=== PATIENT | male | born 1950 | race Caucasian/White ===

== ENCOUNTER → 2017-12-06 16:01 | Outpatient (CLI) | payer OTHER, SELFPAY ==
[2016-11-04 14:48] VITALS: BMI 30.9
== END ==
PROVIDERS: Family Provider Internal Medicine; PCP Internal Medicine; Visit Provider Nurse Practitioner Acute Care
DX: J06.9 Acute upper respiratory infection, unspecified (principal)
CPT/HCPCS: 87070; 87077; 87186; 87205

== ENCOUNTER → 2017-12-13 14:35 | Outpatient (CLI) | payer OTHER, SELFPAY ==
[2016-11-04 14:48] VITALS: BMI 30.9
--- NOTE | 2017-12-13 14:43 | CT_ITS ---
STUDY: CT MAXILLOFACIAL SINUSES REASON FOR EXAM: Male, 67 years old. Follow-up sinusitis RADIATION DOSAGE (If Supplied By Facility): CTDIvol = ( 33.45 ) mGy, DLP = ( 759.64 ) mGycm TECHNIQUE: The patient was scanned in a multi detector CT scanner. High resolution axial imaging was performed without the administration of intravenous contrast material. Sagittal and coronal images were reconstructed. Individualized dose optimization techniques were used for this CT. COMPARISON: April 08, 2017 FINDINGS: FRONTAL SINUSES: There is marked mucosal thickening in the right frontal sinus. There is near complete opacification of the left frontal sinus. The nasofrontal ducts are opacified. ETHMOIDAL SINUSES: There is marked opacification of numerous ethmoid air cells. MAXILLARY SINUSES: There is moderate mucosal thickening in both maxillary sinuses. There are surgical changes in the medial morrissey of both maxillary sinuses. SPHENOIDAL SINUSES: There is moderate mucosal thickening in both sphenoid sinuses. There are surgical changes in both sphenoethmoidal recesses. The middle turbinates are normal in size. The inferior turbinates are normal in size. The nasal septum is midline. The nasal airways are patent. There are no acute osseous abnormalities. There is partial opacification of the left mastoid air cells. CT/Sinus/Facial Bone IMPRESSION: There is moderate diffuse sinusitis, described above. There is marked left frontal sinusitis with near complete opacification of this sinus. The findings have increased since the prior study. There is partial opacification of the left mastoid air cells which is stable compared to the prior study, likely chronic mastoiditis. Electronically Signed: Angelita Cuellar MD at 16:26 EDT Tel Direct: [phone], Service support ,
== END ==
LOC: CT 14:36
PROVIDERS: Family Provider Internal Medicine; PCP Internal Medicine; Visit Provider Otolaryngology
DX: J32.0 Chronic maxillary sinusitis (principal); J32.1 Chronic frontal sinusitis
CPT/HCPCS: 70486

== ENCOUNTER 2017-12-17 08:58 | Day surgery (SDC) | payer OTHER, SELFPAY ==
[2016-11-04 14:48] VITALS: BMI 30.9
--- NOTE | 2017-12-13 15:10 | EKG12_ITS ---
Test Reason : PRE-OP Blood Pressure : / mmHG Vent. Rate : 087 BPM Atrial Rate : 087 BPM P-R Int : 142 ms QRS Dur : 100 ms QT Int : 376 ms P-R-T Axes : 046 031 048 degrees QTc Int : 452 ms Normal sinus rhythm Normal ECG When compared with ECG of 18-MAY-2017 15:08, No significant change was found Confirmed by CIRA LYLE ([id number]), web editor FESTUS GOLD ([id number]) on 12/16/2017 2:41:16 PM Referred By: Sam Fernando Confirmed By:CIRA LYLE
--- NOTE | 2017-12-16 12:54 | RAD_ITS ---
STUDY: X-RAY CHEST REASON FOR EXAM: Male, 67 years old. Cough. TECHNIQUE: PA and lateral views of the chest. COMPARISON: Comparison is made with prior study dated July 19, 2017. FINDINGS: Hyperinflation. Mild increased markings in the lingular segment of the left upper lobe. This has progressed as compared to prior study. This may represent early infiltrate and/or atelectasis. There is no demonstrated pleural abnormality. Normal size heart. Normal mediastinum and tawny. Normal visualized pulmonary arteries. Normal visualized aortic arch and descending thoracic aorta. Normal visualized thoracic spine. Normal visualized ribs, clavicles, and shoulders. There is no demonstrated abnormality of the visualized soft tissue structures of the upper abdomen. RAD/Chest PA and Lateral IMPRESSION: Mild increased markings in the lingular segment of the left upper lobe suggestive of atelectasis and/or possible mild infiltrate. Electronically Signed: Michael De Guzman MD at 13:24 EDT Tel [phone], Service support ,
[2017-12-16 13:50] LABS: Anion Gap 5 (5-15); BUN 10 mg/dL (7-18); Calcium,Total 8.4 mg/dL (8.5-10.1); Chloride 106 mmol/L (98-107); Creatinine, Serum 0.91 mg/dL (0.70-1.30); EST Glomerular Filtration Rate 88 mL/min (>60); Est Glom Filt Rate - Afr Amer 107 mL/min (>60); Glucose 82 mg/dL (74-106); Potassium 4.1 mmol/L (3.5-5.1); Sodium Level 140 mmol/L (136-145)
--- NOTE | 2017-12-17 | SEP_PTH ---
PATIENT: DENTON WESLEY LOC: [facility] [place] U#:[id number] AGE/SX: 67/M ROOM: RE12/17/[address]: Dr. Sam Fernando MD : 1950 BED: DIS: 12/17/2017 SPEC #: [id number] RECD: 12/17/17 15:07 STATUS: MARIANNE FRANCOIS #: [id number] ANGELO: 12/17/17 00:[address]: Sam Fernando DEPT: SURGICAL PATHOLOGY RECD BY: Ian Vazquez ENTERED: 12/17/17 15:07 SP TYPE: SEPTUM OTHR DR: Dr. Jess Curry MD Tissues: A - Nasal septum, NOS B - Ethmoid sinus, NOS C - Ethmoid sinus, NOS Procedures: Decalcification bone/plaque Surgery Specimen Level III HEADER OPERATION: Functional endoscopic sinus surgery PRE-OP DIAGNOSIS: Chronic pansinusitis, deviated nasal septum TISSUE SUBMITTED: A ? Septum and contents, B ? Right sinus contents, C ? Left sinus contents MICROSCOPIC DIAGNOSIS A. Nasal septum and perisinus contents, excision: Fragments of bone and cartilage with reactive and reparative change. Fragments of respiratory epithelial tissue with mild chronic inflammation and focal acute inflammation. B. Right sinus contents, excision: Consistent with chronic sinusitis. Fragments of bone with no pathologic change. C. Left sinus contents, excision: Cartilaginous tissue with no significant pathologic change. Consistent with chronic sinusitis. Fragments of bone with no pathologic change. AM:andreia 12/22/17 MICROSCOPIC DESCRIPTION Slides are reviewed. GROSS DESCRIPTION A - Received in fixative is one container labeled with the patient's name and designated septum and contents. The specimen consists of multiple fragments of cartilage and bone that in aggregate measure 3 x 2.5 x 0.3 cm. The entire specimen is submitted in one cassette after decalcification. B - Received in fixative is one container labeled with the patient's name and designated right sinus contents. The specimen consists of multiple fragments of toro soft tissue including fragments of turbinate and bone that in aggregate measure 7.5 x 3 x 0.3 cm. The entire specimen is submitted in three cassettes after decalcification. C - Received in fixative is one container labeled with the patient's name and designated left sinus contents. The specimen consists of multiple fragments of toro soft tissue including fragments of turbinate and bone that in aggregate measure 7.5 x 3 x 0.3 cm. The entire specimen is submitted in three cassettes after decalcification. / SJ:andreia 12/17/17 TC:2 CPT: 88056 x3, 08167 x3
[2017-12-17 09:09] VITALS: BP 170/95; PULSE 75; RESP 18; TEMP 36.6; O2SAT 100; BMI 30.8
[2017-12-17 09:55] LABS: Hematocrit 43.6 % (40-54); Hemoglobin 14.4 g/dl (13.0-16.5); Mean Corpuscular Volume 90.8 fL (80-94); Mean Platelet Vol. 8.8 fl (6.2-12.0); Platelet Count 303 K/mm3 (150-450); RBC Distribution Width CV 13.8 % (11.6-14.6); RBC Distribution Width SD 45.6 fl (35.1-43.9); White Blood Count 7.4 K/mm3 (4.4-11.0)
[2017-12-17 09:58] LABS: Scan Indicated on CBC? Y/N NO
[2017-12-17 10:14] VITALS: PULSE 82; RESP 16
[2017-12-17] MEDS: Ipratropium/Albuterol Sulfate 3 ML AMPUL.NEB INHALATION (10:14)
[2017-12-17] MEDS: Lidocaine 4% 50 ML Bottle (11:20)
[2017-12-17] MEDS: Oxymetazoline 0.05% 1 SPRAY SPRAY.BTL 15 SPRAY (11:20)
[2017-12-17] MEDS: Bacitracin 500 UNITS/GM PACKET (11:44)
[2017-12-17 12:53] VITALS: BP 144/96; BP 170/95; PULSE 84; RESP 18; TEMP 36.4; O2SAT 95
--- NOTE | 2017-12-17 12:53 | PCM.OPRPT ---
Problem List (1) DNS (deviated nasal septum) Status: Chronic (2) Chronic maxillary sinusitis Status: Chronic (3) Chronic sphenoidal sinusitis Status: Chronic (4) Chronic ethmoidal sinusitis Status: Chronic (5) Polypoid sinus degeneration Status: Chronic Report of Operation Date of Procedure: 12/17/17 Pre-Operative Diagnosis: chronic sinusitis, deviated nasal septum Post-Operative Diagnosis: same Surgery/Procedure Performed:: Septoplasty, bilateral endoscopic total ethmoidectomy, sphenoidotomies Description of Surgical Findings:: Geoff is a 67-year-old male who present for evaluation of chronic sinusitis postnasal drip cough and chest congestion recalcitrant to appropriate antibiotic and pulmonary management. Examination showed significant scarring and polyposis consistent with previous sinus surgery as well as deviation of nasal septum resulting in obstruction of the sinus drainage pathways and revision surgery was offered. He was eager to proceed. The risks, alternatives, potential benefits, and complications were discussed at length and any questions answered to the patient and/or caregiver's satisfaction. Witnessed informed consent was obtained in the office, and the patient and/or caregiver was agreeable to proceed. Procedure went as follows: The patient was identified in the preoperative holding and brought to the operating room, was placed under general anesthesia and intubated. When appropriate anesthesia was obtained, the navigational head gear was placed and confirmed to be operational in accordance with the airframe and powerplant mechanic's directions. Pledgets soaked in a 50-50 mixture of oxymetazoline and 4% topical lidocaine were placed to decongest the nasal mucosa. These were then removed and beginning on the left side using a 0? endoscope the nasal cavity examined. The insertion of the middle turbinate and uncinate process was then injected with 1% lidocaine with 100,000 epinephrine for a 2 cc total, and a similar injection was then carried on the contralateral side. The nasal septum was then injected beginning on the left side with 1% lidocaine with 100,000 epinephrine for a total of 6 cc. The pledgets were then removed and the left nasal cavity examined. There was noted to be significant nasal septal deviation to the left with a posterior spur. Using a 15 blade scalpel, a hemitransfixion incision was then made in the left side and using the Mariam elevator a subperichondrial/periosteal flap was elevated. The septum was then transected at the bony cartilaginous junction and similar flap raised on the contralateral side. Using a Jordy-Chou forceps the septum was then sharply transected superiorly and the deviated portions removed with a Teresita forceps. The hemitransfixion incision was then closed with interrupted 4-0 chromic gut suture followed by a 4-0 plain quilting suture to reapproximate the mucosal flaps. Upon returning to the left side the middle turbinate was medialized with a Page elevator. This was densely degenerated with polyps. The ethmoid bulla was then entered and total ethmoidectomy was then carried out working posteriorly to anterior where extensive scarring and polyps were encountered. Any polyps, scar, and mucous secretions were removed. The sphenoid sinus ostium was then identified and opened widely with any polyps, secretions, or other debris removed. Pledgets soaked in oxymetazoline were then placed for hemostasis and attention turned to the contralateral side. Similar procedure and findings were then carried out. The right sphenoid ostium was completely scarred closed and this was opened widely and joined with the posterior ethmoid air cells. Given the extensive degeneration of the middle turbinates, these were then resected 3/4 of their tissue to reduce risk fro repeat scarring and obstruction. The purulent material from the right maxillary sinus was aspirated for culture and sensitivities. Floseal hemostatic agent was then applied. Marinelli splints coated with Bacitracin ointment were then applied to each nasal cavity and secured at the columella with a single 3-0 Prolene suture. An NG tube was then placed to decompress the stomach and the patient returned to anesthesia, revived and extubated having tolerated the procedure well. Type of Anesthesia:: General Anesthesiologist: Sam Aly Specimen's removed: septal and sinus contents, culture right maxillary sinus Drains: none Estimated Blood Loss (mL): 200 mL Fluids Replaced: 2000 mL Grafts/Implants Used: Marinelli splints - Complications none - Admit VTE Documentation VTE Present on Admission: No VTE Mechan Device Prophylaxis: SCD's VTE Pharm Prophylaxis ordered?: No
[2017-12-17 13:00] VITALS: BP 144/92; BP 170/95; PULSE 83; RESP 18; O2SAT 94
--- NOTE | 2017-12-17 13:05 | OP.PCM_ITS ---
Problem List (1) DNS (deviated nasal septum) Status: Chronic (2) Chronic maxillary sinusitis Status: Chronic (3) Chronic sphenoidal sinusitis Status: Chronic (4) Chronic ethmoidal sinusitis Status: Chronic (5) Polypoid sinus degeneration Status: Chronic Report of Operation Date of Procedure: 12/17/17 Pre-Operative Diagnosis: chronic sinusitis, deviated nasal septum Post-Operative Diagnosis: same Surgery/Procedure Performed:: Septoplasty, bilateral endoscopic total ethmoidectomy, sphenoidotomies Description of Surgical Findings:: Geoff is a 67-year-old male who present for evaluation of chronic sinusitis postnasal drip cough and chest congestion recalcitrant to appropriate antibiotic and pulmonary management. Examination showed significant scarring and polyposis consistent with previous sinus surgery as well as deviation of nasal septum resulting in obstruction of the sinus drainage pathways and revision surgery was offered. He was eager to proceed. The risks, alternatives , potential benefits, and complications were discussed at length and any questions answered to the patient and/or caregiver's satisfaction. Witnessed informed consent was obtained in the office, and the patient and/or caregiver was agreeable to proceed. Procedure went as follows: The patient was identified in the preoperative holding and brought to the operating room, was placed under general anesthesia and intubated. When appropriate anesthesia was obtained, the navigational head gear was placed and confirmed to be operational in accordance with the green ware caster's directions. Pledgets soaked in a 50-50 mixture of oxymetazoline and 4% topical lidocaine were placed to decongest the nasal mucosa. These were then removed and beginning on the left side using a 0? endoscope the nasal cavity examined. The insertion of the middle turbinate and uncinate process was then injected with 1 % lidocaine with 100,000 epinephrine for a 2 cc total, and a similar injection was then carried on the contralateral side. The nasal septum was then injected beginning on the left side with 1% lidocaine with 100,000 epinephrine for a total of 6 cc. The pledgets were then removed and the left nasal cavity examined. There was noted to be significant nasal septal deviation to the left with a posterior spur. Using a 15 blade scalpel, a hemitransfixion incision was then made in the left side and using the Mariam elevator a subperichondrial/ periosteal flap was elevated. The septum was then transected at the bony cartilaginous junction and similar flap raised on the contralateral side. Using a Jordy-Chou forceps the septum was then sharply transected superiorly and the deviated portions removed with a Teresita forceps. The hemitransfixion incision was then closed with interrupted 4-0 chromic gut suture followed by a 4-0 plain quilting suture to reapproximate the mucosal flaps. Upon returning to the left side the middle turbinate was medialized with a Mariam elevator. This was densely degenerated with polyps. The ethmoid bulla was then entered and total ethmoidectomy was then carried out working posteriorly to anterior where extensive scarring and polyps were encountered. Any polyps, scar, and mucous secretions were removed. The sphenoid sinus ostium was then identified and opened widely with any polyps, secretions, or other debris removed. Pledgets soaked in oxymetazoline were then placed for hemostasis and attention turned to the contralateral side. Similar procedure and findings were then carried out. The right sphenoid ostium was completely scarred closed and this was opened widely and joined with the posterior ethmoid air cells. Given the extensive degeneration of the middle turbinates, these were then resected 3/4 of their tissue to reduce risk fro repeat scarring and obstruction. The purulent material from the right maxillary sinus was aspirated for culture and sensitivities. Floseal hemostatic agent was then applied. Marinelli splints coated with Bacitracin ointment were then applied to each nasal cavity and secured at the columella with a single 3-0 Prolene suture. An NG tube was then placed to decompress the stomach and the patient returned to anesthesia, revived and extubated having tolerated the procedure well. Type of Anesthesia:: General Anesthesiologist: Sam Aly Specimen's removed: septal and sinus contents, culture right maxillary sinus Drains: none Estimated Blood Loss (mL): 200 mL Fluids Replaced: 2000 mL Grafts/Implants Used: Marinelli splints - Complications none - Admit VTE Documentation VTE Present on Admission: No VTE Mechan Device Prophylaxis: SCD's VTE Pharm Prophylaxis ordered?: No
--- NOTE | 2017-12-17 13:07 | PCM.DC ---
- Discharge Diagnoses Current Active Problems: Current Active and Chronic Problems (Last Reviewed 12/06/17 @ 14:37 by Ratna Ray) DNS (deviated nasal septum) (Chronic) Chronic maxillary sinusitis (Chronic) Chronic sphenoidal sinusitis (Chronic) Chronic ethmoidal sinusitis (Chronic) Polypoid sinus degeneration (Chronic) You will use the following diet at home:: No restrictions Discharge Activity: Return to Normal Activity, May not drive while taking narcotic pain medications. Call your doctor if your incision/area has: Continuous Slow Oozing Call your doctor if you observe: Fever of 101 or Higher, Uncontrolled pain Allergies/Adverse Reactions: Allergies No Known Allergies Allergy (Verified 12/15/17 14:42) Medications to take at Discharge RX: Albuterol IH (ProAir) [Proair Hfa] 1 puff INHALATION Q4H PRN PRN 11/03/16 RX: Aspirin E.C. [Ecotrin] 81 mg PO DAILY@0800 11/03/16 RX: Carvedilol [Coreg (Beta Luis Daniel)] 3.125 mg PO BID 11/03/16 RX: Clopidogrel Bisulfate [Plavix] 75 mg PO DAILY 11/03/16 RX: Losartan Potassium [Cozaar] 25 mg PO DAILY 11/03/16 acetaminophen 325 mg tablet 650 mg PO Q4H PRN 09/13/17 guaifenesin ER 600 mg tablet, extended release 12 hr 600 mg PO Q12H PRN 09/13/17 ipratropium-albuterol 0.5 mg-3 mg(2.5 mg base)/3 mL nebulization soln 3 ml INHALATION Q4H PRN #180 ml 10/19/17 lansoprazole 30 mg capsule,delayed release 30 mg PO BID #60 cap 10/19/17 Primary Care Physician: Jess Curry MD [Primary Care Provider] - Please Follow Up With: Sam Fernando MD When: 5 days
[2017-12-17 13:15] VITALS: BP 152/95; BP 170/95; PULSE 77; RESP 18; TEMP 36.6; O2SAT 94
[2017-12-17 13:42] VITALS: BP 170/95
== END 2017-12-17 13:50 | disposition home or self-care (01) ==
LOC: SDC 08:58 → AC 08:59
PROVIDERS: Anesthesiology; Family Provider Internal Medicine; PCP Internal Medicine; Visit Provider Otolaryngology
PROC: (CPT 30520; principal; 2017-12-17 09:55)
DX: J34.2 Deviated nasal septum (principal); J32.0 Chronic maxillary sinusitis; J32.3 Chronic sphenoidal sinusitis; J32.2 Chronic ethmoidal sinusitis; J33.1 Polypoid sinus degeneration; Z87.891 Personal history of nicotine dependence; I25.10 Atherosclerotic heart disease of native coronary artery without angina pectoris; I27.20 Pulmonary hypertension, unspecified; I25.2 Old myocardial infarction; I10 Essential (primary) hypertension; Z95.5 Presence of coronary angioplasty implant and graft; G47.30 Sleep apnea, unspecified; J44.9 Chronic obstructive pulmonary disease, unspecified; J06.9 Acute upper respiratory infection, unspecified; B19.20 Unspecified viral hepatitis C without hepatic coma; H91.90 Unspecified hearing loss, unspecified ear; E66.9 Obesity, unspecified; Z68.30 Body mass index [BMI] 30.0-30.9, adult; Z79.82 Long term (current) use of aspirin; Z79.01 Long term (current) use of anticoagulants; Z79.899 Other long term (current) drug therapy
CPT/HCPCS: 00160; 30520; 31257; 36415; 71046; 80048; 85027; 87070; 87075; 87077; 87102; 87186; 87205; 87206; 88304; 88305; 88311; 93005; 94640; J7120; J2405

== ENCOUNTER → 2018-01-22 11:25 | Outpatient (CLI) | payer OTHER, SELFPAY ==
[2016-11-04 14:48] VITALS: BMI 30.9
[2018-01-22 11:44] LABS: Absolute Lymphocyte Count 1.25 X10^3/ul (0.83-4.51); Absolute Neutrophil Count 7.2 X10^3/uL (2.0-7.7); Basophil# 0.04 X10^3/uL; Basophil% 0.4 % (0-1); Eosinophil# 0.44 X10^3/uL; Eosinophils% 4.8 % (0-5); Hematocrit 42.9 % (40-54); Hemoglobin 13.8 g/dl (13.0-16.5); Lymphocyte # 1.25 X10^3/ul (4.0); Lymphocyte % 13.5 % (19-41); Mean Corp Hgb Conc 32.2 g/gl (32-36); Mean Corpuscular Hgb 29.2 pg (27.0-32.0); Mean Corpuscular Volume 90.7 fL (80-94); Mean Platelet Vol. 8.6 fl (6.2-12.0); Monocyte# 0.35 X10^3/uL; Monocyte% 3.8 % (0-10); Neutrophil # 7.17 X10^3/uL (2.7-7.7); Neutrophil % 77.4 % (47-70); POSITIVE COUNT NO; POSITIVE DIFFERENTIAL NO; POSITIVE MORPHOLOGY NO; Platelet Count 299 K/mm3 (150-450); RBC Distribution Width CV 13.8 % (11.6-14.6); RBC Distribution Width SD 45.9 fl (35.1-43.9); Red Blood Count 4.73 M/mm3 (4.6-6.2); White Blood Count 9.3 K/mm3 (4.4-11.0)
[2018-01-28 14:08] LABS: Aspirgillus flavus Negative (Neg:<1:1); Aspirgillus fumigatus Negative (Neg:<1:1); Aspirgillus niger Negative (Neg:<1:1)
[2018-01-28 14:21] LABS: Immunoglobulin E 291 IU/mL (0-100)
== END ==
PROVIDERS: Family Provider Internal Medicine; PCP Internal Medicine; Visit Provider Internal Medicine Critical Care Medicine
DX: J45.41 Moderate persistent asthma with (acute) exacerbation (principal); J01.01 Acute recurrent maxillary sinusitis
CPT/HCPCS: 36415; 82785; 85025; 86606; 87070; 87205

== ENCOUNTER → 2018-01-31 17:24 | Outpatient (CLI) | payer OTHER, SELFPAY ==
[2016-11-04 14:48] VITALS: BMI 30.9
--- NOTE | 2018-01-31 17:30 | CT_ITS ---
STUDY: CT CHEST WITHOUT CONTRAST REASON FOR EXAM: Male, 67 years old. Cough. RADIATION DOSAGE (If Supplied By Facility): CTDIvol = ( 13.94 ) mGy, DLP = ( 499.11 ) mGycm TECHNIQUE: Transaxial imaging was performed without the administration of intravenous contrast material. Individualized dose optimization techniques were used for this CT. COMPARISON: Chest x-ray December 16, 2017. July 19, 2017. FINDINGS: Bronchiectasis involving all the lobes of the lung with most prominent involvement of the lower lobes, right middle lobe and lingular segment. Lungs are hyperinflated. No focal infiltrates or effusions. No pneumothorax. The heart is not enlarged. At least one cardiac stent is visualized. Coronary artery calcifications. 1.4 cm precarinal lymph node with a fatty hilum. Normal hilar regions. Normal unenhanced pulmonary arteries. Normal aorta arch and descending thoracic aorta. Normal osseous structures. Hepatic steatosis. CT/Chest without Contrast IMPRESSION: COPD. Diffuse bronchiectasis with most prominent involvement of the lower lobes, right middle lobe and lingular segment. Fatty liver. Electronically Signed: Nehemias Aguiar MD at 10:36 EDT , Service support ,
== END ==
PROVIDERS: Family Provider Internal Medicine; PCP Internal Medicine; Visit Provider Internal Medicine Critical Care Medicine
DX: J45.41 Moderate persistent asthma with (acute) exacerbation (principal)
CPT/HCPCS: 71250

== ENCOUNTER → 2018-03-30 13:45 | Outpatient (CLI) | payer OTHER, MEDICARE, SELFPAY ==
[2016-11-04 14:48] VITALS: BMI 30.9
--- NOTE | 2018-03-30 13:47 | RAD_ITS ---
STUDY: X-RAY CHEST REASON FOR EXAM: Male, 67 years old. Shortness of breath. TECHNIQUE: PA and lateral views of the chest. COMPARISON: December 16, 2017 FINDINGS: The lungs remain hyperinflated. There is stable mild tenting of the right hemidiaphragm. There are stable left basilar streaky opacities which may reflect atelectasis and/or scarring. Normal size heart. Normal mediastinum and tawny. Normal visualized pulmonary arteries. Normal visualized aortic arch and descending thoracic aorta. Normal visualized thoracic spine. Normal visualized ribs, clavicles, and shoulders. There is no demonstrated abnormality of the visualized soft tissue structures of the upper abdomen. RAD/Chest PA and Lateral IMPRESSION: Stable examination demonstrating no acute cardiopulmonary process. Electronically Signed: Laurie Uribe MD at 14:03 EDT Tel , Service support ,
== END ==
PROVIDERS: Family Provider Internal Medicine; PCP Internal Medicine; Visit Provider Internal Medicine Critical Care Medicine
DX: J45.909 Unspecified asthma, uncomplicated (principal)
CPT/HCPCS: 71046

== ENCOUNTER → 2018-05-09 16:50 | Outpatient (CLI) | payer BC, MEDICARE, SELFPAY ==
[2016-11-04 14:48] VITALS: BMI 30.9
[2018-05-13 03:06] LABS: Alternaria alternata 2.58 kU/L (Class III); Bermuda Grass <0.10 kU/L (Class 0); Bluegrass, Kentucky 1.21 kU/L (Class II); Cat Hair/Dander, Standard <0.10 kU/L (Class 0); D farinae Mite 4.05 kU/L (Class IV); D pteronyssinus 3.94 kU/L (Class IV); Dog Epithelia <0.10 kU/L (Class 0); Elm, American White <0.10 kU/L (Class 0); Oak, White <0.10 kU/L (Class 0); Plantain, English <0.10 kU/L (Class 0); Ragweed, Short/Common <0.10 kU/L (Class 0)
[2018-05-13 11:33] LABS: Mouse Urine <0.10 kU/L (Class 0)
== END ==
PROVIDERS: Family Provider Internal Medicine; PCP Internal Medicine; Visit Provider Nurse Practitioner Acute Care
DX: J45.50 Severe persistent asthma, uncomplicated (principal)
CPT/HCPCS: 36415; 86003

== ENCOUNTER → 2018-10-28 15:12 | Outpatient (CLI) | payer MEDICARE, BC, SELFPAY ==
[2016-11-04 14:48] VITALS: BMI 30.9
[2018-10-28 14:25] VITALS: BMI 32.4
[2018-10-28 16:24] LABS: Absolute Lymphocyte Count 1.28 X10^3/ul (0.83-4.51); Absolute Neutrophil Count 7.5 X10^3/uL (2.0-7.7); Basophil# 0.02 X10^3/uL; Basophil% 0.2 % (0-1); Eosinophil# 0.08 X10^3/uL; Eosinophils% 0.9 % (0-5); Hemoglobin 14.7 g/dl (13.0-16.5); Lymphocyte # 1.28 X10^3/ul (4.0); Lymphocyte % 13.8 % (19-41); Mean Corp Hgb Conc 32.7 g/gl (32-36); Mean Corpuscular Hgb 29.8 pg (27.0-32.0); Mean Corpuscular Volume 91.3 fL (80-94); Mean Platelet Vol. 9.2 fl (6.2-12.0); Monocyte# 0.36 X10^3/uL; Monocyte% 3.9 % (0-10); Neutrophil # 7.46 X10^3/uL (2.7-7.7); Neutrophil % 80.7 % (47-70); Platelet Count 336 K/mm3 (150-450); RBC Distribution Width CV 14.2 % (11.6-14.6); RBC Distribution Width SD 46.4 fl (35.1-43.9); Red Blood Count 4.93 M/mm3 (4.6-6.2); White Blood Count 9.3 K/mm3 (4.4-11.0)
[2018-10-28 16:30] LABS: POSITIVE COUNT NO; POSITIVE DIFFERENTIAL NO; POSITIVE MORPHOLOGY NO
[2018-10-28 16:56] LABS: Anion Gap 8 (5-15); BUN 20 mg/dL (7-18); BUN/Creat Ratio 18.7 RATIO (10-20); Calcium,Total 9.4 mg/dL (8.5-10.1); Chloride 106 mmol/L (98-107); Creatinine, Serum 1.07 mg/dL (0.70-1.30); EST Glomerular Filtration Rate 73 mL/min (>60); Est Glom Filt Rate - Afr Amer 88 mL/min (>60); Glucose 130 mg/dL (74-106); Potassium 4.8 mmol/L (3.5-5.1); Sodium Level 142 mmol/L (136-145)
[2018-10-28 17:01] LABS: BNP,B-Type NATRIURETIC PEPTIDE 10.9 pg/mL (0-100)
== END ==
PROVIDERS: Family Provider Internal Medicine; PCP Internal Medicine; Referring Provider Nurse Practitioner Family; Visit Provider Nurse Practitioner Family
DX: I25.10 Atherosclerotic heart disease of native coronary artery without angina pectoris (principal); J45.50 Severe persistent asthma, uncomplicated; R07.9 Chest pain, unspecified; R06.09 Other forms of dyspnea
CPT/HCPCS: 36415; 80048; 83880; 85025

== ENCOUNTER → 2018-10-31 10:51 | Outpatient (CLI) | payer MEDICARE, BC, SELFPAY ==
[2016-11-04 14:48] VITALS: BMI 30.9
[2018-10-31 10:12] VITALS: BMI 32.6
--- NOTE | 2018-10-31 10:59 | RAD_ITS ---
STUDY: X-RAY CHEST REASON FOR EXAM: Male, 68 years old. Shortness of breath and cough TECHNIQUE: Frontal and lateral views of the chest. COMPARISON: None. FINDINGS: Left basilar atelectasis. Small left pleural effusion. Normal size heart. Normal mediastinum and tawny. Normal visualized pulmonary arteries. Normal visualized aortic arch and descending thoracic aorta. Normal visualized thoracic spine. Normal visualized ribs, clavicles, and shoulders. There is no demonstrated abnormality of the visualized soft tissue structures of the upper abdomen. RAD/Chest PA and Lateral IMPRESSION: Left basilar atelectasis. Small left pleural effusion. Electronically Signed: Tomas Senior MD at 13:04 EST Tel , Service support ,
== END ==
PROVIDERS: Family Provider Internal Medicine; PCP Internal Medicine; Referring Provider Internal Medicine; Visit Provider Nurse Practitioner Acute Care
DX: R06.02 Shortness of breath (principal)
CPT/HCPCS: 71046

== ENCOUNTER → 2018-11-03 13:13 | Outpatient (CLI) | payer MEDICARE, BC, SELFPAY ==
[2016-11-04 14:48] VITALS: BMI 30.9
[2018-10-31 10:12] VITALS: BMI 32.6
--- NOTE | 2018-11-03 13:17 | STEWCON_ITS ---
Reason For Study: CHEST PAIN Stress Results Protocol: Stress Echocardiogram Maximum Predicted HR: 152 bpm Target HR: 129 bpm % Maximum Predicted HR: 85 % DurationHeart Rate Stage (mm:ss) (bpm) BP Comment BASELINE 80 148/90DID NOT TAKE MEDS, DILUTED DEFINITY 3 CC USED SHIVA PROTOCOL- STAGE 1 3:00 110 160/86 SHIVA PROTOCOL- STAGE 2 2:03 129 168/90LEG FATIGUE, DYSPNEA RECOVERY 90 138/84 Stress Duration: 5:03 mm:ss Maximum Stress HR: 129 bpm Baseline Echocardiogram Findings The estimated ejection fraction is 65 %. Stress Echo Wall motion Data Resting WM Intermediate WM Stress WM Resting Wall Motion Wall Motion Stress No regional wall motion Mid-inferoseptal : Mildly abnormalities noted. hypokinetic. EKG Data The baseline ECG displays normal sinus rhythm. The patient exercised according to the regular Shiva protocol for a total duration of 5:03. The maximum heart rate attained was 129 beats per minute. This was 84% of maximum predicted heart rate. The patient exercised into stage 2 of the Shiva protocol. During stress, there were no ST or T wave changes noted to suggest ischemia. No arrhythmias noted. Interpretation Summary The estimated ejection fraction is 65 %. Mid-inferoseptal : Mildly hypokinetic Abnormal, adequate, treadmill echocardiogram. Positive for ischemia by echocardiographic criteria. Below average exercise capacity for age. Appropriate exercise blood pressure response to exercise. The patient appeared to develop mid inferior septal hypokinesis at peak exercise. In addition, there appeared to be subtle mid anterior apical hypokinesis as well. Poor echo windows requiring Definity agent. Test terminated due to leg discomfort and dyspnea which may be a anginal equivalent. Final LVEF of 65%. No complications. Ordering Physician: Rene Dai Referring Physician: Rene Dai Performed By: Christina Crespo RDCS
== END ==
PROVIDERS: Family Provider Internal Medicine; PCP Internal Medicine; Referring Provider Nurse Practitioner Family; Visit Provider Nurse Practitioner Family
DX: I25.10 Atherosclerotic heart disease of native coronary artery without angina pectoris (principal); R07.9 Chest pain, unspecified; R06.09 Other forms of dyspnea
CPT/HCPCS: 93017; 93350; Q9957; A4216; C8928

== ENCOUNTER 2018-11-09 09:04 | Day surgery (SDC) | payer MEDICARE, BC, SELFPAY ==
[2016-11-04 14:48] VITALS: BMI 30.9
[2018-10-31 10:12] VITALS: BMI 32.6
[2018-11-08 08:46] VITALS: BMI 32.4
[2018-11-09] VITALS (24 sets, daily range): BP systolic 101–168; BP diastolic 61–96; PULSE 69–88; RESP 11–20; TEMP 36.8–37.3; O2SAT 93–97; BMI 33.2; BMI 33.0
--- NOTE | 2018-11-09 11:37 | CL.I_ITS ---
Patient Name: DENTON WESLEY Study Date: 11/09/2018 Performing: Abelino Colin MD Ht: 72.04 inches 183 cm : 1950 Wt: 238.1 lbs 108 kg Age: 68 Gender: male BSA: 2.3 PROCEDURE(S) PERFORMED [id number] W OR WO PTCA, SINGLE CORONARY ARTERY [id number] W OR WO PTCA, SINGLE CORONARY ARTERY CLINICAL PROFILE AND CO-MORBIDITIES Indications: Worsening Angina, Stable Known CAD Heart Failure: None Stress/Imaging Stress Echocardiogram: Yes Result: Positive Intermediate Risk Stress Echocardiogra m: Positive Intermediate Risk Angina Classification Anginal Classification w/in 2 Weeks: CCS III CAD Presentations: Unstable angina. Comorbidities/Risk Factors: Hypertension Dyslipidemia Prior PCI CONCLUSIONS Double vessel CAD of the mid LAD and mid PDA. Non obstructive coronary arteries Normal LV size, wall motion,and systolic function Successful PTCA/IRENE mid LAD with a 2.5 x 24 Promus Synergy stent, post dilated with a 3.0 x 8 and a 3 .5 x 8 NC balloon; 85%-->0%, no dissection. Successful PTCA/IRENE mid PDA with a 2.25 x 16 Promus Synergy stent; 85%-->0%, no dissection. RECOMMENDATIONS Referred for immediate PCI Highly recommend quitting all tobacco products Follow up with primary reservation manager Risk factor modification ASA Indefinitley Plavix for at least 12 months Routine post interventional care Refer for Outpatient Cardiac Rehab Manual sheath removal per protocol Follow up with Dr. Colin Successful Mynx closure of RFA. DESCRIPTION OF PROCEDURE The patient arrived to the procedure lab. The risks and benefits of the procedure as well as a full d escription of our services here and lack of surgical backup were fully explained to the patient and/o r their significant other prior to the catheterization. The Timeout was completed, verifying the tejinder ect patient and procedure. The patient's procedural site was prepped and draped in the usual fashion. Local anesthetic was given subcutaneously to right groin region with Lidocaine 2%. Using a modified Seldinger technique, arterial access was obtained via the right femoral artery, a 4Fr sheath was inse rted. Left Coronary Artery selective angiography was performed in multiple views using a 4 Fr. JL5 c atheter. Right Coronary Artery selective angiography was then performed in multiple views using a 4 F r. 3DRC catheter. Left Ventriculography was performed in MARTIN projection using a 4 Fr. Pigtail cathete r. LV to AO pullback pressures were then recordedThe images were reviewed and options discussed. A decision was then made to proceed with an Intervention, IVUS or other adjunct procedure. Arterial sheath was exchanged for a 6 Fr Sheath. EBU 3.75 Guide catheter was inserted and engaged into the LCA. Arterial sheath was exchanged for a 6 Fr 55cm Sheath. BMW Guide wire was advanced to t he LAD. BMW Guide wire was advanced to the 1st Diagonal. 2x12 Emerge Balloon catheter was inserted. B alloon catheter was advanced across lesion in the LAD, mid. PTCA balloon inflated at 10 atms for 10 s ecs. Angiogram performed post balloon dilatation. 2.5x24 Synergy Drug Eluting stent was inserted. Nathaniel g Eluting stent was advanced across the lesion in the LAD, mid. 3x8 NC Emerge Balloon catheter was in serted. Balloon catheter was inserted post stent. Angiogram performed post stent deployment. 3.5x8 NC Emerge Balloon catheter was inserted. Balloon catheter was inserted post stent. Angiogram performed post balloon dilatation. HS II Guide catheter was inserted and engaged into the RCA. BMW Guide wire w as advanced to the Right PDA. 2x12 Emerge Balloon catheter was inserted. Balloon catheter was advanced across lesion in the posterior descending, mid. PTCA balloon inflated at 6 atms for 12 s ecs. PTCA balloon inflated at 8 atms for 10 secs. 2.25x16 Synergy Drug Eluting stent was inserted. Dr ug Eluting stent was advanced across the lesion in the posterior descending, mid. Angiogram performed post stent deployment. Contrast was injected through the sheath and the Right Iliac and Femoral lissette ry were assessed for possible closure device. The arterial sheath was pulled and a Mynx closure clayton ce was deployed for hemostasis CORONARY ANGIOGRAPHY DOMINANCE: Right Dominant LEFT HEART ASSESSMENT Left Ventricular Ejection Fraction: by LV Gram 65 % Normal Left Ventricular systolic function Normal LV wall motion LEFT MAIN: Angiographically normal LEFT ANTERIOR DECENDING ARTERY: MID LAD: 85 % Stenosis, Instent restenosis 30 % CIRCUMFLEX ARTERY: Mild luminal irregularities less than 30% RIGHT CORONARY ARTERY: Mild luminal irregularities less than 30% RT PLV: Previously placed stent is patent RT PDA: Mid - 85 % Stenosis INTERVENTION INFORMATION LESION SITE: LAD (Mid) Lesion Complexity: High/C, lesion at bifurcation: Yes, thrombus present: No, lesion length: 24 mm, cu lprit lesion: Yes Pre intervention PEDRO flow: 3 Post Stenosis: 0 % Post intervention PEDRO flow: 3 Lesion Devices: Medtronic 6 Fr EBU3.75 100cm Guide Catheter Andre .014 BMW [place] Straight 190cm Andre .014 BMW [place] Straight 190cm Lai Sci EMERGE MR 2.00x12 BALLOON Lai Sci Synergy MR IRENE 2.50x24 Lai Sci NC EMERGE MR 3.00x08 BALLOON Lai Sci NC EMERGE MR 3.50x08 BALLOON LESION SITE: RT PDA (Mid) Lesion Complexity: Non-High/Non-C, lesion at bifurcation: No, thrombus present: No, lesion length: 16 mm, culprit lesion: No Pre Stenosis: 75 % Pre intervention PEDRO flow: 3 PROCEDURE: Drug Eluting Stent with pre dilatation. Post Stenosis: 0 % Post intervention PEDRO flow: 3 Lesion Devices: Andre .014 BMW [place] Straight 190cm Lai Sci EMERGE MR 2.00x12 BALLOON Medtronic 6 Fr HSII 100cm Guide Catheter Lai Sci Synergy MR IRENE 2.25x16 COMPLICATIONS No Complications PROCEDURE MEDICATIONS Versed 1 mg IV Oxygen: 2 L/min via nasal cannula Heparin 6000 unit(s) IV 11/09/2018 10:31:28 Nitro 200 mcg IC 11/09/2018 10:25:10 Nitro 200 mcg IC 11/09/2018 10:25:10 Nitro 200 mcg IC 11/09/2018 10:40:18 Nitro 200 mcg IC 11/09/2018 10:53:53 Nitro 200 mcg IC 11/09/2018 11:00:29 Nitro 200 mcg IC 11/09/2018 11:05:03 SUMMARY OF HEMODYNAMIC DATA Time AIR REST ECG 09:37:25 AO 157/76 (107) SA 10:21:18 LV 137/-20, 9 10:29:45 LV 134/-22, 8 10:29:51 LVp 142/-25, 7 10:30:03 AOp 141/71 (98) 10:30:09 Signed By Abelino Colin MD On 11/09/2018 11:35:40 AM Signed By Abelino Colin MD On 11/09/2018 11:35:33 AM Abelino Colin MD
--- NOTE | 2018-11-09 12:12 | EKG12_ITS ---
Test Reason : POST STENT Blood Pressure : / mmHG Vent. Rate : 077 BPM Atrial Rate : 077 BPM P-R Int : 154 ms QRS Dur : 098 ms QT Int : 402 ms P-R-T Axes : 061 030 033 degrees QTc Int : 454 ms Normal sinus rhythm Normal ECG When compared with ECG of 13-DEC-2017 15:26, No significant change was found Confirmed by KELLI GIMENEZ, WILLIS ([id number]), editorial specialist FESTUS GOLD ([id number]) on 11/14/2018 11:27:17 AM Referred By: Abelino Colin Confirmed By:WILLIS PEREIRA MD
[2018-11-09] MEDS: 0.9% Normal Saline 1,000 ML 150 ML IV (12:15)
--- NOTE | 2018-11-09 13:35 | CRPHASE1 ---
Patient Data/Charges Bullion Weigher:: Abelino Colin Admit Date:: 11/09/18 Phase I Charge:: Level I - Education Risk Factors/Lifestyle Smoking Status: Former smoker Hx Hypertension: Yes - on meds Hx Dyslipidemia: Yes - on meds Height: 1.83 m Weight:: 110.677 kg BMI: 33.0 ETOH: No Caffeine: Yes Substance Abuse: No Family History: Family History (Last Reviewed 10/31/18 @ 11:23 by LENNOX Johnson) Brother CAD (coronary artery disease) Mother Cancer Family History: Heart Disease Past Cardiac Illness: Previous PCI w/Stent Phase I Education Given On:: [place], Nutrition, Antiplatelet medication Issues Affecting Care:: None Knowledge of Condition:: Yes Hospital Course Cardiac Cath Date:: 11/09/18 Medical/Surgical History [place]:: No Angina:: Yes Pulmonary:: Yes COPD:: Yes SUJEY:: Yes Hypertension:: Yes Dyslipidemia:: Yes PTCA:: Yes - Discharge/Home/Social Eval Marital Status:
[2018-11-09 13:37] LABS: ACT Activated Clotting Time 180 sec (74-137)
[2018-11-09] MEDS: Ipratropium/Albuterol Sulfate 3 ML AMPUL.NEB INHALATION (13:38)
--- NOTE | 2018-11-09 13:39 | CRPHASE1_ITS ---
Patient Data/Charges Criminal Research Specialist:: Abelino Colin Admit Date:: 11/09/18 Phase I Charge:: Level I - Education Risk Factors/Lifestyle Smoking Status: Former smoker Hx Hypertension: Yes - on meds Hx Dyslipidemia: Yes - on meds Height: 1.83 m Weight:: 110.677 kg BMI: 33.0 ETOH: No Caffeine: Yes Substance Abuse: No Family History: Family History (Last Reviewed 10/31/18 @ 11:23 by LENNOX Johnson) Brother CAD (coronary artery disease) Mother Cancer Family History: Heart Disease Past Cardiac Illness: Previous PCI w/Stent Phase I Education Given On:: [place], Nutrition, Antiplatelet medication Issues Affecting Care:: None Knowledge of Condition:: Yes Hospital Course Cardiac Cath Date:: 11/09/18 Medical/Surgical History [place]:: No Angina:: Yes Pulmonary:: Yes COPD:: Yes SUJEY:: Yes Hypertension:: Yes Dyslipidemia:: Yes PTCA:: Yes - Discharge/Home/Social Eval Marital Status:
--- NOTE | 2018-11-09 13:39 | CRPH1.INSTRU ---
General Education CAD and cardiac anatomy and function:: Patient communicates acknowledgment Explanation of diagnoses and procedures:: Patient communicates acknowledgment Sign/Symptoms of [place]:: Patient communicates acknowledgment Antiplatelet therapy: Patient communicates acknowledgment Proper use of NTG-SL: Patient communicates acknowledgment Emergency procedures and activation of EMS: Patient communicates acknowledgment Compliance of all prescribed medications: Patient communicates acknowledgment Smoking Patient Nicotine/Smoking Risk Factors Are:: Non-smoker Dyslipidemia Recommendations Include:: Lipid profile not available Overweight/Obesity Patient Overweight/Obesity Risk Factors Are:: Obesity - > or = 30 Overweight/Obesity:: Patient communicates acknowledgment Hypertension Recommendations Include:: Maintain BP <130/85 Hypertension:: Patient communicates acknowledgment Heart Disease Patient Heart Disease Risk Factors Are:: Family history of heart disease < 65 years old, Previous cardiac event Heart Disease Response Code:: Patient communicates acknowledgment Diabetes Patient Diabetes Risk Factors Are:: No documented hx of diabetes Metabolic Syndrome Patient Metabolic Syndrome Risk Factors Are [3 of 5]:: Waist circumference > 35 [female] or 40 [male], Hypertension Metabolic Syndrome Response Code:: Patient communicates acknowledgment Sedentary Recommendations Include:: Benefits of regular exercise Sedentary Response Code:: Patient communicates acknowledgment Stress Patient Stress Risk Factors Are:: Patient denies stress as a risk factor
--- NOTE | 2018-11-09 13:44 | CRPH1.INST_ITS ---
General Education CAD and cardiac anatomy and function:: Patient communicates acknowledgment Explanation of diagnoses and procedures:: Patient communicates acknowledgment Sign/Symptoms of [place]:: Patient communicates acknowledgment Antiplatelet therapy: Patient communicates acknowledgment Proper use of NTG-SL: Patient communicates acknowledgment Emergency procedures and activation of EMS: Patient communicates acknowledgment Compliance of all prescribed medications: Patient communicates acknowledgment Smoking Patient Nicotine/Smoking Risk Factors Are:: Non-smoker Dyslipidemia Recommendations Include:: Lipid profile not available Overweight/Obesity Patient Overweight/Obesity Risk Factors Are:: Obesity - > or = 30 Overweight/Obesity:: Patient communicates acknowledgment Hypertension Recommendations Include:: Maintain BP <130/85 Hypertension:: Patient communicates acknowledgment Heart Disease Patient Heart Disease Risk Factors Are:: Family history of heart disease < 65 years old, Previous cardiac event Heart Disease Response Code:: Patient communicates acknowledgment Diabetes Patient Diabetes Risk Factors Are:: No documented hx of diabetes Metabolic Syndrome Patient Metabolic Syndrome Risk Factors Are [3 of 5]:: Waist circumference > 35 [female] or 40 [male], Hypertension Metabolic Syndrome Response Code:: Patient communicates acknowledgment Sedentary Recommendations Include:: Benefits of regular exercise Sedentary Response Code:: Patient communicates acknowledgment Stress Patient Stress Risk Factors Are:: Patient denies stress as a risk factor
[2018-11-09] MEDS: Montelukast 10 MG Tablet PO (21:15)
[2018-11-09] MEDS: Carvedilol 3.125 MG TABLET PO (21:15)
[2018-11-09] MEDS: Pantoprazole Sodium 40 MG Tablet PO (21:15)
[2018-11-10] VITALS (13 sets, daily range): BP systolic 110–143; BP diastolic 51–84; PULSE 67–83; RESP 12–17; TEMP 36.4–36.9; O2SAT 94–100
[2018-11-10 04:50] LABS: Hematocrit 41.5 % (40-54); Hemoglobin 13.2 g/dl (13.0-16.5); Mean Corp Hgb Conc 31.8 g/gl (32-36); Mean Corpuscular Hgb 29.5 pg (27.0-32.0); Mean Corpuscular Volume 92.6 fL (80-94); Platelet Count 251 K/mm3 (150-450); RBC Distribution Width SD 46.2 fl (35.1-43.9); Red Blood Count 4.48 M/mm3 (4.6-6.2); White Blood Count 7.6 K/mm3 (4.4-11.0)
[2018-11-10 05:01] LABS: Scan Indicated on CBC? Y/N NO
[2018-11-10 05:07] LABS: Anion Gap 9 (5-15); BUN 15 mg/dL (7-18); BUN/Creat Ratio 19.5 RATIO (10-20); Calcium,Total 8.4 mg/dL (8.5-10.1); Chloride 111 mmol/L (98-107); Cholesterol 192 mg/dL (200); Creatinine, Serum 0.77 mg/dL (0.70-1.30); EST Glomerular Filtration Rate 107 mL/min (>60); Est Glom Filt Rate - Afr Amer 129 mL/min (>60); Glucose 139 mg/dL (74-106); High Density Lipoprotein 40 mg/dL; Potassium 4.1 mmol/L (3.5-5.1); Sodium Level 144 mmol/L (136-145); Triglycerides 117 mg/dL; Very Low Density Lipoprotein 23 mg/dL (5-40)
--- NOTE | 2018-11-10 06:33 | PCM.DC.CCA ---
Discharge Diet: Low fat/ Low Cholesterol Discharge Activity: Return to Normal Activity May shower in (days): 1 - No tub baths for 5 days May resume sexual activity in: 1-2 weeks Lifting Restrictions: Do not lift anything greater than 10 pounds for 3 days Call your doctor if your incision/area has: Continuous Slow Oozing, Sudden Increased Bleeding, Increased Pain/ Swelling, Increased Redness, Foul Smelling Discharge, Swelling at the incision site Call your doctor if you observe: Fever of 101 or Higher, Shortness of breath, Chest pain Remove Dressing in (days):: 1 Cleanse incision/area with: Soap & Water Additional Instructions: You will remain on Plavix for at least one year. If anyone asks you to stop this, please call the [facility] first, . You will keep already schedule appointment on 11/30/2018 at 3:00 PM with Rene Mcmillan Nurse Practitioner. We will discuss need for cholesterol lowering medication and readiness to begin cardiac rehab. You may be contacted by cardiac rehab before this appointment. If any questions or concerns arise, please call [facility] at [phone] Allergies/Adverse Reactions: Allergies No Known Allergies Allergy (Verified 10/31/18 10:04) Medications to take at Discharge Albuterol IH (ProAir) [Proair Hfa] 1 puff INHALATION Q4H PRN PRN 11/03/16 Aspirin E.C. [Ecotrin] 81 mg PO DAILY@0800 11/03/16 acetaminophen 325 mg tablet 650 mg PO Q4H PRN 09/13/17 guaifenesin ER 600 mg tablet, extended release 12 hr 600 mg PO Q12H PRN 09/13/17 lansoprazole 30 mg capsule,delayed release 30 mg PO BID #60 cap 10/19/17 montelukast 10 mg tablet 10 mg PO QPM #30 tab 02/03/18 carvedilol 3.125 mg tablet 3.125 mg PO BID #90 tab 04/05/18 clopidogrel 75 mg tablet 75 mg PO DAILY #90 tab 04/05/18 losartan 25 mg tablet 25 mg PO DAILY #90 tab 04/05/18 cyclobenzaprine 10 mg tablet 10 mg PO TID PRN #30 tab 05/25/18 benzonatate 200 mg capsule 200 mg PO TID PRN #90 cap 01/18/19 isosorbide mononitrate ER 30 mg tablet,extended release 24 hr 30 mg PO DAILY #30 tab 10/28/18 nitroglycerin 0.4 mg sublingual tablet 0.4 mg SUBLINGUAL Q5-15M PRN #25 tab 10/28/18 budesonide-formoterol HFA 160 mcg-4.5 mcg/actuation aerosol inhaler 2 puff INHALATION BID 10/31/18 ipratropium-albuterol 0.5 mg-3 mg(2.5 mg base)/3 mL nebulization soln 3 ml INHALATION Q4H PRN #180 ml 10/31/18 Primary Care Physician: Jess Curry MD [Primary Care Provider] - Test Results: Test results from this visit will be discussed in further detail at your follow-up appointment, if applicable. Please Follow Up With: Rene Mcmillan When: 11/30/2018 at 3:00 PM Proposed Discharge Date: 11/10/18 Cardiac Rehabilitation Info Cardiac Rehabilitation Program Information: Cardiac Rehabilitation is important for patients like you who are recovering from a heart problem. Cardiac rehabilitation programs are recognized as integral to the continued care of the patient with coronary heart disease. The cardiac rehabilitation program is designed to optimize a patient's physical, psychological, and social functioning. Health career services officer work in cardiac rehabilitation programs and assist you with getting the treatments you need to get stronger and healthier - like exercise, healthy eating habits, and medications. Cardiac rehabilitation has been show to help people with heart problems live longer and have better life enjoyment than people who do not go to cardiac rehabilitation. Please contact the Cardiac Rehabilitation Program at [facility] at in two weeks if you have not heard from them.
--- NOTE | 2018-11-10 06:37 | DCINST_ITS ---
Discharge Diet: Low fat/ Low Cholesterol Discharge Activity: Return to Normal Activity May shower in (days): 1 - No tub baths for 5 days May resume sexual activity in: 1-2 weeks Lifting Restrictions: Do not lift anything greater than 10 pounds for 3 days Call your doctor if your incision/area has: Continuous Slow Oozing, Sudden Increased Bleeding, Increased Pain/ Swelling, Increased Redness, Foul Smelling Discharge, Swelling at the incision site Call your doctor if you observe: Fever of 101 or Higher, Shortness of breath, Chest pain Remove Dressing in (days):: 1 Cleanse incision/area with: Soap & Water Additional Instructions: You will remain on Plavix for at least one year. If anyone asks you to stop this, please call the [facility] first, . You will keep already schedule appointment on 11/30/2018 at 3:00 PM with Rene Mcmillan Nurse Practitioner. We will discuss need for cholesterol lowering medication and readiness to begin cardiac rehab. You may be contacted by cardiac rehab before this appointment. If any questions or concerns arise, please call [facility] at [phone] Allergies/Adverse Reactions: Allergies No Known Allergies Allergy (Verified 10/31/18 10:04) Medications to take at Discharge Albuterol IH (ProAir) [Proair Hfa] 1 puff INHALATION Q4H PRN PRN 11/03/16 Aspirin E.C. [Ecotrin] 81 mg PO DAILY@0800 11/03/16 acetaminophen 325 mg tablet 650 mg PO Q4H PRN 09/13/17 guaifenesin ER 600 mg tablet, extended release 12 hr 600 mg PO Q12H PRN 09/13/17 lansoprazole 30 mg capsule,delayed release 30 mg PO BID #60 cap 10/19/17 montelukast 10 mg tablet 10 mg PO QPM #30 tab 02/03/18 carvedilol 3.125 mg tablet 3.125 mg PO BID #90 tab 04/05/18 clopidogrel 75 mg tablet 75 mg PO DAILY #90 tab 04/05/18 losartan 25 mg tablet 25 mg PO DAILY #90 tab 04/05/18 cyclobenzaprine 10 mg tablet 10 mg PO TID PRN #30 tab 05/25/18 benzonatate 200 mg capsule 200 mg PO TID PRN #90 cap 01/18/19 isosorbide mononitrate ER 30 mg tablet,extended release 24 hr 30 mg PO DAILY #30 tab 10/28/18 nitroglycerin 0.4 mg sublingual tablet 0.4 mg SUBLINGUAL Q5-15M PRN #25 tab 10/28/18 budesonide-formoterol HFA 160 mcg-4.5 mcg/actuation aerosol inhaler 2 puff INHALATION BID 10/31/18 ipratropium-albuterol 0.5 mg-3 mg(2.5 mg base)/3 mL nebulization soln 3 ml INHALATION Q4H PRN #180 ml 10/31/18 Primary Care Physician: Jess Curry MD [Primary Care Provider] - Test Results: Test results from this visit will be discussed in further detail at your follow- up appointment, if applicable. Please Follow Up With: Rene Mcmillan When: 11/30/2018 at 3:00 PM Proposed Discharge Date: 11/10/18 Cardiac Rehabilitation Info Cardiac Rehabilitation Program Information: Cardiac Rehabilitation is important for patients like you who are recovering from a heart problem. Cardiac rehabilitation programs are recognized as integral to the continued care of the patient with coronary heart disease. The cardiac rehabilitation program is designed to optimize a patient's physical, psychological, and social functioning. Health home health care provider work in cardiac rehabilitation programs and assist you with getting the treatments you need to get stronger and healthier - like exercise, healthy eating habits, and medications. Cardiac rehabilitation has been show to help people with heart problems live longer and have better life enjoyment than people who do not go to cardiac rehabilitation. Please contact the Cardiac Rehabilitation Program at [facility] at in two weeks if you have not heard from them.
[2018-11-10] MEDS: Albuterol 2.5 MG/3 ML VIAL.NEB. INHALATION (07:38)
[2018-11-10] MEDS: Aspirin E.C. 81 MG Tablet PO (08:45)
[2018-11-10] MEDS: Isosorbide Mononitrate 30 MG Tablet PO (08:45)
[2018-11-10] MEDS: Carvedilol 3.125 MG TABLET PO (08:45)
[2018-11-10] MEDS: Losartan Potassium 25 MG Tablet PO (08:45)
[2018-11-10] MEDS: Pantoprazole Sodium 40 MG Tablet PO (08:45)
[2018-11-10] MEDS: Clopidogrel Bisulfate 75 MG Tablet PO (08:45)
--- NOTE | 2018-11-10 09:14 | PCM.PN.CARD ---
Subjectve: Patient doing very well, no 24-hour events. Telemetry negative. Right groin is clean/dry/intact without evidence of thrills, bruits or hematoma. Creatinine and hemoglobin within nominal limits. EKG shows normal sinus rhythm, no acute changes. Objective: Vital Signs Temp Pulse Resp BP Pulse Ox 97.6 F L 79 17 127/82 H 96 11/10/18 08:00 11/10/18 08:00 11/10/18 08:00 11/10/18 08:00 11/10/18 08:00 Oxygen Delivery Method Room Air Weight: 240 lb 8.389 oz Body Mass Index (BMI) 33.2 Intake and Output for Last 24 Hours 11/08/18 11/09/18 11/10/18 23:59 23:59 23:59 Intake Total 500 / 500 1100 / 1100 Output Total 700 / 700 1725 / 1725 Balance -200 / -200 -625 / -625 General: Awake, Alert, Oriented x 3 HEENT: PERRL, EOMI, Sclera Non Icteric Neck: Supple, Good ROM, No Lymph Node Enlargement Lungs: Clear to auscultation Cardiovascular: Regular Rhythm, Normal S1, Normal S2, No Murmurs, No Rubs, No Gallops Vascular: No Carotid Bruits, Normal Femoral Pulses, Normal Radial Pulses, Normal Dorsalis Pedal Pulse, Normal Posterior Tibial Pulses Abdomen: Bowel Sounds Present, Soft, Non Tender, No HSM, No Organomegaly Extremities: No Cyanosis, No Clubbing, No edema Neurological: No Focal Motor or Sensory Deficit 11/10/18 04:35: WBC 7.6, RBC 4.48 L, Hgb 13.2, Hct 41.5, MCV 92.6, MCH 29.5, MCHC 31.8 L, RDW 14.0, RDW Differential 46.2 H, Plt Count 251, MPV 9.0 11/10/18 04:35: Sodium 144, Potassium 4.1, Chloride 111 H, Carbon Dioxide 24.0, Anion Gap 9, BUN 15, Creatinine 0.77, Est GFR (MDRD) Af Amer 129, Est GFR (MDRD) Non-Af 107, BUN/Creatinine Ratio 19.5, Glucose 139 H, Calcium 8.4 L, Triglycerides 117, Cholesterol 192, LDL Cholesterol 129, VLDL Cholesterol 23, HDL Cholesterol 40 Rhythm: EKG: ECHO: Stress Test: Cardiac Cath: PCI: CT Surgery: Holter monitor: EPS: PPM: CXR: Chest CT Scan: Medical Necessity - Tobacco Use Smoking Status: Former smoker Assessment/Plan 1. Coronary artery disease: Patient status post angioplasty and drug-eluting stenting to mid LAD, and mid PDA without complications. I recommended to continue baby aspirin, Plavix, and antihypertensive medications as outlined in the MRF. I recommended the patient start cardiac rehab once his groin is fully healed. 2. Hyperlipidemia: The patient is unable to take statins due to side effects. We will attempt to manage his antilipid therapy as an outpatient. Repeat lipid profile after cardiac rehab is completed. 3. Patient may be discharged home and follow-up with Dr. Colin. Code Visit Inpatient E&M: 92157 Subs Hosp L2
--- NOTE | 2018-11-10 10:00 | EKG12_ITS ---
Test Reason : AM Blood Pressure : / mmHG Vent. Rate : 075 BPM Atrial Rate : 075 BPM P-R Int : 160 ms QRS Dur : 098 ms QT Int : 392 ms P-R-T Axes : 056 022 054 degrees QTc Int : 437 ms Normal sinus rhythm Normal ECG When compared with ECG of 09-NOV-2018 11:42, MANUAL COMPARISON REQUIRED, DATA IS UNCONFIRMED Confirmed by KELLI GIMENEZ, WILLIS ([id number]), editor publications FESTUS GOLD ([id number]) on 11/17/2018 1:08:56 PM Referred By: Abelino Colin Confirmed By:WILLIS PEREIRA MD
== END 2018-11-10 10:05 | disposition home or self-care (01) ==
LOC: CLSP 09:05 → ICU 10:52
PROVIDERS: Family Provider Internal Medicine; PCP Internal Medicine; Referring Provider Internal Medicine Cardiovascular Disease; Visit Provider Internal Medicine Cardiovascular Disease
DX: I25.110 Atherosclerotic heart disease of native coronary artery with unstable angina pectoris (principal); I10 Essential (primary) hypertension; E78.2 Mixed hyperlipidemia; J44.9 Chronic obstructive pulmonary disease, unspecified; B19.20 Unspecified viral hepatitis C without hepatic coma; M19.90 Unspecified osteoarthritis, unspecified site; E66.9 Obesity, unspecified; Z68.32 Body mass index [BMI] 32.0-32.9, adult; Z79.82 Long term (current) use of aspirin; Z79.01 Long term (current) use of anticoagulants; Z79.899 Other long term (current) drug therapy; Z87.891 Personal history of nicotine dependence
CPT/HCPCS: 80048; 80061; 85027; 85347; 92928; 93005; 93458; 94640; 99152; 99153; C1760; J7030; J7040; Q9967; C1725; C1769; C1874; C1887; C1894; C9600

== ENCOUNTER → 2018-11-22 11:54 | Outpatient (CLI) | payer MEDICARE, BC, SELFPAY ==
[2018-11-09 11:39] VITALS: BMI 33.2
[2018-11-09 13:38] VITALS: BMI 33.0
[2018-11-14 15:02] VITALS: BMI 33.2
--- NOTE | 2018-11-22 12:57 | PCM.CR.HP2 ---
CR - History & Physical - General Arrival date:: 11/22/18 Arrival time:: 12:00 Date of Referral:: 11/10/18 Date of CR Evaluation:: 11/22/18 Referring Physician: Dr. Abelino Colin Primary Diagnosis: PTCA with coronary stetn placement - History of Present Cardiac Event Onset Date: Enter Onset Date of cardiac illnesses in Comment field below Current stable Angina Pectoris:: Yes - 11/09/2018 PTCA or coronary stenting:: Yes - 11/09/2018; previous stented 11/04/2016 at [facility], then sent to [place] 03/2016 Type of Symptoms:: recurring chest pain, seen doctors and failed stress test. He chose to do the heart cath and subsequently ended up with two stents. Total of 4 coronary stents now. Interventions with present event:: heart cath stress echo Were there any complications?: none - Medications Home Medications: Ambulatory Orders Medication Instructions Recorded Albuterol IH (ProAir) [Proair Hfa] 1 puff INHALATION Q4H PRN PRN 11/03/16 Aspirin E.C. [Ecotrin] 81 mg PO DAILY@0800 11/03/16 acetaminophen 325 mg tablet 650 mg PO Q4H PRN 09/13/17 guaifenesin ER 600 mg tablet, 600 mg PO Q12H PRN 09/13/17 extended release 12 hr lansoprazole 30 mg capsule,delayed 30 mg PO BID #60 cap 10/19/17 release montelukast 10 mg tablet 10 mg PO QPM #30 tab 02/03/18 carvedilol 3.125 mg tablet 3.125 mg PO BID #90 tab 04/05/18 clopidogrel 75 mg tablet 75 mg PO DAILY #90 tab 04/05/18 losartan 25 mg tablet 25 mg PO DAILY #90 tab 04/05/18 cyclobenzaprine 10 mg tablet 10 mg PO TID PRN #30 tab 05/25/18 benzonatate 200 mg capsule 200 mg PO TID PRN #90 cap 10/21/18 nitroglycerin 0.4 mg sublingual 0.4 mg SUBLINGUAL Q5-15M PRN #25 10/28/18 tablet tab budesonide-formoterol HFA 160 2 puff INHALATION BID 10/31/18 mcg-4.5 mcg/actuation aerosol inhaler ipratropium-albuterol 0.5 mg-3 3 ml INHALATION Q4H PRN #180 ml 10/31/18 mg(2.5 mg base)/3 mL nebulization soln - Allergies Allergies/Adverse Reactions: Allergies No Known Allergies Allergy (Verified 11/14/18 14:58) - Sleep Disorder Evaluation Hx of Sleep Apnea: Yes Do you snore loudly (louder than talking or can be heard through closed doors)?: Yes - was told years ago had sleep apnea but never followed up with it. Do you often feel tired/ fatigued/ sleepy during daytime?: No Has anyone observed you stop breathing during sleep?: No History of Hypertension (for STOP score): Yes STOP Results: Positive Advanced Directives - Advanced Directives Power of Flight Attendant: No Living Will: No Advance Directives Information Provided: No Advance Directives on File: No DNR Order?:: No - MOLST See MOLST form: No Past Medical History - Past Medical Illness Medical History: Past Medical History (Last Updated 11/10/18 @ 06:39 by Rene Dai LINING FOLDER-C) Shortness of breath (Acute) R06.02 Severe persistent asthma (Acute) J45.50 Atherosclerosis of coronary artery of [place] heart without angina pectoris (Chronic) I25.10 PCI-IRENE mid LAD 2.5 X 24 Promus Synergy; PCI-IRENE mid PDA 2.25 X 16 Promus Synergy 11/09/18 PCI-IRENE-LAD 2.25 x 32 Promus Synergy 11/04/16 PCI-IRENE-PLB 2.25 x 20 mm Synergy Monorail and POBA PDA 03/19/2016 Successful PTCA/IRENE mid LAD with a 2.5 x 24 Promus Synergy stent, post dilated with a 3.0 x 8 and a 3.5 x 8 NC balloon; 85%-->0%, no dissection on 11/09/2018 Successful PTCA/IRENE mid PDA with a 2.25 x 16 Promus Synergy stent; 85%-->0%, no dissection on 11/09/2018 DNS (deviated nasal septum) (Chronic) J34.2 Chronic maxillary sinusitis (Chronic) J32.0 Chronic sphenoidal sinusitis (Chronic) J32.3 Chronic ethmoidal sinusitis (Chronic) 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 He has responded well to Levaquin and a prednisone taper in the past. We will treat him with 7 days of Levaquin and a prednisone taper over 12 days. He has been advised that his symptoms will likely take 2 days on the medication before he notices improvement. He has been advised to contact the office if he does not seem some type of improvement after 48 hours. Keep previously scheduled routine follow-up, he believes it is in December. He has also been encouraged to contact the office if symptoms worsen or new symptoms present. 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 Hepatitis C (Chronic) B19.20 Shoulder joint pain (Chronic) M25.519 Osteoarthritis (Chronic) M19.90 Abnormal electrocardiogram [ECG] [EKG] (Inactive) R94.31 - Past Surgical History Surgical History: Past Surgical History (Last Updated 11/22/18 @ 13:07 by Marcelo Mcfarland, CRITICAL CARE RN, RECRUITER COORDINATOR, BS) History of coronary artery stent placement (Chronic) Onset Date: 11/09/18 Z95.5 PCI-IRENE mid LAD 2.5 X 24 Promus Synergy; PCI-IRENE mid PDA 2.25 X 16 Promus Synergy 11/09/18 PCI-IRENE-LAD 2.25 x 32 Promus Synergy 11/04/16 PCI-IRENE-PLB 2.25 x 20 mm Synergy Monorail and POBA PDA 03/19/2016 Successful PTCA/IRENE mid LAD with a 2.5 x 24 Promus Synergy stent, post dilated with a 3.0 x 8 and a 3.5 x 8 NC balloon; 85%-->0%, no dissection on 11/09/2018 Successful PTCA/IRENE mid PDA with a 2.25 x 16 Promus Synergy stent; 85%-->0%, no dissection on 11/09/2018 History of cholecystectomy Z90.49 Status post correction of deviated nasal septum Z98.890 12/2017 - Family History Summary Family History: Family History (Last Reviewed 10/31/18 @ 11:23 by LENNOX Johnson) Brother CAD (coronary artery disease) Mother Cancer ovarian Social History - Smoking History Smoking Status: Former smoker Years Smokin Packs Smoked per Day: 1.5 Hx Smoking Cessation Date: 2013 Hx Tobacco Use: Yes Hx Smoking Exposure: No - Alcohol Use Alcohol Usage: Yes - beer every now and then - Substance Abuse Hx Substance Use: No - Occupation Occupation (List type of work in comments):: Employed, Retired - Hobbies, Recreation, Social Activities Hobbies: Sports - Golfer!, Other Recreational Activities: I am able to engage in all my recreational activities - struggle wiht some of them still due to the lack of energy. Social Environment - Status Marital Status: - Current Living Arrangements Living Environment:: Spouse - Children How many children do you have?: 5 Do any of your children live nearby?: Yes - Oldest daughter in [place], [place], [place], [place]. - Safety Do you feel safe in your surroundings?: Yes - Assistance Do you need any assistance at home?: none Review of Systems - Review of Systems Hints: Right click = Denies (Slash). Left click = Reports (Cachil Dehe) Review of Present Symptoms: Reports: Shortness of Breath with Exertion - patient also has some COPD somponent that contributes to the shortness of breath., Fatigue, Appetite - Normal, Sleep - Normal. Denies: Shortness of Breath at Rest, Operative Discomfort, Angina, Dizziness/Lightheadedness, Heart Arrhythmia/Irregularities, Appetite - Special Diet - not really., Sexual Changes - Pain Is Patient Pain Free?: No Pain Location: chest - chest discomfort from alot of recent coughing. Pain Level: 0/10 Risk Factor Assessment - Chief Complaint Chief Complaint: Patient presents to cardiac rehab today follwoing recent PCI intervention. Patient had previously been referrred to CR in the past and was unable to participate due to work. Since he has had these last two stents pplaced he decided he should do CR. - Vital Signs Temperature: 98.7 F Respiratory Rate: 14 Pulse Ox: 96 Blood Pressure: 142/78 - Pulse Pulse Rate: 72 - Hypertension How long have you been treated?: since [id number] On medication(s)?: yes Blood Pressure Sitting - Left Arm: 142/78 - Blood Cholesterol/Lipids HDL Cholesterol (mg/dL) Goal = less than 40 mg/dL: 41 LDL Cholesterol (mg/dL) Goal = less than 70 mg/dL: 88 Triglycerides (mg/dL) Goal = less than 150 mg/dL: 110 - Diabetes Nutrition Referral for Diabetes: No - Obesity Height: 6 ft Weight:: 237 lb Weight in Pounds: 237.0 lbs Weight Source: Standing Scale Body Mass Index (BMI): 32.1 - Physical Inactivity Physical Inactivity: Physically demanding job - alot of physical activity at work/ walking. - Risk Stratification Risk Guidelines: Lowest Risk: Risk Factor for Smoking, Risk Factor for Dyslipidemia, Risk Factor for Diabetes, Risk Factor for Sedentary Lifestyle, Risk Factor for Depression, Moderate Risk: Risk Factor for Hypertension, Risk Factor for Sedentary Lifestyle, Highest Risk: Risk Factor for Obesity - For Smoking Smoking Risk Guidelines: Smoking Low Risk: None or quit greater than 6 months ago. Smoking Moderate Risk: Smoker or quit 6 months or less ago. Smoking High Risk: Smoker - For Dyslipidemia Dyslipidemia Risk Guidelines: Low Risk: Moderate Risk: High Risk: 15-25% fat 25.1-29% fat >/= 30% fat. <7% sat fat 7-9% sat fat >9% sat fat. <150 mg chol 150-299 mg chol >/= 300 mg chol. LDL <100 LDL 100-129 LDL >/= 130. Chol/HDL ratio <5.0 Chol/HDL ratio 5.0-6.0 Chol/HDL ratio >6.0. Triglycerides <100 Triglycerides 100-149 Triglycerides >/= 150 - For Diabetes Mellitus Diabetes Risk Guidelines: Diabetes Low Risk: HgA1c <6.5% and/or FBG <120. Diabetes Moderate Risk: HgA1c 6.6-7.9% and/or FBG 120-180. Diabetes High Risk: HgA1c >/= 8% and/or FBG >180 - For Obesity/Overweight Obesity/Overweight Risk Guidelines: Obesity Low Risk: BMI <25.0. Obesity Moderate Risk: BMI 25-29.9. Obesity High Risk: BMI >/= 30.0 - For Hypertension Hypertension Risk Guidelines: Hypertension Low Risk: Systolic <120 and Diastolic <80. Hypertension Moderate Risk: Systolic 120-139 and Diastolic 80-89. Hypertension High Risk: Systolic >/= 140 and Diastolic >/= 90 - For Sedentary Lifestyle Sedentary Lifestyle Risk Guidelines: Sedentary Lifestyle Low Risk: >/= 1,500 kcal/week. Sedentary Lifestyle Moderate Risk: 700-1,499 kcal/week. Sedentary Lifestyle High Risk: < 700 kcal/week - For Depression Depression Risk Guidelines: Depression Low Risk: Not clinically depressed. Depression Moderate Risk: Mildly depressed. Depression High Risk: Clinically depressed - Family History Family History: Family History (Last Reviewed 10/31/18 @ 11:23 by LENNOX Johnson) Brother CAD (coronary artery disease) Mother Cancer Motivation - Motivation to Participate On a scale of 1 to 10, how prepared are you to commit to attending program?: 9 - 9 to a 10 What do you see as barriers to successfully being able to complete the program?: none What do you see as the benefits of succesfully completing the program? In other words, what do you hope to get out of participating in the program?: like to have more stamina, not being so worn out. Lose some weight Are there issues you are dealing with that will interfere with completing the program?: Perhaps the COPD. Do you have a spouse or signficant other, family or friends who will help support you to complete the program?: Yes.
--- NOTE | 2018-11-22 12:58 | PCM.CR.ITP ---
General Information - General Information Admitting Diagnosis: PCI w/ stents - Education/Goals Barriers to Learning: None Individual Counseling: Initial Assessment: Abnormal Cholesterol Levels, High Blood Pressure, Overweight/Obesity Cardiac Rehabilitation Goals: 1. Maintain the individual as the primary focus of care. 2. To improve the patient's quality of life. 3. Identification of cardiac risk factors and provide cardiac risk factor management. 4. Enhance the psychosocial status of the patient. 5. Reconditioning enough to allow the patient to resume customary activities. 6. Control symptoms of cardiac disease Scale for measuring improvement of personal goals: Enter appropriate number in Comments. 2 = Unchanged. 3 = Slightly Better. 4 = Moderate Improvement. 5 = Met my Goal Personal Goals: Initial Assessment: Improve energy level, Participate in home exercise program, Improve muscle strength and endurance, Improve diet and eating habits (eat healthier), Control risk factors (learn risk factor modification) Exercise - Initial Assessment - Visit Date of Eval: 11/22/18 Session #:: 0 - Start on - Stages of Change Stages of Change:: Action - Exercise Prescription Mode:: Treadmill, Rower, Airdyne, NuStep Angina with exercise?: No Target Heart Rate:: 106-114 - Hypertension Do any of the following apply?: Yes, Medication Resting Blood Pressure:: 142/78 - Intervention Home Exercise/Activity Goal:: Sitting Time <3 hrs/day - Education Goals:: Warm-up, RPE JANENE Scale, S/S, Safe Exercise, Self-Monitoring - Exercise Program Goals Exercise Program Goals: Aerobic Activity >30 min Nutrition - Initial Assessment - Program Goals Nutrition Program Goals: LDL <70. Total Cholesterol <200. HDL >45. Triglycerides <150. HgbA1C <7%. BMI <25 - Visit Date of Assessment:: 11/22/18 - Stages of Change Stages of Change:: Action - Diabetes Diabetes:: No - Weight Management Height: 6 ft Weight:: 236 lb - Intervention Referral to dietitian:: Yes Referral to Diabetic Clinic:: No Will attend diet classes:: Yes - Education Gave educational materials for:: Healthy eating Tobacco - Initial Assessment - Program Goals Tobacco Program Goals: Complete smoking cessation. Attend education classes. Improve Knowledge Test score - Stage of Change Stages of Change:: Action - Learning Barriers Learning Barriers: Ready to Learn - Family Support Do you have family support?: Yes - Tobacco Use Tobacco Use: Non-smoker How long ago did you quit using tobacco products?: Greater than or equal to 6 months ago Do you use smokeless tobacco?: No - Intervention Smoking Cessation Referral:: No Education Schedule Given:: Yes - Education Gave educational material for:: Coronary artery disease, Risk factors, Sexuality, Medical compliance, Cardiac A&P, Angina signs & symptoms Psychosocial - Initial Assess - Target Goals Target Goals: Assess presence or absence of depression. Using a valid screening tool, maximizes coping skills. Positive support system - Stages of Change Stages of Change:: Action - Psychosocial Test Tool Used:: HANDS Depression Questionnaire - Intervention PS - Interventions: Yes Attend Stress Management Classes, No Referral to Mental Health, No Referral to [facility] Case Management, No Referral to Physician, No Uses Stress Management Skills - Education Gave educational materials for:: Coping techniques, Signs & symptoms of depression, Stress management, Relaxation techniques - Patient/Program Goal Preventative Medication(s):: Aspirin, Clopidogrel, Beta ari, Statin/lipid - Assistive Devices Assistive Devices:: None Fall Risk Assessed:: Yes Patient Health Questionnaire Initial Assessment 1. Little interest or pleasure in doing things: Not at all 2. Feeling down, depressed, or hopeless: Not at all 3. Trouble falling or staying asleep, or sleeping too much: Not at all 4. Feeling tired or having little energy: Nearly every day 5. Poor appetite or overeating: More than half the days 6. Feeling bad about yourself -- or that you are a failure or have let yourself or your family down: Not at all 7. Trouble concentrating on things, such as reading the newspaper or watching television: Not at all 8. Moving or speaking so slowly that other people could have noticed. Or the opposite - being so fidgety or restless that you have been moving around a lot more than usual: Not at all 9. Thoughts that you would be better off , or of hurting yourself in some way: Not at all How difficult have these problems made it for you to do your work, take care of things at home, or get along with other people?: Somewhat difficult Total Score: 5 ROSANA-Q SV Test - Statements CAD is a disease of the arteries in the heart: False Examples of risk factors for heart disease: True Angina is chest pain or discomfort: True The benefits of resistance training include: True Eating more meat and dairy products: False Anti-platelet medications such as aspirin are important: True The only effective way to manage stress: False An exercise warm-up slowly increases heart rate: I Don't Know Prepared, processed foods usually have high sodium: True Depression is common after a heart attack: I Don't Know The statin medications lower cholesterol: True To control blood pressure, lower the amount of sodium: True If someone gets chest discomfort during walking: False Transfats are partially hydrogenated vegetable oils: True Sleep apnea that is not treated increases the risk: False To control cholesterol, one should become a vegetarian: False Someone knows if he/she is exercising at the right level: I Don't Know Diabetes cannot be prevented with exercise & health eating: False Stress is a large risk for heart attack: True A diet that can help lower blood pressure is rich in: True - Total Score Total Correct Responses: 17 Self-Efficacy Initial Assessment We would like to know how confident you are in doing certain activities. Please select your confidence level for:: Select your confidence level for the following using the scale 1-10 where 1 is not at all confident and 10 is totally confident. Your score is the average of all 6 responses. Fatigue: How confident are you that you can keep the fatigue caused by your disease from interfering with the things you want to do? Select Number: 5 Physical Discomfort or Pain: How confident are you that you can keep the physical discomfort or pain of your disease from interfering with the things you want to do? Select Number: 7 Emotional Distress: How confident are you that you can keep the emotional distress caused by your disease from interfering with the things you want to do? Select Number: 10 Other Symptoms or Health Problems: How confident are you that you can keep other symptoms or health problems from interfering with the things you want to do? Select Number: 5 Different Tasks and Activities: How confident are you that you can do the different tasks and activities needed to manage your health condition so as to reduce your need to see a doctor? Select Number: 7 Medication: How confident are you that you can do things other than just taking medication to reduce how much your illness affects your everyday life? Select Number: 7 Total Score:: 6 Nutrition Survey - Nutrition Survey Instructions Scoring Instructions: Scoring is as follows: Yes = 1 points. No = 0 point. Patient score that is >/=12 is considered to be at potential nutritional risk and could benefit from a referral to a registered dietitian. - Nutrition Survey Initial Have you lost >10 lbs over the past 2 months without trying?: No Are you following a special diet at home for diabetes, low fat, or low salt?: No Are you interested in meeting with a dietitian for help understanding your diet?: Yes Do you eat less than 3 meals a day?: Yes Do you eat fatty meats (houser, sausage, ribs, etc), fried foods, desserts, large amounts of salad dressings, margarine, butter, or cheese most days?: Yes Do you have food allergies? [Enter types in comment field]: No Do you eat in restaurants more than 3 times a week?: No Do you season food with salt, seasoning salt, or garlic salt?: Yes Do you used canned, boxed, frozen meals, or soups, seasoning packets?: Yes Total Score:: 5
--- NOTE | 2018-11-22 13:01 | CR.HP_ITS ---
CR - History & Physical - General Arrival date:: 11/22/18 Arrival time:: 12:00 Date of Referral:: 11/10/18 Date of CR Evaluation:: 11/22/18 Referring Physician: Dr. Abelino Colin Primary Diagnosis: PTCA with coronary stetn placement - History of Present Cardiac Event Onset Date: Enter Onset Date of cardiac illnesses in Comment field below Current stable Angina Pectoris:: Yes - 11/09/2018 PTCA or coronary stenting:: Yes - 11/09/2018; previous stented 11/04/2016 at [facility], then sent to [facility] 03/2016 Type of Symptoms:: recurring chest pain, seen doctors and failed stress test. He chose to do the heart cath and subsequently ended up with two stents. Total of 4 coronary stents now. Interventions with present event:: heart cath stress echo Were there any complications?: none - Medications Home Medications: Ambulatory Orders Medication Instructions Recorded Albuterol IH (ProAir) [Proair Hfa] 1 puff INHALATION Q4H PRN PRN 11/03/16 Aspirin E.C. [Ecotrin] 81 mg PO DAILY@0800 11/03/16 acetaminophen 325 mg tablet 650 mg PO Q4H PRN 09/13/17 guaifenesin ER 600 mg tablet, 600 mg PO Q12H PRN 09/13/17 extended release 12 hr lansoprazole 30 mg capsule,delayed 30 mg PO BID #60 cap 10/19/17 release montelukast 10 mg tablet 10 mg PO QPM #30 tab 02/03/18 carvedilol 3.125 mg tablet 3.125 mg PO BID #90 tab 04/05/18 clopidogrel 75 mg tablet 75 mg PO DAILY #90 tab 04/05/18 losartan 25 mg tablet 25 mg PO DAILY #90 tab 04/05/18 cyclobenzaprine 10 mg tablet 10 mg PO TID PRN #30 tab 05/25/18 benzonatate 200 mg capsule 200 mg PO TID PRN #90 cap 10/21/18 nitroglycerin 0.4 mg sublingual 0.4 mg SUBLINGUAL Q5-15M PRN #25 10/28/18 tablet tab budesonide-formoterol HFA 160 2 puff INHALATION BID 10/31/18 mcg-4.5 mcg/actuation aerosol inhaler ipratropium-albuterol 0.5 mg-3 3 ml INHALATION Q4H PRN #180 ml 10/31/18 mg(2.5 mg base)/3 mL nebulization soln - Allergies Allergies/Adverse Reactions: Allergies No Known Allergies Allergy (Verified 11/14/18 14:58) - Sleep Disorder Evaluation Hx of Sleep Apnea: Yes Do you snore loudly (louder than talking or can be heard through closed doors)?: Yes - was told years ago had sleep apnea but never followed up with it. Do you often feel tired/ fatigued/ sleepy during daytime?: No Has anyone observed you stop breathing during sleep?: No History of Hypertension (for STOP score): Yes STOP Results: Positive Advanced Directives - Advanced Directives Power of Support Dba: No Living Will: No Advance Directives Information Provided: No Advance Directives on File: No DNR Order?:: No - MOLST See MOLST form: No Past Medical History - Past Medical Illness Medical History: Past Medical History (Last Updated 11/10/18 @ 06:39 by Rene Dai LEGAL SERVICE SPECIALIST-C) Shortness of breath (Acute) R06.02 Severe persistent asthma (Acute) J45.50 Atherosclerosis of coronary artery of [place] heart without angina pectoris (Chronic) I25.10 PCI-IRENE mid LAD 2.5 X 24 Promus Synergy; PCI-IRENE mid PDA 2.25 X 16 Promus Synergy 11/09/18 PCI-IRENE-LAD 2.25 x 32 Promus Synergy 11/04/16 PCI-IRENE-PLB 2.25 x 20 mm Synergy Monorail and POBA PDA 03/19/2016 Successful PTCA/IRENE mid LAD with a 2.5 x 24 Promus Synergy stent, post dilated with a 3.0 x 8 and a 3.5 x 8 NC balloon; 85%-->0%, no dissection on 11/09/2018 Successful PTCA/IRENE mid PDA with a 2.25 x 16 Promus Synergy stent; 85%-->0%, no dissection on 11/09/2018 DNS (deviated nasal septum) (Chronic) J34.2 Chronic maxillary sinusitis (Chronic) J32.0 Chronic sphenoidal sinusitis (Chronic) J32.3 Chronic ethmoidal sinusitis (Chronic) 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 He has responded well to Levaquin and a prednisone taper in the past. We will treat him with 7 days of Levaquin and a prednisone taper over 12 days. He has been advised that his symptoms will likely take 2 days on the medication before he notices improvement. He has been advised to contact the office if he does not seem some type of improvement after 48 hours. Keep previously scheduled routine follow-up, he believes it is in December. He has also been encouraged to contact the office if symptoms worsen or new symptoms present. 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 Hepatitis C (Chronic) B19.20 Shoulder joint pain (Chronic) M25.519 Osteoarthritis (Chronic) M19.90 Abnormal electrocardiogram [ECG] [EKG] (Inactive) R94.31 - Past Surgical History Surgical History: Past Surgical History (Last Updated 11/22/18 @ 13:07 by Marcelo Mcfarland, PNEUMATIC TESTER MECHANIC, RESIDENCE LIFE DIRECTOR, BS) History of coronary artery stent placement (Chronic) Onset Date: 11/09/18 Z 95.5 PCI-IRENE mid LAD 2.5 X 24 Promus Synergy; PCI-IRENE mid PDA 2.25 X 16 Promus Synergy 11/09/18 PCI-IRENE-LAD 2.25 x 32 Promus Synergy 11/04/16 PCI-IRENE-PLB 2.25 x 20 mm Synergy Monorail and POBA PDA 03/19/2016 Successful PTCA/IRENE mid LAD with a 2.5 x 24 Promus Synergy stent, post dilated with a 3.0 x 8 and a 3.5 x 8 NC balloon; 85%-->0%, no dissection on 11/09/2018 Successful PTCA/IRENE mid PDA with a 2.25 x 16 Promus Synergy stent; 85%-->0%, no dissection on 11/09/2018 History of cholecystectomy Z90.49 Status post correction of deviated nasal septum Z98.890 12/2017 - Family History Summary Family History: Family History (Last Reviewed 10/31/18 @ 11:23 by LENNOX Johnson) Brother CAD (coronary artery disease) Mother Cancer ovarian Social History - Smoking History Smoking Status: Former smoker Years Smokin Packs Smoked per Day: 1.5 Hx Smoking Cessation Date: 2013 Hx Tobacco Use: Yes Hx Smoking Exposure: No - Alcohol Use Alcohol Usage: Yes - beer every now and then - Substance Abuse Hx Substance Use: No - Occupation Occupation (List type of work in comments):: Employed, Retired - Hobbies, Recreation, Social Activities Hobbies: Sports - Golfer!, Other Recreational Activities: I am able to engage in all my recreational activities - struggle wiht some of them still due to the lack of energy. Social Environment - Status Marital Status: - Current Living Arrangements Living Environment:: Spouse - Children How many children do you have?: 5 Do any of your children live nearby?: Yes - Oldest daughter in [place], [place], [place], [place]. - Safety Do you feel safe in your surroundings?: Yes - Assistance Do you need any assistance at home?: none Review of Systems - Review of Systems Hints: Right click = Denies ([place]ash). Left click = Reports ([place]) Review of Present Symptoms: Reports: Shortness of Breath with Exertion - patient also has some COPD somponent that contributes to the shortness of breath., Fatigue, Appetite - Normal, Sleep - Normal. Denies: Shortness of Breath at Rest, Operative Discomfort, Angina, Dizziness/Lightheadedness, Heart Arrhythmia/Irregularities, Appetite - Special Diet - not really., Sexual Changes - Pain Is Patient Pain Free?: No Pain Location: chest - chest discomfort from alot of recent coughing. Pain Level: 0/10 Risk Factor Assessment - Chief Complaint Chief Complaint: Patient presents to cardiac rehab today follwoing recent PCI intervention. Patient had previously been referrred to CR in the past and was unable to participate due to work. Since he has had these last two stents pplaced he decided he should do CR. - Vital Signs Temperature: 98.7 F Respiratory Rate: 14 Pulse Ox: 96 Blood Pressure: 142/78 - Pulse Pulse Rate: 72 - Hypertension How long have you been treated?: since [id number] On medication(s)?: yes Blood Pressure Sitting - Left Arm: 142/78 - Blood Cholesterol/Lipids HDL Cholesterol (mg/dL) Goal = less than 40 mg/dL: 41 LDL Cholesterol (mg/dL) Goal = less than 70 mg/dL: 88 Triglycerides (mg/dL) Goal = less than 150 mg/dL: 110 - Diabetes Nutrition Referral for Diabetes: No - Obesity Height: 6 ft Weight:: 237 lb Weight in Pounds: 237.0 lbs Weight Source: Standing Scale Body Mass Index (BMI): 32.1 - Physical Inactivity Physical Inactivity: Physically demanding job - alot of physical activity at work/ walking. - Risk Stratification Risk Guidelines: Lowest Risk: Risk Factor for Smoking, Risk Factor for Dyslipidemia, Risk Factor for Diabetes, Risk Factor for Sedentary Lifestyle, Risk Factor for Depression, Moderate Risk: Risk Factor for Hypertension, Risk Factor for Sedentary Lifestyle, Highest Risk: Risk Factor for Obesity - For Smoking Smoking Risk Guidelines: Smoking Low Risk: None or quit greater than 6 months ago. Smoking Moderate Risk: Smoker or quit 6 months or less ago. Smoking High Risk: Smoker - For Dyslipidemia Dyslipidemia Risk Guidelines: Low Risk: Moderate Risk: High Risk: 15-25% fat 25.1-29% fat >/= 30% fat. <7% sat fat 7-9% sat fat >9% sat fat. <150 mg chol 150-299 mg chol >/= 300 mg chol. LDL <100 LDL 100-129 LDL >/= 130. Chol/HDL ratio <5.0 Chol/HDL ratio 5.0-6.0 Chol/HDL ratio >6.0. Triglycerides <100 Triglycerides 100- 149 Triglycerides >/= 150 - For Diabetes Mellitus Diabetes Risk Guidelines: Diabetes Low Risk: HgA1c <6.5% and/or FBG <120. Diabetes Moderate Risk: HgA1c 6.6-7.9% and/or FBG 120-180. Diabetes High Risk: HgA1c >/= 8% and/or FBG >180 - For Obesity/Overweight Obesity/Overweight Risk Guidelines: Obesity Low Risk: BMI <25.0. Obesity Moderate Risk: BMI 25-29.9. Obesity High Risk: BMI >/= 30.0 - For Hypertension Hypertension Risk Guidelines: Hypertension Low Risk: Systolic <120 and Diastolic <80. Hypertension Moderate Risk: Systolic 120-139 and Diastolic 80-89. Hypertension High Risk: Systolic >/= 140 and Diastolic >/= 90 - For Sedentary Lifestyle Sedentary Lifestyle Risk Guidelines: Sedentary Lifestyle Low Risk: >/= 1,500 kcal/week. Sedentary Lifestyle Moderate Risk: 700-1,499 kcal/week. Sedentary Lifestyle High Risk: < 700 kcal/week - For Depression Depression Risk Guidelines: Depression Low Risk: Not clinically depressed. Depression Moderate Risk: Mildly depressed. Depression High Risk: Clinically depressed - Family History Family History: Family History (Last Reviewed 10/31/18 @ 11:23 by LENNOX Johnson) Brother CAD (coronary artery disease) Mother Cancer Motivation - Motivation to Participate On a scale of 1 to 10, how prepared are you to commit to attending program?: 9 - 9 to a 10 What do you see as barriers to successfully being able to complete the program?: none What do you see as the benefits of succesfully completing the program? In other words, what do you hope to get out of participating in the program?: like to have more stamina, not being so worn out. Lose some weight Are there issues you are dealing with that will interfere with completing the program?: Perhaps the COPD. Do you have a spouse or signficant other, family or friends who will help support you to complete the program?: Yes.
[2018-11-22 13:19] VITALS: BP 142/78; PULSE 72; RESP 14; TEMP 37.1; O2SAT 96; BMI 32.1
[2018-11-22 13:55] VITALS: BP 142/78
== END ==
PROVIDERS: Family Provider Internal Medicine; PCP Internal Medicine; Referring Provider Internal Medicine Cardiovascular Disease; Visit Provider Internal Medicine Cardiovascular Disease
DX: Z95.5 Presence of coronary angioplasty implant and graft (principal); I25.10 Atherosclerotic heart disease of native coronary artery without angina pectoris; Z87.891 Personal history of nicotine dependence

== ENCOUNTER 2018-11-30 15:15 | Outpatient (RCR) | payer MEDICARE, BC, SELFPAY ==
[2018-11-09 13:38] VITALS: BMI 33.0
[2018-11-22 13:19] VITALS: BMI 32.1
== END 2018-12-01 23:59 ==
LOC: CR 15:15
PROVIDERS: Family Provider Internal Medicine; PCP Internal Medicine; Referring Provider Internal Medicine Cardiovascular Disease; Visit Provider Internal Medicine Cardiovascular Disease
DX: I25.10 Atherosclerotic heart disease of native coronary artery without angina pectoris (principal); Z95.5 Presence of coronary angioplasty implant and graft
CPT/HCPCS: 93798

== ENCOUNTER 2018-12-28 15:15 | Outpatient (RCR) | payer MEDICARE, BC, SELFPAY ==
[2018-11-09 13:38] VITALS: BMI 33.0
[2018-11-30 15:25] VITALS: BMI 32.1
== END 2019-01-01 23:59 ==
LOC: CR 15:15
PROVIDERS: Family Provider Internal Medicine; PCP Internal Medicine; Referring Provider Internal Medicine Cardiovascular Disease; Visit Provider Internal Medicine Cardiovascular Disease
DX: I25.10 Atherosclerotic heart disease of native coronary artery without angina pectoris (principal); Z95.5 Presence of coronary angioplasty implant and graft
CPT/HCPCS: 93798

== ENCOUNTER 2019-01-25 15:15 | Outpatient (RCR) | payer MEDICARE, BC, SELFPAY ==
[2018-11-09 13:38] VITALS: BMI 33.0
[2019-01-02 01:22] VITALS: BMI 32.1
--- NOTE | 2019-01-18 06:56 | PCM.CR.ITP ---
General Information - General Information Admitting Diagnosis: PTCA - Education/Goals Cardiac Rehabilitation Goals: 1. Maintain the individual as the primary focus of care. 2. To improve the patient's quality of life. 3. Identification of cardiac risk factors and provide cardiac risk factor management. 4. Enhance the psychosocial status of the patient. 5. Reconditioning enough to allow the patient to resume customary activities. 6. Control symptoms of cardiac disease Scale for measuring improvement of personal goals: Enter appropriate number in Comments. 2 = Unchanged. 3 = Slightly Better. 4 = Moderate Improvement. 5 = Met my Goal Exercise - 60-Day Assessment - Visit Date of Eval: 01/18/19 Session #:: 16 - Stages of Change Stages of Change:: Action - Physician Prescribed Exercise Modalities: Treadmill, Airdyne, NuStep Frequency (days/week): 3 Duration (Minutes):: 30-45 Intensity: 60-80% age predicted maximum heart rate reserve METs - Progression: 0.5-1.0 MET, RPE 11-14 WEEK: 4 Target Heart Rate:: 114-121 Max HR 121 - Hypertension Resting Blood Pressure:: 158/84 Peak Exercise Blood Pressure:: 176/78 - Intervention Home Exercise/Activity Goal:: Sitting Time <3 hrs/day - Education Goals:: Warm-up, RPE JANENE Scale, S/S, Safe Exercise, Self-Monitoring - Exercise Program Goals Exercise Program Goals: Aerobic Activity >30 min, B/P <130/80 Nutrition - 60-Day Assessment - Program Goals Nutrition Program Goals: LDL <70. Total Cholesterol <200. HDL >45. Triglycerides <150. HgbA1C <7%. BMI <25 - Visit Date of Eval: 01/18/19 - Stages of Change Stages of Change:: Action - Lipids Has the patient seen the dietitian?: No - Weight Management Weight:: 109.089 kg - Intervention Referral to dietitian:: Yes Referral to Diabetic Clinic:: No Will attend diet classes:: Yes - Education Attended class for:: Signs & symptoms of hypoglycemia, Signs & symptoms of hyperglycemia, Relate diabetes to coronary artery disease, Healthy eating Tobacco - Initial Assessment - Program Goals Tobacco Program Goals: Complete smoking cessation. Attend education classes. Improve Knowledge Test score - Learning Barriers Learning Barriers: Ready to Learn Tobacco - 60-Day Assessment - Program Goals Tobacco Program Goals: Complete smoking cessation. Attend education classes. Improve Knowledge Test score - Stage of Change Stages of Change:: Action - Learning Barriers Learning Barriers: Participates in education - Family Support Do you have family support?: Yes - Intervention Smoking Cessation Referral:: No Individual Education/Counseling:: No Education Schedule Given:: Yes - Education Attended class for:: Tobacco triggers, Coronary artery disease, Risk factors, Sexuality, Medical compliance, Cardiac A&P, Angina signs & symptoms Psychosocial - Initial Assess - Target Goals Target Goals: Assess presence or absence of depression. Using a valid screening tool, maximizes coping skills. Positive support system - Psychosocial Test Tool Used:: HANDS Depression Questionnaire - Assistive Devices Fall Risk Assessed:: Yes Psychosocial - 60-Day Assess - Target Goals Target Goals: Assess presence or absence of depression. Using a valid screening tool, maximizes coping skills. Positive support system - Stages of Change Stages of Change:: Action - Psychosocial Test Tool Used:: HANDS Depression Questionnaire - Intervention PS - Interventions: Yes Attend Stress Management Classes, Yes Uses Stress Management Skills, No Referral to Mental Health, No Referral to [facility] Case Management, No Referral to Physician - Education Attended classes for:: Coping techniques, Signs & symptoms of depression, Stress management, Relaxation techniques - Assistive Devices Assistive Devices:: None Fall Risk Assessed:: Yes Patient Health Questionnaire 60-Day Re-eval Assessment 1. Little interest or pleasure in doing things: Not at all 2. Feeling down, depressed, or hopeless: Not at all 3. Trouble falling or staying asleep, or sleeping too much: Not at all 4. Feeling tired or having little energy: Nearly every day 5. Poor appetite or overeating: More than half the days 6. Feeling bad about yourself -- or that you are a failure or have let yourself or your family down: Not at all 7. Trouble concentrating on things, such as reading the newspaper or watching television: Not at all 8. Moving or speaking so slowly that other people could have noticed. Or the opposite - being so fidgety or restless that you have been moving around a lot more than usual: Not at all 9. Thoughts that you would be better off , or of hurting yourself in some way: Not at all Total Score: 5 Self-Efficacy 60-Day Re-eval Assessment We would like to know how confident you are in doing certain activities. Please select your confidence level for:: Select your confidence level for the following using the scale 1-10 where 1 is not at all confident and 10 is totally confident. Your score is the average of all 6 responses. Fatigue: How confident are you that you can keep the fatigue caused by your disease from interfering with the things you want to do? Select Number: 5 Physical Discomfort or Pain: How confident are you that you can keep the physical discomfort or pain of your disease from interfering with the things you want to do? Select Number: 7 Emotional Distress: How confident are you that you can keep the emotional distress caused by your disease from interfering with the things you want to do? Select Number: 10 Other Symptoms or Health Problems: How confident are you that you can keep other symptoms or health problems from interfering with the things you want to do? Select Number: 5 Different Tasks and Activities: How confident are you that you can do the different tasks and activities needed to manage your health condition so as to reduce your need to see a doctor? Select Number: 7 Medication: How confident are you that you can do things other than just taking medication to reduce how much your illness affects your everyday life? Select Number: 7 Total Score:: 6
[2019-01-18 07:01] VITALS: BP 158/84; BP 176/78
== END 2019-01-31 23:59 ==
LOC: CR 15:15
PROVIDERS: Family Provider Internal Medicine; PCP Internal Medicine; Referring Provider Internal Medicine Cardiovascular Disease; Visit Provider Internal Medicine Cardiovascular Disease
DX: I25.10 Atherosclerotic heart disease of native coronary artery without angina pectoris (principal); Z95.5 Presence of coronary angioplasty implant and graft
CPT/HCPCS: 93798

== ENCOUNTER 2019-02-20 15:15 | Outpatient (RCR) | payer MEDICARE, BC, SELFPAY ==
[2018-11-09 13:38] VITALS: BMI 33.0
[2019-01-13 13:44] VITALS: BMI 32.3
[2019-02-01 01:23] VITALS: BP 158/84; BP 176/78
== END 2019-03-03 23:59 ==
LOC: CR 15:15
PROVIDERS: Family Provider Internal Medicine; PCP Internal Medicine; Referring Provider Internal Medicine Cardiovascular Disease; Visit Provider Internal Medicine Cardiovascular Disease
DX: I25.10 Atherosclerotic heart disease of native coronary artery without angina pectoris (principal); Z95.5 Presence of coronary angioplasty implant and graft
CPT/HCPCS: 93798

== ENCOUNTER → 2019-03-07 11:58 | Outpatient (CLI) | payer MEDICARE, BC, SELFPAY ==
[2018-11-09 13:38] VITALS: BMI 33.0
[2019-03-07 11:19] VITALS: BMI 32.5
--- NOTE | 2019-03-07 12:03 | RAD_ITS ---
HISTORY: SOB/DYSPNEA, ASTHMA; STENTS, H/O NE EXAM: XR Chest 2 Views: COMPARISON: October 31, 2018 FINDINGS: # of images incl. paperwork: 2 Linear airspace disease within the left lung. There are some additional airspace disease more cranially within the left lung that is new.. Lungs demonstrate improved expansion since the previous study. Heart is not enlarged. Bones are normal. Pulmonary vascularity is distinct. No effusions. RAD/Chest PA and Lateral IMPRESSION: Left lung airspace disease both linear and alveolar. This may represent pneumonia.. at 0047 Reported and signed by: Dakota Sheehan MD Electronically Signed: Dakota Sheehan MD at 0:46 EDT Tel , Service support ,
== END ==
PROVIDERS: Family Provider Internal Medicine; PCP Internal Medicine; Referring Provider Nurse Practitioner Acute Care; Visit Provider Nurse Practitioner Acute Care
DX: R06.02 Shortness of breath (principal)
CPT/HCPCS: 71046

== ENCOUNTER → 2019-03-10 14:42 | Outpatient (CLI) | payer MEDICARE, BC, SELFPAY ==
[2018-11-09 13:38] VITALS: BMI 33.0
[2019-03-07 11:19] VITALS: BMI 32.5
== END ==
PROVIDERS: Family Provider Internal Medicine; PCP Internal Medicine; Referring Provider Nurse Practitioner Acute Care; Visit Provider Nurse Practitioner Acute Care
DX: J06.9 Acute upper respiratory infection, unspecified (principal)
CPT/HCPCS: 87070; 87205

== ENCOUNTER → 2019-10-19 13:35 | Outpatient (CLI) | payer MEDICARE, BC, SELFPAY ==
[2018-11-09 13:38] VITALS: BMI 33.0
[2019-09-08 14:15] VITALS: BMI 34.0
[2019-10-13 13:55] VITALS: BMI 34.0
--- NOTE | 2019-10-19 13:37 | ECHOCS_ITS ---
Reason For Study: CHEST PAIN Procedure This was a 2D Doppler, Color Flow transthoracic echocardiogram. Exam performed in department. [facility] w/ Dr Colin's RN ( Georgina) regarding BP. Left Ventricle Normal size and thickness. The estimated ejection fraction is 65 %. Stage 2 diastolic dysfunction. No regional wall motion abnormalities noted. Right Ventricle Normal size and thickness. Normal systolic function. Atria Normal left atrium. Normal right atrium. Normal atrial septum. Mitral Valve The mitral valve is structurally normal. No prolapse or stenosis seen. Tricuspid Valve Normal tricuspid valve. Trivial tricuspid valve insufficiency. Right ventricular systolic pressure estimated to be 30 mmHg. Aortic Valve Trisinus/trileaflet aortic valve. Mild diffuse aortic valve thickening. There is no aortic stenosis. Pulmonic Valve The pulmonic valve is not well visualized. Great Vessels Normal aortic root. Normal arch. Normal inferior vena cava. Inferior vena cava collapse with sniff. Pericardium/Pleural No pericardial effusion. Medication 22 gauge I.V. with prn adaptor inserted into left arm. Diluted definity 4.0ml given slow IV push to enhance endocardial definition. MMode/2D Measurements & Calculations LVIDd: 5.1 cm IVSd: 0.98 cm Ao root diam: 3.8 cm LVIDs: 3.2 cm LVPWd: 1.1 cm RVDd: 3.5 cm FS: 37.5 % LAV(MOD-bp): 50.0 ml LVAd ap4: 30.5 cm2 EDV(MOD-sp2): 77.7 ml LAV(MOD-bp) Indexed: 22.0 ml/m2 EDV(MOD-sp4): 101.2 ml EF(MOD-sp2): 61.9 % LAV(MOD-sp2): 52.9 ml EDV(sp4-el): 92.9 ml LAV(MOD-sp4): 45.7 ml LVAs ap4: 17.6 cm2 ESV(MOD-sp4): 40.5 ml ESV(sp4-el): 38.9 ml EF(MOD-sp4): 60.0 % EF(sp4-el): 58.1 % SV(MOD-sp4): 60.7 ml SV(MOD-sp2): 48.1 ml SV(sp4-el): 54.0 ml LA A4 area: 16.7 cm2 LA dimension(2D): 4.2 cm RA A4 area: 12.5 cm2 Time Measurements MV dec time: 0.32 sec Doppler Measurements & Calculations MV E max germain: 87.3 cm/sec Lat Peak E' Germain: 8.6 cm/sec Med Peak E' Germain: 8.5 cm/sec MV A max germain: 76.7 cm/sec E/E' lat: 10.2 E/E' med: 10.2 MV E/A: 1.1 Ao V2 max: 134.8 cm/sec LV V1 max: 99.9 cm/sec TR max germain: 247.9 cm/sec Ao max P.3 mmHg LV V1 max P.0 mmHg TR max P.6 mmHg Interpretation Summary The estimated ejection fraction is 65 %. Stage 2 diastolic dysfunction. Trivial tricuspid valve insufficiency. Right ventricular systolic pressure estimated to be 30 mmHg. Compared to echo report dated 02/17/2016, no appreciable changes noted. The study was technically difficult. Contrast injection was performed. Ordering Physician: Abelino Colin Referring Physician: Jess Curry Performed By: Beti Sewell, FOREIGN, RVT
== END ==
PROVIDERS: Family Provider Internal Medicine; PCP Internal Medicine; Referring Provider Internal Medicine Cardiovascular Disease; Visit Provider Internal Medicine Cardiovascular Disease
DX: R07.9 Chest pain, unspecified (principal); R06.02 Shortness of breath; I25.10 Atherosclerotic heart disease of native coronary artery without angina pectoris; Z95.5 Presence of coronary angioplasty implant and graft
CPT/HCPCS: 93306; Q9957; A4216; C8929

== ENCOUNTER 2019-10-25 10:07 | Emergency (ER) | payer MEDICARE, BC, SELFPAY ==
[2018-11-09 13:38] VITALS: BMI 33.0
[2019-10-13 13:55] VITALS: BMI 34.0
[2019-10-25 10:08] VITALS: BP 187/78; PULSE 77; RESP 17; TEMP 37.3; O2SAT 96; BMI 34.0
--- NOTE | 2019-10-25 10:35 | CT_ITS ---
STUDY: CT ABDOMEN AND PELVIS WITH CONTRAST REASON FOR EXAM: Male, 69 years old. DIARRHEA X 5 DAYS. BLOOD IN STOOL RADIATION DOSAGE (If Supplied By Facility): CTDIvol = ( 16.25 ) mGy, DLP = ( 1236.67 ) mGycm TECHNIQUE: Transaxial images were obtained from the dome of the diaphragm to the symphysis pubis without oral contrast. IV 100mL Isovue-300 was administered. Sagittal and coronal images were reconstructed. Individualized dose optimization techniques were used for this CT. COMPARISON: Comparison made with prior study dated January 29, 2011. FINDINGS: Minimal increased linear markings in the right middle lobe as well as in the anterior aspect of the left lower lobe suggestive of scarring. Coronary artery calcification. There is decreased attenuation of the liver consistent with steatosis. The patient is status post cholecystectomy. Normal spleen. Normal pancreas. Normal bilateral adrenal glands. Normal right kidney. Normal left kidney. There is a small hiatal hernia. Normal small intestine. Findings suggestive of colitis involving the transverse colon. There are multiple colonic diverticula consistent with diverticulosis. The appendix is visualized and appears normal. There is diffuse atherosclerotic calcification of the abdominal aorta, without a demonstrated aneurysm. Mural thrombus in the distal abdominal aorta. Normal inferior vena cava. Normal retroperitoneum. Normal urinary bladder. There is enlargement of the prostate gland. It measures 4.7 cm x 4.7 cm. This causes indentation at the bladder base. There is a small umbilical hernia containing fat. Normal osseous structures. CT/Abdomen/Pelvis W IV Cont ONLY IMPRESSION: Fatty filtration of the liver. Findings suggestive of colitis involving the transverse colon. Electronically Signed: Michael De Guzman, at 11:57 EST , Service support ,
--- NOTE | 2019-10-25 10:45 | ED.VIS.GI ---
History of Present Illness Chief Complaint: GI Bleed Informant: Patient - Abdominal Pain/Flank Pain Onset: Today Timing: Intermittent - 5-6 times Quality: - - Blood in diarrhea, mostly just afterwards Location: Diffuse - Aching, cramping, for about 1 week Current Severity: Moderate Maximum Severity: Moderate Worsened by: Nothing Relieved by: - - Somewhat after having diarrhea - Nausea/Vomiting/Emesis GI Symptom: Nausea, Vomiting - Mostly dry heaving Onset: Weeks - 1 - Diarrhea/Melena/Hematochezia GI Symptom: Diarrhea, Hematochezia. Negative for: Melena Associated Symptoms: Negative for: Dysuria, Frequency, Hematuria, Urgency Narrative: For about 1 week patient has been having intermittent periumbilical abdominal pains that mostly felt a cramping, now it is aching, dry heaves, and watery diarrhea. Today he started seeing blood in the diarrhea. No hematemesis. No coffee-ground emesis. No near syncope or syncope, but he does feel malaised. No fevers. No known sick contacts. No recent antibiotics. No recent travel out of the area or country. No recent food ingestions that he was suspicious of could have been causing this, or undercooked/uncooked meats. - Past Medical History (1) Atherosclerotic cardiovascular disease Status: Chronic (2) COPD (chronic obstructive pulmonary disease) Status: Chronic (3) Chronic ethmoidal sinusitis Status: Chronic (4) Chronic maxillary sinusitis Status: Chronic (5) Chronic sphenoidal sinusitis Status: Chronic (6) DNS (deviated nasal septum) Status: Chronic (7) Hepatitis C Status: Chronic (8) Hyperlipidemia Status: Chronic (9) Obesity Status: Chronic (10) Osteoarthritis Status: Chronic (11) Polypoid sinus degeneration Status: Chronic (12) Sleep disorder breathing Status: Chronic Past Medical History - Allergies and Home Meds Allergies/Adverse Reactions: Allergies gemfibrozil Adverse Reaction (Severe, Verified 10/25/19 10:08) Severe nausea, flu like sx and fatigue rosuvastatin [From Crestor] Adverse Reaction (Severe, Verified 10/25/19 10:08) severe fatigue, flu like sx simvastatin Adverse Reaction (Severe, Verified 10/25/19 10:08) severe fatigue, flu like sx Primary Care Physician: Jess Curry MD [Primary Care Provider] - Lives: Alone Smoking Status: Former smoker Alcohol: None Review of Systems General: Reports: Malaise. Denies: Chills, Fever, Sweats Eyes: Denies: Visual changes - bilaterally, Diplopia ENT: Denies: Rhinorrhea, Sore throat Cardiovascular: Denies: Chest pain, Palpitations Respiratory: Denies: Dyspnea, Cough, Dyspnea on exertion Gastrointestinal: Reports: Abdominal pain, Nausea, Vomiting, Diarrhea, Hematochezia. Denies: Melena Genitourinary: Denies: Dysuria, Hematuria, Frequency Musculoskeletal: Denies: Neck pain, Back pain, Swelling, Extremity Pain Skin: Denies: Rash, Wounds Neurological: Denies: Headache, Weakness, Numbness Physical Exam Vital Signs/Narrative: Vital Signs Temp Pulse Resp BP Pulse Ox 10/25/19 10:08 99.2 F H 77 17 187/78 H 96 Inital Vital Signs reviewed: Yes General: Well nourished, Well developed, Obese, No Acute Distress Head: Normocephalic, Atraumatic Eyes: Perrl, EOMI ENT: Moist mucous membranes, No rhinorrhea Neck: Supple, Nontender Cardiovascular: Regular rate, Regular rhythm, No murmurs Respiratory: No distress, CTA bilaterally, Chest nontender Abdomen: Soft, Nondistended, Normal bowel sounds, Tender - Mild diffuse, mostly epigastrium. Negative for: Guarding, Rebound tenderness, Pulsatile mass : - - Several nonthrombosed, small subcentimeter, tender external hemorrhoids. 1 of them has a blood clot on it that does not easily rub off and there is no active bleeding but there is blood present around it. There is diffuse perianal tenderness but no focal areas that are suspicious for an abscess. Back: Nontender, Normal Inspection. Negative for: CVA tenderness Extremities: Nontender, No edema Skin: Normal color, No rash, No Trauma Neurological: Alert, Oriented x3, Cranial nerves II-XII grossly intact, Normal Strength, Normal Sensation, Normal Gait Psychological: Normal affect, Normal Mood Diagnostic/Tx/Re-eval Impressions Abdomen/Pelvis CT 10/25/19 10:35 IMPRESSION: Fatty filtration of the liver. Findings suggestive of colitis involving the transverse colon. Electronically Signed: Michael De Guzman, at 11:57 EST , Service support , 10/25/19 10:35 Abdomen/Pelvis W IV Cont ONLY [CT] Stat Laboratory Results 10/25/19 10/25/19 10/25/19 10:48 10:48 10:48 WBC 9.2 RBC 4.98 Hgb 14.6 Hct 44.8 MCV 90.0 MCH 29.3 MCHC 32.6 RDW Std Deviation 42.0 RDW Coeff of Cheryl 12.8 Plt Count 334 MPV 8.9 Immature Gran % (Auto) 0.400 Neut % (Auto) 74.5 H Lymph % (Auto) 13.2 L Mcpherson % (Auto) 6.8 Eos % (Auto) 4.6 Baso % (Auto) 0.5 Absolute Neuts (auto) 6.9 Absolute Lymphs (auto) 1.22 Nucleated RBC % 0 Sodium 142 Potassium 3.7 Chloride 111 H Carbon Dioxide 26.0 Anion Gap 5 BUN 14 Creatinine 0.96 Estim Creat Clear Calc 77.35 Est GFR (MDRD) Af Amer 99 Est GFR (MDRD) Non-Af 82 BUN/Creatinine Ratio 14.5 Glucose 146 H Lactic Acid 1.3 Calcium 9.0 Total Bilirubin 0.30 AST 25 ALT 60 Alkaline Phosphatase 61 Total Protein 7.2 Albumin 3.4 Globulin 3.8 Albumin/Globulin Ratio 0.9 Urine Color Urine Clarity Urine pH Ur Specific [place] Urine Protein Urine Glucose (UA) Urine Ketones Urine Occult Blood Urine Nitrite Urine Bilirubin Urine Urobilinogen Ur Leukocyte Esterase 10/25/19 11:55 WBC RBC Hgb Hct MCV MCH MCHC RDW Std Deviation RDW Coeff of Cheryl Plt Count MPV Immature Gran % (Auto) Neut % (Auto) Lymph % (Auto) Mcpherson % (Auto) Eos % (Auto) Baso % (Auto) Absolute Neuts (auto) Absolute Lymphs (auto) Nucleated RBC % Sodium Potassium Chloride Carbon Dioxide Anion Gap BUN Creatinine Estim Creat Clear Calc Est GFR (MDRD) Af Amer Est GFR (MDRD) Non-Af BUN/Creatinine Ratio Glucose Lactic Acid Calcium Total Bilirubin AST ALT Alkaline Phosphatase Total Protein Albumin Globulin Albumin/Globulin Ratio Urine Color Yellow Urine Clarity Sl. Cloudy Urine pH 6.0 Ur Specific [place] 1.010 Urine Protein Negative Urine Glucose (UA) Normal Urine Ketones Negative Urine Occult Blood Negative Urine Nitrite Negative Urine Bilirubin Negative Urine Urobilinogen Normal Ur Leukocyte Esterase Negative - Medical Decision Making Patient is doing well after treatment with Bentyl, Zofran, some IV fluids. He does have a hemorrhoid that appears to be the source of the bleeding, however with his belly pain and age a CT was obtained. It shows transverse colitis. There is no other abnormality. His blood counts are good and does not have leukocytosis. I discussed with his PCP Dr. Curry, she agrees with putting him on empiric antibiotics after he provides a stool sample which she is now doing. He is comfortable with following up as an outpatient as is his PCP. ED Disposition - Plan for ED Patient: Disposition: Home or Assisted Living Diagnosis: Colitis, Vomiting and diarrhea, Bloody diarrhea, External hemorrhoid, bleeding Instructions: Hemorrhoids, RECTAL BLEED, Stable Prescriptions: Dicyclomine HCl [Bentyl] 20 mg PO Q6H PRN #16 cap PRN Reason: abdominal cramping Transmission Status: Pending to [facility] Ciprofloxacin [Cipro] 500 mg PO BID #14 tab Transmission Status: Pending to [facility] Metronidazole [Flagyl] 500 mg PO BID #14 tab Transmission Status: Pending to [facility] Hydrocortisone [Proctozone-Hc] 30 gm TP DAILY #1 [email or web address] Transmission Status: Pending to [facility] Ondansetron [Zofran Odt] 4 - 8 mg PO Q8H PRN PRN #14 tab PRN Reason: Nausea Transmission Status: Pending to [facility] Referrals: Jess Curry MD [Primary Care Provider] - 5-7 Days
[2019-10-25] MEDS: Ondansetron 4 MG/2 ML Vial IV (10:55)
[2019-10-25] MEDS: Dicyclomine 20 MG/2 ML Vial IM (10:55)
[2019-10-25] MEDS: 0.9% Normal Saline 1,000 ML 1000 ML IV (10:55)
[2019-10-25 11:11] LABS: Absolute Lymphocyte Count 1.22 X10^3/uL (0.83-4.51); Absolute Neutrophil Count 6.9 X10^3/uL (2.0-7.7); Basophil# 0.05 X10^3/uL; Basophil% 0.5 % (0-1); Eosinophil# 0.42 X10^3/uL; Eosinophils% 4.6 % (0-5); Hematocrit 44.8 % (40-54); Hemoglobin 14.6 g/dL (13.0-16.5); Lymphocyte # 1.22 X10^3/ul (4.0); Lymphocyte % 13.2 % (19-41); Mean Corp Hgb Conc 32.6 g/dL (32-36); Mean Corpuscular Hgb 29.3 pg (27.0-32.0); Mean Platelet Vol. 8.9 fl (6.2-12.0); Monocyte# 0.63 X10^3/uL; Monocyte% 6.8 % (0-10); NRBC Flagged by Analyzer 0 % (0-5); Neutrophil # 6.86 X10^3/uL (2.7-7.7); Neutrophil % 74.5 % (47-70); Platelet Count 334 K/mm3 (150-450); RBC Distribution Width CV 12.8 % (11.6-14.6); Red Blood Count 4.98 M/mm3 (4.6-6.2); White Blood Count 9.2 K/mm3 (4.4-11.0)
[2019-10-25 11:14] LABS: ALB/GLOB Ratio 0.9 RATIO (0.9-2.4); AST(SGOT) 25 U/L (15-37); Alanine Aminotransfer ALT/SGPT 60 U/L (16-61); Albumin, Serum 3.4 g/dL (3.2-5.0); Alkaline Phosphatase 61 U/L (45-117); Anion Gap 5 (5-15); BUN 14 mg/dL (7-18); BUN/Creat Ratio 14.5 RATIO (10-20); Chloride 111 mmol/L (98-107); Creatinine, Serum 0.96 mg/dL (0.70-1.30); EST Glomerular Filtration Rate 82 mL/min (>60); Est Glom Filt Rate - Afr Amer 99 mL/min (>60); Estimated Creatinine Clearance 77.35 ml/min; Globulin 3.8 g/dL (2.2-4.2); Glucose 146 mg/dL (74-106); Potassium 3.7 mmol/L (3.5-5.1); Protein, Total 7.2 g/dL (6.4-8.2); Sodium Level 142 mmol/L (136-145)
[2019-10-25 11:27] LABS: Lactic Acid 1.3 mmol/L (0.4-1.9)
[2019-10-25 12:01] LABS: Bacteria 0 SEEN /hpf (None Seen); Mucous, Urine 0 SEEN /hpf (<or=2+); Red Blood Cells-Urine 0 SEEN /hpf (0-5); White Blood Cells 0 SEEN /hpf (0-5)
[2019-10-25 12:03] LABS: Color, Urine Yellow (Yellow); Glucose, Dipstick Normal (Normal); Ketone-Dipstick Negative (Negative); Leukocyte Esterase-Dipstick Negative /ul (Negative); Nitrite-Dipstick Negative (Negative); Occult Blood-Urine Negative /ul (Negative); Protein-Dipstick Negative (Negative); Urine Bilirubin Dipstick Negative (Negative); Urine Clarity Sl. Cloudy (Clear); Urine Urobilinogen Normal (Normal)
[2019-10-25 12:07] VITALS: BP 186/90
[2019-10-25 12:11] LABS: Squamous Epithelial Cells - UA 0-5 SEEN /hpf (0-5)
== END 2019-10-25 13:23 | disposition home or self-care (01) ==
PROVIDERS: Emergency Provider Emergency Medicine; PCP Internal Medicine
DX: K52.9 Noninfective gastroenteritis and colitis, unspecified (principal); K64.4 Residual hemorrhoidal skin tags; I25.10 Atherosclerotic heart disease of native coronary artery without angina pectoris; J44.9 Chronic obstructive pulmonary disease, unspecified; E78.5 Hyperlipidemia, unspecified; B19.20 Unspecified viral hepatitis C without hepatic coma; M19.90 Unspecified osteoarthritis, unspecified site; E66.9 Obesity, unspecified; Z68.34 Body mass index [BMI] 34.0-34.9, adult; Z79.82 Long term (current) use of aspirin; Z87.891 Personal history of nicotine dependence
CPT/HCPCS: 74177; 80053; 81001; 83605; 85025; 87506; 96361; 96372; 96374; 99284; J7030; Q9967; A4216; J2405

== ENCOUNTER → 2019-12-08 12:45 | Outpatient (CLI) | payer MEDICARE, BC, SELFPAY ==
[2018-11-09 13:38] VITALS: BMI 33.0
[2019-09-08 14:15] VITALS: BMI 34.0
[2019-12-01 13:35] VITALS: BMI 33.0
[2019-12-01 16:30] VITALS: BMI 34.0
--- NOTE | 2019-12-08 12:46 | STEWCON_ITS ---
Reason For Study: Chest Pain; CAD Stress Results Protocol: Shiva Protocol WITH DEFINITY Maximum Predicted HR: 151 bpm Target HR: 128 bpm % Maximum Predicted HR: 83 % DurationHeart Rate Stage (mm:ss) (bpm) BP Comment Baseline 86 160/80No Chest Pain; 4 ML Diluted Definity Shvia Protocol Stage I 3:00 107 162/90No Chest Pain; Mild Dyspnea Shiva Protocol Stage II 2:31 126 174/84No Chest Pain; Moderate to Severe Dyspnea Recovery 95 158/80No Chest Pain; No Dyspnea Stress Duration: 5:31 mm:ss Maximum Stress HR: 126 bpm METS: 7 Baseline Echocardiogram Findings The estimated ejection fraction is 65 %. Stress Echo Wall motion Data Resting WM Intermediate WM Stress WM Resting Wall Motion Wall Motion Stress No regional wall motion No regional wall motion abnormalities noted. abnormalities noted. EKG Data The baseline ECG displays normal sinus rhythm. The patient exercised according to the regular Shiva protocol for a total duration of 5:31. The maximum heart rate attained was 160 beats per minute. This was 105% of maximum predicted heart rate. The patient exercised into stage 2 of the Shiva protocol. During stress, there were no ST or T wave changes noted to suggest ischemia. No clinical angina was noted. No arrhythmias noted. Interpretation Summary The estimated ejection fraction is 65 %. Normal, adequate, treadmill echocardiogram. Negative for ischemia by EKG and echocardiographic criteria. No anginal symptoms noted. No arrhythmias noted. Hypertensive blood pressure response to exercise. Low average exercise capacity for age. Final LVEF is 75%. Decrease sensitivity due to poor echo windows requiring Definity agent. Patient tolerated procedure well. No complications. The study was technically difficult. Contrast injection was performed. Ordering Physician: Abelino Colin Referring Physician: Jess Curry Performed By: Milad Vail RCS
== END ==
PROVIDERS: Family Provider Internal Medicine; PCP Internal Medicine; Referring Provider Internal Medicine Cardiovascular Disease; Visit Provider Internal Medicine Cardiovascular Disease
DX: R07.9 Chest pain, unspecified (principal); R06.02 Shortness of breath; I25.10 Atherosclerotic heart disease of native coronary artery without angina pectoris; Z95.5 Presence of coronary angioplasty implant and graft
CPT/HCPCS: 93017; 93350; Q9957; A4216; C8928

== ENCOUNTER → 2022-11-19 | Outpatient (CLI) | payer MEDICARE, OTHER, SELFPAY ==
[2019-12-01 13:35] VITALS: BMI 33.0
--- NOTE | 2022-11-19 12:58 | STRESSREP_ITS ---
Stress Test Report Date: 11/19/2022 Procedure: Exercise tolerance test Indications: Coronary artery disease Consent: Per the patient Procedure: The patient exercised on a Shiva protocol for 3 minutes and 33 seconds achieving a peak heart rate of 110 bpm (74% predicted maximal heart rate) with a peak blood pressure 164/70 mmHg and a peak MET capacity of approximately 5.9 MET's. The baseline ECG demonstrated normal sinus rhythm. The peak exercise ECG demonstrated sinus tachycardia with no ischemic changes. There were no cardiac dysrhythmias pretest, during exercise, or recovery. The functional capacity was considered below average. The patient had no complaints of chest discomfort during exercise or recovery. The examination was discontinued secondary to fatigue. Impression: 1. Suboptimal exercise capacity with failure to achieve target heart rate 2. Peak exercise ECG with no ischemic changes at 74% of maximum predicted heart rate 3. There were no cardiac dysrhythmias during exercise or recovery This note was generated with [employer] software. It may contain incorrect words, spelling, and punctuation that were not noted in checking the note before signing.
== END | disposition home or self-care (01) ==
LOC: CVS 11:59
PROVIDERS: PCP Family Medicine
DX: I25.10 Atherosclerotic heart disease of native coronary artery without angina pectoris (principal); Z95.1 Presence of aortocoronary bypass graft
CPT/HCPCS: 93017

== ENCOUNTER → 2023-07-19 | Outpatient (CLI) | payer OTHER, SELFPAY ==
[2019-12-01 13:35] VITALS: BMI 33.0
[2023-07-19 16:37] LABS: Color, Urine Yellow (Yellow); Glucose, Dipstick Normal (Normal); Ketone-Dipstick Negative (Negative); Leukocyte Esterase-Dipstick Negative /ul (Negative); Nitrite-Dipstick Negative (Negative); Occult Blood-Urine Negative /ul (Negative); Protein-Dipstick Negative (Negative); Urine Bilirubin Dipstick Negative (Negative); Urine Clarity Clear (Clear); Urine Urobilinogen Normal (Normal); Urine pH 6.5 (5.0 - 8.0)
[2023-07-19 17:06] LABS: AST(SGOT) 18 U/L (15-37); Alanine Aminotransfer ALT/SGPT 42 U/L (16-61); Albumin, Serum 3.7 g/dL (3.2-5.0); Alkaline Phosphatase 59 U/L (45-117); Anion Gap 4 (5-15); BUN 18 mg/dL (7-18); BUN/Creat Ratio 19.4 RATIO (10-20); Calcium,Total 9.4 mg/dL (8.5-10.1); Chloride 104 mmol/L (98-107); Creatinine, Serum 0.93 mg/dL (0.70-1.30); EST Glomerular Filtration Rate 85 mL/min (>60); Est Glom Filt Rate - Afr Amer 103 mL/min (>60); Globulin 3.7 g/dL (2.2-4.2); Glucose 123 mg/dL (74-106); Potassium 4.2 mmol/L (3.5-5.1); Protein, Total 7.4 g/dL (6.4-8.2); Sodium Level 138 mmol/L (136-145)
== END | disposition home or self-care (01) ==
LOC: LAB 15:59
PROVIDERS: PCP Family Medicine; Visit Provider Chiropractor
DX: E11.9 Type 2 diabetes mellitus without complications (principal)
CPT/HCPCS: 36415; 80053; 81002

== ENCOUNTER → 2023-10-14 | Outpatient (CLI) | payer OTHER, SELFPAY ==
[2019-12-01 13:35] VITALS: BMI 33.0
--- NOTE | 2023-10-14 13:51 | ECHOD_ITS ---
Reason For Study: CAD/ASHD Procedure This was a 2D Doppler, Color Flow transthoracic echocardiogram. Exam performed in department. Left Ventricle Normal LV size. Left ventricular systolic function is normal. The estimated ejection fraction is 55 %. Stage 1 diastolic dysfunction. No regional wall motion abnormalities noted. Right Ventricle Normal RV size. Normal systolic function. Atria Normal left atrium. Normal right atrium. Mitral Valve Normal mitral valve. Tricuspid Valve Normal tricuspid valve. Aortic Valve Trisinus/trileaflet aortic valve. Mild diffuse aortic valve thickening. Pulmonic Valve Normal pulmonic valve. Great Vessels Normal aortic root. The pulmonary artery is normal size. Normal inferior vena cava. Pericardium/Pleural No pericardial effusion. MMode/2D Measurements & Calculations LVIDd: 4.5 cm IVSd: 1.0 cm Ao root diam: 3.4 cm LVIDs: 2.9 cm LVPWd: 1.0 cm RVDd: 3.0 cm FS: 35.9 % LAV(MOD-bp): 50.8 ml LVAd ap4: 33.7 cm2 SV(MOD-sp4): 56.3 ml LAV(MOD-bp) Indexed: 23.4 ml/m2 LVLd ap4: 8.4 cm LAV(MOD-sp2): 63.8 ml EDV(MOD-sp4): 107.4 ml LAV(MOD-sp4): 38.9 ml EDV(sp4-el): 114.0 ml LVAs ap4: 20.1 cm2 LVLs ap4: 6.6 cm ESV(MOD-sp4): 51.1 ml ESV(sp4-el): 52.2 ml EF(MOD-sp4): 52.4 % EF(sp4-el): 54.2 % SV(sp4-el): 61.8 ml LA A4 area: 15.6 cm2 LA dimension(2D): 4.5 cm RA A4 area: 16.2 cm2 TAPSE: 1.5 cm Time Measurements MV dec time: 0.23 sec Doppler Measurements & Calculations MV E max germain: 68.9 cm/sec Lat Peak E' Germain: 10.1 cm/sec Med Peak E' Germain: 7.1 cm/sec MV A max germain: 81.9 cm/sec E/E' lat: 6.8 E/E' med: 9.7 MV E/A: 0.84 MV V2 max: 91.8 cm/sec MV P1/2t max germain: 53.6 cm/sec Ao V2 max: 101.4 cm/sec MV max P.4 mmHg MV P1/2t: 78.8 msec Ao max P.1 mmHg MV V2 mean: 51.0 cm/sec Ao V2 mean: 73.6 cm/sec MV mean P.2 mmHg MV dec slope: 199.0 cm/sec2 Ao mean P.4 mmHg MV V2 VTI: 17.9 cm MVA(P1/2t): 2.8 cm2 Ao V2 VTI: 19.7 cm AV (velocity ratio): 0.80 LV V1 max: 77.4 cm/sec PA V2 max: 108.6 cm/sec LV V1 max P.4 mmHg PA V2 mean: 76.0 cm/sec LV V1 mean P.6 mmHg LV V1 mean: 61.1 cm/sec LV V1 VTI: 15.8 cm ECHO/Echo Complete Interpretation Summary Normal LV size. Left ventricular systolic function is normal. The estimated ejection fraction is 55 %. Stage 1 diastolic dysfunction. Mild diffuse aortic valve thickening. Ordering Physician: Roberto Harvey Referring Physician: [facility] Performed By: Holly Lane, FOREIGN, RVT
== END | disposition home or self-care (01) ==
PROVIDERS: PCP Family Medicine; Referring Provider Chiropractor; Visit Provider Chiropractor
DX: I25.10 Atherosclerotic heart disease of native coronary artery without angina pectoris (principal)
CPT/HCPCS: 93306

== ENCOUNTER → 2024-09-21 | Outpatient (CLI) | payer MEDICARE, SELFPAY ==
[2019-12-01 13:35] VITALS: BMI 33.0
--- NOTE | 2024-09-21 14:29 | CT_ITS ---
STUDY: LOW DOSE CT LUNG CANCER SCREENING REASON FOR EXAM: Male, 74 years old. Patient smokes 1 pack per day for 59 years. History of prostate cancer. RADIATION DOSAGE (If Supplied By Facility): CTDIvol = ( 4.02 ) mGy, DLP = ( 143.46 ) mGycm TECHNIQUE: No contrast was administered. Low dose technique was utilized (average mAS-38 and kVp 120). 1.25 mm axial source images with a slice interval of 1.25-mm were reconstructed in lung windows. 2.5 mm axial source images with a slice interval of 2.5-mm were reconstructed in lung windows. 5.0 mm axial source images with a slice interval of 5.0-mm were reconstructed in soft tissue windows. COMPARISON: Comparison is made with prior study dated January 31, 2018. NODULES: No suspicious nodule is seen. Emphysema: Mild degree of linear scarring in the lingular segment of the left upper lobe. Endobronchial lesion: Aorta: Atherosclerotic plaque formation. CORONARY ARTERIES: Coronary artery calcification is seen. Heart: Prior CABG. Pulmonary artery: Unremarkable Mediastinal nodes: Remarkable Other chest and abdominal findings: Mild degenerative changes of the thoracic vertebrae. CT/Low Dose CT Lung Screening IMPRESSION: Lung-RADS category 2 - Continue annual screening with LDCT in 12 months. IMPORTANT NOTES FOR USE: ACR Lung-RADS Version 1.1 Assessment Categories Release Date: 2018 Category: Coded 0-4 bases on nodule(s) with highest degree of suspicion. Negative screen is defined as categories 1 and 2; a positive screen is defined as categories 3 and 4. Category 3 and 4A nodules that are unchanged on interval CT should be coded as category 2, and individuals returned to screening in 12 months. Category 4X: Category 3 or 4 nodules with additional imaging findings that increase the suspicion of lung cancer, such as spiculation, GGN that doubles in size in 1 year, enlarged lymph notes, etc. Category Modifiers: S (significant finding unrelated to lung cancer) Electronically Signed: Michael De Guzman MD at 13:26 EST ,
== END | disposition home or self-care (01) ==
LOC: CT 14:28
PROVIDERS: PCP Family Medicine; Referring Provider Nurse Practitioner Acute Care; Visit Provider Nurse Practitioner Acute Care
DX: Z12.2 Encounter for screening for malignant neoplasm of respiratory organs (principal); F17.210 Nicotine dependence, cigarettes, uncomplicated
CPT/HCPCS: 71271

== ENCOUNTER → 2025-03-01 | Outpatient (CLI) | payer MEDICARE, SELFPAY ==
[2019-12-01 13:35] VITALS: BMI 33.0
== END | disposition home or self-care (01) ==
LOC: PAVLAB 14:22
PROVIDERS: PCP Family Medicine; Referring Provider Nurse Practitioner Family; Visit Provider Nurse Practitioner Family
DX: J45.50 Severe persistent asthma, uncomplicated (principal)
CPT/HCPCS: 87070; 87205

== ENCOUNTER → 2025-04-04 | Outpatient (CLI) | payer MEDICARE, SELFPAY ==
[2019-12-01 13:35] VITALS: BMI 33.0
[2025-04-04 15:12] LABS: Hematocrit 40.3 % (40-54); Hemoglobin 13.2 g/dL (13.0-16.5); Immature Granulocytes Count 0.090 X10^3/uL (0.0-0.0); Mean Corp Hgb Conc 32.8 g/dL (32-36); Mean Corpuscular Volume 92.2 fL (80-94); Mean Platelet Vol. 8.6 fl (6.2-12.0); NRBC Flagged by Analyzer 0 % (0-5); Platelet Count 423 K/mm3 (150-450); RBC Distribution Width CV 13.5 % (11.6-14.6); RBC Distribution Width SD 46.2 fl (35.1-43.9); Red Blood Count 4.37 M/mm3 (4.6-6.2); White Blood Count 8.7 K/mm3 (4.4-11.0)
== END | disposition home or self-care (01) ==
LOC: LAB 14:46
PROVIDERS: PCP Family Medicine; Referring Provider Nurse Practitioner Family; Visit Provider Nurse Practitioner Family
DX: R06.02 Shortness of breath (principal)
CPT/HCPCS: 36415; 85025

== ENCOUNTER → 2025-05-08 | Outpatient (CLI) | payer MEDICARE, SELFPAY ==
[2019-12-01 13:35] VITALS: BMI 33.0
== END | disposition home or self-care (01) ==
LOC: PSN 09:26
PROVIDERS: PCP Family Medicine; Referring Provider Nurse Practitioner Family; Visit Provider Nurse Practitioner Family
DX: J44.9 Chronic obstructive pulmonary disease, unspecified (principal)
CPT/HCPCS: 94060; 94726; 94729

== ENCOUNTER → 2025-09-22 | Outpatient (CLI) | payer MEDICARE, SELFPAY ==
[2019-12-01 13:35] VITALS: BMI 33.0
--- OUTSIDE RECORDS SUMMARY | 2025-09-22 09:52 | XMS RPT_ITS | CCD ---
Author Organization [facility] ion [facility] Care Team Providers Care Linoleum Tile Layer Name Role Phone Cali Cordero MD Primary Care Provider Cali Cordero MD Primary Care Provider Juan A Pacheco DO Unavailable Brian Colmenares MD Unavailable Lina OIL TREATER.TECHNICAL SUPPORT CONSULTANT, Vern Unavailable Nithin Patel RN Unavailable Dr. Jess Curry Primary Care Provider Caroline CITY CARRIER, CITY CARRIER-C Kate Attending Provider Caroline CITY CARRIER, CITY CARRIER-C Kate Referring Provider WAI ADAIR Other Provider Dr. Cali Cordero Primary Care Provider Dr. Georgina Garcia Attending Provider Nithin Patel RN Unavailable Cali Cordero MD Primary Care Provider Dr. Cali Cordero Primary Care Provider Dr. Cali Cordero Referring Provider Caroline CITY CARRIER, CITY CARRIER-C Kate Attending Provider CALI CORDERO Primary Care Unavailable JANIA POZO Attending Unavailable CALI CORDERO Primary Care Unavailable JANIA POZO Referring Unavailable CALI CORDERO Primary Care Unavailable JANIA POZO Referring Unavailable CALI CORDERO Primary Care Unavailable JANIA POZO Attending Unavailable JANIA POZO Attending Unavailable CALI CORDERO Primary Care Unavailable CALI CORDERO Referring Unavailable CALI CORDERO Primary Care Unavailable CALI CORDERO Referring Unavailable ARIS TOLBERT Attending Unavailable CALI CORDERO Primary Care Unavailable CALI CORDERO Primary Care Unavailable SHANELLE STEVE Attending Unavailable CALI CORDERO Primary Care Unavailable GET FULTON Referring Unavailable CALI CORDERO Primary Care Unavailable WAI ADAIR Attending Unavailable WAI ADAIR Referring Unavailable CALI CORDERO Primary Care Unavailable VERN MILLS Attending Unavailable CALI CORDERO Primary Care Unavailable CALI CORDERO Primary Care Unavailable ARIS TOLBERT Consulting Unavailable BRIAN COLMENARES Referring UnavailBRIAN Greene Attending UnavailBRIAN Greene Admitting Unavailgilberto Rasmussen MD, , Ángela Unavailable Dr. Cali Cordero Primary Care Provider Dr. Cali Cordero Referring Provider Caroline CITY CARRIER, CITY CARRIER-C Kate Attending Provider Dr. Goldy Chavez Attending Provider Juan A Pacheco DO Unavailable Ángela Rasmussen MD Unavailable aCli Cordero MD Primary Care Provider SAM FERNANDO Attending Unavailable CALI CORDERO Primary Care Unavailable CALI CORDERO Primary Care Unavailable SAM FERNANDO Attending Unavailable CALI CORDERO Primary Care Unavailable SAM FERNANDO Attending Unavailable Gerri Curry APRN.CNP Unavailable CALI CORDERO Primary Care Unavailable JUAN A PACHECO Attending Unavailab le CALI CORDERO Primary Care Unavailable PROVIDER, UNKNOWN Referring Unavailable CALI CORDERO Primary Care Unavailable PROVIDER, UNKNOWN Referring Unavailable CALI CRODERO Primary Care Unavailable PROVIDER, UNKNOWN Referring Unavailable PROVIDER, UNKNOWN Referring Unavailable CALI CORDERO Primary Care Unavailable RAMÓN HORVATH Attending Unavailable Marcelo OIL TREATER.TECHNICAL SUPPORT CONSULTANT, Robson Unavailable Tannhof OIL TREATER.TECHNICAL SUPPORT CONSULTANT, Gerri Unavailable Unavail able Tannhof OIL TREATER.TECHNICAL SUPPORT CONSULTANT, Gerri Unavailable Consuelo GIMENEZ, Dr. Shankar Primary Care Provider Dr. Cali Cordero MD Referring Provider Amira CITY CARRIER-CCodi Attending Provider Amira CITY CARRIER-CCodi Referring Provider JANIA POZO Attending Unavailable CALI CORDERO Primary Care Unavailable JANIA POZO Attending Unavailable CALI CORDERO Primary Care Unavailable Jania Pozo MD Unavailable [phone] Caroline CITY CARRIER, Kate Attending Unavailable Elderyordy, Cali Primary Care Unavailable Caroline CITY CARRIER, Kate Referring Unavailable Elderyordy, Cali Primary Care Unavailable Codi Collier Referring Unavailable Codi Collier Attending Unavailable Elderbromynor, Cali Primary Care Unavailable Codi Collier Attending Unavailable Codi Collier Referring Unavailable Elderbrock, Cali Primary Care Unavailable Codi Collier Attending Unavailable Codi Collier Referring Unavailable Elderbrock, Cali Referring Unavailable Elderbrock, Cali Primary Care Unavailable Codi Collier Attending Unavailable Elderyordy, Cali Primary Care Unavailable ElderCali scales Referring Unavailable Codi Collier Attending Unavailable Caroline GRAFF, Kate Attending Unavailable Elderyordy, Cali Primary Care Unavailable Elderbromynor, Cali Referring Unavailable Caroline CITY CARRIER, Kate Attending Unavailable Elderbrock, Cali Primary Care Unavailable Elderbrock, Cali Referring Unavailable Elderbrock, Cali Referring Unavailable Elderbrock, Cali Primary Care Unavailable Codi Collier Attending Unavailable Von Toney Attending Unavailable Caroline CITY CARRIER, Kate Attending Unavailable Elderbrock, Cali Primary Care Unavailable Elderbrock, Cali Referring Unavailable ELDERBROCK, CALI D Primary Care Unavailable MORIAH ARREAGA Referring Unavailable ELDERBROMYNOR, CALI Valverde Primary Care Unavailable GERRI CURRY Referring Unavailabl e ELDERBROMYNOR, CALI D Primary Care Unavailable JANIA POZO Referring Unavailable CALI CORDERO Primary Care Unavailable JERE RUST Referring Unavailable JERE RUST Attending Unavailable ELDERCALI SCALES Primary Care Unavailable DORIS HERNÁNDEZ Attending Unavailable ELDERRICHARDCKCALI Primary Care Unavailable MORIAH ARREAGA Referring Unavailable MORIAH ARREAGA Attending Unavailable ELDERBROCK, CALI Maegan Primary Care Unavailable TANNHOGERRI Stokes Referring Unavailabl e ELDERBROCK, CALI Maegan Primary Care Unavailable MEGHANN STRICKLAND Attending Unavailable ELDERBROCK, CALI Valverde Primary Care Unavailable NEVILLE MELVA SHINE Referring Unavailable ELDERBROCK, CALI Valverde Primary Care Unavailable ANGELITA MAX Attending Unavailable ELDERBROCK, CALI Maegan Primary Care Unavailable NEVILLEMELVA Attending Unavailable ELDERBROCK, CALI Maegan Primary Care Unavailable NEVILLEMELVA Attending Unavailable ELDERBROCK, CALI Valverde Primary Care Unavailable GERRI CURRY Referring Unavailabl e MORIAH ARREAGA Attending Unavailable ELDERBROCK, CALI Maegan Primary Care Unavailable JERE RUST Attending Unavailable ELDERBROCK, CALI Valverde Primary Care Unavailable GERRI CURRY Referring Unavailabl e ELDERBROCK, CALI Maegan Primary Care Unavailable NEVILLE, MELVA SHINE Attending Unavailable ELDERBROCK, CALI Maegan Primary Care Unavailable SELF Referring Unavailable NEVILLE, MELVA SHINE Attending Unavailable ELDERBROCK, CALI Maegan Primary Care Unavailable GERRI CURRY Attending Unavailabl e ELDERBROCK, CALI Maegan Primary Care Unavailable TANNHOGERRI Stokes Referring Unavailabl e ELDERBROCK, CALI Maegan Primary Care Unavailable NEVILLE, MELVA SHINE Referring Unavailable ELDERBROCK, CALI Maegan Primary Care Unavailable NEVILLECLAUDIAMELVA SHINE Referring Unavailable ELDERBROCK, CALI Valverde Primary Care Unavailable NEVILLE, MELVA SHINE Referring Unavailable ELDERBROCK, CALI Maegan Primary Care Unavailable DORIS HERNÁNDEZ Referring Unavailable ELDERBROCKCALI Primary Care Unavailable DORIS HERNÁNDEZ Attending Unavailable Allergies Allergy Classification Reported Allergen(s) Allergy Type Date of Onset Reaction(s) Facility (20 sources) Gemfibrozil; Translations: [GEMFIBROZIL] Drug Allergy 9 Intolerance, Unknown, Anaphylaxis [facility] Work Phone: (20 sources) Penicillins; Translations: [PENICILLINS] Drug Allergy 7 Other: See Comments, Intolerance [facility] (20 sources) Pravastatin; Translations: [PRAVASTATIN] Drug Allergy 1 Myalgia, Unknown [facility] Work Phone: (20 sources) rosuvastatin; Translations: [ROSUVASTATIN] Drug Allergy 9 Intolerance, Rash, Diarrhea [facility] Work Phone: (20 sources) Simvastatin; Translations: [SIMVASTATIN] Drug Allergy 9 Intolerance, Unknown, Other (See Comments), Diarrhea [facility] Work Phone: (20 sources) Isosorbide; Translations: [ISOSORBIDE] Drug Allergy 2 Other: See Comments, Unknown, Intolerance [facility] Work Phone: (20 sources) Penicillins Drug Allergy 7 Other: See Comments, Unknown, Intolerance [facility] (20 sources) Penicillins Drug Allergy 7 Intolerance [facility] (11 sources) semaglutide; Translations: [SEMAGLUTIDE] Drug Allergy 5 GI Upset [facility] (11 sources) Tirzepatide; Translations: [TIRZEPATIDE] Drug Intolerance 5 GI Upset [facility] Work Phone: (1 source) Gemfibrozil Drug Allergy 5 [facility] (1 source) rosuvastatin Drug Allergy 5 [facility] (1 source) Simvastatin Drug Allergy 5 [facility] Medications Current Medications Medication Drug Class(es) Dates Sig (Normalized) Sig (Original) acetaminophen 500 mg oral tablet (20 sources) Start: 10-23-2022 End: 11-22-2022 take 2 tablets by mouth four times daily acetaminophen (TYLENOL) 500 mg tablet Take 2 tablets by mouth four times daily. 240 tablet 0 10/23/2022 11/22/2022 Active Start: 10-02-2022 End: 10-02-2022 take 2 tablets by mouth once daily acetaminophen (TYLENOL EXTRA STRENGTH) 500 mg tablet Take 2 tablets by mouth one time only for 1 dose. Day of surgery 2 tablet 0 10/02/2022 10/02/2022 Start: 01-27-2019 acetaminophen (TYLENOL) 325 MG tablet 1 (one) tablet (325 mg total) . 0 01/27/2019 Active Start: 09-13-2017 End: 07-31-2019 take 2 tablets by mouth every four hours as needed for pain Acetaminophen (Tylenol) 325 mg tablet Discontinued 650 mg PO Q4H as needed for fever or pain September 13, 2017 1:00am July 31, 2019 2:01pm Comment on above: Take 2 tablets by mo [facility] one time only for 1 dose. Day of surgery Take 325 mg by mouth every 6 hours as needed. Take 2 tablets by mo [facility] four times daily. [id number] 200 actuat albuterol 0.09 mg/actuat metered dose inhaler (20 sources) beta2-Adrenergic Agonist Start: 02-20-2025 take 2 puff(s) by inhalation every four hours as needed for wheezing albuterol HFA (PROVENTIL HFA, VENTOLIN HFA) 90 mcg/actuation inhaler Inhale 2 puffs as instructed every 4 hours as needed for wheezing/shortness of breath. 1 each 1 02/20/2025 Active Start: 09-22-2019 Albuterol Sulf ate (Ventolin Hfa) 90 mcg/actuation HFA aerosol inhaler Active 2 NMA INHALATION Q4H as needed for shortness of breath or wheezing 21 03September 22, 2019 1:00am Start: 09-22-2019 take 1 puff(s) by in halation every four hours Albuterol Sulfate (Ventolin Hfa) 90 mcg/actuation HFA aerosol inhaler Active 2 PUFF INHALATION Q4H September 22, 2019 12:00am Start: 01-27-2019 albuterol (PRO VENTIL) 2.5 mg /3 mL (0.083 %) nebulizer solution INHALE 1 AMPULE BY MOUTH Q6H PRN 0 01/27/2019 Active Start: 11-03-2016 End: 07-31-2019 Albuterol Sulfate 1 PUFF inh aler Discontinued 1 NMA INHALATION EVERY 4 HOURS NEEDED as needed for Shortness Of Breath November 03, 2016 1:00am July 31, 2019 2:01pm Start: 11-03-2016 End: 07-31-2019 take 1 puff(s) by inhalation every four hours as needed Albuterol Sulfate Discontinued 1 PUFF INHALATION EVERY 4 HOURS NEEDED November 03, 2016 12:00am July 31, 2019 1:01pm 1 ml alirocumab 75 mg/ml auto-injector (20 sources) PCSK9 Inhibitor Start: 08-18-2021 End: 11-25-2023 alirocumab (Praluent Pen) 75 mg/mL injection Inject 1 mL (75 mg total) under the skin . 0 06/18/2022 Active Comment on above: Inject 1 mL subcutan eously every other week. apixaban 5 mg oral tablet (20 sources) Factor Xa Inhibitor Start: 01-17-2025 take 1 tablet by mouth twice daily apixaban (ELIQUIS) 5 mg tab(s) Take 1 tablet by mouth two times a day. 60 tablet 11 01/17/2025 Active Start: 10-23-2022 End: 11-24-2024 take 1 tablet by mouth twice daily apixaban (ELIQUIS) 5 mg tab(s) Take 1 tablet by mouth two times a day. 60 tablet 11 01/17/2025 Active Comment on above: Take 1 tablet by breonna th twice daily. Take 1 tablet by breonna th two times a day. aspirin 81 mg delayed release oral tablet (20 sources) Platelet Aggregation Inhibitor, Nonsteroidal Anti-inflammatory Drug Start: 11-25-2023 take 1 tablet by mouth once daily aspirin, enteric coated (ECOTRIN LOW STRENGTH) 81 mg EC tablet Take 1 tablet by mouth once daily. 11/25/2023 Active Start: 02-20-2016 End: 10-17-2022 take 1 tablet by mouth once daily aspirin, enteric coated (ECOTRIN LOW STRENGTH) 81 mg EC tablet Take 1 tablet by mouth once daily. 11/25/2023 Active Comment on above: aspirin ASPIRIN 81 M G TABS One tablet by mouth daily ASPIRIN [id number] Daya Deal RN 02-20-2016 [facility] ([id number]) Take 1 tablet by breonna th once daily. cefadroxil 500 mg oral capsule (3 sources) Cephalosporin Antibacterial Start: 11-16-19 End: 11-23-19 take 1 capsule by mouth twice daily cefADROxil (DURICEF) 500 mg capsule Take 1 capsule by mouth two times a day for 7 days. 14 capsule 11/16/2024 11/23/2024 Active cholecalciferol 0.025 mg oral capsule (12 sources) Vitamin D Start: 02-15-20 take 1 capsule by mouth once daily Cholecalciferol, Vitamin D3, 25 mcg (1,000 unit) cap Take 25 mcg by mouth once daily. 02/15/2024 Active Start: 02-15-2024 take 1 capsule by mo ut twice daily Cholecalciferol (Vitamin D3) (Vitamin D3) 25 mcg (1,000 unit) capsule Active 25 ug PO TWICE A DAY February 15, 2024 12:00am citalopram 20 mg oral tablet (2 sources) Serotonin Reuptake Inhibitor Start: 09-24-2023 End: 10-24-2023 take 1 tablet by mouth once daily citalopram hydrobromide (CELEXA) 20 mg tablet Indications: Grief reaction Take 1 tablet by mouth once daily. 30 tablet 3 09/24/2023 10/24/2023 Discontinued Start: 09-03-2023 take 1 tablet by breonna th once daily citalopram hydrobromide (CELEXA) 10 mg tablet Indications: Grief reaction Take 1 tablet by mouth once daily. 30 tablet 1 09/03/2023 Active Comment on above: Take 1 tablet by breonna once daily. doxycycline hyclate 100 mg oral tablet (1 source) Tetracycline-class Drug Start: 2022 End: 2022 take 1 tablet by mouth twice daily doxycycline hyclate (VIBRA-TABS) 100 MG tablet Indications: Chronic frontal sinusitis , Chronic ethmoiditis Take 1 (one) tablet (100 mg total) by mouth 2 (two) times a day for 14 days . 28 tablet 0 07/13/2023 07/27/2023 Active 2 ml dupilumab 150 mg/ml auto-injector (9 sources) Interleukin-4 Receptor alpha Antagonist Start: 2024 inject 300 mg by subcutaneous injection every other week dupilumab 300 mg/2 mL subcutaneous pen injector (DUPIXENT) Inject 300 mg subcutaneously every 2 weeks. 05/01/2025 Active 1 ml evolocumab 140 mg/ml auto-injector (20 sources) PCSK9 Inhibitor Start: 2023 End: 2024 inject 140 mg by subcutaneous injection every other week evolocumab (REPATHA SURECLICK) 140 mg/mL pen injector Inject 140 mg subcutaneously every 2 weeks. 2 Each 11/02/2024 Active Comment on above: Inject 140 mg subcut aneously every 2 weeks. famotidine 20 mg oral tablet (20 sources) Histamine-2 Receptor Antagonist Start: 2023 End: 2024 take 1 tablet by mouth at bedtime as needed for gastroesophageal reflux disease famotidine (PEPCID) 20 mg tablet Indications: Gastroesophageal reflux disease with esophagitis without hemorrhage Take 1 tablet by mouth at bedtime as needed (Heartburn). 30 tablet 5 09/06/2024 03/05/2025 Active Fluticasone Propion-Salmetero l (20 sources) Corticosteroid, beta2-Adrenergic Agonist Start: 2023 Fluticasone Propion-Salmeterol (Advair Diskus) 500-50 mcg/dose blister with device Active 1 NMA INHALATION Q12H 10 09May 22, 2024 11:36am Start: 05-22-2024 Fluticasone Pr opion-Salmeterol (Advair Diskus) 500-50 mcg/dose blister with device Active 1 NMA INHALATION Q12H May 22, 2024 11:36am Start: 03-25-2023 End: 05-22-2024 Fluticasone Propion-Salmeter ol (Advair Diskus) 500-50 mcg/dose blister with device Discontinued 1 NMA INHALATION Q12H 1 March 25, 2023 2:28pm May 22, 2024 11:36am Start: 03-25-2023 End: 05-22-2024 Fluticasone Propion-Salmeter ol (Advair Diskus) 500-50 mcg/dose blister with device Discontinued 1 NMA INHALATION Q12H March 25, 2023 2:28pm May 22, 2024 11:36am Start: 03-25-2023 Fluticasone Pr opion-Salmeterol (Advair Diskus) 500-50 mcg/dose blister with device Active 1 INH INHALATION Q12H March 25, 2023 1:28pm Start: 03-25-2023 Fluticasone Pr opion-Salmeterol (Advair Diskus) 500-50 mcg/dose blister with device Active 1 INH INHALATION Q12H March 25, 2023 2:28pm Start: 06-24-2021 End: 03-25-2023 Fluticasone Propion-Salmeter ol (Advair Diskus) 500-50 mcg/dose blister with device Discontinued 1 NMA INHALATION Q12H 1 June 24, 2021 12:18pm March 25, 2023 2:28pm Start: 06-24-2021 End: 03-25-2023 Fluticasone Propion-Salmeter ol (Advair Diskus) 500-50 mcg/dose blister with device Discontinued 1 NMA INHALATION Q12H June 24, 2021 12:18pm March 25, 2023 2:28pm Start: 06-24-2021 End: 03-25-2023 Fluticasone Propion-Salmeter ol (Advair Diskus) 500-50 mcg/dose blister with device Discontinued 1 INH INHALATION Q12H June 24, 2021 11:18am March 25, 2023 1:28pm Start: 06-24-2021 End: 03-25-2023 Fluticasone Propion-Salmeter ol (Advair Diskus) 500-50 mcg/dose blister with device Discontinued 1 INH INHALATION Q12H June 24, 2021 12:18pm March 25, 2023 2:28pm Start: 06-24-2021 Fluticasone Pr opion-Salmeterol (Advair Diskus) 500-50 mcg/dose blister with device Active 1 INH INHALATION Q12H June 24, 2021 11:18am Start: 10-13-2020 take 1 puff(s) by in halation every twelve hours ADVAIR DISKUS 500-50 mcg/dose dsdv INHALE 1 (ONE) puff EVERY 12 HOURS 10/13/2020 Active Start: 10-13-2020 take 1 puff(s) by in halation every twelve hours fluticasone propion-salmeteroL (Advair Diskus) 500-50 mcg/dose diskus inhaler INHALE 1 (ONE) puff EVERY 12 HOURS 0 10/13/2020 Active Start: 02-12-2020 End: 06-24-2021 Fluticasone Propion-Salmeter ol (Advair Diskus) 500-50 mcg/dose blister with device Discontinued 1 NMA INHALATION Q12H 1 February 12, 2020 9:28am June 24, 2021 12:18pm Start: 02-12-2020 End: 06-24-2021 Fluticasone Propion-Salmeter ol (Advair Diskus) 500-50 mcg/dose blister with device Discontinued 1 NMA INHALATION Q12H February 12, 2020 9:28am June 24, 2021 12:18pm Start: 02-12-2020 End: 06-24-2021 Fluticasone Propion-Salmeter ol (Advair Diskus) 500-50 mcg/dose blister with device Discontinued 1 INH INHALATION Q12H February 12, 2020 9:28am June 24, 2021 12:18pm Start: 02-12-2020 End: 06-24-2021 Fluticasone Propion-Salmeter ol (Advair Diskus) 500-50 mcg/dose blister with device Discontinued 1 INH INHALATION Q12H February 12, 2020 8:28am June 24, 2021 11:18am Start: 09-25-2019 End: 02-12-2020 Fluticasone Propion-Salmeter ol (Advair Diskus) 500-50 mcg/dose blister with device Discontinued 1 NMA INHALATION Q12H 1 September 25, 2019 1:00am February 12, 2020 9:29am Start: 09-25-2019 End: 02-12-2020 Fluticasone Propion-Salmeter ol (Advair Diskus) 500-50 mcg/dose blister with device Discontinued 1 NMA INHALATION Q12H September 25, 2019 1:00am February 12, 2020 9:29am Start: 09-25-2019 End: 02-12-2020 Fluticasone Propion-Salmeter ol (Advair Diskus) 500-50 mcg/dose blister with device Discontinued 1 INH INHALATION Q12H September 25, 2019 1:00am February 12, 2020 9:29am Start: 09-25-2019 End: 02-12-2020 Fluticasone Propion-Salmeter ol (Advair Diskus) 500-50 mcg/dose blister with device Discontinued 1 INH INHALATION Q12H 1 September 25, 2019 12:00am February 12, 2020 8:29am Start: 01-13-2019 End: 07-31-2019 Fluticasone Propion-Salmeter ol (Advair Diskus) 500-50 mcg/dose blister with device Discontinued 1 NMA INHALATION TWICE A DAY 60 6 January 13, 2019 2:10pm July 31, 2019 2:01pm Start: 01-13-2019 End: 07-31-2019 Fluticasone Propion-Salmeter ol (Advair Diskus) 500-50 mcg/dose blister with device Discontinued 1 NMA INHALATION TWICE A DAY 60 January 13, 2019 2:10pm July 31, 2019 2:01pm Start: 01-13-2019 End: 07-31-2019 Fluticasone Propion-Salmeter ol (Advair Diskus) 500-50 mcg/dose blister with device Discontinued 1 INH INHALATION TWICE A DAY 60 January 13, 2019 2:10pm July 31, 2019 2:01pm Start: 01-13-2019 End: 07-31-2019 Fluticasone Propion-Salmeter ol (Advair Diskus) 500-50 mcg/dose blister with device Discontinued 1 INH INHALATION TWICE A DAY 60 January 13, 2019 1:10pm July 31, 2019 1:01pm Start: 01-13-2019 End: 01-13-2019 Fluticasone Propion-Salmeter ol (Advair Diskus) 500-50 mcg/dose blister with device Discontinued 1 NMA INHALATION TWICE A DAY January 13, 2019 12:00am January 13, 2019 2:10pm Start: 01-13-2019 End: 01-13-2019 Fluticasone Propion-Salmeter ol (Advair Diskus) 500-50 mcg/dose blister with device Discontinued 1 INH INHALATION TWICE A DAY January 13, 2019 12:00am January 13, 2019 2:10pm Start: 01-13-2019 End: 01-13-2019 Fluticasone Propion-Salmeter ol (Advair Diskus) 500-50 mcg/dose blister with device Discontinued 1 INH INHALATION TWICE A DAY January 12, 2019 11:00pm January 13, 2019 1:10pm Comment on above: INHALE 1 (ONE) puff EVERY 12 HOURS 2 ml gentamicin 40 mg/ml injection (1 source) Start: 2 End: 2 gentamicin 40 mg/mL 206 mg injection 12 hr guaiFENesin 1200 mg extended release oral tablet (20 sources) Start: 9 End: 9 take 1 tablet by mouth twice daily as needed for congestion, then take 1 tablet by mouth every twelve hours as needed for congestion Guaifenesin (Mucinex) 1,200 mg tablet extended release 12hr Active 1200 mg PO TWICE A DAY as needed for Congestion September 25, 2019 3:01pm Start: 01-27-2019 take 1 tablet by breonna th every twelve hours as needed guaiFENesin (MUCINEX) 600 mg 12 hr tablet Take 1 tablet by mouth twice daily as needed for cold/allergy symptoms. 01/27/2019 Active Start: 09-13-2017 End: 03-02-2019 take 1 tablet by mouth every twelve hours as needed for congestion, then take 1 tablet by mouth every twelve hours as needed for congestion Guaifenesin (Mucinex) 600 mg tablet extended release 12hr Discontinued 600 mg PO Q12H as needed for congestion September 13, 2017 1:00am March 02, 2019 3:32pm Comment on above: Take 1 tablet by breonna th twice daily as needed for cold/allergy symptoms. hydroCHLOROthiazide 12.5 mg oral capsule (2 sources) Thiazide Diuretic Start : 01-23 End: 01-23 take 1 capsule by mouth once daily hydroCHLOROthiazide 12.5 mg capsule Indications: Essential hypertension Take 1 capsule by mouth once daily. 30 capsule 11 01/24/2024 01/23/2025 Active hydrocortisone 25 mg/ml topical cream (8 sources) Corticosteroid Start : 10-25 Hydrocortisone 30 GM cream with perineal applicator Active 30 g TP DAILY 1 October 25, 2019 1:00am ammonium lactate 120 mg/ml topical lotion (7 sources) Start : 11-23 ammonium lactate (LAC-HYDRIN) 12 % lotion Apply 1 application to affected area as needed (twice daily). 11/23/2024 Active lansoprazole 30 mg delayed release oral capsule (20 sources) Proton Pump Inhibitor Start : 03-07 End: 09-28 take 1 capsule by mouth twice daily Lansoprazole (Prevacid) 30 mg capsule,delayed release(DR/EC) Discontinued 30 mg PO TWICE A DAY 60 December 07, 2022 8:01am September 28, 2024 3:26pm Start: 10-19-2017 End: 03-02-2019 take 1 capsule by mouth twice daily Lansoprazole (Prevacid) 30 mg capsule,delayed release(DR/EC) Discontinued 30 mg PO TWICE A DAY 60 November 28, 2018 2:23pm March 02, 2019 3:33pm Start: 09-01-2013 End: 03-22-2026 take 1 capsule by mouth once daily before breakfast lansoprazole (PREVACID) 30 mg capsule Take 1 capsule by mouth daily before breakfast. 1/2 hr before meal. 30 capsule 11 03/22/2025 03/22/2026 Active Comment on above: Take 30 mg by mouth once daily. Take 1 capsule by mo uth daily before breakfast. 1/2 hr before meal. levoFLOXacin 750 mg oral tablet (20 sources) Quinolone Antimicrobial Start: 04-26-20 End: 05-01-20 take 1 tablet by mouth once daily levoFLOXacin (LEVAQUIN) 750 mg tablet Take 1 tablet by mouth once daily for 5 days. 5 tablet 0 04/26/2024 05/01/2024 Active Start: 07-14-2022 End: 07-14-2022 levoFLOXacin 500 mg tab(s) (LEVAQUIN) Start: 07-31-2019 End: 09-08-2019 take 1 tablet by mouth once daily Levofloxacin 750 mg tablet Discontinued 750 mg PO DAILY 10 July 31, 2019 12:00am September 08, 2019 2:57pm Start: 12-14-2017 End: 12-17-2017 take 1 tablet by mouth every twenty-four hours Levofloxacin (Levaquin) 750 mg tablet Discontinued 750 mg PO Q24H 3 3 0 December 14, 2017 12:00am December 16, 2017 12:00am December 17, 2017 12:07am Start: 12-09-2017 End: 12-14-2017 take 1 tablet by mouth every twenty-four hours Levofloxacin (Levaquin) 500 mg tablet Discontinued 500 mg PO Q24H 5 5 0 December 09, 2017 1:00am December 13, 2017 12:00am December 14, 2017 12:06am Start: 09-13-2017 End: 09-20-2017 take 1 tablet by mouth every twenty-four hours Levofloxacin (Levaquin) 500 mg tablet Discontinued 500 mg PO Q24H 7 7 0 September 13, 2017 1:00am September 19, 2017 1:00am September 20, 2017 1:05am loratadine 10 mg oral tablet (20 sources) Start: 01-27-2019 take 1 tablet by mouth once daily loratadine (CLARITIN) 10 mg tablet Take 1 tablet by mouth once daily. 01/27/2019 Active Comment on above: Take 1 tablet by breonna th once daily. losartan potassium 100 mg oral tablet (20 sources) Angiotensin 2 Receptor Ari Start: 05-22-2024 End: 05-22-2025 take 1 tablet by mouth once daily losartan (COZAAR) 100 mg tablet Indications: Essential hypertension Take 1 tablet by mouth once daily. 90 tablet 3 05/22/2024 Active Start: 01-12-2023 End: 05-20-2024 take 1 tablet by mouth once daily losartan (COZAAR) 100 mg tablet Indications: Essential hypertension Take 1 tablet by mouth once daily. 90 tablet 3 01/12/2023 05/20/2024 Discontinued Start: 08-18-2022 End: 10-23-2022 take 1 tablet by mouth once daily losartan (COZAAR) 100 mg tablet Take 1 tablet by mouth once daily. 30 tablet 5 08/18/2022 10/23/2022 Discontinued Start: 03-19-2022 End: 01-12-2023 Losartan 50 mg tablet Active 50 mg PO July 07, 2022 12:00am Start: 10-19-2019 End: 11-30-2023 take 1 tablet by mouth once daily Losartan 25 mg tablet Discontinued 25 mg PO DAILY 90 3 October 21, 2020 10:14am November 30, 2023 3:29pm Start: 11-03-2016 End: 03-02-2019 take 1 tablet by mouth once daily Losartan 25 mg tablet Discontinued 25 mg PO DAILY 90 3 April 05, 2018 3:57pm March 02, 2019 3:34pm Comment on above: Take 25 mg by mouth once daily. Take 1 tablet by breonna th once daily. methylPREDNISolone (1 source) Corticosteroid Start: 2022 End: 2022 methylPREDNISolone (MEDROL DOSEPACK) 4 mg tablet Indications: Nasal polyp Follow package directions . 21 tablet 0 07/13/2023 07/19/2023 Active 24 hr metoprolol succinate 50 mg extended release oral tablet (20 sources) beta-Adrenergic Ari Start: 2024 End: 2025 take 1 tablet by mouth once daily metoprolol succinate ER (TOPROL XL) 50 mg 24 hr tablet Indications: Essential hypertension , Palpitations Take 1 tablet by mouth once daily. 30 tablet 11 12/27/2024 12/27/2025 Active Start: 12-15-2024 End: 12-15-2025 take 1 tablet by mouth once daily metoprolol succinate ER (TOPROL XL) 25 mg 24 hr tablet Indications: Essential hypertension , Palpitations Take 1 tablet by mouth once daily. 30 tablet 11 12/15/2024 12/27/2024 Discontinued Start: 11-03-2022 End: 11-16-2022 take 0.5 tablet by mouth twice daily metoprolol tartrate, short acting, (LOPRESSOR) 50 mg tablet Take 0.5 tablets by mouth twice daily. Hold for SBP 0 11/03/2022 11/16/2022 Discontinued Start: 10-23-2022 End: 11-03-2022 take 1 tablet by mouth every eight hours metoprolol tartrate, short acting, (LOPRESSOR) 50 mg tablet Take 1 tablet by mouth every 8 hours. 90 tablet 2 10/23/2022 11/03/2022 Discontinued Start: 08-19-2022 End: 10-02-2022 take 1 tablet by mouth once daily metoprolol tartrate, short acting, (LOPRESSOR) 100 mg tablet Take 1 tablet by mouth one time only for 1 dose. For day of surgery. 1 tablet 0 08/19/2022 10/02/2022 Discontinued (Course of therapy completed) Comment on above: Take 1 tablet by breonna th one time only for 1 dose. For day of surgery. Take 1 tablet by breonna th one time only for 1 dose. Day of surgery Take 1 tablet by breonna th every 8 hours. Take 0.5 tablets by mouth twice daily. Hold for SBP <100/x or heart rate <60 mometasone furoate 0.05 mg/actuat metered dose nasal spray (3 sources) Corticosteroid Start: 07-13-20 End: 10-11-19 take 2 spray(s) nasal route once daily mometasone (NASONEX) 50 mcg/actuation nasal spray Indications: Nasal polyp Instill 2 (two) sprays into each nostril daily . 17 g 3 07/13/2023 Active montelukast 10 mg oral tablet (18 sources) Leukotriene Receptor Antagonist Start: 03-25-20 take 1 tablet by mouth once daily in the evening Montelukast 10 mg tablet Active 10 mg PO EVERY EVENING 30 March 25, 2023 12:00am Start: 02-03-2018 End: 03-02-2019 take 1 tablet by mouth once daily in the evening Montelukast (Singulair) 10 mg tablet Discontinued 10 mg PO EVERY EVENING 30 February 03, 2018 12:00am March 02, 2019 3:34pm nitroglycerin 0.4 mg sublingual tablet (20 sources) Nitrate Vasodilator Start: 01-27-2020 End: 06-06-2025 nitroglycerin sublingual (NITROQUICK) 0.4 mg SL tablet Indications: 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 25 tablet 2 06/06/2025 Active Start: 10-28-2018 End: 07-31-2019 Nitroglycerin 0.4 mg tablet, sublingual Discontinued 0.4 mg SL every 5 to 15 minutes as needed for chest pain 25 2 October 28, 2018 1:00am July 31, 2019 2:02pm until response; do not exceed 3 doses per episode Comment on above: Dissolve 0.4 mg unde r the tongue every 5 minutes as needed. ondansetron 4 mg disintegrating oral tablet (8 sources) Serotonin-3 Receptor Antagonist Start: 0 take 4-8 mg by mouth every eight hours as needed for nausea Ondansetron 4 MG tablet Active 4 - 8 mg PO EVERY 8 HOURS NEEDED as needed for Nausea October 25, 2019 1:00am perflutren lipid microspheres 1.3 mL in NaCl (PF) 0.9% 10 mL injection (DEFINITY) (20 sources) Start: 2 End: perflutren lipid microspheres 1.3 mL in NaCl (PF) 0.9% 10 mL injection (DEFINITY) Start: 03-19-2022 End: 06-18-2023 perflutren lipid microsphere s 1.3 mL in NaCl (PF) 0.9% 10 mL injection (DEFINITY) semaglutide (OZEMPIC) 0.25 mg or 0.5 mg (2 mg/3 mL) pen (19 sources) Start: 11-24-2024 End: 02-22-2025 inject 0.5 mg by subcutaneous injection every week semaglutide (OZEMPIC) 0.25 mg or 0.5 mg (2 mg/3 mL) pen Indications: Type 2 diabetes mellitus without complication, without long-term current use of insulin (HCC) Inject 0.5 mg subcutaneously one time a week. 3 mL 2 11/24/2024 02/22/2025 Active Start: 09-08-2024 End: 12-07-2024 semaglutide (OZEMPIC) 0.25 m g or 0.5 mg (2 mg/3 mL) pen Indications: Type 2 diabetes mellitus without complication, without long-term current use of insulin (HCC) Inject 0.25 mg subcutaneously one time a week. 3 mL 2 09/08/2024 12/07/2024 Active 125 ml sodium chloride 9 mg/ml prefilled syringe (20 sources) Start: 03-19-2022 End: 09-17-2023 sodium chloride 0.9 % (flush) 10 mL (BD POSIFLUSH) traMADol hydrochloride 50 mg oral tablet (6 sources) Opioid Agonist Start: 11-13-2022 End: 11-18-2022 take 1 tablet by mouth twice daily as needed for pain traMADol (ULTRAM) 50 mg tablet Indications: S/P CABG x 2 Take 1 tablet by mouth twice daily as needed for pain for up to 5 days. 10 tablet 0 11/13/2022 11/18/2022 Active Start: 10-23-2022 End: 10-30-2022 take 1 tablet by mouth twice daily as needed for pain traMADol (ULTRAM) 50 mg tablet Indications: S/P CABG x 2 Take 1 tablet by mouth twice daily as needed for pain for up to 7 days. 14 tablet 0 10/23/2022 10/30/2022 Active Comment on above: Take 1 tablet by breonna th twice daily as needed for pain for up to 7 days. Take 1 tablet by breonna th twice daily as needed for pain for up to 5 days. Completed/Discontinued Medications Medication Drug Class(es) Dates Sig (Normalized) Sig (Original) acetaminophen 325 mg / HYDROcodone bitartrate 5 mg oral tablet (8 sources) Opioid Agonist Start: 12-17-2017 End: 05-25-2018 Hydrocodone-Acetami nophen 1 TABLET tablet Discontinued 1 {tbl} PO EVERY 6 HOURS NEEDED as needed for Moderate-Severe Pain (-07/13) 28 7 0 December 17, 2017 12:00am May 25, 2018 10:01am Chronic ethmoidal sinusitis Deviated nasal septum Chronic ethmoidal sinusitis Deviated nasal septum Start: 12-17-2017 End: 05-25-2018 take 1 tablet by mouth every six hours as needed Hydrocodone-Acetaminophen Discontinued 1 TABLET PO EVERY 6 HOURS NEEDED 28 7 December 16, 2017 11:00pm May 25, 2018 9:01am albuterol 0.833 mg/ml / ipratropium bromide 0.167 mg/ml inhalation solution (20 sources) Anticholinergic, beta2-Adrenergic Agonist Start: 09-13-2017 End: 07-31-2019 take 1 mL by inhalation every four hours as needed for chronic obstructive pulmonary disease Ipratropium-Albuterol 0.5 mg-3 mg(2.5 mg base)/3 mL solution for nebulization Discontinued 3 mL INHALATION Q4H as needed for COPD J44.9 180 6 October 31, 2018 1:52pm July 31, 2019 2:02pm Start: 09-13-2017 End: 07-31-2019 take 1 mL by inhalation every four hours Ipratropium-Albuterol Discontinued 3 ML INHALATION Q4H 180 October 31, 2018 12:52pm July 31, 2019 1:02pm amiodarone hydrochloride 400 mg oral tablet (4 sources) Antiarrhythmic Start: 10-23-2022 End: 11-11-2022 take 1 tablet by mouth three times daily, then take 1 tablet by mouth twice daily, then take 1 tablet by mouth once daily, then take 0.5 tablet by mouth once daily Amiodarone HCl 400 mg tablet Take 1 tablet by mouth three times daily for 4 days, THEN 1 tablet by mouth twice daily for 5 days, THEN 1 tablet by mouth once daily for 5 days, THEN 1/2 of a tablet by mouth once daily for 5 days. 30 tablet 0 10/23/2022 11/03/2022 Discontinued (Side Effects) Comment on above: Take 1 tablet by breonna th three times daily for 4 days, THEN 1 tablet by mouth twice daily for 5 days, THEN 1 tablet by mouth once daily for 5 days, THEN 1/2 of a tablet by mouth once daily for 5 days. 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 30 tablet 11 09/04/2024 03/12/2025 Discontinued amoxicillin 875 mg / clavulanate 125 mg oral tablet (20 sources) Penicillin-class Antibacterial Start: 03-06-2025 End: 03-13-2025 take 1 tablet by mouth twice daily amoxicillin-clavu lanate potassium (AUGMENTIN) 875-125 mg per tablet Take 1 tablet by mouth two times a day for 7 days. 14 tablet 03/06/2025 03/12/2025 Discontinued (Discontinued by Patient) Start: 07-01-2024 End: 09-06-2024 take 1 tablet by mouth three times daily amoxicillin-clavulanate potassium (AUGMENTIN) 875-125 mg per tablet Take 875 mg by mouth three times a day. 07/01/2024 09/06/2024 Discontinued (Course of therapy completed) Start: 03-07-2019 End: 04-10-2019 Amoxicillin-Pot Clavulanate (Augmentin) 875-125 mg tablet Discontinued 1 {tbl} PO TWICE A DAY March 07, 2019 12:00am April 10, 2019 1:51pm Start: 10-19-2017 End: 12-06-2017 Amoxicillin-Pot Clavulanate (Augmentin) 875-125 mg tablet Discontinued 1 {tbl} PO TWICE A DAY October 19, 2017 1:00am December 06, 2017 3:45pm benzonatate 200 mg oral capsule (8 sources) Non-narcotic Antitussive Start: 10-21-2018 End: 03-02-2019 take 1 capsule by mouth three times daily as needed for cough Benzonatate 200 mg capsule Discontinued 200 mg PO THREE TIMES A DAY as needed for cough 90 0 October 21, 2018 1:00am March 02, 2019 3:32pm 120 actuat budesonide 0.16 mg/actuat / formoterol fumarate 0.0045 mg/actuat metered dose inhaler (16 sources) Corticosteroid, beta2-Adrenergic Agonist Start: 10-31-2018 End: 01-13-2019 Budesonide-Formote rol (Symbicort) 160-4.5 mcg/actuation HFA aerosol inhaler Discontinued 2 NMA INHALATION TWICE A DAY October 31, 2018 1:00am January 13, 2019 1:47pm Start: 10-31-2018 End: 01-13-2019 take 1 puff(s) by inhalation twice daily Budesonide-Formoterol (Symbicort) 160-4.5 mcg/actuation HFA aerosol inhaler Discontinued 2 PUFF INHALATION TWICE A DAY October 31, 2018 12:00am January 13, 2019 12:47pm Start: 01-19-2018 End: 06-29-2018 Budesonide-Formoterol (Symbi rolan) 160-4.5 mcg/actuation HFA aerosol inhaler Discontinued 2 NMA INHALATION TWICE A DAY January 19, 2018 12:00am June 29, 2018 1:07pm Start: 01-19-2018 End: 06-29-2018 take 1 puff(s) by inhalation twice daily Budesonide-Formoterol (Symbicort) 160-4.5 mcg/actuation HFA aerosol inhaler Discontinued 2 PUFF INHALATION TWICE A DAY January 18, 2018 11:00pm June 29, 2018 12:07pm carvedilol 25 mg oral tablet (20 sources) alpha-Adrenergic Ari, beta-Adrenergic Ari Start: 01-30-2025 End: 01-30-2026 take 1 tablet by mouth twice daily carvedilol (COREG) 25 mg tablet Take 1 tablet by mouth two times a day. 60 tablet 11 01/30/2025 05/16/2025 Discontinued Start: 09-09-2022 take 1.5 tablets by mouth twice daily at mealtime carvedilol (COREG) 25 mg tablet Indications: Essential hypertension Take 1.5 tablets by mouth twice daily with meals. 90 tablet 11 09/09/2022 Suspended Start: 03-05-2022 End: 02-15-2024 Carvedilol 25 mg tablet Discontinued 25 mg PO July 07, 2022 12:00am February 15, 2024 2:49pm Start: 06-24-2021 End: 03-05-2022 take 1 tablet by mouth twice daily at mealtime carvedilol (COREG) 12.5 mg tablet Indications: Coronary artery disease involving nome coronary artery of nome heart without angina pectoris , Essential hypertension Take 1 tablet by mouth twice daily with meals. 60 tablet 11 06/24/2021 03/05/2022 Discontinued Start: 09-25-2019 End: 02-15-2024 take 1 tablet by mouth twice daily at mealtime Carvedilol 6.25 mg tablet Discontinued 6.25 mg PO TWICE A DAY 180 3 May 28, 2021 8:27am February 15, 2024 2:49pm must administer with a meal/food Start: 11-03-2016 End: 09-25-2019 take 1 tablet by mouth twice daily Carvedilol 3.125 mg tablet Discontinued 3.125 mg PO TWICE A DAY 180 3 January 30, 2019 12:04pm September 25, 2019 3:03pm Comment on above: Take 1 tablet by breonna th twice daily with meals. Take 1.5 tablets by mouth twice daily with meals. chlorhexidine gluconate 1.2 mg/ml mouthwash (3 sources) Start: 10-02-2022 End: 10-07-2022 Chlorhexidine Gluconate (PERIDEX) 0.12 % solution Use 15 mL as instructed twice daily for 5 days. Rinse around mouth for 30 seconds then expectorate 150 mL 0 10/02/2022 10/07/2022 Start: 08-19-2022 End: 08-24-2022 Chlorhexidine Gluconate (PER IDEX) 0.12 % solution Use 15 mL as instructed twice daily for 5 days. Rinse around mouth for 30 seconds then expectorate 150 mL 0 08/19/2022 08/24/2022 Comment on above: Use 15 mL as instruc amanda twice daily for 5 days. Rinse around mouth for 30 seconds then expectorate ciprofloxacin 500 mg oral tablet (8 sources) Quinolone Antimicrobial Start: 2019 End: 2020 take 1 tablet by mouth twice daily Ciprofloxacin Hcl 500 MG tablet Discontinued 500 mg PO TWICE A DAY 14 October 25, 2019 1:00am November 04, 2020 2:35pm clopidogrel 75 mg oral tablet (20 sources) P2Y12 Platelet Inhibitor Start: 2016 End: 2023 take 1 tablet by mouth once daily Clopidogrel 75 mg tablet Discontinued 75 mg PO DAILY 90 June 06, 2019 10:06am September 25, 2019 3:03pm Comment on above: Take 1 tablet by breonna once daily. cyclobenzaprine hydrochloride 10 mg oral tablet (8 sources) Muscle Relaxant Start: 2017 End: 2018 take 1 tablet by mouth three times daily as needed for muscle spasms Cyclobenzaprine 10 mg tablet Discontinued 10 mg PO THREE TIMES A DAY as needed for muscle spasm 30 May 25, 2018 12:00am March 02, 2019 3:32pm dapagliflozin 10 mg oral tablet (20 sources) Sodium-Glucose Cotransporter 2 Inhibitor Start: 2021 End: 2023 take 1 tablet by mouth once daily Dapagliflozin Propanediol (Farxiga) 10 mg tablet Discontinued 10 mg PO DAILY 30 July 07, 2022 12:00am November 30, 2023 3:28pm Comment on above: Take 10 mg by mouth once daily. diclofenac sodium 0.01 mg/mg topical gel (8 sources) Nonsteroidal Anti-inflammatory Drug Start: 2016 End: 2017 apply 2 g topically four times daily as needed for pain Diclofenac Sodium (Voltaren) 1 % gel Discontinued 2 g TOPICAL .QID as needed for pain September 13, 2017 1:00am October 19, 2017 11:56am dicyclomine hydrochloride 10 mg oral capsule (11 sources) Anticholinergic Start: 2019 End: 2023 take 2 capsules by mouth every six hours as needed Dicyclomine 10 MG capsule Discontinued 20 mg PO EVERY 6 HOURS as needed for abdominal cramping 16 October 25, 2019 1:41pm November 30, 2023 3:28pm Start: 10-25-2019 take 20 mg by mouth every six hours Dicyclomine Active 20 MG PO EVERY 6 HOURS October 25, 2019 12:41pm docosahexaenoic acid/epa (FI SH OIL ORAL) (20 sources) End: 11-16-2024 docosahexaenoic acid/epa (FI SH OIL ORAL) Take by mouth. 11/16/2024 Discontinued docosahexaenoic acid/epa (FISH OIL ORAL) Take by mouth. Active docosahexaenoic acid/epa (FISH OIL ORAL) Take by mouth. 0 Active enteric contrast (will be provided with radiology test) (2 sources) Start: 07-29-2022 End: 07-30-2022 enteric contrast (will be provided with radiology test) For CT PELVIS W IVCON order Administer, As Directed One Time Only, via Oral, Rectal, both Oral and Rectal, Enteric Tube, Stoma or Indwelling Catheter, Enteric Contrast as designated per enteric contrast guidelines 1 Each 0 07/29/2022 07/30/2022 Start: 02-09-2022 End: 02-09-2022 take 1 dose by mouth once, then take 1 dose by mouth once enteric contrast (will be provided with radiology test) Take 1 Each by mouth one time only for [address] ABD/PEL WO Routine order Administer, As Directed One Time Only, via Oral, Rectal, both Oral and Rectal, Enteric Tube, Stoma or Indwelling Catheter, Enteric Contrast as designated per enteric contrast guidelines 1 Each 0 02/09/2022 02/09/2022 Active Comment on above: Take 1 Each by mouth one time only for [address] ABD/PEL WO Routine order Administer, As Directed One Time Only, via Oral, Rectal, both Oral and Rectal, Enteric Tube, Stoma or Indwelling Catheter, Enteric Contrast as designated per enteric contrast guidelines For CT PELVIS W IVCO N order Administer, As Directed One Time Only, via Oral, Rectal, both Oral and Rectal, Enteric Tube, Stoma or Indwelling Catheter, Enteric Contrast as designated per enteric contrast guidelines esomeprazole 20 mg delayed release oral capsule (8 sources) Proton Pump Inhibitor Start: End: take 1 capsule by mouth twice daily Esomeprazole Magnesium (Nexium) 20 mg capsule,delayed release(DR/EC) Discontinued 20 mg PO TWICE A DAY March 02, 2019 12:00am March 07, 2019 11:16am fluticasone propionate 0.05 mg/actuat metered dose nasal spray (20 sources) Corticosteroid Start: End: take 2 spray(s) by mouth once daily fluticasone (FLONASE) 50 mcg/actuation nasal spray Use 2 Sprays in each nostril once daily. Rinse mouth after use. 1 Each 1 09/06/2023 06/12/2024 Discontinued Comment on above: Use 2 Sprays in each nostril once daily. Rinse mouth after use. gemfibrozil 600 mg oral tablet (8 sources) Peroxisome Proliferator Receptor alpha Agonist Start: End: take 1 tablet by mouth twice daily Gemfibrozil 600 mg tablet Discontinued 600 mg PO TWICE A DAY 60 March 02, 2019 12:00am July 31, 2019 2:01pm glipiZIDE er 5 mg 24 hr extended release oral tablet (10 sources) Sulfonylurea Start: 025 End: take 1 tablet by mouth once daily glipiZIDE (GLUCOTROL XL) 5 mg 24 hr tablet Indications: Type 2 diabetes mellitus without complication, without long-term current use of insulin (HCC) Take 1 tablet by mouth once daily. 30 tablet 11 11/24/2024 03/12/2025 Discontinued (Discontinued by Patient) hydroCHLOROthiazide 25 mg / spironolactone 25 mg oral tablet (5 sources) Thiazide Diuretic, Aldosterone Antagonist Start: End: take 1 tablet by mouth once daily Spironolacton-Hydr ochlorothiaz 25-25 mg tablet Discontinued 1 {tbl} PO DAILY February 15, 2024 12:00am September 28, 2024 3:25pm Blood pressure, diuretic hydrOXYzine pamoate 25 mg oral capsule (1 source) Antihistamine Start: hydrOXYzine pamoate (VISTARIL) 25 mg capsule Indications: Grief reaction Take 1-2 capsules three times a day as needed for anxiety 90 capsule 1 09/03/2023 Active Comment on above: Take 1-2 capsules th ree times a day as needed for anxiety 24 hr isosorbide mononitrate 30 mg extended release oral tablet (10 sources) Nitrate Vasodilator Start: End: take 1 tablet by mouth once daily isosorbide mononitrate ER (IMDUR) 30 mg 24 hr tablet Take 1 tablet by mouth once daily. 30 tablet 02/26/2022 03/05/2022 Discontinued Start: 10-28-2018 End: 11-22-2018 take 1 tablet by mouth once daily, then take 1 tablet by mouth every twenty-four hours Isosorbide Mononitrate 30 mg tablet extended release 24 hr Discontinued 30 mg PO DAILY 30 October 28, 2018 1:00am November 22, 2018 2:05pm Patient notified office he was nop longer taking the medication due to side effects he was having. Comment on above: Take 1 tablet by breonna th once daily. iv contrast (will be provided with radiology test) (5 sources) Start: 08-05-2022 iv contrast (will be provided with radiology test) MRI Prostate Inject, intravenously, once for 1 dose. No IV access, insert saline lock prior to the beginning of sedation, infusion, injection of imaging exam. Discontinue saline lock post exam. If Pt. has a central line or IVAD, may access for administration according to line specific nursing protocol. Once exam is complete flush line and de-access according to line specific nursing protocol in the MR contrast administration guidelines link. 1 Each 0 08/05/2022 Active Start: 07-29-2022 End: 07-30-2022 iv contrast (will be provide d with radiology test) CT PELVIS W -Inject, intravenously, once for 1 dose.No IV access, insert saline lock prior to the beginning of sedation, infusion, injection of imaging exam. Discontinue saline lock post exam. If Pt. has a central line or IVAD, may access for administration according to line specific nursing protocol. Once exam is complete flush line and de-access according to line specific nursing protocol in the CT contrast administration guidelines link. 1 Each 0 07/29/2022 07/30/2022 Comment on above: MRI Prostate Inject, intravenously, once for 1 dose. No IV access, insert saline lock prior to the beginning of sedation, infusion, injection of imaging exam. Discontinue saline lock post exam. If Pt. has a central line or IVAD, may access for administration according to line specific nursing protocol. Once exam is complete flush line and de-access according to line specific nursing protocol in the MR contrast administration guidelines link. CT PELVIS W -Inject, intravenously, once for 1 dose.No IV access, insert saline lock prior to the beginning of sedation, infusion, injection of imaging exam. Discontinue saline lock post exam. If Pt. has a central line or IVAD, may access for administration according to line specific nursing protocol. Once exam is complete flush line and de-access according to line specific nursing protocol in the CT contrast administration guidelines link. 1.5 ml leuprolide acetate 30 mg/ml prefilled syringe (1 source) Gonadotropin Releasing Hormone Receptor Agonist Start: 07-29-20 End: 07-30-20 leuprolide acetate (6 month) 45 mg IM syringe kit (LUPRON) lidocaine 0.04 mg/mg medicated patch (7 sources) Antiarrhythmic, Amide Local Anesthetic Start: 10-24-19 End: 11-23-19 lidocaine (SALONPAS) 4 % patch Apply 1 Patch as directed once daily. Please cut patch in half lengthwise and apply to either side of sternal incision. Leave on for 12 hours then remove for 12 hours. 0 10/24/2022 11/16/2022 Discontinued Comment on above: Apply 1 Patch as dir ected once daily. Please cut patch in half lengthwise and apply to either side of sternal incision. Leave on for 12 hours then remove for 12 hours. LORazepam 0.5 mg oral tablet (11 sources) Benzodiazepine Start: 01-10-20 End: 02-09-20 take 1 tablet by mouth once daily at bedtime LORazepam (ATIVAN) 0.5 mg Indications: Grief reaction Take 1 tablet by mouth daily at bedtime for 30 days. 30 tablet 01/10/2024 02/09/2024 Start: 11-30-2023 End: 09-28-2024 take 2 tablets by mouth twice daily as needed Lorazepam 0.5 mg tablet Discontinued mg PO TWICE A DAY as needed November 30, 2023 1:00am September 28, 2024 3:25pm Start: 09-24-2023 End: 10-24-2023 take 1 tablet by mouth twice daily as needed for anxiety LORazepam (ATIVAN) 0.5 mg Indications: Grief reaction Take 1 tablet by mouth two times a day as needed (anxiety) for up to 30 days. 60 tablet 0 09/24/2023 10/24/2023 Active Comment on above: Take 1 tablet by breonna th two times a day as needed (anxiety) for up to 30 days. Take 1 tablet by breonna th daily at bedtime for 30 days. magnesium oxide 400 mg oral tablet (4 sources) Start: 10-24-19 End: 11-23-19 take 1 tablet by mouth once daily magnesium oxide (MAG-OX) 400 mg (241.3 mg magnesium) tablet Take 1 tablet by mouth once daily. 0 10/24/2022 11/03/2022 Discontinued (Course of therapy completed) Comment on above: Take 1 tablet by breonna th once daily. melatonin 3 mg oral tablet (4 sources) Start: 10-23-19 End: 11-03-19 take 1 tablet by mouth every twenty-four hours as needed melatonin 3 mg tablet Take 1 tablet by mouth at bedtime as needed (insomnia). 30 tablet 0 10/23/2022 11/03/2022 Discontinued (Course of therapy completed) Comment on above: Take 1 tablet by breonna th at bedtime as needed (insomnia). metroNIDAZOLE 500 mg oral tablet (8 sources) Nitroimidazole Antimicrobial Start: 10-25-19 End: 02-15-20 24 take 1 tablet by mouth twice daily Metronidazole 500 MG tablet Discontinued 500 mg PO TWICE A DAY 14 0 October 25, 2019 1:00am February 15, 2024 2:50pm multivit-min/folic/vi t K/lycop (MEN'S MULTIVITAMIN ORAL) (20 sources) End: 11-16-19 25 multivit-min/folic/v it K/lycop (MEN'S MULTIVITAMIN ORAL) Take by mouth. 11/16/2024 Discontinued multivit-min/fol ic/vit K/lycop (MEN'S MULTIVITAMIN ORAL) Take by mouth. Active multivit-min/fol ic/vit K/lycop (MEN'S MULTIVITAMIN ORAL) Take by mouth. 0 Active mupirocin 0.02 mg/mg topical ointment (4 sources) RNA Synthetase Inhibitor Antibacterial Start: 10-03-2022 End: 10-08-2022 apply 22 g nasal route twice daily mupirocin (BACTROBAN) 2 % ointment Apply a small amount in each nostril using a cotton swab twice a day for five days prior to surgery 22 g 0 10/03/2022 10/08/2022 Start: 08-19-2022 End: 08-24-2022 mupirocin (BACTROBAN) 2 % oi ntment Apply 1 application to affected area twice daily for 5 days. 22 g 0 08/19/2022 08/24/2022 Comment on above: Apply a small amount in each nostril using a cotton swab twice a day for five days prior to surgery Apply 1 application to affected area twice daily for 5 days. 1 ml omalizumab 150 mg/ml prefilled syringe (9 sources) Anti-IgE Start: 10-07-2023 End: 05-01-2025 Omalizumab (Xolair) 150 mg/mL syringe Discontinued 300 mg SC every 4 weeks 2 October 07, 2023 1:00am May 01, 2025 3:55pm Start: 07-31-2019 End: 09-08-2019 omalizumab 75 mg subcutaneou s solution Discontinued MG SC July 31, 2019 12:00am September 08, 2019 2:58pm Start: 07-31-2019 End: 09-08-2019 omalizumab 75 mg subcutaneou s solution Discontinued MG SC July 30, 2019 11:00pm September 08, 2019 1:58pm Omalizumab 75 mg recon soln (5 sources) Start: 07-31-2019 End: 09-08-2019 Omalizumab 75 mg recon soln Discontinued mg SC 0 July 31, 2019 12:00am September 08, 2019 2:58pm Start: 07-31-2019 End: 09-08-2019 Omalizumab 75 mg recon soln Discontinued mg SC July 31, 2019 12:00am September 08, 2019 2:58pm polyethylene glycol 3350 [id number] mg / potassium chloride 2970 mg / sodium bicarbonate 6740 mg / sodium chloride 5860 mg / sodium sulfate 49394 mg powder for oral solution (1 source) Osmotic Laxative Start: 06-26-2024 End: 06-26-2024 peg 3350-Electrolytes (GOLYTELY) 236-22.74-6.74 -5.86 gram suspension Indications: History of colonic polyps , Screening for colon cancer Take 4,000 mL by mouth one time only for 1 dose. Refer to printed prep instructions from your provider. 4000 mL 06/26/2024 06/26/2024 predniSONE 10 mg oral tablet (20 sources) Start: 02-27-2025 End: 05-01-2025 Prednisone 10 mg tablet Discontinued 10 mg PO daily 30 0 February 27, 2025 12:00am May 01, 2025 3:28pm Severe persistent asthma Severe persistent asthma, uncomplicated take 4 tabs for three days, then 3 tabs for three days, then 2 tabs for three days, then 1 tab for 3 days Start: 05-19-2024 End: 05-28-2024 predniSONE (DELTASONE) 10 mg tablet Indications: Wheezing Take 4 tabs daily for 3 days, then 2 tabs daily for 3 days, then 1 tab daily for 3 days with food. 21 tablet 05/19/2024 05/28/2024 Start: 01-10-2024 End: 01-19-2024 predniSONE (DELTASONE) 10 mg tablet Indications: Bilateral hip pain Take 4 tabs daily for 3 days, then 2 tabs daily for 3 days, then 1 tab daily for 3 days with food. 21 tablet 01/10/2024 01/19/2024 Start: 07-31-2019 End: 08-11-2019 take 1 tablet by mouth once daily Prednisone 50 mg tablet Discontinued 50 mg PO DAILY 5 0 July 31, 2019 12:00am August 11, 2019 11:28am Start: 10-21-2018 End: 11-09-2018 Prednisone 10 mg tablet Discontinued 10 mg PO daily 30 0 October 21, 2018 1:00am November 09, 2018 4:30pm take 4 tabs for three days, then 3 tabs for three days, then 2 tabs for three days, then 1 tab for 3 days Start: 06-29-2018 End: 10-03-2018 take 3 tablets by mouth once daily at mealtime Prednisone 20 mg tablet Discontinued 60 mg PO daily 15 0 June 29, 2018 12:00am October 03, 2018 8:20am administer with food or milk Start: 06-29-2018 End: 10-03-2018 take 60 mg by mouth once daily at mealtime Prednisone Discontinued 60 MG PO daily 15 June 28, 2018 11:00pm October 03, 2018 7:20am administer with food or milk Start: 05-09-2018 End: 05-25-2018 take 3 tablets by mouth once daily at mealtime Prednisone 20 mg tablet Discontinued 60 mg PO daily 15 0 May 09, 2018 12:00am May 25, 2018 10:01am administer with food or milk Start: 05-09-2018 End: 05-25-2018 take 60 mg by mouth once daily at mealtime Prednisone Discontinued 60 MG PO daily 15 May 08, 2018 11:00pm May 25, 2018 9:01am administer with food or milk Start: 03-30-2018 End: 04-04-2018 take 2 tablets by mouth once daily Prednisone 20 mg tablet Discontinued 40 mg PO daily 10 5 March 30, 2018 12:00am April 03, 2018 12:00am April 04, 2018 12:06am Start: 03-30-2018 End: 04-04-2018 take 40 mg by mouth once daily Prednisone Discontinued 40 MG PO daily 10 5 March 29, 2018 11:00pm April 03, 2018 11:06pm Start: 01-19-2018 End: 02-03-2018 take 2 tablets by mouth once daily at mealtime Prednisone 20 mg tablet Discontinued 40 mg PO daily 7 January 19, 2018 12:00am February 03, 2018 1:42pm administer with food or milk Start: 01-19-2018 End: 02-03-2018 take 40 mg by mouth once daily at mealtime Prednisone Discontinued 40 MG PO daily 7 January 18, 2018 11:00pm February 03, 2018 12:42pm administer with food or milk Start: 09-13-2017 End: 10-19-2017 Prednisone 10 mg tablet Discontinued 10 mg PO daily 30 0 September 13, 2017 1:00am October 19, 2017 11:57am take 4 tabs for three days, then 3 tabs for three days, then 2 tabs for three days, then 1 tab for 3 days Comment on above: Take 4 tabs daily fo r 3 days, then 2 tabs daily for 3 days, then 1 tab daily for 3 days with food. raNITIdine 150 mg oral tablet (8 sources) Histamine-2 Receptor Antagonist Start: 03-02-20 End: 03-07-20 19 take 1 tablet by mouth once daily Ranitidine Hcl (Acid Control (Ranitidine)) 150 mg tablet Discontinued 150 mg PO DAILY March 02, 2019 12:00am March 07, 2019 11:16am spironolactone 25 mg oral tablet (20 sources) Aldosterone Antagonist Start: 02-02-20 End: 02-02-20 take 1 tablet by mouth once daily spironolactone (ALDACTONE) 25 mg tablet Indications: Essential hypertension Take 1 tablet by mouth once daily. 30 tablet 11 02/02/2024 09/04/2024 Discontinued (Discontinued by Patient) tamsulosin hydrochloride 0.4 mg oral capsule (20 sources) alpha-Adrenergic Ari Start: 11-30-19 End: 02-15-20 take 1 mg by mouth twice daily Tamsulosin 0.4 mg capsule Discontinued mg PO TWICE A DAY November 30, 2023 1:00am February 15, 2024 2:50pm Start: 07-14-2022 End: 07-21-2024 take 1 capsule by mouth once daily at bedtime tamsulosin (FLOMAX) 0.4 mg Take 1 capsule by mouth daily at bedtime. 90 capsule 10/24/2023 06/12/2024 Discontinued Comment on above: Take 1 capsule by mo [facility] daily at bedtime. 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 2 mL 1 03/12/2025 Active triamcinolone acetonide 0.001 mg/mg topical ointment (3 sources) Corticosteroid Start: 08-18-2022 End: 08-28-2022 triamcinolone acetonide (KENALOG) 0.1 % ointment Indications: Idiopathic dermatitis Apply to affected area twice daily for 10 days. Left side of abdomen 30 g 0 08/18/2022 08/28/2022 Comment on above: Apply to affected ar ea twice daily for 10 days. Left side of abdomen Problems Active Problems Problem Classification Problem Date Documented Da te Episodic/Chronic Abdominal pain (20 sources) Right lower quadrant pain; Translations: [Right lower quadrant pain] Onset: 09-18-2024 Episodic Adjustment disorders (2 sources) Grief finding; Translations: [Adjustment disorder with depressed mood] 09-03-2023 Chronic Aortic; peripheral; and visceral artery aneurysms (3 sources) Abdominal aortic aneurysm without rupture; Translations: [Abdominal aortic aneurysm (AAA) without rupture, unspecified part (HCC)] 07-12-2024 Chronic Asthma (20 sources) Exacerbation of asthma; Translations: [Unspecified asthma with (acute) exacerbation] Onset: 02-20-2025 12-17-2017 Chronic Comment on above: On Xolair Cancer of prostate (20 sources) Malignant tumor of prostate; Translations: [Malignant neoplasm of prostate] Onset: 07-30-2023 Chronic Cardiac dysrhythmias (8 sources) Paroxysmal atrial fibrillation; Translations: [Paroxysmal atrial fibrillation] Onset: 11-16-2022 Chronic Cardiac dysrhythmias (5 sources) Bradycardia; Translations: [Bradycardia, unspecified] Onset: 11-25-2023 Episodic Chronic obstructive pulmonary disease and bronchiectasis (10 sources) Chronic obstructive lung disease; Translations: [Chronic obstructive pulmonary disease, unspecified] Onset: 06-01-2025 03-07-2019 Chronic Comment on above: Eosinophilia, total eosinophil count 417 Conditions associated with dizziness or vertigo (2 sources) Dizziness and giddiness; Translations: [Dizziness and giddiness] Onset: 05-31-2025 05-31-2025 Episodic Coronary atherosclerosis and other heart disease (20 sources) Coronary arteriosclerosis; Translations: [Atherosclerotic heart disease of [place] coronary artery without angina pectoris] Onset: 01-29-2020 Chronic Comment on above: PCI-IRENE mid LAD 2.5 X 24 Promus Synergy; PCI-IRENE mid PDA 2.25 X 16 Promus Synergy 11/09/1830QFH-WCN-[id number] 2.25 x 32 Promus Synergy 11/04/[id number]-GYR 2.25 x 20 mm Synergy Monorail and POBA PDA 03/19/2016Successful PTCA/IRENE mid LAD with a 2.5 x 24 Promus Synergy stent, post dilated with a 3.0 x 8 and a 3.5 x 8 NC balloon; 85%-->0%, no dissection on 11/09/2018Successful PTCA/IRENE mid PDA with a 2.25 x 16 Promus Synergy stent; 85%-->0%, no dissection on 11/09/2018 Diabetes mellitus with complications (18 sources) Mixed hyperlipidemia due to type 2 diabetes mellitus; Translations: [Type 2 diabetes mellitus with other specified complication] Onset: 03-12-2025 03-12-2025 Chronic Diabetes mellitus without complication (20 sources) Type 2 diabetes mellitus without complication; Translations: [Type 2 diabetes mellitus without complications] Onset: 10-02-2022 Chronic Diseases of white blood cells (2 sources) Eosinophil count raised; Translations: [Eosinophilia] 05-01-2025 Chronic Disorders of lipid metabolism (20 sources) Pure hypercholesterolemia; Translations: [Pure hypercholesterolemia, unspecified] Onset: 01-29-2020 08-13-2021 Chronic Diverticulosis and diverticulitis (1 source) Diverticulitis; Translations: [Diverticulitis of intestine, part unspecified, without perforation or abscess without bleeding] 07-11-2024 Chronic Esophageal disorders (1 source) Gastro-esophageal reflux disease with esophagitis; Translations: [Gastroesophageal reflux disease with esophagitis without hemorrhage] 09-06-2024 Chronic Esophageal disorders (1 source) Esophageal disorders; Translations: [Gastroesophageal reflux disease with esophagitis without hemorrhage] Onset: 09-06-2024 Essential hypertension (20 sources) Essential hypertension; Translations: [Essential (primary) hypertension] Onset: 01-29-2020 01-29-2020 Chronic Gastrointestinal hemorrhage (1 source) Hematochezia; Translations: [Melena] 01-24-2024 Episodic Genitourinary symptoms and ill-defined conditions (1 source) Post-micturition incontinence ; Translations: [Post-void dribbling] Chronic Headache; including migraine (1 source) Headache; including migraine; Translations: [Headache, unspecified headache type] Onset: 06-20-2025 Hemorrhoids (8 sources) Bleeding external hemorrhoids; Translations: [Residual hemorrhoidal skin tags] 10-26-2019 Episodic Hepatitis (8 sources) Viral hepatitis C; Translations: [Unspecified viral hepatitis C without hepatic coma] 12-17-2017 Episodic Hyperplasia of prostate (1 source) Large prostate ; Translations: [Benign prostatic hyperplasia without lower urinary tract symptoms] Chronic Lymphadenitis (1 source) Localized enlarged lymph nodes; Translations: [Localized enlarged lymph nodes] 07-29-2022 Episodic Malaise and fatigue (1 source) Fatigue; Translations: [Other fatigue] 01-24-2024 Episodic Nausea and vomiting (11 sources) Nausea; Translations: [Nausea] Onset: 06-20-2025 Episodic Noninfectious gastroenteritis (8 sources) Colitis; Translations: [Noninfective gastroenteritis and colitis, unspecified] 10-26-2019 Episodic Nonspecific chest pain (9 sources) Chest pain on exertion; Translations: [Chest pain, unspecified] Episodic Nutritional deficiencies (2 sources) Vitamin D deficiency; Translations: [Vitamin D deficiency, unspecified] Onset: 05-31-2025 05-31-2025 Chronic Osteoarthritis (8 sources) Osteoarthritis; Translations: [Unspecified osteoarthritis, unspecified site] 12-17-2017 Chronic Other aftercare (1 source) Radiotherapy follow-up; Translations: [Encounter for follow-up examination after completed treatment for conditions other than malignant neoplasm] 12-24-2023 Episodic Other aftercare (3 sources) Long-term current use of anticoagulant; Translations: [emt b (current) use of anticoagulants] 01-24-2024 Episodic Other aftercare (1 source) Post-discharge follow-up; Translations: [Encounter for follow-up examination after completed treatment for conditions other than malignant neoplasm] 07-11-2024 Episodic Other aftercare (1 source) [facility] (current) use of anticoagulants; Translations: [[facility] current use of anticoagulant therapy] Onset: 06-20-2025 Episodic Other circulatory disease (1 source) Pulmonary congestion ; Translations: [Other specified symptoms and signs involving the circulatory and respiratory systems] 03-06-2025 Episodic Other connective tissue disease (1 source) Repeated falls; Translations: [Falling episodes] Onset: 06-20-2025 Episodic Other ear and sense organ disorders (1 source) Impacted cerumen, bilateral; Translations: [Bilateral impacted cerumen] Onset: 07-04-2025 Episodic Other gastrointestinal disorders (8 sources) Hemorrhagic diarrhea ; Translations: [Diarrhea, unspecified] 10-26-2019 Episodic Other gastrointestinal disorders (1 source) Swollen abdomen; Translations: [Abdominal distension (gaseous)] 05-14-2025 Episodic Other injuries and conditions due to external causes (8 sources) Aspiration into respiratory tract; Translations: [Gastric contents in respiratory tract, part unspecified causing asphyxiation, initial encounter] 03-07-2019 Episodic Other injuries and conditions due to external causes (1 source) Hematoma; Translations: [Other injury of unspecified body region, initial encounter] 06-12-2024 Episodic Other injuries and conditions due to external causes (1 source) Other injury of unspecified body region, initial encounter; Translations: [Bruising] Onset: 06-20-2025 Episodic Other lower respiratory disease (9 sources) Dyspnea; Translations: [Shortness of breath] Episodic Other lower respiratory disease (3 sources) Multiple nodules of lung; Translations: [Other nonspecific abnormal finding of lung field] Episodic Other lower respiratory disease (10 sources) Wheezing; Translations: [Wheezing] 12-17-2017 Episodic Other lower respiratory disease (2 sources) Nodule of lung; Translations: [Solitary pulmonary nodule] Episodic Other lower respiratory disease (2 sources) Cough; Translations: [Acute cough] 04-26-2024 Episodic Other lower respiratory disease (1 source) Rib pain; Translations: [Pleurodynia] 01-06-2022 Episodic Other nervous system disorders (1 source) Unspecified abnormalities of gait and mobility; Translations: [Abnormality of gait] Onset: 06-20-2025 Episodic Other non-traumatic joint disorders (8 sources) Shoulder joint pain; Translations: [Pain in unspecified shoulder] 12-17-2017 Episodic Other non-traumatic joint disorders (2 sources) Pain of right wrist; Translations: [Pain in right wrist] 06-12-2024 Episodic Other nutritional; endocrine; and metabolic disorders (15 sources) Obesity; Translations: [Obesity, unspecified] 07-07-2022 Chronic Other nutritional; endocrine; and metabolic disorders (1 source) Obesity, unspecified; Translations: [Obesity, unspecified] 03-25-2023 Chronic Other nutritional; endocrine; and metabolic disorders (17 sources) Obese class I; Translations: [Obesity, Class I, BMI 30-34.9] Onset: 03-12-2025 03-12-2025 Chronic Other nutritional; endocrine; and metabolic disorders (1 source) Other obesity due to excess calories; Translations: [Other obesity due to excess calories] Onset: 09-01-2024 Chronic Other nutritional; endocrine; and metabolic disorders (1 source) Body mass index (BMI) 33.0-33.9, adult; Translations: [Body mass index [BMI] 33.0-33.9, adult] Onset: 09-01-2024 Chronic Other nutritional; endocrine; and metabolic disorders (1 source) Weight increased; Translations: [Abnormal weight gain] 09-06-2024 Episodic Other skin disorders (1 source) Nodule of skin of abdomen; Translations: [Localized swelling, mass and lump, trunk] 08-21-2022 Episodic Other upper respiratory disease (8 sources) Seasonal allergic rhinitis; Translations: [Other seasonal allergic rhinitis] 05-09-2018 Chronic Other upper respiratory disease (1 source) Allergic rhinitis; Translations: [Other allergic rhinitis] 02-21-2024 Chronic Other upper respiratory disease (2 sources) Other allergic rhinitis; Translations: [Other allergic rhinitis] Onset: 02-21-2024 Chronic Other upper respiratory disease (8 sources) Polypoid sinus degeneration; Translations: [Polypoid sinus degeneration] 10-25-2019 Episodic Other upper respiratory disease (10 sources) Polyp of nasal cavity and/or nasal sinus; Translations: [Nasal polyp, unspecified] 12-17-2017 Episodic Other upper respiratory disease (8 sources) Deviated nasal septum; Translations: [Deviated nasal septum] 10-25-2019 Episodic Other upper respiratory disease (1 source) Other specified disorders of nose and nasal sinuses; Translations: [Sinus pressure] Onset: 06-20-2025 Episodic Other upper respiratory disease (1 source) Nasal congestion; Translations: [Congestion of nasal sinus] Onset: 06-20-2025 Episodic Other upper respiratory infections (20 sources) Chronic maxillary sinusitis; Translations: [Chronic maxillary sinusitis] Onset: 08-03-2023 10-25-2019 Chronic Peripheral and visceral atherosclerosis (1 source) Peripheral vascular disease, unspecified; Translations: [Peripheral arterial disease] Onset: 08-07-2025 Chronic Pneumonia (except that caused by tuberculosis or sexually transmitted disease) (4 sources) Infective pneumonia; Translations: [Pneumonia, unspecified organism] 04-26-2024 Episodic Residual codes; unclassified (8 sources) Finding related to sleep; Translations: [Sleep apnea, unspecified] 12-17-2017 Chronic Residual codes; unclassified (2 sources) Tobacco use and exposure - finding; Translations: [Tobacco use] 09-04-2024 Episodic Residual codes; unclassified (1 source) Viral syndrome; Translations: [Other general symptoms and signs] 11-16-2024 Episodic Residual codes; unclassified (2 sources) Medication non-adherence due to intolerance; Translations: [Medication nonadherence due to intolerance] 05-16-2025 Episodic Spondylosis; intervertebral disc disorders; other back problems (2 sources) Neck pain; Translations: [Cervicalgia] Episodic Substance-related disorders (20 sources) Tobacco dependence in remission; Translations: [Nicotine dependence, unspecified, in remission] Onset: 09-01-2024 12-17-2017 Chronic Comment on above: 3/4 ppd repeat LDCT September 2025 1.5 ppd repeat LDCT September 2025 Unclassified (1 source) History of colonic polyps; Translations: [History of colonic polyps] Onset: 07-19-2024 Unclassified (1 source) Eosinophilia, unspecified; Translations: [Eosinophilia, unspecified] Onset: 05-01-2025 Unclassified (1 source) Abdominal aortic aneurysm (AAA) without rupture, unspecified part; Translations: [Abdominal aortic aneurysm (AAA) without rupture, unspecified part] Onset: 08-07-2025 Unclassified (1 source) Obesity, Class I, BMI 30-34.9; Translations: [Obesity, Class I, BMI 30-34.9] Onset: 03-12-2025 Unclassified (1 source) Acute cough; Translations: [Acute cough] Onset: 02-20-2025 Unclassified (1 source) Abdominal aortic aneurysm (AAA) without rupture, unspecified part (HCC); Translations: [Abdominal aortic aneurysm (AAA) without rupture, unspecified part (HCC)] Onset: 08-15-2024 Past or Other Problems Problem Classification Problem Date Documented Da te Episodic/Chronic Cancer of prostate (14 sources) History of malignant neoplasm of prostate; Translations: [Personal history of malignant neoplasm of prostate] Onset: 11-16-2022 Episodic Complications of surgical procedures or medical care (20 sources) Atrial fibrillation; Translations: [Other postprocedural complications and disorders of the circulatory system, not elsewhere classified] Onset: 11-25-2023 11-25-2023 Episodic Coronary atherosclerosis and other heart disease (3 sources) Presence of aortocoronary bypass graft; Translations: [Presence of coronary angioplasty implant and graft] Onset: 06-24-2021 Episodic Diabetes mellitus without complication (20 sources) Increased glucose level; Translations: [Other abnormal glucose] Onset: 01-29-2020 01-29-2020 Episodic Genitourinary symptoms and ill-defined conditions (20 sources) Urine looks dark; Translations: [Other abnormal findings in urine] Onset: 10-05-2013 10-05-2013 Episodic Other and unspecified benign neoplasm (20 sources) History of polyp of colon; Translations: [Personal history of colonic polyps] Onset: 07-19-2024 06-23-2024 Episodic Other circulatory disease (1 source) Other specified symptoms and signs involving the circulatory and respiratory systems; Translations: [Chest congestion] Onset: 03-06-2025 Episodic Other gastrointestinal disorders (1 source) Abdominal distension (gaseous); Translations: [Abdominal distension] Onset: 05-14-2025 Episodic Other lower respiratory disease (20 sources) Dyspnea on exertion; Translations: [Dyspnea, unspecified] Onset: 06-10-2022 Episodic Other lower respiratory disease (1 source) Shortness of breath; Translations: [Shortness of breath] Onset: 04-09-2025 Episodic Other lower respiratory disease (1 source) Wheezing; Translations: [Wheezing] Onset: 05-14-2025 Episodic Other non-traumatic joint disorders (20 sources) Hip pain; Translations: [Pain in right hip] Onset: 02-08-2024 01-10-2024 Episodic Other nutritional; endocrine; and metabolic disorders (1 source) Abnormal weight gain; Translations: [Weight gain] Onset: 09-06-2024 Episodic Other screening for suspected conditions (not mental disorders or infectious disease) (20 sources) Patient encounter status; Translations: [Encounter for screening for malignant neoplasm of colon] Onset: 03-11-2022 Episodic Other skin disorders (20 sources) Mass of skin; Translations: [Localized swelling, mass and lump, unspecified] Onset: 02-21-2007 02-21-2007 Episodic Other upper respiratory disease (2 sources) Nasal polyp, unspecified; Translations: [Nasal polyp, unspecified] Onset: 08-03-2023 Episodic Other upper respiratory infections (10 sources) Upper respiratory infection; Translations: [Acute upper respiratory infection, unspecified] Onset: 03-06-2025 11-10-2018 Episodic Comment on above: He does appear to be in exacerbation of his asthma, likely secondary to upper respiratory infection. He has responded well to Levaquin and a prednisone taper in the past. We will treat him with 7 days of Levaquin and a prednisone taper over 12 days. He has been advised that his symptoms will likely take 2 days on the medication before he notices improvement. He has been advised to contact the office if he does not seem some type of improvement after 48 hours. Keep previously scheduled routine follow-up, he believes it is in December. He has also been encouraged to contact the office if symptoms worsen or new symptoms present. Screening and history of mental health and substance abuse codes (2 sources) Encounter for screening for depression; Translations: [Encounter for screening examination for other mental health and behavioral disorders] Onset: 05-14-2025 Episodic Results Test Name Value Interpretation Reference Range Facility [facility] 08-07-2025 CNOV Office Visit (VASSWS ) -- DENTON WESLEY ([id number]) 1950 M Date Time Provider Department 08/07/25 10:00 AM MORIAH ARREAGA VASSWS During your visit today, we recorded the following information about you: Pulse Blood pressure 63/minute 173/80 Moriah Arreaga DO 08/07/2025 10:47 AM [facility] [place] DEPARTMENT OF VASCULAR SURGERY OUTPATIENT VISIT DATE August 07, 2025 OUTPATIENT VISIT TYPE ESTABLISHED SERVICE DATE: 08/07/2025 SERVICE TIME: 10:09 AM PRIMARY CARE PHYSICIAN: Cali Cordero MD HISTORY OF PRESENT ILLNESS: Mr. Wesley is a 75 year old male who presents today for a vascular surgery follow-up visit for aortic duplex. He denies new complaints. He does report bilateral lower extremity hip fatigue with ambulation. PAST MEDICAL HISTORY Diagnosis Date Abdominal aortic aneurysm (AAA) Abdominal pain, other specified site Asthma (HCC) Awareness under anesthesia CAD (coronary artery disease) Cholelithiasis 09/25/2013 Colitis Diabetes mellitus (HCC) type 2 diet controlled Elevated prostate specific antigen (PSA) Esophageal reflux Gastroesophageal reflux Hypertension Impotence of organic origin Impotence Nocturia SUJEY (obstructive sleep apnea) Post-void dribbling Prostate cancer (HCC) RUQ abdominal pain 09/25/2013 PAST SURGICAL HISTORY Procedure Laterality Date CABG (2) VEIN GRAFTS AND ARTERIAL GRAFT(S 10/16/2022 COLONOSCOPY FLX DX W/COLLJ SPEC WHEN PFRMD Colonoscopy Dr. Ferreira ESOPHAGOGASTRODUODENOSCOPY TRANSORAL DIAGNOSTIC EGD Dr. Ferreira LAPAROSCOPY SURG CHOLECYSTECTOMY 09/25/2013 PAST SURGICAL HISTORY OF IANDD left hand PAST SURGICAL HISTORY OF Removal cyst on back PROSTATE BIOPSY GUKI 07/14/2022 STENT PLACEMENT 4 Stents SOCIAL HISTORY SOCIAL HISTORY[1] MEDICATIONS: nitroglycerin sublingual (NITROQUICK) 0.4 mg SL tablet Dissolve 1 tablet under the tongue every 5 minutes as needed. lansoprazole (PREVACID) 30 mg capsule Take 1 capsule by mouth daily before breakfast. 1/2 hr before meal. albuterol HFA (PROVENTIL HFA, VENTOLIN HFA) 90 mcg/actuation inhaler Inhale 2 puffs as instructed every 4 hours as needed for wheezing/shortness of breath. apixaban (ELIQUIS) 5 mg tab(s) Take 1 tablet by mouth two times a day. evolocumab (REPATHA SURECLICK) 140 mg/mL pen injector Inject 140 mg subcutaneously every 2 weeks. losartan (COZAAR) 100 mg tablet Take 1 tablet by mouth once daily. aspirin, enteric coated (ECOTRIN LOW STRENGTH) 81 mg EC tablet Take 1 tablet by mouth once daily. guaiFENesin (MUCINEX) 600 mg 12 hr tablet Take 1 tablet by mouth twice daily as needed for cold/allergy symptoms. loratadine (CLARITIN) 10 mg tablet Take 1 tablet by mouth once daily. ADVAIR DISKUS 500-50 mcg/dose dsdv INHALE 1 (ONE) puff EVERY 12 HOURS ALLERGIES: ALLERGIES Allergen Reactions Gemfibrozil Intolerance Rosuvastatin Intolerance Simvastatin Intolerance Imdur [Isosorbide] Intolerance Headaches, upset stomach, fatigue Mounjaro [Tirzepati* GI Upset intolerabe GI upset and worsened nocturnal emesis (at starting dose of 2.5 mg/week) Ozempic [Semaglutid* GI Upset Penicillins Intolerance passed out and felt like I had the flu Pt states he's no longer allergic to this, he's taken tests w/out issues. Pravastatin Myalgia PHYSICAL EXAM: BP 173/80 (BP Site: Right Arm, BP Position: Sitting, BP Cuff Size: Large Adult) Pulse 63 SpO2 99% Gen- no distress Abd- non-distended, non-tender Ext- trace edema, non-palpable pt, warm, well perfused Diagnostic tests reviewed for today's visit: Most recent labs Most recent imaging Aortic Duplex AORTA Abdominal aortic aneurysm measuring 3.2 x 3.0 cm at level of the renals. Abdominal aortic aneurysm measuring 3.2 x 2.9 cm at mid. Aorta plaque noted without evidence of hemodynamically significant stenosis mid to distal. RIGHT VESSELS Common iliac artery plaque noted without evidence of hemodynamically significant stenosis origin to proximal. Common iliac artery not visualized mid to distal. External iliac artery is patent at mid. Internal iliac artery not visualized . LEFT VESSELS Common iliac artery plaque noted without evidence of hemodynamically significant stenosis throughout. External iliac artery is patent . Internal iliac artery not visualized . IMPRESSION: Mr. Wesley is a 75 year old male with small AAA, claudication . PLAN and RECOMMENDATIONS: Reviewed findings with patient Continue blood pressure control, continue current medications He has intolerance to statins Recommend follow up in one year with repeat duplex and PVRs SIGNATURE: Moriah Arreaga DO PATIENT NAME: Denton Wesley DATE: August 07, 2025 TIME: 10:09 AM [1] Social History Tobacco Use Smoking status: Every Day Current packs/day: 0.25 A (more content not included)... Normal [facility] US ABD AORTA COMPLETE VAS LA Bon 08-07-2025 ABD AORTA COMPLETE VAS LAB Non-Invasive Vascular Laboratory [facility] Abdominal Aorta Bilateral/Complete Date of service/time: 08/07/2025 9:04:08 AM Name: MR. DENTON WSELEY Date of : 1950 Age: 75 years Gender: M Clinical Indication Abdominal aortic aneurysm. TECHNIQUE -------- An aortic duplex ultrasound examination was performed, including grayscale imaging and color Doppler and spectral Doppler examination of abdominal aorta as well as the below mentioned arteries. FINDINGS -------- AORTA Proximal: PSV: 105 cm/s. EDV: 14 cm/s. 2.63 cm x 2.55 cm At renal: PSV: 101 cm/s. EDV: 0 cm/s. 3.15 cm x 3.00 cm Mid: PSV: 118 cm/s. EDV: 0 cm/s. 3.20 cm x 2.88 cm Distal: PSV: 134 cm/s. EDV: 0 cm/s. 2.78 cm x 2.51 cm Heterogeneous, calcified and shadowing plaque in the abdominal aorta mid to distal. RIGHT VESSELS Common iliac origin: PSV: 114 cm/s. EDV: 0 cm/s. 1.38 cm x 1.40 cm Common iliac proximal: PSV: 143 cm/s. EDV: 0 cm/s. 1.27 cm x 1.26 cm External iliac mid: PSV: 124 cm/s. EDV: 0 cm/s. 1.17 cm x 1.10 cm LEFT VESSELS Common iliac origin: PSV: 152 cm/s. EDV: 0 cm/s. 1.44 cm x 1.41 cm Common iliac proximal: PSV: 147 cm/s. EDV: 0 cm/s. 1.30 cm x 1.16 cm Common iliac mid: PSV: 130 cm/s. EDV: 0 cm/s. 1.16 cm x 1.14 cm Common iliac distal: PSV: 119 cm/s. EDV: 0 cm/s. 1.12 cm x 1.10 cm External iliac mid: PSV: 110 cm/s. EDV: 0 cm/s. 1.09 cm x 1.06 cm IMPRESSION AORTA Abdominal aortic aneurysm measuring 3.2 x 3.0 cm at level of the renals. Abdominal aortic aneurysm measuring 3.2 x 2.9 cm at mid. Aorta plaque noted without evidence of hemodynamically significant stenosis mid to distal. RIGHT VESSELS Common iliac artery plaque noted without evidence of hemodynamically significant stenosis origin to proximal. Common iliac artery not visualized mid to distal. External iliac artery is patent at mid. Internal iliac artery not visualized . LEFT VESSELS Common iliac artery plaque noted without evidence of hemodynamically significant stenosis throughout. External iliac artery is patent . Internal iliac artery not visualized . Technologist: Lara Jones RVT Ordering physician: MORIAH ARREAGA Interpreting physician: Anival Penn MD, GALINDO Final CC [employer] Medical Image : [id number] See Link below for Image Normal [facility] CNOVon 07-04-2025 [facility] DENTON WESLEY Natalia ([id number]) 1950 M Date Time Provider Department 07/04/25 2:20 PM MELVA LOZADAWS During your visit today, we recorded the following information about you: Pulse Respiration Blood pressure Weight 76/minute 14/minute 130/66 99.6 kg Melva Lozada, KATT.TECHNICAL SUPPORT CONSULTANT 07/04/2025 7:42 PM Signed Patricia is a 75 year old male who presents today with: 1 week follow up Last OV 06/20/25: ASSESSMENT/PLAN: 1. Sinus pressure - ICD9: 478.19, ICD10: J34.89 (primary diagnosis) 2. Congestion of nasal sinus - ICD9: 478.19, ICD10: R09.81 3. Acute cough - ICD9: 786.2, ICD10: R05.1 4. Headache, unspecified headache type - ICD9: 784.0, ICD10: R51.9 - Will begin treatment with Doxycycline - DOXYCYCLINE MONOHYDRATE 100 MG CAPSULE bid x 7 days, take full regimen and take with food - history of chronic sinusitis/recurrent 5. Generalized abdominal tenderness without rebound tenderness - ICD9: 789.67, ICD10: R10.817 6. Nausea - ICD9: 787.02, ICD10: R11.0 7. Bruising - ICD9: 924.9, ICD10: T14.8XXA - XR RIBS BILATERAL/CHEST 4V - US ABD RIGHT UPPER QUADRANT - PROTHROMBIN TIME - COMPLETE BLOOD COUNT AND DIFFERENTIAL - COMPREHENSIVE METABOLIC PANEL 8. Abnormality of gait - ICD9: 781.2, ICD10: R26.9 - FALLS RISK EDUCATION - XR RIBS BILATERAL/CHEST 4V - COMPLETE BLOOD COUNT AND DIFFERENTIAL - COMPREHENSIVE METABOLIC PANEL 9. Falling episodes - ICD9: 781.99, E888.9, ICD10: R29.6 - FALLS RISK EDUCATION - XR RIBS BILATERAL/CHEST 4V - US ABD RIGHT UPPER QUADRANT - PROTHROMBIN TIME - COMPLETE BLOOD COUNT AND DIFFERENTIAL - COMPREHENSIVE METABOLIC PANEL 10. FDC current use of anticoagulant therapy - ICD9: V58.61, ICD10: Z79.01 - FALLS RISK EDUCATION - US ABD RIGHT UPPER QUADRANT - PROTHROMBIN TIME - COMPLETE BLOOD COUNT AND DIFFERENTIAL - COMPREHENSIVE METABOLIC PANEL 11. Prostate cancer (HCC) - ICD9: 185, ICD10: C61 - follow up with urology as scheduled HISTORY OF PRESENT ILLNESS: Sinus Symptoms: - Reports improvement in sinus symptoms since last visit. - Previously had a headache, now resolved. Abdominal Cramps: - Experiencing intermittent abdominal cramps. - is having bowel movements Balance Issues: - Noted recent difficulties with balance, previously had excellent balance. - Feels skittish and a little bit shaky when walking on a dock. - Concerns about using scooters due to balance issues. - Denies changes in vision. - No use of cane or walker; finds support from shopping carts helpful but not ready for a walker yet - History of ear issues, including a drilled hole in the left eardrum by an ENT. - Hesitant to irrigate ears due to past pain from water/soap entering the ear canal. Hip Pain: - Reports hip pain when walking long distances. - Able to walk short distances and around grocery stores without significant discomfort PAST MEDICAL HISTORY: PAST MEDICAL HISTORY Diagnosis Date Abdominal aortic aneurysm (AAA) Abdominal pain, other specified site Asthma (HCC) Awareness under anesthesia CAD (coronary artery disease) Cholelithiasis 09/25/2013 Colitis Diabetes mellitus (HCC) type 2 diet controlled Elevated prostate specific antigen (PSA) Esophageal reflux Gastroesophageal reflux Hypertension Impotence of organic origin Impotence Nocturia SUJEY (obstructive sleep apnea) Post-void dribbling Prostate cancer (HCC) RUQ abdominal pain 09/25/2013 PAST SURGICAL HISTORY Procedure Laterality Date CABG (2) VEIN GRAFTS AND ARTERIAL GRAFT(S 10/16/2022 COLONOSCOPY FLX DX W/COLLJ SPEC WHEN PFRMD Colonoscopy Dr. Ferreira ESOPHAGOGASTRODUODENOSCOPY TRANSORAL DIAGNOSTIC EGD Dr. Ferreira LAPAROSCOPY SURG CHOLECYSTECTOMY 09/25/2013 PAST SURGICAL HISTORY OF IANDD left hand PAST SURGICAL HISTORY OF Removal cyst on back PROSTATE BIOPSY GUKI 07/14/2022 STENT PLACEMENT 4 Stents ALLERGIES Gemfibrozil, Rosuvastatin, Simvastatin, Imdur [Isosorbide], Mounjaro [Tirzepatide], Ozempic [Semaglutide], Penicillins, and Pravastatin MEDICATIONS Current Outpatient Medications Medication Sig nitroglycerin sublingual (NITROQUICK) 0.4 mg SL tablet Dissolve 1 tablet under the tongue every 5 minutes as needed. lansoprazole (PREVACID) 30 mg capsule Take 1 capsule by mouth daily before breakfast. 1/2 hr before meal. albuterol HFA (PROVENTIL HFA, VENTOLIN HFA) 90 mcg/actuation inhaler Inhale 2 puffs as instructed every 4 hours as needed for wheezing/shortness of breath. apixaban (ELIQUIS) 5 mg tab(s) Take 1 tablet by mouth two times a day. evolocumab (REPATHA SURECLICK) 140 mg/mL pen injector Inject 140 mg subcutaneously every 2 weeks. losartan (COZAAR) 100 mg tablet Take 1 tablet by mouth once daily. aspirin, enteric coated (ECOTRIN LOW STRENGTH) 81 mg EC tablet Take 1 tablet by mouth once daily. guaiFENesin (MUCIN (more content not included)... Normal [facility] US ABD RIGHT UPPER QUADRANTo n 09-18-2025 US ABD RIGHT UPPER QUADRANT * * *Final Report* * * DATE OF EXAM: Jun 21 2025 2:04PM [facility] 1032 - US ABD RIGHT UPPER QUADRANT / PROCEDURE REASON: multiple diagnoses * * * * Physician Interpretation * * * * EXAMINATION: RIGHT UPPER QUADRANT AND SPLEEN ULTRASOUND CLINICAL HISTORY: 75 years old Male with Generalized abdominal tenderness without rebound tenderness. Falling episodes. FDC current use of anticoagulant therapy TECHNIQUE: Sonography of the right upper quadrant and spleen was performed. Images were obtained and stored in a permanent archive. MQ: URUQ_2 COMPARISON: Right upper quadrant ultrasound 09/28/2024, CT 02/24/2022. RESULT: Limitations: Shadowing bowel gas and ribs. Pancreas: Normal sonographic appearance of the visualized portion. Liver: Suboptimal visualization due to poor acoustic penetration. Echotexture: Normal, homogeneous. Echogenicity: Increased Surface contour: Smooth Lesions: 1 cm cyst inferior RIGHT hepatic lobe. Biliary: No intrahepatic biliary duct dilation. CBD: 0.4 cm at the hilum. Gallbladder: Prior cholecystectomy Right Kidney: No hydronephrosis. Ascites: None. Spleen: Poorly visualized due to shadowing bowel gas. Craniocaudal length: 8.3 cm, normal. Lesions: Evaluation for lesions is limited due to poor visualization. Left kidney: No hydronephrosis. IMPRESSION: Hepatic steatosis. 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 Transcribe Date/Time: Jun 21 2025 2:17P Dictated by : NICHOLAS ANAYA DO This examination was interpreted and the report reviewed and electronically signed by: NICHOLAS ANAYA DO on Jun 21 2025 2:20PM EST [id number] Normal [facility] US ABD SPLEEN -NBon 06-21-20 25 US ABD SPLEEN -NB * * *Final Report* * * DATE OF EXAM: Jun 21 2025 2:04PM [facility] 1232 - US ABD SPLEEN -NB / PROCEDURE REASON: multiple diagnoses * * * * Physician Interpretation * * * * EXAMINATION: RIGHT UPPER QUADRANT AND SPLEEN ULTRASOUND CLINICAL HISTORY: 75 years old Male with Generalized abdominal tenderness without rebound tenderness. Falling episodes. FDC current use of anticoagulant therapy TECHNIQUE: Sonography of the right upper quadrant and spleen was performed. Images were obtained and stored in a permanent archive. MQ: URUQ_2 COMPARISON: Right upper quadrant ultrasound 09/28/2024, CT 02/24/2022. RESULT: Limitations: Shadowing bowel gas and ribs. Pancreas: Normal sonographic appearance of the visualized portion. Liver: Suboptimal visualization due to poor acoustic penetration. Echotexture: Normal, homogeneous. Echogenicity: Increased Surface contour: Smooth Lesions: 1 cm cyst inferior RIGHT hepatic lobe. Biliary: No intrahepatic biliary duct dilation. CBD: 0.4 cm at the hilum. Gallbladder: Prior cholecystectomy Right Kidney: No hydronephrosis. Ascites: None. Spleen: Poorly visualized due to shadowing bowel gas. Craniocaudal length: 8.3 cm, normal. Lesions: Evaluation for lesions is limited due to poor visualization. Left kidney: No hydronephrosis. IMPRESSION: Hepatic steatosis. 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 Transcribe Date/Time: Jun 21 2025 2:17P Dictated by : NICHOLAS ANAYA DO This examination was interpreted and the report reviewed and electronically signed by: NICHOLAS ANAYA DO on Jun 21 2025 2:20PM EST [id number] Normal [facility] ALBUMIN/CREATININE RATIO, UR INEon 06-20-2025 Albumin DL <= 20 mg/L (U) [Mass/Vol] 28.1 mg/L Normal [facility] Comment on above: Order Comment: Speci men Type: URINE SPECIMEN Ordering Facility: [facility] Address: [address] [place] [address] Performed By: #### U ACR #### [facility] CLIA [id number] [address] [place] [address] [place] J Albumin/Creatinine (U) [Mass ratio] 55 mg/g High <30 [facility] Comment on above: Order Comment: Speci men Type: URINE SPECIMEN Ordering Facility: [facility] Address: [address] [place] [address] Result Comment: Adul t Male and Female Nephrotic Criteria: <30 mg/g is considered normal to mildly increased 30-300 mg/g is considered moderately increased >300 mg/g is considered severely increased KDIGO. (2013). KDIGO 2012 Clinical Practice Guideline for the Evaluation and Management of Chronic Kidney Disease. Official Journal of the International Society of Nephrology, 3(1), 1-150. Performed By: #### U ACR #### [facility] CLIA [id number] [address] [place] [address] [place] J Creatinine (U) [Mass/Vol] 50.9 mg/dL Normal 20.0-300.0 [facility] Comment on above: Order Comment: Speci men Type: URINE SPECIMEN Ordering Facility: [facility] Address: [address] [place] [address] Performed By: #### U ACR #### [facility] CLIA [id number] [address] [place] [address] [place] CBC W Auto Differential pane l (Bld)on 06-20-2025 Basophils (Bld) [#/Vol] 0.08 10*3/uL Normal <0.11 [facility] Comment on above: Order Comment: Speci men Type: BLOOD SPECIMEN Ordering Facility: [facility] Address: [address] [place] [address] Performed By: #### 5 5454-3 #### [facility] CLIA [id number] [address] [place] [address] [place] J Basophils/100 WBC (Bld) 1.0 % Normal [facility] Comment on above: Order Comment: Speci men Type: BLOOD SPECIMEN Ordering Facility: [facility] Address: [address] [place] [address] Performed By: #### 5 5454-3 #### [facility] CLIA [id number] [address] [place] [address] [place] J Differential cell count method Nom (Bld) Auto Normal [facility] Comment on above: Order Comment: Speci men Type: BLOOD SPECIMEN Ordering Facility: [facility] Address: [address] [place] [address] Performed By: #### 5 5454-3 #### [facility] CLIA [id number] [address] [place] [address] [place] J Eosinophils (Bld) [#/Vol] 0.45 10*3/uL Normal <0.46 [facility] Comment on above: Order Comment: Speci men Type: BLOOD SPECIMEN Ordering Facility: [facility] Address: [address] [place] [address] Performed By: #### 5 5454-3 #### [facility] CLIA [id number] [address] [place] [address] [place] J Eosinophils/100 WBC (Bld) 5.5 % Normal [facility] Comment on above: Order Comment: Speci men Type: BLOOD SPECIMEN Ordering Facility: [facility] Address: [address] [place] [address] Performed By: #### 5 5454-3 #### [facility] CLIA [id number] [address] [place] [address] [place] J Erythrocyte distribution width (RBC) [Ratio] 14.2 % Normal 11.5-15.0 [facility] Comment on above: Order Comment: Speci men Type: BLOOD SPECIMEN Ordering Facility: [facility] Address: [address] [place] [address] Performed By: #### 5 5454-3 #### [facility] CLIA [id number] [address] [place] [address] [place] J Hematocrit (Bld) [Volume fraction] 44.3 % Normal 39.0-51.0 [facility] Comment on above: Order Comment: Speci men Type: BLOOD SPECIMEN Ordering Facility: [facility] Address: [address] [place] [address] Performed By: #### 5 5454-3 #### [facility] CLIA [id number] [address] [place] [address] [place] J Hemoglobin (Bld) [Mass/Vol] 14.5 g/dL Normal 13.0-17.0 [facility] Comment on above: Order Comment: Speci men Type: BLOOD SPECIMEN Ordering Facility: [facility] Address: [address] [place] [address] Performed By: #### 5 5454-3 #### [facility] CLIA [id number] [address] [place] [address] [place] J Immature granulocytes (Bld) [#/Vol] 10*3/uL Normal <0.10 [facility] Comment on above: Order Comment: Speci men Type: BLOOD SPECIMEN Ordering Facility: [facility] Address: [address] [place] [address] Performed By: #### 5 5454-3 #### [facility] CLIA [id number] [address] [place] [address] [place] J Immature granulocytes/100 WBC (Bld) 0.2 % Normal [facility] Comment on above: Order Comment: Speci men Type: BLOOD SPECIMEN Ordering Facility: [facility] Address: [address] [place] [address] Performed By: #### 5 5454-3 #### [facility] CLIA [id number] [address] [place] [address] [place] J Lymphocytes (Bld) [#/Vol] 1.24 10*3/uL Normal 1.00-4.00 [facility] Comment on above: Order Comment: Speci men Type: BLOOD SPECIMEN Ordering Facility: [facility] Address: [address] [place] [address] Performed By: #### 5 5454-3 #### [facility] CLIA [id number] [address] [place] [address] [place] J Lymphocytes/100 WBC (Bld) 15.2 % Normal [facility] Comment on above: Order Comment: Speci men Type: BLOOD SPECIMEN Ordering Facility: [facility] Address: [address] [place] [address] Performed By: #### 5 5454-3 #### [facility] CLIA [id number] [address] [place] [address] [place] MCH (RBC) [Entitic mass] 30.7 pg Normal 26.0-34.0 [facility] Comment on above: Order Comment: Speci men Type: BLOOD SPECIMEN Ordering Facility: [facility] Address: [address] [place] [address] Performed By: #### 5 5454-3 #### [facility] CLIA [id number] [address] [place] [address] [place] MCHC (RBC) [Mass/Vol] 32.7 g/dL Normal 30.5-36.0 [facility] Comment on above: Order Comment: Speci men Type: BLOOD SPECIMEN Ordering Facility: [facility] Address: [address] [place] [address] Performed By: #### 5 5454-3 #### [facility] CLIA [id number] [address] [place] [address] [place] MCV (RBC) [Entitic vol] 93.9 fL Normal 80.0-100.0 [facility] Comment on above: Order Comment: Speci men Type: BLOOD SPECIMEN Ordering Facility: [facility] Address: [address] [place] [address] Performed By: #### 5 5454-3 #### [facility] CLIA [id number] [address] [place] [address] [place] J Monocytes (Bld) [#/Vol] 0.60 10*3/uL Normal <0.87 [facility] [facility] Comment on above: Order Comment: Speci men Type: BLOOD SPECIMEN Ordering Facility: [facility] Address: [address] [place] [address] Performed By: #### 5 5454-3 #### [facility] CLIA [id number] [address] [place] [address] [place] Monocytes/100 WBC (Bld) 7.3 % Normal [facility] Comment on above: Order Comment: Speci men Type: BLOOD SPECIMEN Ordering Facility: [facility] Address: [address] [place] [address] Performed By: #### 5 5454-3 #### [facility] CLIA [id number] [address] [place] [address] [place] Neutrophils (Bld) [#/Vol] 5.79 10*3/uL Normal 1.45-7.50 [facility] Comment on above: Order Comment: Speci men Type: BLOOD SPECIMEN Ordering Facility: [facility] Address: [address] [place] [address] Performed By: #### 5 5454-3 #### [facility] CLIA [id number] [address] [place] [address] [place] Neutrophils/100 WBC (Bld) 70.8 % Normal [facility] Comment on above: Order Comment: Speci men Type: BLOOD SPECIMEN Ordering Facility: [facility] Address: [address] [place] [address] Performed By: #### 5 5454-3 #### [facility] CLIA [id number] [address] [place] [address] [place] Nucleated RBC (Bld) [#/Vol] 10*3/uL Normal <0.01 [facility] Comment on above: Order Comment: Speci men Type: BLOOD SPECIMEN Ordering Facility: [facility] Address: [address] [place] [address] Performed By: #### 5 5454-3 #### [facility] CLIA [id number] [address] [place] [address] [place] Nucleated RBC/100 WBC (Bld) [Ratio] 0.0 /100 WBC Normal [facility] Comment on above: Order Comment: Speci men Type: BLOOD SPECIMEN Ordering Facility: [facility] Address: [address] [place] [address] Performed By: #### 5 5454-3 #### [facility] CLIA [id number] [address] [place], [place] [address] [place] Platelet mean volume (Bld) [Entitic vol] 9.3 fL Normal 9.0-12.7 [facility] Comment on above: Order Comment: Speci men Type: BLOOD SPECIMEN Ordering Facility: [facility] Address: [address] [place] [address] Performed By: #### 5 5454-3 #### [facility] CLIA [id number] [address] [place] [address] [place] Platelets (Bld) [#/Vol] 341 10*3/uL Normal 150-400 [facility] Comment on above: Order Comment: Speci men Type: BLOOD SPECIMEN Ordering Facility: [facility] Address: [address] [place] [address] Performed By: #### 5 5454-3 #### [facility] CLIA [id number] [address] [place] [address] [place] RBC (Bld) [#/Vol] 4.72 10*6/uL Normal 4.20-6.00 [facility] Comment on above: Order Comment: Speci men Type: BLOOD SPECIMEN Ordering Facility: [facility] Address: [address] [place] [address] Performed By: #### 5 5454-3 #### [facility] CLIA [id number] [address] [place] [address] [place] WBC (Bld) [#/Vol] 8.18 10*3/uL Normal 3.70-11.00 [facility] Comment on above: Order Comment: Speci men Type: BLOOD SPECIMEN Ordering Facility: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 polyphagia; reports polydipsia and polyuria - Endocrinology consult years ago with Dr Rodgers but never went back (no specific reason) Hypertension: - Home BP readings: 170-180 mmHg at times Last 14 BP Last 14 Encounter BP Readings: Date: BP: 05/14/2025 140/70 03/12/2025 120/60 03/06/2025 172/70 02/20/2025 137/73 12/15/2024 142/78 11/27/2024 149/93 11/16/2024 138/80 09/06/2024 132/82 09/04/2024 150/84 08/15/2024 155/78 07/19/2024 150/70 07/19/2024 177/85 07/12/2024 123/76 06/23/2024 130/82 - Taking losartan and aspirin. - Discontinued carvedilol due to fatigue and fogging. Prostate Cancer: - Due for PSA test; last PSA in November was 0.07. - Upcoming urology appointment on the , he asks for PSA level prior to that appt Asthma: - Previously on Xolair for 6 years; discontinued due to insurance issues. - Co Pilot working on different injections. - Denies significant dyspnea; reports wheezing. Diverticulosis: - Severe attack in June. - Reports queasiness, abdominal cramps, and bloating. - Bowel movements daily, sometimes multiple times; no hematochezia. - Recent colonoscopy in July. - Denies dietary changes affecting symptoms. - denies changes in stool Todays BP he says well that's good for me He has a cardiology appointment on 05/31 Med intolerance/noncompliance Also not always sure if he knows the med you're asking if he's taking or says yes but isn't taking it, seems to be some forgetfulness when discussing medication and medical history although at times recalls several details. Feels like he's gaining weight around his abdomen, weight has actually decreased Most Recent 05/16/22 - 05/14/25 11/27/24 10:49 12/15/24 14:27 02/20/25 09:28 03/06/25 13:38 03/12/25 15:08 05/14/25 14:23 Weight 221 lb (100.2 kg) 05/14/25 14:23 230 lb (104.3 kg) 231 lb 0.7 oz (104.8 kg) 225 lb 12.8 oz (102.4 kg) 230 lb 1.9 oz (104.4 kg) 226 lb (102.5 kg) 221 lb (100.2 kg) PAST MEDICAL HISTORY: PAST MEDICAL HISTORY[1] PAST SURGICAL HISTORY Procedure Laterality Date CABG (2) VEIN GRAFTS AND ARTERIAL GRAFT(S 10/16/2022 COLONOSCOPY FLX DX W/COLLJ SPEC WHEN PFRMD Colonoscopy Dr. Ferreira ESOPHAGOGASTRODUODENOSCOPY TRANSORAL DIAGNOSTIC EGD Dr. Ferreira LAPAROSCOPY SURG CHOLECYSTECTOMY 09/25/2013 PAST SURGICAL HISTORY OF IANDD left hand PAST SURGICAL HISTORY OF Removal cyst on back PROSTATE BIOPSY GUKI 07/14/2022 STENT PLACEMENT 4 Stents ALLERGIES Gemfibrozil, Rosuvastatin, Simvastatin, Imdur [Isosorbide], Mounjaro [Tirzepatide], Ozempic [Semaglutide], Penicillins, and Pravastatin MEDICATIONS CURRENT MEDICATIONS[2] FAMILY HISTORY[3] SOCIAL HISTORY[4] REVIEW OF SYSTEMS Constitutional: (+) fatigue Respiratory: (+) wheezing, (-) shortness of breath Gastrointestinal: (+) nausea, (+) abdominal cramps, (+) abdominal fullness, (+) change in stool caliber, (-) blood in stool Genitourinary: (+) urinary frequency Musculoskeletal: (+) leg swelling Psychiatric: (+) excessive worry Endocrine: (+) polydipsia See HPI EXAM: BP 140/70 (BP Site: Left Arm, BP Position: Sitting, BP Cuff Size: Large Adult) Pulse 64 Resp 14 Wt 100.2 kg (221 lb) SpO2 98% BMI 29.97 kg/m? PHYSICAL EXAM: General Appearance: Well appearing, alert, in no acute distress, well-hydrated, well nourished.. Lungs: Lungs clear to auscultation. No wheezing, rhonchi, rales.. Heart: RRR without murmur, gallop, or rubs. No ectopy. Abdomen: distended but soft, BS normoactive, nontender Extremities: sock line edema, otherwise nonpitting ASSESSMENT/PLAN: 1. Type 2 diabetes mellitus without complication, without long-term current use of insulin ([facility]) - ICD9: 250.00, ICD10: E11.9 (primary diagnosis) - Worsening control - Barriers to control: diet adherence, lack of exercise, and medication intolerance and stopping meds - Discussed diabetic education issues of diabetes complications and monitoring required, hypoglycemic/hyperglycemic symptoms, and medication-specific side effects and monitoring - HEMOGLOBIN A1C (more content not included)... Normal [facility] NT-proBNP SerPl-mCncon 05-14 Natriuretic peptide.B prohormone N-Terminal [Mass/Vol] 87 pg/mL Normal <125 [facility] Comment on above: Order Comment: Speci men Type: BLOOD SPECIMEN Ordering Facility: [facility] Address: [address] [place] [address] Performed By: #### 5 [id number] #### [facility] CLIA [id number] [address] [place] [address] [place] PSA SerPl-mCncon 05-14-2025 Prostate specific Ag [Mass/Vol] 0.04 ng/mL Normal <2.60 [facility] Comment on above: Order Comment: Speci men Type: BLOOD SPECIMEN Ordering Facility: [facility] Address: [address] [place] [address] Result Comment: Tota l PSA test methodology used is the Electrochemiluminescence Immunoassay by [employer]. Total PSA values by differing methodologies cannot be interchanged. Performed By: #### 2 [id number] #### [facility] CLIA [id number] [address] [place] [address] [place] Pulmonary Visit Reporton Pulmonary Visit Report [facility] [place] [address] [place] [address] OFFICE VISIT Date of Service: 05/01/25 MR#: [id number] Acct: [id number] Name: DENTON WESLEY Rep #: [id number] : 1950 Provider: Codi Collier NP Age/Sex: 74/M [place] [facility] Status: Signed Assessment and Plan Assessment and Plan (1) COPD (chronic obstructive pulmonary disease): Status: Chronic Qualifiers: COPD type: unspecified COPD Qualified Code(s): J44.9 - Chronic obstructive pulmonary disease, unspecified Comment: Eosinophilia, total eosinophil count 417 Plan: Suboptimally controlled with current regimen of Advair 500 mcg. The patient did have significant benefit with use of Xolair but then the insurance would no longer cover this therapy for him. Now due to eosinophilia present on CBC I believe that he would have a better response to Dupixent and have ordered it accordingly. The use of this medication and potential side effects were reviewed at length with patient today. He has agreed to come into this practice for the 2-hour monitoring as he begins the biologic. I have recommended repeating the PFT at this time. (2) Severe persistent asthma: Status: Chronic Qualifiers: Asthma complication type: unspecified Qualified Code(s): J45.50 - Severe persistent asthma, uncomplicated Plan: Await response to Dupixent. Due to his wheeze on today's exam I have asked for him to increase use of Advair to 500 mcg 1 inhalation twice daily. (3) Smoking greater than 20 pack years: Status: Chronic Comment: 1.5 ppd repeat LDCT September 2025 Plan: He has been encouraged to proceed with complete smoking cessation. He remains appropriate for LDCT, previously ordered accordingly for September 2025. (4) Obesity: Status: Chronic Qualifiers: Body mass index: BMI 33.0-33.9 Obesity classification: adult class 1 (BMI 30 - 34.9) Obesity type: due to excess calories Serious obesity comorbidity presence: with serious comorbidity Qualified Code(s): E66.09 - Other obesity due to excess calories; Z68.33 - Body mass index [BMI] 33.0-33.9, adult Plan: Weight loss to be obtained through prudent dieting and daily exercise. Orders: Orders NIOX Today J44.9 - Chronic obstructive pulmonary disease, unspecified PFT Complete - DLCO, Spirometry b/a bronchodilators, lung volumes Today J44.9 - Chronic obstructive pulmonary disease, unspecified Medications: New dupilumab (Dupixent) 300 mg (2 mL) subcut Q2W 4 mL 11RF D72.10 - Eosinophilia, unspecified, J44.9 - Chronic obstructive pulmonary disease, unspecified Discontinued omalizumab (Xolair) Discontinued Reason: Order Changed 300 mg (2 mL) subcut Q4W 2 mL 11RF Plan Details Follow Up: 3 Months (LMR) HPI HPI Comments Details: This patient presents to the office today for follow-up. He is ambulatory and currently on room air. He has not required antibiotics or oral prednisone since last follow-up for respiratory illness. He has not needed ER or urgent care for respiratory symptoms. He did need antibiotics and prednisone earlier this year from local urgent care. He is using Advair 500, at bedtime. He denies any medication side effect such as sore throat or thrush. He has been using his rescue inhaler for the last week. He not using Xolair injections. His last injection was October. His insurance stopped covering the injectable. He was getting this for 4-5 years. He also takes Singulair daily with good benefit and uses Mucinex on occasion. He admits that he was a previous smoker quitting 10 years ago, however started smoking again about a year ago. He is currently smoking less than 1/2 pack/day. Tree pollen and ragweed are his triggers. He reports that he has tightness at times. He denies shortness of breath. He does have a cough that is productive with milky white sputum. He does use Mucinex as needed. He reports occasional wheeze. He did use his rescue inhaler about a week ago . Low-dose CT lung screen completed on September 21, 2024. No suspicious nodules are seen. Recommendation is continue LDCT in 12 months. Documentation reviewed with patient today includes: Sputum culture from March 01, 2025 shows mixed normal respiratory larry. CBC from April 27, 2025 shows total eosinophilic count 417. Intake Vital Signs 02/27/25 09:37 05/01/25 08:52 Height 6 ft 6 ft Weight: 220 lb BMI 29.8 BP 158/89 H Blood Pressure Location Rt brachial Position Sitting Respiration 20 H Pulse 83 Pulse Source Monitor Temp 97.6 F L Temperature Source Temporal Artery Pulse Oximetry (%) 95 Oxygen Delivery Method room air Intake Visit Reasons: 6 wk FU [employer] Representatives Required: No DME Vendor: n/a Accompanied by: Self Allergies gemfibrozil Adverse Reaction (Severe, Verified 05/01/25 1 (more content not included)... Normal [facility] Absolute lymphocyte countOrd ered By: PRERNA Collier on 04-04-2025 Lymphocytes Auto (Unsp spec) [#/Vol] 1.50 10*3/uL 0.83-4.51 [facility] Absolute neutrophil countOrd ered By: PRERNA Collier on 04-04-2025 Neutrophils (Bld) [#/Vol] 5.7 10*3/uL 2.0-7.7 [facility] Automated lymphocyte count a s percentage of total leukocytesOrdered By: PRRENA Collier on 04-04-2025 Lymphocytes/100 WBC Auto (Unsp spec) 17.3 % Low 19-41 [facility] Basophil percentageOrdered B y: PRERNA Collier on 04-04-2025 Basophils/100 WBC (Bld) 1.6 % High 0-1 [facility] CBC W/Diff, Automatedon Absolute Lymph 1.50 X10 3/uL Normal 0.83-4.51 [facility] Comment on above: Performed By: #### L 100.0100 #### [facility] [address] [place], [address] Absolute Neut 5.7 X10 3/uL Normal 2.0-7.7 [facility] Comment on above: Performed By: #### L 100.0100 #### [facility] [address] [place], [address] Basophils/100 WBC (Bld) 1.6 % High 0-1 [facility] Comment on above: Performed By: #### L 100.0100 #### [facility] [address] [place], [address] Eosinophils/100 WBC (Bld) 4.8 % Normal 0-5 [facility] Comment on above: Performed By: #### L 100.0100 #### [facility] [address] [place], [address] Erythrocyte distribution width (RBC) [Ratio] 13.5 % Normal 11.6-14.6 [facility] Comment on above: Performed By: #### L 100.0100 #### [facility] [address] [place], [address] Hematocrit (Bld) [Volume fraction] 40.3 % Normal 40-54 [facility] Comment on above: Performed By: #### L 100.0100 #### [facility] [address] [place], [address] Hemoglobin (Bld) [Mass/Vol] 13.2 g/dL Normal 13.0-16.5 [facility] Comment on above: Performed By: #### L 100.0100 #### [facility] [address] [place], [address] IG% 1.000 High 0.0-0.9 [facility] Comment on above: Result Comment: IG% - Immature Granulocytes (promyelocytes, myelocytes and metamyelocytes) > 1% indicates that a LEFT SHIFT is Present. Performed By: #### L 100.0100 #### [facility] [address] [place], [address] Lymphocytes/100 WBC (Bld) 17.3 % Low 19-41 [facility] Comment on above: Performed By: #### L 100.0100 #### [facility] [address] [place], [address] MCH (RBC) [Entitic mass] 30.2 pg Normal 27.0-32.0 [facility] Comment on above: Performed By: #### L 100.0100 #### [facility] [address] [place], [address] MCHC (RBC) [Mass/Vol] 32.8 g/dL Normal 32-36 [facility] Comment on above: Performed By: #### L 100.0100 #### [facility] [address] [place], [address] MCV (RBC) [Entitic vol] 92.2 fL Normal 80-94 [facility] Comment on above: Performed By: #### L 100.0100 #### [facility] [address] [place], [address] Monocytes/100 WBC (Bld) 9.4 % Normal 0-10 [facility] Comment on above: Performed By: #### L 100.0100 #### [facility] [address] [place], [address] Neutrophils/100 WBC (Bld) 65.9 % Normal 47-70 [facility] Comment on above: Performed By: #### L 100.0100 #### [facility] [address] [place], [address] Nucleated RBC (Bld) [#/Vol] 0 10*3/uL Normal 0-5 [facility] Comment on above: Performed By: #### L 100.0100 #### [facility] [address] [place], [address] Platelet mean volume (Bld) [Entitic vol] 8.6 fL Normal 6.2-12.0 [facility] Comment on above: Performed By: #### L 100.0100 #### [facility] [address] [place], [address] Platelets (Bld) [#/Vol] 423 10*3/uL Normal 150-450 [facility] Comment on above: Performed By: #### L 100.0100 #### [facility] [address] [place], [address] RBC (Bld) [#/Vol] 4.37 10*6/uL Low 4.6-6.2 [facility] Comment on above: Performed By: #### L 100.0100 #### [facility] [address] [place], [address] RDW SD 46.2 fl High 35.1-43.9 [facility] Comment on above: Performed By: #### L 100.0100 #### [facility] [address] [place], [address] WBC (Bld) [#/Vol] 8.7 10*3/uL Normal 4.4-11.0 [facility] Comment on above: Performed By: #### L 100.0100 #### [facility] [address] [place], [address] Eosinophil percentageOrdered By: PRERNA Collier on 04-04-2025 Eosinophils/100 WBC (Bld) 4.8 % 0-5 [facility] Erythrocyte distribution wid th ratioOrdered By: PRERNA Collier on 04-04-2025 Erythrocyte distribution width (RBC) [Ratio] 13.5 % 11.6-14.6 [facility] Erythrocyte distribution wid th standard deviationOrdered By: PRERNA Collier on 04-04-2025 Erythrocyte distribution width (RBC) [Ratio] 46.2 fl High 35.1-43.9 [facility] Hematocrit Auto (Bld) [Volum e fraction]Ordered By: PRERNA Collier on 04-04-2025 Hematocrit (Bld) [Volume fraction] 40.3 % 40-54 [facility] Hemoglobin measurementOrdere d By: PRERNA Collier on 04-04-2025 Hemoglobin (Bld) [Mass/Vol] 13.2 g/dL 13.0-16.5 [facility] Immature granulocytes/100 WB C Auto (Bld)Ordered By: PRERNA Collier on 04-04-2025 Immature granulocytes/100 WBC (Bld) 1.000 % High 0.0-0.9 [facility] Comment on above: IG% - Immature Granu locytes (promyelocytes, myelocytes and metamyelocytes) > 1% indicates that a LEFT SHIFT is Present. MCV (mean corpuscular volume ) determinationOrdered By: PRERNA Collier on 04-04-2025 MCV (RBC) [Entitic vol] 92.2 fL 80-94 [facility] Mean corpuscular hemoglobin (MCH) determinationOrdered By: PRERNA Collier on 04-04-2025 MCH (RBC) [Entitic mass] 30.2 pg 27.0-32.0 [facility] Mean corpuscular hemoglobin concentration (MCHC) determinationOrdered By: PRERNA Collier on 04-04-2025 MCHC (RBC) [Mass/Vol] 32.8 g/dL 32-36 [facility] Mean platelet volume determi nationOrdered By: PRERNA Collier on 04-04-2025 Platelet mean volume (Bld) [Entitic vol] 8.6 fL 6.2-12.0 [facility] Monocyte percentageOrdered B y: PRERNA Collier on 04-04-2025 Monocytes/100 WBC (Bld) 9.4 % 0-10 [facility] Neutrophil percentageOrdered By: PRERNA Collier on 04-04-2025 Neutrophils/100 WBC (Bld) 65.9 % 47-70 [facility] Nucleated red blood cell per centageOrdered By: PRERNA Collier on 04-04-2025 Nucleated RBC/100 WBC (Bld) [Ratio] 0 % 0-5 [facility] Platelet countOrdered By: PRERNA Collier on 04-04-2025 Platelets (Bld) [#/Vol] 423 10*3/uL 150-450 [facility] RBC Auto (Bld) [#/Vol]Ordere d By: PRERNA Collier on 04-04-2025 RBC (Bld) [#/Vol] 4.37 10*6/uL Low 4.6-6.2 [facility] White blood cell (WBC) count Ordered By: PRERNA Collier on 04-04-2025 WBC (Bld) [#/Vol] 8.7 10*3/uL 4.4-11.0 [facility] CNCOon 03-22-2025 CNCO Letter Text Letter Text Normal [facility] CNOVon 03-12-2025 CNOV Office Visit (FAMPWS ) -- DENTON WESLEY ([id number]) 1950 M Date Time Provider Department 03/12/25 3:00 PM MELVA LOZADA During your visit today, we recorded the following information about you: Pulse Respiration Blood pressure Weight 70/minute 14/minute 120/60 102.5 kg Melva Lozada APRN.TECHNICAL SUPPORT CONSULTANT 03/12/2025 3:49 PM Signed This is a 74 year old male who presents today with: Denton Wesley is a 74-year-old male with a history of HTN, DM, and asthma, presenting for a blood pressure check and follow-up on recent sinus infection and chest congestion. HISTORY OF PRESENT ILLNESS: Hypertension: - Recent BP readings in the 170s; today's reading is 120/60 mmHg. - Not currently taking amlodipine Diabetes Mellitus: - Recent A1c: 7.6%. - Not currently taking glipizide -stopped Ozempic due to GI side effects, but daughter mentioned to him another injectable that he may tolerate better (mounjaro) and he would be willing to try this -he doesn't recall why he isn't taking the glipizide anymore, recalls being on farxiga years ago from Dr Rodgers and tolerated that. Unsure reason he is no longer on that- Recent blood glucose readings, he reports he doesn't check it every day but has a machine that keeps track of it. He said he had to leave work recently because he didn't feel good so he checked it and it was above 250. Sinus Infection: - Recent sinus infection; stopped antibiotics after 5 days due to GI side effects. - Reports improvement in symptoms although still getting over it Chest Congestion: - Persistent chest congestion x3 weeks; reports gradual improvement. - Asthma previously well-controlled with Xolair injections until October; insurance discontinued coverage. - Currently using Advair inhaler. - he has follow up with [facility] to discuss Dupixent 09/06/24 14:49 11/16/24 13:06 11/27/24 10:49 12/15/24 14:27 02/20/25 09:28 03/06/25 13:38 03/12/25 15:08 BP 132/82 138/80 149/93 142/78 137/73 172/70 120/60 PAST MEDICAL HISTORY: PAST MEDICAL HISTORY Diagnosis Date Abdominal aortic aneurysm (AAA) Abdominal pain, other specified site Asthma (HCC) Awareness under anesthesia CAD (coronary artery disease) Cholelithiasis 09/25/2013 Colitis Diabetes mellitus (HCC) type 2 diet controlled Elevated prostate specific antigen (PSA) Esophageal reflux Gastroesophageal reflux Hypertension Impotence of organic origin Impotence Nocturia SUJEY (obstructive sleep apnea) Post-void dribbling Prostate cancer (HCC) RUQ abdominal pain 09/25/2013 PAST SURGICAL HISTORY Procedure Laterality Date CABG (2) VEIN GRAFTS AND ARTERIAL GRAFT(S 10/16/2022 COLONOSCOPY FLX DX W/COLLJ SPEC WHEN PFRMD Colonoscopy Dr. Ferreira ESOPHAGOGASTRODUODENOSCOPY TRANSORAL DIAGNOSTIC EGD Dr. Ferreira LAPAROSCOPY SURG CHOLECYSTECTOMY 09/25/2013 PAST SURGICAL HISTORY OF IANDD left hand PAST SURGICAL HISTORY OF Removal cyst on back PROSTATE BIOPSY GUKI 07/14/2022 STENT PLACEMENT 4 Stents ALLERGIES Gemfibrozil, Rosuvastatin, Simvastatin, Imdur [Isosorbide], Penicillins, and Pravastatin MEDICATIONS Current Outpatient Medications Medication Sig albuterol HFA (PROVENTIL HFA, VENTOLIN HFA) 90 mcg/actuation inhaler Inhale 2 puffs as instructed every 4 hours as needed for wheezing/shortness of breath. carvedilol (COREG) 25 mg tablet Take 1 tablet by mouth two times a day. apixaban (ELIQUIS) 5 mg tab(s) Take 1 tablet by mouth two times a day. evolocumab (REPATHA SURECLICK) 140 mg/mL pen injector Inject 140 mg subcutaneously every 2 weeks. losartan (COZAAR) 100 mg tablet Take 1 tablet by mouth once daily. aspirin, enteric coated (ECOTRIN LOW STRENGTH) 81 mg EC tablet Take 1 tablet by mouth once daily. guaiFENesin (MUCINEX) 600 mg 12 hr tablet Take 1 tablet by mouth twice daily as needed for cold/allergy symptoms. loratadine (CLARITIN) 10 mg tablet Take 1 tablet by mouth once daily. nitroglycerin sublingual (NITROQUICK) 0.4 mg SL tablet Dissolve 0.4 mg under the tongue every 5 minutes as needed. tirzepatide (MOUNJARO) 2.5 mg/0.5 mL pen injector Inject 2.5 mg subcutaneously one time a week. lansoprazole (PREVACID) 30 mg capsule Take 1 capsule by mouth daily before breakfast. 1/2 hr before meal. ADVAIR DISKUS 500-50 mcg/dose dsdv INHALE 1 (ONE) puff EVERY 12 HOURS No current facility-administered medications for this visit. FAMILY HISTORY Problem Relation Age of Onset Colon Cancer Mother Heart Mother Ovarian cancer Mother Prostate Cancer Brother Stroke Brother Emphysema Father Social History Tobacco Use Smoking status: Every Day Current packs/day: 0.25 Average packs/day: 0.3 packs/day for 1.5 years (0.4 ttl pk-yrs) Types: Cigarettes Start date: 08/25/2023 Smokeless tobacco: Never Tobacco comments: Resumed last week after the of his spouse (more content not included)... Normal [facility] Comprehensive metabolic 2000 panelon 03-09-2025 Albumin [Mass/Vol] 3.9 g/dL Normal 3.9-4.9 [facility] Comment on above: Order Comment: Speci men Type: BLOOD SPECIMEN Ordering Facility: [facility] Address: [address] [place] [address] Performed By: #### 5 5454-3 #### [facility] CLIA [id number] [address] [place] [address] [place] ALP [Catalytic activity/Vol] 62 U/L Normal 38-113 [facility] Comment on above: Order Comment: Speci men Type: BLOOD SPECIMEN Ordering Facility: [facility] Address: [address] [place] [address] Performed By: #### 5 5454-3 #### [facility] CLIA [id number] [address] [id number] [place] J ALT [Catalytic activity/Vol] 36 U/L Normal 10-54 [facility] Comment on above: Order Comment: Speci men Type: BLOOD SPECIMEN Ordering Facility: [facility] Address: [address] [place] [address] Performed By: #### 5 5454-3 #### [facility] CLIA [id number] [address] [place] [address] [place] Anion gap [Moles/Vol] 13 mmol/L Normal 8-15 [facility] Comment on above: Order Comment: Speci men Type: BLOOD SPECIMEN Ordering Facility: [facility] Address: [address] [place] [address] Performed By: #### 5 5454-3 #### [facility] CLIA [id number] [address] [place] [address] [place] J AST [Catalytic activity/Vol] 26 U/L Normal 14-40 [facility] Comment on above: Order Comment: Speci men Type: BLOOD SPECIMEN Ordering Facility: [facility] Address: [address] [place] [address] Performed By: #### 5 5454-3 #### [facility] CLIA [id number] [address] [place] [address] [place] J Bilirubin [Mass/Vol] 0.2 mg/dL Normal 0.2-1.3 [facility] Comment on above: Order Comment: Speci men Type: BLOOD SPECIMEN Ordering Facility: [facility] Address: [address] [place], [place] [id number] Performed By: #### 5 5454-3 #### [facility] CLIA [id number] [address] [place], [place] [id number] [place] J Calcium [Mass/Vol] 9.7 mg/dL Normal 8.5-10.2 [facility] Comment on above: Order Comment: Speci men Type: BLOOD SPECIMEN Ordering Facility: [facility] Address: [address] [place] [address] Performed By: #### 5 5454-3 #### [facility] CLIA [id number] [address] [place] [address] [place] J Chloride [Moles/Vol] 104 mmol/L Normal 98-107 [facility] Comment on above: Order Comment: Speci men Type: BLOOD SPECIMEN Ordering Facility: [facility] Address: [address] [place] [address] Performed By: #### 5 5454-3 #### [facility] CLIA [id number] [address] [place] [address] [place] J CO2 [Moles/Vol] 24 mmol/L Normal 22-30 [facility] Comment on above: Order Comment: Speci men Type: BLOOD SPECIMEN Ordering Facility: [facility] Address: [address] [place] [address] Performed By: #### 5 5454-3 #### [facility] CLIA [id number] [address] [place] [address] [place] J Creatinine [Mass/Vol] 0.87 mg/dL Normal 0.73-1.22 [facility] Comment on above: Order Comment: Speci men Type: BLOOD SPECIMEN Ordering Facility: [facility] Address: [address] [place] [address] Performed By: #### 5 5454-3 #### [facility] CLIA [id number] [address] [place] [address] [place] J Creatinine and Glomerular filtration rate.predicted panel (S/P/Bld) 91 mL/min/1.73m??? Normal >=60 [facility] Comment on above: Order Comment: Speci men Type: BLOOD SPECIMEN Ordering Facility: [facility] Address: [address] [place] [address] Result Comment: Pat mated Glomerular Filtration Rate (eGFR) is calculated using the 2020 CKD-EPI creatinine equation. This equation utilizes serum creatinine, sex, and age as parameters. The creatinine assay has traceable calibration to isotope dilution-mass spectrometry. Refer to KDIGO guidelines for clinical interpretation. In patients with unstable renal function, e.g. those with acute kidney injury, the eGFR may not accurately reflect actual GFR. Performed By: #### 5 5454-3 #### [facility] CLIA [id number] [address] [place] [address] [place] J Glucose [Mass/Vol] 161 mg/dL High 74-99 [facility] Comment on above: Order Comment: Rashaun aranda Type: BLOOD SPECIMEN Ordering Facility: [facility] Address: [address] [place] [address] Result Comment: The [place] Diabetes Association (ADA) provides guidance for cutoff values for fasting glucose and random glucose. The ADA defines fasting as no caloric intake for at least 8 hours. Fasting plasma glucose results between 100 to 125 mg/dL indicate increased risk for diabetes (prediabetes). Fasting plasma glucose results greater than or equal to 126 mg/dL meet the criteria for diagnosis of diabetes. In the absence of unequivocal hyperglycemia, results should be confirmed by repeat testing. In a patient with classic symptoms of hyperglycemia or hyperglycemic crisis, random plasma glucose results greater than or equal to 200 mg/dL meet the criteria for diagnosis of diabetes. Reference: Standards of Medical Care in Diabetes 2016, [place] Diabetes Association. Diabetes Care. 2016.39(Suppl 1). Performed By: #### 5 5454-3 #### [facility] CLIA [id number] [address] [place], [place] [id number] [place] J Potassium [Moles/Vol] 4.5 mmol/L Normal 3.7-5.1 [facility] Comment on above: Order Comment: Rashaun aranda Type: BLOOD SPECIMEN Ordering Facility: [facility] Address: [address] [place] [address] Performed By: #### 5 5454-3 #### [facility] CLIA [id number] [address] [place], [place] [id number] [place] J Protein [Mass/Vol] 6.8 g/dL Normal 6.3-8.0 [facility] Comment on above: Order Comment: Speci men Type: BLOOD SPECIMEN Ordering Facility: [facility] Address: [address] [place] [address] Performed By: #### 5 5454-3 #### [facility] CLIA [id number] [address] [place] [address] [place] J Sodium [Moles/Vol] 141 mmol/L Normal 136-144 [facility] Comment on above: Order Comment: Speci men Type: BLOOD SPECIMEN Ordering Facility: [facility] Address: [address] [place] [address] Performed By: #### 5 5454-3 #### [facility] CLIA [id number] [address] [place] [address] [place] J Urea nitrogen [Mass/Vol] 18 mg/dL Normal 9-24 [facility] Comment on above: Order Comment: Speci men Type: BLOOD SPECIMEN Ordering Facility: [facility] Address: [address] [place] [address] Performed By: #### 5 5454-3 #### [facility] CLIA [id number] [address] [place] [address] [place] J HbA1c (Bld)on 03-09-2025 Average glucose Estimated from glycated hemoglobin (Bld) [Mass/Vol] 171 mg/dL Normal [facility] Comment on above: Order Comment: Speci men Type: BLOOD SPECIMEN Ordering Facility: [facility] Address: [address] [place] [address] Result Comment: eAG: (Estimated average glucose) is a calculated value from HgbA1c and is home office representative of the average blood glucose level in the last 2-3 month period. Performed By: #### 5 5454-3 #### [facility] CLIA [id number] [address] [place] [address] [place] HbA1c (Bld) [Mass fraction] 7.6 % High 4.3-5.6 [facility] Comment on above: Order Comment: Speci men Type: BLOOD SPECIMEN Ordering Facility: [facility] Address: [address] [place] [address] Result Comment: [place] Diabetes Association guidelines indicate that patients with HgbA1c in the range 5.7-6.4% are at increased risk for development of diabetes, and intervention by lifestyle modification may be beneficial. HgbA1c greater or equal to 6.5% is considered diagnostic of diabetes. Performed By: #### 5 5454-3 #### [facility] CLIA [id number] [address] [place] [address] Dev 03-07-2025 CNPN Telephone (JEROMY) -- DENTON WESLEY ([id number]) 1950 M Date Time Provider Department 03/07/25 DORIS HERNÁNDEZ During your visit today, we recorded the following information about you: Doris Hernández PA-C 03/07/2025 11:38 AM Signed Please reach out to patient to see how he is feeling and have him schedule a BP follow up tomorrow on my schedule to recheck. Doris Hernández PA-C 03/07/2025 Ava Gil MA 03/07/2025 11:54 AM Addendum Attempted to contact patient, caller indicated wrong number. Attempted to reach out to EC daughter Louise. Unable to reach. Left message to have patient RCTO AND ask for a triage nurse. Please advise below and assist with scheduling. VERIFY/UPDATE PATIENT CONTACT INFORMATION. JOELLEN Ocampo [place], MA 03/09/2025 5:28 PM Addendum Spoke with patient and he reports yesterday was feeling really tired and lightheaded. Today feels better but still very tired. Pt reports his BP this morning was 173/94. No sx currently. Scheduled patient a follow up and BP check for 03/12 [address] Melva Barnhart NP. Dr. Lowry did review this message and reports pt is to go to ER if develops any sx over the weekend. Advised pt to seek sooner care if symptoms worsen. Arcaeli Gordon MA Allergies As of Date: 03/07/2025 Noted Allergy Reaction GEMFIBROZIL 09/25/2019 5 - Intolerance ROSUVASTATIN 09/25/2019 5 - Intolerance SIMVASTATIN 09/25/2019 5 - Intolerance IMDUR (ISOSORBIDE) 03/05/2022 5 - Intolerance Comments: Headaches, upset stomach, fatigue PENICILLINS 02/10/2007 5 - Intolerance Comments: passed out and felt like I had the flu Pt states he's no longer allergic to this, he's taken tests w/out issues. PRAVASTATIN 08/07/2021 17 - Myalgia Date Reviewed: 02/20/2025 Reviewed by: Ava Gil MA - Fully Assessed Prescriptions as of 08/07/2025 - nitroglycerin sublingual (NITROQUICK) 0.4 mg SL tablet Dissolve 1 tablet under the tongue every 5 minutes as needed. - lansoprazole (PREVACID) 30 mg capsule Take 1 capsule by mouth daily before breakfast. 1/2 hr before meal. - albuterol HFA (PROVENTIL HFA, VENTOLIN HFA) 90 mcg/actuation inhaler Inhale 2 puffs as instructed every 4 hours as needed for wheezing/shortness of breath. - apixaban (ELIQUIS) 5 mg tab(s) Take 1 tablet by mouth two times a day. - evolocumab (REPATHA SURECLICK) 140 mg/mL pen injector Inject 140 mg subcutaneously every 2 weeks. - losartan (COZAAR) 100 mg tablet Take 1 tablet by mouth once daily. - aspirin, enteric coated (ECOTRIN LOW STRENGTH) 81 mg EC tablet Take 1 tablet by mouth once daily. - guaiFENesin (MUCINEX) 600 mg 12 hr tablet Take 1 tablet by mouth twice daily as needed for cold/allergy symptoms. - loratadine (CLARITIN) 10 mg tablet Take 1 tablet by mouth once daily. - ADVAIR DISKUS 500-50 mcg/dose dsdv INHALE 1 (ONE) puff EVERY 12 HOURS Problem List As Of Date 03/07/2025 Noted Resolved SUBCUTANEOUS NODULES [R22.9] 02/21/2007 Dark urine [R82.998] 10/05/2013 Abdominal pain, other specified site [R10.9] Elevated glucose [R73.09] 01/29/2020 Coronary artery disease of [place] artery of [place]*01/29/2020 Mixed hyperlipidemia [E78.2] 01/29/2020 Essential hypertension [I10] 01/29/2020 S/P right coronary artery (RCA) stent placement*06/24/2021 Pure hypercholesterolemia [E78.00] 08/13/2021 Elevated PSA [R97.20] 03/11/2022 Stable angina (HCC) [I20.89] 06/10/2022 Dyspnea on exertion [R06.09] 06/10/2022 S/P CABG x 2 [Z95.1] 10/16/2022 Type 2 diabetes mellitus without complication, *12/11/2022 Prostate cancer (HCC) [C61] 07/30/2023 Postoperative atrial fibrillation (HCC) [I97.89*11/25/2023 Bilateral hip pain [M25.551, M25.552] 02/08/2024 History of colonic polyps [Z86.0100] 07/19/2024 Encounter Status:Closed by FAUSTINO CARLISLE on 08/07/25 [facility] CNOVon 03-06-2025 CNOV Office Visit (FAMPWS ) -- DENTON WESLEY ([id number]) 1950 M Date Time Provider Department 03/06/25 1:40 PM [facility] your visit today, we recorded the following information about you: Temperature Pulse Respiration Blood pressure 98.1 degrees 75/minute 16/minute 172/70 Weight 104.4 kg Doris Hernández PA-C 03/07/2025 11:37 AM Signed Recording using [employer] software for draft documentation of the visit was discussed with the patient/authorized home office representative; all questions welcomed and answered. Patient/authorized home office representative agreed to proceed 03/06/2025 Sinus Congestion: - Onset approximately 2 weeks ago, initially presenting with a sore throat. - Symptoms include significant sinus pressure, discomfort, and persistent rhinorrhea. - Rhinorrhea described as clear with occasional thick yellow discharge. - Denies recent fever; initial low-grade fever resolved. - Using Claritin daily and Nasacort nasal spray for symptom management. - History of sinus surgery 7 years ago. Chest Congestion - Onset shortly after initial sore throat. - Described as a sensation of tightness in the chest and congest. - Associated with coughing and shortness of breath. overall slighlty improved. - Recent chest X-ray showed no significant findings. - Sputum culture performed by [facility] revealed normal larry. - Completed a 5-day course of doxycycline with minimal improvement. pulmonary prescribed a short course of prednisone. Hyperlipidemia: - Managed with Repatha injections. - Recent cholesterol levels reported as well-controlled. Current Outpatient Medications on File Prior to Visit Medication Sig albuterol HFA (PROVENTIL HFA, VENTOLIN HFA) 90 mcg/actuation inhaler Inhale 2 puffs as instructed every 4 hours as needed for wheezing/shortness of breath. carvedilol (COREG) 25 mg tablet Take 1 tablet by mouth two times a day. apixaban (ELIQUIS) 5 mg tab(s) Take 1 tablet by mouth two times a day. evolocumab (REPATHA SURECLICK) 140 mg/mL pen injector Inject 140 mg subcutaneously every 2 weeks. losartan (COZAAR) 100 mg tablet Take 1 tablet by mouth once daily. lansoprazole (PREVACID) 30 mg capsule Take 1 capsule by mouth daily before breakfast. 1/2 hr before meal. aspirin, enteric coated (ECOTRIN LOW STRENGTH) 81 mg EC tablet Take 1 tablet by mouth once daily. guaiFENesin (MUCINEX) 600 mg 12 hr tablet Take 1 tablet by mouth twice daily as needed for cold/allergy symptoms. loratadine (CLARITIN) 10 mg tablet Take 1 tablet by mouth once daily. nitroglycerin sublingual (NITROQUICK) 0.4 mg SL tablet Dissolve 0.4 mg under the tongue every 5 minutes as needed. glipiZIDE (GLUCOTROL XL) 5 mg 24 hr tablet Take 1 tablet by mouth once daily. amLODIPine (NORVASC) 5 mg tablet Take 1 tablet by mouth once daily. ADVAIR DISKUS 500-50 mcg/dose dsdv INHALE 1 (ONE) puff EVERY 12 HOURS No current facility-administered medications on file prior to visit. PAST MEDICAL HISTORY Diagnosis Date Abdominal aortic aneurysm (AAA) Abdominal pain, other specified site Asthma ([facility]) Awareness under anesthesia CAD (coronary artery disease) Cholelithiasis 09/25/2013 Colitis Diabetes mellitus ([facility]) type 2 diet controlled Elevated prostate specific antigen (PSA) Esophageal reflux Gastroesophageal reflux Hypertension Impotence of organic origin Impotence Nocturia SUJEY (obstructive sleep apnea) Post-void dribbling Prostate cancer ([facility]) RUQ abdominal pain 09/25/2013 Allergies: Gemfibrozil Intolerance Rosuvastatin Intolerance Simvastatin Intolerance Imdur [Isosorbide] Intolerance Comment:Headaches, upset stomach, fatigue Penicillins Intolerance Comment:passed out and felt like I had the flu Pt states he's no longer allergic to this, he's taken tests w/out issues. Pravastatin Myalgia Constitutional: (+) fatigue, (+) malaise, (-) fever Ears/Nose/Mouth/Throat: (+) nasal congestion, (+) rhinorrhea, (+) sneezing, (+) itchy watery eyes, (+) facial pressure, (+) facial pain Respiratory: (+) chest congestion, (+) cough, (+) mildshortness of breath, (+) chest tightness, no chest pain EXT (-) Leg edema, (-) calf pain BP 172/70 Pulse 75 Temp 36.7 ?C (98.1 ?F) (Oral) Resp 16 Wt 104.4 kg (230 lb 1.9 oz) SpO2 96% BMI 31.21 kg/m? GENERAL: NAD, alert and oriented. SKIN: Unremarkable, no rash or skin lesions. HEAD: Normocephalic. EYES: PERRLA, EOMI, conjunctiva clear. EARS: External ears normal, canals with cerumen, not impacted, TM's normal. NOSE/SINUSES: Nares normal. Septum midline. Maxillary sinuses with TTP ANGELA. OROPHARYNX: Lips, mucosa, and tongue normal, good dentition. No oral lesions noted. uvula midline. no exudate. NECK: Supple, no lymphadenopathy, LUNGS: Clear to auscultation bilaterally, no wheezes/rhonchi/rales. HEART: Regular rate and rhythm, (more content not included)... Normal [facility] Respiratory Cultureon 2024 RESPC Mixed normal respira tory alrry. No Streptococcus pneumoniae, beta-hemolytic Streptococcus or Staphylococcus aureus isolated. Normal [facility] Comment on above: Performed By: #### L 100.0100, M100.1999, M100.2400 #### [facility] [address] [place], [address] Gram Stainon 03-02-2025 GS Acceptable Specimen? Yes (<25 Epithelial cells per/lpf) Gram Stain 2+ Gram positive rods 2+ Gram positive cocci 1+ White Blood Cells Rare Epithelial cells Normal [facility] Comment on above: Performed By: #### L 100.0100, .1999, M1.2400 #### [facility] [address] [place], [address] CBC W/Diff, Automatedon 02-02 Absolute Neut Normal 2.0-7.7 [facility] Comment on above: Result Comment: PT D ECLINED TO HAVE CBCD DONE NOW Performed By: #### L 100.0100, .1999, .2400 #### [facility] [address] [place], [address] HCT Normal 40-54 [facility] Comment on above: Result Comment: PT D ECLINED TO HAVE CBCD DONE NOW Performed By: #### L 100.0100, M100.1999, M1.2400 #### [facility] [address] [place], [address] HGB Normal 13.0-16.5 [facility] Comment on above: Result Comment: PT D ECLINED TO HAVE CBCD DONE NOW Performed By: #### L 100.0100, .1999, .2400 #### [facility] [address] [place], [address] MCH Normal 27.0-32.0 [facility] Comment on above: Result Comment: PT D ECLINED TO HAVE CBCD DONE NOW Performed By: #### L 100.0100, , .2400 #### [facility] [address] [place], [address] MCHC Normal 32-36 [facility] Comment on above: Result Comment: PT D ECLINED TO HAVE CBCD DONE NOW Performed By: #### L 100.0100, , .240 #### [facility] [address] [place], [address] MCV Normal 80-94 [facility] Comment on above: Result Comment: PT D ECLINED TO HAVE CBCD DONE NOW Performed By: #### L 100.0100, , .2400 #### [facility] [address] [place], [address] NEUT% Normal 47-70 [facility] Comment on above: Result Comment: PT D ECLINED TO HAVE CBCD DONE NOW Performed By: #### L 100.0100, , 2400 #### [facility] [address] [place], [address] PLT Normal 150-450 [facility] Comment on above: Result Comment: PT D ECLINED TO HAVE CBCD DONE NOW Performed By: #### L 100.0100, , .2400 #### [facility] [address] [place], [address] RBC Normal 4.6-6.2 [facility] Comment on above: Result Comment: PT D ECLINED TO HAVE CBCD DONE NOW Performed By: #### L 100.0100, , M100.2400 #### [facility] [address] [place], [address] RDW CV Normal 11.6-14.6 [facility] Comment on above: Result Comment: PT D ECLINED TO HAVE CBCD DONE NOW Performed By: #### L 100.0100, M100.1999, M100.2400 #### [facility] [address] [place], [address] RDW SD Normal 35.1-43.9 [facility] Comment on above: Result Comment: PT D ECLINED TO HAVE CBCD DONE NOW Performed By: #### L 100.0100, M100.1999, M100.2400 #### [facility] [address] [place], [address] WBC Normal 4.4-11.0 [facility] Comment on above: Result Comment: PT D ECLINED TO HAVE CBCD DONE NOW Performed By: #### L 100.0100, M100.1999, M100.2400 #### [facility] [address] [place], [address] Gram stainOrdered By: PRERNA Collier on 03-01-2025 Microscopic observation Gram stain Nom (Unsp spec) [facility] Microbial respiratory cultur eOrdered By: PRERNA Collier on 03-01-2025 Microorganism identified Cx Nom (Unsp spec) or Staphylococcus aureus isolated. [facility] Pulmonary Visit Reporton Pulmonary Visit Report [facility] [place] [address] [place] [address] OFFICE VISIT Date of Service: 02/27/25 MR#: [id number] Acct: [id number] Name: DENTON WESLEY Rep #: [id number] : 1950 Provider: Codi Collier NP Age/Sex: 74/M [place] [facility] [place] Status: Signed Assessment and Plan Assessment and Plan (1) Severe persistent asthma: Status: Chronic Qualifiers: Asthma complication type: unspecified Qualified Code(s): J45.50 - Severe persistent asthma, uncomplicated Comment: On Xolair Plan: Asthma is exacerbating today but his NIOX is not elevated. He is not yet back to baseline from recent respiratory illness. I have recommended that he return to consistent use of ICS/LABA therapy and begin oral prednisone burst that has been prescribed accordingly. I have also recommended a sputum for smear and culture. Obtain a CBC with differential prior to next appointment to evaluate for elevated eosinophils and consideration of Dupixent. Use albuterol as needed for worsening respiratory symptoms no additional testing at this time. On follow-up I will consider repeating the PFT. Contact the office with any signs of new or worsening symptoms. (2) Smoking greater than 20 pack years: Status: Chronic Comment: 1.5 ppd repeat LDCT September 2025 Plan: Encourage complete smoking cessation. He remains appropriate for LDCT, previously ordered accordingly for September 2025. (3) Obesity: Status: Chronic Qualifiers: Body mass index: BMI 33.0-33.9 Obesity classification: adult class 1 (BMI 30 - 34.9) Obesity type: due to excess calories Serious obesity comorbidity presence: with serious comorbidity Qualified Code(s): E66.09 - Other obesity due to excess calories; Z68.33 - Body mass index [BMI] 33.0-33.9, adult Plan: Weight loss to be obtained through prudent dieting and daily exercise. Orders: Orders NIOX Today J45.50 - Severe persistent asthma, uncomplicated Culture, Sputum Today J45.50 - Severe persistent asthma, uncomplicated CBC W/Diff, Automated Today J45.50 - Severe persistent asthma, uncomplicated Medications: New prednisone take 4 tabs for three days, then 3 tabs for three days, then 2 tabs for three days, then 1 tab for 3 days 10 mg PO QDAY 30 tabs 0RF J45.50 - Severe persistent asthma, uncomplicated Plan Details Follow Up: 6 Weeks (LMR) HPI HPI Comments Details: This patient presents to the office today for follow-up. He is ambulatory and currently on room air. He has had worsening respiratory symptoms for a little over a week. It started with tight chest and sore throat. He did have a PA and lateral chest x-ray at [facility] which showed some fluid . The patient reports that he used oral prednisone for 3 days and doxycycline for 5 days and has completed this regimen. He is still has wheezing and cough that is productive with yellow sputum. He reports that he has shortness of breath when he is laying down and has to be propped up with a pillow. He reports chest pain and tightness from the coughing and feels raspy . He reports 50% improvement since treatment. Fever of 102 was present on the first day of symptoms. He is not using Advair, but is only using it as needed. It did not help him with recent illness. He denies any medication side effect such as sore throat or thrush. He stopped using the inhaler because he was breathing so much better with Xolair . He has been using his rescue inhaler for the last week. He not using Xolair injections once monthly. His last injection was October. His insurance stopped covering the injectable. He admits that he was a previous smoker quitting 10 years ago, however started smoking again about a year ago. He is currently smoking less than 1/2 pack/day. Low-dose CT lung screen completed on September 21, 2024. No suspicious nodules are seen. Recommendation is continue LDCT in 12 months. Intake Vital Signs 09/28/24 08:07 02/27/25 09:37 Height 6 ft 6 ft Weight: 200 lb BMI 27.1 BP 126/72 H Blood Pressure Location Lt brachial Position Sitting Respiration 20 H Pulse 76 Pulse Source Monitor Temp 97.3 F L Temperature Source Temporal Artery Pulse Oximetry (%) 96 Oxygen Delivery Method room air Intake Visit Reasons: 5 M FU [employer] Representatives Required: No DME Vendor: n/a Accompanied by: Self Is patient in pain?: No Allergies gemfibrozil Adverse Reaction (Severe, Verified 02/27/25 15:26) Severe nausea, flu like sx and fatigue rosuvastatin (From Crestor) Adverse Reaction (Severe, Verified 02/27/25 15:26) severe fatigue, flu like sx simvastatin Adverse Reaction (Severe, Verified 02/27/25 15:26) severe fatigue, flu like sx Medications ???Medication ???Instructions ???Recorded ???Confirmed ???Type aspirin 81 mg tablet,delayed 81 mg PO (more content not included)... [facility] Office Visit (FAMPWS ) -- DENTON WESLEY ([id number]) 1950 M Date Time Provider Department 02/20/25 9:40 AM [facility] During your visit today, we recorded the following information about you: Temperature Pulse Respiration Blood pressure 98.9 degrees 85/minute 18/minute 137/73 Weight 102.4 kg Doris Hernández PA-C 02/20/2025 11:10 AM Signed - Fill the doxycycline prescription and take one tablet twice a day for 5 days; protect your skin with sunscreen or sun-blocking clothing while on this medication. - Take prednisone, two tablets once daily for 4 days, to help reduce airway inflammation. - Use the albuterol rescue inhaler as needed, up to every 4-6 hours (do not use more often than every 4 hours); - Watch your symptoms closely: if you develop worsening shortness of breath, persistent fever, or overall feeling worse before finishing your medications, contact the office right away. - For severe chest pain or severe shortness of breath, go to the nearest emergency department. - If you have not started to feel better or your fever remains after one week, schedule a follow-up appointment. Doris Hernández PA-C 02/21/2025 10:04 AM Signed Recording using [employer] software for draft documentation of the visit was discussed with the patient/authorized home office representative; all questions welcomed and answered. Patient/authorized home office representative agreed to proceed 02/21/2025 Cough and Dyspnea: - Onset of cough on Wednesday, preceded by chest tightness on Wednesday night. No chest pain. - Cough is persistent and difficult to stop once it starts. - Associated with dyspnea and fatigue. - Denies ear pain, calf pain, or leg swelling. - History of asthma; previously managed with Xolair injections, discontinued due to high copay. - Does not use Advair due to perceived worsening of symptoms. - Denies current use of a rescue inhaler. - History of pneumonia in April of last year. - Smoker. Fever: - Fever of 101.8 degreeF last night, reportedly decreased this morning. - Associated with body aches. - Denies any other household members being sick. Diabetes: - Last HbA1c was 7.0%. - Has been on Prednisone before, which reportedly makes him sleepy. Current Outpatient Medications on File Prior to Visit Medication Sig carvedilol (COREG) 25 mg tablet Take 1 tablet by mouth two times a day. apixaban (ELIQUIS) 5 mg tab(s) Take 1 tablet by mouth two times a day. evolocumab (REPATHA SURECLICK) 140 mg/mL pen injector Inject 140 mg subcutaneously every 2 weeks. famotidine (PEPCID) 20 mg tablet Take 1 tablet by mouth at bedtime as needed (Heartburn). losartan (COZAAR) 100 mg tablet Take 1 tablet by mouth once daily. lansoprazole (PREVACID) 30 mg capsule Take 1 capsule by mouth daily before breakfast. 1/2 hr before meal. aspirin, enteric coated (ECOTRIN LOW STRENGTH) 81 mg EC tablet Take 1 tablet by mouth once daily. guaiFENesin (MUCINEX) 600 mg 12 hr tablet Take 1 tablet by mouth twice daily as needed for cold/allergy symptoms. loratadine (CLARITIN) 10 mg tablet Take 1 tablet by mouth once daily. nitroglycerin sublingual (NITROQUICK) 0.4 mg SL tablet Dissolve 0.4 mg under the tongue every 5 minutes as needed. semaglutide (OZEMPIC) 0.25 mg or 0.5 mg (2 mg/3 mL) pen Inject 0.5 mg subcutaneously one time a week. (Patient not taking: Reported on 02/20/2025) glipiZIDE (GLUCOTROL XL) 5 mg 24 hr tablet Take 1 tablet by mouth once daily. amLODIPine (NORVASC) 5 mg tablet Take 1 tablet by mouth once daily. ADVAIR DISKUS 500-50 mcg/dose dsdv INHALE 1 (ONE) puff EVERY 12 HOURS No current facility-administered medications on file prior to visit. PAST MEDICAL HISTORY Diagnosis Date Abdominal aortic aneurysm (AAA) Abdominal pain, other specified site Asthma (HCC) Awareness under anesthesia CAD (coronary artery disease) Cholelithiasis 09/25/2013 Colitis Diabetes mellitus (HCC) type 2 diet controlled Elevated prostate specific antigen (PSA) Esophageal reflux Gastroesophageal reflux Hypertension Impotence of organic origin Impotence Nocturia SUJEY (obstructive sleep apnea) Post-void dribbling Prostate cancer (HCC) RUQ abdominal pain 09/25/2013 Allergies: Gemfibrozil Intolerance Rosuvastatin Intolerance Simvastatin Intolerance Imdur [Isosorbide] Intolerance Comment:Headaches, upset stomach, fatigue Penicillins Intolerance Comment:passed out and felt like I had the flu Pt states he's no longer allergic to this, he's taken tests w/out issues. Pravastatin Myalgia Constitutional: (+) fever, (+) fatigue, (+) myalgia Ears/Nose/Mouth/Throat: (+) congestion, (-) ear pain Respiratory: (+) cough, (+) shortness of breath, (+) chest tightness Musculoskeletal: (-) calf pain, (-) leg swelling BP 137/73 Pulse 85 Temp 37.2 ?C (98.9 ?F) (Oral) Resp 18 Wt 102.4 kg ( (more content not included)... Normal [facility] XR CHEST 2V FRONTAL/LATon XR CHEST 2V FRONTAL/LAT * * *Final Report* * * DATE OF EXAM: Feb 20 2025 10:54AM WOX [id number] - XR CHEST 2V FRONTAL/LAT / PROCEDURE REASON: Acute cough * * * * Physician Interpretation * * * * EXAMINATION: CHEST RADIOGRAPH (2 VIEW FRONTAL and LATERAL) CLINICAL HISTORY: Acute cough MQ: [id number] EXAM DATE/TIME: 02/20/2025 10:54 AM COMPARISON: Chest x-ray on 05/19/2024 RESULT: Lines, tubes, and devices: None. Lungs and pleura: Small atelectasis visualized in the lingula. The remaining lungs are clear. No lung mass. No pleural effusion. No pneumothorax. Cardiomediastinal silhouette: Normal cardiomediastinal silhouette. A coronary stent is noted. Bones and soft tissues: Status post median sternotomy. IMPRESSION: Small atelectasis in the lingula. 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 Transcribe Date/Time: Feb 20 2025 10:58A Dictated by : KRISTIN CHO MD This examination was interpreted and the report reviewed and electronically signed by: KRISTIN CHO MD on Feb 20 2025 11:00AM EST [id number] Normal [facility] CNOVon 12-15-2024 CN Office Visit (CARDMM ) -- DENTON WESLEY ([id number]) 1950 M Date Time Provider Department 12/15/24 2:30 PM JERE RUST During your visit today, we recorded the following information about you: Pulse Blood pressure Weight Height 86/minute 142/78 104.8 kg 1.829 m Jere Rust, [facility] 12/15/2024 3:02 PM Signed [facility] [place] Vickie Soto Department of Cardiovascular Medicine SECTION OF CLINICAL CARDIOLOGY OUTPATIENT VISIT DATE December 15, 2024 OUTPATIENT VISIT TYPE ESTABLISHED PRIMARY CARE PHYSICIAN: Cali Cordero [address] [id number] CHIEF COMPLAINT: Review testing HISTORY OF PRESENT ILLNESS: Mr. Wesley is a 74 year old male with history of CAD, S/P PCI (2016), S/P CABG x2 (10/16/22), paroxysmal atrial fibrillation, HTN, HLD, AAA, and T2DM who presents today for a cardiovascular medicine follow-up visit. He was last seen in the office on 09-04-24 at which time he noted a dull aching/burning chest discomfort radiating to his neck usually occurring with rest although a few times occurring with exertion which alleviated after 30 minutes. He felt this was similar to prior angina. His blood pressure was noted to be uncontrolled in the office for which she was started on amlodipine 5 mg daily. Echocardiogram and nuclear stress test were recommended for further evaluation. Plan was to follow-up after testing to review results. Echocardiogram showed EF 64%, grade I LVDD, normal RV size with low normal RV systolic function, dilated RA, and no significant valvular disease similar to prior. Exercise nuclear stress test was negative for ischemia at 91% MPHR with 6.1 METS achieved. He had no significant arrhythmias or EKG changes during testing. Since his last office visit his prior chest discomfort has resolved. He was started on Pepcid by his PCP which he feels may have helped. He additionally has been started on Ozempic which he feels is taking him some time to adjust to. He had constipation at first with this which has since resolved. He additionally has been having some lightheaded episodes since starting Ozempic but denies any presyncope or syncope. He notes worsening palpitations over the last few weeks occurring nearly daily. These last for a few seconds up to 15 minutes before self resolving. He describes them as a skipped beat followed by a rapid heartbeat. No associated symptoms with this. The lightheadedness does not coincide with the palpitations. He unfortunately was unable to tolerate the amlodipine as it made him feel like he had the flu, thus he discontinued it. He checked his blood pressure with a wrist cuff this morning and it was 170/104. He drinks a few cups of coffee every day. He has cut out soda to try and help with his diabetes. He was previously drinking multiple cans of Coca-Cola a day. He is not participating in any daily aerobic exercise. He denies any shortness of breath, lower extreme edema, orthopnea, or PND. Subjective PAST MEDICAL HISTORY Diagnosis Date Abdominal aortic aneurysm (AAA) (HCC) Abdominal pain, other specified site Asthma Awareness under anesthesia CAD (coronary artery disease) Cholelithiasis 09/25/2013 Colitis Diabetes mellitus (HCC) type 2 diet controlled Elevated prostate specific antigen (PSA) Esophageal reflux Gastroesophageal reflux Hypertension Impotence of organic origin Impotence Nocturia SUJEY (obstructive sleep apnea) Post-void dribbling Prostate cancer (HCC) RUQ abdominal pain 09/25/2013 PAST SURGICAL HISTORY Procedure Laterality Date CABG (2) VEIN GRAFTS AND ARTERIAL GRAFT(S 10/16/2022 COLONOSCOPY FLX DX W/COLLJ SPEC WHEN PFRMD Colonoscopy Dr. Ferreira ESOPHAGOGASTRODUODENOSCOPY TRANSORAL DIAGNOSTIC EGD Dr. Ferreira LAPAROSCOPY SURG CHOLECYSTECTOMY 09/25/2013 PAST SURGICAL HISTORY OF IANDD left hand PAST SURGICAL HISTORY OF Removal cyst on back PROSTATE BIOPSY GUKI 07/14/2022 STENT PLACEMENT 4 Stents Social History Tobacco Use Smoking status: Every Day Current packs/day: 0.25 Average packs/day: 0.3 packs/day for 1.3 years (0.3 ttl pk-yrs) Types: Cigarettes Start date: 08/25/2023 Smokeless tobacco: Never Tobacco comments: Resumed last week after the of his spouse Vaping Use Vaping status: Never Used Substance Use Topics Alcohol use: Yes Comment: 1 beer in the evening occasionally Drug use: No FAMILY HISTORY Problem Relation Age of Onset Colon Cancer Mother Heart Mother Ovarian cancer Mother Prostate Cancer Brother Stroke Brother Emphysema Father ALLERGIES: ALLERGIES Allergen Reactions Gemfibrozil Intolerance Rosuvastatin Intolerance Simvastatin Intolerance Imdur [Isosorbide] Intolerance Headaches, upset stomach, fatigue Penicillin (more content not included)... Normal [facility] CNOVon 11-27-2024 CNOV Office Visit (URCANT ) -- LUPILLODENTON Fisher ([id number]) 1950 M Date Time Provider Department 11/27/24 10:45 AM JANIA POZO During your visit today, we recorded the following information about you: Blood pressure Weight Height 149/93 104.3 kg 1.803 m Jania Pozo MD 11/27/2024 11:25 AM Signed [facility] ESTABLISHED PATIENT FOLLOW-UP NOTE PATIENT: Denton S Lupillo (74 year old) PCP: Cali Cordero MD -- SUMMARY: Former patient of Dr. Tolbert. #Prostate cancer. cT1c, GG3 (2/, 55-60%) and GG2 (3/, 40-45%), all on left, dx's in 07/2022 for PSA=4.62; 78.8 cc, PSAD=0.06. NCCN unfavorable intermediate risk. Decipher=0.92 (high risk). Initial CT pelvis in 07/2022 and BS in 12/2022 were negative for mets. Tx was delayed due CAD s/p CABG x2 on 10/16/22, complicated by postop retention. PSMA PET-06/2023 negative for mets. Tx'd with IMRT +ADT. PSA=7.4(06/2023)... 0.04 (01/2024). Assessment AND Plan History of prostate cancer Chronic, unstable. Patient has been lost to follow up since 07/2023 when he received his Lupron injection. He has since completed IMRT. His initial PSA after completing treatment showed an appropriate response. Recent PSA=0.07, which is low and stable. NEREIDA. Reassurance provided. I discussed the risk of cancer recurrence and need for long-term surveillance. Orders: PROSTATE-SPECIFIC ANTIGEN DIAGNOSTIC; Future Visit complexity inherent to evaluation and management associated with medical care services that serve as the continuing focal point for all needed health care services and/or with medical care services that are part of ongoing care related to a patient?s single, serious condition or a complex condition. 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 -- CHIEF COMPLAINT: Patient presents with: History of prostate cancer HISTORY OF PRESENT ILLNESS: Prior notes were reviewed. The patient reports doing well. Good urine stream. He complains of urinary frequency. He does have diabetes. MANPREET/AUASS FORMS No question data found. REVIEW OF SYSTEMS: Noncontributory ALLERGIES: ALLERGIES Allergen Reactions Gemfibrozil Intolerance Rosuvastatin Intolerance Simvastatin Intolerance Imdur [Isosorbide] Intolerance Headaches, upset stomach, fatigue Penicillins Intolerance passed out and felt like I had the flu Pt states he's no longer allergic to this, he's taken tests w/out issues. Pravastatin Myalgia MEDICATIONS: semaglutide (OZEMPIC) 0.25 mg or 0.5 mg (2 mg/3 mL) pen Inject 0.5 mg subcutaneously one time a week. glipiZIDE (GLUCOTROL XL) 5 mg 24 hr tablet Take 1 tablet by mouth once daily. evolocumab (REPATHA SURECLICK) 140 mg/mL pen injector Inject 140 mg subcutaneously every 2 weeks. famotidine (PEPCID) 20 mg tablet Take 1 tablet by mouth at bedtime as needed (Heartburn). losartan (COZAAR) 100 mg tablet Take 1 tablet by mouth once daily. lansoprazole (PREVACID) 30 mg capsule Take 1 capsule by mouth daily before breakfast. 1/2 hr before meal. aspirin, enteric coated (ECOTRIN LOW STRENGTH) 81 mg EC tablet Take 1 tablet by mouth once daily. guaiFENesin (MUCINEX) 600 mg 12 hr tablet Take 1 tablet by mouth twice daily as needed for cold/allergy symptoms. loratadine (CLARITIN) 10 mg tablet Take 1 tablet by mouth once daily. nitroglycerin sublingual (NITROQUICK) 0.4 mg SL tablet Dissolve 0.4 mg under the tongue every 5 minutes as needed. ADVAIR DISKUS 500-50 mcg/dose dsdv INHALE 1 (ONE) puff EVERY 12 HOURS amLODIPine (NORVASC) 5 mg tablet Take 1 tablet by mouth once daily. PAST HISTORY: PAST MEDICAL HISTORY Diagnosis Date Abdominal aortic aneurysm (AAA) (HCC) Abdominal pain, other specified site Asthma Awareness under anesthesia CAD (coronary artery disease) Cholelithiasis 09/25/2013 Colitis Diabetes mellitus (HCC) type 2 diet controlled Elevated prostate specific antigen (PSA) Esophageal reflux Gastroesophageal reflux Hypertension Impotence of organic origin Impotence Nocturia SUJEY (obstructive sleep apnea) Post-void dribbling Prostate cancer (HCC) RUQ abdominal pain 09/25/2013 PAST SURGICAL HISTORY Procedure Laterality Date CABG (2) VEIN GRAFTS AND ARTERIAL GRAFT(S 10/16/2022 COLONOSCOPY FLX DX W/COLLJ SPEC WHEN PFRMD Colonoscopy Dr. Ferreira ESOPHAGOGASTRODUODENOSCOPY TRANSORAL DIAGNOSTIC EGD Dr. Ferreira LAPAROSCOPY SURG CHOLECYSTECTOMY 09/25/2013 PAST SURGICAL HISTORY OF IANDD left hand PAST SURGICAL HISTORY OF Removal cyst on back PROSTATE BIOPSY DAVIDKI 10 (more content not included)... Normal [facility] PSA SerPl-mCncon 11-24-2024 Prostate specific Ag [Mass/Vol] 0.07 ng/mL Normal <2.60 [facility] Comment on above: Order Comment: Speci men Type: BLOOD SPECIMENOrdering Facility: [facility] Address: [address] [place], [place] [address] Result Comment: Tota l PSA test methodology used is the Electrochemiluminescence Immunoassay by [employer]. Total PSA values by differing methodologies cannot be interchanged. Performed By: #### 2 857-1 ####[facility] [id number] [address] [place] J Dev 11-20-2024 CNPN Telephone (URCANT) -- DENTON WESLEY ([id number]) 1950 M Date Time Provider Department 11/20/24 JANIA POZO During your visit today, we recorded the following information about you: Jania Pozo MD 11/20/2024 10:51 AM Signed ----- Message from Yvonne Riley sent at 11/17/2024 8:46 PM EST ----- Regarding: Test Cancellation Darnell, марина is Yvonne in [facility]. The Prostate-Specific Antigen Diagnostic on this patient has been cancelled due to insufficient quantity. If you would like to proceed with this test, please place new orders and contact the patient for recollection. Thank you. Jania Pozo MD 11/20/2024 10:52 AM Signed Please have the patient get another PSA. They did not have enough blood to run the first one. Thank you, Manuela Doyle OCCA 11/20/2024 1:23 PM Signed Pt notified. DEBBIE Wolfe Allergies As of Date: 11/20/2024 Noted Allergy Reaction GEMFIBROZIL 09/25/2019 5 - Intolerance ROSUVASTATIN 09/25/2019 5 - Intolerance SIMVASTATIN 09/25/2019 5 - Intolerance IMDUR (ISOSORBIDE) 03/05/2022 5 - Intolerance Comments: Headaches, upset stomach, fatigue PENICILLINS 02/10/2007 5 - Intolerance Comments: passed out and felt like I had the flu Pt states he's no longer allergic to this, he's taken tests w/out issues. PRAVASTATIN 08/07/2021 17 - Myalgia Date Reviewed: 11/16/2024 Reviewed by: Jhon Sheffield LPN - Fully Assessed Reason for Visit: Orders [681] Primary Visit Diagnosis:Prostate cancer (HCC) [C61] Order(s):PROSTATE-SPECIFIC ANTIGEN DIAGNOSTIC [SQPSA] Order #: [id number] FUTURE Prescriptions as of 11/20/2024 - cefADROxil (DURICEF) 500 mg capsule Take 1 capsule by mouth two times a day for 7 days. - evolocumab (REPATHA SURECLICK) 140 mg/mL pen injector Inject 140 mg subcutaneously every 2 weeks. - semaglutide (OZEMPIC) 0.25 mg or 0.5 mg (2 mg/3 mL) pen Inject 0.25 mg subcutaneously one time a week. - famotidine (PEPCID) 20 mg tablet Take 1 tablet by mouth at bedtime as needed (Heartburn). - amLODIPine (NORVASC) 5 mg tablet Take 1 tablet by mouth once daily. - losartan (COZAAR) 100 mg tablet Take 1 tablet by mouth once daily. - lansoprazole (PREVACID) 30 mg capsule Take 1 capsule by mouth daily before breakfast. 1/2 hr before meal. - apixaban (ELIQUIS) 5 mg tab(s) Take 1 tablet by mouth two times a day. - aspirin, enteric coated (ECOTRIN LOW STRENGTH) 81 mg EC tablet Take 1 tablet by mouth once daily. - guaiFENesin (MUCINEX) 600 mg 12 hr tablet Take 1 tablet by mouth twice daily as needed for cold/allergy symptoms. - loratadine (CLARITIN) 10 mg tablet Take 1 tablet by mouth once daily. - nitroglycerin sublingual (NITROQUICK) 0.4 mg SL tablet Dissolve 0.4 mg under the tongue every 5 minutes as needed. - ADVAIR DISKUS 500-50 mcg/dose dsdv INHALE 1 (ONE) puff EVERY 12 HOURS Problem List As Of Date 11/20/2024 Noted Resolved SUBCUTANEOUS NODULES [R22.9] 02/21/2007 Dark urine [R82.998] 10/05/2013 Abdominal pain, other specified site [R10.9] Elevated glucose [R73.09] 01/29/2020 Coronary artery disease of nome artery of kevin*01/29/2020 Mixed hyperlipidemia [E78.2] 01/29/2020 Essential hypertension [I10] 01/29/2020 S/P right coronary artery (RCA) stent placement*06/24/2021 Pure hypercholesterolemia [E78.00] 08/13/2021 Elevated PSA [R97.20] 03/11/2022 Stable angina (HCC) [I20.89] 06/10/2022 Dyspnea on exertion [R06.09] 06/10/2022 S/P CABG x 2 [Z95.1] 10/16/2022 Type 2 diabetes mellitus without complication, *12/11/2022 Prostate cancer (HCC) [C61] 07/30/2023 Postoperative atrial fibrillation (HCC) [I97.89*11/25/2023 Bilateral hip pain [M25.551, M25.552] 02/08/2024 History of colonic polyps [Z86.0100] 07/19/2024 Encounter Status:Closed by JANIA POZO on 11/20/24 [facility] Comprehensive metabolic 2000 panelon 11-17-2024 Albumin [Mass/Vol] 4.2 g/dL Normal 3.9-4.9 [facility] Comment on above: Order Comment: Speci men Type: BLOOD SPECIMEN Ordering Facility: [facility] Address: [address] [place], [place] [address] Performed By: #### 5 5454-3 #### [facility] CLIA [id number] [address] [place], [place] [id number] [place] J ALP [Catalytic activity/Vol] 90 U/L Normal 38-113 [facility] Comment on above: Order Comment: Speci men Type: BLOOD SPECIMEN Ordering Facility: [facility] Address: [address] [place] [address] Performed By: #### 5 5454-3 #### [facility] CLIA [id number] [address] [place] [address] [place] J ALT [Catalytic activity/Vol] 44 U/L Normal 10-54 [facility] Comment on above: Order Comment: Speci men Type: BLOOD SPECIMEN Ordering Facility: [facility] Address: [address] [place] [address] Performed By: #### 5 5454-3 #### [facility] CLIA [id number] [address] [place] [address] [place] J Anion gap [Moles/Vol] 14 mmol/L Normal 8-15 [facility] Comment on above: Order Comment: Speci men Type: BLOOD SPECIMEN Ordering Facility: [facility] Address: [address] [place] [address] Performed By: #### 5 5454-3 #### [facility] CLIA [id number] [address] [place], [place] [address] [place] J AST [Catalytic activity/Vol] 32 U/L Normal 14-40 [facility] Comment on above: Order Comment: Speci men Type: BLOOD SPECIMEN Ordering Facility: [facility] Address: [address] [place], [place] [address] Performed By: #### 5 5454-3 #### [facility] CLIA [id number] [address] [place], [place] [address] [place] J Bilirubin [Mass/Vol] 0.3 mg/dL Normal 0.2-1.3 [facility] Comment on above: Order Comment: Speci men Type: BLOOD SPECIMEN Ordering Facility: [facility] Address: [address] [place] [address] Performed By: #### 5 5454-3 #### [facility] CLIA [id number] [address] [place] [address] [place] J Calcium [Mass/Vol] 9.7 mg/dL Normal 8.5-10.2 [facility] Comment on above: Order Comment: Speci men Type: BLOOD SPECIMEN Ordering Facility: [facility] Address: [address] [place] [address] Performed By: #### 5 5454-3 #### [facility] CLIA [id number] [address] [place] [address] [place] J Chloride [Moles/Vol] 103 mmol/L Normal 98-107 [facility] Comment on above: Order Comment: Speci men Type: BLOOD SPECIMEN Ordering Facility: [facility] Address: [address] [place] [address] Performed By: #### 5 5454-3 #### [facility] CLIA [id number] [address] [place] [address] [place] J CO2 [Moles/Vol] 21 mmol/L Low 22-30 [facility] Comment on above: Order Comment: Speci men Type: BLOOD SPECIMEN Ordering Facility: [facility] Address: [address] [place], [place] [address] Performed By: #### 5 5454-3 #### [facility] CLIA [id number] [address] [place], [place] [address] [place] J Creatinine [Mass/Vol] 0.67 mg/dL Low 0.73-1.22 [facility] Comment on above: Order Comment: Speci men Type: BLOOD SPECIMEN Ordering Facility: [facility] Address: [address] [place] [address] Performed By: #### 5 5454-3 #### [facility] CLIA [id number] [address] [place] [address] [place] J Creatinine and Glomerular filtration rate.predicted panel (S/P/Bld) 98 mL/min/1.73m??? Normal >=60 [facility] Comment on above: Order Comment: Rashaun aranda Type: BLOOD SPECIMEN Ordering Facility: [facility] Address: [address] [place] [address] Result Comment: Pat mated Glomerular Filtration Rate (eGFR) is calculated using the 2020 CKD-EPI creatinine equation. This equation utilizes serum creatinine, sex, and age as parameters. The creatinine assay has traceable calibration to isotope dilution-mass spectrometry. Refer to KDIGO guidelines for clinical interpretation. In patients with unstable renal function, e.g. those with acute kidney injury, the eGFR may not accurately reflect actual GFR. Performed By: #### 5 5454-3 #### [facility] CLIA [id number] [address] [place] [address] [place] J Glucose [Mass/Vol] 161 mg/dL High 74-99 [facility] Comment on above: Order Comment: Rashaun aranda Type: BLOOD SPECIMEN Ordering Facility: [facility] Address: [address] [place] [address] Result Comment: The [place] Diabetes Association (ADA) provides guidance for cutoff values for fasting glucose and random glucose. The ADA defines fasting as no caloric intake for at least 8 hours. Fasting plasma glucose results between 100 to 125 mg/dL indicate increased risk for diabetes (prediabetes). Fasting plasma glucose results greater than or equal to 126 mg/dL meet the criteria for diagnosis of diabetes. In the absence of unequivocal hyperglycemia, results should be confirmed by repeat testing. In a patient with classic symptoms of hyperglycemia or hyperglycemic crisis, random plasma glucose results greater than or equal to 200 mg/dL meet the criteria for diagnosis of diabetes. Reference: Standards of Medical Care in Diabetes 2016, [place] Diabetes Association. Diabetes Care. 2016.39(Suppl 1). Performed By: #### 5 5454-3 #### [facility] CLIA [id number] [address] [place] [address] [place] J Potassium [Moles/Vol] 4.1 mmol/L Normal 3.7-5.1 [facility] Comment on above: Order Comment: Speci men Type: BLOOD SPECIMEN Ordering Facility: [facility] Address: [address] [place] [address] Performed By: #### 5 5454-3 #### [facility] CLIA [id number] [address] [place] [address] [place] J Protein [Mass/Vol] 7.6 g/dL Normal 6.3-8.0 [facility] Comment on above: Order Comment: Speci men Type: BLOOD SPECIMEN Ordering Facility: [facility] Address: [address] [place] [address] Performed By: #### 5 5454-3 #### [facility] CLIA [id number] [address] [place] [address] [place] J Sodium [Moles/Vol] 138 mmol/L Normal 136-144 [facility] Comment on above: Order Comment: Speci men Type: BLOOD SPECIMEN Ordering Facility: [facility] Address: [address] [place] [address] Performed By: #### 5 5454-3 #### [facility] CLIA [id number] [address] [place], [place] [address] [place] J Urea nitrogen [Mass/Vol] 16 mg/dL Normal 9-24 [facility] Comment on above: Order Comment: Speci men Type: BLOOD SPECIMEN Ordering Facility: [facility] Address: [address] [place] [address] Performed By: #### 5 5454-3 #### [facility] CLIA [id number] [address] [place], [place] [address] [place] J HbA1c (Bld)on 11-17-2024 Average glucose Estimated from glycated hemoglobin (Bld) [Mass/Vol] 183 mg/dL Normal [facility] Comment on above: Order Comment: Rashaun aranda Type: BLOOD SPECIMEN Ordering Facility: [facility] Address: [address] [place] [address] Result Comment: eAG: (Estimated average glucose) is a calculated value from HgbA1c and is home office representative of the average blood glucose level in the last 2-3 month period. Performed By: #### 5 5454-3 #### [facility] CLIA [id number] [address] [place] [address] [place] J HbA1c (Bld) [Mass fraction] 8.0 % High 4.3-5.6 [facility] Comment on above: Order Comment: Rashaun aranda Type: BLOOD SPECIMEN Ordering Facility: [facility] Address: [address] [place] [address] Result Comment: [place] Diabetes Association guidelines indicate that patients with HgbA1c in the range 5.7-6.4% are at increased risk for development of diabetes, and intervention by lifestyle modification may be beneficial. HgbA1c greater or equal to 6.5% is considered diagnostic of diabetes. Performed By: #### 5 5454-3 #### [facility] CLIA [id number] [address] [place] [address] OF [facility] CNOVon 11-16-2024 [facility] DENTON WESLEY ([id number]) 1950 M Date Time Provider Department 11/16/24 1:20 PM [facility] During your visit today, we recorded the following information about you: Temperature Pulse Respiration Blood pressure 99.1 degrees 83/minute 18/minute 138/80 Meghann Strickland PA-C 11/16/2024 1:30 PM Signed Chief Complaint Patient presents with: Sinus Problem HPI Denton Wesley is a 74 year old male who presents here today for Above Complaints.. Patient reports that last week he had chills, body aches, fever and left work early. Symptoms continued over the weekend. By Wednesday he did feel better. Then on Wednesday, started to feel sinus pressure and sore throat. Low engery level. No fever. +fatigue. Neg covid at home test. Past medical history, appointments, medications, allergies reviewed. Previous Medical History PAST MEDICAL HISTORY Diagnosis Date Abdominal pain, other specified site Asthma Awareness under anesthesia CAD (coronary artery disease) Cholelithiasis 09/25/2013 Colitis Diabetes mellitus (HCC) type 2 diet controlled Elevated prostate specific antigen (PSA) Esophageal reflux Gastroesophageal reflux Hypertension Impotence of organic origin Impotence Nocturia SUJEY (obstructive sleep apnea) Post-void dribbling Prostate cancer (HCC) RUQ abdominal pain 09/25/2013 Previous Surgical History PAST SURGICAL HISTORY Procedure Laterality Date CABG (2) VEIN GRAFTS AND ARTERIAL GRAFT(S 10/16/2022 COLONOSCOPY FLX DX W/COLLJ SPEC WHEN PFRMD Colonoscopy Dr. Ferreira ESOPHAGOGASTRODUODENOSCOPY TRANSORAL DIAGNOSTIC EGD Dr. Ferreira LAPAROSCOPY SURG CHOLECYSTECTOMY 09/25/2013 PAST SURGICAL HISTORY OF IANDD left hand PAST SURGICAL HISTORY OF Removal cyst on back PROSTATE BIOPSY GUKI 07/14/2022 STENT PLACEMENT 4 Stents Family History FAMILY HISTORY Problem Relation Age of Onset Colon Cancer Mother Heart Mother Ovarian cancer Mother Prostate Cancer Brother Stroke Brother Emphysema Father Patient Allergies ALLERGIES Allergen Reactions Gemfibrozil Intolerance Rosuvastatin Intolerance Simvastatin Intolerance Imdur [Isosorbide] Intolerance Headaches, upset stomach, fatigue Penicillins Intolerance passed out and felt like I had the flu Pt states he's no longer allergic to this, he's taken tests w/out issues. Pravastatin Myalgia Current Medications Current Outpatient Medications on File Prior to Visit Medication Sig evolocumab (REPATHA SURECLICK) 140 mg/mL pen injector Inject 140 mg subcutaneously every 2 weeks. semaglutide (OZEMPIC) 0.25 mg or 0.5 mg (2 mg/3 mL) pen Inject 0.25 mg subcutaneously one time a week. famotidine (PEPCID) 20 mg tablet Take 1 tablet by mouth at bedtime as needed (Heartburn). amLODIPine (NORVASC) 5 mg tablet Take 1 tablet by mouth once daily. losartan (COZAAR) 100 mg tablet Take 1 tablet by mouth once daily. multivit-min/folic/vit K/lycop (MEN'S MULTIVITAMIN ORAL) Take by mouth. (Patient not taking: Reported on 11/16/2024) docosahexaenoic acid/epa (FISH OIL ORAL) Take by mouth. lansoprazole (PREVACID) 30 mg capsule Take 1 capsule by mouth daily before breakfast. 1/2 hr before meal. apixaban (ELIQUIS) 5 mg tab(s) Take 1 tablet by mouth two times a day. aspirin, enteric coated (ECOTRIN LOW STRENGTH) 81 mg EC tablet Take 1 tablet by mouth once daily. guaiFENesin (MUCINEX) 600 mg 12 hr tablet Take 1 tablet by mouth twice daily as needed for cold/allergy symptoms. loratadine (CLARITIN) 10 mg tablet Take 1 tablet by mouth once daily. nitroglycerin sublingual (NITROQUICK) 0.4 mg SL tablet Dissolve 0.4 mg under the tongue every 5 minutes as needed. ADVAIR DISKUS 500-50 mcg/dose dsdv INHALE 1 (ONE) puff EVERY 12 HOURS No current facility-administered medications on file prior to visit. Social History Social History Tobacco Use Smoking status: Every Day Current packs/day: 0.25 Average packs/day: 0.3 packs/day for 1.2 years (0.3 ttl pk-yrs) Types: Cigarettes Start date: 08/25/2023 Smokeless tobacco: Never Tobacco comments: Resumed last week after the of his spouse Vaping Use Vaping status: Never Used Substance Use Topics Alcohol use: Yes Comment: 1 beer in the evening occasionally Drug use: No Review of Symptoms REVIEW OF SYSTEMS See hpi EXAM: BP 138/80 (BP Site: Left Arm, BP Position: Sitting, BP Cuff Size: Large Adult) Pulse 83 Temp 37.3 ?C (99.1 ?F) Resp 18 SpO2 98% General Appearance: Well appearing, alert, in no acute distress, well-hydrated, well nourished.. Eyes: Anicteric sclera. Pupils are equally round and reactive to light. Extraocular movements are intact. . Ears: mild wax on left. . Nose/Sinuses: +sinus pressure to palp.. Oropharynx: Positive findings: mild oropharyngeal erythema. Neck: Supple, no adenopat (more content not included)... Normal [facility] Office Visit Reporton 2024 Office Visit Report [facility] [address] [address] OFFICE VISIT Date of Service: 10/27/24 MR#: [id number] Acct: [id number] Patient: DENTON WESLEY Rep #: [id number] : 1950 Provider: LENNOX Velazquez Age/Sex: 74/M [facility] [facility] Status: Signed Intake Vital Signs 09/28/24 08:07 10/27/24 14:33 Height 6 ft 6 ft Weight: 232 lb 8 oz BMI 31.5 BP 147/81 H 190/82 H Blood Pressure Location Lt brachial Rt brachial Position Sitting Sitting Respiration 16 18 Pulse 76 74 Pulse Source Monitor Monitor Temp 97.3 F L 96.6 F L Temp Source Temporal Pulse Oximetry (%) 97 Oxygen Delivery Method room air room air Intake Visit Reasons: Asthma - severe persistent asthma [employer] Representatives Required: No Accompanied by: Self Is patient in pain?: No Allergies gemfibrozil Adverse Reaction (Severe, Verified 09/28/24 14:23) Severe nausea, flu like sx and fatigue rosuvastatin (From Crestor) Adverse Reaction (Severe, Verified 09/28/24 14:23) severe fatigue, flu like sx simvastatin Adverse Reaction (Severe, Verified 09/28/24 14:23) severe fatigue, flu like sx Have you fallen in the past year?: No Office Procedures Asthma Injection Procedure: Details:: Patient presented for [] injection. Patient tolerated treatment well. The patient was monitored for [] minutes after treatment. Patient shows no signs of adverse reaction. Reviewed signs and symptoms of reaction. Patient instructed to call the office with new or worsening symptoms. Patient advised to report to the emergency department during after hours if necessary. Patient departed from the office with no signs of distress. Injections Is this a patient provided medication?: Yes Office Meds omalizumab 150 mg subcutaneous solution Performing Provider: Kate Velazquez NP, AARONC Performing Location: [facility] Administered by: Trudy Arteaga on 10/27/24 14:30 Dose Route Admin Location Dispensed Lot Number Expiration Date [place] Man ufacturer 300 mg subcut right arm 1 ea [id number] 01/02/25 04319-453-35 [employer]. Assessment and Plan Assessment and Plan Orders: Orders Xolair Injection Today J45.50 - Severe persistent asthma, uncomplicated Medications: New omalizumab 300 mg subcut ONCE 1 ea 0RF J45.50 - Severe persistent asthma, uncomplicated Clinical Quality Measures Falls Risk Screening/Assistive Devices Have you fallen in the past year?: No 10/27/24 1530 Date Kate Long Signature: Date (if applicable) CC: Normal [facility] Pulmonary Visit Reporton Pulmonary Visit Report [facility] of [address] [place] [address] OFFICE VISIT Date of Service: 09/28/24 MR#: [id number] Acct: [id number] Name: DENTON WESLEY Rep #: [id number] : 1950 Provider: LENNOX Velazquez Age/Sex: 74/M [facility] [facility] Status: Signed Assessment and Plan Assessment and Plan (1) Smoking greater than 20 pack years: Status: Chronic Comment: 3/ ppd repeat LDCT September 2025 Plan: Encourage complete smoking cessation. He is appropriate for LDCT, ordered accordingly for September 2025. (2) Severe persistent asthma: Status: Chronic Qualifiers: Asthma complication type: unspecified Qualified Code(s): J45.50 - Severe persistent asthma, uncomplicated Comment: On Xolair Plan: Stable, no signs of exacerbation of asthma today. No change in maintenance medications, continue Advair and Xolair. No additional testing at this time. Contact the office with any signs of new or worsening symptoms. Follow-up in the office in 5 months. The patient will typically be seen twice yearly for follow-up of his severe asthma. (3) Obesity: Status: Chronic Qualifiers: Body mass index: BMI 33.0-33.9 Obesity classification: adult class 1 (BMI 30 - 34.9) Obesity type: due to excess calories Serious obesity comorbidity presence: with serious comorbidity Qualified Code(s): E66.09 - Other obesity due to excess calories; Z68.33 - Body mass index [BMI] 33.0-33.9, adult Plan: Complicates exam, plan, care and prognosis. Continue to encourage weight loss. Orders: Orders Xolair Injection Today J45.50 - Severe persistent asthma, uncomplicated Low Dose CT Lung Screening 09/03/25 F17.200 - Nicotine dependence, unspecified, uncomplicated, F17.210 - Nicotine dependence, cigarettes, uncomplicated Plan Details Follow Up: 5 Months ([facility]) HPI 1 M FU/Injection Chief Complaint: Test results HPI Comments Details: This patient presents to the office today to discuss test results. He is ambulatory and currently on room air. He has not been seen in the ED or urgent care for any respiratory illness. He has not required any antibiotics or prednisone for any breathing problems. He is compliant with use of Advair, but is only using it as needed. He does report rinsing his mouth out after each use. He denies any medication side effect such as sore throat or thrush. He has not needed to use his albuterol rescue inhaler. He is compliant with the use of Xolair injections once monthly. He denies any shortness of breath. He reports a daily cough productive of clear to white-colored sputum but denies any hemoptysis. He reports some occasional wheezing, when lying down. He denies any chest tightness, chest pain or palpitations. He also denies any fever, chills or body aches. He admits that he was a previous smoker quitting 10 years ago, however started smoking again about a year ago. He is currently smoking between 1/2 to 1 pack/day, on average 15 cigarettes/day. Test results personally reviewed with the patient: Low-dose CT lung screen completed on September 21, 2024. No suspicious nodules are seen. Recommendation is continue LDCT in 12 months. Intake Vital Signs 09/01/24 07:27 09/28/24 08:07 Height 6 ft 6 ft Weight: 232 lb 8 oz BMI 31.5 BP 147/81 H Blood Pressure Location Lt brachial Position Sitting Respiration 16 Pulse 76 Pulse Source Monitor Temp 97.3 F L Temperature Source Temporal Artery Pulse Oximetry (%) 97 Oxygen Delivery Method room air Intake Visit Reasons: 1 M FU/Injection Chief Complaint: diabetes Accompanied by: Self Allergies gemfibrozil Adverse Reaction (Severe, Verified 09/28/24 14:23) Severe nausea, flu like sx and fatigue rosuvastatin (From Crestor) Adverse Reaction (Severe, Verified 09/28/24 14:23) severe fatigue, flu like sx simvastatin Adverse Reaction (Severe, Verified 09/28/24 14:23) severe fatigue, flu like sx Medications ???Medication ???Instructions ???Recorded ???Confirmed ???Type aspirin 81 mg tablet,delayed 81 mg PO DAILY@0800 11/03/16 09/28/24 History release albuterol sulfate 90 mcg/actuation 2 puff inhalation Q4H PRN 09/22/19 09/28/24 Rx aerosol inhaler (Ventolin HFA) shortness of breath or wheezing #18 grams guaifenesin 1,200 mg tablet, 1,200 mg PO BID PRN Congestion 09/25/19 09/28/24 History extended release 12 hr (Mucinex) hydrocortisone 2.5 % topical cream 30 gm TP DAILY ##1 10/25/19 09/28/24 Rx with perineal applicator ondansetron 4 mg disintegrating 4 - 8 mg (1 - 2 x 4 mg) PO Q8H PRN 10/25/19 09/28/24 Rx tablet PRN Nausea #14 tabs losartan 50 mg tablet 50 mg PO 07/07/22 09/28/24 History montelukast 10 mg tablet 10 mg PO QPM #30 tabs 03/25/23 09/28/24 Rx omalizumab 150 mg/mL subcutaneous 300 mg ( (more content not included)... Normal [facility] Low Dose CT Lung Screeningon 09-21-[address] Lung Screening [facility] Imaging Services [facility] [place] [address] Lung Screening MR#: [id number] Acct: [id number] Name: DENTON WESLEY Rep #: [id number] : 1950 M 74 From: Michael delacruz MD PCP: Dr. Cali Cordero MD Status: REG [facility] Study: Low Dose CT Lung Screening Date of Exam: 09/21 Exam# [id number] Ordering Dr: Kate Velazquez NP [facility] [id number] STUDY: LOW DOSE CT LUNG CANCER SCREENING REASON FOR EXAM: Male, 74 years old. Patient smokes 1 pack per day for 59 years. History of prostate cancer. RADIATION DOSAGE (If Supplied By Facility): CTDIvol = ( 4.02 ) mGy, DLP = ( 143.46 ) mGycm TECHNIQUE: No contrast was administered. Low dose technique was utilized (average mAS-38 and kVp 120). 1.25 mm axial source images with a slice interval of 1.25-mm were reconstructed in lung windows. 2.5 mm axial source images with a slice interval of 2.5-mm were reconstructed in lung windows. 5.0 mm axial source images with a slice interval of 5.0-mm were reconstructed in soft tissue windows. COMPARISON: Comparison is made with prior study dated January 31, 2018. NODULES: No suspicious nodule is seen. Emphysema: Mild degree of linear scarring in the lingular segment of the left upper lobe. Endobronchial lesion: Aorta: Atherosclerotic plaque formation. CORONARY ARTERIES: Coronary artery calcification is seen. Heart: Prior CABG. Pulmonary artery: Unremarkable Mediastinal nodes: Remarkable Other chest and abdominal findings: Mild degenerative changes of the thoracic vertebrae. CT/Low Dose CT Lung Screening IMPRESSION: Lung-RADS category 2 - Continue annual screening with LDCT in 12 months. IMPORTANT NOTES FOR USE: ACR Lung-RADS Version 1.1 Assessment Categories Release Date: 2018 Category: Coded 0-4 bases on nodule(s) with highest degree of suspicion. Negative screen is defined as categories 1 and 2; a positive screen is defined as categories 3 and 4. Category 3 and 4A nodules that are unchanged on interval CT should be coded as category 2, and individuals returned to screening in 12 months. Category 4X: Category 3 or 4 nodules with additional imaging findings that increase the suspicion of lung cancer, such as spiculation, GGN that doubles in size in 1 year, enlarged lymph notes, etc. Category Modifiers: S (significant finding unrelated to lung cancer) Electronically Signed: Michael De Guzman MD at 13:26 EST , CC: LENNOX Velazquez; Dr. Cali Cordero MD 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: Signed [facility] DENTON WES[facility] ([id number]) 1950 M Date Time Provider Department 09/20/24 GERRI CURRY During your visit today, we recorded the following information about you: Gerri Curry APRN.MANNY 09/20/2024 7:41 AM Signed Can you please call the patient and let him know that I reviewed his ultrasound results. Can please let patient know that his u/s showed what's called fatty liver. This happens when fat builds up in the liver. While it is usually not problematic; it can cause cirrhosis (or scarring of the liver) -- which can be problematic. Measures to prevent this include: 1. Weight loss 2. Good control of diabetes 3. Good control of cholesterol. Please let me know if he has any questions. Thank you. Gerri Curry APRN.Matilda Mcmahon RN 09/20/2024 9:20 AM Signed Called and left a voicemail for the patient to call back and ask for a nurse to receive the providers message. Joseph Tubbs MA 09/22/2024 2:01 PM Signed [employer] message sent to pt notifying him we've attempted to reach him by phone. Asked pt to call office back and speak with Triage Nurse. JOELLEN Linton Stephanie, RN 09/22/2024 3:46 PM Signed Patient notified of results and provider's instructions. Patient verbalizes understanding. Jasmine Menendez RN Allergies As of Date: 09/20/2024 Noted Allergy Reaction GEMFIBROZIL 09/25/2019 5 - Intolerance ROSUVASTATIN 09/25/2019 5 - Intolerance SIMVASTATIN 09/25/2019 5 - Intolerance IMDUR (ISOSORBIDE) 03/05/2022 5 - Intolerance Comments: Headaches, upset stomach, fatigue PENICILLINS 02/10/2007 5 - Intolerance Comments: passed out and felt like I had the flu Pt states he's no longer allergic to this, he's taken tests w/out issues. PRAVASTATIN 08/07/2021 17 - Myalgia Date Reviewed: 09/06/2024 Reviewed by: Matilda Hannah LPN - Fully Assessed Reason for Visit: Results [95] Cmt: US RUQ Prescriptions as of 09/22/2024 - semaglutide (OZEMPIC) 0.25 mg or 0.5 mg (2 mg/3 mL) pen Inject 0.25 mg subcutaneously one time a week. - famotidine (PEPCID) 20 mg tablet Take 1 tablet by mouth at bedtime as needed (Heartburn). - amLODIPine (NORVASC) 5 mg tablet Take 1 tablet by mouth once daily. - losartan (COZAAR) 100 mg tablet Take 1 tablet by mouth once daily. - multivit-min/folic/vit K/lycop (MEN'S MULTIVITAMIN ORAL) Take by mouth. - docosahexaenoic acid/epa (FISH OIL ORAL) Take by mouth. - lansoprazole (PREVACID) 30 mg capsule Take 1 capsule by mouth daily before breakfast. 1/2 hr before meal. - apixaban (ELIQUIS) 5 mg tab(s) Take 1 tablet by mouth two times a day. - aspirin, enteric coated (ECOTRIN LOW STRENGTH) 81 mg EC tablet Take 1 tablet by mouth once daily. - evolocumab (REPATHA SURECLICK) 140 mg/mL pen injector Inject 140 mg subcutaneously every 2 weeks. - guaiFENesin (MUCINEX) 600 mg 12 hr tablet Take 1 tablet by mouth twice daily as needed for cold/allergy symptoms. - loratadine (CLARITIN) 10 mg tablet Take 1 tablet by mouth once daily. - nitroglycerin sublingual (NITROQUICK) 0.4 mg SL tablet Dissolve 0.4 mg under the tongue every 5 minutes as needed. - ADVAIR DISKUS 500-50 mcg/dose dsdv INHALE 1 (ONE) puff EVERY 12 HOURS Problem List As Of Date 09/20/2024 Noted Resolved SUBCUTANEOUS NODULES [R22.9] 02/21/2007 Dark urine [R82.998] 10/05/2013 Abdominal pain, other specified site [R10.9] Elevated glucose [R73.09] 01/29/2020 Coronary artery disease of nome artery of kevin*01/29/2020 Mixed hyperlipidemia [E78.2] 01/29/2020 Essential hypertension [I10] 01/29/2020 S/P right coronary artery (RCA) stent placement*06/24/2021 Pure hypercholesterolemia [E78.00] 08/13/2021 Elevated PSA [R97.20] 03/11/2022 Stable angina (HCC) [I20.89] 06/10/2022 Dyspnea on exertion [R06.09] 06/10/2022 S/P CABG x 2 [Z95.1] 10/16/2022 Type 2 diabetes mellitus without complication, *12/11/2022 Prostate cancer (HCC) [C61] 07/30/2023 Postoperative atrial fibrillation (HCC) [I97.89*11/25/2023 Bilateral hip pain [M25.551, M25.552] 02/08/2024 History of colonic polyps [Z86.0100] 07/19/2024 Encounter Status:Closed by JASMINE MENENDEZ on 09/22/24 Normal [facility] ECHOon 09-19-2024 CONCLUSIONS: - Technically difficult exam due to body habitus. - Exam indication: Chest Pain - The left ventricle is normal in size. Left ventricular systolic function is normal. EF = 64 5% (2D biplane) Grade I left ventricular diastolic dysfunction. - The right ventricle is normal in size. Right ventricular systolic function is low normal. - The right atrial cavity is dilated. - Estimated right ventricular systolic pressure is likely underestimated due to a weak or incomplete tricuspid regurgitation signal and is, at least, 23 mmHg consistent with normal pulmonary artery pressures. Estimated right atrial pressure is 3 mmHg based on IVC assessment. - There are no significant valvular abnormalities. - Exam was compared with the prior echocardiographic exam performed on 06/18/2022. There is no significant change. * * * Final * * * [facility] Echocardiography Report: Transthoracic Echo [facility] Date of service: 09/19/2024 10:15:11 AM Ordering physician: JERE RUST Indication: Chest Pain Technologist: Vivienne Fonseca [facility] Interpreting physician: Juan A Pacheco DO PATIENT: Name: MR. DENTON WESLEY : 1950 Age: 74 years Gender: M History of hypertension, diabetes mellitus, coronary artery disease and arrhythmia. Previous cardiovascular interventions: CABG (10/16/2022) Primary rhythm: sinus. Height: 180.34 cm BSA: 2.30 m Weight: 105.24 kg BMI: 32.4 kg/m Heart rate 74 bpm Blood pressure 181/98 mmHg Technically difficult exam due to body habitus. Color Doppler was utilized to interrogate the cardiac valves assessed and spectral Doppler was utilized to determine the flow velocities and pressure gradients reported in this exam. MEASUREMENTS: Value Indexed Normal Max aortic dimension 3.7 cm Ao < 3.8 Left atrial volume 52 ml (biplane A-L) 23 ml/m Josselin <= 34 LV ID (diastole) 4.5 cm (2D) 1.96 cm/m LV ID (systole) 3.0 cm (2D) 1.29 cm/m IVS, leaflet tips 1.1 cm (2D) Posterior wall thickness 0.9 cm (2D) Left ventricular mass 153 g (2D) 67 g/m LV stroke volume 96 ml (2D biplane) LV end diastolic volume 149 ml (2D biplane) 64.9 ml/m 34<=EDVi<75 LV end systolic volume 53 ml (2D biplane) 23.1 ml/m Ejection Fraction 64 % (2D biplane) EF > 52 FINDINGS: LEFT VENTRICLE The left ventricle is normal in size. Left ventricular systolic function is normal. Grade I left ventricular diastolic dysfunction. Mitral annular lateral E/e': 7.2. Mitral annular septal E/e': 14.5. Wall Motion: All scored segments are normal. RIGHT VENTRICLE The right ventricle is normal in size. Right ventricular systolic function is low normal. RV systolic tissue Doppler velocity is 9.7 cm/s. Tricuspid annular displacement is 0.9 cm. Estimated right ventricular systolic pressure is likely underestimated due to a weak or incomplete tricuspid regurgitation signal and is, at least, 23 mmHg consistent with normal pulmonary artery pressures. Estimated right atrial pressure is 3 mmHg based on IVC assessment. LEFT ATRIUM The left atrial cavity is normal in size. RIGHT ATRIUM The right atrial cavity is dilated. Inferior Vena Cava: The inferior vena cava appears normal measuring 1.9 cm. The vessel decreases greater than 50 percent with inspiration. MITRAL VALVE There is no mitral valve regurgitation. There is mild thickening. The pressure half time is 68 msec. The peak mitral E/A ratio is 0.91. The mitral flow deceleration time is 235 msec. TRICUSPID VALVE The tricuspid valve leaflets are structurally normal. There is trace (trace - 1+) tricuspid valve regurgitation. AORTIC VALVE There is no aortic valve regurgitation. Tricuspid aortic valve. There is mild calcification of the right aortic cusp. The peak gradient is 5 mmHg (peak velocity = 115.0 cm/s). PULMONIC VALVE The pulmonic valve cusps are structurally normal. There is trace pulmonic valve regurgitation. AORTA The visualized aorta is normal in size. Measurements - Mid ascending aorta 3.7 cm. PULMONARY ARTERIES The main pulmonary artery is normal in size. The main pulmonary artery diameter is 2.2 cm (diastolic). INTERATRIAL SEPTUM The interatrial septum is normal. INTERVENTRICULAR SEPTUM There is abnormal motion of the interventricular septum secondary to prior cardiac surgery. PERICARDIUM There is no pericardial effusion. [facility] Echocardiography Echocardiography Rep ort: Transthoracic Echo [facility] Date of service: 09/19/2024 10:15:11 AM Ordering physician: JERE RUST Indication: Chest Pain Technologist: Vivienne Fonseca [facility] Interpreting physician: Juan A Pacheco DO PATIENT: Name: MR. DENTON WESLEY : 1950 Age: 74 years Gender: M History of hypertension, diabetes mellitus, coronary artery disease and arrhythmia. Previous cardiovascular interventions: CABG (10/16/2022) Primary rhythm: sinus. Height: 180.34 cm BSA: 2.30 m Weight: 105.24 kg BMI: 32.4 kg/m Heart rate 74 bpm Blood pressure 181/98 mmHg Technically difficult exam due to body habitus. Color Doppler was utilized to interrogate the cardiac valves assessed and spectral Doppler was utilized to determine the flow velocities and pressure gradients reported in this exam. MEASUREMENTS: Value Indexed Normal Max aortic dimension 3.7 cm Ao < 3.8 Left atrial volume 52 ml (biplane A-L) 23 ml/m Josselin <= 34 LV ID (diastole) 4.5 cm (2D) 1.96 cm/m LV ID (systole) 3.0 cm (2D) 1.29 cm/m IVS, leaflet tips 1.1 cm (2D) Posterior wall thickness 0.9 cm (2D) Left ventricular mass 153 g (2D) 67 g/m LV stroke volume 96 ml (2D biplane) LV end diastolic volume 149 ml (2D biplane) 64.9 ml/m 34<=EDVi<75 LV end systolic volume 53 ml (2D biplane) 23.1 ml/m Ejection Fraction 64 % (2D biplane) EF > 52 FINDINGS: LEFT VENTRICLE The left ventricle is normal in size. Left ventricular systolic function is normal. Grade I left ventricular diastolic dysfunction. Mitral annular lateral E/e': 7.2. Mitral annular septal E/e': 14.5. Wall Motion: All scored segments are normal. RIGHT VENTRICLE The right ventricle is normal in size. Right ventricular systolic function is low normal. RV systolic tissue Doppler velocity is 9.7 cm/s. Tricuspid annular displacement is 0.9 cm. Estimated right ventricular systolic pressure is likely underestimated due to a weak or incomplete tricuspid regurgitation signal and is, at least, 23 mmHg consistent with normal pulmonary artery pressures. Estimated right atrial pressure is 3 mmHg based on IVC assessment. LEFT ATRIUM The left atrial cavity is normal in size. RIGHT ATRIUM The right atrial cavity is dilated. Inferior Vena Cava: The inferior vena cava appears normal measuring 1.9 cm. The vessel decreases greater than 50 percent with inspiration. MITRAL VALVE There is no mitral valve regurgitation. There is mild thickening. The pressure half time is 68 msec. The peak mitral E/A ratio is 0.91. The mitral flow deceleration time is 235 msec. TRICUSPID VALVE The tricuspid valve leaflets are structurally normal. There is trace (trace - 1+) tricuspid valve regurgitation. AORTIC VALVE There is no aortic valve regurgitation. Tricuspid aortic valve. There is mild calcification of the right aortic cusp. The peak gradient is 5 mmHg (peak velocity = 115.0 cm/s). PULMONIC VALVE The pulmonic valve cusps are structurally normal. There is trace pulmonic valve regurgitation. AORTA The visualized aorta is normal in size. Measurements - Mid ascending aorta 3.7 cm. PULMONARY ARTERIES The main pulmonary artery is normal in size. The main pulmonary artery diameter is 2.2 cm (diastolic). INTERATRIAL SEPTUM The interatrial septum is normal. INTERVENTRICULAR SEPTUM There is abnormal motion of the interventricular septum secondary to prior cardiac surgery. PERICARDIUM There is no pericardial effusion. CONCLUSIONS: - Technically difficult exam due to body habitus. - Exam indication: Chest Pain - The left ventricle is normal in size. Left ventricular systolic function is normal. EF = 64 5% (2D biplane) Grade I left ventricular diastolic dysfunction. - The right ventricle is normal in size. Right ventricular systolic function is low normal. - The right atrial cavity is dilated. - Estimated right ventricular systolic pressure is likely underestimated due to a weak or incomplete tricuspid regurgitation signal and is, at least, 23 mmHg consistent with normal pulmonary artery pressures. Estimated right atrial pressure is 3 mmHg based on IVC assessment. - There are no significant valvular abnormalities. - Exam was compared with the prior echocardiographic exam performed on 06/18/2022. There is no significant change. * * * Final * * * [employer] [facility] [employer] : [id number]. 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 DENTON WESLEY Age: 74 years Gender: M The supervising physician was in the department and immediately available. * * * Final * * * PATIENT: Name: MR. DENTON WESLEY Age: 74 years Gender: M CONCLUSIONS: 1. SPECT Perfusion Study: Normal. 2. There is no scintigraphic evidence for inducible ischemia. 3. No evidence of scarred myocardium. 4. Left ventricle is small. The left ventricle systolic function is normal. 5. This is a low risk scan. Gated Stress IR:3D LVEF % 72 Prior Study Comparison Prior nuclear cardiology exam was performed on 06/23/2021. Nuclear Med Report:1-Day Gated SPECT Myocardial Perfusion with Exercise Stress: Myocardial perfusion imaging was performed at rest 30 to 60 minutes following the IV injection of the radiotracer. One minute prior to peak exercise, the patient was injected IV with the radiotracer. Gated post stress tomographic imaging was performed 10 to 20 minutes later. See administered radiotracer and doses below. [facility] Date of service: 09/19/2024 11:37:02 AM Ordering Physician: JERE RUST. Requesting Physician: Indication: CP - ECG interpretable AND able to exercise with low probability of CAD Interpreting physician: Adam Bojorquez MD Previous Cardiovascular Interventions: PCI : Stents x 4 (2015, 2017) CABG (2022) : CABG x2 Height: 180.34 cm BSA: 2.30 m? Weight: 105.69 kg BMI: 32.5 kg/m? Exam Type: Rest Stress Radiopharm: Tc-99m Tetrofosmin Tc-99m Tetrofosmin Dosage(mCi): 12.9 35.3 Atten Correction: not performed not performed Stress Agent: Treadmill Resting Blood Press: 160/86 mmHg Image Quality The overall study imaging quality was deemed to be good. FINDINGS: Left Ventricle Wall Motion: Stress IR:3D - All segments are normal. Rest IR:3D - Gated Stress IR:3D - Reversibility - Stress IR:3D Stress IR:3D Gated Stress IR:3D LVEF: 72 % ED Volume: 86 ml ES Volume: 24 ml TID: 0.75 Perfusion Findings Stress IR:3D - Summed Score=0 All segments demonstrate normal perfusion. Rest IR:3D - Summed Score=0 All segments demonstrate normal perfusion. Stress IR:3D Rest IR:3D Summed Score=0 Summed Score=0 LEFT VENTRICLE The left ventricle is small. Left ventricular systolic function is normal. Right Ventricle The right ventricle is unseen or not interrogated. Stress Test Findings: There is no scintigraphic evidence for inducible ischemia. There is no evidence of scarring. * * * Final * * * Stress ECG Report: [facility] Date of service: 09/19/2024 11:37:02 AM Ordering physician: JERE RUST conference specialist: Kimmy Javier [employer] Sales Assistant: Siri Mccarty Interpreting physician: Kate Javier MD Patient name: MR. DENTON WESLEY Age: 74 years Gender: M Height: 180.34 cm BSA: 2.30 m? Weight: 105.69 kg BMI: 32.5 kg/m? Indication: Chest pressure / Chest tightness Stress ECG Conclusion: Conclusion: Normal with exception due to low heart rate recovery Stress ECG Summary: The patient's resting heart rate was 72 bpm and blood pressure was 160/86 mmHg. The patient exercised according to the Sharon protocol. The estimated end-exercise MET level achieved using the FRIEND equation * * * was 6.1, which is within the 25th to 50th percentile for age and sex. The estimated end-exercise MET level achieved using the previous ACSM equation was 7.0. The test was terminated due to shortness of breath and leg fatigue and the total exercise time was 6 minutes and 0 seconds. Other symptoms during the test included leg fatigue and SOB. The maximum heart rate was 133 bpm, which is 91% of the predicted heart rate for age. This is an adequate heart rate response. Peak blood pressure was 220/96 mmHg. The double product achieved was [address]. Previous cardiovascular interventions: PCI : Stents x 4 (2015, 2017) CABG (2022) : CABG x2 Medications: Last Used PEPCID NORVASC COZAAR PREVACID ELIQUIS ASPIRIN NITROGLYCERIN Resting ECG: Normal Sinus Rhythm Symptoms at rest: No symptoms Exercise Protocol: Sharon Stress Exercise Table: +-----+ +------- -+ +---+---+---+- ---+----+ (more content not included)... 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 DENTON WESLEY Age: 74 years Gender: M The supervising physician was in the department and immediately available. * * * Final * * * PATIENT: Name: MR. DENTON WESLEY Age: 74 years Gender: M CONCLUSIONS: 1. SPECT Perfusion Study: Normal. 2. There is no scintigraphic evidence for inducible ischemia. 3. No evidence of scarred myocardium. 4. Left ventricle is small. The left ventricle systolic function is normal. 5. This is a low risk scan. Gated Stress IR:3D LVEF % 72 Prior Study Comparison Prior nuclear cardiology exam was performed on 06/23/2021. Nuclear Med Report:1-Day Gated SPECT Myocardial Perfusion with Exercise Stress: Myocardial perfusion imaging was performed at rest 30 to 60 minutes following the IV injection of the radiotracer. One minute prior to peak exercise, the patient was injected IV with the radiotracer. Gated post stress tomographic imaging was performed 10 to 20 minutes later. See administered radiotracer and doses below. [facility] Date of service: 09/19/2024 11:37:02 AM Ordering Physician: JERE RUST. Requesting Physician: Indication: CP - ECG interpretable AND able to exercise with low probability of CAD Interpreting physician: Adam Bojorquez MD Previous Cardiovascular Interventions: PCI : Stents x 4 (2015, 2017) CABG (2022) : CABG x2 Height: 180.34 cm BSA: 2.30 m Weight: 105.69 kg BMI: 32.5 kg/m Exam Type: Rest Stress Radiopharm: Tc-99m Tetrofosmin Tc-99m Tetrofosmin Dosage(mCi): 12.9 35.3 Atten Correction: not performed not performed Stress Agent: Treadmill Resting Blood Press: 160/86 mmHg Image Quality The overall study imaging quality was deemed to be good. FINDINGS: Left Ventricle Wall Motion: Stress IR:3D - All segments are normal. Rest IR:3D - Gated Stress IR:3D - Reversibility - Stress IR:3D Stress IR:3D Gated Stress IR:3D LVEF: 72 % ED Volume: 86 ml ES Volume: 24 ml TID: 0.75 Perfusion Findings Stress IR:3D - Summed Score=0 All segments demonstrate normal perfusion. Rest IR:3D - Summed Score=0 All segments demonstrate normal perfusion. Stress IR:3D Rest IR:3D Summed Score=0 Summed Score=0 LEFT VENTRICLE The left ventricle is small. Left ventricular systolic function is normal. Right Ventricle The right ventricle is unseen or not interrogated. Stress Test Findings: There is no scintigraphic evidence for inducible ischemia. There is no evidence of scarring. * * * Final * * * Stress ECG Report: [facility] Date of service: 09/19/2024 11:37:02 AM Ordering physician: JERE RUST conference specialist: Kimmy Javier [employer] Sales Assistant: Siri Mccarty Interpreting physician: Kate Javier MD Patient name: MR. DENTON WESLEY Age: 74 years Gender: M Height: 180.34 cm BSA: 2.30 m Weight: 105.69 kg BMI: 32.5 kg/m Indication: Chest pressure / Chest tightness Stress ECG Conclusion: Conclusion: Normal with exception due to low heart rate recovery Stress ECG Summary: The patient's resting heart rate was 72 bpm and blood pressure was 160/86 mmHg. The patient exercised according to the Sharon protocol. The estimated end-exercise MET level achieved using the FRIEND equation * * * was 6.1, which is within the 25th to 50th percentile for age and sex. The estimated end-exercise MET level achieved using the previous ACSM equation was 7.0. The test was terminated due to shortness of breath and leg fatigue and the total exercise time was 6 minutes and 0 seconds. Other symptoms during the test included leg fatigue and SOB. The maximum heart rate was 133 bpm, which is 91% of the predicted heart rate for age. This is an adequate heart rate response. Peak blood pressure was 220/96 mmHg. The double product achieved was [address]. Previous cardiovascular interventions: PCI : Stents x 4 (2016, 2018) (more content not included)... 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 DENTON WESLEY Age: 74 years Gender: M The supervising physician was in the department and immediately available. * * * Final * * * PATIENT: Name: MR. DENTON WESLEY Age: 74 years Gender: M CONCLUSIONS: 1. SPECT Perfusion Study: Normal. 2. There is no scintigraphic evidence for inducible ischemia. 3. No evidence of scarred myocardium. 4. Left ventricle is small. The left ventricle systolic function is normal. 5. This is a low risk scan. Gated Stress IR:3D LVEF % 72 Prior Study Comparison Prior nuclear cardiology exam was performed on 06/23/2021. Nuclear Med Report:1-Day Gated SPECT Myocardial Perfusion with Exercise Stress: Myocardial perfusion imaging was performed at rest 30 to 60 minutes following the IV injection of the radiotracer. One minute prior to peak exercise, the patient was injected IV with the radiotracer. Gated post stress tomographic imaging was performed 10 to 20 minutes later. See administered radiotracer and doses below. [facility] Date of service: 09/19/2024 11:37:02 AM Ordering Physician: JERE RUST. Requesting Physician: Indication: CP - ECG interpretable AND able to exercise with low probability of CAD Interpreting physician: Adam Bojorquez MD Previous Cardiovascular Interventions: PCI : Stents x 4 (2015, 2017) CABG (2022) : CABG x2 Height: 180.34 cm BSA: 2.30 m Weight: 105.69 kg BMI: 32.5 kg/m Exam Type: Rest Stress Radiopharm: Tc-99m Tetrofosmin Tc-99m Tetrofosmin Dosage(mCi): 12.9 35.3 Atten Correction: not performed not performed Stress Agent: Treadmill Resting Blood Press: 160/86 mmHg Image Quality The overall study imaging quality was deemed to be good. FINDINGS: Left Ventricle Wall Motion: Stress IR:3D - All segments are normal. Rest IR:3D - Gated Stress IR:3D - Reversibility - Stress IR:3D Stress IR:3D Gated Stress IR:3D LVEF: 72 % ED Volume: 86 ml ES Volume: 24 ml TID: 0.75 Perfusion Findings Stress IR:3D - Summed Score=0 All segments demonstrate normal perfusion. Rest IR:3D - Summed Score=0 All segments demonstrate normal perfusion. Stress IR:3D Rest IR:3D Summed Score=0 Summed Score=0 LEFT VENTRICLE The left ventricle is small. Left ventricular systolic function is normal. Right Ventricle The right ventricle is unseen or not interrogated. Stress Test Findings: There is no scintigraphic evidence for inducible ischemia. There is no evidence of scarring. * * * Final * * * Stress ECG Report: [facility] Date of service: 09/19/2024 11:37:02 AM Ordering physician: JERE RUST conference specialist: Kimmy Javier [employer] Sales Assistant: Siri Mccarty Interpreting physician: Kate Javier MD Patient name: MR. DENTON WESLEY Age: 74 years Gender: M Height: 180.34 cm BSA: 2.30 m Weight: 105.69 kg BMI: 32.5 kg/m Indication: Chest pressure / Chest tightness Stress ECG Conclusion: Conclusion: Normal with exception due to low heart rate recovery Stress ECG Summary: The patient's resting heart rate was 72 bpm and blood pressure was 160/86 mmHg. The patient exercised according to the Sharon protocol. The estimated end-exercise MET level achieved using the FRIEND equation * * * was 6.1, which is within the 25th to 50th percentile for age and sex. The estimated end-exercise MET level achieved using the previous ACSM equation was 7.0. The test was terminated due to shortness of breath and leg fatigue and the total exercise time was 6 minutes and 0 seconds. Other symptoms during the test included leg fatigue and SOB. The maximum heart rate was 133 bpm, which is 91% of the predicted heart rate for age. This is an adequate heart rate response. Peak blood pressure was 220/96 mmHg. The double product achieved was 42113. Previous cardiovascular interventions: PCI : Stents x 4 (2015, 2017) CABG (2022) : CABG x2 Medications: Last Used PEPCID NORVASC COZAAR PREVACID ELIQUIS ASPIRIN NITROGLYCERIN Resting ECG: Normal (more content not included)... [facility] Radiology Study observation (narrative) [facility] NM Heart Perfusion W multipl e states of exerciseOrdered By: Ccf Provider on 09-19-2024 [facility] CNPNon 09-18-2024 CNPN Telephone (CDLBME) -- DENTON WESLEY ([id number]) 1950 M Date Time Provider Department 09/18/24 SIRI MCCARTY LE During your visit today, we recorded the following information about you: Siri Mccarty RN 09/18/2024 3:18 PM Signed Spoke to pt regarding reminder and instructions for stress test tomorrow. This included where to check in, length of test and no caffeine for 12 hours prior to test, Allergies As of Date: 09/18/2024 Noted Allergy Reaction GEMFIBROZIL 09/25/2019 5 - Intolerance ROSUVASTATIN 09/25/2019 5 - Intolerance SIMVASTATIN 09/25/2019 5 - Intolerance IMDUR (ISOSORBIDE) 03/05/2022 5 - Intolerance Comments: Headaches, upset stomach, fatigue PENICILLINS 02/10/2007 5 - Intolerance Comments: passed out and felt like I had the flu Pt states he's no longer allergic to this, he's taken tests w/out issues. PRAVASTATIN 08/07/2021 17 - Myalgia Date Reviewed: 09/06/2024 Reviewed by: Matilda Hannah LPN - Fully Assessed Reason for Visit: Reminder Call [[id number]] Prescriptions as of 09/18/2024 - semaglutide (OZEMPIC) 0.25 mg or 0.5 mg (2 mg/3 mL) pen Inject 0.25 mg subcutaneously one time a week. - famotidine (PEPCID) 20 mg tablet Take 1 tablet by mouth at bedtime as needed (Heartburn). - amLODIPine (NORVASC) 5 mg tablet Take 1 tablet by mouth once daily. - losartan (COZAAR) 100 mg tablet Take 1 tablet by mouth once daily. - multivit-min/folic/vit K/lycop (MEN'S MULTIVITAMIN ORAL) Take by mouth. - docosahexaenoic acid/epa (FISH OIL ORAL) Take by mouth. - lansoprazole (PREVACID) 30 mg capsule Take 1 capsule by mouth daily before breakfast. 1/2 hr before meal. - apixaban (ELIQUIS) 5 mg tab(s) Take 1 tablet by mouth two times a day. - aspirin, enteric coated (ECOTRIN LOW STRENGTH) 81 mg EC tablet Take 1 tablet by mouth once daily. - evolocumab (REPATHA SURECLICK) 140 mg/mL pen injector Inject 140 mg subcutaneously every 2 weeks. - guaiFENesin (MUCINEX) 600 mg 12 hr tablet Take 1 tablet by mouth twice daily as needed for cold/allergy symptoms. - loratadine (CLARITIN) 10 mg tablet Take 1 tablet by mouth once daily. - nitroglycerin sublingual (NITROQUICK) 0.4 mg SL tablet Dissolve 0.4 mg under the tongue every 5 minutes as needed. - ADVAIR DISKUS 500-50 mcg/dose dsdv INHALE 1 (ONE) puff EVERY 12 HOURS Problem List As Of Date 09/18/2024 Noted Resolved SUBCUTANEOUS NODULES [R22.9] 02/21/2007 Dark urine [R82.998] 10/05/2013 Abdominal pain, other specified site [R10.9] Elevated glucose [R73.09] 01/29/2020 Coronary artery disease of nome artery of kevin*01/29/2020 Mixed hyperlipidemia [E78.2] 01/29/2020 Essential hypertension [I10] 01/29/2020 S/P right coronary artery (RCA) stent placement*06/24/2021 Pure hypercholesterolemia [E78.00] 08/13/2021 Elevated PSA [R97.20] 03/11/2022 Stable angina (HCC) [I20.89] 06/10/2022 Dyspnea on exertion [R06.09] 06/10/2022 S/P CABG x 2 [Z95.1] 10/16/2022 Type 2 diabetes mellitus without complication, *12/11/2022 Prostate cancer (HCC) [C61] 07/30/2023 Postoperative atrial fibrillation (HCC) [I97.89*11/25/2023 Bilateral hip pain [M25.551, M25.552] 02/08/2024 History of colonic polyps [Z86.0100] 07/19/2024 Encounter Status:Closed by SIRI MCCARTY on 09/18/24 [facility] No Panel Informationon 09-18 IMPRESSION: Fatty infiltration of the liver. Prior cholecystectomy. No acute process is seen. 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 Transcribe Date/Time: Sep 18 2024 4:59P Dictated by : TEDDY SOLIMAN MD This examination was interpreted and the report reviewed and electronically signed by: TEDDY SOLIMAN MD on Sep 18 2024 5:00PM [facility] DIVISION OF RADIOLOGY No Panel InformationOrdered By: Ccf Provider on 09-18-2024 [facility] US ABD RIGHT UPPER QUADRANTo n 09-18-2024 US ABD RIGHT UPPER QUADRANT * * *Final Report* * * DATE OF EXAM: Sep 18 2024 2:21PM U 1032 - US ABD RIGHT UPPER QUADRANT / PROCEDURE REASON: Epigastric pain * * * * Physician Interpretation * * * * EXAMINATION: RIGHT UPPER QUADRANT ULTRASOUND CLINICAL HISTORY: Epigastric pain TECHNIQUE: Sonography of the right upper quadrant was performed. Images were obtained and stored in a permanent archive. MQ: URUQ_2 COMPARISON: None. RESULT: Evaluation is limited by patient's body habitus. Pancreas: Normal sonographic appearance. Portions obscured: tail Liver: Partially obscured Echotexture: Normal, homogeneous. Echogenicity: Increased Surface contour: Smooth Lesions: None. Biliary: No intrahepatic biliary duct dilation. CBD: 0.4 cm at the hilum. Gallbladder: Prior cholecystectomy Right Kidney: No hydronephrosis. The spleen is of normal echogenicity without focal lesion, and of normal size measuring 9.2 cm in length. Ascites: None. IMPRESSION: Fatty infiltration of the liver. Prior cholecystectomy. No acute process is seen. 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: PSCB Transcribe Date/Time: Sep 18 2024 4:59P Dictated by : TEDDY SOLIMAN MD This examination was interpreted and the report reviewed and electronically signed by: TEDDY SOLIMAN MD on Sep 18 2024 5:00PM EST [id number] Normal [facility] ABD SPLEEN - NBon 024 * * *Final Report* * * DATE OF EXAM: Sep 18 2024 2:21PM [facility] 1232 - US ABD SPLEEN -NB / PROCEDURE REASON: Epigastric pain * * * * Physician Interpretation * * * * EXAMINATION: RIGHT UPPER QUADRANT ULTRASOUND CLINICAL HISTORY: Epigastric pain TECHNIQUE: Sonography of the right upper quadrant was performed. Images were obtained and stored in a permanent archive. MQ: URUQ_2 COMPARISON: None. RESULT: Evaluation is limited by patient's body habitus. Pancreas: Normal sonographic appearance. Portions obscured: tail Liver: Partially obscured Echotexture: Normal, homogeneous. Echogenicity: Increased Surface contour: Smooth Lesions: None. Biliary: No intrahepatic biliary duct dilation. CBD: 0.4 cm at the hilum. Gallbladder: Prior cholecystectomy Right Kidney: No hydronephrosis. The spleen is of normal echogenicity without focal lesion, and of normal size measuring 9.2 cm in length. Ascites: None. DIVISION OF RADIOLOGY Provider, [facility] - 09/18/2024 * * *Final Report* * * DATE OF EXAM: Sep 18 2024 2:21PM [facility] 1232 - US ABD SPLEEN -NB / PROCEDURE REASON: Epigastric pain * * * * Physician Interpretation * * * * EXAMINATION: RIGHT UPPER QUADRANT ULTRASOUND CLINICAL HISTORY: Epigastric pain TECHNIQUE: Sonography of the right upper quadrant was performed. Images were obtained and stored in a permanent archive. MQ: URUQ_2 COMPARISON: None. RESULT: Evaluation is limited by patient's body habitus. Pancreas: Normal sonographic appearance. Portions obscured: tail Liver: Partially obscured Echotexture: Normal, homogeneous. Echogenicity: Increased Surface contour: Smooth Lesions: None. Biliary: No intrahepatic biliary duct dilation. CBD: 0.4 cm at the hilum. Gallbladder: Prior cholecystectomy Right Kidney: No hydronephrosis. The spleen is of normal echogenicity without focal lesion, and of normal size measuring 9.2 cm in length. Ascites: None. IMPRESSION IMPRESSION: Fatty infiltration of the liver. Prior cholecystectomy. No acute process is seen. 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 Transcribe Date/Time: Sep 18 2024 4:59P Dictated by : TEDDY SOLIMAN MD This examination was interpreted and the report reviewed and electronically signed by: TEDDY SOLIMAN MD on Sep 18 2024 5:00PM EST [facility] Radiology Study observation (narrative) [facility] US ABD SPLEEN -NBon 09-18-20 24 US ABD SPLEEN -NB * * *Final Report* * * DATE OF EXAM: Sep 18 2024 2:21PM U 1232 - US ABD SPLEEN -NB / PROCEDURE REASON: Epigastric pain * * * * Physician Interpretation * * * * EXAMINATION: RIGHT UPPER QUADRANT ULTRASOUND CLINICAL HISTORY: Epigastric pain TECHNIQUE: Sonography of the right upper quadrant was performed. Images were obtained and stored in a permanent archive. MQ: URUQ_2 COMPARISON: None. RESULT: Evaluation is limited by patient's body habitus. Pancreas: Normal sonographic appearance. Portions obscured: tail Liver: Partially obscured Echotexture: Normal, homogeneous. Echogenicity: Increased Surface contour: Smooth Lesions: None. Biliary: No intrahepatic biliary duct dilation. CBD: 0.4 cm at the hilum. Gallbladder: Prior cholecystectomy Right Kidney: No hydronephrosis. The spleen is of normal echogenicity without focal lesion, and of normal size measuring 9.2 cm in length. Ascites: None. IMPRESSION: Fatty infiltration of the liver. Prior cholecystectomy. No acute process is seen. 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: Surphace Transcribe Date/Time: Sep 18 2024 4:59P Dictated by : TEDDY SOLIMAN MD This examination was interpreted and the report reviewed and electronically signed by: TEDDY SOLIMAN MD on Sep 18 2024 5:00PM EST [id number] Normal [facility] US Abdomen RUQon 09-18-2024 * * *Final Report* * * DATE OF EXAM: Sep 18 2024 2:21PM [facility] 1032 - US ABD RIGHT UPPER QUADRANT / PROCEDURE REASON: Epigastric pain * * * * Physician Interpretation * * * * EXAMINATION: RIGHT UPPER QUADRANT ULTRASOUND CLINICAL HISTORY: Epigastric pain TECHNIQUE: Sonography of the right upper quadrant was performed. Images were obtained and stored in a permanent archive. MQ: URUQ_2 COMPARISON: None. RESULT: Evaluation is limited by patient's body habitus. Pancreas: Normal sonographic appearance. Portions obscured: tail Liver: Partially obscured Echotexture: Normal, homogeneous. Echogenicity: Increased Surface contour: Smooth Lesions: None. Biliary: No intrahepatic biliary duct dilation. CBD: 0.4 cm at the hilum. Gallbladder: Prior cholecystectomy Right Kidney: No hydronephrosis. The spleen is of normal echogenicity without focal lesion, and of normal size measuring 9.2 cm in length. Ascites: None. DIVISION OF RADIOLOGY Provider, [facility] - 09/18/2024 * * *Final Report* * * DATE OF EXAM: Sep 18 2024 2:21PM [facility] 1032 - US ABD RIGHT UPPER QUADRANT / PROCEDURE REASON: Epigastric pain * * * * Physician Interpretation * * * * EXAMINATION: RIGHT UPPER QUADRANT ULTRASOUND CLINICAL HISTORY: Epigastric pain TECHNIQUE: Sonography of the right upper quadrant was performed. Images were obtained and stored in a permanent archive. MQ: URUQ_2 COMPARISON: None. RESULT: Evaluation is limited by patient's body habitus. Pancreas: Normal sonographic appearance. Portions obscured: tail Liver: Partially obscured Echotexture: Normal, homogeneous. Echogenicity: Increased Surface contour: Smooth Lesions: None. Biliary: No intrahepatic biliary duct dilation. CBD: 0.4 cm at the hilum. Gallbladder: Prior cholecystectomy Right Kidney: No hydronephrosis. The spleen is of normal echogenicity without focal lesion, and of normal size measuring 9.2 cm in length. Ascites: None. IMPRESSION IMPRESSION: Fatty infiltration of the liver. Prior cholecystectomy. No acute process is seen. 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 Transcribe Date/Time: Sep 18 2024 4:59P Dictated by : TEDDY SOLIMAN MD This examination was interpreted and the report reviewed and electronically signed by: TEDDY SOLIMAN MD on Sep 18 2024 5:00PM EST [facility] Radiology Study observation (narrative) [facility] Dev 09-07-2024 ONDINA Telephone (FAMPWS) -- DENTON WESLEY ([id number]) 1950 M Date Time Provider Department 09/07/24 [facility] your visit today, we recorded the following information about you: Gerri Curry APRN.MNANY 09/07/2024 3:22 PM Signed Can you please call the patient and let him know that I reviewed his lab results. A1c went from 6.9 to 7.0. Labs are relatively stable, I see no signs of pancreatitis or infection. Due to the ongoing epigastric pain we can get a RUQ ultrasound for further evaluation. I know he was concerned about the recent weight gain, I can send in a prescription for a GLP-1 injectable which will help his diabetes as well as weight loss. This would include Ozempic, Mounjaro, or Trulicity. Please let me know what he prefers. I would like him to continue to work on eating a low-carb diet, increase lean protein, vegetables, get some form exercise. Thank you Gerri Curry APRN.Amy Lincoln RN 09/07/2024 4:12 PM Signed Pt called and is notified of providers results and instructions. Pt voices understanding. Pt states he thinks the Ozempic is the one that his insurance covers, but he is going to call them and make sure and give us a call back. Pt would like provider RUQ ultrasound for further evaluation. CHILANGO Ayers Ashley, APRN.MANNY 09/08/2024 6:57 AM Signed Noted, RUQ US has been placed. Gerri Curry APRN.Joseph Norris MA 09/08/2024 8:17 AM Signed Can we please call pt and help assist him in scheduling RUQ US as ordered by Provider. JOELLEN Linton Michelle 09/11/2024 9:57 AM Signed 1st attempt LV to schedule US Tasha Lopez 09/14/2024 1:03 PM Signed 2nd call attempt, left vm Joseph Tubbs MA 09/19/2024 11:17 AM Signed US completed 09/18/24. Joseph Tubbs MA Allergies As of Date: 09/07/2024 Noted Allergy Reaction GEMFIBROZIL 09/25/2019 5 - Intolerance ROSUVASTATIN 09/25/2019 5 - Intolerance SIMVASTATIN 09/25/2019 5 - Intolerance IMDUR (ISOSORBIDE) 03/05/2022 5 - Intolerance Comments: Headaches, upset stomach, fatigue PENICILLINS 02/10/2007 5 - Intolerance Comments: passed out and felt like I had the flu Pt states he's no longer allergic to this, he's taken tests w/out issues. PRAVASTATIN 08/07/2021 17 - Myalgia Date Reviewed: 09/06/2024 Reviewed by: Matilda Hannah LPN - Fully Assessed Reason for Visit: Results [95] Cmt: Lab Primary Visit Diagnosis:Epigastric pain [R10.13] Order(s):US ABD RIGHT UPPER QUADRANT [[id number]] Order #: [id number] FUTURE Prescriptions as of 09/19/2024 - semaglutide (OZEMPIC) 0.25 mg or 0.5 mg (2 mg/3 mL) pen Inject 0.25 mg subcutaneously one time a week. - famotidine (PEPCID) 20 mg tablet Take 1 tablet by mouth at bedtime as needed (Heartburn). - amLODIPine (NORVASC) 5 mg tablet Take 1 tablet by mouth once daily. - losartan (COZAAR) 100 mg tablet Take 1 tablet by mouth once daily. - multivit-min/folic/vit K/lycop (MEN'S MULTIVITAMIN ORAL) Take by mouth. - docosahexaenoic acid/epa (FISH OIL ORAL) Take by mouth. - lansoprazole (PREVACID) 30 mg capsule Take 1 capsule by mouth daily before breakfast. 1/2 hr before meal. - apixaban (ELIQUIS) 5 mg tab(s) Take 1 tablet by mouth two times a day. - aspirin, enteric coated (ECOTRIN LOW STRENGTH) 81 mg EC tablet Take 1 tablet by mouth once daily. - evolocumab (REPATHA SURECLICK) 140 mg/mL pen injector Inject 140 mg subcutaneously every 2 weeks. - guaiFENesin (MUCINEX) 600 mg 12 hr tablet Take 1 tablet by mouth twice daily as needed for cold/allergy symptoms. - loratadine (CLARITIN) 10 mg tablet Take 1 tablet by mouth once daily. - nitroglycerin sublingual (NITROQUICK) 0.4 mg SL tablet Dissolve 0.4 mg under the tongue every 5 minutes as needed. - ADVAIR DISKUS 500-50 mcg/dose dsdv INHALE 1 (ONE) puff EVERY 12 HOURS Problem List As Of Date 09/07/2024 Noted Resolved SUBCUTANEOUS NODULES [R22.9] 02/21/2007 Dark urine [R82.998] 10/05/2013 Abdominal pain, other specified site [R10.9] Elevated glucose [R73.09] 01/29/2020 Coronary artery disease of nome artery of kevin*01/29/2020 Mixed hyperlipidemia [E78.2] 01/29/2020 Essential hypertension [I10] 01/29/2020 S/P right coronary artery (RCA) stent placement*06/24/2021 Pure hypercholesterolemia [E78.00] 08/13/2021 Elevated PSA [R97.20] 03/11/2022 Stable angina (HCC) [I20.89] 06/10/2022 Dyspnea on exertion [R06.09] 06/10/2022 S/P CABG x 2 [Z95.1] 10/16/2022 Type 2 diabetes mellitus without complication, *12/11/2022 Prostate cancer (HCC) [C61] 07/30/2023 Postoperative atrial fibrillation (HCC) [I97.89*11/25/2023 Bilateral hip pain [M25.551, M25.552] 02/08/2024 History of colonic polyps [Z86.0100] 07/19/2024 Encounter Status:Closed by JOSEPH TUBBS on 09/19/24 Normal [facility] Amylase SerPl-cCncon 024 Amylase [Catalytic activity/Vol] 40 U/L Normal 30-104 [facility] Comment on above: Order Comment: Speci men Type: BLOOD SPECIMEN Ordering Facility: [facility] Address: [address] [place] [address] Performed By: #### 1 [id number], 60263-8, 3040-3 #### [facility] CLIA [id number] [address] [place], [place] [address] [address] [place] J CBC W Auto Differential pane l (Bld)on 09-06-2024 Basophils (Bld) [#/Vol] 0.07 10*3/uL [facility] Basophils/100 WBC (Bld) 0.9 % [facility] Differential cell count method Nom (Bld) Auto [facility] Eosinophils (Bld) [#/Vol] 0.36 10*3/uL [facility] Eosinophils/100 WBC (Bld) 4.5 % [facility] Erythrocyte distribution width (RBC) [Ratio] 13.5 % 11.5 - 15.0 % [facility] Hematocrit (Bld) [Volume fraction] 42.3 % 39.0 - 51.0 % [facility] Hemoglobin (Bld) [Mass/Vol] 13.8 g/dL 13.0 - 17.0 g/dL [facility] Immature granulocytes (Bld) [#/Vol] 0.06 10*3/uL [facility] Immature granulocytes/100 WBC (Bld) 0.8 % [facility] Interpretation and review of laboratory results Abnormal [facility] Lymphocytes (Bld) [#/Vol] 0.90 10*3/uL Low [facility] Lymphocytes/100 WBC (Bld) 11.3 % [facility] MCH (RBC) [Entitic mass] 31.1 pg 26.0 - 34.0 pg [facility] MCHC (RBC) [Mass/Vol] 32.6 g/dL 30.5 - 36.0 g/dL [facility] MCV (RBC) [Entitic vol] 95.3 fL 80.0 - 100.0 fL [facility] Monocytes (Bld) [#/Vol] 0.67 10*3/uL [facility] Monocytes/100 WBC (Bld) 8.4 % [facility] Neutrophils (Bld) [#/Vol] 5.92 10*3/uL [facility] Neutrophils/100 WBC (Bld) 74.1 % [facility] Nucleated RBC (Bld) [#/Vol] NINF [facility] Nucleated RBC/100 WBC (Bld) [Ratio] 0.0 % /100 WBC [facility] Platelet mean volume (Bld) [Entitic vol] 9.4 fL 9.0 - 12.7 fL [facility] Platelets (Bld) [#/Vol] 291 10*3/uL [facility] RBC (Bld) [#/Vol] 4.44 10*6/uL 4.20 - 6.0 0 m/uL [facility] WBC (Bld) [#/Vol] 7.98 10*3/uL [facility] Basophils (Bld) [#/Vol] 0.07 10*3/uL Normal <0.11 [facility] Comment on above: Order Comment: Speci men Type: BLOOD SPECIMEN Ordering Facility: [facility] Address: [address] [place] [address] Performed By: #### 5 [id number] #### [facility] CLIA [id number] [place] [address] [place] Basophils/100 WBC (Bld) 0.9 % Normal [facility] Comment on above: Order Comment: Speci men Type: BLOOD SPECIMEN Ordering Facility: [facility] Address: [address] [place] [address] Performed By: #### 5 7021-8 #### [facility] CLIA [id number] [address] [place] [address] [place] Differential cell count method Nom (Bld) Auto Normal [facility] Comment on above: Order Comment: Speci men Type: BLOOD SPECIMEN Ordering Facility: [facility] Address: [address] [place] [address] Performed By: #### 5 7021-8 #### [facility] CLIA [id number] [address] [place] [address] [place] Eosinophils (Bld) [#/Vol] 0.36 10*3/uL Normal <0.46 [facility] Comment on above: Order Comment: Speci men Type: BLOOD SPECIMEN Ordering Facility: [facility] Address: [address] [place] [address] Performed By: #### 5 7021-8 #### [facility] CLIA [id number] [address] [place] [address] [place] Eosinophils/100 WBC (Bld) 4.5 % Normal [facility] Comment on above: Order Comment: Speci men Type: BLOOD SPECIMEN Ordering Facility: [facility] Address: [address] [place] [address] Performed By: #### 5 7021-8 #### [facility] CLIA [id number] [address] [place] [address] [place] Erythrocyte distribution width (RBC) [Ratio] 13.5 % Normal 11.5-15.0 [facility] Comment on above: Order Comment: Speci men Type: BLOOD SPECIMEN Ordering Facility: [facility] Address: [address] [place] [address] Performed By: #### 5 7021-8 #### [facility] CLIA [id number] [address] [place] [address] [place] Hematocrit (Bld) [Volume fraction] 42.3 % Normal 39.0-51.0 [facility] Comment on above: Order Comment: Speci men Type: BLOOD SPECIMEN Ordering Facility: [facility] Address: [address] [place] [address] Performed By: #### 5 7021-8 #### [facility] CLIA [id number] [address] [place] [address] [place] Hemoglobin (Bld) [Mass/Vol] 13.8 g/dL Normal 13.0-17.0 [facility] Comment on above: Order Comment: Speci men Type: BLOOD SPECIMEN Ordering Facility: [facility] Address: [address] [place] [address] Performed By: #### 5 7021-8 #### [facility] CLIA [id number] [address] [place] [address] [place] Immature granulocytes (Bld) [#/Vol] 0.06 10*3/uL Normal <0.10 [facility] Comment on above: Order Comment: Speci men Type: BLOOD SPECIMEN Ordering Facility: [facility] Address: [address] [place] [address] Performed By: #### 5 7021-8 #### [facility] CLIA [id number] [address] [place] [address] [place] Immature granulocytes/100 WBC (Bld) 0.8 % Normal [facility] Comment on above: Order Comment: Speci men Type: BLOOD SPECIMEN Ordering Facility: [facility] Address: [address] [place] [address] Performed By: #### 5 7021-8 #### [facility] CLIA [id number] [address] [place] [address] [place] Lymphocytes (Bld) [#/Vol] 0.90 10*3/uL Low 1.00-4.00 [facility] Comment on above: Order Comment: Speci men Type: BLOOD SPECIMEN Ordering Facility: [facility] Address: [address] [place] [address] Performed By: #### 5 7021-8 #### [facility] CLIA [id number] [address] [place] [address] [place] Lymphocytes/100 WBC (Bld) 11.3 % Normal [facility] Comment on above: Order Comment: Speci men Type: BLOOD SPECIMEN Ordering Facility: [facility] Address: [address] [place] [address] Performed By: #### 5 7021-8 #### [facility] CLIA [id number] [address] [place] [address] [place] MCH (RBC) [Entitic mass] 31.1 pg Normal 26.0-34.0 [facility] Comment on above: Order Comment: Speci men Type: BLOOD SPECIMEN Ordering Facility: [facility] Address: [address] [place] [address] Performed By: #### 5 7021-8 #### [facility] CLIA [id number] [address] [place] [address] [place] MCHC (RBC) [Mass/Vol] 32.6 g/dL Normal 30.5-36.0 [facility] Comment on above: Order Comment: Speci men Type: BLOOD SPECIMEN Ordering Facility: [facility] Address: [address] [place] [address] Performed By: #### 5 7021-8 #### [facility] CLIA [id number] [address] [place] [address] [place] MCV (RBC) [Entitic vol] 95.3 fL Normal 80.0-100.0 [facility] Comment on above: Order Comment: Speci men Type: BLOOD SPECIMEN Ordering Facility: [facility] Address: [address] [place] [address] Performed By: #### 5 7021-8 #### [facility] CLIA [id number] [address] [place] [address] [place] Monocytes (Bld) [#/Vol] 0.67 10*3/uL Normal <0.87 [facility] Comment on above: Order Comment: Speci men Type: BLOOD SPECIMEN Ordering Facility: [facility] Address: [address] [place] [address] Performed By: #### 5 7021-8 #### [facility] CLIA [id number] [address] [place] [address] [place] Monocytes/100 WBC (Bld) 8.4 % Normal [facility] Comment on above: Order Comment: Speci men Type: BLOOD SPECIMEN Ordering Facility: [facility] Address: [address] [place] [address] Performed By: #### 5 7021-8 #### [facility] CLIA [id number] [address] [address] [place] Neutrophils (Bld) [#/Vol] 5.92 10*3/uL Normal 1.45-7.50 [facility] Comment on above: Order Comment: Speci men Type: BLOOD SPECIMEN Ordering Facility: [facility] Address: [address] [place] [address] Performed By: #### 5 7021-8 #### [facility] CLIA [id number] [address] [place] [address] [place] Neutrophils/100 WBC (Bld) 74.1 % Normal [facility] Comment on above: Order Comment: Speci men Type: BLOOD SPECIMEN Ordering Facility: [facility] Address: [address] [place] [address] Performed By: #### 5 7021-8 #### [facility] CLIA [id number] [address] [place] [address] [place] Nucleated RBC (Bld) [#/Vol] 10*3/uL Normal <0.01 [facility] Comment on above: Order Comment: Speci men Type: BLOOD SPECIMEN Ordering Facility: [facility] Address: [address] [place] [address] Performed By: #### 5 7021-8 #### [facility] CLIA [id number] [address] [place] [address] [place] Nucleated RBC/100 WBC (Bld) [Ratio] 0.0 /100 WBC Normal [facility] Comment on above: Order Comment: Speci men Type: BLOOD SPECIMEN Ordering Facility: [facility] Address: [address] [place] [address] Performed By: #### 5 7021-8 #### [facility] CLIA [id number] [address] [place] [address] [place] Platelet mean volume (Bld) [Entitic vol] 9.4 fL Normal 9.0-12.7 [facility] Comment on above: Order Comment: Speci men Type: BLOOD SPECIMEN Ordering Facility: [facility] Address: [address] [place] [address] Performed By: #### 5 7021-8 #### [facility] CLIA [id number] [address] [place] [address] [place] Platelets (Bld) [#/Vol] 291 10*3/uL Normal 150-400 [facility] Comment on above: Order Comment: Speci men Type: BLOOD SPECIMEN Ordering Facility: [facility] Address: [address] [place] [address] Performed By: #### 5 7021-8 #### [facility] CLIA [id number] [address] [place] [address] [place] RBC (Bld) [#/Vol] 4.44 10*6/uL Normal 4.20-6.00 [facility] Comment on above: Order Comment: Speci men Type: BLOOD SPECIMEN Ordering Facility: [facility] Address: [address] [place] [address] Performed By: #### 5 7021-8 #### [facility] CLIA [id number] [address] [place] [address] [place] WBC (Bld) [#/Vol] 7.98 10*3/uL Normal 3.70-11.00 [facility] Comment on above: Order Comment: Speci men Type: BLOOD SPECIMEN Ordering Facility: [facility] Address: [address] [place] [address] Performed By: #### 5 7021-8 #### [facility] CLIA [id number] [address] [place] [address] [place] CNOVon 09-06-2024 CNOV Office Visit (FAMPWS ) -- DENTON WESLEY ([id number]) 1950 M Date Time Provider Department 09/06/24 3:00 PM GERRI CURRY During your visit today, we recorded the following information about you: Pulse Respiration Blood pressure Weight 81/minute 16/minute 132/82 105.6 kg Gerri Curry APRN.TECHNICAL SUPPORT CONSULTANT 09/06/2024 6:13 PM Signed This is a 74 year old male who presents today with: Patient presents with: Acute Visit: upper abdomen pain HISTORY OF PRESENT ILLNESS: Denton Wesley is a 74 year old male. Patient presents with: Acute Visit: upper abdomen pain Here in the office for epigastric pain. Started a couple of weeks ago. Dull ache, pressure all the time. Pressure is constant but pain seems to wax and wane. Pain worse after eating. Mild nausea at times. Will radiate to RUQ. Taking Prevacid 30 mg at bedtime. has had acid reflux while sleeping, seems to wax and wane. Will vomit when sleeping. Has not noticed heartburn during the day. Does struggle with constipation at times. Using Dulcolax as needed. Having a BM daily. Has noticed weight gain. History of AAA, following with Vascular Surgery, Dr. Arreaga, will get repeat US in 1 year. PAST MEDICAL HISTORY: PAST MEDICAL HISTORY Diagnosis Date Abdominal pain, other specified site Asthma Awareness under anesthesia CAD (coronary artery disease) Cholelithiasis 09/25/2013 Colitis Diabetes mellitus (HCC) type 2 diet controlled Elevated prostate specific antigen (PSA) Esophageal reflux Gastroesophageal reflux Hypertension Impotence of organic origin Impotence Nocturia SUJEY (obstructive sleep apnea) Post-void dribbling Prostate cancer (HCC) RUQ abdominal pain 09/25/2013 PAST SURGICAL HISTORY Procedure Laterality Date CABG (2) VEIN GRAFTS AND ARTERIAL GRAFT(S 10/16/2022 COLONOSCOPY FLX DX W/COLLJ SPEC WHEN PFRMD Colonoscopy Dr. Ferreira ESOPHAGOGASTRODUODENOSCOPY TRANSORAL DIAGNOSTIC EGD Dr. Ferreira LAPAROSCOPY SURG CHOLECYSTECTOMY 09/25/2013 PAST SURGICAL HISTORY OF IANDD left hand PAST SURGICAL HISTORY OF Removal cyst on back PROSTATE BIOPSY ANNIE 07/14/2022 STENT PLACEMENT 4 Stents ALLERGIES Gemfibrozil, Rosuvastatin, Simvastatin, Imdur [Isosorbide], Penicillins, and Pravastatin MEDICATIONS Current Outpatient Medications Medication Sig amLODIPine (NORVASC) 5 mg tablet Take 1 tablet by mouth once daily. amoxicillin-clavulanate potassium (AUGMENTIN) 875-125 mg per tablet Take 875 mg by mouth three times a day. losartan (COZAAR) 100 mg tablet Take 1 tablet by mouth once daily. multivit-min/folic/vit K/lycop (MEN'S MULTIVITAMIN ORAL) Take by mouth. docosahexaenoic acid/epa (FISH OIL ORAL) Take by mouth. lansoprazole (PREVACID) 30 mg capsule Take 1 capsule by mouth daily before breakfast. 1/2 hr before meal. apixaban (ELIQUIS) 5 mg tab(s) Take 1 tablet by mouth two times a day. aspirin, enteric coated (ECOTRIN LOW STRENGTH) 81 mg EC tablet Take 1 tablet by mouth once daily. evolocumab (REPATHA SURECLICK) 140 mg/mL pen injector Inject 140 mg subcutaneously every 2 weeks. guaiFENesin (MUCINEX) 600 mg 12 hr tablet Take 1 tablet by mouth twice daily as needed for cold/allergy symptoms. loratadine (CLARITIN) 10 mg tablet Take 1 tablet by mouth once daily. nitroglycerin sublingual (NITROQUICK) 0.4 mg SL tablet Dissolve 0.4 mg under the tongue every 5 minutes as needed. ADVAIR DISKUS 500-50 mcg/dose dsdv INHALE 1 (ONE) puff EVERY 12 HOURS No current facility-administered medications for this visit. FAMILY HISTORY Problem Relation Age of Onset Colon Cancer Mother Heart Mother Ovarian cancer Mother Prostate Cancer Brother Stroke Brother Emphysema Father Social History Tobacco Use Smoking status: Every Day Current packs/day: 0.25 Average packs/day: 0.3 packs/day for 1 year (0.3 ttl pk-yrs) Types: Cigarettes Start date: 08/25/2023 Smokeless tobacco: Never Tobacco comments: Resumed last week after the of his spouse Vaping Use Vaping status: Never Used Substance Use Topics Alcohol use: Yes Comment: 1 beer in the evening occasionally Drug use: No REVIEW OF SYSTEMS GENERAL: + Weight Gain HEENT: Negative for frequent or significant headaches, No changes in hearing or vision. NECK: Negative for lumps, goiter, pain and significant neck swelling RESPIRATORY: Negative for cough, hemoptysis, wheezing, dyspnea or shortness of breath CARDIOVASCULAR: Negative for chest pain, leg swelling, orthopnea, or palpitations GI: + Epigastric pain, Constipation, N/V, Heartburn : No history of dysuria, frequency or incontinence MUSCULOSKELETAL: Negative for joint pain or swelling. SKIN: Negative for lesions, rash, and itching ENDOCRINE: Negative for cold or heat intolerance, polyuria, polydipsia and goiter NEURO: No history of headaches, syncope, paralysis, seizures or tremors (more content not included)... Normal [facility] Comprehensive metabolic 2000 panelon 09-06-2024 Albumin [Mass/Vol] 4.1 g/dL Normal 3.9-4.9 [facility] Comment on above: Order Comment: Speci men Type: BLOOD SPECIMEN Ordering Facility: [facility] Address: [address] [place] [address] Performed By: #### 1 798-8, 15805-3, 3040-3 #### [facility] CLIA [id number] [address] [place] [address] [place] ALP [Catalytic activity/Vol] 69 U/L Normal 38-113 [facility] Comment on above: Order Comment: Speci men Type: BLOOD SPECIMEN Ordering Facility: [facility] Address: [address] [place] [address] Performed By: #### 1 798-8, 05595-2, 3040-3 #### [facility] CLIA [id number] [address] [place] [address] [place] ALT [Catalytic activity/Vol] 60 U/L High 10-54 [facility] Comment on above: Order Comment: Speci men Type: BLOOD SPECIMEN Ordering Facility: [facility] Address: [address] [place] [address] Performed By: #### 1 798-8, 53118-1, 3040-3 #### [facility] CLIA [id number] [address] [place], [place] [id number] [place] Anion gap [Moles/Vol] 11 mmol/L Normal 8-15 [facility] Comment on above: Order Comment: Speci men Type: BLOOD SPECIMEN Ordering Facility: [facility] Address: [address] [place] [address] Performed By: #### 1 798-8, 64073-2, 3040-3 #### [facility] CLIA [id number] [address] [place] [address] [place] AST [Catalytic activity/Vol] 38 U/L Normal 14-40 [facility] Comment on above: Order Comment: Speci men Type: BLOOD SPECIMEN Ordering Facility: [facility] Address: [address] [place] [address] Performed By: #### 1 798-8, 21653-8, 3040-3 #### [facility] CLIA [id number] [address] [place] [address] [place] Bilirubin [Mass/Vol] mg/dL Low 0.2-1.3 [facility] Comment on above: Order Comment: Speci men Type: BLOOD SPECIMEN Ordering Facility: [facility] Address: [address] [place] [address] Performed By: #### 1 798-8, 58295-5, 3040-3 #### [facility] CLIA [id number] [address] [place] [address] [place] Calcium [Mass/Vol] 9.4 mg/dL Normal 8.5-10.2 [facility] Comment on above: Order Comment: Speci men Type: BLOOD SPECIMEN Ordering Facility: [facility] Address: [address] [place] [address] Performed By: #### 1 798-8, 91095-3, 3040-3 #### [facility] CLIA [id number] [address] [place], [place] [address] [place] Chloride [Moles/Vol] 107 mmol/L Normal 98-107 [facility] Comment on above: Order Comment: Speci men Type: BLOOD SPECIMEN Ordering Facility: [facility] Address: [address] [place] [address] Performed By: #### 1 798-8, 08627-6, 3040-3 #### [facility] CLIA [id number] [address] [place] [address] [place] CO2 [Moles/Vol] 25 mmol/L Normal 22-30 [facility] Comment on above: Order Comment: Speci men Type: BLOOD SPECIMEN Ordering Facility: [facility] Address: [address] [place] [address] Performed By: #### 1 798-8, 58537-8, 3040-3 #### [facility] CLIA [id number] [address] [place] [address] [place] Creatinine [Mass/Vol] 0.75 mg/dL Normal 0.73-1.22 [facility] Comment on above: Order Comment: Speci men Type: BLOOD SPECIMEN Ordering Facility: [facility] Address: [address] [place] [address] Performed By: #### 1 798-8, 23054-3, 3040-3 #### [facility] CLIA [id number] [address] [place] [address] [place] Creatinine and Glomerular filtration rate.predicted panel (S/P/Bld) 95 mL/min/1.73m??? Normal >=60 [facility] Comment on above: Order Comment: Speci men Type: BLOOD SPECIMEN Ordering Facility: [facility] Address: [address] [place] [address] Result Comment: Pat mated Glomerular Filtration Rate (eGFR) is calculated using the 2020 CKD-EPI creatinine equation. This equation utilizes serum creatinine, sex, and age as parameters. The creatinine assay has traceable calibration to isotope dilution-mass spectrometry. Refer to KDIGO guidelines for clinical interpretation. In patients with unstable renal function, e.g. those with acute kidney injury, the eGFR may not accurately reflect actual GFR. Performed By: #### 1 798-8, 56031-7, 3039-3 #### [facility] CLIA [id number] [address] [address] [place] Glucose [Mass/Vol] 171 mg/dL High 74-99 [facility] Comment on above: Order Comment: Rashaun aranda Type: BLOOD SPECIMEN Ordering Facility: [facility] Address: [address] [place] [address] Result Comment: The [place] Diabetes Association (ADA) provides guidance for cutoff values for fasting glucose and random glucose. The ADA defines fasting as no caloric intake for at least 8 hours. Fasting plasma glucose results between 100 to 125 mg/dL indicate increased risk for diabetes (prediabetes). Fasting plasma glucose results greater than or equal to 126 mg/dL meet the criteria for diagnosis of diabetes. In the absence of unequivocal hyperglycemia, results should be confirmed by repeat testing. In a patient with classic symptoms of hyperglycemia or hyperglycemic crisis, random plasma glucose results greater than or equal to 200 mg/dL meet the criteria for diagnosis of diabetes. Reference: Standards of Medical Care in Diabetes 2016, [place] Diabetes Association. Diabetes Care. 2016.39(Suppl 1). Performed By: #### 1 798-8, 01510-7, 3039-3 #### [facility] CLIA [id number] [address] [place], [place] [address] [place] Potassium [Moles/Vol] 4.7 mmol/L Normal 3.7-5.1 [facility] Comment on above: Order Comment: Rashaun aranda Type: BLOOD SPECIMEN Ordering Facility: [facility] Address: [address] [place] [address] Performed By: #### 1 798-8, 70475-1, 3039-3 #### [facility] CLIA [id number] [address] [address] [place] Protein [Mass/Vol] 6.9 g/dL Normal 6.3-8.0 [facility] Comment on above: Order Comment: Speci men Type: BLOOD SPECIMEN Ordering Facility: [facility] Address: [address] [place] [address] Performed By: #### 1 798-8, 43751-7, 3039-3 #### [facility] CLIA [id number] [address] [place] [address] [place] Sodium [Moles/Vol] 143 mmol/L Normal 136-144 [facility] Comment on above: Order Comment: Speci men Type: BLOOD SPECIMEN Ordering Facility: [facility] Address: [address] [place] [address] Performed By: #### 1 798-8, 87060-8, 3039-3 #### [facility] CLIA [id number] [address] [place] [address] [place] Urea nitrogen [Mass/Vol] 22 mg/dL Normal 9-24 [facility] Comment on above: Order Comment: Speci men Type: BLOOD SPECIMEN Ordering Facility: [facility] Address: [address] [place] [address] Performed By: #### 1 798-8, 92205-3, 3039-3 #### [facility] CLIA [id number] [address] [place] [address] [place] HbA1c (Bld)on 09-06-2024 Average glucose Estimated from glycated hemoglobin (Bld) [Mass/Vol] 154 mg/dL Normal [facility] Comment on above: Order Comment: Speci men Type: BLOOD SPECIMEN Ordering Facility: [facility] Address: [address] [place] [address] Result Comment: eAG: (Estimated average glucose) is a calculated value from HgbA1c and is home office representative of the average blood glucose level in the last 2-3 month period. Performed By: #### 5 5454-3 #### [facility] CLIA [id number] [address] [place] [address] [place] HbA1c (Bld) [Mass fraction] 7.0 % High 4.3-5.6 [facility] Comment on above: Order Comment: Rashaun aranda Type: BLOOD SPECIMEN Ordering Facility: [facility] Address: [address] [place] [address] Result Comment: [place] Diabetes Association guidelines indicate that patients with HgbA1c in the range 5.7-6.4% are at increased risk for development of diabetes, and intervention by lifestyle modification may be beneficial. HgbA1c greater or equal to 6.5% is considered diagnostic of diabetes. Performed By: #### 5 5454-3 #### [facility] CLIA [id number] [address] [place] [address] [place] Lipase SerPl-cCncon 09-06-20 24 Lipase [Catalytic activity/Vol] 54 U/L Normal 16-61 [facility] Comment on above: Order Comment: Rashaun aranda Type: BLOOD SPECIMEN Ordering Facility: [facility] Address: [address] [place] [address] Performed By: #### 1 798-8, 87570-3, 3040-3 #### [facility] CLIA [id number] [address] [place] [address] [place] CNOVon 09-04-2024 CNOV Office Visit (GUY ) -- DENTON WESLEY ([id number]) 1950 M Date Time Provider Department 09/04/24 8:30 AM JERE RUST During your visit today, we recorded the following information about you: Pulse Blood pressure Weight Height 76/minute 150/84 105 kg 1.803 m Jere Rust, OIL TREATER.[facility] 09/04/2024 1:27 PM [facility] [place] Vickie Soto Department of Cardiovascular Medicine SECTION OF CLINICAL CARDIOLOGY OUTPATIENT VISIT DATE September 04, 2024 OUTPATIENT VISIT TYPE ESTABLISHED PRIMARY CARE PHYSICIAN: Cali Cordero [address] [place] [address] CHIEF COMPLAINT: Chest pains HISTORY OF PRESENT ILLNESS: Mr. Wesley is a 74 year old male with history of CAD, S/P PCI (2015), S/P CABG x2 (10/16/22), paroxysmal atrial fibrillation, HTN, HLD, and T2DM who presents today for a cardiovascular medicine follow-up visit. He was last seen in the office on 01/24/2024 at which time he noted worsening fatigue and volume overload. At that time he was started on HCTZ 12.5 mg daily and baseline labs were obtained. He unfortunately was unable to tolerate the hydrochlorothiazide thus was changed to spironolactone 25 mg daily. He has had no hospitalizations or procedures since his last office visit. He reached out to the office last week with concerns of chest pain for which appointment was made. He describes the chest discomfort as a dull ache/burning sensation on the left side of his chest that occasionally radiates to his neck. This typically occurs with exertion although he notices it most when he sits to rest. It takes up to 30 minutes of rest for the pain to resolve. He has not taken sublingual nitroglycerin for this. He notes that it is similar to his prior angina although also different as it is not as intense and does not radiate strongly up his neck. He notes occasional palpitations since surgery which are unchanged from prior. He has lightheadedness if he moves positions too quickly but denies any presyncope or syncope. He is not regularly monitoring his heart rate or blood pressure at home. He continues to smoke about a half a pack a day but notes he is interested in quitting and is thinking about switching over to vaping instead. He denies any shortness of breath, lower extremity edema, orthopnea, or PND. Subjective PAST MEDICAL HISTORY Diagnosis Date Abdominal pain, other specified site Asthma Awareness under anesthesia CAD (coronary artery disease) Cholelithiasis 09/25/2013 Colitis Diabetes mellitus (HCC) type 2 diet controlled Elevated prostate specific antigen (PSA) Esophageal reflux Gastroesophageal reflux Hypertension Impotence of organic origin Impotence Nocturia SUJEY (obstructive sleep apnea) Post-void dribbling Prostate cancer (HCC) RUQ abdominal pain 09/25/2013 PAST SURGICAL HISTORY Procedure Laterality Date CABG (2) VEIN GRAFTS AND ARTERIAL GRAFT(S 10/16/2022 COLONOSCOPY FLX DX W/COLLJ SPEC WHEN PFRMD Colonoscopy Dr. Ferreira ESOPHAGOGASTRODUODENOSCOPY TRANSORAL DIAGNOSTIC EGD Dr. Ferreira LAPAROSCOPY SURG CHOLECYSTECTOMY 09/25/2013 PAST SURGICAL HISTORY OF IANDD left hand PAST SURGICAL HISTORY OF Removal cyst on back PROSTATE BIOPSY GUKI 07/14/2022 STENT PLACEMENT 4 Stents Social History Tobacco Use Smoking status: Every Day Current packs/day: 0.25 Average packs/day: 0.3 packs/day for 1 year (0.3 ttl pk-yrs) Types: Cigarettes Start date: 08/25/2023 Smokeless tobacco: Never Tobacco comments: Resumed last week after the of his spouse Vaping Use Vaping status: Never Used Substance Use Topics Alcohol use: Yes Comment: 1 beer in the evening occasionally Drug use: No FAMILY HISTORY Problem Relation Age of Onset Colon Cancer Mother Heart Mother Ovarian cancer Mother Prostate Cancer Brother Stroke Brother Emphysema Father ALLERGIES: ALLERGIES Allergen Reactions Gemfibrozil Intolerance Rosuvastatin Intolerance Simvastatin Intolerance Imdur [Isosorbide] Intolerance Headaches, upset stomach, fatigue Penicillins Intolerance passed out and felt like I had the flu Pt states he's no longer allergic to this, he's taken tests w/out issues. Pravastatin Myalgia MEDICATIONS: losartan (COZAAR) 100 mg tablet Take 1 tablet by mouth once daily. multivit-min/folic/vit K/lycop (MEN'S MULTIVITAMIN ORAL) Take by mouth. docosahexaenoic acid/epa (FISH OIL ORAL) Take by mouth. lansoprazole (PREVACID) 30 mg capsule Take 1 capsule by mouth daily before breakfast. 1/2 hr before meal. apixaban (ELIQUIS) 5 mg tab(s) Take 1 tablet by mouth two times a day. aspirin, enteric coated (ECOTRIN LOW STRENGTH) 81 mg EC tablet Take 1 tablet by mouth once daily. evolocumab (REPATHA SURECLICK) 140 mg/mL pen injector Inject 1 (more content not included)... Normal [facility] [id number] 09-04-2024 ECG01 Ventricular Rate : 7 6 BPM Atrial Rate : 76 BPM P-R Interval : 164 ms QRS Duration : 102 ms Q-T Interval : 414 ms QTC Calculation(Bazett) : 465 ms Calculated P Johnson : 48 degrees Calculated R Johnson : 31 degrees Calculated T Johnson : 57 degrees NORMAL SINUS RHYTHM POOR R WAVE PROGRESSION Confirmed by MD MARIN QARAB ([id number]) on 09/06/2024 11:40:55 AM NAME : DENTON WESLEY PID : [id number] : 1950 Gender : Male Race : ORD : Procedure Date : Sep 04 2024 08:45:27 Edit Date : Sep 06 2024 11:40:57 Diagnosis: NORMAL SINUS RHYTHM POOR R WAVE PROGRESSION Confirmed by MD MARIN QARAB ([id number]) on 09/06/2024 11:40:55 AM Test Reason : Location : 211 : [facility] Overread By : MD MARIN QARAB Edited By : MD MARIN QARAB Referred By : JERE RUST Acquired by : Patricia BENAVIDES [facility] Pulmonary Visit Reporton Pulmonary Visit Report [facility] [place] [address] [place] [address]. [address] [place] [address] OFFICE VISIT Date of Service: 09/01/24 MR#: [id number] Acct: [id number] Name: DENTON WESLEY Rep #: [id number] : 1950 Provider: LENNOX Velazquez Age/Sex: 74/M [facility] Status: Signed with Addenda ADDENDUM by Trudy Arteaga on 09/01/24 at 0839 Office Procedure Documentation entered by Trudy Arteaga 09/01/24 08:39: Asthma Injection Procedure: Details:: Patient presented for Xolair injection. Patient tolerated treatment well. The patient was monitored for 15 minutes after treatment. Patient shows no signs of adverse reaction. Reviewed signs and symptoms of reaction. Patient instructed to call the office with new or worsening symptoms. Patient advised to report to the emergency department during after hours if necessary. Patient departed from the office with no signs of distress. Injections Is this a patient provided medication?: Yes Office Meds omalizumab 150 mg subcutaneous solution Performing Provider: Kate Velazquez [employer] CARRIER, [employer] CAR[employer]ER-C Performing Location: [facility] Administered by: Trudy Arteaga on 09/01/24 08:33 Dose Route Admin Location Dispensed Lot Number Expiration Date ZULMA Walker ufacturer 300 mg subcut left arm 1 ea [id number] 03/04/25 05045-351-68 [employer]. Date cc: Dr. Cali Cordero MD * Signed Assessment and Plan Assessment and Plan (1) Smoking greater than 20 pack years: Status: Chronic Comment: 12/05 ppd quit 2013 Plan: He is appropriate for LDCT, ordered accordingly. Follow-up in 1 month to discuss test results. (2) Severe persistent asthma: Status: Chronic Qualifiers: Asthma complication type: unspecified Qualified Code(s): J45.50 - Severe persistent asthma, uncomplicated Comment: On Xolair Plan: Stable, no signs of exacerbation of asthma today. No change in maintenance medications, continue Advair and Xolair. No additional testing at this time. Contact the office with any signs of new or worsening symptoms. Plan to follow-up in 6 months for continued monitoring of his response to Xolair therapy. This can be arranged at his next office visit. (3) Obesity: Status: Chronic Qualifiers: Body mass index: BMI 33.0-33.9 Obesity classification: adult class 1 (BMI 30 - 34.9) Obesity type: due to excess calories Serious obesity comorbidity presence: with serious comorbidity Qualified Code(s): E66.09 - Other obesity due to excess calories; Z68.33 - Body mass index [BMI] 33.0-33.9, adult Plan: Complicates exam, plan, care and prognosis. Continue to encourage weight loss. Orders: Orders Xolair Injection Today J45.50 - Severe persistent asthma, uncomplicated Low Dose CT Lung Screening Today F17.200 - Nicotine dependence, unspecified, uncomplicated, F17.210 - Nicotine dependence, cigarettes, uncomplicated Medications: New omalizumab 300 mg subcut ONCE 1 ea 0RF J45.50 - Severe persistent asthma, uncomplicated HPI HPI Comments Details: This patient presents to the office today for follow-up of his severe persistent asthma. He is ambulatory and currently on room air. He has not been seen in the ED or urgent care for any respiratory illness. He has not required any antibiotics or prednisone for any breathing problems. He is compliant with use of Advair twice daily. He does report rinsing his mouth out after each use. He denies any medication side effect such as sore throat or thrush. He has not needed to use his albuterol rescue inhaler. He is compliant with the use of Xolair injections once monthly. He denies any shortness of breath. He reports a daily cough productive of white-colored sputum but denies any hemoptysis. He reports some occasional wheezing, more prevalent when lying down. He denies any chest tightness, chest pain or palpitations. He also denies any fever, chills or body aches. The patient reports a smoking history. He smoked 3/4 pack daily and quit smoking approximately 10 years ago. This would make him eligible for LDCT. Intake Vital Signs 06/21/24 13:50 09/01/24 07:27 Height 6 ft 6 ft Weight: 223 lb 228 lb BMI 30.2 30.9 BP 156/82 H 168/89 H Blood Pressure Location Rt brachial Lt brachial Position Sitting Sitting Respiration 18 Pulse 73 75 Pulse Source Monitor Monitor Temp 97.4 F L 97.3 F L Temperature Source Temporal Artery Pulse Oximetry (%) 96 97 Oxygen Delivery Method room air room air Intake Visit Reasons: 6 m fu/injection [employer] Representatives Required: No Accompanied by: Self Is patient in pain?: No Allergies gemfibrozil Adverse Reaction (Severe, Verified 09/01/24 08:01) Severe nausea, flu like sx and fatigue rosuvastatin (From Crestor (more content not included)... Normal [facility] CNOVon 08-15-2024 CNOV Office Visit (VASSWS ) -- DENTON WESLEY ([id number]) 1950 M Date Time Provider Department 08/15/24 3:30 PM MORIAH ARREAGA During your visit today, we recorded the following information about you: Pulse Blood pressure 71/minute 155/78 Moriah Arreaga, DO 09/13/2024 5:15 PM Signed [facility] [place] DEPARTMENT OF VASCULAR SURGERY OUTPATIENT VISIT DATE August 15, 2024 OUTPATIENT VISIT TYPE CONSULTATION SERVICE DATE: 08/15/2024 SERVICE TIME: 3:44 PM PRIMARY CARE PHYSICIAN: Cali Cordero MD REFERRING PROVIDER: Gerri Curry [address] [facility] [id number] Consult requested for an opinion regarding the evaluation and treatment of the above. My final impression and recommendations will be communicated back to the requesting physician by way of the shared medical record or letter via US mail. CHIEF COMPLAINT: Small AAA HISTORY OF PRESENT ILLNESS: Vascular consultation at the request of Dr. Gerri Curry. A copy of this consultation note will be provided to the requesting physician by way of shared Medical record or letter to requesting physician via US mail. Mr. Wesley is a 74 year old male who is seen today for abdominal aortic aneurysm. He denies any complaints. Denies significant claudication. He was diagnosed with diverticulitis and on CT scan they found incidental small infrarenal AAA. No significant family history of aneurysmal disease PAST MEDICAL HISTORY Diagnosis Date Abdominal pain, other specified site Asthma Awareness under anesthesia CAD (coronary artery disease) Cholelithiasis 09/25/2013 Colitis Diabetes mellitus (HCC) type 2 diet controlled Elevated prostate specific antigen (PSA) Esophageal reflux Gastroesophageal reflux Hypertension Impotence of organic origin Impotence Nocturia SUJEY (obstructive sleep apnea) Post-void dribbling Prostate cancer (HCC) RUQ abdominal pain 09/25/2013 PAST SURGICAL HISTORY Procedure Laterality Date CABG (2) VEIN GRAFTS AND ARTERIAL GRAFT(S 10/16/2022 COLONOSCOPY FLX DX W/COLLJ SPEC WHEN PFRMD Colonoscopy Dr. Ferreira ESOPHAGOGASTRODUODENOSCOPY TRANSORAL DIAGNOSTIC EGD Dr. Ferreira LAPAROSCOPY SURG CHOLECYSTECTOMY 09/25/2013 PAST SURGICAL HISTORY OF IANDD left hand PAST SURGICAL HISTORY OF Removal cyst on back PROSTATE BIOPSY GUKI 07/14/2022 STENT PLACEMENT 4 Stents SOCIAL HISTORY: Social History Tobacco Use Smoking status: Every Day Current packs/day: 0.25 Average packs/day: 0.3 packs/day for 1 year (0.2 ttl pk-yrs) Types: Cigarettes Start date: 08/25/2023 Smokeless tobacco: Never Tobacco comments: Resumed last week after the of his spouse Vaping Use Vaping status: Never Used Substance Use Topics Alcohol use: Yes Comment: 1 beer in the evening occasionally Drug use: No FAMILY HISTORY Problem Relation Age of Onset Colon Cancer Mother Heart Mother Ovarian cancer Mother Prostate Cancer Brother Stroke Brother Emphysema Father MEDICATIONS: amoxicillin-clavulanate potassium (AUGMENTIN) 875-125 mg per tablet Take 875 mg by mouth three times a day. losartan (COZAAR) 100 mg tablet Take 1 tablet by mouth once daily. multivit-min/folic/vit K/lycop (MEN'S MULTIVITAMIN ORAL) Take by mouth. docosahexaenoic acid/epa (FISH OIL ORAL) Take by mouth. lansoprazole (PREVACID) 30 mg capsule Take 1 capsule by mouth daily before breakfast. 1/2 hr before meal. spironolactone (ALDACTONE) 25 mg tablet Take 1 tablet by mouth once daily. (Patient not taking: Reported on 07/12/2024) apixaban (ELIQUIS) 5 mg tab(s) Take 1 tablet by mouth two times a day. aspirin, enteric coated (ECOTRIN LOW STRENGTH) 81 mg EC tablet Take 1 tablet by mouth once daily. evolocumab (REPATHA SURECLICK) 140 mg/mL pen injector Inject 140 mg subcutaneously every 2 weeks. guaiFENesin (MUCINEX) 600 mg 12 hr tablet Take 1 tablet by mouth twice daily as needed for cold/allergy symptoms. loratadine (CLARITIN) 10 mg tablet Take 1 tablet by mouth once daily. nitroglycerin sublingual (NITROQUICK) 0.4 mg SL tablet Dissolve 0.4 mg under the tongue every 5 minutes as needed. ADVAIR DISKUS 500-50 mcg/dose dsdv INHALE 1 (ONE) puff EVERY 12 HOURS ALLERGIES: ALLERGIES Allergen Reactions Gemfibrozil Intolerance Rosuvastatin Intolerance Simvastatin Intolerance Imdur [Isosorbide] Intolerance Headaches, upset stomach, fatigue Penicillins Intolerance passed out and felt like I had the flu Pt states he's no longer allergic to this, he's taken tests w/out issues. Pravastatin Myalgia REVIEW of SYSTEM: Constitutional: No weight loss, malaise or fevers. HEENT: Negative for frequent or significant headaches, Negative for nasal discharge or nose bleeds, Eyes Positive for recent change in vision , Ears Positive for hearing loss Respiratory: Negative for shortness (more content not included)... Normal [facility] ANES POSTPROC EVALon 024 ANES POSTPROC EVAL HNO ID: [id number] Author: OLU BUSCH DO Service: Anesthesiology Author Type: Anesthesiologist Type: Anesthesia Postprocedure Evaluation Filed: 07/19/2024 13:44 Note Text: POST ANESTHESIA EVALUATION NOTE : 1950 Procedure Summary Date: 07/19/24 Room / Location: [facility] Anesthesia Start: 1004 Anesthesia Stop: 1050 Procedure: COLONOSCOPY SCREENING Diagnosis: History of colonic polyps Screening for colon cancer (Screening for colorectal malignant neoplasm) Scheduled Providers: Debo Rodriguez MD; Olu Busch DO; Ramón Horvath APRN.LEAN SIX SIGMA BLACK BELT Responsible Provider: Olu Busch DO Anesthesia Type: MAC ASA Status: 3 Anesthesia Type: MAC Last Vitals Vitals Value Taken Time BP 172/83 07/19/24 1131 Temp 36.7 ?C (98.1 ?F) 07/19/24 1049 HR SpO2 59 07/19/24 1120 Resp 18 07/19/24 1120 SpO2 97 % 07/19/24 1131 Vitals shown include unfiled device data. Post Anesthesia Patient Status Patient Evaluation: PACU. PACU/ICU Patient Condition: stable. Anticipated Disposition: phase 2 then home. Neurological Status: aware and responsive. Pulmonary Status: breathing comfortably on room air Airway Control: returned to baseline unsupported. Cardiovascular Status: stable. Pain Management: clinically adequate Postoperative Hydration: acceptable. Intraoperative Events: no significant anesthesia events Post Operative Nausea/Vomiting Status: no significant post operative nausea or vomiting Recommendation: continue current plan of care and further care per PACU/ICU/floor team. Anesthesia Observations No Documentation SIGNATURE: Olu Busch DO PATIENT NAME: Denton Wesley DATE: July 19, 2024 TIME: 1:44 PM CSN: [id number] Normal [facility] ANES PRE-OPon 07-19-2024 ANES PRE-OP HNO ID: [id number] Author: OLU BUSCH DO Service: Anesthesiology Author Type: Anesthesiologist Type: Anesthesia Preprocedure Evaluation Filed: 07/19/2024 10:31 Note Text: ANESTHESIOLOGY DAY OF SURGERY NOTE : 1950 Procedure Information Anesthesia Start Date/Time: 07/19/24 1004 Scheduled providers: Debo Rodriguez MD; Olu Busch DO; Ramón Horvath APRN.LE[employer] S[employer]MA BLACK BELT Procedure: COLONOSCOPY SCREENING Location: [facility] Estimated body mass index is 31.52 kg/m? as calculated from the following: Height as of this encounter: 180.3 cm (5' 11). Weight as of this encounter: 102.5 kg (226 lb). Most recent hematocrit and potassium results: Hematocrit 39.8 06/07/2024 Hematocrit (POCT) 31 10/16/2022 Potassium 4.3 06/07/2024 Potassium (POCT) 3.3 10/16/2022 Relevant Problems CARDIO (+) 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) (+) Dyspnea on exertion (+) Essential hypertension (+) Postoperative atrial fibrillation (HCC) (+) S/P CABG x 2 (+) Stable angina (HCC) ENDO (+) Type 2 diabetes mellitus without complication, without long-term current use of insulin (HCC) NEURO-PSYCH (+) History of colonic polyps PULMONARY (+) Dyspnea on exertion I - PHYSICAL EVALUATION AIRWAY Patient intubated: No. Tracheostomy tube not present Mallampati: III. TM distance: >3 FB. Neck ROM: full ROM without neurological symptoms. Mouth opening: adequate. Short neck: no. Thick neck: no DENTAL Dental findings: missing tooth/teeth and poor dentition. II - ANESTHESIA PLAN ASA Score: 3 Anesthetic Plan: MAC NPO Status: adequate Beta Ari Monitoring Plan Monitoring plan: standard ASA. Post Procedure Analgesic Plan Postoperative analgesic plan: parenteral or oral opioids and per surgical service. Informed Consent Anesthetic risks, benefits, alternatives, personnel and consent discussed: yes. Patient / Responsible Republican agrees to proceed: yes Patient / Surrogate agrees to blood products: blood products not planned DNR status not reviewed with patient and/or family prior to surgery. Significant changes in the patient condition since the History and Physical, not otherwise documented in primary service progress note: no. Potential Anesthesia issues that may suggest increased risk of complications or contraindication to planned procedure: none. Vitals Value Taken Time BP 154/72 07/19/24957 Pulse Resp 20 07/19/24957 Temp 37.1 ?C (98.8 ?F) 07/19/24957 SpO2 97 % 07/19/24957 Outpatient Medications as of 07/19/2024 Medication Sig amoxicillin-clavulanate potassium (AUGMENTIN) 875-125 mg per tablet Take 875 mg by mouth three times a day. losartan (COZAAR) 100 mg tablet Take 1 tablet by mouth once daily. multivit-min/folic/vit K/lycop (MEN'S MULTIVITAMIN ORAL) Take by mouth. docosahexaenoic acid/epa (FISH OIL ORAL) Take by mouth. lansoprazole (PREVACID) 30 mg capsule Take 1 capsule by mouth daily before breakfast. 1/2 hr before meal. spironolactone (ALDACTONE) 25 mg tablet Take 1 tablet by mouth once daily. (Patient not taking: Reported on 07/12/2024) apixaban (ELIQUIS) 5 mg tab(s) Take 1 tablet by mouth two times a day. aspirin, enteric coated (ECOTRIN LOW STRENGTH) 81 mg EC tablet Take 1 tablet by mouth once daily. evolocumab (REPATHA SURECLICK) 140 mg/mL pen injector Inject 140 mg subcutaneously every 2 weeks. guaiFENesin (MUCINEX) 600 mg 12 hr tablet Take 1 tablet by mouth twice daily as needed for cold/allergy symptoms. loratadine (CLARITIN) 10 mg tablet Take 1 tablet by mouth once daily. nitroglycerin sublingual (NITROQUICK) 0.4 mg SL tablet Dissolve 0.4 mg under the tongue every 5 minutes as needed. ADVAIR DISKUS 500-50 mcg/dose dsdv INHALE 1 (ONE) puff EVERY 12 HOURS Facility-Administered Medications as of 07/19/2024 Medication Dose Route Frequency NaCl 0.9% iv infusion INTRAVENOUS X (ONE-STEP ONLY) CONTINUOUS PRN propofol injection (DIPRIVAN) INTRAVENOUS PRN propofol infusion (DIPRIVAN) INTRAVENOUS X (ONE-STEP ONLY) CONTINUOUS PRN lidocaine HCl (PF) 20 mg/mL (2 %) injection INTRAVENOUS PRN labetalol injection (NORMODYNE) INTRAVENOUS PRN I have interviewed and examined the patient. I have reviewed the medical record and/or the pre-anesthesia evaluation, pertinent labs, and test results. This contains updated information obtained within 48 hours of Surgery/Procedure. SIGNATURE: Olu Busch DO PATIENT NAME: Denton Wesley DATE: July 19, 2024 TIME: 10:30 AM CSN: [id number] Normal [facility] Colonoscopyon 07-19-2024 Colonoscopy [facility] Patient Name: Denton Wesley Procedure Date: 07/19/2024 9:48 AM Date of : 1950 Admit Type: Outpatient Age: 74 Room: [facility] Gender: Male Note Status: Finalized Attending MD: Debo Rodriguez MD, [id number] Procedure: Colonoscopy Indications: Screening for colorectal malignant neoplasm Providers: Debo Rodriguez MD Patient Profile: Refer to note in patient chart for documentation of history and physical. Last Colonoscopy: more than 10 years ago. Referring Physician: Debo Rodriguez MD (Referring MD) Medicines: See the Anesthesia note for documentation of the administered medications Complications: No immediate complications. Requesting Provider: Procedure: Pre-Anesthesia Assessment: - Monitored anesthesia care under the supervision of a LEAN SIX SIGMA BLACK BELT was determined to be medically necessary for this procedure based on review of the patient's medical history, medications, and prior anesthesia history. After I obtained informed consent, the scope was passed under direct vision. Throughout the procedure, the patient's blood pressure, pulse, and oxygen saturations were monitored continuously. The was introduced through the anus and advanced to the cecum, identified by the appendiceal orifice, IC valve and transillumination. The appendiceal orifice and the rectum were photographed. The colonoscopy was performed with ease. The patient tolerated the procedure well. The quality of the bowel preparation was adequate. Scope Withdrawal Time: 0 hours 15 minutes 17 seconds Moderate Sedation: MAC anesthesia was administered by the anesthesia team. Total Procedure Duration: 0 hours 31 minutes 48 seconds Findings: The perianal and digital rectal examinations were normal. Non-bleeding internal hemorrhoids were found. Multiple medium-mouthed diverticula were found in the sigmoid colon, descending colon, transverse colon and ascending colon. A 7 to 11 mm polyp was found in the sigmoid colon. The polyp was sessile. The polyp was removed with a hot snare. Resection and retrieval were complete. Verification of patient identification for the specimen was done by the nurse. Estimated blood loss was minimal. Two sessile polyps were found in the hepatic flexure. The polyps were 4 to 11 mm in size. These polyps were removed with a hot snare. Resection and retrieval were complete. Verification of patient identification for the specimen was done by the nurse. To close a defect after polypectomy, one hemostatic clip was successfully placed (MR conditional). [facility] coordinator: [employer]. There was no bleeding at the end of the procedure. Impression: - Non-bleeding internal hemorrhoids. - Diverticulosis in the sigmoid colon, in the descending colon, in the transverse colon and in the ascending colon. - One 7 to 11 mm polyp in the sigmoid colon, removed with a hot snare. Resected and retrieved. - Two 4 to 11 mm polyps at the hepatic flexure, removed with a hot snare. Resected and retrieved. Clip (MR conditional) was placed. Clip community center coordinator: [employer]. Recommendation: - Repeat colonoscopy date to be determined after pending pathology results are reviewed for surveillance. - - Follow up with Maddi Bro NP, may be via televisit for discussion of pathology results and determination of timing of future endoscopies - Patient has a contact number available for emergencies. The signs and symptoms of potential delayed complications were discussed with the patient. Return to normal activities tomorrow. Written discharge instructions were provided to the patient. - Continue present medications. - Resume previous diet. Procedure Code(s): --- Professional --- 87036, Colonoscopy, flexible; with removal of tumor(s), polyp(s), or other lesion(s) by snare technique Diagnosis Code(s): --- Professional --- K57.30, Diverticulosis of large intestine without perforation or abscess without bleeding D12.3, Benign neoplasm of transverse colon (hepatic flexure or splenic flexure) D12.5, Benign neoplasm of sigmoid colon K64.8, Other hemorrhoids Z12.11, Encounter for screening for malignant neoplasm of colon CPT copyright 2020 [employer] [place] [employer]. All rights reserved. The codes documented in this report are preliminary and upon force adjustment supervisor review may be revised to meet current compliance requirements. Attending Participation: I personally performed the entire procedure. Scope In: 10:11:29 AM Scope Out: 10:43:17 AM MD Debo Segura MD 07/19/2024 10:48:46 AM This report has been signed electronically by Debo Rodriguez MD Number of Addenda: 0 Note Initiated On: 07/19/2024 9:48 AM Estimated Blood Loss: Estimated blood loss was minimal. [facility] Colonoscopy Study observatio non 07-19-2024 [facility] Gastrointestinal Endoscopy Patient Name: Denton Wesley Procedure Date: 07/19/2024 9:48 AM Date of : 1950 Admit Type: Outpatient Age: 74 Room: [facility] Gender: Male Note Status: Finalized Attending MD: Debo Rodriguez MD, [id number] Procedure: Colonoscopy Indications: Screening for colorectal malignant neoplasm Providers: Debo Rodriguez MD Patient Profile: Refer to note in patient chart for documentation of history and physical. Last Colonoscopy: more than 10 years ago. Referring Physician: Debo Rodriguez MD (Referring MD) Medicines: See the Anesthesia note for documentation of the administered medications Complications: No immediate complications. Requesting Provider: Procedure: Pre-Anesthesia Assessment: - Monitored anesthesia care under the supervision of a LEAN SIX SIGMA BLACK BELT was determined to be medically necessary for this procedure based on review of the patient's medical history, medications, and prior anesthesia history. After I obtained informed consent, the scope was passed under direct vision. Throughout the procedure, the patient's blood pressure, pulse, and oxygen saturations were monitored continuously. The was introduced through the anus and advanced to the cecum, identified by the appendiceal orifice, IC valve and transillumination. The appendiceal orifice and the rectum were photographed. The colonoscopy was performed with ease. The patient tolerated the procedure well. The quality of the bowel preparation was adequate. Scope Withdrawal Time: 0 hours 15 minutes 17 seconds Moderate Sedation: MAC anesthesia was administered by the anesthesia team. Total Procedure Duration: 0 hours 31 minutes 48 seconds Findings: The perianal and digital rectal examinations were normal. Non-bleeding internal hemorrhoids were found. Multiple medium-mouthed diverticula were found in the sigmoid colon, descending colon, transverse colon and ascending colon. A 7 to 11 mm polyp was found in the sigmoid colon. The polyp was sessile. The polyp was removed with a hot snare. Resection and retrieval were complete. Verification of patient identification for the specimen was done by the nurse. Estimated blood loss was minimal. Two sessile polyps were found in the hepatic flexure. The polyps were 4 to 11 mm in size. These polyps were removed with a hot snare. Resection and retrieval were complete. Verification of patient identification for the specimen was done by the nurse. To close a defect after polypectomy, one hemostatic clip was successfully placed (MR conditional). Clip community center coordinator: [employer]. There was no bleeding at the end of the procedure. Impression: - Non-bleeding internal hemorrhoids. - Diverticulosis in the sigmoid colon, in the descending colon, in the transverse colon and in the ascending colon. - One 7 to 11 mm polyp in the sigmoid colon, removed with a hot snare. Resected and retrieved. - Two 4 to 11 mm polyps at the hepatic flexure, removed with a hot snare. Resected and retrieved. Clip (MR conditional) was placed. Clip community center coordinator: [employer]. Recommendation: - Repeat colonoscopy date to be determined after pending pathology results are reviewed for surveillance. - - Follow up with Maddi Bro NP, may be via televisit for discussion of pathology results and determination of timing of future endoscopies - Patient has a contact number available for emergencies. The signs and symptoms of potential delayed complications were discussed with the patient. Return to normal activities tomorrow. Written discharge instructions were provided to the patient. - Continue present medications. - Resume previous diet. Procedure Code(s): --- Professional --- 86679, Colonoscopy, flexible; with removal of (more content not included)... [facility] Radiology Study observation (narrative) [facility] GLUCOSE, BLOOD (POC)on 07-19 Glucose [Mass/Vol] 155 mg/dL Abnormal 74 - 99 mg/dL [facility] Comment on above: Location:[facility], [address] [place] [address], [address] The Accu-Chek Inform II glucose meter has not been approved for testing on patients receiving intensive medical intervention or therapy and results from this point of care glucose test should not be used for patient management decisions in these cases. Inaccurate results may also occur from other interfering factors, such as N-acetylcysteine (blood concentrations of greater than 5mg/dL), galactose, extremes of hematocrit (<10 or >65), or high doses of ascorbic acid (vitamin C) greater than 3mg/dL. Consider alternate testing mechanisms (e.g. core lab, blood gas instrument) in the above situations. Interpretation and review of laboratory results Abnormal [facility] Glucose [Mass/Vol] 135 mg/dL Abnormal 74 - 99 mg/dL [facility] Comment on above: Location:[facility], [address], [place], [address] The Accu-Chek Inform II glucose meter has not been approved for testing on patients receiving intensive medical intervention or therapy and results from this point of care glucose test should not be used for patient management decisions in these cases. Inaccurate results may also occur from other interfering factors, such as N-acetylcysteine (blood concentrations of greater than 5mg/dL), galactose, extremes of hematocrit (<10 or >65), or high doses of ascorbic acid (vitamin C) greater than 3mg/dL. Consider alternate testing mechanisms (e.g. core lab, blood gas instrument) in the above situations. Interpretation and review of laboratory results Abnormal [facility] HISTORY PHYSICALon HISTORY PHYSICAL HNO ID: [id number] Author: DEBO RODRIGUEZ MD Service: General Surgery Author Type: Physician Type: H&P Filed: 07/19/2024 10:05 Note Text: The patient wishes to undergo colonoscopy for screening for colonoscopy. He last had a colonoscopy 10 years ago The patient denies blood in stools, denies abdominal pain, and denies changes in bowel habits. The patient notes no colon cancer in immediate family. -however, his mother had ovarian cancer spread to colon in her 70s PAST MEDICAL HISTORY PAST MEDICAL HISTORY Diagnosis Date Abdominal pain, other specified site Asthma Awareness under anesthesia CAD (coronary artery disease) Cholelithiasis 09/25/2013 Colitis Diabetes mellitus (HCC) type 2 diet controlled Elevated prostate specific antigen (PSA) Esophageal reflux Gastroesophageal reflux Hypertension Impotence of organic origin Impotence Nocturia SUJEY (obstructive sleep apnea) Post-void dribbling Prostate cancer (HCC) RUQ abdominal pain 09/25/2013 PAST SURGICAL HISTORY PAST SURGICAL HISTORY Procedure Laterality Date CABG (2) VEIN GRAFTS AND ARTERIAL GRAFT(S 10/16/2022 COLONOSCOPY FLX DX W/COLLJ SPEC WHEN PFRMD Colonoscopy Dr. Ferreira ESOPHAGOGASTRODUODENOSCOPY TRANSORAL DIAGNOSTIC EGD Dr. Ferreira LAPAROSCOPY SURG CHOLECYSTECTOMY 09/25/2013 PAST SURGICAL HISTORY OF IANDD left hand PAST SURGICAL HISTORY OF Removal cyst on back PROSTATE BIOPSY GUKI 07/14/2022 STENT PLACEMENT 4 Stents FAMILY HISTORY FAMILY HISTORY Problem Relation Age of Onset Colon Cancer Mother Heart Mother Ovarian cancer Mother Prostate Cancer Brother Stroke Brother Emphysema Father SOCIAL HISTORY Social History Tobacco Use Smoking status: Every Day Current packs/day: 0.25 Average packs/day: 0.3 packs/day for 0.8 years (0.2 ttl pk-yrs) Types: Cigarettes Start date: 08/25/2023 Smokeless tobacco: Never Tobacco comments: Resumed last week after the of his spouse Vaping Use Vaping status: Never Used Substance Use Topics Alcohol use: Yes Comment: 1 beer in the evening occasionally Drug use: No CURRENT MEDICATIONS Current Outpatient Medications Medication Sig Dispense Refill losartan (COZAAR) 100 mg tablet Take 1 tablet by mouth once daily. 90 tablet 3 multivit-min/folic/vit K/lycop (MEN'S MULTIVITAMIN ORAL) Take by mouth. docosahexaenoic acid/epa (FISH OIL ORAL) Take by mouth. lansoprazole (PREVACID) 30 mg capsule Take 1 capsule by mouth daily before breakfast. 1/2 hr before meal. 30 capsule 11 spironolactone (ALDACTONE) 25 mg tablet Take 1 tablet by mouth once daily. 30 tablet 11 apixaban (ELIQUIS) 5 mg tab(s) Take 1 tablet by mouth two times a day. 60 tablet 11 aspirin, enteric coated (ECOTRIN LOW STRENGTH) 81 mg EC tablet Take 1 tablet by mouth once daily. evolocumab (REPATHA SURECLICK) 140 mg/mL pen injector Inject 140 mg subcutaneously every 2 weeks. 2 Each 12 guaiFENesin (MUCINEX) 600 mg 12 hr tablet Take 1 tablet by mouth twice daily as needed for cold/allergy symptoms. loratadine (CLARITIN) 10 mg tablet Take 1 tablet by mouth once daily. nitroglycerin sublingual (NITROQUICK) 0.4 mg SL tablet Dissolve 0.4 mg under the tongue every 5 minutes as needed. ADVAIR DISKUS 500-50 mcg/dose dsdv INHALE 1 (ONE) puff EVERY 12 HOURS No current facility-administered medications for this visit. ALLERGIES ALLERGIES Allergen Reactions Gemfibrozil Intolerance Rosuvastatin Intolerance Simvastatin Intolerance Imdur [Isosorbide] Intolerance Headaches, upset stomach, fatigue Penicillins Intolerance passed out and felt like I had the flu Pt states he's no longer allergic to this, he's taken tests w/out issues. Pravastatin Myalgia REVIEW OF SYSTEMS: General - denies fevers, denies anorexia, denies weight loss Cardiovascular - denies chest pain, has history of ID, intermittent atrial fibrillation Pulmonary - denies shortness of breath, denies coughing up blood Gastrointestinal - denies abdominal pain, denies hematemesis, denies blood in stools Neurological - denies seizures, denies history of CVA Genitourinary - denies burning with urination, denies blood in urine Hematological - denies spontaneous/prolonged bleeding, denies history of blood transfusions/clots Skin - denies nonhealing skin wounds Musculoskeletal - no bone fractures Endocrine - denies diabetes, no thyroid problems Psychological - denies hallucinations PHYSICAL FINDINGS OF NOTE: Patient reported Ht: 5'11 Wt: 220# General - WD/WN in no apparent distress, alert and oriented Head - Normocephalic. EOM intact with sclera clear. Mouth with mucus membranes moist. Neck - supple with no jugular venous distention noted. Trachea is midline. Lungs - normal breath sounds, normal respiratory motion, no adventitial sounds noted. Heart - normal heart sounds. Regular rate. Abdomen - soft and benign. Extremities - no pitting edema noted. Skin - Normal (more content not included)... [facility] SURGICAL PATHOLOGYon CASE REPORT [facility] Comment on above: Order Comment: Speci men Type: TISSUE SPECIMEN Ordering Facility: [facility] Address: [address] [place] [address] Result Comment: Surg [facility] Pathology Report Case: [id number] Authorizing Provider: Debo Rodriguez MD Collected: 07/19/2024 10:25 AM Ordering Location: [facility] Endoscopy Received: 07/19/2024 11:21 AM Pathologist: Brock Alexandre MD Specimens: A) - Colon, Sigmoid, Polyp B) - Colon, Hepatic Flexure, Polyp, multiple polyps C) - Rectum, Polyp Performed By: #### S #### [facility] CLIA [id number] [address] [place] [address] FINAL DIAGNOSIS [facility] Comment on above: Order Comment: Speci manoj Type: TISSUE SPECIMEN Ordering Facility: [facility] Address: [address] [place] [address] Result Comment: A. S igmoid colon, polypectomy: -Fragments of tubular adenoma B. Hepatic flexure, polypectomy: -Fragments of tubular adenoma C. Rectum, polypectomy: -Crushed/cauterized tissue, cannot rule out adenoma Performed By: #### S #### [facility] CLIA [id number] [address] [place] [address] FINAL PERFORMING LAB [facility] Comment on above: Order Comment: Eduardi manoj Type: TISSUE SPECIMEN Ordering Facility: [facility] Address: [address] [place] [address] Result Comment: Diag nostic interpretation performed at [facility], [address] [place] [address] CLIA# [id number] Flag Signaler: Ozzie Figueroa M.D. Performed By: #### S #### [facility] CLIA [id number] [address] [place] [address] GROSS DESCRIPTION [facility] Comment on above: Order Comment: Rashaun aranda Type: TISSUE SPECIMEN Ordering Facility: [facility] Address: [address] [place] [address] Result Comment: A. C olon, Sigmoid, Polyp Received in formalin are two toro polypoid segments of tissue measuring 0.6 x 0.5 x 0.5 cm and 0.5 x 0.3 x 0.1 cm. No stalks are noted. The apparent lines of resection are noted. The specimens are bisected. Also received in the same container is a toro, soft tissue measuring 0.3 x 0.1 x 0.1 cm. Totally submitted in one cassette. B. Colon, Hepatic Flexure, Polyp Received in formalin is a pink polypoid segment of tissue measuring 0.6 x 0.4 x 0.4 cm. No stalk is noted. The apparent line of resection is noted. The specimen is bisected. Also received in the same container is a toro, soft tissue measuring 0.3 x 0.2 x 0.2 cm. Totally submitted in one cassette. C. Rectum, Polyp Received in formalin is one piece of toro, soft tissue measuring 0.2 x 0.3 x 0.2 cm. Totally submitted in one cassette. CL July 19, 2024 4:46 PM Gross examination performed at [facility], [address] [place] [address], [place] [address] Performed By: #### S #### [facility] CLIA [id number] [address] [place] [address] [id number] [facility] XR Chest PA and Lateralon IMPRESSION: No acute radiographic abnormality. 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 Transcribe Date/Time: May 19 2024 3:41P Dictated by : TODD REYES MD This examination was interpreted and the report reviewed and electronically signed by: TODD REYES MD on May 19 2024 3:44PM [facility] DIVISION OF RADIOLOGY * * *Final Report* * * DATE OF EXAM: May 19 2024 3:35PM WOX 5291 - XR CHEST 2V FRONTAL/LAT / PROCEDURE REASON: Community acquired pneumonia of right lung, unspecified part of lung * * * * Physician Interpretation * * * * EXAMINATION: CHEST RADIOGRAPH (2 VIEW FRONTAL & LATERAL) CLINICAL HISTORY: Community acquired pneumonia of right lung, unspecified part of lung MQ: XC2_6 EXAM DATE/TIME: 05/19/2024 3:35 PM COMPARISON: 04/26/2024 RESULT: Lines, tubes, and devices: Mediastinal wires are seen Lungs and pleura: No consolidation. No lung mass. No pleural effusion. No pneumothorax. Cardiomediastinal silhouette: Normal cardiomediastinal silhouette. Bones and soft tissues: Unremarkable. DIVISION OF RADIOLOGY Provider, [facility] - 05/19/2024 * * *Final Report* * * DATE OF EXAM: May 19 2024 3:35PM WOX 5291 - XR CHEST 2V FRONTAL/LAT / PROCEDURE REASON: Community acquired pneumonia of right lung, unspecified part of lung * * * * Physician Interpretation * * * * EXAMINATION: CHEST RADIOGRAPH (2 VIEW FRONTAL & LATERAL) CLINICAL HISTORY: Community acquired pneumonia of right lung, unspecified part of lung MQ: XC2_6 EXAM DATE/TIME: 05/19/2024 3:35 PM COMPARISON: 04/26/2024 RESULT: Lines, tubes, and devices: Mediastinal wires are seen Lungs and pleura: No consolidation. No lung mass. No pleural effusion. No pneumothorax. Cardiomediastinal silhouette: Normal cardiomediastinal silhouette. Bones and soft tissues: Unremarkable. IMPRESSION IMPRESSION: No acute radiographic abnormality. 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: [facility] Transcribe Date/Time: May 19 2024 3:41P Dictated by : TODD REYES MD This examination was interpreted and the report reviewed and electronically signed by: TODD REYES MD on May 19 2024 3:44PM [facility] Radiology Study observation (narrative) [facility] XR Chest PA and LateralOrder ed By: [facility] Provider on 05-19-2024 [facility] XR Chest PA and Lateralon IMPRESSION: Multiple nodular opacities overlying the right upper lung and hazy opacities in the lingula. Pulmonary infection is among the top differential consideration. Please clinically correlate. 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: [facility] Transcribe Date/Time: Apr 26 2024 11:41A Dictated by : KRISTIN CHO MD This examination was interpreted and the report reviewed and electronically signed by: KRISTIN CHO MD on Apr 26 2024 11:44AM [facility] DIVISION OF RADIOLOGY * * *Final Report* * * DATE OF EXAM: Apr 26 2024 11:17AM WOX 5291 - XR CHEST 2V FRONTAL/LAT / PROCEDURE REASON: Acute cough * * * * Physician Interpretation * * * * EXAMINATION: CHEST RADIOGRAPH (2 VIEW FRONTAL & LATERAL) CLINICAL HISTORY: Acute cough MQ: XC2_6 EXAM DATE/TIME: 04/26/2024 11:17 AM COMPARISON: Chest x-ray on 11/16/2022 RESULT: Lines, tubes, and devices: None. Lungs and pleura: There are multiple nodular opacities overlying the right upper lung. Hazy opacities again noted in the left lower lung, likely involving the lingula. No mass lesion identified. No pleural effusions or pneumothorax. Cardiomediastinal silhouette: Stable cardiomediastinal silhouette. There appears be a coronary stent in place. Bones and soft tissues: Status post median sternotomy. The spine shows mild degenerative changes. DIVISION OF RADIOLOGY Provider, Renu Glez - 04/26/2024 * * *Final Report* * * DATE OF EXAM: Apr 26 2024 11:17AM WOX 5291 - XR CHEST 2V FRONTAL/LAT / PROCEDURE REASON: Acute cough * * * * Physician Interpretation * * * * EXAMINATION: CHEST RADIOGRAPH (2 VIEW FRONTAL & LATERAL) CLINICAL HISTORY: Acute cough MQ: XC2_6 EXAM DATE/TIME: 04/26/2024 11:17 AM COMPARISON: Chest x-ray on 11/16/2022 RESULT: Lines, tubes, and devices: None. Lungs and pleura: There are multiple nodular opacities overlying the right upper lung. Hazy opacities again noted in the left lower lung, likely involving the lingula. No mass lesion identified. No pleural effusions or pneumothorax. Cardiomediastinal silhouette: Stable cardiomediastinal silhouette. There appears be a coronary stent in place. Bones and soft tissues: Status post median sternotomy. The spine shows mild degenerative changes. IMPRESSION IMPRESSION: Multiple nodular opacities overlying the right upper lung and hazy opacities in the lingula. Pulmonary infection is among the top differential consideration. Please clinically correlate. 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 Transcribe Date/Time: Apr 26 2024 11:41A Dictated by : KRISTIN CHO MD This examination was interpreted and the report reviewed and electronically signed by: KRISTIN CHO MD on Apr 26 2024 11:44AM EST [facility] Radiology Study observation (narrative) [facility] XR Chest PA and LateralOrder ed By: [facility] Provider on 04-26-2024 [facility] XR HIP BILATERAL 5V PEL/AP/L AT EACH HIPon 01-12-2024 IMPRESSION: 1. No acute radiographic abnormality of the bilateral hips 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 Transcribe Date/Time: Jan 12 2024 8:15P Dictated by : NAHOMY HENDERSON MD This examination was interpreted and the report reviewed and electronically signed by: NAHOMY HENDERSON MD on Jan 12 2024 8:16PM EST DIVISION OF RADIOLOGY * * *Final Report* * * DATE OF EXAM: Jan 10 2024 11:32AM WOX [id number] - XR HIP ANGELA 5V PEL+ AP/LAT EA HIP / PROCEDURE REASON: multiple diagnoses * * * * Physician Interpretation * * * * HIP RADIOGRAPHS - BILATERAL HISTORY: Bilateral hip pain TECHNOLOGIST PROVIDED HISTORY (if applicable): Pt. states chronic bilat hip pain. No injury. TECHNIQUE: XR HIP ANGELA 5V PEL+ AP/LAT EA HIP COMPARISON: None available RESULT: There is cam morphology of the left and right femoral head. Hip joints appear maintained with small acetabular osteophytes Pelvic ring is intact. SI joints and symphysis pubis appear within normal limits. Distal lumbar spondylosis DIVISION OF RADIOLOGY Provider, Renu Glez - 01/12/2024 * * *Final Report* * * DATE OF EXAM: Jan 10 2024 11:32AM WOX 5353 - XR HIP ANGELA 5V PEL+ AP/LAT EA HIP / PROCEDURE REASON: multiple diagnoses * * * * Physician Interpretation * * * * HIP RADIOGRAPHS - BILATERAL HISTORY: Bilateral hip pain TECHNOLOGIST PROVIDED HISTORY (if applicable): Pt. states chronic bilat hip pain. No injury. TECHNIQUE: XR HIP ANGELA 5V PEL+ AP/LAT EA HIP COMPARISON: None available RESULT: There is cam morphology of the left and right femoral head. Hip joints appear maintained with small acetabular osteophytes Pelvic ring is intact. SI joints and symphysis pubis appear within normal limits. Distal lumbar spondylosis IMPRESSION IMPRESSION: 1. No acute radiographic abnormality of the bilateral hips 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: [facility] Transcribe Date/Time: Jan 12 2024 8:15P Dictated by : NAHOMY HENDERSON MD This examination was interpreted and the report reviewed and electronically signed by: NAHOMY HENDERSON MD on Jan 12 2024 8:16PM EST [facility] XR HIP BILATERAL 5V PEL/AP/L AT EACH HIPOrdered By: Ccf Provider on 01-12-2024 [facility] XR HIP BILATERAL 5V PEL/AP/L AT EACH HIPon 01-10-2024 Radiology Study observation (narrative) [facility] CNOVon 11-25-2023 CNOV Office Visit (CARMED ) -- DENTON WESLEY ([id number]) 1950 M Date Time Provider Department 11/25/23 10:20 AM JUAN A PACHECO During your visit today, we recorded the following information about you: Pulse Blood pressure Weight Height 74/minute 126/78 98.3 kg 1.803 m Juan A Pacheco DO 11/25/2023 11:06 AM Signed [facility] OUTPATIENT VISIT DATE November 25, 2023 PRIMARY CARE PHYSICIAN: Cali Cordero [address] [place] [address] HISTORY OF PRESENT ILLNESS: Mr. Wesley is a 73 year old male. The patient returns [place] history of coronary disease status post remote stenting to the RCA followed by eventual coronary bypass grafting x 2 approximately 13 months ago. Additional history includes postoperative atrial fibrillation, hypertension, hyperlipidemia and prediabetes. He unfortunately is in the throes of treatment for prostate cancer with radiation at this time. He denies chest discomfort, dyspnea, orthopnea, paroxysmal nocturnal dyspnea, near-syncope or syncope. He continues to have palpitations once weekly and describes with flip-flops. He recent underwent telemetry monitoring for which symptoms did not yield any discernible dysrhythmia. EKG performed today demonstrates normal sinus rhythm at 74 bpm with possible LVH and left atrial enlargement. Similar to previous. PLAN AND RECOMMENDATIONS: The patient remained stable without symptoms that would suggest angina or cardiac decompensation on his current optimal medical regimen which we recommend continuing with the following changes below. Currently he should be on twice daily Eliquis. We discussed that with him and correct as such. We have discontinued Plavix in favor of aspirin lifelong 81 mg daily. Lastly, he has had a statin allergy for which he was tried on Praluent which he states his insurance will only pay for Repatha. We therefore wrote for that medication to start as soon as he obtains it. Heart rate and blood pressure otherwise appear favorable for which we made no additions or changes to his current optimal medical regimen which which should continue as planned. He continues to have rare palpitations for which we will not add medications at this time as we did discuss the need for improvement of diet and lifestyle which may help suppress such. If not, we would consider the addition of a low-dose beta-ari. We will follow-up with him in 2 months time for repeat evaluation. Dietary and lifestyle modification was otherwise reemphasized to facilitate risk factor reduction. Vitals: BP 126/78 Pulse 74 Ht 180.3 cm (5' 11) Wt 98.3 kg (216 lb 11.4 oz) SpO2 99% BMI 30.23 kg/m? Physical Exam Vitals reviewed. Constitutional: General: He is not in acute distress. Appearance: He is well-developed. He is not diaphoretic. HENT: Head: Normocephalic and atraumatic. Right Ear: External ear normal. Left Ear: External ear normal. Nose: Nose normal. Eyes: General: No scleral icterus. Right eye: No discharge. Left eye: No discharge. Pupils: Pupils are equal, round, and reactive to light. Neck: Thyroid: No thyromegaly. Vascular: No JVD. Cardiovascular: Rate and Rhythm: Normal rate and regular rhythm. Heart sounds: No murmur heard. No friction rub. No gallop. Pulmonary: Effort: Pulmonary effort is normal. No respiratory distress. Breath sounds: Normal breath sounds. No wheezing or rales. Abdominal: General: Bowel sounds are normal. Palpations: Abdomen is soft. Musculoskeletal: General: Normal range of motion. Cervical back: Neck supple. Skin: General: Skin is warm and dry. Coloration: Skin is not pale. Neurological: Mental Status: He is alert and oriented to person, place, and time. Cranial Nerves: No cranial nerve deficit. Psychiatric: Mood and Affect: Mood is not anxious or depressed. Behavior: Behavior normal. Thought Content: Thought content normal. Judgment: Judgment normal. Review of Systems Constitutional: Negative for activity change, appetite change, fatigue and unexpected weight change. HENT: Negative for ear pain and trouble swallowing. Eyes: Negative for pain and visual disturbance. Respiratory: Negative for chest tightness and shortness of breath. Cardiovascular: Positive for palpitations. Negative for chest pain and leg swelling. Gastrointestinal: Negative for abdominal pain and blood in stool. Endocrine: Negative for cold intolerance and heat intolerance. Genitourinary: Negative for dysuria, hematuria and scrotal swelling. Musculoskeletal: Negative for arthralgias and myalgias. Skin: Negative for pallor and rash. Allergic/Immunologic: Negative for immunocompromised state. Neurological: Negative for dizziness, syncope and ligh (more content not included)... Normal [facility] EKGon 11-25-2023 Electrocardiogram Ventricular Rate : 7 4 BPM Atrial Rate : 74 BPM P-R Interval : 160 ms QRS Duration : 96 ms Q-T Interval : 398 ms QTC Calculation(Bazett) : 441 ms Calculated P Johnson : 53 degrees Calculated R Johnson : 14 degrees Calculated T Johnson : 68 degrees NORMAL SINUS RHYTHM POSSIBLE LEFT ATRIAL ENLARGEMENT LEFT VENTRICULAR HYPERTROPHY ABNORMAL ECG NO PREVIOUS ECGS AVAILABLE Confirmed by MD PACHECO GREGORY () on 11/30/2023 8:24:01 AM NAME : DENTON WESLEY PID : [id number] : 1950 Gender : Male Race : ORD : Procedure Date : Nov 25 2023 22:44:30 Edit Date : Nov 30 2023 08:24:02 Diagnosis: NORMAL SINUS RHYTHM POSSIBLE LEFT ATRIAL ENLARGEMENT LEFT VENTRICULAR HYPERTROPHY ABNORMAL ECG NO PREVIOUS ECGS AVAILABLE Confirmed by MD PACHECO GREGORY () on 11/30/2023 8:24:01 AM Test Reason : Location : [address] [place] [address] Overread By : MD PACHECO GREGORY Edited By : MD PACHECO GREGORY Referred By : , Acquired by : maegan pollard, [facility] Urinalysis complete panel (U )on 11-16-2023 Bacteria LM.HPF (Urine sed) [#/Area] Negative Negative /HPF [facility] Bilirubin Ql (U) Negative Negative [facility] Clarity (Unsp spec) Clear Clear [facility] Color (U) Yellow Yellow [facility] Epithelial cells LM.HPF (Urine sed) [#/Area] None Seen [facility] Glucose Test strip (U) [Mass/Vol] Negative Negative [facility] Hemoglobin Ql (U) Negative Negative [facility] Hyaline casts (Urine sed) [#/Area] 0 /[LPF] 0 /LPF [facility] Ketones Ql (U) Negative Negative [facility] Leukocyte esterase Test strip Ql (U) Negative Negative [facility] Nitrite Ql (U) Negative Negative [facility] pH (U) 5.5 [pH] <8.5 [facility] Protein (U) [Mass/Vol] Negative Negative [facility] RBC LM.HPF (Urine sed) [#/Area] 0-2 /HPF 0-2 /HPF [facility] Specific gravity (U) [Rel density] 1.018 1.005 - 1.030 [facility] Urobilinogen Ql (U) 0.2 EU/dL 0.2-1.0 EU/dL [facility] WBC LM.HPF (Urine sed) [#/Area] 0-5 /HPF 0-5 /HPF [facility] CNNURSEon 07-30-2023 CNNURSE Nurse Visit (UROLAE) -- DENTON WESLEY ([id number]) 1950 M Date Time Provider Department 07/30/23 11:15 AM NURSE UROL EXCHANGE UROLAE During your visit today, we recorded the following information about you: Tomás Adame RN 07/30/2023 11:58 AM Signed Patient given [employer] patient teaching material on Lupron. Instructed on action, s/e and s/s of allergic reaction. Patient given 45 mg Lupron injection as documented in the MAR. Patient tolerated well. Tomás Adame RN Referring Provider: CALI CORDERO [[id number]] Allergies As of Date: 07/30/2023 Noted Allergy Reaction GEMFIBROZIL 09/25/2019 5 - Intolerance ROSUVASTATIN 09/25/2019 5 - Intolerance SIMVASTATIN 09/25/2019 5 - Intolerance IMDUR (ISOSORBIDE) 03/05/2022 14 - Other: See Comments Comments: Headaches, upset stomach, fatigue PENICILLINS 02/10/2007 14 - Other: See Comments Comments: passed out and felt like I had the flu Pt states he's no longer allergic to this, he's taken tests w/out issues. PRAVASTATIN 08/07/2021 17 - Myalgia Date Reviewed: 07/30/2023 Reviewed by: Jania Pozo MD - Fully Assessed Reason for Visit: Hormone Therapy Injection [349] Prostate Cancer [590] Visit Diagnosis:Prostate cancer (HCC) [C61] Prescriptions as of 07/30/2023 - tamsulosin (FLOMAX) 0.4 mg Take 1 capsule by mouth daily at bedtime. - lansoprazole (PREVACID) 30 mg capsule Take 1 capsule by mouth daily before breakfast. 1/2 hr before meal. - losartan (COZAAR) 100 mg tablet Take 1 tablet by mouth once daily. - apixaban (ELIQUIS) 5 mg tab(s) Take 1 tablet by mouth twice daily. - clopidogrel (PLAVIX) 75 mg tablet Take 1 tablet by mouth once daily. - guaiFENesin (MUCINEX) 600 mg 12 hr tablet Take 1 tablet by mouth twice daily as needed for cold/allergy symptoms. - loratadine (CLARITIN) 10 mg tablet Take 1 tablet by mouth once daily. - nitroglycerin sublingual (NITROQUICK) 0.4 mg SL tablet Dissolve 0.4 mg under the tongue every 5 minutes as needed. - FARXIGA 10 mg tablet Take 10 mg by mouth once daily. - alirocumab (PRALUENT PEN) 75 mg/mL pen Inject 1 mL subcutaneously every other week. - ADVAIR DISKUS 500-50 mcg/dose dsdv INHALE 1 (ONE) puff EVERY 12 HOURS Facility-Administered Medications as of 07/30/2023 - perflutren lipid microspheres 1.3 mL in NaCl (PF) 0.9% 10 mL injection (DEFINITY) - sodium chloride 0.9 % (flush) 10 mL (BD POSIFLUSH) Problem List As Of Date 07/30/2023 Noted Resolved SUBCUTANEOUS NODULES [R22.9] 02/21/2007 Dark urine [R82.998] 10/05/2013 Abdominal pain, other specified site [R10.9] Elevated glucose [R73.09] 01/29/2020 Coronary artery disease of nome artery of kevin*01/29/2020 Mixed hyperlipidemia [E78.2] 01/29/2020 Essential hypertension [I10] 01/29/2020 S/P right coronary artery (RCA) stent placement*06/24/2021 Pure hypercholesterolemia [E78.00] 08/13/2021 Elevated PSA [R97.20] 03/11/2022 Stable angina (HCC) [I20.89] 06/10/2022 Dyspnea on exertion [R06.09] 06/10/2022 S/P CABG x 2 [Z95.1] 10/16/2022 Type 2 diabetes mellitus without complication, *12/11/2022 Prostate cancer (HCC) [C61] 07/30/2023 Visit Notes: >> Tomás Adame RN WedJul 30, 2023 11:51 AM Status: Signed Patient given [employer] patient teaching material on Lupron. Instructed on action, s/e and s/s of allergic reaction. Patient given 45 mg Lupron injection as documented in the MAR. Patient tolerated well. Tomás Adame RN Encounter Status:Closed by TOMÁS ADAME on 07/30/23 [facility] CNOVon 07-30-2023 OV Office Visit (UROLAE ) -- LUPILLODENTON ([id number]) 1950 M Date Time Provider Department 07/30/23 10:45 AM JANIA POZO During your visit today, we recorded the following information about you: Blood pressure Weight Height 138/82 102.1 kg 1.829 m Jania Pozo MD 07/30/2023 11:03 AM Signed [facility] UROLOGY ESTABLISHED PATIENT FOLLOW-UP NOTE PATIENT: Denton S Lupillo (73 year old) PCP: Cali Cordero MD -- SUMMARY: Former patient of Dr. Tolbert. Prostate cancer. cT1c, GG3 (2/12, 55-60%) and GG2 (3/12, 40-45%), all on left, dx's in 07/2022 for PSA=4.62; 78.8 cc, PSAD=0.06. NCCN unfavorable intermediate risk. Decipher=0.92 (high risk). Initial CT pelvis in 07/2022 and BS in 12/2022 were negative for mets. Tx was delayed due CAD s/p CABG x2 on 10/16/22, complicated by postop retention. PSMA PET-06/2023 negative for mets. PSA=7.4(06/2023). *BT=Eliquis for afib. ASSESSMENT: 1. Prostate cancer (HCC) - ICD9: 185, ICD10: C61 PLAN: #1 Chronic, unstable. The patient has selected IMRT + ADT for management of his prostate cancer. He prefers to see the radiation oncologist at [facility] in [place]. Refer to Dr. Ángela Rasmussen. The patient is agreeable to initiation of androgen deprivation therapy. The side effects of androgen deprivation therapy were discussed, including but not limited to, hot flashes, fatigue, osteoporosis, gynecomastia, loss of muscle mass, weight gain, dyslipidemia, insulin resistance, cardiovascular disease, anemia, cognitive decline, sexual dysfunction, and periodontal disease. The patient understands and wishes to proceed with therapy. Give Lupron 45 mg IM depot today. Start Calcium + vitamin D. FOLLOW UP: Return in about 6 months (around 01/29/2024) for PSA. -- CHIEF COMPLAINT: Patient presents with: Follow Up Prostate Cancer HISTORY OF PRESENT ILLNESS: Prior notes were reviewed. The patient reports doing well. MANPREET/AUASS FORMS No question data found. REVIEW OF SYSTEMS: Not applicable ALLERGIES: ALLERGIES Allergen Reactions Gemfibrozil Intolerance Rosuvastatin Intolerance Simvastatin Intolerance Imdur [Isosorbide] Other: See Comments Headaches, upset stomach, fatigue Penicillins Other: See Comments passed out and felt like I had the flu Pt states he's no longer allergic to this, he's taken tests w/out issues. Pravastatin Myalgia MEDICATIONS: tamsulosin (FLOMAX) 0.4 mgTake 1 capsule by mouth daily at bedtime.Disp: 90 capsuleRfl: 0 lansoprazole (PREVACID) 30 mg capsuleTake 1 capsule by mouth daily before breakfast. 1/2 hr before meal.Disp: 30 capsuleRfl: 11 losartan (COZAAR) 100 mg tabletTake 1 tablet by mouth once daily.Disp: 90 tabletRfl: 3 apixaban (ELIQUIS) 5 mg tab(s)Take 1 tablet by mouth twice daily.Disp: 180 tabletRfl: 3 clopidogrel (PLAVIX) 75 mg tabletTake 1 tablet by mouth once daily.Disp: 90 tabletRfl: 3 guaiFENesin (MUCINEX) 600 mg 12 hr tabletTake 1 tablet by mouth twice daily as needed for cold/allergy symptoms.Disp: Rfl: loratadine (CLARITIN) 10 mg tabletTake 1 tablet by mouth once daily.Disp: Rfl: nitroglycerin sublingual (NITROQUICK) 0.4 mg SL tabletDissolve 0.4 mg under the tongue every 5 minutes as needed.Disp: Rfl: FARXIGA 10 mg tabletTake 10 mg by mouth once daily.Disp: Rfl: alirocumab (PRALUENT PEN) 75 mg/mL penInject 1 mL subcutaneously every other week.Disp: 2 mLRfl: 11 ADVAIR DISKUS 500-50 mcg/dose dsdvINHALE 1 (ONE) puff EVERY 12 HOURSDisp: Rfl: PAST HISTORY: PAST MEDICAL HISTORY Diagnosis Date Abdominal pain, other specified site Asthma Awareness under anesthesia CAD (coronary artery disease) Cholelithiasis 09/25/2013 Colitis Diabetes mellitus (HCC) type 2 diet controlled Elevated prostate specific antigen (PSA) Esophageal reflux Gastroesophageal reflux Hypertension Impotence of organic origin Impotence Nocturia SUJEY (obstructive sleep apnea) Post-void dribbling Prostate cancer (HCC) RUQ abdominal pain 09/25/2013 PAST SURGICAL HISTORY Procedure Laterality Date CABG (2) VEIN GRAFTS AND ARTERIAL GRAFT(S 10/16/2022 COLONOSCOPY FLX DX W/COLLJ SPEC WHEN PFRMD Colonoscopy Dr. Ferreira ESOPHAGOGASTRODUODENOSCOPY TRANSORAL DIAGNOSTIC EGD Dr. Ferreira LAPAROSCOPY SURG CHOLECYSTECTOMY 09/25/2013 PAST SURGICAL HISTORY OF IANDD left hand PAST SURGICAL HISTORY OF Removal cyst on back PROSTATE BIOPSY GUKI 07/14/2022 STENT PLACEMENT 4 Stents FAMILY HISTORY Problem Relation Age of Onset Colon Cancer Mother Heart Mother Ovarian cancer Mother P (more content not included)... Normal [facility] CNPNon 07-20-2023 CNPN Telephone (Contraqer) -- LUPILLODENTON Fisher ([id number]) 1950 M Date Time Provider Department 07/20/23 JANIA POZO During your visit today, we recorded the following information about you: Jania Pozo MD 07/20/2023 11:35 AM Signed Ok, for radiation therapy, he will need hormone therapy as well. Please schedule the patient for Lupron/Eligard 6-month injection with me to discuss and with a concurrent visit with the nurse to get an injection. Please obtain prior authorization if needed. Thanks Allergies As of Date: 07/20/2023 Noted Allergy Reaction GEMFIBROZIL 09/25/2019 5 - Intolerance ROSUVASTATIN 09/25/2019 5 - Intolerance SIMVASTATIN 09/25/2019 5 - Intolerance IMDUR (ISOSORBIDE) 03/05/2022 14 - Other: See Comments Comments: Headaches, upset stomach, fatigue PENICILLINS 02/10/2007 14 - Other: See Comments Comments: passed out and felt like I had the flu Pt states he's no longer allergic to this, he's taken tests w/out issues. PRAVASTATIN 08/07/2021 17 - Myalgia Date Reviewed: 06/29/2023 Reviewed by: Jania Pozo MD - Fully Assessed Reason for Visit: Appointment [186] Prescriptions as of 07/20/2023 - lansoprazole (PREVACID) 30 mg capsule Take 1 capsule by mouth daily before breakfast. 1/2 hr before meal. - losartan (COZAAR) 100 mg tablet Take 1 tablet by mouth once daily. - apixaban (ELIQUIS) 5 mg tab(s) Take 1 tablet by mouth twice daily. - clopidogrel (PLAVIX) 75 mg tablet Take 1 tablet by mouth once daily. - guaiFENesin (MUCINEX) 600 mg 12 hr tablet Take 1 tablet by mouth twice daily as needed for cold/allergy symptoms. - loratadine (CLARITIN) 10 mg tablet Take 1 tablet by mouth once daily. - nitroglycerin sublingual (NITROQUICK) 0.4 mg SL tablet Dissolve 0.4 mg under the tongue every 5 minutes as needed. - tamsulosin (FLOMAX) 0.4 mg Take 1 capsule by mouth daily at bedtime. - FARXIGA 10 mg tablet Take 10 mg by mouth once daily. - alirocumab (PRALUENT PEN) 75 mg/mL pen Inject 1 mL subcutaneously every other week. - ADVAIR DISKUS 500-50 mcg/dose dsdv INHALE 1 (ONE) puff EVERY 12 HOURS Facility-Administered Medications as of 07/20/2023 - perflutren lipid microspheres 1.3 mL in NaCl (PF) 0.9% 10 mL injection (DEFINITY) - sodium chloride 0.9 % (flush) 10 mL (BD POSIFLUSH) Problem List As Of Date 07/20/2023 Noted Resolved SUBCUTANEOUS NODULES [R22.9] 02/21/2007 Dark urine [R82.998] 10/05/2013 Abdominal pain, other specified site [R10.9] Elevated glucose [R73.09] 01/29/2020 Coronary artery disease of nome artery of kevin*01/29/2020 Mixed hyperlipidemia [E78.2] 01/29/2020 Essential hypertension [I10] 01/29/2020 S/P right coronary artery (RCA) stent placement*06/24/2021 Pure hypercholesterolemia [E78.00] 08/13/2021 Elevated PSA [R97.20] 03/11/2022 Stable angina (HCC) [I20.89] 06/10/2022 Dyspnea on exertion [R06.09] 06/10/2022 S/P CABG x 2 [Z95.1] 10/16/2022 Type 2 diabetes mellitus without complication, *12/11/2022 Encounter Status:Closed by JANIA POZO on 07/20/23 Normal [facility] Basophil percentageOrdered B y: Roberto Harvey on 07-19-2023 Bilirubin [Mass/Vol] 0.30 mg/dL 0.20-1.00 [facility] Comment on above: For patients on eltr ombopag therapy, use of Dimension Delta TBIL is not recommended. Chloride [Moles/Vol] 104 mmol/L 98-107 [facility] Glucose [Mass/Vol] 123 mg/dL 74-106 [facility] Comment on above: Fasting Glucose resu lt from 100 to 125 mg/dL suggests IMPAIRED HOMEOSTASIS per A.D.A. criteria. Potassium [Moles/Vol] 4.2 mmol/L 3.5-5.1 [facility] Protein [Mass/Vol] 7.4 g/dL 6.4-8.2 [facility] Sodium [Moles/Vol] 138 mmol/L 136-145 [facility] Bilirubin Test strip Ql (U)O rdered By: Roberto Harvey on 07-19-2023 Bilirubin Ql (U) Negative Negative [facility] Ketones Test strip Ql (U)Ord ered By: Roberto Harvey on 07-19-2023 Ketones Ql (U) Negative Negative [facility] Laboratory - Chemistry and C hemistry - challengeOrdered By: Roberto Harvey on 07-19-2023 ALP [Catalytic activity/Vol] 59 U/L 45-117 [facility] ALT [Catalytic activity/Vol] 42 U/L 16-61 [facility] CO2 [Moles/Vol] 30.0 mmol/L 21.0-32.0 [facility] Globulin (S) [Mass/Vol] 3.7 g/dL 2.2-4.2 [facility] Urea nitrogen/Creatinine [Mass ratio] 19.4 mg/mg 10-20 [facility] Nitrite Test strip Ql (U)Ord ered By: Roberto Harvey on 07-19-2023 Nitrite Ql (U) Negative Negative [facility] No Panel InformationOrdered By: Roberto Harvey on 07-19-2023 Estimated GFR (MDRD) Amer 103 mL/min >60 [facility] Comment on above: GFR Calc Estimated GFR (MDRD) Non-Af Amer 85 mL/min >60 [facility] Comment on above: Non- GFR Calc Protein Test strip Ql (U)Ord ered By: Roberto Harvey on 07-19-2023 Protein Ql (U) Negative Negative [facility] Serum or plasma albumin faraz urement (mass/volume)Ordered By: Roberto Harvey on 07-19-2023 Albumin [Mass/Vol] 3.7 g/dL 3.2-5.0 [facility] Serum or plasma albumin/glob ulin mass ratioOrdered By: Roberto Harvey on 07-19-2023 Albumin/Globulin [Mass ratio] 1.0 {ratio} 0.9-2.4 [facility] Serum or plasma calcium faraz urement (mass/volume)Ordered By: Roberto Harvey on 07-19-2023 Calcium [Mass/Vol] 9.4 mg/dL 8.5-10.1 [facility] Serum or plasma creatinine m easurement (mass/volume)Ordered By: Roberto Harvey on 07-19-2023 Creatinine [Mass/Vol] 0.93 mg/dL 0.70-1.30 [facility] Comment on above: The validity of the calculated GFR & GFRAA in patients over 70 years has not been determined. Clinical correlation is essential. Serum or plasma urea nitroge n measurement (mass/volume)Ordered By: Roberto Harvey on 07-19-2023 Urea nitrogen [Mass/Vol] 18 mg/dL 7-18 [facility] Thin prep Papanicolaou smear with manual screeningOrdered By: Roberto Harvey on 07-19-2023 Thin prep Papanicolaou smear with manual screening 18 U/L 15-37 [facility] Thin prep Papanicolaou smear with manual screening 4 5-15 [facility] Urine blood detectionOrdered By: Roberto Harvey on 07-19-2023 RBC Ql (U) Negative Negative [facility] Urine clarityOrdered By: Macario Harvey on 07-19-2023 Clarity (U) Clear Clear [facility] Urine color determinationOrd ered By: Roberto Harvey on 07-19-2023 Color (U) Yellow Yellow [facility] Urine glucose detectionOrder ed By: Roberto Harvey on 07-19-2023 Glucose Ql (U) Normal mg/dl Normal [facility] Urine leukocyte esterase det ection by dipstickOrdered By: Roberto Harvey on 07-19-2023 Leukocyte esterase Test strip Ql (U) Negative Negative [facility] Urine pHOrdered By: Roberto Harvey on 07-19-2023 pH (U) 6.5 [pH] 5.0 - 8.0 [facility] Urine specific gravity measu rementOrdered By: Roberto Harvey on 07-19-2023 Specific gravity (U) [Rel density] 1.010 1.002-1.030 [facility] Urobilinogen Auto test strip Ql (U)Ordered By: Roberto Harvey on 07-19-2023 Urobilinogen Ql (U) Normal mg/dl Normal [facility] CNOVon 06-29-2023 CNOV Office Visit (MORRIS ) -- DENTON WESLEY ([id number]) 1950 M Date Time Provider Department 06/29/23 1:45 PM JANIA POZO During your visit today, we recorded the following information about you: Blood pressure Weight Height 132/82 102.1 kg 1.829 m Jania Pozo MD 06/29/2023 2:34 PM Signed [facility] UROLOGY ESTABLISHED PATIENT FOLLOW-UP NOTE PATIENT: Denton Wesley (73 year old) PCP: Cali Cordero MD -- SUMMARY: Former patient of Dr. Tolbert. Prostate cancer. cT1c, GG3 (2/, 55-60%) and GG2 (3/, 40-45%), all on left, dx's in 07/2022 for PSA=4.62; 78.8 cc, PSAD=0.06. NCCN unfavorable intermediate risk. Decipher=0.92 (high risk). Initial CT pelvis in 07/2022 and BS in 12/2022 were negative for mets. Tx was delayed due CAD s/p CABG x2 on 10/16/22, complicated by postop retention. PSMA PET-06/2023 negative for mets. PSA=7.4(06/2023). *BT=Eliquis for afib. ASSESSMENT: 1. Prostate cancer (HCC) - ICD9: 185, ICD10: C61 PLAN: #1 Chronic, unstable. PSMA PET and PSA results reviewed. The PSA has almost doubled over the last year, suggesting disease progression, but there is no radiographic evidence of metastatic disease, suggesting local progression only. I do not recommend delaying treatment any further due to the high risk of progression. Management options for high-risk prostate cancer were reviewed, including radical prostatectomy, IMRT with 1.5 years of ADT, and brachytherapy with adjuvant IMRT. There is a radiation oncologist (Ángela Rasmussen MD) that is local for him in [place]. The R/B/A were discussed. He needs additional time to consider his options. He prefers to call with his decision. All questions were answered. FOLLOW UP: Return for Call with decision on treatment.. -- CHIEF COMPLAINT: Patient presents with: Follow Up Prostate Cancer HISTORY OF PRESENT ILLNESS: Prior notes were reviewed. The patient reports doing well. MANPREET/AUASS FORMS No question data found. REVIEW OF SYSTEMS: Not applicable ALLERGIES: ALLERGIES Allergen Reactions Gemfibrozil Intolerance Rosuvastatin Intolerance Simvastatin Intolerance Imdur [Isosorbide] Other: See Comments Headaches, upset stomach, fatigue Penicillins Other: See Comments passed out and felt like I had the flu Pt states he's no longer allergic to this, he's taken tests w/out issues. Pravastatin Myalgia MEDICATIONS: lansoprazole (PREVACID) 30 mg capsuleTake 1 capsule by mouth daily before breakfast. 1/2 hr before meal.Disp: 30 capsuleRfl: 11 losartan (COZAAR) 100 mg tabletTake 1 tablet by mouth once daily.Disp: 90 tabletRfl: 3 apixaban (ELIQUIS) 5 mg tab(s)Take 1 tablet by mouth twice daily.Disp: 180 tabletRfl: 3 clopidogrel (PLAVIX) 75 mg tabletTake 1 tablet by mouth once daily.Disp: 90 tabletRfl: 3 guaiFENesin (MUCINEX) 600 mg 12 hr tabletTake 1 tablet by mouth twice daily as needed for cold/allergy symptoms.Disp: Rfl: loratadine (CLARITIN) 10 mg tabletTake 1 tablet by mouth once daily.Disp: Rfl: nitroglycerin sublingual (NITROQUICK) 0.4 mg SL tabletDissolve 0.4 mg under the tongue every 5 minutes as needed.Disp: Rfl: tamsulosin (FLOMAX) 0.4 mgTake 1 capsule by mouth daily at bedtime.Disp: 90 capsuleRfl: 3 FARXIGA 10 mg tabletTake 10 mg by mouth once daily.Disp: Rfl: alirocumab (PRALUENT PEN) 75 mg/mL penInject 1 mL subcutaneously every other week.Disp: 2 mLRfl: 11 ADVAIR DISKUS 500-50 mcg/dose dsdvINHALE 1 (ONE) puff EVERY 12 HOURSDisp: Rfl: PAST HISTORY: PAST MEDICAL HISTORY Diagnosis Date Abdominal pain, other specified site Asthma Awareness under anesthesia CAD (coronary artery disease) Cholelithiasis 09/25/2013 Colitis Diabetes mellitus (HCC) type 2 diet controlled Elevated prostate specific antigen (PSA) Esophageal reflux Gastroesophageal reflux Hypertension Impotence of organic origin Impotence Nocturia SUJEY (obstructive sleep apnea) Post-void dribbling Prostate cancer (HCC) RUQ abdominal pain 09/25/2013 PAST SURGICAL HISTORY Procedure Laterality Date CABG (2) VEIN GRAFTS AND ARTERIAL GRAFT(S 10/16/2022 COLONOSCOPY FLX DX W/COLLJ SPEC WHEN PFRMD Colonoscopy Dr. Ferreira ESOPHAGOGASTRODUODENOSCOPY TRANSORAL DIAGNOSTIC EGD Dr. Ferreira LAPAROSCOPY SURG CHOLECYSTECTOMY 09/25/2013 PAST SURGICAL HISTORY OF IANDD left hand PAST SURGICAL HISTORY OF Removal cyst on back PROSTATE BIOPSY GUKI 07/14/2022 STENT PLACEMENT 4 Stents FAMILY HISTORY Problem Relation Age of Onset Colon Cancer Mother Heart Mother Ovarian cancer Mother Prost (more content not included)... Normal [facility] NM PET/CT PROSTATE WBon 06-04 NM PET/CT PROSTATE WB * * *Final Report* * * DATE OF EXAM: Jun 16 2023 2:46PM [facility] 0093 - NM PET/CT PROSTATE WB / PROCEDURE REASON: C61 * * * * Physician Interpretation * * * * EXAM: NM PET/CT PROSTATE WB HISTORY: 73 [id number] man with history of prostate cancer. - Prostate cancer grade: Grade Group 3 (Erica score 4 + 3) in 07/2022 - PSA: 7.4 ng/mL (06/2023), rising - Therapy: None, treatment delayed for surgery - Prior ADT: No TECHNIQUE: 10.3 mCi of [id number] administered IV followed about 60 minutes later by PET imaging from skull vertex to proximal thighs. Free breathing low dose CT was performed without contrast for attenuation correction and anatomic localization. CT Dose-Length Product (DLP): 479 mGy*cm CT Dose Reduction Employed: Automated exposure control (AEC) COMPARISON: No previous PSMA PET/CT available CORRELATION: Whole-body bone scan 12/17/2022; CT abdomen/pelvis 02/24/2022 RESULTS: REFERENCES: SUV reference values: - Mediastinal blood pool activity (max SUV): 1.9 - Background liver activity (max SUV): 4.7 - Background salivary activity (max SUV): 20.0 Jetting Machine Operator (topogram) images: No additional findings. HEAD AND NECK: Physiologic activity in the salivary and lacrimal glands. Head: No tracer avid lesion. Lymph nodes: No tracer avid lymph nodes. Thyroid: No tracer avid lesion. Other: Bilateral paranasal turbinate resections. Completely opacified right and partially opacified left maxillary sinuses, opacification multiple ethmoid air cells, frontal, and sphenoid sinuses with low level tracer activity likely related to chronic sinonasal inflammation. CHEST: Lungs and Airways: * No tracer avid consolidation, mass, or nodule. * Stable 4 mm lateral left lower lobe nodule without increased tracer activity (CT image 164) since 02/24/2022, probably a fissural lymph node. * Please note, PET/CT is not often sensitive for pulmonary nodules less than 8 mm. Pleura: No tracer avid lesion. No pleural effusion. Mediastinum: No tracer avid mass. Lymph Nodes: No tracer avid nodes. Cardiovascular: No tracer avid lesion. Chest Wall: No tracer avid lesion. ABDOMEN AND PELVIS: Physiologic activity in the liver, spleen, GI tract and tract. Liver: No focal tracer avid liver lesion. Diffuse steatosis. Gallbladder: Cholecystectomy. Spleen: No focal tracer avid lesion. No splenomegaly. Pancreas: No tracer avid lesion. Adrenals: No tracer avid lesion. Kidneys: No focal tracer avid lesion. No hydronephrosis. GI Tract: No focal tracer avid lesion. Small hiatal hernia. No dilated bowel. Colonic diverticulosis. Mesentery/Peritoneum: No tracer avid lesion. No ascites. Vasculature: Atherosclerotic calcifications with persistent bilobed infrarenal aortic ectasia (2.9 cm). Pelvis: * Prostate: Portions partially obscured by areas of excreted activity in the bladder. Enlarged with median lobe hypertrophy. Few likely subcentimeter focal areas of mildly-moderately increased tracer activity, for reference: - Left mid/apex posteriorly (CT image 352; max SUV 5.0) - Right mid/apex anteriorly (CT image 355; max SUV 2.3) * Seminal Vesicles: No tracer avid lesion. Lymph nodes: * Upper Abdomen and Retroperitoneum: No tracer avid nodes. * Right: - Common iliac: No tracer avid nodes. - External iliac: No tracer avid nodes. - Internal iliac: No tracer avid nodes. - Obturator: No tracer avid nodes. * Left: - Common iliac: No tracer avid nodes. - External iliac: No tracer avid nodes. - Internal iliac: No tracer avid nodes. - Obturator: No tracer avid nodes. * Pre-sacral: No tracer avid nodes. * Triny-rectal: No tracer avid nodes. Abdominal Wall: No tracer avid lesion. BONE AND EXTREMITIES: No tracer avid or suspicious osseous lesion. Multifocal degenerative osseous changes. IMPRESSION: HEAD/NECK: * No PSMA-expressing metastases. CHEST: * No PSMA-expressing metastases. ABDOMENS/PELVIS: * Focal areas of PSMA expression the prostate some of which likely corresponding with known neoplasm. * No PSMA-expressing metastases. BONES/EXTREMITIES: * No PSMA-expressing metastases. 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: PSCB Transcribe Date/Time: Jun 16 2023 4:11P Dictated by : RAMÓN RHOADES DO This examination was interpreted and the report reviewed and electronically signed by: RAMÓN RHOADES DO on Jun 16 2023 4:34PM EST [id number] Normal [facility] NM PET/CT PROSTATE WHOLE BOD Y IMAGINGon 06-16-2023 [facility] CNOVon 05-25-2023 CNOV Office Visit (MORRIS ) -- DENTON WESLEY ([id number]) 1950 M Date Time Provider Department 05/25/23 11:30 AM JANIA POZO During your visit today, we recorded the following information about you: Blood pressure Weight Height 132/82 106.6 kg 1.829 m Jania Pozo MD 05/25/2023 12:09 PM Signed [facility] UROLOGY ESTABLISHED PATIENT FOLLOW-UP NOTE PATIENT: Denton Wesley (72 year old) PCP: Cali Cordero MD -- SUMMARY: Former patient of Dr. Tolbert. Prostate cancer. cT1c, GG3 (2/12, 55-60%) and GG2 (3/12, 40-45%), all on left, dx's in 07/2022 for PSA=4.62; 78.8 cc, PSAD=0.06. NCCN unfavorable intermediate risk. Decipher=0.92 (high risk). Initial CT pelvis in 07/2022 and BS in 12/2022 were negative for mets. Tx was delayed due CAD s/p CABG x2 on 10/16/22, complicated by postop retention. *BT=Eliquis for afib. ASSESSMENT: 1. Prostate cancer (HCC) - ICD9: 185, ICD10: C61 (primary diagnosis) 2. Urinary retention - ICD9: 788.20, ICD10: R33.9 PLAN: #1 Chronic, unstable, life threatening. The patient has high-risk prostate cancer (by genomic risk assessment). Treatment has been delayed ~10 months due to competing medical comorbidities (I.e. CAD). It has been 6 months since the last staging imaging. I recommend rechecking a PSA and restaging with PSMA PET CT. #2 PVR=86cc, indicating good bladder emptying. FOLLOW UP: Return in about 3 weeks (around 06/15/2023) for PET scan and PSA results to discuss treatment options (30 min). -- CHIEF COMPLAINT: Patient presents with: Follow Up Prostate Cancer HISTORY OF PRESENT ILLNESS: Prior notes were reviewed. The patient reports doing well. MANPREET/AUASS FORMS No question data found. REVIEW OF SYSTEMS: Not applicable ALLERGIES: ALLERGIES Allergen Reactions Gemfibrozil Intolerance Rosuvastatin Intolerance Simvastatin Intolerance Imdur [Isosorbide] Other: See Comments Headaches, upset stomach, fatigue Penicillins Other: See Comments passed out and felt like I had the flu Pt states he's no longer allergic to this, he's taken tests w/out issues. Pravastatin Myalgia MEDICATIONS: lansoprazole (PREVACID) 30 mg capsuleTake 1 capsule by mouth daily before breakfast. 1/2 hr before meal.Disp: 30 capsuleRfl: 11 losartan (COZAAR) 100 mg tabletTake 1 tablet by mouth once daily.Disp: 90 tabletRfl: 3 apixaban (ELIQUIS) 5 mg tab(s)Take 1 tablet by mouth twice daily.Disp: 180 tabletRfl: 3 clopidogrel (PLAVIX) 75 mg tabletTake 1 tablet by mouth once daily.Disp: 90 tabletRfl: 3 guaiFENesin (MUCINEX) 600 mg 12 hr tabletTake 1 tablet by mouth twice daily as needed for cold/allergy symptoms.Disp: Rfl: loratadine (CLARITIN) 10 mg tabletTake 1 tablet by mouth once daily.Disp: Rfl: nitroglycerin sublingual (NITROQUICK) 0.4 mg SL tabletDissolve 0.4 mg under the tongue every 5 minutes as needed.Disp: Rfl: tamsulosin (FLOMAX) 0.4 mgTake 1 capsule by mouth daily at bedtime.Disp: 90 capsuleRfl: 3 FARXIGA 10 mg tabletTake 10 mg by mouth once daily.Disp: Rfl: alirocumab (PRALUENT PEN) 75 mg/mL penInject 1 mL subcutaneously every other week.Disp: 2 mLRfl: 11 ADVAIR DISKUS 500-50 mcg/dose dsdvINHALE 1 (ONE) puff EVERY 12 HOURSDisp: Rfl: PAST HISTORY: PAST MEDICAL HISTORY Diagnosis Date Abdominal pain, other specified site Asthma Awareness under anesthesia CAD (coronary artery disease) Cholelithiasis 09/25/2013 Colitis Diabetes mellitus (HCC) type 2 diet controlled Elevated prostate specific antigen (PSA) Esophageal reflux Gastroesophageal reflux Hypertension Impotence of organic origin Impotence Nocturia SUJEY (obstructive sleep apnea) Post-void dribbling Prostate cancer (HCC) RUQ abdominal pain 09/25/2013 PAST SURGICAL HISTORY Procedure Laterality Date CABG (2) VEIN GRAFTS AND ARTERIAL GRAFT(S 10/16/2022 COLONOSCOPY FLX DX W/COLLJ SPEC WHEN PFRMD Colonoscopy Dr. Ferreira ESOPHAGOGASTRODUODENOSCOPY TRANSORAL DIAGNOSTIC EGD Dr. Ferreira LAPAROSCOPY SURG CHOLECYSTECTOMY 09/25/2013 PAST SURGICAL HISTORY OF IANDD left hand PAST SURGICAL HISTORY OF Removal cyst on back PROSTATE BIOPSY GUKI 07/14/2022 STENT PLACEMENT 4 Stents FAMILY HISTORY Problem Relation Age of Onset Colon Cancer Mother Heart Mother Ovarian cancer Mother Prostate Cancer Brother Stroke Brother Emphysema Father Social History Tobacco Use Smoking status: Former Types: Cigarettes Quit date: 10/27/2011 Years since quittin.5 Smokeless tobacco: Never Vaping Use Vaping Use: Never used Substance Use Top (more content not included)... [facility] Telephone (AGVASACC) -- DENTON WESLEY ([id number]) 1950 M Date Time Provider Department 04/05/23 BRIAN COLMENARES During your visit today, we recorded the following information about you: Charles Linn 04/05/2023 2:51 PM Signed LMOM for the patient to call our office back to schedule. Request submitted by Denton Wesley [[id number]] on 04/03/2023 at 8:32:58 PM Form Title: Request an Appointment Submitted Data Request appointment with: Brian Colmenares MD ([facility]) [[id number]] ----- Reason for visit: Chest pain Allergies As of Date: 04/05/2023 Noted Allergy Reaction GEMFIBROZIL 09/25/2019 5 - Intolerance ROSUVASTATIN 09/25/2019 5 - Intolerance SIMVASTATIN 09/25/2019 5 - Intolerance IMDUR (ISOSORBIDE) 03/05/2022 14 - Other: See Comments Comments: Headaches, upset stomach, fatigue PENICILLINS 02/10/2007 14 - Other: See Comments Comments: passed out and felt like I had the flu Pt states he's no longer allergic to this, he's taken tests w/out issues. PRAVASTATIN 08/07/2021 17 - Myalgia Date Reviewed: 03/05/2023 Reviewed by: Ava Quan Gasoline Catalyst Operator - Fully Assessed Reason for Visit: Appointment [[id number]] Cmt: Patient left request for chest pain Prescriptions as of 04/05/2023 - lansoprazole (PREVACID) 30 mg capsule Take 1 capsule by mouth daily before breakfast. 1/2 hr before meal. - losartan (COZAAR) 100 mg tablet Take 1 tablet by mouth once daily. - apixaban (ELIQUIS) 5 mg tab(s) Take 1 tablet by mouth twice daily. - clopidogrel (PLAVIX) 75 mg tablet Take 1 tablet by mouth once daily. - guaiFENesin (MUCINEX) 600 mg 12 hr tablet Take 1 tablet by mouth twice daily as needed for cold/allergy symptoms. - loratadine (CLARITIN) 10 mg tablet Take 1 tablet by mouth once daily. - nitroglycerin sublingual (NITROQUICK) 0.4 mg SL tablet Dissolve 0.4 mg under the tongue every 5 minutes as needed. - tamsulosin (FLOMAX) 0.4 mg Take 1 capsule by mouth daily at bedtime. - FARXIGA 10 mg tablet Take 10 mg by mouth once daily. - alirocumab (PRALUENT PEN) 75 mg/mL pen Inject 1 mL subcutaneously every other week. - ADVAIR DISKUS 500-50 mcg/dose dsdv INHALE 1 (ONE) puff EVERY 12 HOURS Facility-Administered Medications as of 04/05/2023 - perflutren lipid microspheres 1.3 mL in NaCl (PF) 0.9% 10 mL injection (DEFINITY) - sodium chloride 0.9 % (flush) 10 mL (BD POSIFLUSH) - perflutren lipid microspheres 1.3 mL in NaCl (PF) 0.9% 10 mL injection (DEFINITY) - sodium chloride 0.9 % (flush) 10 mL (BD POSIFLUSH) Problem List As Of Date 04/05/2023 Noted Resolved SUBCUTANEOUS NODULES [R22.9] 02/21/2007 Dark urine [R82.998] 10/05/2013 Abdominal pain, other specified site [R10.9] Elevated glucose [R73.09] 01/29/2020 Coronary artery disease of nome artery of ekvin*01/29/2020 Mixed hyperlipidemia [E78.2] 01/29/2020 Essential hypertension [I10] 01/29/2020 S/P right coronary artery (RCA) stent placement*06/24/2021 Pure hypercholesterolemia [E78.00] 08/13/2021 Elevated PSA [R97.20] 03/11/2022 Stable angina (HCC) [I20.8] 06/10/2022 Dyspnea on exertion [R06.09] 06/10/2022 S/P CABG x 2 [Z95.1] 10/16/2022 Type 2 diabetes mellitus without complication, *12/11/2022 Encounter Status:Closed by CHARLES LINN on 04/05/23 Normal [facility] CT CHEST WO IVCONon 03-18-20 [facility] US HEAD/NECK SOFT TISSUE OTH [place] 03-11-2023 [facility] No Panel Informationon 12-17 [facility] CNOVon 11-16-2022 CNOV Office Visit ([facility]) -- DENTON WESLEY ([id number]) 1950 M Date Time Provider Department 11/16/22 1:00 PM VERN MILLS During your visit today, we recorded the following information about you: Pulse Blood pressure Weight Height 74/minute 118/70 99.8 kg 1.829 m Vern Mills APRN.CNP 11/16/2022 1:47 PM Addendum You have done a great job recovering from you surgery, moving forward, here are the recommendations: Medications: please continue taking eliquis. Please avoid taking NSAIDs (Aleve, Ibuprofen, Motrin, Advil, Mobic etc). Take acetaminophen (Tylenol) 1000 mg four times daily for pain. Try heat/ice application for pain. Increase losartan to 50 mg daily for blood pressure. Driving: Ok to drive now! Vest: ok to stop using Cardiac Rehab: [phone] ([facility]) or [phone] ([facility]) [phone] ([facility], floor 1) You will have a EKG stress test before and after the cardiac rehab, which will be arranged by rehab center. Restrictions: slowly increase weight bearing in a gradual fashion (5-10 lbs increment each month) over the next 2-3 months to allow further healing, then gradually resume your normal activities depending on how you feel. Follow-ups: It is crucial to establish future appointments with your main providers, they are you equal opportunity director , primary care doctor, endocrinology and/or your urologist for medications refills/questions and future health management. You can follow up with cardiac surgery team on as needed basis. Please don't hesitate to contact us if you have any concerns/questions: [phone] Thanks for coming in to see me today. DEEPAK Gallardo APRN.CNP 11/16/2022 4:37 PM Addendum HPI: (Per CIRO on 07/13/22): Mr. Wesley is a 72 year old male presenting back to the office for evaluation for coronary artery disease and possible CABG. Mr. Wesley is a 72 year old male former remote smoker with a history of hypertension, hyperlipidemia, type 2 diabetes controlled with dietary modifications, asthma, and CAD status post PCI in 2015. He presents to the office for evaluation of progressive significant coronary artery disease on heart catheterization and few months of exertional chest discomfort. Nuclear stress test in June 2021 which demonstrated no evidence of ischemia or infarction. Medical therapy did not relieve his symptoms, and he was taken for heart catheterization. He does have elevated PSA levels concerning for malignancy and he also has significant exposure to agent orange in the . Cardiac catheterization demonstrates nonsignificant disease in the RCA and patent stents in the PDA and PL branches with distal tapering of vessel not amenable for bypass. The circumflex branch is likely graftable vessel in its mid segment, however distally the vessel also tapers very significantly and my concern is the outflow of the graft is not good enough to maintain graft patency. The LAD is a large vessel and has proximal stenoses just prior to the stent as well as at its takeoff from the left main. Since his last office visit, the patient has obtained a TTE, endocrinology consult, PFTs, CT of the chest, and carotid artery studies, all of which returned without any surprises as below. We presented the patient in our multidisciplinary heart team conference and the recommendation was for CABG over PCI. The patient also was found to have an elevated PSA, for which he is due to get a biopsy tomorrow on 07/14. He continues to have some exertional chest discomfort, however he feels this has improved slightly since our last office visit. Pt underwent prostate biopsy on 07/14/22 as scheduled; which revealed prostatic adenocarcinoma. Uro has plans for active surveillance and is okay to proceed with CABG. Per pt's request he wanted to wait until after the holidays for CABG. Pt underwent CABG x 2 (ACEVEDO-LAD SVG-circumflex) with Dr. Colmenares on 10/16/2022 which he tolerated well without immediate complications. Pt was transferred to CVICU in stable condition and extubated on time per early extubation protocol. POD#1 was uneventful. Transferred to 4200 on 10/18/22 POD#2 when he was first noted to have brief episodes of atrial fibrillation lasting ~ 10 seconds with reports of pounding chest. Due to continued PAF, pts metoprolol was increased to 50 mg TID and amiodarone was started prior to DC. He was initiated on Eliquis, and Plavix was resumed (no ASA) He was seen by urology for post op urinary retention and required mendiola re-insertion, home flomax. He passed voiding trial and has been voiding since He was discharged on 10/23/22 to home with [facility]. Per chart review, pt called weekend of 10/31-11/01 with reports for HR in 30s-low 50s and was advised by MD to stop metoprolol and amiodarone. He w (more content not included)... Normal [facility] Dev 11-16-2022 [place] Telephone (AGVASACC) -- DENTON WESLEY ([id number]) 1950 M Date Time Provider Department 11/16/22 BRIAN COLMENARES During your visit today, we recorded the following information about you: Romana Ramos LPN 11/16/2022 3:28 PM Signed This Nurse left a detailed message on a confidential voice message regarding below and provided Central Scheduling's phone number. This Nurse advised if any questions to contact our office. Vern Mills APRN.TECHNICAL SUPPORT CONSULTANT Received: Today Can you please let the patient know I messaged equal opportunity director, Dr. Pacheco, and he suggested an account manager forest service appointment for his fast/slow heart rate, which I placed the order for. Thanks! Allergies As of Date: 11/16/2022 Noted Allergy Reaction GEMFIBROZIL 09/25/2019 5 - Intolerance ROSUVASTATIN 09/25/2019 5 - Intolerance SIMVASTATIN 09/25/2019 5 - Intolerance IMDUR (ISOSORBIDE) 03/05/2022 14 - Other: See Comments Comments: Headaches, upset stomach, fatigue PENICILLINS 02/10/2007 14 - Other: See Comments Comments: passed out and felt like I had the flu Pt states he's no longer allergic to this, he's taken tests w/out issues. PRAVASTATIN 08/07/2021 17 - Myalgia Date Reviewed: 11/16/2022 Reviewed by: Romana Ramos LPN - Fully Assessed Reason for Visit: Orders [681] Cmt: Db Mcrae requested Nursing staff to place a call to the patient. Prescriptions as of 11/16/2022 - clopidogrel (PLAVIX) 75 mg tablet Take 1 tablet by mouth once daily. - losartan (COZAAR) 50 mg tablet Take 1 tablet by mouth once daily. - apixaban (ELIQUIS) 5 mg tab(s) Take 1 tablet by mouth twice daily. - traMADol (ULTRAM) 50 mg tablet Take 1 tablet by mouth twice daily as needed for pain for up to 5 days. - acetaminophen (TYLENOL) 500 mg tablet Take 2 tablets by mouth four times daily. - guaiFENesin (MUCINEX) 600 mg 12 hr tablet Take 1 tablet by mouth twice daily as needed for cold/allergy symptoms. - loratadine (CLARITIN) 10 mg tablet Take 1 tablet by mouth once daily. - nitroglycerin sublingual (NITROQUICK) 0.4 mg SL tablet Dissolve 0.4 mg under the tongue every 5 minutes as needed. - lansoprazole (PREVACID) 30 mg capsule Take 1 capsule by mouth daily before breakfast. 1/2 hr before meal. - tamsulosin (FLOMAX) 0.4 mg Take 1 capsule by mouth daily at bedtime. - FARXIGA 10 mg tablet Take 10 mg by mouth once daily. - alirocumab (PRALUENT PEN) 75 mg/mL pen Inject 1 mL subcutaneously every other week. - ADVAIR DISKUS 500-50 mcg/dose dsdv INHALE 1 (ONE) puff EVERY 12 HOURS Facility-Administered Medications as of 11/16/2022 - perflutren lipid microspheres 1.3 mL in NaCl (PF) 0.9% 10 mL injection (DEFINITY) - sodium chloride 0.9 % (flush) 10 mL (BD POSIFLUSH) - perflutren lipid microspheres 1.3 mL in NaCl (PF) 0.9% 10 mL injection (DEFINITY) - sodium chloride 0.9 % (flush) 10 mL (BD POSIFLUSH) Problem List As Of Date 11/16/2022 Noted Resolved SUBCUTANEOUS NODULES [R22.9] 02/21/2007 Dark urine [R82.998] 10/05/2013 Abdominal pain, other specified site [R10.9] Elevated glucose [R73.09] 01/29/2020 Coronary artery disease of nome artery of kevin*01/29/2020 Mixed hyperlipidemia [E78.2] 01/29/2020 Essential hypertension [I10] 01/29/2020 S/P right coronary artery (RCA) stent placement*06/24/2021 Pure hypercholesterolemia [E78.00] 08/13/2021 Elevated PSA [R97.20] 03/11/2022 Stable angina (HCC) [I20.8] 06/10/2022 Dyspnea on exertion [R06.09] 06/10/2022 S/P CABG x 2 [Z95.1] 10/16/2022 Encounter Status:Closed by ROMANA RAMOS on 11/16/22 Normal [facility] XR CHEST 2V FRONTAL/LATon XR CHEST 2V FRONTAL/LAT * * *Final Report* * * DATE OF EXAM: Nov 16 2022 12:23PM AKX [id number] - XR CHEST 2V FRONTAL/LAT / PROCEDURE REASON: S/P CABG x 2 * * * * Physician Interpretation * * * * EXAMINATION: CHEST RADIOGRAPH (2 VIEW FRONTAL and LATERAL) CLINICAL HISTORY: S/P CABG x 2 MQ: [id number] EXAM DATE/TIME: 11/16/2022 12:23 PM COMPARISON: 10/19/2022 RESULT: Lines, tubes, and devices: None. Lungs and pleura: Trace left. No pneumothorax. Streaky opacities noted in the left mid and lower lung. Cardiomediastinal silhouette: Normal cardiomediastinal silhouette. Bones and soft tissues: Status post median sternotomy with normally aligned sternal wires. IMPRESSION: Trace left pleural effusion remains, but findings are improved from prior. Streaky opacities in left mid and lower lung, likely related to some atelectasis, although pneumonia could be considered in the correct clinical setting. 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 Transcribe Date/Time: Nov 16 2022 1:37P Dictated by : DAWSON CHEW MD This examination was interpreted and the report reviewed and electronically signed by: DAWSON CHEW MD on Nov 16 2022 1:40PM EST [id number] [facility] 11-13-2022 ONDINA Telephone ([employer]) -- DENTON WESLEY ([id number]) 1950 M Date Time Provider Department 11/13/22 BRIAN COLMENARES During your visit today, we recorded the following information about you: Romana Ramos LPN 11/13/2022 1:42 PM Signed Patient calling in and left message. States he needed to speak with someone because he is experiencing left-sided sharp pain on chest and it is not getting better. Patient states he had recent by-pass surgery. This Nurse contacted patient back. Patient stats this started 2-days ago and describes the pain and a constant-dull pain but when he moves, coughs it is a sharp pain. Patient denies: shortness of breath, dizziness and weakness. Denies fever and chills. Romana Ramos LPN November 13, 2022 1:41 PM Wai Adair APRN.TECHNICAL SUPPORT CONSULTANT 11/13/2022 2:38 PM Signed Past few days some left sided chest pain, dull all the time and then sharp with movements, sneezing, moving a certain way. No associated nausea, LH/Dizziness or SOB. Denies any incisional concerns. Some itching. No drainage, fevers or chills. Taking tylenol for pain. Was taking tramadol for pain up until last week. Pain had mostelly subsided. Has been taking BPs and HR at home. Been around 159/88, HR 77 in am before meds. Tried to restart metoprolol after our 11/03 visit , but couldn't continue to do so bc of heart rates into 50s. Ocassional thumping. Seems like doesn't have that symptom since stopping the metoprolol. Has not been doing any heat/ice/lidocaine patches. Scheduled tylenol Lidocaine patches Try heat or ice to the areas Tramadol PRN short term supply. Start taking your home losartan 50 mg oral tablets and continue to watch and record pre/post med BPS. Advised on s/sx for which to seek immediate medical attention. Advised to call if any worsening symptoms/questions/concern s. Consider getting EKG at follow up visit. Wai Adair APRN.TECHNICAL SUPPORT CONSULTANT Allergies As of Date: 11/13/2022 Noted Allergy Reaction GEMFIBROZIL 09/25/2019 5 - Intolerance ROSUVASTATIN 09/25/2019 5 - Intolerance SIMVASTATIN 09/25/2019 5 - Intolerance IMDUR (ISOSORBIDE) 03/05/2022 14 - Other: See Comments Comments: Headaches, upset stomach, fatigue PENICILLINS 02/10/2007 14 - Other: See Comments Comments: passed out and felt like I had the flu Pt states he's no longer allergic to this, he's taken tests w/out issues. PRAVASTATIN 08/07/2021 17 - Myalgia Date Reviewed: 11/03/2022 Reviewed by: Sofiya Slade LPN - Fully Assessed Reason for Visit: Patient Update [1234] Cmt: Patient had recent by-pass surgery and states for the past 2 days having left-sided chest pain Primary Visit Diagnosis:S/P CABG x 2 [Z95.1] Order(s):losartan (COZAAR) 25 mg tabletTake 1 tablet by mouth once daily.Disp: 30 tabletRfl: 0 traMADol (ULTRAM) 50 mg tabletTake 1 tablet by mouth twice daily as needed for pain for up to 5 days.Disp: 10 tabletRfl: 0 Prescriptions as of 11/13/2022 - losartan (COZAAR) 25 mg tablet Take 1 tablet by mouth once daily. - traMADol (ULTRAM) 50 mg tablet Take 1 tablet by mouth twice daily as needed for pain for up to 5 days. - metoprolol tartrate, short acting, (LOPRESSOR) 50 mg tablet Take 0.5 tablets by mouth twice daily. Hold for SBP <100/x or heart rate <60 - acetaminophen (TYLENOL) 500 mg tablet Take 2 tablets by mouth four times daily. - apixaban (ELIQUIS) 5 mg tab(s) Take 1 tablet by mouth twice daily. - lidocaine (SALONPAS) 4 % patch Apply 1 Patch as directed once daily. Please cut patch in half lengthwise and apply to either side of sternal incision. Leave on for 12 hours then remove for 12 hours. - guaiFENesin (MUCINEX) 600 mg 12 hr tablet Take 1 tablet by mouth twice daily as needed for cold/allergy symptoms. - loratadine (CLARITIN) 10 mg tablet Take 1 tablet by mouth once daily. - nitroglycerin sublingual (NITROQUICK) 0.4 mg SL tablet Dissolve 0.4 mg under the tongue every 5 minutes as needed. - lansoprazole (PREVACID) 30 mg capsule Take 1 capsule by mouth daily before breakfast. 1/2 hr before meal. - tamsulosin (FLOMAX) 0.4 mg Take 1 capsule by mouth daily at bedtime. - FARXIGA 10 mg tablet Take 10 mg by mouth once daily. - alirocumab (PRALUENT PEN) 75 mg/mL pen Inject 1 mL subcutaneously every other week. - clopidogrel (PLAVIX) 75 mg tablet Take 1 tablet by mouth once daily. - ADVAIR DISKUS 500-50 mcg/dose dsdv INHALE 1 (ONE) puff EVERY 12 HOURS Facility-Administered Medications as of 11/13/2022 - perflutren lipid microspheres 1.3 mL in NaCl (PF) 0.9% 10 mL injection (DEFINITY) - sodium chloride 0.9 % (flush) 10 mL (BD POSIFLUSH) - perflutren lipid microspheres 1.3 mL in NaCl (PF) 0.9% 10 mL injection (DEFINITY) - sodium chloride 0.9 % (flush) 10 mL (BD POSIFLUSH) Problem List As Of Date 11/13/2022 Noted Resolved SUBCUTANEOUS NODULES [R22.9] 02/21/2007 (more content not included)... Normal [facility] Dev 11-04-2022 MANNYN Telephone (AG[facility]AS[facility]) -- DENTON WESLEY ([id number]) 1950 M Date Time Provider Department 11/04/22 BRIAN COLMENARES During your visit today, we recorded the following information about you: Brenton Bagley 11/04/2022 10:17 AM Signed [facility] phone [phone] fax [phone] Orders, 11/03/22 office encounter, AND operative report faxed on 11/04/22 Allergies As of Date: 11/04/2022 Noted Allergy Reaction GEMFIBROZIL 09/25/2019 5 - Intolerance ROSUVASTATIN 09/25/2019 5 - Intolerance SIMVASTATIN 09/25/2019 5 - Intolerance IMDUR (ISOSORBIDE) 03/05/2022 14 - Other: See Comments Comments: Headaches, upset stomach, fatigue PENICILLINS 02/10/2007 14 - Other: See Comments Comments: passed out and felt like I had the flu Pt states he's no longer allergic to this, he's taken tests w/out issues. PRAVASTATIN 08/07/2021 17 - Myalgia Date Reviewed: 11/03/2022 Reviewed by: Sofiya Slade LPN - Fully Assessed Reason for Visit: Cardiac Rehab [3558] Cmt: Referral info Prescriptions as of 11/04/2022 - metoprolol tartrate, short acting, (LOPRESSOR) 50 mg tablet Take 0.5 tablets by mouth twice daily. Hold for SBP <100/x or heart rate <60 - acetaminophen (TYLENOL) 500 mg tablet Take 2 tablets by mouth four times daily. - apixaban (ELIQUIS) 5 mg tab(s) Take 1 tablet by mouth twice daily. - lidocaine (SALONPAS) 4 % patch Apply 1 Patch as directed once daily. Please cut patch in half lengthwise and apply to either side of sternal incision. Leave on for 12 hours then remove for 12 hours. - guaiFENesin (MUCINEX) 600 mg 12 hr tablet Take 1 tablet by mouth twice daily as needed for cold/allergy symptoms. - loratadine (CLARITIN) 10 mg tablet Take 1 tablet by mouth once daily. - nitroglycerin sublingual (NITROQUICK) 0.4 mg SL tablet Dissolve 0.4 mg under the tongue every 5 minutes as needed. - lansoprazole (PREVACID) 30 mg capsule Take 1 capsule by mouth daily before breakfast. 1/2 hr before meal. - tamsulosin (FLOMAX) 0.4 mg Take 1 capsule by mouth daily at bedtime. - FARXIGA 10 mg tablet Take 10 mg by mouth once daily. - alirocumab (PRALUENT PEN) 75 mg/mL pen Inject 1 mL subcutaneously every other week. - clopidogrel (PLAVIX) 75 mg tablet Take 1 tablet by mouth once daily. - ADVAIR DISKUS 500-50 mcg/dose dsdv INHALE 1 (ONE) puff EVERY 12 HOURS Facility-Administered Medications as of 11/04/2022 - perflutren lipid microspheres 1.3 mL in NaCl (PF) 0.9% 10 mL injection (DEFINITY) - sodium chloride 0.9 % (flush) 10 mL (BD POSIFLUSH) - perflutren lipid microspheres 1.3 mL in NaCl (PF) 0.9% 10 mL injection (DEFINITY) - sodium chloride 0.9 % (flush) 10 mL (BD POSIFLUSH) Problem List As Of Date 11/04/2022 Noted Resolved SUBCUTANEOUS NODULES [R22.9] 02/21/2007 Dark urine [R82.998] 10/05/2013 Abdominal pain, other specified site [R10.9] Elevated glucose [R73.09] 01/29/2020 Coronary artery disease of nome artery of kevin*01/29/2020 Mixed hyperlipidemia [E78.2] 01/29/2020 Essential hypertension [I10] 01/29/2020 S/P right coronary artery (RCA) stent placement*06/24/2021 Pure hypercholesterolemia [E78.00] 08/13/2021 Elevated PSA [R97.20] 03/11/2022 Stable angina (HCC) [I20.8] 06/10/2022 Dyspnea on exertion [R06.09] 06/10/2022 S/P CABG x 2 [Z95.1] 10/16/2022 Encounter Status:Closed by BRENTON BAGLEY on 11/04/22 [facility] 11-03-2022 CNOV Office Visit (KR[facility]) -- DENTON WESLEY ([id number]) 1950 M Date Time Provider Department 11/03/22 1:00 PM WAI ADAIR During your visit today, we recorded the following information about you: Pulse Respiration Blood pressure Weight 74/minute 16/minute 136/74 100.9 kg Height 1.829 m Wai Adair APRN.CNP 11/03/2022 3:12 PM Signed HPI: (Per CIRO on 07/13/22): Mr. Wesley is a 72 year old male presenting back to the office for evaluation for coronary artery disease and possible CABG. Mr. Wesley is a 72 year old male former remote smoker with a history of hypertension, hyperlipidemia, type 2 diabetes controlled with dietary modifications, asthma, and CAD status post PCI in 2015. He presents to the office for evaluation of progressive significant coronary artery disease on heart catheterization and few months of exertional chest discomfort. Nuclear stress test in June 2021 which demonstrated no evidence of ischemia or infarction. Medical therapy did not relieve his symptoms, and he was taken for heart catheterization. He does have elevated PSA levels concerning for malignancy and he also has significant exposure to agent orange in the . Cardiac catheterization demonstrates nonsignificant disease in the RCA and patent stents in the PDA and PL branches with distal tapering of vessel not amenable for bypass. The circumflex branch is likely graftable vessel in its mid segment, however distally the vessel also tapers very significantly and my concern is the outflow of the graft is not good enough to maintain graft patency. The LAD is a large vessel and has proximal stenoses just prior to the stent as well as at its takeoff from the left main. Since his last office visit, the patient has obtained a TTE, endocrinology consult, PFTs, CT of the chest, and carotid artery studies, all of which returned without any surprises as below. We presented the patient in our multidisciplinary heart team conference and the recommendation was for CABG over PCI. The patient also was found to have an elevated PSA, for which he is due to get a biopsy tomorrow on 07/14. He continues to have some exertional chest discomfort, however he feels this has improved slightly since our last office visit. Pt underwent prostate biopsy on 07/14/22 as scheduled; which revealed prostatic adenocarcinoma. Uro has plans for active surveillance and is okay to proceed with CABG. Per pt's request he wanted to wait until after the holidays for CABG. Pt underwent CABG x 2 (ACEVEDO-LAD SVG-circumflex) with Dr. Colmenares on 10/16/2022 which he tolerated well without immediate complications. Pt was transferred to CVICU in stable condition and extubated on time per early extubation protocol. POD#1 was uneventful. Transferred to 4200 on 10/18/22 POD#2 when he was first noted to have brief episodes of atrial fibrillation lasting ~ 10 seconds with reports of pounding chest. Due to continued PAF, pts metoprolol was increased to 50 mg TID and amiodarone was started prior to DC. He was initiated on Eliquis, and Plavix was resumed (no ASA) He was seen by urology for post op urinary retention and required mendiola re-insertion, home flomax. He passed voiding trial and has been voiding since Interval events: reports he called [employer] this weekend with concerns for heart rate in 30s-low 50s. Was advised by MD to stop metoprolol and amiodarone. He reports now that is HR is 60-70s. No lightheadedness or dizziness event with the lower HRs. No near syncop. Some fatigue. Feels he is recovering well. No chest pain, palp, sob. Denton Wesley reports home recovery as listed below: Episodes of dizziness or syncope: no Chest pain: no- just some sternal achiness, relived with PRN tramadol Palpitations: ocassional pounding in chest at HS especially when lying time, fleeting, lasting sometimes 15-20 minutes BP: reviewed per home lo-158/80s. Weight 217 at DC, now at 220 lbs Tolerating diet well without changing bowel habits: yes, no n/v/d Fever, chills: no Activities at home with/without SOB or MCCOY: walks frequently around the house, helping , but adhering to sternal precautions. Post surgical pain with pain medications - see above. Leg edema: no Sleep: good Energy: varies, takes breaks and then feels better Subjective: Current Outpatient Medications Medication Sig apixaban (ELIQUIS) 5 mg tab(s) Take 1 tablet by mouth twice daily. metoprolol tartrate, short acting, (LOPRESSOR) 50 mg tablet Take 1 tablet by mouth every 8 hours. guaiFENesin (MUCINEX) 600 mg 12 hr tablet Take 1 tablet by mouth twice daily as needed for cold/allergy symptoms. loratadine (CLARITIN) 10 mg tablet Take 1 tablet by mouth once daily. nitroglycerin sublingual (NITROQUICK) 0.4 mg SL tablet Dissolve 0.4 mg under the tongue every 5 minutes (more content not included)... Normal [facility] Basic metabolic 2000 panelon 10-23-2022 Anion gap [Moles/Vol] 10 mmol/L Normal 9-18 [facility] Comment on above: Order Comment: Speci men Type: BLOOD SPECIMENOrdering Facility: [facility] Address: [address] [place] [address] Performed By: #### 2 4320-11, ####[facility] LABORATORYCLIA [id number] [place] [address] [place] Calcium [Mass/Vol] 9.0 mg/dL Normal 8.5-10.2 [facility] Comment on above: Order Comment: Speci men Type: BLOOD SPECIMENOrdering Facility: [facility] Address: [address] [place] [address] Performed By: #### 2 4320-11, ####[facility] LABORATORYCLIA [id number] [place] [address] [place] Chloride [Moles/Vol] 103 mmol/L Normal 97-105 [facility] Comment on above: Order Comment: Speci men Type: BLOOD SPECIMENOrdering Facility: [facility] Address: [address] [place] [address] Performed By: #### 2 4320-11, ####[facility] LABORATORYCLIA [id number] [place] [address] [place] CO2 [Moles/Vol] 23 mmol/L Normal 22-30 [facility] Comment on above: Order Comment: Speci men Type: BLOOD SPECIMENOrdering Facility: [facility] Address: [address] [place] [address], [place] [address] Performed By: #### 2 4321-2, ####[facility] LABORATORYCLIA [id number] [place] [id number] [place] [facility] Creatinine [Mass/Vol] 0.77 mg/dL Normal 0.73-1.22 [facility] Comment on above: Order Comment: Speci men Type: BLOOD SPECIMENOrdering Facility: [facility] Address: [address] [place] [place] [address] Performed By: #### 2 432-2, ####[facility] LABORATORYCLIA [id number] [place] [id number] [facility] ESTIMATED GLOMERULAR FILTRATION RATE 95 mL/min/1.73m??? Normal >=60 [facility] Comment on above: Order Comment: Speci men Type: BLOOD SPECIMENOrdering Facility: [facility] Address: [address] [place] [address] Result Comment: Pat mated Glomerular Filtration Rate (eGFR) is calculated using the 2020 CKD-EPI creatinine equation. This equation utilizes serum creatinine, sex, and age as parameters. The creatinine assay has traceable calibration to isotope dilution-mass spectrometry. Refer to KDIGO guidelines for clinical interpretation. In patients with unstable renal function, e.g. those with acute kidney injury, the eGFR may not accurately reflect actual GFR. Performed By: #### 2 4321-2, ####[facility] LABORATORYCLIA [id number] [place] [id number] [place] Glucose [Mass/Vol] 135 mg/dL High 74-99 [facility] Comment on above: Order Comment: Speci men Type: BLOOD SPECIMENOrdering Facility: [facility] Address: [address] [facility] [place] [place] [address] Result Comment: The [place] Diabetes Association (ADA) provides guidance for cutoff values for fasting glucose and random glucose. The ADA defines fasting as no caloric intake for at least 8 hours. Fasting plasma glucose results between 100 to 125 mg/dL indicate increased risk for diabetes (prediabetes). Fasting plasma glucose results greater than or equal to 126 mg/dL meet the criteria for diagnosis of diabetes. In the absence of unequivocal hyperglycemia, results should be confirmed by repeat testing. In a patient with classic symptoms of hyperglycemia or hyperglycemic crisis, random plasma glucose results greater than or equal to 200 mg/dL meet the criteria for diagnosis of diabetes. Reference: Standards of Medical Care in Diabetes 2016, [place] Diabetes Association. Diabetes Care. 2016.39(Suppl 1). Performed By: #### 2 43210-05, ####[facility] LABORATORYCLIA [id number] [address] Potassium [Moles/Vol] 4.4 mmol/L Normal 3.7-5.1 [facility] Comment on above: Order Comment: Rashaun aranda Type: BLOOD SPECIMENOrdering Facility: [facility] Address: [address] [place] [address] Performed By: #### 2 4320-11, ####[facility] LABORATORYCLIA [id number] [address] Sodium [Moles/Vol] 136 mmol/L Normal 136-144 [facility] Comment on above: Order Comment: Rashaun aranda Type: BLOOD SPECIMENOrdering Facility: [facility] Address: [address] [place] [address] Performed By: #### 2 4320-11, ####[facility] LABORATORYCLIA [id number] [address] Urea nitrogen [Mass/Vol] 18 mg/dL Normal 9-24 [facility] Comment on above: Order Comment: Rashaun aranda Type: BLOOD SPECIMENOrdering Facility: [facility] Address: [address] [place] [address] Performed By: #### 2 4320-11, ####[facility] LABORATORYCLIA [id number] [address] CNDSon 10-23-2022 CNDS HNO ID: [id number] Author: Brian Colmenares MD Service: Cardiovascular Surgery Author Type: Physician Type: Discharge Summary Filed: 10/23/2022 1:30 PM Note Text: DISCHARGE SUMMARY PATIENT NAME: Denton Wesley Code Status: Not on file Highest Readmission Risk Score: 12 The 30 day readmissions risk score is derived from an internally validated risk model which evaluates patient level characteristics, utilization history, medication orders and lab results up until the day of discharge. Patients with a score of 40 or above are considered highest risk for readmission. Specific patient level drivers will be listed at the bottom of the summary. Admission Information Admission Information ADMIT DATE: 10/16/2022 DISCHARGE DATE: 10/23/2022 MY DOCTORS AND MEDICAL TEAM: My Main Hospital Doctor: Brian Colmenares MD Primary Care Provider: Cali Cordero MD My Medical Team Members: Treatment Team: Attending Provider: Brian Colmenares MD Consulting: Aris Tolbert DO MY CONDITION AT DISCHARGE: Stable REASON I WAS IN THE HOSPITAL: CABG x 2 SUMMARY OF WHAT HAPPENED WHILE I WAS IN THE HOSPITAL: S/P SURGERY: Procedure(s) (LRB): BYPASS GRAFT ARTERY CORONARY ON-PUMP x 2 (ACEVEDO TO LAD SVG TO CIRC) DATE OF SURGERY: 10/16/2022 POSTOP DAY #7 LOS: 6 HPI (Per CIRO on 07/13/22): Mr. Wesley is a 72 year old male presenting back to the office for evaluation for coronary artery disease and possible CABG. Mr. Wesley is a 72 year old male former remote smoker with a history of hypertension, hyperlipidemia, type 2 diabetes controlled with dietary modifications, asthma, and CAD status post PCI in 2016. He presents to the office for evaluation of progressive significant coronary artery disease on heart catheterization and few months of exertional chest discomfort. Nuclear stress test in June 2021 which demonstrated no evidence of ischemia or infarction. Medical therapy did not relieve his symptoms, and he was taken for heart catheterization. He does have elevated PSA levels concerning for malignancy and he also has significant exposure to agent orange in the . Cardiac catheterization demonstrates nonsignificant disease in the RCA and patent stents in the PDA and PL branches with distal tapering of vessel not amenable for bypass. The circumflex branch is likely graftable vessel in its mid segment, however distally the vessel also tapers very significantly and my concern is the outflow of the graft is not good enough to maintain graft patency. The LAD is a large vessel and has proximal stenoses just prior to the stent as well as at its takeoff from the left main. Since his last office visit, the patient has obtained a TTE, endocrinology consult, PFTs, CT of the chest, and carotid artery studies, all of which returned without any surprises as below. We presented the patient in our multidisciplinary heart team conference and the recommendation was for CABG over PCI. The patient also was found to have an elevated PSA, for which he is due to get a biopsy tomorrow on 07/14. He continues to have some exertional chest discomfort, however he feels this has improved slightly since our last office visit. Pt underwent prostate biopsy on 07/14/22 as scheduled; which revealed prostatic adenocarcinoma. Uro has plans for active surveillance and is okay to proceed with CABG. Per pt's request he wanted to wait until after the holidays for CABG. Pt underwent CABG x 2 (ACEVEDO-LAD SVG-circumflex) with Dr. Colmenares on 10/16/2022 which he tolerated well without immediate complications. Pt was transferred to CVICU in stable condition and extubated on time per early extubation protocol. POD#1 was uneventful. Transferred to 4200 on 10/18/22 POD#2 when he was first noted to have brief episodes of atrial fibrillation lasting ~ 10 seconds with reports of pounding chest. Pacing wires pulled 10/20, Metoprolol tartrate has been titrated up, most recently to 50 mg Q8H evening of 10/20/22. He was started on eliquis 10/21. Aspirin discontinued and home plavix resumed for history of prior stents. He was seen by urology for post op urinary retention and required mendiola re-insertion, home flomax. He passed voiding trial and has been voiding since. INTERVAL EVENTS / PERTINENT ROS: 10/23/22 POD#7: pt was started on amiodarone loading dose yesterday of which he received 2 doses. Reviewed telemetry, indicating less frequent episodes of atrial fibrillation overnight compared to previously. Currently NSR, HR 70s. Reviewed BP log which have been labile, 107/89 - 167/89, blood sugars have been in 100s. Pt seen this morning sitting up in chair at bedside. He reports having less chest pounding episodes overnight compared to previously as he reports being able to feel when his heart is in rapid rate/afib. He reports having discomfort in upper back between shoulder blades as he did yesterday, from the (more content not included)... Normal [facility] Magnesium SerPl-mCncon 10-23 Magnesium [Mass/Vol] 1.9 mg/dL Normal 1.7-2.3 [facility] Comment on above: Order Comment: Speci men Type: BLOOD SPECIMENOrdering Facility: [facility] Address: [address] [place], [place] [id number] Performed By: #### 2 4321-2, 94929-0 ####[facility] LABORATORYCLIA [id number] [place] [address] [place] PT EDon 10-23-2022 PT ED HNO ID: [id number] Author: Lita Burgess RPh Service: Pharmacy Author Type: Pharmacist Type: Patient Education Filed: 10/23/2022 12:46 PM Note Text: PHARMACY ANTICOAGULATION EDUCATION Patient Name: Denton Wesley Account #: Data Unavailable Admission Date: 10/16/2022 5:56 AM Date of Contact: October 23, 2022 Time of Contact: 12:44 PM Patient new to Apixaban? Yes Indication for anticoagulation: Atrial Fibrillation Apixban 5 mg bid Received free 30 days supply with our [facility] Outpatient pharmacy Informed pt of cost for refills (30 days) = $47 Pt ok with cost Patient received full anticoagulation education. Initial patient education included: * Reason for taking anticoagulation * How anticoagulant works * When to take medication and what to do if a dose is missed * Drug interactions (Rx, OTC, herbal) and importance of notifying the doctor with any changes. * Do not take or discontinue any medication or over the counter medication except on the advice of the physician or pharmacist. * Potential duration of therapy * Signs/symptoms of bleeding and what to do if they occur because anticoagulation increases the risk of bleeding * Precautionary measures to decrease trauma/bleeding * Signs/symptoms of thrombosis and what to do if they occur * Carrying identification * Importance of notifying healthcare provider when hospitalizations occur and when another healthcare provider has asked them to stop/hold anticoagulation medication before any procedure * Importance of notifying all healthcare providers they are taking an anticoagulant * Use of control measures if applicable * The importance of taking anticoagulation medication as instructed and the potential ramifications of non-compliance were explained to the patient. The patient was provided supplemental material which includes the following topics: compliance Issues, follow-up with physician, follow- up monitoring, potential adverse drug reactions and interactions. READINESS TO LEARN COGNITIVE ABILITY: Alert and oriented MOTIVATION TO LEARN: Eager Interested FAMILY SUPPORT: Unable to assess - Family not present INSTRUCTION PROVIDED TO: Patient PATIENT LEARNS BEST BY: Individual Instruction Written Instruction - Hand-outs Verbal Instruction FACTORS AFFECTING LEARNING: None PHYSICAL LIMITATIONS AFFECTING LEARNING: None LEARNING RESPONSE DIAGNOSIS: SEE INDICATION(S) ABOVE PATIENT/FAMILY RESPONSE: Verbalizes understanding of: The signs and symptoms of a worsening condition that warrant a call to the physician. The correct actions to take to manage symptoms associated with his/her disease/illness. The physical restrictions and recommendations after discharge from the hospital. Accurate knowledge of prescribed medication prior to discharge. The correct action to take if medication dose is missed. The side effects associated with the medication that warrant a call to the physician. METHOD OF INSTRUCTION: Individual instruction Group class instruction Written instruction - handouts SUPPLEMENTAL MATERIAL PROVIDED: Apixaban education booklet FURTHER RECOMMENDATIONS (if any) Continued re-enforcement during follow up appointments EVIDENCE OF LEARNING Outcomes met: Describes/able to restate information Outcomes not met: N/A Lita Burgess RPh Normal [facility] THERAPY NTon 10-23-2022 THERAPY NT HNO ID: [id number] Author: DENNY Mckinney/Rossana Service: Occupational Therapy Author Type: Occupational Therapist Type: Therapy (PT/OT/Speech/Resp) Filed: 10/23/2022 11:45 AM Note Text: Occupational Therapy Treatment SERVICE DATE: 10/23/2022 SERVICE TIME: 1031 to 1054 ROOM: [id number] Recommended Discharge Disposition: Home Recommended Discharge Disposition Comments: with family assistance PRN Anticipated Discharge Needs: Physical Assist at Home Physical Assist at Home for: Laundry;Cleaning;Meals;Hiwot pping;Transportation OT 6 Clicks Score: 23 Patient seen bedside, agreeable to OT. Patient has made great progress with OT. Demonstrates good understanding of sternal precautions and home safety. Pt has met all OT goals and is safe for home at d/c with family. Will d/c OT at this time. Precautions/Activity Restrictions: Sternal;Fall Risk Current Hospital Course: Patient was admitted on 10/16/22 for an elective CABG. Patient is on sternal precautions. Currently being treated for all medical diagnoses. Reason for Hospital Admission: elective procedure Relevant Past Medical History: CAD, asthma, HTN Response to Therapy Interventions: Good participation in activities Occupational Therapy Problem List: Safety Deficits;Impaired Self Care;Decreased Activity Tolerance;Decreased Strength;Functional Mobility Impairment;Balance Impaired Cognition/Communication Deficits Responsiveness: Alert Follows Commands: 3-step Commands Treatment Interventions: Education;Energy Conservation Training;Self Care / Home Management;Strengthening;F unctional Mobility Training;Balance Training Home Environment Patient Lives With: Spouse Assistance Available: Part-Time (son can help) Entry To Home: Stairs Number Of Stairs Into Home: 4 Number Of Stairs To Bed/Bath: 0 Equipment Owned: Wheeled Walker;Rollator Prior Functional Level: Within Functional Limits Prior Functional Level Comments: Patient was independent with all functional mobility and was helping to care for his Baseline Cognition: Oriented to self;Oriented to place;Oriented to time Occupational Factors Life Roles: Spouse/Significant Other;Family Member;Friend;Parent Identified Strengths: Good Support System Identified Barriers: Difficulty with ADLs/IADLs Patient Report: Pt seen bedside, agreeable to OT CURRENT FUNCTIONAL STATUS: Most recent performance Current Activities of Daily Living Assist Level Additional Information Feeding Independent Grooming Stand By Assistance;Additional Information Completed while standing at sink in bathroom Bathing Upper Body Set Up Bathing Lower Body Modified Independent Dressing Upper Body Independent Dressing Lower Body Additional Information;Modified Independent Provided patient with cues for proper sequencing, completing figure four tech to complete LB dressing Toileting Independent Instrumental Activities of Daily Living Assist Level Additional Information Meal/Beverage Prep Cleaning Laundry Medication Management with Strategies Functional Mobility Assist Level Additional Information Rolling Supine to Sit Contact Guard Assistance Sit to Supine Contact Guard Assistance Scooting Contact Guard Assistance Sit to Stand Independent Stand to Sit Independent Bed to Chair Toilet/Commode Independent Shower Functional Mobility Supervision Wheeled Walker Blank cardona indicate activity not attempted Balance: Static Standing;Dynamic Standing Static Standing Balance: Fair Patient able to maintain balance with handhold support, may require occasional minimal assistance Dynamic Standing Balance: Fair Patient accepts minimal challenge, able to maintain balance while turning head/trunk Activity Tolerance: Sitting Activity;Standing Activity Sitting Activity: Completed LB dressing task Sitting Activity Tolerance (in minutes): 6 Standing Activity: functional mobility from chair to bathroom Standing Activity Tolerance (in minutes): 2 Learning/Educational Needs: Discharge Plan;Disease Process;Equipment;Family Education/Training;Functio nal Activities/Mobility;Precau tions;Rehabilitation Techniques and Procedures;Safety;Self Care Goals for Plan of Care: Patient/Caregiver Goals: Participate in meaningful activities Grooming with: Independent Upper Body Bathing with: Independent Upper Body Dressing with: Independent Lower Body Bathing with: Modified Independent Lower Body Dressing with: Modified Independent Toilet Hygiene with: Independent Chair Transfer with: Supervision Toilet Transfer with: Supervision Tolerate (minutes of functional activity): 35 Functional Activity with: Supervision Demonstrate Competence with Education with: Supervision (sternal precautions) Progress Toward Goals: Progressing as expected Rehab Potential: Good Patient will be discontinued from Occupational Therapy when no further skilled needs are identified in this setting. PL (more content not included)... Normal [facility] THERAPY NT HNO ID: [id number] Author: Collin Pradhan PT Service: Physical Therapy Author Type: Physical Therapist Type: Therapy (PT/OT/Speech/Resp) Filed: 10/23/2022 9:12 AM Note Text: Physical Therapy Treatment SERVICE DATE: 10/23/2022 SERVICE TIME: 851 to 0900 ROOM: [place] [address] Recommended Discharge Disposition: Home Recommended Discharge Disposition Comments: Patient is functioning close to baseline however, he still is experiencing decreased activity tolerance and functional mobility. He is currently at risk for falls/injury. Anticipate that he will make good progress toward goals while in house. Recommend discharge to home with no anticipated skilled PT needs once medically stable. Anticipated Discharge Needs: Physical Assist at Home Physical Assist at Home for: Laundry;Cleaning;Meals;Hiwot pping;Transportation Recommended Discharge Equipment: Wheeled Walker PT 6 Clicks Score: 23 Patient has made good progress towards goals. He ambulated 200'x1 with supervision and no assistive device. Discharging him from physical therapy services at this time due to no more skilled physical therapy needs anticipated. Continue to recommend discharge to home once medically stable as patient is functioning very close to baseline. Precautions/Activity Restrictions: Sternal;Fall Risk Current Hospital Course: Patient was admitted on 10/16/22 for an elective CABG. Patient is on sternal precautions. Currently being treated for all medical diagnoses. Reason for Hospital Admission: elective procedure Relevant Past Medical History: CAD, asthma, HTN Physical Therapy Problem List: Decreased Activity Tolerance;Functional Mobility Impairment Treatment Interventions: Education Home Environment Patient Lives With: Spouse Assistance Available: Part-Time (son can help) Entry To Home: Stairs Number Of Stairs Into Home: 4 Number Of Stairs To Bed/Bath: 0 Equipment Owned: Wheeled Walker;Rollator Prior Functional Level: Within Functional Limits Prior Functional Level Comments: Patient was independent with all functional mobility and was helping to care for his Baseline Cognition: Oriented to self;Oriented to place;Oriented to time CURRENT FUNCTIONAL STATUS: Most recent performance mobility performed during session in bold, other mobility completed during prior session and may no longer be correct or appropriate to complete. Current Functional Mobility Assist Level Additional Information Rolling Supervision;Additional Information Supine to Sit Supervision;Additional Information Sit to Supine Supervision;Additional Information Scooting Supervision;Additional Information Sit to Stand Supervision;Additional Information Stand to Sit Supervision;Additional Information Bed to Chair Toilet/Commode Gait Supervision;Additional Information Gait Device: None Gait Distance (feet): 200'x1 Stairs Curb Step Contact Guard Assistance;Additional Information Device: Rail Car Transfer Blank cardona indicate activity not attempted General Deviations/Observations: Angely decreased Activity Tolerance: Standing Activity Standing Activity: ambulation Standing Activity Tolerance (in minutes): 5 JH-HLM: 7: Walk 25 feet or more Learning/Educational Needs: Discharge Plan;Plan of Care;Precautions;Rehabilit ation Techniques and Procedures Goals for Plan of Care: Patient /Caregiver Goals: Go Home Able to Perform HEP with: Independent Rolling with: Independent Transfer Supine to/from Sit with: Independent Transfer Sit to/from Stand with: Supervision Ambulate with: Independent Distance: 200'x1 Device: No Device Ambulate Up and Down Steps with: Supervision Number of Steps: 4 Device: Rail Progress Toward Goals: Progressing as expected Rehab Potential: Good Patient will be discontinued from Physical Therapy when no further skilled needs are identified in this setting. PLAN: PT Frequency: Discontinue therapy services Reasons Therapy Services Discontinued: No skilled needs Plan of Care developed with: Patient TREATMENT INTERVENTIONS: Therapy Diagnosis: Reduced mobility-other Interventions Provided: Therapeutic Activity (04197) Therapeutic Activity (71080) Treatment Minutes: 8 $ Therapeutic Activity (81026) Billed Units: 1 unit Timed Code Treatment (minutes): 8 Skilled Treatment Time (minutes): 8 Please see discipline specific clinical documentation flowsheet for complete details for this therapy evaluation/treatment. SIGNATURE: DELON Murray PATIENT NAME: Denton Wesley DATE: October 23, 2022 TIME: 9:06 AM As the licensed Therapist, I was present and guided the care of the patient for the entire session on this date. I reviewed and agree with the documentation corresponding to this therapy visit. SIGNATURE: Clolin Lorne, PT DATE: October 23, 2022 TIME: 9:12 AM Normal [facility] Basic metabolic 2000 panelon 10-22-2022 Anion gap [Moles/Vol] 12 mmol/L Normal 9-18 [facility] Comment on above: Order Comment: Speci men Type: BLOOD SPECIMENOrdering Facility: [facility] Address: [address] [place] [address] Performed By: #### 2 4321-2 ####[facility] LABORATORYCLIA [id number] [place] [address] [place] Calcium [Mass/Vol] 8.8 mg/dL Normal 8.5-10.2 [facility] Comment on above: Order Comment: Speci men Type: BLOOD SPECIMENOrdering Facility: [facility] Address: [address] [place] [address] Performed By: #### 2 4321-2 ####[facility]ORATORYCLIA [id number] [place] [address] [place] Chloride [Moles/Vol] 106 mmol/L High 97-105 [facility] Comment on above: Order Comment: Speci men Type: BLOOD SPECIMENOrdering Facility: [facility] Address: [address] [place] [address] Performed By: #### 2 4321-2 ####[facility]ATORYCLIA [id number] [place] [address] [place] CO2 [Moles/Vol] 24 mmol/L Normal 22-30 [facility] Comment on above: Order Comment: Speci men Type: BLOOD SPECIMENOrdering Facility: [facility] Address: [address] [place] [address] Performed By: #### 2 4321-2 ####[facility]ATORYCLIA [id number] [place] [address] [place] Creatinine [Mass/Vol] 0.76 mg/dL Normal 0.73-1.22 [facility] Comment on above: Order Comment: Eduardnida aranda Type: BLOOD SPECIMENOrdering Facility: [facility] Address: [place] [id number] Performed By: #### 2 4321-2 ####[facility]ORATORYCLIA [id number] [place] [id number] [place] [facility] ESTIMATED GLOMERULAR FILTRATION RATE 95 mL/min/1.73m??? Normal >=60 [facility] Comment on above: Order Comment: Rashaun manoj Type: BLOOD SPECIMENOrdering Facility: [facility] Address: [place] [address] Result Comment: Pat mated Glomerular Filtration Rate (eGFR) is calculated using the 2020 CKD-EPI creatinine equation. This equation utilizes serum creatinine, sex, and age as parameters. The creatinine assay has traceable calibration to isotope dilution-mass spectrometry. Refer to KDIGO guidelines for clinical interpretation. In patients with unstable renal function, e.g. those with acute kidney injury, the eGFR may not accurately reflect actual GFR. Performed By: #### 2 4321-2 ####[facility] LABORATORYCLIA [id number] [place] [address] [place] Glucose [Mass/Vol] 119 mg/dL High 74-99 [facility] Comment on above: Order Comment: Rashaun aranda Type: BLOOD SPECIMENOrdering Facility: [facility] Address: [place] [address] Result Comment: The [place] Diabetes Association (ADA) provides guidance for cutoff values for fasting glucose and random glucose. The ADA defines fasting as no caloric intake for at least 8 hours. Fasting plasma glucose results between 100 to 125 mg/dL indicate increased risk for diabetes (prediabetes). Fasting plasma glucose results greater than or equal to 126 mg/dL meet the criteria for diagnosis of diabetes. In the absence of unequivocal hyperglycemia, results should be confirmed by repeat testing. In a patient with classic symptoms of hyperglycemia or hyperglycemic crisis, random plasma glucose results greater than or equal to 200 mg/dL meet the criteria for diagnosis of diabetes. Reference: Standards of Medical Care in Diabetes 2016, [place] Diabetes Association. Diabetes Care. 2016.39(Suppl 1). Performed By: #### 2 4321-2 ####[facility]ORATORYCLIA [id number] [address] [place] Potassium [Moles/Vol] 4.1 mmol/L Normal 3.7-5.1 [facility] Comment on above: Order Comment: Speci men Type: BLOOD SPECIMENOrdering Facility: [facility] Address: [address] [place] [address] Performed By: #### 2 4321-2 ####[facility]ATORYCLIA [id number] [address] STATES OF [facility] Sodium [Moles/Vol] 142 mmol/L Normal 136-144 [facility] Comment on above: Order Comment: Speci men Type: BLOOD SPECIMENOrdering Facility: [facility] Address: [address] [place] [address] Performed By: #### 2 4321-2 ####[facility]ORATORYCLIA [id number] [address] [place] Urea nitrogen [Mass/Vol] 17 mg/dL Normal 9-24 [facility] Comment on above: Order Comment: Speci men Type: BLOOD SPECIMENOrdering Facility: [facility] Address: [address] [place] [address] Performed By: #### 2 4321-2 ####[facility]ORATORYCLIA [id number] [address] [place] NUTRITIONon 10-22-2022 NUTRITION HNO ID: [id number] Author: Maru Bauer RD Service: Nutrition Therapy Author Type: Registered Dietitian Type: Nutrition Filed: 10/22/2022 2:12 PM Note Text: NUTRITION THERAPY PROGRESS NOTE SERVICE DATE: 10/22/2022 SERVICE TIME: 11:48 Nutrition Assessment: Recommended Malnutrition Diagnosis: No Malnutrition Identified (10/17/22 1304 : Violette Montoya RD) Estimated kilocalorie needs: Calorie Calculation Method: 25-30 kcals/kg Estimated protein needs (grams): 97-121 Grams protein determined by: 1.2 - 1.5 g/kg;[place] body weight Care Plan: Continue current diet Supplements: Ensure Max Monitor and Evaluation: Meet greater than 75% of estimated needs;Monitor bowel function;Monitor fluid/electrolyte balance;Monitor labs, I/Os, vital signs, weight Discharge Recommendations: Diet;Oral Supplements Diet: CHO controlled, heart healthy Oral Supplements: Ensure Max or equivalent 1-2x/day to promote wound healing Interval History: CTS following post CABG. Transferred to [facility]. Anthropometrics: Height: 182.9 cm (6') Weight: 99 kg (218 lb 3.2 oz) Dosing Weight: 81 kg (178 lb 9.2 oz) Usual Weight: 102.1 kg (225 lb) past year Usual Weight Obtained From: Patient Body mass index is 29.59 kg/m?. Obese Weight change percentage over time: stable Intake History: Current Nutrition Intake: Less than 75% estimated energy needs Current Intake Over time: Greater than or equal to 5 days (6 days). Does not like the hospital food options. Tried to drink the [employer] drink but does not like it much. He prefers betsy/strawberry Ensure. Will adjust. Encouraged PO, variety, protein for sternal wound healing. Diet Orders (From admission, onward) Start Ordered 10/17/22 1445 DIET HEART HEALTHY START NOW Question Answer Comment Heart Healthy 2 GM SODIUM (LOW SAT FAT) Carbohydrate Control CONSISTENT CARBOHYDRATE 10/17/22 1440 10/17/22 1445 DIET SUPPLEMENTS START NOW Question Answer Comment Supplement 1 [employer] Supplement 1 Frequency BREAKFAST Supplement 1 Frequency DINNER 10/17/22 1440 MNT Billing: $ Reassessment: 1-15 minutes SIGNATURE: Maru Bauer RD PATIENT NAME: Denton Wesley DATE: October 22, 2022 TIME: 11:48 AM Normal [facility] THERAPY NTon 10-22-2022 THERAPY NT HNO ID: [id number] Author: Red Buchanan, WILMAN Service: Physical Therapy Author Type: Physical Therapist Type: Therapy (PT/OT/Speech/Resp) Filed: 10/22/2022 11:21 AM Note Text: Physical Therapy Treatment SERVICE DATE: 10/22/2022 SERVICE TIME: 1028 to 1043 ROOM: [place] [address] Recommended Discharge Disposition: Home Recommended Discharge Disposition Comments: Patient is functioning close to baseline however, he still is experiencing mild decrease in activity tolerance. Anticipate that he will make good progress toward goals while in house. Recommend discharge to home with no anticipated skilled PT needs once medically stable. Anticipated Discharge Needs: Physical Assist at Home Physical Assist at Home for: Laundry;Cleaning;Meals;Hiwot pping;Transportation Recommended Discharge Equipment: Wheeled Walker PT 6 Clicks Score: 23 Patient progressing well with PT goals, able to ambulate in hallway without assistive device with supervision and navigate curb step with contact guard assistance. He feels functionally capable to go home, notes that he is not yet back to 100% however. Will continue to follow during acute stay to further progress his activity tolerance and maximize his independence with all functional mobility. Precautions/Activity Restrictions: Sternal;Fall Risk Current Hospital Course: Patient was admitted on 10/16/22 for an elective CABG. Patient is on sternal precautions. Currently being treated for all medical diagnoses. Reason for Hospital Admission: elective procedure Relevant Past Medical History: CAD, asthma, HTN Response to Therapy Interventions: Good participation in activities, On-track to achieve discharge goals Continue skilled needs due to: Continued monitoring of vital signs during mobility required, Functional mobility/skill impairments Physical Therapy Problem List: Decreased Activity Tolerance;Functional Mobility Impairment Treatment Interventions: Education;Balance Training;Neuromuscular Re-education;Functional Mobility Training Home Environment Patient Lives With: Spouse Assistance Available: Part-Time (son can help) Entry To Home: Stairs Number Of Stairs Into Home: 4 Number Of Stairs To Bed/Bath: 0 Equipment Owned: Wheeled Walker;Rollator Prior Functional Level: Within Functional Limits Prior Functional Level Comments: Patient was independent with all functional mobility and was helping to care for his Baseline Cognition: Oriented to self;Oriented to place;Oriented to time Patient Report: pleasant, agreeable to PT. Noted that he's not at 100% yet but feeling like he can function okay CURRENT FUNCTIONAL STATUS: Most recent performance, mobility performed during session in bold, other mobility completed during prior session and may no longer be correct or appropriate to complete. Current Functional Mobility Assist Level Additional Information Rolling Supervision;Additional Information Supine to Sit Supervision;Additional Information HOB elevated, VC's for sternal precautions, increased time. Sit to Supine Supervision;Additional Information Scooting Supervision;Additional Information Sit to Stand Supervision;Additional Information complete with use of legs and rocking/momentum, no use of arms without cues needed Stand to Sit Supervision;Additional Information did reach back for armrests for balance only, no weight placed through arms per his report. Bed to Chair Toilet/Commode Gait Supervision;Additional Information Gait Device: None Gait Distance (feet): 150 good stability, mildly slowed speed but near normal ambulation. Stairs Curb Step Contact Guard Assistance;Additional Information Device: Rail step stool with rail in room x2, CGA with good stability/safety Car Transfer Blank cardona indicate activity not attempted General Deviations/Observations: Angely decreased Activity Tolerance: Standing Activity Standing Activity: ambulation Standing Activity Tolerance (in minutes): 5 JH-HLM: 7: Walk 25 feet or more Learning/Educational Needs: Discharge Plan;Plan of Care;Precautions;Rehabilit ation Techniques and Procedures Goals for Plan of Care: Patient /Caregiver Goals: Go Home Able to Perform HEP with: Independent Rolling with: Independent Transfer Supine to/from Sit with: Independent Transfer Sit to/from Stand with: Supervision Ambulate with: Supervision Distance: 100'x2 Device: No Device Ambulate Up and Down Steps with: Supervision Number of Steps: 4 Device: Rail Progress Toward Goals: Progressing as expected Rehab Potential: Good Patient will be discontinued from Physical Therapy when no further skilled needs are identified in this setting. PLAN: PT Frequency: 3 times per week (1-3x) Plan of Care developed with: Patient TREATMENT INTERVENTIONS: Therapy Diagnosis: Reduced mobility-other Interventions Provided: Therapeutic Activity (45460);Gait Training (88063) Therapeutic Act (more content not included)... Normal [facility] CONSULT PROGon 10-21-2022 CONSULT PROG HNO ID: [id number] Author: Lita Burgess [facility] Service: Pharmacy Author Type: Pharmacist Type: Consult Progress Note Filed: 10/21/2022 4:52 PM Note Text: PHARMACY PROGRESS NOTE Patient Name: Denton Wesley Admission Date: 10/16/2022 Date of Consult: 10/21/2022 Time of Consult: 4:51 PM In accordance with the inpatient pharmacy consult agreement the following medication changes have been made: Apixaban cost check for 30 days supply = $47 Pharmacy will continue to monitor patient for continued eligibility of these medication changes. Please call with any questions or concerns. SIGNATURE: Lita Burgess [facility] DATE/TIME: 10/21/2022 4:51 PM Normal [facility] Basic metabolic 2000 panelon 10-20-2022 Anion gap [Moles/Vol] 11 mmol/L Normal 9-18 [facility] Comment on above: Order Comment: Speci men Type: BLOOD SPECIMENOrdering Facility: [facility] Address: [address] [place] [address] Performed By: #### 2 2, ####[facility]ORYCLIA [id number] [place] [address] [place] Calcium [Mass/Vol] 8.7 mg/dL Normal 8.5-10.2 [facility] Comment on above: Order Comment: Speci men Type: BLOOD SPECIMENOrdering Facility: [facility] Address: [address] [place] [address] Performed By: #### 2 4320-11, ####[facility]ORYCLIA [id number] [place] [address] [place] Chloride [Moles/Vol] 104 mmol/L Normal 97-105 [facility] Comment on above: Order Comment: Speci men Type: BLOOD SPECIMENOrdering Facility: [facility] Address: [address] [place] [address] Performed By: #### 2 2, ####[facility]ORATORYCLIA [id number] [place] [address] [place] CO2 [Moles/Vol] 24 mmol/L Normal 22-30 [facility] Comment on above: Order Comment: Speci men Type: BLOOD SPECIMENOrdering Facility: [facility] Address: [address] [place] [address] Performed By: #### 2 4320-11, ####[facility]ORYCLIA [id number] [place] [address] [place] Creatinine [Mass/Vol] 0.56 mg/dL Low 0.73-1.22 [facility] Comment on above: Order Comment: Specnida manoj Type: BLOOD SPECIMENOrdering Facility: [facility] Address: [address] [place] [address] Performed By: #### 2 4321-2, 05806-4 ####[facility]ORATORYCLIA [id number] [address] [place] ESTIMATED GLOMERULAR FILTRATION RATE 105 mL/min/1.73m??? Normal >=60 [facility] Comment on above: Order Comment: Rashaun manoj Type: BLOOD SPECIMENOrdering Facility: [facility] Address: [address] [place] [address] Result Comment: Pat mated Glomerular Filtration Rate (eGFR) is calculated using the 2020 CKD-EPI creatinine equation. This equation utilizes serum creatinine, sex, and age as parameters. The creatinine assay has traceable calibration to isotope dilution-mass spectrometry. Refer to KDIGO guidelines for clinical interpretation. In patients with unstable renal function, e.g. those with acute kidney injury, the eGFR may not accurately reflect actual GFR. Performed By: #### 2 4321-2, 11872-3 ####[facility]ORATORYCLIA [id number] [place] [address] [place] Glucose [Mass/Vol] 142 mg/dL High 74-99 [facility] Comment on above: Order Comment: Rashaun aranda Type: BLOOD SPECIMENOrdering Facility: [facility] Address: [address] [place] [address] Result Comment: The [place] Diabetes Association (ADA) provides guidance for cutoff values for fasting glucose and random glucose. The ADA defines fasting as no caloric intake for at least 8 hours. Fasting plasma glucose results between 100 to 125 mg/dL indicate increased risk for diabetes (prediabetes). Fasting plasma glucose results greater than or equal to 126 mg/dL meet the criteria for diagnosis of diabetes. In the absence of unequivocal hyperglycemia, results should be confirmed by repeat testing. In a patient with classic symptoms of hyperglycemia or hyperglycemic crisis, random plasma glucose results greater than or equal to 200 mg/dL meet the criteria for diagnosis of diabetes. Reference: Standards of Medical Care in Diabetes 2016, [place] Diabetes Association. Diabetes Care. 2016.39(Suppl 1). Performed By: #### 2 432-2, ####[facility]ATORYCLIA [id number] [address] [place] Potassium [Moles/Vol] 4.0 mmol/L Normal 3.7-5.1 [facility] Comment on above: Order Comment: Speci men Type: BLOOD SPECIMENOrdering Facility: [facility] Address: [address] [place] [address] Performed By: #### 2 432-2, ####[facility]ATORYCLIA [id number] [address] STATES OF [facility] Sodium [Moles/Vol] 139 mmol/L Normal 136-144 [facility] Comment on above: Order Comment: Speci men Type: BLOOD SPECIMENOrdering Facility: [facility] Address: [address] [place] [address] Performed By: #### 2 2, ####[facility]ORYCLIA [id number] [address] STATES [facility] Urea nitrogen [Mass/Vol] 15 mg/dL Normal 9-24 [facility] Comment on above: Order Comment: Speci men Type: BLOOD SPECIMENOrdering Facility: [facility] Address: [address] [place] [address] Performed By: #### 2 4320-11, ####[facility]ATORYCLIA [id number] [address] CBC panel Auto (Bld)on 10-20 Erythrocyte distribution width (RBC) [Ratio] 13.2 % Normal 11.5-15.0 [facility] Comment on above: Order Comment: Speci men Type: BLOOD SPECIMENOrdering Facility: [facility] Address: [address] [place] [address] Performed By: #### 5 8410-2 ####[facility]ATORYCLIA [id number] [address] Hematocrit (Bld) [Volume fraction] 41.6 % Normal 39.0-51.0 [facility] Comment on above: Order Comment: Speci men Type: BLOOD SPECIMENOrdering Facility: [facility] Address: [address] [place] [address] Performed By: #### 5 8410-2 ####[facility]ORATORYCLIA [id number] [address] STATES OF [facility] Hemoglobin (Bld) [Mass/Vol] 13.9 g/dL Normal 13.0-17.0 [facility] Comment on above: Order Comment: Speci men Type: BLOOD SPECIMENOrdering Facility: [facility] Address: [address] [place] [address] Performed By: #### 5 8410-2 ####[facility]ATORYCLIA [id number] [address] [place] MCH (RBC) [Entitic mass] 30.1 pg Normal 26.0-34.0 [facility] Comment on above: Order Comment: Speci men Type: BLOOD SPECIMENOrdering Facility: [facility] Address: [address] [place] [address] Performed By: #### 5 8410-2 ####[facility]ORYCLIA [id number] [address] [place] MCHC (RBC) [Mass/Vol] 33.4 g/dL Normal 30.5-36.0 [facility] Comment on above: Order Comment: Speci men Type: BLOOD SPECIMENOrdering Facility: [facility] Address: [address] [place] [address] Performed By: #### 5 8410-2 ####[facility]ATORYCLIA [id number] [address] [place] MCV (RBC) [Entitic vol] 90.0 fL Normal 80.0-100.0 [facility] Comment on above: Order Comment: Speci men Type: BLOOD SPECIMENOrdering Facility: [facility] Address: [address] [place] [address] Performed By: #### 5 8410-2 ####[facility]ATORYCLIA [id number] [place] [address] [place] Nucleated RBC (Bld) [#/Vol] 10*3/uL Normal <0.01 [facility] Comment on above: Order Comment: Speci men Type: BLOOD SPECIMENOrdering Facility: [facility] Address: [address] [place] [address] Performed By: #### 5 8410-2 ####[facility]ATORYCLIA [id number] [address] [place] Platelet mean volume (Bld) [Entitic vol] 9.3 fL Normal 9.0-12.7 [facility] Comment on above: Order Comment: Speci men Type: BLOOD SPECIMENOrdering Facility: [facility] Address: [address] [place] [address] Performed By: #### 5 8410-2 ####[facility]ORYCLIA [id number] [address] [place] Platelets (Bld) [#/Vol] 256 10*3/uL Normal 150-400 [facility] Comment on above: Order Comment: Speci men Type: BLOOD SPECIMENOrdering Facility: [facility] Address: [address] [place] [address] Performed By: #### 5 8410-2 ####[facility]ATORYCLIA [id number] [place] [address] [place] RBC (Bld) [#/Vol] 4.62 10*6/uL Normal 4.20-6.00 [facility] Comment on above: Order Comment: Speci men Type: BLOOD SPECIMENOrdering Facility: [facility] Address: [address] [place] [address] Performed By: #### 5 8410-2 ####[facility]ORYCLIA [id number] [address] [place] WBC (Bld) [#/Vol] 9.61 10*3/uL Normal 3.70-11.00 [facility] Comment on above: Order Comment: Speci men Type: BLOOD SPECIMENOrdering Facility: [facility] Address: [address] [place] [address] Performed By: #### 5 8410-2 ####[facility]ATORYCLIA [id number] [place] [address] [facility] [place] Magnesium SerPl-mCncon 10-20 Magnesium [Mass/Vol] 2.0 mg/dL Normal 1.7-2.3 [facility] Comment on above: Order Comment: Speci men Type: BLOOD SPECIMENOrdering Facility: [facility] Address: [address] [place] [address] Performed By: #### 2 4321-2, 59803-4 ####[facility]ATORYCLIA [id number] [place] [address] [facility] [place] ALLIED HEALTHon 10-19-2022 ALLIED HEALTH HNO ID: [id number] Author: RT Amelia(R) Service: Radiology Author Type: Technologist Type: Allied Health Filed: 10/19/2022 11:06 AM Note Text: Radiology Service Progress Note PATIENT NAME: Denton Wesley DATE OF SERVICE: October 19, 2022 TIME: 11:05 AM PATIENT IDENTITY VERIFICATION COMPLETED USING TWO (2) IDENTIFIERS: Name and Date of confirmed by patient verbally and Name and Date of confirmed by identification band. FALL SCREENING: Has the patient had 2 falls in the last year or 1 fall with injury or currently using an Ambulatory Assistive Device (Walker, Cane, Wheelchair, Crutches, etc.)? Inpatient: Screened on floor PATIENT GENDER DATA: Male PATIENT RELEVANT IMPLANT DATA REVIEWED: Not Applicable RADIOLOGY DEPARTMENT: General X-ray: Exam(s) Completed: Chest X-Ray PERIPHERAL IV DATA: Not applicable SIGNED BY: RT Parveen(R) October 19, 2022 11:05 AM Normal [facility] Basic metabolic 2000 panelon 10-19-2022 Anion gap [Moles/Vol] 9 mmol/L Normal 9-18 [facility] Comment on above: Order Comment: Speci men Type: BLOOD SPECIMENOrdering Facility: [facility] Address: [address] [place] [address] Performed By: #### 2 4321-2 ####[facility]ATORYCLIA [id number] [place] [address] [place] Calcium [Mass/Vol] 8.7 mg/dL Normal 8.5-10.2 [facility] Comment on above: Order Comment: Speci men Type: BLOOD SPECIMENOrdering Facility: [facility] Address: [address] [place] [address] Performed By: #### 2 4321-2 ####[facility]ORYCLIA [id number] [place] [address] [place] Chloride [Moles/Vol] 102 mmol/L Normal 97-105 [facility] Comment on above: Order Comment: Speci men Type: BLOOD SPECIMENOrdering Facility: [facility] Address: [address] [place] [address] Performed By: #### 2 4321-2 ####[facility]ATORYCLIA [id number] [address] [place] CO2 [Moles/Vol] 27 mmol/L Normal 22-30 [facility] Comment on above: Order Comment: Speci men Type: BLOOD SPECIMENOrdering Facility: [facility] Address: [address] [place] [address] Performed By: #### 2 4321-2 ####[facility]ORYCLIA [id number] [address] [place] Creatinine [Mass/Vol] 0.71 mg/dL Low 0.73-1.22 [facility] Comment on above: Order Comment: Speci men Type: BLOOD SPECIMENOrdering Facility: [facility] Address: [address] [place] [address] Performed By: #### 2 4321-2 ####[facility]ATORYCLIA [id number] [address] [place] ESTIMATED GLOMERULAR FILTRATION RATE 97 mL/min/1.73m??? Normal >=60 [facility] Comment on above: Order Comment: Speci men Type: BLOOD SPECIMENOrdering Facility: [facility] Address: [address] [place], [place] [id number] Result Comment: Pat mated Glomerular Filtration Rate (eGFR) is calculated using the 2020 CKD-EPI creatinine equation. This equation utilizes serum creatinine, sex, and age as parameters. The creatinine assay has traceable calibration to isotope dilution-mass spectrometry. Refer to KDIGO guidelines for clinical interpretation. In patients with unstable renal function, e.g. those with acute kidney injury, the eGFR may not accurately reflect actual GFR. Performed By: #### 2 4321-2 ####[facility]ATORYCLIA [id number] [place] [address] [place] Glucose [Mass/Vol] 114 mg/dL High 74-99 [facility] Comment on above: Order Comment: Rashaun aranda Type: BLOOD SPECIMENOrdering Facility: [facility] Address: [address] [place] [address] Result Comment: The [place] Diabetes Association (ADA) provides guidance for cutoff values for fasting glucose and random glucose. The ADA defines fasting as no caloric intake for at least 8 hours. Fasting plasma glucose results between 100 to 125 mg/dL indicate increased risk for diabetes (prediabetes). Fasting plasma glucose results greater than or equal to 126 mg/dL meet the criteria for diagnosis of diabetes. In the absence of unequivocal hyperglycemia, results should be confirmed by repeat testing. In a patient with classic symptoms of hyperglycemia or hyperglycemic crisis, random plasma glucose results greater than or equal to 200 mg/dL meet the criteria for diagnosis of diabetes. Reference: Standards of Medical Care in Diabetes 2016, [place] Diabetes Association. Diabetes Care. 2016.39(Suppl 1). Performed By: #### 2 4321-2 ####[facility]ATORYCLIA [id number] [place] [address] [place] Potassium [Moles/Vol] 3.9 mmol/L Normal 3.7-5.1 [facility] Comment on above: Order Comment: Rashaun [facility] Type: BLOOD SPECIMENOrdering Facility: [facility] Address: [address] [place], [place] [id number] Performed By: #### 2 4321-2 ####[facility]ATORYCLIA [id number] [address] [place] [facility] Sodium [Moles/Vol] 138 mmol/L Normal 136-144 [facility] Comment on above: Order Comment: Speci men Type: BLOOD SPECIMENOrdering Facility: [facility] Address: [address] [address] Performed By: #### 2 4321-2 ####[facility]ATORYCLIA [id number] [address] [place] Urea nitrogen [Mass/Vol] 14 mg/dL Normal 9-24 [facility] Comment on above: Order Comment: Speci men Type: BLOOD SPECIMENOrdering Facility: [facility] Address: [address] [place] [address] Performed By: #### 2 4321-2 ####[facility]ORYCLIA [id number] [address] [place] [facility] CBC panel Auto (Bld)on 10-19 Erythrocyte distribution width (RBC) [Ratio] 13.3 % Normal 11.5-15.0 [facility] Comment on above: Order Comment: Speci men Type: URINE SPECIMEN Ordering Facility: [facility] Address: [address] [place] [address] Performed By: #### 2 4356-8 #### [facility] CLIA [id number] [address] [place] Hematocrit (Bld) [Volume fraction] 40.2 % Normal 39.0-51.0 [facility] Comment on above: Order Comment: Speci men Type: URINE SPECIMEN Ordering Facility: [facility] Address: [address] [place] [address] Performed By: #### 2 4356-8 #### [facility] CLIA [id number] [address] [place] Hemoglobin (Bld) [Mass/Vol] 12.8 g/dL Low 13.0-17.0 [facility] Comment on above: Order Comment: Speci men Type: URINE SPECIMEN Ordering Facility: [facility] Address: [address] [address] Performed By: #### 2 4356-8 #### [facility] CLIA [id number] [address] MCH (RBC) [Entitic mass] 29.7 pg Normal 26.0-34.0 [facility] Comment on above: Order Comment: Speci men Type: URINE SPECIMEN Ordering Facility: [facility] Address: [address] [address] Performed By: #### 2 4356-8 #### [facility] CLIA [id number] [address] MCHC (RBC) [Mass/Vol] 31.8 g/dL Normal 30.5-36.0 [facility] Comment on above: Order Comment: Speci men Type: URINE SPECIMEN Ordering Facility: [facility] Address: [address] [address] Performed By: #### 2 4356-8 #### [facility] CLIA [id number] [address] MCV (RBC) [Entitic vol] 93.3 fL Normal 80.0-100.0 [facility] Comment on above: Order Comment: Speci men Type: URINE SPECIMEN Ordering Facility: [facility] Address: [address] [address] Performed By: #### 2 4356-8 #### [facility] CLIA [id number] [address] Nucleated RBC (Bld) [#/Vol] 10*3/uL Normal <0.01 [facility] Comment on above: Order Comment: Speci men Type: URINE SPECIMEN Ordering Facility: [facility] Address: [address] [address] Performed By: #### 2 4356-8 #### [facility] CLIA [id number] [address] Platelet mean volume (Bld) [Entitic vol] 9.2 fL Normal 9.0-12.7 [facility] Comment on above: Order Comment: Speci men Type: URINE SPECIMEN [facility]ing Facility: [facility] Address: [address] [place] [address] Performed By: #### 2 4356-8 #### [facility] CLIA [id number] [address] Platelets (Bld) [#/Vol] 191 10*3/uL Normal 150-400 [facility] Comment on above: Order Comment: Speci men Type: URINE SPECIMEN [facility]ing Facility: [facility] Address: [address] [place] [address] Performed By: #### 2 4356-8 #### [facility] CLIA [id number] [address] RBC (Bld) [#/Vol] 4.31 10*6/uL Normal 4.20-6.00 [facility] Comment on above: Order Comment: Speci men Type: URINE SPECIMEN [facility]ing Facility: [facility] Address: [address] [place] [address] Performed By: #### 2 4356-8 #### [facility] CLIA [id number] [address] WBC (Bld) [#/Vol] 10.63 10*3/uL Normal 3.70-11.00 [facility] Comment on above: Order Comment: Speci men Type: URINE SPECIMEN [facility]ing Facility: [facility] Address: [address] [place] [address] Performed By: #### 2 4356-8 #### [facility] CLIA [id number] [address] PT EDon 10-19-2022 PT ED HNO ID: [id number] Author: Padmini Banegas DTR Service: Nutrition Therapy Author Type: Lathmaker Type: Patient Education Filed: 10/19/2022 3:26 PM Note Text: NUTRITION THERAPY PATIENT EDUCATION SERVICE DATE: 10/19/2022 SERVICE TIME: 1216 TOPIC: Diet: heart healthy LEARNING ASSESSMENT Individuals Assessed: Patient Preferred Learning Method: No Preference Barriers to Learning: None Evident LEARNING RESPONSE Instruction Provided to: Patient Patient / Family Response: Verbalizes Understanding Method of Instruction: Teach Back . Individual instruction Written instruction - handouts Verbal instruction Material(s) Provided to Patient: Mediterranean Diet Guidelines Follow-Up Plan: Complete - No need for follow-up Referral (Recommendation): n/a MNT Billing: $ Routine Care : 16-30 minutes SIGNATURE: Padmini Banegas DTR PATIENT NAME: Denton Wesley DATE: October 19, 2022 TIME: 3:25 PM PAGER: Normal [facility] THERAPY NTon 10-19-2022 THERAPY NT HNO ID: [id number] Author: DENNY Arias/Rossana Service: Occupational Therapy Author Type: Occupational Therapist Type: Therapy (PT/OT/Speech/Resp) Filed: 10/19/2022 10:47 AM Note Text: Occupational Therapy Evaluation SERVICE DATE: 10/19/2022 SERVICE TIME: 914 to 939 ROOM: [place] [address] Recommended Discharge Disposition: Home Recommended Discharge Disposition Comments: with family assistance PRN Anticipated Discharge Needs: Physical Assist at Home Physical Assist at Home for: Laundry;Cleaning;Meals;Hiwot pping;Transportation OT 6 Clicks Score: 19 Precautions/Activity Restrictions: Sternal;Fall Risk Current Hospital Course: Patient was admitted on 10/16/22 for an elective CABG. Patient is on sternal precautions. Currently being treated for all medical diagnoses. Reason for Hospital Admission: elective procedure Relevant Past Medical History: CAD, asthma, HTN Response to Therapy Interventions: Good participation in activities Continue skilled needs due to: Functional impairment, Safety concerns Occupational Therapy Problem List: Safety Deficits;Impaired Self Care;Decreased Activity Tolerance;Decreased Strength;Functional Mobility Impairment;Balance Impaired Cognition/Communication Deficits Responsiveness: Alert Follows Commands: 2-step Commands Executive Function Deficits: Safety Awareness Safety Awareness Deficit: Minimal impairment Treatment Interventions: Education;Energy Conservation Training;Self Care / Home Management;Strengthening;F unctional Mobility Training;Balance Training Plan for next visit: Bathing training, Dressing training Home Environment Patient Lives With: Spouse Assistance Available: Part-Time (son can help) Entry To Home: Stairs Number Of Stairs Into Home: 4 Number Of Stairs To Bed/Bath: 0 Equipment Owned: Wheeled Walker;Rollator Prior Functional Level: Within Functional Limits Prior Functional Level Comments: Patient was independent with all functional mobility and was helping to care for his Baseline Cognition: Oriented to self;Oriented to place;Oriented to time Occupational Factors Life Roles: Spouse/Significant Other;Family Member;Friend;Parent Identified Strengths: Good Support System Identified Barriers: Difficulty with ADLs/IADLs Patient Report: agreeable to session CURRENT FUNCTIONAL STATUS: Most recent performance Current Activities of Daily Living Assist Level Additional Information Feeding Set Up Grooming Stand By Assistance See below Bathing Upper Body Minimal Assistance Bathing Lower Body Minimal Assistance Dressing Upper Body Minimal Assistance Dressing Lower Body Minimal Assistance Toileting Contact Guard Assistance Functional Mobility Assist Level Additional Information Rolling Supine to Sit Contact Guard Assistance Sit to Supine Contact Guard Assistance Scooting Contact Guard Assistance Sit to Stand Contact Guard Assistance Stand to Sit Contact Guard Assistance Bed to Chair Toilet/Commode Contact Guard Assistance Shower Functional Mobility Contact Guard Assistance;Additional Information Wheeled Walker functional mobility to commode Blank cardona indicate activity not attempted Range of Motion: WFL Strength: Strength Limitation Comments Strength Limitation Comments: not tested due to sternal precautions Balance: Static Standing;Dynamic Standing Static Standing Balance: Fair Patient able to maintain balance with handhold support, may require occasional minimal assistance Dynamic Standing Balance: Fair Patient accepts minimal challenge, able to maintain balance while turning head/trunk Learning/Educational Needs: Discharge Plan;Disease Process;Equipment;Family Education/Training;Functio nal Activities/Mobility;Precau tions;Rehabilitation Techniques and Procedures;Safety;Self Care Goals for Plan of Care: Patient/Caregiver Goals: Participate in meaningful activities Grooming with: Independent Upper Body Bathing with: Independent Upper Body Dressing with: Independent Lower Body Bathing with: Modified Independent Lower Body Dressing with: Modified Independent Toilet Hygiene with: Independent Chair Transfer with: Supervision Toilet Transfer with: Supervision Tolerate (minutes of functional activity): 35 Functional Activity with: Supervision Demonstrate Competence with Education with: Supervision (sternal precautions) Rehab Potential: Good Patient will be discontinued from Occupational Therapy when no further skilled needs are identified in this setting. PLAN: OT Frequency: 1 time per week Plan of Care developed with: Patient TREATMENT INTERVENTIONS: Therapy Diagnosis: Reduced mobility-other;Decreased activities of daily living (ADL);Muscle Weakness (generalized);Unsteadiness on feet;General symptoms and signs-other Interventions Provided: Evaluation;Self Fdc Management (31376) $ Evaluation-Moderate (28879) Billed Units: 1 unit Self Fdc Managem (more content not included)... Normal [facility] THERAPY NT HNO ID: [id number] Author: Collin Pradhan, PT Service: Physical Therapy Author Type: Physical Therapist Type: Therapy (PT/OT/Speech/Resp) Filed: 10/19/2022 9:39 AM Note Text: Physical Therapy SERVICE DATE: 10/19/2022 SERVICE TIME: 899 to 09 ROOM: [place] [address] Recommended Discharge Disposition: Home Recommended Discharge Disposition Comments: Patient is functioning close to baseline however, he still is experiencing decreased activity tolerance and functional mobility. He is currently at risk for falls/injury. Anticipate that he will make good progress toward goals while in house. Recommend discharge to home with no anticipated skilled PT needs once medically stable. Anticipated Discharge Needs: Physical Assist at Home Physical Assist at Home for: Laundry;Meals;Cleaning;Hiwot pping;Transportation Recommended Discharge Equipment: Wheeled Walker PT 6 Clicks Score: 20 Precautions/Activity Restrictions: Sternal;Fall Risk Current Hospital Course: Patient was admitted on 10/16/22 for an elective CABG. Patient is on sternal precautions. Currently being treated for all medical diagnoses. Reason for Hospital Admission: elective procedure Relevant Past Medical History: CAD, asthma, HTN Physical Therapy Problem List: Decreased Activity Tolerance;Functional Mobility Impairment Treatment Interventions: Education;Balance Training;Neuromuscular Re-education;Functional Mobility Training Home Environment Patient Lives With: Spouse Assistance Available: Part-Time;Other: See Comment (Son is living with him and able to help as needed) Entry To Home: Stairs Number Of Stairs Into Home: 4 Number Of Stairs To Bed/Bath: 0 Equipment Owned: Wheeled Walker;Rollator Prior Functional Level: Within Functional Limits Prior Functional Level Comments: Patient was independent with all functional mobility and was helping to care for his CURRENT FUNCTIONAL STATUS: Most recent performance mobility performed during session in bold, other mobility completed during prior session and may no longer be correct or appropriate to complete. Current Functional Mobility Assist Level Additional Information Rolling Supervision;Additional Information VC's for sternal precautions, increased time. Supine to Sit Supervision;Additional Information VC's for sternal precautions, increased time. Sit to Supine Supervision;Additional Information VC's for sequencing, additional time to complete. Scooting Supervision;Additional Information increased time to complete. Sit to Stand Contact Guard Assistance;Additional Information increased time to complete, VC's for sternal precautions. Stand to Sit Contact Guard Assistance;Additional Information increased time to complete. VC's for sternal precautions. Bed to Chair Toilet/Commode Gait Contact Guard Assistance;Additional Information Gait Device: Wheeled Walker Gait Distance (feet): 50'x2 no LOB noted, patient limited to longer distances secondary to fatigue, increased time to complete. Stairs Curb Step Car Transfer Blank cardona indicate activity not attempted General Deviations/Observations: Angely decreased;Step length decreased Range of Motion: WFL Strength: WFL Activity Tolerance: Standing Activity Standing Activity: ambulation Standing Activity Tolerance (in minutes): 5 JH-HLM: 7: Walk 25 feet or more Learning/Educational Needs: Discharge Plan;Plan of Care;Precautions;Rehabilit ation Techniques and Procedures Goals for Plan of Care: Patient /Caregiver Goals: Go Home Able to Perform HEP with: Independent Rolling with: Independent Transfer Supine to/from Sit with: Independent Transfer Sit to/from Stand with: Supervision Ambulate with: Supervision Distance: 100'x2 Device: Wheeled Walker Ambulate Up and Down Steps with: Supervision Number of Steps: 4 Device: Rail Rehab Potential: Good Patient will be discontinued from Physical Therapy when no further skilled needs are identified in this setting. PLAN: PT Frequency: 3 times per week (1-3x) Plan of Care developed with: Patient TREATMENT INTERVENTIONS: Therapy Diagnosis: Reduced mobility-other Interventions Provided: Evaluation $ Evaluation-Moderate (87484) Billed Units: 1 unit Skilled Treatment Time (minutes): 15 Please see discipline specific clinical documentation flowsheet for complete details for this therapy evaluation/treatment. SIGNATURE: Noelle Plaza, SPT PATIENT NAME: Denton Wesley DATE: October 19, 2022 TIME: 9:34 AM As the licensed Therapist, I was present and guided the care of the patient for the entire session on this date. I reviewed and agree with the documentation corresponding to this therapy visit. SIGNATURE: Collin Pradhan, PT DATE: October 19, 2022 TIME: 9:39 AM Normal [facility] Urinalysis complete panel (U )on 10-19-2022 Bilirubin Ql (U) Negative Normal Negative [facility] Comment on above: Order Comment: Speci men Type: URINE SPECIMENOrdering Facility: [facility] Address: [address] [place] [address] Performed By: #### 2 4356-8 ####[facility]ORATORYCLIA [id number] [address] [place] Clarity (Unsp spec) Clear Normal Clear [facility] Comment on above: Order Comment: Speci men Type: URINE SPECIMENOrdering Facility: [facility] Address: [address] [place] [address] Performed By: #### 2 4356-8 ####[facility]ATORYCLIA [id number] [address] [place] Color (U) Yellow Normal yellow [facility] Comment on above: Order Comment: Speci men Type: URINE SPECIMENOrdering Facility: [facility] Address: [address] [place] [address] Performed By: #### 2 4356-8 ####[facility]ORATORYCLIA [id number] [address] [place] Glucose Test strip (U) [Mass/Vol] 1+ Abnormal Trace, Negative [facility] Comment on above: Order Comment: Speci men Type: URINE SPECIMENOrdering Facility: [facility] Address: [address] [place] [address] Performed By: #### 2 4356-8 ####[facility]ORATORYCLIA [id number] [place] [address] [place] Hemoglobin Ql (U) 3+ Abnormal Negative, Trace [facility] Comment on above: Order Comment: Speci men Type: URINE SPECIMENOrdering Facility: [facility] Address: [address] [place] [address] Performed By: #### 2 4356-8 ####[facility]ATORYCLIA [id number] [address] [place] Ketones Ql (U) 1+ Abnormal Negative, Trace [facility] Comment on above: Order Comment: Speci men Type: URINE SPECIMENOrdering Facility: [facility] Address: [address] [place] [address] Performed By: #### 2 4356-8 ####[facility]ATORYCLIA [id number] [address] Leukocyte esterase Test strip Ql (U) Negative Normal Negative, 25 Bri/mL [facility] Comment on above: Order Comment: Speci men Type: URINE SPECIMENOrdering Facility: [facility] Address: [address] [place] [address] Performed By: #### 2 4356-8 ####[facility]ATORYCLIA [id number] [address] Nitrite Ql (U) Negative Normal Negative [facility] Comment on above: Order Comment: Speci men Type: URINE SPECIMENOrdering Facility: [facility] Address: [address] [place] [address] Performed By: #### 2 4356-8 ####[facility]ATORYCLIA [id number] [address] pH (U) 6.0 [pH] Normal 5.0-8.0 [facility] Comment on above: Order Comment: Speci men Type: URINE SPECIMENOrdering Facility: [facility] Address: [address] [place] [address] Performed By: #### 2 4356-8 ####[facility]ATORYCLIA [id number] [address] Protein (U) [Mass/Vol] 1+ Abnormal Trace , Negative [facility] Comment on above: Order Comment: Speci men Type: URINE SPECIMENOrdering Facility: [facility] Address: [address] [place] [address] Performed By: #### 2 4356-8 ####[facility]ORATORYCLIA [id number] [address] RBC LM.HPF (Urine sed) [#/Area] /[HPF] Abnormal 0-3 /HPF [facility] Comment on above: Order Comment: Speci men Type: URINE SPECIMENOrdering Facility: [facility] Address: [address] [place] [address] Performed By: #### 2 4356-8 ####[facility]ATORYCLIA [id number] [address] Specific gravity (U) [Rel density] 1.021 Normal 1.005-1.030 [facility] Comment on above: Order Comment: Speci men Type: URINE SPECIMENOrdering Facility: [facility] Address: [address] [place] [address] Performed By: #### 2 4356-8 ####[facility]ATORYCLIA [id number] [address] Urobilinogen Ql (U) Normal Normal Negative [facility] Comment on above: Order Comment: Speci men Type: URINE SPECIMENOrdering Facility: [facility] Address: [address] [place] [address] Performed By: #### 2 4356-8 ####[facility]ORATORYCLIA [id number] [address] [place] [facility] WBC LM.HPF (Urine sed) [#/Area] 6-10 /HPF Abnormal 0-5 /HPF [facility] Comment on above: Order Comment: Speci men Type: URINE SPECIMENOrdering Facility: [facility] Address: [address] [place] [address] Performed By: #### 2 4356-8 ####[facility]ORATORYCLIA [id number] [address] [place] XR CHEST 2V FRONTAL/LATon XR CHEST 2V FRONTAL/LAT * * *Final Report* * * DATE OF EXAM: Oct 19 2022 11:08AM AKX [id number] - XR CHEST 2V FRONTAL/LAT / PROCEDURE REASON: Post-operative / post-procedure assessment, asymptomatic * * * * Physician Interpretation * * * * EXAMINATION: CHEST RADIOGRAPH (2 VIEW FRONTAL and LATERAL) CLINICAL HISTORY: Post-operative / post-procedure assessment, asymptomatic MQ: XC2_6 EXAM DATE/TIME: 10/19/2022 11:08 AM COMPARISON: Multiple prior chest radiographs, the most recent 10/18/2022, including 10/12/2022, and CT chest study 06/29/2022. RESULT: Lines, tubes, and devices: Interval removal of mediastinal drain and left-sided chest tube. Remaining right internal jugular central venous catheter terminating in profile with the SVC. Overlying cardiac monitoring leads. Lungs and pleura: Concern for small left apical pneumothorax. Bibasilar pulmonary parenchymal opacities with possible small pleural effusions. Cardiomediastinal silhouette: Stable cardiomediastinal silhouette. Bones and soft tissues: Median sternotomy cerclage wires. IMPRESSION: Interval removal of left-sided chest tube with concern for small left apical pneumothorax. Bibasilar pulmonary parenchymal opacities suggesting atelectasis with possible bilateral small pleural effusions. Interval removal of mediastinal drain. 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 Transcribe Date/Time: Oct 19 2022 1:04P Dictated by : ROBERTO DEJESUS MD This examination was interpreted and the report reviewed and electronically signed by: ROBERTO DEJESUS MD on Oct 19 2022 1:11PM EST [id number] Normal [facility] ALLIED HEALTHon 10-18-2022 ALLIED HEALTH HNO ID: [id number] Author: RT Connor(Maryjane) Service: ? Author Type: Technologist Type: Allied Health Filed: 10/18/2022 4:42 AM Note Text: Radiology Service Progress Note PATIENT NAME: Denton Wesley DATE OF SERVICE: October 18, 2022 TIME: 4:42 AM PATIENT IDENTITY VERIFICATION COMPLETED USING TWO (2) IDENTIFIERS: Name and Date of confirmed by patient verbally and Name and Date of confirmed by identification band. FALL SCREENING: Has the patient had 2 falls in the last year or 1 fall with injury or currently using an Ambulatory Assistive Device (Walker, Cane, Wheelchair, Crutches, etc.)? Inpatient: Screened on floor PATIENT GENDER DATA: Male PATIENT RELEVANT IMPLANT DATA REVIEWED: Not Applicable RADIOLOGY DEPARTMENT: General X-ray: Exam(s) Completed: Chest X-Ray PERIPHERAL IV DATA: Not applicable SIGNED BY: RT Connor(R) October 18, 2022 4:42 AM Normal [facility] Basic metabolic 2000 panelon 10-18-2022 Anion gap [Moles/Vol] 11 mmol/L Normal 9-18 [facility] Comment on above: Order Comment: Speci men Type: BLOOD SPECIMENOrdering Facility: [facility] Address: [address] [place] [address] Performed By: #### 2 4321-2, ####[facility]ORATORYCLIA [id number] [place] [address] [place] Calcium [Mass/Vol] 8.8 mg/dL Normal 8.5-10.2 [facility] Comment on above: Order Comment: Speci men Type: BLOOD SPECIMENOrdering Facility: [facility] Address: [address] [place] [address] Performed By: #### 2 4320-2, ####[facility]ORATORYCLIA [id number] [place] [address] [place] Chloride [Moles/Vol] 102 mmol/L Normal 97-105 [facility] Comment on above: Order Comment: Speci men Type: BLOOD SPECIMENOrdering Facility: [facility] Address: [address] [place] [address] Performed By: #### 2 4320-2, ####[facility]ORATORYCLIA [id number] [place] [address] [place] CO2 [Moles/Vol] 24 mmol/L Normal 22-30 [facility] Comment on above: Order Comment: Speci men Type: BLOOD SPECIMENOrdering Facility: [facility] Address: [address] [place] [address] Performed By: #### 2 4320-2, ####[facility]ORATORYCLIA [id number] [place] [address] [place] Creatinine [Mass/Vol] 0.82 mg/dL Normal 0.73-1.22 [facility] Comment on above: Order Comment: Speci men Type: BLOOD SPECIMENOrdering Facility: [facility] Address: [facility] [place] [address] Performed By: #### 2 4321-2, ####[facility]ENTERIA [id number] [address] OF [facility] ESTIMATED GLOMERULAR FILTRATION RATE 93 mL/min/1.73m??? Normal >=60 [facility] Comment on above: Order Comment: Rashaun aranda Type: BLOOD SPECIMENOrdering Facility: [facility] Address: [place] [address] Result Comment: Pat mated Glomerular Filtration Rate (eGFR) is calculated using the 2020 CKD-EPI creatinine equation. This equation utilizes serum creatinine, sex, and age as parameters. The creatinine assay has traceable calibration to isotope dilution-mass spectrometry. Refer to KDIGO guidelines for clinical interpretation. In patients with unstable renal function, e.g. those with acute kidney injury, the eGFR may not accurately reflect actual GFR. Performed By: #### 2 4321-2, 39574-9 ####[facility]ENTERIA [id number] [place] [address] [place] Glucose [Mass/Vol] 151 mg/dL High 74-99 [facility] Comment on above: Order Comment: Rashaun aranda Type: BLOOD SPECIMENOrdering Facility: [facility] Address: [address] [place] [address] Result Comment: The [place] Diabetes Association (ADA) provides guidance for cutoff values for fasting glucose and random glucose. The ADA defines fasting as no caloric intake for at least 8 hours. Fasting plasma glucose results between 100 to 125 mg/dL indicate increased risk for diabetes (prediabetes). Fasting plasma glucose results greater than or equal to 126 mg/dL meet the criteria for diagnosis of diabetes. In the absence of unequivocal hyperglycemia, results should be confirmed by repeat testing. In a patient with classic symptoms of hyperglycemia or hyperglycemic crisis, random plasma glucose results greater than or equal to 200 mg/dL meet the criteria for diagnosis of diabetes. Reference: Standards of Medical Care in Diabetes 2016, [place] Diabetes Association. Diabetes Care. 2016.39(Suppl 1). Performed By: #### 2 4321-2, ####[facility]ENTERIA [id number] [place] [address] [place] Potassium [Moles/Vol] 4.0 mmol/L Normal 3.7-5.1 [facility] Comment on above: Order Comment: Speci men Type: BLOOD SPECIMENOrdering Facility: [facility] Address: [address] [place] [address] Performed By: #### 2 4321-2, ####[facility]ORATORYCLIA [id number] [address] [place] Sodium [Moles/Vol] 137 mmol/L Normal 136-144 [facility] Comment on above: Order Comment: Speci men Type: BLOOD SPECIMENOrdering Facility: [facility] Address: [address] [place] [address] Performed By: #### 2 4321-2, ####[facility]ORATORYCLIA [id number] [address] STATES OF [facility] Urea nitrogen [Mass/Vol] 13 mg/dL Normal 9-24 [facility] Comment on above: Order Comment: Speci men Type: BLOOD SPECIMENOrdering Facility: [facility] Address: [address] [place] [address] Performed By: #### 2 4321-2, 11707-9 ####[facility]ATORYCLIA [id number] [address] STATES OF [facility] CBC panel Auto (Bld)on 10-18 Erythrocyte distribution width (RBC) [Ratio] 13.5 % Normal 11.5-15.0 [facility] Comment on above: Order Comment: Speci men Type: URINE SPECIMEN Ordering Facility: [facility] Address: [address] [place] [address] Performed By: #### 2 4356-8 #### [facility] CLIA [id number] [address] OF [facility] Hematocrit (Bld) [Volume fraction] 42.6 % Normal 39.0-51.0 [facility] Comment on above: Order Comment: Speci men Type: URINE SPECIMEN Ordering Facility: [facility] Address: [address] [place] [address] Performed By: #### 2 4356-8 #### [facility] CLIA [id number] [address] Hemoglobin (Bld) [Mass/Vol] 13.8 g/dL Normal 13.0-17.0 [facility] Comment on above: Order Comment: Speci men Type: URINE SPECIMEN Ordering Facility: [facility] Address: [address] [place] [address] Performed By: #### 2 4356-8 #### [facility] CLIA [id number] [address] MCH (RBC) [Entitic mass] 29.9 pg Normal 26.0-34.0 [facility] Comment on above: Order Comment: Speci men Type: URINE SPECIMEN Ordering Facility: [facility] Address: [address] [place] [address] Performed By: #### 2 4356-8 #### [facility] CLIA [id number] [address] MCHC (RBC) [Mass/Vol] 32.4 g/dL Normal 30.5-36.0 [facility] Comment on above: Order Comment: Speci men Type: URINE SPECIMEN Ordering Facility: [facility] Address: [address] [place] [address] Performed By: #### 2 4356-8 #### [facility] CLIA [id number] [address] MCV (RBC) [Entitic vol] 92.4 fL Normal 80.0-100.0 [facility] Comment on above: Order Comment: Speci men Type: URINE SPECIMEN Ordering Facility: [facility] Address: [address] [place] [address] Performed By: #### 2 4356-8 #### [facility] CLIA [id number] [address] Nucleated RBC (Bld) [#/Vol] 10*3/uL Normal <0.01 [facility] Comment on above: Order Comment: Speci men Type: URINE SPECIMEN Ordering Facility: [facility] Address: [address] [place] [address] Performed By: #### 2 4356-8 #### [facility] CLIA [id number] [address] [place] Platelet mean volume (Bld) [Entitic vol] 9.4 fL Normal 9.0-12.7 [facility] Comment on above: Order Comment: Speci men Type: URINE SPECIMEN Ordering Facility: [facility] Address: [address] [place] [address] Performed By: #### 2 4356-8 #### [facility] CLIA [id number] [address] [place] Platelets (Bld) [#/Vol] 221 10*3/uL Normal 150-400 [facility] Comment on above: Order Comment: Speci men Type: URINE SPECIMEN Ordering Facility: [facility] Address: [address] [place] [address] Performed By: #### 2 4356-8 #### [facility] CLIA [id number] [address] STATES OF [facility] RBC (Bld) [#/Vol] 4.61 10*6/uL Normal 4.20-6.00 [facility] Comment on above: Order Comment: Speci men Type: URINE SPECIMEN Ordering Facility: [facility] Address: [address] [address] Performed By: #### 2 4356-8 #### [facility] CLIA [id number] [address] [place] WBC (Bld) [#/Vol] 14.71 10*3/uL High 3.70-11.00 [facility] Comment on above: Order Comment: Speci men Type: URINE SPECIMEN Ordering Facility: [facility] Address: [address] [place] [address] Performed By: #### 2 4356-8 #### [facility] CLIA [id number] [address] [id number] [facility] CONSULTon 10-18-2022 CONSULT HNO ID: [id number] Author: Aris Tolbert DO Service: Urology Author Type: Physician Type: Consults Filed: 10/22/2022 10:07 AM Note Text: Urology Inpatient Consultation 10/16/2022 HISTORY OF PRESENT ILLNESS: The patient is a 72 year old male known to Dr. Tolbert for a history of GG3 prostate cancer Erica 4+3=7 in 2 cores, Eugene 3+4=7 in 3 cores who presents following CABG on 10/16/2022. Patient was last seen in office by Dr. Tolbert on 08/05/22. At that time, previous imaging (CT pelvis) was negative. Bone scan, Decipher biopsy test, and MRI prostate were pending. Urology consulted for urinary retention and patient's history of prostate cancer. Patient's Mendiola catheter was removed on 10/17. He has voided on his own multiple times. Most recently he was straight catheterized for 700cc this AM. Patient denies dysuria, hematuria, and incomplete emptying prior to admission. When asked about his MRI and bone scan, states I haven't had time to get around to that yet. PAST MEDICAL HISTORY: PAST MEDICAL HISTORY Diagnosis Date Abdominal pain, other specified site Asthma Awareness under anesthesia CAD (coronary artery disease) Cholelithiasis 09/25/2013 Colitis Diabetes mellitus (HCC) type 2 diet controlled Esophageal reflux Gastroesophageal reflux Hypertension Impotence of organic origin Impotence SUJEY (obstructive sleep apnea) RUQ abdominal pain 09/25/2013 PAST SURGICAL HISTORY: PAST SURGICAL HISTORY Procedure Laterality Date COLONOSCOPY FLX DX W/COLLJ SPEC WHEN PFRMD Colonoscopy Dr. Ferreira ESOPHAGOGASTRODUODENOSCOPY TRANSORAL DIAGNOSTIC EGD Dr. Ferreira LAPAROSCOPY SURG CHOLECYSTECTOMY 09/25/2013 PAST SURGICAL HISTORY OF IANDD left hand PAST SURGICAL HISTORY OF Removal cyst on back PROSTATE BIOPSY GUKI 07/14/2022 STENT PLACEMENT 4 Stents ALLERGIES: ALLERGIES Allergen Reactions Gemfibrozil Intolerance Rosuvastatin Intolerance Simvastatin Intolerance Imdur [Isosorbide] Other: See Comments Headaches, upset stomach, fatigue Penicillins Other: See Comments passed out and felt like I had the flu Pt states he's no longer allergic to this, he's taken tests w/out issues. Pravastatin Myalgia HOME MEDICATIONS: perflutren lipid microspheres 1.3 mL in NaCl (PF) 0.9% 10 mL injection (DEFINITY), , INTRAVENOUS, DIRECTED PRN, Shanelle Steve, OIL TREATER.TECHNICAL SUPPORT CONSULTANT sodium chloride 0.9 % (flush) 10 mL (BD POSIFLUSH), 10 mL, INTRAVENOUS, DIRECTED PRN, Shanelle Steve, OIL TREATER.TECHNICAL SUPPORT CONSULTANT perflutren lipid microspheres 1.3 mL in NaCl (PF) 0.9% 10 mL injection (DEFINITY), , INTRAVENOUS, DIRECTED PRN, Yue Martinez APRN.TECHNICAL SUPPORT CONSULTANT sodium chloride 0.9 % (flush) 10 mL (BD POSIFLUSH), 10 mL, INTRAVENOUS, DIRECTED PRN, Yue Martinez APRN.TECHNICAL SUPPORT CONSULTANT acetaminophen (TYLENOL) 325 mg tablet, Take 325 mg by mouth every 6 hours as needed., Disp: , Rfl: , 10/16/2022 at 0430 guaiFENesin (MUCINEX) 600 mg 12 hr tablet, Take 1 tablet by mouth twice daily as needed for cold/allergy symptoms., Disp: , Rfl: , 10/14/2022 loratadine (CLARITIN) 10 mg tablet, Take 1 tablet by mouth once daily., Disp: , Rfl: , 10/09/2022 nitroglycerin sublingual (NITROQUICK) 0.4 mg SL tablet, Dissolve 0.4 mg under the tongue every 5 minutes as needed., Disp: , Rfl: , Unknown carvedilol (COREG) 25 mg tablet, Take 1.5 tablets by mouth twice daily with meals., Disp: 90 tablet, Rfl: 11, 10/15/2022 lansoprazole (PREVACID) 30 mg capsule, Take 1 capsule by mouth daily before breakfast. 1/2 hr before meal., Disp: 30 capsule, Rfl: 5, 10/15/2022 losartan (COZAAR) 100 mg tablet, Take 1 tablet by mouth once daily., Disp: 30 tablet, Rfl: 5, 10/15/2022 tamsulosin (FLOMAX) 0.4 mg, Take 1 capsule by mouth daily at bedtime., Disp: 90 capsule, Rfl: 3, 10/15/2022 FARXIGA 10 mg tablet, Take 10 mg by mouth once daily., Disp: , Rfl: clopidogrel (PLAVIX) 75 mg tablet, Take 1 tablet by mouth once daily., Disp: 90 tablet, Rfl: 3 ADVAIR DISKUS 500-50 mcg/dose dsdv, INHALE 1 (ONE) puff EVERY 12 HOURS, Disp: , Rfl: , 10/16/2022 at 0430 alirocumab (PRALUENT PEN) 75 mg/mL pen, Inject 1 mL subcutaneously every other week., Disp: 2 mL, Rfl: 11, 10/02/2022 FAMILY HISTORY: Family History Problem Relation Age of Onset Colon Cancer Mother Heart Mother Ovarian cancer Mother Prostate Cancer Brother Stroke Brother Emphysema Father Social History: Tobacco Use: Quit 10/27/2011. Types: Cigarettes Alcohol Use: Yes (1 beer in the evening occasionally) ROS: Constitutional: negative for chills and fevers HEENT: no blurry vision or eye redness Respiratory: negative for hemoptysis and shortness of breath Cardiovascular: negative for dyspnea and syncope Gastrointestinal: negative for jaundice, nausea and vomiting Genitourinary:negative for dysuria and hematuria Hematologic/lymphatic: negative for bleeding Integumentary: no new bruises or lesions Musculoskeletal:negative for muscle weakness Neurological: n (more content not included)... Normal [facility] Magnesium SerPl-mCncon 10-18 Magnesium [Mass/Vol] 1.8 mg/dL Normal 1.7-2.3 [facility] Comment on above: Order Comment: Speci men Type: BLOOD SPECIMENOrdering Facility: [facility] Address: [address] [place] [id number] Performed By: #### 2 4321-2, 46325-7 ####[facility] [id number] [place] [address] [place] XR CHEST 1V FRONTALon 2022 XR CHEST 1V FRONTAL * * *Final Report* * * DATE OF EXAM: Oct 18 2022 4:37AM [id number] [id number] - XR CHEST 1V FRONTAL / PROCEDURE REASON: Post-operative / post-procedure assessment, asymptomatic * * * * Physician Interpretation * * * * EXAMINATION: CHEST RADIOGRAPH (SINGLE VIEW AP OR PA) CLINICAL HISTORY: Post-operative / post-procedure assessment, asymptomatic MQ: XC1_5 Comparison: 10/17/2022. RESULT: Lines, tubes, and devices: Unchanged position of the right-sided central venous catheter and left chest tube. Lungs and pleura: Mild interval increase in the areas of atelectasis or pneumonia at the left lung base and small left pleural effusion. Unchanged small areas of airspace disease at the right lung base. Cardiomediastinal silhouette: No cardiomegaly. Status post midline sternotomy. IMPRESSION: Mild increase in areas of atelectasis or pneumonia at the left lung base and small left pleural effusion. Unchanged small areas of airspace disease at the right lung base. 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 Transcribe Date/Time: Oct 18 2022 8:55A Dictated by : MIAN CYR MD This examination was interpreted and the report reviewed and electronically signed by: MIAN CYR MD on Oct 18 2022 8:58AM EST [id number] Normal [facility] ALLIED HEALTHon 10-17-2022 ALLIED HEALTH HNO ID: [id number] Author: RT Chris(R) Service: ? Author Type: Technologist Type: Allied Health Filed: 10/17/2022 5:04 AM Note Text: Radiology Service Progress Note PATIENT NAME: Denton Wesley DATE OF SERVICE: October 17, 2022 TIME: 5:03 AM PATIENT IDENTITY VERIFICATION COMPLETED USING TWO (2) IDENTIFIERS: Name and Date of confirmed by identification band. FALL SCREENING: Has the patient had 2 falls in the last year or 1 fall with injury or currently using an Ambulatory Assistive Device (Walker, Cane, Wheelchair, Crutches, etc.)? Inpatient: Screened on floor PATIENT GENDER DATA: Male PATIENT RELEVANT IMPLANT DATA REVIEWED: Not Applicable RADIOLOGY DEPARTMENT: General X-ray: Exam(s) Completed: Chest X-Ray PERIPHERAL IV DATA: Not applicable SIGNED BY: RT Edda(R) October 17, 2022 5:03 AM Normal [facility] ANES POSTPROC EVALon 023 ANES POSTPROC EVAL HNO ID: [id number] Author: Sharon Ernst MD Service: Anesthesiology Author Type: Physician Type: Anesthesia Postprocedure Evaluation Filed: 10/26/2022 10:56 AM Note Text: POST ANESTHESIA EVALUATION NOTE : 1950 Procedure Summary Date: 10/16/22 Room / Location: VT OR / VT OR Anesthesia Start: 734 Anesthesia Stop: 1451 Procedures: BYPASS GRAFT ARTERY CORONARY ON-PUMP SINGLE CORONARY ARTERIAL GRAFT (Chest) BYPASS GRAFT ARTERY CORONARY ON-PUMP USING VENOUS GRAFT(S) AND ARTERIAL GRAFT(S) SINGLE VEIN GRAFT (Chest) ENDOSCOPIC HARVEST VEIN FOR CORONARY ARTERY BYPASS PROCEDURE Diagnosis: 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) (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) [I25.118]) Surgeons: Brian Colmenares MD Responsible Provider: Sharon Ernst MD Anesthesia Type: general ASA Status: 4 Anesthesia Type: general Last Vitals Vitals Value Taken Time BP 149/82 10/23/22 1500 Temp 36.8 ?C (98.2 ?F) 10/23/22 1500 Pulse 75 10/23/22 1135 Resp 18 10/23/22 1500 SpO2 98 % 10/23/22 1500 Post Anesthesia Patient Status Patient Evaluation: bedside. Anticipated Disposition: ICU planned admission. Intraoperative Events: no significant anesthesia events Anesthesia Observations No Documentation SIGNATURE: Sharon Ernst MD PATIENT NAME: Denton Wesley DATE: October 26, 2022 TIME: 10:56 AM CSN: [id number] Normal [facility] Basic metabolic 2000 panelon 10-17-2022 Anion gap [Moles/Vol] 9 mmol/L Normal 9-18 [facility] Comment on above: Order Comment: Speci men Type: URINE SPECIMEN Ordering Facility: [facility] Address: [address] [place] [phone] Performed By: #### 2 4356-8 #### [facility] CLIA [id number] 1 [place] [address] [place] Calcium [Mass/Vol] 8.5 mg/dL Normal 8.5-10.2 [facility] Comment on above: Order Comment: Speci men Type: URINE SPECIMEN Ordering Facility: [facility] Address: [address] [place] [address] Performed By: #### 2 4356-8 #### [facility] CLIA [id number] [address] [place] Chloride [Moles/Vol] 107 mmol/L High 97-105 [facility] Comment on above: Order Comment: Speci men Type: URINE SPECIMEN Ordering Facility: [facility] Address: [address] [place] [address] Performed By: #### 2 4356-8 #### [facility] CLIA [id number] [address] [place] CO2 [Moles/Vol] 22 mmol/L Normal 22-30 [facility] Comment on above: Order Comment: Speci men Type: URINE SPECIMEN Ordering Facility: [facility] Address: [address] [place] [address] Performed By: #### 2 4356-8 #### [facility] CLIA [id number] [address] [place] Creatinine [Mass/Vol] 0.85 mg/dL Normal 0.73-1.22 [facility] Comment on above: Order Comment: Speci men Type: URINE SPECIMEN Ordering Facility: [facility] Address: [address] [place] [address] Performed By: #### 2 4356-8 #### [facility] CLIA [id number] [address] [place] [address] ESTIMATED GLOMERULAR FILTRATION RATE 92 mL/min/1.73m??? Normal >=60 [facility] Comment on above: Order Comment: Speci men Type: URINE SPECIMEN Ordering Facility: [facility] Address: [address] [place] [address] Result Comment: Pat mated Glomerular Filtration Rate (eGFR) is calculated using the 2020 CKD-EPI creatinine equation. This equation utilizes serum creatinine, sex, and age as parameters. The creatinine assay has traceable calibration to isotope dilution-mass spectrometry. Refer to KDIGO guidelines for clinical interpretation. In patients with unstable renal function, e.g. those with acute kidney injury, the eGFR may not accurately reflect actual GFR. Performed By: #### 2 4356-8 #### [facility] CLIA [id number] 1 [place] [address] [place] Glucose [Mass/Vol] 102 mg/dL High 74-99 [facility] Comment on above: Order Comment: Speci men Type: URINE SPECIMEN Ordering Facility: [facility] Address: [address] [address] Result Comment: The [place] Diabetes Association (ADA) provides guidance for cutoff values for fasting glucose and random glucose. The ADA defines fasting as no caloric intake for at least 8 hours. Fasting plasma glucose results between 100 to 125 mg/dL indicate increased risk for diabetes (prediabetes). Fasting plasma glucose results greater than or equal to 126 mg/dL meet the criteria for diagnosis of diabetes. In the absence of unequivocal hyperglycemia, results should be confirmed by repeat testing. In a patient with classic symptoms of hyperglycemia or hyperglycemic crisis, random plasma glucose results greater than or equal to 200 mg/dL meet the criteria for diagnosis of diabetes. Reference: Standards of Medical Care in Diabetes 2016, [place] Diabetes Association. Diabetes Care. 2016.39(Suppl 1). Performed By: #### 2 4356-8 #### [facility] CLIA [id number] 1 [place] [address] [place] Potassium [Moles/Vol] 4.5 mmol/L Normal 3.7-5.1 [facility] Comment on above: Order Comment: Speci men Type: URINE SPECIMEN Ordering Facility: [facility] Address: [address] [address] Performed By: #### 2 4356-8 #### [facility] CLIA [id number] 1 [place] [address] [place] Sodium [Moles/Vol] 138 mmol/L Normal 136-144 [facility] Comment on above: Order Comment: Speci men Type: URINE SPECIMEN Ordering Facility: [facility] Address: [address] [address] Performed By: #### 2 4356-8 #### [facility] CLIA [id number] [address] [place] [facility] Urea nitrogen [Mass/Vol] 14 mg/dL Normal 9-24 [facility] Comment on above: Order Comment: Speci men Type: URINE SPECIMEN Ordering Facility: [facility] Address: [address] [place] [address] Performed By: #### 2 4356-8 #### [facility] CLIA [id number] [address] CBC panel Auto (Bld)on 10-17 Erythrocyte distribution width (RBC) [Ratio] 13.4 % Normal 11.5-15.0 [facility] Comment on above: Order Comment: Speci men Type: URINE SPECIMEN Ordering Facility: [facility] Address: [address] [place] [address] Performed By: #### 2 4356-8 #### [facility] CLIA [id number] [address] Hematocrit (Bld) [Volume fraction] 39.6 % Normal 39.0-51.0 [facility] Comment on above: Order Comment: Speci men Type: URINE SPECIMEN Ordering Facility: [facility] Address: [address] [place] [address] Performed By: #### 2 4356-8 #### [facility] CLIA [id number] [address] Hemoglobin (Bld) [Mass/Vol] 13.1 g/dL Normal 13.0-17.0 [facility] Comment on above: Order Comment: Speci men Type: URINE SPECIMEN Ordering Facility: [facility] Address: [address] [place] [address] Performed By: #### 2 4356-8 #### [facility] CLIA [id number] [address] [place] MCH (RBC) [Entitic mass] 30.2 pg Normal 26.0-34.0 [facility] Comment on above: Order Comment: Speci men Type: URINE SPECIMEN Ordering Facility: [facility] Address: [address] [address] Performed By: #### 2 4356-8 #### [facility] CLIA [id number] [address] MCHC (RBC) [Mass/Vol] 33.1 g/dL Normal 30.5-36.0 [facility] Comment on above: Order Comment: Speci men Type: URINE SPECIMEN Ordering Facility: [facility] Address: [address] [address] Performed By: #### 2 4356-8 #### [facility] CLIA [id number] [address] MCV (RBC) [Entitic vol] 91.2 fL Normal 80.0-100.0 [facility] Comment on above: Order Comment: Speci men Type: URINE SPECIMEN Ordering Facility: [facility] Address: [address] [address] Performed By: #### 2 4356-8 #### [facility] CLIA [id number] [address] Nucleated RBC (Bld) [#/Vol] 10*3/uL Normal <0.01 [facility] Comment on above: Order Comment: Speci men Type: URINE SPECIMEN Ordering Facility: [facility] Address: [address] [address] Performed By: #### 2 4356-8 #### [facility] CLIA [id number] [address] Platelet mean volume (Bld) [Entitic vol] 9.3 fL Normal 9.0-12.7 [facility] Comment on above: Order Comment: Speci men Type: URINE SPECIMEN Ordering Facility: [facility] Address: [address] [address] Performed By: #### 2 4356-8 #### [facility] CLIA [id number] [address] [place] [address] Platelets (Bld) [#/Vol] 201 10*3/uL Normal 150-400 [facility] Comment on above: Order Comment: Speci men Type: URINE SPECIMEN Ordering Facility: [facility] Address: [address] [place] [address] Performed By: #### 2 4356-8 #### [facility] CLIA [id number] [address] OF [facility] RBC (Bld) [#/Vol] 4.34 10*6/uL Normal 4.20-6.00 [facility] Comment on above: Order Comment: Speci men Type: URINE SPECIMEN Ordering Facility: [facility] Address: [address] [place] [address] Performed By: #### 2 4356-8 #### [facility] CLIA [id number] [address] WBC (Bld) [#/Vol] 14.09 10*3/uL High 3.70-11.00 [facility] Comment on above: Order Comment: Speci men Type: URINE SPECIMEN Ordering Facility: [facility] Address: [address] [place] [address] Performed By: #### 2 4356-8 #### [facility] CLIA [id number] [address] ECG COMPLETEon 10-17-2022 ECG COMPLETE Ventricular Rate : 7 3 BPM Atrial Rate : 73 BPM P-R Interval : 166 ms QRS Duration : 96 ms Q-T Interval : 388 ms QTC Calculation(Bazett) : 427 ms Calculated P Johnson : 42 degrees Calculated R Johnson : 9 degrees Calculated T Johnson : 4 degrees NORMAL SINUS RHYTHM MINIMAL VOLTAGE CRITERIA FOR LVH, MAY BE NORMAL VARIANT ( R in aVL ) INFERIOR INFARCT , AGE UNDETERMINED nonspecific ST elevation WHEN COMPARED WITH ECG OF 20-MAR-2016 04:28, ST NO LONGER ELEVATED IN INFERIOR LEADS ST ELEVATION NOW PRESENT IN LATERAL LEADS Confirmed by MD ASAD, OHLLI ([id number]) on 10/18/2022 11:47:23 AM NAME : DENTON WESLEY PID : [id number] : 1950 Gender : Male Race : ORD : [id number] Procedure Date : Oct 17 2022 05:53:42 Edit Date : Oct 18 2022 11:47:25 Diagnosis: NORMAL SINUS RHYTHM MINIMAL VOLTAGE CRITERIA FOR LVH, MAY BE NORMAL VARIANT ( R in aVL ) INFERIOR INFARCT , AGE UNDETERMINED nonspecific ST elevation WHEN COMPARED WITH ECG OF 20-MAR-2016 04:28, ST NO LONGER ELEVATED IN INFERIOR LEADS ST ELEVATION NOW PRESENT IN LATERAL LEADS Confirmed by MD LANDA DAVID ([id number]) on 10/18/2022 11:47:23 AM Test Reason : Post-OP Location : [address] : [address] [address] Overread By : MD LANDA DAVID Edited By : MD LANDA DAVID Referred By : BRIAN COLMENARES Acquired by : JAIME WILHELM [facility] Magnesium SerPl-mCncon 10-17 Magnesium [Mass/Vol] 2.0 mg/dL Normal 1.7-2.3 [facility] Comment on above: Order Comment: Speci men Type: BLOOD SPECIMENOrdering Facility: [facility] Address: [address] [place] [address] Performed By: #### 1 9123-9, 38207-5 ####[facility] [id number] [address] OF [facility] NUTRITIONon 10-17-2022 NUTRITION HNO ID: [id number] Author: Violette Montoya RD Service: Nutrition Therapy Author Type: Registered Dietitian Type: Nutrition Filed: 10/17/2022 2:38 PM Note Text: INITIAL ASSESSMENT SERVICE DATE: 10/17/2022 SERVICE TIME: 01:04 PM Nutrition Assessment: Recommended Malnutrition Diagnosis: No Malnutrition Identified Nutrition Diagnosis: Problem: Increased nutrient needs Related to: Acute illness As evidenced by: Medical condition;Procedure/surger y Estimated kilocalorie needs: Calorie Calculation Method: 25-30 kcals/kg Estimated protein needs (grams): 97-121 Grams protein determined by: 1.2 - 1.5 g/kg;[place] body weight Care Plan: Change diet to CHO controlled and heart healthy Supplements: Impact AR (BID) Monitor and Evaluation: Meet greater than 75% of estimated needs;Monitor bowel function;Monitor fluid/electrolyte balance;Monitor labs, I/Os, vital signs, weight Discharge Recommendations: Diet Diet: Heart healthy and CHO controlled HPI: 72 yo male, LOS 2 days, s/p CABG xx on 10/16, on heart healthy diet with fair po today - ate 50% of breakfast and lunch - reports good appetite/intake prior to admit, BM 10/15 per patient. Meds and labs reviewed - lytes noted, WBC elevated, afebrile, noted edema with wt 103.1 kg, and GI with hypoactive bowel sounds. Intake History: Nutrition Intake Prior to Admission: Greater than 75% estimated energy needs greater than or equal to 3 months Current Nutrition Intake: Less than 50% estimated energy needs Current Intake Over time: (1 day) Diet Orders (From admission, onward) Start Ordered 10/17/22 0645 DIET HEART HEALTHY START NOW Question: Heart Healthy Answer: 2 GM SODIUM (LOW SAT FAT) 10/17/22 0633 Anthropometrics: Height: 182.9 cm (6') Weight: 103.1 kg (227 lb 4.7 oz) Dosing Weight: 81 kg (178 lb 9.2 oz) Usual Weight: 102.1 kg (225 lb) past year Usual Weight Obtained From: Patient Body mass index is 30.83 kg/m?. Obese Weight change percentage over time: stable Last Wt 10/16/22 : 103.1 kg (227 lb 4.7 oz) 10/02/22 : 103.1 kg (227 lb 3.2 oz) 09/09/22 : 104.3 kg (230 lb) 08/18/22 : 104 kg (229 lb 3.2 oz) 08/05/22 : 102.5 kg (226 lb) 07/14/22 : 102.5 kg (226 lb) - 3 months 07/14/22 : 103 kg (227 lb) 07/13/22 : 103.1 kg (227 lb 6.4 oz) 06/29/22 : 104 kg (229 lb 3.2 oz) 06/17/22 : 105 kg (231 lb 6.4 oz) 06/10/22 : 105.5 kg (232 lb 9.6 oz) 03/19/22 : 104.2 kg (229 lb 11.2 oz) 03/17/22 : 104.3 kg (230 lb) 02/26/22 : 103 kg (227 lb) 02/09/22 : 104.3 kg (230 lb) 01/06/22 : 105.3 kg (232 lb 3.2 oz) 08/07/21 : 104.8 kg (231 lb) > 1 year 06/24/21 : 103.9 kg (229 lb) 06/23/21 : 99.8 kg (220 lb) 04/29/21 : 99.8 kg (220 lb) Physical Exam: Subcutaneous fat loss: No fat loss Muscle loss: No muscle loss Potential micronutrient deficiency: No deficiency identified Edema/Ascites: Generalized GI Symptoms: None Functional Status: Not related to malnutrition status Potential Signs of Inflammation: Acute post-operative;Chronic condition;Critically ill;Hyperglycemia;Leukocyt osis;Imaging studies DM, CAD, Asthma, HTN MNT Billing: $ Initial Assessment: 1-15 minutes SIGNATURE: Violette Montoya RD PATIENT NAME: Denton Wesley DATE: October 17, 2022 TIME: 11:04 AM Normal [facility] XR CHEST 1V FRONTALon 2022 XR CHEST 1V FRONTAL * * *Final Report* * * DATE OF EXAM: Oct 17 2022 5:03AM AKX [id number] - XR CHEST 1V FRONTAL / PROCEDURE REASON: Post-operative / post-procedure assessment, asymptomatic * * * * Physician Interpretation * * * * EXAMINATION: CHEST RADIOGRAPH (SINGLE VIEW AP OR PA) CLINICAL HISTORY: Post-operative / post-procedure assessment, asymptomatic MQ: XC1_5 Comparison: Chest x-ray October 16, 2022 RESULT: Lines, tubes, and devices: Right IJ catheter with tip profiling proximal superior vena cava. Left chest tube and mediastinal drain in stable position. Interval removal of endotracheal tube and NG tube. Lungs and pleura: No pneumothorax. No pleural effusion. Diminished aeration of both lung bases.. Cardiomediastinal silhouette: Normal cardiomediastinal silhouette. Other: . IMPRESSION: Interval removal of endotracheal tube and NG tube. Diminished aeration at both lung bases. 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 Transcribe Date/Time: Oct 17 2022 8:13A Dictated by : CALI PERDUE MD This examination was interpreted and the report reviewed and electronically signed by: CALI PERDUE MD on Oct 17 2022 8:14AM EST [id number] Normal [facility] ALLIED HEALTHon 10-16-2022 ALLIED HEALTH HNO ID: [id number] Author: RT Faiza(R) Service: Radiology Author Type: Technologist Type: Allied Health Filed: 10/16/2022 3:11 PM Note Text: Radiology Service Progress Note PATIENT NAME: Denton Wesley DATE OF SERVICE: October 16, 2022 TIME: 3:11 PM PATIENT IDENTITY VERIFICATION COMPLETED USING TWO (2) IDENTIFIERS: Name and Date of confirmed by identification band. FALL SCREENING: Has the patient had 2 falls in the last year or 1 fall with injury or currently using an Ambulatory Assistive Device (Walker, Cane, Wheelchair, Crutches, etc.)? Inpatient: Screened on floor PATIENT GENDER DATA: Male PATIENT RELEVANT IMPLANT DATA REVIEWED: Not Applicable RADIOLOGY DEPARTMENT: General X-ray: Exam(s) Completed: Chest X-Ray PERIPHERAL IV DATA: Not applicable SIGNED BY: RT Faiza(R) October 16, 2022 3:11 PM Normal [facility] ANES PRE-OPon 10-16-2022 ANES PRE-OP HNO ID: [id number] Author: Sharon Ernst MD Service: Anesthesiology Author Type: Physician Type: Anesthesia Preprocedure Evaluation Filed: 10/16/2022 8:25 AM Note Text: ANESTHESIOLOGY DAY OF SURGERY NOTE : 1950 Procedure Information Anesthesia Start Date/Time: 10/16/22 0735 Procedure: BYPASS GRAFT ARTERY CORONARY ON-PUMP THREE CORONARY ARTERIAL GRAFTS (Chest) Location: [place] [facility] Surgeons: Brian Colmenares MD Estimated body mass index is 30.81 kg/m? as calculated from the following: Height as of 10/02/22: 182.9 cm (6'). Weight as of 10/02/22: 103.1 kg (227 lb 3.2 oz). 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 Tracheostomy tube not present Mallampati: III. TM distance: >3 FB. Neck ROM: full ROM without neurological symptoms. Mouth opening: adequate. Short neck: no. Thick neck: no Bradshaw present: no DENTAL Dental findings: missing tooth/teeth, poor dentition and chipped. II - ANESTHESIA PLAN ASA Score: 4 Anesthetic Plan: general Airway type: ETT The patient is not a current smoker. NPO Status: adequate Beta Ari Administration of chronic beta ari medication planned. Monitoring Plan Monitoring plan: standard ASA and invasive hemodynamic monitoring. Monitoring method: arterial Line, CVL and SHILO Post Procedure Analgesic Plan Informed Consent Anesthetic risks, benefits, alternatives, personnel and consent discussed: yes. Patient / Responsible Republican agrees to proceed: yes Patient / Surrogate agrees to blood products: Yes Significant changes in the patient condition since the History and Physical, not otherwise documented in primary service progress note: no. Potential Anesthesia issues that may suggest increased risk of complications or contraindication to planned procedure: none. Vitals Value Taken Time BP 165/85 10/16/22 0640 Pulse 54 10/16/22 0640 Resp 18 10/16/22 0640 Temp 36.5 ?C (97.7 ?F) 10/16/22 0640 SpO2 96 % 10/16/22 0640 Facility-Administered Medications as of 10/16/2022 Medication Dose Route Frequency - vancomycin 1.5 g in D5W 250 mL (VANCOCIN) 0.015 g/kg/dose (Order-Specific) INTRAVENOUS ONCE - aztreonam 2 g in D5W 100 mL Vial-Bag (AZACTAM) 2 g INTRAVENOUS q 4 H - NaCl 0.9% iv flush bag 20 mL INTRAVENOUS PRN - papaverine injection X (OR/PROCEDURE) PRN - heparin 3,000 Units in sodium chloride 0.9 % 500 mL for irrigation X (OR/PROCEDURE) PRN - NaCl 0.9% irrigation solution X (OR/PROCEDURE) PRN - bupivacaine (PF) 30 mL, bupivacaine liposome (PF) 20 mL X (OR/PROCEDURE) PRN Outpatient Medications as of 10/16/2022 Medication Sig - acetaminophen (TYLENOL) 325 mg tablet 325 mg. - albuterol (PROVENTIL) 2.5 mg /3 mL (0.083 %) nebulizer solution INHALE 1 AMPULE BY MOUTH Q6H PRN - guaiFENesin (MUCINEX) 600 mg 12 hr tablet Take 1 tablet by mouth twice daily. - loratadine (CLARITIN) 10 mg tablet Take 1 tablet by mouth once daily. - nitroglycerin sublingual (NITROQUICK) 0.4 mg SL tablet - ondansetron orally disintegrating (ZOFRAN ODT) 4 mg disintegrating tablet Take by mouth. - tamsulosin (FLOMAX) 0.4 mg Take 1 capsule by mouth daily at bedtime. - ADVAIR DISKUS 500-50 mcg/dose dsdv INHALE 1 (ONE) puff EVERY 12 HOURS - aspirin, enteric coated (ASPIRIN, ENTERIC COATED) 81 mg EC tablet aspirin ASPIRIN 81 MG TABS One tablet by mouth daily ASPIRIN [id number] Daya Deal RN 02-20-2016 [facility] ([id number]) - FARXIGA 10 mg tablet Take 10 mg by mouth once daily. - alirocumab (PRALUENT PEN) 75 mg/mL pen Inject 1 mL subcutaneously every other week. - clopidogrel (PLAVIX) 75 mg tablet Take 1 tablet by mouth once daily. I have interviewed and examined the patient. I have reviewed the medical record and/or the pre-anesthesia evaluation, pertinent labs, and test results. This contains updated information obtained within 48 hours of Surgery/Procedure. SIGNATURE: Sharon Ernst MD PATIENT NAME: Denton Wesley DATE: October 16, 2022 TIME: 8:25 AM CSN: [id number] Normal [facility] ARTERIAL BLOOD GASESon 10-16 Base deficit (BldA) [Moles/Vol] -5 mmol/L Low -2-0 [facility] Comment on above: Order Comment: Speci men Type: URINE SPECIMEN Ordering Facility: [facility] Address: [address] [place] [address] Performed By: #### 2 4356-8 #### [facility] CLIA [id number] [address] Body temperature 96.26 [degF] Normal [facility] Comment on above: Order Comment: Speci men Type: URINE SPECIMEN Ordering Facility: [facility] Address: [address] [place] [address] Performed By: #### 2 4356-8 #### [facility] CLIA [id number] [address] Calcium.ionized (BldV) [Mass/Vol] 1.30 mmol/L Normal 1.08-1.30 [facility] Comment on above: Order Comment: Speci men Type: URINE SPECIMEN Ordering Facility: [facility] Address: [address] [place] [address] Performed By: #### 2 4356-8 #### [facility] CLIA [id number] [address] Calcium.ionized adjusted to pH 7.4 (BldA) [Moles/Vol] 1.22 mmol/L Normal 1.08-1.30 [facility] Comment on above: Order Comment: Speci men Type: URINE SPECIMEN Ordering Facility: [facility] Address: [address] [place] [address] Performed By: #### 2 4356-8 #### [facility] CLIA [id number] [address] Carboxyhemoglobin (BldA) [Mass fraction] <1.0 Normal 0.0-2.0 [facility] Comment on above: Order Comment: Speci men Type: URINE SPECIMEN Ordering Facility: [facility] Address: [address] [place] [address] Result Comment: Carb oxyhemoglobin Reference Range for Smokers: 2.0-8.0% Performed By: #### 2 4356-8 #### [facility] CLIA [id number] [address] [place] Chloride [Moles/Vol] 112 mmol/L High 102-109 [facility] Comment on above: Order Comment: Speci men Type: URINE SPECIMEN Ordering Facility: [facility] Address: [address] [place] [address] Performed By: #### 2 4356-8 #### [facility] CLIA [id number] [address] [place] CO2 (Bld) [Partial pressure] 49 mm Hg High 36-46 [facility] Comment on above: Order Comment: Speci men Type: URINE SPECIMEN Ordering Facility: [facility] Address: [address] [place] [address] Performed By: #### 2 4356-8 #### [facility] CLIA [id number] [address] [place] CO2 [Moles/Vol] 20 mmol/L Low 22-28 [facility] Comment on above: Order Comment: Speci men Type: URINE SPECIMEN Ordering Facility: [facility] Address: [address] [place] [address] Performed By: #### 2 4356-8 #### [facility] CLIA [id number] [address] [place] CO2 adjusted to patient's actual temperature (Bld) [Partial pressure] 46 mmHg Normal 36-46 [facility] Comment on above: Order Comment: Speci men Type: URINE SPECIMEN Ordering Facility: [facility] Address: [address] [place] [address] Performed By: #### 2 4356-8 #### [facility] CLIA [id number] [address] [place] FIO2 50 % Normal [facility] Comment on above: Order Comment: Speci men Type: URINE SPECIMEN Ordering Facility: [facility] Address: [address] [address] Performed By: #### 2 4356-8 #### [facility] CLIA [id number] [address] [place] Glucose [Mass/Vol] 125 mg/dL High 60-105 [facility] Comment on above: Order Comment: Speci men Type: URINE SPECIMEN Ordering Facility: [facility] Address: [address] [address] Performed By: #### 2 4356-8 #### [facility] CLIA [id number] [address] [place] HCO3 (Bld) [Moles/Vol] 22 mmol/L Normal 22-26 [facility] Comment on above: Order Comment: Speci men Type: URINE SPECIMEN Ordering Facility: [facility] Address: [address] [place] [address] Performed By: #### 2 4356-8 #### [facility] CLIA [id number] [address] [place] Hematocrit (Bld) [Volume fraction] 39.7 % Normal 39.0-51.0 [facility] Comment on above: Order Comment: Speci men Type: URINE SPECIMEN Ordering Facility: [facility] Address: [address] [place] [address] Performed By: #### 2 4356-8 #### [facility] CLIA [id number] [address] [place] Hemoglobin (Bld) [Mass/Vol] 12.9 g/dL Low 13.0-17.0 [facility] Comment on above: Order Comment: Speci men Type: URINE SPECIMEN Ordering Facility: [facility] Address: [address] [place] [address] Performed By: #### 2 4356-8 #### [facility] CLIA [id number] [address] [place] Lactate [Moles/Vol] 2.0 mmol/L Normal 0.5-2.2 [facility] Comment on above: Order Comment: Speci men Type: URINE SPECIMEN Ordering Facility: [facility] Address: [address] [address] Performed By: #### 2 4356-8 #### [facility] CLIA [id number] [address] Methemoglobin (Bld) [Mass fraction] 1.2 % Normal 0.0-1.5 [facility] Comment on above: Order Comment: Speci men Type: URINE SPECIMEN Ordering Facility: [facility] Address: [address] [address] Performed By: #### 2 4356-8 #### [facility] CLIA [id number] [address] O2 THERAPY Ventilator Normal [facility] Comment on above: Order Comment: Speci men Type: URINE SPECIMEN Ordering Facility: [facility] Address: [address] [place] [address] Performed By: #### 2 4356-8 #### [facility] CLIA [id number] [address] [place] Oxygen (Bld) [Partial pressure] 100 mm Hg High 85-95 [facility] Comment on above: Order Comment: Speci men Type: URINE SPECIMEN Ordering Facility: [facility] Address: [address] [place] [address] Performed By: #### 2 4356-8 #### [facility] CLIA [id number] [address] Oxygen adjusted to patient's actual temperature (Bld) [Partial pressure] 92 mmHg Normal 85-95 [facility] Comment on above: Order Comment: Speci men Type: URINE SPECIMEN Ordering Facility: [facility] Address: [address] [place] [address] Performed By: #### 2 4356-8 #### [facility] CLIA [id number] [address] [place] Oxyhemoglobin (BldA) [Mass fraction] 95 % Normal 95-98 [facility] Comment on above: Order Comment: Speci men Type: URINE SPECIMEN Ordering Facility: [facility] Address: [address] [place] [address] Performed By: #### 2 4356-8 #### [facility] CLIA [id number] [address] pH (Bld) 7.27 [pH] Low 7.35-7.45 [facility] Comment on above: Order Comment: Speci men Type: URINE SPECIMEN Ordering Facility: [facility] Address: [address] [place] [address] Performed By: #### 2 4356-8 #### [facility] CLIA [id number] [address] pH adjusted to patient's actual temperature (Bld) 7.29 Low 7.35-7.45 [facility] Comment on above: Order Comment: Speci men Type: URINE SPECIMEN Ordering Facility: [facility] Address: [address] [place] [address] Performed By: #### 2 4356-8 #### [facility] CLIA [id number] [address] Potassium [Moles/Vol] 3.7 mmol/L Normal 3.5-5.0 [facility] Comment on above: Order Comment: Speci men Type: URINE SPECIMEN Ordering Facility: [facility] Address: [address] [place] [address] Performed By: #### 2 4356-8 #### [facility] CLIA [id number] [address] [place] Sodium [Moles/Vol] 139 mmol/L Normal 136-144 [facility] Comment on above: Order Comment: Speci men Type: URINE SPECIMEN Ordering Facility: [facility] Address: [address] [place] [address] Performed By: #### 2 4356-8 #### [facility] CLIA [id number] [address] OF [facility] Basic metabolic 2000 panelon 10-16-2022 Anion gap [Moles/Vol] 7 mmol/L Low 9-18 [facility] Comment on above: Order Comment: Speci men Type: BLOOD SPECIMENOrdering Facility: [facility] Address: [address] [place] [address] Performed By: #### 1 9123-9, 65826-1 ####[facility] [id number] [place] [address] [place] Calcium [Mass/Vol] 8.7 mg/dL Normal 8.5-10.2 [facility] Comment on above: Order Comment: Speci men Type: BLOOD SPECIMENOrdering Facility: [facility] Address: [address] [place] [address] Performed By: #### 1 9123-9, 51137-1 ####[facility] [id number] [address] [place] Chloride [Moles/Vol] 110 mmol/L High 97-105 [facility] Comment on above: Order Comment: Speci men Type: BLOOD SPECIMENOrdering Facility: [facility] Address: [address] [place] [address] Performed By: #### 1 23-9, 29789-4 ####[facility] [id number] [address] [place] CO2 [Moles/Vol] 23 mmol/L Normal 22-30 [facility] Comment on above: Order Comment: Speci men Type: BLOOD SPECIMENOrdering Facility: [facility] Address: [address] [place] [address] Performed By: #### 1 9123-9, 35915-6 ####[facility] [id number] [address] [place] Creatinine [Mass/Vol] 0.81 mg/dL Normal 0.73-1.22 [facility] Comment on above: Order Comment: Speci men Type: BLOOD SPECIMENOrdering Facility: [facility] Address: [address] [address] Performed By: #### 1 9123-9, 37003-1 ####[facility] [id number] [place] [id number] [facility] [place] ESTIMATED GLOMERULAR FILTRATION RATE 94 mL/min/1.73m??? Normal >=60 [facility] Comment on above: Order Comment: Rashaun aranda Type: BLOOD SPECIMENOrdering Facility: [facility] Address: [address] [address] Result Comment: Pat mated Glomerular Filtration Rate (eGFR) is calculated using the 2020 CKD-EPI creatinine equation. This equation utilizes serum creatinine, sex, and age as parameters. The creatinine assay has traceable calibration to isotope dilution-mass spectrometry. Refer to KDIGO guidelines for clinical interpretation. In patients with unstable renal function, e.g. those with acute kidney injury, the eGFR may not accurately reflect actual GFR. Performed By: #### 1 9123-9, 80804-7 ####[facility] [id number] [place] [address] [place] Glucose [Mass/Vol] 114 mg/dL High 74-99 [facility] Comment on above: Order Comment: Rashaun aranda Type: BLOOD SPECIMENOrdering Facility: [facility] Address: [address] [place] [address] Result Comment: The [place] Diabetes Association (ADA) provides guidance for cutoff values for fasting glucose and random glucose. The ADA defines fasting as no caloric intake for at least 8 hours. Fasting plasma glucose results between 100 to 125 mg/dL indicate increased risk for diabetes (prediabetes). Fasting plasma glucose results greater than or equal to 126 mg/dL meet the criteria for diagnosis of diabetes. In the absence of unequivocal hyperglycemia, results should be confirmed by repeat testing. In a patient with classic symptoms of hyperglycemia or hyperglycemic crisis, random plasma glucose results greater than or equal to 200 mg/dL meet the criteria for diagnosis of diabetes. Reference: Standards of Medical Care in Diabetes 2016, [place] Diabetes Association. Diabetes Care. 2016.39(Suppl 1). Performed By: #### 1 9123-9, 00823-7 ####[facility]IA [id number] [address] [place] Potassium [Moles/Vol] 3.8 mmol/L Normal 3.7-5.1 [facility] Comment on above: Order Comment: Speci men Type: BLOOD SPECIMENOrdering Facility: [facility] Address: [address] [place] [address] Performed By: #### 1 9123-9, 25360-6 ####[facility]CLIA [id number] [address] STATES OF [facility] Sodium [Moles/Vol] 140 mmol/L Normal 136-144 [facility] Comment on above: Order Comment: Speci men Type: BLOOD SPECIMENOrdering Facility: [facility] Address: [address] [place] [address] Performed By: #### 1 9123-9, 76348-6 ####[facility]ORYCLIA [id number] [address] STATES [place] [facility] Urea nitrogen [Mass/Vol] 18 mg/dL Normal 9-24 [facility] Comment on above: Order Comment: Speci men Type: BLOOD SPECIMENOrdering Facility: [facility] Address: [address] [place] [address] Performed By: #### 1 9123-9, 38328-4 ####[facility]ORYCLIA [id number] [address] [place] CBC panel Auto (Bld)on 10-16 Erythrocyte distribution width (RBC) [Ratio] 13.3 % Normal 11.5-15.0 [facility] Comment on above: Order Comment: Speci men Type: URINE SPECIMEN Ordering Facility: [facility] Address: [address] [place] [address] Performed By: #### 2 4356-8 #### [facility] CLIA [id number] [address] OF [facility] Hematocrit (Bld) [Volume fraction] 38.0 % Low 39.0-51.0 [facility] Comment on above: Order Comment: Speci men Type: URINE SPECIMEN Ordering Facility: [facility] Address: [address] [address] Performed By: #### 2 4356-8 #### [facility] CLIA [id number] [address] Hemoglobin (Bld) [Mass/Vol] 12.4 g/dL Low 13.0-17.0 [facility] Comment on above: Order Comment: Speci men Type: URINE SPECIMEN Ordering Facility: [facility] Address: [address] [address] Performed By: #### 2 4356-8 #### [facility] CLIA [id number] [address] MCH (RBC) [Entitic mass] 29.9 pg Normal 26.0-34.0 [facility] Comment on above: Order Comment: Speci men Type: URINE SPECIMEN Ordering Facility: [facility] Address: [address] [address] Performed By: #### 2 4356-8 #### [facility] CLIA [id number] [address] MCHC (RBC) [Mass/Vol] 32.6 g/dL Normal 30.5-36.0 [facility] Comment on above: Order Comment: Speci men Type: URINE SPECIMEN Ordering Facility: [facility] Address: [address] [address] Performed By: #### 2 4356-8 #### [facility] CLIA [id number] [address] [place] [facility] MCV (RBC) [Entitic vol] 91.6 fL Normal 80.0-100.0 [facility] Comment on above: Order Comment: Speci men Type: URINE SPECIMEN Ordering Facility: [facility] Address: [address] [place] [address] Performed By: #### 2 4356-8 #### [facility] CLIA [id number] [address] Nucleated RBC (Bld) [#/Vol] 10*3/uL Normal <0.01 [facility] Comment on above: Order Comment: Speci men Type: URINE SPECIMEN Ordering Facility: [facility] Address: [address] [address] Performed By: #### 2 4356-8 #### [facility] CLIA [id number] 1 [place] [address] [place] Platelet mean volume (Bld) [Entitic vol] 8.9 fL Low 9.0-12.7 [facility] Comment on above: Order Comment: Speci men Type: URINE SPECIMEN Ordering Facility: [facility] Address: [address] [address] Performed By: #### 2 4356-8 #### [facility] CLIA [id number] [address] [place] Platelets (Bld) [#/Vol] 162 10*3/uL Normal 150-400 [facility] Comment on above: Order Comment: Speci men Type: URINE SPECIMEN Ordering Facility: [facility] Address: [address] [address] Performed By: #### 2 4356-8 #### [facility] CLIA [id number] 1 [place] [address] [place] RBC (Bld) [#/Vol] 4.15 10*6/uL Low 4.20-6.00 [facility] Comment on above: Order Comment: Speci men Type: URINE SPECIMEN Ordering Facility: [facility] Address: [address] [address] Performed By: #### 2 4356-8 #### [facility] CLIA [id number] 1 [place] [address] [place] WBC (Bld) [#/Vol] 10.99 10*3/uL Normal 3.70-11.00 [facility] Comment on above: Order Comment: Speci men Type: URINE SPECIMEN Ordering Facility: [facility] Address: [address] [address] Performed By: #### 2 4356-8 #### [facility] CLIA [id number] [address] CONFIRM BLOOD TYPEon 023 ABO O Normal [facility] Comment on above: Order Comment: Speci men Type: BLOOD SPECIMENOrdering Facility: [facility] Address: [address] [place] [address] Performed By: #### C ONABO ####[facility] [id number] [address] Rh Nom (Bld) Negative Normal [facility] [facility] Comment on above: Order Comment: Speci men Type: BLOOD SPECIMENOrdering Facility: [facility] Address: [address] [place] [address] Performed By: #### C ONABO ####[facility] BLOOD BANKCLIA [id number] [address] CONSULTon 10-16-2022 CONSULT HNO ID: [id number] Author: Zaid Mar MD Service: Critical Care Author Type: Physician Type: Consults Filed: 10/16/2022 6:21 PM Note Text: ICU Consult PROGRESS NOTE SERVICE DATE: 10/16/2022 SERVICE TIME: 6:05 PM Admission Date: 10/16/2022 Physician requesting consult: Dr. Brian Colmenares Reason for consult: Post CABG AGE: [age] year old LOS: 0 days INTERVAL EVENTS: Patient seen postop Admitted for CABG for history of multivessel coronary artery disease Postop , he was transferred to the ICU Off pressors Sedated and intubated on mechanical ventilation Chest tubes in place PHYSICAL EXAM: VITAL SIGNS: 10/16/22 1600 10/16/22 1630 10/16/22 1700 10/16/22 1800 BP: Pulse: 61 60 73 63 Resp: 15 16 19 Temp: (!) 35.4 ?C (95.7 ?F) (!) 35.6 ?C (96.1 ?F) (!) 35.9 ?C (96.6 ?F) 36.7 ?C (98.1 ?F) TempSrc: SpO2: 98% 97% 98% 95% Weight: Height: 24 hour Intake AND Output: Intake/Output Summary (Last 24 hours) at 10/16/2022 1805 Last data filed at 10/16/2022 1800 Gross per 24 hour Intake 4515 ml Output 2170 ml Net 2345 ml GEN: Sedated and intubated on mechanical ventilation HEAD: Normocephalic, atraumatic. EYES: Anicteric sclera. EOMI. NECK: Supple CV: RRR, no murmur, gallop, or rubs. BP as documented RESP: No vent dyssynchrony, currently on PRVC, no wheezing. No Crackles No chest wall tenderness. ABD: Soft, non-tender, non-distended. Bowel sounds normal. EXTR: No clubbing, cyanosis. NEURO: No focal deficit present. VENTILATOR INFORMATION: WEANING DATA: Settings: Invasive Ventilator Mode (Select One): SIMV PRVC or VC+ or APVimv (PC-IMV(1)a,s) (10/16/22 1456) %FIO2: 35 Set Ventilator Respiratory Rate (BPM): 12 Invasive Ventilator Tidal Volume Set (mL): 500 PEEP/CPAP (cm H2O): 5 Patient Data: Peak Inspiratory Pressure (cm H2O): 15 Plateau Pressure (cm H2O): 14 Weaning Data: LABs: BLOOD GAS: Recent Labs 10/16/22 1501 10/16/22 1323 10/16/22 1250 10/16/22 1201 10/16/22 1131 10/16/22 1104 10/16/22 1100 10/16/22 1042 10/16/22 0821 VPH -- -- -- -- -- 7.321 -- -- -- VPC2 -- -- -- -- -- 41.5 -- -- -- VPO2C -- -- -- -- -- 55* -- -- -- PH 7.27* -- -- -- -- -- -- -- -- PCO2 49* 38.5 45.0 41.2 41.3 -- 42.6 43.1 47.7* CBC: Recent Labs 10/16/22 1501 WBC 10.99 HB 12.4* HCT 38.0* PLT 162 MCV 91.6 RDWCV 13.3 COAG: Recent Labs 10/16/22 1501 APTT 30.2 INR 1.0 BMP: Recent Labs 10/16/22 1501 GLUC 114* NA 140 K 3.8 CHLOR 110* CO2 23 ANION 7* BUN 18 CREAT 0.81 CHEM: Recent Labs 10/16/22 1501 CA 8.7 MG 2.0 ICAL 1.30 HEPATIC: No results for input(s): ALKPHOS, ALT, AST, TBILI, LIPASE in the last 168 hours. URINALYSIS: Recent Labs 10/16/22 1501 PH 7.27* CARDIAC: No results for input(s): CKTEST, CKMB, CKMBP, TROPT, PBNP in the last 168 hours. IMAGING: CXR XR CHEST 1V FRONTAL Result Date: 10/16/2022 IMPRESSION: Lines and tubes appear in appropriate position. Atelectasis at the lung bases. 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 Transcribe Date/Time: Oct 16 2022 3:34P Dictated by : CALI PERDUE MD This examination was interpreted and the report reviewed and electronically signed by: CALI PERDUE MD on Oct 16 2022 3:35PM EST XR CHEST 2V FRONTAL/LAT Result Date: 10/12/2022 IMPRESSION: No acute radiographic abnormality. 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: [facility] Transcribe Date/Time: Oct 12 2022 4:25P Dictated by : TODD REYES MD This examination was interpreted and the report reviewed and electronically signed by: TODD REYES MD on Oct 12 2022 4:27PM EST CT Scans Last CT/CTA Chest/Lungs CT CHEST WO IVCON Exam End: 06/29/2022 3:27 PM (Final result) Narrative: * * *Final Report* * * DATE OF EXAM: Jun 29 2022 3:27PM [facility] [id number] - CT CHEST WO IVCON / PROCEDURE REASON: Chest pain due to myocardial ischemia, unspecified ischemic chest pain type * * * * Physician Interpretation * * * * EXAMINATION: CHEST CT WITHOUT CONTRAST CLINICAL HISTORY: Chest pain due to myocardial ischemia, unspecified ischemic chest pain type Technique: Spiral CT acquisition of the chest from the thoracic inlet to the upper abdomen without contrast. MQ: CTCWO_6 CT Radiation dose: Integrated Dose-length product (DLP) for this visit = 403 mGy*cm CT Dose Reduction Employed: Automated exposure control(AEC) and iterative recon Comparison: None. RESULT: Limitations: None. Lines, tubes, and devices: None. Lung parenchyma and airways: Retained secretion noted in the trachea; otherwise the central airways are patent. A few pulmonary nodules identified. For example, a 6 mm solid nodule adjacent to the minor fissure, series 6 image 117. A 5 mm solid nodule seen along the left major fusion, series 6 image 131. No mass lesion identified. The lungs are clear of consolidations. Pleural space: No pleural effusion. No pleural thickening. Lower neck, lymph nodes, and mediastinum: (more content not included)... Normal [facility] ECG COMPLETEon 10-16-2022 ECG COMPLETE Ventricular Rate : 6 5 BPM Atrial Rate : 65 BPM P-R Interval : 214 ms QRS Duration : 100 ms Q-T Interval : 452 ms QTC Calculation(Bazett) : 470 ms Calculated P Johnson : 54 degrees Calculated R Johnson : 36 degrees Calculated T Johnson : 22 degrees SINUS RHYTHM WITH 1ST DEGREE A-V BLOCK possible IMI WHEN COMPARED WITH ECG OF 20-MAR-2016 04:28, [place] INTERVAL HAS INCREASED Confirmed by MD LANDA DAVID ([id number]) on 10/18/2022 11:40:38 AM NAME : DENTON WESLEY PID : [id number] : 1950 Gender : Male Race : ORD : [id number] Procedure Date : Oct 16 2022 15:48:07 Edit Date : Oct 18 2022 11:40:39 Diagnosis: SINUS RHYTHM WITH 1ST DEGREE A-V BLOCK possible IMI WHEN COMPARED WITH ECG OF 20-MAR-2016 04:28, [place] INTERVAL HAS INCREASED Confirmed by MD LANDA DAVID ([id number]) on 10/18/2022 11:40:38 AM Test Reason : Post-OP Location : 6 : [place] [address] Overread By : MD LANDA DAVID Edited By : MD LANDA DAVID Referred By : BRIAN COLMENARES Acquired by : DASHAWN SWAN [facility] INTRAOPERATIVE ECHO PREon INTRAOPERATIVE ECHO PRE Echocardiography Report: Intraoperative Echo Pre (SHILO) [facility] Date of service: 10/16/2022 7:42:43 AM [facility] Ordering physician: SHARON ERNST Indication: intraop Technologist: staff Interpreting physician: Sharon Ernst MD PATIENT: Name: MR. DENTON WESLEY : 1950 Age: 72 years Gender: M Height: 182.90 cm BSA: 2.29 m Weight: 103.06 kg BMI: 30.8 kg/m (PRE PROCEDURE) MEASUREMENTS: (PRE PROCEDURE) FINDINGS: (PRE PROCEDURE) CONCLUSIONS: (PRE PROCEDURE) - Exam indication: intraop not compared Final CC [employer] Medical Image : [id number] See Link below for Image Normal [facility] Magnesium SerPl-mCncon 10-16 Magnesium [Mass/Vol] 2.0 mg/dL Normal 1.7-2.3 [facility] Comment on above: Order Comment: Speci men Type: BLOOD SPECIMENOrdering Facility: [facility] Address: [address] [place] [address] Performed By: #### 1 9123-9, 37387-8 ####[facility] LABORATORYCLIA [id number] [address] STATES OF [facility] OPERATIVE NOon 10-16-2022 OPERATIVE NO HNO ID: [id number] Author: Brian Colmenares MD Service: Cardiac Surgery Author Type: Physician Type: Operative Report Filed: 10/16/2022 2:38 PM Note Text: [facility] CARDIO-THORACICSURGERY OPERATIVE/PROCEDURE REPORT LOG ID: [id number] SURGERY/PROCEDURE DATE: 10/16/2022 INCISION/PROCEDURE START TIME: 8:58 AM INCISION CLOSE/PROCEDURE END TIME: 2:23 PM SURGEON(S)/PROCEDURALIST(S ) AND [employer] GLAZER(S): Surgeon(s) and Role: * Brian Colmenares MD - Primary Physician Business Banking Sales Assistant: Silke Hunt PA-C Furnace Puncher: Kalli Bazan SA ANESTHESIA: General CTS OP REPORTS PROCEDURE(S): Coronary Artery Bypass Graft PREOPERATIVE DIAGNOSIS: Complex Vessel Coronary Artery Disease FINDINGS: Excellent flows all grafts via flow probe. Normal function pre and post. DESCRIPTION OF PROCEDURE: Operative Approach: Full Conventional Sternotomy Reoperation: No previous surgeries PUMP: ON PUMP Arterial Cannulation: Aortic Venous Cannulation: Right Atrial Epiaortic Ultrasound Used: Yes CARDIOPLEGIA: Buckberg Cardioplegia Delivery: Retrograde and Antegrade CABG (Coronary Artery Bypass Graft) PROCEDURE: CONDUIT QUALITY: Normal caliber with excellent flow AORTA QUALITY: Normal CORONARY ARTERY QUALITY: Normal Proximal Technique: Single cross clamp GRAFTS: ACEVEDO in situ mammary end to side mid LAD Vein graft ascending aorta end to side circumflex Left HILLARY: Skeletonized Lawrence Technique: Direct vision (open) Vein(s) Harvested: Left leg greater saphenous Lawrence Technique: Endoscopic POST-BYPASS: PACING WIRES: Right ventricle which can be cut or pulled CHEST TUBES/DRAINS: Left chest tube and Mediastinal chest tube CLOSURE: Routine with sternal wires POST-PROCEDURE DETAILS: Patient Tolerance of Procedure: tolerated well, no immediate complications Sponge/Instrument/Needle Counts: Final Counts Correct Estimated Blood Loss: 250 mL of shed blood was preserved by cardiopulmonary bypass pump and the cell saver. Specimens: None SURGEON/CLAY PRODUCTS GLAZER PARTICIPATION: The primary Surgeon/Proceduralist performed the procedure with assistance. No qualified Resident/Fellow was available. OTHER FINDINGS/DETAILS: recreational assistant--Kalli Bazan SA--EVH, dissect tissue, close Second assist--LORRAINE Briggs--open, dissect tissue, close SPECIMENS: COMPLETED BY: Brian Colmenares MD PATIENT NAME: Denton Wesley DATE: October 16, 2022 TIME: 2:35 PM AGE: [age] year old Normal [facility] PT panel Coag (PPP)on 2022 INR Coag (PPP) [Relative time] 1.0 {INR} Normal 0.9-1.3 [facility] Comment on above: Order Comment: Speci men Type: URINE SPECIMEN Ordering Facility: [facility] Address: [address] [place] [phone] Result Comment: Vivian min K Antagonist (VKA) Therapeutic Range: INR 2 to 3 (Target INR of 2.5) Note: For patients treated with VKA drugs, such as warfarin, the [place] [employer] 2012 Guideline recommends a therapeutic INR range of 2 to 3 (target INR of 2.5). This recommendation includes high-risk patients with antiphospholipid syndrome with previous arterial or venous thromboembolism, current-generation mechanical or bioprosthetic aortic heart valve replacement. Note: Patients with mechanical aortic valve replacement and additional risk factors for thromboembolic events (atrial fibrillation, previous thromboembolism, LV dysfunction, hypercoagulable conditions) or an older generation mechanical AVR (i.e., ball in-Cage) or any mechanical MVR should have a INR therapeutic range of 2.5 to 3.5 (target INR of 3). Ramirez GH, et al. Chest 2012, 141:7S-47S Shahid CORRAL et al. [facility] 2017, 70: 252-289 Performed By: #### 2 4356-8 #### [facility] LABORATORY CLIA [id number] [address] OF [facility] PT Coag (PPP) [Time] 10.6 s Normal 9.7-13.0 [facility] Comment on above: Order Comment: Speci men Type: URINE SPECIMEN Ordering Facility: [facility] Address: [address] [place] [address] Performed By: #### 2 4356-8 #### [facility] LABORATORY CLIA [id number] [address] OF [place] XR CHEST 1V FRONTALon 2022 XR CHEST 1V FRONTAL * * *Final Report* * * DATE OF EXAM: Oct 16 2022 3:12PM [id number] [id number] - XR CHEST 1V FRONTAL / PROCEDURE REASON: Evaluate tube, line or lead position * * * * Physician Interpretation * * * * EXAMINATION: CHEST RADIOGRAPH (SINGLE VIEW AP OR PA) CLINICAL HISTORY: Evaluate tube, line or lead position MQ: XC1_5 Comparison: Chest CT June 29, 2022 RESULT: Lines, tubes, and devices: Right IJ catheter with tip profiling proximal superior vena cava. Endotracheal tube terminates 3.9 cm above the ely. NG tube courses below the diaphragm. There are 2 mediastinal drain and left chest tube. Lungs and pleura: No pneumothorax or sizable pleural effusion. Probable small areas of atelectasis at both lung bases. Cardiomediastinal silhouette: Normal cardiomediastinal silhouette. Other: Sternotomy wires. IMPRESSION: Lines and tubes appear in appropriate position. Atelectasis at the lung bases. 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 Transcribe Date/Time: Oct 16 2022 3:34P Dictated by : CALI PERDUE MD This examination was interpreted and the report reviewed and electronically signed by: CALI PERDUE MD on Oct 16 2022 3:35PM EST [id number] Normal [facility] aPTT PPPon 10-16-2022 aPTT Coag (PPP) [Time] 30.2 s Normal 23.0-32.4 [facility] Comment on above: Order Comment: Speci men Type: URINE SPECIMEN Ordering Facility: [facility] Address: [address] [place], [place] [id number] Performed By: #### 2 4356-8 #### [facility]ORAT[facility] CLIA [id number] [address] OF [facility] XR Chest PA and Lateralon IMPRESSION: No acute radiographic abnormality. 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: [facility] Transcribe Date/Time: Oct 12 2022 4:25P Dictated by : TODD REYES MD This examination was interpreted and the report reviewed and electronically signed by: TODD REYES MD on Oct 12 2022 4:27PM EST DIVISION OF RADIOLOGY * * *Final Report* * * DATE OF EXAM: Oct 12 2022 2:19PM WOX [id number] - XR CHEST 2V FRONTAL/LAT / PROCEDURE REASON: multiple diagnoses * * * * Physician Interpretation * * * * EXAMINATION: CHEST RADIOGRAPH (2 VIEW FRONTAL & LATERAL) CLINICAL HISTORY: 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) Preoperative testing MQ: XC2_6 EXAM DATE/TIME: 10/12/2022 2:19 PM COMPARISON: 01/06/2022 RESULT: Lines, tubes, and devices: None. Lungs and pleura: No consolidation. No lung mass. No pleural effusion. No pneumothorax. Cardiomediastinal silhouette: Normal cardiomediastinal silhouette. Bones and soft tissues: Unremarkable. DIVISION OF RADIOLOGY Provider, [facility] - 10/12/2022 * * *Final Report* * * DATE OF EXAM: Oct 12 2022 2:19PM WOX [id number] - XR CHEST 2V FRONTAL/LAT / PROCEDURE REASON: multiple diagnoses * * * * Physician Interpretation * * * * EXAMINATION: CHEST RADIOGRAPH (2 VIEW FRONTAL & LATERAL) CLINICAL HISTORY: 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) Preoperative testing MQ: XC2_6 EXAM DATE/TIME: 10/12/2022 2:19 PM COMPARISON: 01/06/2022 RESULT: Lines, tubes, and devices: None. Lungs and pleura: No consolidation. No lung mass. No pleural effusion. No pneumothorax. Cardiomediastinal silhouette: Normal cardiomediastinal silhouette. Bones and soft tissues: Unremarkable. IMPRESSION IMPRESSION: No acute radiographic abnormality. 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 Transcribe Date/Time: Oct 12 2022 4:25P Dictated by : TODD REYES MD This examination was interpreted and the report reviewed and electronically signed by: TODD REYES MD on Oct 12 2022 4:27PM EST [facility] Radiology Study observation (narrative) [facility] XR Chest PA and LateralOrder ed By: [facility] Provider on 10-12-2022 [facility] Dev 10-08-2022 ONDINA Telephone (KRISHChangePanda) -- DENTON WESLEY ([id number]) 1950 M Date Time Provider Department 10/08/22 BRIAN COLMENARES During your visit today, we recorded the following information about you: Brenton Bagley 10/09/2022 11:32 AM Signed Phoned pt regarding new surgery date information. COVID test 10/13/22 9:45am [facility] CABG 10/16/22 arrival time 6am procedure time 7:30am Allergies As of Date: 10/08/2022 Noted Allergy Reaction GEMFIBROZIL 09/25/2019 5 - Intolerance ROSUVASTATIN 09/25/2019 5 - Intolerance SIMVASTATIN 09/25/2019 5 - Intolerance IMDUR (ISOSORBIDE) 03/05/2022 14 - Other: See Comments Comments: Headaches, upset stomach, fatigue PENICILLINS 02/10/2007 14 - Other: See Comments Comments: passed out and felt like I had the flu Pt states he's no longer allergic to this, he's taken tests w/out issues. PRAVASTATIN 08/07/2021 17 - Myalgia Date Reviewed: 10/02/2022 Reviewed by: Sofiya Slade LPN - Fully Assessed Reason for Visit: Appointment Rescheduled [1024] Cmt: New surgery date Primary Visit Diagnosis: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) [I25.119] Other Visit Diagnosis:Pre-op testing [Z01.818] Order(s):PRE-PROCEDURE AND PRE-OPERATIVE COVID [SQPOCOVD] Order #: [id number] FUTURE Prescriptions as of 10/09/2022 - metoprolol tartrate, short acting, (LOPRESSOR) 100 mg tablet Take 1 tablet by mouth one time only for 1 dose. Day of surgery - carvedilol (COREG) 25 mg tablet Take 1.5 tablets by mouth twice daily with meals. - lansoprazole (PREVACID) 30 mg capsule Take 1 capsule by mouth daily before breakfast. 1/2 hr before meal. - losartan (COZAAR) 100 mg tablet Take 1 tablet by mouth once daily. - tamsulosin (FLOMAX) 0.4 mg Take 1 capsule by mouth daily at bedtime. - FARXIGA 10 mg tablet Take 10 mg by mouth once daily. - alirocumab (PRALUENT PEN) 75 mg/mL pen Inject 1 mL subcutaneously every other week. - clopidogrel (PLAVIX) 75 mg tablet Take 1 tablet by mouth once daily. - ADVAIR DISKUS 500-50 mcg/dose dsdv INHALE 1 (ONE) puff EVERY 12 HOURS - aspirin, enteric coated (ASPIRIN, ENTERIC COATED) 81 mg EC tablet aspirin ASPIRIN 81 MG TABS One tablet by mouth daily ASPIRIN [id number] Daya Deal RN 02-20-2016 [facility] ([id number]) Facility-Administered Medications as of 10/09/2022 - perflutren lipid microspheres 1.3 mL in NaCl (PF) 0.9% 10 mL injection (DEFINITY) - sodium chloride 0.9 % (flush) 10 mL (BD POSIFLUSH) - perflutren lipid microspheres 1.3 mL in NaCl (PF) 0.9% 10 mL injection (DEFINITY) - sodium chloride 0.9 % (flush) 10 mL (BD POSIFLUSH) Problem List As Of Date 10/08/2022 Noted Resolved SUBCUTANEOUS NODULES [R22.9] 02/21/2007 Dark urine [R82.998] 10/05/2013 Abdominal pain, other specified site [R10.9] Elevated glucose [R73.09] 01/29/2020 Coronary artery disease of nome artery of kevin*01/29/2020 Mixed hyperlipidemia [E78.2] 01/29/2020 Essential hypertension [I10] 01/29/2020 S/P right coronary artery (RCA) stent placement*06/24/2021 Pure hypercholesterolemia [E78.00] 08/13/2021 Elevated PSA [R97.20] 03/11/2022 Stable angina (HCC) [I20.8] 06/10/2022 Dyspnea on exertion [R06.09] 06/10/2022 Encounter Status:Closed by [facility]AI ADAIR [facility] MANNYN Telephone (RADHA) -- DENTON WESLEY ([id number]) 1950 M Date Time Provider Department 10/06/22 SHANELLE STEVE During your visit today, we recorded the following information about you: Shanelle Steve APRN.MANNY 10/06/2022 4:19 PM Signed Pt is pre-op CABG scheduled for 10/09. Pre-op MRSA swab came back +. Discussed with Dr. Colmenares and we will reschedule pt's surgery after 7 days of MRSA decolonization. Pt and called and updated. Told to continue mupirocin BID for a total of 7 days, and daily Hibiclens baths x 7 days. He verbalized understanding and is awaiting OR reschedule. Shanelle Steve APRN.TECHNICAL SUPPORT CONSULTANT October 06, 2022 4:18 PM Allergies As of Date: 10/06/2022 Noted Allergy Reaction GEMFIBROZIL 09/25/2019 5 - Intolerance ROSUVASTATIN 09/25/2019 5 - Intolerance SIMVASTATIN 09/25/2019 5 - Intolerance IMDUR (ISOSORBIDE) 03/05/2022 14 - Other: See Comments Comments: Headaches, upset stomach, fatigue PENICILLINS 02/10/2007 14 - Other: See Comments Comments: passed out and felt like I had the flu Pt states he's no longer allergic to this, he's taken tests w/out issues. PRAVASTATIN 08/07/2021 17 - Myalgia Date Reviewed: 10/02/2022 Reviewed by: Sofiya Slade LPN - Fully Assessed Reason for Visit: Results [95] Prescriptions as of 10/06/2022 - metoprolol tartrate, short acting, (LOPRESSOR) 100 mg tablet Take 1 tablet by mouth one time only for 1 dose. Day of surgery - mupirocin (BACTROBAN) 2 % ointment Apply a small amount in each nostril using a cotton swab twice a day for five days prior to surgery - Chlorhexidine Gluconate (PERIDEX) 0.12 % solution Use 15 mL as instructed twice daily for 5 days. Rinse around mouth for 30 seconds then expectorate - carvedilol (COREG) 25 mg tablet Take 1.5 tablets by mouth twice daily with meals. - lansoprazole (PREVACID) 30 mg capsule Take 1 capsule by mouth daily before breakfast. 1/2 hr before meal. - losartan (COZAAR) 100 mg tablet Take 1 tablet by mouth once daily. - tamsulosin (FLOMAX) 0.4 mg Take 1 capsule by mouth daily at bedtime. - FARXIGA 10 mg tablet Take 10 mg by mouth once daily. - alirocumab (PRALUENT PEN) 75 mg/mL pen Inject 1 mL subcutaneously every other week. - clopidogrel (PLAVIX) 75 mg tablet Take 1 tablet by mouth once daily. - ADVAIR DISKUS 500-50 mcg/dose dsdv INHALE 1 (ONE) puff EVERY 12 HOURS - aspirin, enteric coated (ASPIRIN, ENTERIC COATED) 81 mg EC tablet aspirin ASPIRIN 81 MG TABS One tablet by mouth daily ASPIRIN [id number] Daya Deal RN 02-20-2016 [facility] ([id number]) Facility-Administered Medications as of 10/06/2022 - perflutren lipid microspheres 1.3 mL in NaCl (PF) 0.9% 10 mL injection (DEFINITY) - sodium chloride 0.9 % (flush) 10 mL (BD POSIFLUSH) - perflutren lipid microspheres 1.3 mL in NaCl (PF) 0.9% 10 mL injection (DEFINITY) - sodium chloride 0.9 % (flush) 10 mL (BD POSIFLUSH) Problem List As Of Date 10/06/2022 Noted Resolved SUBCUTANEOUS NODULES [R22.9] 02/21/2007 Dark urine [R82.998] 10/05/2013 Abdominal pain, other specified site [R10.9] Elevated glucose [R73.09] 01/29/2020 Coronary artery disease of nome artery of kevin*01/29/2020 Mixed hyperlipidemia [E78.2] 01/29/2020 Essential hypertension [I10] 01/29/2020 S/P right coronary artery (RCA) stent placement*06/24/2021 Pure hypercholesterolemia [E78.00] 08/13/2021 Elevated PSA [R97.20] 03/11/2022 Stable angina (HCC) [I20.8] 06/10/2022 Dyspnea on exertion [R06.09] 06/10/2022 Encounter Status:Closed by SHANELLE STEVE on 10/06/22 Normal [facility] CBC panel Auto (Bld)on 10-02 Erythrocyte distribution width (RBC) [Ratio] 13.4 % Normal 11.5-15.0 [facility] Comment on above: Order Comment: Speci men Type: BLOOD SPECIMENOrdering Facility: [facility] Address: [address] [place] [phone] Performed By: #### 5 8410-2 ####[facility] LABORATORYCLIA [id number] [address] STATES OF [facility] Hematocrit (Bld) [Volume fraction] 46.0 % Normal 39.0-51.0 [facility] Comment on above: Order Comment: Speci men Type: BLOOD SPECIMENOrdering Facility: [facility] Address: [address] [place] [address] Performed By: #### 5 8410-2 ####[facility] LABORATORYCLIA [id number] [address] OF [facility] Hemoglobin (Bld) [Mass/Vol] 15.1 g/dL Normal 13.0-17.0 [facility] Comment on above: Order Comment: Speci men Type: BLOOD SPECIMENOrdering Facility: [facility] Address: [address] [place] [address] Performed By: #### 5 8410-2 ####[facility] LABORATORYCLIA [id number] [address] MCH (RBC) [Entitic mass] 30.0 pg Normal 26.0-34.0 [facility] Comment on above: Order Comment: Speci men Type: BLOOD SPECIMENOrdering Facility: [facility] Address: [address] [place] [address] Performed By: #### 5 8410-2 ####[facility] LABORATORYCLIA [id number] [address] [place] MCHC (RBC) [Mass/Vol] 32.8 g/dL Normal 30.5-36.0 [facility] Comment on above: Order Comment: Speci men Type: BLOOD SPECIMENOrdering Facility: [facility] [facility] [place] Address: [address] [place] [address] Performed By: #### 5 8410-2 ####[facility]ATORYCLIA [id number] [address] MCV (RBC) [Entitic vol] 91.3 fL Normal 80.0-100.0 [facility] Comment on above: Order Comment: Speci men Type: BLOOD SPECIMENOrdering Facility: [facility] Address: [address] [address] Performed By: #### 5 8410-2 ####[facility]ORATORYCLIA [id number] [place] [address] [place] Nucleated RBC (Bld) [#/Vol] 10*3/uL Normal <0.01 [facility] Comment on above: Order Comment: Speci men Type: BLOOD SPECIMENOrdering Facility: [facility] Address: [address] [address] Performed By: #### 5 8410-2 ####[facility]ORATORYCLIA [id number] [address] [place] Platelet mean volume (Bld) [Entitic vol] 9.1 fL Normal 9.0-12.7 [facility] Comment on above: Order Comment: Speci men Type: BLOOD SPECIMENOrdering Facility: [facility] Address: [address] [address] Performed By: #### 5 8410-2 ####[facility]ORATORYCLIA [id number] [address] [place] Platelets (Bld) [#/Vol] 305 10*3/uL Normal 150-400 [facility] Comment on above: Order Comment: Speci men Type: BLOOD SPECIMENOrdering Facility: [facility] Address: [address] [address] Performed By: #### 5 8410-2 ####[facility]ATORYCLIA [id number] [address] [place] RBC (Bld) [#/Vol] 5.04 10*6/uL Normal 4.20-6.00 [facility] Comment on above: Order Comment: Speci men Type: BLOOD SPECIMENOrdering Facility: [facility] Address: [address] [place] [address] Performed By: #### 5 8410-2 ####[facility]ATORYCLIA [id number] [address] [place] WBC (Bld) [#/Vol] 7.49 10*3/uL Normal 3.70-11.00 [facility] Comment on above: Order Comment: Speci men Type: BLOOD SPECIMENOrdering Facility: [facility] Address: [place] [address] Performed By: #### 5 8410-2 ####[facility] LABORATORYCLIA [id number] [place] [address] [facility] CNOVon 10-02-2022 CNOV Office Visit ([facility]) -- DENTON WESLEY ([id number]) 1950 M Date Time Provider Department 10/02/22 3:00 PM SHANELLE STEVE During your visit today, we recorded the following information about you: Pulse Respiration Blood pressure Weight 72/minute 16/minute 140/80 103.1 kg Height 1.829 m Shanelle Steve APRN.CNP 10/02/2022 3:07 PM Signed - Please get labs drawn and a chest XR following this appointment [facility] Pre-Admission Patient Instruction You are scheduled for surgery (inpatient) located on the 2nd Floor on: 10/09/21 (your surgery date is subject to change should there be emergencies prior to your scheduled OR time). Come in the Front Doors / Main Entrance of the hospital. No need to stop at front entrance registration. Please check in to the [facility] (2nd Floor) at: 6 AM Nothing by mouth after midnight: Do not eat or drink anything, including water and coffee, after 12 AM on the morning of your surgery. This is important because if you do, your surgery may have to be cancelled. Eat a light supper the evening before surgery or follow specific doctor's instructions. Oral hygiene and a shower or bath is required the evening before or the morning of surgery. Use the prescribed mouth water and Hibiclens body wash supplied to you along with the instruction. Do not chew gum/mints, or use oral spray the morning of surgery. Notify your doctor if you develop a cold, sore throat, fever or other changes in your physical condition. No alcohol 24 hours before or after surgery and refrain from smoking the morning of surgery and immediately following surgery. Leave valuables such as rings, watches and money at home. Remove all make-up and nail stateless before admission. We need to check your circulation. Remove jewelry from all piercings, tongue included, as no metal can go into surgery. Wear loose, comfortable clothing that will accommodate bandages. You will be asked to remove glasses or contacts, and/or your denture prior to surgery. Please bring a case. Your belongings will be kept in an assigned locker until we know your new room after procedure. Please bring your CPAP or BIPAP or any necessary medical equipments, we will keep them in an assigned locker until you are assigned a post-op room. Your length of stay will be determined by your surgeon/surgery team, the anesthesiologist as well as your post of progress. On the morning of surgery, your point of contact will be instructed on communication regarding surgery updates. Please bring a list of any medication you are taking including dose and the condition for which you are being treated. Medications to stop in preparing surgery: Stop Anticoagulant: Plavix, last dose on: 10/03/22 Stop losartan 24 hours before surgery, last dose on: 10/07/22 If you are taking the following medications for Type 2 diabetes: dapagliflozin (FARXIGA) should each be discontinued at least 3 days before scheduled surgery. Infection control and prevention: For nose- Mupirocin ointment: Please get a pea sized amount on a q-tip to apply inside your nose twice daily for five days prior to surgery. 5-7 days total if you are tested positive for MRSA. For mouth- Peridex therapy should be initiated for surgery prophylaxis 3-5 days prior surgery. Recommended use is twice daily oral rinsing for 30 seconds, morning and evening after toothbrushing. Usual dosage is 15ml (marked in cap) of undiluted Peridex. Please do not rinse with water or other mouthwashes, brush teeth or eat immediately after using Peridex. Peridex is not intended for ingestion and should be expectorated after rinsing. For body- Hibiclens body wash the night before and morning of surgery. If you are positive of MRSA, you would need shower daily with the Hibiclens body solution for 5 days total (you can get additional amount from any local drug store). Pre-Op COVID TEST: it is ordered. You will be instructed to have this test completed 2-3 days prior to your surgery date. PLEASE make sure you complete this test to prevent any surgery delay or possible cancellation. If you have not receive call regarding the test, please call [phone]. Nutritional support/Ensure Drinks Instruction (Please continue eating your usual heart healthy diet): 2 protein shakes daily for 5 days before surgery 2 presurgical clear drinks the night before surgery 1 presurgical clear drink 2 hrs before surgery Medications to take with small amount of fluid in the morning of surgery: Aspirin 81 mg Beta Ari (Metoprolol) Tylenol 1000 mg If you have respiratory inhaler, please give yourself a treatment prior to come in If you are diabetic, please check you blood sugar prior to come in PLEASE COMPLETE THE SHOWER, MOUTH WASH, NASAL OINTMENT, FINISH YOUR DRINK AND PRE-OP MEDIC (more content not included)... Normal [facility] Comprehensive metabolic 2000 panelon 10-02-2022 Albumin [Mass/Vol] 4.7 g/dL Normal 3.9-4.9 [facility] Comment on above: Order Comment: Speci men Type: BLOOD SPECIMENOrdering Facility: [facility] Address: [address] [place] [address] Performed By: #### 2 4323-8 ####[facility]ORATORYCLIA [id number] [address] STATES OF [facility] ALP [Catalytic activity/Vol] 59 U/L Normal 38-113 [facility] Comment on above: Order Comment: Speci men Type: BLOOD SPECIMENOrdering Facility: [facility] Address: [address] [address] Performed By: #### 2 4323-8 ####[facility]ATORYCLIA [id number] [address] [place] ALT With P-5'-P [Catalytic activity/Vol] 28 U/L Normal 10-54 [facility] Comment on above: Order Comment: Speci men Type: BLOOD SPECIMENOrdering Facility: [facility] Address: [address] [place] [address] Performed By: #### 2 4323-8 ####[facility]ATORYCLIA [id number] [address] STATES OF [facility] Anion gap [Moles/Vol] 10 mmol/L Normal 9-18 [facility] Comment on above: Order Comment: Speci men Type: BLOOD SPECIMENOrdering Facility: [facility] Address: [address] [place] [address] Performed By: #### 2 4323-8 ####[facility]ORATORYCLIA [id number] [place] [address] [place] AST With P-5'-P [Catalytic activity/Vol] 19 U/L Normal 14-40 [facility] Comment on above: Order Comment: Speci men Type: BLOOD SPECIMENOrdering Facility: [facility] Address: [address] [place] [address] Performed By: #### 2 4323-8 ####[facility]ATORYCLIA [id number] [address] [place] Bilirubin [Mass/Vol] 0.4 mg/dL Normal 0.2-1.3 [facility] Comment on above: Order Comment: Speci men Type: BLOOD SPECIMENOrdering Facility: [facility] Address: [address] [place] [address] Performed By: #### 2 4323-8 ####[facility]ATORYCLIA [id number] [address] [place] Calcium [Mass/Vol] 9.7 mg/dL Normal 8.5-10.2 [facility] Comment on above: Order Comment: Speci men Type: BLOOD SPECIMENOrdering Facility: [facility] Address: [address] [place] [address] Performed By: #### 2 4323-8 ####[facility]ATORYCLIA [id number] [address] [place] Chloride [Moles/Vol] 104 mmol/L Normal 97-105 [facility] Comment on above: Order Comment: Speci men Type: BLOOD SPECIMENOrdering Facility: [facility] Address: [address] [place] [address] Performed By: #### 2 4323-8 ####[facility]ATORYCLIA [id number] [address] [place] CO2 [Moles/Vol] 28 mmol/L Normal 22-30 [facility] Comment on above: Order Comment: Speci men Type: BLOOD SPECIMENOrdering Facility: [facility] Address: [address] [place] [address] Performed By: #### 2 4323-8 ####[facility] [id number] [address] [place] Creatinine [Mass/Vol] 0.82 mg/dL Normal 0.73-1.22 [facility] Comment on above: Order Comment: Speci men Type: BLOOD SPECIMENOrdering Facility: [facility] Address: [address] [place] [address] Performed By: #### 2 4323-8 ####[facility]ATORYCLIA [id number] [address] ESTIMATED GLOMERULAR FILTRATION RATE 93 mL/min/1.73m??? Normal >=60 [facility] Comment on above: Order Comment: Speci men Type: BLOOD SPECIMENOrdering Facility: [facility] Address: [address] [place] [address] Result Comment: Pat mated Glomerular Filtration Rate (eGFR) is calculated using the 2020 CKD-EPI creatinine equation. This equation utilizes serum creatinine, sex, and age as parameters. The creatinine assay has traceable calibration to isotope dilution-mass spectrometry. Refer to KDIGO guidelines for clinical interpretation. In patients with unstable renal function, e.g. those with acute kidney injury, the eGFR may not accurately reflect actual GFR. Performed By: #### 2 4323-8 ####[facility]ATORYCLIA [id number] [place] [address] [place] Glucose [Mass/Vol] 108 mg/dL High 74-99 [facility] Comment on above: Order Comment: Rashaun manoj Type: BLOOD SPECIMENOrdering Facility: [facility] Address: [address] [place] [address] Result Comment: The [place] Diabetes Association (ADA) provides guidance for cutoff values for fasting glucose and random glucose. The ADA defines fasting as no caloric intake for at least 8 hours. Fasting plasma glucose results between 100 to 125 mg/dL indicate increased risk for diabetes (prediabetes). Fasting plasma glucose results greater than or equal to 126 mg/dL meet the criteria for diagnosis of diabetes. In the absence of unequivocal hyperglycemia, results should be confirmed by repeat testing. In a patient with classic symptoms of hyperglycemia or hyperglycemic crisis, random plasma glucose results greater than or equal to 200 mg/dL meet the criteria for diagnosis of diabetes. Reference: Standards of Medical Care in Diabetes 2016, [place] Diabetes Association. Diabetes Care. 2016.39(Suppl 1). Performed By: #### 2 4323-8 ####[facility]ORATORYCLIA [id number] [place] [address] [place] Potassium [Moles/Vol] 4.1 mmol/L Normal 3.7-5.1 [facility] Comment on above: Order Comment: Rashaun manoj Type: BLOOD SPECIMENOrdering Facility: [facility] Address: [address] [place] [address] Performed By: #### 2 4323-8 ####[facility]ATORYCLIA [id number] [place] [address] [place] Protein [Mass/Vol] 7.5 g/dL Normal 6.3-8.0 [facility] Comment on above: Order Comment: Rashaun aranda Type: BLOOD SPECIMENOrdering Facility: [facility] Address: [address] [place] [address] Performed By: #### 2 4323-8 ####[facility]ATORYCLIA [id number] [place] [address] [place] Sodium [Moles/Vol] 142 mmol/L Normal 136-144 [facility] Comment on above: Order Comment: Speci men Type: BLOOD SPECIMENOrdering Facility: [facility] Address: [address] [place] [address] Performed By: #### 2 4323-8 ####[facility]ORYCLIA [id number] [address] Urea nitrogen [Mass/Vol] 16 mg/dL Normal 9-24 [facility] Comment on above: Order Comment: Speci men Type: BLOOD SPECIMENOrdering Facility: [facility] Address: [address] [place] [address] Performed By: #### 2 4323-8 ####[facility]ATORYCLIA [id number] [address] HbA1c (Bld)on 10-02-2022 Average glucose Estimated from glycated hemoglobin (Bld) [Mass/Vol] 151 mg/dL Normal [facility] Comment on above: Order Comment: Speci men Type: BLOOD SPECIMENOrdering Facility: [facility] Address: [address] [place] [address] Result Comment: eAG: (Estimated average glucose) is a calculated value from HgbA1c and is home office representative of the average blood glucose level in the last 2-3 month period. Performed By: #### 5 5454-3 ####[facility]ATORYCLIA [id number] [address] HbA1c (Bld) [Mass fraction] 6.9 % High 4.3-5.6 [facility] Comment on above: Order Comment: Rashaun aranda Type: BLOOD SPECIMENOrdering Facility: [facility] Address: [address] [place] [address] Result Comment: [place] Diabetes Association guidelines indicate that patients with HgbA1c in the range 5.7-6.4% are at increased risk for development of diabetes, and intervention by lifestyle modification may be beneficial. HgbA1c greater or equal to 6.5% is considered diagnostic of diabetes. Performed By: #### 5 5454-3 ####[facility]ATORYCLIA [id number] [address] [facility] Laboratory - Microbiology an d Antimicrobial susceptibilityon 10-02-2022 S. aureus and MRSA panel BECCA+probe (Nose) Positive Abnormal Negative [facility] Magnesium SerPl-mCncon 10-02 Magnesium [Mass/Vol] 2.1 mg/dL Normal 1.7-2.3 [facility] Comment on above: Order Comment: Speci men Type: BLOOD SPECIMENOrdering Facility: [facility] Address: [address] [place] [address] Performed By: #### 1 9123-9, 3016-3 ####[facility]ATORYCLIA [id number] [address] PT panel Coag (PPP)on 2021 INR Coag (PPP) [Relative time] {INR} Low 0.9-1.3 [facility] Comment on above: Order Comment: Speci men Type: URINE SPECIMEN Ordering Facility: [facility] Address: [address] [place] [address] Result Comment: Vivian min K Antagonist (VKA) Therapeutic Range: INR 2 to 3 (Target INR of 2.5) Note: For patients treated with VKA drugs, such as warfarin, the [place] [employer] 2012 Guideline recommends a therapeutic INR range of 2 to 3 (target INR of 2.5). This recommendation includes high-risk patients with antiphospholipid syndrome with previous arterial or venous thromboembolism, current-generation mechanical or bioprosthetic aortic heart valve replacement. Note: Patients with mechanical aortic valve replacement and additional risk factors for thromboembolic events (atrial fibrillation, previous thromboembolism, LV dysfunction, hypercoagulable conditions) or an older generation mechanical AVR (i.e., ball in-Cage) or any mechanical MVR should have a INR therapeutic range of 2.5 to 3.5 (target INR of 3). Ramirez GH, et al. Chest 2012, 141:7S-47S Shahid RA, et al. [facility] 2017, 70: 252-289 Performed By: #### 2 4356-8 #### [facility] CLIA [id number] [address] PT Coag (PPP) [Time] 9.8 s Normal 9.7-13.0 [facility] Comment on above: Order Comment: Speci men Type: URINE SPECIMEN [facility]ing Facility: [facility] Address: [address] [place] [address] Performed By: #### 2 4356-8 #### [facility] CLIA [id number] [address] STAPH AUREUS PCRon 2 S. aureus and MRSA panel BECCA+probe (Nose) Abnormal Negative [facility] Comment on above: Order Comment: Speci men Type: URINE SPECIMEN [facility]ing Facility: [facility] Address: [address] [place] [address] Result Comment: Posi tive for Staphylococcus aureus by PCR. Positive for MRSA by PCR Performed By: #### 2 4356-8 #### [facility] CLIA [id number] [address] [place] [address] OF [facility] TSH SerPl-aCncon 10-02-2022 TSH Qn 0.951 m[IU]/L Normal 0.270-4.200 [facility] Comment on above: Order Comment: Speci men Type: BLOOD SPECIMENOrdering Facility: [facility] Address: [address] [place] [address] Performed By: #### 1 9123-9, 3016-3 ####[facility]ORYCLIA [id number] [address] TYPE AND SCREEN,30 DAYon ABO O Normal [facility] Comment on above: Order Comment: Speci men Type: BLOOD SPECIMEN [facility]ing Facility: [facility] Address: [address] [place] [address] Performed By: #### T SCR30 #### [facility] CLIA [id number] [address] [place] [address] HISTORICAL AB SCR STATUS Negative Normal [facility] Comment on above: Order Comment: Speci men Type: BLOOD SPECIMEN [facility]ing Facility: [facility] Address: [address] [place] [address] Performed By: #### T SCR30 #### [facility] CLIA [id number] [address] Rh Nom (Bld) Negative Normal [facility] Comment on above: Order Comment: Speci men Type: BLOOD SPECIMEN [facility]ing Facility: [facility] Address: [address] [place] [address] Performed By: #### T SCR30 #### [facility] CLIA [id number] [address] Urinalysis complete panel (U )on 10-02-2022 Bilirubin Ql (U) Negative Normal Negative [facility] Comment on above: Order Comment: Speci men Type: URINE SPECIMEN [facility]ing Facility: [facility] Address: [address] [place] [address] Performed By: #### 2 4356-8 #### [facility] CLIA [id number] [address] Clarity (Unsp spec) Clear Normal Clear [facility] Comment on above: Order Comment: Speci men Type: URINE SPECIMEN [facility]ing Facility: [facility] Address: [address] [place] [address] Performed By: #### 2 4356-8 #### [facility] CLIA [id number] [address] Color (U) Light Yellow Normal yellow [facility] Comment on above: Order Comment: Speci men Type: URINE SPECIMEN [facility]ing Facility: [facility] Address: [address] [place] [address] Performed By: #### 2 4356-8 #### [facility] CLIA [id number] [address] Glucose Test strip (U) [Mass/Vol] Negative Normal Trace, Negative [facility] Comment on above: Order Comment: Speci men Type: URINE SPECIMEN [facility]ing Facility: [facility] Address: [address] [place] [address] Performed By: #### 2 4356-8 #### [facility] CLIA [id number] [address] [place] Hemoglobin Ql (U) Negative Normal Negative, Trace [facility] Comment on above: Order Comment: Speci men Type: URINE SPECIMEN Ordering Facility: [facility] Address: [address] [address] Performed By: #### 2 4356-8 #### [facility] CLIA [id number] [address] OF [facility] Ketones Ql (U) Negative Normal Negative, Trace [facility] Comment on above: Order Comment: Speci men Type: URINE SPECIMEN Ordering Facility: [facility] Address: [address] [address] Performed By: #### 2 4356-8 #### [facility] CLIA [id number] [address] Leukocyte esterase Test strip Ql (U) Negative Normal Negative, 25 Bri/mL [facility] Comment on above: Order Comment: Speci men Type: URINE SPECIMEN Ordering Facility: [facility] Address: [address] [address] Performed By: #### 2 4356-8 #### [facility] CLIA [id number] [address] Nitrite Ql (U) Negative Normal Negative [facility] Comment on above: Order Comment: Speci men Type: URINE SPECIMEN [facility]ing Facility: [facility] Address: [address] [address] Performed By: #### 2 4356-8 #### [facility] CLIA [id number] [address] OF [facility] pH (U) 5.5 [pH] Normal 5.0-8.0 [facility] Comment on above: Order Comment: Speci men Type: URINE SPECIMEN [facility]ing Facility: [facility] Address: [address] [address] Performed By: #### 2 4356-8 #### [facility] CLIA [id number] [address] Protein (U) [Mass/Vol] Negative Normal Trace , Negative [facility] Comment on above: Order Comment: Speci men Type: URINE SPECIMEN Ordering Facility: [facility] Address: [address] [place] [address] Performed By: #### 2 4356-8 #### [facility] CLIA [id number] [address] RBC LM.HPF (Urine sed) [#/Area] 0-3 /HPF Normal 0-3 /HPF [facility] Comment on above: Order Comment: Speci men Type: URINE SPECIMEN [facility]ing Facility: [facility] Address: [address] [place] [address] Performed By: #### 2 4356-8 #### [facility] CLIA [id number] [address] Specific gravity (U) [Rel density] 1.015 Normal 1.005-1.030 [facility] [facility] Comment on above: Order Comment: Speci men Type: URINE SPECIMEN Ordering Facility: [facility] Address: [address] [place] [address] Performed By: #### 2 4356-8 #### [facility] CLIA [id number] [address] Urobilinogen Ql (U) Normal Normal Negative [facility] Comment on above: Order Comment: Speci men Type: URINE SPECIMEN Ordering Facility: [facility] Address: [address] [place] [address] Performed By: #### 2 4356-8 #### [facility] CLIA [id number] [address] WBC LM.HPF (Urine sed) [#/Area] 0-5 /HPF Normal 0-5 /HPF [facility] Comment on above: Order Comment: Speci men Type: URINE SPECIMEN Ordering Facility: [facility] Address: [address] [place] [address] Performed By: #### 2 4356-8 #### [id number] [address] [facility] Dev 09-04-2022 CNPN Telephone (KRISHChangePanda) -- DENTON WESLEY ([id number]) 1950 M Date Time Provider Department 09/04/22 BRIAN COLMENARES During your visit today, we recorded the following information about you: Brenton Jose Daniel Brandiemacho 09/04/2022 2:12 PM Signed Spoke with pt to reschedule heart surgery. Preadmission instructions office visit 10/02/22 3pm. Presurgical labs to be drawn 10/02/22 while here in [place], since pt lives in [place], [place]. No fasting required. [facility]. COVID test 10/06/22 2:30pm [facility]. CABG 10/09/22 arrival time 6am procedure time 7:30am at [facility] Elena Sanchezfer Linda 09/04/2022 4:00 PM Signed Pt has orders for COVID test to be done in [place] on 10/06/21 at 2 pm. Unable to schedule due to another procedure on his schedule for the same date that overlaps the time. Unable to schedule at the time of call. Allergies As of Date: 09/04/2022 Noted Allergy Reaction GEMFIBROZIL 09/25/2019 5 - Intolerance ROSUVASTATIN 09/25/2019 5 - Intolerance SIMVASTATIN 09/25/2019 5 - Intolerance IMDUR (ISOSORBIDE) 03/05/2022 14 - Other: See Comments Comments: Headaches, upset stomach, fatigue PENICILLINS 02/10/2007 14 - Other: See Comments Comments: passed out and felt like I had the flu Pt states he's no longer allergic to this, he's taken tests w/out issues. PRAVASTATIN 08/07/2021 17 - Myalgia Date Reviewed: 08/18/2022 Reviewed by: Ava Gil MA - Fully Assessed Reason for Visit: Appointment Rescheduled [1024] Cmt: New surgery date info Prescriptions as of 09/04/2022 - lansoprazole (PREVACID) 30 mg capsule Take 1 capsule by mouth daily before breakfast. 1/2 hr before meal. - metoprolol tartrate, short acting, (LOPRESSOR) 100 mg tablet Take 1 tablet by mouth one time only for 1 dose. For day of surgery. - losartan (COZAAR) 100 mg tablet Take 1 tablet by mouth once daily. - tamsulosin (FLOMAX) 0.4 mg Take 1 capsule by mouth daily at bedtime. - FARXIGA 10 mg tablet Take 10 mg by mouth once daily. - alirocumab (PRALUENT PEN) 75 mg/mL pen Inject 1 mL subcutaneously every other week. - carvedilol (COREG) 25 mg tablet Take 1 tablet by mouth twice daily with meals. - clopidogrel (PLAVIX) 75 mg tablet Take 1 tablet by mouth once daily. - ADVAIR DISKUS 500-50 mcg/dose dsdv INHALE 1 (ONE) puff EVERY 12 HOURS - aspirin, enteric coated (ASPIRIN, ENTERIC COATED) 81 mg EC tablet aspirin ASPIRIN 81 MG TABS One tablet by mouth daily ASPIRIN [id number] Daya Deal RN 02-20-2016 [facility] ([id number]) Facility-Administered Medications as of 09/04/2022 - perflutren lipid microspheres 1.3 mL in NaCl (PF) 0.9% 10 mL injection (DEFINITY) - sodium chloride 0.9 % (flush) 10 mL (BD POSIFLUSH) - perflutren lipid microspheres 1.3 mL in NaCl (PF) 0.9% 10 mL injection (DEFINITY) - sodium chloride 0.9 % (flush) 10 mL (BD POSIFLUSH) Problem List As Of Date 09/04/2022 Noted Resolved SUBCUTANEOUS NODULES [R22.9] 02/21/2007 Dark urine [R82.998] 10/05/2013 Abdominal pain, other specified site [R10.9] Elevated glucose [R73.09] 01/29/2020 Coronary artery disease of nome artery of kevin*01/29/2020 Mixed hyperlipidemia [E78.2] 01/29/2020 Essential hypertension [I10] 01/29/2020 S/P right coronary artery (RCA) stent placement*06/24/2021 Pure hypercholesterolemia [E78.00] 08/13/2021 Elevated PSA [R97.20] 03/11/2022 Stable angina (HCC) [I20.8] 06/10/2022 Dyspnea on exertion [R06.09] 06/10/2022 Encounter Status:Closed by BRENTON BAGLEY on 09/04/22 [facility] CNPN Telephone (AGVASACC) -- DENTON WESLEY ([id number]) 1950 M Date Time Provider Department 09/04/22 BRIAN COLMENARES [employer] TechnologiesV[employer] During your visit today, we recorded the following information about you: Brenton Bagley 09/04/2022 9:41 AM Signed Left message requesting call back to discuss rescheduling CABG Allergies As of Date: 09/04/2022 Noted Allergy Reaction GEMFIBROZIL 09/25/2019 5 - Intolerance ROSUVASTATIN 09/25/2019 5 - Intolerance SIMVASTATIN 09/25/2019 5 - Intolerance IMDUR (ISOSORBIDE) 03/05/2022 14 - Other: See Comments Comments: Headaches, upset stomach, fatigue PENICILLINS 02/10/2007 14 - Other: See Comments Comments: passed out and felt like I had the flu Pt states he's no longer allergic to this, he's taken tests w/out issues. PRAVASTATIN 08/07/2021 17 - Myalgia Date Reviewed: 08/18/2022 Reviewed by: Ava Gil MA - Fully Assessed Reason for Visit: LMTCB [1226] Prescriptions as of 09/04/2022 - lansoprazole (PREVACID) 30 mg capsule Take 1 capsule by mouth daily before breakfast. 1/2 hr before meal. - metoprolol tartrate, short acting, (LOPRESSOR) 100 mg tablet Take 1 tablet by mouth one time only for 1 dose. For day of surgery. - losartan (COZAAR) 100 mg tablet Take 1 tablet by mouth once daily. - tamsulosin (FLOMAX) 0.4 mg Take 1 capsule by mouth daily at bedtime. - FARXIGA 10 mg tablet Take 10 mg by mouth once daily. - alirocumab (PRALUENT PEN) 75 mg/mL pen Inject 1 mL subcutaneously every other week. - carvedilol (COREG) 25 mg tablet Take 1 tablet by mouth twice daily with meals. - clopidogrel (PLAVIX) 75 mg tablet Take 1 tablet by mouth once daily. - ADVAIR DISKUS 500-50 mcg/dose dsdv INHALE 1 (ONE) puff EVERY 12 HOURS - aspirin, enteric coated (ASPIRIN, ENTERIC COATED) 81 mg EC tablet aspirin ASPIRIN 81 MG TABS One tablet by mouth daily ASPIRIN [id number] Daya Deal RN 02-20-2016 [facility] ([id number]) Facility-Administered Medications as of 09/04/2022 - perflutren lipid microspheres 1.3 mL in NaCl (PF) 0.9% 10 mL injection (DEFINITY) - sodium chloride 0.9 % (flush) 10 mL (BD POSIFLUSH) - perflutren lipid microspheres 1.3 mL in NaCl (PF) 0.9% 10 mL injection (DEFINITY) - sodium chloride 0.9 % (flush) 10 mL (BD POSIFLUSH) Problem List As Of Date 09/04/2022 Noted Resolved SUBCUTANEOUS NODULES [R22.9] 02/21/2007 Dark urine [R82.998] 10/05/2013 Abdominal pain, other specified site [R10.9] Elevated glucose [R73.09] 01/29/2020 Coronary artery disease of nome artery of kevin*01/29/2020 Mixed hyperlipidemia [E78.2] 01/29/2020 Essential hypertension [I10] 01/29/2020 S/P right coronary artery (RCA) stent placement*06/24/2021 Pure hypercholesterolemia [E78.00] 08/13/2021 Elevated PSA [R97.20] 03/11/2022 Stable angina (HCC) [I20.8] 06/10/2022 Dyspnea on exertion [R06.09] 06/10/2022 Encounter Status:Closed by BRENTON BAGLEY on 09/04/22 Normal [facility] US SOFT TISSUE ABDOMENon [facility] Dev 08-06-2022 CNPN Telephone (AGChangePanda) -- DENTON WESLEY ([id number]) 1950 M Date Time Provider Department 08/06/22 BRIAN COLMENARES During your visit today, we recorded the following information about you: Brenton Bagley 08/06/2022 9:26 AM Signed Phoned pt to schedule CABG offered 08/17/22 pt declined. Opted for 08/28/22 instead. Preadmission instructions office visit 08/21/22 2pm. Presurgical labs to be drawn 08/21/22 while here in [place], since pt lives in [place], [place]. No fasting required. [facility]. COVID test 08/25/22 walk-in appt at [facility]. CABG 08/28/22 arrival time 6am procedure time 7:30am at [facility]. Allergies As of Date: 08/06/2022 Noted Allergy Reaction GEMFIBROZIL 09/25/2019 5 - Intolerance ROSUVASTATIN 09/25/2019 5 - Intolerance SIMVASTATIN 09/25/2019 5 - Intolerance IMDUR (ISOSORBIDE) 03/05/2022 14 - Other: See Comments Comments: Headaches, upset stomach, fatigue PENICILLINS 02/10/2007 14 - Other: See Comments Comments: passed out and felt like I had the flu Pt states he's no longer allergic to this, he's taken tests w/out issues. 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) [I25.118] Other Visit Diagnoses:Preoperative testing [Z01.818] Elevated PSA [R97.20] Type 2 diabetes mellitus without complication, without long-term current use of insulin (HCC) [E11.9] Order(s):SURGICAL REQUEST - ELECTIVE (05/2020) [8236653] Order #: [id number]: 1 PRE-PROCEDURE AND PRE-OPERATIVE COVID [SQPOCOVD] Order #: [id number] FUTURE CBC [SQCBC] Order #: [id number] FUTURE TYPE AND SCREEN,30 DAY [CDGPLL20] Order #: [id number] FUTURE COMP METABOLIC PANEL [SQCMP] Order #: [id number] FUTURE PROTHROMBIN TIME/PT [SQPT] Order #: [id number] FUTURE XR CHEST 2V FRONTAL/LAT [6634203] Order #: [id number] FUTURE RED BLOOD CELLS, ADULT [SQRCAD] Order #: [id number] HGB A1C [KSEUL5Y] Order #: [id number] FUTURE MAGNESIUM BLD [SQMG1] Order #: [id number] FUTURE TSH BLD [SQTSH] Order #: [id number] FUTURE URINALYSIS WITH MICROSCOPIC, REFLEX CULTURE [SQUACII] Order #: [id number] FUTURE Prescriptions as of 08/06/2022 - iv contrast (will be provided with radiology test) MRI Prostate Inject, intravenously, once for 1 dose. No IV access, insert saline lock prior to the beginning of sedation, infusion, injection of imaging exam. Discontinue saline lock post exam. If Pt. has a central line or IVAD, may access for administration according to line specific nursing protocol. Once exam is complete flush line and de-access according to line specific nursing protocol in the MR contrast administration guidelines link. - tamsulosin (FLOMAX) 0.4 mg Take 1 capsule by mouth daily at bedtime. - FARXIGA 10 mg tablet Take 10 mg by mouth once daily. - alirocumab (PRALUENT PEN) 75 mg/mL pen Inject 1 mL subcutaneously every other week. - losartan (COZAAR) 50 mg tablet Take 1 tablet by mouth once daily. - carvedilol (COREG) 25 mg tablet Take 1 tablet by mouth twice daily with meals. - clopidogrel (PLAVIX) 75 mg tablet Take 1 tablet by mouth once daily. - ADVAIR DISKUS 500-50 mcg/dose dsdv INHALE 1 (ONE) puff EVERY 12 HOURS - aspirin, enteric coated (ASPIRIN, ENTERIC COATED) 81 mg EC tablet aspirin ASPIRIN 81 MG TABS One tablet by mouth daily ASPIRIN [id number] Daya Deal RN 02-20-2016 [facility] ([id number]) - LANSOPRAZOLE 30 mg capsule Take 30 mg by mouth once daily. Facility-Administered Medications as of 08/06/2022 - perflutren lipid microspheres 1.3 mL in NaCl (PF) 0.9% 10 mL injection (DEFINITY) - sodium chloride 0.9 % (flush) 10 mL (BD POSIFLUSH) - perflutren lipid microspheres 1.3 mL in NaCl (PF) 0.9% 10 mL injection (DEFINITY) - sodium chloride 0.9 % (flush) 10 mL (BD POSIFLUSH) Problem List As Of Date 08/06/2022 Noted Resolved SUBCUTANEOUS NODULES [R22.9] 02/21/2007 Dark urine [R82.998] 10/05/2013 Abdominal pain, other specified site [R10.9] Elevated glucose [R73.09] 01/29/2020 Coronary artery disease of nome artery of kevin*01/29/2020 Mixed hyperlipidemia [E78.2] 01/29/2020 Essential hypertension [I10] 01/29/2020 S/P right coronary artery (RCA) stent placement*06/24/2021 Pure hypercholesterolemia [E78.00] 08/13/2021 Elevated PSA [R97.20] 03/11/2022 Stable angina (HCC) [I20.8] 06/10/2022 Dyspnea on exertion [R06.09] 06/10/2022 Encounter Status:Closed by GET FULTON on 08/06/22 [facility] CNPN Telephone (VTTopDeejays) -- DENTON WESLEY ([id number]) 1950 M Date Time Provider Department 08/06/22 ARIS TOLBERT During your visit today, we recorded the following information about you: Deepika Rodriguez [employer] Operator 08/06/2022 9:26 AM Signed Decipher test sent Deepika Rodriguez [employer] Catal[employer] Operator Allergies As of Date: 08/06/2022 Noted Allergy Reaction GEMFIBROZIL 09/25/2019 5 - Intolerance ROSUVASTATIN 09/25/2019 5 - Intolerance SIMVASTATIN 09/25/2019 5 - Intolerance IMDUR (ISOSORBIDE) 03/05/2022 14 - Other: See Comments Comments: Headaches, upset stomach, fatigue PENICILLINS 02/10/2007 14 - Other: See Comments Comments: passed out and felt like I had the flu Pt states he's no longer allergic to this, he's taken tests w/out issues. PRAVASTATIN 08/07/2021 17 - Myalgia Date Reviewed: 08/05/2022 Reviewed by: Aris Tolbert DO - Fully Assessed Reason for Visit: Orders [681] Prescriptions as of 08/06/2022 - iv contrast (will be provided with radiology test) MRI Prostate Inject, intravenously, once for 1 dose. No IV access, insert saline lock prior to the beginning of sedation, infusion, injection of imaging exam. Discontinue saline lock post exam. If Pt. has a central line or IVAD, may access for administration according to line specific nursing protocol. Once exam is complete flush line and de-access according to line specific nursing protocol in the MR contrast administration guidelines link. - tamsulosin (FLOMAX) 0.4 mg Take 1 capsule by mouth daily at bedtime. - FARXIGA 10 mg tablet Take 10 mg by mouth once daily. - alirocumab (PRALUENT PEN) 75 mg/mL pen Inject 1 mL subcutaneously every other week. - losartan (COZAAR) 50 mg tablet Take 1 tablet by mouth once daily. - carvedilol (COREG) 25 mg tablet Take 1 tablet by mouth twice daily with meals. - clopidogrel (PLAVIX) 75 mg tablet Take 1 tablet by mouth once daily. - ADVAIR DISKUS 500-50 mcg/dose dsdv INHALE 1 (ONE) puff EVERY 12 HOURS - aspirin, enteric coated (ASPIRIN, ENTERIC COATED) 81 mg EC tablet aspirin ASPIRIN 81 MG TABS One tablet by mouth daily ASPIRIN [id number] Daya Deal RN 02-20-2016 [facility] ([id number]) - LANSOPRAZOLE 30 mg capsule Take 30 mg by mouth once daily. Facility-Administered Medications as of 08/06/2022 - perflutren lipid microspheres 1.3 mL in NaCl (PF) 0.9% 10 mL injection (DEFINITY) - sodium chloride 0.9 % (flush) 10 mL (BD POSIFLUSH) - perflutren lipid microspheres 1.3 mL in NaCl (PF) 0.9% 10 mL injection (DEFINITY) - sodium chloride 0.9 % (flush) 10 mL (BD POSIFLUSH) Problem List As Of Date 08/06/2022 Noted Resolved SUBCUTANEOUS NODULES [R22.9] 02/21/2007 Dark urine [R82.998] 10/05/2013 Abdominal pain, other specified site [R10.9] Elevated glucose [R73.09] 01/29/2020 Coronary artery disease of nome artery of kevin*01/29/2020 Mixed hyperlipidemia [E78.2] 01/29/2020 Essential hypertension [I10] 01/29/2020 S/P right coronary artery (RCA) stent placement*06/24/2021 Pure hypercholesterolemia [E78.00] 08/13/2021 Elevated PSA [R97.20] 03/11/2022 Stable angina (HCC) [I20.8] 06/10/2022 Dyspnea on exertion [R06.09] 06/10/2022 Encounter Status:Closed by DEEPIKA RODRIGUEZ CMA on 08/06/22 [facility] CNOVon 08-05-2022 CNOV Office Visit (AKURFL ) -- DENTON WESLEY ([id number]) 1950 M Date Time Provider Department 08/05/22 9:45 AM TOMASZARIS MRORIS During your visit today, we recorded the following information about you: Respiration Weight Height 20/minute 102.5 kg 1.829 m Aris Tolbert 08/05/2022 10:54 AM Signed [facility] LOCATION: [address] [place] [address] ESTABLISHED PATIENT PATIENT INFO: Denton Wesley 72 year old Chief Complaint: Prostate Cancer HPI S/P Prostate biopsy Doing well No post biopsy issues CT Pelvis negative. Bone scan pending. 1-Duration: 2021 2-Location: prostate 3-Severity: N/A 4-Quality: Not applicable 5-Context: N/A 6-Timing: N/A 7-Modifying factors: No treatment prior to referral 8-Associated signs AND symptoms: no additional symptoms No question data found. PATHOLOGY: FINAL DIAGNOSIS A. Prostate, right base, needle core biopsy: - Benign prostatic tissue. B. Prostate, right mid, biopsy: - Benign prostatic tissue. C. Prostate, right apex, biopsy: - Benign prostatic tissue. D. Prostate, right lateral base, biopsy: - Benign prostatic tissue. E. Prostate, right lateral mid, biopsy: - Benign prostatic tissue. F. Prostate, right lateral apex, biopsy: - Benign prostatic tissue. G. Prostate, left base, biopsy: - Prostatic adenocarcinoma Erica score 3+4 = 7 (grade group 2) involving 25% of 1 core (3 mm tumor length). 40% pattern 4. High-grade prostatic intraepithelial neoplasia. H. Prostate, left mid, biopsy: - Prostatic adenocarcinoma Erica score 3+4 = 7 (grade group 2) involving 35% of 1 core (4 mm tumor length). 45% pattern 4. I. Prostate, left apex, biopsy: - Prostatic adenocarcinoma Eugene score 3+4 = 7 (grade group 2) involving 10% of 1 core (1 mm tumor length). 40% pattern 4. J. Prostate, left lateral base, biopsy: - Benign prostatic tissue. K. Prostate, left lateral mid, biopsy: - Prostatic adenocarcinoma Eugene score 4+3 = 7 (grade group 3) involving 23% of 1 core (3 mm tumor length). 60% pattern 4. L. Prostate, left lateral apex, biopsy: - Prostatic adenocarcinoma Eugene score 4+3 = 7 (grade group 3) involving 45% of 1 core (6 mm tumor length). 55% pattern 4. Small gland cribriform pattern 4 present. Prostate Cancer Biopsy Summary Number of cores examined: 12 Number of cores positive: 5 Highest Grade Group: 3 Highest % of core involvement: 45 % Cribriform pattern 4: Present Intraductal carcinoma: Absent Pumper Helper tumor block to use for additional studies: L LAB: WBC (k/uL) Date Value 06/10/2022 7.09 RBC (m/uL) Date Value 06/10/2022 4.94 Hemoglobin (g/dL) Date Value 06/10/2022 14.7 Hematocrit (%) Date Value 06/10/2022 44.1 MCV (fL) Date Value 06/10/2022 89.3 MCH (pg) Date Value 06/10/2022 29.8 MCHC (g/dL) Date Value 06/10/2022 33.3 RDW-CV (%) Date Value 06/10/2022 13.4 Platelet Count (k/uL) Date Value 06/10/2022 263 MPV (fL) Date Value 06/10/2022 8.9 (L) Neut% (%) Date Value 02/09/2022 62.4 Lymph% (%) Date Value 02/09/2022 23.1 Forest% (%) Date Value 02/09/2022 8.8 Eosin% (%) Date Value 10/23/2020 4.5 Baso% (%) Date Value 02/09/2022 1.0 Abs Neut (k/uL) Date Value 02/09/2022 5.37 Abs Forest (k/uL) Date Value 02/09/2022 0.76 Abs Eosin (k/uL) Date Value 02/09/2022 0.36 Abs Baso (k/uL) Date Value 02/09/2022 0.09 Creatinine Date Value Ref Range Status 06/10/2022 0.74 0.73 - 1.22 mg/dL Final 03/20/2022 1.05 0.73 - 1.22 mg/dL Final 03/10/2022 1.02 0.73 - 1.22 mg/dL Final 04/01/2021 0.78 0.73 - 1.22 mg/dL Final PSA (ng/mL) Date Value 03/12/2022 4.62 03/10/2022 4.86 PSA, Percent Free (%) Date Value 03/12/2022 14 URINE POC GLUCOSE UA (POCT) 500 07/14/2022 BILIRUBIN UA (POCT) Negative 07/14/2022 KETONE UA (POCT) Negative 07/14/2022 SPECIFIC GRAVITY UA (POCT) 1.025 07/14/2022 HEMOGLOBIN/BLOOD UA (POCT) Trace-intact 07/14/2022 PH UA (POCT) 5.5 07/14/2022 PROTEIN UA (POCT) Negative 07/14/2022 UROBILINOGEN UA (POCT) 0.2 07/14/2022 NITRITE UA (POCT) Negative 07/14/2022 LEUKOCYTES UA (POCT) Negative 07/14/2022 COLOR UA (POCT) Light yellow 07/14/2022 CLARITY UA (POCT) Clear 07/14/2022 IMAGING: CT Scan: CT PELVIS W IVCON (Order [id number]) Patient Info Patient Name Sex Denton Sherman ([id number]) Male 1950 07/31/2022 10:01 AM - Radiology, Oru In Impression IMPRESSION: Mildly enlarged prostate. Colonic diverticulosis. No CT evidence of lymphadenopathy in the pelvis. I have independently reviewed films and my findings are the same. ALLERGIES: ALLERGIES Allergen Reactions Gemfibrozil Intolerance Rosuvastatin Intolerance Simvastatin Intolerance Imdur [Isosorbide] Other: See Comments Headaches, upset stomac (more content not included)... Normal [facility] CT PELVIS W IVCONon 07-29-20 [facility] UA DIP, URINE (POC)on 2021 BILIRUBIN UA (POCT) Negative Negative [facility] CLARITY UA (POCT) Clear [facility] COLOR UA (POCT) Light yellow [facility] GLUCOSE UA (POCT) 500 mg/dL Abnormal Negative mg/dL [facility] HEMOGLOBIN/BLOOD UA (POCT) Trace-intact Abnormal Negative [facility] KETONE UA (POCT) Negative Negative mg/dL [facility] LEUKOCYTES UA (POCT) Negative Negative [facility] NITRITE UA (POCT) Negative Negative [facility] PH UA (POCT) 5.5 4.5 - 8.0 [facility] Protein Ql (U) Negative Negative mg/dL [facility] SPECIFIC GRAVITY UA (POCT) 1.025 1.005 - 1.030 [facility] UROBILINOGEN UA (POCT) 0.2 E.U./dL Shaniqua l E.U./dL [facility] BILIRUBIN UA (POCT) Negative Negative [facility] CLARITY UA (POCT) Clear [facility] COLOR UA (POCT) Yellow [facility] GLUCOSE UA (POCT) 500 mg/dL Abnormal Negative mg/dL [facility] HEMOGLOBIN/BLOOD UA (POCT) Trace-intact Abnormal Negative [facility] KETONE UA (POCT) Negative Negative mg/dL [facility] LEUKOCYTES UA (POCT) Negative Negative [facility] NITRITE UA (POCT) Negative Negative [facility] PH UA (POCT) 5.5 4.5 - 8.0 [facility] Protein Ql (U) Negative Negative mg/dL [facility] SPECIFIC GRAVITY UA (POCT) >=1.030 1.005 - 1.030 [facility] UROBILINOGEN UA (POCT) 0.2 E.U./dL Shaniqua l E.U./dL [facility] Basic metabolic 2000 panelon 06-10-2022 Anion gap [Moles/Vol] 10 mmol/L 9 - 18 mmol/L [facility] Calcium [Mass/Vol] 9.2 mg/dL 8.5 - 10. 2 mg/dL [facility] Chloride [Moles/Vol] 105 mmol/L 97 - 10 5 mmol/L [facility] CO2 [Moles/Vol] 22 mmol/L 22 - 30 mmol/L [facility] Creatinine [Mass/Vol] 0.74 mg/dL 0.73 - 1.22 mg/dL [facility] Estimated Glomerular Filtration Rate 96 mL/min/1.73m >=60 mL/min/1.73 m [facility] Glucose [Mass/Vol] 163 mg/dL High 74 - 99 mg/dL [facility] Potassium [Moles/Vol] 4.5 mmol/L 3.7 - 5.1 mmol/L [facility] Sodium [Moles/Vol] 137 mmol/L 136 - 144 mmol/L [facility] Urea nitrogen [Mass/Vol] 19 mg/dL 9 - 24 mg/dL [facility] CBC panel Auto (Bld)on 06-10 Erythrocyte distribution width (RBC) [Ratio] 13.4 % 11.5 - 15.0 % [facility] Hematocrit (Bld) [Volume fraction] 44.1 % 39.0 - 51.0 % [facility] Hemoglobin (Bld) [Mass/Vol] 14.7 g/dL 13.0 - 17.0 g/dL [facility] MCH (RBC) [Entitic mass] 29.8 pg 26.0 - 34.0 pg [facility] MCHC (RBC) [Mass/Vol] 33.3 g/dL 30.5 - 36.0 g/dL [facility] MCV (RBC) [Entitic vol] 89.3 fL 80.0 - 100.0 fL [facility] Nucleated RBC (Bld) [#/Vol] <0.01 k/uL [facility] Platelet mean volume (Bld) [Entitic vol] 8.9 fL Low 9.0 - 12.7 fL [facility] Platelets (Bld) [#/Vol] 263 10*3/uL 150 - 400 k/uL [facility] RBC (Bld) [#/Vol] 4.94 10*6/uL 4.20 - 6.0 0 m/uL [facility] WBC (Bld) [#/Vol] 7.09 10*3/uL 3.70 - 11.00 k/uL [facility] UA DIP, URINE (POC)on 2021 BILIRUBIN UA (POCT) Negative Negative [facility] CLARITY UA (POCT) Clear [facility] COLOR UA (POCT) Yellow [facility] GLUCOSE UA (POCT) 100 mg/dL Abnormal Negative mg/dL [facility] HEMOGLOBIN/BLOOD UA (POCT) Negative Negative [facility] KETONE UA (POCT) Negative Negative mg/dL [facility] LEUKOCYTES UA (POCT) Negative Negative [facility] NITRITE UA (POCT) Negative Negative [facility] PH UA (POCT) 5.5 4.5 - 8.0 [facility] Protein Ql (U) Negative Negative mg/dL [facility] SPECIFIC GRAVITY UA (POCT) 1.020 1.005 - 1.030 [facility] UROBILINOGEN UA (POCT) 1.0 E.U./dL Hsaniqua l E.U./dL [facility] CT ABD/PEL WO IVCONon 2021 [facility] XR Ribs - right Views and est PAon 01-06-2022 IMPRESSION: Negative ribs. 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 No known injury. TECHNIQUE: XR RIB/CHST 3V AP RIB/OBL/CHST R Laterality: RIGHT Number of different views (projections): 3 M: XB_1 COMPARISON: There are no prior relevant chest x-ray or rib examinations available for comparison within the [facility] Imaging Archives. Comparison is made to prior MRI which includes the lung bases. RESULT: Frontal radiograph of the chest and dedicated views of the right ribs show no evidence of pneumothorax, hemothorax or pulmonary contusion. Right basilar pleural-parenchymal stranding medially is unchanged from prior study and consistent with scar. The visualized bony structures are intact without apparent displaced or nondisplaced rib fracture. DIVISION OF RADIOLOGY Provider, [facility] - 01/06/2022 * * *Final Report* * * DATE OF EXAM: Jan 06 2022 5:16PM WOX [id number] - XR RIB/CHST 3V AP RIB/OBL/CHST R / PROCEDURE REASON: Rib pain on right side * * * * Physician Interpretation * * * * EXAMINATION: XR RIB/CHST 3V AP RIB/OBL/CHST R HISTORY: RIGHT sided rib pain. No known injury. TECHNIQUE: XR RIB/CHST 3V AP RIB/OBL/CHST R Laterality: RIGHT Number of different views (projections): 3 M: XB_1 COMPARISON: There are no prior relevant chest x-ray or rib examinations available for comparison within the [facility] Imaging Archives. Comparison is made to prior MRI which includes the lung bases. RESULT: Frontal radiograph of the chest and dedicated views of the right ribs show no evidence of pneumothorax, hemothorax or pulmonary contusion. Right basilar pleural-parenchymal stranding medially is unchanged from prior study and consistent with scar. The visualized bony structures are intact without apparent displaced or nondisplaced rib fracture. IMPRESSION IMPRESSION: Negative ribs. 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: PSCB Transcribe Date/Time: Jan 06 2022 5:58P Dictated by : VEGA DIAZ MD This examination was interpreted and the report reviewed and electronically signed by: VEGA DIAZ MD on Jan 06 2022 6:02PM EST [facility] Radiology Study observation (narrative) [facility] XR Ribs - right Views and Ch est PAOrdered By: [facility]cf Provider on 01-06-2022 [facility] BLADDER SCAN [facility] Vital Signs Date Time Vital Sign Value Performing Clinician Facility 05-31-2025 13:26-0400 Body height 182.9 cm Angelita Max APRN.CNP Work Phone: [facility] 05-31-2025 13:26-0400 Body mass index (BMI) [Ratio] 29.93 kg/m2 Angelita Max APRN.CNP Work Phone: [facility] 05-31-2025 13:26-0400 Body weight 100.1 kg Angelita Max APRN.CNP Work Phone: [facility] 05-31-2025 13:26-0400 Diastolic blood pressure 66 mm[Hg] Angelita Max APRN.CNP Work Phone: [facility] 05-31-2025 13:26-0400 Heart rate 69 /min Angelita Max APRN.CNP Work Phone: [facility] 05-31-2025 13:26-0400 SaO2% (BldA) [Mass fraction] 100 % Angelita Max APRN.CNP Work Phone: [facility] 05-31-2025 13:26-0400 Systolic blood pressure 130 mm[Hg] Angelita Candido OIL TREATER.TECHNICAL SUPPORT CONSULTANT Work Phone: [facility] 05-14-2025 14:23-0400 Body mass index (BMI) [Ratio] 29.97 kg/m2 Melva Neville OIL TREATER.TECHNICAL SUPPORT CONSULTANT Work Phone: [facility] 05-14-2025 14:23-0400 Body weight 100.25 kg Melva Neville OIL TREATER.TECHNICAL SUPPORT CONSULTANT Work Phone: [facility] 05-14-2025 14:23-0400 Diastolic blood pressure 70 mm[Hg] Melva Neville OIL TREATER.TECHNICAL SUPPORT CONSULTANT Work Phone: [facility] 05-14-2025 14:23-0400 Heart rate 64 /min Melva Neville OIL TREATER.TECHNICAL SUPPORT CONSULTANT Work Phone: [facility] 05-14-2025 14:23-0400 Respiratory rate 14 /min Melva Neville OIL TREATER.TECHNICAL SUPPORT CONSULTANT Work Phone: [facility] 05-14-2025 14:23-0400 SaO2% (BldA) [Mass fraction] 98 % Melva Neville OIL TREATER.TECHNICAL SUPPORT CONSULTANT Work Phone: [facility] 05-14-2025 14:23-0400 Systolic blood pressure 140 mm[Hg] Melva Neville OIL TREATER.TECHNICAL SUPPORT CONSULTANT Work Phone: [facility] 05-01-2025 08:52-0400 Body height 182.[address] Cali Cordreo MD Work Phone: [facility] 05-01-2025 08:52-0400 Body mass index (BMI) [Ratio] 29.8 kg/m2 Dr. Cali Cordero MD Work Phone: [facility] 05-01-2025 08:52-0400 Body temperature 97.6 [degF] Dr. Cali Cordero MD Work Phone: [facility] 05-01-2025 08:52-0400 Body weight 99.[address] Cali Cordero MD Work Phone: [facility] 05-01-2025 08:52-0400 Diastolic blood pressure 89 mm[Hg] Dr. Cali Cordero MD Work Phone: [facility] 05-01-2025 08:52-0400 Heart rate 83 /min Dr. Cali Cordero MD Work Phone: [facility] 05-01-2025 08:52-0400 Respiratory rate 20 /min Dr. Cali Cordero MD Work Phone: [facility] 05-01-2025 08:52-0400 SaO2% (BldA) [Mass fraction] 95 % Dr. Cali Cordero MD Work Phone: [facility] 05-01-2025 08:52-0400 Systolic blood pressure 158 mm[Hg] Dr. Cali Cordero MD Work Phone: [facility] 03-12-2025 15:08-0400 Body mass index (BMI) [Ratio] 30.65 kg/m2 Melva Neville OIL TREATER.TECHNICAL SUPPORT CONSULTANT Work Phone: [facility] 03-12-2025 15:08-0400 Body weight 102.51 kg Melva Neville OIL TREATER.TECHNICAL SUPPORT CONSULTANT Work Phone: [facility] 03-12-2025 15:08-0400 Diastolic blood pressure 60 mm[Hg] Melva Neville OIL TREATER.TECHNICAL SUPPORT CONSULTANT Work Phone: [facility] 03-12-2025 15:08-0400 Heart rate 70 /min Melva Neville OIL TREATER.TECHNICAL SUPPORT CONSULTANT Work Phone: [facility] 03-12-2025 15:08-0400 Respiratory rate 14 /min Melva Neville OIL TREATER.TECHNICAL SUPPORT CONSULTANT Work Phone: [facility] 03-12-2025 15:08-0400 SaO2% (BldA) [Mass fraction] 99 % Melva Neville OIL TREATER.TECHNICAL SUPPORT CONSULTANT Work Phone: [facility] 03-12-2025 15:08-0400 Systolic blood pressure 120 mm[Hg] Melva Neville OIL TREATER.TECHNICAL SUPPORT CONSULTANT Work Phone: [facility] 03-06-2025 13:38-0400 Body mass index (BMI) [Ratio] 31.21 kg/m2 Doris Bogner PA-C Work Phone: [facility] 03-06-2025 13:38-0400 Body temperature 98.1 [degF] Doris Bogner PA-C Work Phone: [facility] 03-06-2025 13:38-0400 Body weight 104.38 kg Doris Bogner PA-C Work Phone: [facility] 03-06-2025 13:38-0400 Diastolic blood pressure 70 mm[Hg] Doris Bogner PA-C Work Phone: [facility] 03-06-2025 13:38-0400 Heart rate 75 /min Doris Bogner PA-C Work Phone: [facility] 03-06-2025 13:38-0400 Respiratory rate 16 /min Doris Bogner PA-C Work Phone: [facility] 03-06-2025 13:38-0400 SaO2% (BldA) [Mass fraction] 96 % Doris Bogner PA-C Work Phone: [facility] 03-06-2025 13:38-0400 Systolic blood pressure 172 mm[Hg] Doris Bogner PA-C Work Phone: [facility] 02-27-2025 09:37-0400 Body mass index (BMI) [Ratio] 27.1 kg/m2 Dr. Cali Cordero MD Work Phone: [facility] 02-27-2025 09:37-0400 Body temperature 97.3 [degF] Dr. Cali Cordero MD Work Phone: [facility] 02-27-2025 09:37-0400 Body weight 90.[address] Cali Cordero MD Work Phone: [facility] 02-27-2025 09:37-0400 Diastolic blood pressure 72 mm[Hg] Dr. Cali Cordero MD Work Phone: [facility] 02-27-2025 09:37-0400 Heart rate 76 /min Dr. Cali Cordero MD Work Phone: [facility] 02-27-2025 09:37-0400 Respiratory rate 20 /min Dr. Cali Cordero MD Work Phone: [facility] 02-27-2025 09:37-0400 SaO2% (BldA) [Mass fraction] 96 % Dr. Cali Cordero MD Work Phone: [facility] 02-27-2025 09:37-0400 Systolic blood pressure 126 mm[Hg] Dr. Cali Cordero MD Work Phone: [facility] 12-15-2024 14:27-0400 Body height 182.9 cm Jere Rust APRN.TECHNICAL SUPPORT CONSULTANT Work Phone: [facility] 12-15-2024 14:27-0400 Body mass index (BMI) [Ratio] 31.33 kg/m2 Jere Rust APRN.TECHNICAL SUPPORT CONSULTANT Work Phone: [facility] 12-15-2024 14:27-0400 Body weight 104.8 kg Jere Rust APRN.TECHNICAL SUPPORT CONSULTANT Work Phone: [facility] 12-15-2024 14:27-0400 Diastolic blood pressure 78 mm[Hg] Jere Rust APRN.TECHNICAL SUPPORT CONSULTANT Work Phone: [facility] 12-15-2024 14:27-0400 Heart rate 86 /min Jere Rust APRN.TECHNICAL SUPPORT CONSULTANT Work Phone: [facility] 12-15-2024 14:27-0400 SaO2% (BldA) [Mass fraction] 98 % Jere Rust APRN.TECHNICAL SUPPORT CONSULTANT Work Phone: [facility] 12-15-2024 14:27-0400 Systolic blood pressure 142 mm[Hg] Jere Rust APRN.TECHNICAL SUPPORT CONSULTANT Work Phone: [facility] 11-27-2024 10:49-0500 Body height 180.3 cm Jania Pozo MD Work Phone: [facility] 11-27-2024 10:49-0500 Body mass index (BMI) [Ratio] 32.08 kg/m2 Jania Pozo MD Work Phone: [facility] 11-27-2024 10:49-0500 Body weight 104.33 kg Jania Pozo MD Work Phone: [facility] 11-27-2024 10:49-0500 Diastolic blood pressure 93 mm[Hg] Jania Pozo MD Work Phone: [facility] 11-27-2024 10:49-0500 Systolic blood pressure 149 mm[Hg] Jania Pozo MD Work Phone: [facility] 11-16-2024 13:06-0500 Body temperature 99.1 [degF] Meghann Strickland PA-C Work Phone: [facility] 11-16-2024 13:06-0500 Diastolic blood pressure 80 mm[Hg] Meghann Strickland PA-C Work Phone: [facility] 11-16-2024 13:06-0500 Heart rate 83 /min Meghannsae Strickland PA-C Work Phone: [facility] 11-16-2024 13:06-0500 Respiratory rate 18 /min Meghann Strickland PA-C Work Phone: [facility] 11-16-2024 13:06-0500 SaO2% (BldA) [Mass fraction] 98 % Meghann Strickland PA-C Work Phone: [facility] 11-16-2024 13:06-0500 Systolic blood pressure 138 mm[Hg] Meghann Strickland PA-C Work Phone: [facility] 09-06-2024 14:49-0500 Body mass index (BMI) [Ratio] 32.47 kg/m2 Gerri Tannhof OIL TREATER.TECHNICAL SUPPORT CONSULTANT Work Phone: [facility] 09-06-2024 14:49-0500 Body weight 105.6 kg Gerri Beltranhof OIL TREATER.TECHNICAL SUPPORT CONSULTANT Work Phone: [facility] 09-06-2024 14:49-0500 Diastolic blood pressure 82 mm[Hg] Gerri Devinhof OIL TREATER.TECHNICAL SUPPORT CONSULTANT Work Phone: [facility] 09-06-2024 14:49-0500 Heart rate 81 /min Gerri Beltranhof OIL TREATER.TECHNICAL SUPPORT CONSULTANT Work Phone: [facility] 09-06-2024 14:49-0500 Respiratory rate 16 /min Gerri Devinhof OIL TREATER.TECHNICAL SUPPORT CONSULTANT Work Phone: [facility] 09-06-2024 14:49-0500 SaO2% (BldA) [Mass fraction] 98 % Gerri Beltranhof OIL TREATER.TECHNICAL SUPPORT CONSULTANT Work Phone: [facility] 09-06-2024 14:49-0500 Systolic blood pressure 132 mm[Hg] Gerri Beltranhof OIL TREATER.TECHNICAL SUPPORT CONSULTANT Work Phone: [facility] 09-04-2024 08:41-0500 Body height 180.3 cm Jere Rust OIL TREATER.TECHNICAL SUPPORT CONSULTANT Work Phone: [facility] 09-04-2024 08:41-0500 Body mass index (BMI) [Ratio] 32.29 kg/m2 Jere Rust OIL TREATER.TECHNICAL SUPPORT CONSULTANT Work Phone: [facility] 09-04-2024 08:41-0500 Body weight 105 kg Jere Rust OIL TREATER.TECHNICAL SUPPORT CONSULTANT Work Phone: [facility] 09-04-2024 08:41-0500 Diastolic blood pressure 84 mm[Hg] Jere Rust OIL TREATER.TECHNICAL SUPPORT CONSULTANT Work Phone: [facility] 09-04-2024 08:41-0500 Heart rate 76 /min Jere Rust OIL TREATER.TECHNICAL SUPPORT CONSULTANT Work Phone: [facility] 09-04-2024 08:41-0500 SaO2% (BldA) [Mass fraction] 98 % Jere Rust OIL TREATER.TECHNICAL SUPPORT CONSULTANT Work Phone: [facility] 09-04-2024 08:41-0500 Systolic blood pressure 150 mm[Hg] Jere Rust OIL TREATER.TECHNICAL SUPPORT CONSULTANT Work Phone: [facility] 07-19-2024 11:20-0400 Diastolic blood pressure 85 mm[Hg] Debo Rodriguez MD Work Phone: [facility] 07-19-2024 11:20-0400 Respiratory rate 18 /min Debo Rodriguez MD Work Phone: [facility] 07-19-2024 11:20-0400 SaO2% (BldA) [Mass fraction] 100 % Debo Rodriguez MD Work Phone: [facility] 07-19-2024 11:20-0400 Systolic blood pressure 177 mm[Hg] Debo Rodriguez MD Work Phone: [facility] 07-19-2024 11:00-0400 Heart rate 64 /min Debo Rodriguez MD Work Phone: [facility] 07-19-2024 10:49-0400 Body temperature 98.1 [degF] Debo Rodriguez MD Work Phone: [facility] 07-19-2024 09:58-0400 Body height 180.3 cm Debo Rodriguez MD Work Phone: [facility] 07-19-2024 09:58-0400 Body mass index (BMI) [Ratio] 31.52 kg/m2 Debo Rodriguez MD Work Phone: [facility] 07-19-2024 09:58-0400 Body weight 102.51 kg Debo Rodriguez MD Work Phone: [facility] 07-12-2024 13:26-0400 Body mass index (BMI) [Ratio] 31.55 kg/m2 Gerri Curry OIL TREATER.TECHNICAL SUPPORT CONSULTANT Work Phone: [facility] 07-12-2024 13:26-0400 Body weight 102.6 kg Gerri Curry OIL TREATER.TECHNICAL SUPPORT CONSULTANT Work Phone: [facility] 07-12-2024 13:26-0400 Diastolic blood pressure 76 mm[Hg] Gerri Beltranhof OIL TREATER.TECHNICAL SUPPORT CONSULTANT Work Phone: [facility] 07-12-2024 13:26-0400 Heart rate 77 /min Gerri Beltranhof OIL TREATER.TECHNICAL SUPPORT CONSULTANT Work Phone: [facility] 07-12-2024 13:26-0400 Respiratory rate 16 /min Gerri Beltranhof OIL TREATER.TECHNICAL SUPPORT CONSULTANT Work Phone: [facility] 07-12-2024 13:26-0400 SaO2% (BldA) [Mass fraction] 96 % Gerri Beltranhof OIL TREATER.TECHNICAL SUPPORT CONSULTANT Work Phone: [facility] 07-12-2024 13:26-0400 Systolic blood pressure 123 mm[Hg] Gerri Beltranhof OIL TREATER.TECHNICAL SUPPORT CONSULTANT Work Phone: [facility] 06-23-2024 10:55-0400 Body mass index (BMI) [Ratio] 31.12 kg/m2 Robson Robertson OIL TREATER.TECHNICAL SUPPORT CONSULTANT Work Phone: [facility] 06-23-2024 10:55-0400 Body weight 101.2 kg Robson Robertson OIL TREATER.TECHNICAL SUPPORT CONSULTANT Work Phone: [facility] 06-23-2024 10:55-0400 Diastolic blood pressure 82 mm[Hg] Robson Marcelo OIL TREATER.TECHNICAL SUPPORT CONSULTANT Work Phone: [facility] 06-23-2024 10:55-0400 Heart rate 79 /min Robson Marcelo OIL TREATER.TECHNICAL SUPPORT CONSULTANT Work Phone: [facility] 06-23-2024 10:55-0400 Respiratory rate 16 /min Robson Marcelo OIL TREATER.TECHNICAL SUPPORT CONSULTANT Work Phone: [facility] 06-23-2024 10:55-0400 SaO2% (BldA) [Mass fraction] 96 % Robson Robertson OIL TREATER.TECHNICAL SUPPORT CONSULTANT Work Phone: [facility] 06-23-2024 10:55-0400 Systolic blood pressure 130 mm[Hg] Robson Robertson OIL TREATER.TECHNICAL SUPPORT CONSULTANT Work Phone: [facility] 06-12-2024 17:18-0400 Diastolic blood pressure 80 mm[Hg] Olu Almendarez MD Work Phone: [facility] 06-12-2024 17:18-0400 Systolic blood pressure 132 mm[Hg] Olu Almendarez MD Work Phone: [facility] 06-12-2024 17:04-0400 Body mass index (BMI) [Ratio] 31.09 kg/m2 Olu Almendarez MD Work Phone: [facility] 06-12-2024 17:04-0400 Body temperature 97.59 [degF] Olu Almendarez MD Work Phone: [facility] 06-12-2024 17:04-0400 Body weight 101.1 kg Olu Almendarez MD Work Phone: [facility] 06-12-2024 17:04-0400 Heart rate 73 /min Olu Almendarez MD Work Phone: [facility] 06-12-2024 17:04-0400 SaO2% (BldA) [Mass fraction] 99 % Olu Almendarez MD Work Phone: [facility] 05-19-2024 15:19-0400 Diastolic blood pressure 78 mm[Hg] Robson Robertson OIL TREATER.TECHNICAL SUPPORT CONSULTANT Work Phone: [facility] 05-19-2024 15:19-0400 Systolic blood pressure 122 mm[Hg] Robson Robertson OIL TREATER.TECHNICAL SUPPORT CONSULTANT Work Phone: [facility] 05-19-2024 15:04-0400 Body mass index (BMI) [Ratio] 31.42 kg/m2 Robson Robertson OIL TREATER.TECHNICAL SUPPORT CONSULTANT Work Phone: [facility] 05-19-2024 15:04-0400 Body temperature 98.4 [degF] Robson Robertson OIL TREATER.TECHNICAL SUPPORT CONSULTANT Work Phone: [facility] 05-19-2024 15:04-0400 Body weight 102.2 kg Robson Marcelo OIL TREATER.TECHNICAL SUPPORT CONSULTANT Work Phone: [facility] 05-19-2024 15:04-0400 Heart rate 84 /min Robson Marcelo OIL TREATER.TECHNICAL SUPPORT CONSULTANT Work Phone: [facility] 05-19-2024 15:04-0400 Respiratory rate 16 /min Robson Marcelo OIL TREATER.TECHNICAL SUPPORT CONSULTANT Work Phone: [facility] 05-19-2024 15:04-0400 SaO2% (BldA) [Mass fraction] 98 % Robson Marcelo OIL TREATER.TECHNICAL SUPPORT CONSULTANT Work Phone: [facility] 04-26-2024 10:37-0400 Body mass index (BMI) [Ratio] 30.87 kg/m2 Charley Webb OIL TREATER.TECHNICAL SUPPORT CONSULTANT Work Phone: [facility] 04-26-2024 10:37-0400 Body temperature 98.29 [degF] Charley Webb OIL TREATER.TECHNICAL SUPPORT CONSULTANT Work Phone: [facility] 04-26-2024 10:37-0400 Body weight 100.4 kg Charley Webb OIL TREATER.TECHNICAL SUPPORT CONSULTANT Work Phone: [facility] 04-26-2024 10:37-0400 Diastolic blood pressure 103 mm[Hg] Charley Webb OIL TREATER.TECHNICAL SUPPORT CONSULTANT Work Phone: [facility] 04-26-2024 10:37-0400 Heart rate 78 /min Charley Webb OIL TREATER.TECHNICAL SUPPORT CONSULTANT Work Phone: [facility] 04-26-2024 10:37-0400 Respiratory rate 18 /min Charley Webb OIL TREATER.TECHNICAL SUPPORT CONSULTANT Work Phone: [facility] 04-26-2024 10:37-0400 SaO2% (BldA) [Mass fraction] 100 % Charley Webb OIL TREATER.TECHNICAL SUPPORT CONSULTANT Work Phone: [facility] 04-26-2024 10:37-0400 Systolic blood pressure 169 mm[Hg] Charley Webb OIL TREATER.TECHNICAL SUPPORT CONSULTANT Work Phone: [place] [address]-20-2024 15:40-0400 Body height 182.9 cm Sam Fernando MD Work Phone: [facility] 02-21-2024 15:40-0400 Body mass index (BMI) [Ratio] 29.82 kg/m2 Sam Fernando MD Work Phone: [facility] 02-21-2024 15:40-0400 Body temperature 98.71 [degF] Sam Fernando MD Work Phone: [facility] 02-21-2024 15:40-0400 Body weight 99.75 kg Sam Fernando MD Work Phone: [facility] 01-24-2024 14:52-0400 Body height 180.3 cm Jere Rust APRN.TECHNICAL SUPPORT CONSULTANT Work Phone: [facility] 01-24-2024 14:52-0400 Body mass index (BMI) [Ratio] 30.4 kg/m2 Jere Rust APRN.TECHNICAL SUPPORT CONSULTANT Work Phone: [facility] 01-24-2024 14:52-0400 Body weight 98.88 kg Jere Rust APRN.TECHNICAL SUPPORT CONSULTANT Work Phone: [facility] 01-24-2024 14:52-0400 Diastolic blood pressure 82 mm[Hg] Jere Rust APRN.TECHNICAL SUPPORT CONSULTANT Work Phone: [facility] 01-24-2024 14:52-0400 Heart rate 82 /min Jere Rust APRN.TECHNICAL SUPPORT CONSULTANT Work Phone: [facility] 01-24-2024 14:52-0400 SaO2% (BldA) [Mass fraction] 99 % Jere Rust APRN.TECHNICAL SUPPORT CONSULTANT Work Phone: [facility] 01-24-2024 14:52-0400 Systolic blood pressure 138 mm[Hg] Jere Rust APRN.TECHNICAL SUPPORT CONSULTANT Work Phone: [facility] 01-10-2024 11:02-0400 Diastolic blood pressure 80 mm[Hg] Robson Marcelo OIL TREATER.TECHNICAL SUPPORT CONSULTANT Work Phone: [facility] 01-10-2024 11:02-0400 Systolic blood pressure 130 mm[Hg] Robson Marcelo OIL TREATER.TECHNICAL SUPPORT CONSULTANT Work Phone: [facility] 01-10-2024 10:50-0400 Body weight 100.15 kg Robson Robertson OIL TREATER.TECHNICAL SUPPORT CONSULTANT Work Phone: [facility] 01-10-2024 10:50-0400 Heart rate 80 /min Robson Marcelo OIL TREATER.TECHNICAL SUPPORT CONSULTANT Work Phone: [facility] 01-10-2024 10:50-0400 Respiratory rate 16 /min Robson Marcelo OIL TREATER.TECHNICAL SUPPORT CONSULTANT Work Phone: [facility] 01-10-2024 10:50-0400 SaO2% (BldA) [Mass fraction] 100 % Robson Robertson OIL TREATER.TECHNICAL SUPPORT CONSULTANT Work Phone: [facility] 11-25-2023 10:32-0500 Body height 180.3 cm Juan A Pacheco DO Work Phone: [facility] 11-25-2023 10:32-0500 Body weight 98.3 kg Juan A Pacheco DO Work Phone: [facility] 11-25-2023 10:32-0500 Diastolic blood pressure 78 mm[Hg] Juan A Pacheco DO Work Phone: [facility] 11-25-2023 10:32-0500 Heart rate 74 /min Juan A Pacheco DO Work Phone: [facility] 11-25-2023 10:32-0500 SaO2% (BldA) [Mass fraction] 99 % Juan A Pacheco DO Work Phone: [facility] 11-25-2023 10:32-0500 Systolic blood pressure 126 mm[Hg] Juan A Junior DO Work Phone: [facility] 11-23-2023 14:54-0500 Body temperature 98.01 [degF] Ángela Rasmussen MD Work Phone: [facility] 11-23-2023 14:54-0500 Diastolic blood pressure 77 mm[Hg] Ángela Rasmussen MD Work Phone: [facility] 11-23-2023 14:54-0500 Heart rate 78 /min Ángela Rasmussen MD Work Phone: [facility] 11-23-2023 14:54-0500 SaO2% (BldA) [Mass fraction] 98 % Ángela Rasmussen MD Work Phone: [facility] 11-23-2023 14:54-0500 Systolic blood pressure 123 mm[Hg] Ángela Rasmussen MD Work Phone: [facility] 11-16-2023 14:48-0500 Body temperature 97.11 [degF] Ángela Rasmussen MD Work Phone: [facility] 11-16-2023 14:48-0500 Diastolic blood pressure 92 mm[Hg] Ángela Rasmussen MD Work Phone: [facility] 11-16-2023 14:48-0500 Heart rate 81 /min Ángela Rasmussen MD Work Phone: [facility] 11-16-2023 14:48-0500 SaO2% (BldA) [Mass fraction] 99 % Ángela Rasmussen MD Work Phone: [facility] 11-16-2023 14:48-0500 Systolic blood pressure 152 mm[Hg] Ángela Rasmussen MD Work Phone: [facility] 11-10-2023 14:56-0500 Diastolic blood pressure 95 mm[Hg] Ángela Rasmussen MD Work Phone: [facility] 11-10-2023 14:56-0500 Heart rate 82 /min Ángela Rasmussen MD Work Phone: [facility] 11-10-2023 14:56-0500 Systolic blood pressure 165 mm[Hg] Ángela Rasmussen MD Work Phone: [facility] 11-10-2023 14:51-0500 Body temperature 97.5 [degF] Ángela Rasmussen MD Work Phone: [facility] 11-10-2023 14:51-0500 Respiratory rate 15 /min Ángela Rasmussen MD Work Phone: [facility] 11-10-2023 14:51-0500 SaO2% (BldA) [Mass fraction] 100 % Ángela Rasmussen MD Work Phone: [facility] 09-24-2023 13:30-0500 Body height 182.[address] Cali Cordero Work Phone: [facility] 09-24-2023 13:30-0500 Body temperature 96.6 [degF] Dr. Cali Cordero Work Phone: [facility] 09-24-2023 13:30-0500 Diastolic blood pressure 99 mm[Hg] Dr. Cali Cordero Work Phone: [facility] 09-24-2023 13:30-0500 Heart rate 71 /min Dr. Cali Cordero Work Phone: [facility] 09-24-2023 13:30-0500 Respiratory rate 20 /min Dr. Cali Cordero Work Phone: [facility] 09-24-2023 13:30-0500 SaO2% (BldA) [Mass fraction] 99 % Dr. Cali Cordero Work Phone: [facility] 09-24-2023 13:30-0500 Systolic blood pressure 173 mm[Hg] Dr. Cali Cordero Work Phone: [facility] 09-03-2023 12:43-0500 Body weight 101.24 kg Nery Podlogar OIL TREATER.TECHNICAL SUPPORT CONSULTANT Work Phone: [facility] 09-03-2023 12:43-0500 Diastolic blood pressure 82 mm[Hg] Nery Podlogar OIL TREATER.TECHNICAL SUPPORT CONSULTANT Work Phone: [facility] 09-03-2023 12:43-0500 Heart rate 92 /min Nery Podlogar OIL TREATER.TECHNICAL SUPPORT CONSULTANT Work Phone: [facility] 09-03-2023 12:43-0500 Respiratory rate 18 /min Nery Podlogar OIL TREATER.TECHNICAL SUPPORT CONSULTANT Work Phone: [facility] 09-03-2023 12:43-0500 SaO2% (BldA) [Mass fraction] 96 % Nery Podlogar OIL TREATER.TECHNICAL SUPPORT CONSULTANT Work Phone: [facility] 09-03-2023 12:43-0500 Systolic blood pressure 146 mm[Hg] Nery Podlogar OIL TREATER.TECHNICAL SUPPORT CONSULTANT Work Phone: [facility] 09-02-2023 13:30-0500 Diastolic blood pressure 81 mm[Hg] Ángela Rasmussen MD, MD Work Phone: [facility] 09-02-2023 13:30-0500 Heart rate 87 /min Ángela Rasmussen MD, MD Work Phone: [facility] 09-02-2023 13:30-0500 Systolic blood pressure 124 mm[Hg] Ángela Rasmussen MD, MD Work Phone: [facility] 09-02-2023 13:29-0500 Body temperature 97.81 [degF] Ángela Rasmussen MD, MD Work Phone: [facility] 09-02-2023 13:29-0500 Body weight 101.38 kg Ángela Rasmussen MD, MD Work Phone: [facility] 09-02-2023 13:29-0500 Respiratory rate 15 /min Ángela Rasmussen MD, MD Work Phone: [facility] 09-02-2023 13:29-0500 SaO2% (BldA) [Mass fraction] 98 % Ángela Rasmussen MD, MD Work Phone: [facility] 08-03-2023 13:47-0400 Body height 182.9 cm Sam Fernando MD Work Phone: [facility] 08-03-2023 13:47-0400 Body mass index (BMI) [Ratio] 32.12 kg/m2 Sam Fernando MD Work Phone: [facility] 08-03-2023 13:47-0400 Body temperature 98.71 [degF] Sam Fernando MD Work Phone: [facility] 08-03-2023 13:47-0400 Body weight 107.41 kg Sam Fernando MD Work Phone: [facility] 07-30-2023 10:38-0400 Body height 182.9 cm Jania Pozo MD Work Phone: [facility] 07-30-2023 10:38-0400 Body weight 102.06 kg Jania Pozo MD Work Phone: [facility] 07-30-2023 10:38-0400 Diastolic blood pressure 82 mm[Hg] Jania Pozo MD Work Phone: [facility] 07-30-2023 10:38-0400 Systolic blood pressure 138 mm[Hg] Jania Pozo MD Work Phone: [facility] 07-13-2023 14:45-0400 Body height 182.9 cm Sam Fernando MD Work Phone: [facility] 07-13-2023 14:45-0400 Body mass index (BMI) [Ratio] 32.14 kg/m2 Sam Fernando MD Work Phone: [facility] 07-13-2023 14:45-0400 Body temperature 99.1 [degF] Sam Fernando MD Work Phone: [facility] 07-13-2023 14:45-0400 Body weight 107.5 kg Sam Fernando MD Work Phone: [facility] 05-25-2023 11:38-0400 Body height 182.9 cm Jania Pozo MD Work Phone: [facility] 05-25-2023 11:38-0400 Body weight 106.59 kg Jania Pozo MD Work Phone: [facility] 05-25-2023 11:38-0400 Diastolic blood pressure 82 mm[Hg] Jania Pozo MD Work Phone: [facility] 05-25-2023 11:38-0400 Systolic blood pressure 132 mm[Hg] Jania Pozo MD Work Phone: [facility] 05-13-2023 11:30-0400 Body height 182.[address] Cali Cordero Work Phone: [facility] 05-13-2023 11:30-0400 Body temperature 97.3 [degF] Dr. Cali Cordero Work Phone: [facility] 05-13-2023 11:30-0400 Diastolic blood pressure 88 mm[Hg] Dr. Cali Cordero Work Phone: 3(352)939-836441 [address] 05-13-2023 11:30-0400 Heart rate 91 /min Dr. Cali Cordero Work Phone: 4(589)982-849141 [address] 05-13-2023 11:30-0400 Respiratory rate 20 /min Dr. Cali Cordero Work Phone: 8(170)231-221064 [place] [address] 05-13-2023 11:30-0400 SaO2% (BldA) [Mass fraction] 97 % Dr. Cali Cordero Work Phone: [facility] 05-13-2023 11:30-0400 Systolic blood pressure 152 mm[Hg] Dr. Cali Cordero Work Phone: [facility] 04-09-2023 14:27-0400 Body temperature 97.4 [degF] Dr. Cali Cordero Work Phone: [facility] 04-09-2023 14:27-0400 Diastolic blood pressure 90 mm[Hg] Dr. Cali Cordero Work Phone: [facility] 04-09-2023 14:27-0400 Heart rate 77 /min Dr. Cali Cordero Work Phone: [facility] 04-09-2023 14:27-0400 Respiratory rate 18 /min Dr. Cali Cordero Work Phone: [facility] 04-09-2023 14:27-0400 SaO2% (BldA) [Mass fraction] 93 % Dr. Cali Cordero Work Phone: 7(489)364-561588 [place] [address] 04-09-2023 14:27-0400 Systolic blood pressure 160 mm[Hg] Dr. Cali Cordero Work Phone: 6(474)217-120388 [place] [address] 03-25-2023 08:06-0400 Body mass index (BMI) [Ratio] 31.1 kg/m2 Dr. Cali Cordero Work Phone: 0(866)614-969488 [place] [address] 03-25-2023 08:06-0400 Body temperature 98.7 [degF] Dr. Cali Cordero Work Phone: 0(811)016-870288 [place] [address] 03-25-2023 08:06-0400 Body weight 104.[address] Cali Cordero Work Phone: 1(370)495-567388 [place] [address] 03-25-2023 08:06-0400 Diastolic blood pressure 89 mm[Hg] Dr. Cali Cordero Work Phone: 0(106)382-424688 [place] [address] 03-25-2023 08:06-0400 Heart rate 77 /min Dr. Cali Cordero Work Phone: 8(387)587-918888 [place] [address] 03-25-2023 08:06-0400 Respiratory rate 18 /min Dr. Cali Cordero Work Phone: 4(782)582-408588 [place] [address] 03-25-2023 08:06-0400 SaO2% (BldA) [Mass fraction] 97 % Dr. Cali Cordero Work Phone: 5(032)003-602788 [place] [address] 03-25-2023 08:06-0400 Systolic blood pressure 166 mm[Hg] Dr. Cali Cordero Work Phone: [facility] 03-05-2023 14:11-0400 Body weight 107.05 kg Robson Robertson APRN.TECHNICAL SUPPORT CONSULTANT Work Phone: [facility] 03-05-2023 14:11-0400 Diastolic blood pressure 80 mm[Hg] Robson Robertson APRN.TECHNICAL SUPPORT CONSULTANT Work Phone: [facility] 03-05-2023 [id number] Heart rate 80 /min Robson Marcelo OIL TREATER.TECHNICAL SUPPORT CONSULTANT Work Phone: [facility] 03-05-2023 14:11-0400 Respiratory rate 14 /min Robson Robertson OIL TREATER.TECHNICAL SUPPORT CONSULTANT Work Phone: [facility] 03-05-2023 14:11-0400 Systolic blood pressure 140 mm[Hg] Robson Marcelo OIL TREATER.TECHNICAL SUPPORT CONSULTANT Work Phone: [facility] 01-12-2023 [id number] Body height 182.9 cm Jere Rust OIL TREATER.TECHNICAL SUPPORT CONSULTANT Work Phone: [facility] 01-12-2023 14:28-040 Body weight 105.55 kg Jere Rust OIL TREATER.TECHNICAL SUPPORT CONSULTANT Work Phone: [facility] 01-12-2023 14:28-0400 Diastolic blood pressure 68 mm[Hg] Jere Rust OIL TREATER.TECHNICAL SUPPORT CONSULTANT Work Phone: [facility] 01-12-2023 14:28-0400 Heart rate 78 /min Jere Rust OIL TREATER.TECHNICAL SUPPORT CONSULTANT Work Phone: [facility] 01-12-2023 14:28-0400 SaO2% (BldA) [Mass fraction] 97 % Jere Rust OIL TREATER.TECHNICAL SUPPORT CONSULTANT Work Phone: [facility] 01-12-2023 14:28-0400 Systolic blood pressure 118 mm[Hg] Jere Rust OIL TREATER.TECHNICAL SUPPORT CONSULTANT Work Phone: [facility] 12-11-2022 14:33-0500 Diastolic blood pressure 88 mm[Hg] Robson Marcelo OIL TREATER.TECHNICAL SUPPORT CONSULTANT Work Phone: [facility] 12-11-2022 14:33-0500 Systolic blood pressure 136 mm[Hg] Robson Marcelo OIL TREATER.TECHNICAL SUPPORT CONSULTANT Work Phone: [facility] 12-11-2022 14:09-0500 Body temperature 97.2 [degF] Robson Marcelo OIL TREATER.TECHNICAL SUPPORT CONSULTANT Work Phone: [facility] 12-11-2022 14:09-0500 Body weight 102.06 kg Robson Robertson APRN.TECHNICAL SUPPORT CONSULTANT Work Phone: [facility] 12-11-2022 14:09-0500 Heart rate 76 /min Robson Robertson OIL TREATER.TECHNICAL SUPPORT CONSULTANT Work Phone: [facility] 12-11-2022 14:09-0500 Respiratory rate 16 /min Robson Robertson OIL TREATER.TECHNICAL SUPPORT CONSULTANT Work Phone: [facility] 12-11-2022 14:09-0500 SaO2% (BldA) [Mass fraction] 99 % Robson Robertson APRN.TECHNICAL SUPPORT CONSULTANT Work Phone: [facility] 11-16-2022 13:03-0500 Body height 182.9 cm Vern Mills APRN.TECHNICAL SUPPORT CONSULTANT Work Phone: [facility] 11-16-2022 13:03-0500 Body weight 99.79 kg Vern Mills APRN.TECHNICAL SUPPORT CONSULTANT Work Phone: [facility] 11-16-2022 13:03-0500 Diastolic blood pressure 70 mm[Hg] Vern Mills APRN.TECHNICAL SUPPORT CONSULTANT Work Phone: [facility] 11-16-2022 13:03-0500 Heart rate 74 /min Vern iMlls APRN.TECHNICAL SUPPORT CONSULTANT Work Phone: [facility] 11-16-2022 13:03-0500 SaO2% (BldA) [Mass fraction] 96 % Vern Mills APRN.TECHNICAL SUPPORT CONSULTANT Work Phone: [facility] 11-16-2022 13:03-0500 Systolic blood pressure 118 mm[Hg] Vern Mills APRN.TECHNICAL SUPPORT CONSULTANT Work Phone: [facility] 11-03-2022 13:00-0500 Body height 182.9 cm Wai Adair APRN.TECHNICAL SUPPORT CONSULTANT Work Phone: [facility] 11-03-2022 13:00-0500 Body weight 100.88 kg Wai Adair APRN.TECHNICAL SUPPORT CONSULTANT Work Phone: [facility] 11-03-2022 13:00-0500 Diastolic blood pressure 74 mm[Hg] Wai Adair OIL TREATER.TECHNICAL SUPPORT CONSULTANT Work Phone: [facility] 11-03-2022 13:00-0500 Heart rate 74 /min Wai Adair OIL TREATER.TECHNICAL SUPPORT CONSULTANT Work Phone: [facility] 11-03-2022 13:00-0500 Respiratory rate 16 /min Wai Adair OIL TREATER.TECHNICAL SUPPORT CONSULTANT Work Phone: [facility] 11-03-2022 13:00-0500 Systolic blood pressure 136 mm[Hg] Wai Adair OIL TREATER.TECHNICAL SUPPORT CONSULTANT Work Phone: [facility] 10-16-2022 17:01-0500 SaO2% (BldA) [Mass fraction] 97 % CALI [facility] Comment on above: Order Comment: Specimen Type: URINE SPEC IMEN Ordering Facility: [facility] Address: [address] [place], [place] [id number] Performed By: #### 2 [id number] #### [facility] CLIA [id number] [address] [place] [address] [place] 10-08-2022 11:13-0500 Body height 182.[address] Jess Curry Work Phone: [facility] 10-08-2022 11:13-0500 Body mass index (BMI) [Ratio] 30.7 kg/m2 Dr. Jess Curry Work Phone: [facility] 10-08-2022 11:13-0500 Body temperature 97.8 [degF] Dr. Jess Curry Work Phone: [facility] 10-08-2022 11:13-0500 Body weight 102.[address] Jess Curry Work Phone: [facility] 10-08-2022 11:13-0500 Diastolic blood pressure 94 mm[Hg] Dr. Jess Curry Work Phone: [facility] 10-08-2022 11:13-0500 Heart rate 64 /min Dr. Jess Curry Work Phone: [facility] 10-08-2022 11:13-0500 Respiratory rate 20 /min Dr. Jess Curry Work Phone: [facility] 10-08-2022 11:13-0500 SaO2% (BldA) [Mass fraction] 99 % Dr. Jess Curry Work Phone: [facility] 10-08-2022 11:13-0500 Systolic blood pressure 173 mm[Hg] Dr. Jess Curry Work Phone: [facility] 10-02-2022 14:52-0500 Body height 182.9 cm Shanelle Miglionico OIL TREATER.TECHNICAL SUPPORT CONSULTANT Work Phone: [facility] 10-02-2022 14:52-0500 Body weight 103.06 kg Shanelle Miglionico OIL TREATER.TECHNICAL SUPPORT CONSULTANT Work Phone: [facility] 10-02-2022 14:52-0500 Diastolic blood pressure 80 mm[Hg] Shanelle Miglionico OIL TREATER.TECHNICAL SUPPORT CONSULTANT Work Phone: [facility] 10-02-2022 14:52-0500 Heart rate 72 /min Shanelle Miglionico OIL TREATER.TECHNICAL SUPPORT CONSULTANT Work Phone: [facility] 10-02-2022 14:52-0500 Respiratory rate 16 /min Shanelle Miglionico OIL TREATER.TECHNICAL SUPPORT CONSULTANT Work Phone: [facility] 10-02-2022 14:52-0500 SaO2% (BldA) [Mass fraction] 98 % Shanelle Miglionico OIL TREATER.TECHNICAL SUPPORT CONSULTANT Work Phone: [facility] 10-02-2022 14:52-0500 Systolic blood pressure 140 mm[Hg] Shanelle Miglionico OIL TREATER.TECHNICAL SUPPORT CONSULTANT Work Phone: [facility] 08-25-2022 15:19-0500 Body temperature 97.4 [degF] Dr. Jess Curry Work Phone: [facility] 08-25-2022 15:19-0500 Diastolic blood pressure 84 mm[Hg] Dr. Jess Curry Work Phone: [facility] 08-25-2022 15:19-0500 Heart rate 72 /min Dr. Jess Curry Work Phone: [facility] 08-25-2022 15:19-0500 Respiratory rate 18 /min Dr. Jess Curry Work Phone: [facility] 08-25-2022 15:19-0500 SaO2% (BldA) [Mass fraction] 96 % Dr. Jess Curry Work Phone: [facility] 08-25-2022 15:19-0500 Systolic blood pressure 149 mm[Hg] Dr. Jess Curry Work Phone: [facility] 08-05-2022 09:49-0400 Body height 182.9 cm Tobinyram Tomasz DO Work Phone: [facility] 08-05-2022 09:49-0400 Body weight 102.51 kg Jayram Tomasz DO Work Phone: [facility] 08-05-2022 09:49-0400 Respiratory rate 20 /min Tobinramyaam Tomasz DO Work Phone: [facility] 07-14-2022 15:58-0400 Body height 182.9 cm Cali Costa PA-C Work Phone: [facility] 07-14-2022 15:58-0400 Body temperature 98.4 [degF] Cali Costa PA-C Work Phone: [facility] 07-14-2022 15:58-0400 Body weight 102.51 kg Cali Costa PA-C Work Phone: [facility] 07-14-2022 15:58-0400 Diastolic blood pressure 90 mm[Hg] Cali Costa PA-C Work Phone: [facility] 07-14-2022 15:58-0400 Heart rate 74 /min Cali Costa PA-C Work Phone: [facility] 07-14-2022 15:58-0400 Respiratory rate 16 /min Cali Costa PA-C Work Phone: [facility] 07-14-2022 15:58-0400 SaO2% (BldA) [Mass fraction] 99 % Cali Costa PA-C Work Phone: [facility] 07-14-2022 15:58-0400 Systolic blood pressure 128 mm[Hg] Cali Costa PA-C Work Phone: [facility] 07-14-2022 09:21-0400 Body height 182.9 cm Jayram Tomasz DO Work Phone: [facility] 07-14-2022 09:21-0400 Body weight 102.97 kg Jayram Tomasz DO Work Phone: [facility] 07-14-2022 09:21-0400 Diastolic blood pressure 90 mm[Hg] Jayram Tomasz DO Work Phone: [facility] 07-14-2022 09:21-0400 Systolic blood pressure 156 mm[Hg] Jayram Tomasz DO Work Phone: [facility] 07-13-2022 10:47-0400 Body height 182.9 cm Brian Colmenares MD Work Phone: [facility] 07-13-2022 10:47-0400 Body weight 103.15 kg Brian Colmenares MD Work Phone: [facility] 07-13-2022 10:47-0400 Diastolic blood pressure 90 mm[Hg] Brian Colmenares MD Work Phone: [facility] 07-13-2022 10:47-0400 Heart rate 64 /min Brian Colmenares MD Work Phone: [facility] 07-13-2022 10:47-0400 SaO2% (BldA) [Mass fraction] 95 % Brian Colmenares MD Work Phone: [facility] 07-13-2022 10:47-0400 Systolic blood pressure 156 mm[Hg] Brian Colmenares MD Work Phone: [facility] 06-17-2022 13:43-0400 Body height 182.9 cm Brian Colmenares MD Work Phone: [facility] 06-17-2022 13:43-0400 Body weight 104.96 kg Brian Colmenares MD Work Phone: [facility] 06-17-2022 13:43-0400 Diastolic blood pressure 100 mm[Hg] Brian Colmenares MD Work Phone: [facility] 06-17-2022 13:43-0400 Heart rate 69 /min Brian Colmenares MD Work Phone: [facility] 06-17-2022 13:43-0400 SaO2% (BldA) [Mass fraction] 98 % Brian Colmenares MD Work Phone: [facility] 06-17-2022 13:43-0400 Systolic blood pressure 150 mm[Hg] Brian Colmenares MD Work Phone: [facility] 06-10-2022 13:00-0400 Diastolic blood pressure 80 mm[Hg] Holli Jaquez MD Work Phone: [facility] 06-10-2022 13:00-0400 Heart rate 61 /min Holli Jaquez MD Work Phone: [facility] 06-10-2022 13:00-0400 Respiratory rate 18 /min Holli Jaquez MD Work Phone: [facility] 06-10-2022 13:00-0400 SaO2% (BldA) [Mass fraction] 96 % Holli Jaquez MD Work Phone: [facility] 06-10-2022 13:00-0400 Systolic blood pressure 157 mm[Hg] Holli Jaquez MD Work Phone: [facility] 06-10-2022 07:51-0400 Body height 182.9 cm Holli Jaquez MD Work Phone: [facility] 06-10-2022 07:51-0400 Body temperature 98.2 [degF] Holli Jaquez MD Work Phone: [facility] 06-10-2022 07:51-0400 Body weight 105.51 kg Holli Jaquez MD Work Phone: [facility] 03-19-2022 14:19-0400 Body height 182.9 cm Yue Martinez OIL TREATER.TECHNICAL SUPPORT CONSULTANT Work Phone: [facility] 03-19-2022 14:19-0400 Body weight 104.19 kg Yue Martinez OIL TREATER.TECHNICAL SUPPORT CONSULTANT Work Phone: [facility] 03-19-2022 14:19-0400 Diastolic blood pressure 70 mm[Hg] Yue Martinez OIL TREATER.TECHNICAL SUPPORT CONSULTANT Work Phone: [facility] 03-19-2022 14:19-0400 Heart rate 70 /min Yue Martinez OIL TREATER.TECHNICAL SUPPORT CONSULTANT Work Phone: [facility] 03-19-2022 14:19-0400 SaO2% (BldA) [Mass fraction] 96 % Yue Martinez OIL TREATER.TECHNICAL SUPPORT CONSULTANT Work Phone: [facility] 03-19-2022 14:19-0400 Systolic blood pressure 140 mm[Hg] Yue Martinez OIL TREATER.TECHNICAL SUPPORT CONSULTANT Work Phone: [facility] 03-17-2022 16:16-0400 Body height 177.8 cm Cali Costa PA-C Work Phone: [facility] 03-17-2022 16:16-0400 Body temperature 98.2 [degF] Cali Costa PA-C Work Phone: [facility] 03-17-2022 16:16-0400 Body weight 104.33 kg Cali Costa PA-C Work Phone: [facility] 03-17-2022 16:16-0400 Diastolic blood pressure 88 mm[Hg] Cali Costa PA-C Work Phone: [facility] 03-17-2022 16:16-0400 Heart rate 94 /min Cali Costa PA-C Work Phone: [facility] 03-17-2022 16:16-0400 Respiratory rate 14 /min Cali Costa PA-C Work Phone: [facility] 03-17-2022 16:16-0400 SaO2% (BldA) [Mass fraction] 98 % Cali Costa PA-C Work Phone: [facility] 03-17-2022 16:16-0400 Systolic blood pressure 152 mm[Hg] Cali Costa PA-C Work Phone: [facility] 02-09-2022 13:17-0400 Diastolic blood pressure 89 mm[Hg] Robson Marcelo OIL TREATER.TECHNICAL SUPPORT CONSULTANT Work Phone: [facility] 02-09-2022 13:17-0400 Systolic blood pressure 157 mm[Hg] Robson Marcelo OIL TREATER.TECHNICAL SUPPORT CONSULTANT Work Phone: [facility] 02-09-2022 13:14-0400 Body height 182.9 cm Robson Marcelo OIL TREATER.TECHNICAL SUPPORT CONSULTANT Work Phone: [facility] 02-09-2022 13:14-0400 Body temperature 98.71 [degF] Robson Marcelo OIL TREATER.TECHNICAL SUPPORT CONSULTANT Work Phone: [facility] 02-09-2022 13:14-0400 Body weight 104.33 kg Robson Marcelo OIL TREATER.TECHNICAL SUPPORT CONSULTANT Work Phone: [facility] 02-09-2022 13:14-0400 Heart rate 77 /min Robson Marcelo OIL TREATER.TECHNICAL SUPPORT CONSULTANT Work Phone: [facility] 02-09-2022 13:14-0400 Respiratory rate 14 /min Robson Marcelo OIL TREATER.TECHNICAL SUPPORT CONSULTANT Work Phone: [facility] Encounters Encounter Date Encounter Type Care Provider Facility Start: 08-28-2025 ambulatory Cali [facility] Facilit y:[facility] Start: 08-07-2025 End: 08-07-2025 ambulatory [facility] Facility:[facility] Start: 07-04-2025 End: 07-04-2025 ambulatory [facility] Facility:[facility] Start: 06-21-2025 ambulatory [facility] Facil ity:[facility] Start: 06-20-2025 End: 06-20-2025 ambulatory [facility] Facility:[facility] Start: 06-20-2025 End: 06-20-2025 ambulatory [facility] Facility:[facility] Start: 06-06-2025 End: 06-06-2025 ambulatory Angelita Max APRN.TECHNICAL SUPPORT CONSULTANT Work Phone: Cardiology Comment on above: Nitroglycerin Start: 06-05-2025 End: 06-05-2025 ambulatory Angelita Pascal MA [facility] Start: 06-05-2025 End: 06-05-2025 Patient encounter procedure Angelita Pascal MA [facility] Comment on above: Population Health Na vigation Outreach ([employer] 8.18.25 ) Start: 05-31-2025 End: 05-31-2025 E-mail encounter from caregiver Adriana Morocho [facility] Work Phone: [facility] Start: 05-31-2025 End: 05-31-2025 Patient encounter procedure Angelita Max APRN.TECHNICAL SUPPORT CONSULTANT Work Phone: Cardiology Comment on above: Essential (primary) hypertension; Vitamin D deficiency; Dizziness and giddiness Primary Care Pharmac ist Visit Start: 05-31-2025 End: 05-31-2025 ambulatory [facility] Facility:[facility] Start: 05-28-2025 ambulatory JANIA Sheppard ity:[id number] Start: 05-24-2025 End: 05-24-2025 ambulatory Cali Cordero MD Work Phone: [facility] Start: 05-24-2025 End: 05-24-2025 Patient encounter procedure Cali Cordero MD Work Phone: [facility] Comment on above: Population Health [facility] ([facility] ) Start: 05-24-2025 End: 05-24-2025 Telephone encounter Adriana Morocho [facility] Work Phone: [facility] Comment on above: Missed Appointment ( Pharmacist Visit Rescheduling) Start: 05-14-2025 End: 05-14-2025 ambulatory CALI [place] Facility:[facility] Start: 05-14-2025 End: 05-14-2025 Office outpatient visit 25 minutes Melva Lozada APRN.[facility] Work Phone: [facility] [place] Comment on above: Type 2 diabetes sylvia itus without complication, without long- term current use of insulin (HCC) (Primary Dx); Essential hypertension; Medication nonadherence due to intolerance; Abdominal distension; Screening for depression; Wheezing; Encounter for screening examination for other mental health and behavioral disorders Start: 05-14-2025 End: 05-14-2025 ambulatory CALI Valverde [facility] Facility:[facility] Start: 05-08-2025 End: 05-08-[address] Cali Cordero MD Work Phone: -Pulmonary Services/Neurology Start: 05-08-2025 End: 05-08-2025 Patient encounter procedure PRERNA Collier -Pulmonary Services/Neurology Work Phone: Start: 05-08-2025 End: 05-08-2025 [facility] Start: 05-02-2025 End: 05-02-2025 ambulatory Esther Yeyo [facility] Work Phone: [facility] Comment on above: Allied Health Visit (Medication Adherence) Start: 05-01-2025 End: 05-01-2025 Patient encounter procedure PRERNA Collier -[facility] Work Phone: Start: 05-01-2025 End: 05-18-[address] Cali Cordero MD Work Phone: -[facility] Comment on above: Allied Health Visit (Medication Adherence Outreach ) Start: 04-24-2025 End: 04-24-2025 ambulatory Cali Cordero MD Work Phone: [facility] Comment on above: Allied Health Visit (Medication Adherence Outreach ) Start: 04-17-2025 End: 04-17-2025 ambulatory Cali Cordero MD Work Phone: [facility] Comment on above: Allied Health Visit (Medication Adherence Outreach ) Start: 04-04-2025 End: 04-04-2025 Patient encounter procedure [facility] Codi Amira -Laboratory Work Phone: Start: 04-04-2025 End: 04-04-2025 ambulatory Zane David [facility] Comment on above: Allied Health Visit (SUPD) Start: 04-04-2025 End: 04-04-2025 ambulatory Cali Cordero Facility:[facility] Start: 03-23-2025 End: 03-23-2025 ambulatory Cali Cordero MD Work Phone: [facility] Start: 03-23-2025 End: 03-23-2025 Patient encounter procedure [facility] above: [facility] Start: 03-22-2025 End: 03-22-2025 Refill Cali Cordero MD Work Phone: [facility] Comment on above: Refill Request Start: 03-21-2025 End: 03-21-2025 ambulatory Cali Cordero MD Work Phone: [facility] Comment on above: Allied Health Visit (Medication Adherence Outreach/) Start: 03-12-2025 End: 03-12-2025 Office outpatient visit 25 minutes Melva Lozada APRN.CNP Work Phone: [facility] Comment on above: Essential hypertensi on (Primary Dx); 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 Cali Cordero MD Work Phone: [facility] Work Phone: Start: 03-01-2025 End: 03-01-2025 Patient encounter procedure PRERNA [facility] Start: 03-01-2025 End: 03-01-2025 ambulatory Cali Cordero Facility:[facility] Start: 02-27-2025 End: 02-27-2025 Patient encounter procedure PRERNA Collier [facility] Work Phone: Start: 02-27-2025 End: 02-27-[address] Cali Cordero MD Work Phone: [facility] Work Phone: Start: 02-20-2025 End: 02-20-2025 ambulatory CALI CORDERO Facility:[facility] Start: 02-05-2025 End: 02-05-2025 ambulatory Cali Cordero MD Work Phone: [facility] Comment on above: Allied Health Visit (Medication Adherence Outreach/) Start: 01-17-2025 End: 01-17-2025 Refill Angelita Max APRN.TECHNICAL SUPPORT CONSULTANT Work Phone: Cardiology Start: 01-10-2025 End: 01-10-2025 ambulatory [facility] [place] Start: 01-10-2025 End: 01-10-2025 Patient encounter procedure [facility] [place] Comment on above: Population Health Na vigation Outreach ([employer] workbeanitha owens) Start: 01-09-2025 End: 01-09-2025 ambulatory Cali Cordero MD Work Phone: [facility] Comment on above: Allied Health Visit (Medication Adherence Outreach ) Start: 12-25-2024 End: 12-27-2024 ambulatory Jere Rust APRN.TECHNICAL SUPPORT CONSULTANT Work Phone: [place] [facility] Adult Comment on above: Checking In Start: 12-25-2024 End: 12-27-2024 E-mail encounter from caregiver Jere J Barrera BOLIVAR.TECHNICAL SUPPORT CONSULTANT Work Phone: [place] [facility] Start: 12-15-2024 End: 12-15-2024 ambulatory CALI CORDERO Facility:[facility] Start: 12-15-2024 End: 12-15-2024 Patient encounter procedure Jere Rust APRN.TECHNICAL SUPPORT CONSULTANT Work Phone: Cardiology Comment on above: Palpitations (Primar y Dx); Paroxysmal atrial fibrillation (HCC); Essential hypertension; 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); Mixed hyperlipidemia; Current use of endo tech anticoagulation; S/P CABG x 2; Tobacco use Start: 11-30-2024 End: 11-30-2024 ambulatory Cali Cordero MD Work Phone: [facility] Comment on above: Allied Health Visit (Medication Adherence Outreach/) Start: 11-27-2024 End: 11-27-2024 Patient encounter procedure Jania Pozo MD Work Phone: Urology Comment on above: History of prostate cancer (Primary Dx) Start: 11-27-2024 End: 11-27-2024 ambulatory JANIA POZO Facility:[id number] Start: 11-24-2024 End: 11-24-2024 ambulatory CALI CORDERO Facility:[facility] Start: 11-20-2024 End: 11-20-2024 Telephone encounter Jania Pozo MD Work Phone: Urology Comment on above: Orders Start: 11-17-2024 End: 11-17-2024 Orders Only Jania Pozo MD Work Phone: Urology Comment on above: History of prostate cancer (Primary Dx) Start: 11-16-2024 End: 11-16-2024 ambulatory CALI Maegan [facility] Facility:[facility] Start: 11-16-2024 End: 11-16-2024 Patient encounter procedure Meghann Strickland PA-C Work Phone: [facility] Comment on above: Flu-like symptoms (P rimary Dx); Bacterial sinusitis Start: 11-01-2024 End: 11-02-2024 Refill Juan A Pacheco DO Work Phone: Cardiology Comment on above: Refill Request Start: 10-27-2024 End: 10-27-2024 ambulatory Kate Velazquez [place] [facility] [facility] Start: 09-28-2024 End: 09-28-2024 ambulatory Kate Velazquez [place] [employer] [facility] Start: 09-21-2024 End: 09-21-2024 ambulatory Kate Velazquez [place] [employer] Facility:[facility] Start: 09-20-2024 End: 09-22-2024 Telephone encounter Gerri Curry APRN.CNP Work Phone: [facility] Comment on above: Results (US RUQ) Start: 09-19-2024 ambulatory [facility] Facil ity:[facility] Start: 09-19-2024 End: 09-19-2024 Subsequent hospital visit by physician [facility] Work Phone: Cardiology Lab Comment on above: 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) [I25.118] Start: 09-18-2024 End: 09-18-2024 Telephone encounter Siri Mccarty RN Cardiology Lab Comment on above: Reminder Call Start: 09-18-2024 End: 09-18-2024 ambulatory CALI Maegan [facility] Facility:[facility] Start: 09-18-2024 End: 09-18-2024 Subsequent hospital visit by physician [facility] Work Phone: Radiology Comment on above: Epigastric pain [R10 .13] Start: 09-07-2024 End: 09-08-2024 ambulatory Gerri Curry APRN.CNP Work Phone: [facility] [place] Comment on above: Ozempic Start: 09-07-2024 End: 09-19-2024 Telephone encounter Brian Colmenares MD Work Phone: [facility] Comment on above: Patient Question; Lorraine hurst Update (My Chart Message) Results (Lab ) Start: 09-06-2024 End: 09-06-2024 ambulatory [facility] Facility:[facility] Start: 09-06-2024 End: 09-06-2024 Patient encounter procedure Gerri Curry APRN.CNP Work Phone: [facility] Comment on above: Epigastric pain (Arti dave Dx); Gastroesophageal reflux disease with esophagitis without hemorrhage; Weight gain; Type 2 diabetes mellitus without complication, without long-term current use of insulin (HCC) Start: 09-04-2024 End: 09-04-2024 ambulatory [facility] Facility:[facility] Start: 09-04-2024 End: 09-04-2024 Patient encounter procedure Jere Rust APRN.TECHNICAL SUPPORT CONSULTANT Work Phone: Cardiology Comment on above: 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) (Primary Dx); Essential hypertension; Mixed hyperlipidemia; Current use of half-way anticoagulation; S/P CABG x 2; Paroxysmal atrial fibrillation (HCC); Tobacco use Start: 09-01-2024 End: 09-01-2024 ambulatory Kate Velazquez [place] [employer] [facility] Start: 08-15-2024 End: 08-15-2024 ambulatory [facility] Facility:[facility] Start: 07-27-2024 End: 07-27-2024 Telephone encounter Gerri Curry APRN.CNP Work Phone: [facility] [place] Comment on above: Results (AAA US) Start: 07-20-2024 End: 07-20-2024 Subsequent hospital visit by physician [facility] Work Phone: Radiology Comment on above: Abdominal aortic ane urysm (AAA) without rupture, unspecified part (HCC) [I71.40] Start: 07-19-2024 ambulatory UNKNOWN PROVIDER Facili ty:[facility] Start: 07-19-2024 End: 07-19-2024 Subsequent hospital visit by physician Debo Rodriguez MD Work Phone: [facility] Comment on above: History of colonic p olyps [Z86.0100] Start: 07-12-2024 End: 07-12-2024 Patient encounter procedure Gerri Curry APRN.TECHNICAL SUPPORT CONSULTANT Work Phone: [facility] [place] Comment on above: Hospital discharge f ollow-up (Primary Dx); Diverticulitis; Abdominal aortic aneurysm (AAA) without rupture, unspecified part (HCC) Start: 06-26-2024 End: 06-26-2024 Admission to same day surgery center Debo Rodriguez MD Work Phone: General Surgery Comment on above: History of colonic p olyps; Screening for colon cancer Start: 06-26-2024 End: 06-26-2024 Telemedicine consultation with patient Debo Rodriguez MD Work Phone: General Surgery Start: 06-23-2024 End: 06-23-2024 Office outpatient visit 25 minutes Robson Robertson APRN.TECHNICAL SUPPORT CONSULTANT Work Phone: [facility] [place] Comment on above: Type 2 diabetes sylvia itus without complication, without long- term current use of insulin (HCC) (Primary Dx); Community acquired pneumonia of right lung, unspecified part of lung; Essential hypertension; Mixed hyperlipidemia; Encounter for immunization; History of colonic polyps; Screening for colon cancer Start: 06-12-2024 End: 06-12-2024 Subsequent hospital visit by physician Baribe [facility] [place] Work Phone: Radiology Comment on above: Right wrist pain [M2 5.531] Start: 06-12-2024 End: 06-12-2024 Patient encounter procedure Olu Almendarez MD Work Phone: [facility] Comment on above: Essential hypertensi on (Primary Dx); Prostate cancer (HCC); Right wrist pain; Hematoma Start: 05-20-2024 End: 05-22-2024 Refill Jere Rust APRN.TECHNICAL SUPPORT CONSULTANT Work Phone: Cardiology Comment on above: Refill Request Start: 05-19-2024 End: 05-19-2024 Subsequent hospital visit by physician Xr [facility] [place] Work Phone: Radiology Comment on above: Community acquired p neumonia of right lung, unspecified part of lung [J18.9] Start: 05-19-2024 End: 05-19-2024 Office outpatient visit 15 minutes Robson Robertson APRN.TECHNICAL SUPPORT CONSULTANT Work Phone: [facility] Comment on above: Type 2 diabetes sylvia itus without complication, without long- term current use of insulin (HCC) (Primary Dx); Wheezing; Community acquired pneumonia of right lung, unspecified part of lung; Essential hypertension; Mixed hyperlipidemia Start: 05-19-2024 Telephone encounter Cali monreal MD Work Phone: [facility] Comment on above: Results Start: 04-26-2024 End: 04-26-2024 Subsequent hospital visit by physician Xr [facility] [place] Work Phone: Radiology Comment on above: Acute cough [R05.1] Start: 04-26-2024 End: 04-26-2024 Patient encounter procedure Charley Webb APRN.TECHNICAL SUPPORT CONSULTANT Work Phone: [facility] Comment on above: Acute cough (Primary Dx); Pneumonia due to infectious organism, unspecified laterality, unspecified part of lung Start: 03-10-2024 Refill Robson Robertson APRN.TECHNICAL SUPPORT CONSULTANT Work Phone: [facility] Comment on above: Refill Request Prevacid Start: 02-21-2024 End: 02-21-2024 ambulatory SAM FERNANDO [facility] Start: 02-21-2024 End: 02-21-2024 Office outpatient visit 10 minutes Sam Fernando MD Work Phone: [facility] Comment on above: Non-seasonal allergi c rhinitis, unspecified trigger (Primary Dx) Start: 02-14-2024 Telephone encounter Heavenly Vasquez APRN.TECHNICAL SUPPORT CONSULTANT Work Phone: Urology Comment on above: Appointment Start: 02-08-2024 End: 02-08-2024 ambulatory Josue Bedolla PT Work Phone: [facility] Comment on above: Bilateral hip pain ( Primary Dx) Start: 01-25-2024 Telephone encounter Juan A Pacheco DO Work Phone: Cardiology Comment on above: Prior Auth (Repatha) Start: 01-24-2024 End: 01-24-2024 Patient encounter procedure Jere Rust APRN.TECHNICAL SUPPORT CONSULTANT Work Phone: Cardiology Comment on above: 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 Work Phone: Radiology Comment on above: Bilateral hip pain [ M25.551, M25.552] Start: 01-10-2024 End: 01-10-2024 Office outpatient visit 15 minutes Robson Robertson APRN.TECHNICAL SUPPORT CONSULTANT Work Phone: [facility] [place] Comment on above: Bilateral hip pain ( Primary Dx); Grief reaction Start: 12-23-2023 End: 12-23-2023 Follow-up encounter Ángela Rasmussen MD Work Phone: Radiation Oncology Comment on above: Radiotherapy follow- up (Primary Dx); Prostate cancer (HCC) Start: 12-23-2023 End: 12-23-2023 Telemedicine consultation with patient Ángela Rasmussen MD Work Phone: [facility] [employer] Start: 12-22-2023 Telephone encounter Juan A Pacheco DO Work Phone: Cardiology Comment on above: Chest Pain Start: 11-29-2023 Patient encounter procedure Toribio Rasmussen MD Work Phone: 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) (Primary Dx); Palpitations; Postoperative atrial fibrillation (HCC); Essential hypertension; Mixed hyperlipidemia; S/P right coronary artery (RCA) stent placement; S/P CABG x 2 Start: 11-25-2023 End: 11-25-2023 ambulatory CALI CORDERO Facility:[facility] Start: 11-23-2023 End: 11-23-2023 Patient encounter procedure Ángela Rasmussen MD Work Phone: Radiation Oncology Comment on above: Prostate cancer (HCC ) (Primary Dx) Start: 11-16-2023 End: 11-16-2023 Patient encounter procedure Ángela Rasmussen MD Work Phone: Radiation Oncology Comment on above: Dysuria (Primary Dx) Start: 11-12-2023 ambulatory Jere Christianson OIL TREATER.TECHNICAL SUPPORT CONSULTANT Work Phone: [facility] Start: 11-12-2023 Patient encounter procedure Sa silverio Rust OIL TREATER.TECHNICAL SUPPORT CONSULTANT Work Phone: Cardiology Comment on above: Appointment Start: 11-10-2023 End: 11-10-2023 Patient encounter procedure Ángela Rasmussen MD Work Phone: Radiation Oncology Comment on above: Prostate cancer (HCC ) (Primary Dx) Start: 10-22-2023 Refill Jania rider MD Work Phone: Urology Comment on above: Refill Request Start: 10-14-2023 Non-patient / Non-visit Dr. Joellen Cordero Work Phone: [facility] Start: 10-14-2023 End: 10-14-[address] Cali Cordero Work Phone: [facility] Work Phone: Start: 10-14-2023 End: 10-14-[address] Cali Cordero Work Phone: [facility]-Cardiovasc ular Services Work Phone: Start: 09-24-2023 End: 09-24-[address] Cali Cordero Work Phone: [facility]-Pulmonary Medicine [facility] Work Phone: Start: 09-03-2023 End: 09-03-2023 Patient encounter procedure Nery Buitrago APRN.TECHNICAL SUPPORT CONSULTANT Work Phone: Family [facility] Comment on above: Grief reaction (Prim awa Dx) Start: 09-02-2023 End: 09-02-2023 Patient encounter procedure Ángela Rasmussen MD Work Phone: Radiation Oncology Comment on above: Prostate cancer (HCC ) (Primary Dx) Start: 08-03-2023 End: 08-03-2023 ambulatory [facility] Start: 08-03-2023 End: 08-03-2023 Office outpatient visit 15 minutes Sam Fernando MD Work Phone: [facility] [place] Comment on above: Chronic ethmoiditis (Primary Dx); Nasal polyp; Chronic frontal sinusitis Start: 07-30-2023 End: 07-31-2023 ambulatory Bessie Brown MA [facility] [place] Comment on above: Population Health Na vigation Outreach ([employer]) Start: 07-30-2023 End: 07-30-2023 Nursing evaluation of patient and report Nurse [employer] Work Phone: Urology Comment on above: Prostate cancer (HCC ) Start: 07-30-2023 End: 07-30-2023 Patient encounter procedure Jania Pozo MD Work Phone: Urology Comment on above: Prostate cancer (HCC ) (Primary Dx) Start: 07-27-2023 ambulatory Jania rider MD Work Phone: [place] [facility] Comment on above: Flomax Start: 07-24-2023 Refill Cali Costa PA-C Work Phone: Urology Comment on above: Refill Request Start: 07-20-2023 Telephone encounter Jania Pozo MD Work Phone: [place] [facility] Comment on above: Appointment Start: 07-19-2023 End: 07-19-[address] Cali Cordero Work Phone: [facility] Work Phone: Start: 07-19-2023 End: 07-19-[address] Cali Cordero Work Phone: [facility]-Laboratory Work Phone: Start: 07-14-2023 ambulatory Juan A Wicho Pacheco DO Work Phone: Cardiology Comment on above: Prednisone Start: 07-13-2023 End: 07-13-2023 [facility] Start: 07-13-2023 End: 07-13-2023 Office outpatient visit 25 minutes Sam Fernando MD Work Phone: [facility] [place] Comment on above: Chronic frontal sinu sitis (Primary Dx); Chronic ethmoiditis; Nasal polyp Start: 06-29-2023 End: 06-29-2023 ambulatory CALI RIVERAALTOONA Facility:[facility] Start: 06-16-2023 ambulatory CALI RIVERAALTOONA Facil ity:[facility] Start: 06-16-2023 End: 06-16-2023 Subsequent hospital visit by physician [facility] [place] Work Phone: [facility] Comment on above: Prostate cancer (HCC ) [C61] Start: 05-25-2023 End: 05-25-2023 ambulatory CALI Valverde [facility] Facility:[facility] Start: 05-25-2023 End: 05-25-2023 Patient encounter procedure Jania Pozo MD Work Phone: [place] [facility] Comment on above: Prostate cancer (HCC ) (Primary Dx); Urinary retention Start: 05-13-2023 End: 05-13-[address] [facility] Work Phone: Start: 04-09-2023 End: 04-09-[address] [facility]order[facility] Work Phone: Start: 04-05-2023 Telephone encounter Brian little MD Work Phone: [facility] Comment on above: Appointment (Patient left request for chest pain) Start: 03-25-2023 End: 03-25-[address] [facility]order[facility] Work Phone: Start: 03-22-2023 Telephone encounter Robson bryan APRN.TECHNICAL SUPPORT CONSULTANT Work Phone: [facility] Comment on above: Results Start: 03-18-2023 End: 03-18-2023 Subsequent hospital visit by physician [facility] (I-Stat) Work Phone: Cat Scan Comment on above: Pulmonary nodule [R9 1.1] Start: 03-11-2023 End: 03-11-2023 Subsequent hospital visit by physician Us [facility] Work Phone: Radiology Comment on above: Neck pain [M54.2] Start: 03-05-2023 End: 03-05-2023 Office outpatient visit 25 minutes Robson Robertson APRN.TECHNICAL SUPPORT CONSULTANT Work Phone: [facility] Comment on above: Neck pain (Primary D x); Type 2 diabetes mellitus without complication, without long-term current use of insulin (HCC); Mixed hyperlipidemia; Essential hypertension; Pulmonary nodule; Lung nodules Start: 01-12-2023 End: 01-12-2023 Patient encounter procedure Jere Rust APRN.TECHNICAL SUPPORT CONSULTANT Work Phone: Cardiology Comment on above: 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) (Primary Dx); S/P CABG x 2; Essential hypertension; Paroxysmal atrial fibrillation (HCC); Pure hypercholesterolemia Start: 12-17-2022 End: 12-17-2022 Subsequent hospital visit by physician Mihir Dickson Work Phone: Nuclear Medicine Comment on above: Encounter for observ ation for other suspected diseases and conditions ruled out [Z03.89] Start: 12-11-2022 End: 12-11-2022 Office outpatient visit 25 minutes Robson Robertson APRN.TECHNICAL SUPPORT CONSULTANT Work Phone: [facility] Comment on above: Essential hypertensi on (Primary Dx); Type 2 diabetes mellitus without complication, without long-term current use of insulin (HCC); S/P CABG x 2; Mixed hyperlipidemia; Elevated PSA Start: 11-19-2022 Non-patient / Non-visit Dr. Hugo Curry Work Phone: [facility] Start: 11-19-2022 End: 11-19-[address] Jess Curry Work Phone: [facility] Work Phone: Start: 11-19-2022 End: 11-19-[address] Jess Curry Work Phone: [facility]-Cardiovasc ular Services Start: 11-16-2022 Telephone encounter Brian little MD Work Phone: [facility] Comment on above: Orders (Db Mcrae requested Nursing staff to place a call to the patient.) Start: 11-16-2022 End: 11-16-2022 ambulatory VERN MILLS Facility:[facility] Start: 11-16-2022 End: 11-16-2022 Patient encounter procedure Vern Mills APRN.TECHNICAL SUPPORT CONSULTANT Work Phone: [facility] Comment on above: S/P CABG x 2 (Primar y Dx); 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); PAF (paroxysmal atrial fibrillation) (HCC); Type 2 diabetes (HCC); Essential hypertension; Mixed hyperlipidemia; Urinary retention; History of prostate cancer; Bradycardia Start: 11-16-2022 End: 11-16-2022 Subsequent hospital visit by physician Xr [facility] Comment on above: S/P CABG x 2 [Z95.1] Start: 11-04-2022 Telephone encounter Brian little MD Work Phone: [facility] Comment on above: Cardiac Rehab (Refer ral info) Start: 11-03-2022 End: 11-03-2022 ambulatory [facility] Facility:[facility] Start: 11-03-2022 End: 11-03-2022 Patient encounter procedure Wai Adair APRN.TECHNICAL SUPPORT CONSULTANT Work Phone: [facility] Comment on above: S/P CABG x 2 (Primar y Dx); 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); Paroxysmal atrial fibrillation (HCC); Controlled type 2 diabetes mellitus without complication, unspecified whether endo tech insulin use (HCC); Primary hypertension; Mixed hyperlipidemia Start: 10-26-2022 Patient Outreach Lola Aguayo RN [employer] Comment on above: Transition Of Care ( TCM initial outreach-dc'd from [facility] 10/23/22) Start: 10-25-2022 End: 10-25-2022 Home visit Jennifer Morton RN Work Phone: [facility] Comment on above: SN NO ADMIT Start: 10-25-2022 Telephone encounter Jennifer monterroso RN Work Phone: [facility] Comment on above: Home Care Start: 10-19-2022 Telephone encounter Moriah Fisher [facility] Comment on above: Home Care (Confirmat ion Call (Attempt)) Start: 10-16-2022 End: 10-23-2022 Evaluation and management of inpatient [facility] Facility:[facility] Start: 10-12-2022 End: 10-12-2022 Patient encounter status Barbie Owens Work Phone: [facility] Start: 10-12-2022 End: 10-12-2022 Subsequent hospital visit by physician Xr [facility] Work Phone: Radiology Comment on above: Coronary artery dise ase involving nome coronary artery of nome heart with other form of angina pectoris (HCC) [I25.118] Start: 10-08-2022 Patient encounter status Brian Colmenares MD Work Phone: [facility] Start: 10-08-2022 Telephone encounter Brian little MD Work Phone: [facility] Comment on above: Orders Start: 10-08-2022 End: 10-08-[address] Jess [facility] Start: 10-06-2022 Telephone encounter Shanelle steinberg APRN.TECHNICAL SUPPORT CONSULTANT Work Phone: [facility] Comment on above: Results Start: 10-02-2022 End: 10-03-2022 ambulatory [facility] Facility:[facility] Start: 10-02-2022 Encounter for other preprocedural examination [facility] Start: 10-02-2022 End: 10-02-2022 ambulatory [facility] Facility:[facility] Start: 10-02-2022 Encounter for other preprocedural examination SHANELLEMisbah STEVE [facility] Start: 10-02-2022 End: 10-02-2022 Patient encounter procedure Shanelle Steve APRN.TECHNICAL SUPPORT CONSULTANT Work Phone: [facility] Comment on above: Pre-op testing (Prim awa Dx); 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); Type 2 diabetes mellitus without complication, without long-term current use of insulin (HCC); Primary hypertension Start: 10-02-2022 End: 10-02-2022 Patient encounter status Shanelle Steve APRN.TECHNICAL SUPPORT CONSULTANT Work Phone: [facility] Start: 09-24-2022 ambulatory [facility]ie Lee [facility] [place] Comment on above: Population Health Na vigation Outreach (ACO ROMAN PCSA) Start: 09-04-2022 Telephone encounter Brian little MD Work Phone: [facility] Comment on above: LMTCB Appointment Reschedu led (New surgery date info) Start: 09-02-2022 ambulatory Robson Robertson TECHNICAL SUPPORT CONSULTANT Work Phone: [facility] Comment on above: Lansoprazole Start: 08-25-2022 End: 08-25-[address] Jess Curry [facility] Start: 08-24-2022 ambulatory Cali edwards MD Work Phone: [facility] Comment on above: VA forms Start: 08-21-2022 End: 08-21-2022 [facility] Work Phone: Radiology Comment on above: Nodule of skin of ab fay [R22.2] Start: 08-18-2022 Telephone encounter Cali monreal MD Work Phone: [facility] Comment on above: Forms (VA disability forms) Start: 08-12-2022 ambulatory Cali edwards MD Work Phone: Ambulatory Surgery Start: 08-06-2022 Patient encounter status Brian Colmenares MD Work Phone: [facility] Start: 08-06-2022 Telephone encounter Aris pantoja DO Work Phone: [facility] Comment on above: Orders Schedule Surgery Start: 08-05-2022 End: 08-05-2022 ambulatory ARIS TOLBERT Facility:[facility] Start: 08-05-2022 End: 08-05-2022 Patient encounter procedure Aris Tolbert DO Work Phone: [facility] Comment on above: Prostate cancer (HCC ) (Primary Dx); Nocturia Start: 07-29-2022 End: 07-29-2022 Subsequent hospital visit by physician [facility] (I-Stat) Work Phone: Cat Scan Comment on above: Prostate cancer (HCC ) [C61] Start: 07-29-2022 Telephone encounter Aris pantoja DO Work Phone: [facility] Comment on above: Orders Start: 07-27-2022 Telephone encounter Aris pantoja DO Work Phone: [facility] Comment on above: Results Start: 07-14-2022 End: 07-14-2022 Patient encounter procedure Aris Tolbert DO Work Phone: [facility] Comment on above: Elevated prostate sp ecific antigen (PSA) (Primary Dx) Nocturia (Primary Dx ); Elevated PSA; Post-void dribbling Start: 07-13-2022 End: 07-13-2022 Patient encounter procedure Brian Colmenares MD Work Phone: [facility] Comment on above: 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) [I25.118 (ICD-10-CM)] (Primary Dx) Start: 07-02-2022 Orders Only Get [place] OIL TREATER .TECHNICAL SUPPORT CONSULTANT Work Phone: [place] [facility] Comment on above: Lung nodules (Primar y Dx) Start: 06-23-2022 ambulatory Get [place] OIL TREATER .TECHNICAL SUPPORT CONSULTANT Work Phone: [facility] Start: 06-23-2022 Telephone encounter Brian little MD Work Phone: [facility] Comment on above: Future Appointment Start: 06-18-2022 Refill Jere Christianson OIL TREATER.TECHNICAL SUPPORT CONSULTANT Work Phone: Cardiology Comment on above: Orders Patient Update; Orde rs Referral Information Start: 06-17-2022 End: 06-17-2022 Patient encounter procedure Brian Colmenares MD Work Phone: [facility] Comment on above: 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) [I25.118 (ICD-10-CM)] (Primary Dx) Start: 06-16-2022 Telephone encounter Brian little MD Work Phone: [facility] Comment on above: Appointment (Appoint ment) Start: 06-10-2022 End: 06-10-2022 Subsequent hospital visit by physician Holli Jaquez MD Work Phone: [place] [facility] TECHNICAL OFFICER Comment on above: Stable angina (HCC) [I20.8], Dyspnea on exertion [R06.09] Start: 04-17-2022 Telephone encounter Olu Harris RN Cardiology Comment on above: Patient Update Start: 04-08-2022 ambulatory [facility] Cardiology Comment on above: Rescheduled Heart Ca th. Start: 04-08-2022 E-mail encounter vitaly m caregiver [facility] Provider [facility] Start: 04-01-2022 Telephone encounter Cali monreal MD Work Phone: [facility] Comment on above: Appointment; Patient Question Start: 03-30-2022 Telephone encounter Cali arellano PA-C Work Phone: Urology Comment on above: Appointment Start: 03-25-2022 Telephone encounter Aris pantoja DO Work Phone: [facility] Comment on above: Appointment Patient Question Start: 03-24-2022 Telephone encounter Cali arellano PA-C Work Phone: Urology Comment on above: Results; Appointment Start: 03-23-2022 ambulatory Yue D Palm er OIL TREATER.TECHNICAL SUPPORT CONSULTANT Work Phone: Cardiology Comment on above: Left Heart Cath inst ructions Start: 03-23-2022 E-mail encounter fro m caregiver Yue D Martinez OIL TREATER.TECHNICAL SUPPORT CONSULTANT Work Phone: [facility] Start: 03-23-2022 Telephone encounter Yue Maegan Martinez OIL TREATER.TECHNICAL SUPPORT CONSULTANT Work Phone: [place] [facility] TECHNICAL OFFICER Comment on above: Appointment; Patient Update Start: 03-19-2022 End: 03-19-2022 Patient encounter procedure Yue Maegan Martinez OIL TREATER.TECHNICAL SUPPORT CONSULTANT Work Phone: Cardiology Comment on above: 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) (Primary Dx); Essential hypertension; Mixed hyperlipidemia; Exertional chest pain; MCCOY (dyspnea on exertion) Start: 03-17-2022 End: 03-17-2022 Patient encounter procedure Cali Costa PA-C Work Phone: Urology Comment on above: Elevated PSA Start: 03-11-2022 Telephone encounter Robson bryan APRN.CNP Work Phone: [facility] Comment on above: Results Start: 03-05-2022 Telephone encounter Yue Martinez APRN.CNP Work Phone: Cardiology Comment on above: Patient Update Start: 03-04-2022 Telephone encounter Robson bryan APRN.CNP Work Phone: [facility] Comment on above: Results Start: 02-24-2022 End: 02-24-2022 Subsequent hospital visit by physician [facility] Wstr (I-Stat) Work Phone: Cat Scan Comment on above: Right lower quadrant abdominal pain [R10.31] Start: 02-10-2022 Telephone encounter Robson bryan APRN.CNP Work Phone: [facility] Comment on above: Results Start: 02-09-2022 End: 02-09-2022 Patient encounter procedure Robson Robertson APRN.CNP Work Phone: [facility] Comment on above: Right lower quadrant abdominal pain (Primary Dx); RLQ abdominal pain; Nausea; Screening for colon cancer; Coronary artery disease involving nome heart without angina pectoris, unspecified vessel or lesion type Start: 01-06-2022 End: 01-06-2022 Subsequent hospital visit by physician [facility] [place] Work Phone: Radiology Comment on above: Rib pain on right si de [R07.81] Start: 09-13-[address] Tex Curry Work Phone: [facility] Procedures Date Procedure Procedure Detail Performing Clinician Start: 05-14-2025 Adult depression screening assessment Melva Oateso OIL TREATER.TECHNICAL SUPPORT CONSULTANT Work Phone: Start: 03-01-2025 Gram stain microscopy Maegan Cordero MD Work Phone: Start: 03-01-[address] l culture Dr. aCli Cordero MD Work Phone: Start: 09-19-2024 Myocardial spect multiple studies Jere Rust OIL TREATER.TECHNICAL SUPPORT CONSULTANT Work Phone: Start: 09-19-2024 Echo tthrc r-t 2d w/wom-mode compl spec&colr d Jere Rust OIL TREATER.TECHNICAL SUPPORT CONSULTANT Work Phone: Start: 09-18-2024 Us abdominal real ti me w/image limited Gerri Curry OIL TREATER.TECHNICAL SUPPORT CONSULTANT Work Phone: Start: 09-04-2024 Ecg routine ecg w/le ast 12 lds i&r only [facility] Start: 07-19-2024 Gluc bld gluc mntr d ev cleared fda spec home use Ramón Michellecci OIL TREATER.LEAN SIX SIGMA BLACK BELT Work Phone: Start: 07-19-2024 Gluc bld gluc mntr d ev cleared fda spec home use Ramón Darrellinacci OIL TREATER.LEAN SIX SIGMA BLACK BELT Work Phone: Start: 07-19-2024 Colonoscopy flx dx w/collj spec when pfrmd Debo Rodriguez MD Work Phone: Start: 07-19-2024 Colonoscopy Debo Rodriguez MD Work Phone: Start: 06-23-2024 PFIZER-BIONTECH COVI D-19 VACCINE AGE 12+ YR Robson Robertson OIL TREATER.TECHNICAL SUPPORT CONSULTANT Work Phone: Start: 05-19-2024 Radiologic exam ches t 2 views Robson Robertson OIL TREATER.TECHNICAL SUPPORT CONSULTANT Work Phone: Start: 04-26-2024 Radiologic exam ches t 2 views Charley Webb OIL TREATER.TECHNICAL SUPPORT CONSULTANT Work Phone: Start: 01-10-2024 Radex hips bilateral with pelvis minimum 5 views Robson Robertson OIL TREATER.TECHNICAL SUPPORT CONSULTANT Work Phone: Start: 06-16-[address] attenuation skull base mid-thigh Jania Pozo MD Work Phone: Start: 05-25-2023 BLADDER SCAN Jania Pozo MD Work Phone: Start: 03-18-2023 Ct thorax w/o contra st material Robson Robertson OIL TREATER.TECHNICAL SUPPORT CONSULTANT Work Phone: Start: 03-11-2023 Us soft tissue head & neck real time imge docm Robson Robertson OIL TREATER.TECHNICAL SUPPORT CONSULTANT Work Phone: Start: 12-17-2022 Bone &/joint imaging whole body Aris Tolbert DO Work Phone: Start: 11-16-2022 Radiologic exam ches t 2 views Wai Adair OIL TREATER.TECHNICAL SUPPORT CONSULTANT Work Phone: Start: 10-16-2022 History of coronary artery bypass grafting S/P CABG x 2 Moriah Brom PSS Start: 10-12-2022 Radiologic exam ches t 2 views Get [place] OIL TREATER.TECHNICAL SUPPORT CONSULTANT Work Phone: Start: 10-02-2022 Antibody screen CALI IRVING ACUÑA Comment on above: Order Comment: Speci men Type: BLOOD SPECIMEN Ordering Facility: [facility] Address: [address] [place] [address] Performed By: #### T [id number] #### [facility]LOOD [facility] CLIA [id number] [address] [place] [address] [place] Start: 10-02-2022 Iadna s aureus ampli fied probe tq Shanelle Miglionico OIL TREATER.TECHNICAL SUPPORT CONSULTANT Work Phone: Start: 08-21-2022 Us abdominal real ti me w/image limited Robson Robertson OIL TREATER.TECHNICAL SUPPORT CONSULTANT Work Phone: Start: 07-29-2022 Ct pelvis w/contrast material Aris Tolbert DO Work Phone: Start: 07-14-2022 Urnls dip stick/tabl et rgnt auto w/o microscopy Cali Costa PA-C Work Phone: Start: 07-14-2022 Urnls dip stick/tabl et rgnt auto w/o microscopy Aris Tolbert DO Work Phone: Start: 06-10-2022 Basic metabolic pane l calcium total Holli Jaiden Jaquez MD Work Phone: Start: 03-17-2022 Urnls dip stick/tabl et rgnt auto w/o microscopy Cali Costa PA-C Work Phone: Start: 02-24-2022 Ct abdomen & pelvis w/o contrast material Robson Robertson APRN.TECHNICAL SUPPORT CONSULTANT Work Phone: Start: 01-06-2022 Radex ribs uni w/posteroant ch minimum 3 views Cali Cordero MD Work Phone: Start: 06-24-2021 History of placement of stent for coronary artery disease S/P right coronary artery (RCA) stent placement Robson Robertson OIL TREATER.TECHNICAL SUPPORT CONSULTANT Work Phone: Start: 10-24-2019 Adult depression screening assessment Robson Robertson OIL TREATER.TECHNICAL SUPPORT CONSULTANT Work Phone: Start: 11-09-2018 History of placement of stent for coronary artery disease History of coronary artery stent placement Dr. Jess Curry Work Phone: Comment on above: PCI-IRENE mid LAD 2.5 X 24 Promus Synergy; PCI-IRENE mid PDA 2.25 X 16 Promus Synergy 11/09/1876MYE-[id number]-[id number] 2.25 x 32 Promus Synergy 11/04/[id number] 2.25 x 20 mm Synergy Monorail and POBA PDA 03/19/2016Successful PTCA/IRENE mid LAD with a 2.5 x 24 Promus Synergy stent, post dilated with a 3.0 x 8 and a 3.5 x 8 NC balloon; 85%-->0%, no dissection on 11/09/2018Successful PTCA/IRENE mid PDA with a 2.25 x 16 Promus Synergy stent; 85%-->0%, no dissection on 11/09/2018 Start: 10-04-2011 Annette bryan OIL TREATER.TECHNICAL SUPPORT CONSULTANT Work Phone: History of coronary artery bypass grafting S/P CABG x 2 Wai Adair OIL TREATER.TECHNICAL SUPPORT CONSULTANT Work Phone: History of coronary artery bypass grafting S/P CABG x 2 [place] OIL TREATER.TECHNICAL SUPPORT CONSULTANT Work Phone: History of coronary artery bypass grafting S/P CABG x 2 Robson Robertson OIL TREATER.TECHNICAL SUPPORT CONSULTANT Work Phone: History of coronary artery bypass grafting S/P CABG x 2 Jere Rust OIL TREATER.TECHNICAL SUPPORT CONSULTANT Work Phone: History of coronary artery bypass grafting S/P CABG x 2 Juan A Pacheco DO Work Phone: History of coronary artery bypass grafting S/P CABG x 2 Jere Rust OIL TREATER.TECHNICAL SUPPORT CONSULTANT Work Phone: History of coronary artery bypass grafting S/P CABG x 2 Jere Rust OIL TREATER.TECHNICAL SUPPORT CONSULTANT Work Phone: History of coronary artery bypass grafting S/P CABG x 2 Jere Rust OIL TREATER.TECHNICAL SUPPORT CONSULTANT Work Phone: History of coronary artery bypass grafting S/P CABG x 2 Angelita Max OIL TREATER.TECHNICAL SUPPORT CONSULTANT Work Phone: History of placement of stent for coronary artery disease S/P right coronary artery (RCA) stent placement Juan A Pacheco DO Work Phone: Plan of Treatment Date Care Activity Detail Author Start: 03-12-2027 LIPID SCREEN LIPID SCREEN [facility] Start: 05-14-2026 Annual PCP Team Chronic Disease Visit Annual PCP Team Chronic Disease Visit [facility] Start: 05-14-2026 Anxiety Screening Anxiety Screening [facility] Start: 05-14-2026 Depression Screening Depression Screening [facility] Start: 05-14-2026 RSV Vaccine (1 - 1-dose 75+ series) RSV Vaccine (1 - 1-dose 75+ series) [facility] Comment on above: Postponed from 2025 (Declined at t his time) Start: 05-14-2026 RSV Vaccine (1 - Risk 60-74 years 1-dose series) RSV Vaccine (1 - Risk 60-74 years 1-dose series) [facility] Comment on above: Postponed from 2010 (Declined at t his time) Start: 05-14-2026 Shingrix Vaccine (2 of 2) Shingrix Vaccine (2 of 2) [facility] Comment on above: Postponed from 12/22/2019 (Declined at t his time) Start: 05-14-2026 Urine microalbumin profile DTaP,Tdap,Td Vaccine (1 - Tdap) [facility] Comment on above: Postponed from 1969 (Declined at t his time) Start: 04-01-2026 LIPID SCREEN LIPID SCREEN [facility] Start: 03-12-2026 Annual PCP Team Chronic Disease Visit Annual PCP Team Chronic Disease Visit [facility] Start: 03-12-2026 BP Controlled (<130/80) BP Controlled (<130/80) [facility] Start: 03-12-2026 Covid-19 Vaccine ( season) Covid-19 Vaccine ( season) [facility] Comment on above: Postponed from 12/21/2024 (Declined at t his time) Start: 03-06-2026 Annual PCP Team Chronic Disease Visit Annual PCP Team Chronic Disease Visit [facility] Start: 11-16-2025 Annual PCP Team Chronic Disease Visit Annual PCP Team Chronic Disease Visit [facility] Start: 10-23-2025 DIABETES SCREEN DIABETES SCREEN [facility] Start: 10-19-2025 DIABETES SCREEN DIABETES SCREEN [facility] Start: 10-02-2025 DIABETES SCREEN DIABETES SCREEN [facility] Start: 09-08-2025 Hemoglobin A1c measurement HbA1C [facility] Start: 09-06-2025 Annual PCP Team Chronic Disease Visit Annual PCP Team Chronic Disease Visit [facility] Start: 08-13-2025 End: 08-13-2025 Patient encounter procedure [facility] [place] Comment on above: 3 month f/up 3 Month Follow Up/Pl ease address HCC Gap Closure Start: 08-07-2025 End: 08-07-2025 Patient encounter procedure [facility] Comment on above: Abdominal aortic aneurysm (AAA) without rupture, unspecified part (HCC) [I71.40] Follow up after test ing Start: 08-06-2025 End: 08-06-2025 Patient encounter procedure 08/06/2025 3:45 PM EST Office Visit Urology [address] [place] [address] Jania Pozo MD [address] [place], [place] [address] [place] [address] 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 Urology Comment on above: 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 Start: 07-19-2025 Screening for malignant neoplasm of colon [facility] Start: 07-12-2025 Annual PCP Team Chronic Disease Visit Annual PCP Team Chronic Disease Visit [facility] Start: 07-12-2025 BP Controlled (<130/80) BP Controlled (<130/80) [facility] Start: 06-23-2025 Annual PCP Team Chronic Disease Visit Annual PCP Team Chronic Disease Visit [facility] Start: 06-14-2025 End: 06-14-2025 Patient encounter procedure 06/14/2025 9:15 AM EDT Office Visit Urology [facility] [place] [address] Jania Pozo MD [address] [place], [place] [address] [place], [place] [id number] 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 Urology Comment on above: 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 Start: 06-12-2025 End: 06-12-2025 Patient encounter procedure 06/12/2025 3:30 PM EDT Office Visit Cardiology [address] [phone] Jere Rust, OIL TREATER.TECHNICAL SUPPORT CONSULTANT [address] [place], [place] [phone] 6 mo follow up Cardiology Comment on above: 6 mo follow up Start: 06-12-2025 Annual PCP Team Chronic Disease Visit Annual PCP Team Chronic Disease Visit [facility] Start: 06-12-2025 End: 09-11-2025 Hemoglobin A1c in Blood HEMOGLOBIN A1C Lab Routine 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) Expected: 06/12/2025, Expires: 09/11/2025 [facility] Work Phone: Comment on above: Expected: 06/12/2025, Expires: Start: 06-10-2025 DIABETES SCREEN DIABETES SCREEN [facility] Start: 06-09-2025 End: 09-07-2025 Hemoglobin A1c in Blood HEMOGLOBIN A1C Lab Routine Type 2 diabetes mellitus without complication, without long-term current use of insulin (HCC) Expected: 06/09/2025, Expires: 09/07/2025 [facility] Work Phone: Comment on above: Expected: 06/09/2025, Expires: Start: 06-07-2025 Hepatitis B screening Urine Albumin:Creatinine Ratio [facility] Start: 06-07-2025 Hepatitis B surface antibody level LDL Cholesterol [facility] Start: 2025 Influenza vaccination Influenza Vaccine (#1) [facility] Start: 05-31-2025 End: 05-31-2025 Patient encounter procedure Cardiology Comment on above: 6 mo follow up Type 2 diabetes sylvia itus without complication, without long-term current use of ... 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 Start: 05-27-2025 End: 08-26-2025 Prostate specific Ag [Mass/volume] in Serum or Plasma PROSTATE-SPECIFIC ANTIGEN DIAGNOSTIC Lab Routine History of prostate cancer Expected: 05/27/2025 (Approximate), Expires: 08/26/2025 [facility] Work Phone: Comment on above: Expected: 05/27/2025 (Approximate), Expi res: 08/26/2025 Start: 05-24-2025 End: 05-24-2025 Patient encounter procedure 05/24/2025 11:00 AM EDT [facility] [address] [place] [address] Adriana Morocho, [facility] [address] [place] [address] Type 2 diabetes mellitus without complication, without long-term current use of ... [facility] Comment on above: Type 2 diabetes mellitus without complic ation, without long-term current use of ... Start: 05-19-2025 Annual PCP Team Chronic Disease Visit Annual PCP Team Chronic Disease Visit [facility] Start: 05-19-2025 BP Controlled (<130/80) BP Controlled (<130/80) [facility] Start: 05-14-2025 End: 05-14-2025 Patient encounter procedure 05/14/2025 2:20 PM EDT Office Visit Family [facility] [address] [place], [place] [address] Melva Lozada APRN.TECHNICAL SUPPORT CONSULTANT [address] [place], [place] [phone] 4 week f/up on monjurio/ wellness Family [facility] Comment on above: 4 week f/up on monjurio/ wellness Start: 04-09-2025 End: 04-09-2025 Patient encounter procedure Family [facility] Comment on above: 4 week f/up on monjurio 4 week f/up on monju alfreda/ wellness Start: 03-23-2025 End: 06-22-2025 Microalbumin/Creatinine [Mass Ratio] in Urine ALBUMIN/CREATININE RATIO, URINE Lab Routine Type 2 diabetes mellitus without complication, without long-term current use of insulin (HCC) Expected: 03/23/2025, Expires: 06/22/2025 [facility] Work Phone: Comment on above: Expected: 03/23/2025, Expires: Start: 03-20-2025 DIABETES SCREEN DIABETES SCREEN [facility] Start: 03-10-2025 DIABETES SCREEN DIABETES SCREEN [facility] Start: 03-07-2025 Hemoglobin A1c measurement HbA1C [facility] Start: 02-14-2025 Hemoglobin A1c measurement HbA1C [facility] Start: 01-09-2025 Annual PCP Team Chronic Disease Visit Annual PCP Team Chronic Disease Visit [facility] Start: 12-22-2024 End: 12-22-2024 Patient encounter procedure 12/22/2024 2:00 PM EDT Office Visit Family [facility] [address] [place] [phone] Robson Robertson, OIL TREATER.TECHNICAL SUPPORT CONSULTANT [address] [place], [place] [phone] 6 month follow up Family [facility] Comment on above: 6 month follow up Start: 12-21-2024 End: 03-22-2025 Comprehensive metabolic 2000 panel - Serum or Plasma COMPREHENSIVE METABOLIC PANEL Lab Routine Type 2 diabetes mellitus without complication, without long-term current use of insulin (HCC) Essential hypertension Mixed hyperlipidemia Expected: 12/21/2024 (Approximate), Expires: 03/22/2025 [facility] Comment on above: Expected: 12/21/2024 (Approximate), Expi res: 03/22/2025 Start: 12-21-2024 Covid-19 Vaccine () Covid-19 Vaccine () [facility] Start: 12-21-2024 End: 03-22-2025 Hemoglobin A1c in Blood HEMOGLOBIN A1C Lab Routine Type 2 diabetes mellitus without complication, without long-term current use of insulin (HCC) Expected: 12/21/2024 (Approximate), Expires: 03/22/2025 [facility] Work Phone: Comment on above: Expected: 12/21/2024 (Approximate), Expi res: 03/22/2025 Start: 12-21-2024 End: 03-22-2025 Lipid 1996 panel - Serum or Plasma LIPID PANEL BASIC Lab Routine Mixed hyperlipidemia Expected: 12/21/2024 (Approximate), Expires: 03/22/2025 [facility] Comment on above: Expected: 12/21/2024 (Approximate), Expi res: 03/22/2025 Start: 12-15-2024 End: 12-15-2024 Patient encounter procedure 12/15/2024 2:30 PM EDT Office Visit Cardiology [address] [address] Jere Rust APRN.TECHNICAL SUPPORT CONSULTANT [address] [place] [address] Follow up after testing Cardiology Comment on above: Follow up after testing Start: 12-07-2024 End: 03-08-2025 Comprehensive metabolic 2000 panel - Serum or Plasma COMPREHENSIVE METABOLIC PANEL Lab Routine Type 2 diabetes mellitus without complication, without long-term current use of insulin (HCC) Expected: 12/07/2024, Expires: 03/08/2025 [facility] Comment on above: Expected: 12/07/2024, Expires: Start: 12-07-2024 End: 03-08-2025 Hemoglobin A1c in Blood HEMOGLOBIN A1C Lab Routine Type 2 diabetes mellitus without complication, without long-term current use of insulin (HCC) Expected: 12/07/2024, Expires: 03/08/2025 [facility] Work Phone: Comment on above: Expected: 12/07/2024, Expires: Start: 12-05-2024 Hemoglobin A1c measurement HbA1C [facility] Start: 11-27-2024 End: 11-27-2024 Patient encounter procedure 11/27/2024 10:45 AM EST Office Visit Urology [address] [place] [address] Jania Pozo MD [address] [facility] [address] [place] [address] follow up for prostate cancer Pt getting PSA complete. - Urology Comment on above: follow up for prostate cancer Pt getti ng PSA complete. - Start: 11-25-2024 BP Controlled (<130/80) BP Controlled (<130/80) [facility] in Start: 11-23-2024 BP Controlled (<130/80) BP Controlled (<130/80) [facility] Start: 11-20-2024 End: 02-19-2025 Prostate specific Ag [Mass/volume] in Serum or Plasma PROSTATE-SPECIFIC ANTIGEN DIAGNOSTIC Lab Routine Prostate cancer (HCC) Expected: 11/20/2024, Expires: 02/19/2025 [facility] Work Phone: Comment on above: Expected: 11/20/2024, Expires: Start: 11-20-2024 End: 11-20-2024 Patient encounter procedure Urology Comment on above: follow up for prostate cancer follow up for prosta te cancer Pt getting PSA complete. - CW Start: 11-17-2024 End: 11-17-2024 ambulatory 11/17/2024 2:00 PM EST Results Only [facility] [address] [place] [address] [facility] Start: 11-17-2024 End: 02-16-2025 Prostate specific Ag [Mass/volume] in Serum or Plasma PROSTATE-SPECIFIC ANTIGEN DIAGNOSTIC Lab Routine History of prostate cancer Expected: 11/17/2024, Expires: 02/16/2025 [facility] Work Phone: Comment on above: Expected: 11/17/2024, Expires: Start: 10-23-2024 Covid-19 Vaccine () Covid-19 Vaccine () [facility] Start: 10-06-2024 End: 10-06-2024 Patient encounter procedure 10/06/2024 9:30 AM EST Office Visit Cardiology [address] [address] Jere Rust, OIL TREATER.TECHNICAL SUPPORT CONSULTANT [address] [place], [place] [id number] Follow up after testing Cardiology Comment on above: Follow up after testing Start: 10-04-2024 Advance Directive Discussion Advance Directive Discussion [facility] Start: 10-04-2024 Medicare Advantage Annual Wellness Visit Medicare Advantage Annual Wellness Visit [facility] Start: 09-24-2024 Annual PCP Team Chronic Disease Visit Annual PCP Team Chronic Disease Visit [facility] Start: 09-19-2024 Subsequent hospital visit by physician 09/19/2024 1:00 PM EST Hospital Encounter Cardiology Lab [address] [place] [address] 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] Cardiology Lab Comment on above: 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] Start: 09-19-2024 End: 09-19-2024 Patient encounter procedure Cardiology Lab Comment on above: 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] Start: 09-06-2024 End: 09-06-2024 Patient encounter procedure 09/06/2024 3:00 PM EST Office Visit Family Medicine [facility] [address] [place], [place] [id number] Gerri uCrry APRN.TECHNICAL SUPPORT CONSULTANT [address] [place] [address] Upper abdomen pain Family Medicine [place] Comment on above: Upper abdomen pain Start: 09-06-2024 End: 12-06-2024 Amylase [Enzymatic activity/volume] in Serum or Plasma [facility] Comment on above: Expected: 09/06/2024, Expires: Start: 09-06-2024 Annual PCP Team Chronic Disease Visit Annual PCP Team Chronic Disease Visit [facility] Start: 09-06-2024 End: 12-06-2024 Comprehensive metabolic 2000 panel - Serum or Plasma [facility] Comment on above: Expected: 09/06/2024, Expires: Start: 09-06-2024 End: 12-06-2024 Hemoglobin A1c in Blood [facility] Work Phone: Comment on above: Expected: 09/06/2024, Expires: Start: 09-06-2024 End: 12-06-2024 Lipase [Enzymatic activity/volume] in Serum or Plasma [facility] Comment on above: Expected: 09/06/2024, Expires: Start: 09-03-2024 Annual PCP Team Chronic Disease Visit Annual PCP Team Chronic Disease Visit [facility] Start: 08-15-2024 End: 08-15-2024 Patient encounter procedure 08/15/2024 3:30 PM EST Office Visit Vascular Surgery [address] [place] [address] Moriah Arreaga, [address] [place] [address] Abdominal aortic aneurysm (AAA) without rupture, unspecified part (HCC) [I71.40] Vascular Surgery Comment on above: Abdominal aortic aneurysm (AAA) without rupture, unspecified part (HCC) [I71.40] Start: 07-20-2024 End: 07-20-2024 Patient encounter procedure 07/20/2024 4:00 PM EDT Appointment Radiology [address] [place], [place] [id number] Abdominal aortic aneurysm (AAA) without rupture, unspecified part (HCC) [I71.40] Radiology Comment on above: Abdominal aortic aneurysm (AAA) without rupture, unspecified part (HCC) [I71.40] Start: 07-19-2024 End: 07-19-2024 Patient encounter procedure [facility] Comment on above: colon Start: 06-26-2024 End: 06-26-2024 Admission to same day surgery center 06/26/2024 1:45 PM EDT [facility] [address] [facility] [place] [address] Debo Rodriguez MD [address] [facility] [place] [id number] History of colonic polyps [Z86.010]; Screening for colon cancer [Z12.11] General Surgery Comment on above: History of colonic polyps [Z86.010]; Scr eening for colon cancer [Z12.11] Start: 06-16-2024 End: 06-16-2024 Patient encounter procedure 06/16/2024 2:00 PM EDT Office Visit Family Medicine [facility] [address] [facility] [place] [address] Robson Robertson, KATT.TECHNICAL SUPPORT CONSULTANT [address] [facility] [place] [id number] Blood work follow up [facility] Vernon Owens Comment on above: Blood work follow up Start: 2024 Covid-19 Vaccine () Covid-19 Vaccine () [facility] Start: 2024 Influenza vaccination [facility] Start: 05-26-2024 End: 05-26-2024 Patient encounter procedure 05/26/2024 11:00 AM EDT Office Visit [facility] [place] [address] [place] [address] Robson Robertson, KATT.TECHNICAL SUPPORT CONSULTANT [address] [facility] [place] [id number] [address] [facility] Comment on above: 1 week follow up Start: 05-19-2024 End: 08-18-2024 CBC W Auto Differential panel - Blood COMPLETE BLOOD COUNT AND DIFFERENTIAL Lab Routine Type 2 diabetes mellitus without complication, without long-term current use of insulin (HCC) Expected: 05/19/2024, Expires: 08/18/2024 [facility] Work Phone: Comment on above: Expected: 05/19/2024, Expires: Start: 05-19-2024 End: 08-18-2024 Comprehensive metabolic 2000 panel - Serum or Plasma COMPREHENSIVE METABOLIC PANEL Lab Routine Essential hypertension Type 2 diabetes mellitus without complication, without long-term current use of insulin (HCC) Mixed hyperlipidemia Expected: 05/19/2024, Expires: 08/18/2024 [facility] Comment on above: Expected: 05/19/2024, Expires: Start: 05-19-2024 End: 08-18-2024 Hemoglobin A1c in Blood HEMOGLOBIN A1C Lab Routine Type 2 diabetes mellitus without complication, without long-term current use of insulin (HCC) Expected: 05/19/2024, Expires: 08/18/2024 [facility] Comment on above: Expected: 05/19/2024, Expires: Start: 05-19-2024 End: 08-18-2024 Lipid 1996 panel - Serum or Plasma LIPID PANEL BASIC Lab Routine Mixed hyperlipidemia Expected: 05/19/2024, Expires: 08/18/2024 [facility] Comment on above: Expected: 05/19/2024, Expires: Start: 05-19-2024 End: 08-18-2024 Microalbumin/Creatinine [Mass Ratio] in Urine ALBUMIN/CREATININE RATIO, URINE Lab Routine Type 2 diabetes mellitus without complication, without long-term current use of insulin (HCC) Expected: 05/19/2024, Expires: 08/18/2024 [facility] Comment on above: Expected: 05/19/2024, Expires: Start: 05-02-2024 End: 05-02-2024 Patient encounter procedure 05/02/2024 2:20 PM EDT Office Visit Cardiology [address] [place] [address] Juan A Pacheco DO [address] [place] [address] 3-4 Month follow up Cardiology Comment on above: 3-4 Month follow up Start: 04-01-2024 DIABETES SCREEN DIABETES SCREEN [facility] Start: 03-31-2024 End: 03-31-2024 Patient encounter procedure 03/31/2024 3:00 PM EDT Office Visit Orthopaedics [address] [address] Sean Winston PA-C [address] [address] Bilateral hip pain Orthopaedics Comment on above: Bilateral hip pain Start: 03-13-2024 End: 03-13-2024 ambulatory 03/13/2024 3:00 PM EDT OT/PT/Speech Visit [facility] [address] [place] [id number] Josue Bedolla, PT [address] [place] [address] Bilateral hip pain [M25.551, M25.552] [facility] Comment on above: Bilateral hip pain [M25.551, M25.552] Start: 03-06-2024 End: 03-06-2024 ambulatory 03/06/2024 3:00 PM EDT OT/PT/Speech Visit [facility] [address] [place] [address] Josue Bedolla, PT [address] [place] [address] Bilateral hip pain [M25.551, M25.552] [facility] Comment on above: Bilateral hip pain [M25.551, M25.552] Start: 03-06-2024 Hepatitis B screening URINE ALBUMIN:CREATININE RATIO [facility] Start: 03-06-2024 Hepatitis B surface antibody level LDL CHOLESTEROL [facility] Start: 03-05-2024 ANNUAL PCP TEAM CHRONIC DISEASE VISIT ANNUAL PCP TEAM CHRONIC DISEASE VISIT [facility] Start: 02-29-2024 End: 02-29-2024 ambulatory 02/29/2024 3:45 PM EDT OT/PT/Speech Visit [facility] [address] [place] [address] Matthew Fofana, PT, DPT Bilateral hip pain [M25.551, M25.552] [facility] Comment on above: Bilateral hip pain [M25.551, M25.552] Start: 02-25-2024 End: 02-25-2024 Patient encounter procedure 02/25/2024 3:00 PM EDT Office Visit Orthopaedics [address] [address] Sean Winston PA-C [address] [address] ANGELA HIP PAIN Orthopaedics Comment on above: ANGELA HIP PAIN Start: 02-24-2024 End: 02-24-2024 ambulatory 02/24/2024 2:45 PM EDT OT/PT/Speech Visit [facility] [address] [facility] [place] [address] Josue Bedolla, PT [address] [place], [place] [id number] Bilateral hip pain [M25.551, M25.552] [facility] Comment on above: Bilateral hip pain [M25.551, M25.552] Start: 02-14-2024 End: 02-14-2024 Patient encounter procedure 02/14/2024 2:40 PM EDT Office Visit Urology [address] [place] [address] [place] [address] Heavenly Vasquez, OIL TREATER.TECHNICAL SUPPORT CONSULTANT [address] [place] [address] 6 month follow up with psa PSA done on 01/27 - CW? Urology Comment on above: 6 month follow up with psa PSA done on 01/27 - ? Start: 02-08-2024 End: 02-08-2024 ambulatory 02/08/2024 1:15 PM EDT OT/PT/Speech Visit [facility] [address] [place] [address] Josue Bedolla, PT [address] [place] [address] Bilateral hip pain [M25.551, M25.552] [facility] Comment on above: Bilateral hip pain [M25.551, M25.552] Start: 02-02-2024 End: 02-02-2024 Patient encounter procedure 02/02/2024 10:00 AM EDT Office Visit Orthopaedics [address] [address] Sean Winston PA-C [address] [address] ANGELA HIP PAIN Orthopaedics Comment on above: ANGELA HIP PAIN Start: 01-31-2024 End: 01-31-2024 Patient encounter procedure 01/31/2024 1:45 PM EDT Office Visit Urology [address] [place] [address] Jania Pozo MD [address] [place] [address] 6 month follow up with psa Urology Comment on above: 6 month follow up with psa Start: 01-29-2024 End: 04-29-2024 Prostate specific Ag [Mass/volume] in Serum or Plasma PSA/PROSTSPECAG DIAG Lab Routine Prostate cancer (HCC) Expected: 01/29/2024, Expires: 04/29/2024 [facility] Work Phone: Comment on above: Expected: 01/29/2024, Expires: Start: 01-24-2024 End: 04-24-2024 25-hydroxyvitamin D3 [Mass/volume] in Serum or Plasma VITAMIN D 25 HYDROXY Lab Routine Other fatigue Expected: 01/24/2024, Expires: 04/24/2024 [facility] Comment on above: Expected: 01/24/2024, Expires: Start: 01-24-2024 End: 04-24-2024 Basic metabolic 2000 panel - Serum or Plasma BASIC METABOLIC PANEL Lab Routine Essential hypertension Expected: 01/24/2024, Expires: 04/24/2024 [facility] Comment on above: Expected: 01/24/2024, Expires: Start: 01-24-2024 End: 04-24-2024 CBC panel - Blood by Automated count COMPLETE BLOOD COUNT Lab Routine Other fatigue Blood in stool Current use of half-way anticoagulation Expected: 01/24/2024, Expires: 04/24/2024 [facility] Comment on above: Expected: 01/24/2024, Expires: Start: 01-24-2024 End: 04-24-2024 Ferritin [Mass/volume] in Serum or Plasma FERRITIN Lab Routine Other fatigue Blood in stool Expected: 01/24/2024, Expires: 04/24/2024 [facility] Comment on above: Expected: 01/24/2024, Expires: Start: 01-24-2024 End: 04-24-2024 Iron and Iron binding capacity panel - Serum or Plasma IRON AND TIBC Lab Routine Other fatigue Blood in stool Expected: 01/24/2024, Expires: 04/24/2024 [facility] Comment on above: Expected: 01/24/2024, Expires: Start: 01-24-2024 End: 04-24-2024 Thyrotropin [Units/volume] in Serum or Plasma THYROID STIMULATING HORMONE Lab Routine Other fatigue Expected: 01/24/2024, Expires: 04/24/2024 [facility] Work Phone: Comment on above: Expected: 01/24/2024, Expires: Start: 01-13-2024 BP CONTROLLED (<130/80) BP CONTROLLED (<130/80) [facility] in Start: 12-12-2023 ANNUAL PCP TEAM CHRONIC DISEASE VISIT ANNUAL PCP TEAM CHRONIC DISEASE VISIT [facility] Start: 11-16-2023 End: 02-15-2024 Bacteria identified in Urine by Culture [facility] Work Phone: Comment on above: Expected: 11/16/2023, Expires: Start: 11-16-2023 BP CONTROLLED (<130/80) BP CONTROLLED (<130/80) [facility] Start: 10-19-2023 End: 10-19-2023 Patient encounter procedure 10/19/2023 2:45 PM EST Office Visit [facility] [address] [place] [address] Sam Fernando MD [facility] [address] [address] [facility] Start: 10-04-2023 Advance Directive Discussion Advance Directive Discussion [facility] Start: 10-04-2023 Behavioral Health Screening Behavioral Health Screening [facility] Start: 10-04-2023 Depression Assessment Depression Assessment [facility] Start: 09-05-2023 Hemoglobin A1c measurement [facility] Start: 09-05-2023 Hemoglobin A1c/Hemoglobin.total in Blood HBA1C [facility] Start: 08-18-2023 ANNUAL PCP TEAM CHRONIC DISEASE VISIT ANNUAL PCP TEAM CHRONIC DISEASE VISIT [facility] Start: 08-18-2023 COVID-19 VACCINE (5 - Booster for Moderna series) COVID-19 VACCINE (5 - Booster for Moderna series) [facility] Comment on above: Postponed from 02/25/2022 (Declined at t his time) Start: 08-18-2023 COVID-19 VACCINE (5 - Moderna series) COVID-19 VACCINE (5 - Moderna series) [facility] Comment on above: Postponed from 02/25/2022 (Declined at t his time) Start: 08-18-2023 Urine microalbumin profile [facility] Comment on above: Postponed from 1969 (Insurance Cov erage) Start: 08-03-2023 End: 08-03-2023 Patient encounter procedure 08/03/2023 1:45 PM EDT Office Visit [facility] [address] [place] [address] Sam Fernando MD [facility] [address] [address] [facility] Start: 07-02-2023 End: 08-01-2024 Ct thorax w/o contrast material CT CHEST WO IVCON Radiology Routine Lung nodules Expected: 07/02/2023, Expires: 08/01/2024 [facility] Work Phone: Comment on above: Expected: 07/02/2023, Expires: Start: 06-08-2023 End: 06-23-2024 NM PET/CT PROSTATE WHOLE BODY IMAGING NM PET/CT PROSTATE WHOLE BODY IMAGING Radiology Routine Prostate cancer (HCC) Expected: 06/08/2023, Expires: 06/23/2024 [facility] Work Phone: Comment on above: Expected: 06/08/2023, Expires: 4 Start: 06-08-2023 End: 08-08-2023 Prostate specific Ag [Mass/volume] in Serum or Plasma PSA/PROSTSPECAG DIAG Lab Routine Prostate cancer (HCC) Expected: 06/08/2023, Expires: 08/08/2023 [facility] Work Phone: Comment on above: Expected: 06/08/2023, Expires: 3 Start: 2023 COVID-19 Vaccine () COVID-19 Vaccine () [facility] Start: 2023 Influenza vaccination [facility] Start: 04-02-2023 Hemoglobin A1c/Hemoglobin.total in Blood HBA1C [facility] Start: 04-02-2023 Influenza vaccination INFLUENZA (#1) [facility] Comment on above: Postponed from 2022 (Declined at t his time) Start: 03-13-2023 End: 05-13-2023 ALBUMIN/CREAT RATIO RND UR ALBUMIN/CREAT RATIO RND UR Lab Routine Type 2 diabetes mellitus without complication, without long-term current use of insulin (HCC) Expected: 03/13/2023 (Approximate), Expires: 05/13/2023 [facility] Work Phone: Comment on above: Expected: 03/13/2023 (Approximate), Expi res: 05/13/2023 Start: 03-13-2023 End: 05-13-2023 Comprehensive metabolic 2000 panel - Serum or Plasma COMP METABOLIC PANEL Lab Routine Essential hypertension Expected: 03/13/2023 (Approximate), Expires: 05/13/2023 [facility] Work Phone: Comment on above: Expected: 03/13/2023 (Approximate), Expi res: 05/13/2023 Start: 03-13-2023 End: 05-13-2023 Hemoglobin A1c in Blood HGB A1C Lab Routine Type 2 diabetes mellitus without complication, without long-term current use of insulin (HCC) Expected: 03/13/2023 (Approximate), Expires: 05/13/2023 [facility] Work Phone: Comment on above: Expected: 03/13/2023 (Approximate), Expi res: 05/13/2023 Start: 03-13-2023 End: 05-13-2023 Lipid 1996 panel - Serum or Plasma LIPID PANEL BASIC Lab Routine Mixed hyperlipidemia Type 2 diabetes mellitus without complication, without long-term current use of insulin (HCC) Expected: 03/13/2023 (Approximate), Expires: 05/13/2023 [facility] Work Phone: Comment on above: Expected: 03/13/2023 (Approximate), Expi res: 05/13/2023 Start: 03-12-2023 Hepatitis B surface antibody level LDL CHOLESTEROL [facility] Start: 02-09-2023 ANNUAL PCP TEAM CHRONIC DISEASE VISIT ANNUAL PCP TEAM CHRONIC DISEASE VISIT [facility] Start: 10-08-2022 End: 10-08-2023 SARS-CoV-2 (COVID-19) RNA [Presence] in Respiratory specimen by BECCA with probe detection PRE-PROCEDURE & PRE-OPERATIVE COVID Microbiology Routine 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) Pre-op testing Expected: 10/08/2022, Expires: 10/08/2023 [facility] Work Phone: Comment on above: Expected: 10/08/2022, Expires: Start: 10-04-2022 ADVANCE DIRECTIVE DISCUSSION ADVANCE DIRECTIVE DISCUSSION [facility] Start: 10-04-2022 DEPRESSION ASSESSMENT DEPRESSION ASSESSMENT [facility] Start: 08-06-2022 End: 10-06-2022 CBC panel - Blood by Automated count CBC Lab Routine 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) Preoperative testing Elevated PSA Type 2 diabetes mellitus without complication, without long-term current use of insulin (HCC) Expected: 08/06/2022, Expires: 10/06/2022 [facility] Work Phone: Comment on above: Expected: 08/06/2022, Expires: Start: 08-06-2022 End: 10-06-2022 Comprehensive metabolic 2000 panel - Serum or Plasma COMP METABOLIC PANEL Lab Routine 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) Preoperative testing Elevated PSA Type 2 diabetes mellitus without complication, without long-term current use of insulin (HCC) Expected: 08/06/2022, Expires: 10/06/2022 [facility] Work Phone: Comment on above: Expected: 08/06/2022, Expires: Start: 08-06-2022 End: 10-06-2022 Hemoglobin A1c in Blood HGB A1C Lab Routine 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) Preoperative testing Elevated PSA Type 2 diabetes mellitus without complication, without long-term current use of insulin (HCC) Expected: 08/06/2022, Expires: 10/06/2022 [facility] Work Phone: Comment on above: Expected: 08/06/2022, Expires: Start: 08-06-2022 End: 10-06-2022 Magnesium [Mass/volume] in Serum or Plasma MAGNESIUM BLD Lab Routine 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) Preoperative testing Elevated PSA Type 2 diabetes mellitus without complication, without long-term current use of insulin (HCC) Expected: 08/06/2022, Expires: 10/06/2022 [facility] Work Phone: Comment on above: Expected: 08/06/2022, Expires: 3 Start: 08-06-2022 End: 10-06-2022 PT panel - Platelet poor plasma by Coagulation assay PROTHROMBIN TIME/PT Lab Routine 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) Preoperative testing Elevated PSA Type 2 diabetes mellitus without complication, without long-term current use of insulin (HCC) Expected: 08/06/2022, Expires: 10/06/2022 [facility] Work Phone: Comment on above: Expected: 08/06/2022, Expires: 3 Start: 08-06-2022 End: 08-06-2023 SARS-CoV-2 (COVID-19) RNA [Presence] in Respiratory specimen by BECCA with probe detection PRE-PROCEDURE & PRE-OPERATIVE COVID Microbiology Routine 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) Preoperative testing Elevated PSA Type 2 diabetes mellitus without complication, without long-term current use of insulin (HCC) Expected: 08/06/2022, Expires: 08/06/2023 [facility] Work Phone: Comment on above: Expected: 08/06/2022, Expires: 3 Start: 08-06-2022 End: 10-06-2022 Thyrotropin [Units/volume] in Serum or Plasma TSH BLD Lab Routine 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) Preoperative testing Elevated PSA Type 2 diabetes mellitus without complication, without long-term current use of insulin (HCC) Expected: 08/06/2022, Expires: 10/06/2022 [facility] Work Phone: Comment on above: Expected: 08/06/2022, Expires: 3 Start: 08-06-2022 End: 10-06-2022 TYPE AND SCREEN,30 DAY TYPE AND SCREEN,30 DAY Blood Bank Routine 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) Preoperative testing Elevated PSA Type 2 diabetes mellitus without complication, without long-term current use of insulin (HCC) Expected: 08/06/2022, Expires: 10/06/2022 [facility] Work Phone: Comment on above: Expected: 08/06/2022, Expires: 3 Start: 08-06-2022 End: 10-06-2022 Urinalysis complete panel - Urine URINALYSIS WITH MICROSCOPIC, REFLEX CULTURE Lab Routine 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) Preoperative testing Elevated PSA Type 2 diabetes mellitus without complication, without long-term current use of insulin (HCC) Expected: 08/06/2022, Expires: 10/06/2022 [facility] Work Phone: Comment on above: Expected: 08/06/2022, Expires: 3 Start: 2022 Influenza vaccination [facility] Start: 04-01-2022 BP CONTROLLED (<130/80) BP CONTROLLED (<130/80) [facility] Start: 04-01-2022 Hepatitis B surface antibody level LDL CHOLESTEROL [facility] Start: 03-19-2022 End: 05-19-2022 Basic metabolic 2000 panel - Serum or Plasma BASIC METABOLIC PNL Lab Routine 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) Essential hypertension Mixed hyperlipidemia Exertional chest pain MCCOY (dyspnea on exertion) Expected: 03/19/2022, Expires: 05/19/2022 [facility] Work Phone: Comment on above: Expected: 03/19/2022, Expires: 2 Start: 03-19-2022 End: 05-19-2022 CBC panel - Blood by Automated count CBC Lab Routine 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) Essential hypertension Mixed hyperlipidemia Exertional chest pain MCCOY (dyspnea on exertion) Expected: 03/19/2022, Expires: 05/19/2022 [facility] Work Phone: Comment on above: Expected: 03/19/2022, Expires: 2 Start: 03-19-2022 End: 05-19-2022 Magnesium [Mass/volume] in Serum or Plasma MAGNESIUM BLD Lab Routine 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) Essential hypertension Mixed hyperlipidemia Exertional chest pain MCCOY (dyspnea on exertion) Expected: 03/19/2022, Expires: 05/19/2022 [facility] Work Phone: Comment on above: Expected: 03/19/2022, Expires: 2 Start: 03-18-2022 End: 05-18-2022 ISOPSA ASSAY FOR UROLOGY USE ONLY ISOPSA ASSAY FOR UROLOGY USE ONLY Lab Routine Elevated PSA Expected: 03/18/2022, Expires: 05/18/2022 [facility] Work Phone: Comment on above: Expected: 03/18/2022, Expires: 2 Start: 03-11-2022 End: 05-11-2022 Prostate Specific Ag Free [Mass/volume] in Serum or Plasma PSA FREE Lab Routine Elevated PSA Expected: 03/11/2022, Expires: 05/11/2022 [facility] Work Phone: Comment on above: Expected: 03/11/2022, Expires: 2 Start: 03-04-2022 End: 05-04-2022 Prostate specific Ag [Mass/volume] in Serum or Plasma PSA/PROSTSPECAG DIAG Lab Routine Enlarged prostate Expected: 03/04/2022, Expires: 05/04/2022 [facility] Work Phone: Comment on above: Expected: 03/04/2022, Expires: 2 Start: 02-25-2022 COVID-19 VACCINE (5 - Booster for Moderna series) COVID-19 VACCINE (5 - Booster for Moderna series) [facility] Start: 02-09-2022 End: 04-11-2022 C reactive protein [Mass/volume] in Serum or Plasma [facility] Work Phone: Comment on above: Expected: 02/09/2022, Expires: 2 Start: 02-09-2022 End: 04-11-2022 CBC W Auto Differential panel - Blood [facility] Work Phone: Comment on above: Expected: 02/09/2022, Expires: 2 Start: 02-09-2022 End: 04-11-2022 Erythrocyte sedimentation rate [facility] Work Phone: Comment on above: Expected: 02/09/2022, Expires: 2 Start: 10-04-2021 ADVANCE DIRECTIVE DISCUSSION ADVANCE DIRECTIVE DISCUSSION [facility] Start: 10-04-2021 DEPRESSION ASSESSMENT DEPRESSION ASSESSMENT [facility] Start: 06-02-2021 COVID-19 VACCINE (3 - Booster for Moderna series) COVID-19 VACCINE (3 - Booster for Moderna series) [facility] Start: 10-24-2020 Adult depression screening assessment DEPRESSION SCREENING [facility] Start: 12-22-2019 SHINGRIX VACCINE (2 of 2) SHINGRIX VACCINE (2 of 2) [facility] Start: 2015 Fall risk assessment Falls Risk Assessment [facility] Start: 2015 Pneumococcal Vaccine: Age 65+ (1 - PCV) Pneumococcal Vaccine: Age 65+ (1 - PCV) [facility] Start: 2015 PNEUMOCOCCAL: 65+ (1 - PCV) PNEUMOCOCCAL: 65+ (1 - PCV) [facility] Start: 2015 PNEUMOVAX AGE 65 AND OVER WITH 5YR LOOKBACK (#1) PNEUMOVAX AGE 65 AND OVER WITH 5YR LOOKBACK (#1) [facility] Start: 10-04-2012 Colonoscopy COLONOSCOPY [facility] Start: 10-04-2012 COLORECTAL CANCER SCREENING COLORECTAL CANCER SCREENING [facility] Start: 10-04-2012 Screening for malignant neoplasm of colon [facility] Start: 2010 Hepatitis B Vaccine (1 of 3 - Risk 3-dose series) Hepatitis B Vaccine (1 of 3 - Risk 3-dose series) [facility] Start: 2010 RSV Vaccine (1 - 1-dose 60+ series) RSV Vaccine (1 - 1-dose 60+ series) [facility] Start: 2010 RSV Vaccine (1 - Risk 60-74 years 1-dose series) RSV Vaccine (1 - Risk 60-74 years 1-dose series) [facility] Start: 2000 Administration of herpes zoster vaccine Zoster Vaccines (1 of 2) [facility] Start: 2000 Screening for malignant neoplasm of colon Flexible sigmoidoscopy [facility] Start: 1995 COLOGUARD (FIT-DNA) COLOGUARD (FIT-DNA) [facility] Start: [address] COLONOGRAPHY [facility] Start: 1995 FECAL OCCULT BLOOD FECAL OCCULT BLOOD [facility] Start: 1995 Screening for malignant neoplasm of colon [facility] Start: 1995 SIGMOIDOSCOPY SIGMOIDOSCOPY [facility] Start: 1969 Pneumococcal Vaccine: 50+ (1 of 2 - PCV) Pneumococcal Vaccine: 50+ (1 of 2 - PCV) [facility] Start: 1969 Urine microalbumin profile [facility] Start: 1968 Anxiety Screening Anxiety Screening [facility] Start: 1968 Depression Screening Depression Screening [facility] Start: 1968 Hepatitis C screening Hepatitis C Screening [facility] Start: 1962 Depression screening using PHQ-9 (Patient Health Questionnaire 9) score Depression Screening (PHQ-2/9) [facility] Start: 1960 3 comp foot exam completed DIABETIC FOOT EXAM [facility] Start: 1960 Diabetic foot examination [facility] Start: 1960 Glaucoma screening [facility] Start: 1960 Hepatitis B screening URINE ALBUMIN:CREATININE RATIO [facility] Start: 1960 Hepatitis C antibody, confirmatory test DILATED RETINAL EXAM [facility] Start: 1960 Urine screening for protein Urine Microalbumin [facility] Start: 1956 Pneumococcal Vaccine: 65+ (1 - PCV) Pneumococcal Vaccine: 65+ (1 - PCV) [facility] Start: 1956 Pneumococcal Vaccine: 65+ (1 of 2 - PCV) Pneumococcal Vaccine: 65+ (1 of 2 - PCV) [facility] Start: 1956 Pneumococcal Vaccine: Age 65+ (1 - PCV) Pneumococcal Vaccine: Age 65+ (1 - PCV) [facility] Start: 1956 Pneumococcal Vaccine: Age 65+ (1 of 2 - PCV) Pneumococcal Vaccine: Age 65+ (1 of 2 - PCV) [facility] Start: 1956 PNEUMOCOCCAL: 65+ (1 - PCV) PNEUMOCOCCAL: 65+ (1 - PCV) [facility] Start: 1953 History and physical examination, annual for health maintenance Wellness Visit [facility] Start: 1950 ABDOMINAL AORTIC ANEURYSM SCREENING ABDOMINAL AORTIC ANEURYSM SCREENING [facility] Start: 1950 Abdominal aortic aneurysm screening Abdominal Aortic Aneurysm Screening [facility] Start: 1950 Prostate specific antigen measurement PSA Level [facility] Start: 1950 Screening for malignant neoplasm of colon [facility] Start: 1950 Tetanus vaccination Tetanus: Every 10yrs [facility] Bacteria identified in Sputum by Culture [facility] CARDIAC REHAB II OUT PT ([place], [place]) CARDIAC REHAB II OUTPT ([place], [place]) BIC Routine S/P CABG x 2 Ordered: 11/03/2022 [facility] Work Phone: Comment on above: Ordered: 11/03/2022 CBC W Auto Different ial panel - Blood [facility] End: 03-11-2023 Ct abdomen & pelvis w/o contrast material CT ABD/PEL WO IVCON Radiology Routine Right lower quadrant abdominal pain Nausea 1 Occurrences starting 02/09/2022 until 03/11/2023 [facility] Work Phone: Comment on above: 1 Occurrences starting 02/09/2022 until 03/11/2023 End: 08-26-2023 Ct pelvis w/contrast material CT PELVIS W IVCON Radiology Routine Prostate cancer (HCC) 1 Occurrences starting 07/27/2022 until 08/26/2023 [facility] Work Phone: Comment on above: 1 Occurrences starting 07/27/2022 until 08/26/2023 End: 08-28-2023 Ct pelvis w/contrast material CT PELVIS W IVCON Radiology Routine Localized enlarged lymph nodes 1 Occurrences starting 07/29/2022 until 08/28/2023 [facility] Work Phone: Comment on above: 1 Occurrences starting 07/29/2022 until 08/28/2023 End: 07-23-2023 Ct thorax w/o contrast material CT CHEST WO IVCON Radiology Routine Chest pain due to myocardial ischemia, unspecified ischemic chest pain type 1 Occurrences starting 06/23/2022 until 07/23/2023 [facility] Work Phone: Comment on above: 1 Occurrences starting 06/23/2022 until 07/23/2023 End: 04-03-2024 Ct thorax w/o contrast material CT CHEST WO IVCON Radiology Routine Pulmonary nodule Lung nodules 1 Occurrences starting 03/05/2023 until 04/03/2024 [facility] Work Phone: Comment on above: 1 Occurrences starting 03/05/2023 until 04/03/2024 End: 11-16-2023 ECG COMPLETE ECG COMPLETE ECG Routine PAF (paroxysmal atrial fibrillation) (HCC) 1 Occurrences starting 11/16/2022 until 11/16/2023 [facility] Work Phone: Comment on above: 1 Occurrences starting 11/16/2022 until 11/16/2023 ECG COMPLETE ECG COMPLETE ECG 09/04/2024 8:45 AM EST [facility] End: 03-19-2023 Echocardiography ECHO Cardiology Routine 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) Exertional chest pain MCCOY (dyspnea on exertion) 1 Occurrences starting 03/19/2022 until 03/19/2023 [facility] Work Phone: Comment on above: 1 Occurrences starting 03/19/2022 until 03/19/2023 End: 06-18-2023 Echocardiography ECHO Cardiology Routine 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) Dyspnea on exertion Essential hypertension 1 Occurrences starting 06/18/2022 until 06/18/2023 [facility] Work Phone: Comment on above: 1 Occurrences starting 06/18/2022 until 06/18/2023 End: 09-04-2025 Echocardiography ECHO Cardiology Routine 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) 1 Occurrences starting 09/04/2024 until 09/04/2025 [facility] Comment on above: 1 Occurrences starting 09/04/2024 until 09/04/2025 End: 11-03-2023 EXERCISE STRESS ECG (WITHOUT IMAGING) EXERCISE STRESS ECG (WITHOUT IMAGING) Cardiology Routine S/P CABG x 2 1 Occurrences starting 11/03/2022 until 11/03/2023 [facility] Work Phone: Comment on above: 1 Occurrences starting 11/03/2022 until 11/03/2023 End: 06-10-2022 LEFT HEART CATHETERIZATION LEFT HEART CATHETERIZATION BIC Routine One Time for 1 Occurrences starting 06/10/2022 until 06/10/2022 [facility] Work Phone: Comment on above: One Time for 1 Occurrences starting 04/2022 until 06/10/2022 End: 07-23-2023 LUNG DIFFUSION CAPACITY (DLCO) LUNG DIFFUSION CAPACITY (DLCO) PFT Routine SOB (shortness of breath) 1 Occurrences starting 06/23/2022 until 07/23/2023 [facility] Work Phone: Comment on above: 1 Occurrences starting 06/23/2022 until 07/23/2023 End: 07-23-2023 LUNG VOLUMES LUNG VOLUMES PFT Routine SOB (shortness of breath) 1 Occurrences starting 06/23/2022 until 07/23/2023 [facility] Work Phone: Comment on above: 1 Occurrences starting 06/23/2022 until 07/23/2023 End: 09-04-2023 Mri pelvis w/o & w/contrast material MRI PROSTATE WO/W IVCON Radiology Routine Prostate cancer (HCC) 1 Occurrences starting 08/05/2022 until 09/04/2023 [facility] Work Phone: Comment on above: 1 Occurrences starting 08/05/2022 until 09/04/2023 End: 10-04-2025 NM Heart Perfusion W multiple states of exercise NM CARDIAC PERF STRESS/EXERCISE Radiology Routine 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) 1 Occurrences starting 09/04/2024 until 10/04/2025 [facility] Work Phone: Comment on above: 1 Occurrences starting 09/04/2024 until 10/04/2025 OUTSIDE VENDOR CARDI AC OUTPATIENT EXTENDED RHYTHM RECORDING (WITHOUT TELEMETRY) OUTSIDE VENDOR CARDIAC OUTPATIENT EXTENDED RHYTHM RECORDING (WITHOUT TELEMETRY) Holter Routine Paroxysmal atrial fibrillation (HCC) Ordered: 01/12/2023 [facility] Work Phone: Comment on above: Ordered: 01/12/2023 POST VOID RESIDUAL POST VOID RES IDUAL Procedures Routine Elevated PSA Ordered: 03/17/2022 [facility] Work Phone: Comment on above: Ordered: 03/17/2022 POST VOID RESIDUAL POST VOID RES IDUAL Procedures Routine Elevated PSA Post-void dribbling Ordered: 07/14/2022 [facility] Work Phone: Comment on above: Ordered: 07/14/2022 PROSTATE BIOPSY GUKI PROSTATE BI OPSY GUKI Procedures Routine Elevated prostate specific antigen (PSA) Ordered: 03/24/2022 [facility] Work Phone: Comment on above: Ordered: 03/24/2022 Prostate Specific Ag Free [Mass/volume] in Serum or Plasma PSA FREE Lab Routine Elevated PSA 03/12/2022 11:38 AM EDT [facility] Work Phone: End: 09-05-2023 Radiologic exam chest 2 views XR CHEST 2V FRONTAL/LAT Radiology Routine 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) Preoperative testing Elevated PSA Type 2 diabetes mellitus without complication, without long-term current use of insulin (HCC) 1 Occurrences starting 08/06/2022 until 09/05/2023 [facility] Work Phone: Comment on above: 1 Occurrences starting 08/06/2022 until 09/05/2023 End: 12-02-2023 Radiologic exam chest 2 views XR CHEST 2V FRONTAL/LAT Radiology Routine S/P CABG x 2 1 Occurrences starting 11/03/2022 until 12/02/2023 [facility] Work Phone: Comment on above: 1 Occurrences starting 11/03/2022 until 12/02/2023 RED BLOOD CELLS, ADULT RED BLOOD CELLS, ADULT Blood Bank Routine 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) Preoperative testing Elevated PSA Type 2 diabetes mellitus without complication, without long-term current use of insulin (HCC) 1 Occurrences starting 08/06/2022 [facility] Work Phone: Comment on above: 1 Occurrences starting 08/06/2022 End: 08-12-2023 Screening colonoscopy COLONOSCOPY SCREENING Endoscopy Routine Screening for colon cancer 1 Occurrences starting 08/12/2022 until 08/12/2023 [facility] Work Phone: Comment on above: 1 Occurrences starting 08/12/2022 until 08/12/2023 End: 06-26-2025 Screening colonoscopy COLONOSCOPY SCREENING Endoscopy Routine History of colonic polyps Screening for colon cancer 1 Occurrences starting 06/26/2024 until 06/26/2025 [facility] Work Phone: Comment on above: 1 Occurrences starting 06/26/2024 until 06/26/2025 End: 06-27-2025 Screening colonoscopy COLONOSCOPY SCREENING Endoscopy Routine History of colonic polyps Screening for colon cancer 1 Occurrences starting 06/27/2024 until 06/27/2025 [facility] Comment on above: 1 Occurrences starting 06/27/2024 until 06/27/2025 End: 07-23-2023 SPIROMETRY BASELINE ONLY SPIROMETRY BASELINE ONLY PFT Routine SOB (shortness of breath) 1 Occurrences starting 06/23/2022 until 07/23/2023 [facility] Work Phone: Comment on above: 1 Occurrences starting 06/23/2022 until 07/23/2023 SURGICAL PATHOLOGY SURGICAL PATH OLOGY Lab Routine Elevated prostate specific antigen (PSA) Ordered: 07/14/2022 [facility] Work Phone: Comment on above: Ordered: 07/14/2022 SURGICAL PATHOLOGY [facility] Work Phone: Comment on above: Release Upon Ordering for 1 Occurrences starting 07/19/2024, 1 completed End: 08-11-2025 US Abdominal Aorta US ABD AORTA Radiology Routine Abdominal aortic aneurysm (AAA) without rupture, unspecified part (HCC) 1 Occurrences starting 07/12/2024 until 08/11/2025 [facility] Work Phone: Comment on above: 1 Occurrences starting 07/12/2024 until 08/11/2025 US Abdominal Aorta US ABD AORTA Radiology Routine Abdominal aortic aneurysm (AAA) without rupture, unspecified part (HCC) 07/20/2024 4:10 PM EDT [facility] Work Phone: End: 06-23-2023 US CAROTID ARTERIES [facility] US CAROTID ARTERIES [facility] Vascular Lab Routine Chest pain due to myocardial ischemia, unspecified ischemic chest pain type 1 Occurrences starting 06/23/2022 until 06/23/2023 [facility] Work Phone: Comment on above: 1 Occurrences starting 06/23/2022 until 06/23/2023 US CYSTO/TRUS BIOPSY (POC) GUKI USE ONLY US CYSTO/TRUS BIOPSY (POC) GUKI USE ONLY Imaging Procedures Routine Elevated prostate specific antigen (PSA) Ordered: 07/14/2022 [facility] Work Phone: Comment on above: Ordered: 07/14/2022 End: 04-03-2024 US HEAD/NECK SOFT TISSUE OTHER US HEAD/NECK SOFT TISSUE OTHER Radiology Routine Neck pain 1 Occurrences starting 03/05/2023 until 04/03/2024 [facility] Work Phone: Comment on above: 1 Occurrences starting 03/05/2023 until 04/03/2024 End: 02-08-2025 XR HIP BILATERAL 5V PEL/AP/LAT EACH HIP XR HIP BILATERAL 5V PEL/AP/LAT EACH HIP Radiology Routine Bilateral hip pain 1 Occurrences starting 01/10/2024 until 02/08/2025 [facility] Work Phone: Comment on above: 1 Occurrences starting 01/10/2024 until 02/08/2025 XR HIP BILATERAL 5V PEL/AP/LAT EACH HIP XR HIP BILATERAL 5V PEL/AP/LAT EACH HIP Radiology Routine Bilateral hip pain 01/10/2024 11:32 AM EDT [facility] Work Phone: End: 07-12-2025 XR Wrist - right PA and Lateral and Oblique XR WRIST GENERAL 3V PA/LAT/OBL RIGHT Radiology Routine Right wrist pain 1 Occurrences starting 06/12/2024 until 07/12/2025 [facility] Work Phone: Comment on above: 1 Occurrences starting 06/12/2024 until 07/12/2025 XR Wrist - right PA and Lateral and Oblique XR WRIST GENERAL 3V PA/LAT/OBL RIGHT Radiology Routine Right wrist pain 06/12/2024 5:52 PM EDT [facility] Immunizations Immunization Date Immunization Notes Care Provider Luis holcomb 06-23-2024 COVID-19 vaccine, ag e 12+ yr (PFIZER-[employer]) Robson Robertson APRN.TECHNICAL SUPPORT CONSULTANT Work Phone: [facility] 06-23-2024 influenza, high dose seasonal, preservative-free Robsno Robertson APRN.TECHNICAL SUPPORT CONSULTANT Work Phone: [facility] 06-23-2024 influenza virus vaccine, unspecified formulation Zane David [facility] 12-31-2021 COVID-19 original vaccine, full dose, monovalent (MODERNA) Cali Cordero MD Work Phone: [facility] 12-03-2021 COVID-19 original vaccine, full dose, monovalent (MODERNA) Cali Cordero MD Work Phone: [facility] 12-31-2020 COVID-19 vaccine, fu ll dose (MODERNA) Robson Robertson APRN.TECHNICAL SUPPORT CONSULTANT Work Phone: [facility] Work Phone: 12-03-2020 COVID-19 vaccine, fu ll dose (MODERNA) Robson Robertson APRN.TECHNICAL SUPPORT CONSULTANT Work Phone: [facility] Work Phone: 08-04-2019 influenza virus vaccine, unspecified formulation [facility] [place] Work Phone: [facility] 08-02-2017 AS03 adjuvant Robson FLETCHER RN.TECHNICAL SUPPORT CONSULTANT Work Phone: [facility] Work Phone: Payers Date Payer Category Payer Self-pay [id number] 2023 Medicare (Managed Care) [employer] [id number] 2023 Private Health Insurance [id number] 2023 Medicare [id number] 2022 Medicare [id number] 2022 Private Health Insurance [id number] 2022 Unknown [id number] 2021 Medicare [facility] AARP MEDICAR E [facility] AARP MEDICARE PPO [id number] 2021-Present [phone] [address] [address] [place] [address] PPO [id number] 2016 Unknown [id number] 2015 Medicare [id number] 1950 Unknown [id number] 1950 Unknown [id number] 1950 Unknown [id number] Medicare MEDICARE A ONLY [id number] Unknown [id number] Unknown [id number] Unknown AARP MCR ADV [id number] Unknown VES VET EVAL SVCS [id number] Unknown [id number] Unknown [id number] Unknown [id number] Unknown [id number] Unknown [id number] Unknown [id number] Unknown [id number] Unknown [id number] Unknown [id number] Unknown [id number] Unknown [id number] Social History Date Type Detail Facility Start: 10-27-2019 End: 06-29-2022 Tobacco smoking status NHIS Ex-smoker [facility] Work Phone: End: 10-27-2011 History of tobacco use Current smoker [facility] Work Phone: Start: 10-27-2019 End: 06-12-2024 Tobacco use and exposure Smokeless tobacco non-user [facility] Work Phone: Start: 02-09-2022 End: 05-31-2025 Alcohol intake Current drinker of alcohol (finding) [facility] Start: 01-06-2022 End: 12-11-2022 History SDOH Alcohol Frequency 2 [facility] Start: 01-06-2022 End: 12-11-2022 History SDOH Alcohol Std Drinks 1 [facility] Start: 01-09-2014 History SDOH Alcohol Comment 1 beer in the evening [facility] Start: 01-06-2022 History SDOH Social Connections Phone 3 [facility] Start: 01-06-2022 History SDOH Social Connections Meetings 98 [facility] Start: 01-06-2022 History SDOH Physical Activity DPW 5 [facility] Start: 12-11-2019 End: 12-11-2022 History SDOH Financial 4 [facility] Start: 12-11-2019 End: 12-11-2022 Education 15 [facility] Start: 1950 Sex Assigned At Male [facility] Start: 12-27-2021 End: 08-18-2022 Exposure to SARS-CoV-2 (event) Not sure [facility] Work Phone: Start: 08-25-2023 End: 10-27-2011 History of tobacco use Cigarette Smoker [facility] Work Phone: Start: 07-14-2022 Alcohol Comment 1 beer in the evening occasionally [facility] Start: 10-08-2022 End: 09-24-2023 Tobacco smoking status NHIS Unknown if ever smoked [facility] Start: 10-25-2019 None [facility] Start: 10-25-2019 Alone [facility] Start: 12-11-2022 End: 02-18-2023 History of Social function [facility] Start: 12-11-2022 End: 02-18-2023 Social connection and isolation panel [facility] Start: 09-04-2012 Frequency of Communication with Friends and Family Not on file [facility] Work Phone: Do you belong to any clubs or organizations such as baptist groups, unions, fraternal or athletic groups, or school groups? No [facility] How often to you hav e a drink containing alcohol? Monthly or less [facility] How many standard dr inks containing alcohol do you have on a typical day? 1 or 2 [facility] How often do you hav e 6 or more drinks on 1 occasion? Never [facility] How hard is it for y ou to pay for the very basics like food, housing, medical care, and heating Not very hard [facility] Do you feel stress - tense, restless, nervous, or anxious, or unable to sleep at night because your mind is troubled all the time - these days [OSQ] Not at all [facility] (I/We) worried robe er (my/our) food would run out before (I/we) got money to buy more. Never true [facility] Start: 10-24-2019 Gender identity Identifies as male gender (finding) [facility] Start: 10-24-2019 Sexual orientation Heterosexual (finding) [facility] Start: 07-13-2023 Tobacco smoking status NHIS Never smoked tobacco [facility] Start: 07-13-2023 End: 02-21-2024 Alcohol intake Ex-drinker (finding) [facility] Start: 1950 Sex Assigned At Not on file [facility] Are you now , , , , never or living with a partner? [facility] Start: 08-25-2023 End: 06-12-2024 Tobacco smoking status NHIS Smokes tobacco daily [facility] Start: 09-02-2023 Tobacco Comment Resumed last week after the of his spouse [facility] Are you now , , , , never or living with a partner? [facility] Do you feel stress - tense, restless, nervous, or anxious, or unable to sleep at night because your mind is troubled all the time - these days [OSQ] Rather much [facility] Do you feel stress - tense, restless, nervous, or anxious, or unable to sleep at night because your mind is troubled all the time - these days [OSQ] To some extent [facility] Medical Equipment Procedure Code Equipment Code Equipment Origin al Text Equipment Identifier Dates Low Profile Ster nal X-Plate 8 Holes [id number] Start: 10-16-2022 SEALANT,FLOSEAL HEMOSTATIC 5ML FDA Start: 12-17-2017 SEALANT,FLOSEAL HEMOSTATIC 5ML FDA Start: 12-17-2017 SEALANT,FLOSEAL HEMOSTATIC 5ML FDA Start: 12-17-2017 SEALANT,FLOSEAL HEMOSTATIC 5ML FDA Start: 12-17-2017 SEALANT,FLOSEAL HEMOSTATIC 5ML FDA Start: 12-17-2017 SEALANT,FLOSEAL HEMOSTATIC 5ML FDA Start: 12-17-2017 SEALANT,FLOSEAL HEMOSTATIC 5ML FDA Start: 12-17-2017 SEALANT,FLOSEAL HEMOSTATIC 5ML FDA Start: 12-17-2017 Goals Date Patient Goal Desired Activity /State Personal health goal Functional Status Date Assessment Result Facility 05-14-2025 Total score [AUDIT-C] 1 05/14/20 9:58 AM EDT User, Luz [facility] 05-14-2025 How often to you hav e a drink containing alcohol? Monthly or less 05/14/2025 9:58 AM EDT User, Kathiat Monthly or less [facility] 05-14-[address] inks containing alcohol do you have on a typical day? 1 or 2 05/14/2025 9:58 AM EDT User, Luz 1 or 2 [facility] 05-14-2025 How often do you hav e 6 or more drinks on 1 occasion? Never 05/14/2025 9:58 AM EDT User, Luz Never [facility] 10-23-2022 Are you deaf, or do you have serious difficulty hearing No 10/23/2022 11:23 AM Yuko Barnes RN No [facility] 10-23-2022 Are you blind, or do you have serious difficulty seeing, even when wearing glasses No 10/23/2022 11:23 AM Yuko Barnes RN No [facility] 10-23-2022 Do you have serious difficulty walking or climbing stairs No 10/23/2022 11:23 AM Yuko Barnes, CHILANGO No [facility] 10-23-2022 Do you have difficul ty dressing or bathing No 10/23/2022 11:23 AM Yuko Barnes, CHILANGO No [facility] 10-23-2022 Because of a physica l, mental, or emotional condition, do you have difficulty doing errands alone such as visiting a physician's office or shopping No 10/23/2022 11:23 AM Yuko Barnes, CHILANGO No [facility] Mental Status Date Assessment Result Facility 10-23-2022 Because of a physica l, mental, or emotional condition, do you have serious difficulty concentrating, remembering, or making decisions No 10/23/2022 11:23 AM Yuko Barnes, CHILANGO No [facility] Clinical Notes 01-29-2020 to 08-13-2025 Addendum Note - Charley Melton APRN.TECHNICAL SUPPORT CONSULTANT - 06/06/2025 5:19 PM EDTAddendum Note - Charley Melton APRN.[facility] - 06/06/2025 5:19 PM EDTAddendum Note - Rafy De Jesus RN - 06/06/2025 5:03 PM EDT Note Date & Type Note Facility 08-13-2025 Note HNO ID: [id number] Author: ANGELITA PASCAL MA Service: ? Author Type: Covering And Lining Supervisor Type: Progress Notes Filed: 08/13/2025 14:04 Note Text: POPULATION HEALTH NAVIGATION OUTREACH Action/ [employer] [facility] 11.4.25 Discuss/Due for: Schedule 2024 Medicare Wellness, Dilated Retinal Exam, Colorectal Cancer Screening, Influenza Vaccination was postponed to 04/02/2026 Outcome: Reviewed EMR /Care Everywhere - no recent Dilated Retinal Exam found for 2024 - patient outreach encounter last completed on 08/07/2025 by Angelita Haq Reason for Outreach Deep Dive Chart Review only Navigation Signature: Angelita Pascal MA August 13, 2025 1:58 PM [facility] 08-13-2025 Note Patient Outreach (NE TNBRIGIDA) DENTON WESLEY ([id number]) 1950 M Date Time Provider Department 08/13/25 ANGELITA PASCLA During your visit today, we recorded the following information about you: Angelita Pascal MA 08/13/2025 2:04 PM Signed POPULATION HEALTH NAVIGATION OUTREACH Action/FYI [employer] [facility] 08.07.25 Discuss/Due for: Schedule 2024 Medicare Wellness, Dilated Retinal Exam, Colorectal Cancer Screening, Influenza Vaccination was postponed to 04/02/2026 Outcome: Reviewed EMR /Care Everywhere - no recent Dilated Retinal Exam found for 2024 - patient outreach encounter last completed on 08/07/2025 by Angelita Singh Pss Reason for Outreach Deep Dive Chart Review only Navigation Signature: Angelita Pascal MA August 13, 2025 1:58 PM Allergies As of Date: 08/13/2025 Noted Allergy Reaction GEMFIBROZIL 09/25/2019 5 - Intolerance ROSUVASTATIN 09/25/2019 5 - Intolerance SIMVASTATIN 09/25/2019 5 - Intolerance IMDUR (ISOSORBIDE) 03/05/2022 5 - Intolerance Comments: Headaches, upset stomach, fatigue MOUNJARO (TIRZEPATIDE) 05/02/2025 8 - GI Upset Comments: intolerabe GI upset and worsened nocturnal emesis (at starting dose of 2.5 mg/week) OZEMPIC (SEMAGLUTIDE) 05/02/2025 8 - GI Upset PENICILLINS 02/10/2007 5 - Intolerance Comments: passed out and felt like I had the flu Pt states he's no longer allergic to this, he's taken tests w/out issues. PRAVASTATIN 08/07/2021 17 - Myalgia Date Reviewed: 08/07/2025 Reviewed by: Saray Morales OCCA - Fully Assessed Reason for Visit: Population Health Navigation Outreach [3910] Cmt: [employer] [facility] .01.26 Prescriptions as of 08/13/2025 - nitroglycerin sublingual (NITROQUICK) 0.4 mg SL tablet Dissolve 1 tablet under the tongue every 5 minutes as needed. - lansoprazole (PREVACID) 30 mg capsule Take 1 capsule by mouth daily before breakfast. 1/2 hr before meal. - albuterol HFA (PROVENTIL HFA, VENTOLIN HFA) 90 mcg/actuation inhaler Inhale 2 puffs as instructed every 4 hours as needed for wheezing/shortness of breath. - apixaban (ELIQUIS) 5 mg tab(s) Take 1 tablet by mouth two times a day. - evolocumab (REPATHA SURECLICK) 140 mg/mL pen injector Inject 140 mg subcutaneously every 2 weeks. - losartan (COZAAR) 100 mg tablet Take 1 tablet by mouth once daily. - aspirin, enteric coated (ECOTRIN LOW STRENGTH) 81 mg EC tablet Take 1 tablet by mouth once daily. - guaiFENesin (MUCINEX) 600 mg 12 hr tablet Take 1 tablet by mouth twice daily as needed for cold/allergy symptoms. - loratadine (CLARITIN) 10 mg tablet Take 1 tablet by mouth once daily. - ADVAIR DISKUS 500-50 mcg/dose dsdv INHALE 1 (ONE) puff EVERY 12 HOURS Problem List As Of Date 08/13/2025 Noted Resolved SUBCUTANEOUS NODULES [R22.9] 02/21/2007 Dark urine [R82.998] 10/05/2013 Abdominal pain, other specified site [R10.9] Elevated glucose [R73.09] 01/29/2020 Coronary artery disease of nome artery of kevin*01/29/2020 Mixed hyperlipidemia [E78.2] 01/29/2020 Essential hypertension [I10] 01/29/2020 S/P right coronary artery (RCA) stent placement*06/24/2021 Pure hypercholesterolemia [E78.00] 08/13/2021 Elevated PSA [R97.20] 03/11/2022 Stable angina (HCC) [I20.89] 06/10/2022 Dyspnea on exertion [R06.09] 06/10/2022 S/P CABG x 2 [Z95.1] 10/16/2022 Type 2 diabetes mellitus without complication, *12/11/2022 History of prostate cancer [Z85.46] 07/30/2023 Postoperative atrial fibrillation (HCC) [I97.89*11/25/2023 Bilateral hip pain [M25.551, M25.552] 02/08/2024 History of colonic polyps [Z86.0100] 07/19/2024 DM type 2 with diabetic mixed hyperlipidemia (H*03/12/2025 Obesity, Class I, BMI 30-34.9 [E66.811] 03/12/2025 Prostate cancer (HCC) [C61] 06/20/2025 Encounter Status:Closed by ANGELITA PASCAL on 08/13/25 [facility] 08-07-2025 Note HNO ID: [id number] Author: ?, ?, ? Service: ? Author Type: ? Type: Progress Notes Filed: 08/07/2025 13:24 Note Text: POPULATION HEALTH NAVIGATION OUTREACH Action/FYI Patient outreach forf HM due; White, AIDAN, AWV Sent mcm to schedule Reason for Outreach Care Gap/HCC or Scheduling Wellness Visits Care Gaps due: Medicare Annual Wellness Visit Colorectal Cancer Screening Diabetic Eye Exam Patient Contacted: Unable or unnecessary to reach patient: ADmantX message sent Navigation Signature: Angelita Singh [facility] August 07, 2025 1:22 PM [facility] 08-07-2025 Note HNO ID: [id number] Author: MORIAH ARREAGA, DO Service: ? Author Type: Physician Type: Progress Notes Filed: 08/07/2025 10:47 Note Text: [facility] [place] DEPARTMENT OF VASCULAR SURGERY OUTPATIENT VISIT DATE August 07, 2025 OUTPATIENT VISIT TYPE ESTABLISHED SERVICE DATE: 08/07/2025 SERVICE TIME: 10:09 AM PRIMARY CARE PHYSICIAN: Cali Cordero MD HISTORY OF PRESENT ILLNESS: Mr. Wesley is a 75 year old male who presents today for a vascular surgery follow-up visit for aortic duplex. He denies new complaints. He does report bilateral lower extremity hip fatigue with ambulation. PAST MEDICAL HISTORY Diagnosis Date Abdominal aortic aneurysm (AAA) Abdominal pain, other specified site Asthma (HCC) Awareness under anesthesia CAD (coronary artery disease) Cholelithiasis 09/25/2013 Colitis Diabetes mellitus (HCC) type 2 diet controlled Elevated prostate specific antigen (PSA) Esophageal reflux Gastroesophageal reflux Hypertension Impotence of organic origin Impotence Nocturia SUJEY (obstructive sleep apnea) Post-void dribbling Prostate cancer (HCC) RUQ abdominal pain 09/25/2013 PAST SURGICAL HISTORY Procedure Laterality Date CABG (2) VEIN GRAFTS AND ARTERIAL GRAFT(S 10/16/2022 COLONOSCOPY FLX DX W/COLLJ SPEC WHEN PFRMD Colonoscopy Dr. Ferreira ESOPHAGOGASTRODUODENOSCOPY TRANSORAL DIAGNOSTIC EGD Dr. Ferreira LAPAROSCOPY SURG CHOLECYSTECTOMY 09/25/2013 PAST SURGICAL HISTORY OF IANDD left hand PAST SURGICAL HISTORY OF Removal cyst on back PROSTATE BIOPSY GUKI 07/14/2022 STENT PLACEMENT 4 Stents SOCIAL HISTORY SOCIAL HISTORY[1] MEDICATIONS: nitroglycerin sublingual (NITROQUICK) 0.4 mg SL tablet Dissolve 1 tablet under the tongue every 5 minutes as needed. lansoprazole (PREVACID) 30 mg capsule Take 1 capsule by mouth daily before breakfast. 1/2 hr before meal. albuterol HFA (PROVENTIL HFA, VENTOLIN HFA) 90 mcg/actuation inhaler Inhale 2 puffs as instructed every 4 hours as needed for wheezing/shortness of breath. apixaban (ELIQUIS) 5 mg tab(s) Take 1 tablet by mouth two times a day. evolocumab (REPATHA SURECLICK) 140 mg/mL pen injector Inject 140 mg subcutaneously every 2 weeks. losartan (COZAAR) 100 mg tablet Take 1 tablet by mouth once daily. aspirin, enteric coated (ECOTRIN LOW STRENGTH) 81 mg EC tablet Take 1 tablet by mouth once daily. guaiFENesin (MUCINEX) 600 mg 12 hr tablet Take 1 tablet by mouth twice daily as needed for cold/allergy symptoms. loratadine (CLARITIN) 10 mg tablet Take 1 tablet by mouth once daily. ADVAIR DISKUS 500-50 mcg/dose dsdv INHALE 1 (ONE) puff EVERY 12 HOURS ALLERGIES: ALLERGIES Allergen Reactions Gemfibrozil Intolerance Rosuvastatin Intolerance Simvastatin Intolerance Imdur [Isosorbide] Intolerance Headaches, upset stomach, fatigue Mounjaro [Tirzepati* GI Upset intolerabe GI upset and worsened nocturnal emesis (at starting dose of 2.5 mg/week) Ozempic [Semaglutid* GI Upset Penicillins Intolerance passed out and felt like I had the flu Pt states he's no longer allergic to this, he's taken tests w/out issues. Pravastatin Myalgia PHYSICAL EXAM: BP 173/80 (BP Site: Right Arm, BP Position: Sitting, BP Cuff Size: Large Adult) Pulse 63 SpO2 99% Gen- no distress Abd- non-distended, non-tender Ext- trace edema, non-palpable pt, warm, well perfused Diagnostic tests reviewed for today's visit: Most recent labs Most recent imaging Aortic Duplex AORTA Abdominal aortic aneurysm measuring 3.2 x 3.0 cm at level of the renals. Abdominal aortic aneurysm measuring 3.2 x 2.9 cm at mid. Aorta plaque noted without evidence of hemodynamically significant stenosis mid to distal. RIGHT VESSELS Common iliac artery plaque noted without evidence of hemodynamically significant stenosis origin to proximal. Common iliac artery not visualized mid to distal. External iliac artery is patent at mid. Internal iliac artery not visualized . LEFT VESSELS Common iliac artery plaque noted without evidence of hemodynamically significant stenosis throughout. External iliac artery is patent . Internal iliac artery not visualized . IMPRESSION: Mr. Wesley is a 75 year old male with small AAA, claudication . PLAN and RECOMMENDATIONS: Reviewed findings with patient Continue blood pressure control, continue current medications He has intolerance to statins Recommend follow up in one year with repeat duplex and PVRs SIGNATURE: Moriah Arreaga DO PATIENT NAME: Denton Wesley DATE: August 07, 2025 TIME: 10:09 AM [1] Social History Tobacco Use Smoking status: Every Day Current packs/day: 0.25 Average packs/day: 0.3 packs/day for 2.0 years (0.5 ttl pk-yrs) Types: Cigarettes Start date: 08/25/2023 Smokeless tobacco: Never Tobacco comments: Resumed last week after the of his spouse Vaping Use Vaping status: Never Used (more content not included)... [facility] 08-07-2025 Note Patient Outreach (ISIAH TNAV) DENTON WESLEY ([id number]) 1950 M Date Time Provider Department 08/07/25 CALI CORDERO During your visit today, we recorded the following information about you: Francisco HaqAngelita 08/07/2025 1:24 PM Signed POPULATION HEALTH NAVIGATION OUTREACH Action/FYI Patient outreach forf due; White, AIDAN, AWV Sent mcm to schedule Reason for Outreach Care Gap/HCC or Scheduling Wellness Visits Care Gaps due: Medicare Annual Wellness Visit Colorectal Cancer Screening Diabetic Eye Exam Patient Contacted: Unable or unnecessary to reach patient: Splithart message sent Navigation Signature: Angelita Singh Eun August 07, 2025 1:22 PM Allergies As of Date: 08/07/2025 Noted Allergy Reaction GEMFIBROZIL 09/25/2019 5 - Intolerance ROSUVASTATIN 09/25/2019 5 - Intolerance SIMVASTATIN 09/25/2019 5 - Intolerance IMDUR (ISOSORBIDE) 03/05/2022 5 - Intolerance Comments: Headaches, upset stomach, fatigue MOUNJARO (TIRZEPATIDE) 05/02/2025 8 - GI Upset Comments: intolerabe GI upset and worsened nocturnal emesis (at starting dose of 2.5 mg/week) OZEMPIC (SEMAGLUTIDE) 05/02/2025 8 - GI Upset PENICILLINS 02/10/2007 5 - Intolerance Comments: passed out and felt like I had the flu Pt states he's no longer allergic to this, he's taken tests w/out issues. PRAVASTATIN 08/07/2021 17 - Myalgia Date Reviewed: 08/07/2025 Reviewed by: Saray Morales OCCA - Fully Assessed Reason for Visit: Population Health Navigation Outreach [3910] Cmt: Rafaela Owens Prescriptions as of 08/07/2025 - nitroglycerin sublingual (NITROQUICK) 0.4 mg SL tablet Dissolve 1 tablet under the tongue every 5 minutes as needed. - lansoprazole (PREVACID) 30 mg capsule Take 1 capsule by mouth daily before breakfast. 1/2 hr before meal. - albuterol HFA (PROVENTIL HFA, VENTOLIN HFA) 90 mcg/actuation inhaler Inhale 2 puffs as instructed every 4 hours as needed for wheezing/shortness of breath. - apixaban (ELIQUIS) 5 mg tab(s) Take 1 tablet by mouth two times a day. - evolocumab (REPATHA SURECLICK) 140 mg/mL pen injector Inject 140 mg subcutaneously every 2 weeks. - losartan (COZAAR) 100 mg tablet Take 1 tablet by mouth once daily. - aspirin, enteric coated (ECOTRIN LOW STRENGTH) 81 mg EC tablet Take 1 tablet by mouth once daily. - guaiFENesin (MUCINEX) 600 mg 12 hr tablet Take 1 tablet by mouth twice daily as needed for cold/allergy symptoms. - loratadine (CLARITIN) 10 mg tablet Take 1 tablet by mouth once daily. - ADVAIR DISKUS 500-50 mcg/dose dsdv INHALE 1 (ONE) puff EVERY 12 HOURS Problem List As Of Date 08/07/2025 Noted Resolved SUBCUTANEOUS NODULES [R22.9] 02/21/2007 Dark urine [R82.998] 10/05/2013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 not make any changes to your medication until we have more information. - At your next appointment, please bring one of your blood pressure machines so we can compare its readings to ours and ensure accuracy. We discussed your vitamin D levels: - Your vitamin D levels were very low in January of last year. Please restart a vitamin D3 supplement (without a multivitamin) to address this. You mentioned you may already have some at home. We discussed your cholesterol: - Your cholesterol was last checked in June and was at a good level (67). No further testing is needed at this time. We will recheck your cholesterol at your next visit. Follow-up: - Schedule a follow-up appointment in [address] Marin, one of our cardiologists. - At your next visit, we will also recheck your cholesterol levels. Please contact us if your symptoms worsen or if you have any new concerns. Angelita Max APRN.[facility]NY documented in this encounter [facility] 05-31-2025 Note HNO ID: [id number] Author: ANGELITA MAX APRN.CNP Service: ? Author Type: Nurse Practitioner Type: Progress Notes Filed: 05/31/2025 14:04 Note Text: [facility] [place] Vickie Soto Department of Cardiovascular Medicine SECTION OF CLINICAL CARDIOLOGY OUTPATIENT VISIT DATE May 31, 2025 OUTPATIENT VISIT TYPE ESTABLISHED PRIMARY CARE PHYSICIAN: Cali Cordero [address] [place] [address] REFERRING PHYSICIAN: No referring provider defined for this encounter. CHIEF COMPLAINT: Follow Up (C/o some chest pain vs nerve pain in left neck last two days/C/o being off balance/C/o some edema/VERONICA 12/15/24 Rust /Stress 11/20/23/Echo 09/19/24/EKG 09/04/24/ZIO 01/29/23 ) HISTORY OF PRESENT ILLNESS: Mr. eWsley is a 74 year old male withhistory of CAD, S/P PCI (2015), S/P CABG x2 (10/16/22), paroxysmal atrial fibrillation, HTN, HLD, AAA, and T2DM who presents today for a cardiovascular medicine for follow up after he saw Jere Rust DNP in September. At that time he had a negative [place] scan and normal echocardiogram The patient is a 74-year-old male with a history of hypertension, hypercholesterolemia, and atrial fibrillation, presenting for evaluation of neck pain radiating to the chest. The patient reports experiencing intermittent left posterior neck pain that radiates to the lateral chest wall, particularly with movement. He describes the pain as sharp and notes that it is not constant. He believes it may be due to a pinched nerve. He denies any pain during ambulation or stair climbing. He also reports occasional lightheadedness, particularly when moving or when fatigued, but denies dyspnea. He monitors his blood pressure at home using two different devices: a wrist monitor and an upper arm cuff with a digital readout. He notes that his systolic blood pressure readings at home are often in the 160s or higher, although readings in the clinic are typically within normal limits. He underwent a stress test and echocardiogram in September, both of which were reported as normal. He discontinued vitamin D3 supplementation due to gastrointestinal upset from a multivitamin containing D3. He is not currently taking any form of vitamin D3. He is currently taking losartan, Eliquis, and a statin. He reports that the statin has been effective in managing his previously elevated cholesterol levels. Subjective PAST MEDICAL HISTORY Diagnosis Date Abdominal aortic aneurysm (AAA) Abdominal pain, other specified site Asthma (HCC) Awareness under anesthesia CAD (coronary artery disease) Cholelithiasis 09/25/2013 Colitis Diabetes mellitus (HCC) type 2 diet controlled Elevated prostate specific antigen (PSA) Esophageal reflux Gastroesophageal reflux Hypertension Impotence of organic origin Impotence Nocturia SUJEY (obstructive sleep apnea) Post-void dribbling Prostate cancer (HCC) RUQ abdominal pain 09/25/2013 PAST SURGICAL HISTORY Procedure Laterality Date CABG (2) VEIN GRAFTS AND ARTERIAL GRAFT(S 10/16/2022 COLONOSCOPY FLX DX W/COLLJ SPEC WHEN PFRMD Colonoscopy Dr. Ferreira ESOPHAGOGASTRODUODENOSCOPY TRANSORAL DIAGNOSTIC EGD Dr. Ferreira LAPAROSCOPY SURG CHOLECYSTECTOMY 09/25/2013 PAST SURGICAL HISTORY OF IANDD left hand PAST SURGICAL HISTORY OF Removal cyst on back PROSTATE BIOPSY GUKI 07/14/2022 STENT PLACEMENT 4 Stents SOCIAL HISTORY[1] FAMILY HISTORY Problem Relation Age of Onset Colon Cancer Mother Heart Mother Ovarian cancer Mother Prostate Cancer Brother Stroke Brother Emphysema Father ALLERGIES: ALLERGIES Allergen Reactions Gemfibrozil Intolerance Rosuvastatin Intolerance Simvastatin Intolerance Imdur [Isosorbide] Intolerance Headaches, upset stomach, fatigue Mounjaro [Tirzepati* GI Upset intolerabe GI upset and worsened nocturnal emesis (at starting dose of 2.5 mg/week) Ozempic [Semaglutid* GI Upset Penicillins Intolerance passed out and felt like I had the flu Pt states he's no longer allergic to this, he's taken tests w/out issues. Pravastatin Myalgia MEDICATIONS: lansoprazole (PREVACID) 30 mg capsule Take 1 capsule by mouth daily before breakfast. 1/2 hr before meal. albuterol HFA (PROVENTIL HFA, VENTOLIN HFA) 90 mcg/actuation inhaler Inhale 2 puffs as instructed every 4 hours as needed for wheezing/shortness of breath. apixaban (ELIQUIS) 5 mg tab(s) Take 1 tablet by mouth two times a day. evolocumab (REPATHA SURECLICK) 140 mg/mL pen injector Inject 140 mg subcutaneously every 2 weeks. losartan (COZAAR) 100 mg tablet Take 1 tablet by mouth once daily. aspirin, enteric coated (ECOTRIN LOW STRENGTH) 81 mg EC tablet Take 1 tablet by mouth once daily. guaiFENesin (MUCINEX) 600 mg 12 hr tablet Take 1 tablet by mouth twice daily as needed for cold/allergy symptoms. loratadine (CLARITIN) 10 mg tablet Take 1 tab (more content not included)... [facility] 05-31-2025 History of Present illness Narrative Images from the original note were not included. [facility] [place] Vickie Soto Department of Cardiovascular Medicine SECTION OF CLINICAL CARDIOLOGY OUTPATIENT VISIT DATE May 31, 2025 OUTPATIENT VISIT TYPE ESTABLISHED PRIMARY CARE PHYSICIAN: Cali Cordero [address] [place] [address] REFERRING PHYSICIAN: No referring provider defined for this encounter. CHIEF COMPLAINT: Follow Up (C/o some chest pain vs nerve pain in left neck last two days/C/o being off balance/C/o some edema/VERONICA 12/15/24 [place] /Stress 11/20/23/Echo 09/19/24/EKG 09/04/24/ZIO 01/29/23 ) HISTORY OF PRESENT ILLNESS: Mr. Wesley is a 74 year old male withhistory of CAD, S/P PCI (2015), S/P CABG x2 (10/16/22), paroxysmal atrial fibrillation, HTN, HLD, AAA, and T2DM who presents today for a cardiovascular medicine for follow up after he saw Jere Rust DNP in September. At that time he had a negative [place] scan and normal echocardiogram The patient is a 74-year-old male with a history of hypertension, hypercholesterolemia, and atrial fibrillation, presenting for evaluation of neck pain radiating to the chest. The patient reports experiencing intermittent left posterior neck pain that radiates to the lateral chest wall, particularly with movement. He describes the pain as sharp and notes that it is not constant. He believes it may be due to a pinched nerve. He denies any pain during ambulation or stair climbing. He also reports occasional lightheadedness, particularly when moving or when fatigued, but denies dyspnea. He monitors his blood pressure at home using two different devices: a wrist monitor and an upper arm cuff with a digital readout. He notes that his systolic blood pressure readings at home are often in the 160s or higher, although readings in the clinic are typically within normal limits. He underwent a stress test and echocardiogram in September, both of which were reported as normal. He discontinued vitamin D3 supplementation due to gastrointestinal upset from a multivitamin containing D3. He is not currently taking any form of vitamin D3. He is currently taking losartan, Eliquis, and a statin. He reports that the statin has been effective in managing his previously elevated cholesterol levels. Subjective PAST MEDICAL HISTORY Diagnosis Date Abdominal aortic aneurysm (AAA) Abdominal pain, other specified site Asthma (HCC) Awareness under anesthesia CAD (coronary artery disease) Cholelithiasis 09/25/2013 Colitis Diabetes mellitus (HCC) type 2 diet controlled Elevated prostate specific antigen (PSA) Esophageal reflux Gastroesophageal reflux Hypertension Impotence of organic origin Impotence Nocturia SUJEY (obstructive sleep apnea) Post-void dribbling Prostate cancer (HCC) RUQ abdominal pain 09/25/2013 PAST SURGICAL HISTORY Procedure Laterality Date CABG (2) VEIN GRAFTS & ARTERIAL GRAFT(S 10/16/2022 COLONOSCOPY FLX DX W/COLLJ SPEC WHEN PFRMD Colonoscopy Dr. Ferreira ESOPHAGOGASTRODUODENOSCOPY TRANSORAL DIAGNOSTIC EGD Dr. Ferreira LAPAROSCOPY SURG CHOLECYSTECTOMY 09/25/2013 PAST SURGICAL HISTORY OF I&D left hand PAST SURGICAL HISTORY OF Removal cyst on back PROSTATE BIOPSY GUKI 07/14/2022 STENT PLACEMENT 4 Stents SOCIAL HISTORY[1] FAMILY HISTORY Problem Relation Age of Onset Colon Cancer Mother Heart Mother Ovarian cancer Mother Prostate Cancer Brother Stroke Brother Emphysema Father ALLERGIES: ALLERGIES Allergen Reactions Gemfibrozil Intolerance Rosuvastatin Intolerance Simvastatin Intolerance Imdur [Isosorbide] Intolerance Headaches, upset stomach, fatigue Mounjaro [Tirzepati* GI Upset intolerabe GI upset and worsened nocturnal emesis (at starting dose of 2.5 mg/week) Ozempic [Semaglutid* GI Upset Penicillins Intolerance passed out and felt like I had the flu Pt states he's no longer allergic to this, he's taken tests w/out issues. Pravastatin Myalgia MEDICATIONS: lansoprazole (PREVACID) 30 mg capsule Take 1 capsule by mouth daily before breakfast. 1/2 hr before meal. albuterol HFA (PROVENTIL HFA, VENTOLIN HFA) 90 mcg/actuation inhaler Inhale 2 puffs as instructed every 4 hours as needed for wheezing/shortness of breath. apixaban (ELIQUIS) 5 mg tab(s) Take 1 tablet by mouth two times a day. evolocumab (REPATHA SURECLICK) 140 mg/mL pen injector Inject 140 mg subcutaneously every 2 weeks. losartan (COZAAR) 100 mg tablet Take 1 tablet by mouth once daily. aspirin, enteric coated (ECOTRIN LOW STRENGTH) 81 mg EC tablet Take 1 tablet by mouth once daily. guaiFENesin (MUCINEX) 600 mg 12 hr tablet Take 1 tablet by mouth twice daily as needed for cold/allergy symptoms. loratadine (CLARITIN) 10 mg tablet Take 1 tablet by mouth once daily. nitroglycerin sublingual (NITROQUICK) 0.4 mg SL tablet Dissolve 0.4 mg under the tongue every 5 minutes as needed. ADVAIR DISKUS 500-50 mcg/dose dsdv INHALE 1 (ONE) puff EVERY 12 HOURS ammonium lactate (LAC-HYDRIN) 12 % lotion Apply 1 application to affected area as needed (twice daily). (Patient not taking: Reported on 05/31/2025) Cholecalciferol, Vitamin D3, 25 mcg (1,000 unit) cap Take 25 mcg by mouth once daily. (Patient not taking: Reported on 05/31/2025) dupilumab 300 mg/2 mL subcutaneous pen injector (DUPIXENT) Inject 300 mg subcutaneously every 2 weeks. (Patient not taking: Reported on 05/31/2025) Objective PHYSICAL EXAMINATION: BP 130/66 (BP Position: Sitting) Pulse 69 Ht 182.9 cm (6') Wt 100.1 kg (220 lb 10.9 oz) SpO2 100% BMI 29.93 kg/m General: Alert & oriented, no acute distress Skin: Normal HEENT: Pupils equal, round. Oral cavity, oropharynx clear Neck: Supple, no mass. Tenderness to palpation noted. Breast: Deferred Respiratory: Clear to auscultation, bilaterally Cardiovascular: Jugular venous pressure normal. Regular rate and rhythm, normal S1 and S2, no murmurs or added sounds MSK: No joint swelling, erythema, or tenderness Extremities: No clubbing, cyanosis, or edema CARDIOVASCULAR MEDICINE TESTING: No Cardiovascular testing perfomed today. Last ECHO Result Conclusion ECHO Collected: 09/19/2024 10:15 AM (Final result) Impression: CONCLUSIONS: - Technically difficult exam due to body habitus. - Exam indication: Chest Pain - The left ventricle is normal in size. Left ventricular systolic function is normal. EF = 64 5% (2D biplane) Grade I left ventricular diastolic dysfunction. - The right ventricle is normal in size. Right ventricular systolic function is low normal. - The right atrial cavity is dilated. - Estimated right ventricular systolic pressure is likely underestimated due to a weak or incomplete tricuspid regurgitation signal and is, at least, 23 mmHg consistent with normal pulmonary artery pressures. Estimated right atrial pressure is 3 mmHg based on IVC assessment. - There are no significant valvular abnormalities. - Exam was compared with the prior echocardiographic exam performed on 06/18/2022. There is no significant change. * * * Final * * * Last EKG Result Conclusion ECG COMPLETE Collected: 09/04/2024 8:45 AM (Final result) Impression: NORMAL SINUS RHYTHM POOR R WAVE PROGRESSION Confirmed by MD DIONNA, QARAB ([id number]) on 09/06/2024 11:40:55 AM There were no tests performed for review. I personally interviewed, confirmed and edited the above information if obtained by others. Conclusion: 1. Essential (primary) hypertension (I10) 2. Dizziness and giddiness (R42) Home BP readings reportedly in the 160s or higher, though office readings are within normal limits. Lightheadedness when standing may indicate orthostatic hypotension or BP fluctuations. - Advised patient to bring home BP monitor to next visit to compare readings and ensure accuracy. - Instructed patient to check BP at home, especially when feeling lightheaded, to help determine if symptoms are related to BP fluctuations. - No changes to antihypertensive regimen at this time. - Follow-up with Dr. Marin in 6-8 months. 3. Vitamin D deficiency (E55.9) Vitamin D level was very low in January of last year; patient discontinued vitamin D supplementation due to GI upset from multivitamin. - Advised patient to resume vitamin D supplementation without multivitamin. PLAN AND RECOMMENDATIONS: We discussed your neck pain: - Your symptoms are consistent with a possible nerve issue, as the pain occurs with certain movements and deep breaths. This is less likely to be related to your heart, given your normal stress test and echocardiogram in September. - Please monitor your symptoms. If the pain becomes constant or occurs without movement, let us know immediately. We discussed your lightheadedness: - This may be related to your blood pressure dropping when you stand up. If you feel lightheaded at home, check your blood pressure at that time and record the reading. - You are currently taking Losartan for blood pressure. We will not make any changes to your medication until we have more information. - At your next appointment, please bring one of your blood pressure machines so we can compare its readings to ours and ensure accuracy. We discussed your vitamin D levels: - Your vitamin D levels were very low in January of last year. Please restart a vitamin D3 supplement (without a multivitamin) to address this. You mentioned you may already have some at home. We discussed your cholesterol: - Your cholesterol was last checked in June and was at a good level (67). No further testing is needed at this time. We will recheck your cholesterol at your next visit. Follow-up: - Schedule a follow-up appointment in [address] Marin, one of our cardiologists. - At your next visit, we will also recheck your cholesterol levels. Please contact us if your symptoms worsen or if you have any new concerns. CONTACT INFORMATION: Angelita Max APRN.[facility] Cardiology Nurse Practitioner Section of Regional Cardiology [facility] Dept of Cardiovascular Medicine [facility] [place] [address] [place] [address] Office Office This note was partially generated using Dragon voice recognition system and may contain errors related to that system including grammar, punctuation, spelling, and words that may be inappropriate [1] Social History Tobacco Use Smoking status: Every Day Current packs/day: 0.25 Average packs/day: 0.3 packs/day for 1.8 years (0.4 ttl pk-yrs) Types: Cigarettes Start date: 08/25/2023 Smokeless tobacco: Never Tobacco comments: Resumed last week after the of his spouse Vaping Use Vaping status: Never Used Substance Use Topics Alcohol use: Yes Comment: 1 beer in the evening occasionally Drug use: No documented in this encounter [facility] 05-24-2025 Telephone encounter Note Pt. was r/s for 05/31/25. [facility] 05-24-2025 Miscellaneous Notes Pt. was r/s for 05/31/25. Primary Care Pharmacy Rescheduling Outreach Call center, please contact patient and reschedule in person, telephone, and virtual visit for Diabetes management within ~4 week(s). (Visit length: 60 minutes) Thank you, Adriana Morocho PharmD, LILIANACP Primary Care Clinical Cistern Room Working Supervisor 05/24/2025 3:59 PM documented in this encounter [facility] 05-24-2025 Telephone encounter Note Primary Care Pharmacy Rescheduling Outreach Call center, please contact patient and reschedule in person, telephone, and virtual visit for Diabetes management within ~4 week(s). (Visit length: 60 minutes) Thank you, Adriana Morocho PharmD, MYRON Primary Care Clinical Cistern Room Working Supervisor 05/24/2025 3:59 PM [facility] Work Phone: 05-24-2025 Note HNO ID: [id number] Author: ?, ?, ? Service: ? Author Type: ? Type: Progress Notes Filed: 05/24/2025 11:49 Note Text: POPULATION HEALTH NAVIGATION OUTREACH Action/FYI Patient outreach for HCCs HM due; AWV LVM and sent mcm to schedule Reason for Outreach Care Gap/HCC or Scheduling Wellness Visits Care Gaps due: Medicare Annual Wellness Visit Patient Contacted: Unable or unnecessary to reach patient: Left message MyChart message sent HCC related Updated appointment notes Navigation Signature: Angelita Haq May 24, 2025 11:42 AM [facility] 05-24-2025 History of Present illness Narrative POPULATION HEALTH NAVIGATION OUTREACH Action/FYI Patient outreach for HCCs HM due; AWV LVM and sent mcm to schedule Reason for Outreach Care Gap/HCC or Scheduling Wellness Visits Care Gaps due: Medicare Annual Wellness Visit Patient Contacted: Unable or unnecessary to reach patient: Left message MyChart message sent HCC related Updated appointment notes Navigation Signature: Angelita Haq May 24, 2025 11:42 AM documented in this encounter [facility] 05-24-2025 Note Patient Outreach (NE TNAV) DENTON WESLEY ([id number]) 1950 M Date Time Provider Department 05/24/25 CALI CORDERO During your visit today, we recorded the following information about you: Angelita Gardner 05/24/2025 11:49 AM Signed POPULATION HEALTH NAVIGATION OUTREACH Action/FYI Patient outreach for HCCs HM due; AWV LVM and sent mcm to schedule Reason for Outreach Care Gap/HCC or Scheduling Wellness Visits Care Gaps due: Medicare Annual Wellness Visit Patient Contacted: Unable or unnecessary to reach patient: Left message MyChart message sent HCC related Updated appointment notes Navigation Signature: Angelita Valentinotatianaellie Pss May 24, 2025 11:42 AM Allergies As of Date: 05/24/2025 Noted Allergy Reaction GEMFIBROZIL 09/25/2019 5 - Intolerance ROSUVASTATIN 09/25/2019 5 - Intolerance SIMVASTATIN 09/25/2019 5 - Intolerance IMDUR (ISOSORBIDE) 03/05/2022 5 - Intolerance Comments: Headaches, upset stomach, fatigue MOUNJARO (TIRZEPATIDE) 05/02/2025 8 - GI Upset Comments: intolerabe GI upset and worsened nocturnal emesis (at starting dose of 2.5 mg/week) OZEMPIC (SEMAGLUTIDE) 05/02/2025 8 - GI Upset PENICILLINS 02/10/2007 5 - Intolerance Comments: passed out and felt like I had the flu Pt states he's no longer allergic to this, he's taken tests w/out issues. PRAVASTATIN 08/07/2021 17 - Myalgia Date Reviewed: 05/16/2025 Reviewed by: Melva Lozada APRN.TECHNICAL SUPPORT CONSULTANT - Fully Assessed Reason for Visit: Population Health Navigation Outreach [3910] Cmt: Rafaela Estevez Emerado Prescriptions as of 05/24/2025 - ammonium lactate (LAC-HYDRIN) 12 % lotion Apply 1 application to affected area as needed (twice daily). - Cholecalciferol, Vitamin D3, 25 mcg (1,000 unit) cap Take 25 mcg by mouth once daily. - dupilumab 300 mg/2 mL subcutaneous pen injector (DUPIXENT) Inject 300 mg subcutaneously every 2 weeks. - lansoprazole (PREVACID) 30 mg capsule Take 1 capsule by mouth daily before breakfast. 1/2 hr before meal. - albuterol HFA (PROVENTIL HFA, VENTOLIN HFA) 90 mcg/actuation inhaler Inhale 2 puffs as instructed every 4 hours as needed for wheezing/shortness of breath. - apixaban (ELIQUIS) 5 mg tab(s) Take 1 tablet by mouth two times a day. - evolocumab (REPATHA SURECLICK) 140 mg/mL pen injector Inject 140 mg subcutaneously every 2 weeks. - losartan (COZAAR) 100 mg tablet Take 1 tablet by mouth once daily. - aspirin, enteric coated (ECOTRIN LOW STRENGTH) 81 mg EC tablet Take 1 tablet by mouth once daily. - guaiFENesin (MUCINEX) 600 mg 12 hr tablet Take 1 tablet by mouth twice daily as needed for cold/allergy symptoms. - loratadine (CLARITIN) 10 mg tablet Take 1 tablet by mouth once daily. - nitroglycerin sublingual (NITROQUICK) 0.4 mg SL tablet Dissolve 0.4 mg under the tongue every 5 minutes as needed. - ADVAIR DISKUS 500-50 mcg/dose dsdv INHALE 1 (ONE) puff EVERY 12 HOURS Problem List As Of Date 05/24/2025 Noted Resolved SUBCUTANEOUS NODULES [R22.9] 02/21/2007 Dark urine [R82.998] 10/05/2013 Abdominal pain, other specified site [R10.9] Elevated glucose [R73.09] 01/29/2020 Coronary artery disease of [place] artery of [place]*01/29/2020 Mixed hyperlipidemia [E78.2] 01/29/2020 Essential hypertension [I10] 01/29/2020 S/P right coronary artery (RCA) stent placement*06/24/2021 Pure hypercholesterolemia [E78.00] 08/13/2021 Elevated PSA [R97.20] 03/11/2022 Stable angina (HCC) [I20.89] 06/10/2022 Dyspnea on exertion [R06.09] 06/10/2022 S/P CABG x 2 [Z95.1] 10/16/2022 Type 2 diabetes mellitus without complication, *12/11/2022 History of prostate cancer [Z85.46] 07/30/2023 Postoperative atrial fibrillation (HCC) [I97.89*11/25/2023 Bilateral hip pain [M25.551, M25.552] 02/08/2024 History of colonic polyps [Z86.0100] 07/19/2024 DM type 2 with diabetic mixed hyperlipidemia (H*03/12/2025 Obesity, Class I, BMI 30-34.9 [E66.811] 03/12/2025 Encounter Status:Closed by ANGELITA GARDNER on 05/24/25 [facility] 05-14-2025 Instructions Melva Lozada APRN.MANNY - 05/14/2025 2:41 PM EDT Stop at helpdesk administrator and reschedule your cardiology follow up Schedule your pharmacy medication consult...when you go to this appointment PLEASE take ALL your medications prescriptions and OTC in to the visit with them. Get your proBNP and PSA labs drawn today on way out Schedule a follow up at [facility] for diabetic retinopathy exam Get your A1C redrawn after 06/09 documented in this encounter [facility] 05-14-2025 Note HNO ID: [id number] Author: MELVA LOZADA APRN.CNP Service: ? Author Type: Nurse Practitioner Type: Progress Notes Filed: 05/16/2025 17:27 Note Text: This is a 74 year old male who presents today with: Denton Wesley is a 74-year-old male with a history of DM, HTN, asthma, and prostate cancer, presenting for follow-up. HISTORY OF PRESENT ILLNESS: Diabetes Mellitus: - Not currently on medication. He often stops medication due to symptoms but also forgets prior meds and why they were stopped - Blood glucose readings per patient: 140-150 mg/dL; one reading of 90 mg/dL. - Denies polyphagia; reports polydipsia and polyuria - Endocrinology consult years ago with Dr Rodgers but never went back (no specific reason) Hypertension: - Home BP readings: 170-180 mmHg at times Last 14 BP Last 14 Encounter BP Readings: Date: BP: 05/14/2025 140/70 03/12/2025 120/60 03/06/2025 172/70 02/20/2025 137/73 12/15/2024 142/78 11/27/2024 149/93 11/16/2024 138/80 09/06/2024 132/82 09/04/2024 150/84 08/15/2024 155/78 07/19/2024 150/70 07/19/2024 177/85 07/12/2024 123/76 06/23/2024 130/82 - Taking losartan and aspirin. - Discontinued carvedilol due to fatigue and fogging. Prostate Cancer: - Due for PSA test; last PSA in November was 0.07. - Upcoming urology appointment on the , he asks for PSA level prior to that appt Asthma: - Previously on Xolair for 6 years; discontinued due to insurance issues. - Co Pilot working on different injections. - Denies significant dyspnea; reports wheezing. Diverticulosis: - Severe attack in June. - Reports queasiness, abdominal cramps, and bloating. - Bowel movements daily, sometimes multiple times; no hematochezia. - Recent colonoscopy in July. - Denies dietary changes affecting symptoms. - denies changes in stool Todays BP he says well that's good for me He has a cardiology appointment on 05/31 Med intolerance/noncompliance Also not always sure if he knows the med you're asking if he's taking or says yes but isn't taking it, seems to be some forgetfulness when discussing medication and medical history although at times recalls several details. Feels like he's gaining weight around his abdomen, weight has actually decreased Most Recent 05/16/22 - 05/14/25 11/27/24 10:49 12/15/24 14:27 02/20/25 09:28 03/06/25 13:38 03/12/25 15:08 05/14/25 14:23 Weight 221 lb (100.2 kg) 05/14/25 14:23 230 lb (104.3 kg) 231 lb 0.7 oz (104.8 kg) 225 lb 12.8 oz (102.4 kg) 230 lb 1.9 oz (104.4 kg) 226 lb (102.5 kg) 221 lb (100.2 kg) PAST MEDICAL HISTORY: PAST MEDICAL HISTORY[1] PAST SURGICAL HISTORY Procedure Laterality Date CABG (2) VEIN GRAFTS AND ARTERIAL GRAFT(S 10/16/2022 COLONOSCOPY FLX DX W/COLLJ SPEC WHEN PFRMD Colonoscopy Dr. Ferreira ESOPHAGOGASTRODUODENOSCOPY TRANSORAL DIAGNOSTIC EGD Dr. Ferreira LAPAROSCOPY SURG CHOLECYSTECTOMY 09/25/2013 PAST SURGICAL HISTORY OF IANDD left hand PAST SURGICAL HISTORY OF Removal cyst on back PROSTATE BIOPSY GUKI 07/14/2022 STENT PLACEMENT 4 Stents ALLERGIES Gemfibrozil, Rosuvastatin, Simvastatin, Imdur [Isosorbide], Mounjaro [Tirzepatide], Ozempic [Semaglutide], Penicillins, and Pravastatin MEDICATIONS CURRENT MEDICATIONS[2] FAMILY HISTORY[3] SOCIAL HISTORY[4] REVIEW OF SYSTEMS Constitutional: (+) fatigue Respiratory: (+) wheezing, (-) shortness of breath Gastrointestinal: (+) nausea, (+) abdominal cramps, (+) abdominal fullness, (+) change in stool caliber, (-) blood in stool Genitourinary: (+) urinary frequency Musculoskeletal: (+) leg swelling Psychiatric: (+) excessive worry Endocrine: (+) polydipsia See HPI EXAM: BP 140/70 (BP Site: Left Arm, BP Position: Sitting, BP Cuff Size: Large Adult) Pulse 64 Resp 14 Wt 100.2 kg (221 lb) SpO2 98% BMI 29.97 kg/m? PHYSICAL EXAM: General Appearance: Well appearing, alert, in no acute distress, well-hydrated, well nourished.. Lungs: Lungs clear to auscultation. No wheezing, rhonchi, rales.. Heart: RRR without murmur, gallop, or rubs. No ectopy. Abdomen: distended but soft, BS normoactive, nontender Extremities: sock line edema, otherwise nonpitting ASSESSMENT/PLAN: 1. Type 2 diabetes mellitus without complication, without long-term current use of insulin (HCC) - ICD9: 250.00, ICD10: E11.9 (primary diagnosis) - Worsening control - Barriers to control: diet adherence, lack of exercise, and medication intolerance and stopping meds - Discussed diabetic education issues of diabetes complications and monitoring required, hypoglycemic/hyperglycemic symptoms, and medication-specific side effects and monitoring - HEMOGLOBIN A1C - CONSULT TO PHARMACY 2. Essential hypertension - ICD9: 401.9, ICD10: I10 - Uncontrolled - Factors affecting control: likely diet adherence and noncompliance - Recommend home blood pressure monitoring, to bring results to next visit - Encouraged sodium restrict (more content not included)... [facility] 05-14-2025 History of Present illness Narrative This is a 74 year old male who presents today with: Denton Wesley is a 74-year-old male with a history of DM, HTN, asthma, and prostate cancer, presenting for follow-up. HISTORY OF PRESENT ILLNESS: Diabetes Mellitus: - Not currently on medication. He often stops medication due to symptoms but also forgets prior meds and why they were stopped - Blood glucose readings per patient: 140-150 mg/dL; one reading of 90 mg/dL. - Denies polyphagia; reports polydipsia and polyuria - Endocrinology consult years ago with Dr Rodgers but never went back (no specific reason) Hypertension: - Home BP readings: 170-180 mmHg at times Last 14 BP Last 14 Encounter BP Readings: Date: BP: 05/14/2025 140/70 03/12/2025 120/60 03/06/2025 172/70 02/20/2025 137/73 12/15/2024 142/78 11/27/2024 149/93 11/16/2024 138/80 09/06/2024 132/82 09/04/2024 150/84 08/15/2024 155/78 07/19/2024 150/70 07/19/2024 177/85 07/12/2024 123/76 06/23/2024 130/82 - Taking losartan and aspirin. - Discontinued carvedilol due to fatigue and fogging. Prostate Cancer: - Due for PSA test; last PSA in November was 0.07. - Upcoming urology appointment on the , he asks for PSA level prior to that appt Asthma: - Previously on Xolair for 6 years; discontinued due to insurance issues. - Co Pilot working on different injections. - Denies significant dyspnea; reports wheezing. Diverticulosis: - Severe attack in June. - Reports queasiness, abdominal cramps, and bloating. - Bowel movements daily, sometimes multiple times; no hematochezia. - Recent colonoscopy in July. - Denies dietary changes affecting symptoms. - denies changes in stool Todays BP he says well that's good for me He has a cardiology appointment on 05/31 Med intolerance/noncompliance Also not always sure if he knows the med you're asking if he's taking or says yes but isn't taking it, seems to be some forgetfulness when discussing medication and medical history although at times recalls several details. Feels like he's gaining weight around his abdomen, weight has actually decreased Most Recent 05/16/22 - 05/14/25 11/27/24 10:49 12/15/24 14:27 02/20/25 09:28 03/06/25 13:38 03/12/25 15:08 05/14/25 14:23 Weight 221 lb (100.2 kg) 05/14/25 14:23 230 lb (104.3 kg) 231 lb 0.7 oz (104.8 kg) 225 lb 12.8 oz (102.4 kg) 230 lb 1.9 oz (104.4 kg) 226 lb (102.5 kg) 221 lb (100.2 kg) PAST MEDICAL HISTORY: PAST MEDICAL HISTORY[1] PAST SURGICAL HISTORY Procedure Laterality Date CABG (2) VEIN GRAFTS & ARTERIAL GRAFT(S 10/16/2022 COLONOSCOPY FLX DX W/COLLJ SPEC WHEN PFRMD Colonoscopy Dr. Ferreira ESOPHAGOGASTRODUODENOSCOPY TRANSORAL DIAGNOSTIC EGD Dr. Ferreira LAPAROSCOPY SURG CHOLECYSTECTOMY 09/25/2013 PAST SURGICAL HISTORY OF I&D left hand PAST SURGICAL HISTORY OF Removal cyst on back PROSTATE BIOPSY GUKI 07/14/2022 STENT PLACEMENT 4 Stents ALLERGIES Gemfibrozil, Rosuvastatin, Simvastatin, Imdur [Isosorbide], Mounjaro [Tirzepatide], Ozempic [Semaglutide], Penicillins, and Pravastatin MEDICATIONS CURRENT MEDICATIONS[2] FAMILY HISTORY[3] SOCIAL HISTORY[4] REVIEW OF SYSTEMS Constitutional: (+) fatigue Respiratory: (+) wheezing, (-) shortness of breath Gastrointestinal: (+) nausea, (+) abdominal cramps, (+) abdominal fullness, (+) change in stool caliber, (-) blood in stool Genitourinary: (+) urinary frequency Musculoskeletal: (+) leg swelling Psychiatric: (+) excessive worry Endocrine: (+) polydipsia See HPI EXAM: BP 140/70 (BP Site: Left Arm, BP Position: Sitting, BP Cuff Size: Large Adult) Pulse 64 Resp 14 Wt 100.2 kg (221 lb) SpO2 98% BMI 29.97 kg/m PHYSICAL EXAM: General Appearance: Well appearing, alert, in no acute distress, well-hydrated, well nourished.. Lungs: Lungs clear to auscultation. No wheezing, rhonchi, rales.. Heart: RRR without murmur, gallop, or rubs. No ectopy. Abdomen: distended but soft, BS normoactive, nontender Extremities: sock line edema, otherwise nonpitting ASSESSMENT/PLAN: 1. Type 2 diabetes mellitus without complication, without long-term current use of insulin (HCC) - ICD9: 250.00, ICD10: E11.9 (primary diagnosis) - Worsening control - Barriers to control: diet adherence, lack of exercise, and medication intolerance and stopping meds - Discussed diabetic education issues of diabetes complications and monitoring required, hypoglycemic/hyperglycemic symptoms, and medication-specific side effects and monitoring - HEMOGLOBIN A1C - CONSULT TO PHARMACY 2. Essential hypertension - ICD9: 401.9, ICD10: I10 - Uncontrolled - Factors affecting control: likely diet adherence and noncompliance - Recommend home blood pressure monitoring, to bring results to next visit - Encouraged sodium restriction, DASH or Mediterranean diet - Recommend regular aerobic exercise - CONSULT TO PHARMACY - NT PRO BNP - cardiology follow up 05/31 3. Medication nonadherence due to intolerance - ICD9: V15.81, ICD10: Z91.148 - CONSULT TO PHARMACY 4. Abdominal distension - ICD9: 787.3, ICD10: R14.0 - NT PRO BNP 5. Screening for depression - ICD9: V79.0, ICD10: Z13.31 - DEPRESSION SCREENING 6. Wheezing - ICD9: 786.07, ICD10: R06.2\ - NT PRO BNP 7. Encounter for screening examination for other mental health and behavioral disorders - ICD9: V79.8, ICD10: Z13.39 - ANXIETY SCREENING Prescription drug management- no new med orders, consulting to pharmacy due to multiple med changes and self discontinuance due to suspected side effects and intolerance. Attempted good med reconciliation but difficult with patient, unsure if he really is taking other meds. Encouraged him to bring ALL medications in to his next visit with his PCP team. Discussed treatment plan and patient voices understanding. Patient's questions answered appropriately. Medications and potential side effects were discussed and patient voices understanding. Return to the office as scheduled or as needed for worsening/no improvement. Melva Lozada APRN.TECHNICAL SUPPORT CONSULTANT Recording using [employer] software for draft documentation of the visit was discussed with the patient/authorized home office representative; all questions welcomed and answered. Patient/authorized home office representative agreed to proceed [1] PAST MEDICAL HISTORY Diagnosis Date Abdominal aortic aneurysm (AAA) Abdominal pain, other specified site Asthma (HCC) Awareness under anesthesia CAD (coronary artery disease) Cholelithiasis 09/25/2013 Colitis Diabetes mellitus (HCC) type 2 diet controlled Elevated prostate specific antigen (PSA) Esophageal reflux Gastroesophageal reflux Hypertension Impotence of organic origin Impotence Nocturia SUEJY (obstructive sleep apnea) Post-void dribbling Prostate cancer (HCC) RUQ abdominal pain 09/25/2013 [2] Current Outpatient Medications Medication Sig ammonium lactate (LAC-HYDRIN) 12 % lotion Apply 1 application to affected area as needed (twice daily). Cholecalciferol, Vitamin D3, 25 mcg (1,000 unit) cap Take 25 mcg by mouth once daily. dupilumab 300 mg/2 mL subcutaneous pen injector ([employer]) Inject 300 mg subcutaneously every 2 weeks. lansoprazole (PREVACID) 30 mg capsule Take 1 capsule by mouth daily before breakfast. 1/2 hr before meal. albuterol HFA (PROVENTIL HFA, VENTOLIN HFA) 90 mcg/actuation inhaler Inhale 2 puffs as instructed every 4 hours as needed for wheezing/shortness of breath. apixaban (ELIQUIS) 5 mg tab(s) Take 1 tablet by mouth two times a day. evolocumab (REPATHA SURECLICK) 140 mg/mL pen injector Inject 140 mg subcutaneously every 2 weeks. losartan (COZAAR) 100 mg tablet Take 1 tablet by mouth once daily. aspirin, enteric coated (ECOTRIN LOW STRENGTH) 81 mg EC tablet Take 1 tablet by mouth once daily. guaiFENesin (MUCINEX) 600 mg 12 hr tablet Take 1 tablet by mouth twice daily as needed for cold/allergy symptoms. loratadine (CLARITIN) 10 mg tablet Take 1 tablet by mouth once daily. nitroglycerin sublingual (NITROQUICK) 0.4 mg SL tablet Dissolve 0.4 mg under the tongue every 5 minutes as needed. ADVAIR DISKUS 500-50 mcg/dose dsdv INHALE 1 (ONE) puff EVERY 12 HOURS No current facility-administered medications for this visit. [3] FAMILY HISTORY Problem Relation Age of Onset Colon Cancer Mother Heart Mother Ovarian cancer Mother Prostate Cancer Brother Stroke Brother Emphysema Father [4] Social History Tobacco Use Smoking status: Every Day Current packs/day: 0.25 Average packs/day: 0.3 packs/day for 1.7 years (0.4 ttl pk-yrs) Types: Cigarettes Start date: 08/25/2023 Smokeless tobacco: Never Tobacco comments: Resumed last week after the of his spouse Vaping Use Vaping status: Never Used Substance Use Topics Alcohol use: Yes Comment: 1 beer in the evening occasionally Drug use: No documented in this encounter [facility] 05-02-2025 History of Present illness Narrative Patient is identified through a medication adherence outreach initiative based on pharmacy claims data from: [email or web address] Medication Adherence Category: Diabetes Diabetes Medication: Hemoglobin A1C (%) Date Value 03/09/2025 7.6 (H) Mounjaro 2.5 mg once weekly (2.5 mg/0.5 mL pen injector) Per pharmacy service associate outreach encounter on 05/01/25: Per pt he stop taking because he was having to many side effect last A1C was 7.6 on 03/09/25 Pharmacist escalation reasons: Side effects Per chart review: Current T2DM regimen includes monotherapy of Mounjaro 2.5 mg weekly, of which was self-discontinued by patient d/t ZEE Need to clarify patient's ZEE from Mounjaro Appears patient has previously tried the following for DM management: glipizide XL (unclear why stopped), Ozempic (stopped d/t GI ZEE), and Farxiga (unclear why stopped; reportedly recalled previously tolerating per recent PCP visit noted) No recent BG readings at recent PCP visit though patient had acknowledged a elevated BG of 250 mg/dL (prior to starting Mounjaro) Hx ASCVD. BMI 30.65 kg/m^2. Patient with upcoming PCP office f/u on 05/14/25 for Mounjaro 4-week f/u appointment with Melva Lozada APRN.TECHNICAL SUPPORT CONSULTANT Recent Mounjaro (2.5 mg/0.5 mL) Dispenses 03/12/2025 2.5 mg/0.5 mL pnij (disp 2, 28d supply) First Attempt Outreach consists of: Spoke with patient (see below) Routed to provider for next step determination. Patient confirms he self-discontinued Mounjaro ~6 weeks ago (only took 2 doses) given his intolerabe GI upset and worsened nocturnal emesis. He also notes that he feels his ZEE to Mounjaro were slightly worse then when he tried Ozempic and does not wish to continue this agent at this time. Home SMBG readings (see below). Denies recent s/sx hypoglycemia of concern Acknowledges lifestyle modifications -- cut back on carbohydrate intake, cookies, and pop over the past month. He has also incorporated more physical activity over the past few months as well. He does recall trying glipizide XL and Farxiga in past though confirmed does not recall why he stopped these previously He denies preference of DM medication regimen SMBGs (Fingerprick Readings): Date Fasting AM 2 hr PP Before Lunch 2 hr PP Before Dinner 2 hr PP Bedtime 05/02/2025 05/01/2025 04/30/2025 04/29/2025 04/28/2025 150 04/02/2025 162 03/29/2025 121 03/28/2025 114 03/24/2025 154 03/22/2025 134 03/19/2025 123 Outcome of review: Pending provider outreach Adherence concern addressed Allergy/intolerance list updated Recommend Mounjaro be removed from patient's med list (flagged for removal) as patient self-discontinued this d/t ZEE. Majority of SMBGs provided are within goal despite patient having been off of DM medication for ~6 weeks. He attributes improved lifestyle modifications to this. If aiming to target more stringent A1c goal, would recommend consideration of SGLT-[address] Mounjaro, if cost-effective. Unclear why Farxiga was previously stopped though patient does not recall any concerns when on this previously. Esther Orona RPh [facility] Team documented in this encounter [facility] 05-02-2025 Note HNO ID: [id number] Author: ESTHER ORONA RPh Service: ? Author Type: Pharmacist Type: Progress Notes Filed: 05/02/2025 13:48 Note Text: Patient is identified through a medication adherence outreach initiative based on pharmacy claims data from: [email or web address] Medication Adherence Category: Diabetes Diabetes Medication: Hemoglobin A1C (%) Date Value 03/09/2025 7.6 (H) Mounjaro 2.5 mg once weekly (2.5 mg/0.5 mL pen injector) Per pharmacy service associate outreach encounter on 05/01/25: Per pt he stop taking because he was having to many side effect last A1C was 7.6 on 03/09/25 Pharmacist escalation reasons: Side effects Per chart review: Current T2DM regimen includes monotherapy of Mounjaro 2.5 mg weekly, of which was self-discontinued by patient d/t ZEE Need to clarify patient's ZEE from Mounjaro Appears patient has previously tried the following for DM management: glipizide XL (unclear why stopped), Ozempic (stopped d/t GI ZEE), and Farxiga (unclear why stopped; reportedly recalled previously tolerating per recent PCP visit noted) No recent BG readings at recent PCP visit though patient had acknowledged a elevated BG of 250 mg/dL (prior to starting Mounjaro) Hx ASCVD. BMI 30.65 kg/m2. Patient with upcoming PCP office f/u on 05/14/25 for Mounjaro 4-week f/u appointment with Melva Lozada APRN.TECHNICAL SUPPORT CONSULTANT Recent Mounjaro (2.5 mg/0.5 mL) Dispenses 03/12/2025 2.5 mg/0.5 mL pnij (disp 2, 28d supply) First Attempt Outreach consists of: Spoke with patient (see below) Routed to provider for next step determination. Patient confirms he self-discontinued Mounjaro ~6 weeks ago (only took 2 doses) given his intolerabe GI upset and worsened nocturnal emesis. He also notes that he feels his ZEE to Mounjaro were slightly worse then when he tried Ozempic and does not wish to continue this agent at this time. Home SMBG readings (see below). Denies recent s/sx hypoglycemia of concern Acknowledges lifestyle modifications -- cut back on carbohydrate intake, cookies, and pop over the past month. He has also incorporated more physical activity over the past few months as well. He does recall trying glipizide XL and Farxiga in past though confirmed does not recall why he stopped these previously He denies preference of DM medication regimen SMBGs (Fingerprick Readings): Date Fasting AM 2 hr PP Before Lunch 2 hr PP Before Dinner 2 hr PP Bedtime 05/02/2025 05/01/2025 04/30/2025 04/29/2025 04/28/2025 150 04/02/2025 162 03/29/2025 121 03/28/2025 114 03/24/2025 154 03/22/2025 134 03/19/2025 123 Outcome of review: Pending provider outreach Adherence concern addressed Allergy/intolerance list updated Recommend Mounjaro be removed from patient's med list (flagged for removal) as patient self-discontinued this d/t EZE. Majority of SMBGs provided are within goal despite patient having been off of DM medication for ~6 weeks. He attributes improved lifestyle modifications to this. If aiming to target more stringent A1c goal, would recommend consideration of SGLT-[address] Mounjaro, if cost-effective. Unclear why Farxiga was previously stopped though patient does not recall any concerns when on this previously. Esther Orona, [facility]acy Team [facility] 05-02-2025 Note HNO ID: [id number] Author: ROMY BAE [facility] Service: ? Author Type: Pharmacist Type: Progress Notes Filed: 05/03/2025 09:10 Note Text: TECHNICAL SUPPORT CONSULTANT responded: Melva Lozada APRN.TECHNICAL SUPPORT CONSULTANT o Pharmacy [facility] Adherence Pool.; Cali Cordero MD11 hours ago (9:15 PM) MC I discontinued the mounjaro. I asked him about the farxiga, he's not a good historian if I'm remembering correctly. Thank you Outcome of review: Adherence concern addressed Romy Bae [facility] Team [facility] 05-02-2025 Note Patient Outreach ([facility]) DENTON WESLEY ([id number]) 1950 M Date Time Provider Department 05/02/25 ESTHER ORONA During your visit today, we recorded the following information about you: Esther Orona RPh 05/02/2025 1:48 PM Signed Patient is identified through a medication adherence outreach initiative based on pharmacy claims data from: [email or web address] Medication Adherence Category: Diabetes Diabetes Medication: Hemoglobin A1C (%) Date Value 03/09/2025 7.6 (H) Mounjaro 2.5 mg once weekly (2.5 mg/0.5 mL pen injector) Per pharmacy service associate outreach encounter on 05/01/25: Per pt he stop taking because he was having to many side effect last A1C was 7.6 on 03/09/25 Pharmacist escalation reasons: Side effects Per chart review: Current T2DM regimen includes monotherapy of Mounjaro 2.5 mg weekly, of which was self-discontinued by patient d/t ZEE Need to clarify patient's ZEE from Mounjaro Appears patient has previously tried the following for DM management: glipizide XL (unclear why stopped), Ozempic (stopped d/t GI ZEE), and Farxiga (unclear why stopped; reportedly recalled previously tolerating per recent PCP visit noted) No recent BG readings at recent PCP visit though patient had acknowledged a elevated BG of 250 mg/dL (prior to starting Mounjaro) Hx ASCVD. BMI 30.65 kg/m2. Patient with upcoming PCP office f/u on 05/14/25 for Mounjaro 4-week f/u appointment with Melva Lozada APRN.TECHNICAL SUPPORT CONSULTANT Recent Mounjaro (2.5 mg/0.5 mL) Dispenses 03/12/2025 2.5 mg/0.5 mL pnij (disp 2, 28d supply) First Attempt Outreach consists of: Spoke with patient (see below) Routed to provider for next step determination. Patient confirms he self-discontinued Mounjaro ~6 weeks ago (only took 2 doses) given his intolerabe GI upset and worsened nocturnal emesis. He also notes that he feels his ZEE to Mounjaro were slightly worse then when he tried Ozempic and does not wish to continue this agent at this time. Home SMBG readings (see below). Denies recent s/sx hypoglycemia of concern Acknowledges lifestyle modifications -- cut back on carbohydrate intake, cookies, and pop over the past month. He has also incorporated more physical activity over the past few months as well. He does recall trying glipizide XL and Farxiga in past though confirmed does not recall why he stopped these previously He denies preference of DM medication regimen SMBGs (Fingerprick Readings): Date Fasting AM 2 hr PP Before Lunch 2 hr PP Before Dinner 2 hr PP Bedtime 05/02/2025 05/01/2025 04/30/2025 04/29/2025 04/28/2025 150 04/02/2025 162 03/29/2025 121 03/28/2025 114 03/24/2025 154 03/22/2025 134 03/19/2025 123 Outcome of review: Pending provider outreach Adherence concern addressed Allergy/intolerance list updated Recommend Mounjaro be removed from patient's med list (flagged for removal) as patient self-discontinued this d/t ZEE. Majority of SMBGs provided are within goal despite patient having been off of DM medication for ~6 weeks. He attributes improved lifestyle modifications to this. If aiming to target more stringent A1c goal, would recommend consideration of SGLT-[address] Mounjaro, if cost-effective. Unclear why Farxiga was previously stopped though patient does not recall any concerns when on this previously. Esther Orona [facility] Team Romy Bae RP 05/03/2025 9:10 AM Signed TECHNICAL SUPPORT CONSULTANT responded: Melva Lozada APRN.[facility] Adherence Pool.; Cali Cordero MD11 hours ago (9:15 PM) MC I discontinued the mounjaro. I asked him about the farxiga, he's not a good historian if I'm remembering correctly. Thank you Outcome of review: Adherence concern addressed Romy Bae, [facility] Pharm[facility] Team Allergies As of Date: 05/02/2025 Noted Allergy Reaction GEMFIBROZIL 09/25/2019 5 - Intolerance ROSUVASTATIN 09/25/2019 5 - Intolerance SIMVASTATIN 09/25/2019 5 - Intolerance IMDUR (ISOSORBIDE) 03/05/2022 5 - Intolerance Comments: Headaches, upset stomach, fatigue MOUNJARO (TIRZEPATIDE) 05/02/2025 8 - GI Upset Comments: intolerabe GI upset and worsened nocturnal emesis (at starting dose of 2.5 mg/week) OZEMPIC (SEMAGLUTIDE) 05/02/2025 8 - GI Upset PENICILLINS 02/10/2007 5 - Intolerance Comments: passed out and felt like I had the flu Pt states he's no longer allergic to this, he's taken tests w/out issues. PRAVASTATIN 08/07/2021 17 - Myalgia Date Reviewed: 03/12/2025 Reviewed by: Debo Meadows LPN - Fully Assessed Reason for Visit: Allied Health Visit [5] Cmt: Medication Adherence Prescriptions as of 05/03/2025 - lansoprazole (PREVACID) 30 mg capsule Take 1 capsule by mouth daily before breakfast. 1/2 hr before meal. - albuterol HFA (PROVENTIL HFA, VENTOLIN HFA) 90 mcg/actuation inhaler Inhale 2 puffs as inst (more content not included)... [facility] 05-01-2025 Note HNO ID: [id number] Author: LEANNE HOLLAND CPhT Service: ? Author Type: Punch Machine Hand Type: Progress Notes Filed: 05/18/2025 15:24 Note Text: Patient is identified through a medication adherence outreach initiative based on pharmacy claims data from: [email or web address] Medication Adherence Category: Diabetes First Review Attribution Status: Correct attribution Medication(s) Mounjaro 2.5 mg inject once weekly Due 03/31/25 last filled 02/27/25 for 28 ds Medication Status per portal/Epic Reconcile Dispense: Not filled Medication Status per Profile Review: Patient discontinued Patient/provider appropriate for outreach? Yes Patient identified by name and Outreach to patient: Spoke to patient Med Adherence Concern: Side effects What was primary intervention? Escalate to pharmacist - adherence Per pt he stop taking because he was having to many side effect last A1C was 7.6 on 03/09/25 Leanne Holland CPhT [facility] Pharm[facility] Team [facility] 05-01-2025 History of Present illness Narrative Patient is identified through a medication adherence outreach initiative based on pharmacy claims data from: [employer] Medication Adherence Category: Diabetes First Review Attribution Status: Correct attribution Medication(s) Mounjaro 2.5 mg inject once weekly Due 03/31/25 last filled 02/27/25 for 28 ds Medication Status per portal/Epic Reconcile Dispense: Not filled Medication Status per Profile Review: Patient discontinued Patient/provider appropriate for outreach? Yes Patient identified by name and Outreach to patient: Spoke to patient Med Adherence Concern: Side effects What was primary intervention? Escalate to pharmacist - adherence Per pt he stop taking because he was having to many side effect last A1C was 7.6 on 03/09/25 Leanne Holland CPhT [facility] Pharm[facility] Team documented in this encounter [facility] 05-01-2025 Note Patient Outreach ([facility]) DENTON WESLEY ([id number]) 1950 M Date Time Provider Department 05/01/25 CALI CORDERO During your visit today, we recorded the following information about you: Leanne Holland CPhT 05/18/2025 3:24 PM Signed Patient is identified through a medication adherence outreach initiative based on pharmacy claims data from: [employer] Medication Adherence Category: Diabetes First Review Attribution Status: Correct attribution Medication(s) Mounjaro 2.5 mg inject once weekly Due 03/31/25 last filled 02/27/25 for 28 ds Medication Status per portal/Epic Reconcile Dispense: Not filled Medication Status per Profile Review: Patient discontinued Patient/provider appropriate for outreach? Yes Patient identified by name and Outreach to patient: Spoke to patient Med Adherence Concern: Side effects What was primary intervention? Escalate to pharmacist - adherence Per pt he stop taking because he was having to many side effect last A1C was 7.6 on 03/09/25 Leanne Holland CPhT [facility] Pharmacy Team Allergies As of Date: 05/01/2025 Noted Allergy Reaction GEMFIBROZIL 09/25/2019 5 - Intolerance ROSUVASTATIN 09/25/2019 5 - Intolerance SIMVASTATIN 09/25/2019 5 - Intolerance IMDUR (ISOSORBIDE) 03/05/2022 5 - Intolerance Comments: Headaches, upset stomach, fatigue PENICILLINS 02/10/2007 5 - Intolerance Comments: passed out and felt like I had the flu Pt states he's no longer allergic to this, he's taken tests w/out issues. PRAVASTATIN 08/07/2021 17 - Myalgia Date Reviewed: 03/12/2025 Reviewed by: Debo Meadows LPN - Fully Assessed Reason for Visit: Allied Health Visit [5] Cmt: Medication Adherence Outreach Prescriptions as of 05/18/2025 - ammonium lactate (LAC-HYDRIN) 12 % lotion Apply 1 application to affected area as needed (twice daily). - Cholecalciferol, Vitamin D3, 25 mcg (1,000 unit) cap Take 25 mcg by mouth once daily. - dupilumab 300 mg/2 mL subcutaneous pen injector (DU[employer]ENT) Inject 300 mg subcutaneously every 2 weeks. - lansoprazole (PREVACID) 30 mg capsule Take 1 capsule by mouth daily before breakfast. 1/2 hr before meal. - albuterol HFA (PROVENTIL HFA, VENTOLIN HFA) 90 mcg/actuation inhaler Inhale 2 puffs as instructed every 4 hours as needed for wheezing/shortness of breath. - apixaban (ELIQUIS) 5 mg tab(s) Take 1 tablet by mouth two times a day. - evolocumab (REPATHA SURECLICK) 140 mg/mL pen injector Inject 140 mg subcutaneously every 2 weeks. - losartan (COZAAR) 100 mg tablet Take 1 tablet by mouth once daily. - aspirin, enteric coated (ECOTRIN LOW STRENGTH) 81 mg EC tablet Take 1 tablet by mouth once daily. - guaiFENesin (MUCINEX) 600 mg 12 hr tablet Take 1 tablet by mouth twice daily as needed for cold/allergy symptoms. - loratadine (CLARITIN) 10 mg tablet Take 1 tablet by mouth once daily. - nitroglycerin sublingual (NITROQUICK) 0.4 mg SL tablet Dissolve 0.4 mg under the tongue every 5 minutes as needed. - ADVAIR DISKUS 500-50 mcg/dose dsdv INHALE 1 (ONE) puff EVERY 12 HOURS Problem List As Of Date 05/01/2025 Noted Resolved SUBCUTANEOUS NODULES [R22.9] 02/21/2007 Dark urine [R82.998] 10/05/2013 Abdominal pain, other specified site [R10.9] Elevated glucose [R73.09] 01/29/2020 Coronary artery disease of [place] artery of [place]*01/29/2020 Mixed hyperlipidemia [E78.2] 01/29/2020 Essential hypertension [I10] 01/29/2020 S/P right coronary artery (RCA) stent placement*06/24/2021 Pure hypercholesterolemia [E78.00] 08/13/2021 Elevated PSA [R97.20] 03/11/2022 Stable angina (HCC) [I20.89] 06/10/2022 Dyspnea on exertion [R06.09] 06/10/2022 S/P CABG x 2 [Z95.1] 10/16/2022 Type 2 diabetes mellitus without complication, *12/11/2022 Prostate cancer (HCC) [C61] 07/30/2023 Postoperative atrial fibrillation (HCC) [I97.89*11/25/2023 Bilateral hip pain [M25.551, M25.552] 02/08/2024 History of colonic polyps [Z86.0100] 07/19/2024 DM type 2 with diabetic mixed hyperlipidemia (H*03/12/2025 Obesity, Class I, BMI 30-34.9 [E66.811] 03/12/2025 Encounter Status:Closed by LEANNE HOLLAND on 05/18/25 [facility] 04-24-2025 Note HNO ID: [id number] Author: JOHNY AN CPhT Service: ? Author Type: Punch Machine Hand Type: Progress Notes Filed: 04/24/2025 14:02 Note Text: Patient is identified through a medication adherence outreach initiative based on pharmacy claims data from: [email or web address] Medication Adherence Category: Hypertension Second Attempt Medication(s) Losartan 100 mg due 03/15/25, filled 12/16/24 for 90 days Medication Status per portal/Epic Reconcile Dispense: Not filled Medication Status per Profile Review: No issues per profile review Patient identified by name and Outreach to patient: Spoke to patient Med Adherence Concern: Forgetting to take > 2 doses per month What was primary intervention? Reviewed medication with the patient Johny An CPhT [facility] Pharmacy Team [facility] 04-24-2025 History of Present illness Narrative Patient is identified through a medication adherence outreach initiative based on pharmacy claims data from: [email or web address] Medication Adherence Category: Hypertension Second Attempt Medication(s) Losartan 100 mg due 03/15/25, filled 12/16/24 for 90 days Medication Status per portal/Epic Reconcile Dispense: Not filled Medication Status per Profile Review: No issues per profile review Patient identified by name and Outreach to patient: Spoke to patient Med Adherence Concern: Forgetting to take > 2 doses per month What was primary intervention? Reviewed medication with the patient Johny An CPhT [facility] Team documented in this encounter [facility] 04-24-2025 Note Patient Outreach ( POHE) DENTON WESLEY ([id number]) 1950 M Date Time Provider Department 04/24/25 CALI CORDERO During your visit today, we recorded the following information about you: Johny An CPhT 04/24/2025 2:02 PM Signed Patient is identified through a medication adherence outreach initiative based on pharmacy claims data from: [email or web address] Medication Adherence Category: Hypertension Second Attempt Medication(s) Losartan 100 mg due 03/15/25, filled 12/16/24 for 90 days Medication Status per portal/Epic Reconcile Dispense: Not filled Medication Status per Profile Review: No issues per profile review Patient identified by name and Outreach to patient: Spoke to patient Med Adherence Concern: Forgetting to take > 2 doses per month What was primary intervention? Reviewed medication with the patient Johny An CPhT [facility] Team Allergies As of Date: 04/24/2025 Noted Allergy Reaction GEMFIBROZIL 09/25/2019 5 - Intolerance ROSUVASTATIN 09/25/2019 5 - Intolerance SIMVASTATIN 09/25/2019 5 - Intolerance IMDUR (ISOSORBIDE) 03/05/2022 5 - Intolerance Comments: Headaches, upset stomach, fatigue PENICILLINS 02/10/2007 5 - Intolerance Comments: passed out and felt like I had the flu Pt states he's no longer allergic to this, he's taken tests w/out issues. PRAVASTATIN 08/07/2021 17 - Myalgia Date Reviewed: 03/12/2025 Reviewed by: Debo Meadows LPN - Fully Assessed Reason for Visit: Allied Health Visit [5] Cmt: Medication Adherence Outreach Prescriptions as of 04/24/2025 - lansoprazole (PREVACID) 30 mg capsule Take 1 capsule by mouth daily before breakfast. 1/2 hr before meal. - tirzepatide (MOUNJARO) 2.5 mg/0.5 mL pen injector Inject 2.5 mg subcutaneously one time a week. - albuterol HFA (PROVENTIL HFA, VENTOLIN HFA) 90 mcg/actuation inhaler Inhale 2 puffs as instructed every 4 hours as needed for wheezing/shortness of breath. - carvedilol (COREG) 25 mg tablet Take 1 tablet by mouth two times a day. - apixaban (ELIQUIS) 5 mg tab(s) Take 1 tablet by mouth two times a day. - evolocumab (REPATHA SURECLICK) 140 mg/mL pen injector Inject 140 mg subcutaneously every 2 weeks. - losartan (COZAAR) 100 mg tablet Take 1 tablet by mouth once daily. - aspirin, enteric coated (ECOTRIN LOW STRENGTH) 81 mg EC tablet Take 1 tablet by mouth once daily. - guaiFENesin (MUCINEX) 600 mg 12 hr tablet Take 1 tablet by mouth twice daily as needed for cold/allergy symptoms. - loratadine (CLARITIN) 10 mg tablet Take 1 tablet by mouth once daily. - nitroglycerin sublingual (NITROQUICK) 0.4 mg SL tablet Dissolve 0.4 mg under the tongue every 5 minutes as needed. - ADVAIR DISKUS 500-50 mcg/dose dsdv INHALE 1 (ONE) puff EVERY 12 HOURS Problem List As Of Date 04/24/2025 Noted Resolved SUBCUTANEOUS NODULES [R22.9] 02/21/2007 Dark urine [R82.998] 10/05/2013 Abdominal pain, other specified site [R10.9] Elevated glucose [R73.09] 01/29/2020 Coronary artery disease of nome artery of kevin*01/29/2020 Mixed hyperlipidemia [E78.2] 01/29/2020 Essential hypertension [I10] 01/29/2020 S/P right coronary artery (RCA) stent placement*06/24/2021 Pure hypercholesterolemia [E78.00] 08/13/2021 Elevated PSA [R97.20] 03/11/2022 Stable angina (HCC) [I20.89] 06/10/2022 Dyspnea on exertion [R06.09] 06/10/2022 S/P CABG x 2 [Z95.1] 10/16/2022 Type 2 diabetes mellitus without complication, *12/11/2022 Prostate cancer (HCC) [C61] 07/30/2023 Postoperative atrial fibrillation (HCC) [I97.89*11/25/2023 Bilateral hip pain [M25.551, M25.552] 02/08/2024 History of colonic polyps [Z86.0100] 07/19/2024 DM type 2 with diabetic mixed hyperlipidemia (H*03/12/2025 Obesity, Class I, BMI 30-34.9 [E66.811] 03/12/2025 Encounter Status:Closed by JOHNY AN on 04/24/25 [facility] 04-17-2025 Note HNO ID: [id number] Author: JOHNY AN CPhT Service: ? Author Type: Punch Machine Hand Type: Progress Notes Filed: 04/17/2025 15:30 Note Text: Patient is identified through a medication adherence outreach initiative based on pharmacy claims data from: [email or web address] Medication Adherence Category: Hypertension First Review Attribution Status: Correct attribution Medication(s) Losartan 100 mg due 03/15/25, filled 12/16/24 for 90 days Medication Status per portal/Epic Reconcile Dispense: Not filled Medication Status per Profile Review: No issues per profile review Patient/provider appropriate for outreach? Yes Patient identified by name and Outreach to patient: Left Voicemail/message for return call What was primary intervention? Sent [employer] message Johny An CPhT [facility] Team [facility] 04-17-2025 History of Present illness Narrative Patient is identified through a medication adherence outreach initiative based on pharmacy claims data from: [email or web address] Medication Adherence Category: Hypertension First Review Attribution Status: Correct attribution Medication(s) Losartan 100 mg due 03/15/25, filled 12/16/24 for 90 days Medication Status per portal/Epic Reconcile Dispense: Not filled Medication Status per Profile Review: No issues per profile review Patient/provider appropriate for outreach? Yes Patient identified by name and Outreach to patient: Left Voicemail/message for return call What was primary intervention? Sent [employer] message Johny An CPhT [facility] Team documented in this encounter [facility] 04-17-2025 Note Patient Outreach ( POHE) DENTON WESLEY ([id number]) 1950 M Date Time Provider Department 04/17/25 CALI CORDERO During your visit today, we recorded the following information about you: Johny An CPhT 04/17/2025 3:30 PM Signed Patient is identified through a medication adherence outreach initiative based on pharmacy claims data from: [email or web address] Medication Adherence Category: Hypertension First Review Attribution Status: Correct attribution Medication(s) Losartan 100 mg due 03/15/25, filled 12/16/24 for 90 days Medication Status per portal/Epic Reconcile Dispense: Not filled Medication Status per Profile Review: No issues per profile review Patient/provider appropriate for outreach? Yes Patient identified by name and Outreach to patient: Left Voicemail/message for return call What was primary intervention? Sent [employer] message Johny An CPhT [facility] Team Allergies As of Date: 04/17/2025 Noted Allergy Reaction GEMFIBROZIL 09/25/2019 5 - Intolerance ROSUVASTATIN 09/25/2019 5 - Intolerance SIMVASTATIN 09/25/2019 5 - Intolerance IMDUR (ISOSORBIDE) 03/05/2022 5 - Intolerance Comments: Headaches, upset stomach, fatigue PENICILLINS 02/10/2007 5 - Intolerance Comments: passed out and felt like I had the flu Pt states he's no longer allergic to this, he's taken tests w/out issues. PRAVASTATIN 08/07/2021 17 - Myalgia Date Reviewed: 03/12/2025 Reviewed by: Debo Meadows LPN - Fully Assessed Reason for Visit: Allied Health Visit [5] Cmt: Medication Adherence Outreach Prescriptions as of 04/17/2025 - lansoprazole (PREVACID) 30 mg capsule Take 1 capsule by mouth daily before breakfast. 1/2 hr before meal. - tirzepatide (MOUNJARO) 2.5 mg/0.5 mL pen injector Inject 2.5 mg subcutaneously one time a week. - albuterol HFA (PROVENTIL HFA, VENTOLIN HFA) 90 mcg/actuation inhaler Inhale 2 puffs as instructed every 4 hours as needed for wheezing/shortness of breath. - carvedilol (COREG) 25 mg tablet Take 1 tablet by mouth two times a day. - apixaban (ELIQUIS) 5 mg tab(s) Take 1 tablet by mouth two times a day. - evolocumab (REPATHA SURECLICK) 140 mg/mL pen injector Inject 140 mg subcutaneously every 2 weeks. - losartan (COZAAR) 100 mg tablet Take 1 tablet by mouth once daily. - aspirin, enteric coated (ECOTRIN LOW STRENGTH) 81 mg EC tablet Take 1 tablet by mouth once daily. - guaiFENesin (MUCINEX) 600 mg 12 hr tablet Take 1 tablet by mouth twice daily as needed for cold/allergy symptoms. - loratadine (CLARITIN) 10 mg tablet Take 1 tablet by mouth once daily. - nitroglycerin sublingual (NITROQUICK) 0.4 mg SL tablet Dissolve 0.4 mg under the tongue every 5 minutes as needed. - ADVAIR DISKUS 500-50 mcg/dose dsdv INHALE 1 (ONE) puff EVERY 12 HOURS Problem List As Of Date 04/17/2025 Noted Resolved SUBCUTANEOUS NODULES [R22.9] 02/21/2007 Dark urine [R82.998] 10/05/2013 Abdominal pain, other specified site [R10.9] Elevated glucose [R73.09] 01/29/2020 Coronary artery disease of nome artery of kevin*01/29/2020 Mixed hyperlipidemia [E78.2] 01/29/2020 Essential hypertension [I10] 01/29/2020 S/P right coronary artery (RCA) stent placement*06/24/2021 Pure hypercholesterolemia [E78.00] 08/13/2021 Elevated PSA [R97.20] 03/11/2022 Stable angina (HCC) [I20.89] 06/10/2022 Dyspnea on exertion [R06.09] 06/10/2022 S/P CABG x 2 [Z95.1] 10/16/2022 Type 2 diabetes mellitus without complication, *12/11/2022 Prostate cancer (HCC) [C61] 07/30/2023 Postoperative atrial fibrillation (HCC) [I97.89*11/25/2023 Bilateral hip pain [M25.551, M25.552] 02/08/2024 History of colonic polyps [Z86.0100] 07/19/2024 DM type 2 with diabetic mixed hyperlipidemia (H*03/12/2025 Obesity, Class I, BMI 30-34.9 [E66.811] 03/12/2025 Encounter Status:Closed by JOHNY AN on 04/17/25 [place] [id number] History of Present illness Narrative Denton Wesley is identified & reviewed as part of population health initiative focused on STAR measures care gaps through data from [email or web address] (insurer) as a potential candidate for statin therapy with no prescription claims processes for a statin medication in this calendar year. Patient has: PCP at [facility] and Cardiology provider at [facility] Patient has: diabetes and ASCVD diagnosis (CAD) Guideline recommendation: Per 2019 ACC/AHA guidelines, patient qualifies for at least a moderate intensity statin due to history of diabetes, regardless of LDL. Per 2021 ACC/AHA consensus statement, consider LDL goal of < 55 mg/dL (at very high risk - history of multiple major ASCVD events or 1 major ASCVD event and multiple high risk conditions). Lab Results Component Value Date LDL 67 06/07/2024 LDL 126 (H) 03/06/2023 LDL 55 03/12/2022 Status: Patient is not on statin therapy. Has tried the following statin(s): rosuvastatin, simvastatin, pravastatin 10 mg. Meets NLA criteria for statin intolerance (minimum of 2 statins tried, with 1 at lowest approved dosage). Patient had myalgia/myopathy while on statin therapy in the past and was taken off statin due to this issue. VBO Outcomes: Intolerance/Allergy Zane Ulloa RPh [facility] Team documented in this encounter [facility] 04-04-2025 Note HNO ID: [id number] Author: ROMY BAE RPh Service: ? Author Type: Pharmacist Type: Progress Notes Filed: 05/01/2025 08:44 Note Text: Denton Wesley is identified AND reviewed as part of population health initiative focused on STAR measures care gaps through data from [email or web address] (insurer) as a potential candidate for statin therapy with no prescription claims processes for a statin medication in this calendar year. Patient has: PCP at [facility] and Cardiology provider at [facility] PCP: Cali Cordero MD Accounts Receivable Bookkeeper: Juan A Pacheco DO Patient has: diabetes and ASCVD diagnosis (CAD) Guideline recommendation: Per 2019 ACC/AHA guidelines, patient qualifies for at least a moderate intensity statin due to history of diabetes, regardless of LDL. Per 2021 ACC/AHA consensus statement, consider LDL goal of < 55 mg/dL (at very high risk - history of multiple major ASCVD events or 1 major ASCVD event and multiple high risk conditions). Lab Results Component Value Date LDL 67 06/07/2024 LDL 126 (H) 03/06/2023 LDL 55 03/12/2022 Status: Patient is not on statin therapy. Has tried the following statin(s): rosuvastatin, simvastatin, pravastatin 10 mg. Meets NLA criteria for statin intolerance (minimum of 2 statins tried, with 1 at lowest approved dosage). Patient experienced myalgia while on statin therapy in the past and was taken off statin due to this issue. VBO Outcomes: Intolerance/Allergy - documentation submitted to insurer Zane Ulloa RPh [facility] Team [facility] 04-04-2025 Note Patient Outreach ( POHE) DENTON WESLEY ([id number]) 1950 M Date Time Provider Department 04/04/25 [facility] During your visit today, we recorded the following information about you: Zane Ulloa RPh 04/04/2025 9:49 AM Addendum Denton Wesley is identified AND reviewed as part of population health initiative focused on STAR measures care gaps through data from [email or web address] (insurer) as a potential candidate for statin therapy with no prescription claims processes for a statin medication in this calendar year. Patient has: PCP at [facility] and Cardiology provider at [facility] PCP: Cali Cordero MD Accounts Receivable Bookkeeper: Juan A Pacheco DO Patient has: diabetes and ASCVD diagnosis (CAD) Guideline recommendation: Per 2019 ACC/AHA guidelines, patient qualifies for at least a moderate intensity statin due to history of diabetes, regardless of LDL. Per 2021 ACC/AHA consensus statement, consider LDL goal of < 55 mg/dL (at very high risk - history of multiple major ASCVD events or 1 major ASCVD event and multiple high risk conditions). Lab Results Component Value Date LDL 67 06/07/2024 LDL 126 (H) 03/06/2023 LDL 55 03/12/2022 Status: Patient is not on statin therapy. Has tried the following statin(s): rosuvastatin, simvastatin, pravastatin 10 mg. Meets NLA criteria for statin intolerance (minimum of 2 statins tried, with 1 at lowest approved dosage). Patient experienced myalgia while on statin therapy in the past and was taken off statin due to this issue. VBO Outcomes: Intolerance/Allergy - documentation submitted to insurer Zane Ulloa [facility] Team Allergies As of Date: 04/04/2025 Noted Allergy Reaction GEMFIBROZIL 09/25/2019 5 - Intolerance ROSUVASTATIN 09/25/2019 5 - Intolerance SIMVASTATIN 09/25/2019 5 - Intolerance IMDUR (ISOSORBIDE) 03/05/2022 5 - Intolerance Comments: Headaches, upset stomach, fatigue PENICILLINS 02/10/2007 5 - Intolerance Comments: passed out and felt like I had the flu Pt states he's no longer allergic to this, he's taken tests w/out issues. PRAVASTATIN 08/07/2021 17 - Myalgia Date Reviewed: 03/12/2025 Reviewed by: Debo Meadows LPN - Fully Assessed Reason for Visit: Allied Health Visit [5] Cmt: SUPD Prescriptions as of 05/01/2025 - lansoprazole (PREVACID) 30 mg capsule Take 1 capsule by mouth daily before breakfast. 1/2 hr before meal. - tirzepatide (MOUNJARO) 2.5 mg/0.5 mL pen injector Inject 2.5 mg subcutaneously one time a week. - albuterol HFA (PROVENTIL HFA, VENTOLIN HFA) 90 mcg/actuation inhaler Inhale 2 puffs as instructed every 4 hours as needed for wheezing/shortness of breath. - carvedilol (COREG) 25 mg tablet Take 1 tablet by mouth two times a day. - apixaban (ELIQUIS) 5 mg tab(s) Take 1 tablet by mouth two times a day. - evolocumab (REPATHA SURECLICK) 140 mg/mL pen injector Inject 140 mg subcutaneously every 2 weeks. - losartan (COZAAR) 100 mg tablet Take 1 tablet by mouth once daily. - aspirin, enteric coated (ECOTRIN LOW STRENGTH) 81 mg EC tablet Take 1 tablet by mouth once daily. - guaiFENesin (MUCINEX) 600 mg 12 hr tablet Take 1 tablet by mouth twice daily as needed for cold/allergy symptoms. - loratadine (CLARITIN) 10 mg tablet Take 1 tablet by mouth once daily. - nitroglycerin sublingual (NITROQUICK) 0.4 mg SL tablet Dissolve 0.4 mg under the tongue every 5 minutes as needed. - ADVAIR DISKUS 500-50 mcg/dose dsdv INHALE 1 (ONE) puff EVERY 12 HOURS Problem List As Of Date 04/04/2025 Noted Resolved SUBCUTANEOUS NODULES [R22.9] 02/21/2007 Dark urine [R82.998] 10/05/2013 Abdominal pain, other specified site [R10.9] Elevated glucose [R73.09] 01/29/2020 Coronary artery disease of nome artery of kevin*01/29/2020 Mixed hyperlipidemia [E78.2] 01/29/2020 Essential hypertension [I10] 01/29/2020 S/P right coronary artery (RCA) stent placement*06/24/2021 Pure hypercholesterolemia [E78.00] 08/13/2021 Elevated PSA [R97.20] 03/11/2022 Stable angina (HCC) [I20.89] 06/10/2022 Dyspnea on exertion [R06.09] 06/10/2022 S/P CABG x 2 [Z95.1] 10/16/2022 Type 2 diabetes mellitus without complication, *12/11/2022 Prostate cancer (HCC) [C61] 07/30/2023 Postoperative atrial fibrillation (HCC) [I97.89*11/25/2023 Bilateral hip pain [M25.551, M25.552] 02/08/2024 History of colonic polyps [Z86.0100] 07/19/2024 DM type 2 with diabetic mixed hyperlipidemia (H*03/12/2025 Obesity, Class I, BMI 30-34.9 [E66.811] 03/12/2025 Encounter Status:Closed by ZANE ULLOA on 04/04/25 [facility] 03-23-2025 Note HNO ID: [id number] Author: ?, ?, ? Service: ? Author Type: ? Type: Progress Notes Filed: 03/23/2025 14:20 Note Text: POPULATION HEALTH NAVIGATION OUTREACH Action/FYI Patient outreach for HCC gaps; AWV, KED, AIDAN, COLO due 07/19/25. Spoke with patient and flipped follow up appointment, pended KEMaegan, Colonoscopy was done in 2023 was told every 5 years. Uses OSH for eyes. Dr. Cordero, Please approve these orders for the patient to be completed prior to their appointment. Additionally, feel free to place any other orders you deem necessary. Thank you! Pended Orders ID Status Description Pended By When Reason [id number] Pended ALBUMIN/CREATININE RATIO, URINE Angelita Gardner 03/23/25 1113 Reason for Outreach Care Gap/HCC or Scheduling Wellness Visits Care Gaps due: Medicare Annual Wellness Visit Colorectal Cancer Screening Diabetic Eye Exam KED Patient Contacted: Spoke to patient/parent/or legal guardian Patient identified by name and : Yes Care Gap/HCC/Scheduling Wellness actions taken: Patient scheduled/pended orders: KED 04/09/2025 in [facility] with MELVA LOZADA - 4 week f/up on monjurio 05/28/2025 in [facility] with JANIA POZO - 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 MORIAH ARREAGA - Follow up after testing 08/07/2025 [facility] - Abdominal aortic aneurysm (AAA) without rupture, unspecified part (HCC) [I71.40] HCC related Navigation Signature: Angelita Singh Pss March 23, 2025 11:03 AM [facility] 03-23-2025 History of Present illness Narrative POPULATION HEALTH NAVIGATION OUTREACH Action/FYI Patient outreach for HCC gaps; AWV, KED, AIDAN, COLO due 07/19/25. Spoke with patient and flipped follow up appointment, pended TAYO, Colonoscopy was done in 2023 was told every 5 years. Uses OSH for eyes. Dr. Cordero, Please approve these orders for the patient to be completed prior to their appointment. Additionally, feel free to place any other orders you deem necessary. Thank you! Pended Orders ID Status Description Pended By When Reason [id number] Pended ALBUMIN/CREATININE RATIO, URINE Angelita Gardner 03/23/25 1113 Reason for Outreach Care Gap/HCC or Scheduling Wellness Visits Care Gaps due: Medicare Annual Wellness Visit Colorectal Cancer Screening Diabetic Eye Exam KEMaegan Patient Contacted: Spoke to patient/parent/or legal guardian Patient identified by name and : Yes Care Gap/HCC/Scheduling Wellness actions taken: Patient scheduled/pended orders: KEMaegan 04/09/2025 in [facility] with MELVA LOZADA - 4 week f/up on monjurio 05/28/2025 in [facility] with JANIA POZO 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 08/07/2025 in [facility] with MORIAH ARREAGA - Follow up after testing 08/07/2025 in [facility] with [facility] - Abdominal aortic aneurysm (AAA) without rupture, unspecified part (HCC) [I71.40] HCC related Navigation Signature: Angelita Haq March 23, 2025 11:03 AM documented in this encounter [facility] 03-23-2025 Note Patient Outreach (ISIAH CORDON) DENTON WESLEY ([id number]) 1950 M Date Time Provider Department 03/23/25 CALI CORDERO During your visit today, we recorded the following information about you: Angelita Gardner 03/23/2025 2:20 PM Signed POPULATION HEALTH NAVIGATION OUTREACH Action/FYI Patient outreach for HCC gaps; AWV, TAYO, AIDAN, COLO due 07/19/25. Spoke with patient and flipped follow up appointment, pended TAYO, Colonoscopy was done in 2023 was told every 5 years. Uses OSH for eyes. Dr. Cordero, Please approve these orders for the patient to be completed prior to their appointment. Additionally, feel free to place any other orders you deem necessary. Thank you! Pended Orders ID Status Description Pended By When Reason [id number] Pended ALBUMIN/CREATININE RATIO, URINE Angelita Gardner 03/23/25 1113 Reason for Outreach Care Gap/HCC or Scheduling Wellness Visits Care Gaps due: Medicare Annual Wellness Visit Colorectal Cancer Screening Diabetic Eye Exam TAYO Patient Contacted: Spoke to patient/parent/or legal guardian Patient identified by name and : Yes Care Gap/HCC/Scheduling Wellness actions taken: Patient scheduled/pended orders: TAYO 04/09/2025 in [facility] with MELVA LOZADA - 4 week f/up on monjurio 05/28/2025 [facility] with JANIA POZO - 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 08/07/2025 in [facility] with MORIAH ARREAGA - Follow up after testing 08/07/2025 in [facility] with [facility] - Abdominal aortic aneurysm (AAA) without rupture, unspecified part (HCC) [I71.40] HCC related Navigation Signature: Angelita Singh Pss March 23, 2025 11:03 AM Allergies As of Date: 03/23/2025 Noted Allergy Reaction GEMFIBROZIL 09/25/2019 5 - Intolerance ROSUVASTATIN 09/25/2019 5 - Intolerance SIMVASTATIN 09/25/2019 5 - Intolerance IMDUR (ISOSORBIDE) 03/05/2022 5 - Intolerance Comments: Headaches, upset stomach, fatigue PENICILLINS 02/10/2007 5 - Intolerance Comments: passed out and felt like I had the flu Pt states he's no longer allergic to this, he's taken tests w/out issues. PRAVASTATIN 08/07/2021 17 - Myalgia Date Reviewed: 03/12/2025 Reviewed by: Debo Meadows LPN - Fully Assessed Reason for Visit: Population Health Navigation Outreach [3910] Cmt: Rafaela Owens Primary Visit Diagnosis:Type 2 diabetes mellitus without complication, without long-term current use of insulin (HCC) [E11.9] Order(s):ALBUMIN/CREATININE RATIO, URINE [SQUACR] Order #: [id number] FUTURE Prescriptions as of 03/23/2025 - lansoprazole (PREVACID) 30 mg capsule Take 1 capsule by mouth daily before breakfast. 1/2 hr before meal. - tirzepatide (MOUNJARO) 2.5 mg/0.5 mL pen injector Inject 2.5 mg subcutaneously one time a week. - albuterol HFA (PROVENTIL HFA, VENTOLIN HFA) 90 mcg/actuation inhaler Inhale 2 puffs as instructed every 4 hours as needed for wheezing/shortness of breath. - carvedilol (COREG) 25 mg tablet Take 1 tablet by mouth two times a day. - apixaban (ELIQUIS) 5 mg tab(s) Take 1 tablet by mouth two times a day. - evolocumab (REPATHA SURECLICK) 140 mg/mL pen injector Inject 140 mg subcutaneously every 2 weeks. - losartan (COZAAR) 100 mg tablet Take 1 tablet by mouth once daily. - aspirin, enteric coated (ECOTRIN LOW STRENGTH) 81 mg EC tablet Take 1 tablet by mouth once daily. - guaiFENesin (MUCINEX) 600 mg 12 hr tablet Take 1 tablet by mouth twice daily as needed for cold/allergy symptoms. - loratadine (CLARITIN) 10 mg tablet Take 1 tablet by mouth once daily. - nitroglycerin sublingual (NITROQUICK) 0.4 mg SL tablet Dissolve 0.4 mg under the tongue every 5 minutes as needed. - ADVAIR DISKUS 500-50 mcg/dose dsdv INHALE 1 (ONE) puff EVERY 12 HOURS Problem List As Of Date 03/23/2025 Noted Resolved SUBCUTANEOUS NODULES [R22.9] 02/21/2007 Dark urine [R82.998] 10/05/2013 Abdominal pain, other specified site [R10.9] Elevated glucose [R73.09] 01/29/2020 Coronary artery disease of nome artery of kevin*01/29/2020 Mixed hyperlipidemia [E78.2] 01/29/2020 Essential hypertension [I10] 01/29/2020 S/P right coronary artery (RCA) stent placement*06/24/2021 Pure hypercholesterolemia [E78.00] 08/13/2021 Elevated PSA [R97.20] 03/11/2022 Stable angina (HCC) [I20.89] 06/10/2022 Dyspnea on exertion [R06.09] 06/10/2022 S/P CABG x 2 [Z95.1] 10/16/2022 Type 2 diabetes mellitus without complication, *12/11/2022 Prostate cancer (HCC) [C61] 07/30/2023 Postoperative atrial fibrillation (HCC) [I97.89*11/25/2023 Bilateral hip pain [M25.551, M25.552] 02/08/2024 History of colonic polyps [Z86.0100] 07/19/2024 DM type 2 with diabetic mixed hyperlipidemia (H*03/12/2025 Obesity, Class I, BMI 30-34.9 [E66.811] 03/12/2025 Encounter Status:Closed by CALI CORDERO on 03/23/25 [facility] 03-22-2025 Telephone encounter Note OK to refill as ordered Cali Cordero MD [facility] 03-22-2025 Miscellaneous Notes OK to refill as ordered Cali Cordero MD Prescription Refill Information The patient has been identified by name and date of : Yes Caregiver verified no other encounters exist for this prescription request: Yes Caregiver confirmed with patient/requestor that no other refills are due, in the near future, with this provider at this time: No The last office visit in the department: 03/12/25 Does the patient have a future office visit with this provider/department: Yes Requested Prescriptions Pending Prescriptions Disp Refills lansoprazole (PREVACID) 30 mg capsule 30 capsule 11 Sig: Take 1 capsule by mouth daily before breakfast. 1/2 hr before meal. Madhuri Greenwood MA March 22, 2025 9:49 AM documented in this encounter [facility] 03-22-2025 Telephone encounter Note Prescription Refill Information The patient has been identified by name and date of : Yes Caregiver verified no other encounters exist for this prescription request: Yes Caregiver confirmed with patient/requestor that no other refills are due, in the near future, with this provider at this time: No The last office visit in the department: 03/12/25 Does the patient have a future office visit with this provider/department: Yes Requested Prescriptions Pending Prescriptions Disp Refills lansoprazole (PREVACID) 30 mg capsule 30 capsule 11 Sig: Take 1 capsule by mouth daily before breakfast. 1/2 hr before meal. Madhuri Greenwood MA March 22, 2025 9:49 AM [facility] 03-21-2025 Note HNO ID: [id number] Author: ?, ?, ? Service: ? Author Type: ? Type: Progress Notes Filed: 03/21/2025 12:33 Note Text: Patient is identified through a medication adherence outreach initiative based on pharmacy claims data from: [email or web address] Medication Adherence Category: Diabetes First Review Attribution Status: Correct attribution Medication(s) Ozempic 0.25 mg Medication Status per portal/[employer] Reconcile Dispense: Not filled Medication Status per Profile Review: Medication changed by healthcare provider Patient/provider appropriate for outreach? No Reason patient/provider not appropriate for outreach:Medication was changed to Mounjaro and filled 03/12/2025 for 28 days Carine De Leon [facility] 03-21-2025 History of Present illness Narrative Patient is identified through a medication adherence outreach initiative based on pharmacy claims data from: [email or web address] Medication Adherence Category: Diabetes First Review Attribution Status: Correct attribution Medication(s) Ozempic 0.25 mg Medication Status per portal/[employer] Reconcile Dispense: Not filled Medication Status per Profile Review: Medication changed by healthcare provider Patient/provider appropriate for outreach? No Reason patient/provider not appropriate for outreach:Medication was changed to Mounjaro and filled 03/12/2025 for 28 days Carine De Leon [facility] Team documented in this encounter [facility] 03-21-2025 Note Patient Outreach (PH POHE) DENTON WESLEY ([id number]) 1950 M Date Time Provider Department 03/[facility] During your visit today, we recorded the following information about you: Carine De Leon 03/21/2025 12:33 PM Signed Patient is identified through a medication adherence outreach initiative based on pharmacy claims data from: [email or web address] Medication Adherence Category: Diabetes First Review Attribution Status: Correct attribution Medication(s) Ozempic 0.25 mg Medication Status per portal/Epic Reconcile Dispense: Not filled Medication Status per Profile Review: Medication changed by healthcare provider Patient/provider appropriate for outreach? No Reason patient/provider not appropriate for outreach:Medication was changed to Mounjaro and filled 03/12/2025 for 28 days Carine De Leon [facility] Team Allergies As of Date: 03/21/2025 Noted Allergy Reaction GEMFIBROZIL 09/25/2019 5 - Intolerance ROSUVASTATIN 09/25/2019 5 - Intolerance SIMVASTATIN 09/25/2019 5 - Intolerance IMDUR (ISOSORBIDE) 03/05/2022 5 - Intolerance Comments: Headaches, upset stomach, fatigue PENICILLINS 02/10/2007 5 - Intolerance Comments: passed out and felt like I had the flu Pt states he's no longer allergic to this, he's taken tests w/out issues. PRAVASTATIN 08/07/2021 17 - Myalgia Date Reviewed: 03/12/2025 Reviewed by: Debo Meadows LPN - Fully Assessed Reason for Visit: Allied Health Visit [5] Cmt: Medication Adherence Outreach Prescriptions as of 03/21/2025 - tirzepatide (MOUNJARO) 2.5 mg/0.5 mL pen injector Inject 2.5 mg subcutaneously one time a week. - albuterol HFA (PROVENTIL HFA, VENTOLIN HFA) 90 mcg/actuation inhaler Inhale 2 puffs as instructed every 4 hours as needed for wheezing/shortness of breath. - carvedilol (COREG) 25 mg tablet Take 1 tablet by mouth two times a day. - apixaban (ELIQUIS) 5 mg tab(s) Take 1 tablet by mouth two times a day. - evolocumab (REPATHA SURECLICK) 140 mg/mL pen injector Inject 140 mg subcutaneously every 2 weeks. - losartan (COZAAR) 100 mg tablet Take 1 tablet by mouth once daily. - lansoprazole (PREVACID) 30 mg capsule Take 1 capsule by mouth daily before breakfast. 1/2 hr before meal. - aspirin, enteric coated (ECOTRIN LOW STRENGTH) 81 mg EC tablet Take 1 tablet by mouth once daily. - guaiFENesin (MUCINEX) 600 mg 12 hr tablet Take 1 tablet by mouth twice daily as needed for cold/allergy symptoms. - loratadine (CLARITIN) 10 mg tablet Take 1 tablet by mouth once daily. - nitroglycerin sublingual (NITROQUICK) 0.4 mg SL tablet Dissolve 0.4 mg under the tongue every 5 minutes as needed. - ADVAIR DISKUS 500-50 mcg/dose dsdv INHALE 1 (ONE) puff EVERY 12 HOURS Problem List As Of Date 03/21/2025 Noted Resolved SUBCUTANEOUS NODULES [R22.9] 02/21/2007 Dark urine [R82.998] 10/05/2013 Abdominal pain, other specified site [R10.9] Elevated glucose [R73.09] 01/29/2020 Coronary artery disease of nome artery of kevin*01/29/2020 Mixed hyperlipidemia [E78.2] 01/29/2020 Essential hypertension [I10] 01/29/2020 S/P right coronary artery (RCA) stent placement*06/24/2021 Pure hypercholesterolemia [E78.00] 08/13/2021 Elevated PSA [R97.20] 03/11/2022 Stable angina (HCC) [I20.89] 06/10/2022 Dyspnea on exertion [R06.09] 06/10/2022 S/P CABG x 2 [Z95.1] 10/16/2022 Type 2 diabetes mellitus without complication, *12/11/2022 Prostate cancer (HCC) [C61] 07/30/2023 Postoperative atrial fibrillation (HCC) [I97.89*11/25/2023 Bilateral hip pain [M25.551, M25.552] 02/08/2024 History of colonic polyps [Z86.0100] 07/19/2024 DM type 2 with diabetic mixed hyperlipidemia (H*03/12/2025 Obesity, Class I, BMI 30-34.9 [E66.811] 03/12/2025 Encounter Status:Closed by CARINE DE LEON on 03/21/25 [facility] 03-12-2025 Instructions Melva Lozada APRN.TECHNICAL SUPPORT CONSULTANT - 03/12/2025 3:27 PM EDT Start your mounjaro injection weekly check blood sugars fasting in the morning and bring log to next visit documented in this encounter [facility] 03-12-2025 History of Present illness Narrative This is a 74 year old male who presents today with: Denton Wesley is a 74-year-old male with a history of HTN, DM, and asthma, presenting for a blood pressure check and follow-up on recent sinus infection and chest congestion. HISTORY OF PRESENT ILLNESS: Hypertension: - Recent BP readings in the 170s; today's reading is 120/60 mmHg. - Not currently taking amlodipine Diabetes Mellitus: - Recent A1c: 7.6%. - Not currently taking glipizide -stopped Ozempic due to GI side effects, but daughter mentioned to him another injectable that he may tolerate better (mounjaro) and he would be willing to try this -he doesn't recall why he isn't taking the glipizide anymore, recalls being on farxiga years ago from Dr Rodgers and tolerated that. Unsure reason he is no longer on that- Recent blood glucose readings, he reports he doesn't check it every day but has a machine that keeps track of it. He said he had to leave work recently because he didn't feel good so he checked it and it was above 250. Sinus Infection: - Recent sinus infection; stopped antibiotics after 5 days due to GI side effects. - Reports improvement in symptoms although still getting over it Chest Congestion: - Persistent chest congestion x3 weeks; reports gradual improvement. - Asthma previously well-controlled with Xolair injections until October; insurance discontinued coverage. - Currently using Advair inhaler. - he has follow up with [facility] to discuss Dupixent 09/06/24 14:49 11/16/24 13:06 11/27/24 10:49 12/15/24 14:27 02/20/25 09:28 03/06/25 13:38 03/12/25 15:08 BP 132/82 138/80 149/93 142/78 137/73 172/70 120/60 PAST MEDICAL HISTORY: PAST MEDICAL HISTORY Diagnosis Date Abdominal aortic aneurysm (AAA) Abdominal pain, other specified site Asthma (HCC) Awareness under anesthesia CAD (coronary artery disease) Cholelithiasis 09/25/2013 Colitis Diabetes mellitus (HCC) type 2 diet controlled Elevated prostate specific antigen (PSA) Esophageal reflux Gastroesophageal reflux Hypertension Impotence of organic origin Impotence Nocturia SUJEY (obstructive sleep apnea) Post-void dribbling Prostate cancer (HCC) RUQ abdominal pain 09/25/2013 PAST SURGICAL HISTORY Procedure Laterality Date CABG (2) VEIN GRAFTS & ARTERIAL GRAFT(S 10/16/2022 COLONOSCOPY FLX DX W/COLLJ SPEC WHEN PFRMD Colonoscopy Dr. Ferreira ESOPHAGOGASTRODUODENOSCOPY TRANSORAL DIAGNOSTIC EGD Dr. Ferreira LAPAROSCOPY SURG CHOLECYSTECTOMY 09/25/2013 PAST SURGICAL HISTORY OF I&D left hand PAST SURGICAL HISTORY OF Removal cyst on back PROSTATE BIOPSY GUKI 07/14/2022 STENT PLACEMENT 4 Stents ALLERGIES Gemfibrozil, Rosuvastatin, Simvastatin, Imdur [Isosorbide], Penicillins, and Pravastatin MEDICATIONS Current Outpatient Medications Medication Sig albuterol HFA (PROVENTIL HFA, VENTOLIN HFA) 90 mcg/actuation inhaler Inhale 2 puffs as instructed every 4 hours as needed for wheezing/shortness of breath. carvedilol (COREG) 25 mg tablet Take 1 tablet by mouth two times a day. apixaban (ELIQUIS) 5 mg tab(s) Take 1 tablet by mouth two times a day. evolocumab (REPATHA SURECLICK) 140 mg/mL pen injector Inject 140 mg subcutaneously every 2 weeks. losartan (COZAAR) 100 mg tablet Take 1 tablet by mouth once daily. aspirin, enteric coated (ECOTRIN LOW STRENGTH) 81 mg EC tablet Take 1 tablet by mouth once daily. guaiFENesin (MUCINEX) 600 mg 12 hr tablet Take 1 tablet by mouth twice daily as needed for cold/allergy symptoms. loratadine (CLARITIN) 10 mg tablet Take 1 tablet by mouth once daily. nitroglycerin sublingual (NITROQUICK) 0.4 mg SL tablet Dissolve 0.4 mg under the tongue every 5 minutes as needed. tirzepatide (MOUNJARO) 2.5 mg/0.5 mL pen injector Inject 2.5 mg subcutaneously one time a week. lansoprazole (PREVACID) 30 mg capsule Take 1 capsule by mouth daily before breakfast. 1/2 hr before meal. ADVAIR DISKUS 500-50 mcg/dose dsdv INHALE 1 (ONE) puff EVERY 12 HOURS No current facility-administered medications for this visit. FAMILY HISTORY Problem Relation Age of Onset Colon Cancer Mother Heart Mother Ovarian cancer Mother Prostate Cancer Brother Stroke Brother Emphysema Father Social History Tobacco Use Smoking status: Every Day Current packs/day: 0.25 Average packs/day: 0.3 packs/day for 1.5 years (0.4 ttl pk-yrs) Types: Cigarettes Start date: 08/25/2023 Smokeless tobacco: Never Tobacco comments: Resumed last week after the of his spouse Vaping Use Vaping status: Never Used Substance Use Topics Alcohol use: Yes Comment: 1 beer in the evening occasionally Drug use: No REVIEW OF SYSTEMS Cardiovascular: (-) lower extremity swelling Respiratory: (+) chest congestion, (+) wheezing Gastrointestinal: (+) abdominal cramping See HPI EXAM: BP 120/60 (BP Site: Left Arm, BP Position: Sitting, BP Cuff Size: Large Adult) Pulse 70 Resp 14 Wt 102.5 kg (226 lb) SpO2 99% BMI 30.65 kg/m PHYSICAL EXAM: General Appearance: Well appearing, alert, in no acute distress, well-hydrated, well nourished.. Skin: Skin color, texture, turgor normal, no suspicious rashes or lesions. Lungs: Positive findings: wheezes throughout expiratory Heart: RRR without murmur, gallop, or rubs. No ectopy. Abdomen: Positive findings: distended, BS x 4 Extremities: No deformities, edema, skin discoloration, clubbing or cyanosis. Good capillary refill. . ASSESSMENT/PLAN 1. Essential hypertension (I10) - Blood pressure today is well-controlled at 120/60 mmHg. - Previously recorded BP was in the 170s. - Continue current management -coreg as ordered -losartan as ordered 2. 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) (E11.69) - Hemoglobin A1c is 7.6%, slightly improved from previous measurement but still above target. - Discontinued Ozempic due to gastrointestinal side effects; not currently taking glipizide or Farxiga. - Initiated Mounjaro 2.5 mg once weekly; prescription sent to [facility]. - Advised to monitor blood glucose levels daily, preferably fasting in the morning, and maintain a log for review at next follow-up. - Follow-up appointment scheduled in one month to assess tolerance and efficacy of Mounjaro, with potential dose escalation. -hgba1c in 3 months 3. Obesity, Class I, BMI 30-34.9 (E66.811) - Discussed weight management as part of diabetes control. - Mounjaro may also aid in weight reduction. -follow up in one month Discussed treatment plan and patient voices understanding. Patient's questions answered appropriately. Medications and potential side effects were discussed and patient voices understanding. Return to the office as scheduled or as needed for worsening/no improvement. Melva Lozada APRN.TECHNICAL SUPPORT CONSULTANT Recording using [employer] software for draft documentation of the visit was discussed with the patient/authorized home office representative; all questions welcomed and answered. Patient/authorized home office representative agreed to proceed documented in this encounter [facility] 03-12-2025 Note HNO ID: [id number] Author: MELVA LOZADA APRN.CNP Service: ? Author Type: Nurse Practitioner Type: Progress Notes Filed: 03/12/2025 15:49 Note Text: This is a 74 year old male who presents today with: Denton Wesley is a 74-year-old male with a history of HTN, DM, and asthma, presenting for a blood pressure check and follow-up on recent sinus infection and chest congestion. HISTORY OF PRESENT ILLNESS: Hypertension: - Recent BP readings in the 170s; today's reading is 120/60 mmHg. - Not currently taking amlodipine Diabetes Mellitus: - Recent A1c: 7.6%. - Not currently taking glipizide -stopped Ozempic due to GI side effects, but daughter mentioned to him another injectable that he may tolerate better (mounjaro) and he would be willing to try this -he doesn't recall why he isn't taking the glipizide anymore, recalls being on farxiga years ago from Dr Rodgers and tolerated that. Unsure reason he is no longer on that- Recent blood glucose readings, he reports he doesn't check it every day but has a machine that keeps track of it. He said he had to leave work recently because he didn't feel good so he checked it and it was above 250. Sinus Infection: - Recent sinus infection; stopped antibiotics after 5 days due to GI side effects. - Reports improvement in symptoms although still getting over it Chest Congestion: - Persistent chest congestion x3 weeks; reports gradual improvement. - Asthma previously well-controlled with Xolair injections until October; insurance discontinued coverage. - Currently using Advair inhaler. - he has follow up with [facility] to discuss Dupixent 09/06/24 14:49 11/16/24 13:06 11/27/24 10:49 12/15/24 14:27 02/20/25 09:28 03/06/25 13:38 03/12/25 15:08 BP 132/82 138/80 149/93 142/78 137/73 172/70 120/60 PAST MEDICAL HISTORY: PAST MEDICAL HISTORY Diagnosis Date Abdominal aortic aneurysm (AAA) Abdominal pain, other specified site Asthma (HCC) Awareness under anesthesia CAD (coronary artery disease) Cholelithiasis 09/25/2013 Colitis Diabetes mellitus (HCC) type 2 diet controlled Elevated prostate specific antigen (PSA) Esophageal reflux Gastroesophageal reflux Hypertension Impotence of organic origin Impotence Nocturia SUJEY (obstructive sleep apnea) Post-void dribbling Prostate cancer (HCC) RUQ abdominal pain 09/25/2013 PAST SURGICAL HISTORY Procedure Laterality Date CABG (2) VEIN GRAFTS AND ARTERIAL GRAFT(S 10/16/2022 COLONOSCOPY FLX DX W/COLLJ SPEC WHEN PFRMD Colonoscopy Dr. Ferreira ESOPHAGOGASTRODUODENOSCOPY TRANSORAL DIAGNOSTIC EGD Dr. Ferreira LAPAROSCOPY SURG CHOLECYSTECTOMY 09/25/2013 PAST SURGICAL HISTORY OF IANDD left hand PAST SURGICAL HISTORY OF Removal cyst on back PROSTATE BIOPSY GUKI 07/14/2022 STENT PLACEMENT 4 Stents ALLERGIES Gemfibrozil, Rosuvastatin, Simvastatin, Imdur [Isosorbide], Penicillins, and Pravastatin MEDICATIONS Current Outpatient Medications Medication Sig albuterol HFA (PROVENTIL HFA, VENTOLIN HFA) 90 mcg/actuation inhaler Inhale 2 puffs as instructed every 4 hours as needed for wheezing/shortness of breath. carvedilol (COREG) 25 mg tablet Take 1 tablet by mouth two times a day. apixaban (ELIQUIS) 5 mg tab(s) Take 1 tablet by mouth two times a day. evolocumab (REPATHA SURECLICK) 140 mg/mL pen injector Inject 140 mg subcutaneously every 2 weeks. losartan (COZAAR) 100 mg tablet Take 1 tablet by mouth once daily. aspirin, enteric coated (ECOTRIN LOW STRENGTH) 81 mg EC tablet Take 1 tablet by mouth once daily. guaiFENesin (MUCINEX) 600 mg 12 hr tablet Take 1 tablet by mouth twice daily as needed for cold/allergy symptoms. loratadine (CLARITIN) 10 mg tablet Take 1 tablet by mouth once daily. nitroglycerin sublingual (NITROQUICK) 0.4 mg SL tablet Dissolve 0.4 mg under the tongue every 5 minutes as needed. tirzepatide (MOUNJARO) 2.5 mg/0.5 mL pen injector Inject 2.5 mg subcutaneously one time a week. lansoprazole (PREVACID) 30 mg capsule Take 1 capsule by mouth daily before breakfast. 1/2 hr before meal. ADVAIR DISKUS 500-50 mcg/dose dsdv INHALE 1 (ONE) puff EVERY 12 HOURS No current facility-administered medications for this visit. FAMILY HISTORY Problem Relation Age of Onset Colon Cancer Mother Heart Mother Ovarian cancer Mother Prostate Cancer Brother Stroke Brother Emphysema Father Social History Tobacco Use Smoking status: Every Day Current packs/day: 0.25 Average packs/day: 0.3 packs/day for 1.5 years (0.4 ttl pk-yrs) Types: Cigarettes Start date: 08/25/2023 Smokeless tobacco: Never Tobacco comments: Resumed last week after the of his spouse Vaping Use Vaping status: Never Used Substance Use Topics Alcohol use: Yes Comment: 1 beer in the evening occasionally Drug use: No REVIEW OF SYSTEMS Cardiovascular: (-) lower extremity swelling Respiratory: (+) chest congestion, (+) wheezing Gastrointest (more content not included)... [facility] 03-07-2025 Note HNO ID: [id number] Author: DORIS HERNÁNDEZ PA-C Service: ? Author Type: Physician Business Banking Sales Assistant Type: Progress Notes Filed: 03/07/2025 11:37 Note Text: Recording using [employer] software for draft documentation of the visit was discussed with the patient/authorized home office representative; all questions welcomed and answered. Patient/authorized home office representative agreed to proceed 03/06/2025 Sinus Congestion: - Onset approximately 2 weeks ago, initially presenting with a sore throat. - Symptoms include significant sinus pressure, discomfort, and persistent rhinorrhea. - Rhinorrhea described as clear with occasional thick yellow discharge. - Denies recent fever; initial low-grade fever resolved. - Using Claritin daily and Nasacort nasal spray for symptom management. - History of sinus surgery 7 years ago. Chest Congestion - Onset shortly after initial sore throat. - Described as a sensation of tightness in the chest and congest. - Associated with coughing and shortness of breath. overall slighlty improved. - Recent chest X-ray showed no significant findings. - Sputum culture performed by [facility] revealed normal larry. - Completed a 5-day course of doxycycline with minimal improvement. pulmonary prescribed a short course of prednisone. Hyperlipidemia: - Managed with Repatha injections. - Recent cholesterol levels reported as well-controlled. Current Outpatient Medications on File Prior to Visit Medication Sig albuterol HFA (PROVENTIL HFA, VENTOLIN HFA) 90 mcg/actuation inhaler Inhale 2 puffs as instructed every 4 hours as needed for wheezing/shortness of breath. carvedilol (COREG) 25 mg tablet Take 1 tablet by mouth two times a day. apixaban (ELIQUIS) 5 mg tab(s) Take 1 tablet by mouth two times a day. evolocumab (REPATHA SURECLICK) 140 mg/mL pen injector Inject 140 mg subcutaneously every 2 weeks. losartan (COZAAR) 100 mg tablet Take 1 tablet by mouth once daily. lansoprazole (PREVACID) 30 mg capsule Take 1 capsule by mouth daily before breakfast. 1/2 hr before meal. aspirin, enteric coated (ECOTRIN LOW STRENGTH) 81 mg EC tablet Take 1 tablet by mouth once daily. guaiFENesin (MUCINEX) 600 mg 12 hr tablet Take 1 tablet by mouth twice daily as needed for cold/allergy symptoms. loratadine (CLARITIN) 10 mg tablet Take 1 tablet by mouth once daily. nitroglycerin sublingual (NITROQUICK) 0.4 mg SL tablet Dissolve 0.4 mg under the tongue every 5 minutes as needed. glipiZIDE (GLUCOTROL XL) 5 mg 24 hr tablet Take 1 tablet by mouth once daily. amLODIPine (NORVASC) 5 mg tablet Take 1 tablet by mouth once daily. ADVAIR DISKUS 500-50 mcg/dose dsdv INHALE 1 (ONE) puff EVERY 12 HOURS No current facility-administered medications on file prior to visit. PAST MEDICAL HISTORY Diagnosis Date Abdominal aortic aneurysm (AAA) Abdominal pain, other specified site Asthma (HCC) Awareness under anesthesia CAD (coronary artery disease) Cholelithiasis 09/25/2013 Colitis Diabetes mellitus (HCC) type 2 diet controlled Elevated prostate specific antigen (PSA) Esophageal reflux Gastroesophageal reflux Hypertension Impotence of organic origin Impotence Nocturia SUJEY (obstructive sleep apnea) Post-void dribbling Prostate cancer (HCC) RUQ abdominal pain 09/25/2013 Allergies: Gemfibrozil Intolerance Rosuvastatin Intolerance Simvastatin Intolerance Imdur [Isosorbide] Intolerance Comment:Headaches, upset stomach, fatigue Penicillins Intolerance Comment:passed out and felt like I had the flu Pt states he's no longer allergic to this, he's taken tests w/out issues. Pravastatin Myalgia Constitutional: (+) fatigue, (+) malaise, (-) fever Ears/Nose/Mouth/Throat: (+) nasal congestion, (+) rhinorrhea, (+) sneezing, (+) itchy watery eyes, (+) facial pressure, (+) facial pain Respiratory: (+) chest congestion, (+) cough, (+) mildshortness of breath, (+) chest tightness, no chest pain EXT (-) Leg edema, (-) calf pain BP 172/70 Pulse 75 Temp 36.7 ?C (98.1 ?F) (Oral) Resp 16 Wt 104.4 kg (230 lb 1.9 oz) SpO2 96% BMI 31.21 kg/m? GENERAL: NAD, alert and oriented. SKIN: Unremarkable, no rash or skin lesions. HEAD: Normocephalic. EYES: PERRLA, EOMI, conjunctiva clear. EARS: External ears normal, canals with cerumen, not impacted, TM's normal. NOSE/SINUSES: Nares normal. Septum midline. Maxillary sinuses with TTP ANGELA. OROPHARYNX: Lips, mucosa, and tongue normal, good dentition. No oral lesions noted. uvula midline. no exudate. NECK: Supple, no lymphadenopathy, LUNGS: Clear to auscultation bilaterally, no wheezes/rhonchi/rales. HEART: Regular rate and rhythm, no murmurs. No ectopy. EXTREMITIES: Normal, no deformities, no skin discoloration, no edema. NEURO: Awake, alert and oriented x3, cranial nerves II-XII grossly intact, normal gait, no involuntary motions. Labs: - Sputum culture: Normal larry Imaging: - Chest X-ray: No abnormal fi (more content not included)... [facility] 03-07-2025 History of Present illness Narrative Recording using ambient Alloptic software for draft documentation of the visit was discussed with the patient/authorized home office representative; all questions welcomed and answered. Patient/authorized home office representative agreed to proceed 03/06/2025 Sinus Congestion: - Onset approximately 2 weeks ago, initially presenting with a sore throat. - Symptoms include significant sinus pressure, discomfort, and persistent rhinorrhea. - Rhinorrhea described as clear with occasional thick yellow discharge. - Denies recent fever; initial low-grade fever resolved. - Using Claritin daily and Nasacort nasal spray for symptom management. - History of sinus surgery 7 years ago. Chest Congestion - Onset shortly after initial sore throat. - Described as a sensation of tightness in the chest and congest. - Associated with coughing and shortness of breath. overall slighlty improved. - Recent chest X-ray showed no significant findings. - Sputum culture performed by [facility] revealed normal larry. - Completed a 5-day course of doxycycline with minimal improvement. pulmonary prescribed a short course of prednisone. Hyperlipidemia: - Managed with Repatha injections. - Recent cholesterol levels reported as well-controlled. Current Outpatient Medications on File Prior to Visit Medication Sig albuterol HFA (PROVENTIL HFA, VENTOLIN HFA) 90 mcg/actuation inhaler Inhale 2 puffs as instructed every 4 hours as needed for wheezing/shortness of breath. carvedilol (COREG) 25 mg tablet Take 1 tablet by mouth two times a day. apixaban (ELIQUIS) 5 mg tab(s) Take 1 tablet by mouth two times a day. evolocumab (REPATHA SURECLICK) 140 mg/mL pen injector Inject 140 mg subcutaneously every 2 weeks. losartan (COZAAR) 100 mg tablet Take 1 tablet by mouth once daily. lansoprazole (PREVACID) 30 mg capsule Take 1 capsule by mouth daily before breakfast. 1/2 hr before meal. aspirin, enteric coated (ECOTRIN LOW STRENGTH) 81 mg EC tablet Take 1 tablet by mouth once daily. guaiFENesin (MUCINEX) 600 mg 12 hr tablet Take 1 tablet by mouth twice daily as needed for cold/allergy symptoms. loratadine (CLARITIN) 10 mg tablet Take 1 tablet by mouth once daily. nitroglycerin sublingual (NITROQUICK) 0.4 mg SL tablet Dissolve 0.4 mg under the tongue every 5 minutes as needed. glipiZIDE (GLUCOTROL XL) 5 mg 24 hr tablet Take 1 tablet by mouth once daily. amLODIPine (NORVASC) 5 mg tablet Take 1 tablet by mouth once daily. ADVAIR DISKUS 500-50 mcg/dose dsdv INHALE 1 (ONE) puff EVERY 12 HOURS No current facility-administered medications on file prior to visit. PAST MEDICAL HISTORY Diagnosis Date Abdominal aortic aneurysm (AAA) Abdominal pain, other specified site Asthma (HCC) Awareness under anesthesia CAD (coronary artery disease) Cholelithiasis 09/25/2013 Colitis Diabetes mellitus (HCC) type 2 diet controlled Elevated prostate specific antigen (PSA) Esophageal reflux Gastroesophageal reflux Hypertension Impotence of organic origin Impotence Nocturia SUJEY (obstructive sleep apnea) Post-void dribbling Prostate cancer (HCC) RUQ abdominal pain 09/25/2013 Allergies: Gemfibrozil Intolerance Rosuvastatin Intolerance Simvastatin Intolerance Imdur [Isosorbide] Intolerance Comment:Headaches, upset stomach, fatigue Penicillins Intolerance Comment:passed out and felt like I had the flu Pt states he's no longer allergic to this, he's taken tests w/out issues. Pravastatin Myalgia Constitutional: (+) fatigue, (+) malaise, (-) fever Ears/Nose/Mouth/Throat: (+) nasal congestion, (+) rhinorrhea, (+) sneezing, (+) itchy watery eyes, (+) facial pressure, (+) facial pain Respiratory: (+) chest congestion, (+) cough, (+) mildshortness of breath, (+) chest tightness, no chest pain EXT (-) Leg edema, (-) calf pain BP 172/70 Pulse 75 Temp 36.7 C (98.1 F) (Oral) Resp 16 Wt 104.4 kg (230 lb 1.9 oz) SpO2 96% BMI 31.21 kg/m GENERAL: NAD, alert and oriented. SKIN: Unremarkable, no rash or skin lesions. HEAD: Normocephalic. EYES: PERRLA, EOMI, conjunctiva clear. EARS: External ears normal, canals with cerumen, not impacted, TM's normal. NOSE/SINUSES: Nares normal. Septum midline. Maxillary sinuses with TTP ANGELA. OROPHARYNX: Lips, mucosa, and tongue normal, good dentition. No oral lesions noted. uvula midline. no exudate. NECK: Supple, no lymphadenopathy, LUNGS: Clear to auscultation bilaterally, no wheezes/rhonchi/rales. HEART: Regular rate and rhythm, no murmurs. No ectopy. EXTREMITIES: Normal, no deformities, no skin discoloration, no edema. NEURO: Awake, alert and oriented x3, cranial nerves II-XII grossly intact, normal gait, no involuntary motions. Labs: - Sputum culture: Normal larry Imaging: - Chest X-ray: No abnormal findings 1. Chest congestion (R09.89) 2. Acute recurrent maxillary sinusitis (J01.01) - Symptoms of chest congestion and sinusitis have persisted for over two weeks, with initial fever resolving. Recent sputum culture showed normal larry, and chest X-ray was unremarkable. - Previous treatment with doxycycline for 5 days provided minimal relief. - Nasal discharge is clear to thick with occasional thick yellow mucus; maxillary sinus tenderness noted on examination. - Initiated Augmentin 875 mg orally twice daily for 7 days; advised to take with food to minimize gastrointestinal side effects such as diarrhea. - Continue current use of Claritin and Nasacort. - Educated on the viral nature of most sinus infections, which can take up to 21 days to resolve. - Advised to monitor for improvement; if symptoms persist beyond 3-5 days, follow-up with ENT if not improving or PCI chest congestion/cough not resolving. - Instructed to seek immediate medical attention if experiencing severe chest pain, significant shortness of breath, or fever over 100 degreeF. The patient indicates understanding of these issues and agrees with the plan. Reviewed red flags and when to seek care sooner. Doris Hernández PA-C 03/07/2025 documented in this encounter [facility] 02-27-2025 Evaluation note Diagnosis Onset Date Resolution Obesity chronic February 27, 2025 3:15pm Severe persistent asthma chronic February 27, 2025 3 :15pm Smoking greater than 20 pack years chronic February 27, 2025 3 :15pm [facility] Work Phone: 1(223) 641-510205-27-2025 Evaluation note* Diagnosis Onset Date Resolution Status Admit Date Obesity chronic February 27, 2025 3:15pm Severe persistent asthma chronic February 27, 2025 3:15pm Smoking greater than 20 pack years chronic February 27, 2025 3 :15pm Obesity chronic May 01 3:21pm Severe persistent asthma chronic May 01, 2025 3:21pm Smoking greater than 20 pack years chronic May 01, 2025 3:21pm [facility] Work Phone: 1(928) 219-144605-27-2025 Evaluation note* Diagnosis Onset Date Resolution Status Admit Date Obesity chronic February 27, 2025 3:15pm Severe persistent asthma chronic February 27, 2025 3:15pm Smoking greater than 20 pack years chronic February 27, 2025 3 :15pm COPD (chronic obstructive pulmonary disease) chronic May 01 3:21pm Obesity chronic May 01 3:21pm Severe persistent asthma chronic May 01, 2025 3:21pm Smoking greater than 20 pack years chronic May 01, 2025 3:21pm [facility] Work Phone: 1(873) 879-562305-21-2025 NoteHNO ID: [id number] Author: DORIS HERNÁNDEZ PA-C Service: ? Author Type: Physician Business Banking Sales Assistant Type: Progress Notes Filed: 02/21/2025 10:04 Note Text: Recording using [employer] software for draft documentation of the visit was discussed with the patient/authorized home office representative; all questions welcomed and answered. Patient/authorized home office representative agreed to proceed 02/21/2025 Cough and Dyspnea: - Onset of cough on Wednesday, preceded by chest tightness on Wednesday night. No chest pain. - Cough is persistent and difficult to stop once it starts. - Associated with dyspnea and fatigue. - Denies ear pain, calf pain, or leg swelling. - History of asthma; previously managed with Xolair injections, discontinued due to high copay. - Does not use Advair due to perceived worsening of symptoms. - Denies current use of a rescue inhaler. - History of pneumonia in April of last year. - Smoker. Fever: - Fever of 101.8 degreeF last night, reportedly decreased this morning. - Associated with body aches. - Denies any other household members being sick. Diabetes: - Last HbA1c was 7.0%. - Has been on Prednisone before, which reportedly makes him sleepy. Current Outpatient Medications on File Prior to Visit Medication Sig carvedilol (COREG) 25 mg tablet Take 1 tablet by mouth two times a day. apixaban (ELIQUIS) 5 mg tab(s) Take 1 tablet by mouth two times a day. evolocumab (REPATHA SURECLICK) 140 mg/mL pen injector Inject 140 mg subcutaneously every 2 weeks. famotidine (PEPCID) 20 mg tablet Take 1 tablet by mouth at bedtime as needed (Heartburn). losartan (COZAAR) 100 mg tablet Take 1 tablet by mouth once daily. lansoprazole (PREVACID) 30 mg capsule Take 1 capsule by mouth daily before breakfast. 1/2 hr before meal. aspirin, enteric coated (ECOTRIN LOW STRENGTH) 81 mg EC tablet Take 1 tablet by mouth once daily. guaiFENesin (MUCINEX) 600 mg 12 hr tablet Take 1 tablet by mouth twice daily as needed for cold/allergy symptoms. loratadine (CLARITIN) 10 mg tablet Take 1 tablet by mouth once daily. nitroglycerin sublingual (NITROQUICK) 0.4 mg SL tablet Dissolve 0.4 mg under the tongue every 5 minutes as needed. semaglutide (OZEMPIC) 0.25 mg or 0.5 mg (2 mg/3 mL) pen Inject 0.5 mg subcutaneously one time a week. (Patient not taking: Reported on 02/20/2025) glipiZIDE (GLUCOTROL XL) 5 mg 24 hr tablet Take 1 tablet by mouth once daily. amLODIPine (NORVASC) 5 mg tablet Take 1 tablet by mouth once daily. ADVAIR DISKUS 500-50 mcg/dose dsdv INHALE 1 (ONE) puff EVERY 12 HOURS No current facility-administered medications on file prior to visit. PAST MEDICAL HISTORY Diagnosis Date Abdominal aortic aneurysm (AAA) Abdominal pain, other specified site Asthma (HCC) Awareness under anesthesia CAD (coronary artery disease) Cholelithiasis 09/25/2013 Colitis Diabetes mellitus (HCC) type 2 diet controlled Elevated prostate specific antigen (PSA) Esophageal reflux Gastroesophageal reflux Hypertension Impotence of organic origin Impotence Nocturia SUJEY (obstructive sleep apnea) Post-void dribbling Prostate cancer (HCC) RUQ abdominal pain 09/25/2013 Allergies: Gemfibrozil Intolerance Rosuvastatin Intolerance Simvastatin Intolerance Imdur [Isosorbide] Intolerance Comment:Headaches, upset stomach, fatigue Penicillins Intolerance Comment:passed out and felt like I had the flu Pt states he's no longer allergic to this, he's taken tests w/out issues. Pravastatin Myalgia Constitutional: (+) fever, (+) fatigue, (+) myalgia Ears/Nose/Mouth/Throat: (+) congestion, (-) ear pain Respiratory: (+) cough, (+) shortness of breath, (+) chest tightness Musculoskeletal: (-) calf pain, (-) leg swelling BP 137/73 Pulse 85 Temp 37.2 ?C (98.9 ?F) (Oral) Resp 18 Wt 102.4 kg (225 lb 12.8 oz) SpO2 98% BMI 30.62 kg/m? GENERAL: NAD, alert and oriented. SKIN: Unremarkable, no rash or skin lesions. HEAD: Normocephalic. EYES: PERRLA, EOMI, conjunctiva clear. EARS: External ears normal, canals clear, TM's normal. NOSE/SINUSES: Nares normal. Septum midline. OROPHARYNX: Lips, mucosa, and tongue normal, good dentition. No oral lesions noted. NECK: Supple, no lymphadenopathy, normal thyroid, no carotid bruits. LUNGS: + Coarse breath sounds ANGELA, scattered expiratory wheeze. equal breath sounds ANGELA> HEART: Regular rate and rhythm, EXTREMITIES: Normal, no deformities, no skin discoloration, no edema. NEURO: Awake, alert and oriented x3 Imaging: - (Today) Chest X-ray: No evidence of pneumonia. Mild atelectasis noted in lingula, 1. Acute cough (R05.1) - Onset of cough on Wednesday, accompanied by chest tightness, shortness of breath, fatigue, and fever up to 101.8 degreeF. - Chest X-ray ordered and reviewed; no obvious pneumonia, but noted atelectasis. - Initiated doxycycline 100 mg BID for 5 days; advised on sun sensitivity and use of sunscreen. - Prescribed p (more content not included)...[facility] 02-20-2025 NoteHNO ID: [id number] Author: SOCORRO COLVIN RT(R) Service: ? Author Type: Dye Machine Operator Type: Progress Notes Filed: 02/20/2025 10:54 Note Text: Radiology Service Progress Note PATIENT NAME: Denton Wesley DATE OF SERVICE: February 20, 2025 TIME: 10:49 AM PATIENT IDENTITY VERIFICATION COMPLETED USING TWO (2) IDENTIFIERS: Name and Date of confirmed by patient verbally. FALL SCREENING: Has the patient had 2 falls in the last year or 1 fall with injury or currently using an Ambulatory Assistive Device (Walker, Cane, Wheelchair, Crutches, etc.)? No PATIENT GENDER DATA: Assigned male at PATIENT RELEVANT IMPLANT DATA REVIEWED: Yes PATIENT PRESENTS WITH AN IMPLANTABLE OR ATTACHED HEAD LINEMAN: No RADIOLOGY DEPARTMENT: General X-ray: Exam(s) Completed: Chest X-Ray PERIPHERAL IV DATA: Not applicable SIGNED BY: RT Lenin(R) February 20, 2025 10:49 [facility]05-05-2025 NoteHNO ID: [id number] Author: GERRI WILLS CPhT Service: ? Author Type: Punch Machine Hand Type: Progress Notes Filed: 02/05/2025 12:44 Note Text: Patient is identified through a medication adherence outreach initiative based on pharmacy claims data from: [email or web address] Medication Adherence Category: Diabetes First Review Attribution Status: Correct Attribution Medication(s) Ozempic 0.5 mg Medication Status per portal/Epic Reconcile Dispense: Filled late - Within 7 days after next fill date Date Filled (MM/DD): 02/03 Day Supply: 28 Medication Status per Profile Review: No issues per profile review Patient appropriate for outreach? No Reason patient not appropriate for outreach:Patient filled on time / no adherence concerns to be addressed Gerri iWlls CPhT [facility] History of Present illness Narrative* Gerri Wills CPhT - 02/05/2025 12:42 PM EDT Patient is identified through a medication adherence outreach initiative based on pharmacy claims data from: [employer] Medication Adherence Category: Diabetes First Review Attribution Status: Correct Attribution Medication(s) Ozempic 0.5 mg Medication Status per portal/Epic Reconcile Dispense: Filled late - Within 7 days after next filldate Date Filled (MM/DD): 02/03 Day Supply: 28 Medication Status per Profile Review: No issues per profile review Patient appropriate for outreach? No Reason patient not appropriate for outreach:Patient filled on time / no adherence concerns to be addressed Gerri Wills CPhT [facility] NotePatient Outreach (PHPOHE) LUPILLODENTON SANTOS ([id number]) 1950 M Date Time Provider Department 02/05/25 CALI CORDERO During your visit today, we recorded the following information about you: Gerri Wills CPhT 02/05/2025 12:44 PM Signed Patient is identified through a medication adherence outreach initiative based on pharmacy claims data from: [email or web address] Medication Adherence Category: Diabetes First Review Attribution Status: Correct Attribution Medication(s) Ozempic 0.5 mg Medication Status per portal/Epic Reconcile Dispense: Filled late - Within 7 days after next fill date Date Filled (MM/DD): 02/03 Day Supply: 28 Medication Status per Profile Review: No issues per profile review Patient appropriate for outreach? No Reason patient not appropriate for outreach:Patient filled on time / no adherence concerns to be addressed Gerri Wills CPhT [facility] Team Allergies As of Date: 02/05/2025 Noted Allergy Reaction GEMFIBROZIL 09/25/2019 5 - Intolerance ROSUVASTATIN 09/25/2019 5 - Intolerance SIMVASTATIN 09/25/2019 5 - Intolerance IMDUR (ISOSORBIDE) 03/05/2022 5 - Intolerance Comments: Headaches, upset stomach, fatigue PENICILLINS 02/10/2007 5 - Intolerance Comments: passed out and felt like I had the flu Pt states he's no longer allergic to this, he's taken tests w/out issues. PRAVASTATIN 08/07/2021 17 - Myalgia Date Reviewed: 12/15/2024 Reviewed by: Lorenza Bravo MA - Fully Assessed Reason for Visit: Allied Health Visit [5] Cmt: Medication Adherence Outreach Prescriptions as of 02/05/2025 - carvedilol (COREG) 25 mg tablet Take 1 tablet by mouth two times a day. - apixaban (ELIQUIS) 5 mg tab(s) Take 1 tablet by mouth two times a day. - semaglutide (OZEMPIC) 0.25 mg or 0.5 mg (2 mg/3 mL) pen Inject 0.5 mg subcutaneously one time a week. - glipiZIDE (GLUCOTROL XL) 5 mg 24 hr tablet Take 1 tablet by mouth once daily. - evolocumab (REPATHA SURECLICK) 140 mg/mL pen injector Inject 140 mg subcutaneously every 2 weeks. - famotidine (PEPCID) 20 mg tablet Take 1 tablet by mouth at bedtime as needed (Heartburn). - amLODIPine (NORVASC) 5 mg tablet Take 1 tablet by mouth once daily. - losartan (COZAAR) 100 mg tablet Take 1 tablet by mouth once daily. - lansoprazole (PREVACID) 30 mg capsule Take 1 capsule by mouth daily before breakfast. 1/2 hr before meal. - aspirin, enteric coated (ECOTRIN LOW STRENGTH) 81 mg EC tablet Take 1 tablet by mouth once daily. - guaiFENesin (MUCINEX) 600 mg 12 hr tablet Take 1 tablet by mouth twice daily as needed for cold/allergy symptoms. - loratadine (CLARITIN) 10 mg tablet Take 1 tablet by mouth once daily. - nitroglycerin sublingual (NITROQUICK) 0.4 mg SL tablet Dissolve 0.4 mg under the tongue every 5 minutes as needed. - ADVAIR DISKUS 500-50 mcg/dose dsdv INHALE 1 (ONE) puff EVERY 12 HOURS Problem List As Of Date 02/05/2025 Noted Resolved SUBCUTANEOUS NODULES [R22.9] 02/21/2007 Dark urine [R82.998] 10/05/2013 Abdominal pain, other specified site [R10.9] Elevated glucose [R73.09] 01/29/2020 Coronary artery disease of nome artery of kevin*01/29/2020 Mixed hyperlipidemia [E78.2] 01/29/2020 Essential hypertension [I10] 01/29/2020 S/P right coronary artery (RCA) stent placement*06/24/2021 Pure hypercholesterolemia [E78.00] 08/13/2021 Elevated PSA [R97.20] 03/11/2022 Stable angina (HCC) [I20.89] 06/10/2022 Dyspnea on exertion [R06.09] 06/10/2022 S/P CABG x 2 [Z95.1] 10/16/2022 Type 2 diabetes mellitus without complication, *12/11/2022 Prostate cancer (HCC) [C61] 07/30/2023 Postoperative atrial fibrillation (HCC) [I97.89*11/25/2023 Bilateral hip pain [M25.551, M25.552] 02/08/2024 History of colonic polyps [Z86.0100] 07/19/2024 Encounter Status:Closed by GERRI WILLS on 02/05/25[facility] Telephone encounter Note* Telephone Encounter - Angelita Max APRN.CNP - 01/17/2025 4:17 PM EDT Prescription written as requested. Angelita Max APRN.CNP [facility]04-16-2025 Miscellaneous Notes* Telephone Encounter - Angelita Max APRN.CNP - 01/17/2025 4:17 PM EDT Prescription written as requested. Angelita Max APRN.TECHNICAL SUPPORT CONSULTANT documented [facility]25 NoteHNO ID: [id number] Author: JANIA MCNULTY MA Service: ? Author Type: Covering And Lining Supervisor Type: Progress Notes Filed: 01/10/2025 09:45 Note Text: POPULATION HEALTH NAVIGATION OUTREACH Action/FYI Gaps due: AWV BP DIABETIC RETINAL EXAM White 07/19 LVM/MCM Reason for Outreach Care Gap/HCC or Scheduling Wellness Visits Care Gaps due: Medicare Annual Wellness Visit Controlling Blood Pressure Colorectal Cancer Screening Diabetic Eye Exam Patient Contacted: Unable or unnecessary to reach patient: Left message Splithart message sent HCC related Navigation Signature: Jania Mcnulty MA January 10, 2025 9:42 [facility]04-09-2025 History of Present illness Narrative* Jania Mcnulty MA - 01/10/2025 9:42 AM EDT POPULATION HEALTH NAVIGATION OUTREACH Action/FYI Gaps due: AWV BP DIABETIC RETINAL EXAM White 07/19 LVM/MCM Reason for Outreach Care Gap/HCC or Scheduling Wellness Visits Care Gaps due: Medicare Annual Wellness Visit Controlling Blood Pressure Colorectal Cancer Screening Diabetic Eye Exam Patient Contacted: Unable or unnecessary to reach patient: Left message [employer]ert message sent [facility] related Navigation Signature: Jania Mcnulty MA January 10, 2025 9:42 AM documented in this encounter[facility]25 NotePatient Outreach (NETNAV) DENTON WESLEY ([id number]) 1950 M Date Time Provider Department 01/10/25 JANIA MCNULTY During your visit today, we recorded the following information about you: Jania Mcnulty MA 01/10/2025 9:45 AM Signed POPULATION HEALTH NAVIGATION OUTREACH Action/FYI Gaps due: AWV BP DIABETIC RETINAL EXAM White 07/19 LVM/MCM Reason for Outreach Care Gap/HCC or Scheduling Wellness Visits Care Gaps due: Medicare Annual Wellness Visit Controlling Blood Pressure Colorectal Cancer Screening Diabetic Eye Exam Patient Contacted: Unable or unnecessary to reach patient: Left message [employer]X message sent [facility] related Navigation Signature: Jania Mcnulty MA January 10, 2025 9:42 AM Allergies As of Date: 01/10/2025 Noted Allergy Reaction GEMFIBROZIL 09/25/2019 5 - Intolerance ROSUVASTATIN 09/25/2019 5 - Intolerance SIMVASTATIN 09/25/2019 5 - Intolerance IMDUR (ISOSORBIDE) 03/05/2022 5 - Intolerance Comments: Headaches, upset stomach, fatigue PENICILLINS 02/10/2007 5 - Intolerance Comments: passed out and felt like I had the flu Pt states he's no longer allergic to this, he's taken tests w/out issues. PRAVASTATIN 08/07/2021 17 - Myalgia Date Reviewed: 12/15/2024 Reviewed by: Lorenza Bravo MA - Fully Assessed Reason for Visit: Population Health Navigation Outreach [3910] Cmt: [employer] 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 Prescriptions as of 01/10/2025 - metoprolol succinate ER (TOPROL XL) 50 mg 24 hr tablet Take 1 tablet by mouth once daily. - semaglutide (OZEMPIC) 0.25 mg or 0.5 mg (2 mg/3 mL) pen Inject 0.5 mg subcutaneously one time a week. - glipiZIDE (GLUCOTROL XL) 5 mg 24 hr tablet Take 1 tablet by mouth once daily. - evolocumab (REPATHA SURECLICK) 140 mg/mL pen injector Inject 140 mg subcutaneously every 2 weeks. - famotidine (PEPCID) 20 mg tablet Take 1 tablet by mouth at bedtime as needed (Heartburn). - amLODIPine (NORVASC) 5 mg tablet Take 1 tablet by mouth once daily. - losartan (COZAAR) 100 mg tablet Take 1 tablet by mouth once daily. - lansoprazole (PREVACID) 30 mg capsule Take 1 capsule by mouth daily before breakfast. 1/2 hr before meal. - aspirin, enteric coated (ECOTRIN LOW STRENGTH) 81 mg EC tablet Take 1 tablet by mouth once daily. - guaiFENesin (MUCINEX) 600 mg 12 hr tablet Take 1 tablet by mouth twice daily as needed for cold/allergy symptoms. - loratadine (CLARITIN) 10 mg tablet Take 1 tablet by mouth once daily. - nitroglycerin sublingual (NITROQUICK) 0.4 mg SL tablet Dissolve 0.4 mg under the tongue every 5 minutes as needed. - ADVAIR DISKUS 500-50 mcg/dose dsdv INHALE 1 (ONE) puff EVERY 12 HOURS Problem List As Of Date 01/10/2025 Noted Resolved SUBCUTANEOUS NODULES [R22.9] 02/21/2007 Dark urine [R82.998] 10/05/2013 Abdominal pain, other specified site [R10.9] Elevated glucose [R73.09] 01/29/2020 Coronary artery disease of nome artery of kevin*01/29/2020 Mixed hyperlipidemia [E78.2] 01/29/2020 Essential hypertension [I10] 01/29/2020 S/P right coronary artery (RCA) stent placement*06/24/2021 Pure hypercholesterolemia [E78.00] 08/13/2021 Elevated PSA [R97.20] 03/11/2022 Stable angina (HCC) [I20.89] 06/10/2022 Dyspnea on exertion [R06.09] 06/10/2022 S/P CABG x 2 [Z95.1] 10/16/2022 Type 2 diabetes mellitus without complication, *12/11/2022 Prostate cancer (HCC) [C61] 07/30/2023 Postoperative atrial fibrillation (HCC) [I97.89*11/25/2023 Bilateral hip pain [M25.551, M25.552] 02/08/2024 History of colonic polyps [Z86.0100] 07/19/2024 Encounter Status:Closed by JANIA MCNULTY on 01/10/25[facility] 01-09-2025 NoteHNO ID: [id number] Author: JOHNY AN CPhT Service: ? Author Type: Punch Machine Hand Type: Progress Notes Filed: 01/09/2025 10:13 Note Text: Patient is identified through a medication adherence outreach initiative based on pharmacy claims data from: [email or web address] Medication Adherence Category: Diabetes First Review Attribution Status: Correct Attribution Medication(s) Ozempic 2 mg/3ml Medication Status per portal/Epic Reconcile Dispense: Filled late - Greater than 7 days after next fill date Date Filled (MM/DD): 01/03/25 due 12/23/24 Day Supply: 28 Medication Status per Profile Review: No issues per profile review Patient appropriate for outreach? No Reason patient not appropriate for outreach:Patient filled on time / no adherence concerns to be addressed Johny An CPhT [facility] History of Present illness Narrative* Johny An CPhT - 01/09/2025 10:08 AM EDT Patient is identified through a medication adherence outreach initiative based on pharmacy claims data from: [email or web address] Medication Adherence Category: Diabetes First Review Attribution Status: Correct Attribution Medication(s) Ozempic 2 mg/3ml Medication Status per portal/Epic Reconcile Dispense: Filled late - Greater than 7 days after next fill date Date Filled (MM/DD): 01/03/25 due 12/23/24 Day Supply: 28 Medication Status per Profile Review: No issues per profile review Patient appropriate for outreach? No Reason patient not appropriate for outreach:Patient filled on time / no adherence concerns to be addressed Johny An CPhT [facility] documented [facility] NotePatient Outreach (PHPOHE) DENTON WESLEY ([id number]) 1950 M Date Time Provider Department 01/09/25 CALI CORDERO PHPOHE During your visit today, we recorded the following information about you: Johny An CPhT 01/09/2025 10:13 AM Signed Patient is identified through a medication adherence outreach initiative based on pharmacy claims data from: [email or web address] Medication Adherence Category: Diabetes First Review Attribution Status: Correct Attribution Medication(s) Ozempic 2 mg/3ml Medication Status per portal/Epic Reconcile Dispense: Filled late - Greater than 7 days after next fill date Date Filled (MM/DD): 01/03/25 due 12/23/24 Day Supply: 28 Medication Status per Profile Review: No issues per profile review Patient appropriate for outreach? No Reason patient not appropriate for outreach:Patient filled on time / no adherence concerns to be addressed Johny An CPhT [facility] Allergies As of Date: 01/09/2025 Noted Allergy Reaction GEMFIBROZIL 09/25/2019 5 - Intolerance ROSUVASTATIN 09/25/2019 5 - Intolerance SIMVASTATIN 09/25/2019 5 - Intolerance IMDUR (ISOSORBIDE) 03/05/2022 5 - Intolerance Comments: Headaches, upset stomach, fatigue PENICILLINS 02/10/2007 5 - Intolerance Comments: passed out and felt like I had the flu Pt states he's no longer allergic to this, he's taken tests w/out issues. PRAVASTATIN 08/07/2021 17 - Myalgia Date Reviewed: 12/15/2024 Reviewed by: Lorenza Bravo MA - Fully Assessed Reason for Visit: Allied Health Visit [5] Cmt: Medication Adherence Outreach Prescriptions as of 01/09/2025 - metoprolol succinate ER (TOPROL XL) 50 mg 24 hr tablet Take 1 tablet by mouth once daily. - semaglutide (OZEMPIC) 0.25 mg or 0.5 mg (2 mg/3 mL) pen Inject 0.5 mg subcutaneously one time a week. - glipiZIDE (GLUCOTROL XL) 5 mg 24 hr tablet Take 1 tablet by mouth once daily. - evolocumab (REPATHA SURECLICK) 140 mg/mL pen injector Inject 140 mg subcutaneously every 2 weeks. - famotidine (PEPCID) 20 mg tablet Take 1 tablet by mouth at bedtime as needed (Heartburn). - amLODIPine (NORVASC) 5 mg tablet Take 1 tablet by mouth once daily. - losartan (COZAAR) 100 mg tablet Take 1 tablet by mouth once daily. - lansoprazole (PREVACID) 30 mg capsule Take 1 capsule by mouth daily before breakfast. 1/2 hr before meal. - aspirin, enteric coated (ECOTRIN LOW STRENGTH) 81 mg EC tablet Take 1 tablet by mouth once daily. - guaiFENesin (MUCINEX) 600 mg 12 hr tablet Take 1 tablet by mouth twice daily as needed for cold/allergy symptoms. - loratadine (CLARITIN) 10 mg tablet Take 1 tablet by mouth once daily. - nitroglycerin sublingual (NITROQUICK) 0.4 mg SL tablet Dissolve 0.4 mg under the tongue every 5 minutes as needed. - ADVAIR DISKUS 500-50 mcg/dose dsdv INHALE 1 (ONE) puff EVERY 12 HOURS Problem List As Of Date 01/09/2025 Noted Resolved SUBCUTANEOUS NODULES [R22.9] 02/21/2007 Dark urine [R82.998] 10/05/2013 Abdominal pain, other specified site [R10.9] Elevated glucose [R73.09] 01/29/2020 Coronary artery disease of nome artery of [place]vin*01/29/2020 Mixed hyperlipidemia [E78.2] 01/29/2020 Essential hypertension [I10] 01/29/2020 S/P right coronary artery (RCA) stent placement*06/24/2021 Pure hypercholesterolemia [E78.00] 08/13/2021 Elevated PSA [R97.20] 03/11/2022 Stable angina (HCC) [I20.89] 06/10/2022 Dyspnea on exertion [R06.09] 06/10/2022 S/P CABG x 2 [Z95.1] 10/16/2022 Type 2 diabetes mellitus without complication, *12/11/2022 Prostate cancer (HCC) [C61] 07/30/2023 Postoperative atrial fibrillation (HCC) [I97.89*11/25/2023 Bilateral hip pain [M25.551, M25.552] 02/08/2024 History of colonic polyps [Z86.0100] 07/19/2024 Encounter Status:Closed by JOHNY AN on 01/09/25[facility] 12[facility] Instructions* Patient Instructions* Jere Rust APRN.CNP - 12/15/2024 2:46 PM EDT It was great to see you today, as we discussed: 1. Your blood pressure remains elevated in the office as well as at home. Given this I recommend wetry metoprolol succinate 25 mg daily. This will also help with the palpitations 2. If palpitations continue despite metoprolol please let me know and we can consider changing the dose as well as placing an event monitor to further assess 3. Try cutting back on the caffeine to see if this helps with the palpitations. Make sure you are staying well hydrated with 64 ounces of water a day. 4. I will reach out in 1-2 weeks via MyChart to see how things are going with the metoprolol 5. I recommend an upper arm blood pressure cuff as they are more accurate. Omron is usually a good brand. 6. Follow up with me in 6 months or sooner if need arises documented in this encounter[facility] Center03-14-[facility]25 History of Present illness Narrative* Jere Rust APRN.TECHNICAL SUPPORT CONSULTANT - 12/15/2024 2:30 PM EDT Images from the original note were not included. [facility] [place] Vickie Soto Department of Cardiovascular Medicine SECTION OF CLINICAL CARDIOLOGY OUTPATIENT VISIT DATE December 15, 2024 OUTPATIENT VISIT TYPE ESTABLISHED PRIMARY CARE PHYSICIAN: Cali Cordero [address] [place] [address] CHIEF COMPLAINT: Review testing HISTORY OF PRESENT ILLNESS: Mr. Wesley is a 74 year old male with history of CAD, S/P PCI (2015), S/P CABG x2 (10/16/22), paroxysmal atrial fibrillation, HTN, HLD, AAA, and T2DM who presents today for a cardiovascular medicine follow-up visit. He was last seen in the office on 09-04-24 at which time he noted a dull aching/burning chest discomfort radiating to his neck usually occurring with rest although a few times occurring with exertion which alleviated after 30 minutes. He felt this was similar to prior angina. His blood pressure was noted to be uncontrolled in the office for which she was started on amlodipine 5 mg daily. Echocardiogram and nuclear stress test were recommended for further evaluation. Plan was to follow-up after testing to review results. Echocardiogram showed EF 64%, grade I LVDD, normal RV size with low normal RV systolic function, dilated RA, and no significant valvular disease similar to prior. Exercise nuclear stress test was negative for ischemia at 91% MPHR with 6.1 METS achieved. He had no significant arrhythmias or EKG changes during testing. Since his last office visit his prior chest discomfort has resolved. He was started on Pepcid by his PCP which he feels may have helped. He additionally has been started on Ozempic which he feels is taking him some time to adjust to. He had constipation at first with this which has since resolved. He additionally has been having some lightheaded episodes since starting Ozempic but denies any presyncope or syncope. He notes worsening palpitations over the last few weeks occurring nearly daily. These last for a few seconds up to 15 minutes before self resolving. He describes them as a skipped beat followed by a rapid heartbeat. No associated symptoms with this. The lightheadedness does not coi ncide with the palpitations. He unfortunately was unable to tolerate the amlodipine as it made him feel like he had the flu, thus he discontinued it. He checked his blood pressure with a wrist cuffthis morning and it was 170/104. He drinks a few cups of coffee every day. He has cut out soda to try and help with his diabetes. He was previously drinking multiple cans of Coca-Cola a day. He is not participating in any daily aerobic exercise. He denies any shortness of breath, lower extreme edema, orthopnea, or PND. Subjective PAST MEDICAL HISTORY Diagnosis Date Abdominal aortic aneurysm (AAA) (HCC) Abdominal pain, other specified site Asthma Awareness under anesthesia CAD (coronary artery disease) Cholelithiasis 09/25/2013 Colitis Diabetes mellitus (HCC) type 2 diet controlled Elevated prostate specific antigen (PSA) Esophageal reflux Gastroesophageal reflux Hypertension Impotence of organic origin Impotence Nocturia SUJEY (obstructive sleep apnea) Post-void dribbling Prostate cancer (HCC) RUQ abdominal pain 09/25/2013 PAST SURGICAL HISTORY Procedure Laterality Date CABG (2) VEIN GRAFTS & ARTERIAL GRAFT(S 10/16/2022 COLONOSCOPY FLX DX W/COLLJ SPEC WHEN PFRMD Colonoscopy Dr. Ferreira ESOPHAGOGASTRODUODENOSCOPY TRANSORAL DIAGNOSTIC EGD Dr. Ferreira LAPAROSCOPY SURG CHOLECYSTECTOMY 09/25/2013 PAST SURGICAL HISTORY OF I&D left hand PAST SURGICAL HISTORY OF Removal cyst on back PROSTATE BIOPSY GUKI 07/14/2022 STENT PLACEMENT 4 Stents Social History Tobacco Use Smoking status: Every Day Current packs/day: 0.25 Average packs/day: 0.3 packs/day for 1.3 years (0.3 ttl pk-yrs) Types: Cigarettes Start date: 08/25/2023 Smokeless tobacco: Never Tobacco comments: Resumed last week after the of his spouse Vaping Use Vaping status: Never Used Substance Use Topics Alcohol use: Yes Comment: 1 beer in the evening occasionally Drug use: No FAMILY HISTORY Problem Relation Age of Onset Colon Cancer Mother Heart Mother Ovarian cancer Mother Prostate Cancer Brother Stroke Brother Emphysema Father ALLERGIES: ALLERGIES Allergen Reactions Gemfibrozil Intolerance Rosuvastatin Intolerance Simvastatin Intolerance Imdur [Isosorbide] Intolerance Headaches, upset stomach, fatigue Penicillins Intolerance passed out and felt like I had the flu Pt states he's no longer allergic to this, he's taken tests w/out issues. Pravastatin Myalgia MEDICATIONS: semaglutide (OZEMPIC) 0.25 mg or 0.5 mg (2 mg/3 mL) pen Inject 0.5 mg subcutaneously one time a week. glipiZIDE (GLUCOTROL XL) 5 mg 24 hr tablet Take 1 tablet by mouth once daily. evolocumab (REPATHA SURECLICK) 140 mg/mL pen injector Inject 140 mg subcutaneously every 2 weeks. famotidine (PEPCID) 20 mg tablet Take 1 tablet by mouth at bedtime as needed (Heartburn). losartan (COZAAR) 100 mg tablet Take 1 tablet by mouth once daily. lansoprazole (PREVACID) 30 mg capsule Take 1 capsule by mouth daily before breakfast. 1/2 hr beforemeal. aspirin, enteric coated (ECOTRIN LOW STRENGTH) 81 mg EC tablet Take 1 tablet by mouth once daily. guaiFENesin (MUCINEX) 600 mg 12 hr tablet Take 1 tablet by mouth twice daily as needed for cold/allergy symptoms. loratadine (CLARITIN) 10 mg tablet Take 1 tablet by mouth once daily. nitroglycerin sublingual (NITROQUICK) 0.4 mg SL tablet Dissolve 0.4 mg under the tongue every 5 minutes as needed. ADVAIR DISKUS 500-50 mcg/dose dsdv INHALE 1 (ONE) puff EVERY 12 HOURS metoprolol succinate ER (TOPROL XL) 25 mg 24 hr tablet Take 1 tablet by mouth once daily. amLODIPine (NORVASC) 5 mg tablet Take 1 tablet by mouth once daily. REVIEW OF SYSTEMS: CARD: See HPI GENERAL: Negative for: Weight loss or gain, Fever and/or Chills HEENT: Negative for: Headache, Impaired Vision, Glasses, Hearing Impairment, Ringing in Ears, Nosebleeds, Bleeding Gums NECK: Negative for: Swelling, Pain, Stiffness RESPIRATORY: Negative for: Cough, Blood in Sputum, Shortness of breath, Wheezing, Apnea GASTROINTESTINAL: Negative for: Nausea, Vomiting, Diarrhea, Blood in stool, or Dark black stools MUSCULOSKELETAL: +Arthralgias NEUROLOGIC: Negative for: focal numbness/weakness, headaches, visual changes, ataxia, speech/language loss +Intermittent lightheadedness SKIN: Negative for: Rashes, Itching HEMATOLOGICAL/LYMPHATIC: +Easy bruising ENDOCRINE: Negative for: Heat or cold intolerance, Excessive sweating, Frequent urination, Frequentthirst Objective PHYSICAL EXAMINATION: BP 142/78 Pulse 86 Ht 182.9 cm (6') Wt 104.8 kg (231 lb 0.7 oz) SpO2 98% BMI 31.33 kg/m General: Well appearing, in no acute distress. Skin: No clubbing, no cyanosis. Eyes: Extra ocular movements intact Oropharynx: Teeth in good repair. Neck: No jugular venous distention, no carotid bruits, carotids have a normal upstroke. Lungs: Clear to auscultation bilaterally, no wheezing or rhonchi. Heart: Regular rhythm, S1, S2 normal, no S3, no S4, no heaves, no rub and no murmur. No peripheral edema . Grade 2/4 distal pulses bilaterally. Abdomen: Soft, nontender, bowel sounds normal, no bruits. Neuro: Oriented to person, place and time, alert, cooperative, gait coordinated. CARDIOVASCULAR MEDICINE TESTING: Last ECHO Result Conclusion ECHO Collected: 09/19/2024 10:15 AM (Final result) Impression: CONCLUSIONS: - Technically difficult exam due to body habitus. - Exam indication: Chest Pain - The left ventricle is normal in size. Left ventricular systolic function is normal. EF = 64 5% (2D biplane) Grade I left ventricular diastolic dysfunction. - The right ventricle is normal in size. Right ventricular systolic function is low normal. - The right atrial cavity is dilated. - Estimated right ventricular systolic pressure is likely underestimated due to a weak or incomplete tricuspid regurgitation signal and is, at least, 23 mmHg consistent with normal pulmonary artery pressures. Estimated right atrial pressure is 3 mmHg based on IVC assessment. - There are no significant valvular abnormalities. - Exam was compared with the prior echocardiographic exam performed on 06/18/2022. There is no significant change. * * * Final * * * Last EKG Result Conclusion ECG COMPLETE Collected: 09/04/2024 8:45 AM (Final result) Impression: NORMAL SINUS RHYTHM POOR R WAVE PROGRESSION Confirmed by MD DIONNA, QAPHONG ([id number]) on 09/06/2024 11:40:55 AM I have personally reviewed the Echocardiogram and Stress Test: Nuclear (Non-PET). PLAN AND RECOMMENDATIONS: Coronary artery disease Chest pain - S/P PCI with IRENE to PLB of the RCA and PTCA to prox-PDA in 2016 - S/P CABG x2 (ACEVEDO-LAD & SVG-Circ) with Dr. Colmenares at [facility] on 10/16/2022 - Nuclear stress test 09/2024 with no inducible ischemia or scar at 91% MPHR with 6.1 METS achieved - Chest pain previously - Patient appears compensated from cardiac standpoint - Continue ASA, BB, and Statin as currently ordered - Unable to tolerate BB secondary to bradycardia Paroxysmal atrial fibrillation - Multiple episodes post op CABG - Continued daily episodes of palpitations (No correlation on Zio as below) - Zio event monitor 01/2023: Avg HR 78 min HR 54, no AF, rare ectopy, symptoms correlating with NSR - [id number] Score of 4 (Age, HTN, DM, & Vasc) - Anticoagulated with Eliquis 5 mg BID - Initially placed on Amiodarone and Metoprolol tartrate >>Significant bradycardia in the 30's and amiodarone and BB discontinued - Metoprolol succinate 25 mg daily Essential hypertension - Optimal control on losartan - Unable to tolerate spironolactone, Imdur, HCTZ, amlodipine, or BB in the past - Encouraged dietary sodium restriction/DASH diet - Reviewed risks of HTN and principles of treatment - Goal of BP <130/80 - Metoprolol succinate 25 mg daily Pure hypercholesterolemia - Currently on Repatha - Documented intolerance to statins due to severe myalgias - Last lipid panel 06/2024 with LDL 67 - Normal LFTs 06/2024 Type 2 diabetes mellitus - Most recent A1c 8.0 AAA - abd US 07/2024: 3.0 cm x 3.4 cm. The sagittal dimension of the AAA measures 6.5 cm - Follows with primary Tobacco use - Current 1/2 PPD smoker and some days less - Cessation advised CONCLUSION: Patient presents today for follow-up with complaints of palpitations which have started over the last few weeks. This is in the setting of recently starting Ozempic. He is regular on exam today. We discussed placing an event monitor today for further assessment however he defers at this time. His blood pressure remains uncontrolled both at home and in the office. He has multiple medication intolerances which make treatment difficult. He was unable to tolerate the amlodipine started at last office visit secondary to feeling like he had the flu. At this time given his palpitations and uncontrolled blood pressure would recommend trialing a low-dose of metoprolol succinate. He had significant bradycardia on metoprolol in the past however this was in the setting of amiodarone use as well. His heart rate has been reasonable both in the office and on event monitor in 2022. He will let us know if he has any bradycardia or new symptoms with this. Should his symptoms persist would again consider placing event monitor. He was advised to cut back on caffeine. He continues to use tobacco for which cessation was advised. His most recent cholesterol profile remains under favorable control. He should continue to actively engage in cardiovascular risk factor modification and follow up in 6months, or sooner should need arise. CONTACT INFORMATION: Jere Rust APRN.CNP Cardiology Nurse Practitioner Section of Regional Cardiology [facility] Dept of Cardiovascular Medicine [facility] [place] [address] [place] [address] Office Office This note was partially generated using [employer] voice recognition system and may contain errors related to that system including grammar, punctuation, spelling, and words that may be inappropriate documented in this encounterUc Medical Center03-14-2025 NoteHNO ID: [id number] Author: JERE RUST APRN.CNP Service: ? Author Type: Nurse Practitioner Type: Progress Notes Filed: 12/15/2024 15:02 Note Text: [facility] [place] Vickie [facility] Department of Cardiovascular Medicine SECTION OF CLINICAL CARDIOLOGY OUTPATIENT VISIT DATE December 15, 2024 OUTPATIENT VISIT TYPE ESTABLISHED PRIMARY CARE PHYSICIAN: Cali Cordero [address] [place] [address] CHIEF COMPLAINT: Review testing HISTORY OF PRESENT ILLNESS: Mr. Wesley is a 74 year old male with history of CAD, S/P PCI (2015), S/P CABG x2 (10/16/22), paroxysmal atrial fibrillation, HTN, HLD, AAA, and T2DM who presents today for a cardiovascular medicine follow-up visit. He was last seen in the office on 09-04-24 at which time he noted a dull aching/burning chest discomfort radiating to his neck usually occurring with rest although a few times occurring with exertion which alleviated after 30 minutes. He felt this was similar to prior angina. His blood pressure was noted to be uncontrolled in the office for which she was started on amlodipine 5 mg daily. Echocardiogram and nuclear stress test were recommended for further evaluation. Plan was to follow-up after testing to review results. Echocardiogram showed EF 64%, grade I LVDD, normal RV size with low normal RV systolic function, dilated RA, and no significant valvular disease similar to prior. Exercise nuclear stress test was negative for ischemia at 91% MPHR with 6.1 METS achieved. He had no significant arrhythmias or EKG changes during testing. Since his last office visit his prior chest discomfort has resolved. He was started on Pepcid by his PCP which he feels may have helped. He additionally has been started on Ozempic which he feels is taking him some time to adjust to. He had constipation at first with this which has since resolved. He additionally has been having some lightheaded episodes since starting Ozempic but denies any presyncope or syncope. He notes worsening palpitations over the last few weeks occurring nearly daily. These last for a few seconds up to 15 minutes before self resolving. He describes them as a skipped beat followed by a rapid heartbeat. No associated symptoms with this. The lightheadedness does not coincide with the palpitations. He unfortunately was unable to tolerate the amlodipine as it made him feel like he had the flu, thus he discontinued it. He checked his blood pressure with a wrist cuff this morning and it was 170/104. He drinks a few cups of coffee every day. He has cut out soda to try and help with his diabetes. He was previously drinking multiple cans of Coca-Cola a day. He is not participating in any daily aerobic exercise. He denies any shortness of breath, lower extreme edema, orthopnea, or PND. Subjective PAST MEDICAL HISTORY Diagnosis Date Abdominal aortic aneurysm (AAA) (HCC) Abdominal pain, other specified site Asthma Awareness under anesthesia CAD (coronary artery disease) Cholelithiasis 09/25/2013 Colitis Diabetes mellitus (HCC) type 2 diet controlled Elevated prostate specific antigen (PSA) Esophageal reflux Gastroesophageal reflux Hypertension Impotence of organic origin Impotence Nocturia SUJEY (obstructive sleep apnea) Post-void dribbling Prostate cancer (HCC) RUQ abdominal pain 09/25/2013 PAST SURGICAL HISTORY Procedure Laterality Date CABG (2) VEIN GRAFTS AND ARTERIAL GRAFT(S 10/16/2022 COLONOSCOPY FLX DX W/COLLJ SPEC WHEN PFRMD Colonoscopy Dr. Ferreira ESOPHAGOGASTRODUODENOSCOPY TRANSORAL DIAGNOSTIC EGD Dr. Ferreira LAPAROSCOPY SURG CHOLECYSTECTOMY 09/25/2013 PAST SURGICAL HISTORY OF IANDD left hand PAST SURGICAL HISTORY OF Removal cyst on back PROSTATE BIOPSY GUKI 07/14/2022 STENT PLACEMENT 4 Stents Social History Tobacco Use Smoking status: Every Day Current packs/day: 0.25 Average packs/day: 0.3 packs/day for 1.3 years (0.3 ttl pk-yrs) Types: Cigarettes Start date: 08/25/2023 Smokeless tobacco: Never Tobacco comments: Resumed last week after the of his spouse Vaping Use Vaping status: Never Used Substance Use Topics Alcohol use: Yes Comment: 1 beer in the evening occasionally Drug use: No FAMILY HISTORY Problem Relation Age of Onset Colon Cancer Mother Heart Mother Ovarian cancer Mother Prostate Cancer Brother Stroke Brother Emphysema Father ALLERGIES: ALLERGIES Allergen Reactions Gemfibrozil Intolerance Rosuvastatin Intolerance Simvastatin Intolerance Imdur [Isosorbide] Intolerance Headaches, upset stomach, fatigue Penicillins Intolerance passed out and felt like I had the flu Pt states he's no longer allergic to this, he's taken tests w/out issues. Pravastatin Myalgia MEDICATIONS: semaglutide (OZEMPIC) 0.25 mg or 0.5 mg (2 mg/3 mL) pen Inject 0.5 mg subcutaneously one t (more content not included)...[facility] 11-30-2024 NoteHNO ID: [id number] Author: ?, ?, ? Service: ? Author Type: ? Type: Progress Notes Filed: 11/30/2024 09:19 Note Text: Denton Wesley is identified through a medication adherence outreach initiative based on pharmacy claims data from [email or web address] (insurer) for [facility] medication(s). Patient is reviewed 11/30/24 due to medication adherence concerns with the following medications (name, strength, sig): Losartan 100 mg 1 tablet every day . Per data/report, last fill date and days supply: Due 08/19/2024 Per reconcile dispense, last fill date and days supply: No data Per call to pharmacy, last picked up date and days supply: NA Contacted patient: No answer; left generic VM Outcome of review/outreach: (choose outcome source and status) - LVM for patient - MyChart message [facility] to [facility] History of Present illness Narrative* Carine Link - 11/30/2024 9:16 AM EST Denton S Lupillo is identified through a medication adherence outreach initiative based on pharmacy claims data from [email or web address] (insurer) for [facility] medication(s). Patient is reviewed 11/30/24 due to medication adherence concerns with the following medications (name, strength, sig): Losartan 100 mg 1 tablet every day . Per data/report, last fill date and days supply: Due 08/19/2024 Per reconcile dispense, last fill date and days supply: No data Per call to pharmacy, last picked up date and days supply: NA Contacted patient: No answer; left generic VM Outcome of review/outreach: (choose outcome source and status) - LVM for patient - Splithart message sent to patient Carine Butler Nikolay documented in this encounter[facility]25 NotePatient Outreach (PHPOHE) DENTON WESLEY ([id number]) 1950 M Date Time Provider Department 11/30/24 CALI CORDERO PHPOHE During your visit today, we recorded the following information about you: Carine Link 11/30/2024 9:19 AM Signed Denton Wesley is identified through a medication adherence outreach initiative based on pharmacy claims data from [email or web address] (insurer) for [facility] medication(s). Patient is reviewed 11/30/24 due to medication adherence concerns with the following medications (name, strength, sig): Losartan 100 mg 1 tablet every day . Per data/report, last fill date and days supply: Due 08/19/2024 Per reconcile dispense, last fill date and days supply: No data Per call to pharmacy, last picked up date and days supply: NA Contacted patient: No answer; left generic VM Outcome of review/outreach: (choose outcome source and status) - LVM for patient - ADmantX message sent to patient Carine Link Allergies As of Date: 11/30/2024 Noted Allergy Reaction GEMFIBROZIL 09/25/2019 5 - Intolerance ROSUVASTATIN 09/25/2019 5 - Intolerance SIMVASTATIN 09/25/2019 5 - Intolerance IMDUR (ISOSORBIDE) 03/05/2022 5 - Intolerance Comments: Headaches, upset stomach, fatigue PENICILLINS 02/10/2007 5 - Intolerance Comments: passed out and felt like I had the flu Pt states he's no longer allergic to this, he's taken tests w/out issues. PRAVASTATIN 08/07/2021 17 - Myalgia Date Reviewed: 11/27/2024 Reviewed by: Jania Pozo MD - Fully Assessed Reason for Visit: Allied Health Visit [5] Cmt: Medication Adherence Outreach Prescriptions as of 11/30/2024 - semaglutide (OZEMPIC) 0.25 mg or 0.5 mg (2 mg/3 mL) pen Inject 0.5 mg subcutaneously one time a week. - glipiZIDE (GLUCOTROL XL) 5 mg 24 hr tablet Take 1 tablet by mouth once daily. - evolocumab (REPATHA SURECLICK) 140 mg/mL pen injector Inject 140 mg subcutaneously every 2 weeks. - famotidine (PEPCID) 20 mg tablet Take 1 tablet by mouth at bedtime as needed (Heartburn). - amLODIPine (NORVASC) 5 mg tablet Take 1 tablet by mouth once daily. - losartan (COZAAR) 100 mg tablet Take 1 tablet by mouth once daily. - lansoprazole (PREVACID) 30 mg capsule Take 1 capsule by mouth daily before breakfast. 1/2 hr before meal. - aspirin, enteric coated (ECOTRIN LOW STRENGTH) 81 mg EC tablet Take 1 tablet by mouth once daily. - guaiFENesin (MUCINEX) 600 mg 12 hr tablet Take 1 tablet by mouth twice daily as needed for cold/allergy symptoms. - loratadine (CLARITIN) 10 mg tablet Take 1 tablet by mouth once daily. - nitroglycerin sublingual (NITROQUICK) 0.4 mg SL tablet Dissolve 0.4 mg under the tongue every 5 minutes as needed. - ADVAIR DISKUS 500-50 mcg/dose dsdv INHALE 1 (ONE) puff EVERY 12 HOURS Problem List As Of Date 11/30/2024 Noted Resolved SUBCUTANEOUS NODULES [R22.9] 02/21/2007 Dark urine [R82.998] 10/05/2013 Abdominal pain, other specified site [R10.9] Elevated glucose [R73.09] 01/29/2020 Coronary artery disease of nome artery of kevin*01/29/2020 Mixed hyperlipidemia [E78.2] 01/29/2020 Essential hypertension [I10] 01/29/2020 S/P right coronary artery (RCA) stent placement*06/24/2021 Pure hypercholesterolemia [E78.00] 08/13/2021 Elevated PSA [R97.20] 03/11/2022 Stable angina (HCC) [I20.89] 06/10/2022 Dyspnea on exertion [R06.09] 06/10/2022 S/P CABG x 2 [Z95.1] 10/16/2022 Type 2 diabetes mellitus without complication, *12/11/2022 Prostate cancer (HCC) [C61] 07/30/2023 Postoperative atrial fibrillation (HCC) [I97.89*11/25/2023 Bilateral hip pain [M25.551, M25.552] 02/08/2024 History of colonic polyps [Z86.0100] 07/19/2024 Encounter Status:Closed by CARINE LINK on 11/30/24[facility] History of Present illness Narrative* Jania Pozo MD - 11/27/2024 10:45 AM EST Images from the original note were not included. [facility] ESTABLISHED PATIENT FOLLOW-UP NOTE PATIENT: Denton Wesley (74 year old) PCP: Cali Cordero MD SUMMARY: Former patient of Dr. Tlobert. #Prostate cancer. cT1c, GG3 (2/, 55-60%) and GG2 (3/, 40-45%), all on left, dx's in 07/2022 forPSA=4.62; 78.8 cc, PSAD=0.06. NCCN unfavorable intermediate risk. Decipher=0.92 (high risk). Initial CT pelvis in 07/2022 and BS in 12/2022 were negative for mets. Tx was delayed due CAD s/p CABG x2 on 10/16/22, complicated by postop retention. PSMA PET-06/2023 negative for mets. Tx'd with IMRT +ADT. PSA=7.4(06/2023)... 0.04 (01/2024). Assessment & Plan History of prostate cancer Chronic, unstable. Patient has been lost to follow up since 07/2023 when he received his Lupron injection. He has since completed IMRT. His initial PSA after completing treatment showed an appropriate response. Recent PSA=0.07, which is low and stable. NEREIDA. Reassurance provided. I discussed the risk of cancer recurrence and need for long-term surveillance. Orders: PROSTATE-SPECIFIC ANTIGEN DIAGNOSTIC; Future Visit complexity inherent to evaluation and management associated with medical care services that serve as the continuing focal point for all needed health care services and/or with medical care services that are part of ongoing care related to a patient s single, serious condition or a complex condition. 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 CHIEF COMPLAINT: Patient presents with: History of prostate cancer HISTORY OF PRESENT ILLNESS: Prior notes were reviewed. The patient reports doing well. Good urine stream. He complains of urinary frequency. He does have diabetes. MANPREET/AUASS FORMS No question data found. REVIEW OF SYSTEMS: Noncontributory ALLERGIES: ALLERGIES Allergen Reactions Gemfibrozil Intolerance Rosuvastatin Intolerance Simvastatin Intolerance Imdur [Isosorbide] Intolerance Headaches, upset stomach, fatigue Penicillins Intolerance passed out and felt like I had the flu Pt states he's no longer allergic to this, he's taken tests w/out issues. Pravastatin Myalgia MEDICATIONS: semaglutide (OZEMPIC) 0.25 mg or 0.5 mg (2 mg/3 mL) pen Inject 0.5 mg subcutaneously one time a week. glipiZIDE (GLUCOTROL XL) 5 mg 24 hr tablet Take 1 tablet by mouth once daily. evolocumab (REPATHA SURECLICK) 140 mg/mL pen injector Inject 140 mg subcutaneously every 2 weeks. famotidine (PEPCID) 20 mg tablet Take 1 tablet by mouth at bedtime as needed (Heartburn). losartan (COZAAR) 100 mg tablet Take 1 tablet by mouth once daily. lansoprazole (PREVACID) 30 mg capsule Take 1 capsule by mouth daily before breakfast. 1/2 hr beforemeal. aspirin, enteric coated (ECOTRIN LOW STRENGTH) 81 mg EC tablet Take 1 tablet by mouth once daily. guaiFENesin (MUCINEX) 600 mg 12 hr tablet Take 1 tablet by mouth twice daily as needed for cold/allergy symptoms. loratadine (CLARITIN) 10 mg tablet Take 1 tablet by mouth once daily. nitroglycerin sublingual (NITROQUICK) 0.4 mg SL tablet Dissolve 0.4 mg under the tongue every 5 minutes as needed. ADVAIR DISKUS 500-50 mcg/dose dsdv INHALE 1 (ONE) puff EVERY 12 HOURS amLODIPine (NORVASC) 5 mg tablet Take 1 tablet by mouth once daily. PAST HISTORY: PAST MEDICAL HISTORY Diagnosis Date Abdominal aortic aneurysm (AAA) (HCC) Abdominal pain, other specified site Asthma Awareness under anesthesia CAD (coronary artery disease) Cholelithiasis 09/25/2013 Colitis Diabetes mellitus (HCC) type 2 diet controlled Elevated prostate specific antigen (PSA) Esophageal reflux Gastroesophageal reflux Hypertension Impotence of organic origin Impotence Nocturia SUJEY (obstructive sleep apnea) Post-void dribbling Prostate cancer (HCC) RUQ abdominal pain 09/25/2013 PAST SURGICAL HISTORY Procedure Laterality Date CABG (2) VEIN GRAFTS & ARTERIAL GRAFT(S 10/16/2022 COLONOSCOPY FLX DX W/COLLJ SPEC WHEN PFRMD Colonoscopy Dr. Ferreira ESOPHAGOGASTRODUODENOSCOPY TRANSORAL DIAGNOSTIC EGD Dr. Ferreira LAPAROSCOPY SURG CHOLECYSTECTOMY 09/25/2013 PAST SURGICAL HISTORY OF I&D left hand PAST SURGICAL HISTORY OF Removal cyst on back PROSTATE BIOPSY GUKI 07/14/2022 STENT PLACEMENT 4 Stents FAMILY HISTORY Problem Relation Age of Onset Colon Cancer Mother Heart Mother Ovarian cancer Mother Prostate Cancer Brother Stroke Brother Emphysema Father Social History Tobacco Use Smoking status: Every Day Current packs/day: 0.25 Average packs/day: 0.3 packs/day for 1.3 years (0.3 ttl pk-yrs) Types: Cigarettes Start date: 08/25/2023 Smokeless tobacco: Never Tobacco comments: Resumed last week after the of his spouse Vaping Use Vaping status: Never Used Substance Use Topics Alcohol use: Yes Comment: 1 beer in the evening occasionally Drug use: No PHYSICAL EXAMINATION: BP 149/93 Ht 180.3 cm (5' 11) Wt 104.3 kg (230 lb) BMI 32.08 kg/m Constitutional: In no acute distress. Well appearing. DATA: Clinic: URINALYSIS: N/a Laboratory: Creatinine Date Value Ref Range Status 11/17/2024 0.67 (L) 0.73 - 1.22 mg/dL Final 09/06/2024 0.75 0.73 - 1.22 mg/dL Final 06/07/2024 0.74 0.73 - 1.22 mg/dL Final 02/14/2024 0.80 0.73 - 1.22 mg/dL Final PSA: PSA (ng/mL) Date Value 11/24/2024 0.07 01/28/2024 0.04 06/14/2023 7.40 03/12/2022 4.62 Cultures: No data to display Susceptibility Tests - Past 1 Year No results found for the last 365 days. MEDICAL DECISION MAKING PROBLEM(S): 1 or more, chronic unstable problem(s) with mild exacerbation, progression, or side effects of treatment (moderate) DATA: Category 1 Review of test result(s): Ordering of test(s): PSA Review of prior external note: Independent historian: Category 2 Independent interpretation of test: Category 3 Discussion of management or test interpretation: RISK: ORDERS THIS VISIT: Orders Placed This Encounter PSA - 6 mo* Standing Status: Future Expected Date: 05/27/2025 Expiration Date: 08/26/2025 I have reviewed the problem list, family history, and social history documented by my ancillary staff. Jania Pozo MD Staff Urologist documented in this encounterUc Medical Center02-24-2025 NoteHNO ID: [id number] Author: JANIA POZO MD Service: ? Author Type: Physician Type: Progress Notes Filed: 11/27/2024 11:25 Note Text: [facility] ESTABLISHED PATIENT FOLLOW-UP NOTE PATIENT: Denton Wesley (74 year old) PCP: Cali Cordero MD SUMMARY: Former patient of Dr. Tolbert. #Prostate cancer. cT1c, GG3 (2, 55-60%) and GG2 (3, 40-45%), all on left, dx's in 07/2022 for PSA=4.62; 78.8 cc, PSAD=0.06. NCCN unfavorable intermediate risk. Decipher=0.92 (high risk). Initial CT pelvis in 07/2022 and BS in 12/2022 were negative for mets. Tx was delayed due CAD s/p CABG x2 on 10/16/22, complicated by postop retention. PSMA PET-06/2023 negative for mets. Tx'd with IMRT +ADT. PSA=7.4(06/2023)... 0.04 (01/2024). Assessment AND Plan History of prostate cancer Chronic, unstable. Patient has been lost to follow up since 07/2023 when he received his Lupron injection. He has since completed IMRT. His initial PSA after completing treatment showed an appropriate response. Recent PSA=0.07, which is low and stable. NEREIDA. Reassurance provided. I discussed the risk of cancer recurrence and need for long-term surveillance. Orders: PROSTATE-SPECIFIC ANTIGEN DIAGNOSTIC; Future Visit complexity inherent to evaluation and management associated with medical care services that serve as the continuing focal point for all needed health care services and/or with medical care services that are part of ongoing care related to a patient?s single, serious condition or a complex condition. 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 CHIEF COMPLAINT: Patient presents with: History of prostate cancer HISTORY OF PRESENT ILLNESS: Prior notes were reviewed. The patient reports doing well. Good urine stream. He complains of urinary frequency. He does have diabetes. MANPREET/AUASS FORMS No question data found. REVIEW OF SYSTEMS: Noncontributory ALLERGIES: ALLERGIES Allergen Reactions Gemfibrozil Intolerance Rosuvastatin Intolerance Simvastatin Intolerance Imdur [Isosorbide] Intolerance Headaches, upset stomach, fatigue Penicillins Intolerance passed out and felt like I had the flu Pt states he's no longer allergic to this, he's taken tests w/out issues. Pravastatin Myalgia MEDICATIONS: semaglutide (OZEMPIC) 0.25 mg or 0.5 mg (2 mg/3 mL) pen Inject 0.5 mg subcutaneously one time a week. glipiZIDE (GLUCOTROL XL) 5 mg 24 hr tablet Take 1 tablet by mouth once daily. evolocumab (REPATHA SURECLICK) 140 mg/mL pen injector Inject 140 mg subcutaneously every 2 weeks. famotidine (PEPCID) 20 mg tablet Take 1 tablet by mouth at bedtime as needed (Heartburn). losartan (COZAAR) 100 mg tablet Take 1 tablet by mouth once daily. lansoprazole (PREVACID) 30 mg capsule Take 1 capsule by mouth daily before breakfast. 1/2 hr before meal. aspirin, enteric coated (ECOTRIN LOW STRENGTH) 81 mg EC tablet Take 1 tablet by mouth once daily. guaiFENesin (MUCINEX) 600 mg 12 hr tablet Take 1 tablet by mouth twice daily as needed for cold/allergy symptoms. loratadine (CLARITIN) 10 mg tablet Take 1 tablet by mouth once daily. nitroglycerin sublingual (NITROQUICK) 0.4 mg SL tablet Dissolve 0.4 mg under the tongue every 5 minutes as needed. ADVAIR DISKUS 500-50 mcg/dose dsdv INHALE 1 (ONE) puff EVERY 12 HOURS amLODIPine (NORVASC) 5 mg tablet Take 1 tablet by mouth once daily. PAST HISTORY: PAST MEDICAL HISTORY Diagnosis Date Abdominal aortic aneurysm (AAA) (HCC) Abdominal pain, other specified site Asthma Awareness under anesthesia CAD (coronary artery disease) Cholelithiasis 09/25/2013 Colitis Diabetes mellitus (HCC) type 2 diet controlled Elevated prostate specific antigen (PSA) Esophageal reflux Gastroesophageal reflux Hypertension Impotence of organic origin Impotence Nocturia SUJEY (obstructive sleep apnea) Post-void dribbling Prostate cancer (HCC) RUQ abdominal pain 09/25/2013 PAST SURGICAL HISTORY Procedure Laterality Date CABG (2) VEIN GRAFTS AND ARTERIAL GRAFT(S 10/16/2022 COLONOSCOPY FLX DX W/COLLJ SPEC WHEN PFRMD Colonoscopy Dr. Ferreira ESOPHAGOGASTRODUODENOSCOPY TRANSORAL DIAGNOSTIC EGD Dr. Ferreira LAPAROSCOPY SURG CHOLECYSTECTOMY 09/25/2013 PAST SURGICAL HISTORY OF IANDD left hand PAST SURGICAL HISTORY OF Removal cyst on back PROSTATE BIOPSY GUKI 07/14/2022 STENT PLACEMENT 4 Stents FAMILY HISTORY Problem Relation Age of Onset Colon Cancer Mother Heart Mother Ovarian cancer Mother Prostate Cancer Brother Stroke Brother Emphysema Father Social History Tobacco Use Smoking status: (more content not included)...[facility]02-17-2025 Telephone encounter Note* Telephone Encounter - Manuela Marley OCCA - 11/20/2024 1:21 PM EST Pt notified. DEBBIE Wolfe [facility]02-[facility] Miscellaneous Notes* Telephone Encounter - Manuela Marley OCCA - 11/20/2024 1:21 PM EST Pt notified. DEBBIE Wolfe * Telephone Encounter - Jania Pozo MD - 11/20/2024 10:51 AM EST Please have the patient get another PSA. They did not have enough blood to run the first one. Thank you, Dr. Pozo * Telephone Encounter - Jania Pozo MD - 11/20/2024 10:51 AM EST ----- Message from Yvonne Riley sent at 11/17/2024 8:46 PM EST ----- Regarding: Test Cancellation марина Patrick is Yvonne in [facility]. The Prostate-Specific Antigen Diagnostic on this patient has been cancelled due to insufficient quantity. If you would like to proceed with this test, please place new orders and contact the patient for recollection. Thank you. documented in this encounterUc Medical Center02-17-2025 Telephone encounter Note * Telephone Encounter - Jania Pozo MD - 11/20/2024 10:51 AM EST Please have the patient get another PSA. They did not have enough blood to run the first one. Thank you, Dr. Pozo [facility]02-[facility] Telephone encounter Note* Telephone Encounter - Jania Pozo MD - 11/20/2024 10:51 AM EST ----- Message from Yvonne Riley sent at 11/17/2024 8:46 PM EST ----- Regarding: Test Cancellation Darnell this is Yvonne in [facility]. The Prostate-Specific Antigen Diagnostic on this patient has been cancelled due to insufficient quantity. If you would like to proceed with this test, please place new orders and contact the patient for recollection. Thank you. [facility]25 NoteHNO ID: [id number] Author: MEGHANN STRICKLAND PA-C Service: ? Author Type: Physician Business Banking Sales Assistant Type: Progress Notes Filed: 11/16/2024 13:30 Note Text: Chief Complaint Patient presents with: Sinus Problem HPI Denton Wesley is a 74 year old male who presents here today for Above Complaints.. Patient reports that last week he had chills, body aches, fever and left work early. Symptoms continued over the weekend. By Wednesday he did feel better. Then on Wednesday, started to feel sinus pressure and sore throat. Low engery level. No fever. +fatigue. Neg covid at home test. Past medical history, appointments, medications, allergies reviewed. Previous Medical History PAST MEDICAL HISTORY Diagnosis Date Abdominal pain, other specified site Asthma Awareness under anesthesia CAD (coronary artery disease) Cholelithiasis 09/25/2013 Colitis Diabetes mellitus (HCC) type 2 diet controlled Elevated prostate specific antigen (PSA) Esophageal reflux Gastroesophageal reflux Hypertension Impotence of organic origin Impotence Nocturia SUJEY (obstructive sleep apnea) Post-void dribbling Prostate cancer (HCC) RUQ abdominal pain 09/25/2013 Previous Surgical History PAST SURGICAL HISTORY Procedure Laterality Date CABG (2) VEIN GRAFTS AND ARTERIAL GRAFT(S 10/16/2022 COLONOSCOPY FLX DX W/COLLJ SPEC WHEN PFRMD Colonoscopy Dr. Ferreira ESOPHAGOGASTRODUODENOSCOPY TRANSORAL DIAGNOSTIC EGD Dr. Ferreira LAPAROSCOPY SURG CHOLECYSTECTOMY 09/25/2013 PAST SURGICAL HISTORY OF IANDD left hand PAST SURGICAL HISTORY OF Removal cyst on back PROSTATE BIOPSY GUKI 07/14/2022 STENT PLACEMENT 4 Stents Family History FAMILY HISTORY Problem Relation Age of Onset Colon Cancer Mother Heart Mother Ovarian cancer Mother Prostate Cancer Brother Stroke Brother Emphysema Father Patient Allergies ALLERGIES Allergen Reactions Gemfibrozil Intolerance Rosuvastatin Intolerance Simvastatin Intolerance Imdur [Isosorbide] Intolerance Headaches, upset stomach, fatigue Penicillins Intolerance passed out and felt like I had the flu Pt states he's no longer allergic to this, he's taken tests w/out issues. Pravastatin Myalgia Current Medications Current Outpatient Medications on File Prior to Visit Medication Sig evolocumab (REPATHA SURECLICK) 140 mg/mL pen injector Inject 140 mg subcutaneously every 2 weeks. semaglutide (OZEMPIC) 0.25 mg or 0.5 mg (2 mg/3 mL) pen Inject 0.25 mg subcutaneously one time a week. famotidine (PEPCID) 20 mg tablet Take 1 tablet by mouth at bedtime as needed (Heartburn). amLODIPine (NORVASC) 5 mg tablet Take 1 tablet by mouth once daily. losartan (COZAAR) 100 mg tablet Take 1 tablet by mouth once daily. multivit-min/folic/vit K/lycop (MEN'S MULTIVITAMIN ORAL) Take by mouth. (Patient not taking: Reported on 11/16/2024) docosahexaenoic acid/epa (FISH OIL ORAL) Take by mouth. lansoprazole (PREVACID) 30 mg capsule Take 1 capsule by mouth daily before breakfast. 1/2 hr before meal. apixaban (ELIQUIS) 5 mg tab(s) Take 1 tablet by mouth two times a day. aspirin, enteric coated (ECOTRIN LOW STRENGTH) 81 mg EC tablet Take 1 tablet by mouth once daily. guaiFENesin (MUCINEX) 600 mg 12 hr tablet Take 1 tablet by mouth twice daily as needed for cold/allergy symptoms. loratadine (CLARITIN) 10 mg tablet Take 1 tablet by mouth once daily. nitroglycerin sublingual (NITROQUICK) 0.4 mg SL tablet Dissolve 0.4 mg under the tongue every 5 minutes as needed. ADVAIR DISKUS 500-50 mcg/dose dsdv INHALE 1 (ONE) puff EVERY 12 HOURS No current facility-administered medications on file prior to visit. Social History Social History Tobacco Use Smoking status: Every Day Current packs/day: 0.25 Average packs/day: 0.3 packs/day for 1.2 years (0.3 ttl pk-yrs) Types: Cigarettes Start date: 08/25/2023 Smokeless tobacco: Never Tobacco comments: Resumed last week after the of his spouse Vaping Use Vaping status: Never Used Substance Use Topics Alcohol use: Yes Comment: 1 beer in the evening occasionally Drug use: No Review of Symptoms REVIEW OF SYSTEMS See hpi EXAM: BP 138/80 (BP Site: Left Arm, BP Position: Sitting, BP Cuff Size: Large Adult) Pulse 83 Temp 37.3 ?C (99.1 ?F) Resp 18 SpO2 98% General Appearance: Well appearing, alert, in no acute distress, well-hydrated, well nourished.. Eyes: Anicteric sclera. Pupils are equally round and reactive to light. Extraocular movements are intact. . Ears: mild wax on left. . Nose/Sinuses: +sinus pressure to palp.. Oropharynx: Positive findings: mild oropharyngeal erythema. Neck: Supple, no adenopathy; thyroid symmetric, normal size, no bruits. Lungs: Lungs clear to auscultation. No wheezing, rhonchi, rales.. Heart: RRR without murmur, gallop, or rubs. No ectopy. Health Maintenance List Dilated Retinal Exam Never done Diabetic Foot Exam Never done Depressi (more content not included)...[facility]02-[facility] History of Present illness Narrative* Meghann Strickland PA-C - 11/16/2024 1:17 PM EST Chief Complaint Patient presents with: Sinus Problem HPI Denton Wesley is a 74 year old male who presents here today for Above Complaints.. Patient reports that last week he had chills, body aches, fever and left work early. Symptoms continued over the weekend. By Wednesday he did feel better. Then on Wednesday, started to feel sinus pressure and sore throat. Low engery level. No fever. +fatigue. Neg covid at home test. Past medical history, appointments, medications, allergies reviewed. Previous Medical History PAST MEDICAL HISTORY Diagnosis Date Abdominal pain, other specified site Asthma Awareness under anesthesia CAD (coronary artery disease) Cholelithiasis 09/25/2013 Colitis Diabetes mellitus (HCC) type 2 diet controlled Elevated prostate specific antigen (PSA) Esophageal reflux Gastroesophageal reflux Hypertension Impotence of organic origin Impotence Nocturia SUJEY (obstructive sleep apnea) Post-void dribbling Prostate cancer (HCC) RUQ abdominal pain 09/25/2013 Previous Surgical History PAST SURGICAL HISTORY Procedure Laterality Date CABG (2) VEIN GRAFTS & ARTERIAL GRAFT(S 10/16/2022 COLONOSCOPY FLX DX W/COLLJ SPEC WHEN PFRMD Colonoscopy Dr. Ferreira ESOPHAGOGASTRODUODENOSCOPY TRANSORAL DIAGNOSTIC EGD Dr. Ferreira LAPAROSCOPY SURG CHOLECYSTECTOMY 09/25/2013 PAST SURGICAL HISTORY OF I&D left hand PAST SURGICAL HISTORY OF Removal cyst on back PROSTATE BIOPSY GUKI 07/14/2022 STENT PLACEMENT 4 Stents Family History FAMILY HISTORY Problem Relation Age of Onset Colon Cancer Mother Heart Mother Ovarian cancer Mother Prostate Cancer Brother Stroke Brother Emphysema Father Patient Allergies ALLERGIES Allergen Reactions Gemfibrozil Intolerance Rosuvastatin Intolerance Simvastatin Intolerance Imdur [Isosorbide] Intolerance Headaches, upset stomach, fatigue Penicillins Intolerance passed out and felt like I had the flu Pt states he's no longer allergic to this, he's taken tests w/out issues. Pravastatin Myalgia Current Medications Current Outpatient Medications on File Prior to Visit Medication Sig evolocumab (REPATHA SURECLICK) 140 mg/mL pen injector Inject 140 mg subcutaneously every 2 weeks. semaglutide (OZEMPIC) 0.25 mg or 0.5 mg (2 mg/3 mL) pen Inject 0.25 mg subcutaneously one time a week. famotidine (PEPCID) 20 mg tablet Take 1 tablet by mouth at bedtime as needed (Heartburn). amLODIPine (NORVASC) 5 mg tablet Take 1 tablet by mouth once daily. losartan (COZAAR) 100 mg tablet Take 1 tablet by mouth once daily. multivit-min/folic/vit K/lycop (MEN'S MULTIVITAMIN ORAL) Take by mouth. (Patient not taking: Reported on 11/16/2024) docosahexaenoic acid/epa (FISH OIL ORAL) Take by mouth. lansoprazole (PREVACID) 30 mg capsule Take 1 capsule by mouth daily before breakfast. 1/2 hr beforemeal. apixaban (ELIQUIS) 5 mg tab(s) Take 1 tablet by mouth two times a day. aspirin, enteric coated (ECOTRIN LOW STRENGTH) 81 mg EC tablet Take 1 tablet by mouth once daily. guaiFENesin (MUCINEX) 600 mg 12 hr tablet Take 1 tablet by mouth twice daily as needed for cold/allergy symptoms. loratadine (CLARITIN) 10 mg tablet Take 1 tablet by mouth once daily. nitroglycerin sublingual (NITROQUICK) 0.4 mg SL tablet Dissolve 0.4 mg under the tongue every 5 minutes as needed. ADVAIR DISKUS 500-50 mcg/dose dsdv INHALE 1 (ONE) puff EVERY 12 HOURS No current facility-administered medications on file prior to visit. Social History Social History Tobacco Use Smoking status: Every Day Current packs/day: 0.25 Average packs/day: 0.3 packs/day for 1.2 years (0.3 ttl pk-yrs) Types: Cigarettes Start date: 08/25/2023 Smokeless tobacco: Never Tobacco comments: Resumed last week after the of his spouse Vaping Use Vaping status: Never Used Substance Use Topics Alcohol use: Yes Comment: 1 beer in the evening occasionally Drug use: No Review of Symptoms REVIEW OF SYSTEMS See hpi EXAM: BP 138/80 (BP Site: Left Arm, BP Position: Sitting, BP Cuff Size: Large Adult) Pulse 83 Temp 37.3 C (99.1 F) Resp 18 SpO2 98% General Appearance: Well appearing, alert, in no acute distress, well-hydrated, well nourished.. Eyes: Anicteric sclera. Pupils are equally round and reactive to light. Extraocular movements are intact. . Ears: mild wax on left. . Nose/Sinuses: +sinus pressure to palp.. Oropharynx: Positive findings: mild oropharyngeal erythema. Neck: Supple, no adenopathy; thyroid symmetric, normal size, no bruits. Lungs: Lungs clear to auscultation. No wheezing, rhonchi, rales.. Heart: RRR without murmur, gallop, or rubs. No ectopy. Health Maintenance List Dilated Retinal Exam Never done Diabetic Foot Exam Never done Depression Screening Never done Anxiety Screening Never done DTaP,Tdap,Td Vaccine(1 - Tdap) Never done Pneumococcal Vaccine: 50+(1 of 2 - PCV) Never done RSV Vaccine(1 - Risk 60-74 years 1-dose series) Never done Shingrix Vaccine(2 of 2) due on 12/22/2019 BP Controlled (<130/80) due on 04/01/2022 Advance Directive Discussion Never done Covid-19 Vaccine( season) due on 12/21/2024 HbA1C due on 03/07/2025 Urine Albumin:Creatinine Ratio due on 06/07/2025 LDL Cholesterol due on 06/07/2025 Colorectal Cancer Screening due on 07/19/2025 Annual PCP Team Chronic Disease Visit due on 09/06/2025 Abdominal Aortic Aneurysm Screening Completed Influenza Vaccine Completed Hepatitis C Screening Completed Data reviewed ASSESSMENT/PLAN: 1. Flu-like symptoms - ICD9: 780.99, ICD10: R68.89 (primary diagnosis) I suspect patient has influenza A given symptoms that he had last week. With symptoms improving and then developing worsening Sinus symptoms, will treat as possible bacterial sinusitis. Continue symptom management with plenty of rest and fluids. Follow up if not improving 2. Bacterial sinusitis - ICD9: 473.9, 041.9, ICD10: J32.9, B96.89 As above. Meghann Strickland PA-C documented [facility]25 Telephone encounter Note * Telephone Encounter - Wai Kaiser MA - 11/02/2024 7:53 AM EST VERONICA: 09/04/2024 Barrera NOV: 12/15/2024 Barrera [facility]01-30-[facility] Miscellaneous Notes* Telephone Encounter - Wai Kaiser MA - 11/02/2024 7:53 AM EST VERONICA: 09/04/2024 Barrera NOV: 12/15/2024 Barrera documented in this encounter[facility]12-20-2024 Telephone encounter Note * Telephone Encounter - Jasmine Menendez RN - 09/22/2024 3:46 PM EST Patient notified of results and provider's instructions. Patient verbalizes understanding. Jasmine Menendez RN [facility]12-20[facility] Miscellaneous Notes* Telephone Encounter - Jasmine Menendez RN - 09/22/2024 3:46 PM EST Patient notified of results and provider's instructions. Patient verbalizes understanding. Jasmine Menendez RN * Telephone Encounter - Joseph Tubbs MA - 09/22/2024 2:00 PM EST [employer] message sent to pt notifying him we've attempted to reach him by phone. Asked pt to call office back and speak with FM Triage Nurse. Joseph Tubbs MA * Telephone Encounter - Matilda Skaggs RN - 09/20/2024 9:20 AM EST Called and left a voicemail for the patient to call back and ask for a nurse to receive the providers message. * Telephone Encounter - Gerri Curry APRN.CNP - 09/20/2024 7:39 AM EST Can you please call the patient and let him know that I reviewed his ultrasound results. Can please let patient know that his u/s showed what's called fatty liver. This happens when fat builds up in the liver. While it is usually not problematic; it can cause cirrhosis (or scarring of the liver) -- which can be problematic. Measures to prevent this include: 1. Weight loss 2. Good control of diabetes 3. Good control of cholesterol. Please let me know if he has any questions. Thank you. Gerri Curry APRN.MANNY documented in this encounter[facility]12-20-2024 Telephone encounter Note * Telephone Encounter - Joseph Tubbs MA - 09/22/2024 2:00 PM EST [employer] message sent to pt notifying him we've attempted to reach him by phone. Asked pt to call office back and speak with Triage Nurse. Joseph Tubbs MA [facility]12-18-[facility] Telephone encounter Note* Telephone Encounter - Matilda Skaggs RN - 09/20/2024 9:20 AM EST Called and left a voicemail for the patient to call back and ask for a nurse to receive the providers message. [facility] Telephone encounter Note* Telephone Encounter - Gerri Curry APRN.CNP - 09/20/2024 7:39 AM EST Can you please call the patient and let him know that I reviewed his ultrasound results. Can please let patient know that his u/s showed what's called fatty liver. This happens when fat builds up in the liver. While it is usually not problematic; it can cause cirrhosis (or scarring of the liver) -- which can be problematic. Measures to prevent this include: 1. Weight loss 2. Good control of diabetes 3. Good control of cholesterol. Please let me know if he has any questions. Thank you. Gerri Curry APRN.TECHNICAL SUPPORT CONSULTANT [facility]12-[facility] History of Present illness Narrative* Michelle Short, CT - 09/19/2024 12:00 PM EST RADIOLOGY SERVICE PROGRESS NOTE SERVICE DATE: 09/19/2024 SERVICE TIME: 11:22 AM PATIENT IDENTITY VERIFICATION COMPLETED USING TWO (2) STANDARD IDENTIFIERS: Name and Date of confirmed by patient verbally and Name and Date of confirmed by identification band FALL SCREENING: Has the patient had 2 falls in the last year or 1 fall with injury or currently using an Ambulatory Assistive Device (Walker, Cane, Wheelchair, Crutches, etc.)? No PATIENT GENDER DATA: .male ALLERGIES: Reviewed and unchanged MEDICATIONS REVIEWED: Not applicable PATIENT RELEVANT IMPLANT DATA REVIEWED: Not Applicable PATIENT PRESENTS WITH AN IMPLANTABLE OR ATTACHED HEAD LINEMAN: No CREATININE: Creatinine Date Value Ref Range Status 09/06/2024 0.75 0.73 - 1.22 mg/dL Final 06/07/2024 0.74 0.73 - 1.22 mg/dL Final 02/14/2024 0.80 0.73 - 1.22 mg/dL Final Estimated Glomerular Filtration Rate Date Value Ref Range Status 09/06/2024 95 >=60 mL/min/1.73m Final Comment: Estimated Glomerular Filtration Rate (eGFR) is calculated using the 2020 CKD-EPI creatinine equation. This equation utilizes serum creatinine, sex, and age as parameters. The creatinine assay has traceable calibration to isotope dilution- mass spectrometry. Refer to KDIGO guidelines for clinical interpretation. In patients with unstable renal function, e.g. those with acute kidney injury, the eGFRmay not accurately reflect actual GFR. eGFR- Date Value Ref Range Status 04/01/2021 >60 Final P.O.C.T. RESULTS: N/A September 19, [address] PERFORMED: No IV SITE: Ambulatory: A peripheral IV was started in the Left antecubital site with a Angio cath: 24gauge. POST EXAM PIV STATUS: Discontinued PROCEDURE TYPE: NM Stress: 12.9 mCi [id number] was administered IV for Rest Imaging at 11:11 by MG. 35.3 mCi Gt60b-Oggvilq was administered IV for Stress Imaging at 12:53 by . PATIENT DISCHARGED TO: Ambulatory patient, left [place] department area. Is this a therapy: No A Diagnostic radioactive procedure has taken place, with no further precautions necessary other than routine body substance precautions. More information regarding radiation safety can be found usingthis link: [email or web address] 20Diagnostic%20Nuclear%20Medicine%[email or web address] SIGNATURE: SWAPNA Moe PATIENT NAME: Denton Wesley DATE: September 19, 2024 TIME: 11:22 AM PAGER/CONTACT #: documented in this encounterUc Medical Center12-17-2024 NoteHNO ID: [id number] Author: MICHELLE SHORT CT Service: Nuclear Medicine Author Type: Technologist Type: Progress Notes Filed: 09/19/2024 12:34 Note Text: RADIOLOGY SERVICE PROGRESS NOTE SERVICE DATE: 09/19/2024 SERVICE TIME: 11:22 AM PATIENT IDENTITY VERIFICATION COMPLETED USING TWO (2) STANDARD IDENTIFIERS: Name and Date of confirmed by patient verbally and Name and Date of confirmed by identification band FALL SCREENING: Has the patient had 2 falls in the last year or 1 fall with injury or currently using an Ambulatory Assistive Device (Walker, Cane, Wheelchair, Crutches, etc.)? No PATIENT GENDER DATA: .male ALLERGIES: Reviewed and unchanged MEDICATIONS REVIEWED: Not applicable PATIENT RELEVANT IMPLANT DATA REVIEWED: Not Applicable PATIENT PRESENTS WITH AN IMPLANTABLE OR ATTACHED HEAD LINEMAN: No CREATININE: Creatinine Date Value Ref Range Status 09/06/2024 0.75 0.73 - 1.22 mg/dL Final 06/07/2024 0.74 0.73 - 1.22 mg/dL Final 02/14/2024 0.80 0.73 - 1.22 mg/dL Final Estimated Glomerular Filtration Rate Date Value Ref Range Status 09/06/2024 95 >=60 mL/min/1.73m? Final Comment: Estimated Glomerular Filtration Rate (eGFR) is calculated using the 2020 CKD-EPI creatinine equation. This equation utilizes serum creatinine, sex, and age as parameters. The creatinine assay has traceable calibration to isotope dilution-mass spectrometry. Refer to KDIGO guidelines for clinical interpretation. In patients with unstable renal function, e.g. those with acute kidney injury, the eGFR may not accurately reflect actual GFR. eGFR- Date Value Ref Range Status 04/01/2021 >60 Final P.O.C.T. RESULTS: N/A September 19, [address] PERFORMED: No IV SITE: Ambulatory: A peripheral IV was started in the Left antecubital site with a Angio cath: 24 gauge. POST EXAM PIV STATUS: Discontinued PROCEDURE TYPE: NM Stress: 12.9 mCi [id number]-[id number] was administered IV for Rest Imaging at 11:11 by . 35.3 mCi [id number]-[id number] was administered IV for Stress Imaging at 12:53 by . PATIENT DISCHARGED TO: Ambulatory patient, left [place] department area. Is this a therapy: No A Diagnostic radioactive procedure has taken place, with no further precautions necessary other than routine body substance precautions. More information regarding radiation safety can be found using this link: [email or web address]%20Nuclear%[email or web address] SIGNATURE: SWAPNA Moe PATIENT NAME: Denton Wesley DATE: September 19, 2024 TIME: 11:22 AM [id number] Telephone encounter Note* Telephone Encounter - Joseph Tubbs MA - 09/19/2024 11:17 AM EST US completed 09/18/24. Joseph Tubbs MA [facility] Miscellaneous Notes* Telephone Encounter - Joseph Tubbs MA - 09/19/2024 11:17 AM EST US completed 09/18/24. Joseph Tubbs MA * Telephone Encounter - Tasha Lopez - 09/14/2024 1:02 PM EST 2nd call attempt, left vm * Telephone Encounter - Tasha Hays - 09/11/2024 9:57 AM EST 1st attempt LVM to schedule US * Telephone Encounter - Joseph Tubbs MA - 09/08/2024 8:16 AM EST Can we please call pt and help assist him in scheduling RUQ US as ordered by Provider. Joseph Tubbs MA * Telephone Encounter - Gerri Curry APRN.CNP - 09/08/2024 6:56 AM EST Noted, RUQ US has been placed. Gerri Curry APRN.MANNY * Telephone Encounter - Amy Kate RN - 09/07/2024 3:45 PM EST Pt called and is notified of providers results and instructions. Pt voices understanding. Pt stateshe thinks the Ozempic is the one that his insurance covers, but he is going to call them and make sure and give us a call back. Pt would like provider RUQ ultrasound for further evaluation. Amy Kate, CHILANGO * Telephone Encounter - Gerri Curry APRN.CNP - 09/07/2024 3:20 PM EST Can you please call the patient and let him know that I reviewed his lab results. A1c went from 6.9 to 7.0. Labs are relatively stable, I see no signs of pancreatitis or infection. Due to the ongoing epigastric pain we can get a RUQ ultrasound for further evaluation. I know he was concerned about the recent weight gain, I can send in a prescription for a GLP-1 injectable which will help his diabetes as well as weight loss. This would include Ozempic, Mounjaro, orTrulicity. Please let me know what he prefers. I would like him to continue to work on eating a low-carb diet, increase lean protein, vegetables, get some form exercise. Thank you Gerri Curry APRN.TECHNICAL SUPPORT CONSULTANT documented in this encounterUc [facility] Center12-16-2024 Telephone encounter Note * Telephone Encounter - Siri Mccarty RN - 09/18/2024 3:15 PM EST Spoke to pt regarding reminder and instructions for stress test tomorrow. This included where to check in, length of test and no caffeine for 12 hours prior to test, [facility] Miscellaneous Notes* Telephone Encounter - Siri Mccarty RN - 09/18/2024 3:15 PM EST Spoke to pt regarding reminder and instructions for stress test tomorrow. This included where to check in, length of test and no caffeine for 12 hours prior to test, documented in this encounterUc Medical Center12-16-2024 History of Present illness Narrative* Isabelle Horne RDMS - 09/18/2024 1:45 PM EST Radiology Service Progress Note PATIENT NAME: Denton Wesley DATE OF SERVICE: September 18, 2024 TIME: 3:48 PM PATIENT IDENTITY VERIFICATION COMPLETED USING TWO (2) IDENTIFIERS: Name and Date of confirmedby patient verbally. FALL SCREENING: Has the patient had 2 falls in the last year or 1 fall with injury or currently using an Ambulatory Assistive Device (Walker, Cane, Wheelchair, Crutches, etc.)? No PATIENT GENDER DATA: Male PATIENT RELEVANT IMPLANT DATA REVIEWED: Not Applicable PATIENT PRESENTS WITH AN IMPLANTABLE OR ATTACHED HEAD LINEMAN: No RADIOLOGY DEPARTMENT: Ultrasound PERIPHERAL IV DATA: Not applicable SIGNED BY: Isabelle Horne RDMS September 18, 2024 3:48 PM documented in this encounterUc Medical Center12-16-2024 NoteHNO ID: [id number] Author: ISABELLE HORNE RDMS Service: ? Author Type: Dye Machine Operator Type: Progress Notes Filed: 09/18/2024 15:48 Note Text: Radiology Service Progress Note PATIENT NAME: Denton Wesley DATE OF SERVICE: September 18, 2024 TIME: 3:48 PM PATIENT IDENTITY VERIFICATION COMPLETED USING TWO (2) IDENTIFIERS: Name and Date of confirmed by patient verbally. FALL SCREENING: Has the patient had 2 falls in the last year or 1 fall with injury or currently using an Ambulatory Assistive Device (Walker, Cane, Wheelchair, Crutches, etc.)? No PATIENT GENDER DATA: Male PATIENT RELEVANT IMPLANT DATA REVIEWED: Not Applicable PATIENT PRESENTS WITH AN IMPLANTABLE OR ATTACHED HEAD LINEMAN: No RADIOLOGY DEPARTMENT: Ultrasound PERIPHERAL IV DATA: Not applicable SIGNED BY: Isabelle Horne RDMS September 18, 2024 3:48 PMCHol[facility] Telephone encounter Note* Telephone Encounter - Tasha Lopez - 09/14/2024 1:02 PM EST 2nd call attempt, left vm [facility]12-[facility] Telephone encounter Note* Telephone Encounter - Tasha Hays - 09/11/2024 9:57 AM EST 1st attempt LVM to schedule US [facility]12-06-[facility] Telephone encounter Note* Telephone Encounter - Gerri Curry APRN.CNP - 09/08/2024 8:38 AM EST The following approved medication requests have been transmitted electronically. Requested Prescriptions Signed Prescriptions Disp Refills semaglutide (OZEMPIC) 0.25 mg or 0.5 mg (2 mg/3 mL) pen 3 mL 2 Sig: Inject 0.25 mg subcutaneously one time a week. Gerri Curry APRN.CNP [facility]12-06-2024 Miscellaneous Notes* Telephone Encounter - Gerri Curry APRN.CNP - 09/08/2024 8:38 AM EST The following approved medication requests have been transmitted electronically. Requested Prescriptions Signed Prescriptions Disp Refills semaglutide (OZEMPIC) 0.25 mg or 0.5 mg (2 mg/3 mL) pen 3 mL 2 Sig: Inject 0.25 mg subcutaneously one time a week. Gerri Curry APRN.CNP * Telephone Encounter - Rosie Greer LPN - 09/08/2024 7:31 AM EST Please see Kypha message documented in this encounterUc Medical Center12-06-2024 Telephone encounter Note * Telephone Encounter - Joseph Tubbs MA - 09/08/2024 8:16 AM EST Can we please call pt and help assist him in scheduling RUQ US as ordered by Provider. Joseph Tubbs MA [facility]12-06-[facility] Telephone encounter Note* Telephone Encounter - Rosie Greer LPN - 09/08/2024 7:31 AM EST Please see Kypha message [facility]12-06-[facility] Telephone encounter Note* Telephone Encounter - Gerri Curry APRN.CNP - 09/08/2024 6:56 AM EST Noted, RUQ US has been placed. Gerri Curry APRN.MANNY [facility]12-05-20[facility] Telephone encounter Note* Telephone Encounter - Charles Linn - 09/07/2024 4:48 PM EST Called patient to see what exactly the chest pain was and if there were any other symptoms. Patientstated he meant to reach out to Cardiology. Which he had already made an appointment with them. [facility] Miscellaneous Notes* Telephone Encounter - Charles Linn - 09/07/2024 4:48 PM EST Called patient to see what exactly the chest pain was and if there were any other symptoms. Patientstated he meant to reach out to Cardiology. Which he had already made an appointment with them. documented in this encounterUc Medical Center12-05-2024 Telephone encounter Note * Telephone Encounter - Amy Kate RN - 09/07/2024 3:45 PM EST Pt called and is notified of providers results and instructions. Pt voices understanding. Pt stateshe thinks the Ozempic is the one that his insurance covers, but he is going to call them and make sure and give us a call back. Pt would like provider RUQ ultrasound for further evaluation. Amy Kate, RN [facility]12-05-[facility] Telephone encounter Note* Telephone Encounter - Gerri Curry APRN.CNP - 09/07/2024 3:20 PM EST Can you please call the patient and let him know that I reviewed his lab results. A1c went from 6.9 to 7.0. Labs are relatively stable, I see no signs of pancreatitis or infection. Due to the ongoing epigastric pain we can get a RUQ ultrasound for further evaluation. I know he was concerned about the recent weight gain, I can send in a prescription for a GLP-1 injectable which will help his diabetes as well as weight loss. This would include Ozempic, Mounjaro, orTrulicity. Please let me know what he prefers. I would like him to continue to work on eating a low-carb diet, increase lean protein, vegetables, get some form exercise. Thank you Gerri Curry APRN.TECHNICAL SUPPORT CONSULTANT [facility]12-04-2024 Instructions* Patient Instructions* Gerri Curry APRN.CNP - 09/06/2024 3:11 PM EST Get labs completed Recommend taking Prevacid in the morning, take on empty stomach 30 minutes prior to breakfast. Recommend Pepcid 20 mg at bedtime. Try to eat smaller meals. Do not eat 2-3 hours prior to sleep. Watch acidic and greasy foods. If symptoms do no improve contact the office Follow up pending test results. documented in this encounterUc Medical Center12-04-2024 History of Present illness Narrative* Gerri Curry APRN.CNP - 09/06/2024 3:00 PM EST This is a 74 year old male who presents today with: Patient presents with: Acute Visit: upper abdomen pain HISTORY OF PRESENT ILLNESS: Denton Wesley is a 74 year old male. Patient presents with: Acute Visit: upper abdomen pain Here in the office for epigastric pain. Started a couple of weeks ago. Dull ache, pressure all the time. Pressure is constant but pain seems to wax and wane. Pain worse after eating. Mild nausea at times. Will radiate to RUQ. Taking Prevacid 30 mg at bedtime. has had acid reflux while sleeping, seems to wax and wane. Will vomit when sleeping. Has not noticed heartburn during the day. Does struggle with constipation at times. Using Dulcolax as needed. Having a BM daily. Has noticed weight gain. History of AAA, following with Vascular Surgery, Dr. Arreaga, will get repeat US in 1 year. PAST MEDICAL HISTORY: PAST MEDICAL HISTORY Diagnosis Date Abdominal pain, other specified site Asthma Awareness under anesthesia CAD (coronary artery disease) Cholelithiasis 09/25/2013 Colitis Diabetes mellitus (HCC) type 2 diet controlled Elevated prostate specific antigen (PSA) Esophageal reflux Gastroesophageal reflux Hypertension Impotence of organic origin Impotence Nocturia SUJEY (obstructive sleep apnea) Post-void dribbling Prostate cancer (HCC) RUQ abdominal pain 09/25/2013 PAST SURGICAL HISTORY Procedure Laterality Date CABG (2) VEIN GRAFTS & ARTERIAL GRAFT(S 10/16/2022 COLONOSCOPY FLX DX W/COLLJ SPEC WHEN PFRMD Colonoscopy Dr. Ferreira ESOPHAGOGASTRODUODENOSCOPY TRANSORAL DIAGNOSTIC EGD Dr. Ferreira LAPAROSCOPY SURG CHOLECYSTECTOMY 09/25/2013 PAST SURGICAL HISTORY OF I&D left hand PAST SURGICAL HISTORY OF Removal cyst on back PROSTATE BIOPSY GUKI 07/14/2022 STENT PLACEMENT 4 Stents ALLERGIES Gemfibrozil, Rosuvastatin, Simvastatin, Imdur [Isosorbide], Penicillins, and Pravastatin MEDICATIONS Current Outpatient Medications Medication Sig amLODIPine (NORVASC) 5 mg tablet Take 1 tablet by mouth once daily. amoxicillin-clavulanate potassium (AUGMENTIN) 875-125 mg per tablet Take 875 mg by mouth three times a day. losartan (COZAAR) 100 mg tablet Take 1 tablet by mouth once daily. multivit-min/folic/vit K/lycop (MEN'S MULTIVITAMIN ORAL) Take by mouth. docosahexaenoic acid/epa (FISH OIL ORAL) Take by mouth. lansoprazole (PREVACID) 30 mg capsule Take 1 capsule by mouth daily before breakfast. 1/2 hr beforemeal. apixaban (ELIQUIS) 5 mg tab(s) Take 1 tablet by mouth two times a day. aspirin, enteric coated (ECOTRIN LOW STRENGTH) 81 mg EC tablet Take 1 tablet by mouth once daily. evolocumab (REPATHA SURECLICK) 140 mg/mL pen injector Inject 140 mg subcutaneously every 2 weeks. guaiFENesin (MUCINEX) 600 mg 12 hr tablet Take 1 tablet by mouth twice daily as needed for cold/allergy symptoms. loratadine (CLARITIN) 10 mg tablet Take 1 tablet by mouth once daily. nitroglycerin sublingual (NITROQUICK) 0.4 mg SL tablet Dissolve 0.4 mg under the tongue every 5 minutes as needed. ADVAIR DISKUS 500-50 mcg/dose dsdv INHALE 1 (ONE) puff EVERY 12 HOURS No current facility-administered medications for this visit. FAMILY HISTORY Problem Relation Age of Onset Colon Cancer Mother Heart Mother Ovarian cancer Mother Prostate Cancer Brother Stroke Brother Emphysema Father Social History Tobacco Use Smoking status: Every Day Current packs/day: 0.25 Average packs/day: 0.3 packs/day for 1 year (0.3 ttl pk-yrs) Types: Cigarettes Start date: 08/25/2023 Smokeless tobacco: Never Tobacco comments: Resumed last week after the of his spouse Vaping Use Vaping status: Never Used Substance Use Topics Alcohol use: Yes Comment: 1 beer in the evening occasionally Drug use: No REVIEW OF SYSTEMS GENERAL: + Weight Gain HEENT: Negative for frequent or significant headaches, No changes in hearing or vision. NECK: Negative for lumps, goiter, pain and significant neck swelling RESPIRATORY: Negative for cough, hemoptysis, wheezing, dyspnea or shortness of breath CARDIOVASCULAR: Negative for chest pain, leg swelling, orthopnea, or palpitations GI: + Epigastric pain, Constipation, N/V, Heartburn : No history of dysuria, frequency or incontinence MUSCULOSKELETAL: Negative for joint pain or swelling. SKIN: Negative for lesions, rash, and itching ENDOCRINE: Negative for cold or heat intolerance, polyuria, polydipsia and goiter NEURO: No history of headaches, syncope, paralysis, seizures or tremors MOOD: Negative for depression, anxiety, or suicidal ideation. EXAM: BP 132/82 Pulse 81 Resp 16 Wt 105.6 kg (232 lb 12.9 oz) SpO2 98% BMI 32.47 kg/m PHYSICAL EXAM: General Appearance: Well appearing, alert, in no acute distress, well-hydrated, well nourished. Skin: Skin color, texture, turgor normal, no suspicious rashes or lesions. Head: Normocephalic, no masses, lesions, tenderness or abnormalities. Eyes: Anicteric sclera. Extraocular movements are intact. Lungs: Lungs clear to auscultation. No wheezing, rhonchi, rales. Heart: RRR without murmur, gallop, or rubs. No ectopy. Abdomen: Abdomen distended, epigastric tenderness with palpation. Bowel sounds normal. No masses, organomegaly. Extremities: No deformities, edema, skin discoloration, clubbing or cyanosis. Good capillary refill. Musculoskeletal: No joint swelling, deformity, or tenderness. Peripheral Pulses: Normal, Capillary refill <2secs, strong peripheral pulses, Pulses palpable. ASSESSMENT/PLAN: 1. Epigastric pain - ICD9: 789.06, ICD10: R10.13 (primary diagnosis) - Complete Labs - Medication changes, see below. - If symptoms do not improve discussed consult to general surgery for EGD. - COMPREHENSIVE METABOLIC PANEL - AMYLASE - LIPASE 2. Gastroesophageal reflux disease with esophagitis without hemorrhage - ICD9: 530.81, 530.10, ICD10: K21.00 - Recommend taking Prevacid in the morning prior to breakfast, may use Pepcid 20 mg at bedtime. - Discussed adding on Carafate if needed in the future. - FAMOTIDINE 20 MG TABLET - COMPREHENSIVE METABOLIC PANEL - AMYLASE - LIPASE - COMPLETE BLOOD COUNT AND DIFFERENTIAL 3. Weight gain - ICD9: 783.1, ICD10: R63.5 - COMPREHENSIVE METABOLIC PANEL 4. Type 2 diabetes mellitus without complication, without long-term current use of insulin (HCC) - ICD9: 250.00, ICD10: E11.9 - HEMOGLOBIN A1C Follow-up pending test results or sooner as needed. Discussed treatment plan and patient voices understanding. Patient's questions answered appropriately. Medications and potential side effects were discussed and patient voices understanding. Gerri Curry APRN.CNP This note was partially generated using ADmantX voice recognition system. Note was reviewed for accuracy. There may be minor misspellings or grammar miscues with ADmantX voice recognition. documented in this encounter[facility]24 NoteHNO ID: [id number] Author: GERRI CURRY APRN.CNP Service: ? Author Type: Nurse Practitioner Type: Progress Notes Filed: 09/06/2024 18:13 Note Text: This is a 74 year old male who presents today with: Patient presents with: Acute Visit: upper abdomen pain HISTORY OF PRESENT ILLNESS: Denton Wesley is a 74 year old male. Patient presents with: Acute Visit: upper abdomen pain Here in the office for epigastric pain. Started a couple of weeks ago. Dull ache, pressure all the time. Pressure is constant but pain seems to wax and wane. Pain worse after eating. Mild nausea at times. Will radiate to RUQ. Taking Prevacid 30 mg at bedtime. has had acid reflux while sleeping, seems to wax and wane. Will vomit when sleeping. Has not noticed heartburn during the day. Does struggle with constipation at times. Using Dulcolax as needed. Having a BM daily. Has noticed weight gain. History of AAA, following with Vascular Surgery, Dr. Arreaga, will get repeat US in 1 year. PAST MEDICAL HISTORY: PAST MEDICAL HISTORY Diagnosis Date Abdominal pain, other specified site Asthma Awareness under anesthesia CAD (coronary artery disease) Cholelithiasis 09/25/2013 Colitis Diabetes mellitus (HCC) type 2 diet controlled Elevated prostate specific antigen (PSA) Esophageal reflux Gastroesophageal reflux Hypertension Impotence of organic origin Impotence Nocturia SUJEY (obstructive sleep apnea) Post-void dribbling Prostate cancer (HCC) RUQ abdominal pain 09/25/2013 PAST SURGICAL HISTORY Procedure Laterality Date CABG (2) VEIN GRAFTS AND ARTERIAL GRAFT(S 10/16/2022 COLONOSCOPY FLX DX W/COLLJ SPEC WHEN PFRMD Colonoscopy Dr. Ferreira ESOPHAGOGASTRODUODENOSCOPY TRANSORAL DIAGNOSTIC EGD Dr. Ferreira LAPAROSCOPY SURG CHOLECYSTECTOMY 09/25/2013 PAST SURGICAL HISTORY OF IANDD left hand PAST SURGICAL HISTORY OF Removal cyst on back PROSTATE BIOPSY GUKI 07/14/2022 STENT PLACEMENT 4 Stents ALLERGIES Gemfibrozil, Rosuvastatin, Simvastatin, Imdur [Isosorbide], Penicillins, and Pravastatin MEDICATIONS Current Outpatient Medications Medication Sig amLODIPine (NORVASC) 5 mg tablet Take 1 tablet by mouth once daily. amoxicillin-clavulanate potassium (AUGMENTIN) 875-125 mg per tablet Take 875 mg by mouth three times a day. losartan (COZAAR) 100 mg tablet Take 1 tablet by mouth once daily. multivit-min/folic/vit K/lycop (MEN'S MULTIVITAMIN ORAL) Take by mouth. docosahexaenoic acid/epa (FISH OIL ORAL) Take by mouth. lansoprazole (PREVACID) 30 mg capsule Take 1 capsule by mouth daily before breakfast. 1/2 hr before meal. apixaban (ELIQUIS) 5 mg tab(s) Take 1 tablet by mouth two times a day. aspirin, enteric coated (ECOTRIN LOW STRENGTH) 81 mg EC tablet Take 1 tablet by mouth once daily. evolocumab (REPATHA SURECLICK) 140 mg/mL pen injector Inject 140 mg subcutaneously every 2 weeks. guaiFENesin (MUCINEX) 600 mg 12 hr tablet Take 1 tablet by mouth twice daily as needed for cold/allergy symptoms. loratadine (CLARITIN) 10 mg tablet Take 1 tablet by mouth once daily. nitroglycerin sublingual (NITROQUICK) 0.4 mg SL tablet Dissolve 0.4 mg under the tongue every 5 minutes as needed. ADVAIR DISKUS 500-50 mcg/dose dsdv INHALE 1 (ONE) puff EVERY 12 HOURS No current facility-administered medications for this visit. FAMILY HISTORY Problem Relation Age of Onset Colon Cancer Mother Heart Mother Ovarian cancer Mother Prostate Cancer Brother Stroke Brother Emphysema Father Social History Tobacco Use Smoking status: Every Day Current packs/day: 0.25 Average packs/day: 0.3 packs/day for 1 year (0.3 ttl pk-yrs) Types: Cigarettes Start date: 08/25/2023 Smokeless tobacco: Never Tobacco comments: Resumed last week after the of his spouse Vaping Use Vaping status: Never Used Substance Use Topics Alcohol use: Yes Comment: 1 beer in the evening occasionally Drug use: No REVIEW OF SYSTEMS GENERAL: + Weight Gain HEENT: Negative for frequent or significant headaches, No changes in hearing or vision. NECK: Negative for lumps, goiter, pain and significant neck swelling RESPIRATORY: Negative for cough, hemoptysis, wheezing, dyspnea or shortness of breath CARDIOVASCULAR: Negative for chest pain, leg swelling, orthopnea, or palpitations GI: + Epigastric pain, Constipation, N/V, Heartburn : No history of dysuria, frequency or incontinence MUSCULOSKELETAL: Negative for joint pain or swelling. SKIN: Negative for lesions, rash, and itching ENDOCRINE: Negative for cold or heat intolerance, polyuria, polydipsia and goiter NEURO: No history of headaches, syncope, paralysis, seizures or tremors MOOD: Negative for depression, anxiety, or suicidal ideation. EXAM: BP 132/82 Pulse 81 Resp 16 Wt 105.6 kg (232 lb 12.9 oz) SpO2 98% BMI 32.47 kg/m? PHYSICAL EXAM: General Appearance: Well appearing, alert, in no acute distress, well-hydrated, (more content not included)...[facility]12[facility] Instructions * Patient Instructions* Jere Rust APRN.CNP - 09/04/2024 9:11 AM EST It was great to see you today, as we discussed: 1. For your chest pain I recommend we update your imaging including stress test and echocardiogram to assess for blocked heart arteries or structural issues that could be causing your symptoms 2. If chest pain does not go away with rest or nitroglycerin please be evaluated in the emergency room 3. Your blood pressure is elevated in the office for which I recommend starting Amlodipine 5 mg daily. This will also help with the chest pain if it is cardiac in nature 4. Quitting smoking is one of the best things you can do for your heart. I do not recommend transitioning to a vape. There are many ways to nursery helper you in quitting including patches, oral medications, and acupuncture to name a few. If I can assist with this please let me know. Your PCP is also able to help with this. 5. Follow up with me in 4-6 weeks, after testing to review result and symptoms documented in this encounter[facility]12-[facility] History of Present illness Narrative* Jere Rust APRN.MANNY - 09/04/2024 8:30 AM EST Images from the original note were not included. [facility] [place] Vickie Soto Department of Cardiovascular Medicine SECTION OF CLINICAL CARDIOLOGY OUTPATIENT VISIT DATE September 04, 2024 OUTPATIENT VISIT TYPE ESTABLISHED PRIMARY CARE PHYSICIAN: Cali Cordero [address] [place] [address] CHIEF COMPLAINT: Chest pains HISTORY OF PRESENT ILLNESS: Mr. Wesley is a 74 year old male with history of CAD, S/P PCI (2015), S/P CABG x2 (10/16/22), paroxysmal atrial fibrillation, HTN, HLD, and T2DM who presents today for a cardiovascular medicine follow-up visit. He was last seen in the office on 01/24/2024 at which time he noted worsening fatigue and volume overload. At that time he was started on HCTZ 12.5 mg daily and baseline labs were obtained. He unfortunately was unable to tolerate the hydrochlorothiazide thus was changed to spironolactone 25 mg daily. He has had no hospitalizations or procedures since his last office visit. He reached out to the office last week with concerns of chest pain for which appointment was made. He describes the chest discomfort as a dull ache/burning sensation on the left side of his chest that occasionally radiates tohis neck. This typically occurs with exertion although he notices it most when he sits to rest. It takes up to 30 minutes of rest for the pain to resolve. He has not taken sublingual nitroglycerin for this. He notes that it is similar to his prior angina although also different as it is not as intense and does not radiate strongly up his neck. He notes occasional palpitations since surgery which are unchanged from prior. He has lightheadedness if he moves positions too quickly but denies any presyncope or syncope. He is not regularly monitoring his heart rate or blood pressure at home. He continues to smoke about a half a pack a day but notes he is interested in quitting and is thinking about switching over to vaping instead. He denies any shortness of breath, lower extremity edema, orthopnea, or PND. Subjective PAST MEDICAL HISTORY Diagnosis Date Abdominal pain, other specified site Asthma Awareness under anesthesia CAD (coronary artery disease) Cholelithiasis 09/25/2013 Colitis Diabetes mellitus (HCC) type 2 diet controlled Elevated prostate specific antigen (PSA) Esophageal reflux Gastroesophageal reflux Hypertension Impotence of organic origin Impotence Nocturia SUJEY (obstructive sleep apnea) Post-void dribbling Prostate cancer (HCC) RUQ abdominal pain 09/25/2013 PAST SURGICAL HISTORY Procedure Laterality Date CABG (2) VEIN GRAFTS & ARTERIAL GRAFT(S 10/16/2022 COLONOSCOPY FLX DX W/COLLJ SPEC WHEN PFRMD Colonoscopy Dr. Ferreira ESOPHAGOGASTRODUODENOSCOPY TRANSORAL DIAGNOSTIC EGD Dr. Ferreira LAPAROSCOPY SURG CHOLECYSTECTOMY 09/25/2013 PAST SURGICAL HISTORY OF I&D left hand PAST SURGICAL HISTORY OF Removal cyst on back PROSTATE BIOPSY GUKI 07/14/2022 STENT PLACEMENT 4 Stents Social History Tobacco Use Smoking status: Every Day Current packs/day: 0.25 Average packs/day: 0.3 packs/day for 1 year (0.3 ttl pk-yrs) Types: Cigarettes Start date: 08/25/2023 Smokeless tobacco: Never Tobacco comments: Resumed last week after the of his spouse Vaping Use Vaping status: Never Used Substance Use Topics Alcohol use: Yes Comment: 1 beer in the evening occasionally Drug use: No FAMILY HISTORY Problem Relation Age of Onset Colon Cancer Mother Heart Mother Ovarian cancer Mother Prostate Cancer Brother Stroke Brother Emphysema Father ALLERGIES: ALLERGIES Allergen Reactions Gemfibrozil Intolerance Rosuvastatin Intolerance Simvastatin Intolerance Imdur [Isosorbide] Intolerance Headaches, upset stomach, fatigue Penicillins Intolerance passed out and felt like I had the flu Pt states he's no longer allergic to this, he's taken tests w/out issues. Pravastatin Myalgia MEDICATIONS: losartan (COZAAR) 100 mg tablet Take 1 tablet by mouth once daily. multivit-min/folic/vit K/lycop (MEN'S MULTIVITAMIN ORAL) Take by mouth. docosahexaenoic acid/epa (FISH OIL ORAL) Take by mouth. lansoprazole (PREVACID) 30 mg capsule Take 1 capsule by mouth daily before breakfast. 1/2 hr beforemeal. apixaban (ELIQUIS) 5 mg tab(s) Take 1 tablet by mouth two times a day. aspirin, enteric coated (ECOTRIN LOW STRENGTH) 81 mg EC tablet Take 1 tablet by mouth once daily. evolocumab (REPATHA SURECLICK) 140 mg/mL pen injector Inject 140 mg subcutaneously every 2 weeks. guaiFENesin (MUCINEX) 600 mg 12 hr tablet Take 1 tablet by mouth twice daily as needed for cold/allergy symptoms. loratadine (CLARITIN) 10 mg tablet Take 1 tablet by mouth once daily. nitroglycerin sublingual (NITROQUICK) 0.4 mg SL tablet Dissolve 0.4 mg under the tongue every 5 minutes as needed. ADVAIR DISKUS 500-50 mcg/dose dsdv INHALE 1 (ONE) puff EVERY 12 HOURS amLODIPine (NORVASC) 5 mg tablet Take 1 tablet by mouth once daily. amoxicillin-clavulanate potassium (AUGMENTIN) 875-125 mg per tablet Take 875 mg by mouth three times a day. REVIEW OF SYSTEMS: CARD: See HPI GENERAL: Negative for: Weight loss or gain, Fever and/or Chills HEENT: Negative for: Headache, Impaired Vision, Glasses, Hearing Impairment, Ringing in Ears, Nosebleeds, Bleeding Gums NECK: Negative for: Swelling, Pain, Stiffness RESPIRATORY: Negative for: Cough, Blood in Sputum, Shortness of breath, Wheezing, Apnea GASTROINTESTINAL: Negative for: Nausea, Vomiting, Diarrhea, Blood in stool, or Dark black stools MUSCULOSKELETAL: +Arthralgias NEUROLOGIC: Negative for: focal numbness/weakness, headaches, visual changes, ataxia, speech/language loss SKIN: Negative for: Rashes, Itching HEMATOLOGICAL/LYMPHATIC: +Easy bruising ENDOCRINE: Negative for: Heat or cold intolerance, Excessive sweating, Frequent urination, Frequentthirst Objective PHYSICAL EXAMINATION: BP 150/84 Pulse 76 Ht 180.3 cm (5' 11) Wt 105 kg (231 lb 7.7 oz) SpO2 98% BMI 32.29 kg/m General: Well appearing, in no acute distress. Skin: No clubbing, no cyanosis. Eyes: Extra ocular movements intact Oropharynx: Teeth in good repair. Neck: No jugular venous distention, no carotid bruits, carotids have a normal upstroke. Lungs: Clear to auscultation bilaterally, no wheezing or rhonchi. Heart: Regular rhythm, S1, S2 normal, no S3, no S4, no heaves, no rub and no murmur. No peripheral edema . Grade 2/4 distal pulses bilaterally. Abdomen: Soft, nontender, bowel sounds normal, no bruits. Neuro: Oriented to person, place and time, alert, cooperative, gait coordinated. CARDIOVASCULAR MEDICINE TESTING: Last EKG Result Conclusion ECG COMPLETE Collected: 09/04/2024 8:45 AM (Preliminary result) Impression: NORMAL SINUS RHYTHM NORMAL ECG I have personally reviewed the Electrocardiogram. PLAN AND RECOMMENDATIONS: Coronary artery disease Chest pain - S/P PCI with IRENE to PLB of the RCA and PTCA to prox-PDA in 2016 - S/P CABG x2 (ACEVEDO-LAD & SVG-Circ) with Dr. Colmenares at [facility] on 10/16/2022 - Chest pain previously - Patient appears compensated from cardiac standpoint - Continue ASA and Statin as currently ordered - Nuclear stress test - Amlodipine 5 mg daily Paroxysmal atrial fibrillation - Multiple episodes post op CABG - Continued daily episodes of palpitations (No correlation on Zio as below) - Zio event monitor 01/2023: Avg HR 78 min HR 54, no AF, rare ectopy, symptoms correlating with NSR - [id number] Score of 4 (Age, HTN, DM, & Vasc) - Anticoagulated with Eliquis 5 mg BID - Initially placed on Amiodarone and Metoprolol tartrate >>Significant bradycardia in the 30's and amiodarone and BB discontinued Essential hypertension - Suboptimal control on losartan - Unable to tolerate spironolactone, HCTZ, or BB in the past - Encouraged dietary sodium restriction/DASH diet - Reviewed risks of HTN and principles of treatment - Goal of BP <130/80 - Amlodipine 5 mg daily Pure hypercholesterolemia - Currently on Repatha - Documented intolerance to statins due to severe myalgias - Last lipid panel 06/2024 with LDL 67 - Normal LFTs 06/2024 Type 2 diabetes mellitus - Most recent A1c 6.9 Tobacco use - Current 1/2 PPD smoker - Wants to quit and considering a Vape - Cessation advised - Advised against vape use CONCLUSION: Patient presents today for follow-up with symptoms concerning for stable angina. EKG in the office demonstrates NSR with no significant ST/T wave abnormalities. His blood pressure is uncontrolled in the office today which could be contributing. Given elevated blood pressure and concern for angina would start amlodipine 5 mg daily. He has been intolerant to long-acting nitrates and has had significant bradycardia on beta-blockers in the past. Would additionally recommend nuclear stress test to further assess for significant epicardial disease. He continues to use tobacco for which cessation was strongly advised. We discussed multiple methods to quit smoking including patches, oral therapy, and acupuncture. He was strongly advised against vape use. He is aware to let us or his PCP know if you would like to try patches or oral therapy. His heart rate and most recent cholesterol profile remain under favorable control. He should continue to actively engage in cardiovascular risk factor modification and follow up in 1month, or sooner should need arise. CONTACT INFORMATION: Jere Rust APRN.[facility] Cardiology Nurse Practitioner Section of Regional Cardiology [facility] Dept of Cardiovascular Medicine [facility] [place] [address] [address] Office Office This note was partially generated using ADmantX voice recognition system and may contain errors related to that system including grammar, punctuation, spelling, and words that may be inappropriate documented in this encounterUc Medical Center12-02-2024 NoteHNO ID: [id number] Author: JERE RUST APRN.CNP Service: ? Author Type: Nurse Practitioner Type: Progress Notes Filed: 09/04/2024 13:27 Note Text: [facility] [place] Vickie Soto Department of Cardiovascular Medicine SECTION OF CLINICAL CARDIOLOGY OUTPATIENT VISIT DATE September 04, 2024 OUTPATIENT VISIT TYPE ESTABLISHED PRIMARY CARE PHYSICIAN: Cali Cordero [address] [place] [address] CHIEF COMPLAINT: Chest pains HISTORY OF PRESENT ILLNESS: Mr. Wesley is a 74 year old male with history of CAD, S/P PCI (2015), S/P CABG x2 (10/16/22), paroxysmal atrial fibrillation, HTN, HLD, and T2DM who presents today for a cardiovascular medicine follow-up visit. He was last seen in the office on 01/24/2024 at which time he noted worsening fatigue and volume overload. At that time he was started on HCTZ 12.5 mg daily and baseline labs were obtained. He unfortunately was unable to tolerate the hydrochlorothiazide thus was changed to spironolactone 25 mg daily. He has had no hospitalizations or procedures since his last office visit. He reached out to the office last week with concerns of chest pain for which appointment was made. He describes the chest discomfort as a dull ache/burning sensation on the left side of his chest that occasionally radiates to his neck. This typically occurs with exertion although he notices it most when he sits to rest. It takes up to 30 minutes of rest for the pain to resolve. He has not taken sublingual nitroglycerin for this. He notes that it is similar to his prior angina although also different as it is not as intense and does not radiate strongly up his neck. He notes occasional palpitations since surgery which are unchanged from prior. He has lightheadedness if he moves positions too quickly but denies any presyncope or syncope. He is not regularly monitoring his heart rate or blood pressure at home. He continues to smoke about a half a pack a day but notes he is interested in quitting and is thinking about switching over to vaping instead. He denies any shortness of breath, lower extremity edema, orthopnea, or PND. Subjective PAST MEDICAL HISTORY Diagnosis Date Abdominal pain, other specified site Asthma Awareness under anesthesia CAD (coronary artery disease) Cholelithiasis 09/25/2013 Colitis Diabetes mellitus (HCC) type 2 diet controlled Elevated prostate specific antigen (PSA) Esophageal reflux Gastroesophageal reflux Hypertension Impotence of organic origin Impotence Nocturia SUJEY (obstructive sleep apnea) Post-void dribbling Prostate cancer (HCC) RUQ abdominal pain 09/25/2013 PAST SURGICAL HISTORY Procedure Laterality Date CABG (2) VEIN GRAFTS AND ARTERIAL GRAFT(S 10/16/2022 COLONOSCOPY FLX DX W/COLLJ SPEC WHEN PFRMD Colonoscopy Dr. Ferreira ESOPHAGOGASTRODUODENOSCOPY TRANSORAL DIAGNOSTIC EGD Dr. Ferreira LAPAROSCOPY SURG CHOLECYSTECTOMY 09/25/2013 PAST SURGICAL HISTORY OF IANDD left hand PAST SURGICAL HISTORY OF Removal cyst on back PROSTATE BIOPSY GUKI 07/14/2022 STENT PLACEMENT 4 Stents Social History Tobacco Use Smoking status: Every Day Current packs/day: 0.25 Average packs/day: 0.3 packs/day for 1 year (0.3 ttl pk-yrs) Types: Cigarettes Start date: 08/25/2023 Smokeless tobacco: Never Tobacco comments: Resumed last week after the of his spouse Vaping Use Vaping status: Never Used Substance Use Topics Alcohol use: Yes Comment: 1 beer in the evening occasionally Drug use: No FAMILY HISTORY Problem Relation Age of Onset Colon Cancer Mother Heart Mother Ovarian cancer Mother Prostate Cancer Brother Stroke Brother Emphysema Father ALLERGIES: ALLERGIES Allergen Reactions Gemfibrozil Intolerance Rosuvastatin Intolerance Simvastatin Intolerance Imdur [Isosorbide] Intolerance Headaches, upset stomach, fatigue Penicillins Intolerance passed out and felt like I had the flu Pt states he's no longer allergic to this, he's taken tests w/out issues. Pravastatin Myalgia MEDICATIONS: losartan (COZAAR) 100 mg tablet Take 1 tablet by mouth once daily. multivit-min/folic/vit K/lycop (MEN'S MULTIVITAMIN ORAL) Take by mouth. docosahexaenoic acid/epa (FISH OIL ORAL) Take by mouth. lansoprazole (PREVACID) 30 mg capsule Take 1 capsule by mouth daily before breakfast. 1/2 hr before meal. apixaban (ELIQUIS) 5 mg tab(s) Take 1 tablet by mouth two times a day. aspirin, enteric coated (ECOTRIN LOW STRENGTH) 81 mg EC tablet Take 1 tablet by mouth once daily. evolocumab (REPATHA SURECLICK) 140 mg/mL pen injector Inject 140 mg subcutaneously every 2 weeks. guaiFENesin (MUCINEX) 600 mg 12 hr tablet Take 1 tablet by mouth twice daily as needed for cold/allergy symptoms. loratadine (CLARITIN) 10 mg tablet Take 1 tablet by mouth once daily. nitroglycerin sublingual (NITROQ (more content not included)...[facility] NoteHNO ID: [id number] Author: MORIAH ARREAGA, DO Service: ? Author Type: Physician Type: Progress Notes Filed: 09/13/2024 17:15 Note Text: [facility] [place] DEPARTMENT OF VASCULAR SURGERY OUTPATIENT VISIT DATE August 15, 2024 OUTPATIENT VISIT TYPE CONSULTATION SERVICE DATE: 08/15/2024 SERVICE TIME: 3:44 PM PRIMARY CARE PHYSICIAN: Cali Cordero MD REFERRING PROVIDER: Gerri Curry [address] [facility] [id number] Consult requested for an opinion regarding the evaluation and treatment of the above. My final impression and recommendations will be communicated back to the requesting physician by way of the shared medical record or letter via US mail. CHIEF COMPLAINT: Small AAA HISTORY OF PRESENT ILLNESS: Vascular consultation at the request of Dr. Gerri Curry. A copy of this consultation note will be provided to the requesting physician by way of shared Medical record or letter to requesting physician via US mail. Mr. Wesley is a 74 year old male who is seen today for abdominal aortic aneurysm. He denies any complaints. Denies significant claudication. He was diagnosed with diverticulitis and on CT scan they found incidental small infrarenal AAA. No significant family history of aneurysmal disease PAST MEDICAL HISTORY Diagnosis Date Abdominal pain, other specified site Asthma Awareness under anesthesia CAD (coronary artery disease) Cholelithiasis 09/25/2013 Colitis Diabetes mellitus (HCC) type 2 diet controlled Elevated prostate specific antigen (PSA) Esophageal reflux Gastroesophageal reflux Hypertension Impotence of organic origin Impotence Nocturia SUJEY (obstructive sleep apnea) Post-void dribbling Prostate cancer (HCC) RUQ abdominal pain 09/25/2013 PAST SURGICAL HISTORY Procedure Laterality Date CABG (2) VEIN GRAFTS AND ARTERIAL GRAFT(S 10/16/2022 COLONOSCOPY FLX DX W/COLLJ SPEC WHEN PFRMD Colonoscopy Dr. Ferreira ESOPHAGOGASTRODUODENOSCOPY TRANSORAL DIAGNOSTIC EGD Dr. Ferreira LAPAROSCOPY SURG CHOLECYSTECTOMY 09/25/2013 PAST SURGICAL HISTORY OF IANDD left hand PAST SURGICAL HISTORY OF Removal cyst on back PROSTATE BIOPSY GUKI 07/14/2022 STENT PLACEMENT 4 Stents SOCIAL HISTORY: Social History Tobacco Use Smoking status: Every Day Current packs/day: 0.25 Average packs/day: 0.3 packs/day for 1 year (0.2 ttl pk-yrs) Types: Cigarettes Start date: 08/25/2023 Smokeless tobacco: Never Tobacco comments: Resumed last week after the of his spouse Vaping Use Vaping status: Never Used Substance Use Topics Alcohol use: Yes Comment: 1 beer in the evening occasionally Drug use: No FAMILY HISTORY Problem Relation Age of Onset Colon Cancer Mother Heart Mother Ovarian cancer Mother Prostate Cancer Brother Stroke Brother Emphysema Father MEDICATIONS: amoxicillin-clavulanate potassium (AUGMENTIN) 875-125 mg per tablet Take 875 mg by mouth three times a day. losartan (COZAAR) 100 mg tablet Take 1 tablet by mouth once daily. multivit-min/folic/vit K/lycop (MEN'S MULTIVITAMIN ORAL) Take by mouth. docosahexaenoic acid/epa (FISH OIL ORAL) Take by mouth. lansoprazole (PREVACID) 30 mg capsule Take 1 capsule by mouth daily before breakfast. 1/2 hr before meal. spironolactone (ALDACTONE) 25 mg tablet Take 1 tablet by mouth once daily. (Patient not taking: Reported on 07/12/2024) apixaban (ELIQUIS) 5 mg tab(s) Take 1 tablet by mouth two times a day. aspirin, enteric coated (ECOTRIN LOW STRENGTH) 81 mg EC tablet Take 1 tablet by mouth once daily. evolocumab (REPATHA SURECLICK) 140 mg/mL pen injector Inject 140 mg subcutaneously every 2 weeks. guaiFENesin (MUCINEX) 600 mg 12 hr tablet Take 1 tablet by mouth twice daily as needed for cold/allergy symptoms. loratadine (CLARITIN) 10 mg tablet Take 1 tablet by mouth once daily. nitroglycerin sublingual (NITROQUICK) 0.4 mg SL tablet Dissolve 0.4 mg under the tongue every 5 minutes as needed. ADVAIR DISKUS 500-50 mcg/dose dsdv INHALE 1 (ONE) puff EVERY 12 HOURS ALLERGIES: ALLERGIES Allergen Reactions Gemfibrozil Intolerance Rosuvastatin Intolerance Simvastatin Intolerance Imdur [Isosorbide] Intolerance Headaches, upset stomach, fatigue Penicillins Intolerance passed out and felt like I had the flu Pt states he's no longer allergic to this, he's taken tests w/out issues. Pravastatin Myalgia REVIEW of SYSTEM: Constitutional: No weight loss, malaise or fevers. HEENT: Negative for frequent or significant headaches, Negative for nasal discharge or nose bleeds, Eyes Positive for recent change in vision , Ears Positive for hearing loss Respiratory: Negative for shortness of breath and Positive for chronic cough Cardiovascular: Negative for chest pain and leg swelling and Positive for palpitations Gatrointestinal: Negative for blood in stools or black stools and change in bowel habit and Positive for (more content not included)...[facility]10-24-2024 Miscellaneous Notes* Telephone Encounter - Matilda Hannah LPN - 07/27/2024 10:08 AM EDT Patient notified of results, verbalizes understanding of instructions. Matilda Hannah LPN * Telephone Encounter - Gerri Curry APRN.TECHNICAL SUPPORT CONSULTANT - 07/27/2024 7:19 AM EDT Can you please call the patient and let him know that I reviewed his ultrasound of abdominal aorta,it showed a abdominal aortic aneurysm in the mid abdominal aorta. I would recommend a consult with vascular surgery for further evaluation. Consult has been placed, he may schedule anytime. Please let me know if he has any questions. Gerri Curry APRN.MANNY [facility] encounter Note * Telephone Encounter - Matilda Hannah LPN - 07/27/2024 10:08 AM EDT Patient notified of results, verbalizes understanding of instructions. Matilda Hannah LPN [facility]10-24-[facility] Telephone encounter Note* Telephone Encounter - Gerri Curry APRN.CNP - 07/27/2024 7:19 AM EDT Can you please call the patient and let him know that I reviewed his ultrasound of abdominal aorta,it showed a abdominal aortic aneurysm in the mid abdominal aorta. I would recommend a consult with vascular surgery for further evaluation. Consult has been placed, he may schedule anytime. Please let me know if he has any questions. Gerri Curry APRN.MANNY [facility]10-16-2024 Attending History and physical note* Debo Rodriguez MD - 07/19/2024 11:00 AM EDT UPDATED HISTORY AND PHYSICAL EXAMINATION SERVICE DATE: 07/19/2024 SERVICE TIME: 10:05 SENSITIVE EXAMINATION CONSENT: The sensitive examination was discussed with the Patient or Patient's Authorized Pumper Helper. Asapplicable, any other physician, advance practice provider, medical student, or other health professional student that will be observing or involved in the sensitive examination for educational or training purposes was discussed with the Patient or Authorized Pumper Helper. The Patient or Authorized Pumper Helper has agreed to proceed with the sensitive examination. (Sensitive examination includes inspection and/or palpation of the breasts, pelvis, prostate and anorectal regions) PHYSICAL EXAM MUST BE COMPLETED ON ADMISSION The History and Physical (completed in the past 30 days) has been reviewed and the patient has beenexamined. The contents accurately reflect the patient's condition with the following additions or revisions since the H&P was completed. Examination indicates no changes. This H&P can be found in the Electronic Medical Record . SIGNATURE: Debo Rodriguez MD PATIENT NAME: Denton Wesley DATE: July 19, 2024 TIME: 10:05 AM Source Note - Debo Rodriguez MD - 07/19/2024 11:00 AM EDT The patient wishes to undergo colonoscopy for screening for colonoscopy. He last had a colonoscopy 10 years ago The patient denies blood in stools, denies abdominal pain, and denies changes in bowel habits. The patient notes no colon cancer in immediate family. -however, his mother had ovarian cancer spread to colon in her 70s PAST MEDICAL HISTORY PAST MEDICAL HISTORY Diagnosis Date Abdominal pain, other specified site Asthma Awareness under anesthesia CAD (coronary artery disease) Cholelithiasis 09/25/2013 Colitis Diabetes mellitus (HCC) type 2 diet controlled Elevated prostate specific antigen (PSA) Esophageal reflux Gastroesophageal reflux Hypertension Impotence of organic origin Impotence Nocturia SUJEY (obstructive sleep apnea) Post-void dribbling Prostate cancer (HCC) RUQ abdominal pain 09/25/2013 PAST SURGICAL HISTORY PAST SURGICAL HISTORY Procedure Laterality Date CABG (2) VEIN GRAFTS & ARTERIAL GRAFT(S 10/16/2022 COLONOSCOPY FLX DX W/COLLJ SPEC WHEN PFRMD Colonoscopy Dr. Ferreira ESOPHAGOGASTRODUODENOSCOPY TRANSORAL DIAGNOSTIC EGD Dr. Ferreira LAPAROSCOPY SURG CHOLECYSTECTOMY 09/25/2013 PAST SURGICAL HISTORY OF I&D left hand PAST SURGICAL HISTORY OF Removal cyst on back PROSTATE BIOPSY GUKI 07/14/2022 STENT PLACEMENT 4 Stents FAMILY HISTORY FAMILY HISTORY Problem Relation Age of Onset Colon Cancer Mother Heart Mother Ovarian cancer Mother Prostate Cancer Brother Stroke Brother Emphysema Father SOCIAL HISTORY Social History Tobacco Use Smoking status: Every Day Current packs/day: 0.25 Average packs/day: 0.3 packs/day for 0.8 years (0.2 ttl pk-yrs) Types: Cigarettes Start date: 08/25/2023 Smokeless tobacco: Never Tobacco comments: Resumed last week after the of his spouse Vaping Use Vaping status: Never Used Substance Use Topics Alcohol use: Yes Comment: 1 beer in the evening occasionally Drug use: No CURRENT MEDICATIONS Current Outpatient Medications Medication Sig Dispense Refill losartan (COZAAR) 100 mg tablet Take 1 tablet by mouth once daily. 90 tablet 3 multivit-min/folic/vit K/lycop (MEN'S MULTIVITAMIN ORAL) Take by mouth. docosahexaenoic acid/epa (FISH OIL ORAL) Take by mouth. lansoprazole (PREVACID) 30 mg capsule Take 1 capsule by mouth daily before breakfast. 1/2 hr beforemeal. 30 capsule 11 spironolactone (ALDACTONE) 25 mg tablet Take 1 tablet by mouth once daily. 30 tablet 11 apixaban (ELIQUIS) 5 mg tab(s) Take 1 tablet by mouth two times a day. 60 tablet 11 aspirin, enteric coated (ECOTRIN LOW STRENGTH) 81 mg EC tablet Take 1 tablet by mouth once daily. evolocumab (REPATHA SURECLICK) 140 mg/mL pen injector Inject 140 mg subcutaneously every 2 weeks. 2Each 12 guaiFENesin (MUCINEX) 600 mg 12 hr tablet Take 1 tablet by mouth twice daily as needed for cold/allergy symptoms. loratadine (CLARITIN) 10 mg tablet Take 1 tablet by mouth once daily. nitroglycerin sublingual (NITROQUICK) 0.4 mg SL tablet Dissolve 0.4 mg under the tongue every 5 minutes as needed. ADVAIR DISKUS 500-50 mcg/dose dsdv INHALE 1 (ONE) puff EVERY 12 HOURS No current facility-administered medications for this visit. ALLERGIES ALLERGIES Allergen Reactions Gemfibrozil Intolerance Rosuvastatin Intolerance Simvastatin Intolerance Imdur [Isosorbide] Intolerance Headaches, upset stomach, fatigue Penicillins Intolerance passed out and felt like I had the flu Pt states he's no longer allergic to this, he's taken tests w/out issues. Pravastatin Myalgia REVIEW OF SYSTEMS: General - denies fevers, denies anorexia, denies weight loss Cardiovascular - denies chest pain, has history of ID, intermittent atrial fibrillation Pulmonary - denies shortness of breath, denies coughing up blood Gastrointestinal - denies abdominal pain, denies hematemesis, denies blood in stools Neurological - denies seizures, denies history of CVA Genitourinary - denies burning with urination, denies blood in urine Hematological - denies spontaneous/prolonged bleeding, denies history of blood transfusions/clots Skin - denies nonhealing skin wounds Musculoskeletal - no bone fractures Endocrine - denies diabetes, no thyroid problems Psychological - denies hallucinations PHYSICAL FINDINGS OF NOTE: Patient reported Ht: 5'11 Wt: 220# General - WD/WN in no apparent distress, alert and oriented Head - Normocephalic. EOM intact with sclera clear. Mouth with mucus membranes moist. Neck - supple with no jugular venous distention noted. Trachea is midline. Lungs - normal breath sounds, normal respiratory motion, no adventitial sounds noted. Heart - normal heart sounds. Regular rate. Abdomen - soft and benign. Extremities - no pitting edema noted. Skin - Normal skin integrity. Neurological - non focal Psych - calm and appropriate Impression: surveillance colonoscopy for history of colon polyps, Discussion/Plan/Recommendations: I have discussed the above with the patient. I have offered colonoscopy , possible biopsies I have explained the procedure to the patient. I have counseled the patient as to the risks of the procedure, including but not limited to: infection, bleeding, injury to any intrabdominal organs such as liver/spleen, perforation of the GI tract,inability to complete the procedure, complications of anesthesia, etc. - the patient understands. The patient wishes to proceed. I have answered all questions to the patient s satisfaction and the patient has no further questions. . [facility] History and physical note* Debo Rodriguez MD - 07/19/2024 11:00 AM EDT The patient wishes to undergo colonoscopy for screening for colonoscopy. He last had a colonoscopy 10 years ago The patient denies blood in stools, denies abdominal pain, and denies changes in bowel habits. The patient notes no colon cancer in immediate family. -however, his mother had ovarian cancer spread to colon in her 70s PAST MEDICAL HISTORY PAST MEDICAL HISTORY Diagnosis Date Abdominal pain, other specified site Asthma Awareness under anesthesia CAD (coronary artery disease) Cholelithiasis 09/25/2013 Colitis Diabetes mellitus (HCC) type 2 diet controlled Elevated prostate specific antigen (PSA) Esophageal reflux Gastroesophageal reflux Hypertension Impotence of organic origin Impotence Nocturia SUJEY (obstructive sleep apnea) Post-void dribbling Prostate cancer (HCC) RUQ abdominal pain 09/25/2013 PAST SURGICAL HISTORY PAST SURGICAL HISTORY Procedure Laterality Date CABG (2) VEIN GRAFTS & ARTERIAL GRAFT(S 10/16/2022 COLONOSCOPY FLX DX W/COLLJ SPEC WHEN PFRMD Colonoscopy Dr. Ferreira ESOPHAGOGASTRODUODENOSCOPY TRANSORAL DIAGNOSTIC EGD Dr. Ferreira LAPAROSCOPY SURG CHOLECYSTECTOMY 09/25/2013 PAST SURGICAL HISTORY OF I&D left hand PAST SURGICAL HISTORY OF Removal cyst on back PROSTATE BIOPSY GUKI 07/14/2022 STENT PLACEMENT 4 Stents FAMILY HISTORY FAMILY HISTORY Problem Relation Age of Onset Colon Cancer Mother Heart Mother Ovarian cancer Mother Prostate Cancer Brother Stroke Brother Emphysema Father SOCIAL HISTORY Social History Tobacco Use Smoking status: Every Day Current packs/day: 0.25 Average packs/day: 0.3 packs/day for 0.8 years (0.2 ttl pk-yrs) Types: Cigarettes Start date: 08/25/2023 Smokeless tobacco: Never Tobacco comments: Resumed last week after the of his spouse Vaping Use Vaping status: Never Used Substance Use Topics Alcohol use: Yes Comment: 1 beer in the evening occasionally Drug use: No CURRENT MEDICATIONS Current Outpatient Medications Medication Sig Dispense Refill losartan (COZAAR) 100 mg tablet Take 1 tablet by mouth once daily. 90 tablet 3 multivit-min/folic/vit K/lycop (MEN'S MULTIVITAMIN ORAL) Take by mouth. docosahexaenoic acid/epa (FISH OIL ORAL) Take by mouth. lansoprazole (PREVACID) 30 mg capsule Take 1 capsule by mouth daily before breakfast. 1/2 hr beforemeal. 30 capsule 11 spironolactone (ALDACTONE) 25 mg tablet Take 1 tablet by mouth once daily. 30 tablet 11 apixaban (ELIQUIS) 5 mg tab(s) Take 1 tablet by mouth two times a day. 60 tablet 11 aspirin, enteric coated (ECOTRIN LOW STRENGTH) 81 mg EC tablet Take 1 tablet by mouth once daily. evolocumab (REPATHA SURECLICK) 140 mg/mL pen injector Inject 140 mg subcutaneously every 2 weeks. 2Each 12 guaiFENesin (MUCINEX) 600 mg 12 hr tablet Take 1 tablet by mouth twice daily as needed for cold/allergy symptoms. loratadine (CLARITIN) 10 mg tablet Take 1 tablet by mouth once daily. nitroglycerin sublingual (NITROQUICK) 0.4 mg SL tablet Dissolve 0.4 mg under the tongue every 5 minutes as needed. ADVAIR DISKUS 500-50 mcg/dose dsdv INHALE 1 (ONE) puff EVERY 12 HOURS No current facility-administered medications for this visit. ALLERGIES ALLERGIES Allergen Reactions Gemfibrozil Intolerance Rosuvastatin Intolerance Simvastatin Intolerance Imdur [Isosorbide] Intolerance Headaches, upset stomach, fatigue Penicillins Intolerance passed out and felt like I had the flu Pt states he's no longer allergic to this, he's taken tests w/out issues. Pravastatin Myalgia REVIEW OF SYSTEMS: General - denies fevers, denies anorexia, denies weight loss Cardiovascular - denies chest pain, has history of ID, intermittent atrial fibrillation Pulmonary - denies shortness of breath, denies coughing up blood Gastrointestinal - denies abdominal pain, denies hematemesis, denies blood in stools Neurological - denies seizures, denies history of CVA Genitourinary - denies burning with urination, denies blood in urine Hematological - denies spontaneous/prolonged bleeding, denies history of blood transfusions/clots Skin - denies nonhealing skin wounds Musculoskeletal - no bone fractures Endocrine - denies diabetes, no thyroid problems Psychological - denies hallucinations PHYSICAL FINDINGS OF NOTE: Patient reported Ht: 5'11 Wt: 220# General - WD/WN in no apparent distress, alert and oriented Head - Normocephalic. EOM intact with sclera clear. Mouth with mucus membranes moist. Neck - supple with no jugular venous distention noted. Trachea is midline. Lungs - normal breath sounds, normal respiratory motion, no adventitial sounds noted. Heart - normal heart sounds. Regular rate. Abdomen - soft and benign. Extremities - no pitting edema noted. Skin - Normal skin integrity. Neurological - non focal Psych - calm and appropriate Impression: surveillance colonoscopy for history of colon polyps, Discussion/Plan/Recommendations: I have discussed the above with the patient. I have offered colonoscopy , possible biopsies I have explained the procedure to the patient. I have counseled the patient as to the risks of the procedure, including but not limited to: infection, bleeding, injury to any intrabdominal organs such as liver/spleen, perforation of the GI tract,inability to complete the procedure, complications of anesthesia, etc. - the patient understands. The patient wishes to proceed. I have answered all questions to the patient s satisfaction and the patient has no further questions. . [facility] History and physical note* Debo Rodriguez MD - 07/19/2024 11:00 AM EDT UPDATED HISTORY AND PHYSICAL EXAMINATION SERVICE DATE: 07/19/2024 SERVICE TIME: 10:05 SENSITIVE EXAMINATION CONSENT: The sensitive examination was discussed with the Patient or Patient's Authorized Pumper Helper. Asapplicable, any other physician, advance practice provider, medical student, or other health professional student that will be observing or involved in the sensitive examination for educational or training purposes was discussed with the Patient or Authorized Pumper Helper. The Patient or Authorized Pumper Helper has agreed to proceed with the sensitive examination. (Sensitive examination includes inspection and/or palpation of the breasts, pelvis, prostate and anorectal regions) PHYSICAL EXAM MUST BE COMPLETED ON ADMISSION The History and Physical (completed in the past 30 days) has been reviewed and the patient has beenexamined. The contents accurately reflect the patient's condition with the following additions or revisions since the H&P was completed. Examination indicates no changes. This H&P can be found in the Electronic Medical Record . SIGNATURE: Debo Rodriguez MD PATIENT NAME: Denton Wesley DATE: July 19, 2024 TIME: 10:05 AM Source Note - Debo Rodriguez MD - 07/19/2024 11:00 AM EDT The patient wishes to undergo colonoscopy for screening for colonoscopy. He last had a colonoscopy 10 years ago The patient denies blood in stools, denies abdominal pain, and denies changes in bowel habits. The patient notes no colon cancer in immediate family. -however, his mother had ovarian cancer spread to colon in her 70s PAST MEDICAL HISTORY PAST MEDICAL HISTORY Diagnosis Date Abdominal pain, other specified site Asthma Awareness under anesthesia CAD (coronary artery disease) Cholelithiasis 09/25/2013 Colitis Diabetes mellitus (HCC) type 2 diet controlled Elevated prostate specific antigen (PSA) Esophageal reflux Gastroesophageal reflux Hypertension Impotence of organic origin Impotence Nocturia SUJEY (obstructive sleep apnea) Post-void dribbling Prostate cancer (HCC) RUQ abdominal pain 09/25/2013 PAST SURGICAL HISTORY PAST SURGICAL HISTORY Procedure Laterality Date CABG (2) VEIN GRAFTS & ARTERIAL GRAFT(S 10/16/2022 COLONOSCOPY FLX DX W/COLLJ SPEC WHEN PFRMD Colonoscopy Dr. Ferreira ESOPHAGOGASTRODUODENOSCOPY TRANSORAL DIAGNOSTIC EGD Dr. Ferreira LAPAROSCOPY SURG CHOLECYSTECTOMY 09/25/2013 PAST SURGICAL HISTORY OF I&D left hand PAST SURGICAL HISTORY OF Removal cyst on back PROSTATE BIOPSY GUKI 07/14/2022 STENT PLACEMENT 4 Stents FAMILY HISTORY FAMILY HISTORY Problem Relation Age of Onset Colon Cancer Mother Heart Mother Ovarian cancer Mother Prostate Cancer Brother Stroke Brother Emphysema Father SOCIAL HISTORY Social History Tobacco Use Smoking status: Every Day Current packs/day: 0.25 Average packs/day: 0.3 packs/day for 0.8 years (0.2 ttl pk-yrs) Types: Cigarettes Start date: 08/25/2023 Smokeless tobacco: Never Tobacco comments: Resumed last week after the of his spouse Vaping Use Vaping status: Never Used Substance Use Topics Alcohol use: Yes Comment: 1 beer in the evening occasionally Drug use: No CURRENT MEDICATIONS Current Outpatient Medications Medication Sig Dispense Refill losartan (COZAAR) 100 mg tablet Take 1 tablet by mouth once daily. 90 tablet 3 multivit-min/folic/vit K/lycop (MEN'S MULTIVITAMIN ORAL) Take by mouth. docosahexaenoic acid/epa (FISH OIL ORAL) Take by mouth. lansoprazole (PREVACID) 30 mg capsule Take 1 capsule by mouth daily before breakfast. 1/2 hr beforemeal. 30 capsule 11 spironolactone (ALDACTONE) 25 mg tablet Take 1 tablet by mouth once daily. 30 tablet 11 apixaban (ELIQUIS) 5 mg tab(s) Take 1 tablet by mouth two times a day. 60 tablet 11 aspirin, enteric coated (ECOTRIN LOW STRENGTH) 81 mg EC tablet Take 1 tablet by mouth once daily. evolocumab (REPATHA SURECLICK) 140 mg/mL pen injector Inject 140 mg subcutaneously every 2 weeks. 2Each 12 guaiFENesin (MUCINEX) 600 mg 12 hr tablet Take 1 tablet by mouth twice daily as needed for cold/allergy symptoms. loratadine (CLARITIN) 10 mg tablet Take 1 tablet by mouth once daily. nitroglycerin sublingual (NITROQUICK) 0.4 mg SL tablet Dissolve 0.4 mg under the tongue every 5 minutes as needed. ADVAIR DISKUS 500-50 mcg/dose dsdv INHALE 1 (ONE) puff EVERY 12 HOURS No current facility-administered medications for this visit. ALLERGIES ALLERGIES Allergen Reactions Gemfibrozil Intolerance Rosuvastatin Intolerance Simvastatin Intolerance Imdur [Isosorbide] Intolerance Headaches, upset stomach, fatigue Penicillins Intolerance passed out and felt like I had the flu Pt states he's no longer allergic to this, he's taken tests w/out issues. Pravastatin Myalgia REVIEW OF SYSTEMS: General - denies fevers, denies anorexia, denies weight loss Cardiovascular - denies chest pain, has history of ID, intermittent atrial fibrillation Pulmonary - denies shortness of breath, denies coughing up blood Gastrointestinal - denies abdominal pain, denies hematemesis, denies blood in stools Neurological - denies seizures, denies history of CVA Genitourinary - denies burning with urination, denies blood in urine Hematological - denies spontaneous/prolonged bleeding, denies history of blood transfusions/clots Skin - denies nonhealing skin wounds Musculoskeletal - no bone fractures Endocrine - denies diabetes, no thyroid problems Psychological - denies hallucinations PHYSICAL FINDINGS OF NOTE: Patient reported Ht: 5'11 Wt: 220# General - WD/WN in no apparent distress, alert and oriented Head - Normocephalic. EOM intact with sclera clear. Mouth with mucus membranes moist. Neck - supple with no jugular venous distention noted. Trachea is midline. Lungs - normal breath sounds, normal respiratory motion, no adventitial sounds noted. Heart - normal heart sounds. Regular rate. Abdomen - soft and benign. Extremities - no pitting edema noted. Skin - Normal skin integrity. Neurological - non focal Psych - calm and appropriate Impression: surveillance colonoscopy for history of colon polyps, Discussion/Plan/Recommendations: I have discussed the above with the patient. I have offered colonoscopy , possible biopsies I have explained the procedure to the patient. I have counseled the patient as to the risks of the procedure, including but not limited to: infection, bleeding, injury to any intrabdominal organs such as liver/spleen, perforation of the GI tract,inability to complete the procedure, complications of anesthesia, etc. - the patient understands. The patient wishes to proceed. I have answered all questions to the patient s satisfaction and the patient has no further questions. . * Debo Rodriguez MD - 07/19/2024 11:00 AM EDT The patient wishes to undergo colonoscopy for screening for colonoscopy. He last had a colonoscopy 10 years ago The patient denies blood in stools, denies abdominal pain, and denies changes in bowel habits. The patient notes no colon cancer in immediate family. -however, his mother had ovarian cancer spread to colon in her 70s PAST MEDICAL HISTORY PAST MEDICAL HISTORY Diagnosis Date Abdominal pain, other specified site Asthma Awareness under anesthesia CAD (coronary artery disease) Cholelithiasis 09/25/2013 Colitis Diabetes mellitus (HCC) type 2 diet controlled Elevated prostate specific antigen (PSA) Esophageal reflux Gastroesophageal reflux Hypertension Impotence of organic origin Impotence Nocturia SUJEY (obstructive sleep apnea) Post-void dribbling Prostate cancer (HCC) RUQ abdominal pain 09/25/2013 PAST SURGICAL HISTORY PAST SURGICAL HISTORY Procedure Laterality Date CABG (2) VEIN GRAFTS & ARTERIAL GRAFT(S 10/16/2022 COLONOSCOPY FLX DX W/COLLJ SPEC WHEN PFRMD Colonoscopy Dr. Ferreira ESOPHAGOGASTRODUODENOSCOPY TRANSORAL DIAGNOSTIC EGD Dr. Ferreira LAPAROSCOPY SURG CHOLECYSTECTOMY 09/25/2013 PAST SURGICAL HISTORY OF I&D left hand PAST SURGICAL HISTORY OF Removal cyst on back PROSTATE BIOPSY GUKI 07/14/2022 STENT PLACEMENT 4 Stents FAMILY HISTORY FAMILY HISTORY Problem Relation Age of Onset Colon Cancer Mother Heart Mother Ovarian cancer Mother Prostate Cancer Brother Stroke Brother Emphysema Father SOCIAL HISTORY Social History Tobacco Use Smoking status: Every Day Current packs/day: 0.25 Average packs/day: 0.3 packs/day for 0.8 years (0.2 ttl pk-yrs) Types: Cigarettes Start date: 08/25/2023 Smokeless tobacco: Never Tobacco comments: Resumed last week after the of his spouse Vaping Use Vaping status: Never Used Substance Use Topics Alcohol use: Yes Comment: 1 beer in the evening occasionally Drug use: No CURRENT MEDICATIONS Current Outpatient Medications Medication Sig Dispense Refill losartan (COZAAR) 100 mg tablet Take 1 tablet by mouth once daily. 90 tablet 3 multivit-min/folic/vit K/lycop (MEN'S MULTIVITAMIN ORAL) Take by mouth. docosahexaenoic acid/epa (FISH OIL ORAL) Take by mouth. lansoprazole (PREVACID) 30 mg capsule Take 1 capsule by mouth daily before breakfast. 1/2 hr beforemeal. 30 capsule 11 spironolactone (ALDACTONE) 25 mg tablet Take 1 tablet by mouth once daily. 30 tablet 11 apixaban (ELIQUIS) 5 mg tab(s) Take 1 tablet by mouth two times a day. 60 tablet 11 aspirin, enteric coated (ECOTRIN LOW STRENGTH) 81 mg EC tablet Take 1 tablet by mouth once daily. evolocumab (REPATHA SURECLICK) 140 mg/mL pen injector Inject 140 mg subcutaneously every 2 weeks. 2Each 12 guaiFENesin (MUCINEX) 600 mg 12 hr tablet Take 1 tablet by mouth twice daily as needed for cold/allergy symptoms. loratadine (CLARITIN) 10 mg tablet Take 1 tablet by mouth once daily. nitroglycerin sublingual (NITROQUICK) 0.4 mg SL tablet Dissolve 0.4 mg under the tongue every 5 minutes as needed. ADVAIR DISKUS 500-50 mcg/dose dsdv INHALE 1 (ONE) puff EVERY 12 HOURS No current facility-administered medications for this visit. ALLERGIES ALLERGIES Allergen Reactions Gemfibrozil Intolerance Rosuvastatin Intolerance Simvastatin Intolerance Imdur [Isosorbide] Intolerance Headaches, upset stomach, fatigue Penicillins Intolerance passed out and felt like I had the flu Pt states he's no longer allergic to this, he's taken tests w/out issues. Pravastatin Myalgia REVIEW OF SYSTEMS: General - denies fevers, denies anorexia, denies weight loss Cardiovascular - denies chest pain, has history of ID, intermittent atrial fibrillation Pulmonary - denies shortness of breath, denies coughing up blood Gastrointestinal - denies abdominal pain, denies hematemesis, denies blood in stools Neurological - denies seizures, denies history of CVA Genitourinary - denies burning with urination, denies blood in urine Hematological - denies spontaneous/prolonged bleeding, denies history of blood transfusions/clots Skin - denies nonhealing skin wounds Musculoskeletal - no bone fractures Endocrine - denies diabetes, no thyroid problems Psychological - denies hallucinations PHYSICAL FINDINGS OF NOTE: Patient reported Ht: 5'11 Wt: 220# General - WD/WN in no apparent distress, alert and oriented Head - Normocephalic. EOM intact with sclera clear. Mouth with mucus membranes moist. Neck - supple with no jugular venous distention noted. Trachea is midline. Lungs - normal breath sounds, normal respiratory motion, no adventitial sounds noted. Heart - normal heart sounds. Regular rate. Abdomen - soft and benign. Extremities - no pitting edema noted. Skin - Normal skin integrity. Neurological - non focal Psych - calm and appropriate Impression: surveillance colonoscopy for history of colon polyps, Discussion/Plan/Recommendations: I have discussed the above with the patient. I have offered colonoscopy , possible biopsies I have explained the procedure to the patient. I have counseled the patient as to the risks of the procedure, including but not limited to: infection, bleeding, injury to any intrabdominal organs such as liver/spleen, perforation of the GI tract,inability to complete the procedure, complications of anesthesia, etc. - the patient understands. The patient wishes to proceed. I have answered all questions to the patient s satisfaction and the patient has no further questions. . [facility] Instructions* Patient Instructions* Gerri Curry APRN.TECHNICAL SUPPORT CONSULTANT - 07/12/2024 1:38 PM EDT Continue to take antibiotic until gone May eat a bland diet and advance as tolerated Keep up coming appointment for colonoscopy Due to AAA, get ultrasound completed Consult placed for vascular surgery Follow up as scheduled What are diverticulosis and diverticulitis? Many people have small pouches in their colons that bulge outward through weak spots, like an innertube that pokes through weak places in a tire. Each pouch is called a diverticulum. Pouches (plural) are called diverticula. The condition of having diverticula is called diverticulosis. About 10 percent of Americans over the age of 40 have diverticulosis. The condition becomes more common as people age. About half of all people over the age of 60 have diverticulosis. When the pouches become infected or inflamed, the condition is called diverticulitis. This happens in 10 to 25 percent of people with diverticulosis. Diverticulosis and diverticulitis are also calleddiverticular disease. What are the symptoms? Diverticulosis Most people with diverticulosis do not have any discomfort or symptoms. However, symptoms may include mild cramps, bloating, and constipation. Other diseases such as irritable bowel syndrome (IBS) and stomach ulcers cause similar problems, so these symptoms do not always mean a person has diverticulosis. You should visit your doctor if you have these troubling symptoms. Diverticulitis The most common symptom of diverticulitis is abdominal pain. The most common sign is tenderness around the left side of the lower abdomen. If infection is the cause, fever, nausea, vomiting, chills, cramping, and constipation may occur as well. The severity of symptoms depends on the extent of the infection and complications. What are the complications? Diverticulitis can lead to bleeding, infections, perforations or tears, or blockages. These complications always require treatment to prevent them from progressing and causing serious illness. Bleeding Bleeding from diverticula is a rare complication. When diverticula bleed, blood may appear in the toilet or in your stool. Bleeding can be severe, but it may stop by itself and not require treatment.Doctors believe bleeding diverticula are caused by a small blood vessel in a diverticulum that weakens and finally bursts. If you have bleeding from the rectum, you should see your doctor. If the bleeding does not stop, surgery may be necessary. Abscess, Perforation, and Peritonitis The infection causing diverticulitis often clears up after a few days of treatment with antibiotics. If the condition gets worse, an abscess may form in the colon. An abscess is an infected area with pus that may cause swelling and destroy tissue. Sometimes the infected diverticula may develop small holes, called perforations. These perforations allow pus to leak out of the colon into the abdominal area. If the abscess is small and remains in the colon, it may clear up after treatment with antibiotics. If the abscess does not clear up with antibiotics, the doctor may need to drain it. To drain the abscess, the doctor uses a needle and a small tube called a catheter. The doctor inserts the needle through the skin and drains the fluid through the catheter. This procedure is called percutaneous catheter drainage. Sometimes surgery is needed to clean the abscess and, if necessary, remove part of the colon. A large abscess can become a serious problem if the infection leaks out and contaminates areas outside the colon. Infection that spreads into the abdominal cavity is called peritonitis. Peritonitis requires immediate surgery to clean the abdominal cavity and remove the damaged part of the colon. Without surgery, peritonitis can be fatal. Fistula A fistula is an abnormal connection of tissue between two organs or between an organ and the skin. When damaged tissues come into contact with each other during infection, they sometimes stick together. If they heal that way, a fistula forms. When diverticulitis-related infection spreads outside the colon, the colon's tissue may stick to nearby tissues. The organs usually involved are the bladder, small intestine, and skin. The most common type of fistula occurs between the bladder and the colon. It affects men more than women. This type of fistula can result in a severe, long- lasting infection of the urinary tract. Theproblem can be corrected with surgery to remove the fistula and the affected part of the colon. Intestinal Obstruction The scarring caused by infection may cause partial or total blockage of the large intestine. When this happens, the colon is unable to move bowel contents normally. When the obstruction totally blocks the intestine, emergency surgery is necessary. Partial blockage is not an emergency, so the surgery to correct it can be planned. What causes diverticular disease? Although not proven, the dominant theory is that a low-fiber diet is the main cause of diverticulardisease. The disease was first noticed in the [place] in the early 1900s. At about the same time, processed foods were introduced into the [place] diet. Many processed foods contain refined, low-fiber flour. Unlike whole-wheat flour, refined flour has no wheat bran. Diverticular disease is common in developed or industrialized countries--particularly the [place], [place], and [place]--where low- fiber diets are common. The disease is rare in countries of [place], where people eat high-fiber vegetable diets. Fiber is the part of fruits, vegetables, and grains that the body cannot digest. Some fiber dissolves easily in water (soluble fiber). It takes on a soft, jelly-like texture in the intestines. Some fiber passes almost unchanged through the intestines (insoluble fiber). Both kinds of fiber help makestools soft and easy to pass. Fiber also prevents constipation. Constipation makes the muscles strain to move stool that is too hard. It is the main cause of increased pressure in the colon. This excess pressure might cause the weak spots in the colon to bulge out and become diverticula. Diverticulitis occurs when diverticula become infected or inflamed. Doctors are not certain what causes the infection. It may begin when stool or bacteria are caught in the diverticula. An attack of diverticulitis can develop suddenly and without warning. How does the doctor diagnose diverticular disease? To diagnose diverticular disease, the doctor asks about medical history, does a physical exam, and may perform one or more diagnostic tests. Because most people do not have symptoms, diverticulosis is often found through tests ordered for another ailment. When taking a medical history, the doctor may ask about bowel habits, symptoms, pain, diet, and medications. The physical exam usually involves a digital rectal exam. To perform this test, the doctorinserts a gloved, lubricated finger into the rectum to detect tenderness, blockage, or blood. The doctor may check stool for signs of bleeding and test blood for signs of infection. The doctor may also order x rays or other tests. What is the treatment for diverticular disease? A high-fiber diet and, occasionally, mild pain medications will help relieve symptoms in most cases. Sometimes an attack of diverticulitis is serious enough to require a hospital stay and possibly surgery. Diverticulosis Increasing the amount of fiber in the diet may reduce symptoms of diverticulosis and prevent complications such as diverticulitis. Fiber keeps stool soft and lowers pressure inside the colon so that bowel contents can move through easily. The [place] Dietetic Association recommends 20 to 35 grams of fiber each day. The table below shows the amount of fiber in some foods that you can easily add to your diet. Amount of Fiber in Some Foods Fruits Apple, raw, with skin 1 medium = 3.3 grams Lea, raw 1 medium = 1.5 grams Pear, raw 1 medium = 5.1 grams [place], raw 1 medium = 1.9 grams Vegetables Asparagus, fresh, cooked 4 [place] = 1.2 grams Broccoli, fresh, cooked 1/2 cup = 2.6 grams [place] sprouts, fresh, cooked 1/2 cup = 2 grams Cabbage, fresh, cooked 1/2 cup = 1.5 grams Carrot, fresh, cooked 1/2 cup = 2.3 grams Cauliflower, fresh, cooked 1/2 cup = 1.7 grams [place] lettuce 1 cup = 1.2 grams Spinach, fresh, cooked 1/2 cup = 2.2 grams Summer squash, cooked 1 cup = 2.5 grams Tomato, raw 1 = 1 gram Winter squash, cooked 1 cup = 5.7 grams Starchy Vegetables Baked beans, canned, plain 1/2 cup = 6.3 grams Kidney beans, fresh, cooked 1/2 cup = 5.7 grams Acevedo beans, fresh, cooked 1/2 cup = 6.6 grams Potato, fresh, cooked 1 = 2.3 grams Grains Bread, whole-wheat 1 slice = 1.9 grams Brown rice, cooked 1 cup = 3.5 grams Cereal, bran flake 3/4 cup = 5.3 grams Oatmeal, plain, cooked 3/4 cup = 3 grams White rice, cooked 1 cup = 0.6 grams Source: [place] Department of Agriculture (USDA). USDA Nutrient Database for Standard Reference Release 15. Available at www.nal.usda.gov/fnic/cgi- bin/nut_search.pl. Accessed January 07, 2004. The doctor may also recommend taking a fiber product such as Citrucel or Metamucil once a day. These products are mixed with water and provide about 2 to 3.5 grams of fiber per tablespoon, mixed with8 ounces of water. Avoidance of nuts, popcorn, and sunflower, pumpkin, rona, and sesame seeds has been recommended by physicians out of fear that food particles could enter, block, or irritate the diverticula. However, no scientific data support this treatment measure. Eating a high-fiber diet is the only requirement highly emphasized across the literature and eliminating specific foods is not necessary. The seeds in tomatoes, zucchini, cucumbers, strawberries, and raspberries, as well as poppy seeds, are generally considered harmless. People differ in the amounts and types of foods they can eat. Decisions about diet should be made based on what works best for each person. Keeping a food diary may help identify individual items in one's diet. If cramps, bloating, and constipation are problems, the doctor may prescribe a short course of painmedication. However, many medications affect emptying of the colon, an undesirable side effect for people with diverticulosis. Diverticulitis Treatment for diverticulitis focuses on clearing up the infection and inflammation, resting the colon, and preventing or minimizing complications. An attack of diverticulitis without complications may respond to antibiotics within a few days if treated early. To help the colon rest, the doctor may recommend bed rest and a liquid diet, along with a pain reliever. An acute attack with severe pain or severe infection may require a hospital stay. Most acute cases of diverticulitis are treated with antibiotics and a liquid diet. The antibiotics are given by injection into a vein. In some cases, however, surgery may be necessary. When is surgery necessary? If attacks are severe or frequent, the doctor may advise surgery. The surgeon removes the affected part of the colon and joins the remaining sections. This type of surgery, called colon resection, aims to keep attacks from coming back and to prevent complications. The doctor may also recommend surgery for complications of a fistula or intestinal obstruction. If antibiotics do not correct an attack, emergency surgery may be required. Other reasons for emergency surgery include a large abscess, perforation, peritonitis, or continued bleeding. Emergency surgery usually involves two operations. The first surgery will clear the infected abdominal cavity and remove part of the colon. Because of infection and sometimes obstruction, it is not safe to rejoin the colon during the first operation. Instead, the surgeon creates a temporary hole, or stoma, in the abdomen. The end of the colon is connected to the hole, a procedure called a colostomy, to allow normal eating and bowel movements. The stool goes into a bag attached to the opening inthe abdomen. In the second operation, the surgeon rejoins the ends of the colon. Points to Remember Diverticulosis occurs when small pouches, called diverticula, bulge outward through weak spots in the colon (large intestine). The pouches form when pressure inside the colon builds, usually because of constipation. Most people with diverticulosis never have any discomfort or symptoms. The most likely cause of diverticulosis is a low-fiber diet because it increases constipation and pressure inside the colon. For most people with diverticulosis, eating a high-fiber diet is the only treatment needed. You can increase your fiber intake by eating these foods: whole grain breads and cereals; fruit like apples and peaches; vegetables like broccoli, cabbage, spinach, carrots, asparagus, and squash; and starchy vegetables like kidney beans and acevedo beans. Diverticulitis occurs when the pouches become infected or inflamed and cause pain and tenderness around the left side of the lower abdomen. Additional Readings Diverticular disease. In: Chavo ML, Nikia SI, Rene ALFREDA. Handbook of Colon and Rectal Surgery. [place]: [place] Wilson & Fuentes; 2002: [phone]. Diverticular disease. In: King STEPHEN ed. [facility] on Digestive Health. [place], [place]: [facility];2000: 125-132. Irvin INGRAM. Understanding diverticular disease. Ostomy Quarterly. 2002;39(2):56-57. For More Information International [employer] for Functional Gastrointestinal [employer] [address] [place] [address] Phone: or [phone] Email: Internet: www.ifd.org The U.S. Government does not endorse or favor any specific commercial product or company. Trade, proprietary, or company names appearing in this document are used only because they are considered necessary in the context of the information provided. If a product is not mentioned, the omission does not mean or imply that the product is unsatisfactory. National Digestive Diseases Information Clearinghouse [address] [place] [address] Phone: Email: Internet: www.digestive.niddk.nih.gov The National Digestive Diseases Information Clearinghouse (NDDIC) is a service of the National [place] of Diabetes and Digestive and Kidney Diseases (NIDDK). The NIDDK is part of the National Institutes of Health of the U.S. Department of Health and Human Services. Established in 1979, the Clearinghouse provides information about digestive diseases to people with digestive disorders and to their families, health home health care case manager, and the public. The NDDIC answers inquiries, develops and distributes publications, and works closely with professional and patient organizations and Government agencies to coordinate resources about digestive diseases. Publications produced by the Clearinghouse are carefully reviewed by both NIDDK scientists and outside experts. This publication is not copyrighted. The Clearinghouse encourages users of this publication to duplicate and distribute as many copies as desired. [facility] Publication No. [id number] July 2006 [facility] History of Present illness Narrative* Gerri Curry APRN.MANNY - 07/12/2024 1:20 PM EDT This is a 74 year old male who presents today with: Patient presents with: Follow Up: ER follow up HISTORY OF PRESENT ILLNESS: Denton Wesley is a 74 year old male. Patient presents with: Follow Up: ER follow up HOSPITAL/ER FOLLOW UP: Reason for visit: Nausea, abdominal pain, and loose stools. Which facility: [facility] Date of visit: 07/01/2024 Diagnosis: Diverticulitis, AAA Testing done: CBC showed mild anemia, no leukocytosis. Renal function was normal as well as lipase.Urinalysis showed no signs of infection. CT abdomen pelvis showed mild diverticulitis without any complication. He also has a AAA noted to be 3.4 cm. Treatment given: Prescription given for Augmentin 1 tablet, 3 times daily for 10 days. Also gave prescription for Bentyl. Current symptoms: Missed a couple of doses of Augmentin, refers he has 2 more days of antibiotic. Symptoms have improved. No diarrhea but has had some constipation. Last BM on Wednesday. Using stool softeners. Has colonoscopy next week. No fever or chills. Taking Repatha, following with cardiology. PAST MEDICAL HISTORY: PAST MEDICAL HISTORY Diagnosis Date Abdominal pain, other specified site Asthma Awareness under anesthesia CAD (coronary artery disease) Cholelithiasis 09/25/2013 Colitis Diabetes mellitus (HCC) type 2 diet controlled Elevated prostate specific antigen (PSA) Esophageal reflux Gastroesophageal reflux Hypertension Impotence of organic origin Impotence Nocturia SUJEY (obstructive sleep apnea) Post-void dribbling Prostate cancer (HCC) RUQ abdominal pain 09/25/2013 PAST SURGICAL HISTORY Procedure Laterality Date CABG (2) VEIN GRAFTS & ARTERIAL GRAFT(S 10/16/2022 COLONOSCOPY FLX DX W/COLLJ SPEC WHEN PFRMD Colonoscopy Dr. Ferreira ESOPHAGOGASTRODUODENOSCOPY TRANSORAL DIAGNOSTIC EGD Dr. Ferreira LAPAROSCOPY SURG CHOLECYSTECTOMY 09/25/2013 PAST SURGICAL HISTORY OF I&D left hand PAST SURGICAL HISTORY OF Removal cyst on back PROSTATE BIOPSY DAVIDKI 07/14/2022 STENT PLACEMENT 4 Stents ALLERGIES Gemfibrozil, Rosuvastatin, Simvastatin, Imdur [Isosorbide], Penicillins, and Pravastatin MEDICATIONS Current Outpatient Medications Medication Sig losartan (COZAAR) 100 mg tablet Take 1 tablet by mouth once daily. multivit-min/folic/vit K/lycop (MEN'S MULTIVITAMIN ORAL) Take by mouth. docosahexaenoic acid/epa (FISH OIL ORAL) Take by mouth. lansoprazole (PREVACID) 30 mg capsule Take 1 capsule by mouth daily before breakfast. 1/2 hr beforemeal. spironolactone (ALDACTONE) 25 mg tablet Take 1 tablet by mouth once daily. apixaban (ELIQUIS) 5 mg tab(s) Take 1 tablet by mouth two times a day. aspirin, enteric coated (ECOTRIN LOW STRENGTH) 81 mg EC tablet Take 1 tablet by mouth once daily. evolocumab (REPATHA SURECLICK) 140 mg/mL pen injector Inject 140 mg subcutaneously every 2 weeks. guaiFENesin (MUCINEX) 600 mg 12 hr tablet Take 1 tablet by mouth twice daily as needed for cold/allergy symptoms. loratadine (CLARITIN) 10 mg tablet Take 1 tablet by mouth once daily. nitroglycerin sublingual (NITROQUICK) 0.4 mg SL tablet Dissolve 0.4 mg under the tongue every 5 minutes as needed. ADVAIR DISKUS 500-50 mcg/dose dsdv INHALE 1 (ONE) puff EVERY 12 HOURS No current facility-administered medications for this visit. FAMILY HISTORY Problem Relation Age of Onset Colon Cancer Mother Heart Mother Ovarian cancer Mother Prostate Cancer Brother Stroke Brother Emphysema Father Social History Tobacco Use Smoking status: Every Day Current packs/day: 0.25 Average packs/day: 0.3 packs/day for 0.9 years (0.2 ttl pk-yrs) Types: Cigarettes Start date: 08/25/2023 Smokeless tobacco: Never Tobacco comments: Resumed last week after the of his spouse Vaping Use Vaping status: Never Used Substance Use Topics Alcohol use: Yes Comment: 1 beer in the evening occasionally Drug use: No REVIEW OF SYSTEMS GENERAL: No weight loss, malaise or fevers/chills HEENT: Negative for frequent or significant headaches, No changes in hearing or vision. NECK: Negative for lumps, goiter, pain and significant neck swelling RESPIRATORY: Negative for cough, hemoptysis, wheezing, dyspnea or shortness of breath CARDIOVASCULAR: Negative for chest pain, leg swelling, orthopnea, or palpitations GI: No nausea, vomiting, or diarrhea/constipation. No hematochezia/melena. No heartburn or reflux symptoms. : No history of dysuria, frequency or incontinence MUSCULOSKELETAL: Negative for joint pain or swelling. SKIN: Negative for lesions, rash, and itching ENDOCRINE: Negative for cold or heat intolerance, polyuria, polydipsia and goiter NEURO: No history of headaches, syncope, paralysis, seizures or tremors MOOD: Negative for depression, anxiety, or suicidal ideation. EXAM: BP 123/76 Pulse 77 Resp 16 Wt 102.6 kg (226 lb 3.1 oz) SpO2 96% BMI 31.55 kg/m PHYSICAL EXAM: General Appearance: Well appearing, alert, in no acute distress, well-hydrated, well nourished.. Skin: Skin color, texture, turgor normal, no suspicious rashes or lesions. Head: Normocephalic, no masses, lesions, tenderness or abnormalities. Eyes: Anicteric sclera. Extraocular movements are intact. Lungs: Lungs clear to auscultation. No wheezing, rhonchi, rales. Heart: RRR without murmur, gallop, or rubs. No ectopy. Abdomen: Abdomen soft, non-tender. Bowel sounds normal. No masses, organomegaly. Extremities: No deformities, edema, skin discoloration, clubbing or cyanosis. Good capillary refill. Peripheral Pulses: Normal, Capillary refill <2secs, strong peripheral pulses, Pulses palpable. Neurologic: Gait normal. Sensation grossly intact. ASSESSMENT/PLAN: 1. Hospital discharge follow-up - ICD9: V67.59, ICD10: Z09 (primary diagnosis) - Stable since discharge 2. Diverticulitis - ICD9: 562.11, ICD10: K57.92 - Instructed to finish Augmentin as prescribed. - Continue to eat a bland diet, may advance as tolerated. - Keep upcoming appointment for colonoscopy. 3. Abdominal aortic aneurysm (AAA) without rupture, unspecified part (HCC) - ICD9: 441.4, ICD10: I71.40 - Recommend completing ultrasound of AAA and have a consult with vascular surgery. - CONSULT TO VASCULAR SURGERY - US ABD AORTA Follow-up as scheduled or sooner pending test results. Discussed treatment plan and patient voices understanding. Patient's questions answered appropriately. Medications and potential side effects were discussed and patient voices understanding. Gerri Curry APRN.TECHNICAL SUPPORT CONSULTANT This note was partially generated using [employer] voice recognition system. Note was reviewed for accuracy. There may be minor misspellings or grammar miscues with [employer] voice recognition. documented in this encounter[facility]09-23-2024 Instructions* Patient Instructions* Debo Rodriguez MD - 06/26/2024 1:55 PM EDT COLONOSCOPY BOWEL PREPARATION INSTRUCTIONS GOLYTELY/NULYTELY/TRILYTE/COLYTE Your doctor has scheduled you for a colonoscopy. To have a successful colonoscopy, you must have a clean colon, that is empty. A clean colon allows your doctor to see the entire colon & diagnose issues like polyps or cancer. For doctors, a clean colon is like driving on a wanda day; a dirty colon like driving in a storm. It is very important that you follow these instructions exactly, or your colonoscopy might not be as effective, could be canceled, and you may need to do the bowel prep and the colonoscopy again. TRANSPORTATION REQUIREMENTS You are receiving IV sedation. For your safety, a responsible adult escort must accompany you to and from your procedure: Your adult escort MUST be present with you at check-in for your colonoscopy. Your adult escort MUST remain in the endoscopy area until you are discharged. Your adult escort MUST transport you home once you are discharged. You are NOT allowed to operate any form of transportation (i.e. drive a car, bicycle, etc.) or leave the Endoscopy Center ALONE. It is not safe to do so. If you cannot meet these requirements, your procedure will be canceled. MEDICATION REQUIREMENTS For your safety, certain medications will need to be stopped or adjusted before you can have your procedure: BLOOD THINNERS: If you take blood thinners, such as Coumadin (warfarin), Plavix (clopidogrel), Ticlid (ticlopidine hydrochloride), Agrylin (anagrelide), Xarelto (Rivaroxaban), Pradaxa (Dabigatran), Eliquis (Apixaban), or Effient (Prasugrel), contact the physician who is prescribing these medications at least 2 weeks prior to your procedure to discuss any necessary adjustments. DIABETES: If you take medications for diabetes, your dosage may need to be adjusted. If you are being treated for diabetes with insulin, diabetic pills, or other injectable medicationsdo not take your REGULAR dose after midnight on the day of your procedure. If you are taking any other types of insulin such as Lantus, Humalog, NPH (long- acting insulin), or70/30 insulin, take half your normal dose the day before your procedure. DIABETES/WEIGHT MANAGEMENT: If you take medications for weight-loss, your dosage may need to be adjusted Contact the doctor who prescribes this medication for further instructions. If you take medications for weight-loss like semaglutide (Ozempic, Wegovy, Rybelsus), dulaglutide (Trulicity), liraglutide (Victoza, Saxenda), exenatide (Byetta, Bydureon), or lixisenatide (Adylyxin), stop your medication 1 week prior to your procedure. If you take medications like canagliflozin (Invokana), dapagliflozin (Farxiga, Forxiga), empagliflozin (Jardiance), or ertugliflozin (Steglatro), stop your medication 1 day prior to your procedure. IRON: If you take iron pills, STOP them 1 week BEFORE your procedure, may resume after. OTHER MEDS: May take all other medications (including aspirin, antibiotics, water pills / diureticslike Lasix or Metolozone, blood pressure meds, etc.) at their usual scheduled time with a sip of water. DIET REQUIREMENTS The day before your colonoscopy, you may have a clear liquid diet (see below). The day of your colonoscopy, you may continue a clear liquid diet until 3 hours before your colonoscopy. Within 3 hours of your colonoscopy, take only any medications (as above) with a sip of water. Clear Liquid Diet Broth (chicken, beef or vegetable broth or bullion. Just the broth, no solids). Water Coffee or Tea (NO milk or creamer), but sugar and sugar substitutes are allowed. Clear liquids including clear, yellow, green, blue (NO red, ) Sodas / soft drinks Gatorade or other sports drinks Artur-Aid or flavored drinks Plain Jell-O or other gelatins Fruit juice (strained; no-pulp) Popsicles or hard candy (like [place] [employer]) BOWEL PREPARATION (GOLYTELY/NULYTELY/TRILYTE/COLYTE) Split Dosing Bowel Prep: This means drinking your bowel prep in two doses. Split dosing helps cleanyour colon better and makes it less likely that your procedure will be canceled. Fill your prescription for Golytely/Nulytely/Trilyte/Colyte: The afternoon before your colonoscopy, mix the solution and refrigerate. You may add the flavor pack (if present) that came with the bowel preparation. Do not add ice, sugar, or other flavorings to the solution. You will drink your prep in two doses, by several hours - the day prior to the procedure Bowel prep can work differently from person to person. Some people's bowels move slowly and they may need different instructions. Please see your doctor in office or virtually for personalized bowel prep instructions if you have: Medical condition that needs special accommodations Had a poor bowel prep results or failed bowel prep attempts in the past. Had difficulty with anesthesia during the procedure. FREQUENTLY ASKED QUESTIONS Q: What if I suffer from constipation? A: Recommend taking extra laxatives to resolve your constipation days prior to entering the bowel prep day. Q: What if have had prior poor preps results in past? A: Contact your physician as you will likely need additional bowel prep instructions. Q: What if I have motility issues like Parkinson's, MS (multiple sclerosis), wheelchair dependent, etc.? or on medications that slow bowel emptying (narcotics, gabapentin, anticholinergic medicationsetc.) A: Contact your physician as you will likely need extra time and additional laxatives to complete your bowel prep. Q: What if I cannot drink large volume of liquid? A: Start your prep 2-3 hours earlier to allow yourself more time to complete the entire prep. Q: What if I can't finish my bowel prep? A: If you cannot finish your entire bowel prep, it is likely that your colonoscopy will need to be rescheduled due to poor prep quality. Q: What if I had bariatric surgery? Do I still have to complete the entire prep? A: Yes, gastric bypass surgery involves the stomach & small bowel. You may need to drink smaller amounts, slower (may need more time to complete your bowel prep). Gastric bypass does not alter the length of your colon so you will need to complete the entire bowel prep, it may just take longer time to complete it. Q: What if I am on dialysis? A: Please consult your subgrade tester prior to scheduling to get instructions pertinent to you. In general, dialysis patients take the Golytely bowel prep and have the procedure same day of their dialysis (colonoscopy in AM, dialysis in PM). Q: How do I know if something is considered as clear liquid diet? A: If you can pour it in a glass and you can see through it, it is considered clear liquid Q: Can I eat nuts, seeds, beans, popcorn, dried fruits, vegetables & fruits that have skin peel? A: No, you will need to not eat these items starting 3 days prior to procedure. Q: Can I take Uber/Lyft/taxi/bus home? A: An adult MUST be present with you at check-in for your colonoscopy and remain in the endoscopy area until you are discharged. You can take Uber home only if this adult escort is with you at check in, remain in the endoscopy area until you are discharged, and takes the Uber with you to home. Q: Can I sleep it off here and drive myself home? A: No, you must have an adult with you at time of procedure check in, remain in the endoscopy center during your procedure, and drive you home. You cannot drive a vehicle after your procedure the rest of the day. MEDICATIONS: Hold Eliquis at least three days prior to the procedure Can hold all medications after the procedure documented in this encounterU[facility] Center09-23-2024 History of Present illness Narrative* Debo Rodriguez MD - 06/26/2024 1:47 PM EDT NEW VIRTUAL CONSULT I had a virtual consult with Mr. Wesley today. This consult was requested by Robson Robertson for an opinion regarding screening for colon cancer via colonoscopy , and my final recommendations will be communicated to the requesting health care provider by way of the shared medical record for internal providers or letter via the [employer] for external providers. I have communicated my name and active licensure. The patient's identity and physical location wereverified at the time of this visit. Either the patient or their legal home office representative has been informed of the risks and benefits of -- and alternatives to -- treatment through a remote evaluation andconsents to proceed with the evaluation remotely. HISTORY: The patient wishes to undergo colonoscopy for screening for colonoscopy. He last had a colonoscopy 10 years ago The patient denies blood in stools, denies abdominal pain, and denies changes in bowel habits. The patient notes no colon cancer in immediate family. -however, his mother had ovarian cancer spread to colon in her 70s PAST MEDICAL HISTORY Diagnosis Date Abdominal pain, other specified site Asthma Awareness under anesthesia CAD (coronary artery disease) Cholelithiasis 09/25/2013 Colitis Diabetes mellitus (HCC) type 2 diet controlled Elevated prostate specific antigen (PSA) Esophageal reflux Gastroesophageal reflux Hypertension Impotence of organic origin Impotence Nocturia SUJEY (obstructive sleep apnea) Post-void dribbling Prostate cancer (HCC) RUQ abdominal pain 09/25/2013 PAST SURGICAL HISTORY Procedure Laterality Date CABG (2) VEIN GRAFTS & ARTERIAL GRAFT(S 10/16/2022 COLONOSCOPY FLX DX W/COLLJ SPEC WHEN PFRMD Colonoscopy Dr. Ferreira ESOPHAGOGASTRODUODENOSCOPY TRANSORAL DIAGNOSTIC EGD Dr. Ferreira LAPAROSCOPY SURG CHOLECYSTECTOMY 09/25/2013 PAST SURGICAL HISTORY OF I&D left hand PAST SURGICAL HISTORY OF Removal cyst on back PROSTATE BIOPSY GUKI 07/14/2022 STENT PLACEMENT 4 Stents FAMILY HISTORY Problem Relation Age of Onset Colon Cancer Mother Heart Mother Ovarian cancer Mother Prostate Cancer Brother Stroke Brother Emphysema Father Social History Tobacco Use Smoking status: Every Day Current packs/day: 0.25 Average packs/day: 0.3 packs/day for 0.8 years (0.2 ttl pk-yrs) Types: Cigarettes Start date: 08/25/2023 Smokeless tobacco: Never Tobacco comments: Resumed last week after the of his spouse Vaping Use Vaping status: Never Used Substance Use Topics Alcohol use: Yes Comment: 1 beer in the evening occasionally Drug use: No Current Outpatient Medications Medication Sig Dispense Refill losartan (COZAAR) 100 mg tablet Take 1 tablet by mouth once daily. 90 tablet 3 multivit-min/folic/vit K/lycop (MEN'S MULTIVITAMIN ORAL) Take by mouth. docosahexaenoic acid/epa (FISH OIL ORAL) Take by mouth. lansoprazole (PREVACID) 30 mg capsule Take 1 capsule by mouth daily before breakfast. 1/2 hr beforemeal. 30 capsule 11 spironolactone (ALDACTONE) 25 mg tablet Take 1 tablet by mouth once daily. 30 tablet 11 apixaban (ELIQUIS) 5 mg tab(s) Take 1 tablet by mouth two times a day. 60 tablet 11 aspirin, enteric coated (ECOTRIN LOW STRENGTH) 81 mg EC tablet Take 1 tablet by mouth once daily. evolocumab (REPATHA SURECLICK) 140 mg/mL pen injector Inject 140 mg subcutaneously every 2 weeks. 2Each 12 guaiFENesin (MUCINEX) 600 mg 12 hr tablet Take 1 tablet by mouth twice daily as needed for cold/allergy symptoms. loratadine (CLARITIN) 10 mg tablet Take 1 tablet by mouth once daily. nitroglycerin sublingual (NITROQUICK) 0.4 mg SL tablet Dissolve 0.4 mg under the tongue every 5 minutes as needed. ADVAIR DISKUS 500-50 mcg/dose dsdv INHALE 1 (ONE) puff EVERY 12 HOURS No current facility-administered medications for this visit. ALLERGIES Allergen Reactions Gemfibrozil Intolerance Rosuvastatin Intolerance Simvastatin Intolerance Imdur [Isosorbide] Intolerance Headaches, upset stomach, fatigue Penicillins Intolerance passed out and felt like I had the flu Pt states he's no longer allergic to this, he's taken tests w/out issues. Pravastatin Myalgia REVIEW OF SYSTEMS: General - denies fevers, denies anorexia, denies weight loss Cardiovascular - denies chest pain, has history of ID, intermittent atrial fibrillation Pulmonary - denies shortness of breath, denies coughing up blood Gastrointestinal - denies abdominal pain, denies hematemesis, denies blood in stools Neurological - denies seizures, denies history of CVA Genitourinary - denies burning with urination, denies blood in urine Hematological - denies spontaneous/prolonged bleeding, denies history of blood transfusions/clots Skin - denies nonhealing skin wounds Musculoskeletal - no bone fractures Endocrine - denies diabetes, no thyroid problems Psychological - denies hallucinations PHYSICAL FINDINGS OF NOTE: Patient reported Ht: 5'11 Wt: 220# General - Normal, healthy, cooperative, in no acute distress Able to interact verbally by video conference Psych - ORIENTATION: normal to time place, person and situation Mood/Affect: AFFECT AND MOOD: Normal Head/Neuro - Normal size and shape Facial appearance normal Pulmonary - respiratory effort normal Cardiovascular - patient describes extremities normal, warm, no cyanosis,no clubbing, and no edema Abdominal - Not performed Skin - abnormal lesions not visualized Motor - patient seen sitting with Normal appearing strength and coordination IMPRESSION Screening for colon cancer via colonoscopy RECOMMENDATION: I have discussed the above with the patient. I have offered colonoscopy , possible biopsies I have explained the procedure to the patient. I have counseled the patient as to the risks of the procedure, including but not limited to: infection, bleeding, injury to any intrabdominal organs such as liver/spleen, perforation of the GI tract,inability to complete the procedure, complications of anesthesia, etc. - the patient understands. The patient wishes to proceed. I have answered all questions to the patient s satisfaction and the patient has no further questions. I have educated the patient as to the colon cleansing regimen and the instructions are on MyChart for which patient states that he has access to. I have prescribed Golytely for the colon cleansing solution. The patient will be scheduled for the procedure at [facility]. Debo Rodriguez MD I spent a total of 28 minutes on the date of the service which included preparing to see the patient with review of any pertinent laboratory studies/radiological imaging/medical records, virtual [id number] patient care, obtaining oral medical history from the patient in this encounter, counseling and educating the patient/family/caregiver, and ordering and/or scheduling of medications/tests/procedures, and completing appropriate medical documentation. documented in this encounterUc [facility] Center09-20-2024 Instructions* Patient Instructions* Robson Robertson APRN.CNP - 06/23/2024 11:10 AM EDT Follow up in 6 months with labs prior See general surgery for colonoscopy Flu and Covid vaccine given today Can get a pneumonia vaccine at the pharmacy or when you see us again Robson Robertson APRN.CNP documented in this encounterUc Medical Center09-20-2024 History of Present illness Narrative* Robson Robertson APRN.CNP - 06/23/2024 11:00 AM EDT Chief Complaint Patient presents with: Follow Up HPI Denton Wesley is a 74 year old male who presents here today for Chronic Medical Conditions. Diabetes: Patient is not taking any diabetic medication. He has a well- controlled hemoglobin A1c of6.9%. Admits to tj fox. Hypertension: Taking medication as prescribed. Blood pressure is well-controlled today. Denies any chest pain, shortness of breath, dizziness. Following with cardiology with including clinic for CAD, history of CABG x 2. Patient following with pulm for Advair. Not consistent with daily use. Had CAP recently, Cough is slowly improving. History of sessile polyp. Last colonoscopy in [address] Ferreira. [place]. Past medical history, appointments, medications, allergies reviewed. EXAM: BP 130/82 Pulse 79 Resp 16 Wt 101.2 kg (223 lb 1.7 oz) SpO2 96% BMI 31.12 kg/m General Appearance: Well appearing, alert, in no acute distress, well-hydrated, well nourished.. Lungs: Lungs clear to auscultation. No wheezing, rhonchi, rales.. Heart: RRR without murmur, gallop, or rubs. No ectopy. Latest Ref Rng 06/07/2024 WBC 3.70 - 11.00 k/uL 6.12 RBC 4.20 - 6.00 m/uL 4.20 Hemoglobin 13.0 - 17.0 g/dL 13.1 Hematocrit 39.0 - 51.0 % 39.8 MCV 80.0 - 100.0 fL 94.8 MCH 26.0 - 34.0 pg 31.2 MCHC 30.5 - 36.0 g/dL 32.9 RDW-CV 11.5 - 15.0 % 13.7 Platelet Count 150 - 400 k/uL 341 MPV 9.0 - 12.7 fL 9.4 Neut% % 65.2 Abs Neut (ANC) 1.45 - 7.50 k/uL 3.99 Lymph% % 17.0 Abs Lymph 1.00 - 4.00 k/uL 1.04 Forest% % 9.8 Abs Forest <0.87 k/uL 0.60 Eosin% % 6.4 Abs Eosin <0.46 k/uL 0.39 Baso% % 1.1 Abs Baso <0.11 k/uL 0.07 Immature Gran % % 0.5 IMMATURE GRANS (ABS) <0.10 k/uL 0.03 NRBC /100 WBC 0.0 Absolute nRBC <0.01 k/uL <0.01 DTYPE Auto Protein, Total 6.3 - 8.0 g/dL 6.9 Albumin 3.9 - 4.9 g/dL 4.1 Calcium 8.5 - 10.2 mg/dL 9.3 Bilirubin, Total 0.2 - 1.3 mg/dL 0.3 Alkaline Phosphatase 38 - 113 U/L 68 AST 14 - 40 U/L 34 ALT 10 - 54 U/L 49 Glucose 74 - 99 mg/dL 153 (H) BUN 9 - 24 mg/dL 16 Creatinine 0.73 - 1.22 mg/dL 0.74 Sodium 136 - 144 mmol/L 141 Potassium 3.7 - 5.1 mmol/L 4.3 Chloride 98 - 107 mmol/L 105 CO2 22 - 30 mmol/L 24 Anion Gap 8 - 15 mmol/L 12 eGFR >=60 mL/min/1.73m 95 Cholesterol, Total <200 mg/dL 124 Triglyceride <150 mg/dL 74 HDL Cholesterol >39 mg/dL 42 Non HDL Cholesterol <130 mg/dL 82 Fasting Time hrs 12 VLDL Cholesterol <30 mg/dL 15 TC:HDL Ratio <5.10 2.95 LDL Cholesterol <100 mg/dL 67 LDL:HDL Ratio <2.54 1.60 Creatinine, Ur Random (UCRR) 20.0 - 300.0 mg/dL 30.2 Albumin, Urine Random mg/L <12.0 Albumin/Creat Ratio -- Hemoglobin A1C 4.3 - 5.6 % 6.9 (H) Estimated Average Glucose mg/dL 151 ASSESSMENT/PLAN: 1. Type 2 diabetes mellitus without complication, without long-term current use of insulin (HCC) - ICD9: 250.00, ICD10: E11.9 (primary diagnosis) - Controlled - Continue with lifestyle control - HEMOGLOBIN A1C - COMPREHENSIVE METABOLIC PANEL 2. Community acquired pneumonia of right lung, unspecified part of lung - ICD9: 486, ICD10: J18.9 -Improving, lung exam normal, no further treatment needed. 3. Essential hypertension - ICD9: 401.9, ICD10: I10 - Controlled - Continue current medications - Recommend home blood pressure monitoring, to bring results to next visit - Encouraged sodium restriction, DASH or Mediterranean diet - Recommend regular aerobic exercise - COMPREHENSIVE METABOLIC PANEL 4. Mixed hyperlipidemia - ICD9: 272.2, ICD10: E78.2 - Controlled - Continue current medications - Counseled on healthy diet and regular exercise - COMPREHENSIVE METABOLIC PANEL - LIPID PANEL BASIC 5. Encounter for immunization - ICD9: V03.89, ICD10: Z23 - INFLUENZA VACCINE, PRSV FREE, AGE 65+ YR, HIGH DOSE, TRIVALENT (FLUZONE HIGH-DOSE) - [facility] COVID-19 VACCINE AGE 12+ YR 6. History of colonic polyps - ICD9: V12.72, ICD10: Z86.010 -Overdue for colon cancer screening, history of sessile polyp. Patient offered to go back to Dr. Ferreira or stay within [facility]. - CONSULT TO GENERAL SURGERY 7. Screening for colon cancer - ICD9: V76.51, ICD10: Z12.11 - CONSULT TO GENERAL SURGERY Robson Robertson APRN.CNP RTO in 6 months, sooner if needed. This note was partly generated using [employer] voice recognition dictation and may contain some misspelled or inaccurate words missed on review. documented in this encounterUc Medical Center09-09-2024 History of Present illness Narrative* Aysha Hoskins, RT(R) - 06/12/2024 5:30 PM EDT Radiology Service Progress Note PATIENT NAME: Denton Wesley DATE OF SERVICE: June 12, 2024 TIME: 5:46 PM PATIENT IDENTITY VERIFICATION COMPLETED USING TWO (2) IDENTIFIERS: Name and Date of confirmedby patient verbally. FALL SCREENING: Has the patient had 2 falls in the last year or 1 fall with injury or currently using an Ambulatory Assistive Device (Walker, Cane, Wheelchair, Crutches, etc.)? No PATIENT GENDER DATA: Male PATIENT RELEVANT IMPLANT DATA REVIEWED: Not Applicable PATIENT PRESENTS WITH AN IMPLANTABLE OR ATTACHED HEAD LINEMAN: No RADIOLOGY DEPARTMENT: General X-ray: Exam(s) Completed: Upper Extremity X- Ray(s): Wrist, right PERIPHERAL IV DATA: Not applicable SIGNED BY: RT Ruy(R) June 12, 2024 5:46 PM documented in this encounterUc Medical Center09-09-2024 History of Present illness Narrative* Olu Almendarez MD - 06/12/2024 4:59 PM EDT Patient presents with: Wrist Pain HPI: Patient presents today for office visit for checking his right wrist. About a week ago was using some bee and wasp spray-2 cans worth. Also had worked on his car a week ago-had to put on a new alternator as well. Had discomfort. Initially did not have swelling or bruising but now is bruised and swollen. for several days. No injury. No bleeding or other bruising. Is eliquis. Has noticed some very slight numbness to his fingers. Mostly bothers him when not using it. Not hot or red or fever. MEDICATIONS: Current Outpatient Medications Medication Sig losartan (COZAAR) 100 mg tablet Take 1 tablet by mouth once daily. multivit-min/folic/vit K/lycop (MEN'S MULTIVITAMIN ORAL) Take by mouth. docosahexaenoic acid/epa (FISH OIL ORAL) Take by mouth. lansoprazole (PREVACID) 30 mg capsule Take 1 capsule by mouth daily before breakfast. 1/2 hr beforemeal. spironolactone (ALDACTONE) 25 mg tablet Take 1 tablet by mouth once daily. apixaban (ELIQUIS) 5 mg tab(s) Take 1 tablet by mouth two times a day. aspirin, enteric coated (ECOTRIN LOW STRENGTH) 81 mg EC tablet Take 1 tablet by mouth once daily. evolocumab (REPATHA SURECLICK) 140 mg/mL pen injector Inject 140 mg subcutaneously every 2 weeks. (Patient not taking: Reported on 01/24/2024) tamsulosin (FLOMAX) 0.4 mg Take 1 capsule by mouth daily at bedtime. (Patient taking differently: Take 0.8 mg by mouth daily at bedtime. Two tabs at bedtime) fluticasone (FLONASE) 50 mcg/actuation nasal spray Use 2 Sprays in each nostril once daily. Rinse mouth after use. guaiFENesin (MUCINEX) 600 mg 12 hr tablet Take 1 tablet by mouth twice daily as needed for cold/allergy symptoms. loratadine (CLARITIN) 10 mg tablet Take 1 tablet by mouth once daily. nitroglycerin sublingual (NITROQUICK) 0.4 mg SL tablet Dissolve 0.4 mg under the tongue every 5 minutes as needed. ADVAIR DISKUS 500-50 mcg/dose dsdv INHALE 1 (ONE) puff EVERY 12 HOURS No current facility-administered medications for this visit. ALLERGIES: ALLERGIES Allergen Reactions Gemfibrozil Intolerance Rosuvastatin Intolerance Simvastatin Intolerance Imdur [Isosorbide] Intolerance Headaches, upset stomach, fatigue Penicillins Intolerance passed out and felt like I had the flu Pt states he's no longer allergic to this, he's taken tests w/out issues. Pravastatin Myalgia PAST MEDICAL HISTORY No date: Abdominal pain, other specified site No date: Asthma No date: Awareness under anesthesia No date: CAD (coronary artery disease) 09/25/2013: Cholelithiasis No date: Colitis No date: Diabetes mellitus (HCC) Comment: type 2 diet controlled No date: Elevated prostate specific antigen (PSA) No date: Esophageal reflux Comment: Gastroesophageal reflux No date: Hypertension No date: Impotence of organic origin Comment: Impotence No date: Nocturia No date: SUJEY (obstructive sleep apnea) No date: Post-void dribbling No date: Prostate cancer (HCC) 09/25/2013: RUQ abdominal pain PAST SURGICAL HISTORY 10/16/2022: CABG (2) VEIN GRAFTS & ARTERIAL GRAFT(S No date: COLONOSCOPY FLX DX W/COLLJ SPEC WHEN PFRMD Comment: Colonoscopy Dr. Ferreira No date: ESOPHAGOGASTRODUODENOSCOPY TRANSORAL DIAGNOSTIC Comment: EGD Dr. Ferreira 09/25/2013: LAPAROSCOPY SURG CHOLECYSTECTOMY No date: PAST SURGICAL HISTORY OF Comment: I&D left hand No date: PAST SURGICAL HISTORY OF Comment: Removal cyst on back 07/14/2022: PROSTATE BIOPSY GUKI No date: STENT PLACEMENT Comment: 4 Stents FAMILY HISTORY Problem Relation Age of Onset Colon Cancer Mother Heart Mother Ovarian cancer Mother Prostate Cancer Brother Stroke Brother Emphysema Father Social History Tobacco Use Smoking status: Every Day Current packs/day: 0.25 Average packs/day: 0.3 packs/day for 0.8 years (0.2 ttl pk-yrs) Types: Cigarettes Start date: 08/25/2023 Smokeless tobacco: Never Tobacco comments: Resumed last week after the of his spouse Vaping Use Vaping status: Never Used Substance Use Topics Alcohol use: Yes Comment: 1 beer in the evening occasionally Drug use: No Reviewed current medications, allergies, past medical history, surgical history, family history andsocial history today. REVIEW OF SYSTEMS All other reviewed and negative other than HPI. VITALS: BP 132/80 Pulse 73 Temp 36.4 C (97.6 F) (Tympanic) Wt 101.1 kg (222 lb 14.2 oz) SpO2 99% BMI 31.09 kg/m Last 4 Encounter Wt Readings: Date: Wt: 05/19/2024 102.2 kg (225 lb 5 oz) 04/26/2024 100.4 kg (221 lb 5.5 oz) 01/24/2024 98.9 kg (218 lb) 01/10/2024 100.2 kg (220 lb 12.8 oz) PHYSICAL EXAMINATION: General appearance: Well appearing, alert, in no acute distress, well-hydrated, well nourished. Skin: Skin color, texture, turgor normal, no suspicious rashes or lesions Extremities: mild swelling and small hematoma over right ulnar side of wrist on the volar area. Nothot or red. Musculoskeletal: No joint swelling, deformity, or tenderness, normal range of motion. Peripheral pulses: Normal Neuro: Gait normal. Reflexes normal and symmetric. Sensation grossly intact., Negative findings: muscle tone normal, muscle strength normal ASSESSMENT/PLAN: 1. Essential hypertension - ICD9: 401.9, ICD10: I10 (primary diagnosis) - Controlled - Continue current medications 2. Prostate cancer (HCC) - ICD9: 185, ICD10: C61 - stable. 3. Right wrist pain - ICD9: 719.43, ICD10: M25.531 - ice and heat prn. Elevate prn. Get xray. Suspect he may have injured it while working on his care. Red flags for re-assessment reviewed with patient in detail. Call if symptoms worsen at all or if not better in one to two weeks 4. Hematoma - ICD9: 924.9, ICD10: T14.8XXA -as above., Olu Almendarez MD [facility] Telephone encounter Note * Telephone Encounter - Jenniffer Brown RN - 05/22/2024 11:58 AM EDT VERONICA: 01/24/2024 NOV: not scheduled Labs: 02/14/2024 - BMP [facility] Miscellaneous Notes* Telephone Encounter - Jenniffer Brown RN - 05/22/2024 11:58 AM EDT VERONICA: 01/24/2024 NOV: not scheduled Labs: 02/14/2024 - BMP documented [facility] encounter[facility] Telephone encounter Note * Telephone Encounter - Joseph Tubbs MA - 05/19/2024 4:16 PM EDT [employer] message sent to pt notifying him of results below from Provider. Joseph Tubbs MA [facility] Miscellaneous Notes* Telephone Encounter - Joseph Tubbs MA - 05/19/2024 4:16 PM EDT [employer] message sent to pt notifying him of results below from Provider. Joseph Tubbs MA * Telephone Encounter - Joseph Tubbs MA - 05/19/2024 4:15 PM EDT ----- Message from Robson Robertson APRN.CNP sent at 05/19/2024 4:13 PM EDT ----- Please let the patient know that his chest X-ray shows that his pneumonia has resolved. Robson Robertson CNP documented in this encounter[facility]08-[facility]24 Telephone encounter Note * Telephone Encounter - Joseph Tubbs MA - 05/19/2024 4:15 PM EDT ----- Message from Robson Robertson APRN.CNP sent at 05/19/2024 4:13 PM EDT ----- Please let the patient know that his chest X-ray shows that his pneumonia has resolved. Robson Robertson CNP [facility] History of Present illness Narrative* Socorro Colvin, RT(R) - 05/19/2024 3:40 PM EDT Radiology Service Progress Note PATIENT NAME: Denton Wesley DATE OF SERVICE: May 19, 2024 TIME: 3:35 PM PATIENT IDENTITY VERIFICATION COMPLETED USING TWO (2) IDENTIFIERS: Name and Date of confirmedby patient verbally. FALL SCREENING: Has the patient had 2 falls in the last year or 1 fall with injury or currently using an Ambulatory Assistive Device (Walker, Cane, Wheelchair, Crutches, etc.)? No PATIENT GENDER DATA: Male PATIENT RELEVANT IMPLANT DATA REVIEWED: Yes PATIENT PRESENTS WITH AN IMPLANTABLE OR ATTACHED HEAD LINEMAN: No RADIOLOGY DEPARTMENT: General X-ray: Exam(s) Completed: Chest X-Ray PERIPHERAL IV DATA: Not applicable SIGNED BY: Socorro Colvin, RT(R) May 19, 2024 3:35 PM documented in this encounterU[facility]08-16-2024 History of Present illness Narrative* Robson Robertson APRN.TECHNICAL SUPPORT CONSULTANT - 05/19/2024 3:20 PM EDT Chief Complaint Patient presents with: Cough: With Congestion, fever x3 weeks Not improving HPI Denton Wesley is a 73 year old male who presents here today for Above Complaints. Patient here for follow up for recent pneumonia. Diagnosed with CAP on April 26. Treated with 5 days of levoquin. Waldo slightly better. States that he has some fever last two Saturdays in the row. States it was 102. Took some tylenol with success then did not have a fever the rest of the week. Today he is afebrile. Other symptoms include chest congestion, cough, wheezing. He is overdue for lab work secondary to diabetes, hypertension, hyperlipidemia. Past medical history, appointments, medications, allergies reviewed. EXAM: BP 122/78 Pulse 84 Temp 36.9 C (98.4 F) Resp 16 Wt 102.2 kg (225 lb 5 oz) SpO2 98% BMI 31.42 kg/m General Appearance: Well appearing, alert, in no acute distress, well-hydrated, well nourished.. Oropharynx: Lips, mucosa, and tongue normal, teeth and gums normal, oropharynx normal. Lungs: Lungs clear to auscultation. No wheezing, rhonchi, rales. Cough. Heart: RRR without murmur, gallop, or rubs. No ectopy. ASSESSMENT/PLAN: 1. Type 2 diabetes mellitus without complication, without long-term current use of insulin (HCC) - ICD9: 250.00, ICD10: E11.9 (primary diagnosis) -Get blood work, see us back next week to discuss. - COMPLETE BLOOD COUNT AND DIFFERENTIAL - HEMOGLOBIN A1C - ALBUMIN/CREATININE RATIO, URINE - COMPREHENSIVE METABOLIC PANEL 2. Wheezing - ICD9: 786.07, ICD10: R06.2 -Secondary to recent pneumonia. Trial low-dose taper of steroids to see if we get improvement. - PREDNISONE 10 MG TABLET 3. Community acquired pneumonia of right lung, unspecified part of lung - ICD9: 486, ICD10: J18.9 -Patient previously treated with Levaquin. It has been about 3 and half weeks since treatment. Still having intermittent symptoms. Lungs clear on exam. Check chest x-ray for demonstration of improvement. Follow-up next week for symptom update. - XR CHEST 2V FRONTAL/LAT 4. Essential hypertension - ICD9: 401.9, ICD10: I10 -Get blood work, return next week - COMPREHENSIVE METABOLIC PANEL 5. Mixed hyperlipidemia - ICD9: 272.2, ICD10: E78.2 -Get blood work, return next week - LIPID PANEL BASIC - COMPREHENSIVE METABOLIC PANEL Robson Robertson APRN.TECHNICAL SUPPORT CONSULTANT Get chest x-ray today. Return to get fasting blood work. Follow-up in the next 1 to 2 weeks to check in with symptoms, discussed blood work in relation to chronic diseases. Patient verbalized understanding. This note was partly generated using AD[employer] voice recognition dictation and may contain some misspelled or inaccurate words missed on review. documented in this encounter[facility]07-[facility]-2024 History of Present illness Narrative* Kyung Rust, RT(R) - 04/26/2024 11:40 AM EDT Radiology Service Progress Note PATIENT NAME: Denton Wesley DATE OF SERVICE: April 26, 2024 TIME: 11:11 AM PATIENT IDENTITY VERIFICATION COMPLETED USING TWO (2) IDENTIFIERS: Name and Date of confirmedby patient verbally. FALL SCREENING: Has the patient had 2 falls in the last year or 1 fall with injury or currently using an Ambulatory Assistive Device (Walker, Cane, Wheelchair, Crutches, etc.)? No PATIENT GENDER DATA: Male PATIENT RELEVANT IMPLANT DATA REVIEWED: Yes PATIENT PRESENTS WITH AN IMPLANTABLE OR ATTACHED HEAD LINEMAN: No RADIOLOGY DEPARTMENT: General X-ray: Exam(s) Completed: Chest X-Ray PERIPHERAL IV DATA: Not applicable SIGNED BY: RT Casey(R) April 26, 2024 11:11 AM documented in this encounterU[facility]07-24-2024 History of Present illness Narrative* Charley Webb APRN.TECHNICAL SUPPORT CONSULTANT - 04/26/2024 10:44 AM EDT This note was created using BuyHappyriter. Subjective Denton Wesley is a 73 year old male. 73 year old male with PMH CAD, HTN, afib, CABG, DM, presents for illness. Acute onset 4 days ago +cough Productive, thick yellow +headache +nasal congestin +fatigue +body aches Denies fever or chills Denies N/V/D Denies eye or ear complaints. Denies CP Denies hemoptysis. +ill contacts States he was in [place], and came home last Wednesday +tobacco usage The history is provided by the patient. No sports attorney was used. Cough This is a new problem. The current episode started more than 2 days ago. The problem occurs constantly. The problem has been gradually worsening. The cough is Productive of sputum. There has been no fever. Associated symptoms include headaches, rhinorrhea and wheezing. Pertinent negatives include no chest pain, no chills, no sweats, no weight loss, no ear congestion, no ear pain, no sore throat, no myalgias, no shortness of breath and no eye redness. He has tried nothing for the symptoms. The treatment provided no relief. He is a smoker. His past medical history is significant for asthma. Hispast medical history does not include bronchitis, pneumonia, bronchiectasis, COPD or emphysema. PAST MEDICAL HISTORY Diagnosis Date Abdominal pain, other specified site Asthma Awareness under anesthesia CAD (coronary artery disease) Cholelithiasis 09/25/2013 Colitis Diabetes mellitus (HCC) type 2 diet controlled Elevated prostate specific antigen (PSA) Esophageal reflux Gastroesophageal reflux Hypertension Impotence of organic origin Impotence Nocturia SUJEY (obstructive sleep apnea) Post-void dribbling Prostate cancer (HCC) RUQ abdominal pain 09/25/2013 PAST SURGICAL HISTORY Procedure Laterality Date CABG (2) VEIN GRAFTS & ARTERIAL GRAFT(S 10/16/2022 COLONOSCOPY FLX DX W/COLLJ SPEC WHEN PFRMD Colonoscopy Dr. Ferreira ESOPHAGOGASTRODUODENOSCOPY TRANSORAL DIAGNOSTIC EGD Dr. Ferreira LAPAROSCOPY SURG CHOLECYSTECTOMY 09/25/2013 PAST SURGICAL HISTORY OF I&D left hand PAST SURGICAL HISTORY OF Removal cyst on back PROSTATE BIOPSY GUKI 07/14/2022 STENT PLACEMENT 4 Stents ALLERGIES Gemfibrozil, Rosuvastatin, Simvastatin, Imdur [Isosorbide], Penicillins, and Pravastatin MEDICATIONS multivit-min/folic/vit K/lycop (MEN'S MULTIVITAMIN ORAL) Take by mouth. docosahexaenoic acid/epa (FISH OIL ORAL) Take by mouth. lansoprazole (PREVACID) 30 mg capsule Take 1 capsule by mouth daily before breakfast. 1/2 hr beforemeal. spironolactone (ALDACTONE) 25 mg tablet Take 1 tablet by mouth once daily. apixaban (ELIQUIS) 5 mg tab(s) Take 1 tablet by mouth two times a day. aspirin, enteric coated (ECOTRIN LOW STRENGTH) 81 mg EC tablet Take 1 tablet by mouth once daily. fluticasone (FLONASE) 50 mcg/actuation nasal spray Use 2 Sprays in each nostril once daily. Rinse mouth after use. guaiFENesin (MUCINEX) 600 mg 12 hr tablet Take 1 tablet by mouth twice daily as needed for cold/allergy symptoms. loratadine (CLARITIN) 10 mg tablet Take 1 tablet by mouth once daily. nitroglycerin sublingual (NITROQUICK) 0.4 mg SL tablet Dissolve 0.4 mg under the tongue every 5 minutes as needed. ADVAIR DISKUS 500-50 mcg/dose dsdv INHALE 1 (ONE) puff EVERY 12 HOURS levoFLOXacin (LEVAQUIN) 750 mg tablet Take 1 tablet by mouth once daily for 5 days. evolocumab (REPATHA SURECLICK) 140 mg/mL pen injector Inject 140 mg subcutaneously every 2 weeks. (Patient not taking: Reported on 01/24/2024) tamsulosin (FLOMAX) 0.4 mg Take 1 capsule by mouth daily at bedtime. (Patient taking differently: Take 0.8 mg by mouth daily at bedtime. Two tabs at bedtime) losartan (COZAAR) 100 mg tablet Take 1 tablet by mouth once daily. FAMILY HISTORY Problem Relation Age of Onset Colon Cancer Mother Heart Mother Ovarian cancer Mother Prostate Cancer Brother Stroke Brother Emphysema Father Social History Tobacco Use Smoking status: Every Day Packs/day: .25 Types: Cigarettes Start date: 08/25/2023 Smokeless tobacco: Never Tobacco comments: Resumed last week after the of his spouse Vaping Use Vaping Use: Never used Substance Use Topics Alcohol use: Yes Comment: 1 beer in the evening occasionally Drug use: No Review of Systems Constitutional: Positive for fatigue. Negative for chills and weight loss. HENT: Positive for congestion, postnasal drip and rhinorrhea. Negative for ear pain, sinus pressure, sinus pain and sore throat. Eyes: Negative for redness. Respiratory: Positive for cough and wheezing. Negative for apnea, chest tightness and shortness of breath. Cardiovascular: Negative for chest pain, palpitations and leg swelling. Gastrointestinal: Negative for abdominal pain, diarrhea, nausea and vomiting. Musculoskeletal: Negative for arthralgias, back pain and myalgias. Skin: Negative for color change, pallor, rash and wound. Allergic/Immunologic: Negative for environmental allergies, food allergies and immunocompromised state. Neurological: Positive for headaches. Negative for dizziness and facial asymmetry. Hematological: Negative for adenopathy. Does not bruise/bleed easily. Psychiatric/Behavioral: Negative for agitation and behavioral problems. Objective BP 169/103 Pulse 78 Temp 36.8 C (98.3 F) Resp 18 Wt 100.4 kg (221 lb 5.5 oz) SpO2 100% BMI 30.87 kg/m Physical Exam Vitals and nursing note reviewed. Constitutional: General: He is not in acute distress. Appearance: Normal appearance. He is not ill-appearing, toxic-appearing or diaphoretic. HENT: Head: Normocephalic and atraumatic. Right Ear: External ear normal. Left Ear: External ear normal. Nose: Nose normal. No congestion or rhinorrhea. Mouth/Throat: Mouth: Mucous membranes are moist. Pharynx: Oropharynx is clear. No oropharyngeal exudate or posterior oropharyngeal erythema. Eyes: General: Right eye: No discharge. Left eye: No discharge. Extraocular Movements: Extraocular movements intact. Conjunctiva/sclera: Conjunctivae normal. Pupils: Pupils are equal, round, and reactive to light. Cardiovascular: Rate and Rhythm: Normal rate and regular rhythm. Pulses: Normal pulses. Heart sounds: Normal heart sounds. No murmur heard. No friction rub. No gallop. Pulmonary: Effort: Pulmonary effort is normal. No respiratory distress. Breath sounds: No stridor. Wheezing and rhonchi present. No rales. Chest: Chest wall: No tenderness. Abdominal: General: Abdomen is flat. There is no distension. Palpations: Abdomen is soft. There is no mass. Tenderness: There is no abdominal tenderness. There is no guarding or rebound. Hernia: No hernia is present. Musculoskeletal: General: No swelling, tenderness, deformity or signs of injury. Normal range of motion. Cervical back: Normal range of motion and neck supple. No rigidity or tenderness. Right lower leg: No edema. Left lower leg: No edema. Lymphadenopathy: Cervical: No cervical adenopathy. Skin: General: Skin is warm and dry. Capillary Refill: Capillary refill takes less than 2 seconds. Coloration: Skin is not jaundiced or pale. Findings: No bruising, lesion or rash. Neurological: General: No focal deficit present. Mental Status: He is alert and oriented to person, place, and time. Cranial Nerves: No cranial nerve deficit. Sensory: No sensory deficit. Motor: No weakness. Coordination: Coordination normal. Gait: Gait normal. Deep Tendon Reflexes: Reflexes normal. Psychiatric: Mood and Affect: Mood normal. Behavior: Behavior normal. Thought Content: Thought content normal. Assessment and Plan ASSESSMENT/PLAN: 1. Acute cough - ICD9: 786.2, ICD10: R05.1 (primary diagnosis) X 4 days +rhonchi and exp wheezing - XR CHEST 2V FRONTAL/LAT-Multiple nodular opacities overlying the right upper lung and hazy opacities in the lingula. Pulmonary infection is among the top differential consideration. Please clinically correlate. 2. Pneumonia due to infectious organism, unspecified laterality, unspecified part of lung - ICD9: 486, ICD10: J18.9 RX -Levaquin (chosen related to allergy to PCN and Zithromax avoided related to coronary history) OTC cough medicines Follow up with PCP . Charley Webb APRN.TECHNICAL SUPPORT CONSULTANT documented in this encounter[facility]06-[facility]24 Telephone encounter Note * Telephone Encounter - Joseph Tubbs MA - 03/13/2024 8:07 AM EDT Pt notified that Rx has been sent into the Pharmacy on 03/10/24. Joseph Tubbs [facility] Miscellaneous Notes* Telephone Encounter - Joseph Tubbs MA - 03/13/2024 8:07 AM EDT Pt notified that Rx has been sent into the Pharmacy on 03/10/24. Joseph Tubbs MA documented in this encounter[facility]06-[facility]-2024 Telephone encounter Note * Telephone Encounter - Cali Cordero MD - 03/10/2024 11:09 AM EDT OK to refill as ordered Cali Cordero MD [facility] Miscellaneous Notes* Telephone Encounter - Cali Cordero MD - 03/10/2024 11:09 AM EDT OK to refill as ordered Cali Cordero MD * Telephone Encounter - Madhuri Greenwood MA - 03/10/2024 10:52 AM EDT Prescription Refill Information The patient has been identified by name and date of : Yes Caregiver verified no other encounters exist for this prescription request: Yes Caregiver confirmed with patient/requestor that no other refills are due, in the near future, with this provider at this time: No, didn't speak with pt, requested through [employer] The last office visit in the department: 01/10/24 Does the patient have a future office visit with this provider/department: No Requested Prescriptions Pending Prescriptions Disp Refills lansoprazole (PREVACID) 30 mg capsule 30 capsule 11 Sig: Take 1 capsule by mouth daily before breakfast. 1/2 hr before meal. Madhuri Greenwood MA March 10, 2024 10:52 AM documented in this encounter[facility]06-[facility]-2024 Telephone encounter Note * Telephone Encounter - Madhuri Greenwood MA - 03/10/2024 10:52 AM EDT Prescription Refill Information The patient has been identified by name and date of : Yes Caregiver verified no other encounters exist for this prescription request: Yes Caregiver confirmed with patient/requestor that no other refills are due, in the near future, with this provider at this time: No, didn't speak with pt, requested through [employer] The last office visit in the department: 01/10/24 Does the patient have a future office visit with this provider/department: No Requested Prescriptions Pending Prescriptions Disp Refills lansoprazole (PREVACID) 30 mg capsule 30 capsule 11 Sig: Take 1 capsule by mouth daily before breakfast. 1/2 hr before meal. Madhuri Greenwood MA March 10, 2024 10:52 AM [facility] [facility] [address] [facility] [id number] Dept: [phone] MD Denton Blas 73 y.o. male Patient presents with a chief complaint of Follow-up (2mo follow up sinus) Temp 98.7 degrees F (37.1 degrees C) (Temporal) Ht 6' Wt 99.7 kg (219 lb 14.4 oz) BMI 29.82 kg/m History of Presenting Illness: The patient/caregiver reports a history of complaint with the following features: He reports that he has had some recent sinus infections and congestion that seemed to resolve on their own with decongestant use. He has been suffering seasonal allergies, but these some better controlled recently. He is concerned that his sinus rinse is not clearing his sinuses fully. He denies any fevers or chills. He is on Xolair for his asthma that seems to be helping, Review of systems covering 10 systems is reviewed and pertinent positives and negatives are noted as above. Past Medical History: Diagnosis Date Abdominal pain Asthma CAD (coronary artery disease) Cholelithiasis Colitis Diabetes (HCC) Elevated PSA Esophageal reflux GERD (gastroesophageal reflux disease) Hypertension Impotence SUJEY (obstructive sleep apnea) Prostate cancer (HCC) Current Outpatient Medications: acetaminophen (TYLENOL) 325 MG tablet, 1 (one) tablet (325 mg total) ., Disp: , Rfl: albuterol (PROVENTIL) 2.5 mg /3 mL (0.083 %) nebulizer solution, INHALE 1 AMPULE BY MOUTH Q6H PRN, Disp: , Rfl: alirocumab (Praluent Pen) 75 mg/mL injection, Inject 1 mL (75 mg total) under the skin ., Disp: , Rfl: apixaban 5 mg Tab, Take 1 (one) tablet (5 mg total) by mouth 2 (two) times a day ., Disp: , Rfl: aspirin 81 MG EC tablet, Take 1 (one) tablet (81 mg total) by mouth daily ., Disp: , Rfl: clopidogreL (PLAVIX) 75 mg tablet, Take 1 (one) tablet (75 mg total) by mouth daily ., Disp: , Rfl: dapagliflozin propanediol (FARXIGA) 10 mg tablet, Take 1 (one) tablet (10 mg total) by mouth ., Disp: , Rfl: dicyclomine (BENTYL) 10 MG capsule, Take 2 (two) capsules (20 mg total) by mouth ., Disp: , Rfl: fluticasone propion-salmeteroL (Advair Diskus) 500-50 mcg/dose diskus inhaler, INHALE 1 (ONE) puff EVERY 12 HOURS, Disp: , Rfl: guaiFENesin (MUCINEX) 600 mg 12 hr tablet, Take 1 (one) tablet (600 mg total) by mouth 2 (two) times a day ., Disp: , Rfl: lansoprazole (PREVACID) 30 MG capsule, TAKE 1 CAPSULE BY MOUTH DAILY BEFORE BREAKFAST ONE-HALF HOUR BEFORE MEAL, Disp: , Rfl: montelukast (SINGULAIR) 10 mg tablet, Take 1 (one) tablet (10 mg total) by mouth every evening ., Disp: , Rfl: nitroGLYCERIN (NITROSTAT) 0.[address], [address] 1 (one) tablet (0.4 mg total) under the tongue every 5 (five) minutes as needed ., Disp: , Rfl: Repatha SureClick 140 mg/mL Pen, Inject 140 mg subcutaneously every 2 weeks., Disp: , Rfl: spironolactone (ALDACTONE) 25 MG tablet, Take 1 (one) tablet (25 mg total) by mouth daily ., Disp: , Rfl: tamsulosin (FLOMAX) 0.4 mg capsule, Take 1 (one) capsule (0.4 mg total) by mouth every night at bedtime ., Disp: , Rfl: losartan (COZAAR) 100 MG tablet, Take 1 (one) tablet (100 mg total) by mouth daily ., Disp: 30 tablet, Rfl: 11 mometasone (NASONEX) 50 mcg/actuation nasal spray, Instill 2 (two) sprays into each nostril daily ., Disp: 17 g, Rfl: 3 Allergies Allergen Reactions Gemfibrozil Unknown and Anaphylaxis Rosuvastatin Rash and Diarrhea Simvastatin Unknown, Other (See Comments) and Diarrhea Isosorbide Unknown Headaches, upset stomach, fatigue Penicillins Unknown passed out and felt like I had the flu Pt states he's no longer allergic to this, he's taken tests w/out issues. Pravastatin Unknown Past Surgical History: Procedure Laterality Date CABG CHOLECYSTECTOMY 09/25/2013 COLONOSCOPY ESOPHAGOGASTRODUODENOSCOPY HAND SURGERY Left I & D cyst PROSTATE BIOPSY 07/14/2022 Social History Socioeconomic History Marital status: Tobacco Use Smoking status: Never Smokeless tobacco: Never Substance and Sexual Activity Alcohol use: Not Currently Drug use: Never Family History Problem Relation Age of Onset Colon cancer Mother Ovarian cancer Mother Emphysema Father Colon cancer Brother Stroke Brother PHYSICAL EXAM: The patient was examined today 02/21/2024 with findings as follows: CONSTITUTIONAL: General Appearance: well-appearing, nontoxic, alert, no acute distress Communication: understanding at normal conversational tones, normal voicing, speech intelligible HEAD/FACE: Head: atraumatic, normocephalic, no lesions Facial Inspection: no lesions, healthy skin Facial Strength: motor strength normal, symmetric strength, symmetric movement Sinuses: no sinus tenderness, patent sinusotomy sites bilaterally with clear discharge Salivary Glands: no enlargements of parotid glands, no tenderness of parotid glands, no masses of parotid glands, clear salivary flow on palpation fro (more content not included)...[facility]05-20-2024 History of Present illness Narrative* Sam Fernando MD - 02/21/2024 4:16 PM EDT [facility] [address] [facility] [place] [address] [facility] [id number] Dept: [phone] Sam Fernando MD Denton Wesley 73 y.o. male Patient presents with a chief complaint of Follow-up (2mo follow up sinus) Temp 98.7 F (37.1 C) (Temporal) Ht 6' Wt 99.7 kg (219 lb 14.4 oz) BMI 29.82 kg/m History of Presenting Illness: The patient/caregiver reports a history of complaint with the following features: He reports that he has had some recent sinus infections and congestion that seemed to resolve on their own with decongestant use. He has been suffering seasonal allergies, but these some better controlled recently. He is concerned that his sinus rinse is not clearing his sinuses fully. He denies any fevers or chills. He is on Xolair for his asthma that seems to be helping, Review of systems covering 10 systems is reviewed and pertinent positives and negatives are noted as above. Past Medical History: Diagnosis Date Abdominal pain Asthma CAD (coronary artery disease) Cholelithiasis Colitis Diabetes (HCC) Elevated PSA Esophageal reflux GERD (gastroesophageal reflux disease) Hypertension Impotence SUJEY (obstructive sleep apnea) Prostate cancer (HCC) Current Outpatient Medications: acetaminophen (TYLENOL) 325 MG tablet, 1 (one) tablet (325 mg total) ., Disp: , Rfl: albuterol (PROVENTIL) 2.5 mg /3 mL (0.083 %) nebulizer solution, INHALE 1 AMPULE BY MOUTH Q6H PRN, Disp: , Rfl: alirocumab (Praluent Pen) 75 mg/mL injection, Inject 1 mL (75 mg total) under the skin ., Disp: , Rfl: apixaban 5 mg Tab, Take 1 (one) tablet (5 mg total) by mouth 2 (two) times a day ., Disp: , Rfl: aspirin 81 MG EC tablet, Take 1 (one) tablet (81 mg total) by mouth daily ., Disp: , Rfl: clopidogreL (PLAVIX) 75 mg tablet, Take 1 (one) tablet (75 mg total) by mouth daily ., Disp: , Rfl: dapagliflozin propanediol (FARXIGA) 10 mg tablet, Take 1 (one) tablet (10 mg total) by mouth ., Disp: , Rfl: dicyclomine (BENTYL) 10 MG capsule, Take 2 (two) capsules (20 mg total) by mouth ., Disp: , Rfl: fluticasone propion-salmeteroL (Advair Diskus) 500-50 mcg/dose diskus inhaler, INHALE 1 (ONE) puff EVERY 12 HOURS, Disp: , Rfl: guaiFENesin (MUCINEX) 600 mg 12 hr tablet, Take 1 (one) tablet (600 mg total) by mouth 2 (two) times a day ., Disp: , Rfl: lansoprazole (PREVACID) 30 MG capsule, TAKE 1 CAPSULE BY MOUTH DAILY BEFORE BREAKFAST ONE-HALF HOURBEFORE MEAL, Disp: , Rfl: montelukast (SINGULAIR) 10 mg tablet, Take 1 (one) tablet (10 mg total) by mouth every evening ., Disp: , Rfl: nitroGLYCERIN (NITROSTAT) 0.4 MG SL tablet, Place 1 (one) tablet (0.4 mg total) under the tongue every 5 (five) minutes as needed ., Disp: , Rfl: Repatha SureClick 140 mg/mL Pen, Inject 140 mg subcutaneously every 2 weeks., Disp: , Rfl: spironolactone (ALDACTONE) 25 MG tablet, Take 1 (one) tablet (25 mg total) by mouth daily ., Disp: , Rfl: tamsulosin (FLOMAX) 0.4 mg capsule, Take 1 (one) capsule (0.4 mg total) by mouth every night at bedtime ., Disp: , Rfl: losartan (COZAAR) 100 MG tablet, Take 1 (one) tablet (100 mg total) by mouth daily ., Disp: 30 tablet, Rfl: 11 mometasone (NASONEX) 50 mcg/actuation nasal spray, Instill 2 (two) sprays into each nostril daily ., Disp: 17 g, Rfl: 3 Allergies Allergen Reactions Gemfibrozil Unknown and Anaphylaxis Rosuvastatin Rash and Diarrhea Simvastatin Unknown, Other (See Comments) and Diarrhea Isosorbide Unknown Headaches, upset stomach, fatigue Penicillins Unknown passed out and felt like I had the flu Pt states he's no longer allergic to this, he's taken tests w/out issues. Pravastatin Unknown Past Surgical History: Procedure Laterality Date CABG CHOLECYSTECTOMY 09/25/2013 COLONOSCOPY ESOPHAGOGASTRODUODENOSCOPY HAND SURGERY Left I & D cyst PROSTATE BIOPSY 07/14/2022 Social History Socioeconomic History Marital status: Tobacco Use Smoking status: Never Smokeless tobacco: Never Substance and Sexual Activity Alcohol use: Not Currently Drug use: Never Family History Problem Relation Age of Onset Colon cancer Mother Ovarian cancer Mother Emphysema Father Colon cancer Brother Stroke Brother PHYSICAL EXAM: The patient was examined today 02/21/2024 with findings as follows: CONSTITUTIONAL: General Appearance: well-appearing, nontoxic, alert, no acute distress Communication: understanding at normal conversational tones, normal voicing, speech intelligible HEAD/FACE: Head: atraumatic, normocephalic, no lesions Facial Inspection: no lesions, healthy skin Facial Strength: motor strength normal, symmetric strength, symmetric movement Sinuses: no sinus tenderness, patent sinusotomy sites bilaterally with clear discharge Salivary Glands: no enlargements of parotid glands, no tenderness of parotid glands, no masses of parotid glands, clear salivary flow on palpation from Stensen's ducts, no duct stones of Stensen's duct, no enlargement of submandibular glands, no tenderness of submandibular glands, no masses of subma ndibular glands, clear salivary flow from Carole's ducts, no stones of Downey's ducts Temporomandibular Joint: no crepitus with motion, no tenderness on palpation, no trismus, motion symmetric EYES: Pupils: PERRLA, extra-ocular movements intact, no nystagmus, sclera white, no redness of eyes, no watering of eyes EARS: Bilateral External Ears: no pits, no tags Right External Ear: normally formed, no lesions, no mastoid tenderness Left External Ear: normally formed, no lesions, no mastoid tenderness Right External Auditory Canal: normal, healthy skin, no obstructing cerumen, no discharge Left External Auditory Canal: normal, healthy skin, no obstructing cerumen, no discharge Right Tympanic Membrane: normal landmarks, translucent, mobile to pneumatic otoscopy, no perforation Left Tympanic Membrane: normal landmarks, translucent, mobile to pneumatic otoscopy, no perforation Hearing: intact to spoken voice, intact to finger rub, Cage midline, Right Ear: Rinne AC>BC, Left Left Ear: Rinne AC>BC NOSE: Nasal Skin: no lesions, no lacerations, no scars Nasal Dorsum: symmetric with no visible or palpable deformities Nasal Tip: normal symmetric nasal tip, normal nasal valves Nasal Mucosa: normal, pink and moist Septum: not markedly deformed, midline, no exposed vessels, no bleeding, no septal granuloma Turbinates: normal size and conformation Nasopharynx: normal ORAL CAVITY/MOUTH: Lips, teeth, gums: normal lips, normal gums, dentition intact, no dental pain on palpation Oral Mucosa: normal, moist, no lesions Palate: normal hard palate, normal soft palate, symmetric palatal elevation Floor of Mouth: normal floor of mouth Tongue: normal tongue, no lesions, no edema, no masses, normal mucosa, mobile Tonsils: normal tonsils, symmetric, no lesions Posterior pharynx: normal NECK: Neck: no masses, trachea midline, normal range of motion, no cysts or pits, no tenderness to palpation Thyroid: normal thyroid, no enlargement, no tenderness, no nodules LYMPH NODES: Cervical: no palpable lymph node enlargement SKIN: General Appearance: no lesions, warm and dry, normal turgor, no bruising NEUROLOGICAL SYSTEM: Orientation: oriented to time, oriented to place, oriented to person Cranial Nerves: Cranial Nerves II-XII intact, normal facial movement PSYCHIATRIC: Mood and affect: normal mood, normal affect Assessment and Plan: He has some non-purulent nasal secretions that are suctioned clear. I see no recurrent sinus disease and his sinusotomy sites appear patent. Reassurance is offered. I suspect that his Xolair with help with his sinus disease as well as his asthma and he is reporting good control of these symptoms onthis therapy. 1. Non-seasonal allergic rhinitis, unspecified trigger Return if symptoms worsen or fail to improve. The patient and/or caregiver is to notify the office if no improvement or worsening of symptoms is noted prior to the scheduled follow-up for sooner evaluation. The patient and/or caregiver is able to state an understanding of these recommendations and is agreeable to the treatment plan. --Sam Fernando MD on 02/21/2024 at 4:29 PM An electronic signature was used to authenticate this note. * uArelia Be MA - 02/21/2024 3:41 PM EDT Review of Systems Constitutional: Negative. HENT: Positive for rhinorrhea, sinus pressure, sinus pain and tinnitus. Eyes: Negative. Respiratory: Negative. Cardiovascular: Negative. Gastrointestinal: Negative. Endocrine: Negative. Genitourinary: Negative. Musculoskeletal: Negative. Skin: Negative. Allergic/Immunologic: Negative. Neurological: Positive for light-headedness. Hematological: Bruises/bleeds easily. Psychiatric/Behavioral: Negative. documented in this [id number] Telephone encounter Note* Telephone Encounter - Heavenly Vasquez APRN.MANNY - 02/14/2024 2:38 PM EDT Please make sure follow-up appointment is with Dr. Pozo. Thanks, Heavenly Vasquez APRN.TECHNICAL SUPPORT CONSULTANT [facility] Work Phone: [phone] Miscellaneous Notes* Telephone Encounter - Heavenly Vasquez APRN.CNP - 02/14/2024 2:38 PM EDT Please make sure follow-up appointment is with Dr. Pozo. Thanks, Heavenly Vasquez APRN.TECHNICAL SUPPORT CONSULTANT documented in this encounter[facility]05-[facility]24 Telephone encounter Note * Telephone Encounter - Yamilet Norton - 02/14/2024 2:33 PM EDT PT had LVM 02/14/24 to cx and RS this appt. Called PT and LVM for him to call the office to schedule Yamilet Emmanuelel [facility]05-13-2024 Miscellaneous Notes* Telephone Encounter - Alexus Nortoncy - 02/14/2024 2:33 PM EDT PT had LVM 02/14/24 to cx and RS this appt. Called PT and LVM for him to call the office to schedule Yamilet Norton documented in this encounter[facility] Center05-[facility]24 History of Present illness Narrative* Josue Bedolla PT - 02/08/2024 1:56 PM EDT Program_ID:[id number] Access Code: [email or web address] URL: [email or web address]/ Date: 02-08-2024 Prepared By: Josue Bedolla Program Notes Exercises - Side Stepping with Resistance at Ankles - 2 x daily - 5-7 x weekly - 3 sets - reps - Standing Gluteal Sets - 2 x daily - 5-7 x weekly - 2 sets - 10 reps - Clamshell - 2 x daily - 5-7 x weekly - 2 sets - 10 reps - Sidelying Hip Abduction - 2 x daily - 5-7 x weekly - 2 sets - 6-8 reps * Josue Bedolla PT - 02/08/2024 1:17 PM EDT Images from the original note were not included. Episode Visit Count: 1 Therapist That Will Accept/Oversee The Plan Of Care: Josue Bedolla PT Start of Care Date: 02/08/24 Onset Date: 02/07/23 (Worsening the last couple months.) Plan of Care Certification Date: 02/08/24 Next Certification Due Date: 03/14/24 Patient Identified by Name and Date of : Yes REHABILITATION AND SPORTS THERAPY PHYSICAL THERAPY EVALUATION PLAN OF CARE: Assessment: Denton Wesley presents with chief complaint of B Hip Pain (R>L) that interferes with walking, walking in the house, walking in the community, physical activities, recreational activities, sleeping (Sidelying intermittently.) . He presents with impairments in ADL's, gait, independence in exercise, overall function, soft tissue healing, strength, symptom management, and tissue tenderness. PROMIS (Patient-Reported Outcomes Measurement Information System) scores were reviewed and identified as a rehabilitation concern. Prognosis for therapy is Good due to: current objective clinical presentation, within-session changes, good support system/ coping skills .He will benefit from skilled therapy services to meet the goals established for this plan of care as noted below. Goals for Episode of Care: created on 02/08/24 through 03/21/24 Patient reported outcome of physical function will increase T-score by a minimum 5 points. Weld in home exercise program. Patient will decrease pain rating by 2 points to meet minimal clinical important difference for numeric pain rating scale. Increased strength of B Hip to 5/5 during MMT for improved ADLs/IADLs. Normal gait without deficits. Pt will report no pain with ambulation in 8 weeks or less Patient Goals: Reduce pain during walking. Planned Interventions, Frequency, and Duration: Current Frequency: 1x/week Duration: 6 weeks Total Number of Visits Planned: 6 Planned Treatment Interventions: Therapeutic exercise (42127), Neuromuscular re- education (17137), Manual therapy (12761), Therapeutic activities (19098), Self- prison management (40296), Gait Training (39019), Patient/Family/Caregiver Education, Body Mechanics Training PLAN FOR NEXT VISIT: Assess response to HEP; lateral hip strengthening; add fwd & lateral step ups to tolerance. Patient demonstrates good understanding of plan of care and treatment. The above goals and plan of care were discussed and agreed upon by patient/family. SUBJECTIVE: Patient reports B Hip pain with prolonged walking that requires him to stop and rest before continuing on; notes short distances from parking lot to in clinic or assisted through grocery stopping needing to rest d/t pain. reports the R can get a sharp pain intermittently that he cannot attribute to anything. Gradual onset, however has gotten worse the last couple of months. Patient Goals: Reduce pain during walking. Functional Limitations: walking, walking in the house, walking in the community, physical activities, recreational activities, sleeping (Sidelying intermittently.) Prior Level of Function: Independent without limitations Relevant History Past Relevant Medical Conditions: Diabetes, Hypertension (Oct-Nov 2023 - Radiation for prostate.) Employment: [employer]: See Comment [employer] Occupation: 4-6Hrs a day, if he goes in. (As needed per patient, he chooses when he goes in.) Intake Information: Prescription present Previous Treatment: (Was prescribed steriod from [facility] however did not take it.) Falls Interview: No positive findings with falls interview Pain: Pain Pain Level: 5 Pain Location: Hip - Right, Hip - Left Description: Aching, Throbbing Frequency: Walking Post Treatment Pain Post Treatment Pain Level: No Change Post Treatment Pain Location: Hip - Left, Hip - Right PROMIS Scales 02/08/2024 Higher is Better Phys Func - Score 39 (moderate dysfunction) Phys Func - Percentile 14 Self-Eff Symptom - Score 45 (Average) Self-Eff Symptom - Percentile 31 T-scores: mean of general population = 50. 5 points is clinically meaningfully difference Percentiles provide an indication of how the patient's score ranks in relation to the general population. Higher percentile rankings indicate better function/quality of life. 50th percentile is the average of the general population and indicates half of respondents had a worse score. OBJECTIVE MEASURES WITH LEVEL OF FUNCTION: Posture / Alignment Posture: Increased lumbar lordosis Hip Observations R Hip Palpation Tenderness: (Glute Med produces sharp concordant pain and referral pattern; light tenderness to GT.) L Hip Palpation Tenderness: (Glute Med produces sharp concordant pain, decreased compared to R; light tenderness to GT.) LE PROM R LE PROM: Pain with full hip flexion; concordant pain with cross-body adduction; slight pain with hip IR/ER. L LE PROM : Pain with full hip flexion; concordant pain with cross-body adduction; slight pain withhip IR/ER. LE Strength R Hip Extension: 4+/5 R Hip Flexion (L2): 4+/5 (Light Pain.) R Hip ABduction: 3+/5 (Concordant Pain.) R Hip External Rotation: 4+/5 L Hip Extension: 4+/5 L Hip Flexion (L2): 4+/5 (Light Pain.) L Hip ABduction: 3+/5 (Concordant Pain.) L Hip External Rotation: 4+/5 Functional Strength Functional Strength: pelvis dropping during lateral heel tap testing bilat. Gait Weight Bearing Status: FWB Gait Observation: Mild Trendelenburg gait bilaterally; increased on R compared to LLE. Education: Education Learning/educational needs: Health promotion, Home exercise program, Plan of Care, Gait Training, Body Mechanics TREATMENT: PT Treatment Interventions: Therapeutic Exercise Evaluation Therapeutic Exercise: 1: *Lateral Monster Walks: 2 Laps of 10ft. GTB. 2: *S/L Hip ABD: 2x8. (Tactile cues for form for no rolling.) 3: *S/L Clamshells: 2x10 ea. 4: *Standing Glute Sets: 1x10, 10-sec holds. 5: *Discussed exam findings; spent rationalizing and explaining differential diagnosis today, and discussed treatment options including massage, soft tissue mobilization, exercise. 6: *Discussed importance of exercises and adherance to HEP as able; discussed & educated on parameters. Skilled Intervention: Patient was educated in proper exercise technique and purpose for exercises. Reviewed and educated patient on additions/changes for home exercise program as above (*). Skilled judgment was used in selection of appropriate interventions. Provided written instruction for home exercise program to facilitate proper performance and compliance. Correct performance of therapeutic exercises was facilitated with verbal, visual, and tactile cuing. Billing * Evaluation Low Complexity: 1 Unit Therapeutic Exercise Treatment Minutes: 23 Skilled Treatment Time Minutes (timed and untimed codes): 45 Total Session Time (minutes): 45 Session Start Time : 1315 Session Stop Time : 1400 Josue Bedolla PT documented in this encounter[facility] Center04-23-2024 Telephone encounter Note * Telephone Encounter - Sirisha Plaza RN - 01/25/2024 3:02 PM EDT [employer] RXBIN [id number] RxPCN [id number] RxGRP [id number] LORRAINE Submitted and approved. LORRAINE Case: [id number], Status: Approved, Coverage Starts on: 10/04/2023 12:00:00 AM, Coverage Ends on: 10/03/2024 12:00:00 AM. Questions? Contact .. Authorization Expiration Date: October 03, 2024. Notified [facility] and patient. [facility] Miscellaneous Notes* Telephone Encounter - Sirisha Plaza RN - 01/25/2024 3:02 PM EDT [employer] RXBIN [id number] RxPCN [id number] RxGRP [id number] LORRAINE Submitted and approved. LORRAINE Case: [id number], Status: Approved, Coverage Starts on: 10/04/2023 12:00:00 AM, Coverage Ends on: 10/03/2024 12:00:00 AM. Questions? Contact .. Authorization Expiration Date: October 03, 2024. Notified [facility] and patient. documented in this encounterUc Medical Center04-22-2024 Instructions* Patient Instructions* Jere Rust APRN.MANNY - 01/24/2024 3:27 PM EDT It was great to see you today, as we discussed: 1. For the fatigue we will change some blood work to see your blood counts and how your thyroid is working 2. Your blood pressure is elevated in the office an at home for which I would recommend starting hydrochlorothiazide which will help with the swelling and the blood pressure 3. Please have blood work done next week to check the above labs as well as kidney function an electrolytes on the new medication 4. Consider having a sleep study to assess for sleep apnea which can contribute to your symptoms 5. Follow up with Dr. Pacheco in 3-4 months or sooner if need arises documented in this encounterUc Medical Center04-22-2024 History of Present illness Narrative* Jere Rust APRN.MANNY - 01/24/2024 3:00 PM EDT Images from the original note were not included. [facility] [place] Vickie Soto Department of Cardiovascular Medicine SECTION OF CLINICAL CARDIOLOGY OUTPATIENT VISIT DATE January 24, 2024 OUTPATIENT VISIT TYPE ESTABLISHED PRIMARY CARE PHYSICIAN: Cali Cordero [address] [place] [address] CHIEF COMPLAINT: Follow up HISTORY OF PRESENT ILLNESS: Mr. Wesley is a 73 year old male with history of CAD, S/P PCI (2015), S/P CABG x2 (10/16/22), paroxysmal atrial fibrillation, HTN, HLD, and T2DM who presents today for a cardiovascular medicine follow-up visit. She was last seen in the office by Dr. Pacheco on 11/25/2023 at which time he continued to note palpitations but otherwise had no new or worsening complaints. His Plavix was discontinued and he was started on aspirin 81 mg daily. He additionally noted his insurance would not cover Praluent for which she was prescribed Repatha. Plan was for follow-up in 2 months time. Since his last office visit he has been dealing with progressively worsening fatigue and lower leg weakness. He has been undergoing radiation for prostate cancer and finished his last treatment in November. He notes some swelling in his lower extremities with a 7 lbs weight gain last week which is new for him. He notes occasional orthopnea but denies any other sort of shortness of breath. He notes occasional episodes of palpitation. He has lightheadedness and dizziness at times but denies any presyncope or syncope. He has had a poor appetite. He remains compliant on his Eliquis and did note some blood in his stool earlier this week. He is monitoring his blood pressure daily at home with SBPaveraging 140-160 mmHg. Subjective PAST MEDICAL HISTORY Diagnosis Date Abdominal pain, other specified site Asthma Awareness under anesthesia CAD (coronary artery disease) Cholelithiasis 09/25/2013 Colitis Diabetes mellitus (HCC) type 2 diet controlled Elevated prostate specific antigen (PSA) Esophageal reflux Gastroesophageal reflux Hypertension Impotence of organic origin Impotence Nocturia SUJEY (obstructive sleep apnea) Post-void dribbling Prostate cancer (HCC) RUQ abdominal pain 09/25/2013 PAST SURGICAL HISTORY Procedure Laterality Date CABG (2) VEIN GRAFTS & ARTERIAL GRAFT(S 10/16/2022 COLONOSCOPY FLX DX W/COLLJ SPEC WHEN PFRMD Colonoscopy Dr. Ferreira ESOPHAGOGASTRODUODENOSCOPY TRANSORAL DIAGNOSTIC EGD Dr. Ferreira LAPAROSCOPY SURG CHOLECYSTECTOMY 09/25/2013 PAST SURGICAL HISTORY OF I&D left hand PAST SURGICAL HISTORY OF Removal cyst on back PROSTATE BIOPSY GUKI 07/14/2022 STENT PLACEMENT 4 Stents Social History Tobacco Use Smoking status: Every Day Packs/day: .25 Types: Cigarettes Start date: 08/25/2023 Smokeless tobacco: Never Tobacco comments: Resumed last week after the of his spouse Vaping Use Vaping Use: Never used Substance Use Topics Alcohol use: Yes Comment: 1 beer in the evening occasionally Drug use: No FAMILY HISTORY Problem Relation Age of Onset Colon Cancer Mother Heart Mother Ovarian cancer Mother Prostate Cancer Brother Stroke Brother Emphysema Father ALLERGIES: ALLERGIES Allergen Reactions Gemfibrozil Intolerance Rosuvastatin Intolerance Simvastatin Intolerance Imdur [Isosorbide] Intolerance Headaches, upset stomach, fatigue Penicillins Intolerance passed out and felt like I had the flu Pt states he's no longer allergic to this, he's taken tests w/out issues. Pravastatin Myalgia MEDICATIONS: LORazepam (ATIVAN) 0.5 mg Take 1 tablet by mouth daily at bedtime for 30 days. apixaban (ELIQUIS) 5 mg tab(s) Take 1 tablet by mouth two times a day. aspirin, enteric coated (ECOTRIN LOW STRENGTH) 81 mg EC tablet Take 1 tablet by mouth once daily. tamsulosin (FLOMAX) 0.4 mg Take 1 capsule by mouth daily at bedtime. (Patient taking differently: Take 0.8 mg by mouth daily at bedtime. Two tabs at bedtime) fluticasone (FLONASE) 50 mcg/actuation nasal spray Use 2 Sprays in each nostril once daily. Rinse mouth after use. lansoprazole (PREVACID) 30 mg capsule Take 1 capsule by mouth daily before breakfast. 1/2 hr beforemeal. losartan (COZAAR) 100 mg tablet Take 1 tablet by mouth once daily. guaiFENesin (MUCINEX) 600 mg 12 hr tablet Take 1 tablet by mouth twice daily as needed for cold/allergy symptoms. loratadine (CLARITIN) 10 mg tablet Take 1 tablet by mouth once daily. nitroglycerin sublingual (NITROQUICK) 0.4 mg SL tablet Dissolve 0.4 mg under the tongue every 5 minutes as needed. ADVAIR DISKUS 500-50 mcg/dose dsdv INHALE 1 (ONE) puff EVERY 12 HOURS hydroCHLOROthiazide 12.5 mg capsule Take 1 capsule by mouth once daily. evolocumab (REPATHA SURECLICK) 140 mg/mL pen injector Inject 140 mg subcutaneously every 2 weeks. (Patient not taking: Reported on 01/24/2024) REVIEW OF SYSTEMS: CARD: See HPI GENERAL: Negative for: Weight loss or gain, Fever and/or Chills +Fatigue HEENT: Negative for: Headache, Impaired Vision, Glasses, Hearing Impairment, Ringing in Ears, Nosebleeds, Bleeding Gums NECK: Negative for: Swelling, Pain, Stiffness RESPIRATORY: Negative for: Cough, Blood in Sputum, Shortness of breath, Wheezing, Apnea GASTROINTESTINAL: Negative for: Nausea, Vomiting, Diarrhea, Blood in stool, or Dark black stools +BRBPR +Poor appetite MUSCULOSKELETAL: +Arthralgias +Lower extremity weakness NEUROLOGIC: Negative for: focal numbness/weakness, headaches, visual changes, ataxia, speech/language loss SKIN: Negative for: Rashes, Itching HEMATOLOGICAL/LYMPHATIC: Negative for: Easy bruising , Easy bleeding ENDOCRINE: Negative for: Heat or cold intolerance, Excessive sweating, Frequent urination, Frequentthirst Objective PHYSICAL EXAMINATION: BP 138/82 Pulse 82 Ht 180.3 cm (5' 11) Wt 98.9 kg (218 lb) SpO2 99% BMI 30.40 kg/m General: Well appearing, in no acute distress. Skin: No clubbing, no cyanosis. Eyes: Extra ocular movements intact Oropharynx: Teeth in good repair. Neck: No jugular venous distention, no carotid bruits, carotids have a normal upstroke. Lungs: Clear to auscultation bilaterally, no wheezing or rhonchi. Heart: Regular rhythm, S1, S2 normal, no S3, no S4, no heaves, no rub and no murmur. 1+ BLE edema .Grade 2/4 distal pulses bilaterally. Abdomen: Soft, nontender, bowel sounds normal, no bruits. Neuro: Oriented to person, place and time, alert, cooperative, gait coordinated. CARDIOVASCULAR MEDICINE TESTING: No Cardiovascular testing perfomed today. Last EKG Result Conclusion EKG Collected: 11/25/2023 10:44 PM (Final result) Impression: NORMAL SINUS RHYTHM POSSIBLE LEFT ATRIAL ENLARGEMENT LEFT VENTRICULAR HYPERTROPHY ABNORMAL ECG NO PREVIOUS ECGS AVAILABLE Confirmed by MD PACHECO GREGORY () on 11/30/2023 8:24:[address] Result Conclusion CT CHEST WO IVCON Exam End: 03/18/2023 3:36 PM (Final result) Impression: IMPRESSION: Stable bilateral lung nodules. No new or enlarging nodules identified. No progressive lymphadenopathy. 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 PLAN AND RECOMMENDATIONS: Coronary artery disease - S/P PCI with IRENE to PLB of the RCA and PTCA to prox-PDA in 2016 - S/P CABG x2 (ACEVEDO-LAD & SVG-Circ) with Dr. Colmenares at [facility] on 10/16/2022 - Chest pain previously - Patient appears compensated from cardiac standpoint - Continue ASA, Statin and BB as currently ordered Paroxysmal atrial fibrillation - Multiple episodes post op CABG - Continued daily episodes of palpitations (No correlation on Zio as below) - Zio event monitor 01/2023: Avg HR 78 min HR 54, no AF, rare ectopy, symptoms correlating with NSR - [id number] Score of 4 (Age, HTN, DM, & Vasc) - Anticoagulated with Eliquis 5 mg BID - Initially placed on Amiodarone and Metoprolol tartrate >>Significant bradycardia in the 30's and amiodarone and BB discontinued Essential hypertension - Suboptimal control on losartan - Encouraged dietary sodium restriction/DASH diet - Reviewed risks of HTN and principles of treatment - Goal of BP <130/80 - HCTZ 12.5 mg daily - BMP 1 week Pure hypercholesterolemia - Currently on Repatha - Documented intolerance to statins due to severe myalgias - Last lipid panel 03/2023 with LDL 126 - Has not been taking Repatha as need prior auth Type 2 diabetes mellitus - Most recent A1c 6.9 Tobacco use - Current 4-5 cigarettes per day smoker - Cessation advised Fatigue - Progressively worsening - Accompanied with lower extremity weakness - Recent BRBPR on Eliquis - Echo 10/2023 with no significant findings - BMP, CBC, Ferritin, Iron +TIBC, vitamin D, TSH - Consider PSG CONCLUSION: Patient presents today for follow-up with multiple generalized complaints most concerning to him fatigue and worsening lower extremity weakness. He has not had blood work completed in some time thus we will obtain generalized labs including CBC as he does note some BRBPR lately on long-term anticoagulation. Would also consider PSG in the future however he would like to first see results of blood work before pursuing this. He was additionally encouraged to follow-up with his PCP given his multiple generalized complaints including lower extremity weakness. He notes a 7 lbs weight gain and lower extremity edema. Recently completed [facility] the [facility] demonstrates EF 55% and grade I LVDD with no significant valvular disease. Given his lower extremity edema and uncontrolled blood pressure we will start HCTZ 12.5 mg daily. He will have BMP in 1 week. He was recently changed from Praluent to Repatha due to insurance issues however has not received the Repatha as he needs a prior authorization and was unsure how to get this. He continues to use tobacco for which cessation was advised. He should continue to actively engage in cardiovascular risk factor modification and follow up withDr. Junior in 3-4 months, or sooner should need arise and pending lab work results. CONTACT INFORMATION: Jere Rust APRN.MANNY Cardiology Nurse Practitioner Section of Regional Cardiology [facility] Dept of Cardiovascular Medicine [facility] [place] [address] Office Office This note was partially generated using ADmantX voice recognition system and may contain errors related to that system including grammar, punctuation, spelling, and words that may be inappropriate documented in this encounterU[facility] Center04-[facility]24 History of Present illness Narrative* Roberto Van RT(R) - 01/10/2024 11:20 AM EDT Radiology Service Progress Note PATIENT NAME: Denton Wesley DATE OF SERVICE: January 10, 2024 TIME: 11:25 AM PATIENT IDENTITY VERIFICATION COMPLETED USING TWO (2) IDENTIFIERS: Name and Date of confirmedby patient verbally. FALL SCREENING: Has the patient had 2 falls in the last year or 1 fall with injury or currently using an Ambulatory Assistive Device (Walker, Cane, Wheelchair, Crutches, etc.)? No PATIENT GENDER DATA: Male PATIENT RELEVANT IMPLANT DATA REVIEWED: Not Applicable PATIENT PRESENTS WITH AN IMPLANTABLE OR ATTACHED HEAD LINEMAN: No RADIOLOGY DEPARTMENT: General X-ray: Exam(s) Completed: Pelvis X-Ray: Pelvis with Hip Bilateral PERIPHERAL IV DATA: Not applicable SIGNED BY: RT Angelito(R) January 10, 2024 11:25 AM documented in this encounterUc Medical Center04-08-2024 Instructions* Patient Instructions* Robson Robertson APRN.CNP - 01/10/2024 11:03 AM EDT Get xray today Start prednisone taper. Take with food Schedule with PHYSICAL THERAPY If not improvement in 3-4 weeks, let me know and we can refer to orthopedics. Robson Robertson APRN.CNP documented in this encounterUc [facility] Center04-08-2024 History of Present illness Narrative* Robson Robertson APRN.CNP - 01/10/2024 10:50 AM EDT Chief Complaint Patient presents with: Hip Pain: ANGELA hips x 2 months HPI Denton Wesley is a 73 year old male who presents here today for Above Complaints. Patient complains of: hip pain. Duration: approximately 2 months Location: bilateral, usually more in the groin area Associated Symptoms: Sharp pain more today in the right hip Aggravating factors:walking Things that improve symptoms: Not walking, resting Had problems with walking long [place] theme park. Reviewing patient's chart, I do not see any imaging of his hips. Requesting a refill of Ativan. Was given a small amount a while back after the of his . Uses occasionally when he wakes up at night and has difficulty with falling asleep. Past medical history, appointments, medications, allergies reviewed. EXAM: BP 130/80 Pulse 80 Resp 16 Wt 100.2 kg (220 lb 12.8 oz) SpO2 100% BMI 30.80 kg/m General Appearance: Well appearing, alert, in no acute distress, well-hydrated, well nourished.. Musculoskeletal: HIP: Location: Right Redness: No. Warmth: No. Range of motion: Restricted flexion Tenderness over trochanteric bursa: yes Pain with movement: Yes., crossbody HIP: Location: Left Redness: No. Warmth: No. Range of motion: Intact Tenderness over trochanteric bursa: Yes Pain with movement: Yes, crossbody ASSESSMENT/PLAN: 1. Bilateral hip pain - ICD9: 719.45, ICD10: M25.551, M25.552 (primary diagnosis) -Bursitis versus OA, could be a little of both at this point given exam findings. Get x-ray today. Start prednisone taper. See physical therapy for few weeks to see if we can get improvement. If no improvement, refer to orthopedics. - XR HIP BILATERAL 5V PEL/AP/LAT EACH HIP - CONSULT TO PHYSICAL THERAPY - PREDNISONE 10 MG TABLET 2. Grief reaction - ICD9: 309.0, ICD10: F43.21 -Okay to continue with as needed use - LORAZEPAM 0.5 MG TABLET Robson Robertson APRN.TECHNICAL SUPPORT CONSULTANT This note was partly generated using ADmantX voice recognition dictation and may contain some misspelled or inaccurate words missed on review. documented in this encounterUc Medical Center03-21-2024 History of Present illness Narrative* Ángela Rasmussen MD - 12/23/2023 3:29 PM EDT AMBULATORY TELEPHONE VISIT Denton Wesley has consented to this telephone encounter. Persons Present: patient Chief Complaint/Reason: Four week follow-up after radiation treatment. HPI: Clinical stage IIC, T1c N0, prostate adenocarcinoma with Erica score 7(4+3), grade group 3, and PSA 7.40 ng/mL. Decipher=0.92 (high risk. He was started on Lupron by Dr. Jania Pozo on 07/30/23. s/p radiation treatment finished on 11/29/23. He is doing well without any specific new complaints. He reports that diarrhea resolved. He continues to have increased urinary hesitancy and nocturia with some improvement since he finished radiation treatment. Data Reviewed: None. Assessment: He is recovering from acute radiation GI and effects. Plan: Continue Flomax 0.8 mg/day until his urinary symptoms improve back to his baseline. He is scheduled to see his urologist, Dr. Pozo next month with PSA. Total Time Spent: 5 minutes Ángela Rasmussen MD documented in this encounterUc Medical Center03-20-2024 Miscellaneous Notes* Telephone Encounter - Sirisha Plaza RN - 12/22/2023 11:08 AM EDT Asked to triage pt for attempt to make appointment for chest pain. Called pt, no answer, left VM requesting call back. VERONICA 11/25/[address] Pacheco HISTORY OF PRESENT ILLNESS: Mr. Wesley is a 73 year old male. The patient returns [place]osse history of coronary disease status post remote stenting to the RCA followed by eventual coronary bypass grafting x 2 approximately 13 months ago. Additional history includes postoperative atrial fibrillation, hypertension, hyperlipidemia and prediabetes. He unfortunately is in the throes of treatment for prostate cancer with radiation at this time. He denies chest discomfort, dyspnea, orthopnea, paroxysmal nocturnal dyspnea, near-syncope or syncope. He continues to have palpitations once weekly and describes with flip-flops. He recent underwent telemetry monitoring for which symptoms did not yield any discernible dysrhythmia. EKG performed today demonstrates normal sinus rhythm at 74 bpm with possible LVH and left atrial enlargement. Similar to previous. documented in this encounterUc Medical Center02-26-2024 History of Present illness Narrative* Ángela Rasmussen MD - 11/29/2023 12:00 AM EST DENTON WESLEY [id number] : 1950 11/29/2023 [facility] Department of Radiation Oncology RADIATION ONCOLOGY - COMPLETION NOTE DATE OF SIMULATION: 10/11/23 DATES OF TREATMENT: 10/18/23 - 11/29/23 UNIT: W_[facility]BEAM AREA TREATED: Pelvis/prostate/SV DISEASE: Clinical stage IIC, T1c N0, prostate adenocarcinoma with Erica score 7(4+3), grade group3, and PSA 7.40 ng/mL. Decipher=0.92 (high risk. He was started on Lupron by Dr. Jania Pozo on07/30/23. DELIVERED DOSE: 7000 cGy in 28 fractions treating to the 97.4% isodose line with 10MV and 3 vmat cardona. ELAPSED TIME: 42 days. TOLERANCE/ RESPONSE: He has increased urinary hesitancy and dysuria. Mild diarrhea. UA and urine culture were negative for UTI. He is on Flomax 0.8mg/day. REMARKS: He tolerated radiation treatment well overall. Four week follow-up with pa. Staff Physician ÁNGELA RASMUSSEN M.D. / 42:22 PM Electronically Signed cc: Cali Cordero [address] [place] [address] Jania Pozo documented in this encounterUc Medical Center02-22-2024 NoteHNO ID: [id number] Author: JUAN A PACHECO DO Service: ? Author Type: Physician Type: Progress Notes Filed: 11/25/2023 11:06 Note Text: [facility] SECTION OF [facility]AL CARDIOLOGY [facility] OUTPATIENT VISIT DATE November 25, 2023 PRIMARY CARE PHYSICIAN: Cali Cordero [address] [place] [address] HISTORY OF PRESENT ILLNESS: Mr. Wesley is a 73 year old male. The patient returns Fosse history of coronary disease status post remote stenting to the RCA followed by eventual coronary bypass grafting x 2 approximately 13 months ago. Additional history includes postoperative atrial fibrillation, hypertension, hyperlipidemia and prediabetes. He unfortunately is in the throes of treatment for prostate cancer with radiation at this time. He denies chest discomfort, dyspnea, orthopnea, paroxysmal nocturnal dyspnea, near-syncope or syncope. He continues to have palpitations once weekly and describes with flip-flops. He recent underwent telemetry monitoring for which symptoms did not yield any discernible dysrhythmia. EKG performed today demonstrates normal sinus rhythm at 74 bpm with possible LVH and left atrial enlargement. Similar to previous. PLAN AND RECOMMENDATIONS: The patient remained stable without symptoms that would suggest angina or cardiac decompensation on his current optimal medical regimen which we recommend continuing with the following changes below. Currently he should be on twice daily Eliquis. We discussed that with him and correct as such. We have discontinued Plavix in favor of aspirin lifelong 81 mg daily. Lastly, he has had a statin allergy for which he was tried on Praluent which he states his insurance will only pay for Repatha. We therefore wrote for that medication to start as soon as he obtains it. Heart rate and blood pressure otherwise appear favorable for which we made no additions or changes to his current optimal medical regimen which which should continue as planned. He continues to have rare palpitations for which we will not add medications at this time as we did discuss the need for improvement of diet and lifestyle which may help suppress such. If not, we would consider the addition of a low-dose beta-ari. We will follow-up with him in 2 months time for repeat evaluation. Dietary and lifestyle modification was otherwise reemphasized to facilitate risk factor reduction. Vitals: BP 126/78 Pulse 74 Ht 180.3 cm (5' 11) Wt 98.3 kg (216 lb 11.4 oz) SpO2 99% BMI 30.23 kg/m? Physical Exam Vitals reviewed. Constitutional: General: He is not in acute distress. Appearance: He is well-developed. He is not diaphoretic. HENT: Head: Normocephalic and atraumatic. Right Ear: External ear normal. Left Ear: External ear normal. Nose: Nose normal. Eyes: General: No scleral icterus. Right eye: No discharge. Left eye: No discharge. Pupils: Pupils are equal, round, and reactive to light. Neck: Thyroid: No thyromegaly. Vascular: No JVD. Cardiovascular: Rate and Rhythm: Normal rate and regular rhythm. Heart sounds: No murmur heard. No friction rub. No gallop. Pulmonary: Effort: Pulmonary effort is normal. No respiratory distress. Breath sounds: Normal breath sounds. No wheezing or rales. Abdominal: General: Bowel sounds are normal. Palpations: Abdomen is soft. Musculoskeletal: General: Normal range of motion. Cervical back: Neck supple. Skin: General: Skin is warm and dry. Coloration: Skin is not pale. Neurological: Mental Status: He is alert and oriented to person, place, and time. Cranial Nerves: No cranial nerve deficit. Psychiatric: Mood and Affect: Mood is not anxious or depressed. Behavior: Behavior normal. Thought Content: Thought content normal. Judgment: Judgment normal. Review of Systems Constitutional: Negative for activity change, appetite change, fatigue and unexpected weight change. HENT: Negative for ear pain and trouble swallowing. Eyes: Negative for pain and visual disturbance. Respiratory: Negative for chest tightness and shortness of breath. Cardiovascular: Positive for palpitations. Negative for chest pain and leg swelling. Gastrointestinal: Negative for abdominal pain and blood in stool. Endocrine: Negative for cold intolerance and heat intolerance. Genitourinary: Negative for dysuria, hematuria and scrotal swelling. Musculoskeletal: Negative for arthralgias and myalgias. Skin: Negative for pallor and rash. Allergic/Immunologic: Negative for immunocompromised state. Neurological: Negative for dizziness, syncope and light-headedness. Hematological: Negative for adenopathy. Does not bruise/bleed easily. Psychiatric/Behavioral: Negative for sleep disturbance. The patient is not nervous/anxious. PAST MEDICAL HISTORY Diagnosis Date Abdominal pain, other specified site Asthma Awarenes (more content not included)...[id number] History of Present illness Narrative* Juan A Pacheco, - 11/25/2023 10:43 AM EST Images from the original note were not included. [facility] SE[facility]IOLOGY [facility] OUTPATIENT VISIT DATE November 25, 2023 PRIMARY CARE PHYSICIAN: Cali Cordero [address] [place] [address] HISTORY OF PRESENT ILLNESS: Mr. Wesley is a 73 year old male. The patient returns Fosse history of coronary disease status post remote stenting to the RCA followed by eventual coronary bypass grafting x 2 approximately 13 months ago. Additional history includes postoperative atrial fibrillation, hypertension, hyperlipidemia and prediabetes. He unfortunately is in the throes of treatment for prostate cancer with radiation at this time. He denies chest discomfort, dyspnea, orthopnea, paroxysmal nocturnal dyspnea, near-syncope or syncope. He continues to have palpitations once weekly and describes with flip-flops. He recent underwent telemetry monitoring for which symptoms did not yield any discernible dysrhythmia. EKG performed today demonstrates normal sinus rhythm at 74 bpm with possible LVH and left atrial enlargement. Similar to previous. PLAN AND RECOMMENDATIONS: The patient remained stable without symptoms that would suggest angina or cardiac decompensation onhis current optimal medical regimen which we recommend continuing with the following changes below.Currently he should be on twice daily Eliquis. We discussed that with him and correct as such. We have discontinued Plavix in favor of aspirin lifelong 81 mg daily. Lastly, he has had a statin allergy for which he was tried on Praluent which he states his insurance will only pay for Repatha. We therefore wrote for that medication to start as soon as he obtains it. Heart rate and blood pressure otherwise appear favorable for which we made no additions or changes to his current optimal medical regimen which which should continue as planned. He continues to have rare palpitations for which we will not add medications at this time as we did discuss the need for improvement of diet and lifestylewhich may help suppress such. If not, we would consider the addition of a low-dose beta-ari. Wewill follow-up with him in 2 months time for repeat evaluation. Dietary and lifestyle modification was otherwise reemphasized to facilitate risk factor reduction. Vitals: BP 126/78 Pulse 74 Ht 180.3 cm (5' 11) Wt 98.3 kg (216 lb 11.4 oz) SpO2 99% BMI 30.23 kg/m Physical Exam Vitals reviewed. Constitutional: General: He is not in acute distress. Appearance: He is well-developed. He is not diaphoretic. HENT: Head: Normocephalic and atraumatic. Right Ear: External ear normal. Left Ear: External ear normal. Nose: Nose normal. Eyes: General: No scleral icterus. Right eye: No discharge. Left eye: No discharge. Pupils: Pupils are equal, round, and reactive to light. Neck: Thyroid: No thyromegaly. Vascular: No JVD. Cardiovascular: Rate and Rhythm: Normal rate and regular rhythm. Heart sounds: No murmur heard. No friction rub. No gallop. Pulmonary: Effort: Pulmonary effort is normal. No respiratory distress. Breath sounds: Normal breath sounds. No wheezing or rales. Abdominal: General: Bowel sounds are normal. Palpations: Abdomen is soft. Musculoskeletal: General: Normal range of motion. Cervical back: Neck supple. Skin: General: Skin is warm and dry. Coloration: Skin is not pale. Neurological: Mental Status: He is alert and oriented to person, place, and time. Cranial Nerves: No cranial nerve deficit. Psychiatric: Mood and Affect: Mood is not anxious or depressed. Behavior: Behavior normal. Thought Content: Thought content normal. Judgment: Judgment normal. Review of Systems Constitutional: Negative for activity change, appetite change, fatigue and unexpected weight change. HENT: Negative for ear pain and trouble swallowing. Eyes: Negative for pain and visual disturbance. Respiratory: Negative for chest tightness and shortness of breath. Cardiovascular: Positive for palpitations. Negative for chest pain and leg swelling. Gastrointestinal: Negative for abdominal pain and blood in stool. Endocrine: Negative for cold intolerance and heat intolerance. Genitourinary: Negative for dysuria, hematuria and scrotal swelling. Musculoskeletal: Negative for arthralgias and myalgias. Skin: Negative for pallor and rash. Allergic/Immunologic: Negative for immunocompromised state. Neurological: Negative for dizziness, syncope and light-headedness. Hematological: Negative for adenopathy. Does not bruise/bleed easily. Psychiatric/Behavioral: Negative for sleep disturbance. The patient is not nervous/anxious. PAST MEDICAL HISTORY Diagnosis Date Abdominal pain, other specified site Asthma Awareness under anesthesia CAD (coronary artery disease) Cholelithiasis 09/25/2013 Colitis Diabetes mellitus (HCC) type 2 diet controlled Elevated prostate specific antigen (PSA) Esophageal reflux Gastroesophageal reflux Hypertension Impotence of organic origin Impotence Nocturia SUJEY (obstructive sleep apnea) Post-void dribbling Prostate cancer (HCC) RUQ abdominal pain 09/25/2013 PAST SURGICAL HISTORY Procedure Laterality Date CABG (2) VEIN GRAFTS & ARTERIAL GRAFT(S 10/16/2022 COLONOSCOPY FLX DX W/COLLJ SPEC WHEN PFRMD Colonoscopy Dr. Ferreira ESOPHAGOGASTRODUODENOSCOPY TRANSORAL DIAGNOSTIC EGD Dr. Ferreira LAPAROSCOPY SURG CHOLECYSTECTOMY 09/25/2013 PAST SURGICAL HISTORY OF I&D left hand PAST SURGICAL HISTORY OF Removal cyst on back PROSTATE BIOPSY GUKI 07/14/2022 STENT PLACEMENT 4 Stents Social History Tobacco Use Smoking status: Every Day Packs/day: .25 Types: Cigarettes Start date: 08/25/2023 Smokeless tobacco: Never Tobacco comments: Resumed last week after the of his spouse Vaping Use Vaping Use: Never used Substance Use Topics Alcohol use: Yes Comment: 1 beer in the evening occasionally Drug use: No FAMILY HISTORY Problem Relation Age of Onset Colon Cancer Mother Heart Mother Ovarian cancer Mother Prostate Cancer Brother Stroke Brother Emphysema Father ALLERGIES Allergen Reactions Gemfibrozil Intolerance Rosuvastatin Intolerance Simvastatin Intolerance Imdur [Isosorbide] Intolerance Headaches, upset stomach, fatigue Penicillins Intolerance passed out and felt like I had the flu Pt states he's no longer allergic to this, he's taken tests w/out issues. Pravastatin Myalgia CURRENT MEDICATIONS: tamsulosin (FLOMAX) 0.4 mg Take 1 capsule by mouth daily at bedtime. fluticasone (FLONASE) 50 mcg/actuation nasal spray Use 2 Sprays in each nostril once daily. Rinse mouth after use. lansoprazole (PREVACID) 30 mg capsule Take 1 capsule by mouth daily before breakfast. 1/2 hr beforemeal. losartan (COZAAR) 100 mg tablet Take 1 tablet by mouth once daily. apixaban (ELIQUIS) 5 mg tab(s) Take 1 tablet by mouth twice daily. (Patient taking differently: Take 5 mg by mouth once daily.) clopidogrel (PLAVIX) 75 mg tablet Take 1 tablet by mouth once daily. guaiFENesin (MUCINEX) 600 mg 12 hr tablet Take 1 tablet by mouth twice daily as needed for cold/allergy symptoms. loratadine (CLARITIN) 10 mg tablet Take 1 tablet by mouth once daily. nitroglycerin sublingual (NITROQUICK) 0.4 mg SL tablet Dissolve 0.4 mg under the tongue every 5 minutes as needed. alirocumab (PRALUENT PEN) 75 mg/mL pen Inject 1 mL subcutaneously every other week. ADVAIR DISKUS 500-50 mcg/dose dsdv INHALE 1 (ONE) puff EVERY 12 HOURS Juan A Pacheco DO, FACC, FACOI Medical Anthropology Director, [facility] Medical Anthropology Director, [facility] Medical Anthropology Director, [facility] Medical Anthropology Director, [facility] Medical Anthropology Director, [facility] Clinical Business Banking Sales Assistant Profressor of Medicine, [facility] Staff Accounts Receivable Bookkeeper, Vickie Nichols Department of Cardiovascular Medicine/Heart and Vascular [place], [facility] Please note: This note has been produced using speech recognition software and may contain errors related to that system including neris, punctuation, spelling, words, gender and phrases that may be inappropriate. documented in this encounterUc Medical Center02-20-2024 History of Present illness Narrative* Ángela Rasmussen MD - 11/23/2023 2:58 PM EST Radiation Oncology - On Treatment Review (OTR) Note PATIENT NAME: Denton Wesley PATIENT DIAGNOSIS: Clinical stage IIC, T1c N0, prostate adenocarcinoma with Eugene score 7(4+3), grade group 3, and PSA 7.40 ng/mL. Decipher=0.92 (high risk) COURSE: definitive AREA TREATED: Pelvis/prostate/SV CURRENT DOSE: 6000 cGy in 24 fx PLANNED DOSE: 7000 cGy in 28 fx SUBJECTIVE: He has increased urinary hesitancy and dysuria. Mild diarrhea. No significant changes in his symptoms compared to last week. EXAM: KPS: 90 General Appearance: Alert and oriented. No acute distress. IMAGING/LAB RESULTS: UA and urine culture were negative for UTI. Treatment chart checked: Yes Patient treatment site reviewed and verified:Yes Port films reviewed and current:Yes Medications started: Continue Flomax to 0.4mg bid. ASSESSMENT/PLAN: Clinically stable. Toxicity within expected parameters. Continue radiation treatment as planned. Ángela Rasmussen MD documented in this encounterUc Medical Center02-20-2024 Nurse Note* Tiara Mancilla RN - 11/23/2023 2:49 PM EST Radiation Therapy - Nursing Note (OTV) PATIENT NAME: Denotn Wesley PATIENT November 23, 2023 [facility] FACILITY/LOCATION: [facility] NOTE TYPE: PROSTATE - MALE PELVIS Subjective Data bladder discomfort still continues Additional Data Do you want to see a Thaw Shed Heater Tender? No Status: Patient is male Stress Scale: On a scale of 0 to 10, what number best describes how much distress you have experienced in the past week?(0 being no distress and 10 being extreme distress) 7 Social work notified: Pt denied need to see protective services social worker at this time. Nursing Assessment Fatigue: increased fatigue over baseline but not altering normal activities Appetite: good Nutritional Intake: Regular oral intake. Weight Gain/Loss: No Ambulatory weight history: Last 6 Encounter Wt Readings: Date: Wt: 09/24/2023 100.2 kg (220 lb 12.8 oz) 09/03/2023 101.2 kg (223 lb 3.2 oz) 09/02/2023 101.4 kg (223 lb 8 oz) 07/30/2023 102.1 kg (225 lb) 06/29/2023 102.1 kg (225 lb) 05/25/2023 106.6 kg (235 lb) Nausea:None Vomiting: None Bowel Function: loose stools daily Erythema/Hyperpigmentation:none Desquamation:none Rash:none Skin Care: Aquaphor Skin Sensation: Within Normal Limits Focused Assessment PROSTATE - MALE PELVIS: Rectal bleeding: No. Rectal pain: No. Bladder function: urgency, frequency,painful urination. Urinary frequency (D/N): some increase/some increase. SIGNED by: Tiara Mancilla RN documented in this encounterUc Medical Center02-13-2024 History of Present illness Narrative* Ángela Rasmussen MD - 11/16/2023 2:58 PM EST Radiation Oncology - On Treatment Review (OTR) Note PATIENT NAME: Denton Wesley PATIENT DIAGNOSIS: Clinical stage IIC, T1c N0, prostate adenocarcinoma with Erica score 7(4+3), grade group 3, and PSA 7.40 ng/mL. Decipher=0.92 (high risk) COURSE: definitive AREA TREATED: Pelvis/prostate/SV CURRENT DOSE: 4750 cGy in 19 fx PLANNED DOSE: 7000 cGy in 28 fx SUBJECTIVE: He has increased urinary hesitancy and dysuria. Mild diarrhea. EXAM: KPS: 90 General Appearance: Alert and oriented. No acute distress. IMAGING/LAB RESULTS: UA and urine culture. Treatment chart checked: Yes Patient treatment site reviewed and verified:Yes Port films reviewed and current:Yes Medications started: Continue Flomax to 0.4mg bid. ASSESSMENT/PLAN: Clinically stable. Toxicity within expected parameters. Continue radiation treatment as planned. Ángela Rasmussen MD documented in this encounterUc Medical Center02-13-2024 Nurse Note* Tiara Mancilla RN - 11/16/2023 2:41 PM EST Radiation Therapy - Nursing Note (OTV) PATIENT NAME: Denton Wesley PATIENT November 16, 2023 [facility] FACILITY/LOCATION: [facility] NURSING NOTE TYPE: PROSTATE - MALE PELVIS Subjective Data increasing dysuria Additional Data Do you want to see a Thaw Shed Heater Tender? No Status: Patient is male Stress Scale: On a scale of 0 to 10, what number best describes how much distress you have experienced in the past week?(0 being no distress and 10 being extreme distress) 5 Social work notified: Pt denied need to see protective services social worker at this time. Nursing Assessment Fatigue: moderate; causing difficulty performing some activities Appetite: good Nutritional Intake: Regular oral intake. Weight Gain/Loss: No Ambulatory weight history: Last 6 Encounter Wt Readings: Date: Wt: 09/24/2023 100.2 kg (220 lb 12.8 oz) 09/03/2023 101.2 kg (223 lb 3.2 oz) 09/02/2023 101.4 kg (223 lb 8 oz) 07/30/2023 102.1 kg (225 lb) 06/29/2023 102.1 kg (225 lb) 05/25/2023 106.6 kg (235 lb) Nausea:None Vomiting: None Bowel Function: diarrhea multiple times a day, three times today afraid to take Imodium for fear ofconstipation,abdomen cramping too Erythema/Hyperpigmentation:none Desquamation:none Rash:none Skin Care: Aquaphor Skin Sensation: Within Normal Limits Focused Assessment PROSTATE - MALE PELVIS: Rectal bleeding: No. Rectal pain: No. Bladder function: urgency, nocturia, painful urination. Urinary frequency (D/N): multiple/increased. SIGNED by: Tiara Mancilla RN documented in this encounterUc Medical Center02-09-2024 Miscellaneous Notes* Telephone Encounter - Leonor Orona - 11/12/2023 1:19 PM EST Patient is rescheduled documented in this encounterUc Medical Center02-07-2024 History of Present illness Narrative* Ángela Rasmussen MD - 11/10/2023 2:58 PM EST Radiation Oncology - On Treatment Review (OTR) Note PATIENT NAME: Denton Wesley PATIENT DIAGNOSIS: Clinical stage IIC, T1c N0, prostate adenocarcinoma with Erica score 7(4+3), grade group 3, and PSA 7.40 ng/mL. Decipher=0.92 (high risk) COURSE: definitive AREA TREATED: Pelvis/prostate/SV CURRENT DOSE: 3750 cGy in 15 fx PLANNED DOSE: 7000 cGy in 28 fx SUBJECTIVE: He has increased urinary hesitancy. No significant changes yet after increasing Flomax to 0.8mg/day. EXAM: KPS: 90 General Appearance: Alert and oriented. No acute distress. IMAGING/LAB RESULTS: None Treatment chart checked: Yes Patient treatment site reviewed and verified:Yes Port films reviewed and current:Yes Medications started: Continue Flomax to 0.4mg bid. ASSESSMENT/PLAN: Clinically stable. Toxicity within expected parameters. Continue radiation treatment as planned. Ángela Rasmussen MD documented in this encounterUc Medical Center02-07-2024 Nurse Note* Tomás Mckeon RN - 11/10/2023 2:53 PM EST Radiation Therapy - Nursing Note (OTV) PATIENT NAME: Denton Wesley PATIENT November 10, 2023 [facility] FACILITY/LOCATION: [facility] NOTE TYPE: PROSTATE - MALE PELVIS Subjective Data No complaints Additional Data Do you want to see a Thaw Shed Heater Tender? No Status: Patient is male Stress Scale: On a scale of 0 to 10, what number best describes how much distress you have experienced in the past week?(0 being no distress and 10 being extreme distress) 8 Social work notified: Pt denied need to see protective services social worker at this time. Nursing Assessment Fatigue: moderate; causing difficulty performing some activities Appetite: good Nutritional Intake: Regular oral intake. Weight Gain/Loss: No Ambulatory weight history: Last 6 Encounter Wt Readings: Date: Wt: 09/24/2023 100.2 kg (220 lb 12.8 oz) 09/03/2023 101.2 kg (223 lb 3.2 oz) 09/02/2023 101.4 kg (223 lb 8 oz) 07/30/2023 102.1 kg (225 lb) 06/29/2023 102.1 kg (225 lb) 05/25/2023 106.6 kg (235 lb) Nausea:None Vomiting: None Bowel Function: normal bowel movements Erythema/Hyperpigmentation:mild Desquamation:moist desquamation Rash:none Skin Care: None Skin Sensation: mild itching and mild burning Focused Assessment PROSTATE - MALE PELVIS: Rectal bleeding: No. Rectal pain: No. Bladder function: urgency, frequency,painful urination, retention. Urinary frequency (D/N): 10-15/3-4. SIGNED by: Tomás Mckeon RN documented in this encounterUc Medical Center01-19-2024 Miscellaneous Notes* Telephone Encounter - Brian Olivo MA - 10/22/2023 8:37 AM EST Patient called requesting the following refill. Requested Prescriptions Pending Prescriptions Disp Refills tamsulosin (FLOMAX) 0.4 mg 90 capsule 0 Sig: Take 1 capsule by mouth daily at bedtime. Patient last appointment: 07/24/2023 Patient Phone numbers: [phone] (home) Request is for script(s) to be escript to pharmacy. Brian Olivo MA documented in this encounterUc Medical Center12-01-2023 Instructions* Patient Instructions* Nery Buitrago APRN.CNP - 09/03/2023 12:49 PM EST Provide services on a sliding fee scale for [facility]. [facility] [phone] *free grief services, individual and group [facility] [address] [place], [place] [phone] *Counseling [facility] [address], [place] [phone] *Counseling, Psychiatry and Case Management [address] [address] *Counseling [place] [address] [place] [address] *Counseling [place] [address] [place], [place] [phone] *Counseling [place] [address] [place] [phone] *Counseling [place] [address] [place] [address] *Counseling/mental health and substance use treatment [facility] [address] [phone] [address] [place], [place] [address] [facility] [address] [facility], [address] [place] [phone] *Addiction services, services for victims of domestic violence and sexual assault, housing services [facility] -safe, alcohol and drug free environment *If you ever experience a mental health crisis please contact [phone], 911 or go to the nearest ER. Please verify with insurance provider for coverage documented in this encounterUc Medical Center12-01-2023 History of Present illness Narrative* Podlogar, DEEPAK Gabriel - 09/03/2023 12:44 PM EST 09/03/2023 Patient presents with: Stress SUBJECTIVE: This is a 73 year old that is here today for Above Complaints.. suddenly on August 25. She was hospitalized for some chronic health conditions and developed COVID-19 and declined from there. He reports he is having a hard time dealing with her . Has supportive family but he reports he misses her terribly and can't stop thinking about her. Having some difficulty with staying asleep. Denies SI or HI PAST MEDICAL HISTORY Diagnosis Date Abdominal pain, other specified site Asthma Awareness under anesthesia CAD (coronary artery disease) Cholelithiasis 09/25/2013 Colitis Diabetes mellitus (HCC) type 2 diet controlled Elevated prostate specific antigen (PSA) Esophageal reflux Gastroesophageal reflux Hypertension Impotence of organic origin Impotence Nocturia SUJEY (obstructive sleep apnea) Post-void dribbling Prostate cancer (HCC) RUQ abdominal pain 09/25/2013 ALLERGIES Gemfibrozil, Rosuvastatin, Simvastatin, Imdur [Isosorbide], Penicillins, and Pravastatin MEDICATIONS Current Outpatient Medications Medication Sig tamsulosin (FLOMAX) 0.4 mg Take 1 capsule by mouth daily at bedtime. lansoprazole (PREVACID) 30 mg capsule Take 1 capsule by mouth daily before breakfast. 1/2 hr beforemeal. losartan (COZAAR) 100 mg tablet Take 1 tablet by mouth once daily. apixaban (ELIQUIS) 5 mg tab(s) Take 1 tablet by mouth twice daily. clopidogrel (PLAVIX) 75 mg tablet Take 1 tablet by mouth once daily. guaiFENesin (MUCINEX) 600 mg 12 hr tablet Take 1 tablet by mouth twice daily as needed for cold/allergy symptoms. loratadine (CLARITIN) 10 mg tablet Take 1 tablet by mouth once daily. nitroglycerin sublingual (NITROQUICK) 0.4 mg SL tablet Dissolve 0.4 mg under the tongue every 5 minutes as needed. FARXIGA 10 mg tablet Take 10 mg by mouth once daily. alirocumab (PRALUENT PEN) 75 mg/mL pen Inject 1 mL subcutaneously every other week. ADVAIR DISKUS 500-50 mcg/dose dsdv INHALE 1 (ONE) puff EVERY 12 HOURS Current Facility-Administered Medications Medication Dose Route Frequency perflutren lipid microspheres 1.3 mL in NaCl (PF) 0.9% 10 mL injection (DEFINITY) INTRAVENOUS DIRECTED PRN sodium chloride 0.9 % (flush) 10 mL (BD POSIFLUSH) 10 mL INTRAVENOUS DIRECTED PRN Medications and allergies reviewed by this provider. SOCIAL HISTORY Social History Tobacco Use Smoking status: Every Day Packs/day: .25 Types: Cigarettes Start date: 08/25/2023 Smokeless tobacco: Never Tobacco comments: Resumed last week after the of his spouse Vaping Use Vaping Use: Never used Substance Use Topics Alcohol use: Yes Comment: 1 beer in the evening occasionally Drug use: No REVIEW OF SYSTEMS All other reviewed and negative other than HPI. OBJECTIVE: BP 146/82 Pulse 92 Resp 18 Wt 101.2 kg (223 lb 3.2 oz) SpO2 96% BMI 30.27 kg/m . Vital signs reviewed by this provider. APPEARANCE Well appearing, alert, in no acute distress, well-hydrated, well nourished. PSYCH: Posture and motor behavior: normal posture and motor behavior Dress, grooming, personal hygiene: normal dress and grooming Facial expression: good eye contact, tearful Speech: normal speech Mood: sad Coherency and relevance of thought: normal thought processes Memory: normal memory Abdominal Aortic Aneurysm Screening Never done Pneumococcal Vaccine: 65+(1 - PCV) Never done Dilated Retinal Exam Never done Diabetic Foot Exam Never done DTaP,Tdap,Td Vaccine(1 - Tdap) Never done Hepatitis B Vaccine(1 of 3 - Risk 3-dose series) Never done RSV Vaccine(1 - 1-dose 60+ series) Never done Colorectal Cancer Screening due on 10/04/2012 Shingrix Vaccine(2 of 2) due on 12/22/2019 BP Controlled (<130/80) due on 04/01/2022 Advance Directive Discussion Never done Influenza Vaccine(1) due on 2023 Covid-19 Vaccine( - 2022- season) due on 2023 HbA1C due on 09/05/2023 Urine Albumin:Creatinine Ratio due on 03/06/2024 LDL Cholesterol due on 03/06/2024 Annual PCP Team Chronic Disease Visit due on 09/03/2024 Depression Assessment Completed Hepatitis C Screening Completed HPV Vaccine Aged Out ASSESSMENT/PLAN: 1. Grief reaction - ICD9: 309.0, ICD10: F43.21 - allowed patient time to talk about his - agreeable to grief counseling, local resources provided - CITALOPRAM 10 MG TABLET- common side effects discussed - HYDROXYZINE PAMOATE 25 MG CAPSULE- discussed this medication can cause drowsiness so he should not drive or operate heavy machinery while taking, verbalizes understanding - will have him follow-up with is PCP team in one months sooner if needed Nery Buitrago APRN.MANNY Prescription instructions reviewed with patient as applicable. Patient advised if symptoms do not improve or if symptoms worsen sooner, to contact their primary care physician. Potential red flag symptoms discussed with the patient. Reviewed appropriate action plan to take if red flag symptoms occur. Patient agreeable to treatment plan. I spent a total of 30 minutes on the date of the service which included preparing to see the patient, [id number] patient care, completing clinical documentation, obtaining and/or reviewing separately obtained history, performing a medically appropriate examination, counseling and educating the pat ient/family/caregiver, and ordering medications, tests, or procedures. documented in this encounterUc Medical Center11-30-2023 Nurse Note* Tomás Mckeon RN - 09/02/2023 1:34 PM EST Radiation Therapy - Nursing Note (Consult) PATIENT NAME: Denton Wesley PATIENT September 02, 2023 [facility] FACILITY/LOCATION: [facility] Chief Complaint: consult Reason for visit: Consult. Referring physician: Internal provider Dr Pozo Subjective Data: no complaints Additional Data Do you want to see a Thaw Shed Heater Tender? No Are you interested in information about fertility? No Status: Patient is male Stress Scale: On a scale of 0 to 10, what number best describes how much distress you have experienced in the past week?(0 being no distress and 10 being extreme distress) 10 Pt ddeclined protective services social worker at this time. Pt's spouse unexpectedly last week and pt is grieving. Pt will discuss with PCP tomorrow. SIGNED by: Tomás Mckeon RN documented in this encounterUc Medical Center11-30-2023 History of Present illness Narrative* Ángela Rasmussen MD, MD - 09/02/2023 1:32 PM EST Radiation Oncology - New Patient/Consult Note PATIENT NAME: Denton Wesley PATIENT REQUESTING PROVIDER: Dr. Jania Pozo DIAGNOSIS: Clinical stage IIC, T1c N0, prostate adenocarcinoma with Eugene score 7(4+3), grade group 3, and PSA 7.40 ng/mL. Decipher=0.92 (high risk) HPI: 73 year old male who presents with above diagnosis, for an opinion regarding the role of radiation therapy in the management of the patient's disease. Final recommendations will be communicated back to the requesting physician by way of the shared medical record, or letter to requesting physician via US mail. 73 year old man who had elevated PSA on 03/10/22 to 4.86 ng.mL Digital rectal exam was normal. He underwent TRUS on 07/14/22 and no hypoechoic lesion identified. The total prostate volume was 78.8 gm. He had prostate biopsy with the following results: FINAL DIAGNOSIS A. Prostate, right base, needle core biopsy: - Benign prostatic tissue. B. Prostate, right mid, biopsy: - Benign prostatic tissue. C. Prostate, right apex, biopsy: - Benign prostatic tissue. D. Prostate, right lateral base, biopsy: - Benign prostatic tissue. E. Prostate, right lateral mid, biopsy: - Benign prostatic tissue. F. Prostate, right lateral apex, biopsy: - Benign prostatic tissue. G. Prostate, left base, biopsy: - Prostatic adenocarcinoma Erica score 3+4 = 7 (grade group 2) involving 25% of 1 core (3 mm tumor length). 40% pattern 4. High-grade prostatic intraepithelial neoplasia. H. Prostate, left mid, biopsy: - Prostatic adenocarcinoma Erica score 3+4 = 7 (grade group 2) involving 35% of 1 core (4 mm tumor length). 45% pattern 4. I. Prostate, left apex, biopsy: - Prostatic adenocarcinoma Eugene score 3+4 = 7 (grade group 2) involving 10% of 1 core (1 mm tumor length). 40% pattern 4. J. Prostate, left lateral base, biopsy: - Benign prostatic tissue. K. Prostate, left lateral mid, biopsy: - Prostatic adenocarcinoma Erica score 4+3 = 7 (grade group 3) involving 23% of 1 core (3 mm tumor length). 60% pattern 4. L. Prostate, left lateral apex, biopsy: - Prostatic adenocarcinoma Eugene score 4+3 = 7 (grade group 3) involving 45% of 1 core (6 mm tumor length). 55% pattern 4. Small gland cribriform pattern 4 present. Prostate Cancer Biopsy Summary Number of cores examined: 12 Number of cores positive: 5 Highest Grade Group: 3 Highest % of core involvement: 45 % Cribriform pattern 4: Present Intraductal carcinoma: Absent CT pelvis on 07/31/22 showed Mildly enlarged prostate and No CT evidence of lymphadenopathy in the pelvis. He was planned to have CABG at that time and active surveillance was considered. Bone scan on 12/17/22 showed no scintigraphic evidence of osseous metastases. PSA on 06/14/23 was 7.40 and it increased from 4.62 ng/mL on 03/12/22. Decipher=0.92 (high risk). PSMA PET scan on 06/16/23 showed Focal areas of PSMA expression the prostate some of which likely corresponding with known neoplasm. There was no PSAM expressing metastatic lesions. He was seen by Dr. Pozo and discussed further management options. He has chosen to pursue radiation treatment and hormonal therapy. He was started on Lupron by Dr. Jania Pozo on 07/30/23. ALLERGIES Allergen Reactions Gemfibrozil Intolerance Rosuvastatin Intolerance Simvastatin Intolerance Imdur [Isosorbide] Other: See Comments Headaches, upset stomach, fatigue Penicillins Other: See Comments passed out and felt like I had the flu Pt states he's no longer allergic to this, he's taken tests w/out issues. Pravastatin Myalgia Current Outpatient Medications on File Prior to Visit Medication Sig tamsulosin (FLOMAX) 0.4 mg Take 1 capsule by mouth daily at bedtime. lansoprazole (PREVACID) 30 mg capsule Take 1 capsule by mouth daily before breakfast. 1/2 hr beforemeal. losartan (COZAAR) 100 mg tablet Take 1 tablet by mouth once daily. apixaban (ELIQUIS) 5 mg tab(s) Take 1 tablet by mouth twice daily. clopidogrel (PLAVIX) 75 mg tablet Take 1 tablet by mouth once daily. guaiFENesin (MUCINEX) 600 mg 12 hr tablet Take 1 tablet by mouth twice daily as needed for cold/allergy symptoms. loratadine (CLARITIN) 10 mg tablet Take 1 tablet by mouth once daily. nitroglycerin sublingual (NITROQUICK) 0.4 mg SL tablet Dissolve 0.4 mg under the tongue every 5 minutes as needed. FARXIGA 10 mg tablet Take 10 mg by mouth once daily. alirocumab (PRALUENT PEN) 75 mg/mL pen Inject 1 mL subcutaneously every other week. ADVAIR DISKUS 500-50 mcg/dose dsdv INHALE 1 (ONE) puff EVERY 12 HOURS Current Facility-Administered Medications on File Prior to Visit Medication perflutren lipid microspheres 1.3 mL in NaCl (PF) 0.9% 10 mL injection (DEFINITY) sodium chloride 0.9 % (flush) 10 mL (BD POSIFLUSH) PAST MEDICAL HISTORY Diagnosis Date Abdominal pain, other specified site Asthma Awareness under anesthesia CAD (coronary artery disease) Cholelithiasis 09/25/2013 Colitis Diabetes mellitus (HCC) type 2 diet controlled Elevated prostate specific antigen (PSA) Esophageal reflux Gastroesophageal reflux Hypertension Impotence of organic origin Impotence Nocturia SUJEY (obstructive sleep apnea) Post-void dribbling Prostate cancer (HCC) RUQ abdominal pain 09/25/2013 Prior radiation therapy, collagen vascular disease, or inflammatory bowel disease: No Any implanted or external electric devices? No PAST SURGICAL HISTORY Procedure Laterality Date CABG (2) VEIN GRAFTS & ARTERIAL GRAFT(S 10/16/2022 COLONOSCOPY FLX DX W/COLLJ SPEC WHEN PFRMD Colonoscopy Dr. Ferreira ESOPHAGOGASTRODUODENOSCOPY TRANSORAL DIAGNOSTIC EGD Dr. Ferreira LAPAROSCOPY SURG CHOLECYSTECTOMY 09/25/2013 PAST SURGICAL HISTORY OF I&D left hand PAST SURGICAL HISTORY OF Removal cyst on back PROSTATE BIOPSY DAVIDKI 07/14/2022 STENT PLACEMENT 4 Stents FAMILY HISTORY Problem Relation Age of Onset Colon Cancer Mother Heart Mother Ovarian cancer Mother Prostate Cancer Brother Stroke Brother Emphysema Father Social History Tobacco Use Smoking status: Every Day Packs/day: .25 Types: Cigarettes Start date: 08/25/2023 Smokeless tobacco: Never Tobacco comments: Resumed last week after the of his spouse Vaping Use Vaping Use: Never used Substance Use Topics Alcohol use: Yes Comment: 1 beer in the evening occasionally Drug use: No COMPLETE REVIEW OF SYSTEMS: GENERAL: weight loss of 15 pounds. HEENT: denies BANDA, change in hearing or vision, no other ENT complaints NECK: denies swelling or pain in neck RESPIRATORY: h/o asthma. Mild cough attributed to sinusitis. CARDIOVASCULAR: no chest pain, no palpitations GI: nausea with reflux. : hesitancy. On Flomax. MUSCULOSKELETAL: denies any painful or swollen joints, no muscle aches SKIN: no rash HEMATOLOGY/LYMPHOLOGY: On Eliquis. NEURO: no numbness or paresthesias and no weakness of the extremities PHYSICAL EXAM: VS: BP 124/81 Pulse 87 Temp 36.6 C (97.8 F) (Temporal) Resp 15 Wt 101.4 kg (223 lb 8 oz) SpO2 98% BMI 30.31 kg/m KPS: 90 General Appearance: Alert and oriented. No acute distress. HEENT: NCAT. Sclera anicteric. EOMI. Neck: Normal ROM. Chest: No respiratory distress. Musculoskeletal: Normal ROM in extremities. Neuro: Speech fluent. Gait normal. No focal deficits. Hematologic: No signs of active bleeding. RADIOLOGY/LABORATORY DATA: see HPI ASSESSMENT AND PLAN: 73 year old man with clinical stage IIC, T1c N0, prostate adenocarcinoma with Erica score 7(4+3), grade group 3, and PSA 7.40 ng/mL. Decipher=0.92 (high risk). He is in unfavorable intermediate risk group with high Decipher score. He discussed management options with Dr. Jania Pozo and has decided to pursue hormonal therapy and radiation treatment. I explained the rationale, benefits, alternative management options and potential complications of radiation treatment to the patient and he understands and agrees to proceed. It was explained and understood that other personnel such as radiation therapists, tax map technician, and physicists will participate in planning and delivery of radiation treatment. Permanent tattoo scott will be placed to aid with positioning for daily treatment and the patient consented. Patient will have a simulation procedure in about a month. He was started on Lupron by Dr. Jania Pozo on 07/30/23. Thank you very much for allowing us to participate in his care. Signed by: nÁgela Rasmussen MD cc: Cali Cordero [address] [place] [address] Jania Pozo [facility] History of Present illness Narrative* Sam Fernando MD - 08/03/2023 2:26 PM EDT [facility] [address] [facility] [place] [address] [facility] [id number] Dept: [phone] Sam Fernando MD Denton Guyanus 73 y.o. male Patient presents with a chief complaint of No chief complaint on file. Temp 98.7 F (37.1 C) (Temporal) Ht 6' Wt 107.4 kg (236 lb 12.8 oz) BMI 32.12 kg/m History of Presenting Illness: The patient/caregiver reports a history of complaint with the following features: Onset: started a few months ago Timing: comes and goes, had improved on prednisone, but seems to have recurred a little despite antibiotic after stopping steroid Duration: several months Quality: sinus pain and congestion Location: forehead, retro-orbital Severity: pain mild Risk factors: prior sinus disease Alleviating factors: has not really tired anything Aggravating factors: nothing makes it worse Associated factors: prior sinus surgery that really helped until recently He has been on Xolair for his asthma, but has missed few doses, but has not seemed to help with hissinuses Review of systems covering 10 systems is reviewed and pertinent positives and negatives are noted as above. Past Medical History: Diagnosis Date Abdominal pain Asthma CAD (coronary artery disease) Cholelithiasis Colitis Diabetes (HCC) Elevated PSA Esophageal reflux GERD (gastroesophageal reflux disease) Hypertension Impotence SUJEY (obstructive sleep apnea) Prostate cancer (HCC) Current Outpatient Medications: acetaminophen (TYLENOL) 325 MG tablet, 1 (one) tablet (325 mg total) ., Disp: , Rfl: albuterol (PROVENTIL) 2.5 mg /3 mL (0.083 %) nebulizer solution, INHALE 1 AMPULE BY MOUTH Q6H PRN, Disp: , Rfl: alirocumab (Praluent Pen) 75 mg/mL injection, Inject 1 mL (75 mg total) under the skin ., Disp: , Rfl: clopidogreL (PLAVIX) 75 mg tablet, Take 1 (one) tablet (75 mg total) by mouth daily ., Disp: , Rfl: dapagliflozin propanediol (FARXIGA) 10 mg tablet, Take 1 (one) tablet (10 mg total) by mouth ., Disp: , Rfl: dicyclomine (BENTYL) 10 MG capsule, Take 2 (two) capsules (20 mg total) by mouth ., Disp: , Rfl: fluticasone propion-salmeteroL (Advair Diskus) 500-50 mcg/dose diskus inhaler, INHALE 1 (ONE) puff EVERY 12 HOURS, Disp: , Rfl: guaiFENesin (MUCINEX) 600 mg 12 hr tablet, Take 1 (one) tablet (600 mg total) by mouth 2 (two) times a day ., Disp: , Rfl: lansoprazole (PREVACID) 30 MG capsule, TAKE 1 CAPSULE BY MOUTH DAILY BEFORE BREAKFAST ONE-HALF HOURBEFORE MEAL, Disp: , Rfl: losartan (COZAAR) 100 MG tablet, Take 1 (one) tablet (100 mg total) by mouth daily ., Disp: 30 tablet, Rfl: 11 mometasone (NASONEX) 50 mcg/actuation nasal spray, Instill 2 (two) sprays into each nostril daily ., Disp: 17 g, Rfl: 3 montelukast (SINGULAIR) 10 mg tablet, Take 1 (one) tablet (10 mg total) by mouth every evening ., Disp: , Rfl: nitroGLYCERIN (NITROSTAT) 0.4 MG SL tablet, Place 1 (one) tablet (0.4 mg total) under the tongue every 5 (five) minutes as needed ., Disp: , Rfl: tamsulosin (FLOMAX) 0.4 mg capsule, Take 1 (one) capsule (0.4 mg total) by mouth every night at bedtime ., Disp: , Rfl: Allergies Allergen Reactions Gemfibrozil Unknown and Anaphylaxis Rosuvastatin Rash and Diarrhea Simvastatin Unknown, Other (See Comments) and Diarrhea Isosorbide Unknown Headaches, upset stomach, fatigue Penicillins Unknown passed out and felt like I had the flu Pt states he's no longer allergic to this, he's taken tests w/out issues. Pravastatin Unknown Past Surgical History: Procedure Laterality Date CABG CHOLECYSTECTOMY 09/25/2013 COLONOSCOPY ESOPHAGOGASTRODUODENOSCOPY HAND SURGERY Left I & D cyst PROSTATE BIOPSY 07/14/2022 Social History Socioeconomic History Marital status: Tobacco Use Smoking status: Never Smokeless tobacco: Never Substance and Sexual Activity Alcohol use: Not Currently Drug use: Never Family History Problem Relation Age of Onset Colon cancer Mother Ovarian cancer Mother Emphysema Father Colon cancer Brother Stroke Brother PHYSICAL EXAM: The patient was examined today 08/03/2023 with findings as follows: CONSTITUTIONAL: General Appearance: well-appearing, nontoxic, alert, no acute distress Communication: understanding at normal conversational tones, normal voicing, speech intelligible HEAD/FACE: Head: atraumatic, normocephalic, no lesions Facial Inspection: no lesions, healthy skin Facial Strength: motor strength normal, symmetric strength, symmetric movement Sinuses: no sinus tenderness, extensive polyps with prior sinusotomy Salivary Glands: no enlargements of parotid glands, no tenderness of parotid glands, no masses of parotid glands, clear salivary flow on palpation from Stensen's ducts, no duct stones of Stensen's duct, no enlargement of submandibular glands, no tenderness of submandibular glands, no masses of subma ndibular glands, clear salivary flow from Downey's ducts, no stones of Carole's ducts Temporomandibular Joint: no crepitus with motion, no tenderness on palpation, no trismus, motion symmetric EYES: Pupils: PERRLA, extra-ocular movements intact, no nystagmus, sclera white, no redness of eyes, no watering of eyes EARS: Bilateral External Ears: no pits, no tags Right External Ear: normally formed, no lesions, no mastoid tenderness Left External Ear: normally formed, no lesions, no mastoid tenderness Right External Auditory Canal: normal, healthy skin, no obstructing cerumen, no discharge Left External Auditory Canal: normal, healthy skin, no obstructing cerumen, no discharge Right Tympanic Membrane: normal landmarks, translucent, mobile to pneumatic otoscopy, no perforation Left Tympanic Membrane: normal landmarks, translucent, mobile to pneumatic otoscopy, no perforation Hearing: intact to spoken voice NOSE: Nasal Skin: no lesions, no lacerations, no scars Nasal Dorsum: symmetric with no visible or palpable deformities Nasal Tip: normal symmetric nasal tip, normal nasal valves Nasal Mucosa: pale, boggy, extensive polyps Septum: not markedly deformed, midline, no exposed vessels, no bleeding, no septal granuloma Turbinates: normal size and conformation Nasopharynx: normal ORAL CAVITY/MOUTH: Lips, teeth, gums: normal lips, normal gums, dentition intact, no dental pain on palpation Oral Mucosa: normal, moist, no lesions Palate: normal hard palate, normal soft palate, symmetric palatal elevation Floor of Mouth: normal floor of mouth Tongue: normal tongue, no lesions, no edema, no masses, normal mucosa, mobile Tonsils: normal tonsils, symmetric, no lesions Posterior pharynx: normal NECK: Neck: no masses, trachea midline, normal range of motion, no cysts or pits, no tenderness to palpation Thyroid: normal thyroid, no enlargement, no tenderness, no nodules LYMPH NODES: Cervical: no palpable lymph node enlargement RESPIRATORY: Inspection/Auscultation: good air movement, chest expands symmetrically, normal breath sounds, no wheezing, no stridor CARDIOVASCULAR SYSTEM: Auscultation: regular rate and rhythm, carotid pulse normal, no carotid thrills, no carotid bruits Observation/Palpation of Peripheral Vascular System: no varicosities, no cyanosis, no edema SKIN: General Appearance: no lesions, warm and dry, normal turgor, no bruising NEUROLOGICAL SYSTEM: Orientation: oriented to time, oriented to place, oriented to person Cranial Nerves: Cranial Nerves II-XII intact, normal facial movement PSYCHIATRIC: Mood and affect: normal mood, normal affect Assessment and Plan: He presents with recurrent nasal polyps after a long period of improvement with surgery. He has hadvery little improvement despite oral steroid and antibiotic. He reports management of his asthma with Xolair that also does not jose to have had a positive impact on his nasal polyps. He is to undergotreatment for prostate cancer for the next 8 weeks and will need to hold his Eliquis and Farxiga prior to any surgery of his sinuses, although surgery seems to be his best option at this point. The patient and/or caregiver is advised on the use of any prescribed medication and the rationale for radiographic imaging. The patient and/or caregiver is advised on the use of saline nasal rinses for moisturization, decongestion, and cleansing of the nasal and sinus cavities and an informational sheet on the preparation and use of saline is provided. The patient and/or caregiver is to notify the office if no improvement or worsening of symptoms is noted prior to the scheduled follow-up for sooner evaluation. The risk of bowel infection on prolonged antibiotic therapy is discussed and the patient/caregiver is asked to notify me for persistent diarrhea. The patient and/or caregiver is able to state an understanding of these recommendations and is agreeable to the treatment plan. 1. Chronic ethmoiditis 2. Nasal polyp 3. Chronic frontal sinusitis Return in about 2 months (around 10/03/2023). The patient and/or caregiver is to notify the office if no improvement or worsening of symptoms is noted prior to the scheduled follow-up for sooner evaluation. The patient and/or caregiver is able to state an understanding of these recommendations and is agreeable to the treatment plan. --Sam Fernando MD on 08/03/2023 at 2:36 PM An electronic signature was used to authenticate this note. * Rosamaria Gallardo MA - 08/03/2023 1:50 PM EDT Review of Systems Constitutional: Negative. HENT: Positive for hearing loss, rhinorrhea, sinus pressure and tinnitus. Eyes: Negative. Respiratory: Positive for wheezing. Cardiovascular: Negative. Gastrointestinal: Negative. Endocrine: Negative. Genitourinary: Positive for difficulty urinating, frequency and urgency. Musculoskeletal: Positive for back pain, neck pain and neck stiffness. Skin: Negative. Allergic/Immunologic: Positive for environmental allergies. Neurological: Positive for headaches. Hematological: Bruises/bleeds easily. Psychiatric/Behavioral: Negative. documented in this [id number] NoteHNO ID: [id number] Author: Jania Pozo MD Service: ? Author Type: Physician Type: Progress Notes Filed: 07/30/2023 11:03 AM Note Text: [facility] ESTABLISHED PATIENT FOLLOW-UP NOTE PATIENT: Denton Wesley (73 year old) PCP: Cali Cordero MD SUMMARY: Former patient of Dr. Tolbert. Prostate cancer. cT1c, GG3 (2/, 55-60%) and GG2 (3/, 40-45%), all on left, dx's in 07/2022 for PSA=4.62; 78.8 cc, PSAD=0.06. NCCN unfavorable intermediate risk. Decipher=0.92 (high risk). Initial CT pelvis in 07/2022 and BS in 12/2022 were negative for mets. Tx was delayed due CAD s/p CABG x2 on 10/16/22, complicated by postop retention. PSMA PET-06/2023 negative for mets. PSA=7.4(06/2023). *BT=Eliquis for afib. ASSESSMENT: 1. Prostate cancer (HCC) - ICD9: 185, ICD10: C61 PLAN: #1 Chronic, unstable. The patient has selected IMRT + ADT for management of his prostate cancer. He prefers to see the radiation oncologist at [facility] in [place]. Refer to Dr. Ángela Rasmussen. The patient is agreeable to initiation of androgen deprivation therapy. The side effects of androgen deprivation therapy were discussed, including but not limited to, hot flashes, fatigue, osteoporosis, gynecomastia, loss of muscle mass, weight gain, dyslipidemia, insulin resistance, cardiovascular disease, anemia, cognitive decline, sexual dysfunction, and periodontal disease. The patient understands and wishes to proceed with therapy. Give Lupron 45 mg IM depot today. Start Calcium + vitamin D. FOLLOW UP: Return in about 6 months (around 01/29/2024) for PSA. CHIEF COMPLAINT: Patient presents with: Follow Up Prostate Cancer HISTORY OF PRESENT ILLNESS: Prior notes were reviewed. The patient reports doing well. MANPREET/AUASS FORMS No question data found. REVIEW OF SYSTEMS: Not applicable ALLERGIES: ALLERGIES Allergen Reactions Gemfibrozil Intolerance Rosuvastatin Intolerance Simvastatin Intolerance Imdur [Isosorbide] Other: See Comments Headaches, upset stomach, fatigue Penicillins Other: See Comments passed out and felt like I had the flu Pt states he's no longer allergic to this, he's taken tests w/out issues. Pravastatin Myalgia MEDICATIONS: tamsulosin (FLOMAX) 0.4 mgTake 1 capsule by mouth daily at bedtime.Disp: 90 capsuleRfl: 0 lansoprazole (PREVACID) 30 mg capsuleTake 1 capsule by mouth daily before breakfast. 1/2 hr before meal.Disp: 30 capsuleRfl: 11 losartan (COZAAR) 100 mg tabletTake 1 tablet by mouth once daily.Disp: 90 tabletRfl: 3 apixaban (ELIQUIS) 5 mg tab(s)Take 1 tablet by mouth twice daily.Disp: 180 tabletRfl: 3 clopidogrel (PLAVIX) 75 mg tabletTake 1 tablet by mouth once daily.Disp: 90 tabletRfl: 3 guaiFENesin (MUCINEX) 600 mg 12 hr tabletTake 1 tablet by mouth twice daily as needed for cold/allergy symptoms.Disp: Rfl: loratadine (CLARITIN) 10 mg tabletTake 1 tablet by mouth once daily.Disp: Rfl: nitroglycerin sublingual (NITROQUICK) 0.4 mg SL tabletDissolve 0.4 mg under the tongue every 5 minutes as needed.Disp: Rfl: FARXIGA 10 mg tabletTake 10 mg by mouth once daily.Disp: Rfl: alirocumab (PRALUENT PEN) 75 mg/mL penInject 1 mL subcutaneously every other week.Disp: 2 mLRfl: 11 ADVAIR DISKUS 500-50 mcg/dose dsdvINHALE 1 (ONE) puff EVERY 12 HOURSDisp: Rfl: PAST HISTORY: PAST MEDICAL HISTORY Diagnosis Date Abdominal pain, other specified site Asthma Awareness under anesthesia CAD (coronary artery disease) Cholelithiasis 09/25/2013 Colitis Diabetes mellitus (HCC) type 2 diet controlled Elevated prostate specific antigen (PSA) Esophageal reflux Gastroesophageal reflux Hypertension Impotence of organic origin Impotence Nocturia SUJEY (obstructive sleep apnea) Post-void dribbling Prostate cancer (HCC) RUQ abdominal pain 09/25/2013 PAST SURGICAL HISTORY Procedure Laterality Date CABG (2) VEIN GRAFTS AND ARTERIAL GRAFT(S 10/16/2022 COLONOSCOPY FLX DX W/COLLJ SPEC WHEN PFRMD Colonoscopy Dr. Ferreira ESOPHAGOGASTRODUODENOSCOPY TRANSORAL DIAGNOSTIC EGD Dr. Ferreira LAPAROSCOPY SURG CHOLECYSTECTOMY 09/25/2013 PAST SURGICAL HISTORY OF IANDD left hand PAST SURGICAL HISTORY OF Removal cyst on back PROSTATE BIOPSY GUKI 07/14/2022 STENT PLACEMENT 4 Stents FAMILY HISTORY Problem Relation Age of Onset Colon Cancer Mother Heart Mother Ovarian cancer Mother Prostate Cancer Brother Stroke Brother Emphysema Father Social History Tobacco Use Smoking status: Former Types: Cigarettes Quit date: 10/27/2011 Years since quittin.7 Smokeless tobacco: Never Vaping Use Vaping Use: Never used S (more content not included)...[facility]10-27-2023 Nurse Note* Tomás Adame RN - 07/30/2023 11:51 AM EDT Patient given [employer] patient teaching material on Lupron. Instructed on action, s/e and s/s of allergic reaction. Patient given 45 mg Lupron injection as documented in the MAR. Patient tolerated well. Tomás Adame RN documented [facility] History of Present illness Narrative* Jania Pozo MD - 07/30/2023 10:45 AM EDT [facility] UROLOGY ESTABLISHED PATIENT FOLLOW-UP NOTE PATIENT: Denton Wesley (73 year old) PCP: Cali Cordero MD SUMMARY: Former patient of Dr. Tolbert. Prostate cancer. cT1c, GG3 (2/, 55-60%) and GG2 (3/, 40-45%), all on left, dx's in 07/2022 for PSA=4.62; 78.8 cc, PSAD=0.06. NCCN unfavorable intermediate risk. Decipher=0.92 (high risk). InitialCT pelvis in 07/2022 and BS in 12/2022 were negative for mets. Tx was delayed due CAD s/p CABG x2 on10/16/22, complicated by postop retention. PSMA PET-06/2023 negative for mets. PSA=7.4(06/2023). *BT=Eliquis for afib. ASSESSMENT: 1. Prostate cancer (HCC) - ICD9: 185, ICD10: C61 PLAN: #1 Chronic, unstable. The patient has selected IMRT + ADT for management of his prostate cancer. He prefers to see the radiation oncologist at [facility] in [place]. Refer to Dr. Ángela Rasmussen. Thepatient is agreeable to initiation of androgen deprivation therapy. The side effects of androgen deprivation therapy were discussed, including but not limited to, hot flashes, fatigue, osteoporosis, gynecomastia, loss of muscle mass, weight gain, dyslipidemia, insulin resistance, cardiovascular disease, anemia, cognitive decline, sexual dysfunction, and periodontal disease. The patient understands and wishes to proceed with therapy. Give Lupron 45 mg IM depot today. Start Calcium + vitamin D. FOLLOW UP: Return in about 6 months (around 01/29/2024) for PSA. CHIEF COMPLAINT: Patient presents with: Follow Up Prostate Cancer HISTORY OF PRESENT ILLNESS: Prior notes were reviewed. The patient reports doing well. MANPREET/AUASS FORMS No question data found. REVIEW OF SYSTEMS: Not applicable ALLERGIES: ALLERGIES Allergen Reactions Gemfibrozil Intolerance Rosuvastatin Intolerance Simvastatin Intolerance Imdur [Isosorbide] Other: See Comments Headaches, upset stomach, fatigue Penicillins Other: See Comments passed out and felt like I had the flu Pt states he's no longer allergic to this, he's taken tests w/out issues. Pravastatin Myalgia MEDICATIONS: tamsulosin (FLOMAX) 0.4 mg^Take 1 capsule by mouth daily at bedtime.^Disp: 90 capsule^Rfl: 0 lansoprazole (PREVACID) 30 mg capsule^Take 1 capsule by mouth daily before breakfast. 1/2 hr beforemeal.^Disp: 30 capsule^Rfl: 11 losartan (COZAAR) 100 mg tablet^Take 1 tablet by mouth once daily.^Disp: 90 tablet^Rfl: 3 apixaban (ELIQUIS) 5 mg tab(s)^Take 1 tablet by mouth twice daily.^Disp: 180 tablet^Rfl: 3 clopidogrel (PLAVIX) 75 mg tablet^Take 1 tablet by mouth once daily.^Disp: 90 tablet^Rfl: 3 guaiFENesin (MUCINEX) 600 mg 12 hr tablet^Take 1 tablet by mouth twice daily as needed for cold/allergy symptoms.^Disp: ^Rfl: loratadine (CLARITIN) 10 mg tablet^Take 1 tablet by mouth once daily.^Disp: ^Rfl: nitroglycerin sublingual (NITROQUICK) 0.4 mg SL tablet^Dissolve 0.4 mg under the tongue every 5 minutes as needed.^Disp: ^Rfl: FARXIGA 10 mg tablet^Take 10 mg by mouth once daily.^Disp: ^Rfl: alirocumab (PRALUENT PEN) 75 mg/mL pen^Inject 1 mL subcutaneously every other week.^Disp: 2 mL^Rfl:11 ADVAIR DISKUS 500-50 mcg/dose dsdv^INHALE 1 (ONE) puff EVERY 12 HOURS^Disp: ^Rfl: PAST HISTORY: PAST MEDICAL HISTORY Diagnosis Date Abdominal pain, other specified site Asthma Awareness under anesthesia CAD (coronary artery disease) Cholelithiasis 09/25/2013 Colitis Diabetes mellitus (HCC) type 2 diet controlled Elevated prostate specific antigen (PSA) Esophageal reflux Gastroesophageal reflux Hypertension Impotence of organic origin Impotence Nocturia SUJEY (obstructive sleep apnea) Post-void dribbling Prostate cancer (HCC) RUQ abdominal pain 09/25/2013 PAST SURGICAL HISTORY Procedure Laterality Date CABG (2) VEIN GRAFTS & ARTERIAL GRAFT(S 10/16/2022 COLONOSCOPY FLX DX W/COLLJ SPEC WHEN PFRMD Colonoscopy Dr. Ferreira ESOPHAGOGASTRODUODENOSCOPY TRANSORAL DIAGNOSTIC EGD Dr. Ferreira LAPAROSCOPY SURG CHOLECYSTECTOMY 09/25/2013 PAST SURGICAL HISTORY OF I&D left hand PAST SURGICAL HISTORY OF Removal cyst on back PROSTATE BIOPSY GUKI 07/14/2022 STENT PLACEMENT 4 Stents FAMILY HISTORY Problem Relation Age of Onset Colon Cancer Mother Heart Mother Ovarian cancer Mother Prostate Cancer Brother Stroke Brother Emphysema Father Social History Tobacco Use Smoking status: Former Types: Cigarettes Quit date: 10/27/2011 Years since quittin.7 Smokeless tobacco: Never Vaping Use Vaping Use: Never used Substance Use Topics Alcohol use: Yes Comment: 1 beer in the evening occasionally Drug use: No PHYSICAL EXAMINATION: BP 138/82 Ht 182.9 cm (6') Wt 102.1 kg (225 lb) BMI 30.52 kg/m Genitourinary: (1) Rectal: . (2) CVA: . (3) Genital: . (4) Gonads: . (5) Other: . Constitutional: In no acute distress. Well appearing. Respiratory: Normal respiratory effort without use of accessory muscles. Musculoskeletal: Normal gait and station Cardiovascular: Gastrointestinal: DATA: Clinic: URINALYSIS: N/a Laboratory: Creatinine Date Value Ref Range Status 03/06/2023 0.98 0.73 - 1.22 mg/dL Final 10/23/2022 0.77 0.73 - 1.22 mg/dL Final 10/22/2022 0.76 0.73 - 1.22 mg/dL Final 10/20/2022 0.56 (L) 0.73 - 1.22 mg/dL Final PSA: PSA (ng/mL) Date Value 06/14/2023 7.40 03/12/2022 4.62 03/10/2022 4.86 Cultures: No flowsheet data found. Susceptibility Tests - Past 1 Year No results found for the last 365 days. MEDICAL DECISION MAKING PROBLEM(S): 1 or more, chronic, unstable problem(s) (4) DATA: Category 1 Review of test result(s): Ordering of test(s): Review of prior external note: Independent historian: Category 2 Independent interpretation of test: Category 3 Discussion of management or test interpretation: RISK: Moderate (i.e. prescription drug management; minor surgery with patient or procedure risk factors; elective major surgery without patient or procedure risk factors; management limited by socialdeterminants or health) I have reviewed the problem list, family history, and social history documented by my ancillary staff. Jania Pozo MD Staff Urologist documented in this encounter[facility]10-27-[facility]23 History of Present illness Narrative* Bessie Brown MA - 07/30/2023 8:17 AM EDT POPULATION HEALTH NAVIGATION OUTREACH Action/COURTNEY Spoke with Denton. He will call back to schedule appointment. ANNUAL MEDICARE WELLNESS Colorectal Cancer Screening due on 10/04/2012 BP Controlled (<130/80) due on 04/01/2022 Advance Directive Discussion Never done Influenza Vaccine(1) due on 2023 Patient Identified by Name and : YES, via phone Outreach Outcome/Action Spoke to patient / parent / legal guardian: Patient will return the call or ask for return call Did you use a PCP flex slot to schedule this appointment? No Reason for Outreach Care Gap or Scheduling/Wellness visits Payer: Payor: MEDICARE / Plan: MEDICARE A AND B / Product Type: Medicare / Care Gap Reviewed:: Annual Wellness visit Controlling Blood Pressure Colorectal Cancer Screening Flu Vaccine Reminder: Reminder note to check Health Maintenance for items below Health Maintenance items due: Abdominal Aortic Aneurysm Screening Never done Pneumococcal Vaccine: 65+(1 - PCV) Never done Dilated Retinal Exam Never done Diabetic Foot Exam Never done Hepatitis B Vaccine(1 of 3 - Risk 3-dose series) Never done RSV Vaccine(1 - 1-dose 60+ series) Never done Colorectal Cancer Screening due on 10/04/2012 Shingrix Vaccine(2 of 2) due on 12/22/2019 BP Controlled (<130/80) due on 04/01/2022 Advance Directive Discussion Never done Influenza Vaccine(1) due on 2023 Covid-19 Vaccine( - season) due on 2023 Navigation Signature: Bessie Brown MA July 30, 2023 8:17 AM documented in this encounterU[facility] Center10-24-2023 Miscellaneous Notes* Telephone Encounter - Chirag Tamayo RN - 07/27/2023 1:29 PM EDT See refill encounter. Chirag Tamayo RN documented in this encounterUc [facility] Center10-24-2023 Miscellaneous Notes* Telephone Encounter - Darcie Valle Cma - 07/27/2023 11:27 AM EDT Patient phones requesting refills as follows: Requested Prescriptions Pending Prescriptions Disp Refills tamsulosin (FLOMAX) 0.4 mg 90 capsule 3 Sig: Take 1 capsule by mouth daily at bedtime. Please review and advise. Darcie Valle Cma documented in this encounterUc [facility] Center10-17-2023 Miscellaneous Notes* Telephone Encounter - Jania Pozo MD - 07/20/2023 11:32 AM EDT Ok, for radiation therapy, he will need hormone therapy as well. Please schedule the patient for Lupron/Eligard 6-month injection with me to discuss and with a concurrent visit with the nurse to get an injection. Please obtain prior authorization if needed. Thanks documented in this encounterUc [facility] Center10-10-2023 History of Present illness Narrative* Sam Fernando MD - 07/13/2023 2:54 PM EDT [facility] [address] [facility] [place] [address] [facility] [address] Dept: [phone] Sam Fernando MD Denton Wesley 73 y.o. male Patient presents with a chief complaint of Sinus Problem (Lots of congestion) Temp 99.1 F (37.3 C) Ht 6' Wt 107.5 kg (237 lb) BMI 32.14 kg/m History of Presenting Illness: The patient/caregiver reports a history of complaint with the following features: Onset: started a few months ago Timing: comes and goes Duration: several months Quality: sinus pain and congestion Location: forehead, retro-orbital Severity: pain mild Risk factors: prior sinus disease Alleviating factors: has not really tired anything Aggravating factors: nothing makes it worse Associated factors: prior sinus surgery that really helped until recently Review of systems covering 10 systems is reviewed and pertinent positives and negatives are noted as above. Past Medical History: Diagnosis Date Abdominal pain Asthma CAD (coronary artery disease) Cholelithiasis Colitis Diabetes (HCC) Elevated PSA Esophageal reflux GERD (gastroesophageal reflux disease) Hypertension Impotence SUJEY (obstructive sleep apnea) Prostate cancer (HCC) Current Outpatient Medications: acetaminophen (TYLENOL) 325 MG tablet, 1 (one) tablet (325 mg total) ., Disp: , Rfl: albuterol (PROVENTIL) 2.5 mg /3 mL (0.083 %) nebulizer solution, INHALE 1 AMPULE BY MOUTH Q6H PRN, Disp: , Rfl: alirocumab (Praluent Pen) 75 mg/mL injection, Inject 1 mL (75 mg total) under the skin ., Disp: , Rfl: clopidogreL (PLAVIX) 75 mg tablet, Take 1 (one) tablet (75 mg total) by mouth daily ., Disp: , Rfl: dapagliflozin propanediol (FARXIGA) 10 mg tablet, Take 1 (one) tablet (10 mg total) by mouth ., Disp: , Rfl: dicyclomine (BENTYL) 10 MG capsule, Take 2 (two) capsules (20 mg total) by mouth ., Disp: , Rfl: fluticasone propion-salmeteroL (Advair Diskus) 500-50 mcg/dose diskus inhaler, INHALE 1 (ONE) puff EVERY 12 HOURS, Disp: , Rfl: guaiFENesin (MUCINEX) 600 mg 12 hr tablet, Take 1 (one) tablet (600 mg total) by mouth 2 (two) times a day ., Disp: , Rfl: lansoprazole (PREVACID) 30 MG capsule, TAKE 1 CAPSULE BY MOUTH DAILY BEFORE BREAKFAST ONE-HALF HOURBEFORE MEAL, Disp: , Rfl: losartan (COZAAR) 100 MG tablet, Take 1 (one) tablet (100 mg total) by mouth daily ., Disp: 30 tablet, Rfl: 11 montelukast (SINGULAIR) 10 mg tablet, Take 1 (one) tablet (10 mg total) by mouth every evening ., Disp: , Rfl: nitroGLYCERIN (NITROSTAT) 0.4 MG SL tablet, Place 1 (one) tablet (0.4 mg total) under the tongue every 5 (five) minutes as needed ., Disp: , Rfl: tamsulosin (FLOMAX) 0.4 mg capsule, Take 1 (one) capsule (0.4 mg total) by mouth every night at bedtime ., Disp: , Rfl: doxycycline hyclate (VIBRA-TABS) 100 MG tablet, Take 1 (one) tablet (100 mg total) by mouth 2 (two)times a day for 14 days ., Disp: 28 tablet, Rfl: 0 methylPREDNISolone (MEDROL DOSEPACK) 4 mg tablet, Follow package directions ., Disp: 21 tablet, Rfl: 0 mometasone (NASONEX) 50 mcg/actuation nasal spray, Instill 2 (two) sprays into each nostril daily ., Disp: 17 g, Rfl: 3 Allergies Allergen Reactions Gemfibrozil Unknown and Anaphylaxis Rosuvastatin Rash and Diarrhea Simvastatin Unknown, Other (See Comments) and Diarrhea Isosorbide Unknown Headaches, upset stomach, fatigue Penicillins Unknown passed out and felt like I had the flu Pt states he's no longer allergic to this, he's taken tests w/out issues. Pravastatin Unknown Past Surgical History: Procedure Laterality Date CABG CHOLECYSTECTOMY 09/25/2013 COLONOSCOPY ESOPHAGOGASTRODUODENOSCOPY HAND SURGERY Left I & D cyst PROSTATE BIOPSY 07/14/2022 Social History Socioeconomic History Marital status: Tobacco Use Smoking status: Never Smokeless tobacco: Never Substance and Sexual Activity Alcohol use: Not Currently Drug use: Never Family History Problem Relation Age of Onset Colon cancer Mother Ovarian cancer Mother Emphysema Father Colon cancer Brother Stroke Brother PHYSICAL EXAM: The patient was examined today 07/13/2023 with findings as follows: CONSTITUTIONAL: General Appearance: well-appearing, nontoxic, alert, no acute distress Communication: understanding at normal conversational tones, normal voicing, speech intelligible HEAD/FACE: Head: atraumatic, normocephalic, no lesions Facial Inspection: no lesions, healthy skin Facial Strength: motor strength normal, symmetric strength, symmetric movement Sinuses: no sinus tenderness, extensive polyps with prior sinusotomy Salivary Glands: no enlargements of parotid glands, no tenderness of parotid glands, no masses of parotid glands, clear salivary flow on palpation from Stensen's ducts, no duct stones of Stensen's duct, no enlargement of submandibular glands, no tenderness of submandibular glands, no masses of subma ndibular glands, clear salivary flow from Downey's ducts, no stones of Carole's ducts Temporomandibular Joint: no crepitus with motion, no tenderness on palpation, no trismus, motion symmetric EYES: Pupils: PERRLA, extra-ocular movements intact, no nystagmus, sclera white, no redness of eyes, no watering of eyes EARS: Bilateral External Ears: no pits, no tags Right External Ear: normally formed, no lesions, no mastoid tenderness Left External Ear: normally formed, no lesions, no mastoid tenderness Right External Auditory Canal: normal, healthy skin, no obstructing cerumen, no discharge Left External Auditory Canal: normal, healthy skin, no obstructing cerumen, no discharge Right Tympanic Membrane: normal landmarks, translucent, mobile to pneumatic otoscopy, no perforation Left Tympanic Membrane: normal landmarks, translucent, mobile to pneumatic otoscopy, no perforation Hearing: intact to spoken voice NOSE: Nasal Skin: no lesions, no lacerations, no scars Nasal Dorsum: symmetric with no visible or palpable deformities Nasal Tip: normal symmetric nasal tip, normal nasal valves Nasal Mucosa: pale, boggy, extensive polyps Septum: not markedly deformed, midline, no exposed vessels, no bleeding, no septal granuloma Turbinates: normal size and conformation Nasopharynx: normal ORAL CAVITY/MOUTH: Lips, teeth, gums: normal lips, normal gums, dentition intact, no dental pain on palpation Oral Mucosa: normal, moist, no lesions Palate: normal hard palate, normal soft palate, symmetric palatal elevation Floor of Mouth: normal floor of mouth Tongue: normal tongue, no lesions, no edema, no masses, normal mucosa, mobile Tonsils: normal tonsils, symmetric, no lesions Posterior pharynx: normal NECK: Neck: no masses, trachea midline, normal range of motion, no cysts or pits, no tenderness to palpation Thyroid: normal thyroid, no enlargement, no tenderness, no nodules LYMPH NODES: Cervical: no palpable lymph node enlargement RESPIRATORY: Inspection/Auscultation: good air movement, chest expands symmetrically, normal breath sounds, no wheezing, no stridor CARDIOVASCULAR SYSTEM: Auscultation: regular rate and rhythm, carotid pulse normal, no carotid thrills, no carotid bruits Observation/Palpation of Peripheral Vascular System: no varicosities, no cyanosis, no edema SKIN: General Appearance: no lesions, warm and dry, normal turgor, no bruising NEUROLOGICAL SYSTEM: Orientation: oriented to time, oriented to place, oriented to person Cranial Nerves: Cranial Nerves II-XII intact, normal facial movement PSYCHIATRIC: Mood and affect: normal mood, normal affect FIBEROPTIC NASOPHARYNGOSCOPY NOTE ([id number]) PROCEDURE PERFORMED BY: Sam Fernando MD PROCEDURE DATE: 07/13/2023 With the patient and/or caregiver's consent, the patient is positioned in the exam chair. The nasalcavity is then prepared with local anesthetic/decongestant of 4% Lidocaine and 0.05% oxymetazoline. Using a flexible endoscope the nasal cavity beginning on the leftside is entered. There is normal moist nasal septal mucosa. The nasal septum is midline. The inferior turbinate is normal. The middle turbinate is absent. The ethmoid and frontal nasal recesses are with post-surgical changes. The sphenoid sinus ostea is with post-surgical changes. The maxillary sinus ostia is with post- surgical changes. Extensive polyps are present. The endoscope is then withdrawn and the right side is entered. The inferior turbinate is normal. The middle turbinate is absent. The ethmoid and frontal nasal recesses are with post-surgical changes.The sphenoid sinus ostea is with post-surgical changes. The maxillary sinus ostia is with post-surgical changes. Extensive polyps are noted. Examination of nasopharynx shows normal adenoid and intact and patent eustachian tube orifices. Velopharyngeal closure is intact. This completed the procedure with the patient having tolerated the procedure well. Assessment and Plan: He presents with recurrent nasal polyps after a long period of improvement with surgery. A course of antibiotic and steroid is advised. He reports poor tolerance of Flonase due to the floral odor justice trial of Nasonex is suggested as an alternative. The patient and/or caregiver is advised on the use of any prescribed medication and the rationale for radiographic imaging. The patient and/or caregiver is advised on the use of saline nasal rinses for moisturization, decongestion, and cleansing of the nasal and sinus cavities and an informational sheet on the preparation and use of saline is provided. The patient and/or caregiver is to notify the office if no improvement or worsening of symptoms is noted prior to the scheduled follow-up for sooner evaluation. The risk of bowel infection on prolonged antibiotic therapy is discussed and the patient/caregiver is asked to notify me for persistent diarrhea. The patient and/or caregiver is able to state an understanding of these recommendations and is agreeable to the treatment plan. 1. Chronic frontal sinusitis doxycycline hyclate (VIBRA-TABS) 100 MG tablet 2. Chronic ethmoiditis doxycycline hyclate (VIBRA-TABS) 100 MG tablet 3. Nasal polyp methylPREDNISolone (MEDROL DOSEPACK) 4 mg tablet mometasone (NASONEX) 50 mcg/actuation nasal spray Return in about 1 month (around 08/13/2023). The patient and/or caregiver is to notify the office if no improvement or worsening of symptoms is noted prior to the scheduled follow-up for sooner evaluation. The patient and/or caregiver is able to state an understanding of these recommendations and is agreeable to the treatment plan. --Sam Fernando MD on 07/13/2023 at 3:11 PM An electronic signature was used to authenticate this note. * Lola Brown MA - 07/13/2023 2:43 PM EDT Review of Systems Constitutional: Negative. HENT: Positive for congestion, facial swelling, sinus pressure and tinnitus. Eyes: Negative. Respiratory: Negative. Cardiovascular: Negative. Gastrointestinal: Negative. Endocrine: Negative. Genitourinary: Negative. Musculoskeletal: Negative. Skin: Negative. Allergic/Immunologic: Positive for environmental allergies. Neurological: Positive for light-headedness. Hematological: Negative. Psychiatric/Behavioral: Negative. documented in this [id number] NoteHNO ID: [id number] Author: Jania Pozo MD Service: ? Author Type: Physician Type: Progress Notes Filed: 06/29/2023 2:34 PM Note Text: [facility] UROLOGY ESTABLISHED PATIENT FOLLOW-UP NOTE PATIENT: Denton Wesley (73 year old) PCP: Cali Cordero MD SUMMARY: Former patient of Dr. Tolbert. Prostate cancer. cT1c, GG3 (2/12, 55-60%) and GG2 (3/12, 40-45%), all on left, dx's in 07/2022 for PSA=4.62; 78.8 cc, PSAD=0.06. NCCN unfavorable intermediate risk. Decipher=0.92 (high risk). Initial CT pelvis in 07/2022 and BS in 12/2022 were negative for mets. Tx was delayed due CAD s/p CABG x2 on 10/16/22, complicated by postop retention. PSMA PET-06/2023 negative for mets. PSA=7.4(06/2023). *BT=Eliquis for afib. ASSESSMENT: 1. Prostate cancer (HCC) - ICD9: 185, ICD10: C61 PLAN: #1 Chronic, unstable. PSMA PET and PSA results reviewed. The PSA has almost doubled over the last year, suggesting disease progression, but there is no radiographic evidence of metastatic disease, suggesting local progression only. I do not recommend delaying treatment any further due to the high risk of progression. Management options for high-risk prostate cancer were reviewed, including radical prostatectomy, IMRT with 1.5 years of ADT, and brachytherapy with adjuvant IMRT. There is a radiation oncologist (Ángela Rasmussen MD) that is local for him in [place]. The R/B/A were discussed. He needs additional time to consider his options. He prefers to call with his decision. All questions were answered. FOLLOW UP: Return for Call with decision on treatment.. CHIEF COMPLAINT: Patient presents with: Follow Up Prostate Cancer HISTORY OF PRESENT ILLNESS: Prior notes were reviewed. The patient reports doing well. MANPREET/AUASS FORMS No question data found. REVIEW OF SYSTEMS: Not applicable ALLERGIES: ALLERGIES Allergen Reactions Gemfibrozil Intolerance Rosuvastatin Intolerance Simvastatin Intolerance Imdur [Isosorbide] Other: See Comments Headaches, upset stomach, fatigue Penicillins Other: See Comments passed out and felt like I had the flu Pt states he's no longer allergic to this, he's taken tests w/out issues. Pravastatin Myalgia MEDICATIONS: lansoprazole (PREVACID) 30 mg capsuleTake 1 capsule by mouth daily before breakfast. 1/2 hr before meal.Disp: 30 capsuleRfl: 11 losartan (COZAAR) 100 mg tabletTake 1 tablet by mouth once daily.Disp: 90 tabletRfl: 3 apixaban (ELIQUIS) 5 mg tab(s)Take 1 tablet by mouth twice daily.Disp: 180 tabletRfl: 3 clopidogrel (PLAVIX) 75 mg tabletTake 1 tablet by mouth once daily.Disp: 90 tabletRfl: 3 guaiFENesin (MUCINEX) 600 mg 12 hr tabletTake 1 tablet by mouth twice daily as needed for cold/allergy symptoms.Disp: Rfl: loratadine (CLARITIN) 10 mg tabletTake 1 tablet by mouth once daily.Disp: Rfl: nitroglycerin sublingual (NITROQUICK) 0.4 mg SL tabletDissolve 0.4 mg under the tongue every 5 minutes as needed.Disp: Rfl: tamsulosin (FLOMAX) 0.4 mgTake 1 capsule by mouth daily at bedtime.Disp: 90 capsuleRfl: 3 FARXIGA 10 mg tabletTake 10 mg by mouth once daily.Disp: Rfl: alirocumab (PRALUENT PEN) 75 mg/mL penInject 1 mL subcutaneously every other week.Disp: 2 mLRfl: 11 ADVAIR DISKUS 500-50 mcg/dose dsdvINHALE 1 (ONE) puff EVERY 12 HOURSDisp: Rfl: PAST HISTORY: PAST MEDICAL HISTORY Diagnosis Date Abdominal pain, other specified site Asthma Awareness under anesthesia CAD (coronary artery disease) Cholelithiasis 09/25/2013 Colitis Diabetes mellitus (HCC) type 2 diet controlled Elevated prostate specific antigen (PSA) Esophageal reflux Gastroesophageal reflux Hypertension Impotence of organic origin Impotence Nocturia SUJEY (obstructive sleep apnea) Post-void dribbling Prostate cancer (HCC) RUQ abdominal pain 09/25/2013 PAST SURGICAL HISTORY Procedure Laterality Date CABG (2) VEIN GRAFTS AND ARTERIAL GRAFT(S 10/16/2022 COLONOSCOPY FLX DX W/COLLJ SPEC WHEN PFRMD Colonoscopy Dr. Ferreira ESOPHAGOGASTRODUODENOSCOPY TRANSORAL DIAGNOSTIC EGD Dr. Ferreira LAPAROSCOPY SURG CHOLECYSTECTOMY 09/25/2013 PAST SURGICAL HISTORY OF IANDD left hand PAST SURGICAL HISTORY OF Removal cyst on back PROSTATE BIOPSY GUKI 07/14/2022 STENT PLACEMENT 4 Stents FAMILY HISTORY Problem Relation Age of Onset Colon Cancer Mother Heart Mother Ovarian cancer Mother Prostate Cancer Brother Stroke Brother Emphysema Father Social History Tobacco Use Smoking status: Former Types: Cigarettes Quit date: 10/27/2011 Years since quittin.6 Smokeless tobacco: Never Vaping Use Vaping Use: Never used Sub (more content not included)...[facility]09-13-2023 NoteHNO ID: [id number] Author: Ca King RT(R) Service: Nuclear Medicine Author Type: Technologist Type: Progress Notes Filed: 06/16/2023 1:28 PM Note Text: RADIOLOGY SERVICE PROGRESS NOTE SERVICE DATE: 06/16/2023 SERVICE TIME: 1:27 PM PATIENT IDENTITY VERIFICATION COMPLETED USING TWO (2) STANDARD IDENTIFIERS: Name and Date of confirmed by patient verbally and Name and Date of confirmed by identification band FALL SCREENING: Has the patient had 2 falls in the last year or 1 fall with injury or currently using an Ambulatory Assistive Device (Walker, Cane, Wheelchair, Crutches, etc.)? No PATIENT GENDER DATA: .male ALLERGIES: Reviewed and unchanged MEDICATIONS REVIEWED: No PATIENT RELEVANT IMPLANT DATA REVIEWED: Not Applicable CREATININE: Creatinine Date Value Ref Range Status 03/06/2023 0.98 0.73 - 1.22 mg/dL Final 10/23/2022 0.77 0.73 - 1.22 mg/dL Final 10/22/2022 0.76 0.73 - 1.22 mg/dL Final Estimated Glomerular Filtration Rate Date Value Ref Range Status 03/06/2023 82 >=60 mL/min/1.73m? Final Comment: Estimated Glomerular Filtration Rate (eGFR) is calculated using the 2020 CKD-EPI creatinine equation. This equation utilizes serum creatinine, sex, and age as parameters. The creatinine assay has traceable calibration to isotope dilution-mass spectrometry. Refer to KDIGO guidelines for clinical interpretation. In patients with unstable renal function, e.g. those with acute kidney injury, the eGFR may not accurately reflect actual GFR. eGFR- Date Value Ref Range Status 04/01/2021 >60 Final P.O.C.T. RESULTS: N/A June 16, [address] PERFORMED: No IV SITE: Ambulatory: NM only - direct IV injection in the Left antecubital site POST EXAM PIV STATUS: Discontinued PROCEDURE TYPE: NM INJECT: PET/CT WHOLE BODY SCAN. 10.3 mCi [id number]. No other medications given.. ADMINISTRATION TIME: 1318 PATIENT DISCHARGED TO: Ambulatory patient, left [place] department area. A Diagnostic radioactive procedure has taken place, with no further precautions necessary other than routine body substance precautions. More information regarding radiation safety can be found using this link: [email or web address] SIGNATURE: RT Raffaele(Maryjane) PATIENT NAME: Denton Wesley DATE: June 16, 2023 TIME: 1:27 PM PAGER/CONTACT #:[facility]09-13-2023 History of Present illness Narrative* Ca King RT(R) - 06/16/2023 1:30 PM EDT RADIOLOGY SERVICE PROGRESS NOTE SERVICE DATE: 06/16/2023 SERVICE TIME: 1:27 PM PATIENT IDENTITY VERIFICATION COMPLETED USING TWO (2) STANDARD IDENTIFIERS: Name and Date of confirmed by patient verbally and Name and Date of confirmed by identification band FALL SCREENING: Has the patient had 2 falls in the last year or 1 fall with injury or currently using an Ambulatory Assistive Device (Walker, Cane, Wheelchair, Crutches, etc.)? No PATIENT GENDER DATA: .male ALLERGIES: Reviewed and unchanged MEDICATIONS REVIEWED: No PATIENT RELEVANT IMPLANT DATA REVIEWED: Not Applicable CREATININE: Creatinine Date Value Ref Range Status 03/06/2023 0.98 0.73 - 1.22 mg/dL Final 10/23/2022 0.77 0.73 - 1.22 mg/dL Final 10/22/2022 0.76 0.73 - 1.22 mg/dL Final Estimated Glomerular Filtration Rate Date Value Ref Range Status 03/06/2023 82 >=60 mL/min/1.73m Final Comment: Estimated Glomerular Filtration Rate (eGFR) is calculated using the 2020 CKD-EPI creatinine equation. This equation utilizes serum creatinine, sex, and age as parameters. The creatinine assay has traceable calibration to isotope dilution- mass spectrometry. Refer to KDIGO guidelines for clinical interpretation. In patients with unstable renal function, e.g. those with acute kidney injury, the eGFRmay not accurately reflect actual GFR. eGFR- Date Value Ref Range Status 04/01/2021 >60 Final P.O.C.T. RESULTS: N/A June 16, [address] PERFORMED: No IV SITE: Ambulatory: NM only - direct IV injection in the Left antecubital site POST EXAM PIV STATUS: Discontinued PROCEDURE TYPE: NM INJECT: PET/CT WHOLE BODY SCAN. 10.3 mCi [id number]. No other medications given.. ADMINISTRATION TIME: 1318 PATIENT DISCHARGED TO: Ambulatory patient, left [place] department area. A Diagnostic radioactive procedure has taken place, with no further precautions necessary other than routine body substance precautions. More information regarding radiation safety can be found usingthis link: [email or web address] 20Diagnostic%20Nuclear%20Medicine%[email or web address] SIGNATURE: TELMA Castorena) PATIENT NAME: Denton Wesley DATE: June 16, 2023 TIME: 1:27 PM PAGER/CONTACT #: documented in this encounterUc Medical Center08-22-2023 NoteHNO ID: [id number] Author: Jania Pozo MD Service: ? Author Type: Physician Type: Progress Notes Filed: 05/25/2023 12:09 PM Note Text: [facility] UROLOGY ESTABLISHED PATIENT FOLLOW-UP NOTE PATIENT: Denton Wesley (72 year old) PCP: Cali Cordero MD SUMMARY: Former patient of Dr. Tolbert. Prostate cancer. cT1c, GG3 (2/12, 55-60%) and GG2 (3/12, 40-45%), all on left, dx's in 07/2022 for PSA=4.62; 78.8 cc, PSAD=0.06. NCCN unfavorable intermediate risk. Decipher=0.92 (high risk). Initial CT pelvis in 07/2022 and BS in 12/2022 were negative for mets. Tx was delayed due CAD s/p CABG x2 on 10/16/22, complicated by postop retention. *BT=Eliquis for afib. ASSESSMENT: 1. Prostate cancer (HCC) - ICD9: 185, ICD10: C61 (primary diagnosis) 2. Urinary retention - ICD9: 788.20, ICD10: R33.9 PLAN: #1 Chronic, unstable, life threatening. The patient has high-risk prostate cancer (by genomic risk assessment). Treatment has been delayed ~10 months due to competing medical comorbidities (I.e. CAD). It has been 6 months since the last staging imaging. I recommend rechecking a PSA and restaging with PSMA PET CT. #2 PVR=86cc, indicating good bladder emptying. FOLLOW UP: Return in about 3 weeks (around 06/15/2023) for PET scan and PSA results to discuss treatment options (30 min). CHIEF COMPLAINT: Patient presents with: Follow Up Prostate Cancer HISTORY OF PRESENT ILLNESS: Prior notes were reviewed. The patient reports doing well. MANPREET/AUASS FORMS No question data found. REVIEW OF SYSTEMS: Not applicable ALLERGIES: ALLERGIES Allergen Reactions Gemfibrozil Intolerance Rosuvastatin Intolerance Simvastatin Intolerance Imdur [Isosorbide] Other: See Comments Headaches, upset stomach, fatigue Penicillins Other: See Comments passed out and felt like I had the flu Pt states he's no longer allergic to this, he's taken tests w/out issues. Pravastatin Myalgia MEDICATIONS: lansoprazole (PREVACID) 30 mg capsuleTake 1 capsule by mouth daily before breakfast. 1/2 hr before meal.Disp: 30 capsuleRfl: 11 losartan (COZAAR) 100 mg tabletTake 1 tablet by mouth once daily.Disp: 90 tabletRfl: 3 apixaban (ELIQUIS) 5 mg tab(s)Take 1 tablet by mouth twice daily.Disp: 180 tabletRfl: 3 clopidogrel (PLAVIX) 75 mg tabletTake 1 tablet by mouth once daily.Disp: 90 tabletRfl: 3 guaiFENesin (MUCINEX) 600 mg 12 hr tabletTake 1 tablet by mouth twice daily as needed for cold/allergy symptoms.Disp: Rfl: loratadine (CLARITIN) 10 mg tabletTake 1 tablet by mouth once daily.Disp: Rfl: nitroglycerin sublingual (NITROQUICK) 0.4 mg SL tabletDissolve 0.4 mg under the tongue every 5 minutes as needed.Disp: Rfl: tamsulosin (FLOMAX) 0.4 mgTake 1 capsule by mouth daily at bedtime.Disp: 90 capsuleRfl: 3 FARXIGA 10 mg tabletTake 10 mg by mouth once daily.Disp: Rfl: alirocumab (PRALUENT PEN) 75 mg/mL penInject 1 mL subcutaneously every other week.Disp: 2 mLRfl: 11 ADVAIR DISKUS 500-50 mcg/dose dsdvINHALE 1 (ONE) puff EVERY 12 HOURSDisp: Rfl: PAST HISTORY: PAST MEDICAL HISTORY Diagnosis Date Abdominal pain, other specified site Asthma Awareness under anesthesia CAD (coronary artery disease) Cholelithiasis 09/25/2013 Colitis Diabetes mellitus (HCC) type 2 diet controlled Elevated prostate specific antigen (PSA) Esophageal reflux Gastroesophageal reflux Hypertension Impotence of organic origin Impotence Nocturia SUJEY (obstructive sleep apnea) Post-void dribbling Prostate cancer (HCC) RUQ abdominal pain 09/25/2013 PAST SURGICAL HISTORY Procedure Laterality Date CABG (2) VEIN GRAFTS AND ARTERIAL GRAFT(S 10/16/2022 COLONOSCOPY FLX DX W/COLLJ SPEC WHEN PFRMD Colonoscopy Dr. Ferreira ESOPHAGOGASTRODUODENOSCOPY TRANSORAL DIAGNOSTIC EGD Dr. Ferreira LAPAROSCOPY SURG CHOLECYSTECTOMY 09/25/2013 PAST SURGICAL HISTORY OF IANDD left hand PAST SURGICAL HISTORY OF Removal cyst on back PROSTATE BIOPSY GUKI 07/14/2022 STENT PLACEMENT 4 Stents FAMILY HISTORY Problem Relation Age of Onset Colon Cancer Mother Heart Mother Ovarian cancer Mother Prostate Cancer Brother Stroke Brother Emphysema Father Social History Tobacco Use Smoking status: Former Types: Cigarettes Quit date: 10/27/2011 Years since quittin.5 Smokeless tobacco: Never Vaping Use Vaping Use: Never used Substance Use Topics Alcohol use: Yes Comment: 1 beer in the evening occasionally Drug use: No PHYSICAL EXAMINATION: BP 132/82 Ht 182.9 cm (6') Wt 106.6 kg (235 lb) BMI 31.87 kg/m? Genitourinary: (1) Rectal: . (2) CVA: . (3) Genital: . (4) Gonads: . ( (more content not included)...[facility]08-22-2023 History of Present illness Narrative* Jania Pozo MD - 05/25/2023 11:30 AM EDT [facility] UROLOGY ESTABLISHED PATIENT FOLLOW-UP NOTE PATIENT: Denton Wesley (72 year old) PCP: Cali Cordero MD SUMMARY: Former patient of Dr. Tolbert. Prostate cancer. cT1c, GG3 (2/, 55-60%) and GG2 (3/, 40-45%), all on left, dx's in 07/2022 for PSA=4.62; 78.8 cc, PSAD=0.06. NCCN unfavorable intermediate risk. Decipher=0.92 (high risk). InitialCT pelvis in 07/2022 and BS in 12/2022 were negative for mets. Tx was delayed due CAD s/p CABG x2 on10/16/22, complicated by postop retention. *BT=Eliquis for afib. ASSESSMENT: 1. Prostate cancer (HCC) - ICD9: 185, ICD10: C61 (primary diagnosis) 2. Urinary retention - ICD9: 788.20, ICD10: R33.9 PLAN: #1 Chronic, unstable, life threatening. The patient has high-risk prostate cancer (by genomic risk assessment). Treatment has been delayed ~10 months due to competing medical comorbidities (I.e. CAD). It has been 6 months since the last staging imaging. I recommend rechecking a PSA and restaging with PSMA PET CT. #2 PVR=86cc, indicating good bladder emptying. FOLLOW UP: Return in about 3 weeks (around 06/15/2023) for PET scan and PSA results to discuss treatment options (30 min). CHIEF COMPLAINT: Patient presents with: Follow Up Prostate Cancer HISTORY OF PRESENT ILLNESS: Prior notes were reviewed. The patient reports doing well. MANPREET/AUASS FORMS No question data found. REVIEW OF SYSTEMS: Not applicable ALLERGIES: ALLERGIES Allergen Reactions Gemfibrozil Intolerance Rosuvastatin Intolerance Simvastatin Intolerance Imdur [Isosorbide] Other: See Comments Headaches, upset stomach, fatigue Penicillins Other: See Comments passed out and felt like I had the flu Pt states he's no longer allergic to this, he's taken tests w/out issues. Pravastatin Myalgia MEDICATIONS: lansoprazole (PREVACID) 30 mg capsule^Take 1 capsule by mouth daily before breakfast. 1/2 hr beforemeal.^Disp: 30 capsule^Rfl: 11 losartan (COZAAR) 100 mg tablet^Take 1 tablet by mouth once daily.^Disp: 90 tablet^Rfl: 3 apixaban (ELIQUIS) 5 mg tab(s)^Take 1 tablet by mouth twice daily.^Disp: 180 tablet^Rfl: 3 clopidogrel (PLAVIX) 75 mg tablet^Take 1 tablet by mouth once daily.^Disp: 90 tablet^Rfl: 3 guaiFENesin (MUCINEX) 600 mg 12 hr tablet^Take 1 tablet by mouth twice daily as needed for cold/allergy symptoms.^Disp: ^Rfl: loratadine (CLARITIN) 10 mg tablet^Take 1 tablet by mouth once daily.^Disp: ^Rfl: nitroglycerin sublingual (NITROQUICK) 0.4 mg SL tablet^Dissolve 0.4 mg under the tongue every 5 minutes as needed.^Disp: ^Rfl: tamsulosin (FLOMAX) 0.4 mg^Take 1 capsule by mouth daily at bedtime.^Disp: 90 capsule^Rfl: 3 FARXIGA 10 mg tablet^Take 10 mg by mouth once daily.^Disp: ^Rfl: alirocumab (PRALUENT PEN) 75 mg/mL pen^Inject 1 mL subcutaneously every other week.^Disp: 2 mL^Rfl:11 ADVAIR DISKUS 500-50 mcg/dose dsdv^INHALE 1 (ONE) puff EVERY 12 HOURS^Disp: ^Rfl: PAST HISTORY: PAST MEDICAL HISTORY Diagnosis Date Abdominal pain, other specified site Asthma Awareness under anesthesia CAD (coronary artery disease) Cholelithiasis 09/25/2013 Colitis Diabetes mellitus (HCC) type 2 diet controlled Elevated prostate specific antigen (PSA) Esophageal reflux Gastroesophageal reflux Hypertension Impotence of organic origin Impotence Nocturia SUJEY (obstructive sleep apnea) Post-void dribbling Prostate cancer (HCC) RUQ abdominal pain 09/25/2013 PAST SURGICAL HISTORY Procedure Laterality Date CABG (2) VEIN GRAFTS & ARTERIAL GRAFT(S 10/16/2022 COLONOSCOPY FLX DX W/COLLJ SPEC WHEN PFRMD Colonoscopy Dr. Ferreira ESOPHAGOGASTRODUODENOSCOPY TRANSORAL DIAGNOSTIC EGD Dr. Ferreira LAPAROSCOPY SURG CHOLECYSTECTOMY 09/25/2013 PAST SURGICAL HISTORY OF I&D left hand PAST SURGICAL HISTORY OF Removal cyst on back PROSTATE BIOPSY GUKI 07/14/2022 STENT PLACEMENT 4 Stents FAMILY HISTORY Problem Relation Age of Onset Colon Cancer Mother Heart Mother Ovarian cancer Mother Prostate Cancer Brother Stroke Brother Emphysema Father Social History Tobacco Use Smoking status: Former Types: Cigarettes Quit date: 10/27/2011 Years since quittin.5 Smokeless tobacco: Never Vaping Use Vaping Use: Never used Substance Use Topics Alcohol use: Yes Comment: 1 beer in the evening occasionally Drug use: No PHYSICAL EXAMINATION: BP 132/82 Ht 182.9 cm (6') Wt 106.6 kg (235 lb) BMI 31.87 kg/m Genitourinary: (1) Rectal: . (2) CVA: . (3) Genital: . (4) Gonads: . (5) Other: . Constitutional: In no acute distress. Well appearing. Respiratory: Normal respiratory effort without use of accessory muscles. Musculoskeletal: Normal gait and station Cardiovascular: Gastrointestinal: DATA: Clinic: URINALYSIS: N/a Laboratory: Creatinine Date Value Ref Range Status 03/06/2023 0.98 0.73 - 1.22 mg/dL Final 10/23/2022 0.77 0.73 - 1.22 mg/dL Final 10/22/2022 0.76 0.73 - 1.22 mg/dL Final 10/20/2022 0.56 (L) 0.73 - 1.22 mg/dL Final PSA: PSA (ng/mL) Date Value 03/12/2022 4.62 03/10/2022 4.86 Cultures: No flowsheet data found. Susceptibility Tests - Past 1 Year No results found for the last 365 days. MEDICAL DECISION MAKING PROBLEM(S): 1 or more, chronic, unstable problem(s) (4) DATA: Category 1 Review of test result(s): Ordering of test(s): Review of prior external note: Independent historian: Category 2 Independent interpretation of test: Category 3 Discussion of management or test interpretation: RISK: I have reviewed the problem list, family history, and social history documented by my ancillary staff. Jania Pozo MD Staff Urologist documented [facility]23 Miscellaneous Notes* Telephone Encounter - Charles Linn - 04/05/2023 2:49 PM EDT LMOM for the patient to call our office back to schedule. Request submitted by Denton Wesley [[id number]] on 04/03/2023 at 8:32:58 PM Form Title: Request an Appointment Submitted Data Request appointment with: Brian Colmenares MD ([facility] Cardiac, Thoracic [facility] Vascular Specialties) [[id number]] ----- Reason for visit: Chest pain documented in this encounterU[facility]06-21-2023 Miscellaneous Notes* Telephone Encounter - Ava Gil MA - 03/24/2023 11:45 AM EDT Patient reviewed results via [employer]. Patient active [employer]. Patient notified via [employer] message. Ava Gil MA * Telephone Encounter - Robson Robertson APRN.CNP - 03/22/2023 9:27 AM EDT Please let the patient know that the CT of the chest showed stable, no unchanged pulmonary nodules.Very small, 5 mm. Recommendation is repeating in 1 year. Robson Robertson APRN.CNP documented in this encounterU[facility]06-15-2023 History of Present illness Narrative* Reef Maddi Salvador, (R) - 03/18/2023 3:00 PM EDT Radiology Service Progress Note PATIENT NAME: Denton Wesley DATE OF SERVICE: March 18, 2023 TIME: 3:26 PM PATIENT IDENTITY VERIFICATION COMPLETED USING TWO (2) IDENTIFIERS: Name and Date of confirmedby patient verbally. FALL SCREENING: Has the patient had 2 falls in the last year or 1 fall with injury or currently using an Ambulatory Assistive Device (Walker, Cane, Wheelchair, Crutches, etc.)? No PATIENT GENDER DATA: Male PATIENT RELEVANT IMPLANT DATA REVIEWED: Yes RADIOLOGY DEPARTMENT: CT; Exam(s) Completed: Chest PERIPHERAL IV DATA: Not applicable SIGNED BY: RT Jenna(R) March 18, 2023 3:26 PM documented in this encounterU[facility] Center06-08-2023 History of Present illness Narrative* Charley Cordoba RDMS - 03/11/2023 1:45 PM EDT Radiology Service Progress Note PATIENT NAME: Denton Wesley DATE OF SERVICE: March 11, 2023 TIME: 3:08 PM PATIENT IDENTITY VERIFICATION COMPLETED USING TWO (2) IDENTIFIERS: Name and Date of confirmedby patient verbally. FALL SCREENING: Has the patient had 2 falls in the last year or 1 fall with injury or currently using an Ambulatory Assistive Device (Walker, Cane, Wheelchair, Crutches, etc.)? No PATIENT GENDER DATA: Male PATIENT RELEVANT IMPLANT DATA REVIEWED: Not Applicable RADIOLOGY DEPARTMENT: Ultrasound PERIPHERAL IV DATA: Not applicable SIGNED BY: Charley Cordoba RDMS T March 11, 2023 3:08 PM documented in this encounterU[facility] Center06-02-2023 History of Present illness Narrative* Robson Robertson APRN.TECHNICAL SUPPORT CONSULTANT - 03/05/2023 2:20 PM EDT Chief Complaint Patient presents with: Neck Pain HPI Denton Wesley is a 72 year old male who presents here today for Above Complaints. follow up for neck/.shouder pain. Here for neck pain. Present for 3 years. Worst over the past few months. Radiates down to the rightshoulder. No numbness or tingling of the hands. Pain is okay in the morning and then increases in the daytime. Has tried stretching. Tylenol helps. Patient stating that he feels a lump on the back ofhis neck. He is concerned. Patient is following with cardiology. Has MRI scheduled in April. He denies any chest pain, shortness of breath, syncope. No leg swelling. Patient is taking his medications as prescribed. No side effects. He is due for blood work. It is ordered. History of pulmonary nodules on CT of chest from June 2022. Due for 6-month repeat. The order is in and he will schedule today. Diabetes: History of controlled diabetes. Last hemoglobin A1c was 6.9%. He is on Farxiga. Does not check blood sugars at home. Past medical history, appointments, medications, allergies reviewed. EXAM: BP 140/80 Pulse 80 Resp 14 Wt 107 kg (236 lb) BMI 32.01 kg/m General Appearance: Well appearing, alert, in no acute distress, well-hydrated, well nourished.. Neck: Supple, no adenopathy; thyroid symmetric, normal size Lungs: Lungs clear to auscultation. No wheezing, rhonchi, rales.. Heart: RRR without murmur, gallop, or rubs. No ectopy. Extremities: No deformities, edema M/S: Patient is able to rotate his neck to the left right. No discomfort when rotating. Patient is mildly tender in the right and left upper trapezius area. Right greater than left. There is a palpable semisolid cystlike structure in the right upper trapezius. It is tender and he verbalizes this when I palpate. ASSESSMENT/PLAN: 1. 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 I do believe he is got some upper previous strain ongoing, but also does have a likely lipoma seated in the right trapezius muscle. Get ultrasound to further assess.Provided patient some reassurance that this is benign. 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 I discussed avoiding manipulating the area to avoid irritation. Patient will continue to use Tylenol as needed. I offered him a muscle relaxer but he declined. - US HEAD/NECK SOFT TISSUE OTHER 2. Type 2 diabetes mellitus without complication, without long-term current use of insulin (HCC) - ICD9: 250.00, ICD10: E11.9 Usually well controlled, check hemoglobin A1c today. 3. Mixed hyperlipidemia - ICD9: 272.2, ICD10: E78.2 To be determined - Continue current medications - Counseled on healthy diet and regular exercise 4. Essential hypertension - ICD9: 401.9, ICD10: I10 - Controlled - Continue current medications - Recommend home blood pressure monitoring, to bring results to next visit - Encouraged sodium restriction, DASH or Mediterranean diet - Recommend regular aerobic exercise 5. Pulmonary nodule - ICD9: 793.11, ICD10: R91.1 -Patient will schedule CT of the chest today. Robson Robertson APRN.CNP This note was partly generated using [employer] voice recognition dictation and may contain some misspelled or inaccurate words missed on review. documented in this encounterUc [facility] Center06-02-2023 Instructions* Patient Instructions* Robson Robertson APRN.CNP - 03/05/2023 2:17 PM EDT Get blood work completed Schedule CT of the chest that is ordered. Get ultrasound of the neck Robson Robertson APRN.CNP documented in this encounterUc [facility] Center04-11-2023 Nurse Note* Lita Busch - 01/12/2023 3:05 PM EDT EVENT MONITOR DISPOSABLE PATCH INSTRUCTIONS Patient Name: Denton Wesley [facility] Number: [id number] Skin prepped and cleansed with alcohol Patch secured to prepped area Monitor Activated Serial #: [id number] Patient Instructed: Prescribed order timeframe Bathing guidelines Usage of event button and diary documentation Return of monitor at the end of prescribed order Call with problems [phone] or [phone]. [phone] Patient expresses a good understanding of instructions Lita Busch documented in this [facility]04-11-2023 Instructions* Patient Instructions* Jere Rust APRN.CNP - 01/12/2023 2:50 PM EDT It was great to see you today, as we discussed: 1. I have sent refills for your Losartan. Please double check when you get home that you have indeed been taking 100 mg daily as your current prescription on file says 50 mg. 2. Call [facility] to check on cardiac rehab status. Its very important that you participate in cardiac rehab 3. Please restart your Eliquis so that you are protected from stroke if you have recurrence of atrial fibrillation 4. We will place a monitor in the office today to assess for any atrial fibrillation recurrence 5. Follow up with Dr. Pacheco in 3 months or sooner if need arises documented in this encounterUc [facility] Center04-11-2023 History of Present illness Narrative* Jere Rust APRN.MANNY - 01/12/2023 2:30 PM EDT Images from the original note were not included. [facility] [place] Vickie Soto Department of Cardiovascular Medicine SECTION OF CLINICAL CARDIOLOGY OUTPATIENT VISIT DATE January 12, 2023 OUTPATIENT VISIT TYPE ESTABLISHED PRIMARY CARE PHYSICIAN: Cali Cordero [address] [place] [address] CHIEF COMPLAINT: Follow up CABG HISTORY OF PRESENT ILLNESS: Mr. Wesley is a 72 year old male with CAD, S/P PCI (2015), S/P CABG x2 (10/16/22), HTN, HLD, and T2DM who presents today for a cardiovascular medicine follow-up visit. He underwent planned CABG x2 (ACEVEDO-LAD and SVG-Circ) with Dr. Colmenares at [facility] on 10/16/2022. POD 2 he was noted to have very brief episodes of atrial fibrillation with associated heart pounding sensation for which his metoprolol was increased, he was loaded on PO Amiodarone and started on Eliquis. His pacing wires were discontinued on 10/20/22. Postop course also complicated by urinary retention req uiring Mendiola insertion and urology consult which improved at time of discharge on 10/23/22. Shortly after discharge he was noted to have heart rates in the 30s for which his amiodarone and metoprolol were both discontinued. Since discharge he has been doing well and has overall noted improvement in his prior fatigue. His sternotomy and chest tube sites have healed well without complication. He continues to have some numbness at his left lower leg graft site which he reports is slowly improving. He continues to have daily episodes of heart pounding sensation but believes that his heart rhythm is regular during these times. He did have an episode about a week ago where he had heart pounding sensation and his heart rhythm felt irregular. He felt that the symptoms were secondary to his Eliquis thus he discontinued this on his own 2 weeks ago. He reports he was otherwise tolerating Eliquis well and denied any bloodin the urine, stool, or melena at that time. He is working on enrolling in cardiac rehab at [facility] had his exercise stress test completed an is waiting to be scheduled further. He denies any chest pain, shortness of breath, lightheadedness, dizziness, presyncope, syncope, lower extremity edema, orthopnea, or PND. Subjective PAST MEDICAL HISTORY Diagnosis Date Abdominal pain, other specified site Asthma Awareness under anesthesia CAD (coronary artery disease) Cholelithiasis 09/25/2013 Colitis Diabetes mellitus (HCC) type 2 diet controlled Esophageal reflux Gastroesophageal reflux Hypertension Impotence of organic origin Impotence SUJEY (obstructive sleep apnea) RUQ abdominal pain 09/25/2013 PAST SURGICAL HISTORY Procedure Laterality Date CABG (2) VEIN GRAFTS & ARTERIAL GRAFT(S 10/16/2022 COLONOSCOPY FLX DX W/COLLJ SPEC WHEN PFRMD Colonoscopy Dr. Ferreira ESOPHAGOGASTRODUODENOSCOPY TRANSORAL DIAGNOSTIC EGD Dr. Ferreira LAPAROSCOPY SURG CHOLECYSTECTOMY 09/25/2013 PAST SURGICAL HISTORY OF I&D left hand PAST SURGICAL HISTORY OF Removal cyst on back PROSTATE BIOPSY GUKI 07/14/2022 STENT PLACEMENT 4 Stents Social History Tobacco Use Smoking status: Former Types: Cigarettes Quit date: 10/27/2011 Years since quittin.2 Smokeless tobacco: Never Vaping Use Vaping Use: Never used Substance Use Topics Alcohol use: Yes Comment: 1 beer in the evening occasionally Drug use: No FAMILY HISTORY Problem Relation Age of Onset Colon Cancer Mother Heart Mother Ovarian cancer Mother Prostate Cancer Brother Stroke Brother Emphysema Father ALLERGIES: ALLERGIES Allergen Reactions Gemfibrozil Intolerance Rosuvastatin Intolerance Simvastatin Intolerance Imdur [Isosorbide] Other: See Comments Headaches, upset stomach, fatigue Penicillins Other: See Comments passed out and felt like I had the flu Pt states he's no longer allergic to this, he's taken tests w/out issues. Pravastatin Myalgia MEDICATIONS: clopidogrel (PLAVIX) 75 mg tablet^Take 1 tablet by mouth once daily.^Disp: 90 tablet^Rfl: 3 guaiFENesin (MUCINEX) 600 mg 12 hr tablet^Take 1 tablet by mouth twice daily as needed for cold/allergy symptoms.^Disp: ^Rfl: loratadine (CLARITIN) 10 mg tablet^Take 1 tablet by mouth once daily.^Disp: ^Rfl: nitroglycerin sublingual (NITROQUICK) 0.4 mg SL tablet^Dissolve 0.4 mg under the tongue every 5 minutes as needed.^Disp: ^Rfl: lansoprazole (PREVACID) 30 mg capsule^Take 1 capsule by mouth daily before breakfast. 1/2 hr beforemeal.^Disp: 30 capsule^Rfl: 5 tamsulosin (FLOMAX) 0.4 mg^Take 1 capsule by mouth daily at bedtime.^Disp: 90 capsule^Rfl: 3 FARXIGA 10 mg tablet^Take 10 mg by mouth once daily.^Disp: ^Rfl: alirocumab (PRALUENT PEN) 75 mg/mL pen^Inject 1 mL subcutaneously every other week.^Disp: 2 mL^Rfl:11 ADVAIR DISKUS 500-50 mcg/dose dsdv^INHALE 1 (ONE) puff EVERY 12 HOURS^Disp: ^Rfl: losartan (COZAAR) 100 mg tablet^Take 1 tablet by mouth once daily.^Disp: 90 tablet^Rfl: 3 apixaban (ELIQUIS) 5 mg tab(s)^Take 1 tablet by mouth twice daily.^Disp: 180 tablet^Rfl: 3 REVIEW OF SYSTEMS: CARD: See HPI GENERAL: Negative for: Weight loss or gain, Fever and/or Chills HEENT: Negative for: Headache, Impaired Vision, Glasses, Hearing Impairment, Ringing in Ears, Nosebleeds, Bleeding Gums NECK: Negative for: Swelling, Pain, Stiffness RESPIRATORY: Negative for: Cough, Blood in Sputum, Shortness of breath, Wheezing, Apnea GASTROINTESTINAL: Negative for: Nausea, Vomiting, Diarrhea, Blood in stool, or Dark black stools MUSCULOSKELETAL: Negative for: Muscle or joint pain, Stiffness , Joint swelling NEUROLOGIC: Negative for: focal numbness/weakness, headaches, visual changes, ataxia, speech/language loss SKIN: Negative for: Rashes, Itching HEMATOLOGICAL/LYMPHATIC: Negative for: Easy bruising , Easy bleeding ENDOCRINE: Negative for: Heat or cold intolerance, Excessive sweating, Frequent urination, Frequentthirst Objective PHYSICAL EXAMINATION: BP 118/68 Pulse 78 Ht 182.9 cm (6') Wt 105.6 kg (232 lb 11.2 oz) SpO2 97% BMI 31.56 kg/m General: Well appearing, in no acute distress. Skin: No clubbing, no cyanosis. Midsternotomy site well-healed without signs of infection Eyes: Extra ocular movements intact Oropharynx: Teeth in good repair. Neck: No jugular venous distention, no carotid bruits, carotids have a normal upstroke. Lungs: Clear to auscultation bilaterally, no wheezing or rhonchi. Heart: Regular rhythm, S1, S2 normal, no S3, no S4, no heaves, no rub and no murmur. Trace b/l lower extremity edema . Grade 2/4 distal pulses bilaterally. Abdomen: Soft, nontender, bowel sounds normal, no bruits. Neuro: Oriented to person, place and time, alert, cooperative, gait coordinated. CARDIOVASCULAR MEDICINE TESTING: No Cardiovascular testing perfomed today. Last ECHO Result Conclusion ECHO Collected: 06/18/2022 2:27 PM (Final result) Impression: CONCLUSIONS: - Technically difficult exam due to body habitus. - Exam indication: CAD - The left ventricle is small. Left ventricular systolic function is normal. EF = 64 5% (2D biplane) Grade I left ventricular diastolic dysfunction. - The right ventricle is normal in size. Right ventricular systolic function is normal. - There is no evidence of significant valvular stenosis or insufficiency on this study. - The patient has not had a prior [facility] echocardiographic exam for comparison. * * * Final * * * Last EKG Result Conclusion ECG COMPLETE Collected: 10/17/2022 5:53 AM (Final result) Impression: NORMAL SINUS RHYTHM MINIMAL VOLTAGE CRITERIA FOR LVH, MAY BE NORMAL VARIANT ( R in aVL ) INFERIOR INFARCT , AGE UNDETERMINED nonspecific ST elevation WHEN COMPARED WITH ECG OF 20-MAR-2016 04:28, ST NO LONGER ELEVATED IN INFERIOR LEADS ST ELEVATION NOW PRESENT IN LATERAL LEADS Confirmed by MD ASAD, HOLLI ([id number]) on 10/18/2022 11:47:[address] Result Conclusion CT CHEST WO IVCON Exam End: 06/29/2022 3:27 PM (Final result) Impression: IMPRESSION: No CT evidence of acute abnormality. Incidental Finding: Follow-up Acuity: Incidental Findings: Solid: 6-8 mm (multiple nodules) Routing Code: RI_1 Recommendation: CT Chest WO IVCON Time Frame: 3-6 months Comments: If stable on follow-up imaging, a repeat chest CT exam in 12 months (15 - 18 months from the initial exam) is recommended. 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: PSCB Transcribe Date/Time: Jun 30 2022 1:09P Dictated by : KRISTIN CHO MD This examination was interpreted and the report reviewed and electronically signed by: KRISTIN CHO MD on Jun 30 2022 1:17PM EST There were no tests performed for review. PLAN AND RECOMMENDATIONS: 1. CAD - S/P PCI with IRENE to PLB of the RCA and PTCA to prox-PDA in 2016 - S/P CABG x2 (ACEVEDO-LAD & SVG-Circ) with Dr. Colmenares at [facility] on 10/16/2022 - Patient appears compensated from cardiac standpoint - Continue ASA, Statin and BB as currently ordered - Phase II cardiac rehab at [facility] 2. Paroxysmal atrial fibrillation - Multiple episodes post op CABG - Continued daily episodes of palpitations - [id number] Score of 4 (Age, HTN, DM, & Vasc) - Previously anticoagulated with Eliquis 5 mg BID and discontinued this on his own 2 weeks ago - Initially placed on Amiodarone and Metoprolol tartrate >>Significant bradycardia in the 30's and amiodarone and BB discontinued - o event monitor - Eliquis 5 mg BID - Consider resuming low dose BB pending event monitor results 3. Essential hypertension - Optimal control on losartan - Encouraged dietary sodium restriction/DASH diet - Reviewed risks of HTN and principles of treatment - Goal of BP <130/80 4. Pure hypercholesterolemia - Currently on Praluent - Documented intolerance to statins due to severe myalgias - Last lipid panel 03/2022 with LDL 55 5. Type 2 diabetes mellitus CONCLUSION: Patient presents today for follow-up after recent CABG x2 at [facility]. He appears to be doing well from a cardiovascular standpoint. He has noted overall improvement in his symptoms since surgery. He did have multiple episodes of atrial fibrillation following surgery for which he was placed on amiodarone and metoprolol. These were subsequently discontinued due to significant bradycardia in the 30s. Hecontinues to have daily episodes of palpitations as well as an episode last week where his heart rhythm felt irregular. We will place a Zio event monitor to assess for significant dysrhythmia as wellto assess his average heart rate an any significant bradycardia. Pending Zio event monitor results w ould consider resuming low-dose beta-ari. He was previously placed on Eliquis which he discontinued on his own 2 weeks ago. We reviewed at length the importance of anticoagulation to prevent stroke given his elevated [id number] score and he is willing to resume Eliquis 5 mg twice daily at this time. He is requesting refill for his losartan and reports he has been taking 100 mg daily at homehowever prescription is written for 50 mg. He reports this was increased by his PCP several months ago and will assure he is indeed taking 100 mg at home prior to picking up his refill. His heart rate, blood pressure, most recent cholesterol profile remain under favorable control. I have made no additions or changes to his medications. He should continue to actively engage in cardiovascular risk factor modification and follow up with Dr. Pacheco in 3 months, or sooner should need arise. CONTACT INFORMATION: Jere Rust APRN.MANNY Cardiology Nurse Practitioner Section of Regional Cardiology [facility] Dept of Cardiovascular Medicine [facility] [place] [address] [place] [address] Office Office This note was partially generated using ADmantX voice recognition system and may contain errors related to that system including grammar, punctuation, spelling, and words that may be inappropriate documented in this encounterUc Medical Center03-16-2023 History of Present illness Narrative* Fanny Watts, RT(R) - 12/17/2022 9:30 AM EDT RADIOLOGY SERVICE PROGRESS NOTE SERVICE DATE: 12/17/2022 SERVICE TIME: 09:30 AM PATIENT IDENTITY VERIFICATION COMPLETED USING TWO (2) STANDARD IDENTIFIERS: Name and Date of confirmed by patient verbally FALL SCREENING: Has the patient had 2 falls in the last year or 1 fall with injury or currently using an Ambulatory Assistive Device (Walker, Cane, Wheelchair, Crutches, etc.)? No PATIENT GENDER DATA: .male ALLERGIES: Reviewed and unchanged MEDICATIONS REVIEWED: No PATIENT RELEVANT IMPLANT DATA REVIEWED: Not Applicable CREATININE: Creatinine Date Value Ref Range Status 10/23/2022 0.77 0.73 - 1.22 mg/dL Final 10/22/2022 0.76 0.73 - 1.22 mg/dL Final 10/20/2022 0.56 (L) 0.73 - 1.22 mg/dL Final Estimated Glomerular Filtration Rate Date Value Ref Range Status 10/23/2022 95 >=60 mL/min/1.73m Final Comment: Estimated Glomerular Filtration Rate (eGFR) is calculated using the 2020 CKD-EPI creatinine equation. This equation utilizes serum creatinine, sex, and age as parameters. The creatinine assay has traceable calibration to isotope dilution- mass spectrometry. Refer to KDIGO guidelines for clinical interpretation. In patients with unstable renal function, e.g. those with acute kidney injury, the eGFRmay not accurately reflect actual GFR. eGFR- Date Value Ref Range Status 04/01/2021 >60 Final P.O.C.T. RESULTS: N/A December 17, [address] PERFORMED: No IV SITE: Ambulatory: A peripheral IV was started in the Left antecubital site with a Angio cath: 24gauge. POST EXAM PIV STATUS: Discontinued PROCEDURE TYPE: NM INJECT: Whole Body Bone Scan. 22.8 mCi Tc99m MDP. No other medications given.. ADMINISTRATION TIME: 09:40 PATIENT DISCHARGED TO: Ambulatory patient, left NM department area. A Diagnostic radioactive procedure has taken place, with no further precautions necessary other than routine body substance precautions. More information regarding radiation safety can be found usingthis link: [email or web address] SIGNATURE: RT Stacy(R) PATIENT NAME: Denton Wesley DATE: December 17, 2022 TIME: 09:45M PAGER/CONTACT #: documented in this encounterUc Medical Center03-10-2023 History of Present illness Narrative* Robson Robertson APRN.TECHNICAL SUPPORT CONSULTANT - 12/11/2022 2:20 PM EST Chief Complaint Patient presents with: F/U 1 month: BP & post surgery HPI Denton Wesley is a 72 year old male who presents here today for Chronic Medical Conditions. follow up for HTN. Patient is here for follow-up for hypertension. Last encounter was early August. BP was elevated,was scheduled to follow-up with me but is rescheduled a few times. In the meantime, has underwent aCABG x2. Being followed by cardiothoracic surgery. Has follow-up with urology next week. Has imagesordered but not scheduled yet. We will help him get NM bone scan and MRI scheduled. Has follow-up with cardiology the week after. Overall, has been doing okay. Surgery went well. Saw vascular surgery last month, Losartan was increased to 50 mg daily. Does check BP at home. Got 131/80 this morning. About a 5 pound gain in the past 1 month. No chest pain, syncope, or shortness of breath. Feeling like he is getting back to normal. Ribs and sternum hurt when he sneezes. DM: On . Following with Dr. Vishal Watkins. Not certain when he has follow up Past medical history, appointments, medications, allergies reviewed. EXAM: BP 136/88 (BP Site: Left Arm) Pulse 76 Temp 36.2 C (97.2 F) (Left Tympanic) Resp 16 Wt 102.1 kg (225 lb) SpO2 99% BMI 30.52 kg/m General Appearance: Well appearing, alert, in no acute distress, well-hydrated, well nourished. andOverweight. Neck: Supple, no adenopathy; thyroid symmetric, normal size. Lungs: Lungs clear to auscultation. No wheezing, rhonchi, rales.. Heart: RRR without murmur, gallop, or rubs. No ectopy. Abdomen: Normal abdominal exam, Abdomen soft, non-tender. Bowel sounds normal. No masses, organomegaly. Extremities: No deformities, edema ASSESSMENT/PLAN: 1. Essential hypertension - ICD9: 401.9, ICD10: I10 (primary diagnosis) - good control - Continue current medication(s) - Recommended regular aerobic exercise. - Recommend home blood pressure monitoring, to bring results in on next visit - Goal of BP <130/80 - COMP METABOLIC PANEL 2. Type 2 diabetes mellitus without complication, without long-term current use of insulin (HCC) - ICD9: 250.00, ICD10: E11.9 - Controlled - Continue current medications, check labs in 3-month - HGB A1C - ALBUMIN/CREAT RATIO RND UR - LIPID PANEL BASIC 3. S/P CABG x 2 - ICD9: V45.81, ICD10: Z95.1 -Continue with upcoming visit with cardiology 4. Mixed hyperlipidemia - ICD9: 272.2, ICD10: E78.2 - to be determined upon return of lab results - Continue current medication. - LIPID PANEL BASIC 5. Elevated PSA - ICD9: 790.93, ICD10: R97.20 -Continue with scheduled follow-up with urology. We will assist him today with getting scheduled for his needed imaging prior Robson Robertson APRN.CNP RTO in 3 months, sooner if needed. This note was partly generated using ADmantX voice recognition dictation and may contain some misspelled or inaccurate words missed on review. documented in this encounterUc Medical Center02-13-2023 Miscellaneous Notes* Telephone Encounter - Romana Ramos LPN - 11/16/2022 3:25 PM EST This Nurse left a detailed message on a confidential voice message regarding below and provided Central Scheduling's phone number. This Nurse advised if any questions to contact our office. Vern Mills APRN.CNP Received: Today Can you please let the patient know I messaged equal opportunity director, Dr. Pacheco, and he suggested an account manager forest service appointment for his fast/slow heart rate, which I placed the order for. Thanks! documented in this encounterUc Medical Center02-13-2023 Miscellaneous Notes* Addendum Note - Vern Mills APRN.CNP - 11/16/2022 3:11 PM ESTAddended by: VERN MILLS on: 11/16/2022 03:11 PM Modules accepted: Orders documented in this encounterUc Medical Center02-13-2023 NoteHNO ID: [id number] Author: Vern Mills APRN.CNP Service: ? Author Type: Nurse Practitioner Type: Progress Notes Filed: 11/16/2022 4:37 PM Note Text: HPI: (Per CIRO on 07/13/22): Mr. Wesley is a 72 year old male presenting back to the office for evaluation for coronary artery disease and possible CABG. Mr. Wesley is a 72 year old male former remote smoker with a history of hypertension, hyperlipidemia, type 2 diabetes controlled with dietary modifications, asthma, and CAD status post PCI in 2015. He presents to the office for evaluation of progressive significant coronary artery disease on heart catheterization and few months of exertional chest discomfort. Nuclear stress test in June 2021 which demonstrated no evidence of ischemia or infarction. Medical therapy did not relieve his symptoms, and he was taken for heart catheterization. He does have elevated PSA levels concerning for malignancy and he also has significant exposure to agent orange in the . Cardiac catheterization demonstrates nonsignificant disease in the RCA and patent stents in the PDA and PL branches with distal tapering of vessel not amenable for bypass. The circumflex branch is likely graftable vessel in its mid segment, however distally the vessel also tapers very significantly and my concern is the outflow of the graft is not good enough to maintain graft patency. The LAD is a large vessel and has proximal stenoses just prior to the stent as well as at its takeoff from the left main. Since his last office visit, the patient has obtained a TTE, endocrinology consult, PFTs, CT of the chest, and carotid artery studies, all of which returned without any surprises as below. We presented the patient in our multidisciplinary heart team conference and the recommendation was for CABG over PCI. The patient also was found to have an elevated PSA, for which he is due to get a biopsy tomorrow on 07/14. He continues to have some exertional chest discomfort, however he feels this has improved slightly since our last office visit. Pt underwent prostate biopsy on 07/14/22 as scheduled; which revealed prostatic adenocarcinoma. Uro has plans for active surveillance and is okay to proceed with CABG. Per pt's request he wanted to wait until after the holidays for CABG. Pt underwent CABG x 2 (ACEVEDO-LAD SVG-circumflex) with Dr. Colmenares on 10/16/2022 which he tolerated well without immediate complications. Pt was transferred to CVICU in stable condition and extubated on time per early extubation protocol. POD#1 was uneventful. Transferred to [facility] on 10/18/22 POD#2 when he was first noted to have brief episodes of atrial fibrillation lasting ~ 10 seconds with reports of pounding chest. Due to continued PAF, pts metoprolol was increased to 50 mg TID and amiodarone was started prior to DC. He was initiated on Eliquis, and Plavix was resumed (no ASA) He was seen by urology for post op urinary retention and required mendiola re-insertion, home flomax. He passed voiding trial and has been voiding since He was discharged on 10/23/22 to home with [facility]. Per chart review, pt called weekend of 10/31-11/01 with reports for HR in 30s-low 50s and was advised by to stop metoprolol and amiodarone. He was seen by [facility] 11/03/22 for one week post discharge follow up. HR 60-70s, attempted to restart low dose metoprolol. Pt called 11/13/22 reporting left sided chest pain, constantly dull, other times sharp with movement for which he's taking tylenol. No other associated symptoms. Didn't tolerate low dose metop due to HR 50s. He was taking tramadol up until the week prior when pain had mostly subsided. He was encouraged to try heat/ice, continue scheduled tylenol, lido patches, resume losartan 50 mg daily and Rx sent for tramadol 50 mg BID PRN x 5 days #10. Pt presents to office today for follow up of the above, and 4 week post surgery follow up. Interval events: On encounter, pt reports: doing overall well Fever/chills: denies Dizziness/lightheadedness/syncope: some slight lightheadedness when I first get up from sitting then resolves Chest pain/palpitations/incisional pain: my heart racing 130 some yesterday and then it will stop and go back to normal, and then sometimes it will go to 30, most of the time it's in the 70s. Feels like it's pounding, clear up into my throat, even when it's going slow. Occurs mostly when laying flat, or shifting weight to my left side, sharp pains only if moving a certain way, cough or take a deep breath. It wasn't doing it until last Wednesday, before that it didn't seem like I had all that much pain, I had the heart thing flippety flop but not the pain. Reminds me like when I have a pulled muscle Any drainage from site: denies SOB/cough: little cough pretty much normal for me and I get a lot of drainage from sinuses and have asthma Denies shortness of breath Activ (more content not included)...[facility]02-13-2023 Note HNO ID: [id number] Author: RT Parveen(R) Service: Radiology Author Type: Technologist Type: Progress Notes Filed: 11/16/2022 12:24 PM Note Text: Radiology Service Progress Note PATIENT NAME: Denton Wesley DATE OF SERVICE: November 16, 2022 TIME: 12:24 PM PATIENT IDENTITY VERIFICATION COMPLETED USING TWO (2) IDENTIFIERS: Name and Date of confirmed by patient verbally. FALL SCREENING: Has the patient had 2 falls in the last year or 1 fall with injury or currently using an Ambulatory Assistive Device (Walker, Cane, Wheelchair, Crutches, etc.)? No PATIENT GENDER DATA: Male PATIENT RELEVANT IMPLANT DATA REVIEWED: Not Applicable RADIOLOGY DEPARTMENT: General X-ray: Exam(s) Completed: Chest X-Ray PERIPHERAL IV DATA: Not applicable SIGNED BY: RT Parveen(R) November 16, 2022 12:24 [facility]02-13-2023 History of Present illness Narrative* Vern Mills APRN.TECHNICAL SUPPORT CONSULTANT - 11/16/2022 1:00 PM EST HPI: (Per CIRO on 07/13/22): Mr. Wesley is a 72 year old male presenting back to the office for evaluation for coronary artery disease and possible CABG. Mr. Wesley is a 72 year old male former remote smoker with a history of hypertension, hyperlipidemia, type 2 diabetes controlled with dietary modifications, asthma, and CAD status post PCI in 2016. He presents to the office for evaluation of progressive significant coronary artery disease on heart catheterization and few months of exertional chest discomfort. Nuclear stress test in June 2021 which demonstrated no evidence of ischemia or infarction. Medical therapy did not relieve his symptoms, and he was taken for heart catheterization. Johana have elevated PSA levels concerning for malignancy and he also has significant exposure to agent orange in the . Cardiac catheterization demonstrates nonsignificant disease in the RCA and patent stents in the PDA and PL branches with distal tapering of vessel not amenable for bypass. The circumflex branch is likely graftable vessel in its mid segment, however distally the vessel also tapers very significantly and my concern is the outflow of the graft is not good enough to maintaingraft patency. The LAD is a large vessel and has proximal stenoses just prior to the stent as well as at its takeoff from the left main. Since his last office visit, the patient has obtained a TTE, endocrinology consult, PFTs, CT of the chest, and carotid artery studies, all of which returned without any surprises as below. We presented the patient in our multidisciplinary heart team conference and the recommendation was for CABG over PCI. The patient also was found to have an elevated PSA, forwhich he is due to get a biopsy tomorrow on 07/14. He continues to have some exertional chest discomfort, however he feels this has improved slightly since our last office visit. Pt underwent prostate biopsy on 07/14/22 as scheduled; which revealed prostatic adenocarcinoma. Uro has plans for activesurveillance and is okay to proceed with CABG. Per pt's request he wanted to wait until after the holidays for CABG. Pt underwent CABG x 2 (ACEVEDO-LAD SVG-circumflex) with Dr. Colmenares on 10/16/2022 which he tolerated well without immediate complications. Pt was transferred to CVICU in stable condition and extubated on time per early extubation protocol. POD#1 was uneventful. Transferred to 4200 on 10/18/22 POD#2 when he was first noted to have brief episodes of atrial fibrillation lasting ~ 10 seconds with reports of pounding chest. Due to continued PAF, pts metoprolol was increased to 50 mg TID and amiodarone was started prior to DC. He was initiated on Eliquis, and Plavix was resumed (no ASA) He was seen by urology for post op urinary retention and required mendiola re-insertion, home flomax. He passed void ing trial and has been voiding since He was discharged on 10/23/22 to home with [facility]. Per chart review, pt called weekend of 10/31-11/01 with reports for HR in 30s-low 50s and was advisedby MD to stop metoprolol and amiodarone. He was seen by [facility] 11/03/22 for one week postdischarge follow up. HR 60-70s, attempted to restart low dose metoprolol. Pt called 11/13/22 reporting left sided chest pain, constantly dull, other times sharp with movementfor which he's taking tylenol. No other associated symptoms. Didn't tolerate low dose metop due to HR 50s. He was taking tramadol up until the week prior when pain had mostly subsided. He was encouraged to try heat/ice, continue scheduled tylenol, lido patches, resume losartan 50 mg daily and Rx sent for tramadol 50 mg BID PRN x 5 days #10. Pt presents to office today for follow up of the above, and 4 week post surgery follow up. Interval events: On encounter, pt reports: doing overall well Fever/chills: denies Dizziness/lightheadedness/syncope: some slight lightheadedness when I first get up from sitting then resolves Chest pain/palpitations/incisional pain: my heart racing 130 some yesterday and then it will stop and go back to normal, and then sometimes it will go to 30, most of the time it's in the 70s. Feels like it's pounding, clear up into my throat, even when it's going slow. Occurs mostly when laying flat, or shifting weight to my left side, sharp pains only if moving a certain way, cough or take adeep breath. It wasn't doing it until last Wednesday, before that it didn't seem like I had all that much pain, I had the heart thing flippety flop but not the pain. Reminds me like when I have a pulled muscle Any drainage from site: denies SOB/cough: little cough pretty much normal for me and I get a lot of drainage from sinuses and have asthma Denies shortness of breath Activity/Ambulation/Stairs: walking ok, doing stairs Appetite: good N/V/D/C/abdominal pain: little nausea no vomiting, no abdominal pain, good bowel movements Leg swelling: little bit in my ankle, still don't have much feeling in my left leg doesn't bother me too much says 7-8 years ago had an accident to LLE and hasn't been the same since LLE numbnesssubsiding Sleep: good Energy: improved, getting back to normal Weights: 3# gain since 10/25/22 BP & HR log reviewed: seems like blood pressure coming down since starting losartan. Reviewedlog, SBP 130-150s, HR 70-80s Blood sugars: 140-150 Subjective: Current Outpatient Medications Medication Sig clopidogrel (PLAVIX) 75 mg tablet Take 1 tablet by mouth once daily. losartan (COZAAR) 25 mg tablet Take 1 tablet by mouth once daily. traMADol (ULTRAM) 50 mg tablet Take 1 tablet by mouth twice daily as needed for pain for up to 5 days. metoprolol tartrate, short acting, (LOPRESSOR) 50 mg tablet Take 0.5 tablets by mouth twice daily. Hold for SBP <100/x or heart rate <60 acetaminophen (TYLENOL) 500 mg tablet Take 2 tablets by mouth four times daily. (Patient not taking: Reported on 11/03/2022) apixaban (ELIQUIS) 5 mg tab(s) Take 1 tablet by mouth twice daily. lidocaine (SALONPAS) 4 % patch Apply 1 Patch as directed once daily. Please cut patch in half lengthwise and apply to either side of sternal incision. Leave on for 12 hours then remove for 12 hours. (Patient not taking: Reported on 11/03/2022) guaiFENesin (MUCINEX) 600 mg 12 hr tablet Take 1 tablet by mouth twice daily as needed for cold/allergy symptoms. loratadine (CLARITIN) 10 mg tablet Take 1 tablet by mouth once daily. nitroglycerin sublingual (NITROQUICK) 0.4 mg SL tablet Dissolve 0.4 mg under the tongue every 5 minutes as needed. lansoprazole (PREVACID) 30 mg capsule Take 1 capsule by mouth daily before breakfast. 1/2 hr beforemeal. tamsulosin (FLOMAX) 0.4 mg Take 1 capsule by mouth daily at bedtime. FARXIGA 10 mg tablet Take 10 mg by mouth once daily. alirocumab (PRALUENT PEN) 75 mg/mL pen Inject 1 mL subcutaneously every other week. ADVAIR DISKUS 500-50 mcg/dose dsdv INHALE 1 (ONE) puff EVERY 12 HOURS Current Facility-Administered Medications Medication Dose Route Frequency perflutren lipid microspheres 1.3 mL in NaCl (PF) 0.9% 10 mL injection (DEFINITY) INTRAVENOUS DIRECTED PRN sodium chloride 0.9 % (flush) 10 mL (BD POSIFLUSH) 10 mL INTRAVENOUS DIRECTED PRN perflutren lipid microspheres 1.3 mL in NaCl (PF) 0.9% 10 mL injection (DEFINITY) INTRAVENOUS DIRECTED PRN sodium chloride 0.9 % (flush) 10 mL (BD POSIFLUSH) 10 mL INTRAVENOUS DIRECTED PRN Gemfibrozil, Rosuvastatin, Simvastatin, Imdur [Isosorbide], Penicillins, and Pravastatin PAST MEDICAL HISTORY Diagnosis Date Abdominal pain, other specified site Asthma Awareness under anesthesia CAD (coronary artery disease) Cholelithiasis 09/25/2013 Colitis Diabetes mellitus (HCC) type 2 diet controlled Esophageal reflux Gastroesophageal reflux Hypertension Impotence of organic origin Impotence SUJEY (obstructive sleep apnea) RUQ abdominal pain 09/25/2013 PAST SURGICAL HISTORY Procedure Laterality Date CABG (2) VEIN GRAFTS & ARTERIAL GRAFT(S 10/16/2022 COLONOSCOPY FLX DX W/COLLJ SPEC WHEN PFRMD Colonoscopy Dr. Ferreira ESOPHAGOGASTRODUODENOSCOPY TRANSORAL DIAGNOSTIC EGD Dr. Ferreira LAPAROSCOPY SURG CHOLECYSTECTOMY 09/25/2013 PAST SURGICAL HISTORY OF I&D left hand PAST SURGICAL HISTORY OF Removal cyst on back PROSTATE BIOPSY GUKI 07/14/2022 STENT PLACEMENT 4 Stents FAMILY HISTORY Problem Relation Age of Onset Colon Cancer Mother Heart Mother Ovarian cancer Mother Prostate Cancer Brother Stroke Brother Emphysema Father Social History Tobacco Use Smoking status: Former Types: Cigarettes Quit date: 10/27/2011 Years since quittin.0 Smokeless tobacco: Never Vaping Use Vaping Use: Never used Substance Use Topics Alcohol use: Yes Comment: 1 beer in the evening occasionally Drug use: No ROS - see HPI Objective: CXR from today, final read pending but appears unremarkable, reviewed imaging with Dr. Colmenares Physical Examination: Vitals:There were no vitals taken for this visit. Last 2 Encounter Wt Readings: Date: Wt: 11/03/2022 222 lb 6.4 oz (100.9 kg) 10/02/2022 227 lb 3.2 oz (103.1 kg) Physical Exam Vitals and nursing note reviewed. Constitutional: General: He is not in acute distress. HENT: Mouth/Throat: Mouth: Mucous membranes are moist. Eyes: Extraocular Movements: Extraocular movements intact. Conjunctiva/sclera: Conjunctivae normal. Cardiovascular: Rate and Rhythm: Normal rate and regular rhythm. Pulses: Normal pulses. Heart sounds: Normal heart sounds. No murmur heard. No friction rub. No gallop. Pulmonary: Effort: No respiratory distress. Breath sounds: Normal breath sounds. No wheezing, rhonchi or rales. Abdominal: General: Bowel sounds are normal. There is no distension. Palpations: Abdomen is soft. Musculoskeletal: Right lower leg: No edema. Left lower leg: Edema (1+ ankle) present. Comments: + sternal stability Skin: General: Skin is warm and dry. 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 Mental Status: He is alert and oriented to person, place, and time. Comments: + sensation BLE Psychiatric: Mood and Affect: Mood normal. Behavior: Behavior normal. Assessment and Plan: MVCAD - S/p CABG x 2 (acevedo-lad, svg-circumflex;evh) on 10/16/[address] Colmenares - EF 64% pre-op - Pt doing well overall - Will not resume beta ari due to episodes of bradycardia - Having episodes of intermittent sharp left sided chest pain when coughing/deep breathing/moving certain positions; Low suspicion for acute problem such as pericarditis, afebrile, hemodynamically stable; Suspect musculoskeletal - Encouraged acetaminophen scheduled around the clock which he's been using PRN - States he doesn't find lido patches effective - Encouraged to try hot/cold application for pain - Continue HH diet; reinforced low NA diet and 2 Liter fluid restriction, daily weight monitoring - Can discontinue thoracic vest and extend sternal precautions to no lifting/pushing/pulling more than 15-20 pounds - Ok to drive - Continue TEDs and BLE elevation while in bed or chair - Continue IS, VNS, mobilization - Appears euvolemic with stable weights, no need to restart lasix at this time - Ok to start outpt cardiac rehab- orders placed previously, pt to return their call to schedule - CXR final read pending from this morning but appears unremarkable, reviewed imaging with Dr. Colmenares - Follow-up with CINDY/DR. Pacheco 12/21/22 - will send message regarding HR 30-130 per pt report, ? May need ambulatory event monitor - ASA discontinued 10/21 when home plavix was resumed for history of prior PCI - continue plavix - Holding statin d/t intolerance, home alirocumab injection resumed at discharge Paroxysmal atrial fibrillation - HRR at today's visit, pt reports HR 30s - 130s at times, mostly at HS - will send message to cardiology as above - NSR on EKG today - [id number] - Continue Eliquis 5 mg BID started 10/21, Rx sent today - Amiodarone DCd around 11/01/22 due to low heart rates, will continued to hold, deferring to cardiology - Will not restart metoprolol 25 mg oral BID due to reports of bradycardia - Continue to monitor BP trends and bring log to cardiology and PCP visit T2DM - Last HA1C was 6.9 - Hx of T2DM; home regimen includes: farxiga - am BGTs 140-150s per patient - continues on home Farziga - set to see established endo- Dr. Rodgers in December History of HTN - Suboptimal Bps - Will not restart low dose metoprolol 25 mg oral BID due to bradycardia - Increase losartan to 50 mg daily - Home regimen prior to surgery including: Coreg 37.5 mg BID and Losartan 100 mg daily HLD - Pt reported intolerant to statins - Home med prior to surgery includes Praluent subQ every other week Urinary Retention - Voiding without issue since hospital DC - Hx of prostate cancer - Started flomax 10/16/21 - Follow up with urology Dr. Tolbert OP 01/06 History of prostate cancer - Continue home Flomax - Per patient, no active treatment, monitoring - Follows with urology- set for follow up 01/06 Good post-op recovery for 1 month follow up Ok to start driving and return to work and gradually resume normal ADLs as tolerated. Cardiac rehabilitation: ordered placed previously for [facility], proceed as scheduled. 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 Pacheco for tachy-bradycardia; Placed new referral for EP. Will ask office staff to notify patient. Also, reviewed CXR from today showing, IMPRESSION: Trace left pleural effusion remains, but findings are improved from prior. Streaky opacities in left mid and lower lung, likely related to some atelectasis, although pneumonia could be considered in the correct clinical setting. documented in this encounterU[facility]02-13-[facility]23 History of Present illness Narrative* RAMESH SainiR) - 11/16/2022 11:50 AM EST Radiology Service Progress Note PATIENT NAME: Denton Wesley DATE OF SERVICE: November 16, 2022 TIME: 12:24 PM PATIENT IDENTITY VERIFICATION COMPLETED USING TWO (2) IDENTIFIERS: Name and Date of confirmedby patient verbally. FALL SCREENING: Has the patient had 2 falls in the last year or 1 fall with injury or currently using an Ambulatory Assistive Device (Walker, Cane, Wheelchair, Crutches, etc.)? No PATIENT GENDER DATA: Male PATIENT RELEVANT IMPLANT DATA REVIEWED: Not Applicable RADIOLOGY DEPARTMENT: General X-ray: Exam(s) Completed: Chest X-Ray PERIPHERAL IV DATA: Not applicable SIGNED BY: RT Parveen(R) November 16, 2022 12:24 PM documented in this encounterUc [facility] Center02-13-2023 Instructions* Patient Instructions* Vern Mills APRN.CNP - 11/16/2022 8:45 AM EST You have done a great job recovering from you surgery, moving forward, here are the recommendations: Medications: please continue taking eliquis. Please avoid taking NSAIDs (Aleve, Ibuprofen, Motrin, Advil, Mobic etc). Take acetaminophen (Tylenol) 1000 mg four times daily for pain. Try heat/ice application for pain. Increase losartan to 50 mg daily for blood pressure. Driving: Ok to drive now! Vest: ok to stop using Cardiac Rehab: [phone] ([facility]) or [phone] ([facility] [phone] ([facility], floor 1) You will have a EKG stress test before and after the cardiac rehab, which [facility]. Restrictions: slowly increase weight bearing in a gradual fashion (5-10 lbs increment each month) over the next 2-3 months to allow further healing, then gradually resume your normal activities depending on how you feel. Follow-ups: It is crucial to establish future appointments with your main providers, they are you equal opportunity director , primary care doctor, endocrinology and/or your urologist for medications refills/questions and future health management. You can follow up with cardiac surgery team on as needed basis. Please don't hesitate to contact us if you have any concerns/questions: [phone] Thanks for coming in to see me today. Vern Mills APRN.MANNY documented in this encounterUc Medical Center02-01-2023 Miscellaneous Notes* Telephone Encounter - Brenton Bagley - 11/04/2022 10:16 AM EST [facility] phone [phone] fax [phone] Orders, 11/03/22 office encounter, & operative report faxed on 11/04/22 documented in this encounterUc Medical Center01-31-2023 NoteHNO ID: [id number] Author: Wai Adair APRN.TECHNICAL SUPPORT CONSULTANT Service: ? Author Type: Nurse Practitioner Type: Progress Notes Filed: 11/03/2022 3:12 PM Note Text: HPI: (Per CIRO on 07/13/22): Mr. Wesley is a 72 year old male presenting back to the office for evaluation for coronary artery disease and possible CABG. Mr. Wesley is a 72 year old male former remote smoker with a history of hypertension, hyperlipidemia, type 2 diabetes controlled with dietary modifications, asthma, and CAD status post PCI in 2015. He presents to the office for evaluation of progressive significant coronary artery disease on heart catheterization and few months of exertional chest discomfort. Nuclear stress test in June 2021 which demonstrated no evidence of ischemia or infarction. Medical therapy did not relieve his symptoms, and he was taken for heart catheterization. He does have elevated PSA levels concerning for malignancy and he also has significant exposure to agent orange in the . Cardiac catheterization demonstrates nonsignificant disease in the RCA and patent stents in the PDA and PL branches with distal tapering of vessel not amenable for bypass. The circumflex branch is likely graftable vessel in its mid segment, however distally the vessel also tapers very significantly and my concern is the outflow of the graft is not good enough to maintain graft patency. The LAD is a large vessel and has proximal stenoses just prior to the stent as well as at its takeoff from the left main. Since his last office visit, the patient has obtained a TTE, endocrinology consult, PFTs, CT of the chest, and carotid artery studies, all of which returned without any surprises as below. We presented the patient in our multidisciplinary heart team conference and the recommendation was for CABG over PCI. The patient also was found to have an elevated PSA, for which he is due to get a biopsy tomorrow on 07/14. He continues to have some exertional chest discomfort, however he feels this has improved slightly since our last office visit. Pt underwent prostate biopsy on 07/14/22 as scheduled; which revealed prostatic adenocarcinoma. Uro has plans for active surveillance and is okay to proceed with CABG. Per pt's request he wanted to wait until after the holidays for CABG. Pt underwent CABG x 2 (ACEVEDO-LAD SVG-circumflex) with Dr. Colmenares on 10/16/2022 which he tolerated well without immediate complications. Pt was transferred to CVICU in stable condition and extubated on time per early extubation protocol. POD#1 was uneventful. Transferred to [facility] on 10/18/22 POD#2 when he was first noted to have brief episodes of atrial fibrillation lasting ~ 10 seconds with reports of pounding chest. Due to continued PAF, pts metoprolol was increased to 50 mg TID and amiodarone was started prior to DC. He was initiated on Eliquis, and Plavix was resumed (no ASA) He was seen by urology for post op urinary retention and required mendiola re-insertion, home flomax. He passed voiding trial and has been voiding since Interval events: reports he called precision honer this weekend with concerns for heart rate in 30s-low 50s. Was advised by MD to stop metoprolol and amiodarone. He reports now that is HR is 60-70s. No lightheadedness or dizziness event with the lower HRs. No near syncop. Some fatigue. Feels he is recovering well. No chest pain, palp, sob. Denton Wesley reports home recovery as listed below: Episodes of dizziness or syncope: no Chest pain: no- just some sternal achiness, relived with PRN tramadol Palpitations: ocassional pounding in chest at HS especially when lying time, fleeting, lasting sometimes 15-20 minutes BP: reviewed per home lo-158/80s. Weight 217 at DC, now at 220 lbs Tolerating diet well without changing bowel habits: yes, no n/v/d Fever, chills: no Activities at home with/without SOB or MCCOY: walks frequently around the house, helping , but adhering to sternal precautions. Post surgical pain with pain medications - see above. Leg edema: no Sleep: good Energy: varies, takes breaks and then feels better Subjective: Current Outpatient Medications Medication Sig apixaban (ELIQUIS) 5 mg tab(s) Take 1 tablet by mouth twice daily. metoprolol tartrate, short acting, (LOPRESSOR) 50 mg tablet Take 1 tablet by mouth every 8 hours. guaiFENesin (MUCINEX) 600 mg 12 hr tablet Take 1 tablet by mouth twice daily as needed for cold/allergy symptoms. loratadine (CLARITIN) 10 mg tablet Take 1 tablet by mouth once daily. nitroglycerin sublingual (NITROQUICK) 0.4 mg SL tablet Dissolve 0.4 mg under the tongue every 5 minutes as needed. lansoprazole (PREVACID) 30 mg capsule Take 1 capsule by mouth daily before breakfast. 1/2 hr before meal. tamsulosin (FLOMAX) 0.4 mg Take 1 capsule by mouth daily at bedtime. FARXIGA 10 mg tablet Take 10 mg by mouth once daily. alirocumab (PRALUENT PEN) 75 mg/mL pen (more content not included)...[facility]01-31-2023 Instructions* Patient Instructions* Wai Adair APRN.CNP - 11/03/2022 1:49 PM EST Weight: Please continue monitoring daily weight; call if increase of 3 lbs in a day or 5 lbs in a week Activity:Continue gradual increase in activities as tolerated; Diet: Heart healthy diet with good protein intake; green leafy vegetable, low salt, and 2 L fluid daily Devices: Wear supportive stockings until leg swelling improved; posthorax vest (up to 1 month) during daytime and off at nighttime; Restrictions: Continue the weight limit to less than 10 lbs (for one month), and no driving until cleared by your providers; Advice: please change position slowly to prevent fall due to dizziness; Upcoming appointments: Please follow up back here in 3-4 weeks with chest x-ray prior to that appointment Please make cardiology appointment in 4-6 weeks- Dr. Pacheco Please make primary care appointment in 4-6 weeks Thanks for coming in to see me today. Please call us if you have any concerns/questions: [phone] Wai Adair APRN.CNP documented in this encounterUc Medical Center01-31-2023 History of Present illness Narrative* Wai Adair APRN.CNP - 11/03/2022 1:11 PM EST HPI: (Per CIRO on 07/13/22): Mr. Wesley is a 72 year old male presenting back to the office for evaluation for coronary artery disease and possible CABG. Mr. Wesley is a 72 year old male former remote smoker with a history of hypertension, hyperlipidemia, type 2 diabetes controlled with dietary modifications, asthma, and CAD status post PCI in 2015. He presents to the office for evaluation of progressive significant coronary artery disease on heart catheterization and few months of exertional chest discomfort. Nuclear stress test in June 2021 which demonstrated no evidence of ischemia or infarction. Medical therapy did not relieve his symptoms, and he was taken for heart catheterization. Johana have elevated PSA levels concerning for malignancy and he also has significant exposure to agent orange in the . Cardiac catheterization demonstrates nonsignificant disease in the RCA and patent stents in the PDA and PL branches with distal tapering of vessel not amenable for bypass. The circumflex branch is likely graftable vessel in its mid segment, however distally the vessel also tapers very significantly and my concern is the outflow of the graft is not good enough to maintaingraft patency. The LAD is a large vessel and has proximal stenoses just prior to the stent as well as at its takeoff from the left main. Since his last office visit, the patient has obtained a TTE, endocrinology consult, PFTs, CT of the chest, and carotid artery studies, all of which returned without any surprises as below. We presented the patient in our multidisciplinary heart team conference and the recommendation was for CABG over PCI. The patient also was found to have an elevated PSA, forwhich he is due to get a biopsy tomorrow on 07/14. He continues to have some exertional chest discomfort, however he feels this has improved slightly since our last office visit. Pt underwent prostate biopsy on 07/14/22 as scheduled; which revealed prostatic adenocarcinoma. Uro has plans for activesurveillance and is okay to proceed with CABG. Per pt's request he wanted to wait until after the holidays for CABG. Pt underwent CABG x 2 (ACEVEDO-LAD SVG-circumflex) with Dr. Colmenraes on 10/16/2022 which he tolerated well without immediate complications. Pt was transferred to CVICU in stable condition and extubated on time per early extubation protocol. POD#1 was uneventful. Transferred to 4200 on 10/18/22 POD#2 when he was first noted to have brief episodes of atrial fibrillation lasting ~ 10 seconds with reports of pounding chest. Due to continued PAF, pts metoprolol was increased to 50 mg TID and amiodarone was started prior to DC. He was initiated on Eliquis, and Plavix was resumed (no ASA) He was seen by urology for post op urinary retention and required mendiola re-insertion, home flomax. He passed void ing trial and has been voiding since Interval events: reports he called precision honer this weekend with concerns for heart rate in 30s-low 50s. Was advised by MD to stop metoprolol and amiodarone. He reports now that is HR is 60-70s. No lightheadedness or dizziness event with the lower HRs. No near syncop. Some fatigue. Feels he is recovering well. No chest pain, palp, sob. Denton Wesley reports home recovery as listed below: Episodes of dizziness or syncope: no Chest pain: no- just some sternal achiness, relived with PRN tramadol Palpitations: ocassional pounding in chest at HS especially when lying time, fleeting, lasting sometimes 15-20 minutes BP: reviewed per home lo-158/80s. Weight 217 at DC, now at 220 lbs Tolerating diet well without changing bowel habits: yes, no n/v/d Fever, chills: no Activities at home with/without SOB or MCCOY: walks frequently around the house, helping , but adhering to sternal precautions. Post surgical pain with pain medications - see above. Leg edema: no Sleep: good Energy: varies, takes breaks and then feels better Subjective: Current Outpatient Medications Medication Sig apixaban (ELIQUIS) 5 mg tab(s) Take 1 tablet by mouth twice daily. metoprolol tartrate, short acting, (LOPRESSOR) 50 mg tablet Take 1 tablet by mouth every 8 hours. guaiFENesin (MUCINEX) 600 mg 12 hr tablet Take 1 tablet by mouth twice daily as needed for cold/allergy symptoms. loratadine (CLARITIN) 10 mg tablet Take 1 tablet by mouth once daily. nitroglycerin sublingual (NITROQUICK) 0.4 mg SL tablet Dissolve 0.4 mg under the tongue every 5 minutes as needed. lansoprazole (PREVACID) 30 mg capsule Take 1 capsule by mouth daily before breakfast. 1/2 hr beforemeal. tamsulosin (FLOMAX) 0.4 mg Take 1 capsule by mouth daily at bedtime. FARXIGA 10 mg tablet Take 10 mg by mouth once daily. alirocumab (PRALUENT PEN) 75 mg/mL pen Inject 1 mL subcutaneously every other week. clopidogrel (PLAVIX) 75 mg tablet Take 1 tablet by mouth once daily. ADVAIR DISKUS 500-50 mcg/dose dsdv INHALE 1 (ONE) puff EVERY 12 HOURS acetaminophen (TYLENOL) 500 mg tablet Take 2 tablets by mouth four times daily. (Patient not taking: Reported on 11/03/2022) Amiodarone HCl 400 mg tablet Take 1 tablet by mouth three times daily for 4 days, THEN 1 tablet by mouth twice daily for 5 days, THEN 1 tablet by mouth once daily for 5 days, THEN 1/2 of a tablet by mouth once daily for 5 days. (Patient not taking: Reported on 11/03/2022) lidocaine (SALONPAS) 4 % patch Apply 1 Patch as directed once daily. Please cut patch in half lengthwise and apply to either side of sternal incision. Leave on for 12 hours then remove for 12 hours. (Patient not taking: Reported on 11/03/2022) magnesium oxide (MAG-OX) 400 mg (241.3 mg magnesium) tablet Take 1 tablet by mouth once daily. (Patient not taking: Reported on 11/03/2022) melatonin 3 mg tablet Take 1 tablet by mouth at bedtime as needed (insomnia). (Patient not taking: Reported on 11/03/2022) Current Facility-Administered Medications Medication Dose Route Frequency perflutren lipid microspheres 1.3 mL in NaCl (PF) 0.9% 10 mL injection (DEFINITY) INTRAVENOUS DIRECTED PRN sodium chloride 0.9 % (flush) 10 mL (BD POSIFLUSH) 10 mL INTRAVENOUS DIRECTED PRN perflutren lipid microspheres 1.3 mL in NaCl (PF) 0.9% 10 mL injection (DEFINITY) INTRAVENOUS DIRECTED PRN sodium chloride 0.9 % (flush) 10 mL (BD POSIFLUSH) 10 mL INTRAVENOUS DIRECTED PRN Gemfibrozil, Rosuvastatin, Simvastatin, Imdur [Isosorbide], Penicillins, and Pravastatin PAST MEDICAL HISTORY Diagnosis Date Abdominal pain, other specified site Asthma Awareness under anesthesia CAD (coronary artery disease) Cholelithiasis 09/25/2013 Colitis Diabetes mellitus (HCC) type 2 diet controlled Esophageal reflux Gastroesophageal reflux Hypertension Impotence of organic origin Impotence SUJEY (obstructive sleep apnea) RUQ abdominal pain 09/25/2013 PAST SURGICAL HISTORY Procedure Laterality Date CABG (2) VEIN GRAFTS & ARTERIAL GRAFT(S 10/16/2022 COLONOSCOPY FLX DX W/COLLJ SPEC WHEN PFRMD Colonoscopy Dr. Ferreira ESOPHAGOGASTRODUODENOSCOPY TRANSORAL DIAGNOSTIC EGD Dr. Ferreira LAPAROSCOPY SURG CHOLECYSTECTOMY 09/25/2013 PAST SURGICAL HISTORY OF I&D left hand PAST SURGICAL HISTORY OF Removal cyst on back PROSTATE BIOPSY GUKI 07/14/2022 STENT PLACEMENT 4 Stents FAMILY HISTORY Problem Relation Age of Onset Colon Cancer Mother Heart Mother Ovarian cancer Mother Prostate Cancer Brother Stroke Brother Emphysema Father Social History Tobacco Use Smoking status: Former Types: Cigarettes Quit date: 10/27/2011 Years since quittin.0 Smokeless tobacco: Never Vaping Use Vaping Use: Never used Substance Use Topics Alcohol use: Yes Comment: 1 beer in the evening occasionally Drug use: No Review of Systems Constitutional: Negative for chills, fever and weight loss. Respiratory: Negative for cough, hemoptysis, sputum production, shortness of breath and wheezing. Cardiovascular: Negative for chest pain, palpitations, orthopnea and leg swelling. Genitourinary: Negative for dysuria, flank pain and hematuria. Skin: Negative for itching and rash. Neurological: Negative for dizziness, loss of consciousness and weakness. Endo/Heme/Allergies: Does not bruise/bleed easily. Objective: Physical Examination: Vitals:BP 136/74 Pulse 74 Resp 16 Ht 6' 0 (1.83m) Wt 222 lb 6.4 oz (100.9kg) BMI 30.16 kg/(m^2). BP w/Orthostatic Vitals Date and Time Orthostatic BP Orthostatic Pulse BP Pulse BP Position BP Site BP Cuff Size 11/03/22 1300 -- -- 136/74 74 Sitting Left Arm -- Peak Flow Date and Time PF Resp 11/03/22 1300 -- 16 Last 2 Encounter Wt Readings: Date: Wt: 11/03/2022 100.9 kg (222 lb 6.4 oz) 10/02/2022 103.1 kg (227 lb 3.2 oz) Physical Exam Vitals reviewed. Constitutional: Appearance: Normal appearance. HENT: Head: Normocephalic. Nose: Nose normal. Eyes: Extraocular Movements: Extraocular movements intact. Conjunctiva/sclera: Conjunctivae normal. Pupils: Pupils are equal, round, and reactive to light. Cardiovascular: Rate and Rhythm: Normal rate and regular rhythm. Pulmonary: Effort: Pulmonary effort is normal. Breath sounds: Normal breath sounds. Abdominal: General: Bowel sounds are normal. Palpations: Abdomen is soft. Musculoskeletal: Right lower leg: No edema. Left lower leg: No edema. Skin: General: Skin is warm and dry. Capillary Refill: Capillary refill takes less than 2 seconds. Comments: MSI and CT sites well approximated and healing. Sternal bones stable. No s/sx of infection. Left leg harvest sites well approximated and healing. No s/sx of infection Neurological: Mental Status: He is alert and oriented to person, place, and time. Psychiatric: Mood and Affect: Mood normal. Behavior: Behavior normal. Thought Content: Thought content normal. Judgment: Judgment normal. Assessment and Plan: MVCAD - S/p CABG x 2 (acevedo-lad, svg-circumflex;evh) - EF 64% pre-op - Pt doing well overall - resume low dose beta ari with hold parameters, monitor closely - Pain controlled; continue ERAS - Continue HH diet; reinforced low NA diet and 2Liter fluid restriction, daily weight monitoring - Continue thoracic vest and sternal precautions (no lifting, pushing, pulling > 10 lbs. No driving) - Continue TEDs and BLE elevation while in bed or chair - Continue IS, VNS, mobilization - appears euvolemic with stable weights, no need to restart lasix at this time - Outpt cardiac rehab in 1 month: orders placed - Follow-up in 3 weeks with CXR prior - Follow-up with CINDY/DR. Pacheco in 1 month, pt encouraged to call to set up appointment - ASA discontinued 10/21 when home plavix was resumed for history of prior PCI - continue - Holding statin d/t intolerance, home alirocumab injection resumed at discharge Paroxysmal atrial fibrillation - HRRR at today's visit, reports feeling of pounding chest 15-20min at HS periodically - [id number] - Continue Eliquis 5 mg BID started 10/21 - Amiodarone DCd this weekend due to low heart rates, will continued to hold - restart metoprolol 25 mg oral BID with hold parameters - Continue to monitor BP trends and bring log to next visit T2DM - Last HA1C was 6.9 - Hx of T2DM; home regimen includes: farxiga - am BGTs 120-140 - continues on home Farziga - set to see established endo- Dr. Rodgers in a few week History of HTN - suboptimal BPs - restart low dose metoprolol 25 mg oral BID with hold parameters - Home regimen including: Coreg 37.5 mg BID and Losartan 100 mg daily HLD - Pt reported intolerant to statins - Home med includes Praluent subQ every other week Urinary Retention - voiding without issue since hospital DC - Hx of prostate cancer - Started flomax 10/16/21 - Follow up with urology Dr. Tolbert OP 12/10 History of prostate cancer -Continue home Flomax -Per patient, no active treatment, monitoring -Follows with urology- set for follow up in December Wai Adair APRN.CNP . Electronically signed by Wai Adair APRN.CNP on November 03, 2022, 1:11 PM documented in this encounterU[facility]23 History of Present illness Narrative* Lola Aguayo RN - 10/26/2022 2:04 PM EST TRANSITIONAL CARE MANAGEMENT (TCM) COMMUNITY MONITORING PROGRAM Provider Action/FYI: Pt is s/p CABG x 2 Vasc Surg 11/03/22 and PCP 11/13/22 Spoke with patient, denies chest pain, some sob at times with exertion but quickly resolves, no N/V, still has some swelling and numbness where they took the vein out of his leg but comes and goes, tolerating diet, taking medications as prescribed, feels better. SUMMARY: Pt discharged from [facility] on 10/23/22. Admitted for: CAD Contact made with patient: Yes Hi my name is Lola Aguayo RN and I am calling [facility] the [facility] on behalf of your PCP,Cali Cordero MD I understand you were recently in the hospital so I am calling to check in with you to ensure you are feeling well now that you're home. May I ask you a few questions related toyour hospital stay and well-being? Yes Contact with patient post discharge, spoke to patient. Patient identified by name and . Do you feel your health is BETTER, WORSE, or the SAME since leaving the hospital? Better ACTION TAKEN: Patient indicated symptoms are better or same, no action required. Continue outreach. MEDICATIONS: Many patients have questions or concerns about their medications once they are home. Do you have any questions about taking your medications or which medication you should be on? No Do you need any medication refills at this time, including any of the medications you might take only when needed? No ACTION TAKEN: No action required For RNs or Pharmacy completing outreach ONLY, was a medication review completed? Yes SOCIAL: We would like to make sure you have what you need so that your basics needs are met - including your personal safety, food, housing and medications. Would you like to speak with a social work meat team member to help give you support for any of these needs? No It can be normal to feel anxious or down during a time like this. Would you like to talk to a mental health professional about how you have been feeling? No ACTION TAKEN: No action taken DISCHARGE INTRUCTIONS: Your discharge instructions / After Visit Summary (AVS) are important in guiding you through the recovery process. Do you have any questions related to your discharge instructions? No Do you have all the necessary equipment and supplies at home? Yes ACTION TAKEN: No action required I would like to help you schedule a hospital follow-up virtual or telephone visit with your PCP. This is a great way for you to connect with your provider to ensure you have safely transitioned home.If you are agreeable, I will send your request to a recruiting scheduler who will contact and assist you with that appointment. This will give you an opportunity to ask any questions or address any concerns youmay have with your PCP. Inform the patient that if they have any questions or concerns prior to that appointment, to call their PCP's office right away. ACTION TAKEN: No action required, patient already has an appointment scheduled. Your doctor would like us to remind you of the recommendations regarding the coronavirus (Covid19) outbreak: Avoid public places as much as possible. Avoid close contact (within 6 feet) with others you don t live with, especially if they are sick. Stay home if you are sick. Wash your hands regularly for at least 20 seconds with soap and water. Wear a cloth mask in public places to help reduce community spread. Do not go to your Doctor s office unless instructed to do so. For any non- emergency symptoms, call your Doctor s office to get instructions on how to manage (we might recommend a telephone or virtualvisit). For emergency symptoms, proceed to Emergency Department as usual but inform them of cough and fever symptoms YAMILE if present (or call on the way if possible). DAYNE Education Ordered -: No TCM Home Visit Referral Source of Stratification: [facility] Hospital Admission Status: Discharged Readmission Risk Score: 12 ARTI Score: 1 Patient meets program referral criteria: No Patient does not qualify for High Risk TCM Home Visit program due to: Discharged home, does not meet program criteria Lola Aguayo RN October 26, 2022 2:17 PM documented in this encounterUc [facility] Center01-22-2023 Miscellaneous Notes* Telephone Encounter - Jennifer Morton RN - 10/25/2022 6:[address] Colmenares. SN saw patient for home care SOC. Pt. manages own medications and has noquestions regarding education given at the hospital with recent CABG. SN reinforced no lifting greater than 10 lbs, no driving and to notify provider if BP or HR is elevated. Pt. has pulse ox and BP cuff to monitor these at home. Pt.s incisions are clean dry and intact. No s/s of infection present.Pt. does not feel he needs further SN visits at this time. Pt. Is not admitted to home care and no further SN visits are scheduled. Thank you in advance for your time. documented in this encounterU[facility] Center01-22-2023 Miscellaneous Notes* HH CARE COORDINATION - Jennifer Morton RN - 10/25/2022 3:42 PM EST [address] [place] [address] SN saw patient at this address today. Pt. ambulating around room and is independent at this time. Pt. manages own medications and has no questions regarding education given at the hospital with recent CABG. SN reinforced no lifting greater than 10lbs, no driving and to notify provider if BP or HR is elevated. Pt. has pulse ox and BP cuff to monitor these at home. Pt.s incisions are clean dry and intact. No s/s of infection present. Pt. does not feel he needs further SN needs at this time and SN agrees. SN notified home care provider. Pt. has providers number readily available if he needs to call with any concerns. documented in this encounterUc Medical Center01-20-2023 NoteHNO ID: [id number] Author: Lita Burgess [facility] Service: Pharmacy Author Type: Pharmacist Type: Plan of Care Filed: 10/23/2022 12:44 PM Note Text: DISCHARGE MEDICATION REVIEW AND COUNSELING BY PHARMACY Patient Name: Denton Wesley Account #: Data Unavailable Admission Date: 10/16/2022 Date of Contact: October 23, 2022 Time of Contact: 12:39 PM LEARNERS Persons Present: Patient Primary Learner: Patient Medication list was reviewed by a Pharmacist for drug interactions or drug related problems:Yes MVCAD; S/p CABG Discussed all medications Re-iterated the importance of STOP meds (losartan and carvedilol) Currently on amiodarone-will re-assess losartan use in follow up. Metoprolol tartrate replacing carvedilol Re-iterated New Meds Apixaban education completed -see formal note 10/23 Pt received Rx meds from [facility] Outpatient pharmacy Discussed with patient the importance of following lifestyle changes, medication regimen and follow up appointments Below is a summary of pharmacist recommendations discussed with LIP: No Recommendations at this time from Discharge Medication List. The patient was counseled on the medication(s) listed below and was given the opportunity to ask questions regarding indication, dosage, side effects and drug interactions READINESS TO LEARN COGNITIVE ABILITY:Alert and oriented MOTIVATION TO LEARN:Eager Interested FAMILY SUPPORT:Unable to assess - Family not present INSTRUCTION PROVIDED TO:Patient PATIENT LEARNS BEST BY:Individual Instruction Written Instruction - Hand-outs Verbal Instruction FACTORS AFFECTING LEARNING:None PHYSICAL LIMITATIONS AFFECTING LEARNING:None LEARNING RESPONSE PATIENT / FAMILY RESPONSE:Verbalizes understanding of: The signs and symptoms of a worsening condition that warrant a call to the physician. The correct actions to take to manage symptoms associated with his/her disease/illness. The physical restrictions and recommendations after discharge from the hospital. Accurate knowledge of prescribed medication prior to discharge. The correct action to take if medication dose is missed. The side effects associated with the medication that warrant a call to the physician. Diet / weight monitoring Lita Burgess RPh October 23, 2022 12:39 PM Medication List START taking these medications Amiodarone HCl 400 mg tablet Take 1 tablet by mouth three times daily for 4 days, THEN 1 tablet by mouth twice daily for 5 days, THEN 1 tablet by mouth once daily for 5 days, THEN 1/2 of a tablet by mouth once daily for 5 days. Start taking on: October 23, 2022 ELIQUIS 5 mg tab(s) Generic drug: apixaban Take 1 tablet by mouth twice daily. lidocaine 4 % patch Commonly known as: SALONPAS Apply 1 Patch as directed once daily. Please cut patch in half lengthwise and apply to either side of sternal incision. Leave on for 12 hours then remove for 12 hours. Start taking on: October 24, 2022 magnesium oxide 400 mg (241.3 mg magnesium) tablet Commonly known as: MAG-OX Take 1 tablet by mouth once daily. Start taking on: October 24, 2022 melatonin 3 mg tablet Take 1 tablet by mouth at bedtime as needed (insomnia). metoprolol tartrate (short acting) 50 mg tablet Commonly known as: LOPRESSOR Take 1 tablet by mouth every 8 hours. traMADol 50 mg tablet Commonly known as: ULTRAM Take 1 tablet by mouth twice daily as needed for pain for up to 7 days. CHANGE how you take these medications acetaminophen 500 mg tablet Commonly known as: TYLENOL Take 2 tablets by mouth four times daily. What changed: medication strength how much to take when to take this reasons to take this CONTINUE taking these medications ADVAIR DISKUS 500-50 mcg/dose Dsdv Generic drug: fluticasone-salmeterol clopidogrel 75 mg tablet Commonly known as: PLAVIX Take 1 tablet by mouth once daily. FARXIGA 10 mg tablet Generic drug: dapagliflozin guaiFENesin 600 mg 12 hr tablet Commonly known as: MUCINEX lansoprazole 30 mg capsule Commonly known as: PREVACID Take 1 capsule by mouth daily before breakfast. 1/2 hr before meal. loratadine 10 mg tablet Commonly known as: CLARITIN nitroglycerin sublingual 0.4 mg SL tablet Commonly known as: NITROQUICK PRALUENT PEN 75 mg/mL pen Generic drug: alirocumab Inject 1 mL subcutaneously every other week. tamsulosin 0.4 mg Commonly known as: FLOMAX Take 1 capsule by mouth daily at bedtime. STOP taking these medications carvedilol 25 mg tablet Commonly known as: COREG losartan 100 mg tablet Commonly known as: COZAAR Where to Get Your Medications These medications were sent to [facility] [address] [place] [id number] Hours: Wednesday-Wednesday, 8am-6:30pm Amiodarone HCl 400 mg tablet ELIQUIS 5 mg tab(s) metoprolol tartrate (short acting) 50 mg tablet traMADol 50 mg tablet You can get the (more content not included)...[facility] 10-23-2022 NoteHNO ID: [id number] Author: Robyn Keen Service: Pharmacy Author Type: ? Type: Plan of Care Filed: 10/23/2022 12:32 PM Note Text: PHARMACY BEDSIDE DELIVERY SERVICE Patient Name: Denton Wesley The marked outpatient medications were Filled at: [place] and delivered to the patient's bedside to patient Medication List START taking these medications Amiodarone HCl 400 mg tablet Take 1 tablet by mouth three times daily for 4 days, THEN 1 tablet by mouth twice daily for 5 days, THEN 1 tablet by mouth once daily for 5 days, THEN 1/2 of a tablet by mouth once daily for 5 days. Start taking on: October 23, 2022 ELIQUIS 5 mg tab(s) Generic drug: apixaban Take 1 tablet by mouth twice daily. lidocaine 4 % patch Commonly known as: SALONPAS Apply 1 Patch as directed once daily. Please cut patch in half lengthwise and apply to either side of sternal incision. Leave on for 12 hours then remove for 12 hours. Start taking on: October 24, 2022 magnesium oxide 400 mg (241.3 mg magnesium) tablet Commonly known as: MAG-OX Take 1 tablet by mouth once daily. Start taking on: October 24, 2022 melatonin 3 mg tablet Take 1 tablet by mouth at bedtime as needed (insomnia). metoprolol tartrate (short acting) 50 mg tablet Commonly known as: LOPRESSOR Take 1 tablet by mouth every 8 hours. traMADol 50 mg tablet Commonly known as: ULTRAM Take 1 tablet by mouth twice daily as needed for pain for up to 7 days. CHANGE how you take these medications acetaminophen 500 mg tablet Commonly known as: TYLENOL Take 2 tablets by mouth four times daily. What changed: medication strength how much to take when to take this reasons to take this CONTINUE taking these medications ADVAIR DISKUS 500-50 mcg/dose Dsdv Generic drug: fluticasone-salmeterol clopidogrel 75 mg tablet Commonly known as: PLAVIX Take 1 tablet by mouth once daily. FARXIGA 10 mg tablet Generic drug: dapagliflozin guaiFENesin 600 mg 12 hr tablet Commonly known as: MUCINEX lansoprazole 30 mg capsule Commonly known as: PREVACID Take 1 capsule by mouth daily before breakfast. 1/2 hr before meal. loratadine 10 mg tablet Commonly known as: CLARITIN nitroglycerin sublingual 0.4 mg SL tablet Commonly known as: NITROQUICK PRALUENT PEN 75 mg/mL pen Generic drug: alirocumab Inject 1 mL subcutaneously every other week. tamsulosin 0.4 mg Commonly known as: FLOMAX Take 1 capsule by mouth daily at bedtime. You might also be taking other medications not listed above. If you have questions about any of your other medications, talk to the person who prescribed them or your Primary Care Provider. STOP taking these medications carvedilol 25 mg tablet Commonly known as: COREG losartan 100 mg tablet Commonly known as: ELDER Keen PAGER: [phone] October 23, 2022 12:31 [facility]01-20-2023 NoteHNO ID: [id number] Author: Mana Olivo RN Service: Care Management Author Type: Registered Nurse Type: Care Mgt Progress Note Filed: 10/23/2022 11:02 AM Note Text: CARE MANAGEMENT DISCHARGE NOTE SERVICE DATE: 10/23/2022 SERVICE TIME: 11:01 AM LOS: 7 days Admission Date: 10/16/2022 DISCHARGE ARRANGEMENT (list agency and phone number) Discharge Arrangement: Home with Home Health Provider Name: [facility] CAREGIVER ASSESSMENT: Caregiver is ready, willing and able to meet the patient's needs as recommended by the inter-professional team:: Yes Patient's transition needs and plan for meeting these needs: [facility] HANDOFF COMMUNICATION: TRANSPORTATION ARRANGEMENTS: Transportation Arrangements: Car ADDITIONAL CONTACT RESOURCES: SIGNATURE: Mana Olivo RN PATIENT NAME: Denton Wesley DATE: October 23, 2022 TIME: 11:01 AM PAGER/CONTACT #: [phone]22 NoteHNO ID: [id number] Author: Mana Olivo RN Service: Care Management Author Type: Registered Nurse Type: Care Mgt Progress Note Filed: 10/22/2022 12:02 PM Note Text: CARE MANAGEMENT PROGRESS NOTE SERVICE DATE: 10/22/2022 SERVICE TIME: 12:00 PM LOS: 6 days IMM Follow Up Copy Given: Yes Copy given to:: Patient Method: In Person (verbal) Chart reviewed. Plan to return home with and son and [facility]. Cm to follow. SIGNATURE: Mana Olivo RN PATIENT NAME: Denton Wesley DATE: October 22, 2022 TIME: 12:00 PM PAGER/CONTACT #: [phone] 10-22-2022 NoteHNO ID: [id number] Author: Vern Mills APRN.CNP Service: Cardiovascular Surgery Author Type: Nurse Practitioner Type: Progress Notes Filed: 10/22/2022 11:55 AM Note Text: CARDIOTHORACIC SURGERY POSTOP PROGRESS NOTE SERVICE DATE: 10/22/2022 SERVICE TIME: 1100 Subjective S/P SURGERY: Procedure(s) (LRB): BYPASS GRAFT ARTERY CORONARY ON-PUMP x 2 (ACEVEDO TO LAD SVG TO CIRC) DATE OF SURGERY: 10/16/2022 POSTOP DAY #6 LOS: 6 HPI (Per CIRO on 07/13/22): Mr. Wesley is a 72 year old male presenting back to the office for evaluation for coronary artery disease and possible CABG. Mr. Wesley is a 72 year old male former remote smoker with a history of hypertension, hyperlipidemia, type 2 diabetes controlled with dietary modifications, asthma, and CAD status post PCI in 2015. He presents to the office for evaluation of progressive significant coronary artery disease on heart catheterization and few months of exertional chest discomfort. Nuclear stress test in June 2021 which demonstrated no evidence of ischemia or infarction. Medical therapy did not relieve his symptoms, and he was taken for heart catheterization. He does have elevated PSA levels concerning for malignancy and he also has significant exposure to agent orange in the . Cardiac catheterization demonstrates nonsignificant disease in the RCA and patent stents in the PDA and PL branches with distal tapering of vessel not amenable for bypass. The circumflex branch is likely graftable vessel in its mid segment, however distally the vessel also tapers very significantly and my concern is the outflow of the graft is not good enough to maintain graft patency. The LAD is a large vessel and has proximal stenoses just prior to the stent as well as at its takeoff from the left main. Since his last office visit, the patient has obtained a TTE, endocrinology consult, PFTs, CT of the chest, and carotid artery studies, all of which returned without any surprises as below. We presented the patient in our multidisciplinary heart team conference and the recommendation was for CABG over PCI. The patient also was found to have an elevated PSA, for which he is due to get a biopsy tomorrow on 07/14. He continues to have some exertional chest discomfort, however he feels this has improved slightly since our last office visit. Pt underwent prostate biopsy on 07/14/22 as scheduled; which revealed prostatic adenocarcinoma. Uro has plans for active surveillance and is okay to proceed with CABG. Per pt's request he wanted to wait until after the holidays for CABG. Pt underwent CABG x 2 (ACEVEDO-LAD SVG-circumflex) with Dr. Colmenares on 10/16/2021. Pt tolerated the procedure well and there were no immediate complications. Pt was transferred to CVICU in stable condition. Pt was extubated on time per early extubation protocol. POD#1 was uneventful. Transferred to 4200 on 10/18/22 POD#2 when he was first noted to have brief episodes of atrial fibrillation lasting ~ 10 seconds with reports of pounding chest. Metoprolol tartrate has been titrated up, most recently to 50 mg Q8H evening of 10/20/22. INTERVAL EVENTS / PERTINENT ROS: 10/22/22 POD#6: Reviewed telemetry, pt continues having brief intermittent non-sustained episodes of atrial fibrillation with HR increasing to 120-130s overnight, BP 125/88 - 153/77.Currently NSR, HR 80s. Pt seen this morning initially doing steps with therapy in his room without problems. He is seated at bedside during exam and reports having back pain between shoulder blades last night laying in bed, relieved with tramadol. He also reports having some LLE numbness which has been intermittent and ongoing since accident to LLE years ago, as well as sharp shooting L ankle pain with certain movements. No problems ambulating/bearing weight or doing steps as above. He says he can feel his chest pounding when his heart rate is fast in the middle of the night, worse when laying on L side. No associated dizziness, lightheadedness, angina, n/v. He reports some mild sternal incisional discomfort. Continues voiding without problems since mendiola removal, moving bowels, appetite fair. Objective Admission Weight: 103.1 kg (227 lb 4.7 oz) BP 139/79 Pulse 82 Temp 37.1 ?C (98.8 ?F) (Oral) Resp 18 Ht 182.9 cm (6') Wt 99 kg (218 lb 3.2 oz) SpO2 94% BMI 29.59 kg/m? Body surface area is 2.24 meters squared. Min/Max/Average Temperature AND Blood Pressure: Temp (24hrs), Av.9 ?C (98.4 ?F), Min:36.4 ?C (97.5 ?F), Max:37.3 ?C (99.1 ?F) Systolic (24hrs), Av , Min:119 , Max:173 Diastolic (24hrs), Av, Min:64, Max:76 No intake or output data in the 24 hours ending 10/22/22 1100 TELEMETRY: NSR 80s, see HPI PHYSICAL EXAM: General Appearance: Initially doing steps with physical therapy then sitting at bedside for exam, NAD Skin: Midsternal incision dry AND intact without surrounding erythema or jimmy (more content not included)...[facility]01-18-2023 Note HNO ID: [id number] Author: Wai Adair APRN.TECHNICAL SUPPORT CONSULTANT Service: Cardiovascular Surgery Author Type: Nurse Practitioner Type: Progress Notes Filed: 10/21/2022 12:17 PM Note Text: CARDIOTHORACIC SURGERY POSTOP PROGRESS NOTE SERVICE DATE: 10/21/2022 SERVICE TIME: 1120 Subjective S/P SURGERY: Procedure(s) (LRB): BYPASS GRAFT ARTERY CORONARY ON-PUMP x 2 (ACEVEDO TO LAD SVG TO CIRC) DATE OF SURGERY: 10/16/2022 POSTOP DAY #5 LOS: 5 HPI (Per CIRO on 07/13/22): Mr. Wesley is a 72 year old male presenting back to the office for evaluation for coronary artery disease and possible CABG. Mr. Wesley is a 72 year old male former remote smoker with a history of hypertension, hyperlipidemia, type 2 diabetes controlled with dietary modifications, asthma, and CAD status post PCI in 2015. He presents to the office for evaluation of progressive significant coronary artery disease on heart catheterization and few months of exertional chest discomfort. Nuclear stress test in June 2021 which demonstrated no evidence of ischemia or infarction. Medical therapy did not relieve his symptoms, and he was taken for heart catheterization. He does have elevated PSA levels concerning for malignancy and he also has significant exposure to agent orange in the . Cardiac catheterization demonstrates nonsignificant disease in the RCA and patent stents in the PDA and PL branches with distal tapering of vessel not amenable for bypass. The circumflex branch is likely graftable vessel in its mid segment, however distally the vessel also tapers very significantly and my concern is the outflow of the graft is not good enough to maintain graft patency. The LAD is a large vessel and has proximal stenoses just prior to the stent as well as at its takeoff from the left main. Since his last office visit, the patient has obtained a TTE, endocrinology consult, PFTs, CT of the chest, and carotid artery studies, all of which returned without any surprises as below. We presented the patient in our multidisciplinary heart team conference and the recommendation was for CABG over PCI. The patient also was found to have an elevated PSA, for which he is due to get a biopsy tomorrow on 07/14. He continues to have some exertional chest discomfort, however he feels this has improved slightly since our last office visit. Pt underwent prostate biopsy on 07/14/22 as scheduled; which revealed prostatic adenocarcinoma. Uro has plans for active surveillance and is okay to proceed with CABG. Per pt's request he wanted to wait until after the holidays for CABG. INTERVAL EVENTS / PERTINENT ROS: Pt underwent CABG x 2 (ACEVEDO-LAD SVG-circumflex) with Dr. Colmenares on 10/16/2021. Pt tolerated the procedure well and there were no immediate complications. Pt was transferred to CVICU in stable condition. Pt was extubated on time per early extubation protocol. POD#1 was uneventful. 10/19 POD#3: Pt seen and examined on 4200 today. VSS, slightly improved BPs on this am reading. Per tele review, currently SR 80s, had PAF 120-130s early am around 8145-4852. Reports intermittent palpitations, no associated chest pain. Does have some intermittent left anterior discomfort with certain movements and deep inspiration. Occasional lightheadedness with positioning. Cough improving. Ambulated around until today, without symptoms, on RA. 94% on RA. Tolerating po well, no nausea today. No v/d. BM yesterday. Poor appetite, but trying to increase po intake. Passed voiding trial yesterday, voiding without difficulty. Denies peripheral edema, or peripheral numbness or tingling. Objective Admission Weight: 103.1 kg (227 lb 4.7 oz) BP 125/85 Pulse 74 Temp 36.4 ?C (97.5 ?F) (Oral) Resp 18 Ht 182.9 cm (6') Wt 98.6 kg (217 lb 6 oz) SpO2 94% BMI 29.48 kg/m? Body surface area is 2.24 meters squared. Min/Max/Average Temperature AND Blood Pressure: Temp (24hrs), Av.9 ?C (98.4 ?F), Min:36.4 ?C (97.5 ?F), Max:37.1 ?C (98.8 ?F) Systolic (24hrs), Av , Min:119 , Max:173 Diastolic (24hrs), Av, Min:64, Max:76 Intake/Output Summary (Last 24 hours) at 10/21/2022 1151 Last data filed at 10/21/2022 0442 Gross per 24 hour Intake 550 ml Output 1550 ml Net -1000 ml TELEMETRY: NSR 80s, see HPI PHYSICAL EXAM: General Appearance: Up standing in room, ambulated back to bed without issue, NAD, AOX3 Skin: Midsternal incision dry AND intact without surrounding erythema or edema. SVG incision dry and intact without drainage or surrounding ecchymosis. CT sites healing, no drainge, but scant light yellow eschar noted on right site. Neck: R IJ previous site dressing CDI Lungs: resps easy and non labored. Equal chest rise. CTA bilaterally No wheezing or rhonchi appreciated Heart: Regular rate and rhythm, S1, S2 normal, no murmur (pacing wires removed yesterday) Peripheral Vascular/Arteries: radial 2+ bilaterally, DP 1+ bilaterall (more content not included)...[facility]01-17-2023 NoteHNO ID: [id number] Author: Wai Adair APRN.CNP Service: Cardiovascular Surgery Author Type: Nurse Practitioner Type: Procedures Filed: 10/20/2022 12:11 PM Note Text: BEDSIDE PROCEDURE NOTE Epicardial pacing wire removal Procedure Date/Start Time: 10/20/2022 12:10 PM Performed by: Wai Adair APRN.TECHNICAL SUPPORT CONSULTANT Authorized by: Wai Adair APRN.MANNY Informed Consent Consent Obtained: Verbal [place] Protocol A moment to CARE was completed. SIGN IN Personnel directly involved with the procedure wore the appropriate PPE. Special Equipment: N/A Patient/Surrogate Stated/Verified: Patient name, Date of , Relevant allergies and Intended procedure TIME OUT Relevant labs, photos, and/or imaging studies have been reviewed. No medications required for procedure. Pre-procedure Details: The area was prepped with chlorhexidine (Chloroprep) and allowed to dry. Medications: N/A Procedure Details: Ventricular Pacing Wires removed. Patient tolerated procedure well. No immediate complications noted. Nursing notified. Patient is advised to notify staff if having lightheadedness, dizziness, chest discomfort, or SOB, excessive bleeding. Nursing staff communicated, post wire removal orders placed. Call light in reach. Wai Adair APRN.TECHNICAL SUPPORT CONSULTANT Assisting Clinician(s): Vern Mills APRN, CNP Post-procedure Details: Patient tolerated the procedure well with no immediate complications Estimated Blood Loss: None Specimens Sent: none Comments: Ventricular Pacing Wires removed. Patient tolerated procedure well. No immediate complications noted. Nursing notified. Patient is advised to notify staff if having lightheadedness, dizziness, chest discomfort, or SOB, excessive bleeding. Nursing staff communicated, post wire removal orders placed. Call light in reach. Wai Adair APRN.TECHNICAL SUPPORT CONSULTANT SIGNATURE: Wai Adair APRN.CNP PATIENT NAME: Denton Wesley DATE: October 20, 2022 TIME: 12:06 [facility]01-17-2023 NoteHNO ID: [id number] Author: Wai Adair APRN.CNP Service: Cardiovascular Surgery Author Type: Nurse Practitioner Type: Progress Notes Filed: 10/20/2022 1:43 PM Note Text: CARDIOTHORACIC SURGERY POSTOP PROGRESS NOTE SERVICE DATE: 10/20/2022 SERVICE TIME: 1120 Subjective S/P SURGERY: Procedure(s) (LRB): BYPASS GRAFT ARTERY CORONARY ON-PUMP x 2 (ACEVEDO TO LAD SVG TO CIRC) DATE OF SURGERY: 10/16/2022 POSTOP DAY #4 LOS: 4 HPI (Per CIRO on 07/13/22): Mr. Wesley is a 72 year old male presenting back to the office for evaluation for coronary artery disease and possible CABG. Mr. Wesley is a 72 year old male former remote smoker with a history of hypertension, hyperlipidemia, type 2 diabetes controlled with dietary modifications, asthma, and CAD status post PCI in 2015. He presents to the office for evaluation of progressive significant coronary artery disease on heart catheterization and few months of exertional chest discomfort. Nuclear stress test in June 2021 which demonstrated no evidence of ischemia or infarction. Medical therapy did not relieve his symptoms, and he was taken for heart catheterization. He does have elevated PSA levels concerning for malignancy and he also has significant exposure to agent orange in the . Cardiac catheterization demonstrates nonsignificant disease in the RCA and patent stents in the PDA and PL branches with distal tapering of vessel not amenable for bypass. The circumflex branch is likely graftable vessel in its mid segment, however distally the vessel also tapers very significantly and my concern is the outflow of the graft is not good enough to maintain graft patency. The LAD is a large vessel and has proximal stenoses just prior to the stent as well as at its takeoff from the left main. Since his last office visit, the patient has obtained a TTE, endocrinology consult, PFTs, CT of the chest, and carotid artery studies, all of which returned without any surprises as below. We presented the patient in our multidisciplinary heart team conference and the recommendation was for CABG over PCI. The patient also was found to have an elevated PSA, for which he is due to get a biopsy tomorrow on 07/14. He continues to have some exertional chest discomfort, however he feels this has improved slightly since our last office visit. Pt underwent prostate biopsy on 07/14/22 as scheduled; which revealed prostatic adenocarcinoma. Uro has plans for active surveillance and is okay to proceed with CABG. Per pt's request he wanted to wait until after the holidays for CABG. INTERVAL EVENTS / PERTINENT ROS: Pt underwent CABG x 2 (ACEVEDO-LAD SVG-circumflex) with Dr. Colmenares on 10/16/2021. Pt tolerated the procedure well and there were no immediate complications. Pt was transferred to CVICU in stable condition. Pt was extubated on time per early extubation protocol. POD#1 was uneventful. 10/19 POD#3: Pt seen and examined on 4200 today. VSS, slightly improved BPs on this am reading. Per tele review, had PAF yesterday afternoon and evening, nonsustained episodes with HR 130, then SR from 6423-1628 today in 70s. Noted return of nonsustained a fib rates 120s later this am. Now SR 70s. Pt notes feeling fluttering/palpitations that seem to correlate with these episodes. Denies chest pain, sob. Cough improving, minimal phlegm today. 96% on RA. Reports some sternal discomfort with coughing, relieved with PRN tramadol. Transient episode of nausea this am just prior to BM. Currently no n/v/d. Poor appetite, but trying to increase po intake. Mendiola cath replaced 10/18/22. UA/Clx as below 10/19/22. Denies peripheral edema, or peripheral numbness or tingling. Objective Admission Weight: 103.1 kg (227 lb 4.7 oz) BP 128/78 Pulse 71 Temp 36.4 ?C (97.5 ?F) (Oral) Resp 16 Ht 182.9 cm (6') Wt 99.4 kg (219 lb 2.2 oz) SpO2 93% BMI 29.72 kg/m? Body surface area is 2.25 meters squared. Min/Max/Average Temperature AND Blood Pressure: Temp (24hrs), Av.7 ?C (98 ?F), Min:36.4 ?C (97.5 ?F), Max:36.9 ?C (98.4 ?F) Systolic (24hrs), Av , Min:119 , Max:173 Diastolic (24hrs), Av, Min:64, Max:76 Intake/Output Summary (Last 24 hours) at 10/20/2022 1129 Last data filed at 10/20/2022 0448 Gross per 24 hour Intake -- Output 2850 ml Net -2850 ml TELEMETRY: NSR 70s, see HPI PHYSICAL EXAM: General Appearance: Resting in bed, appears to be in no acute distress, AOx3 Skin: Midsternal incision dry AND intact without surrounding erythema or edema. SVG incision dry and intact without drainage or surrounding ecchymosis. Neck: R IJ previous site dressing CDI Lungs: resps easy and non labored. Equal chest rise. Faint LLL rales. No wheezing or rhonchi appreciated Heart: Regular rate and rhythm, S1, S2 normal, no murmur, and pacing wires present Peripheral Vascular/Arteries: radial 2+ bilaterally, DP 1+ bilaterally, no cyanosis Abdo (more content not included)...[facility]01-16-2023 Note HNO ID: [id number] Author: Mana Olivo RN Service: Care Management Author Type: Registered Nurse Type: Care Mgt Initial Assessment Filed: 10/19/2022 3:01 PM Note Text: CARE MANAGEMENT: ASSESSMENT AND DISCHARGE PLAN SERVICE DATE: October 19, 2022 SERVICE TIME: 2:58 PM PRIMARY CARE PHYSICIAN: Cali Cordero MD Primary Contact: Extended Emergency Contact Information Primary Emergency Contact: Malena Wesley Address: [address] [id number] Mobile Relation: Spouse Secondary Emergency Contact: Louise Chin Address: [address] [place] [address] Mobile Relation: Daughter ADMISSION STATUS: Inpatient Insurance Provider: MEDICARE A AND B NEEDS PRIOR TO DISCHARGE Needs Prior to Discharge: Home Care Order POTENTIAL TRANSITION PLANS Home Care Based on clinical judgement, Care Management will address the following needs: No transitional/discharge planning needs at this time Patient's perception of need for this admission: . ADVANCE DIRECTIVES Current Advance Directive: None Reel System Operator Attempted to Assist with AD Completion: Yes Action: Education Provided MS/BEHAVIOR Baseline Mental Status Prior to this Illness what was the patient's Baseline Mental Status?: Alert AND Oriented Prior to this illness, has anyone described the patient having any of the following behaviors?: Not Applicable Relationship of the informant to the patient:: Self READMISSION Last Discharge Date: 9/7/22 Is this Within the Past 30 days? 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 scores in the EMR?: No Any potential risks related to substance abuse and/or behavioral health?: No Based on clinical judgement, Care Management will address the following needs: No transitional/discharge planning needs at this time CAREGIVER ASSESSMENT No medical discharge barriers identified at this time. No social discharge barriers identified at this time. No behavioral/cognitive discharge barriers identified at this time. No functional discharge barriers identified at this time. FREEDOM OF CHOICE EXPLAINED: [place] of Choice Given: Yes Level of Care Discussed: Home Care ([facility]) Are you interested in bedside delivery of your medications? Yes ASSESSMENT AND PLAN: Spoke with pt and family at the bedside. Pt from home with who he cares for and son. Pt s/p CABG. Plan for pt to return home with and son with [facility]- [facility] is able to accept. CM to follow. SIGNATURE: Mana Olivo RN PATIENT NAME: Denton Wesley DATE: October 19, 2022 TIME: 2:58 PM CONTACT #: [phone] Note HNO ID: [id number] Author: Wai Adair APRN.TECHNICAL SUPPORT CONSULTANT Service: Cardiovascular Surgery Author Type: Nurse Practitioner Type: Progress Notes Filed: 10/20/2022 11:53 AM Note Text: CARDIOTHORACIC SURGERY POSTOP PROGRESS NOTE SERVICE DATE: 10/19/2022 SERVICE TIME: 8:53 AM Subjective S/P SURGERY: Procedure(s) (LRB): BYPASS GRAFT ARTERY CORONARY ON-PUMP x 2 (ACEVEDO TO LAD SVG TO CIRC) DATE OF SURGERY: 10/16/2022 POSTOP DAY #3 LOS: 3 HPI (Per CIRO on 07/13/22): Mr. Wesley is a 72 year old male presenting back to the office for evaluation for coronary artery disease and possible CABG. Mr. Lupillo is a 72 year old male former remote smoker with a history of hypertension, hyperlipidemia, type 2 diabetes controlled with dietary modifications, asthma, and CAD status post PCI in 2015. He presents to the office for evaluation of progressive significant coronary artery disease on heart catheterization and few months of exertional chest discomfort. Nuclear stress test in June 2021 which demonstrated no evidence of ischemia or infarction. Medical therapy did not relieve his symptoms, and he was taken for heart catheterization. He does have elevated PSA levels concerning for malignancy and he also has significant exposure to agent orange in the . Cardiac catheterization demonstrates nonsignificant disease in the RCA and patent stents in the PDA and PL branches with distal tapering of vessel not amenable for bypass. The circumflex branch is likely graftable vessel in its mid segment, however distally the vessel also tapers very significantly and my concern is the outflow of the graft is not good enough to maintain graft patency. The LAD is a large vessel and has proximal stenoses just prior to the stent as well as at its takeoff from the left main. Since his last office visit, the patient has obtained a TTE, endocrinology consult, PFTs, CT of the chest, and carotid artery studies, all of which returned without any surprises as below. We presented the patient in our multidisciplinary heart team conference and the recommendation was for CABG over PCI. The patient also was found to have an elevated PSA, for which he is due to get a biopsy tomorrow on 07/14. He continues to have some exertional chest discomfort, however he feels this has improved slightly since our last office visit. Pt underwent prostate biopsy on 07/14/22 as scheduled; which revealed prostatic adenocarcinoma. Uro has plans for active surveillance and is okay to proceed with CABG. Per pt's request he wanted to wait until after the holidays for CABG. INTERVAL EVENTS / PERTINENT ROS: Pt underwent CABG x 2 (ACEVEDO-LAD SVG-circumflex) with Dr. Colmenares on 10/16/2021. Pt tolerated the procedure well and there were no immediate complications. Pt was transferred to CVICU in stable condition. Pt was extubated on time per early extubation protocol. POD#1 was uneventful. 10/19 POD#3: Pt seen and examined on 4200 today, transferred from CVICU yesterday. Just returned from am CXR. NAEO. VSS, HR mostly 70-80, non sustained regular HR in 140's this am prior to am BB administration. Also noted a brief 10 seconds of what appeared to be a fib this am. SBPs 137-151. Denies chest pain, reports a few episodes of intermittent fluttering and pounding chest. Denies SOB. + productive cough with thick creamy phlegm. 93% on RA. Denies ankle pain at present. Sternal discomfort with coughing tolerable. Tramadol PRN for pain. Denies n/v/d. Reports poor appetite. NO BM since surgery. + flatus. Mendiola cath replaced last night. UA/Clx pending. Ambulated to hallway without issues. Denies peripheral edema, or peripheral numbness or tingling. Objective Admission Weight: 103.1 kg (227 lb 4.7 oz) BP 151/89 Pulse 71 Temp 36.5 ?C (97.7 ?F) (Oral) Resp 16 Ht 182.9 cm (6') Wt 99.7 kg (219 lb 12.8 oz) SpO2 93% BMI 29.81 kg/m? Body surface area is 2.25 meters squared. Min/Max/Average Temperature AND Blood Pressure: Temp (24hrs), Av.7 ?C (98.1 ?F), Min:36.5 ?C (97.7 ?F), Max:36.9 ?C (98.4 ?F) Systolic (24hrs), Av , Min:119 , Max:173 Diastolic (24hrs), Av, Min:64, Max:76 Intake/Output Summary (Last 24 hours) at 10/19/2022 1222 Last data filed at 10/19/2022 0600 Gross per 24 hour Intake -- Output 1525 ml Net -1525 ml TELEMETRY: NSR 70s, see HPI PHYSICAL EXAM: General Appearance: Resting in bed, appears to be in no acute distress, AOx3 Skin: Midsternal incision dry AND intact without surrounding erythema or edema. SVG incision dry and intact without drainage or surrounding ecchymosis. Neck: R IJ line intact with clean dressing Lungs: resps easy and non labored. Equal chest rise. Faint LLL rales. No wheezing or rhonchi appreciated Heart: Regular rate and rhythm, S1, S2 normal, no murmur, and pacing wires present Peripheral Vascular/Arteries: radial 2+ bilaterally, DP 1+ bilaterally, no cyanosis (more content not included)...[facility]01-16-2023 Miscellaneous Notes* Telephone Encounter - EUN Tellez - 10/19/2022 2:10 PM EST Welcome Home Call: [phone] N/A in room a. Date and Time: 2:10 PM 10/19/2022 Left VM for patient spouse Malena warnerq. a c/b to schedule. [facility] NoteHNO ID: [id number] Author: Lorenza Alba APRN.TECHNICAL SUPPORT CONSULTANT Service: Pulmonary Disease Author Type: Nurse Practitioner Type: Progress Notes Filed: 10/19/2022 10:25 AM Note Text: PULMONARY PROGRESS NOTE [facility] SERVICE DATE: October 19, 2022 SERVICE TIME: 10:08 AM Subjective Patient tells me that he feels much better. He endorses a cough with thick phlegm; however, is unsure of color as he swallows it. +Still with chest pain at incisional site. No wheezing, fevers or chills. Objective OBJECTIVE Current Facility-Administered Medications Medication Dose Route Frequency Provider Last Rate Last Admin metoprolol tartrate (short acting) 25 mg tab(s) (LOPRESSOR) 25 mg ORAL q 8 H Maria Elena Duarte PA-C 25 mg at 10/19/22 0557 calcium carbonate 1,000 mg chewable tab(s) (TUMS) 1,000 mg ORAL BID PRN Maria Elena Duarte PA-C melatonin 3 mg tab(s) 3 mg ORAL AT BEDTIME PRN Maria Elena Duarte PA-C senna-docusate 8.6-50 mg 1 tablet (SENNA-S) 1 tablet ORAL BID Maria Elena Duarte PA-C 1 tablet at 10/19/22 0926 polyethylene glycol 3350 17 g packet (MIRALAX, GLYCOLAX) 17 g ORAL DAILY Maria Elena Duarte PA-C 17 g at 10/19/22 0925 [START ON 10/21/2022] bisacodyl 10 mg suppository (DULCOLAX) 10 mg RECTAL DAILY PRN Maria Elena Duarte PA-C dextrose 15 gram/32 mL 15 g (TRUEPLUS) 15 g ORAL PRN Maria Elena Duarte PA-C Or glucagon 1 mg injection 1 mg INTRAMUSCULAR PRN Maria Elena Duarte PA-C Or dextrose 10% iv bolus 12.5 g INTRAVENOUS PRN Maria Elena Duarte PA-C insulin lispro injection (rapid acting) (ADMELOG) SUBCUTANEOUS w MEALS Maria Elena Duarte PA-C 1 Units at 10/18/22 1738 insulin lispro injection (rapid acting) (ADMELOG) SUBCUTANEOUS AT BEDTIME Maria Elena Duarte PA-C 1 Units at 10/18/[address] 40 mg tab(s) (PROTONIX) 40 mg ORAL DAILY (6 AM) Maria Elena Duarte PA-C 40 mg at 10/19/22 0557 budesonide 0.5 mg/2 mL 0.5 mg (PULMICORT) 0.5 mg INHALATION BID Maria Elena Duarte PA-C 0.5 mg at 10/19/22 0821 albuterol 2.5 mg /3 mL (0.083 %) 2.5 mg (PROVENTIL) 2.5 mg INHALATION q 4 H PRN Maria Elena Duarte PA-C 2.5 mg at 10/18/22 1915 tamsulosin 0.4 mg cap(s) (FLOMAX) 0.4 mg ORAL AT BEDTIME Maria Elena Duarte PA-C 0.4 mg at 10/18/22 2139 aspirin 162 mg chewable tab(s) 162 mg ORAL DAILY Maria Elena Duarte PA-C 162 mg at 10/19/22 0925 ondansetron (PF) 4 mg injection (ZOFRAN) 4 mg INTRAVENOUS q 6 H PRN Maria Elena Duarte PA-C acetaminophen 1,000 mg tab(s) (TYLENOL) 1,000 mg ORAL QID Maria Elena Duarte PA-C 1,000 mg at 10/19/22 0926 lidocaine 4 % 1 Patch (SALONPAS) 1 Patch TRANSDERMAL DAILY Maria Elena Duarte PA-C 1 Patch at 10/19/22 0926 And lidocaine patch - REMOVE OTHER AT BEDTIME Maria Elena Fisher Gerald PA-C And lidocaine - VERIFY PATCH OTHER q 8 H Maria Elena Fisher Gerald PA-C magnesium oxide 400 mg tab(s) (MAG-OX) 400 mg ORAL DAILY Maria Elena Barbah, PA-C 400 mg at 10/19/22 0927 traMADol 50-100 mg tab(s) (ULTRAM) 50-100 mg ORAL q 6 H PRN Maria Elena Orozcovach, PA-C 100 mg at 10/19/22 0011 morphine 2-4 mg injection 2-4 mg INTRAVENOUS q 1 H PRN Maria Elena Fisher Gerald, PA-C 4 mg at 10/18/22 0313 enoxaparin 40 mg injection (LOVENOX) 40 mg SUBCUTANEOUS DAILY Maria Elena Barbah, PA-C 40 mg at 10/19/22 0926 INTAKE AND OUTPUT Intake/Output Summary (Last 24 hours) at 10/19/2022 1008 Last data filed at 10/19/2022 0600 Gross per 24 hour Intake -- Output 2370 ml Net -2370 ml New Radiology Films: CXR 10/18/22: Mild increase in areas of atelectasis or pneumonia at the left lung base and small left pleural effusion. Unchanged small areas of airspace disease at the right lung base. CXR 10/17/22: Interval removal of endotracheal tube and NG tube. Diminished aeration at both lung bases. CXR 10/16/22: Lines and tubes appear in appropriate position. Atelectasis at the lung bases. CXR 10/12/22: No acute radiographic abnormality. New Micro: New Labs: BMP: Glucose (mg/dL) Date Value 10/19/2022 114 04/01/2021 117 Potassium (mmol/L) Date Value 10/19/2022 3.9 04/01/2021 4.9 Sodium (mmol/L) Date Value 10/19/2022 138 04/01/2021 139 Chloride (mmol/L) Date Value 10/19/2022 102 04/01/2021 105 CO2 (mmol/L) Date Value 10/19/2022 27 04/01/2021 19 Creatinine (mg/dL) Date Value 10/19/2022 0.71 04/01/2021 0.78 BUN (mg/dL) Date Value 10/19/2022 14 04/01/2021 16 Anion Gap (mmol/L) Date Value 10/19/2022 9 04/01/2021 15 Calcium (mg/dL) Date Value 04/01/2021 9.5 Calcium, Total (mg/dL) Date Value 10/19/2022 8.7 CBC: Hemoglobin (g/dL) Date Value 10/19/2022 12.8 10/18/2022 13.8 10/17/2022 13.1 10/23/2020 15.7 HGB (g/dL) Date Value 03/20/2016 13.5 03/19/2016 13.1 Hematocrit (%) Date Value 10/19/2022 40.2 10/18/2022 42.6 10/17/2022 39.6 10/23/2020 47.7 03/20/2016 40.9 03/19/2016 39.9 WBC Date Value 10/19/2022 10.63 k/uL 10/18/2022 14.71 k/uL 10/17/2022 14.09 k/uL 10/23/2020 7.77 k/uL 03/20/2016 11.4 thou/cmm 03/19/2016 9.0 thou/cmm Vital Signs 10/19/22 0718 10/19/22 0822 10/19/22 0900 10/19/22 (more content not included)...[facility] [facility] NoteHNO ID: [id number] Author: Calvin Mckeon MD Service: Thoracic Surgery Author Type: Physician Type: Progress Notes Filed: 10/18/2022 11:04 AM Note Text: Patient seen this AM with PA on rounds. Data, cxr, and careplan reviewed. AAND P-given untreated prostate CA, on Flomax at home, strt cath already, and difficulty voiding now--consult . May go to 4200 later today.[facility]01-15-2023 NoteHNO ID: [id number] Author: Maria Elena Duarte PA-C Service: Cardiovascular Surgery Author Type: Physician Business Banking Sales Assistant Type: Progress Notes Filed: 10/18/2022 10:28 AM Note Text: CARDIOTHORACIC SURGERY POSTOP PROGRESS NOTE SERVICE DATE: 10/18/2022 SERVICE TIME: 8:53 AM Subjective S/P SURGERY: Procedure(s) (LRB): BYPASS GRAFT ARTERY CORONARY ON-PUMP x 2 (ACEVEDO TO LAD SVG TO CIRC) DATE OF SURGERY: 10/16/2022 POSTOP DAY #2 LOS: 2 HPI (Per CIRO on 07/13/22): Mr. Wesley is a 72 year old male presenting back to the office for evaluation for coronary artery disease and possible CABG. Mr. Wesley is a 72 year old male former remote smoker with a history of hypertension, hyperlipidemia, type 2 diabetes controlled with dietary modifications, asthma, and CAD status post PCI in 2015. He presents to the office for evaluation of progressive significant coronary artery disease on heart catheterization and few months of exertional chest discomfort. Nuclear stress test in June 2021 which demonstrated no evidence of ischemia or infarction. Medical therapy did not relieve his symptoms, and he was taken for heart catheterization. He does have elevated PSA levels concerning for malignancy and he also has significant exposure to agent orange in the . Cardiac catheterization demonstrates nonsignificant disease in the RCA and patent stents in the PDA and PL branches with distal tapering of vessel not amenable for bypass. The circumflex branch is likely graftable vessel in its mid segment, however distally the vessel also tapers very significantly and my concern is the outflow of the graft is not good enough to maintain graft patency. The LAD is a large vessel and has proximal stenoses just prior to the stent as well as at its takeoff from the left main. Since his last office visit, the patient has obtained a TTE, endocrinology consult, PFTs, CT of the chest, and carotid artery studies, all of which returned without any surprises as below. We presented the patient in our multidisciplinary heart team conference and the recommendation was for CABG over PCI. The patient also was found to have an elevated PSA, for which he is due to get a biopsy tomorrow on 07/14. He continues to have some exertional chest discomfort, however he feels this has improved slightly since our last office visit. Pt underwent prostate biopsy on 07/14/22 as scheduled; which revealed prostatic adenocarcinoma. Uro has plans for active surveillance and is okay to proceed with CABG. Per pt's request he wanted to wait until after the holidays for CABG. INTERVAL EVENTS / PERTINENT ROS: Pt underwent CABG x 2 (ACEVEDO-LAD SVG-circumflex) with Dr. Colmenares on 10/16/2021. Pt tolerated the procedure well and there were no immediate complications. Pt was transferred to CVICU in stable condition. Pt was extubated on time per early extubation protocol. POD#1 was uneventful. 10/18 POD#2: Pt seen in CVICU this AM. Pt remains hemodynamically stable with SBP 140s, HR in NSR 70s, and SpO2 97% on 2L NC. Pt reports mid sternal pain is improved from yesterday and soreness is relieved with medication. Pt reporting some intermittent pain to L medial malleolus, not on palpation or movement of ankle. Pt denies SOB at rest, some increased on ambulation. + belching/reflux sx, + flatus. Tolerating small amounts of food. Pt did void post mendiola removal, but was bladder scanned and required straight cath ~0300 this AM with 800 cc out. Pt reports still mildly lightheaded and nausea on getting up to chair/standing. Pt ambulated a lap with nursing staff. Pt denies vomiting, abdominal pain, or numbness and tingling to LLE. CTs with 505 cc out over last 24 hours. Labs and imaging reviewed. Objective Admission Weight: 103.1 kg (227 lb 4.7 oz) BP 141/69 Pulse 66 Temp 36.8 ?C (98.2 ?F) Resp 18 Ht 182.9 cm (6') Wt 103.1 kg (227 lb 4.7 oz) SpO2 97% BMI 30.83 kg/m? Body surface area is 2.29 meters squared. Min/Max/Average Temperature AND Blood Pressure: Temp (24hrs), Av.9 ?C (98.5 ?F), Min:36.8 ?C (98.2 ?F), Max:37.2 ?C (99 ?F) Systolic (24hrs), Av , Min:119 , Max:173 Diastolic (24hrs), Av, Min:64, Max:76 Intake/Output Summary (Last 24 hours) at 10/18/2022 0852 Last data filed at 10/18/2022 0600 Gross per 24 hour Intake 470 ml Output 2605 ml Net -2135 ml TELEMETRY: normal sinus rhythm PHYSICAL EXAM: General Appearance: Resting in bed, appears to be in no acute distress Skin: Midsternal incision dry AND intact without surrounding erythema or edema. SVG incision dry and intact without drainage or surrounding ecchymosis. Neck: R IJ line intact with clean dressing Lungs: Clear to auscultation and without wheezes or crackles, decreased at bilateral bases. Heart: Regular rate and rhythm, S1, S2 normal, no murmur, and pacing wires present; coarse sounds heard over L 4th intercostal space likely d/t mediasti (more content not included)...[facility]01-14-2023 NoteHNO ID: [id number] Author: Calvin Mckeon MD Service: Thoracic Surgery Author Type: Physician Type: Progress Notes Filed: 10/17/2022 11:29 AM Note Text: Patient seen this AM with PA on rounds and reviewed with bedside nurse. Data, cxr, and careplan reviewed. P-as ordered.[facility]01-14-2023 NoteHNO ID: [id number] Author: Lita Burgess [facility] Service: Pharmacy Author Type: Pharmacist Type: Plan of Care Filed: 10/20/2022 7:12 PM Note Text: PHARMACY MEDICATION REVIEW Patient Name: Denton Wesley : 1950 Addendum October 20, 2022 Lita Burgess (Pharmacist) -Reviewed medication -As pt states that he does take Alirocumab per notation below- I checked the box The following medications were updated within the MANAGER DOCUMENT medication list: Medications ADDED to MANAGER DOCUMENT medication list Medications CHANGED on MANAGER DOCUMENT medication list Medications REMOVED from MANAGER DOCUMENT medication list aspirin, enteric coated (ASPIRIN, ENTERIC COATED) 81 mg EC tablet Course of therapy completed albuterol (PROVENTIL) 2.5 mg /3 mL (0.083 %) nebulizer solution Course of therapy completed metoprolol tartrate, short acting, (LOPRESSOR) 100 mg tablet Course of therapy completed ondansetron orally disintegrating (ZOFRAN ODT) 4 mg disintegrating tablet Course of therapy completed Additional comments: Verified medication information with e-scripts/dispense report and chart review. Confirmed medications with patient. Patient stated no longer taking aspirin, albuterol nebulizer cj, and ondansetron ODT - removed from med list. Removed metoprolol tartrate from med list - for procedure only. Patient stated takes alirocumab but need to get refilled - left on med list unchecked. Patient stops and start medication because of procedures so it fill dates do not match. Required follow up actions for nursing: None The below information represents the best possible medication history: Yes Medication history completed by: student life vice president: Nidhi Watson (Caustic Strength Inspector) Source of history: Patient: Reliability of source: Appears reliable, clearly identified: Medication name, Medication dose, Medication route, and Medication frequency, Pharmacy records: e-scripts/dispense report, and [facility] records Medication nonadherence identified: No barriers noted Reconciliation completed: Yes Completed by: AURELIANO All MANAGER DOCUMENT medications addressed by AURELIANO Patient interested in Bedside Delivery Services or using OP Pharmacy at discharge? No Preferred outpatient pharmacy: [facility] [address] [place] [address] [phone] - [phone] [facility] Allergies: Gemfibrozil Intolerance Rosuvastatin Intolerance Simvastatin Intolerance Imdur [Isosorbide] Other: See Comments Comment:Headaches, upset stomach, fatigue Penicillins Other: See Comments Comment:passed out and felt like I had the flu Pt states he's no longer allergic to this, he's taken tests w/out issues. Pravastatin Myalgia Prior to Admission Medications Prescriptions Last Dose Informant Patient Reported? Taking? ADVAIR DISKUS 500-50 mcg/dose dsdv 10/16/2022 at 0430 Yes Yes Sig: INHALE 1 (ONE) puff EVERY 12 HOURS FARXIGA 10 mg tablet Yes Yes Sig: Take 10 mg by mouth once daily. acetaminophen (TYLENOL) 325 mg tablet 10/16/2022 at 0430 Yes Yes Sig: Take 325 mg by mouth every 6 hours as needed. alirocumab (PRALUENT PEN) 75 mg/mL pen No Yes Sig: Inject 1 mL subcutaneously every other week. carvedilol (COREG) 25 mg tablet 10/15/2022 No Yes Sig: Take 1.5 tablets by mouth twice daily with meals. clopidogrel (PLAVIX) 75 mg tablet No Yes Sig: Take 1 tablet by mouth once daily. guaiFENesin (MUCINEX) 600 mg 12 hr tablet 10/14/2022 Yes Yes Sig: Take 1 tablet by mouth twice daily as needed for cold/allergy symptoms. lansoprazole (PREVACID) 30 mg capsule 10/15/2022 No Yes Sig: Take 1 capsule by mouth daily before breakfast. 1/2 hr before meal. loratadine (CLARITIN) 10 mg tablet 10/09/2022 Yes Yes Sig: Take 1 tablet by mouth once daily. losartan (COZAAR) 100 mg tablet 10/15/2022 No Yes Sig: Take 1 tablet by mouth once daily. nitroglycerin sublingual (NITROQUICK) 0.4 mg SL tablet Unknown Yes Yes Sig: Dissolve 0.4 mg under the tongue every 5 minutes as needed. tamsulosin (FLOMAX) 0.4 mg 10/15/2022 No Yes Sig: Take 1 capsule by mouth daily at bedtime. Facility-Administered Medications Last Administration Doses Remaining perflutren lipid microspheres 1.3 mL in NaCl (PF) 0.9% 10 mL injection (DEFINITY) None recorded 1 perflutren lipid microspheres 1.3 mL in NaCl (PF) 0.9% 10 mL injection (DEFINITY) None recorded 1 sodium chloride 0.9 % (flush) 10 mL (BD POSIFLUSH) None recorded 1 sodium chloride 0.9 % (flush) 10 mL (BD POSIFLUSH) None recorded 1 Nidhi Watson (Caustic Strength Inspector)[id number] 10/17/2022[facility]01-14-2023 NoteHNO ID: [id number] Author: Zaid Mar MD Service: Critical Care Author Type: Physician Type: Progress Notes Filed: 10/17/2022 11:43 AM Note Text: ICU PROGRESS NOTE SERVICE DATE: 10/17/2022 SERVICE TIME: 7:37 AM Admission Date: 10/16/2022 AGE: [age] year old LOS: 1 days INTERVAL EVENTS: S/p CABG Extubated and doing well he has history of asthma on Advair PHYSICAL EXAM: VITAL SIGNS: 10/17/22 0400 10/17/22 0500 10/17/22 0600 10/17/22 0700 BP: Pulse: 73 72 73 82 Resp: 22 21 25 24 Temp: 37.6 ?C (99.7 ?F) 37.8 ?C (100 ?F) 37.9 ?C (100.2 ?F) TempSrc: SpO2: 97% 97% 96% Weight: Height: 24 hour Intake AND Output: Intake/Output Summary (Last 24 hours) at 10/17/2022 0737 Last data filed at 10/17/2022 0719 Gross per 24 hour Intake 5944.3 ml Output 4575 ml Net 1369.3 ml GEN: No acute distress HEAD: Normocephalic, atraumatic. EYES: Anicteric sclera. EOMI. NECK: Supple CV: RRR, no murmur, gallop, or rubs. BP as documented RESP: No wheezing. No Crackles No chest wall tenderness. ABD: Soft, non-tender, non-distended. Bowel sounds normal. EXTR: No clubbing, cyanosis. no LE edema. NEURO: No focal deficit present. VENTILATOR INFORMATION: WEANING DATA: Settings: Invasive Ventilator Mode (Select One): SIMV PRVC or VC+ or APVimv (PC-IMV(1)a,s) (10/16/22 1456) %FIO2: 36 Set Ventilator Respiratory Rate (BPM): 12 Invasive Ventilator Tidal Volume Set (mL): 500 PEEP/CPAP (cm H2O): 5 Patient Data: Peak Inspiratory Pressure (cm H2O): 15 Plateau Pressure (cm H2O): 14 Weaning Data: LABs: BLOOD GAS: Recent Labs 10/16/22 1501 10/16/22 1323 10/16/22 1250 10/16/22 1201 10/16/22 1131 10/16/22 1104 10/16/22 1100 10/16/22 1042 10/16/22 0821 VPH -- -- -- -- -- 7.321 -- -- -- VPC2 -- -- -- -- -- 41.5 -- -- -- VPO2C -- -- -- -- -- 55* -- -- -- PH 7.27* -- -- -- -- -- -- -- -- PCO2 49* 38.5 45.0 41.2 41.3 -- 42.6 43.1 47.7* CBC: Recent Labs 10/17/22 0442 10/16/22 1501 WBC 14.09* 10.99 HB 13.1 12.4* HCT 39.6 38.0* PLT 201 162 MCV 91.2 91.6 RDWCV 13.4 13.3 COAG: Recent Labs 10/16/22 1501 APTT 30.2 INR 1.0 BMP: Recent Labs 10/17/22 0442 10/16/22 1501 GLUC 102* 114* NA 138 140 K 4.5 3.8 CHLOR 107* 110* CO2 22 23 ANION 9 7* BUN 14 18 CREAT 0.85 0.81 CHEM: Recent Labs 10/17/22 0442 10/16/22 1501 CA 8.5 8.7 MG 2.0 2.0 ICAL -- 1.30 HEPATIC: No results for input(s): ALKPHOS, ALT, AST, TBILI, LIPASE in the last 168 hours. URINALYSIS: Recent Labs 10/16/22 1501 PH 7.27* CARDIAC: No results for input(s): CKTEST, CKMB, CKMBP, TROPT, PBNP in the last 168 hours. IMAGING: CXR XR CHEST 1V FRONTAL Result Date: 10/16/2022 IMPRESSION: Lines and tubes appear in appropriate position. Atelectasis at the lung bases. 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: [facility] Transcribe Date/Time: Oct 16 2022 3:34P Dictated by : CALI PERDUE MD This examination was interpreted and the report reviewed and electronically signed by: CALI PERDUE MD on Oct 16 2022 3:35PM EST XR CHEST 2V FRONTAL/LAT Result Date: 10/12/2022 IMPRESSION: No acute radiographic abnormality. 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: [facility] Transcribe Date/Time: Oct 12 2022 4:25P Dictated by : TODD REYES MD This examination was interpreted and the report reviewed and electronically signed by: TODD REYES MD on Oct 12 2022 4:27PM EST CT Scans Last CT/CTA Chest/Lungs CT CHEST WO IVCON Exam End: 06/29/2022 3:27 PM (Final result) Narrative: * * *Final Report* * * DATE OF EXAM: Jun 29 2022 3:27PM [facility] 0541 - CT CHEST WO IVCON / PROCEDURE REASON: Chest pain due to myocardial ischemia, unspecified ischemic chest pain type * * * * Physician Interpretation * * * * EXAMINATION: CHEST CT WITHOUT CONTRAST CLINICAL HISTORY: Chest pain due to myocardial ischemia, unspecified ischemic chest pain type Technique: Spiral CT acquisition of the chest from the thoracic inlet to the upper abdomen without contrast. MQ: [id number]_6 CT Radiation dose: Integrated Dose-length product (DLP) for this visit = 403 mGy*cm CT Dose Reduction Employed: Automated exposure control(AEC) and iterative recon Comparison: None. RESULT: Limitations: None. Lines, tubes, and devices: None. Lung parenchyma and airways: Retained secretion noted in the trachea; otherwise the central airways are patent. A few pulmonary nodules identified. For example, a 6 mm solid nodule adjacent to the minor fissure, series 6 image 117. A 5 mm solid nodule seen along the left major fusion, series 6 image 131. No mass lesion identified. The lungs are clear of consolidations. Pleural space: No pleural effusion. No pleural thickening. Lower neck, lymph nodes, and mediastinum: The imaged thyroid gland is normal. No supraclavicular lymphadenopathy. There are a few mildly enlarged axillary and right paratracheal lymph node showing fatty tawny, presumably representing joaquina (more content not included)...[facility]01-14-2023 NoteHNO ID: [id number] Author: Maria Elena Duarte PA-C Service: Cardiovascular Surgery Author Type: Physician Business Banking Sales Assistant Type: Progress Notes Filed: 10/17/2022 11:42 AM Note Text: CARDIOTHORACIC SURGERY POSTOP PROGRESS NOTE SERVICE DATE: 10/17/2022 SERVICE TIME: 8:27 AM Subjective S/P SURGERY: Procedure(s) (LRB): BYPASS GRAFT ARTERY CORONARY ON-PUMP x 2 (ACEVEDO TO LAD SVG TO CIRC) DATE OF SURGERY: 10/16/2022 POSTOP DAY #1 LOS: 1 HPI (Per CIRO on 07/13/22): Mr. Wesley is a 72 year old male presenting back to the office for evaluation for coronary artery disease and possible CABG. Mr. Wesley is a 72 year old male former remote smoker with a history of hypertension, hyperlipidemia, type 2 diabetes controlled with dietary modifications, asthma, and CAD status post PCI in 2015. He presents to the office for evaluation of progressive significant coronary artery disease on heart catheterization and few months of exertional chest discomfort. Nuclear stress test in June 2021 which demonstrated no evidence of ischemia or infarction. Medical therapy did not relieve his symptoms, and he was taken for heart catheterization. He does have elevated PSA levels concerning for malignancy and he also has significant exposure to agent orange in the . Cardiac catheterization demonstrates nonsignificant disease in the RCA and patent stents in the PDA and PL branches with distal tapering of vessel not amenable for bypass. The circumflex branch is likely graftable vessel in its mid segment, however distally the vessel also tapers very significantly and my concern is the outflow of the graft is not good enough to maintain graft patency. The LAD is a large vessel and has proximal stenoses just prior to the stent as well as at its takeoff from the left main. Since his last office visit, the patient has obtained a TTE, endocrinology consult, PFTs, CT of the chest, and carotid artery studies, all of which returned without any surprises as below. We presented the patient in our multidisciplinary heart team conference and the recommendation was for CABG over PCI. The patient also was found to have an elevated PSA, for which he is due to get a biopsy tomorrow on 07/14. He continues to have some exertional chest discomfort, however he feels this has improved slightly since our last office visit. Pt underwent prostate biopsy on 07/14/22 as scheduled; which revealed prostatic adenocarcinoma. Uro has plans for active surveillance and is okay to proceed with CABG. Per pt's request he wanted to wait until after the holidays for CABG. INTERVAL EVENTS / PERTINENT ROS: Pt underwent CABG x 2 (ACEVEDO-LAD SVG-circumflex) with Dr. Colmenares on 10/16/2021. Pt tolerated the procedure well and there were no immediate complications. Pt was transferred to CVICU in stable condition. Pt was extubated on time per early extubation protocol. 10/17 POD#1: Pt seen in CVICU this AM. Pt hemodynamically stable with SBP 100s-150s, HR 70s, and SpO2 96% on 4L NC on no pressor support. CVP needing zero'ed, currently showing -3. Per RN only 1 LR bolus given. Pt reports moderate diffuse mid sternal pain and pain located near chest tube site this AM temporarily relieved with medication. Pt reports does feel SOB this AM and states cannot take a deep breath. Pt reporting burping up air. Some lightheadedness and slight nausea when getting up to chair. Good UOP to mendiola. Pt denies vomiting, abdominal pain, or numbness and tingling to LLE. CTs with 785 cc out since OR. Labs and imaging reviewed. Pt reports tried different statins several times that all gave him severe myalgias and fatigue he was not able to tolerate. Lipitor not listed on allergies and pt unsure if he has tried. Pt reports he gets Praluent subQ injections every other week and hasn't had one for >1 month. Objective Admission Weight: 103.1 kg (227 lb 4.7 oz) BP 165/85 Pulse 73 Temp 37.9 ?C (100.2 ?F) Resp 25 Ht 182.9 cm (6') Wt 103.1 kg (227 lb 4.7 oz) SpO2 96% BMI 30.83 kg/m? Body surface area is 2.29 meters squared. Min/Max/Average Temperature AND Blood Pressure: Temp (24hrs), Av.8 ?C (98.2 ?F), Min:35.4 ?C (95.7 ?F), Max:37.9 ?C (100.2 ?F) Systolic (24hrs), Av , Min:87 , Max:171 Diastolic (24hrs), Av, Min:54, Max:85 Intake/Output Summary (Last 24 hours) at 10/17/2022 0639 Last data filed at 10/17/2022 0600 Gross per 24 hour Intake 5944.3 ml Output 4250 ml Net 1694.3 ml TELEMETRY: normal sinus rhythm PHYSICAL EXAM: General Appearance: Awake, sitting upright in chair, appears to be in no acute distress Skin: Midsternal incision dry AND intact without surrounding erythema or edema. SVG incisions wrapped in WILLIAMS. Neck: R IJ line intact with clean dressing Lungs: Auscultated anteriorly only d/t current pain. Wheezing noted in upper lung cardona. Coarse sounds noted to L lung cardona likely d/t chest tube, decreased at b (more content not included)...[facility] 10-16-2022 NoteHNO ID: [id number] Author: Yue Marmolejo APRN.TECHNICAL SUPPORT CONSULTANT Service: Critical Care Author Type: Nurse Practitioner Type: Progress Notes Filed: 10/16/2022 7:30 PM Note Text: INPATIENT PROGRESS NOTE * SERVICE DATE: 10/16/2022 SERVICE TIME: 7:30 PM Patient doing well on weaning PSV 5/5 on 40%. NIF -21 and RSBI 49.63. Awake and following commands. Plan -Extubate -Titrate O2 as tolerated Medication and Non-Pharmacologic VTE Prophylaxis/Anticoagulants Anticoagulant AND Antiplatelet Medications (From admission, onward) Start Dose Route Frequency Last Action Ordered Stop 10/17/22 0900 aspirin 162 mg chewable tab(s) 162 mg ORAL DAILY Ordered 10/16/22 1447 -- 10/17/22 0900 enoxaparin 40 mg injection (LOVENOX) (Surgical Risk Categories) 40 mg SUBCUTANEOUS DAILY Ordered 10/16/22 1447 -- 10/16/22 1500 pneumatic compression stockings ([place] 10/16/22 1500 graduated compression stockings ([place] 10/16/22 1500 activity - mobilize patient ([place]) VTE Prophylaxis: VTE prophylaxis appropriate SIGNATURE: Yue Marmolejo APRN.CNP PATIENT NAME: Denton Wesley DATE: October 16, 2022 TIME: 7:30 [facility]01-13-2023 NoteHNO ID: [id number] Author: NINI Mcallister Service: ? Author Type: Student Type: Anesthesia Procedure Notes Filed: 10/16/2022 9:17 AM Note Text: ANESTHESIOLOGY PROCEDURE NOTE A-Line General Information Procedure Start Time/Medication Administration: 10/16/2022 7:40 AM Procedure End Time: 10/16/2022 7:57 AM Patient location during procedure: OR Timeout Performed Pre-procedure: timeout performed Consent Obtained: Yes Patient identity confirmed: arm band and patient Indications: continuous blood pressure monitoring Staffing LEAN SIX SIGMA BLACK BELT: Rebecca Wilhelm APRN.LEAN SIX SIGMA BLACK BELT SRNA: NINI Mcallister Performed by: NINI and LEAN SIX SIGMA BLACK BELT Preparation Sterility Preparation: hand hygiene performed prior to procedure, sterile gloves, drapes, and procedure tray, surgical cap used, mask used, sterile drape used during line insertion, skin prep agent completely dried prior to procedure Site Prep: Chloraprep Procedure Details Catheter Type: arterial line Catheter Size: 20 G Arterial line catheter length: 8 CM. Micropuncture Kit Used: Yes Guidewire Used: Yes Guidewire Removed Intact: Yes Laterality: left Site: brachial artery Ultrasound Guided: Yes Image in Chart: No Sites: potential access sites evaluated, selected vessel patent, concurrent real time ultrasound visualization of vascular needle entry Vessel: target vessel identified and guidewire advanced into vessel Line Secured: tape and Tegaderm Events Events: patient tolerated procedure well with no complications SIGNATURE: NINI Mcallister PATIENT NAME: Denton Wesley DATE: October 16, 2022 TIME: 9:01 AM [facility]: [id number] NoteHNO ID: [id number] Author: NINI Mcallister Service: ? Author Type: Student Type: Anesthesia Procedure Notes Filed: 10/16/2022 9:01 AM Note Text: ANESTHESIOLOGY PROCEDURE NOTE CVL General Information Procedure Start Time/Medication Administration: 10/16/2022 7:50 AM Procedure End Time: 10/16/2022 8:05 AM Patient location during procedure: OR Timeout Performed Pre-procedure: timeout performed Consent Obtained: Yes Patient identity confirmed: arm band and patient sedated or unresponsive Indication: central venous access and CVP monitoring Staffing Anesthesiologist: Sharon Ernst MD SRNA: NINI Mcallister Performed by: anesthesiologist and SRNA Preparation Sterility Preparation: hand hygiene performed prior to procedure, sterile gloves, drapes, and procedure tray, gown used during line insertion, surgical cap used, mask used, sterile drape used during line insertion, skin prep agent completely dried prior to procedure Site Prep: Chloraprep Procedure Details Patient Position: Trendelenburg Laterality: Right Site: Internal jugular Catheter Type: Standard CVL Catheter Size: 8.5 Fr Catheter Length (cm): 16 Number of Lumens: Quad lumen Ultrasound Guided: Yes Image in Chart: No Sites: potential access sites evaluated, selected vessel patent, concurrent real time ultrasound visualization of vascular needle entry Vessel: target vessel identified and guidewire advanced into vessel Needle advanced into vein and blood aspirated: Yes Transduced prior to dilation: Yes Number of Attempts: 1 Number of Guidewires Used: 1 Number of Guidewires Removed Intact: 1 Post Insertion Ports and Catheter: all ports aspirate easily, all ports flush easily and ports flushed with saline Catheter Secured: suture(s) Events Events: patient tolerated procedure well with no complications SIGNATURE: NINI Mcallister PATIENT NAME: Denton Wesley DATE: October 16, 2022 TIME: 8:59 AM [facility]: [id number] NoteHNO ID: [id number] Author: Rebecca Wilhelm APRN.CRNA Service: Anesthesiology Author Type: Nurse Thread Machine Operator Type: Anesthesia Procedure Notes Filed: 10/16/2022 9:59 AM Note Text: ANESTHESIOLOGY PROCEDURE NOTE Airway General Information Procedure Start Time/Medication Administration: 10/16/2022 7:45 AM Procedure End Time: 10/16/2022 7:47 AM Patient location during procedure: OR Timeout Performed Pre-procedure: timeout performed Consent Obtained: Yes Patient identity confirmed: arm band and patient Staffing Anesthesiologist: Sharon Ernst MD SRNA: NINI Mcallister Performed by: anesthesiologist and SRNA Indications and Patient Condition Indications for airway management: anesthesia and airway protection Preoxygenated: yes anesthesia circuit Patient position: sniffing Method: asleep Cricoid Pressure: Yes Final Airway Details Final airway type: endotracheal airway Final Endotracheal Airway: ETT Cuffed: yes Successful intubation technique: direct laryngoscopy Endotracheal tube insertion site: oral Blade: Luci Blade size: #4 ETT size (mm): 8.0 Measured from: lips Measurement (cm): 22 Placement verified by: chest auscultation and capnometry Cormack-Lehane Classification: grade IIb - view of arytenoids or posterior of glottis only Number of attempts at approach: 1 SIGNATURE: NINI Mcallister PATIENT NAME: Denton Wesley DATE: October 16, 2022 TIME: 8:54 AM CSN: [id number] NoteHNO ID: [id number] Author: Shanelle Steve APRN.CNP Service: Cardiovascular Surgery Author Type: Nurse Practitioner Type: Plan of Care Filed: 10/09/2022 10:07 AM Note Text: CTVS Surgery Pre-Op Open Heart Check List Patient Info: Denton Wesley 1950 72 year old STS RISK SCORE: Risk of Mortality: 0.398% Renal Failure: 0.367% Permanent Stroke: 0.465% Prolonged Ventilation: 2.706% DSW Infection: 0.129% Reoperation: 1.897% Morbidity or Mortality: 4.612% Short Length of Stay: 62.723% Long Length of Stay: 1.413% Pre-Op Testing: LABS: CHEMISTRY Sodium Date Value 10/02/2022 142 mmol/L 06/10/2022 137 mmol/L 03/20/2022 138 mmol/L 04/01/2021 139 mmol/L 10/23/2020 137 mmol/L 03/20/2016 141 mEq/L Chloride Date Value 10/02/2022 104 mmol/L 06/10/2022 105 mmol/L 03/20/2022 105 mmol/L 04/01/2021 105 mmol/L 10/23/2020 102 mmol/L 03/20/2016 109 mEq/L CO2 Date Value 10/02/2022 28 mmol/L 06/10/2022 22 mmol/L 03/20/2022 24 mmol/L 04/01/2021 19 mmol/L 10/23/2020 26 mmol/L 03/20/2016 26 mEq/L BUN (mg/dL) Date Value 10/02/2022 16 06/10/2022 19 03/20/2022 19 04/01/2021 16 10/23/2020 15 03/20/2016 14 Creatinine (mg/dL) Date Value 10/02/2022 0.82 06/10/2022 0.74 03/20/2022 1.05 04/01/2021 0.78 10/23/2020 0.90 03/20/2016 0.67 Glucose (mg/dL) Date Value 10/02/2022 108 06/10/2022 163 03/20/2022 158 04/01/2021 117 10/23/2020 149 03/20/2016 145 Magnesium (mg/dL) Date Value 10/02/2022 2.1 03/20/2022 2.0 Protein, Total (g/dL) Date Value 10/02/2022 7.5 03/10/2022 7.3 04/01/2021 7.1 10/23/2020 7.2 Calcium (mg/dL) Date Value 04/01/2021 9.5 10/23/2020 9.4 03/20/2016 8.7 Calcium, Total (mg/dL) Date Value 10/02/2022 9.7 06/10/2022 9.2 03/20/2022 8.7 Bilirubin, Total (mg/dL) Date Value 10/02/2022 0.4 03/10/2022 0.4 04/01/2021 0.3 10/23/2020 0.3 Alkaline Phosphatase (U/L) Date Value 10/02/2022 59 03/10/2022 57 04/01/2021 53 10/23/2020 55 ALT (U/L) Date Value 10/02/2022 28 03/10/2022 25 04/01/2021 21 10/23/2020 25 AST (U/L) Date Value 10/02/2022 19 03/10/2022 19 04/01/2021 15 10/23/2020 17 Anion Gap Date Value 10/02/2022 10 mmol/L 06/10/2022 10 mmol/L 03/20/2022 9 mmol/L 04/01/2021 15 mmol/L 10/23/2020 9 mmol/L 03/20/2016 10 { Lipid Panel Cholesterol, Total Date Value Ref Range Status 03/12/2022 107 <200 mg/dL Final Comment: <200 mg/dL, Desirable 200-239 mg/dL, Borderline high >239 mg/dL, High HDL Cholesterol Date Value Ref Range Status 03/12/2022 42 >39 mg/dL Final Comment: 40-59 mg/dL, Acceptable >59 mg/dL, High: Negative risk factor for coronary heart disease <40 mg/dL, Low: Positive risk factor for coronary heart disease LDL Cholesterol Date Value Ref Range Status 03/12/2022 55 <100 mg/dL Final Comment: <100 mg/dL, Optimal 100-129 mg/dL, Near optimal/above optimal 130-159 mg/dL, Borderline high 160-189 mg/dL, High >189 mg/dL, Very high Secondary prevention optimal LDL Cholesterol levels are recommended to be < 70 mg/dL Triglyceride Date Value Ref Range Status 03/12/2022 50 <150 mg/dL Final Comment: <150 mg/dL, Normal 150-199 mg/dL, Borderline high 200-499 mg/dL, High >499 mg/dL, Very high NT Pro BNP No results found for: PBNP ENDOCRINE Hemoglobin A1C (%) Date Value 10/02/2022 6.9 04/01/2021 6.6 Lab Results Component Value Date TSH 0.951 10/02/2022 HEMATOLOGY RBC Date Value 10/02/2022 5.04 m/uL 06/10/2022 4.94 m/uL 03/20/2022 4.85 m/uL 10/23/2020 5.29 m/uL 03/20/2016 4.52 mil/cmm 03/19/2016 4.43 mil/cmm Hemoglobin (g/dL) Date Value 10/02/2022 15.1 06/10/2022 14.7 03/20/2022 14.8 10/23/2020 15.7 HGB (g/dL) Date Value 03/20/2016 13.5 03/19/2016 13.1 Hematocrit (%) Date Value 10/02/2022 46.0 06/10/2022 44.1 03/20/2022 44.6 10/23/2020 47.7 03/20/2016 40.9 03/19/2016 39.9 WBC Date Value 10/02/2022 7.49 k/uL 06/10/2022 7.09 k/uL 03/20/2022 8.40 k/uL 10/23/2020 7.77 k/uL 03/20/2016 11.4 thou/cmm 03/19/2016 9.0 thou/cmm Platelet Count Date Value 10/02/2022 305 k/uL 06/10/2022 263 k/uL 03/20/2022 291 k/uL 10/23/2020 326 k/uL 03/20/2016 264 thou/cmm 03/19/2016 277 thou/cmm COAGULATION PT Sec Date Value Ref Range Status 10/02/2022 9.8 9.7 - 13.0 sec Final INR Date Value Ref Range Status 10/02/2022 <0.9 (L) 0.9 - 1.3 Final Comment: Vitamin K Antagonist (VKA) Therapeutic Range: INR 2 to 3 (Target INR of 2.5) Note: For patients treated with VKA drugs, such as warfarin, the [place] [employer] 2012 Guideline recommends a therapeutic INR range of 2 to 3 (target INR of 2.5). This recommendation includes high-risk patients with antiphospholipid syndrome with previous arterial or venous thromboembolism, current-generation mechanical or bioprosthetic aortic heart valve replacement. Not (more content not included)...[facility]01-04-2023 NoteHNO ID: [id number] Author: Joan Espinal Service: ? Author Type: ? Type: Nursing Progress Note Filed: 10/07/2022 9:14 AM Note Text: Ellyn from blood bank called regarding patient type and screen per lab Conf. ABO need to be done day of surgery on 10/09/22.[facility] 10-06-2022 Miscellaneous Notes* Telephone Encounter - Shanelle Steve APRN.CNP - 10/06/2022 4:17 PM EST Pt is pre-op CABG scheduled for 10/09. Pre-op MRSA swab came back +. Discussed with Dr. Colmenares and we will reschedule pt's surgery after 7 days of MRSA decolonization. Pt and called and updated. Told to continue mupirocin BID for a total of 7 days, and daily Hibiclens baths x 7 days. He verbalized understanding and is awaiting OR reschedule. Shanelle Steve APRN.CNP October 06, 2022 4:18 PM documented [facility]22 NoteHNO ID: [id number] Author: Shanelle Steev APRN.CNP Service: ? Author Type: Nurse Practitioner Type: Progress Notes Filed: 10/02/2022 4:46 PM Note Text: HISTORY and PHYSICAL CARDIOTHORACIC SURGERY HPI: (Per CIRO on 07/13/22): Mr. Wesley is a 72 year old male presenting back to the office for evaluation for coronary artery disease and possible CABG. Mr. Wesley is a 72 year old male former remote smoker with a history of hypertension, hyperlipidemia, type 2 diabetes controlled with dietary modifications, asthma, and CAD status post PCI in 2015. He presents to the office for evaluation of progressive significant coronary artery disease on heart catheterization and few months of exertional chest discomfort. Nuclear stress test in June 2021 which demonstrated no evidence of ischemia or infarction. Medical therapy did not relieve his symptoms, and he was taken for heart catheterization. He does have elevated PSA levels concerning for malignancy and he also has significant exposure to agent orange in the . Cardiac catheterization demonstrates nonsignificant disease in the RCA and patent stents in the PDA and PL branches with distal tapering of vessel not amenable for bypass. The circumflex branch is likely graftable vessel in its mid segment, however distally the vessel also tapers very significantly and my concern is the outflow of the graft is not good enough to maintain graft patency. The LAD is a large vessel and has proximal stenoses just prior to the stent as well as at its takeoff from the left main. Since his last office visit, the patient has obtained a TTE, endocrinology consult, PFTs, CT of the chest, and carotid artery studies, all of which returned without any surprises as below. We presented the patient in our multidisciplinary heart team conference and the recommendation was for CABG over PCI. The patient also was found to have an elevated PSA, for which he is due to get a biopsy tomorrow on 07/14. He continues to have some exertional chest discomfort, however he feels this has improved slightly since our last office visit. Pt underwent prostate biopsy on 07/14/22 as scheduled; which revealed prostatic adenocarcinoma. Uro has plans for active surveillance and is okay to proceed with CABG. Pt pt's request he wanted to wait until after the holidays for CABG. He presents today for PAT. He denies any recent changes to his pmhx of cardiac SANDS. He still needs pre-op CXR and labs. PAST MEDICAL HISTORY: PAST MEDICAL HISTORY Diagnosis Date Abdominal pain, other specified site Asthma CAD (coronary artery disease) Cholelithiasis 09/25/13 Colitis Esophageal reflux Gastroesophageal reflux Hypertension Impotence of organic origin Impotence SUJEY (obstructive sleep apnea) RUQ abdominal pain 09/25/13 PAST SURGICAL HISTORY: PAST SURGICAL HISTORY Procedure Laterality Date COLONOSCOPY FLX DX W/COLLJ SPEC WHEN PFRMD Colonoscopy Dr. Ferreira ESOPHAGOGASTRODUODENOSCOPY TRANSORAL DIAGNOSTIC EGD Dr. Ferreira LAPAROSCOPY SURG CHOLECYSTECTOMY 09/25/2013 PAST SURGICAL HISTORY OF IANDD left hand PAST SURGICAL HISTORY OF Removal cyst on back PROSTATE BIOPSY GUKI 07/14/2022 STENT PLACEMENT 4 Stents FAMILY HISTORY: FAMILY HISTORY Problem Relation Age of Onset Colon Cancer Mother Heart Mother Ovarian cancer Mother Prostate Cancer Brother Stroke Brother Emphysema Father SOCIAL HISTORY: Social History Tobacco Use Smoking status: Former Types: Cigarettes Quit date: 10/27/2011 Years since quittin.9 Smokeless tobacco: Never Vaping Use Vaping Use: Never used Substance Use Topics Alcohol use: Yes Comment: 1 beer in the evening occasionally Drug use: No SOCIAL HISTORY OF IVDU: No SOCIAL HISTORY OF Smoking: Yes SOCIAL HISTORY OF Alcohol Dependency: No MEDICATIONS: Prior to Admission Medications: carvedilol (COREG) 25 mg tabletTake 1.5 tablets by mouth twice daily with meals.Disp: 90 tabletRfl: 11 lansoprazole (PREVACID) 30 mg capsuleTake 1 capsule by mouth daily before breakfast. 1/2 hr before meal.Disp: 30 capsuleRfl: 5 losartan (COZAAR) 100 mg tabletTake 1 tablet by mouth once daily.Disp: 30 tabletRfl: 5 tamsulosin (FLOMAX) 0.4 mgTake 1 capsule by mouth daily at bedtime.Disp: 90 capsuleRfl: 3 FARXIGA 10 mg tabletTake 10 mg by mouth once daily.Disp: Rfl: alirocumab (PRALUENT PEN) 75 mg/mL penInject 1 mL subcutaneously every other week.Disp: 2 mLRfl: 11 clopidogrel (PLAVIX) 75 mg tabletTake 1 tablet by mouth once daily.Disp: 90 tabletRfl: 3 ADVAIR DISKUS 500-50 mcg/dose dsdvINHALE 1 (ONE) puff EVERY 12 HOURSDisp: Rfl: metoprolol tartrate, short acting, (LOPRESSOR) 100 mg tabletTake 1 tablet by mouth one time only for 1 dose. Day of surgeryDisp: 1 tabletRfl: 0 acetaminophen (TYLENOL EXTRA STRENGTH) 500 mg tabletTake 2 tablets by mouth one time only for 1 dose. Day of surgeryDisp: 2 tabletRf (more content not included)...[facility]12-30-2022 History of Present illness Narrative* Shanelle Steve APRN.TECHNICAL SUPPORT CONSULTANT - 10/02/2022 3:09 PM EST Images from the original note were not included. HISTORY and PHYSICAL CARDIOTHORACIC SURGERY HPI: (Per CIRO on 07/13/22): Mr. Wesley is a 72 year old male presenting back to the office for evaluation for coronary artery disease and possible CABG. Mr. Wesley is a 72 year old male former remote smoker with a history of hypertension, hyperlipidemia, type 2 diabetes controlled with dietary modifications, asthma, and CAD status post PCI in 2015. He presents to the office for evaluation of progressive significant coronary artery disease on heart catheterization and few months of exertional chest discomfort. Nuclear stress test in June 2021 which demonstrated no evidence of ischemia or infarction. Medical therapy did not relieve his symptoms, and he was taken for heart catheterization. Johana have elevated PSA levels concerning for malignancy and he also has significant exposure to agent orange in the . Cardiac catheterization demonstrates nonsignificant disease in the RCA and patent stents in the PDA and PL branches with distal tapering of vessel not amenable for bypass. The circumflex branch is likely graftable vessel in its mid segment, however distally the vessel also tapers very significantly and my concern is the outflow of the graft is not good enough to maintaingraft patency. The LAD is a large vessel and has proximal stenoses just prior to the stent as well as at its takeoff from the left main. Since his last office visit, the patient has obtained a TTE, endocrinology consult, PFTs, CT of the chest, and carotid artery studies, all of which returned without any surprises as below. We presented the patient in our multidisciplinary heart team conference and the recommendation was for CABG over PCI. The patient also was found to have an elevated PSA, forwhich he is due to get a biopsy tomorrow on 07/14. He continues to have some exertional chest discomfort, however he feels this has improved slightly since our last office visit. Pt underwent prostate biopsy on 07/14/22 as scheduled; which revealed prostatic adenocarcinoma. Uros plans for active surveillance and is okay to proceed with CABG. Pt pt's request he wanted to wait until after the holidays for CABG. He presents today for PAT. He denies any recent changes to his pmhx of cardiac S&S. He still needs pre-op CXR and labs. PAST MEDICAL HISTORY: PAST MEDICAL HISTORY Diagnosis Date Abdominal pain, other specified site Asthma CAD (coronary artery disease) Cholelithiasis 09/25/13 Colitis Esophageal reflux Gastroesophageal reflux Hypertension Impotence of organic origin Impotence SUJEY (obstructive sleep apnea) RUQ abdominal pain 09/25/13 PAST SURGICAL HISTORY: PAST SURGICAL HISTORY Procedure Laterality Date COLONOSCOPY FLX DX W/COLLJ SPEC WHEN PFRMD Colonoscopy Dr. Ferreira ESOPHAGOGASTRODUODENOSCOPY TRANSORAL DIAGNOSTIC EGD Dr. Ferreira LAPAROSCOPY SURG CHOLECYSTECTOMY 09/25/2013 PAST SURGICAL HISTORY OF I&D left hand PAST SURGICAL HISTORY OF Removal cyst on back PROSTATE BIOPSY GUKI 07/14/2022 STENT PLACEMENT 4 Stents FAMILY HISTORY: FAMILY HISTORY Problem Relation Age of Onset Colon Cancer Mother Heart Mother Ovarian cancer Mother Prostate Cancer Brother Stroke Brother Emphysema Father SOCIAL HISTORY: Social History Tobacco Use Smoking status: Former Types: Cigarettes Quit date: 10/27/2011 Years since quittin.9 Smokeless tobacco: Never Vaping Use Vaping Use: Never used Substance Use Topics Alcohol use: Yes Comment: 1 beer in the evening occasionally Drug use: No SOCIAL HISTORY OF IVDU: No SOCIAL HISTORY OF Smoking: Yes SOCIAL HISTORY OF Alcohol Dependency: No MEDICATIONS: Prior to Admission Medications: carvedilol (COREG) 25 mg tablet^Take 1.5 tablets by mouth twice daily with meals.^Disp: 90 tablet^Rfl: 11 lansoprazole (PREVACID) 30 mg capsule^Take 1 capsule by mouth daily before breakfast. 1/2 hr beforemeal.^Disp: 30 capsule^Rfl: 5 losartan (COZAAR) 100 mg tablet^Take 1 tablet by mouth once daily.^Disp: 30 tablet^Rfl: 5 tamsulosin (FLOMAX) 0.4 mg^Take 1 capsule by mouth daily at bedtime.^Disp: 90 capsule^Rfl: 3 FARXIGA 10 mg tablet^Take 10 mg by mouth once daily.^Disp: ^Rfl: alirocumab (PRALUENT PEN) 75 mg/mL pen^Inject 1 mL subcutaneously every other week.^Disp: 2 mL^Rfl:11 clopidogrel (PLAVIX) 75 mg tablet^Take 1 tablet by mouth once daily.^Disp: 90 tablet^Rfl: 3 ADVAIR DISKUS 500-50 mcg/dose dsdv^INHALE 1 (ONE) puff EVERY 12 HOURS^Disp: ^Rfl: metoprolol tartrate, short acting, (LOPRESSOR) 100 mg tablet^Take 1 tablet by mouth one time only for 1 dose. Day of surgery^Disp: 1 tablet^Rfl: 0 acetaminophen (TYLENOL EXTRA STRENGTH) 500 mg tablet^Take 2 tablets by mouth one time only for 1 dose. Day of surgery^Disp: 2 tablet^Rfl: 0 [START ON 10/03/2022] mupirocin (BACTROBAN) 2 % ointment^Apply a small amount in each nostril usinga cotton swab twice a day for five days prior to surgery^Disp: 22 g^Rfl: 0 Chlorhexidine Gluconate (PERIDEX) 0.12 % solution^Use 15 mL as instructed twice daily for 5 days. Rinse around mouth for 30 seconds then expectorate^Disp: 150 mL^Rfl: 0 aspirin, enteric coated (ASPIRIN, ENTERIC COATED) 81 mg EC tablet^aspirin ASPIRIN 81 MG TABS One tablet by mouth daily ASPIRIN [id number] Daya Deal RN 02-20-2016 [facility] ([id number])^Disp: ^Rfl: Current Facility-Administered Medications Medication Dose Route Frequency perflutren lipid microspheres 1.3 mL in NaCl (PF) 0.9% 10 mL injection (DEFINITY) INTRAVENOUS DIRECTED PRN sodium chloride 0.9 % (flush) 10 mL (BD POSIFLUSH) 10 mL INTRAVENOUS DIRECTED PRN perflutren lipid microspheres 1.3 mL in NaCl (PF) 0.9% 10 mL injection (DEFINITY) INTRAVENOUS DIRECTED PRN sodium chloride 0.9 % (flush) 10 mL (BD POSIFLUSH) 10 mL INTRAVENOUS DIRECTED PRN ALLERGIES: ALLERGIES Allergen Reactions Gemfibrozil Intolerance Rosuvastatin Intolerance Simvastatin Intolerance Imdur [Isosorbide] Other: See Comments Headaches, upset stomach, fatigue Penicillins Other: See Comments passed out and felt like I had the flu Pt states he's no longer allergic to this, he's taken tests w/out issues. Pravastatin Myalgia COMPLETE REVIEW OF SYSTEMS: (10) Constitutional: No weight loss, malaise or fevers. HEENT: Negative for frequent or significant headaches, No changes in hearing or vision, no nose bleeds or other nasal problems Resp: Negative for cough, wheezing, or shortness of breath Cardiovascular: Negative for chest pain, leg swelling or palpitations GI: Negative for abdominal discomfort, blood in stools or black stools or change in bowel habits : No history of dysuria, frequency, or incontinence Endo: Negative for cold or heat intolerance, polyuria, polydipsia and goiter Heme/Lymph: Negative for prolonged bleeding, bruising easily or swollen nodes Neurologic: No history or headaches, syncope, paralysis, seizures or tremors Integumentary: Negative for lesions, rash, and itching. PHYSICAL EXAM: (8) BP 140/80 (BP Site: Left Arm, BP Position: Sitting) Pulse 72 Resp 16 Ht 6'(1.829 m) Wt 227 lb 3.2 oz (103.1 kg) SpO2 98% BMI 30.81 kg/m Constitutional: Well developed, Obese, and No acute distress HEENT: PERRLA and EOM's intact Resp: Clear and Respiratory effort: normal Cardiovascular: Regular rate & rhythm GI: Soft, Round, and Bowel sounds present Integumentary: Warm, Dry, and No rash on chest, arms or legs Musculoskeletal: No deformities Neurological/Psychiatric: Oriented to time, place & person Labs: Invalid input(s): MBP Cholesterol, Total 107 03/12/2022 HDL Cholesterol 42 03/12/2022 LDL Calculated 55 03/12/2022 DATA: I have personally reviewed the following data: ECHO and [facility] Impression: Denton Wesley is a 72 yo male with a pmhx of CAD s/p PCI in 2016, asthma, DM2, HTN, HLD, prostate cancer under active surveillance, exposure to agent orange, obesity, and former smoker here for PAT prior to CABG. Plan: - Pt still needs pre-op CXR and labs; he will get following this appointment - MRSA swab obtained - Pt to hold Plavix 5 days, Farxiga 3 days, and Losartan 24 hrs prior to OR - Pre-op drinks and education provided - Plans for OR on 10/09/21 SIGNATURE:Shanelle Steve APRN.CNP Date of Service: 10/02/22 Time of Service: 1500 documented in this encounterU[facility]12-30-2022 Instructions* Patient Instructions* Shanelle Steve APRN.CNP - 10/02/2022 3:03 PM EST - Please get labs drawn and a chest XR following this appointment [facility] Pre-Admission Patient Instruction You are scheduled for surgery (inpatient) located on the 2nd Floor on: 10/09/21 (your surgery date issubject to change should there be emergencies prior to your scheduled OR time). Come in the Front Doors / Main Entrance of the hospital. No need to stop at front entrance registration. Please check in to the Surgery [facility] (2nd Floor) at: 6 AM Nothing by mouth after midnight: Do not eat or drink anything, including water and coffee, after 12AM on the morning of your surgery. This is important because if you do, your surgery may have to becancelled. Eat a light supper the evening before surgery or follow specific doctor's instructions. Oral hygiene and a shower or bath is required the evening before or the morning of surgery. Use theprescribed mouth water and Hibiclens body wash supplied to you along with the instruction. Do not chew gum/mints, or use oral spray the morning of surgery. Notify your doctor if you develop a cold, sore throat, fever or other changes in your physical condition. No alcohol 24 hours before or after surgery and refrain from smoking the morning of surgery and immediately following surgery. Leave valuables such as rings, watches and money at home. Remove all make-up and nail stateless beforeadmission. We need to check your circulation. Remove jewelry from all piercings, tongue included, as no metal can go into surgery. Wear loose, comfortable clothing that will accommodate bandages. You will be asked to remove glasses or contacts, and/or your denture prior to surgery. Please bringa case. Your belongings will be kept in an assigned locker until we know your new room after procedure. Please bring your CPAP or BIPAP or any necessary medical equipments, we will keep them in an assigned locker until you are assigned a post-op room. Your length of stay will be determined by your surgeon/surgery team, the anesthesiologist as well as your post of progress. On the morning of surgery, your point of contact will be instructed on communication regarding surgery updates. Please bring a list of any medication you are taking including dose and the condition for which youare being treated. Medications to stop in preparing surgery: Stop Anticoagulant: Plavix, last dose on: 10/03/22 Stop losartan 24 hours before surgery, last dose on: 10/07/22 If you are taking the following medications for Type 2 diabetes: dapagliflozin (FARXIGA) should each be discontinued at least 3 days before scheduled surgery. Infection control and prevention: For nose- Mupirocin ointment: Please get a pea sized amount on a q-tip to apply inside your nose twice daily for five days prior to surgery. 5-7 days total if you are tested positive for MRSA. For mouth- Peridex therapy should be initiated for surgery prophylaxis 3-5 days prior surgery. Recommended use is twice daily oral rinsing for 30 seconds, morning and evening after toothbrushing. Usual dosage is 15ml (marked in cap) of undiluted Peridex. Please do not rinse with water or other mouthwashes, brush teeth or eat immediately after using Peridex. Peridex is not intended for ingestion and should be expectorated after rinsing. For body- Hibiclens body wash the night before and morning of surgery. If you are positive of MRSA,you would need shower daily with the Hibiclens body solution for 5 days total (you can get additional amount from any local drug store). Pre-Op COVID TEST: it is ordered. You will be instructed to have this test completed 2-3 days priorto your surgery date. PLEASE make sure you complete this test to prevent any surgery delay or possible cancellation. If you have not receive call regarding the test, please call [phone]. Nutritional support/Ensure Drinks Instruction (Please continue eating your usual heart healthy diet): 2 protein shakes daily for 5 days before surgery 2 presurgical clear drinks the night before surgery 1 presurgical clear drink 2 hrs before surgery Medications to take with small amount of fluid in the morning of surgery: Aspirin 81 mg Beta Ari (Metoprolol) Tylenol 1000 mg If you have respiratory inhaler, please give yourself a treatment prior to come in If you are diabetic, please check you blood sugar prior to come in PLEASE COMPLETE THE SHOWER, MOUTH WASH, NASAL OINTMENT, FINISH YOUR DRINK AND PRE-OP MEDICATIONS NOLATER THAN 5:30 AM, THANKS. Please call office at [phone] or ADmantX message me if you have additional questions, Thanks. Shanelle Steve APRN.CNP 10/02/22 documented in this encounterUc [facility] Center12-22-2022 History of Present illness Narrative* Bessie Brown MA - 09/24/2022 9:15 AM EST POPULATION HEALTH NAVIGATION OUTREACH Action/COURTNEY Spoke with Denton.He is having heart surgery. Patient will call back to schedule appt . ANNUAL MEDICARE WELLNESS EXAM COLORECTAL CANCER SCREENING due on 10/04/2012 ADVANCE DIRECTIVE DISCUSSION Never done BP CONTROLLED (<130/80) due on 04/01/2022 Pt identified by name and : YES, via phone Outreach Outcome/Action Spoke to patient or caregiver: Patient will return the call or ask for return call Did you use a PCP flex slot to schedule this appointment? N/A Reason for Outreach Care Gap or Scheduling/Wellness visits Payer: Payor: MEDICARE / Plan: MEDICARE A AND B / Product Type: Medicare / Care Gap Reviewed:: Annual Wellness visit Controlling Blood Pressure Colorectal Cancer Screening Reminder: Reminder note to check Health Maintenance for items below Health Maintenance items due: ABDOMINAL AORTIC ANEURYSM SCREENING Never done PNEUMOCOCCAL: 65+(1 - PCV) Never done COLORECTAL CANCER SCREENING due on 10/04/2012 SHINGRIX VACCINE(2 of 2) due on 12/22/2019 ADVANCE DIRECTIVE DISCUSSION Never done BP CONTROLLED (<130/80) due on 04/01/2022 Navigation Signature: Bessie Brown MA September 24, 2022 9:15 AM documented in this encounterUc Medical Center12-02-2022 Miscellaneous Notes* Telephone Encounter - Angelita Mckeon - 09/04/2022 3:55 PM EST Pt has orders for COVID test to be done in [place] on 10/06/21 at 2 pm. Unable to schedule due to another procedure on his schedule for the same date that overlaps the time. Unable to schedule at the time of call. * Telephone Encounter - Brenton Bagley - 09/04/2022 2:10 PM EST Spoke with pt to reschedule heart surgery. Preadmission instructions office visit 10/02/22 3pm. Presurgical labs to be drawn 10/02/22 while here in [place], since pt lives in [place], [place]. No fasting required. [facility]. COVID test 10/06/22 2:30pm [facility]. CABG 10/09/22 arrival time 6am procedure time 7:30am at [facility] documented in this encounterUc Medical Center12-02-2022 Miscellaneous Notes* Telephone Encounter - Brenton Bagley - 09/04/2022 9:41 AM EST Left message requesting call back to discuss rescheduling CABG documented in this encounterUc Medical Center11-30-2022 Miscellaneous Notes* Telephone Encounter - Gerri Curry APRN.CNP - 09/02/2022 6:20 PM EST The following approved medication requests have been transmitted electronically. Requested Prescriptions Signed Prescriptions Disp Refills lansoprazole (PREVACID) 30 mg capsule 30 capsule 5 Sig: Take 1 capsule by mouth daily before breakfast. 1/2 hr before meal. Gerri Curry APRN.CNP * Telephone Encounter - Joseph Tubbs Ma - 09/02/2022 12:29 PM EST After review pt has been getting this filled by Kate Velazquez. Last rx filled 06/03/22 #60 w/8 [facility] [place]. Pt made aware of this. Joseph Tubbs Ma documented in this encounterUc Medical Center11-23-2022 Miscellaneous Notes* Telephone Encounter - Madhuri Greenwood Ma - 08/26/2022 4:34 PM EST Forms at med rec. Pt notified via [employer]. 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 Notified of this via [employer]. Copy made for records Madhuri Greenwood Ma documented in this encounterUc Medical Center11-18-2022 History of Present illness Narrative* Charley Cordoba RDMS - 08/21/2022 3:15 PM EST Radiology Service Progress Note PATIENT NAME: Denton Wesley DATE OF SERVICE: August 21, 2022 TIME: 3:36 PM PATIENT IDENTITY VERIFICATION COMPLETED USING TWO (2) IDENTIFIERS: Name and Date of confirmedby patient verbally. FALL SCREENING: Has the patient had 2 falls in the last year or 1 fall with injury or currently using an Ambulatory Assistive Device (Walker, Cane, Wheelchair, Crutches, etc.)? No PATIENT GENDER DATA: Male PATIENT RELEVANT IMPLANT DATA REVIEWED: Not Applicable RADIOLOGY DEPARTMENT: Ultrasound PERIPHERAL IV DATA: Not applicable SIGNED BY: Charley Cordoba RDMS RVT August 21, 2022 3:36 PM documented in this encounterUc Medical Center11-03-2022 Miscellaneous Notes* Telephone Encounter - Deepika Rodriguez Cma - 08/06/2022 9:26 AM EDT Decipher test sent Deepika Rodriguez Cma documented in this encounterUc Medical Center11-03-2022 Miscellaneous Notes* Telephone Encounter - Brenton Bagley - 08/06/2022 9:17 AM EDT Phoned pt to schedule CABG offered 08/17/22 pt declined. Opted for 08/28/22 instead. Preadmission instructions office visit 08/21/22 2pm. Presurgical labs to be drawn 08/21/22 while here in [place], since pt lives in [place], [place]. No fasting required. [facility]. COVID test 08/25/22 walk-in appt at [facility]. CABG 08/28/22 arrival time 6am procedure time 7:30am at [facility]. documented in this encounterUc Medical Center11-02-2022 NoteHNO ID: [id number] Author: Aris Tolbert, DO Service: ? Author Type: Physician Type: Progress Notes Filed: 08/05/2022 10:54 AM Note Text: [facility] LOCATION: [address] [place] [address] ESTABLISHED PATIENT PATIENT INFO: Denton Wesley 72 year old Chief Complaint: Prostate Cancer HPI S/P Prostate biopsy Doing well No post biopsy issues CT Pelvis negative. Bone scan pending. 1-Duration: 2021 2-Location: prostate 3-Severity: N/A 4-Quality: Not applicable 5-Context: N/A 6-Timing: N/A 7-Modifying factors: No treatment prior to referral 8-Associated signs AND symptoms: no additional symptoms No question data found. PATHOLOGY: FINAL DIAGNOSIS A. Prostate, right base, needle core biopsy: - Benign prostatic tissue. B. Prostate, right mid, biopsy: - Benign prostatic tissue. C. Prostate, right apex, biopsy: - Benign prostatic tissue. D. Prostate, right lateral base, biopsy: - Benign prostatic tissue. E. Prostate, right lateral mid, biopsy: - Benign prostatic tissue. F. Prostate, right lateral apex, biopsy: - Benign prostatic tissue. G. Prostate, left base, biopsy: - Prostatic adenocarcinoma Erica score 3+4 = 7 (grade group 2) involving 25% of 1 core (3 mm tumor length). 40% pattern 4. High-grade prostatic intraepithelial neoplasia. H. Prostate, left mid, biopsy: - Prostatic adenocarcinoma Eugene score 3+4 = 7 (grade group 2) involving 35% of 1 core (4 mm tumor length). 45% pattern 4. I. Prostate, left apex, biopsy: - Prostatic adenocarcinoma Erica score 3+4 = 7 (grade group 2) involving 10% of 1 core (1 mm tumor length). 40% pattern 4. J. Prostate, left lateral base, biopsy: - Benign prostatic tissue. K. Prostate, left lateral mid, biopsy: - Prostatic adenocarcinoma Eugene score 4+3 = 7 (grade group 3) involving 23% of 1 core (3 mm tumor length). 60% pattern 4. L. Prostate, left lateral apex, biopsy: - Prostatic adenocarcinoma Erica score 4+3 = 7 (grade group 3) involving 45% of 1 core (6 mm tumor length). 55% pattern 4. Small gland cribriform pattern 4 present. Prostate Cancer Biopsy Summary Number of cores examined: 12 Number of cores positive: 5 Highest Grade Group: 3 Highest % of core involvement: 45 % Cribriform pattern 4: Present Intraductal carcinoma: Absent Pumper Helper tumor block to use for additional studies: L LAB: WBC (k/uL) Date Value 06/10/2022 7.09 RBC (m/uL) Date Value 06/10/2022 4.94 Hemoglobin (g/dL) Date Value 06/10/2022 14.7 Hematocrit (%) Date Value 06/10/2022 44.1 MCV (fL) Date Value 06/10/2022 89.3 MCH (pg) Date Value 06/10/2022 29.8 MCHC (g/dL) Date Value 06/10/2022 33.3 RDW-CV (%) Date Value 06/10/2022 13.4 Platelet Count (k/uL) Date Value 06/10/2022 263 MPV (fL) Date Value 06/10/2022 8.9 (L) Neut% (%) Date Value 02/09/2022 62.4 Lymph% (%) Date Value 02/09/2022 23.1 Forest% (%) Date Value 02/09/2022 8.8 Eosin% (%) Date Value 10/23/2020 4.5 Baso% (%) Date Value 02/09/2022 1.0 Abs Neut (k/uL) Date Value 02/09/2022 5.37 Abs Forest (k/uL) Date Value 02/09/2022 0.76 Abs Eosin (k/uL) Date Value 02/09/2022 0.36 Abs Baso (k/uL) Date Value 02/09/2022 0.09 Creatinine Date Value Ref Range Status 06/10/2022 0.74 0.73 - 1.22 mg/dL Final 03/20/2022 1.05 0.73 - 1.22 mg/dL Final 03/10/2022 1.02 0.73 - 1.22 mg/dL Final 04/01/2021 0.78 0.73 - 1.22 mg/dL Final PSA (ng/mL) Date Value 03/12/2022 4.62 03/10/2022 4.86 PSA, Percent Free (%) Date Value 03/12/2022 14 URINE POC GLUCOSE UA (POCT) 500 07/14/2022 BILIRUBIN UA (POCT) Negative 07/14/2022 KETONE UA (POCT) Negative 07/14/2022 SPECIFIC GRAVITY UA (POCT) 1.025 07/14/2022 HEMOGLOBIN/BLOOD UA (POCT) Trace-intact 07/14/2022 PH UA (POCT) 5.5 07/14/2022 PROTEIN UA (POCT) Negative 07/14/2022 UROBILINOGEN UA (POCT) 0.2 07/14/2022 NITRITE UA (POCT) Negative 07/14/2022 LEUKOCYTES UA (POCT) Negative 07/14/2022 COLOR UA (POCT) Light yellow 07/14/2022 CLARITY UA (POCT) Clear 07/14/2022 IMAGING: CT Scan: CT PELVIS W IVCON (Order [id number]) Patient Info Patient Name Sex Denton Wesley ([id number]) Male 1950 07/31/2022 10:01 AM - Radiology, [place] In Impression IMPRESSION: Mildly enlarged prostate. Colonic diverticulosis. No CT evidence of lymphadenopathy in the pelvis. I have independently reviewed films and my findings are the same. ALLERGIES: ALLERGIES Allergen Reactions Gemfibrozil Intolerance Rosuvastatin Intolerance Simvastatin Intolerance Imdur [Isosorbide] Other: See Comments Headaches, upset stomach, fatigue Penicillins Other: See Comments passed out and felt like I had the flu Pt states he's no longer allergic to this, he's taken tests w/out issues. Pravastatin Myalgia MEDICATIONS: tamsulosin (FLOMAX) 0.4 mgTake 1 capsule by breonna (more content not included)... [facility]11-02-2022 History of Present illness Narrative* Aris Tolbert DO - 08/05/2022 10:40 AM EDT Images from the original note were not included. [facility] LOCATION: [address] [place] [address] ESTABLISHED PATIENT PATIENT INFO: Denton Wesley 72 year old Chief Complaint: Prostate Cancer HPI S/P Prostate biopsy Doing well No post biopsy issues CT Pelvis negative. Bone scan pending. 1-Duration: 2021 2-Location: prostate 3-Severity: N/A 4-Quality: Not applicable 5-Context: N/A 6-Timing: N/A 7-Modifying factors: No treatment prior to referral 8-Associated signs & symptoms: no additional symptoms No question data found. PATHOLOGY: FINAL DIAGNOSIS A. Prostate, right base, needle core biopsy: - Benign prostatic tissue. B. Prostate, right mid, biopsy: - Benign prostatic tissue. C. Prostate, right apex, biopsy: - Benign prostatic tissue. D. Prostate, right lateral base, biopsy: - Benign prostatic tissue. E. Prostate, right lateral mid, biopsy: - Benign prostatic tissue. F. Prostate, right lateral apex, biopsy: - Benign prostatic tissue. G. Prostate, left base, biopsy: - Prostatic adenocarcinoma Eugene score 3+4 = 7 (grade group 2) involving 25% of 1 core (3 mm tumor length). 40% pattern 4. High-grade prostatic intraepithelial neoplasia. H. Prostate, left mid, biopsy: - Prostatic adenocarcinoma Erica score 3+4 = 7 (grade group 2) involving 35% of 1 core (4 mm tumor length). 45% pattern 4. I. Prostate, left apex, biopsy: - Prostatic adenocarcinoma Erica score 3+4 = 7 (grade group 2) involving 10% of 1 core (1 mm tumor length). 40% pattern 4. J. Prostate, left lateral base, biopsy: - Benign prostatic tissue. K. Prostate, left lateral mid, biopsy: - Prostatic adenocarcinoma Erica score 4+3 = 7 (grade group 3) involving 23% of 1 core (3 mm tumor length). 60% pattern 4. L. Prostate, left lateral apex, biopsy: - Prostatic adenocarcinoma Erica score 4+3 = 7 (grade group 3) involving 45% of 1 core (6 mm tumor length). 55% pattern 4. Small gland cribriform pattern 4 present. Prostate Cancer Biopsy Summary Number of cores examined: 12 Number of cores positive: 5 Highest Grade Group: 3 Highest % of core involvement: 45 % Cribriform pattern 4: Present Intraductal carcinoma: Absent Pumper Helper tumor block to use for additional studies: L LAB: WBC (k/uL) Date Value 06/10/2022 7.09 RBC (m/uL) Date Value 06/10/2022 4.94 Hemoglobin (g/dL) Date Value 06/10/2022 14.7 Hematocrit (%) Date Value 06/10/2022 44.1 MCV (fL) Date Value 06/10/2022 89.3 MCH (pg) Date Value 06/10/2022 29.8 MCHC (g/dL) Date Value 06/10/2022 33.3 RDW-CV (%) Date Value 06/10/2022 13.4 Platelet Count (k/uL) Date Value 06/10/2022 263 MPV (fL) Date Value 06/10/2022 8.9 (L) Neut% (%) Date Value 02/09/2022 62.4 Lymph% (%) Date Value 02/09/2022 23.1 Forest% (%) Date Value 02/09/2022 8.8 Eosin% (%) Date Value 10/23/2020 4.5 Baso% (%) Date Value 02/09/2022 1.0 Abs Neut (k/uL) Date Value 02/09/2022 5.37 Abs [place] (k/uL) Date Value 02/09/2022 0.76 Abs Eosin (k/uL) Date Value 02/09/2022 0.36 Abs Baso (k/uL) Date Value 02/09/2022 0.09 Creatinine Date Value Ref Range Status 06/10/2022 0.74 0.73 - 1.22 mg/dL Final 03/20/2022 1.05 0.73 - 1.22 mg/dL Final 03/10/2022 1.02 0.73 - 1.22 mg/dL Final 04/01/2021 0.78 0.73 - 1.22 mg/dL Final PSA (ng/mL) Date Value 03/12/2022 4.62 03/10/2022 4.86 PSA, Percent Free (%) Date Value 03/12/2022 14 URINE POC GLUCOSE UA (POCT) 500 07/14/2022 BILIRUBIN UA (POCT) Negative 07/14/2022 KETONE UA (POCT) Negative 07/14/2022 SPECIFIC GRAVITY UA (POCT) 1.025 07/14/2022 HEMOGLOBIN/BLOOD UA (POCT) Trace-intact 07/14/2022 PH UA (POCT) 5.5 07/14/2022 PROTEIN UA (POCT) Negative 07/14/2022 UROBILINOGEN UA (POCT) 0.2 07/14/2022 NITRITE UA (POCT) Negative 07/14/2022 LEUKOCYTES UA (POCT) Negative 07/14/2022 COLOR UA (POCT) Light yellow 07/14/2022 CLARITY UA (POCT) Clear 07/14/2022 IMAGING: CT Scan: CT PELVIS W IVCON (Order [id number]) Patient Info Patient Name Sex Denton Sherman ([id number]) Male 1950 07/31/2022 10:01 AM - Radiology, [place] In Impression IMPRESSION: Mildly enlarged prostate. Colonic diverticulosis. No CT evidence of lymphadenopathy in the pelvis. I have independently reviewed films and my findings are the same. ALLERGIES: ALLERGIES Allergen Reactions Gemfibrozil Intolerance Rosuvastatin Intolerance Simvastatin Intolerance Imdur [Isosorbide] Other: See Comments Headaches, upset stomach, fatigue Penicillins Other: See Comments passed out and felt like I had the flu Pt states he's no longer allergic to this, he's taken tests w/out issues. Pravastatin Myalgia MEDICATIONS: tamsulosin (FLOMAX) 0.4 mg^Take 1 capsule by mouth daily at bedtime.^Disp: 90 capsule^Rfl: 3 FARXIGA 10 mg tablet^Take 10 mg by mouth once daily.^Disp: ^Rfl: alirocumab (PRALUENT PEN) 75 mg/mL pen^Inject 1 mL subcutaneously every other week.^Disp: 2 mL^Rfl:11 losartan (COZAAR) 50 mg tablet^Take 1 tablet by mouth once daily.^Disp: 30 tablet^Rfl: 11 carvedilol (COREG) 25 mg tablet^Take 1 tablet by mouth twice daily with meals.^Disp: 60 tablet^Rfl:11 clopidogrel (PLAVIX) 75 mg tablet^Take 1 tablet by mouth once daily.^Disp: 90 tablet^Rfl: 3 ADVAIR DISKUS 500-50 mcg/dose dsdv^INHALE 1 (ONE) puff EVERY 12 HOURS^Disp: ^Rfl: aspirin, enteric coated (ASPIRIN, ENTERIC COATED) 81 mg EC tablet^aspirin ASPIRIN 81 MG TABS One tablet by mouth daily ASPIRIN [phone] Daya Deal RN 02-20-2016 [facility] ([id number])^Disp: ^Rfl: LANSOPRAZOLE 30 mg capsule^Take 30 mg by mouth once daily.^Disp: ^Rfl: Does the patient take any herbal medications?: No HISTORIES PAST MEDICAL HISTORY Diagnosis Date Abdominal pain, other specified site Asthma CAD (coronary artery disease) Cholelithiasis 09/25/13 Colitis Esophageal reflux Gastroesophageal reflux Hypertension Impotence of organic origin Impotence SUJEY (obstructive sleep apnea) RUQ abdominal pain 09/25/13 Smoking Status Reviewed: Yes REVIEW OF SYSTEMS GENERAL: No fever, chills, weight loss, or fatigue. HEAD & NECK: No blurred vision or Sjogren's syndrome CARDIOVASCULAR: NO CHEST PAIN, PALPITATIONS, ANKLE EDEMA RESPIRATORY: No chronic cough, wheezing, dyspnea, hemoptysis. MUSCULOSKELETAL: NO CHRONIC BACK PAIN, ARTHRITIS, CHRONIC NECK PAIN SKIN: NO VARICOSE VEINS, RASH, ABNORMAL ITCHING BLOOD/LYMPHATIC: No easy bleeding, easy bruising, transfusion Hx NEUROLOGICAL: NO HEADACHES, NUMBNESS, SEIZURES, STROKE PSYCHIATRIC: No depression or inordinate anxiety The remainder of the ROS was negative. PHYSICAL EXAMINATION Resp 20 Ht 182.9 cm (6') Wt 102.5 kg (226 lb) BMI 30.65 kg/m General appearance: Well appearing, alert, in no acute distress, and well- hydrated, well nourished Skin: Skin color, texture, turgor normal, no suspicious rashes or lesions Head: Normocephalic, no masses, lesions, tenderness or abnormalities Abdomen: Normal abdominal exam, Abdomen soft, non-tender. Bowel sounds normal. No masses, organomegaly Genitourinary: MALE EXAM: Exam NOT Indicated PVR: NA IMPRESSION/PLAN: Eugene 3+4=7 Prostate Cancer Grade Group 2 CT pelvis negative. Bone scan pending. Awaiting CABG with Darrian May consider active surveillance. Check MRI prostate and Decipher biopsy test. I spent 30 minutes in the visit, with more than 50% of the total [id number] time of the visit in counseling / coordination of care. Aris Tolbert DO MBA documented in this encounterUc Medical Center10-26-2022 Miscellaneous Notes* Telephone Encounter - Angelita HAYWARD - 07/29/2022 3:05 PM EDT Can you please sign the bone scan order that is pended in his chart? Thank you, Angelita HAYWARD documented in this encounterUc Medical Center10-26-2022 History of Present illness Narrative* Maddi Cerda, RT(R) - 07/29/2022 3:00 PM EDT Radiology Service Progress Note DATE OF SERVICE: July 29, 2022 TIME: 4:00 PM PATIENT IDENTITY VERIFICATION COMPLETED USING TWO (2) STANDARD IDENTIFIERS: Name and Date of confirmed by patient verbally. FALL SCREENING: Has the patient had 2 falls in the last year or 1 fall with injury or currently using an Ambulatory Assistive Device (Walker, Cane, Wheelchair, Crutches, etc.)? No PATIENT GENDER DATA: Male PATIENT RELEVANT IMPLANT DATA REVIEWED: Yes ALLERGIES: Reviewed and unchanged CONTRAST ALLERGY: NO. EXAM: CT -CONTRAST INDUCED NEPHROPATHY RISK FACTORS: Patient age > 60 years CREATININE: Creatinine Date Value Ref Range Status 06/10/2022 0.74 0.73 - 1.22 mg/dL Final 03/20/2022 1.05 0.73 - 1.22 mg/dL Final 03/10/2022 1.02 0.73 - 1.22 mg/dL Final Estimated Glomerular Filtration Rate Date Value Ref Range Status 06/10/2022 96 >=60 mL/min/1.73m Final Comment: Estimated Glomerular Filtration Rate (eGFR) is calculated using the 2020 CKD-EPI creatinine equation. This equation utilizes serum creatinine, sex, and age as parameters. The creatinine assay has traceable calibration to isotope dilution- mass spectrometry. Refer to KDIGO guidelines for clinical interpretation. In patients with unstable renal function, e.g. those with acute kidney injury, the eGFRmay not accurately reflect actual GFR. eGFR- Date Value Ref Range Status 04/01/2021 >60 Final P.O.C.T. RESULTS: POC done: Yes, See Lab Tab July 29, 2022 TREATMENT: N/A PERIPHERAL IV DATA: Ambulatory: A peripheral IV was started in the Left antecubital site with a Angio cath: 22 gauge. RADIOLOGY DEPARTMENT: CT; Exam(s) Completed: Pelvis SIGNATURE: RT Jenna(R) PATIENT NAME: Denton Wesley DATE: July 29, 2022 TIME: 4:00 PM documented in this encounterUc Medical Center10-26-2022 Miscellaneous Notes* Telephone Encounter - Essie Nathan PA-C - 07/29/2022 2:30 PM EDT Verbal order, no oral contrast was ordered. Essie Nathan PA-C * Telephone Encounter - Darcie Valle Cma - 07/29/2022 9:24 AM EDT Radiology called states they need oral /IV orders for ct today please put in chart Fanny [phone] documented in this encounterUc Medical Center10-24-2022 Miscellaneous Notes* Telephone Encounter - Aris Tolbert DO - 07/27/2022 1:13 PM EDT Erica 7 prostate cancer found. Intermediate risk He needs bone scan and CT pelvis - then appt with me in [place] documented in this encounterUc Medical Center10-11-2022 History of Present illness Narrative* Cali Costa PA-C - 07/14/2022 3:57 PM EDT Patient was seen for prostate biopsy today and was told to see me for Flomax for his Nocturia , Flomax Rx started, CAITLIN Chahal MT, PA-C Verified name and date of . CC Post Void Residual HPI: Denton Wesley is a 72 year old male. The patient is here now for an appointment with CAITLIN Chahal MT, PA-COV. Procedure: Explained procedure to patient and verbalizes understanding. Performed a PVR. Patient urinated and instructed to empty bladder as much as possible just prior to having PVR done using bladder ultrasound scanner. Results of scan: 106 mL The patient tolerated the procedure well. Plan: Appointment with Cali. documented in this encounterUc Medical Center10-11-2022 Procedure note* Aris Tolbert DO - 07/14/2022 10:05 AM EDTProcedure(s): PROSTATE BIOPSY Pre-Procedure Diagnose(s): Elevated prostate specific antigen (PSA) Post-Procedure Diagnose(s): Elevated prostate specific antigen (PSA) PHYSICIANS NOTE: TRANSRECTAL ULTRASOUND AND BIOPSY PROCEDURE: July 14, 2022 Sign In History and Physical Exam reviewed and is unchanged. Primary Diagnosis: Elevated PSA Informed Consent Discussed: Yes. Risks, benefits, alternatives and personnel discussed with patientwho consents to proceed. Sign in Communication: Completed Time Out: Team Confirms the Correct Patient, Correct Procedure; Transrectal Ultrasound and Biopsy, Correct Site and Site Marking (not applicable), Correct Position. Affirmation of Time Out: YES Sign Out: Sign Out Discussion: Completed Patient history and ROS confirmed unchanged from last office visit. Family history for prostate cancer is: negative Audible Time Out: Yes TRUS PROCEDURE WITH BIOPSY Number of Prior Biopsies: 0 Highest Number of Cores on a Prior Biopsy: Not applicable (this is first biopsy) The patient was placed in the lateral decubitus position. Digital rectal exam was normal. The ultrasound probe was placed into the rectum and the prostate visualized. Approximately five cc plain lidocaine was injected bilaterally into the perioprostatic nerves. The prostate was visualized in both planes and no hypoechoic lesion identified. The total prostate volume was 78.8 gm The patient underwent biopsy removing 12 total cores. Prostate biopsies taken from the site below using ultrasound guidance: Right Base: 2 Right Mid: 2 Right [place]: 2 Left Base: 2 Left Mid: 2 Left [place]: 2 PSA (ng/mL) Date Value 03/12/2022 4.62 03/10/2022 4.86 PSA, Percent Free (%) Date Value 03/12/2022 14 Complications: None Follow-up: Patient already has appointment scheduled ONE WEEK. Aris Tolbert DO documented in this encounter[facility]22 History of Present illness Narrative* Brian Colmenares MD - 07/13/2022 2:43 PM EDT PRIMARY CARE PHYSICIAN: Cali Cordero [address] [place] [address] Subjective Chief Complaint Patient presents with: Established Patient: Review CFT, CT chest, carotid US discuss CABG scheduling HISTORY OF PRESENT ILLNESS: Mr. Wesley is a 72 year old male presenting back to the office for evaluation for coronary artery disease and possible CABG. Mr. Wesley is a 72 year old male former remote smoker with a history of hypertension, hyperlipidemia, type 2 diabetes controlled with dietary modifications, asthma, and CADstatus post PCI in 2015. He presents to the office for evaluation of progressive significant coronary artery disease on heart catheterization and few months of exertional chest discomfort. Nuclear stress test in June 2021 which demonstrated no evidence of ischemia or infarction. Medical therapy did not relieve his symptoms, and he was taken for heart catheterization. He does have elevated PSA levels concerning for malignancy and he also has significant exposure to agent orange in the . Cardiac catheterization demonstrates nonsignificant disease in the RCA and patent stents in the PDAand PL branches with distal tapering of vessel not amenable for bypass. The circumflex branch is likely graftable vessel in its mid segment, however distally the vessel also tapers very significantlyand my concern is the outflow of the graft is not good enough to maintain graft patency. The LAD mae large vessel and has proximal stenoses just prior to the stent [facility]. Since [facility] visit, the patient has obtained a TTE, endocrinology consult, PFTs, CT of thechest, and carotid artery studies, all of which returned without any surprises as below. We presented the patient in our multidisciplinary heart team conference and the recommendation was for CABG over PCI. The patient also was found to have an elevated PSA, for which he is due to get a biopsy tomorrow on 07/14. He continues to have some exertional chest discomfort, however he feels this has improved slightly since our last office visit. Review of Systems Constitutional: Negative for chills, fever, malaise/fatigue and weight loss. HENT: Negative for sore throat. Eyes: Negative for blurred vision and double vision. Respiratory: Negative for cough, hemoptysis, shortness of breath, wheezing and stridor. Cardiovascular: Positive for chest pain. Negative for palpitations, leg swelling and PND. Gastrointestinal: Negative for abdominal pain, melena, nausea and vomiting. Genitourinary: Negative for flank pain and hematuria. Musculoskeletal: Negative for myalgias. Skin: Negative for rash. Neurological: Negative for dizziness, seizures, loss of consciousness and weakness. Endo/Heme/Allergies: Does not bruise/bleed easily. Objective PAST MEDICAL HISTORY Diagnosis Date Abdominal pain, other specified site Asthma CAD (coronary artery disease) Cholelithiasis 09/25/13 Colitis Esophageal reflux Gastroesophageal reflux Hypertension Impotence of organic origin Impotence SUJEY (obstructive sleep apnea) RUQ abdominal pain 09/25/13 PAST SURGICAL HISTORY Procedure Laterality Date COLONOSCOPY FLX DX W/COLLJ SPEC WHEN PFRMD Colonoscopy Dr. Ferreira ESOPHAGOGASTRODUODENOSCOPY TRANSORAL DIAGNOSTIC EGD Dr. Ferreira LAPAROSCOPY SURG CHOLECYSTECTOMY 09/25/13 PAST SURGICAL HISTORY OF I&D left hand PAST SURGICAL HISTORY OF Removal cyst on back STENT PLACEMENT 4 Stents FAMILY HISTORY Problem Relation Age of Onset Colon Cancer Mother Heart Mother Ovarian cancer Mother Prostate Cancer Brother Stroke Brother Emphysema Father Social History Tobacco Use Smoking status: Former Types: Cigarettes Quit date: 10/27/2011 Years since quittin.7 Smokeless tobacco: Never Vaping Use Vaping Use: Never used Substance Use Topics Alcohol use: Yes Comment: 1 beer in the evening Drug use: No ALLERGIES Allergen Reactions Gemfibrozil Intolerance Rosuvastatin Intolerance Simvastatin Intolerance Imdur [Isosorbide] Other: See Comments Headaches, upset stomach, fatigue Penicillins Other: See Comments passed out and felt like I had the flu Pt states he's no longer allergic to this, he's taken tests w/out issues. Pravastatin Myalgia Physical Examination Vitals:BP 156/90 Pulse 64 Ht 6' 0[Patient reports.[ (1.83m) Wt 227 lb 6.4 oz (103.1kg) SpO2 95% BMI 30.83 kg/(m^2). BP w/Orthostatic Vitals Date and Time Orthostatic BP Orthostatic Pulse BP Pulse BP Position BP Site BP Cuff Size 07/13/22 1047 -- -- 156/90 64 Sitting Left Arm Large Adult Last 2 Encounter Wt Readings: Date: Wt: 07/13/2022 227 lb 6.4 oz (103.1 kg) 06/29/2022 229 lb 3.2 oz (104 kg) Physical Exam Constitutional: Appearance: He is obese. HENT: Head: Normocephalic and atraumatic. Eyes: Pupils: Pupils are equal, round, and reactive to light. Neck: Thyroid: No thyromegaly. Trachea: No tracheal deviation. Cardiovascular: Rate and Rhythm: Normal rate and regular rhythm. Heart sounds: Normal heart sounds. No murmur heard. Pulmonary: Effort: Pulmonary effort is normal. No accessory muscle usage or respiratory distress. Breath sounds: Normal breath sounds. Abdominal: General: There is no distension. Palpations: Abdomen is soft. Tenderness: There is no abdominal tenderness. Musculoskeletal: General: No deformity. Normal range of motion. Cervical back: Normal range of motion and neck supple. Right lower leg: No edema. Left lower leg: No edema. Skin: General: Skin is warm and dry. Neurological: Mental Status: He is alert and oriented to person, place, and time. Cranial Nerves: No cranial nerve deficit. Medications Current Outpatient Medications Medication Sig Dispense Refill FARXIGA 10 mg tablet Take 10 mg by mouth once daily. alirocumab (PRALUENT PEN) 75 mg/mL pen Inject 1 mL subcutaneously every other week. 2 mL 11 losartan (COZAAR) 50 mg tablet Take 1 tablet by mouth once daily. 30 tablet 11 carvedilol (COREG) 25 mg tablet Take 1 tablet by mouth twice daily with meals. 60 tablet 11 clopidogrel (PLAVIX) 75 mg tablet Take 1 tablet by mouth once daily. 90 tablet 3 ADVAIR DISKUS 500-50 mcg/dose dsdv INHALE 1 (ONE) puff EVERY 12 HOURS aspirin, enteric coated (ASPIRIN, ENTERIC COATED) 81 mg EC tablet aspirin ASPIRIN 81 MG TABS One tablet by mouth daily ASPIRIN [id number] Daya Deal RN 02-20-2016 [facility] ([id number]) LANSOPRAZOLE 30 mg capsule Current Facility-Administered Medications Medication Dose Route Frequency Provider Last Rate Last Admin perflutren lipid microspheres 1.3 mL in NaCl (PF) 0.9% 10 mL injection (DEFINITY) INTRAVENOUS DIRECTED PRN Shanelle Steve APRN.MANNY sodium chloride 0.9 % (flush) 10 mL (BD POSIFLUSH) 10 mL INTRAVENOUS DIRECTED PRN Shanelle Steve APRN.CNP perflutren lipid microspheres 1.3 mL in NaCl (PF) 0.9% 10 mL injection (DEFINITY) INTRAVENOUS DIRECTED PRN Yue Martinez APRN.CNP sodium chloride 0.9 % (flush) 10 mL (BD POSIFLUSH) 10 mL INTRAVENOUS DIRECTED PRN Yue Martinez APRN.MANNY Cardiac catheterization performed 06/10/2022: Coronary Angiography: Left Main: Moderate caliber vessel with mild diffuse disease Left Anterior Descending: Large caliber vessel. The ostium to proximal vessel has severe diffuse disease. The latter was confirmed with intravascular ultrasound. The mean luminal area of the ostial LAD is 2.75 mm with 80 to 85% stenosis. The proximal LAD has an eccentric 70% stenosis which is moderately calcified. There are patent stents from the proximal to mid LAD. There is mild diffuse in-stent restenosis. The distal and apical LAD has mild diffuse disease. Circumflex: Small to moderate caliber nondominant vessel. The vessel bifurcates into 2 obtuse marginal branches. Branches are small in caliber. The upper obtuse marginal branch has a focal 70% stenosis. However, the branch may be too small for consideration of coronary bypass grafting. The lower division has mild diffuse disease and is small in caliber Right Coronary Artery: Moderate to large caliber dominant vessel. The proximal vessel has mild to moderate diffuse disease less than 50% luminal narrowing. Multiple areas of eccentric stenosis. The PDA branch is smaller in caliber with a proximal patent stent. The distal PDA has severe diffuse disease. There is a first posterior lateral branch which has a proximal patent stent. The distal vessel is very small in caliber with moderate to severe diffuse disease. Collaterals: None Complications: None TTE is still pending ISOPSA level at 7.8 on 03/20/2022, which a level over 6.0 has a positive predictive value of 48% forhigh-grade cancer detected on biopsy according to the lab result. TTE on 06/18/2022: CONCLUSIONS: - Technically difficult exam due to body habitus. - Exam indication: CAD - The left ventricle is small. Left ventricular systolic function is normal. EF = 64 5% (2D biplane) Grade I left ventricular diastolic dysfunction. - The right ventricle is normal in size. Right ventricular systolic function is normal. - There is no evidence of significant valvular stenosis or insufficiency on this study. - The patient has not had a prior CC echocardiographic exam for comparison. Bilateral carotid artery studies on 07/02/2022: IMPRESSION RIGHT SIDE Internal carotid artery: 20-39% stenosis. Vertebral artery: Patent and antegrade flow noted. LEFT SIDE Internal carotid artery: 20-39% stenosis. Vertebral artery: Patent and antegrade flow noted. Technologist: Darby Strickland RVT, [facility] Ordering physician: GET FULTON Interpreting physician: GALINDO White DO of the chest without IV contrast on 06/29/2022: IMPRESSION: No CT evidence of acute abnormality. Incidental Finding: Follow-up Acuity: Incidental Findings: Solid: 6-8 mm (multiple nodules) Routing Code: RI_1 Recommendation: CT Chest WO IVCON Time Frame: 3-6 months Comments: If stable on follow-up imaging, a repeat chest CT exam in 12 months (15 - 18 months from the initial exam) is recommended. PFTs performed on 06/29/2022 demonstrated an FEV1 of 120% predicted and DLCO of 99% predicted. Assessment and Plan: Mr. Wesley is a 72 year old male presenting back to the office for evaluation for coronary artery disease and possible CABG. Mr. Wesley is a 72 year old male former remote smoker with a history of hypertension, hyperlipidemia, type 2 diabetes controlled with dietary modifications, asthma, and CADstatus post PCI in 2015. He presents to the office for evaluation of progressive significant coronary artery disease on heart catheterization and few months of exertional chest discomfort. Nuclear stress test in June 2021 which demonstrated no evidence of ischemia or infarction. Medical therapy did not relieve his symptoms, and he was taken for heart catheterization. He does have elevated PSA levels concerning for malignancy and he also has significant exposure to agent orange in the . Cardiac catheterization demonstrates nonsignificant disease in the RCA and patent stents in the PDAand PL branches with distal tapering of vessel not amenable for bypass. The circumflex branch is likely graftable vessel in its mid segment, though it does have poor outflow distally. The LAD is a large vessel and has proximal stenoses just prior to the stent as well as at its takeoff from the leftmain. Since his last office visit, the patient has obtained a TTE, endocrinology consult, PFTs, CT of thechest, and carotid artery studies, all of which returned without any surprises as below. We presented the patient in our multidisciplinary heart team conference and the recommendation was for CABG over PCI. The patient also was found to have an elevated PSA, for which he is due to get a biopsy tomorrow on 07/14. He continues to have some exertional chest discomfort, however he feels this has improved slightly since our last office visit. I do feel he will be an adequate surgical candidate with low risk for surgery based on the above studies. Plan will be for use of left internal mammary artery and saphenous vein for additional conduit for possible circumflex artery target. Once the patient's prostate biopsy results, if normal, we will schedule patient for surgery in the near future with a PAT appointment 1 week prior to surgery. We will need to hold Plavix 1 week priorto surgery. Patient is concerned about who will take care of his when he is in hospital, but any arrangements would likely have to be undertaken by the patient's 's PCP as they are familiar with her. -Await prostate biopsy -If normal, scheduled for surgery in the near future -Hold Plavix 1 week prior to surgery - PAT appointment 1 week prior to surgery Brian Colmenares MD Cardiothoracic Surgery 07/13/22 documented in this encounterU[facility]09-20-2022 Miscellaneous Notes* Telephone Encounter - Brenton Bagley - 06/23/2022 11:01 AM EDT Left detailed message regarding future appts. 06/29/22 2:15pm PFT, 3:20pm CT Chest at [facility]. 07/02/22 10am Carotid US at [facility] 07/13/[address] Colmenares documented in this encounterUc [facility] Center09-20-2022 Miscellaneous Notes* Addendum Note - Get Fulton APRN.CNP - 06/23/2022 10:42 AM EDTAddended by: GET FULTON on: 06/23/2022 10:42 AM Modules accepted: Orders * Addendum Note - Get Fulton APRN.CNP - 06/23/2022 10:41 AM EDTAddended by: GET FULTON on: 06/23/2022 10:41 AM Modules accepted: Orders documented in this encounterUc [facility] Center09-20-2022 History of Present illness Narrative* Get Fulton APRN.CNP - 06/23/2022 9:04 AM EDT MULTI DISCIPLINARY HIGH RISK CARDIAC / AVR TEAM Members present: Dr. Londono, Dr. Herrera, Dr. Mckeon, Dr. Colmenares, Dr. Jaquez, Dr. Landa, Brett BOLIVAR, MANNY, Eriberto Kirkland APRN, MANNY, Jay Rodgers PA, Jane Steve APRN, MANNY, Dwight Chatman CNP, LORRAINE Goodwin, Jane Adair APRN. Presenting Physician: Dr. Colmenares PATIENT NAME: Denton Wesley DATE: June 23, 2022 Outcome: Denton Wesley 's history and imaging were reviewed by the physicians in attendance. The collaborative recommendation would be proceed with CABG after pre-op work up: PFT, CT chest andCarotid US. These recommendations will be communicated to the patient. Get Fulton APRN.CNP 06/23/22 documented in this encounterUc [facility] Center09-15-2022 Miscellaneous Notes* Telephone Encounter - Brenton Bagley - 06/18/2022 2:58 PM EDT Phoned pt regarding future appts. 06/23/22 9am Cali PETERS (Urology) for elevated PSA Dr. Rodgers (Transmission Assembler) ph. [phone] fax [phone]. Labs and 06/17/22 office encounter faxed to her office. They will contact pt directly to schedule office visit for DM II documented in this encounterUc Medical Center09-15-2022 Miscellaneous Notes* Telephone Encounter - Shanelle Steve APRN.CNP - 06/18/2022 11:28 AM EDT Pt seen by Dr. Colmenares on 06/17/22 for CABG. We have plans to review at heart team meeting on 06/23;further recs to follow. Upon Dr. Colmenares's further review of pt- PSA and Iso PSA elevated, and A1C 6.9. recs for referralsto Uro and Endo for further eval. Orders placed and left a VM updating of the above. Shanelle Steve APRN.CNP June 18, 2022 11:37 AM documented in this encounterUc Medical Center09-14-2022 Nurse Note* Romana Ramos LPN - 06/17/2022 1:53 PM EDT CARDIAC REHAB 5 METER WALK TEST SERVICE DATE: 06/17/2022 SERVICE TIME: ASSESSMENT: SIGNATURE: Romana Ramos LPN PATIENT NAME: Denton Wesley DATE: June 17, 2022 TIME: 1:53 PM PAGER/CONTACT #: [id number]:51sec 4:60sec 4:46sec Romana Ramos LPN June 17, 2022 1:54 PM documented in this encounterUc [facility] Center09-14-2022 History of Present illness Narrative* Brian Colmenares MD - 06/17/2022 11:06 AM EDT PRIMARY CARE PHYSICIAN: Cali Cordero [address] [place] [address] Subjective Chief Complaint Patient presents with: New Patient Consult: New Patient CABG Evaluation HISTORY OF PRESENT ILLNESS: Mr. Wesley is a 72 year old male former remote smoker with a history of hypertension, hyperlipidemia, type 2 diabetes controlled with dietary modifications, asthma, and CAD status post PCI in 2015. He presents to the office for evaluation of progressive significant coronary artery disease on heartcatheterization and few months of exertional chest discomfort. Nuclear stress test in June 2021 which demonstrated no evidence of ischemia or infarction. Medical therapy did not relieve his symptoms, and he was taken for heart catheterization. The patient denies nausea, vomiting, fevers, chills, shortness of breath, lightheadedness, dizziness, orthopnea, PND, headaches, back pain, easily bleeding or bruising, recent cancer diagnoses, or recent hospitalizations for any reason other than stated above. This patient states he also has had some high PSAs in the past but has not had this worked up as ofyet. Review of Systems Constitutional: Negative for chills, fever, malaise/fatigue and weight loss. HENT: Negative for sore throat. Eyes: Negative for blurred vision and double vision. Respiratory: Negative for cough, hemoptysis, shortness of breath, wheezing and stridor. Cardiovascular: Positive for chest pain. Negative for palpitations, orthopnea, leg swelling and PND. Gastrointestinal: Negative for abdominal pain, melena, nausea and vomiting. Genitourinary: Negative for flank pain and hematuria. Musculoskeletal: Negative for myalgias. Skin: Negative for rash. Neurological: Negative for dizziness, seizures, loss of consciousness and weakness. Endo/Heme/Allergies: Does not bruise/bleed easily. Objective PAST MEDICAL HISTORY Diagnosis Date Abdominal pain, other specified site Asthma CAD (coronary artery disease) Cholelithiasis 09/25/13 Colitis Esophageal reflux Gastroesophageal reflux Hypertension Impotence of organic origin Impotence SUJEY (obstructive sleep apnea) RUQ abdominal pain 09/25/13 PAST SURGICAL HISTORY Procedure Laterality Date COLONOSCOPY FLX DX W/COLLJ SPEC WHEN PFRMD Colonoscopy Dr. Ferreira ESOPHAGOGASTRODUODENOSCOPY TRANSORAL DIAGNOSTIC EGD Dr. Ferreira LAPAROSCOPY SURG CHOLECYSTECTOMY 09/25/13 PAST SURGICAL HISTORY OF I&D left hand PAST SURGICAL HISTORY OF Removal cyst on back STENT PLACEMENT 4 Stents FAMILY HISTORY Problem Relation Age of Onset Colon Cancer Mother Heart Mother Ovarian cancer Mother Prostate Cancer Brother Stroke Brother Emphysema Father Social History Tobacco Use Smoking status: Former Types: Cigarettes Quit date: 10/27/2011 Years since quittin.6 Smokeless tobacco: Never Vaping Use Vaping Use: Never used Substance Use Topics Alcohol use: Yes Comment: 1 beer in the evening Drug use: No ALLERGIES Allergen Reactions Gemfibrozil Intolerance Rosuvastatin Intolerance Simvastatin Intolerance Imdur [Isosorbide] Other: See Comments Headaches, upset stomach, fatigue Penicillins Other: See Comments passed out and felt like I had the flu Pt states he's no longer allergic to this, he's taken tests w/out issues. Pravastatin Myalgia Physical Examination Vitals:BP 150/100 Pulse 69 Ht 6' 0[Patient reported.[ (1.83m) Wt 231 lb 6.4 oz (105.0kg) SpO2 98% BMI 31.38 kg/(m^2). BP w/Orthostatic Vitals Date and Time Orthostatic BP Orthostatic Pulse BP Pulse BP Position BP Site BP Cuff Size 06/17/22 1343 -- -- 150/100 69 Sitting Left Arm Large Adult Last 2 Encounter Wt Readings: Date: Wt: 06/17/2022 231 lb 6.4 oz (105 kg) 03/23/2022 232 lb 9.6 oz (105.5 kg) Physical Exam Constitutional: Appearance: He is obese. HENT: Head: Normocephalic and atraumatic. Eyes: Pupils: Pupils are equal, round, and reactive to light. Neck: Thyroid: No thyromegaly. Trachea: No tracheal deviation. Cardiovascular: Rate and Rhythm: Normal rate and regular rhythm. Heart sounds: Normal heart sounds. No murmur heard. Pulmonary: Effort: Pulmonary effort is normal. No accessory muscle usage or respiratory distress. Breath sounds: Normal breath sounds. Abdominal: General: There is no distension. Palpations: Abdomen is soft. Tenderness: There is no abdominal tenderness. Musculoskeletal: General: No deformity. Normal range of motion. Cervical back: Normal range of motion and neck supple. Right lower leg: No edema. Left lower leg: No edema. Skin: General: Skin is warm and dry. Neurological: Mental Status: He is alert and oriented to person, place, and time. Cranial Nerves: No cranial nerve deficit. Medications Current Outpatient Medications Medication Sig Dispense Refill losartan (COZAAR) 50 mg tablet Take 1 tablet by mouth once daily. 30 tablet 11 carvedilol (COREG) 25 mg tablet Take 1 tablet by mouth twice daily with meals. 60 tablet 11 clopidogrel (PLAVIX) 75 mg tablet Take 1 tablet by mouth once daily. 90 tablet 3 ADVAIR DISKUS 500-50 mcg/dose dsdv INHALE 1 (ONE) puff EVERY 12 HOURS aspirin, enteric coated (ASPIRIN, ENTERIC COATED) 81 mg EC tablet aspirin ASPIRIN 81 MG TABS One tablet by mouth daily ASPIRIN [id number] Daya Deal RN 02-20-2016 [facility] ([id number]) LANSOPRAZOLE 30 mg capsule alirocumab (PRALUENT PEN) 75 mg/mL pen Inject 1 mL subcutaneously every other week. 2 mL 11 Current Facility-Administered Medications Medication Dose Route Frequency Provider Last Rate Last Admin perflutren lipid microspheres 1.3 mL in NaCl (PF) 0.9% 10 mL injection (DEFINITY) INTRAVENOUS DIRECTED PRN Shanelle Steve, OIL TREATER.TECHNICAL SUPPORT CONSULTANT sodium chloride 0.9 % (flush) 10 mL (BD POSIFLUSH) 10 mL INTRAVENOUS DIRECTED PRN Shanelle Steve, OIL TREATER.TECHNICAL SUPPORT CONSULTANT perflutren lipid microspheres 1.3 mL in NaCl (PF) 0.9% 10 mL injection (DEFINITY) INTRAVENOUS DIRECTED PRN Yue Martinez, OIL TREATER.TECHNICAL SUPPORT CONSULTANT sodium chloride 0.9 % (flush) 10 mL (BD POSIFLUSH) 10 mL INTRAVENOUS DIRECTED PRN Yue Martinez, OIL TREATER.TECHNICAL SUPPORT CONSULTANT Cardiac catheterization performed 06/10/2022: Coronary Angiography: Left Main: Moderate caliber vessel with mild diffuse disease Left Anterior Descending: Large caliber vessel. The ostium to proximal vessel has severe diffuse disease. The latter was confirmed with intravascular ultrasound. The mean luminal area of the ostial LAD is 2.75 mm with 80 to 85% stenosis. The proximal LAD has an eccentric 70% stenosis which is moderately calcified. There are patent stents from the proximal to mid LAD. There is mild diffuse in-stent restenosis. The distal and apical LAD has mild diffuse disease. Circumflex: Small to moderate caliber nondominant vessel. The vessel bifurcates into 2 obtuse marginal branches. Branches are small in caliber. The upper obtuse marginal branch has a focal 70% stenosis. However, the branch may be too small for consideration of coronary bypass grafting. The lower division has mild diffuse disease and is small in caliber Right Coronary Artery: Moderate to large caliber dominant vessel. The proximal vessel has mild to moderate diffuse disease less than 50% luminal narrowing. Multiple areas of eccentric stenosis. The PDA branch is smaller in caliber with a proximal patent stent. The distal PDA has severe diffuse disease. There is a first posterior lateral branch which has a proximal patent stent. The distal vessel is very small in caliber with moderate to severe diffuse disease. Collaterals: None Complications: None TTE is still pending ISOPSA level at 7.8 on 03/20/2022, which a level over 6.0 has a positive predictive value of 48% forhigh-grade cancer detected on biopsy according to the lab result. Assessment and Plan: Mr. Wesley is a 72 year old male former remote smoker with a history of hypertension, hyperlipidemia, type 2 diabetes controlled with dietary modifications, asthma, and CAD status post PCI in 2015. He presents to the office for evaluation of progressive significant coronary artery disease on heartcatheterization and few months of exertional chest discomfort. Nuclear stress test in June 2021 which demonstrated no evidence of ischemia or infarction. Medical therapy did not relieve his symptoms, and he was taken for heart catheterization. He does have elevated PSA levels concerning for mal ignancy and he also has significant exposure to agent orange in the . Cardiac catheterization demonstrates nonsignificant disease in the RCA and patent stents in the PDAand PL branches with distal tapering of vessel not amenable for bypass. The circumflex branch is likely graftable vessel in its mid segment, however distally the vessel also tapers very significantlyand my concern is the outflow of the graft is not good enough to maintain graft patency. The LAD mae large vessel and has proximal stenoses just prior to the stent as well as at its takeoff from theleft main. Prior to consideration for bypass grafting, I recommendations are as follows: -Obtain TTE -We will present the patient in our multidisciplinary heart team conference to review heart catheterization and possibilities for PCI versus CABG -Endocrinology consult -Work-up for elevated PSA If recommendation is for CABG we will proceed with the following: -PFTs -CT of the chest -Carotid artery studies We will then bring him back to the office to discuss these results and further risk stratify him for coronary artery bypass grafting. Brian Colmenares MD Cardiothoracic Surgery 06/17/22 documented in this encounter[facility]22 Miscellaneous Notes* Telephone Encounter - Fatmata Kidd - 06/16/2022 3:47 PM EDT Left VM to re-schedule the 06/16 @ 8am appointment to later in the afternoon (2pm). Dr. Poe will not be in office. documented in this encounterUc [facility] Center09-07-2022 Nurse Note* Corry Ramos RN - 06/10/2022 1:46 PM EDT 1346 patient D/C for home. Waiting in POD for daughter at this time. An appointment was provided for patient for Surgery * Corry Ramos RN - 06/10/2022 1:16 PM EDT 1300 TR band removed 2+ radial pulse, hand warm + cap refill, upper arm soft. Band aid applied to site. Home instructions reinforced. 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 Patient waiting quietly offer to wait in the room for comfort. * Corry Ramos RN - 06/10/2022 10:53 AM EDT 1053 patient return to POD. Right wrist TR band on 1+ radial pulse, hand warm + cap refill, upper arm soft. VSS no complaints of pain. Home instructions initiated. Continue to monitor documented in this encounterUc [facility] Center09-07-2022 Miscellaneous Notes* Brief Op Note - Holli Jaquez MD - 06/10/2022 10:47 AM EDT CARDIAC CATHETERIZATION REPORT PATIENT NAME: Denton Wesley SERVICE DATE: 06/10/2022 SERVICE TIME: Accounts Receivable Bookkeeper: Juan A Pacheco DO Attending: Holli Jaquez MD RECOMMENDATIONS: Referral to cardiothoracic surgery for consideration of coronary bypass grafting Continue medical therapy and risk factor modification Pre-Procedure Diagnosis: 72-year-old gentleman with known coronary artery disease, diabetes, hypertension, dyslipidemia who is referred for coronary angiography due to complaints of worsening chest pain on exertion concerning for class III angina. Post- Procedure Diagnosis: Dominant right coronary artery with moderate to severe diffuse disease in the distal segments and patent stents in the proximal PDA and posterior ventricular branch, normalleft main coronary artery, moderate to severe diffuse disease in the left circumflex extending intoa bifurcating obtuse marginal system. Moderate caliber LAD. The ostium of the vessel has a severe 85% stenosis with a mean luminal area of 2.75 mm on IVUS evaluation. Proximal LAD eccentric 70% stenosis. Patent stents from the proximal to mid LAD with mild diffuse in-stent restenosis. Procedure: Left Heart Catheterization, intravascular ultrasound examination Access: Right Radial Artery Under Local anesthesia the Right Radial Artery was entered by Modified Seldinger's technique using a micro puncture needle. A 6F sheath was introduced into the Right Radial Artery . Selective injections were made in the left and right coronary arteries in various right and left anterior oblique views. An LV pressure was performed in 30 degree MARTIN. Patient was given 10,000 units of heparin in total. An EBU 3.5 guiding catheter was seated into the left main. A wire was passed in the distal LAD. Intravascular ultrasound images were obtained of the left main and proximal LAD. The sheath was removed and hemostatsis was established using TR band closure device. There was no bleeding at the end ofthe procedure. The pt was returned to the recovery room in a stable condition. FINDINGS: Hemodynamics: LVEDP: 18 mmHg LV - AORTA: No gradient. Coronary Angiography: Left Main: Moderate caliber vessel with mild diffuse disease Left Anterior Descending: Large caliber vessel. The ostium to proximal vessel has severe diffuse disease. The latter was confirmed with intravascular ultrasound. The mean luminal area of the ostial LAD is 2.75 mm with 80 to 85% stenosis. The proximal LAD has an eccentric 70% stenosis which is moderately calcified. There are patent stents from the proximal to mid LAD. There is mild diffuse in-stent restenosis. The distal and apical LAD has mild diffuse disease. Circumflex: Small to moderate caliber nondominant vessel. The vessel bifurcates into 2 obtuse marginal branches. Branches are small in caliber. The upper obtuse marginal branch has a focal 70% stenosis. However, the branch may be too small for consideration of coronary bypass grafting. The lower division has mild diffuse disease and is small in caliber Right Coronary Artery: Moderate to large caliber dominant vessel. The proximal vessel has mild to moderate diffuse disease less than 50% luminal narrowing. Multiple areas of eccentric stenosis. The PDA branch is smaller in caliber with a proximal patent stent. The distal PDA has severe diffuse disease. There is a first posterior lateral branch which has a proximal patent stent. The distal vessel is very small in caliber with moderate to severe diffuse disease. Collaterals: None Complications: None SIGNATURE: Holli Jaquez MD DATE: June 10, 2022 TIME: 10:47 AM documented in this encounterUc [facility] Center09-07-2022 History and physical note * Holli Jaquez MD - 06/10/2022 9:45 AM EDT UPDATED H&P PRE-CARDIAC CATHETERIZATION SERVICE DATE: 06/10/2022 SERVICE TIME: 9:46 AM PHYSICAL EXAM MUST BE COMPLETED ON ADMISSION The History and Physical (completed in the past 30 days) has been reviewed and the patient has beenexamined. The contents accurately reflect the patient's condition with the following additions or revisions since the H&P was completed. Examination indicates no changes. Planned Procedure: Left Heart Cath + Possible PCI Primary Indication for Procedure: Angina, Stable High Risk Features: History of Prior CABG: No History of Prior PCI: Yes: > 12 months Cardiomyopathy: Yes Anti-ischemic Meds in Past 2 Weeks: Beta blockers Ejection Fraction: 77% from Previous Stress Test Risk Appropriateness: Angina Class in Past 2 Weeks: Class III - Marked limitation of ordinary physical activity Stress Test Results: Low risk Cardiogenic Shock: No CHF in Past 2 Weeks: No HISTORY OF BLEEDING: No History of present illness 72-year-old gentleman with known coronary artery disease prior coronary intervention, hypertension,hyperlipidemia, and diabetes ([id number]) who is referred for cardiac catheterization due to symptoms of chest pain and pressure on exertion consistent with class III angina. He did undergone a stress test earlier this year which was unremarkable. He has a history of prior interventions and had similar symptoms prior to his procedures in the past. He denies resting symptoms. He had improvement in symptoms with medication adjustment. He was placed on Imdur. Unfortunately he did not tolerate the Imdur. Coreg was increased with some mild improvement. However, over the last few weeks he has had escalation in symptoms. Physical exam Vital signs reviewed General: Patient is sitting appears comfortable no apparent distress. He is alert and oriented x3 HEENT carotid upstrokes are brisk bilateral without bruits no JVD appreciated. Pulmonary: Lungs are clear no rales, wheezes, rhonchi Cardiovascular: Normal S1, S2 with regular rate and rhythm. No murmurs, rubs, or gallops Extremities: Warm, well-perfused, no lower extremity edema. Assessment and plan 72-year-old gentleman with known coronary artery disease prior coronary intervention, diabetes ([id number]), hypertension, dyslipidemia who is referred for coronary angiography due to complaints of chest pain on exertion consistent with class III angina. Patient has failed maximal medical therapy which is included initiation of long-acting nitrates and beta-ari therapy. Despite maximal therapy continues to have escalation in symptoms. He is referred for cardiac catheterization. The risk, benefits, and alternatives of procedure have been discussed in detail with the patient. Informed consent has been obtained. SIGNATURE: Holli Jaquez MD PATIENT NAME: Denton Wesley DATE: June 10, 2022 TIME: 9:45 AM documented in this encounterUc Medical Center08-30-2022 Miscellaneous Notes* Telephone Encounter - Olu Harris RN - 06/02/2022 1:55 PM EDT Called PT and put in his my chart CARDIAC CATHETERIZATION INSTRUCTIONS Your doctor has recommended that you have a heart catheterization performed at [facility] with Dr. Jaquez on 06/10/22 A nurse from the [facility] will call you approximately one day prior to your procedure to answer anyquestions and review these instructions. If we are unable to reach you, please return our phone call. PRE-PROCEDURE Do not eat or drink anything after midnight the night before your scheduled procedure. Do not take your water pill or a medication to remove extra fluid the morning your procedure. Take all of your blood pressure and cardiac medications the morning of your procedure with a small sip of water. If you are taking aspirin or Plavix, please continue to take. If you are taking Coumadin - stop it 5 days prior to your procedure. Your INR will be checked the morning of your procedure. If you are taking Eliquis or Xarelto - stop it 3 days prior to your procedure. If you are taking Metformin - do not take it the morning of your procedure and for 48 hours after your procedure. ARRIVAL You will receive a phone call the day before your procedure to confirm your arrival time. You will be instructed not to drive for 24 hours after your procedure and will need someone to drive you home. POST-PROCEDURE Resume all anticoagulants the day after your procedure unless instructed otherwise. Resume metformin 48 hours after your procedure. Do not drive or make any important decisions for 24 hours due to the anesthetic. Rest with bathroom privileges the day of your procedure. Only light duties and easy activities for the next 5 days if procedure was done from the groin and 2 days if done from the wrist. Ask for help with chores and errands while you recover. Drink 6-8 glasses of water a day unless you are on a fluid restriction. This helps flush the contrast dye out of your body. Take your temperature for 7 days. If you feel cold and clammy or start sweating, take your temperature right away and call your healthcare team. Check your procedure site frequently on the day of the procedure and if any bleeding or enlargementof the site, apply pressure immediately and call your doctor. Check every day for signs of infection. These include redness, swelling, and drainage. It's normal to have a small bruise or bump where the catheter was inserted. Go to the emergency department if you have uncontrolled bleeding from the artery site. This is especially true if you take medicines that make it hard for your blood to clot.Examples are aspirin, clopidogrel, Brillinta, Effient, warfarin, Eliquis or Xarelto. Don't swim or take baths until your healthcare team says it's OK. You can shower the day after the procedure. Keep the site clean and dry. This keeps the incision from getting wet and infected until the skin and artery can heal. Make a follow-up appointment as advised by your physician. Don't wait for a follow-up appointment if your medicines aren't working or you are having heart-related symptoms. WHEN TO SEEK MEDICAL CARE Call your healthcare provider right away if you have any of the following: Constant or increasing pain or numbness in your leg if procedure done from your groin. Fever of 100.4 F ( 38.0 C) or higher, or as directed by your healthcare provider. Symptoms of infection. These include redness, swelling, drainage or warmth at the incision site. Shortness of breath. A leg that feels cold or appears blue. Bleeding, bruising, or a lot of swelling where the catheter was inserted. Black or tarry stools. PT states he understands * Telephone Encounter - Aysha Fall [facility] [place] - 06/02/2022 10:05 AM EDT Please schedule LHC with Dr. Jaquez on 06/10/2022. Please instruct patient on which medications to stop and keep taking. Two visitors are allowed to come in with patient. I will call the patient the day before to go over instructions. * Telephone Encounter - Aysha Fall [facility] [place] - 03/23/2022 12:22 PM EDT Please Schedule LHC on 04/03/[address] Leger. Instruct patient on what medications to take or stop. 2 visitors can come in with patient. I will call day before to go over instructions. Marysol Olmstead documented in this encounterUc [facility] Center07-15-2022 Miscellaneous Notes* Telephone Encounter - Olu Harris RN - 04/17/2022 3:41 PM EDT Called PT about LHC with on 05/11/2022. Please instruct patient on which medications to stopand keep taking. Two visitors are allowed to come in with patient. I will call the patient the day before to go over instructions. PT states he understands documented in this encounterUc Medical Center07-06-2022 Miscellaneous Notes* Telephone Encounter - Yue Power RN - 04/08/2022 3:28 PM EDT VM and MyChart messages left for patient. * Telephone Encounter - Aysha Fall [facility] [place] - 04/08/2022 9:54 AM EDT Reschedule [facility] on 04/24/[address] Leger. Instruct patient on what medications to take or stop. Two visitors and I will call day before. Thanks Aysha * Telephone Encounter - Sarika Kirk - 04/03/2022 12:20 PM EDT Thank you very much! I believe they will contact him to reschedule unless he already did * Telephone Encounter - Yue Martinez APRN.CNP - 04/01/2022 9:02 PM EDT I'll forward this to Aysha, as she usually helps with scheduling. Let's see what other day he's free that we can get him in. Thanks! Yue * Telephone Encounter - Sarika Kirk - 04/01/2022 1:54 PM EDT Pt can no longer make it to his procedure on Tuesday 04/03 but I have no way of canceling this or rescheduling it. He said Yue Martinez referred him to this appointment so Im looking for some guidance on who to contact to cancel this. I called the office number listed under [employer] [facility] but he was not in their directory. Please advise documented in this encounterUc Medical Center07-06-2022 Miscellaneous Notes* Telephone Encounter - Yue Power RN - 04/08/2022 3:27 PM EDT VM left to notify patient. documented in this encounterUc Medical Center06-27-2022 Miscellaneous Notes* Telephone Encounter - Maddi Roman LPN - 03/30/2022 11:37 AM EDT Called patient. Verified name and date of . Patient has appointment scheduled with Cali Costa PA-C on 04/07/2022, per patient he does not need appointment as he is scheduled for 04/08/[address] Tolbert. Appointment with Cali Costa PA-C cancelled. Maddi Roman LPN documented in this encounterUc Medical Center06-22-2022 Miscellaneous Notes* Telephone Encounter - Madhuri Greenwood Ma - 03/25/2022 12:45 PM EDT Pt notified and voiced understanding. Madhuri Greenwood Ma * Telephone Encounter - Cali Cordero MD - 03/25/2022 12:30 PM EDT Yes, he may hold the Plavix for 5 days prior to the biopsy. Cali Cordero MD * Telephone Encounter - Jasmine Menendez RN - 03/25/2022 8:18 AM EDT Patient calls and states that urology wants to do a biopsy on patient's prostate. No surgery date yet. Patient states that urology wants to know if it is ok for patient to go off of Plavix 5 days before procedure? Please review and advise, Jasmine Menendez RN documented in this encounterUc Medical Center06-22-2022 Miscellaneous Notes* Telephone Encounter - Debo Valerio - 03/25/2022 8:41 AM EDT Pt confirmed prostate bx in [facility] with Dr. Tolbert 04/08/22 @ 9:00am. 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 Janey documented in this encounterUc Medical Center06-21-2022 Miscellaneous Notes* Telephone Encounter - Maddi Roman LPN - 03/24/2022 3:40 PM EDT Called patient. Verified name and date of . Patient notified of results and states he would like to move forward with biopsy. Aware that Cali Costa PA-C will notify staff urologist and he will receive call to schedule. Maddi Roman LPN * Telephone Encounter - Cali Costa PA-C - 03/24/2022 11:19 AM EDT Please let patient know his IsoPSA is 7.8% which indicates he should have a prostate biopsy in the next weeks to month He can make an appointment if he wishes to discuss, otherwise if he say go ahead I will send it to staff Urologist to have biopsy completed and they will call him to set that up. I just need to know either way CAITLIN [place], [place], ADENIKE documented in this encounterUc Medical Center06-20-2022 Miscellaneous Notes* Telephone Encounter - Yue Power RN - 03/23/2022 1:37 PM EDTSummary: Left Heart Cath Instructions Reviewed [facility] instructions with patient. Instructions sent via [employer]. Patient verballized understanding. documented in this encounterUc Medical Center06-16-2022 Instructions* Patient Instructions* Yue Martinez APRN.TECHNICAL SUPPORT CONSULTANT - 03/19/2022 2:39 PM EDT 1. Increase losartan to 50mg once a day. Continue checking home blood pressure readings and bring this log in with you to all cardiology visits. Your goal blood pressure should be less than 130/80 the majority of the time. 2. Schedule echocardiogram 3. Get blood work done for the heart catheterization (this does not need to be a fasting blood test). 4. The schedulers from [place] will reach out to you to set up a date and time for the catheterization. documented in this encounterUc Medical Center06-16-2022 History of Present illness Narrative* Yue Martinez APRN.CNP - 03/19/2022 2:30 PM EDT Images from the original note were not included. [facility] [place] Vickie Soto Department of Cardiovascular Medicine SECTION OF CLINICAL CARDIOLOGY OUTPATIENT VISIT DATE March 19, 2022 OUTPATIENT VISIT TYPE ESTABLISHED PRIMARY CARE PHYSICIAN: Cali Cordero [address] [place] [address] REASON FOR VISIT: 3 week follow up HISTORY OF PRESENT ILLNESS: Mr. Wesley is a 71 year old male with a history of CAD, S/P PCI (2015), HTN, HLD, and T2DM. The patient was most recently seen by me on 02/26/2022 for evaluation of exertional chest discomfortover the past several months. A nuclear stress test performed in June 2021 demonstrated no evidence of ischemia or infarction. He preferred to try optimizing his medical therapy prior to any invasive cardiac work-up, for which he was started on Imdur 30 mg daily. He called in on 03/05/2022 reporting intolerance to Imdur with side effects of headaches, upset stomach, and general fatigue. He was instructed to stop the Imdur and carvedilol was uptitrated to 25 mg BID. Today he admits to a very modest improvement in symptoms following the up- titration of carvedilol. He had another episode of chest discomfort last week while walking in [place]. After walking for a few minutes he developed a midsternal chest aching with radiation to the neck and associated with deep fatigue. Symptoms abated within 10-15 minutes. He denies any shortness of breath, dyspnea on exertion, lightheadedness, dizziness, near-syncope, syncope, orthopnea, or PND. Minor ankle swelling at baseline. Rare palpitations. Home blood pressures are done sporadically. Home SBPs done sporadically and trend 150s-160s. Subjective PAST MEDICAL HISTORY Diagnosis Date Abdominal pain, other specified site Asthma CAD (coronary artery disease) Cholelithiasis 09/25/13 Colitis Esophageal reflux Gastroesophageal reflux Hypertension Impotence of organic origin Impotence SUJEY (obstructive sleep apnea) RUQ abdominal pain 09/25/13 PAST SURGICAL HISTORY Procedure Laterality Date COLONOSCOPY FLX DX W/COLLJ SPEC WHEN PFRMD Colonoscopy Dr. Ferreira ESOPHAGOGASTRODUODENOSCOPY TRANSORAL DIAGNOSTIC EGD Dr. Ferreira LAPAROSCOPY SURG CHOLECYSTECTOMY 09/25/13 PAST SURGICAL HISTORY OF I&D left hand PAST SURGICAL HISTORY OF Removal cyst on back STENT PLACEMENT 4 Stents SOCIAL HISTORY Social History Tobacco Use Smoking status: Former Smoker Quit date: 10/27/2011 Years since quittin.4 Smokeless tobacco: Never Used Vaping Use Vaping Use: Never used Substance Use Topics Alcohol use: Yes Comment: 1 beer in the evening Drug use: No FAMILY HISTORY Problem Relation Age of Onset Colon Cancer Mother Heart Mother Ovarian cancer Mother Prostate Cancer Brother Stroke Brother Emphysema Father ALLERGIES: ALLERGIES Allergen Reactions Gemfibrozil Intolerance Rosuvastatin Intolerance Simvastatin Intolerance Imdur [Isosorbide] Other: See Comments Headaches, upset stomach, fatigue Penicillins Other: See Comments passed out and felt like I had the flu Pt states he's no longer allergic to this, he's taken tests w/out issues. Pravastatin Myalgia MEDICATIONS: losartan (COZAAR) 50 mg tablet Take 1 tablet by mouth once daily. carvedilol (COREG) 25 mg tablet Take 1 tablet by mouth twice daily with meals. alirocumab (PRALUENT PEN) 75 mg/mL pen Inject 1 mL subcutaneously every other week. clopidogrel (PLAVIX) 75 mg tablet Take 1 tablet by mouth once daily. ADVAIR DISKUS 500-50 mcg/dose dsdv INHALE 1 (ONE) puff EVERY 12 HOURS aspirin, enteric coated (ASPIRIN, ENTERIC COATED) 81 mg EC tablet aspirin ASPIRIN 81 MG TABS One tablet by mouth daily ASPIRIN [id number] Daya Deal RN 02-20-2016 [facility] ([id number]) LANSOPRAZOLE 30 mg capsule REVIEW OF SYSTEMS: GENERAL: Negative for: Weight loss or gain, Fever or Chills, Weakness and Sleep difficulties. HEENT: Negative for: Headache, Impaired Vision, Glasses, Hearing Impairment, Ringing in Ears, Nosebleeds, Poor Dental Care, Bleeding Gums and Dentures. NECK: Negative for: Swelling, Pain, Stiffness RESPIRATORY: See HPI CARDIOVASCULAR: See HPI GASTROINTESTINAL: Negative for: Trouble swallowing, Heartburn, Change in bowel habits, Blood in stool, Dark black stools MUSCULOSKELETAL: + arthralgias NEUROLOGIC/PSYCHIATRIC: Negative for: Weakness, Paralysis, Numbness, Tingling, Tremor, Nervousness or anxiety, Depressed mood, Memory loss SKIN: Negative for: Rash, Itching HEMATOLOGICAL/LYMPHATIC: Negative for: Easy bruising, Easy bleeding ENDOCRINE: Negative for: Heat or Cold Intolerance, Excessive Sweating, Frequent Urination, FrequentThirst Objective PHYSICAL EXAMINATION: BP 140/70 Pulse 70 Ht 182.9 cm (6') Wt 104.2 kg (229 lb 11.2 oz) SpO2 96% BMI 31.15 kg/m General: Well appearing, in no acute distress, speaking in complete sentences. Skin: No clubbing, no cyanosis. Eyes: Extra ocular movements intact Oropharynx: Teeth in good repair. Neck: No jugular venous distention, no carotid bruits, carotids have a normal upstroke, no palpablethyromegaly. Lungs: Clear to auscultation bilaterally, no wheezing or rhonchi. Heart: Regular rhythm, no murmur. Abdomen: Soft, nontender, bowel sounds normal, no palpable organomegaly, no bruits. Extremities: No peripheral edema . Grade 2/4 distal pulses bilaterally. Neuro: Oriented to person, place and time, alert. CARDIOVASCULAR MEDICINE TESTING: Pharmacologic MPI stress test (06/23/2021): CONCLUSIONS: 1. SPECT Perfusion Study: Normal. 2. There is no scintigraphic evidence for inducible ischemia. 3. No evidence of scarred myocardium. 4. Left ventricle is normal in size. The left ventricle systolic function is hyperdynamic. 5. Right ventricle is normal in size. The right ventricle systolic function is normal. 6. This is a low risk scan. Gated Stress FBP LVEF % 77 * There were no tests performed for review. IMPRESSION: 1. Chest pain - Midsternal chest aching - Radiation outwards across the chest and occasionally up into the next - Associated fatigue - Exertional and abates with rest - Would prefer to try optimizing medical therapy prior to invasive cardiac workup - Did not tolerate Imdur due to headaches, fatigue, and dyspepsia - Proceed with LHC at [facility] and update Echo 2. CAD - S/P PCI with IRENE to PLB of the RCA and PTCA to prox-PDA in 2016 - Normal Pharm MPI 06/2021 - Continue ASA, Plavix, statin, and BB 3. Essential hypertension - Suboptimal control on losartan and carvedilol - Encouraged dietary sodium restriction/DASH diet - Reviewed risks of HTN and principles of treatment - Goal of BP <130/80 - Increase losartan to 50mg daily 4. Pure hypercholesterolemia - Documented intolerance to statins due to severe myalgias - Last lipid panel 03/2021 with LDL 147 - Started Praluent end of February 2022 - Repeat lipids end of May 2022 5. Type 2 diabetes mellitus PLAN AND RECOMMENDATIONS: Patient here for evaluation of exertional chest discomfort suggestive of angina. He unfortunately did not tolerate the addition of long-acting nitrates due to side effects of headache, worsening fatigue, and dyspepsia. Carvedilol was up- titrated to 25mg BID and while there has been a slight improvement, he continues to experience ongoing midsternal chest aching with occasional radiation into his neck. This was reviewed with Dr. Pacheco and the recommendation is to proceed with left heart catheterization at [facility] to further define his coronary anatomy. Blood pressures are still not optimally controlled, for which I will increase losartan to 50 mg daily. He started Praluent after our last visit and we will repeat another fasting lipid panel towards the end of May 2022. Additionally, I will update an echocardiogram evaluate heart structure and function. He should continue to actively engage in cardiovascular risk factor modification and follow up after his catheterization, or sooner should need arise. CONTACT INFORMATION: Yue Martinez APRN.[facility] Cardiology Nurse Practitioner Section of Regional Cardiology [facility] Dept of Cardiovascular Medicine [facility] [place] [address] [place] [address] Office Office This note was partially generated using ADmantX voice recognition system, and there may be some incorrect words, spellings, and punctuation that were not noted in checking the note before saving. I personally interviewed, confirmed and edited the above information if obtained by others. documented in this encounterUc [facility] Center06-14-2022 History of Present illness Narrative* Cali Costa PA-C - 03/17/2022 4:22 PM EDT Images from the original note were not included. PATIENT INFO: Denton Wesley 71 year old ( ) REFERRING PROVIDER: Robson Robertson PCP: Cali Cordero MD March 17, 2022 HPI: Denton Wesley 71 year old male is here today for discussion and evaluation of elevated PSA of 4.62 He states he has had other PSA's in the past from [facility] but we do not have those recordstoday, he will sign a release of records I also gave him paperwork to read over and discuss the IsoPSA test which I think would benefit him in deciding to biopsy or not given 71 yo and brother had prostate cancer as well I ordered the IsoPSA so if he decides to do it he can just come with signed form to lab anytime they are open.. LUTS: none Other symptoms: LABS: No results found for: TESTOST No results found for: TESTFREE PSA (ng/mL) Date Value 03/12/2022 4.62 03/10/2022 4.86 Hematocrit (%) Date Value 02/09/2022 45.7 10/23/2020 47.7 03/20/2016 40.9 03/19/2016 39.9 MEDICATIONS: carvedilol (COREG) 25 mg tablet Take 1 tablet by mouth twice daily with meals. alirocumab (PRALUENT PEN) 75 mg/mL pen Inject 1 mL subcutaneously every other week. clopidogrel (PLAVIX) 75 mg tablet Take 1 tablet by mouth once daily. ADVAIR DISKUS 500-50 mcg/dose dsdv INHALE 1 (ONE) puff EVERY 12 HOURS aspirin, enteric coated (ASPIRIN, ENTERIC COATED) 81 mg EC tablet aspirin ASPIRIN 81 MG TABS One tablet by mouth daily ASPIRIN [id number] Daya Deal RN 02-20-2016 [facility] ([id number]) losartan (COZAAR) 25 mg tablet Take 25 mg by mouth once daily. LANSOPRAZOLE 30 mg capsule PAST MEDICAL HISTORY: PAST MEDICAL HISTORY Diagnosis Date Abdominal pain, other specified site Asthma CAD (coronary artery disease) Cholelithiasis 09/25/13 Colitis Esophageal reflux Gastroesophageal reflux Hypertension Impotence of organic origin Impotence SUJEY (obstructive sleep apnea) RUQ abdominal pain 09/25/13 PAST SURGICAL HISTORY: PAST SURGICAL HISTORY Procedure Laterality Date COLONOSCOPY FLX DX W/COLLJ SPEC WHEN PFRMD Colonoscopy Dr. Ferreira ESOPHAGOGASTRODUODENOSCOPY TRANSORAL DIAGNOSTIC EGD Dr. Ferreira LAPAROSCOPY SURG CHOLECYSTECTOMY 09/25/13 PAST SURGICAL HISTORY OF I&D left hand PAST SURGICAL HISTORY OF Removal cyst on back STENT PLACEMENT 4 Stents FAMILY HISTORY: FAMILY HISTORY Problem Relation Age of Onset Colon Cancer Mother Heart Mother Ovarian cancer Mother Prostate Cancer Brother Stroke Brother Emphysema Father SOCIAL HISTORY: Social Connections: Moderately Isolated Frequency of Communication with Friends and Family: Twice a week Frequency of Social Gatherings with Friends and Family: Once a week Attends Buddhist Services: Never Active Member of Clubs or Organizations: No Attends Club or Organization Meetings: Patient refused Marital Status: REVIEW OF SYSTEMS: GENERAL: No fever, chills, weight loss, or fatigue. ENMT: Negative CARDIOVASCULAR:NO CHEST PAIN, PALPITATIONS, ANKLE EDEMA RESPIRATORY: No chronic cough, wheezing, dyspnea, hemoptysis. GENITOURINARY: SEE HPI MUSCULOSKELETAL:NO CHRONIC BACK PAIN, ARTHRITIS, CHRONIC NECK PAIN SKIN: NO VARICOSE VEINS, RASH, ABNORMAL ITCHING HEME/LYMPH/IMMUNE:Negative for prolonged bleeding, bruising easily or swollen nodes NEUROLOGICAL: NO HEADACHES, NUMBNESS, SEIZURES, STROKE DIABETES: No All other systems reviewed and are negative PHYSICAL EXAMINATION: Blood pressure 152/88, pulse 94, temperature 36.8 C (98.2 F), temperature source Temporal, resp. rate 14, height 177.8 cm (5' 10), weight 104.3 kg (230 lb), SpO2 98 %. GENERAL: WNL nutrition, no deformities, healthy appearing NEURO: Awake, alert and oriented x 3 and Normal gait PSYCH: No signs of depression, anxiety, or agitation ENMT (Ear, Nose, Mouth, Throat): No masses, adenopathy, icterus. Thyroid nonpalpable RESP: NL effort, no retractions or purse-lip breathing. CV: No extremity swelling, varices, edema, pallor, erythema GASTROINTESTINAL: Soft, nontender, nondistended, no masses. HERNIAS: None SKIN: No rash, lesions No palpable lymphadenopathy MUSCULOSKELETAL: Extremities normal. No deformities, edema, clubbing or skin discoloration. PROBLEM LIST REVIEW: Yes LABS: Results for orders placed or performed in visit on 03/17/22 UA DIP, URINE (POC) Result Value Ref Range GLUCOSE UA (POCT) 100 (A) Negative mg/dL BILIRUBIN UA (POCT) Negative Negative KETONE UA (POCT) Negative Negative mg/dL SPECIFIC GRAVITY UA (POCT) 1.020 1.005 - 1.030 HEMOGLOBIN/BLOOD UA (POCT) Negative Negative PH UA (POCT) 5.5 4.5 - 8.0 PROTEIN UA (POCT) Negative Negative mg/dL UROBILINOGEN UA (POCT) 1.0 Normal E.U./dL NITRITE UA (POCT) Negative Negative LEUKOCYTES UA (POCT) Negative Negative COLOR UA (POCT) Yellow CLARITY UA (POCT) Clear PROCEDURES: PVR: -0 ml IMAGING: IMPRESSION/PLAN: 1. Elevated PSA of 4.62 > need other PSA's from [facility] sent to us - sign release of records today > Recommend Iso PSA based on age and PSA > 4.0 with a brother + for prostate cancer I ordered the IsoPSA so if he decides to do it he can just come with signed form to lab anytime they are open.. I spent a total of 30 minutes on the date of the service which included preparing to see the patient, face to face patient care, completing clinical documentation, obtaining and/or reviewing separately obtained history, performing a medically appropriate examination, counseling and educating the pat ient/family/caregiver, ordering medications, tests, or procedures, and care coordination. CAITLIN Chahal, MT, ADENIKE * Maddi Roman LPN - 03/17/2022 4:18 PM EDT CC Post Void Residual HPI: Denton Wesley is a 71 year old male. The patient is here now for an appointment with CAITLIN Chahal, MT, PA-COV. Procedure: Explained procedure to patient and verbalizes understanding. Performed a PVR. Patient urinated and instructed to empty bladder as much as possible just prior to having PVR done using bladder ultrasound scanner. Results of scan: 0 mL The patient tolerated the procedure well. Plan: Appointment with Cali. documented in this encounterUc Medical Center06-08-2022 Miscellaneous Notes* Telephone Encounter - Matilda Hannah LPN - 03/11/2022 1:57 PM EDT Patient notified of results, verbalizes understanding of instructions. Matilda Hannah LPN * Telephone Encounter - Robson Robertson APRN.CNP - 03/11/2022 1:29 PM EDT Please let patient know that his kidney function is normal. His Hgb A1c is well controlled at 6.9%.His PSA is elevated at 4.86. He needs to return to the lab to get additional testing to guide if weshould be referring to urology for this finding or continue to monitor over the next 3-6 months. Robson Robertson APRN.MANNY documented in this encounterUc Medical Center06-02-2022 Miscellaneous Notes* Telephone Encounter - Yue Martinez APRN.CNP - 03/05/2022 11:08 AM EDT Agree stopping the Imdur. Let's try going up on his carvedilol to 25mg twice daily (from 12.5mg BID). I've sent a prescription for the new tablet strength to his pharmacy. For now, he can Take 2 x 12.5mg tablets twice a day to use up what he has. Have him bring a list of BP/HRs to his upcoming visit with me in 2 weeks. Thanks! Yue * Telephone Encounter - Yue Power RN - 03/05/2022 11:00 AM EDTSummary: medication intolerance Patient called to report intolerance to new isosorbide mononitrate prescription. States he is getting terrible headaches, upset stomach and general fatigue when he takes it. Will not continue. documented in this encounterUc Medical Center06-01-2022 Miscellaneous Notes* Telephone Encounter - Joseph Tubbs Ma - 03/04/2022 12:07 PM EDT Pt called and notified of Provider's response below. Pt will get additional lab completed as requested. Joseph Tubbs Ma * Telephone Encounter - Robson Robertson APRN.CNP - 03/04/2022 8:51 AM EDT Please let patient know that his CT of the abdomen and pelvis shows no concerning features or masses. He has an enlarged prostate, which we should get a PSA to make sure there is nothing else going on with his prostate. Continue with plan to see gastroenterology. Robson Robertson APRN.MANNY documented in this encounterUc Medical Center05-24-2022 History of Present illness Narrative* Maddi Salvador, RT(R) - 02/24/2022 2:20 PM EDT Radiology Service Progress Note PATIENT NAME: Denton Wesley DATE OF SERVICE: February 24, 2022 TIME: 3:48 PM PATIENT IDENTITY VERIFICATION COMPLETED USING TWO (2) IDENTIFIERS: Name and Date of confirmedby patient verbally. FALL SCREENING: Has the patient had 2 falls in the last year or 1 fall with injury or currently using an Ambulatory Assistive Device (Walker, Cane, Wheelchair, Crutches, etc.)? No PATIENT GENDER DATA: Male PATIENT RELEVANT IMPLANT DATA REVIEWED: Yes RADIOLOGY DEPARTMENT: CT; Exam(s) Completed: Abdomen/Pelvis PERIPHERAL IV DATA: Not applicable SIGNED BY: RT Jenna(R) February 24, 2022 3:48 PM documented in this encounterUc Medical Center05-10-2022 Miscellaneous Notes* Telephone Encounter - Madhuri Greenwood Ma - 02/10/2022 9:40 AM EDT Pt notified of results via [employer]. Madhuri Greenwood Ma * Telephone Encounter - Madhuri Greenwood Ma - 02/10/2022 9:38 AM EDT ----- Message from Robson Robertson APRN.CNP sent at 02/10/2022 7:30 AM EDT ----- Please inform patient that his complete blood count was normal. Not likely infection will have ongoing. Continue with plan to get CT of abdomen when approved by insurance and see marine equipment preservation inspector. Robson Robertson CNP documented in this encounterUc Medical Center05-09-2022 Instructions* Patient Instructions* Robson Robertson APRN.CNP - 02/09/2022 1:35 PM EDT 1. Get blood work today 2. Schedule appointment with cardiology and gastroenterology 3. Schedule CT of the abdomen and wait for insurance to approve. Do not get done until you know itsbeen approved. Robson Robertson APRN.CNP documented in this encounterUc Medical Center05-09-2022 History of Present illness Narrative* Robsontex Robertson, OIL TREATER.TECHNICAL SUPPORT CONSULTANT - 02/09/2022 1:20 PM EDT Chief Complaint Patient presents with: Established Patient: abdomen issues- x 2 years HPI Denton Wesley is a 71 year old male who presents here today for Chronic Medical Conditions.. Patient is here for complaints of abdominal issues. States that it has been ongoing for about [address] Cordero in January. Had normal xray of the right side of the abdomen. Some nausea occasionally. Mentions that eating ice cream at night will cause increased pain in the RLQ. Will cause bloating. No blood in stool or urine. No diarrhea unless he has milk products. History of lap cholecystomy. Previously was followed with Dr. Ferreira at [facility] for GI care. States that it has been over 10 years since last colonoscopy. History of colitis in the past. He is on a PPI, Lansoproazole 30 mg daily. Has history of CAD with normal NM stress testing in 06/2021. Overdue for follow up with cardiology. Past medical history, appointments, medications, allergies reviewed. Previous Medical History PAST MEDICAL HISTORY Diagnosis Date Abdominal pain, other specified site Asthma CAD (coronary artery disease) Cholelithiasis 09/25/13 Colitis Esophageal reflux Gastroesophageal reflux Hypertension Impotence of organic origin Impotence SUJEY (obstructive sleep apnea) RUQ abdominal pain 09/25/13 Previous Surgical History PAST SURGICAL HISTORY Procedure Laterality Date COLONOSCOPY FLX DX W/COLLJ SPEC WHEN PFRMD Colonoscopy Dr. Ferreira ESOPHAGOGASTRODUODENOSCOPY TRANSORAL DIAGNOSTIC EGD Dr. Ferreira LAPAROSCOPY SURG CHOLECYSTECTOMY 09/25/13 PAST SURGICAL HISTORY OF I&D left hand PAST SURGICAL HISTORY OF Removal cyst on back STENT PLACEMENT 4 Stents Family History FAMILY HISTORY Problem Relation Age of Onset Colon Cancer Mother Heart Mother Ovarian cancer Mother Prostate Cancer Brother Stroke Brother Emphysema Father Patient Allergies ALLERGIES Allergen Reactions Gemfibrozil Intolerance Rosuvastatin Intolerance Simvastatin Intolerance Penicillins Other: See Comments passed out and felt like I had the flu Pt states he's no longer allergic to this, he's taken tests w/out issues. Pravastatin Myalgia Current Medications Current Outpatient Medications on File Prior to Visit Medication Sig alirocumab (PRALUENT PEN) 75 mg/mL pen Inject 1 mL subcutaneously every other week. clopidogrel (PLAVIX) 75 mg tablet Take 1 tablet by mouth once daily. carvedilol (COREG) 12.5 mg tablet Take 1 tablet by mouth twice daily with meals. ADVAIR DISKUS 500-50 mcg/dose dsdv INHALE 1 (ONE) puff EVERY 12 HOURS aspirin, enteric coated (ASPIRIN, ENTERIC COATED) 81 mg EC tablet aspirin ASPIRIN 81 MG TABS One tablet by mouth daily ASPIRIN [id number] Daya Deal RN 02-20-2016 [facility] ([id number]) losartan (COZAAR) 25 mg tablet Take 25 mg by mouth once daily. LANSOPRAZOLE 30 mg capsule No current facility-administered medications on file prior to visit. Social History Social History Tobacco Use Smoking status: Former Smoker Quit date: 10/27/2011 Years since quittin.2 Smokeless tobacco: Never Used Vaping Use Vaping Use: Never used Substance Use Topics Alcohol use: Yes Comment: 1 beer in the evening Drug use: No REVIEW OF SYSTEMS: as above Reviewed relevant PMHx, PSHx, Social Hx, current medications and allergies. EXAM: BP 157/89 (BP Site: Right Arm, BP Position: Sitting, BP Cuff Size: Large Adult) Pulse 77 Temp 37.1 C (98.7 F) Resp 14 Ht 182.9 cm (6') Wt 104.3 kg (230 lb) BMI 31.19 kg/m General Appearance: Well appearing, alert, in no acute distress, well-hydrated, well nourished. andObese. Lungs: Lungs clear to auscultation. No wheezing, rhonchi, rales.. Heart: RRR without murmur, gallop, or rubs. No ectopy. Abdomen: Abdomen soft. Bowel sounds normal. Verbalizes moderate discomfort in the RLQ with deep palpation. Health Maintenance List ABDOMINAL AORTIC ANEURYSM SCREENING Never done DTAP,TDAP,TD(1 - Tdap) Never done COLORECTAL CANCER SCREENING due on 10/04/2012 PNEUMOVAX AGE 65 AND OVER WITH 5YR LOOKBACK(1) Never done SHINGRIX VACCINE(2 of 2) due on 12/22/2019 DEPRESSION SCREENING due on 10/24/2020 COVID-19 VACCINE(3 - Booster for Moderna series) due on 06/02/2021 ADVANCE DIRECTIVE DISCUSSION Never done LDL CHOLESTEROL due on 04/01/2022 BP CONTROLLED (<130/80) due on 04/01/2022 INFLUENZA(Season Ended) due on 2022 ANNUAL PCP TEAM CHRONIC DISEASE VISIT due on 01/06/2023 DIABETES SCREEN due on 04/01/2024 LIPID SCREEN due on 04/01/2026 HEPATITIS C SCREENING Completed MENINGOCOCCAL CONJUGATE Aged Out ASSESSMENT/PLAN: 1. Right lower quadrant abdominal pain - ICD9: 789.03, ICD10: R10.31 (primary diagnosis) Etiology unclear - Xray of ribs were normal of right side. - Labs of CBC with Diff, CMP, ESR and CRP - Work up with Colonoscopy and CT Abdomen/Pelvis - Referral to Gastroenterology - CT ABD/PEL WO IVCON - SED RATE WESTERGREN - C-REACTIVE PROTEIN (CRP) 2. RLQ abdominal pain - ICD9: 789.03, ICD10: R10.31 - CONSULT TO GASTROENTEROLOGY - CBC + DIFF 3. Nausea - ICD9: 787.02, ICD10: R11.0 - see #1 - CT ABD/PEL WO IVCON 4. Screening for colon cancer - ICD9: V76.51, ICD10: Z12.11 - CONSULT TO GASTROENTEROLOGY 5. Coronary artery disease involving nome heart without angina pectoris, unspecified vessel or lesion type - ICD9: 414.01, ICD10: I25.10 - Schedule appointment with cardiology for follow up Robson Robertson APRN.MANNY This note was partly generated using [employer]X voice recognition dictation and may contain some misspelled or inaccurate words missed on review. documented in this encounterUc Medical Center04-27-2020 History of Past illness Narrative* Problem Noted Date Resolved Date Hyperlipidemia 01/29/2020 08/13/2021 documented as of this encounter (statuses as of 02/09/2022) [address]27-2020 History of Past illness Narrative* Problem Noted Date Resolved Date Hyperlipidemia 01/29/2020 08/13/2021 documented as of this encounter (statuses as of 02/10/2022) [address]27-2020 History of Past illness Narrative* Problem Noted Date Resolved Date Hyperlipidemia 01/29/2020 08/13/2021 documented as of this encounter (statuses as of 02/25/2022) [address]27-2020 History of Past illness Narrative* Problem Noted Date Resolved Date Hyperlipidemia 01/29/2020 08/13/2021 documented as of this encounter (statuses as of 02/25/2022) [address]27-2020 History of Past illness Narrative* Problem Noted Date Resolved Date Hyperlipidemia 01/29/2020 08/13/2021 documented as of this encounter (statuses as of 03/04/2022) [address]27-2020 History of Past illness Narrative* Problem Noted Date Resolved Date Mixed hyperlipidemia 01/29/2020 03/05/2022 documented as of this encounter (statuses as of 03/05/2022) [address] History of Past illness Narrative* Problem Noted Date Resolved Date Mixed hyperlipidemia 01/29/2020 03/05/2022 documented as of this encounter (statuses as of 03/12/2022) [address]27-2020 History of Past illness Narrative* Problem Noted Date Resolved Date Mixed hyperlipidemia 01/29/2020 03/05/2022 documented as of this encounter (statuses as of 03/17/2022) [facility] [place] [facility]* Diagnosis Right lower quadrant abdominal pain- Primary Abdominal pain, right lower quadrant RLQ abdominal pain Abdominal pain, right lower quadrant Nausea Nausea alone Screening for colon cancer Special screening for malignant neoplasms, colon Coronary artery disease involving nome heart without angina pectoris, unspecified vessel or lesion type [facility] Diagnosis Right lower quadrant abdominal pain Abdominal pain, right lower quadrant Nausea Nausea alone [facility]* Diagnosis Enlarged prostate- Primary Hypertrophy of prostate without urinary obstruction and other lower urinary tract symptoms (LUTS) [facility] Diagnosis Coronary artery disease involving nome coronary artery of nome heart without angina pectoris Essential hypertension Unspecified essential hypertension [facility] Diagnosis Elevated PSA- Primary Elevated prostate specific antigen (PSA) [facility]* Diagnosis Elevated PSA Elevated prostate specific antigen (PSA) [facility]* Diagnosis 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 Essential hypertension Unspecified essential hypertension Mixed hyperlipidemia Exertional chest pain Chest pain, unspecified MCCOY (dyspnea on exertion) Other dyspnea and respiratory abnormality [facility]* Diagnosis Elevated prostate specific antigen (PSA)- Primary Stable angina (HCC) Other and unspecified angina pectoris Dyspnea on exertion Other dyspnea and respiratory abnormality [facility]* Diagnosis 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 Dyspnea on exertion Other dyspnea and respiratory abnormality Stable angina (HCC) Other and unspecified angina pectoris [facility]* Diagnosis Mixed hyperlipidemia- Primary [facility]* Diagnosis 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 Dyspnea on exertion Other dyspnea and respiratory abnormality Essential hypertension Unspecified essential hypertension [facility]* Diagnosis 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 (ICD-10-CM)]- Primary [facility]* Diagnosis Elevated PSA- Primary Elevated prostate specific antigen (PSA) Type 2 diabetes mellitus without complication, without long-term current use of insulin (HCC) [facility]* Diagnosis SOB (shortness of breath)- Primary Shortness of breath Chest pain due to myocardial ischemia, unspecified ischemic chest pain type [facility]* Diagnosis Lung nodules- Primary Other nonspecific abnormal finding of lung field [facility]* Diagnosis 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 (ICD-10-CM)]- Primary [facility]* Diagnosis Elevated prostate specific antigen (PSA)- Primary [facility]* Diagnosis Nocturia- Primary Elevated PSA Elevated prostate specific antigen (PSA) Post-void dribbling Post-void dribbling [facility]* Diagnosis Encounter for observation for other suspected diseases and conditions ruled out- Primary Prostate cancer (HCC) Malignant neoplasm of prostate [facility]* Diagnosis Prostate cancer (HCC)- Primary Malignant neoplasm of prostate Nocturia [facility]* Diagnosis 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)- Primary Preoperative testing Preoperative examination, unspecified Elevated PSA Elevated prostate specific antigen (PSA) Type 2 diabetes mellitus without complication, without long-term current use of insulin (HCC) 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) [facility] [place] [facility] Diagnosis Screening for colon cancer Special screening for malignant neoplasms, colon 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) [facility] [place] [facility]* Diagnosis Pre-op testing- Primary Preoperative examination, unspecified 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) Type 2 diabetes mellitus without complication, without long-term current use of insulin (HCC) Primary hypertension Unspecified essential hypertension [facility] [place] [facility]* Diagnosis 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)- Primary Pre-op testing Preoperative examination, unspecified 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) [facility] [place] [facility]* Diagnosis S/P CABG x 2- Primary Postsurgical aortocoronary bypass status 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) Paroxysmal atrial fibrillation (HCC) Atrial fibrillation Controlled type 2 diabetes mellitus without complication, unspecified whether endo tech insulin use (HCC) Primary hypertension Unspecified essential hypertension Mixed hyperlipidemia [facility] [place] [facility]* Diagnosis S/P CABG x 2- Primary Postsurgical aortocoronary bypass status 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) PAF (paroxysmal atrial fibrillation) (HCC) Atrial fibrillation Type 2 diabetes (HCC) Essential hypertension Unspecified essential hypertension Mixed hyperlipidemia Urinary retention Retention of urine, unspecified History of prostate cancer Personal history of malignant neoplasm of prostate Bradycardia Other specified cardiac dysrhythmias [facility] [place] [facility]* Diagnosis S/P CABG x 2 Postsurgical aortocoronary bypass status [facility] Work [facility]: Evaluation note* Diagnosis Essential hypertension- Primary Unspecified essential hypertension Type 2 diabetes mellitus without complication, without long-term current use of insulin (HCC) S/P CABG x 2 Postsurgical aortocoronary bypass status Mixed hyperlipidemia Elevated PSA Elevated prostate specific antigen (PSA) [facility] [place] [facility]* Diagnosis 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 S/P CABG x 2 Postsurgical aortocoronary bypass status Essential hypertension Unspecified essential hypertension Paroxysmal atrial fibrillation (HCC) Atrial fibrillation Pure hypercholesterolemia [facility] [place] [facility]* Diagnosis Neck pain- Primary Cervicalgia Type 2 diabetes mellitus without complication, without long-term current use of insulin (HCC) Mixed hyperlipidemia Essential hypertension Unspecified essential hypertension Pulmonary nodule Solitary pulmonary nodule Lung nodules Other nonspecific abnormal finding of lung field [facility] [place] [facility]* Diagnosis Localized enlarged lymph nodes- Primary Enlargement of lymph nodes [facility] [place] [facility]* Diagnosis Prostate cancer (HCC)- Primary Malignant neoplasm of prostate Urinary retention Retention of urine, unspecified [facility] [place] [facility]* Diagnosis Prostate cancer (HCC) Malignant neoplasm of prostate [facility] [place] [facility]* Diagnosis Chronic frontal sinusitis- Primary Chronic ethmoiditis Chronic ethmoidal sinusitis Nasal polyp Unspecified nasal polyp documented in this encounter [facility] note* Diagnosis Onset Date Resolution Status Obesity chronic Severe persistent asthma [facility] Work Phone: Evaluation note* Diagnosis Prostate cancer (HCC)- Primary Malignant neoplasm of prostate [facility] [place] [facility]* Diagnosis Prostate cancer (HCC) Malignant neoplasm of prostate [facility] [place] [facility]* Diagnosis Chronic ethmoiditis- Primary Chronic ethmoidal sinusitis Nasal polyp Unspecified nasal polyp Chronic frontal sinusitis documented in this encounter [facility] note* Diagnosis Neck pain Cervicalgia [facility] [place] [facility]* Diagnosis Nodule of skin of abdomen [facility] [place] [facility]* Diagnosis Encounter for observation for other suspected diseases and conditions ruled out Prostate cancer (HCC) Malignant neoplasm of prostate [facility] [place] [facility]* Diagnosis Prostate cancer (HCC) Malignant neoplasm of prostate [facility] [place] [facility]* Diagnosis Pulmonary nodule Solitary pulmonary nodule Lung nodules Other nonspecific abnormal finding of lung field [facility] [place] [facility]* Diagnosis Grief reaction- Primary Adjustment disorder with depressed mood [facility] [place] [facility]* Diagnosis Prostate cancer (HCC)- Primary Malignant neoplasm of prostate [facility] [place] [facility]* Diagnosis Prostate cancer (HCC)- Primary Malignant neoplasm of prostate [facility] [place] [facility]* Diagnosis Dysuria- Primary [facility] [place] [facility]* Diagnosis Prostate cancer (HCC)- Primary Malignant neoplasm of prostate [facility] [place] [facility]* Diagnosis 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 Palpitations Postoperative atrial fibrillation (HCC) Cardiac complications Essential hypertension Unspecified essential hypertension Mixed hyperlipidemia S/P right coronary artery (RCA) stent placement S/P CABG x 2 Postsurgical aortocoronary bypass status [facility] [place] [facility]* Diagnosis Radiotherapy follow-up- Primary Radiotherapy follow-up examination Prostate cancer (HCC) Malignant neoplasm of prostate documented in this encounter [facility] note* Diagnosis Bilateral hip pain- Primary Pain in joint, pelvic region and thigh Grief reaction Adjustment disorder with depressed mood [facility] [place] [facility]* Diagnosis Coronary artery disease involving nome coronary artery of nome heart without angina pectoris- Primary Mixed hyperlipidemia Other fatigue Essential hypertension Unspecified essential hypertension Blood in stool Current use of endo tech anticoagulation Long-term (current) use of anticoagulants S/P CABG x 2 Postsurgical aortocoronary bypass status Paroxysmal atrial fibrillation (HCC) Atrial fibrillation Pure hypercholesterolemia [facility] [place] [facility]* Diagnosis Bilateral hip pain- Primary Pain in joint, pelvic region and thigh [facility] [place] [facility]* Diagnosis Non-seasonal allergic rhinitis, unspecified trigger- Primary documented in this encounter [facility] note* Diagnosis Acute cough- Primary Pneumonia due to infectious organism, unspecified laterality, unspecified part of lung Acute cough documented in this encounter [facility] note* Diagnosis Type 2 diabetes mellitus without complication, without long-term current use of insulin (HCC)- Primary Wheezing Community acquired pneumonia of right lung, unspecified part of lung Essential hypertension Unspecified essential hypertension Mixed hyperlipidemia Community acquired pneumonia of right lung, unspecified part of lung [facility] Essential hypertension Unspecified essential hypertension [facility] [place] [facility]* Diagnosis Acute cough [facility] [place] [facility]* Diagnosis Community acquired pneumonia of right lung, unspecified part of lung [facility] [place] [facility]* Diagnosis Essential hypertension- Primary Unspecified essential hypertension Prostate cancer (HCC) Malignant neoplasm of prostate Right wrist pain Pain in joint, forearm Hematoma Contusion of unspecified site [facility] [place] [facility]* Diagnosis Right wrist pain Pain in joint, forearm [facility] [place] [facility]* Diagnosis Bilateral hip pain Pain in joint, pelvic region and thigh Essential hypertension- Primary Unspecified essential hypertension Type 2 diabetes mellitus without complication, without long-term current use of insulin (HCC) Community acquired pneumonia of right lung, unspecified part of lung Mixed hyperlipidemia [facility] [place] [facility]* Diagnosis Type 2 diabetes mellitus without complication, without long-term current use of insulin (HCC)- Primary Community acquired pneumonia of right lung, unspecified part of lung Essential hypertension Unspecified essential hypertension Mixed hyperlipidemia Encounter for immunization Need for other specified prophylactic vaccination against single bacterial disease History of colonic polyps Personal history of colonic polyps Screening for colon cancer Special screening for malignant neoplasms, colon [facility] [place] [facility]* Diagnosis History of colonic polyps Personal history of colonic polyps Screening for colon cancer Special screening for malignant neoplasms, colon [facility] [place] [facility]* Diagnosis 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) Preoperative testing Preoperative examination, unspecified Elevated PSA Elevated prostate specific antigen (PSA) Type 2 diabetes mellitus without complication, without long-term current use of insulin (HCC) [facility] [place] [facility]* Diagnosis Rib pain on right side Chest pain, unspecified [facility] [place] [facility]* Diagnosis Hospital discharge follow-up- Primary Other follow-up examination Diverticulitis Diverticulitis of colon (without mention of hemorrhage) Abdominal aortic aneurysm (AAA) without rupture, unspecified part (HCC) [facility] [place] [facility]* Diagnosis Screening for colon cancer- Primary Special screening for malignant neoplasms, colon History of colonic polyps Personal history of colonic polyps [facility] [place] [facility]* Diagnosis Abdominal aortic aneurysm (AAA) without rupture, unspecified part (HCC) [facility] Diagnosis Abdominal aortic aneurysm (AAA) without rupture, unspecified part (HCC)- Primary [facility] Diagnosis 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 Essential hypertension Unspecified essential hypertension Mixed hyperlipidemia Current use of half-way anticoagulation Long-term (current) use of anticoagulants S/P CABG x 2 Postsurgical aortocoronary bypass status Paroxysmal atrial fibrillation (HCC) Atrial fibrillation Tobacco use Tobacco use disorder [facility] Diagnosis Epigastric pain- Primary Abdominal pain, epigastric Gastroesophageal reflux disease with esophagitis without hemorrhage Weight gain Abnormal weight gain Type 2 diabetes mellitus without complication, without long-term current use of insulin (HCC) [facility]* Diagnosis Type 2 diabetes mellitus without complication, without long-term current use of insulin (HCC)- Primary [facility]* Diagnosis Epigastric pain Abdominal pain, epigastric [facility]* Diagnosis Epigastric pain- Primary Abdominal pain, epigastric Epigastric pain Abdominal pain, epigastric [facility] Diagnosis 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) [facility] Diagnosis 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) [facility] Diagnosis Flu-like symptoms- Primary Other general symptoms Bacterial sinusitis Unspecified sinusitis (chronic) [facility] Diagnosis History of prostate cancer- Primary Personal history of malignant neoplasm of prostate [facility] Diagnosis Prostate cancer (HCC)- Primary Malignant neoplasm of prostate [facility] Diagnosis History of prostate cancer- Primary Personal history of malignant neoplasm of prostate [facility] Diagnosis Palpitations- Primary Paroxysmal atrial fibrillation (HCC) Atrial fibrillation Essential hypertension Unspecified essential hypertension 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) Mixed hyperlipidemia Current use of endo tech anticoagulation Long-term (current) use of anticoagulants S/P CABG x 2 Postsurgical aortocoronary bypass status Tobacco use Tobacco use disorder documented in this encounter [facility] note* Diagnosis Essential hypertension Unspecified essential hypertension Palpitations documented in this encounter [facility] note* Diagnosis Onset Date Resolution Status Admit Date Obesity chronic February 27, 2025 3:15pm Severe persistent asthma chronic February 27, 2025 3:15pm Smoking greater than 20 pack years chronic February 27, 2025 3 :15pm [facility] [employer] Work Phone: Evaluation note* Diagnosis Chest congestion Other symptoms involving respiratory system and chest Acute recurrent maxillary sinusitis Acute maxillary sinusitis documented in this encounter [facility] note* Diagnosis Essential hypertension- Primary Unspecified essential hypertension 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) Type II or unspecified type diabetes mellitus with other specified manifestations, not stated as uncontrolled Obesity, Class I, BMI 30-34.9 Obesity, unspecified documented in this encounter [facility] note* Diagnosis Type 2 diabetes mellitus without complication, without long-term current use of insulin (HCC)- Primary documented in this encounter [facility] note* Diagnosis Type 2 diabetes mellitus without complication, without long-term current use of insulin (HCC)- Primary Essential hypertension Unspecified essential hypertension Medication nonadherence due to intolerance Abdominal distension Flatulence, eructation, and gas pain Screening for depression Wheezing Encounter for screening examination for other mental health and behavioral disorders documented in this encounter [facility] note* Diagnosis Essential (primary) hypertension Unspecified essential hypertension Vitamin D deficiency Unspecified vitamin D deficiency Dizziness and giddiness documented in this encounter [facility] note* Diagnosis 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- Primary S/P CABG x 2 Postsurgical aortocoronary bypass status documented in this encounter [facility] for referral (narrative)* Diagnostic Procedure Only (Routine) - Authorized Specialty Diagnoses / Procedures Referred By Wang t Referred To Contact CT IMAGING Diagnoses Right lower quadrant abdominal pain Nausea Procedures CT ABD/PEL WO IVCON CT ABD & PELVIS W/O CONTRAST Robson Robertson, KATT.TECHNICAL SUPPORT CONSULTANT [address] [place] [address] Ct Imaging Referral ID Status Reason Start Date Expiration Date V isits Requested Visits Authorized [id number] Authorized 02/09/2022 10/03/2022 1 1 * Consult, Test, Treat (Routine) - Authorized Specialty Diagnoses / Procedures Referred By Katharineac t Referred To Contact Gastroenterology Diagnoses Screening for colon cancer RLQ abdominal pain Procedures CONSULT TO GASTROENTEROLOGY OFFICE/OUTPATIENT NEW HIGH MDM 60-74 MINUTES Robson Robertson APRN.CNP [address] [place] [address] Referral ID Status Reason Start Date Expiration Date Visits Requested Visits Authorized [id number] Authorized PCP Requested Referral 02/09/2022 02/09/2023 1 1 [facility] for referral (narrative)* Diagnostic Procedure Only (Routine) - Closed Specialty Diagnoses / Procedures Referred By Wang t Referred To Contact CT IMAGING Diagnoses Right lower quadrant abdominal pain Nausea Procedures CT ABD/PEL WO IVCON CT ABD & PELVIS W/O CONTRAST Robson Robertson APRN.TECHNICAL SUPPORT CONSULTANT [address] [place] [address] Ct Imaging Referral ID Status Reason Start Date Expiration Date Visits Re quested Visits Authorized [id number] Closed 02/09/2022 10/03/2022 1 1 [facility] for referral (narrative)* Outpatient Procedure (Routine) - Authorized Specialty Diagnoses / Procedures Referred By Contac t Referred [facility] Diagnoses 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 Diagnoses Elevated prostate specific antigen (PSA) Procedures PROSTATE BIOPSY GUKI PROSTATE NEEDLE BIOPSY ANY APPROACH US, TRANSRECTAL URNLS DIP STICK/TABLET RGNT AUTO W/O MICROSCOPY US GUIDANCE NEEDLE PLACEMENT IMG S&I [place] PA-C [address] [place] [address] [place] [id number] Referral ID Status Reason Start Date Expiration Date Visits Requested Visits Authorized [id number] Pending Review Auto-Generat ed Referral 03/24/2022 03/24/2023 1 1 T [facility] for referral (narrative)* Outpatient Procedure (Routine) - Pending Review Specialty Diagnoses / Procedures Referred By Contac t Referred To Contact [facility] Diagnoses 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) Dyspnea on exertion Essential hypertension Procedures ECHO ECHO TTHRC R-T 2D W/WOM-MODE COMPL SPEC&COLR Shanelle Yates APRN.TECHNICAL SUPPORT CONSULTANT 1 [facility] [address] [place] [address] [place] [id number] Referral ID Status Reason Start Date Expiration Date Visits Requested Visits Authorized [id number] Pending Review Auto-Generat ed Referral 06/18/2022 06/18/2023 1 1 [facility] for referral (narrative)* Outpatient Procedure (Routine) - Open Specialty Diagnoses / Procedures Referred By Contac t Referred To Contact [facility] Diagnoses Chest pain due to myocardial ischemia, unspecified ischemic chest pain type Procedures US CAROTID ARTERIES ANGELA [facility] DUPLEX SCAN EXTRACRANIAL ART COMPL BI STUDY Get [place] APRN.TECHNICAL SUPPORT CONSULTANT 1 [facility] [address] [place] [address] [facility] [place] [address] [place] [id number] Referral ID Status Reason Start Date Expiration Date V isits Requested Visits Authorized [id number] Open Auto-Generate d Referral 06/23/2022 06/23/2023 1 1 * MRI/CT (Routine) - Authorized Specialty Diagnoses / Procedures Referred By Contac t Referred To Contact CT IMAGING Diagnoses Chest pain due to myocardial ischemia, unspecified ischemic chest pain type Procedures CT CHEST WO IVCON DIAGNOSTIC COMPUTED TOMOGRAPHY THORAX W/O CNTRST Get F[place] APRN.TECHNICAL SUPPORT CONSULTANT 1 [facility] [address] [place] [address] Ct Imaging Referral ID Status Reason Start Date Expiration Date Visits Requested Visits Authorized [id number] Authorized Auto-Generat ed Referral 06/23/2022 07/23/2023 1 1 * Outpatient Procedure (Routine) - Denied Specialty Diagnoses / Procedures Referred By Contac t Referred To Contact [facility] Diagnoses SOB (shortness of breath) Procedures LUNG VOLUMES PLETHYSMOGRAPHY LUNG VOLUMES W/WO AIRWAY RESIST Get Fulton APRN.TECHNICAL SUPPORT CONSULTANT 1 [facility] [address] [place] [address] [facility] [place] [address] [place] [id number] Referral ID Status Reason Start Date Expiration Date V isits Requested Visits Authorized [id number] Denied Auto-Generate d Referral 06/23/2022 07/23/2023 1 0 * Outpatient Procedure (Routine) - Authorized Specialty Diagnoses / Procedures Referred By Contac t Referred To Contact [facility] Diagnoses SOB (shortness of breath) Procedures LUNG DIFFUSION CAPACITY (DLCO) DIFFUSING CAPACITY Get F[place]on APRN.TECHNICAL SUPPORT CONSULTANT 1 [facility] [address] [place] [address] [facility] [place] [address] [place] [id number] Referral ID Status Reason Start Date Expiration Date Visits Requested Visits Authorized [id number] Authorized Auto-Generat ed Referral 06/23/2022 07/23/2023 1 1 * Outpatient Procedure (Routine) - Authorized Specialty Diagnoses / Procedures Referred By Contac t Referred To [facility] Diagnoses SOB (shortness of breath) Procedures SPIROMETRY BASELINE ONLY SPMTRY W/VC EXPIRATORY DENISE W/WO MXML VOL VNTJ Get [place] APRN.TECHNICAL SUPPORT CONSULTANT [address] [facility] [address] [place] [address] Respiratory [place] [address] [place] [address] Referral ID Status Reason Start Date Expiration Date Visits Requested Visits Authorized [id number] Authorized Auto-Generat ed Referral 06/23/2022 07/23/2023 1 1 [facility] for referral (narrative)* Outpatient Procedure (Routine) - Pending Review Specialty Diagnoses / Procedures Referred By Contac t Referred To Contact [facility] Diagnoses Screening for colon cancer Procedures COLONOSCOPY SCREENING COLONOSCOPY FLX DX W/COLLJ SPEC WHEN PFRMD Cali Cordero MD [address] [place] [address] [facility] [place] [address] [place] [address] Referral ID Status Reason Start Date Expiration Date Visits Requested Visits Authorized [id number] Pending Review Auto-Generat ed Referral 08/12/2022 08/12/2023 1 1 [facility] for referral (narrative)* Diagnostic Procedure Only (Routine) - Authorized Specialty Diagnoses / Procedures Referred By Contac t Referred To Contact MOLECULAR & FUNCTIONAL IMAGING Diagnoses Prostate cancer (HCC) Procedures NM PET/CT PROSTATE WHOLE BODY IMAGING PET IMAGING CT ATTENUATION SKULL BASE MID-THIGH Jania Pozo MD [address] [place] [address] Molecular & Functional Imaging [address] [place], [place] [id number] Referral ID Status Reason Start Date Expiration Date Visits Requested Visits Authorized [id number] Authorized Auto-Generat ed Referral 06/08/2023 06/23/2024 1 1 T [facility] for referral (narrative)* Diagnostic Procedure Only (Routine) - Closed Specialty Diagnoses / Procedures Referred By Contac t Referred To Contact US IMAGING Diagnoses Neck pain Procedures US HEAD/NECK SOFT TISSUE OTHER US SOFT TISSUE HEAD & NECK REAL TIME IMGE DOCM Robson Robertson APRN.TECHNICAL SUPPORT CONSULTANT [address] [place] [address] Us Imaging [facility]95 Referral ID Status Reason Start Date Expiration Date V isits Requested Visits Authorized [id number] Closed Auto-Generate d Referral 03/05/2023 04/03/2024 1 1 T [facility] for referral (narrative)* Diagnostic Procedure Only (Routine) - Closed Specialty Diagnoses / Procedures Referred By Contac t Referred To Contact US IMAGING Diagnoses Nodule of skin of abdomen Procedures US SOFT TISSUE ABDOMEN US ABDOMINAL REAL TIME W/IMAGE LIMITED Robson Robertson APRN.TECHNICAL SUPPORT CONSULTANT [address] [place] [address] [place] [id number] Referral ID Status Reason Start Date Expiration Date V isits Requested Visits Authorized [id number] Closed Auto-Generate d Referral 08/18/2022 09/17/2023 1 1 [facility] for referral (narrative)* Diagnostic Procedure Only (Routine) - Closed Specialty Diagnoses / Procedures Referred By Contac t Referred To Contact MOLECULAR & FUNCTIONAL IMAGING Diagnoses Encounter for observation for other suspected diseases and conditions ruled out Prostate cancer (HCC) Procedures NM BONE WHOLE BODY BONE &/JOINT IMAGING WHOLE BODY Aris Tolbert DO [address] [place] [address] Molecular & Functional Imaging [address] [place] [address] Referral ID Status Reason Start Date Expiration Date V isits Requested Visits Authorized [id number] Closed Auto-Generate d Referral 08/03/2022 09/02/2023 1 1 [facility] for referral (narrative)* Diagnostic Procedure Only (Routine) - Closed Specialty Diagnoses / Procedures Referred By Contac t Referred To Contact XR IMAGING Diagnoses Right wrist pain Procedures XR WRIST GENERAL 3V PA/LAT/OBL RIGHT RADEX WRIST COMPLETE MINIMUM 3 VIEWS Olu Almendarez MD [address] [place] [address] [place] [id number] Referral ID Status Reason Start Date Expiration Date V isits Requested Visits Authorized [id number] Closed Auto-Generate d Referral 06/12/2024 07/12/2025 1 1 [facility] for referral (narrative)* Diagnostic Procedure Only (Routine) - Closed Specialty Diagnoses / Procedures Referred By Contac t Referred To Contact XR IMAGING Diagnoses Bilateral hip pain Procedures XR HIP BILATERAL 5V PEL/AP/LAT EACH HIP RADEX HIPS BILATERAL WITH PELVIS MINIMUM 5 VIEWS Robson Robertson, DEEPAK [address] [place] [address] [place] [address] Referral ID Status Reason Start Date Expiration Date V isits Requested Visits Authorized [id number] Closed Auto-Generate d Referral 01/10/2024 02/08/2025 1 1 [facility] for referral (narrative)* Outpatient Procedure (Routine) - New Request Specialty Diagnoses / Procedures Referred By Contac t Referred To Contact [facility] Diagnoses History of colonic polyps Screening for colon cancer Procedures COLONOSCOPY SCREENING COLONOSCOPY FLX DX W/COLLJ SPEC WHEN Debo Almanzar MD [address] [facility] [place] [address] [address] Referral ID Status Reason Start Date Expiration Date Visits Requested Visits Authorized [id number] New Request Auto-Generat ed Referral 06/27/2024 06/27/2025 1 1 * Outpatient Procedure (Routine) - Pending Review Specialty Diagnoses / Procedures Referred By Wang t Referred To Contact [facility] Diagnoses History of colonic polyps Screening for colon cancer Procedures COLONOSCOPY SCREENING COLONOSCOPY FLX DX W/COLLJ SPEC WHEN Debo Almanzar MD [address] [place] [address] [address] Referral ID Status Reason Start Date Expiration Date Visits Requested Visits Authorized [id number] Pending Review Auto-Generat ed Referral 06/26/2024 06/26/2025 1 1 [facility] for referral (narrative)* Diagnostic Procedure Only (Routine) - Closed Specialty Diagnoses / Procedures Referred By Wang Referred To Contact XR IMAGING Diagnoses Rib pain on right side Procedures XR RIBS/CHEST 3V AP RIB/OBLS/CXR RIGHT RADEX RIBS UNI W/POSTEROANT CH MINIMUM 3 VIEWS Cali Cordero MD [address] [place] [address] [place] [id number] Referral ID Status Reason Start Date Expiration Date V isits Requested Visits Authorized [id number] Closed Auto-Generate d Referral 01/06/2022 02/05/2023 1 1 [facility] for referral (narrative)* Diagnostic Procedure Only (Routine) - Authorized Specialty Diagnoses / Procedures Referred By Contac t Referred To Contact US IMAGING Diagnoses Abdominal aortic aneurysm (AAA) without rupture, unspecified part (HCC) Procedures US ABD AORTA US RETROPERITONEAL REAL TIME W/IMAGE LIMITED Gerri Curry APRN.TECHNICAL SUPPORT CONSULTANT [address] [place] [address] [place] [address] Referral ID Status Reason Start Date Expiration Date Visits Requested Visits Authorized [id number] Authorized Auto-Generat ed Referral 07/12/2024 08/11/2025 1 1 * Consult, Test, Treat (Routine) - Authorized Specialty Diagnoses / Procedures Referred By Katharineac t Referred To Contact Vascular Surgery Diagnoses Abdominal aortic aneurysm (AAA) without rupture, unspecified part (HCC) Procedures CONSULT TO VASCULAR SURGERY OFFICE/OUTPATIENT [facility] 60 MINUTES Gerri Curry APRN.TECHNICAL SUPPORT CONSULTANT [address] [place] [address] Referral ID Status Reason Start Date Expiration Date Visits Requested Visits Authorized [id number] Authorized PCP Requested Referral 07/12/2024 07/12/2025 1 1 [facility] for referral (narrative)* Outpatient Procedure (Routine) - Closed Specialty Diagnoses / Procedures Referred By Contac t Referred To Contact Diagnoses History of colonic polyps Screening for colon cancer Procedures COLONOSCOPY SCREENING COLONOSCOPY FLX DX W/COLLJ SPEC WHEN Debo Almanzar MD [address] [place] [address] [facility] [address] [place] [address] Referral ID Status Reason Start Date Expiration Date V isits Requested Visits Authorized [id number] Closed Auto-Generate d Referral 07/19/2024 09/16/2024 1 1 [facility] for referral (narrative)* Diagnostic Procedure Only (Routine) - Authorized Specialty Diagnoses / Procedures Referred By Contac t Referred To Contact [facility] Diagnoses 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) Procedures ECHO ECHO TTHRC R-T 2D W/WOM-MODE COMPL SPEC&COLR D Jere Rust OIL TREATER.TECHNICAL SUPPORT CONSULTANT [address] [place] [address] Heart [facility] [place] [address] [place] [address] Referral ID Status Reason Start Date Expiration Date V isits Requested Visits Authorized [id number] Authorized 09/04/2024 09/04/2025 1 1 * Diagnostic Procedure Only (Routine) - Authorized Specialty Diagnoses / Procedures Referred By Contact Referred To Contact MOLECULAR & FUNCTIONAL IMAGING Diagnoses 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) Procedures NM CARDIAC PERF STRESS/EXERCISE MYOCARDIAL SPECT MULTIPLE STUDIES Jere Rust, OIL TREATER.TECHNICAL SUPPORT CONSULTANT [address] [place] [address] Molecular & Functional Imaging [address] [place] [address] Referral ID Status Reason Start Date Expiration Date V isits Requested Visits Authorized [id number] Authorized 09/04/2024 11/03/2024 2 2 [facility] for referral (narrative)* Diagnostic Procedure Only (Routine) - Closed Specialty Diagnoses / Procedures Referred By Contac t Referred To Contact US IMAGING Diagnoses Epigastric pain Procedures US ABD RIGHT UPPER QUADRANT US ABDOMINAL REAL TIME W/IMAGE LIMITED Gerri Curry APRN.TECHNICAL SUPPORT CONSULTANT [address] [place] [address] [place] [id number] Referral ID Status Reason Start Date Expiration Date V isits Requested Visits Authorized [id number] Closed Auto-Generate d Referral 09/08/2024 10/07/2025 1 1 [facility] for referral (narrative)* Diagnostic Procedure Only (Routine) - Closed Specialty Diagnoses / Procedures Referred By Contac t Referred To Contact US IMAGING Diagnoses Epigastric pain Procedures US ABD RIGHT UPPER QUADRANT US ABDOMINAL REAL TIME W/IMAGE LIMITED Gerri Curry APRN.TECHNICAL SUPPORT CONSULTANT [address] [place] [address] [place] [id number] Referral ID Status Reason Start Date Expiration Date V isits Requested Visits Authorized [id number] Closed Auto-Generate d Referral 09/08/2024 10/07/2025 1 1 [facility] for referral (narrative)* Diagnostic Procedure Only (Routine) - Closed Specialty Diagnoses / Procedures Referred By Contac t Referred To Contact [facility] Diagnoses 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) Procedures ECHO ECHO TTHRC R-T 2D W/WOM-MODE COMPL SPEC&COLR D Jere Rust OIL TREATER.TECHNICAL SUPPORT CONSULTANT [address] [place] [address] [facility] [place] [address] [place] [id number] Referral ID Status Reason Start Date Expiration Date Visits Re quested Visits Authorized [id number] Closed 09/04/2024 09/04/2025 1 1 [facility] for referral (narrative)* Diagnostic Procedure Only (Routine) - Closed Specialty Diagnoses / Procedures Referred By Contact Referred To Contact MOLECULAR & FUNCTIONAL IMAGING Diagnoses 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 Phone: [facility] Narrative* Diagnostic Procedure Only (Routine) - Closed Specialty Diagnoses / Procedures Referred By Contac t Referred To Contact CT IMAGING Diagnoses Right lower quadrant abdominal pain Nausea Procedures CT ABD/PEL WO IVCON CT ABD & PELVIS W/O CONTRAST Robson Robertson APRN.TECHNICAL SUPPORT CONSULTANT [address] [place] [address] Ct Imaging Referral ID Status Reason Start Date Expiration Date Visits Re quested Visits Authorized [id number] Closed 02/09/2022 10/03/2022 1 1 [facility] for visit Narrative* Auth/Cert Specialty Diagnoses / Procedures [facility] Contact Diagnoses Stable angina (HCC) Dyspnea on exertion Stable angina (HCC) [I20.8] Dyspnea on exertion [R06.09] Procedures L HRT CATH W/NJX L VENTRICULOGRAPHY IMG S&I LEFT HEART CATH INTRAPROCEDURAL INJECT W/ LEFT VENTRICULOGRAPHY IMAGE SUPERVISION/INTERPRETATION [facility] [address] [facility] [place] [address] Referral ID Status Reason Start Date Expiration Date Visits Re quested Visits Authorized [id number] 1 1 [facility] for visit Narrative* Diagnostic Procedure Only (Routine) - Closed Specialty Diagnoses / Procedures [facility] Referred To Contact MOLECULAR & FUNCTIONAL IMAGING Diagnoses Prostate cancer (HCC) Procedures NM PET/CT PROSTATE WHOLE BODY IMAGING PET IMAGING CT ATTENUATION SKULL BASE MID-THIGH Jania Pozo MD [address] [place] [address] Molecular & Functional Imaging [address] [place] [address] Referral ID Status Reason Start Date Expiration Date V isits Requested Visits Authorized [id number] Closed Auto-Generate d Referral 06/08/2023 06/23/2024 1 1 [facility] for visit Narrative* Diagnostic Procedure Only (Routine) - Closed Specialty Diagnoses / Procedures Referred By Contac t Referred To Contact MOLECULAR & FUNCTIONAL IMAGING Diagnoses Encounter for observation for other suspected diseases and conditions ruled out Prostate cancer (HCC) Procedures NM BONE WHOLE BODY BONE &/JOINT IMAGING WHOLE BODY TomaszAris purcell [address] [place] [address] Molecular & Functional Imaging [address] [place] [address] Referral ID Status Reason Start Date Expiration Date V isits Requested Visits Authorized [id number] Closed Auto-Generate d Referral 08/03/2022 09/02/2023 1 1 [facility] for visit Narrative* Diagnostic Procedure Only (Routine) - Closed Specialty Diagnoses / Procedures Referred By Contac t Referred To Contact XR IMAGING Diagnoses Right wrist pain Procedures XR WRIST GENERAL 3V PA/LAT/OBL RIGHT RADEX WRIST COMPLETE MINIMUM 3 VIEWS Olu Almendarez MD [address] [place] [id number] [place] [address] Referral ID Status Reason Start Date Expiration Date V isits Requested Visits Authorized [id number] Closed Auto-Generate d Referral 06/12/2024 07/12/2025 1 1 [facility] for visit Narrative* Diagnostic Procedure Only (Routine) - Closed Specialty Diagnoses / Procedures Referred By Contac t Referred To Contact XR IMAGING Diagnoses Bilateral hip pain Procedures XR HIP BILATERAL 5V PEL/AP/LAT EACH HIP RADEX HIPS BILATERAL WITH PELVIS MINIMUM 5 VIEWS Robson Robertson, KATT.TECHNICAL SUPPORT CONSULTANT [address] [place] [address] [place] [address] Referral ID Status Reason Start Date Expiration Date V isits Requested Visits Authorized [id number] Closed Auto-Generate d Referral 01/10/2024 02/08/2025 1 1 [facility] for visit Narrative* Diagnostic Procedure Only (Routine) - Closed Specialty Diagnoses / Procedures Referred By Contac t Referred To Contact XR IMAGING Diagnoses Rib pain on right side Procedures XR RIBS/CHEST 3V AP RIB/OBLS/CXR RIGHT RADEX RIBS UNI W/POSTEROANT CH MINIMUM 3 VIEWS Cali Cordero MD [address] [place] [address] [place] [address] Referral ID Status Reason Start Date Expiration Date V isits Requested Visits Authorized [id number] Closed Auto-Generate d Referral 01/06/2022 02/05/2023 1 1 [facility] for visit Narrative* Outpatient Procedure (Routine) - Closed Specialty Diagnoses / Procedures Referred By Contac t Referred To Contact Diagnoses History of colonic polyps Screening for colon cancer Procedures COLONOSCOPY SCREENING COLONOSCOPY FLX DX W/COLLJ SPEC WHEN Debo Almanzar MD [address] [place] [address] [facility] [address] [place] [address] Referral ID Status Reason Start Date Expiration Date V isits Requested Visits Authorized [id number] Closed Auto-Generate d Referral 07/19/2024 09/16/2024 1 1 [facility] for visit Narrative* Diagnostic Procedure Only (Routine) - Closed Specialty Diagnoses / Procedures Referred By Wang t Referred To Contact US IMAGING Diagnoses Abdominal aortic aneurysm (AAA) without rupture, unspecified part (HCC) Procedures US ABD AORTA US RETROPERITONEAL REAL TIME W/IMAGE LIMITED Gerri Curry, KATT.TECHNICAL SUPPORT CONSULTANT [address] [place] [address] [place] [address] Referral ID Status Reason Start Date Expiration Date V isits Requested Visits Authorized [id number] Closed Auto-Generate d Referral 07/12/2024 08/11/2025 1 1 [facility] for visit Narrative* Diagnostic Procedure Only (Routine) - Closed Specialty Diagnoses / Procedures Referred By Contact Referred To Contact MOLECULAR & FUNCTIONAL IMAGING Diagnoses 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) Procedures NM CARDIAC PERF STRESS/EXERCISE MYOCARDIAL SPECT MULTIPLE STUDIES Jere Rust, OIL TREATER.TECHNICAL SUPPORT CONSULTANT [address] [place] [address] Molecular & Functional Imaging [address] [place] [address] Referral ID Status Reason Start Date Expiration Date Visits Re quested Visits Authorized [id number] Closed 09/04/2024 11/03/2024 [facility] Diagnostic Procedure Only (Routine) - Closed Specialty Diagnoses / Procedures Referred By Wang ellsworth Referred To Contact [facility] Diagnoses 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) Procedures ECHO ECHO TTHRC R-T 2D W/WOM-MODE COMPL SPEC&COLR D Jere Rust, OIL TREATER.TECHNICAL SUPPORT CONSULTANT [address] [place] [address] [facility] [place] [address] [place] [address] Referral ID Status Reason Start Date Expiration Date Visits Re quested Visits Authorized [id number] Closed 09/04/2024 09/04/2025 1 1 [facility] Medications Administered Section Inactive Administered Medications - up to 3 most recent administrations Medication Order MAR Action Action Date Dose Rate Site fentaNYL 50 mcg/mL injection (SUBLIMAZE) X (OR/PROCEDURE) PRN, Starting on Wed06/10/22 at 0959, Until Rivka 06/11/22 at 0304, Intraprocedure Given 06/10/2022 9:59 AM EDT 25 mcg midazolam (PF) injection (VERSED) X (OR/PROCEDURE) PRN, Starting on Wed06/10/22 at 1000, Until Rivka 06/11/22 at 0304, Intraprocedure Given 06/10/2022 10:00 AM EDT 1 mg Inactive Administered Medications - up to 3 most recent administrations Medication Order MAR Action Action Date Dose Rate Site leuprolide acetate (6 month) 45 mg IM syringe kit (LUPRON) 45 mg, INTRAMUSCULAR, ONCE, 1 dose, On Rivka 07/29/23 at 1630, Hazardous Chemotherapy Drug: Use appropriate PPE. Given 07/30/2023 11:27 AM EDT 45 mg Buttocks, Left Reason for Referral Specialty Diagnoses / Procedures Referred By Wang ellsworth Referred To Contact Urology Diagnoses Elevated PSA Procedures CONSULT TO UROLOGY OFFICE/OUTPATIENT NEW HIGH MDM 60-74 MINUTES Shanelle Steve, OIL TREATER.TECHNICAL SUPPORT CONSULTANT [address] [place] [address] Referral ID Status Reason Start Date Expiration Date Visits Requested Visits Authorized [id number] Authorized PCP Requested Referral 06/18/2022 06/18/2023 1 1 Specialty Diagnoses / Procedures Referred By Contac t Referred To Contact Endocrinology Diagnoses Type 2 diabetes mellitus without complication, without long-term current use of insulin (HCC) Procedures CONSULT TO ENDOCRINOLOGY OFFICE/OUTPATIENT NEW HIGH MDM 60-74 MINUTES Shanelle Steve, OIL TREATER.TECHNICAL SUPPORT CONSULTANT 1 [facility], [place] [address] [place] [address] Referral ID Status Reason Start Date Expiration Date Visits Requested Visits Authorized [id number] Authorized PCP Requested Referral 06/18/2022 06/18/2023 1 1 Specialty Diagnoses / Procedures Referred By Contac t Referred To Contact CT IMAGING Diagnoses Lung nodules Procedures CT CHEST WO IVCON DIAGNOSTIC COMPUTED TOMOGRAPHY THORAX W/O ANTONIORST Get F[place], OIL TREATER.TECHNICAL SUPPORT CONSULTANT 1 [facility] [address] [place] [address] Ct Imaging Referral ID Status Reason Start Date Expiration Date Visits Requested Visits Authorized [id number] Pending Review Auto-Generat ed Referral 07/02/2023 08/01/2023 1 1 Specialty Diagnoses / Procedures Referred By Contac t Referred To Contact CT IMAGING Diagnoses Prostate cancer (HCC) Procedures CT PELVIS W IVCON CT PELVIS W/CONTRAST MATERIAL Aris Tolbert, DO [address] [place] [address] Ct Imaging Referral ID Status Reason Start Date Expiration Date Visits Requested Visits Authorized [id number] Pending Review Auto-Generat ed Referral 08/26/2023 1 1 Specialty Diagnoses / Procedures Referred By Contac t Referred To Contact MR IMAGING Diagnoses Prostate cancer (HCC) Procedures MRI PROSTATE WO/W IVCON MRI PELVIS W/O & W/CONTRAST MATERIAL Aris Tolbert, DO [address] [place] [address] Mr Imaging Referral ID Status Reason Start Date Expiration Date Visits Requested Visits Authorized [id number] Authorized Auto-Generat ed Referral 08/05/2022 09/04/2023 1 1 Specialty Diagnoses / Procedures Referred By Contac t Referred To Contact Diagnoses Bradycardia Procedures CONSULT TO ELECTROPHYSIOLOGY OFFICE/OUTPATIENT NEW HIGH MDM 60-74 MINUTES [place] OIL TREATER.TECHNICAL SUPPORT CONSULTANT [address] [place] [address] Referral ID Status Reason Start Date Expiration Date Visits Requested Visits Authorized [id number] Authorized PCP Requested Referral 11/16/2022 11/16/2023 1 1 Specialty Diagnoses / Procedures Referred By Contac t Referred To Contact [facility] Diagnoses PAF (paroxysmal atrial fibrillation) (HCC) Procedures ECG COMPLETE ECG ROUTINE ECG W/LEAST 12 LDS W/I&R [place] APRN.TECHNICAL SUPPORT CONSULTANT [address] [place] [address] [facility] [place] [address] [place] [address] Referral ID Status Reason Start Date Expiration Date Visits Requested Visits Authorized [id number] Pending Review Auto-Generat ed Referral 11/16/2022 11/16/2023 1 1 Specialty Diagnoses / Procedures Referred By Contac t Referred To Contact CT IMAGING Diagnoses Pulmonary nodule Lung nodules Procedures CT CHEST WO IVCON DIAGNOSTIC COMPUTED TOMOGRAPHY THORAX W/O Robson Miguel APRN.TECHNICAL SUPPORT CONSULTANT [address] [place] [address] Ct Imaging Referral ID Status Reason Start Date Expiration Date Visits Requested Visits Authorized [id number] Authorized Auto-Generat ed Referral 03/05/2023 04/03/2024 1 1 Specialty Diagnoses / Procedures Referred By Contac t Referred To Contact US IMAGING Diagnoses Neck pain Procedures US HEAD/NECK SOFT TISSUE OTHER US SOFT TISSUE HEAD & NECK REAL TIME IMGE DOCRobson Alex APRN.TECHNICAL SUPPORT CONSULTANT [address] [place] [address] Us Imaging Referral ID Status Reason Start Date Expiration Date Visits Requested Visits Authorized [id number] Authorized Auto-Generat ed Referral 03/05/2023 04/03/2024 1 1 Specialty Diagnoses / Procedures Referred By Contac t Referred To Contact CT IMAGING Diagnoses Localized enlarged lymph nodes Procedures CT PELVIS W IVCON CT PELVIS W/CONTRAST MATERIAL Essie Nathan PA-C [address] [place] [address] [place] [address] Referral ID Status Reason Start Date Expiration Date Visits Requested Visits Authorized [id number] Pending Review Auto-Generat ed Referral 08/28/2023 1 1 Specialty Diagnoses / Procedures Referred By Contac t Referred To Contact CT IMAGING Diagnoses Prostate cancer (HCC) Procedures CT PELVIS W IVCON CT PELVIS W/CONTRAST MATERIAL Aris Tolbert, [address] [place] [address] [place] [address] Referral ID Status Reason Start Date Expiration Date V isits Requested Visits Authorized [id number] Closed Auto-Generate d Referral 07/27/2022 08/26/2023 1 1 Specialty Diagnoses / Procedures Referred By Contac t Referred To Contact CT IMAGING Diagnoses Pulmonary nodule Lung nodules Procedures CT CHEST WO IVCON DIAGNOSTIC COMPUTED TOMOGRAPHY THORAX W/O [facility] Robson Robertson APRN.TECHNICAL SUPPORT CONSULTANT [address] [place] [address] Ct Imaging [facility]95 Referral ID Status Reason Start Date Expiration Date V isits Requested Visits Authorized [id number] Closed Auto-Generate d Referral 03/05/2023 04/03/2024 1 1 Specialty Diagnoses / Procedures Referred By Contac t Referred To Contact [facility] Diagnoses Bilateral hip pain Procedures CONSULT TO PHYSICAL THERAPY PHYSICAL THERAPY EVALUATION HIGH COMPLEX 45 MINS Robson Robertson, OIL TREATER.TECHNICAL SUPPORT CONSULTANT [address] [place] [address] [facility] [place] [address] [place] [address] Referral ID Status Reason Start Date Expiration Date Visits Requested Visits Authorized [id number] Authorized Auto-Generat ed Referral 10/04/2023 10/03/2024 1 1 Specialty Diagnoses / Procedures Referred By Contac t Referred To Contact XR IMAGING Diagnoses Bilateral hip pain Procedures XR HIP BILATERAL 5V PEL/AP/LAT EACH HIP RADEX HIPS BILATERAL WITH PELVIS MINIMUM 5 VIEWS Robson Robertson APRN.TECHNICAL SUPPORT CONSULTANT [address] [place] [address] Xr Imaging [id number] Referral ID Status Reason Start Date Expiration Date V isits Requested Visits Authorized [id number] Closed Auto-Generate d Referral 01/10/2024 02/08/2025 1 1 Specialty Diagnoses / Procedures Referred By Contac t Referred To Contact [facility] Diagnoses Bilateral hip pain Procedures PT REHAB FOLLOW UP ORDER PT REHAB FOLLOW UP ORDER THERAPEUTIC EXERCISES RE, EA 15 MIN. Pt [facility] [address] [place] [address] [facility] [place] [address] [place] [id number] Referral ID Status Reason Start Date Expiration Date Visits Requested Visits Authorized [id number] Pending Review PCP Requested Referral Auto-Generate d Referral 02/08/2024 05/08/2024 1 1 Specialty Diagnoses / Procedures Referred By Contac t Referred To Contact General Surgery Diagnoses History of colonic polyps Screening for colon cancer Procedures CONSULT TO GENERAL SURGERY OFFICE/OUTPATIENT [facility] 60 MINUTES Robson Robertson APRN.TECHNICAL SUPPORT CONSULTANT [address] [place] [address] Referral ID Status Reason Start Date Expiration Date Visits Requested Visits Authorized [id number] Authorized PCP Requested Referral 06/23/2024 06/23/2025 1 1 Specialty Diagnoses / Procedures Referred By Contac t Referred To Contact Vascular Surgery Diagnoses Abdominal aortic aneurysm (AAA) without rupture, unspecified part (HCC) Procedures CONSULT TO VASCULAR SURGERY OFFICE/OUTPATIENT [facility] MDM 60 MINUTES Gerri Curry APRN.TECHNICAL SUPPORT CONSULTANT [address] [place] [address] Referral ID Status Reason Start Date Expiration Date Visits Requested Visits Authorized [id number] Authorized PCP Requested Referral 07/27/2025 1 1 Chief Complaint and Reason for Visit Chief Complaint Admit Date 5 M FU February 27, 2025 3:15p m INT LAB ORDER April 04, 2025 2:46p m Reason for Visit Admit Date Obesity February 27, 2025 3:15p m Severe persistent asthma February 27, 2025 3:15pm Smoking greater than 20 pack years February 022024 3:15pm Chief Complaint Injection Injection S/P CABG S/P CABG Chief Complaint follow up for inject ion Injection Injection Reason for Visit Obesity Severe persistent asthma Chief Complaint Asthma sereve persis tent asthma Atherosclerotic heart disease of nome coronary a Chief Complaint Admit Date 5 M FU February 27, 2025 3:15p m Chief Complaint Admit Date 5 M FU February 27, 2025 3:15p m INT LAB ORDER April 04, 2025 2:46p m 6 wk FU May 01, 2025 3:21 pm Reason for Visit Admit Date Obesity February 27, 2025 3:15p m Severe persistent asthma February 27, 2025 3:15pm Smoking greater than 20 pack years February 022024 3:15pm Obesity May 01, 2025 3:21 pm Severe persistent asthma May 01, 2025 3:21pm Smoking greater than 20 pack years May 01, 2025 3:21pm Chief Complaint Admit Date 5 M FU February 27, 2025 3:15p m INT LAB ORDER April 04, 2025 2:46p m 6 wk FU May 01, 2025 3:21 pm J44.9 - Chronic obstructive pulmonary di sease, uns May 08, 2025 9:25am Reason for Visit Admit Date Obesity February 27, 2025 3:15p m Severe persistent asthma February 27, 2025 3:15pm Smoking greater than 20 pack years February 022024 3:15pm COPD (chronic obstructive pulmonary dise ase) May 01, 2025 3:21pm Obesity May 01, 2025 3:21 pm Severe persistent asthma May 01, 2025 3:21pm Smoking greater than 20 pack years May 01, 2025 3:21pm Family History No Family History Records Found Relationship Condition Age at Onset Recorded Date/T marilee Not Specified High blood cholesterol Unknown Cardiac disease Unknown Myocardial infarction Unknown Disorder of respiratory system Unknown Asthma Unknown brother Coronary artery disease Unknown mother Malignant neoplasm Unknown father Pulmonary emphysema Unknown Advance Directives No Advanced Directives Records Found Advance Directive Response Recorded Date/ Time Advance Directives No November 1:35pm Living Will No December 01, 2 020 1:35pm Power of Vacuum Metalizing Supervisor No December 01, 2019 1:35pm Advance Directive Response Recorded Date/ Time Advance Directives No November 2:35pm Living Will No December 01, 2 020 2:35pm Power of Vacuum Metalizing Supervisor No December 01, 2019 2:35pm Advance Directive Response Recorded Date/ Time Advance Directives No November 2:35pm Summary Purpose Additional Source Comments Source Comments (unrecognize d section and content) In the event this informatio n is protected by the Federal Confidentiality of Alcohol and Drug Abuse Patient Records regulations: The Federal rules restrict any use of the information to criminally investigate or prosecute any alcohol or drug abuse patient.[facility] the event this information is protected by the Federal Confidentiality of Alcohol and Drug Abuse Patient Records regulations: The Federal rules restrict any use of the information to criminally investigate or prosecute any alcohol or drug abuse patient.[facility] CenterIn the event this information is protected by the Federal Confidentiality of Alcohol and Drug Abuse Patient Records regulations: The Federal rules restrict any use of the information to criminally investigate or prosecute any alcohol or drug abuse patient.[facility] CenterIn the event this information is protected by the Federal Confidentiality of Alcohol and Drug Abuse Patient Records regulations: The Federal rules restrict any use of the information to criminally investigate or prosecute any alcohol or drug abuse patient.[facility] CenterIn the event this information is protected by the Federal Confidentiality of Alcohol and Drug Abuse Patient Records regulations: The Federal rules restrict any use of the information to criminally investigate or prosecute any alcohol or drug abuse patient.[facility] CenterIn the event this information is protected by the Federal Confidentiality of Alcohol and Drug Abuse Patient Records regulations: The Federal rules restrict any use of the information to criminally investigate or prosecute any alcohol or drug abuse patient.[facility] CenterIn the event this information is protected by the Federal Confidentiality of Alcohol and Drug Abuse Patient Records regulations: The Federal rules restrict any use of the information to criminally investigate or prosecute any alcohol or drug abuse patient.[facility] CenterIn the event this information is protected by the Federal Confidentiality of Alcohol and Drug Abuse Patient Records regulations: The Federal rules restrict any use of the information to criminally investigate or prosecute any alcohol or drug abuse patient.[facility] CenterIn the event this information is protected by the Federal Confidentiality of Alcohol and Drug Abuse Patient Records regulations: The Federal rules restrict any use of the information to criminally investigate or prosecute any alcohol or drug abuse patient.[facility] CenterIn the event this information is protected by the Federal Confidentiality of Alcohol and Drug Abuse Patient Records regulations: The Federal rules restrict any use of the information to criminally investigate or prosecute any alcohol or drug abuse patient.[facility] CenterIn the event this information is protected by the Federal Confidentiality of Alcohol and Drug Abuse Patient Records regulations: The Federal rules restrict any use of the information to criminally investigate or prosecute any alcohol or drug abuse patient.[facility] CenterIn the event this information is protected by the Federal Confidentiality of Alcohol and Drug Abuse Patient Records regulations: The Federal rules restrict any use of the information to criminally investigate or prosecute any alcohol or drug abuse patient.[facility] CenterIn the event this information is protected by the Federal Confidentiality of Alcohol and Drug Abuse Patient Records regulations: The Federal rules restrict any use of the information to criminally investigate or prosecute any alcohol or drug abuse patient.[facility] CenterIn the event this information is protected by the Federal Confidentiality of Alcohol and Drug Abuse Patient Records regulations: The Federal rules restrict any use of the information to criminally investigate or prosecute any alcohol or drug abuse patient.[facility] CenterIn the event this information is protected by the Federal Confidentiality of Alcohol and Drug Abuse Patient Records regulations: The Federal rules restrict any use of the information to criminally investigate or prosecute any alcohol or drug abuse patient.[facility] CenterIn the event this information is protected by the Federal Confidentiality of Alcohol and Drug Abuse Patient Records regulations: The Federal rules restrict any use of the information to criminally investigate or prosecute any alcohol or drug abuse patient.[facility] CenterIn the event this information is protected by the Federal Confidentiality of Alcohol and Drug Abuse Patient Records regulations: The Federal rules restrict any use of the information to criminally investigate or prosecute any alcohol or drug abuse patient.[facility] CenterIn the event this information is protected by the Federal Confidentiality of Alcohol and Drug Abuse Patient Records regulations: The Federal rules restrict any use of the information to criminally investigate or prosecute any alcohol or drug abuse patient.[facility] CenterIn the event this information is protected by the Federal Confidentiality of Alcohol and Drug Abuse Patient Records regulations: The Federal rules restrict any use of the information to criminally investigate or prosecute any alcohol or drug abuse patient.[facility] CenterIn the event this information is protected by the Federal Confidentiality of Alcohol and Drug Abuse Patient Records regulations: The Federal rules restrict any use of the information to criminally investigate or prosecute any alcohol or drug abuse patient.[facility] CenterIn the event this information is protected by the Federal Confidentiality of Alcohol and Drug Abuse Patient Records regulations: The Federal rules restrict any use of the information to criminally investigate or prosecute any alcohol or drug abuse patient.[facility] CenterIn the event this information is protected by the Federal Confidentiality of Alcohol and Drug Abuse Patient Records regulations: The Federal rules restrict any use of the information to criminally investigate or prosecute any alcohol or drug abuse patient.[facility] CenterIn the event this information is protected by the Federal Confidentiality of Alcohol and Drug Abuse Patient Records regulations: The Federal rules restrict any use of the information to criminally investigate or prosecute any alcohol or drug abuse patient.[facility] CenterIn the event this information is protected by the Federal Confidentiality of Alcohol and Drug Abuse Patient Records regulations: The Federal rules restrict any use of the information to criminally investigate or prosecute any alcohol or drug abuse patient.[facility] CenterIn the event this information is protected by the Federal Confidentiality of Alcohol and Drug Abuse Patient Records regulations: The Federal rules restrict any use of the information to criminally investigate or prosecute any alcohol or drug abuse patient.[facility] CenterIn the event this information is protected by the Federal Confidentiality of Alcohol and Drug Abuse Patient Records regulations: The Federal rules restrict any use of the information to criminally investigate or prosecute any alcohol or drug abuse patient.[facility] CenterIn the event this information is protected by the Federal Confidentiality of Alcohol and Drug Abuse Patient Records regulations: The Federal rules restrict any use of the information to criminally investigate or prosecute any alcohol or drug abuse patient.[facility] CenterIn the event this information is protected by the Federal Confidentiality of Alcohol and Drug Abuse Patient Records regulations: The Federal rules restrict any use of the information to criminally investigate or prosecute any alcohol or drug abuse patient.[facility] CenterIn the event this information is protected by the Federal Confidentiality of Alcohol and Drug Abuse Patient Records regulations: The Federal rules restrict any use of the information to criminally investigate or prosecute any alcohol or drug abuse patient.[facility] CenterIn the event this information is protected by the Federal Confidentiality of Alcohol and Drug Abuse Patient Records regulations: The Federal rules restrict any use of the information to criminally investigate or prosecute any alcohol or drug abuse patient.[facility] CenterIn the event this information is protected by the Federal Confidentiality of Alcohol and Drug Abuse Patient Records regulations: The Federal rules restrict any use of the information to criminally investigate or prosecute any alcohol or drug abuse patient.[facility] CenterIn the event this information is protected by the Federal Confidentiality of Alcohol and Drug Abuse Patient Records regulations: The Federal rules restrict any use of the information to criminally investigate or prosecute any alcohol or drug abuse patient.[facility] CenterIn the event this information is protected by the Federal Confidentiality of Alcohol and Drug Abuse Patient Records regulations: The Federal rules restrict any use of the information to criminally investigate or prosecute any alcohol or drug abuse patient.[facility] CenterIn the event this information is protected by the Federal Confidentiality of Alcohol and Drug Abuse Patient Records regulations: The Federal rules restrict any use of the information to criminally investigate or prosecute any alcohol or drug abuse patient.[facility] CenterIn the event this information is protected by the Federal Confidentiality of Alcohol and Drug Abuse Patient Records regulations: The Federal rules restrict any use of the information to criminally investigate or prosecute any alcohol or drug abuse patient.[facility] CenterIn the event this information is protected by the Federal Confidentiality of Alcohol and Drug Abuse Patient Records regulations: The Federal rules restrict any use of the information to criminally investigate or prosecute any alcohol or drug abuse patient.[facility] CenterIn the event this information is protected by the Federal Confidentiality of Alcohol and Drug Abuse Patient Records regulations: The Federal rules restrict any use of the information to criminally investigate or prosecute any alcohol or drug abuse patient.[facility] CenterIn the event this information is protected by the Federal Confidentiality of Alcohol and Drug Abuse Patient Records regulations: The Federal rules restrict any use of the information to criminally investigate or prosecute any alcohol or drug abuse patient.[facility] CenterIn the event this information is protected by the Federal Confidentiality of Alcohol and Drug Abuse Patient Records regulations: The Federal rules restrict any use of the information to criminally investigate or prosecute any alcohol or drug abuse patient.[facility] CenterIn the event this information is protected by the Federal Confidentiality of Alcohol and Drug Abuse Patient Records regulations: The Federal rules restrict any use of the information to criminally investigate or prosecute any alcohol or drug abuse patient.[facility] CenterIn the event this information is protected by the Federal Confidentiality of Alcohol and Drug Abuse Patient Records regulations: The Federal rules restrict any use of the information to criminally investigate or prosecute any alcohol or drug abuse patient.[facility] CenterIn the event this information is protected by the Federal Confidentiality of Alcohol and Drug Abuse Patient Records regulations: The Federal rules restrict any use of the information to criminally investigate or prosecute any alcohol or drug abuse patient.[facility] CenterIn the event this information is protected by the Federal Confidentiality of Alcohol and Drug Abuse Patient Records regulations: The Federal rules restrict any use of the information to criminally investigate or prosecute any alcohol or drug abuse patient.[facility] CenterIn the event this information is protected by the Federal Confidentiality of Alcohol and Drug Abuse Patient Records regulations: The Federal rules restrict any use of the information to criminally investigate or prosecute any alcohol or drug abuse patient.[facility] CenterIn the event this information is protected by the Federal Confidentiality of Alcohol and Drug Abuse Patient Records regulations: The Federal rules restrict any use of the information to criminally investigate or prosecute any alcohol or drug abuse patient.[facility] CenterIn the event this information is protected by the Federal Confidentiality of Alcohol and Drug Abuse Patient Records regulations: The Federal rules restrict any use of the information to criminally investigate or prosecute any alcohol or drug abuse patient.[facility] CenterIn the event this information is protected by the Federal Confidentiality of Alcohol and Drug Abuse Patient Records regulations: The Federal rules restrict any use of the information to criminally investigate or prosecute any alcohol or drug abuse patient.[facility] CenterIn the event this information is protected by the Federal Confidentiality of Alcohol and Drug Abuse Patient Records regulations: The Federal rules restrict any use of the information to criminally investigate or prosecute any alcohol or drug abuse patient.[facility] CenterIn the event this information is protected by the Federal Confidentiality of Alcohol and Drug Abuse Patient Records regulations: The Federal rules restrict any use of the information to criminally investigate or prosecute any alcohol or drug abuse patient.[facility] CenterIn the event this information is protected by the Federal Confidentiality of Alcohol and Drug Abuse Patient Records regulations: The Federal rules restrict any use of the information to criminally investigate or prosecute any alcohol or drug abuse patient.[facility] CenterIn the event this information is protected by the Federal Confidentiality of Alcohol and Drug Abuse Patient Records regulations: The Federal rules restrict any use of the information to criminally investigate or prosecute any alcohol or drug abuse patient.[facility] CenterIn the event this information is protected by the Federal Confidentiality of Alcohol and Drug Abuse Patient Records regulations: The Federal rules restrict any use of the information to criminally investigate or prosecute any alcohol or drug abuse patient.[facility] CenterIn the event this information is protected by the Federal Confidentiality of Alcohol and Drug Abuse Patient Records regulations: The Federal rules restrict any use of the information to criminally investigate or prosecute any alcohol or drug abuse patient.[facility] CenterIn the event this information is protected by the Federal Confidentiality of Alcohol and Drug Abuse Patient Records regulations: The Federal rules restrict any use of the information to criminally investigate or prosecute any alcohol or drug abuse patient.[facility] CenterIn the event this information is protected by the Federal Confidentiality of Alcohol and Drug Abuse Patient Records regulations: The Federal rules restrict any use of the information to criminally investigate or prosecute any alcohol or drug abuse patient.[facility] CenterIn the event this information is protected by the Federal Confidentiality of Alcohol and Drug Abuse Patient Records regulations: The Federal rules restrict any use of the information to criminally investigate or prosecute any alcohol or drug abuse patient.[facility] CenterIn the event this information is protected by the Federal Confidentiality of Alcohol and Drug Abuse Patient Records regulations: The Federal rules restrict any use of the information to criminally investigate or prosecute any alcohol or drug abuse patient.[facility] CenterIn the event this information is protected by the Federal Confidentiality of Alcohol and Drug Abuse Patient Records regulations: The Federal rules restrict any use of the information to criminally investigate or prosecute any alcohol or drug abuse patient.[facility] CenterIn the event this information is protected by the Federal Confidentiality of Alcohol and Drug Abuse Patient Records regulations: The Federal rules restrict any use of the information to criminally investigate or prosecute any alcohol or drug abuse patient.[facility] CenterIn the event this information is protected by the Federal Confidentiality of Alcohol and Drug Abuse Patient Records regulations: The Federal rules restrict any use of the information to criminally investigate or prosecute any alcohol or drug abuse patient.[facility] CenterIn the event this information is protected by the Federal Confidentiality of Alcohol and Drug Abuse Patient Records regulations: The Federal rules restrict any use of the information to criminally investigate or prosecute any alcohol or drug abuse patient.[facility] CenterIn the event this information is protected by the Federal Confidentiality of Alcohol and Drug Abuse Patient Records regulations: The Federal rules restrict any use of the information to criminally investigate or prosecute any alcohol or drug abuse patient.[facility] CenterIn the event this information is protected by the Federal Confidentiality of Alcohol and Drug Abuse Patient Records regulations: The Federal rules restrict any use of the information to criminally investigate or prosecute any alcohol or drug abuse patient.[facility] CenterIn the event this information is protected by the Federal Confidentiality of Alcohol and Drug Abuse Patient Records regulations: The Federal rules restrict any use of the information to criminally investigate or prosecute any alcohol or drug abuse patient.[facility] CenterIn the event this information is protected by the Federal Confidentiality of Alcohol and Drug Abuse Patient Records regulations: The Federal rules restrict any use of the information to criminally investigate or prosecute any alcohol or drug abuse patient.[facility] CenterIn the event this information is protected by the Federal Confidentiality of Alcohol and Drug Abuse Patient Records regulations: The Federal rules restrict any use of the information to criminally investigate or prosecute any alcohol or drug abuse patient.[facility] CenterIn the event this information is protected by the Federal Confidentiality of Alcohol and Drug Abuse Patient Records regulations: The Federal rules restrict any use of the information to criminally investigate or prosecute any alcohol or drug abuse patient.[facility] CenterIn the event this information is protected by the Federal Confidentiality of Alcohol and Drug Abuse Patient Records regulations: The Federal rules restrict any use of the information to criminally investigate or prosecute any alcohol or drug abuse patient.[facility] CenterIn the event this information is protected by the Federal Confidentiality of Alcohol and Drug Abuse Patient Records regulations: The Federal rules restrict any use of the information to criminally investigate or prosecute any alcohol or drug abuse patient.[facility] CenterIn the event this information is protected by the Federal Confidentiality of Alcohol and Drug Abuse Patient Records regulations: The Federal rules restrict any use of the information to criminally investigate or prosecute any alcohol or drug abuse patient.[facility] CenterIn the event this information is protected by the Federal Confidentiality of Alcohol and Drug Abuse Patient Records regulations: The Federal rules restrict any use of the information to criminally investigate or prosecute any alcohol or drug abuse patient.[facility] CenterIn the event this information is protected by the Federal Confidentiality of Alcohol and Drug Abuse Patient Records regulations: The Federal rules restrict any use of the information to criminally investigate or prosecute any alcohol or drug abuse patient.[facility] CenterIn the event this information is protected by the Federal Confidentiality of Alcohol and Drug Abuse Patient Records regulations: The Federal rules restrict any use of the information to criminally investigate or prosecute any alcohol or drug abuse patient.[facility] CenterIn the event this information is protected by the Federal Confidentiality of Alcohol and Drug Abuse Patient Records regulations: The Federal rules restrict any use of the information to criminally investigate or prosecute any alcohol or drug abuse patient.[facility] CenterIn the event this information is protected by the Federal Confidentiality of Alcohol and Drug Abuse Patient Records regulations: The Federal rules restrict any use of the information to criminally investigate or prosecute any alcohol or drug abuse patient.[facility] CenterIn the event this information is protected by the Federal Confidentiality of Alcohol and Drug Abuse Patient Records regulations: The Federal rules restrict any use of the information to criminally investigate or prosecute any alcohol or drug abuse patient.[facility] CenterIn the event this information is protected by the Federal Confidentiality of Alcohol and Drug Abuse Patient Records regulations: The Federal rules restrict any use of the information to criminally investigate or prosecute any alcohol or drug abuse patient.[facility] CenterIn the event this information is protected by the Federal Confidentiality of Alcohol and Drug Abuse Patient Records regulations: The Federal rules restrict any use of the information to criminally investigate or prosecute any alcohol or drug abuse patient.[facility] CenterIn the event this information is protected by the Federal Confidentiality of Alcohol and Drug Abuse Patient Records regulations: The Federal rules restrict any use of the information to criminally investigate or prosecute any alcohol or drug abuse patient.[facility] CenterIn the event this information is protected by the Federal Confidentiality of Alcohol and Drug Abuse Patient Records regulations: The Federal rules restrict any use of the information to criminally investigate or prosecute any alcohol or drug abuse patient.[facility] CenterIn the event this information is protected by the Federal Confidentiality of Alcohol and Drug Abuse Patient Records regulations: The Federal rules restrict any use of the information to criminally investigate or prosecute any alcohol or drug abuse patient.[facility] CenterIn the event this information is protected by the Federal Confidentiality of Alcohol and Drug Abuse Patient Records regulations: The Federal rules restrict any use of the information to criminally investigate or prosecute any alcohol or drug abuse patient.[facility] CenterIn the event this information is protected by the Federal Confidentiality of Alcohol and Drug Abuse Patient Records regulations: The Federal rules restrict any use of the information to criminally investigate or prosecute any alcohol or drug abuse patient.[facility] CenterIn the event this information is protected by the Federal Confidentiality of Alcohol and Drug Abuse Patient Records regulations: The Federal rules restrict any use of the information to criminally investigate or prosecute any alcohol or drug abuse patient.[facility] CenterIn the event this information is protected by the Federal Confidentiality of Alcohol and Drug Abuse Patient Records regulations: The Federal rules restrict any use of the information to criminally investigate or prosecute any alcohol or drug abuse patient.[facility] CenterIn the event this information is protected by the Federal Confidentiality of Alcohol and Drug Abuse Patient Records regulations: The Federal rules restrict any use of the information to criminally investigate or prosecute any alcohol or drug abuse patient.[facility] CenterIn the event this information is protected by the Federal Confidentiality of Alcohol and Drug Abuse Patient Records regulations: The Federal rules restrict any use of the information to criminally investigate or prosecute any alcohol or drug abuse patient.[facility] CenterIn the event this information is protected by the Federal Confidentiality of Alcohol and Drug Abuse Patient Records regulations: The Federal rules restrict any use of the information to criminally investigate or prosecute any alcohol or drug abuse patient.[facility] CenterIn the event this information is protected by the Federal Confidentiality of Alcohol and Drug Abuse Patient Records regulations: The Federal rules restrict any use of the information to criminally investigate or prosecute any alcohol or drug abuse patient.[facility] CenterIn the event this information is protected by the Federal Confidentiality of Alcohol and Drug Abuse Patient Records regulations: The Federal rules restrict any use of the information to criminally investigate or prosecute any alcohol or drug abuse patient.[facility] CenterIn the event this information is protected by the Federal Confidentiality of Alcohol and Drug Abuse Patient Records regulations: The Federal rules restrict any use of the information to criminally investigate or prosecute any alcohol or drug abuse patient.[facility] CenterIn the event this information is protected by the Federal Confidentiality of Alcohol and Drug Abuse Patient Records regulations: The Federal rules restrict any use of the information to criminally investigate or prosecute any alcohol or drug abuse patient.[facility] CenterIn the event this information is protected by the Federal Confidentiality of Alcohol and Drug Abuse Patient Records regulations: The Federal rules restrict any use of the information to criminally investigate or prosecute any alcohol or drug abuse patient.[facility] CenterIn the event this information is protected by the Federal Confidentiality of Alcohol and Drug Abuse Patient Records regulations: The Federal rules restrict any use of the information to criminally investigate or prosecute any alcohol or drug abuse patient.[facility] CenterIn the event this information is protected by the Federal Confidentiality of Alcohol and Drug Abuse Patient Records regulations: The Federal rules restrict any use of the information to criminally investigate or prosecute any alcohol or drug abuse patient.[facility] CenterIn the event this information is protected by the Federal Confidentiality of Alcohol and Drug Abuse Patient Records regulations: The Federal rules restrict any use of the information to criminally investigate or prosecute any alcohol or drug abuse patient.[facility] CenterIn the event this information is protected by the Federal Confidentiality of Alcohol and Drug Abuse Patient Records regulations: The Federal rules restrict any use of the information to criminally investigate or prosecute any alcohol or drug abuse patient.[facility] CenterIn the event this information is protected by the Federal Confidentiality of Alcohol and Drug Abuse Patient Records regulations: The Federal rules restrict any use of the information to criminally investigate or prosecute any alcohol or drug abuse patient.[facility] CenterIn the event this information is protected by the Federal Confidentiality of Alcohol and Drug Abuse Patient Records regulations: The Federal rules restrict any use of the information to criminally investigate or prosecute any alcohol or drug abuse patient.[facility] CenterIn the event this information is protected by the Federal Confidentiality of Alcohol and Drug Abuse Patient Records regulations: The Federal rules restrict any use of the information to criminally investigate or prosecute any alcohol or drug abuse patient.[facility] CenterIn the event this information is protected by the Federal Confidentiality of Alcohol and Drug Abuse Patient Records regulations: The Federal rules restrict any use of the information to criminally investigate or prosecute any alcohol or drug abuse patient.[facility]In the event this information is protected by the Federal Confidentiality of Alcohol and Drug Abuse Patient Records regulations: The Federal rules restrict any use of the information to criminally investigate or prosecute any alcohol or drug abuse patient.[facility] CenterIn the event this information is protected by the Federal Confidentiality of Alcohol and Drug Abuse Patient Records regulations: The Federal rules restrict any use of the information to criminally investigate or prosecute any alcohol or drug abuse patient.[facility] CenterIn the event this information is protected by the Federal Confidentiality of Alcohol and Drug Abuse Patient Records regulations: The Federal rules restrict any use of the information to criminally investigate or prosecute any alcohol or drug abuse patient.[facility]In the event this information is protected by the Federal Confidentiality of Alcohol and Drug Abuse Patient Records regulations: The Federal rules restrict any use of the information to criminally investigate or prosecute any alcohol or drug abuse patient.[facility] CenterIn the event this information is protected by the Federal Confidentiality of Alcohol and Drug Abuse Patient Records regulations: The Federal rules restrict any use of the information to criminally investigate or prosecute any alcohol or drug abuse patient.[facility] CenterIn the event this information is protected by the Federal Confidentiality of Alcohol and Drug Abuse Patient Records regulations: The Federal rules restrict any use of the information to criminally investigate or prosecute any alcohol or drug abuse patient.[facility]In the event this information is protected by the Federal Confidentiality of Alcohol and Drug Abuse Patient Records regulations: The Federal rules restrict any use of the information to criminally investigate or prosecute any alcohol or drug abuse patient.[facility] CenterIn the event this information is protected by the Federal Confidentiality of Alcohol and Drug Abuse Patient Records regulations: The Federal rules restrict any use of the information to criminally investigate or prosecute any alcohol or drug abuse patient.[facility] CenterIn the event this information is protected by the Federal Confidentiality of Alcohol and Drug Abuse Patient Records regulations: The Federal rules restrict any use of the information to criminally investigate or prosecute any alcohol or drug abuse patient.[facility] CenterIn the event this information is protected by the Federal Confidentiality of Alcohol and Drug Abuse Patient Records regulations: The Federal rules restrict any use of the information to criminally investigate or prosecute any alcohol or drug abuse patient.[facility]In the event this information is protected by the Federal Confidentiality of Alcohol and Drug Abuse Patient Records regulations: The Federal rules restrict any use of the information to criminally investigate or prosecute any alcohol or drug abuse patient.[facility]In the event this information is protected by the Federal Confidentiality of Alcohol and Drug Abuse Patient Records regulations: The Federal rules restrict any use of the information to criminally investigate or prosecute any alcohol or drug abuse patient.[facility]In the event this information is protected by the Federal Confidentiality of Alcohol and Drug Abuse Patient Records regulations: The Federal rules restrict any use of the information to criminally investigate or prosecute any alcohol or drug abuse patient.[facility] CenterIn the event this information is protected by the Federal Confidentiality of Alcohol and Drug Abuse Patient Records regulations: The Federal rules restrict any use of the information to criminally investigate or prosecute any alcohol or drug abuse patient.[facility] CenterIn the event this information is protected by the Federal Confidentiality of Alcohol and Drug Abuse Patient Records regulations: The Federal rules restrict any use of the information to criminally investigate or prosecute any alcohol or drug abuse patient.[facility]In the event this information is protected by the Federal Confidentiality of Alcohol and Drug Abuse Patient Records regulations: The Federal rules restrict any use of the information to criminally investigate or prosecute any alcohol or drug abuse patient.[facility]In the event this information is protected by the Federal Confidentiality of Alcohol and Drug Abuse Patient Records regulations: The Federal rules restrict any use of the information to criminally investigate or prosecute any alcohol or drug abuse patient.[facility]In the event this information is protected by the Federal Confidentiality of Alcohol and Drug Abuse Patient Records regulations: The Federal rules restrict any use of the information to criminally investigate or prosecute any alcohol or drug abuse patient.[facility]In the event this information is protected by the Federal Confidentiality of Alcohol and Drug Abuse Patient Records regulations: The Federal rules restrict any use of the information to criminally investigate or prosecute any alcohol or drug abuse patient.[facility]In the event this information is protected by the Federal Confidentiality of Alcohol and Drug Abuse Patient Records regulations: The Federal rules restrict any use of the information to criminally investigate or prosecute any alcohol or drug abuse patient.[facility]In the event this information is protected by the Federal Confidentiality of Alcohol and Drug Abuse Patient Records regulations: The Federal rules restrict any use of the information to criminally investigate or prosecute any alcohol or drug abuse patient.[facility]In the event this information is protected by the Federal Confidentiality of Alcohol and Drug Abuse Patient Records regulations: The Federal rules restrict any use of the information to criminally investigate or prosecute any alcohol or drug abuse patient.[facility]In the event this information is protected by the Federal Confidentiality of Alcohol and Drug Abuse Patient Records regulations: The Federal rules restrict any use of the information to criminally investigate or prosecute any alcohol or drug abuse patient.[facility]In the event this information is protected by the Federal Confidentiality of Alcohol and Drug Abuse Patient Records regulations: The Federal rules restrict any use of the information to criminally investigate or prosecute any alcohol or drug abuse patient.[facility]In the event this information is protected by the Federal Confidentiality of Alcohol and Drug Abuse Patient Records regulations: The Federal rules restrict any use of the information to criminally investigate or prosecute any alcohol or drug abuse patient.[facility]In the event this information is protected by the Federal Confidentiality of Alcohol and Drug Abuse Patient Records regulations: The Federal rules restrict any use of the information to criminally investigate or prosecute any alcohol or drug abuse patient.[facility]In the event this information is protected by the Federal Confidentiality of Alcohol and Drug Abuse Patient Records regulations: The Federal rules restrict any use of the information to criminally investigate or prosecute any alcohol or drug abuse patient.[facility]In the event this information is protected by the Federal Confidentiality of Alcohol and Drug Abuse Patient Records regulations: The Federal rules restrict any use of the information to criminally investigate or prosecute any alcohol or drug abuse patient.[facility]In the event this information is protected by the Federal Confidentiality of Alcohol and Drug Abuse Patient Records regulations: The Federal rules restrict any use of the information to criminally investigate or prosecute any alcohol or drug abuse patient.[facility]In the event this information is protected by the Federal Confidentiality of Alcohol and Drug Abuse Patient Records regulations: The Federal rules restrict any use of the information to criminally investigate or prosecute any alcohol or drug abuse patient.[facility]In the event this information is protected by the Federal Confidentiality of Alcohol and Drug Abuse Patient Records regulations: The Federal rules restrict any use of the information to criminally investigate or prosecute any alcohol or drug abuse patient.[facility]In the event this information is protected by the Federal Confidentiality of Alcohol and Drug Abuse Patient Records regulations: The Federal rules restrict any use of the information to criminally investigate or prosecute any alcohol or drug abuse patient.[facility]In the event this information is protected by the Federal Confidentiality of Alcohol and Drug Abuse Patient Records regulations: The Federal rules restrict any use of the information to criminally investigate or prosecute any alcohol or drug abuse patient.[facility]In the event this information is protected by the Federal Confidentiality of Alcohol and Drug Abuse Patient Records regulations: The Federal rules restrict any use of the information to criminally investigate or prosecute any alcohol or drug abuse patient.[facility]In the event this information is protected by the Federal Confidentiality of Alcohol and Drug Abuse Patient Records regulations: The Federal rules restrict any use of the information to criminally investigate or prosecute any alcohol or drug abuse patient.[facility]In the event this information is protected by the Federal Confidentiality of Alcohol and Drug Abuse Patient Records regulations: The Federal rules restrict any use of the information to criminally investigate or prosecute any alcohol or drug abuse patient.[facility]In the event this information is protected by the Federal Confidentiality of Alcohol and Drug Abuse Patient Records regulations: The Federal rules restrict any use of the information to criminally investigate or prosecute any alcohol or drug abuse patient.[facility]In the event this information is protected by the Federal Confidentiality of Alcohol and Drug Abuse Patient Records regulations: The Federal rules restrict any use of the information to criminally investigate or prosecute any alcohol or drug abuse patient.[facility]In the event this information is protected by the Federal Confidentiality of Alcohol and Drug Abuse Patient Records regulations: The Federal rules restrict any use of the information to criminally investigate or prosecute any alcohol or drug abuse patient.[facility]In the event this information is protected by the Federal Confidentiality of Alcohol and Drug Abuse Patient Records regulations: The Federal rules restrict any use of the information to criminally investigate or prosecute any alcohol or drug abuse patient.[facility]In the event this information is protected by the Federal Confidentiality of Alcohol and Drug Abuse Patient Records regulations: The Federal rules restrict any use of the information to criminally investigate or prosecute any alcohol or drug abuse patient.[facility]In the event this information is protected by the Federal Confidentiality of Alcohol and Drug Abuse Patient Records regulations: The Federal rules restrict any use of the information to criminally investigate or prosecute any alcohol or drug abuse patient.[facility]In the event this information is protected by the Federal Confidentiality of Alcohol and Drug Abuse Patient Records regulations: The Federal rules restrict any use of the information to criminally investigate or prosecute any alcohol or drug abuse patient.[facility]In the event this information is protected by the Federal Confidentiality of Alcohol and Drug Abuse Patient Records regulations: The Federal rules restrict any use of the information to criminally investigate or prosecute any alcohol or drug abuse patient.[facility]In the event this information is protected by the Federal Confidentiality of Alcohol and Drug Abuse Patient Records regulations: The Federal rules restrict any use of the information to criminally investigate or prosecute any alcohol or drug abuse patient.[facility]In the event this information is protected by the Federal Confidentiality of Alcohol and Drug Abuse Patient Records regulations: The Federal rules restrict any use of the information to criminally investigate or prosecute any alcohol or drug abuse patient.[facility]In the event this information is protected by the Federal Confidentiality of Alcohol and Drug Abuse Patient Records regulations: The Federal rules restrict any use of the information to criminally investigate or prosecute any alcohol or drug abuse patient.[facility]In the event this information is protected by the Federal Confidentiality of Alcohol and Drug Abuse Patient Records regulations: The Federal rules restrict any use of the information to criminally investigate or prosecute any alcohol or drug abuse patient.[facility]In the event this information is protected by the Federal Confidentiality of Alcohol and Drug Abuse Patient Records regulations: The Federal rules restrict any use of the information to criminally investigate or prosecute any alcohol or drug abuse patient.[facility]In the event this information is protected by the Federal Confidentiality of Alcohol and Drug Abuse Patient Records regulations: The Federal rules restrict any use of the information to criminally investigate or prosecute any alcohol or drug abuse patient.[facility]In the event this information is protected by the Federal Confidentiality of Alcohol and Drug Abuse Patient Records regulations: The Federal rules restrict any use of the information to criminally investigate or prosecute any alcohol or drug abuse patient.[facility]In the event this information is protected by the Federal Confidentiality of Alcohol and Drug Abuse Patient Records regulations: The Federal rules restrict any use of the information to criminally investigate or prosecute any alcohol or drug abuse patient.[facility]In the event this information is protected by the Federal Confidentiality of Alcohol and Drug Abuse Patient Records regulations: The Federal rules restrict any use of the information to criminally investigate or prosecute any alcohol or drug abuse patient.[facility] Reason for Visit (unrecogniz ed section and content) Reason Comments Established Patient abdomen issues- x 2 years Specialty Diagnoses / Procedures Referred By Wang t Referred To Contact Family Practice / FAMILY MEDICINE Diagnoses Abdominal distress Abdominal distress Procedures OFFICE/OUTPATIENT ESTABLISHED MOD MDM 30-39 MIN MYC OFFICE VISIT Self Robson Robertson APRN.[employer] [id number] [place] [address] Referral ID Status Reason Start Date Expiration Date Visits Re quested Visits Authorized [id number] Closed 02/09/2022 10/03/2022 1 1 Reason Comments Results Reason Comments Radiology CT Specialty Diagnoses / Procedures Referred By Wang t Referred To Contact CT IMAGING Diagnoses Right lower quadrant abdominal pain Nausea Procedures CT ABD/PEL WO IVCON CT ABD & PELVIS W/O CONTRAST Robson Robertson APRN.TECHNICAL SUPPORT CONSULTANT [address] [place] [address] Ct Imaging Referral ID Status Reason Start Date Expiration Date Visits Re quested Visits Authorized [id number] Closed 02/09/2022 10/03/2022 1 1 Reason Comments Patient Update Reason Comments Elevated PSA New Patient Specialty Diagnoses / Procedures Referred By Wang t Referred To Contact Urology Diagnoses Elevated PSA Procedures CONSULT TO UROLOGY OFFICE/OUTPATIENT NEW HIGH MDM 60-74 MINUTES Robson Robertson APRN.TECHNICAL SUPPORT CONSULTANT [address] [place] [address] Referral ID Status Reason Start Date Expiration Date V isits Requested Visits Authorized [id number] Closed PCP Requested Referral 03/13/2022 03/13/2023 1 1 Reason Comments Cardiology Follow Up no issues Reason Comments Results Appointment Reason Comments Appointment Reason Comments Patient Question Reason Comments Appointment Patient Question Reason Comments Appointment Patient Update Reason Comments Appointment Appointment Reason Comments Orders Reason Comments New Patient Consult New Patient CABG Lidia luation Reason Comments Patient Update Orders Reason Comments Referral Information Reason Comments Future Appointment Reason Comments Established Patient Review CFT, CT chest , carotid US discuss CABG scheduling Reason Comments Prostate Biopsy Reason Comments Follow Up Specialty Diagnoses / Procedures Referred By Wang t Referred To Contact Urology Diagnoses Elevated PSA Procedures CONSULT TO UROLOGY OFFICE/OUTPATIENT NEW HIGH MDM 60-74 MINUTES Shanelle Steve, OIL TREATER.TECHNICAL SUPPORT CONSULTANT [address] [facility] [address] [place] [address] Referral ID Status Reason Start Date Expiration Date V isits Requested Visits Authorized [id number] Closed PCP Requested Referral 06/18/2022 06/18/2023 1 1 Reason Comments Results Reason Comments Orders Reason Comments Consult Reason Comments Schedule Surgery Reason Comments Forms VA disability forms Reason Comments LMTCB Reason Comments Appointment Rescheduled New surgery date info Reason Onset Date Comments Population Health Navigation Outreach 09/24/2022 ACO ROMAN PCSA Reason Comments Coronary Artery Disease [place] is here fo r PAT Reason Comments Home Care Confirmation Call (A ttempt) Reason Comments Home Care Reason Onset Date Comments Transition Of Care 10/26/2022 TCM initial o lucian-dc'd from [facility] 10/23/22 Reason Comments Post Op 10/16/22 CABG Reason Comments Cardiac Rehab Referral info Reason Comments Established Patient Post Op 3-4 week follow-up - post-op CABG Follow Up Reason Comments Orders Db Mcrae requeste d Nursing staff to place a call to the patient. Reason Comments F/U 1 month BP & post surgery Reason Comments Cardiology Follow Up No issues Reason Comments Neck Pain Reason Comments Appointment Patient left request for chest pain Reason Comments Follow Up Prostate Cancer Reason Comments Sinus Problem Lots of congestion Reason Onset Date Comments Refill Request 07/24/2023 Reason Onset Date Comments Population Health Navigation Outreach 07/30/2023 ACO CARE GAP Reason Comments Follow Up Prostate Cancer Reason Comments Hormone Therapy Injection Prostate Cancer Reason Comments Radiology US Specialty Diagnoses / Procedures Referred By Wang ellsworth Referred To Contact US IMAGING Diagnoses Neck pain Procedures US HEAD/NECK SOFT TISSUE OTHER US SOFT TISSUE HEAD & NECK REAL TIME IMGE DOCM Marcelo, Robson, OIL TREATER.TECHNICAL SUPPORT CONSULTANT [address] [place] [address] [place] [address] Referral ID Status Reason Start Date Expiration Date V isits Requested Visits Authorized [id number] Closed Auto-Generate d Referral 03/05/2023 04/03/2024 1 1 Specialty Diagnoses / Procedures Referred By Contac t Referred To Contact US IMAGING Diagnoses Nodule of skin of abdomen Procedures US SOFT TISSUE ABDOMEN US ABDOMINAL REAL TIME W/IMAGE LIMITED Robson Robertson, OIL TREATER.TECHNICAL SUPPORT CONSULTANT [address] [place] [address] [place] [address] Referral ID Status Reason Start Date Expiration Date V isits Requested Visits Authorized [id number] Closed Auto-Generate d Referral 08/18/2022 09/17/2023 1 1 Specialty Diagnoses / Procedures Referred By Contac t Referred To Contact CT IMAGING Diagnoses Prostate cancer (HCC) Procedures CT PELVIS W IVCON CT PELVIS W/CONTRAST MATERIAL Aris Tolbert, DO [address] [place] [address] [place] [address] Referral ID Status Reason Start Date Expiration Date V isits Requested Visits Authorized [id number] Closed Auto-Generate d Referral 07/27/2022 08/26/2023 1 1 Specialty Diagnoses / Procedures Referred By Contac t Referred To Contact CT IMAGING Diagnoses Pulmonary nodule Lung nodules Procedures CT CHEST WO IVCON DIAGNOSTIC COMPUTED TOMOGRAPHY THORAX W/O CNTRST Robson Robertson, OIL TREATER.TECHNICAL SUPPORT CONSULTANT [address] [place] [address] [place] [address] Referral ID Status Reason Start Date Expiration Date V isits Requested Visits Authorized [id number] Closed Auto-Generate d Referral 03/05/2023 04/03/2024 1 1 Reason Comments Radiology NM Specialty Diagnoses / Procedures Referred By Contac t Referred To Contact MOLECULAR & FUNCTIONAL IMAGING Diagnoses Encounter for observation for other suspected diseases and conditions ruled out Prostate cancer (HCC) Procedures NM BONE WHOLE BODY BONE &/JOINT IMAGING WHOLE BODY Tobin Tolbertyram, DO [address] [place] [address] Molecular & Functional Imaging [address] [id number] Referral ID Status Reason Start Date Expiration Date V isits Requested Visits Authorized [id number] Closed Auto-Generate d Referral 08/03/2022 09/02/2023 1 1 Reason Comments Stress Reason Comments Consult Reason Onset Date Comments Refill Request 10/22/2023 Reason Comments Radiotherapy On-treatment Visit Reason Comments Follow Up Room 1VA sent to [facility] for ECHO 10/14/23Severe FatigueRadiation Therapy for Prostate Reason Comments Chest Pain Reason Comments Recheck Reason Comments Hip Pain ANGELA hips x 2 months Reason Comments Established Patient Follow-Up Follow upP t having a lot of fatigue, SOB, and some palpitations. [facility] ordered Echo, completed at [facility] on 10/14. Report in care everywhere. Impression: ECHO/Echo Complete Interpretation Summary Normal LV size. Left ventricular systolic function is normal. The estimated ejection fraction is 55 %. Stage 1 diastolic dysfunction. Mild diffuse aortic valve thickening. Reason Comments Prior Auth Repatha Reason Comments PT Eval Specialty Diagnoses / Procedures Referred By Contac t Referred To Contact [facility] Diagnoses Bilateral hip pain Procedures CONSULT TO PHYSICAL THERAPY PHYSICAL THERAPY EVALUATION HIGH COMPLEX 45 MINS Robson Robertson APRN.TECHNICAL SUPPORT CONSULTANT [address] [place] [address] [facility] [place] [address] [place] [address] Referral ID Status Reason Start Date Expiration Date V isits Requested Visits Authorized [id number] Closed Auto-Generate d Referral 10/04/2023 10/03/2024 1 1 Reason Comments Follow-up 2mo follow up sinus Reason Onset Date Comments Refill Request 03/10/2024 Reason Comments Cough Head and chest conge stion, fatigue x4 days Reason Comments Cough With Congestion, fev er x3 weeks Not improving Reason Onset Date Comments Refill Request 05/20/2024 Reason Comments Wrist Pain Reason Comments Follow Up Reason Comments Cancer Surveillance Specialty Diagnoses / Procedures Referred By Contac t Referred To Contact General Surgery Diagnoses History of colonic polyps Screening for colon cancer Procedures CONSULT TO GENERAL SURGERY OFFICE/OUTPATIENT NEW HIGH MDM 60 MINUTES Robson Robertson APRN.TECHNICAL SUPPORT CONSULTANT [address] [place] [address] Referral ID Status Reason Start Date Expiration Date V isits Requested Visits Authorized [id number] Closed PCP Requested Referral 06/23/2024 06/23/2025 1 1 Reason Comments Follow Up ER follow up Reason Comments Results AAA US Reason Comments Follow Up Pt has had episodes of chest discomfort the past few weeks. Worse with activity. Pt describes as a dull, deep ache. Also describes a pressure in mid-sternum Reason Comments Acute Visit upper abdomen pain Reason Comments Patient Question Patient Update My Chart Message Reason Comments Reminder Call Specialty Diagnoses / Procedures Referred By Wang t Referred To Contact US IMAGING Diagnoses Epigastric pain Procedures US ABD RIGHT UPPER QUADRANT US ABDOMINAL REAL TIME W/IMAGE LIMITED Gerri Curry, KATT.TECHNICAL SUPPORT CONSULTANT [address] [place] [address] [place] [address] Referral ID Status Reason Start Date Expiration Date V isits Requested Visits Authorized [id number] Closed Auto-Generate d Referral 09/08/2024 10/07/2025 1 1 Reason Comments Results Lab Reason Comments Results US RUQ Reason Onset Date Comments Refill Request 11/01/2024 Reason Comments Sinus Problem Reason Comments History of prostate cancer Reason Onset Date Comments Allied Health Visit 11/30/2024 Medication A dherence Outreach Reason Comments Cardiology Follow Up Review test results from 09/2024More palpations recently Reason Onset Date Comments Allied Health Visit 01/09/2025 Medication A dherence Outreach Reason Onset Date Comments Population Health Navigation Outreach 01/10/2025 [employer] 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 Reason Onset Date Comments Allied Health Visit 02/05/2025 Medication A dherence Outreach Reason Comments Sinusitis X2.5 weeks Reason Onset Date Comments Allied Health Visit 03/21/2025 Medication A dherence Outreach Reason Onset Date Comments Refill Request 03/22/2025 Reason Onset Date Comments Population Health Navigation Outreach 03/23/2025 [employer] Workbench Roman Reason Onset Date Comments Allied Health Visit 04/04/2025 SUPD Reason Onset Date Comments Allied Health Visit 04/17/2025 Medication A dherence Outreach Reason Onset Date Comments Allied Health Visit 04/24/2025 Medication A dherence Outreach Reason Onset Date Comments Allied Health Visit 05/02/2025 Medication A dherence Reason Onset Date Comments Allied Health Visit 05/01/2025 Medication A dherence Outreach Reason Onset Date Comments Population Health Navigation Outreach 05/24/2025 Rafaela Owens Reason Comments Missed Appointment Pharmacist Visit Res cheduling Reason Comments Follow Up C/o some chest pain vs nerve pain in left neck last two daysC/o being off balanceC/o some edemaLOV 12/15/24 Rust Stress 11/20/23Echo 09/19/24EKG 09/04/24ZIO 01/29/23 Reason Onset Date Comments Population Health Navigation Outreach 06/05/2025 [employer] [facility] Sprint 8.18.25 Care Teams (unrecognized sec tion and content) Linoleum Tile Layer Relationship Specialty Start Date End Date Cali Cordero MD [address] [place] [address] PCP - General Family Practice 10/01/20 Linoleum Tile Layer Relationship Specialty Start Date End Date Cali Cordero MD [address] [place] [address] PCP - General Family Practice 10/01/20 Linoleum Tile Layer Relationship Specialty Start Date End Date Cali Cordero MD [address] [place] [address] PCP - General Family Practice 10/01/20 Linoleum Tile Layer Relationship Specialty Start Date End Date Cali Cordero MD [address] [place] [address] PCP - General Family Practice 10/01/20 Linoleum Tile Layer Relationship Specialty Start Date End Date Cali Cordero MD [address] [place] [address] PCP - General Family Practice 10/01/20 Linoleum Tile Layer Relationship Specialty Start Date End Date Cali Cordero MD [address] [place] [address] PCP - General Family Practice 10/01/20 Linoleum Tile Layer Relationship Specialty Start Date End Date Cali Cordero MD [address] [place] [address] PCP - General Family Practice 10/01/20 Linoleum Tile Layer Relationship Specialty Start Date End Date Cali Cordero MD [address] [place] [address] PCP - General Family Practice 10/01/20 Linoleum Tile Layer Relationship Specialty Start Date End Date Cali Cordero MD [address] [place] [address] PCP - General Family Practice 10/01/20 Linoleum Tile Layer Relationship Specialty Start Date End Date Cali Cordero MD [address] [place] [address] PCP - General Family Practice 10/01/20 Linoleum Tile Layer Relationship Specialty Start Date End Date Cali Cordero MD [address] [place] [address] PCP - General Family Practice 10/01/20 Linoleum Tile Layer Relationship Specialty Start Date End Date Cali Cordero MD [address] [place] [address] PCP - General Family Practice 10/01/20 Linoleum Tile Layer Relationship Specialty Start Date End Date Cali Cordero MD [address] [place] [address] PCP - General Family Practice 10/01/20 Linoleum Tile Layer Relationship Specialty Start Date End Date Cali Cordero MD [address] [place] [address] PCP - General Family Practice 10/01/20 Linoleum Tile Layer Relationship Specialty Start Date End Date Cali Cordero MD [address] [place] [address] PCP - General Family Practice 10/01/20 Linoleum Tile Layer Relationship Specialty Start Date End Date Cali Cordero MD [address] [place] [address] PCP - General Family Practice 10/01/20 Linoleum Tile Layer Relationship Specialty Start Date End Date Cali Cordero MD [address] [place] [address] PCP - General Family Practice 10/01/20 Linoleum Tile Layer Relationship Specialty Start Date End Date Cali Cordero MD [address] [place] [address] PCP - General Family Practice 10/01/20 Linoleum Tile Layer Relationship Specialty Start Date End Date Cali Cordero MD [address] [place] [address] PCP - General Family Medicine 10/01/20 Linoleum Tile Layer Relationship Specialty Start Date End Date Cali Cordero MD [address] [place] [address] PCP - General Family Medicine 10/01/20 Linoleum Tile Layer Relationship Specialty Start Date End Date Cali Cordero MD [address] [place] [address] PCP - General Family Medicine 10/01/20 Linoleum Tile Layer Relationship Specialty Start Date End Date Cali Cordero MD [address] [place] [address] PCP - General Family Medicine 10/01/20 Linoleum Tile Layer Relationship Specialty Start Date End Date Cali Cordero MD [address] [place] [address] PCP - General Family Medicine 10/01/20 Linoleum Tile Layer Relationship Specialty Start Date End Date Cali Cordero MD [address] [place] [address] PCP - General Family Medicine 10/01/20 Linoleum Tile Layer Relationship Specialty Start Date End Date Cali Cordero MD [address] [place] [address] PCP - General Family Medicine 10/01/20 Linoleum Tile Layer Relationship Specialty Start Date End Date Cali Cordero MD [address] [place] [address] PCP - General Family Medicine 10/01/20 Linoleum Tile Layer Relationship Specialty Start Date End Date Cali Cordero MD [address] [place] [address] PCP - General Family Medicine 10/01/20 Linoleum Tile Layer Relationship Specialty Start Date End Date Cali Cordero MD [address] [place] [address] PCP - General Family Medicine 10/01/20 Linoleum Tile Layer Relationship Specialty Start Date End Date Cali Cordero MD [address] [place] [address] PCP - General Family Medicine 10/01/20 Linoleum Tile Layer Relationship Specialty Start Date End Date Cali Cordero MD [address] [place] [address] PCP - General Family Medicine 10/01/20 Linoleum Tile Layer Relationship Specialty Start Date End Date Cali Cordero MD [address] [place] [address] PCP - General Family Medicine 10/01/20 Linoleum Tile Layer Relationship Specialty Start Date End Date Cali Cordero MD [address] [place] [address] PCP - General Family Medicine 10/01/20 Juan A Pacheco DO [address] [place] [address] Cardiology 10/02/22 Linoleum Tile Layer Relationship Specialty Start Date End Date Cali Cordero MD [address] [place] [address] PCP - General Family Medicine 10/01/20 Juan A Pacheco DO [address] [place] [address] Cardiology 10/02/22 Linoleum Tile Layer Relationship Specialty Start Date End Date Cali Cordero MD [address] [place] [address] PCP - General Family Medicine 10/01/20 Juan A Pacheco DO [facility] [place] [address] Cardiology 10/02/22 Linoleum Tile Layer Relationship Specialty Start Date End Date Cali Cordero MD [address] [place] [address] PCP - General Family Medicine 10/01/20 Juan A Pacheco DO [facility] [place] [address] Cardiology 10/02/22 Brian Colmenares MD [address] [place] [address] Home Care Provider Cardiovascular Surgery 10/19/22 Linoleum Tile Layer Relationship Specialty Start Date End Date Cali Cordero MD [address] [place] [address] PCP - General Family Medicine 10/01/20 Juan A Pacheco DO [address] [place] [address] Cardiology 10/02/22 Brian Colmenares MD [address] [place] [address] Home Care Provider Cardiovascular Surgery 10/19/22 Vern Mills APRN.TECHNICAL SUPPORT CONSULTANT [address] [place] [address] Referring Cardiothoracic Surgery 10/23/22 Nithin Patel RN [address] [place], [place] [phone] Metal Turner Post Acute Care 10/23/22 Linoleum Tile Layer Relationship Specialty Start Date End Date Cali Cordero MD [address] [place], [place] 638121 [phone] PCP - General Family Medicine 10/01/20 [place] [address] [place] [address] Cardiology 10/02/22 Brian Colmenares MD [address] [place] [address] Home Care Provider Cardiovascular Surgery 10/19/22 Vern Mills APRN.TECHNICAL SUPPORT CONSULTANT [address] [place] [address] Referring Cardiothoracic Surgery 10/23/22 Nithin Patel RN [address] [place], [place] [phone] Metal Turner Post Acute Care 10/23/22 Linoleum Tile Layer Relationship Specialty Start Date End Date Cali Cordero MD [address] [place] [address] PCP - General Family Medicine 10/01/20 [place] [address] [place] [address] Cardiology 10/02/22 Brian Colmenares MD [address] [place] [address] Home Care Provider Cardiovascular Surgery 10/19/22 Vern Mills APRN.TECHNICAL SUPPORT CONSULTANT [address] [place] [address] Referring Cardiothoracic Surgery 10/23/22 Linoleum Tile Layer Relationship Specialty Start Date End Date Cali Cordero MD [address] [place] [address] PCP - General Family Medicine 10/01/20 Juan A Pacheco, DO [address] [place] [address] Cardiology 10/02/22 Brian Colmenares MD [address] [place] [address] Home Care Provider Cardiovascular Surgery 10/19/22 Vern Mills APRN.TECHNICAL SUPPORT CONSULTANT [address] [place] [address] Referring Cardiothoracic Surgery 10/23/22 Linoleum Tile Layer Relationship Specialty Start Date End Date Cali Cordero MD [address] [place] [address] PCP - General Family Medicine 10/01/20 Juan A Pacheco DO [address] [place] [address] Cardiology 10/02/22 Brian Colmenares MD [address] [place] [address] Home Care Provider Cardiovascular Surgery 10/19/22 Vern Mills APRN.TECHNICAL SUPPORT CONSULTANT [address] [place] [address] Referring Cardiothoracic Surgery 10/23/22 Linoleum Tile Layer Relationship Specialty Start Date End Date Cali Cordero MD [address] [place] [address] PCP - General Family Medicine 10/01/20 Juan A Pacheco [address] [place] [address] Cardiology 10/02/22 Brian Colmenares MD [address] [place], [place] [phone] Home Care Provider Cardiovascular Surgery 10/19/22 Vern Mills, OIL TREATER.TECHNICAL SUPPORT CONSULTANT [address] [place], [place] [id number] Referring Cardiothoracic Surgery 10/23/22 Linoleum Tile Layer Relationship Specialty Start Date End Date Cali Cordero MD [address] [place], [place] 988411 PCP - General Family Medicine 10/01/20 Juan A Pacheco [address] [place] [address] Cardiology 10/02/22 Brian Colmenares MD [address] [place], [place] [id number] Home Care Provider Cardiovascular Surgery 10/19/22 Vern Mills, OIL TREATER.TECHNICAL SUPPORT CONSULTANT [address] [place], [place] [phone] Referring Cardiothoracic Surgery 10/23/22 Team Status: Active Member Role Status Dates Dr. Jess Curry MD Family Provider Active Dr. Cali Cordero MD Primary Care Provider Active Team Status: Inactive Member Role Status Dates Dr. Jess Curry MD Primary Care Provider Active Kate Velazquez CITY CARRIER, CITY CARRIER-C Attending Provider, Kerri leigh Provider Active Team Status: Active Member Role Status Dates MANA CARRENO Other Provider Active Dr. Cali Cordero MD Primary Care Provider Active Dr. Georgina Garcia MD Attending Provider Active Team Status: Inactive Member Role Status Dates MANA CARRENO Attending Provider Active Dr. Cali Cordero MD Primary Care Provider Active Linoleum Tile Layer Relationship Specialty Start Date End Date Cali Cordero MD [address] [place] [address] PCP - General Family Medicine 10/01/20 Juan A Pacheco, DO [address] [place] [address] Cardiology 10/02/22 Brian Colmenares MD [address] [place] [address] Home Care Provider Cardiovascular Surgery 10/19/22 Vern Mills OIL TREATER.TECHNICAL SUPPORT CONSULTANT [address] [place] [address] Referring Cardiothoracic Surgery 10/23/22 Linoleum Tile Layer Relationship Specialty Start Date End Date Cali Cordero MD [address] [place] [address] PCP - General Family Medicine 10/01/20 Juan A Pacheco, DO [address] [place] [address] Cardiology 10/02/22 Brian Colmenares MD [address] [place] [address] Home Care Provider Cardiovascular Surgery 10/19/22 Vern Mills, OIL TREATER.TECHNICAL SUPPORT CONSULTANT [address] [place] [address] Referring Cardiothoracic Surgery 10/23/22 Linoleum Tile Layer Relationship Specialty Start Date End Date Cali Cordero MD [address] [place] [address] PCP - General Family Medicine 10/01/20 Juan A Pacheco DO [address] [place] [address] Cardiology 10/02/22 Brian Colmenares MD [address] [place] [address] Home Care Provider Cardiovascular Surgery 10/19/22 Vern Mills APRN.TECHNICAL SUPPORT CONSULTANT [address] [place], [place] [id number] Referring Cardiothoracic Surgery 10/23/22 Linoleum Tile Layer Relationship Specialty Start Date End Date Cali Cordero MD [address] [place], [place] 346981 PCP - General Family Medicine 10/01/20 Juan A Pacheco DO [address] [place] [phone] Cardiology 10/02/22 Brian Colmenares MD [address] [place] [address] Home Care Provider Cardiovascular Surgery 10/19/22 Vern Mills APRN.TECHNICAL SUPPORT CONSULTANT [address] [place], [place] [id number] Referring Cardiothoracic Surgery 10/23/22 Nithin Patel, [place] [address] [place] [address] Metal Turner Post Acute Care 10/23/22 10/28/22 Linoleum Tile Layer Relationship Specialty Start Date End Date Cali Cordero MD [address] [place], [place] 472521 PCP - General Family Medicine 10/01/20 Juan A Pacheco DO [address] [place] [address] [phone] Cardiology 10/02/22 Brian Colmenares MD [address] [place] [address] Home Care Provider Cardiovascular Surgery 10/19/22 Vern Mills APRN.TECHNICAL SUPPORT CONSULTANT [address] [place], [place] [id number] Referring Cardiothoracic Surgery 10/23/22 Linoleum Tile Layer Relationship Specialty Start Date End Date Cali Cordero MD [facility] [place], [place] [address] PCP - General Family Medicine 10/01/20 Juan A Pacheco DO [address] [place] [address] [phone] Cardiology 10/02/22 Brian Colmenares MD [address] [place] [address] Home Care Provider Cardiovascular Surgery 10/19/22 Vern Mills APRN.TECHNICAL SUPPORT CONSULTANT [address] [place] [address] Referring Cardiothoracic Surgery 10/23/22 Linoleum Tile Layer Relationship Specialty Start Date End Date Cali Cordero MD [facility] [address] [place], [place] [address] PCP - General Family Medicine 07/01/23 Linoleum Tile Layer Relationship Specialty Start Date End Date Cali Cordero MD [address] [place], [place] 135451 PCP - General Family Medicine 10/01/20 Juan A Pacheco DO [address] [place] [address] [phone] Cardiology 10/02/22 Brian Colmenares MD [address] [place], [place] [phone] Home Care Provider Cardiovascular Surgery 10/19/22 Vern [place], OIL TREATER.TECHNICAL SUPPORT CONSULTANT [address] [place], [place] [id number] Referring Cardiothoracic Surgery 10/23/22 Linoleum Tile Layer Relationship Specialty Start Date End Date Cali Cordero MD [address] [place], [place] 245451 PCP - General Family Medicine 10/01/20 Juan A Pacheco DO [address] [place] [address] [phone] Cardiology 10/02/22 Brian Colmenares MD [address] [place], [place] [phone] Home Care Provider Cardiovascular Surgery 10/19/22 Vern [place], OIL TREATER.TECHNICAL SUPPORT CONSULTANT [address] [place] [address] Referring Cardiothoracic Surgery 10/23/22 Team Status: Inactive Member Role Status Dates Dr. Cali Cordero MD Primary Care Provider, Referr ing Provider Active Kate Velazquez CITY CARRIER, CITY CARRIER-C Attending Provider Active Team Status: Inactive Member Role Status Dates Dr. Cali Cordero MD Primary Care Provider Active Dr. Roberto Harvey DO Attending Provider Active [facility] Referring Provider Active Linoleum Tile Layer Relationship Specialty Start Date End Date Cali Cordero MD [address] [place] [address] PCP - General Family Medicine 10/01/20 Juan A Pacheco DO [address] [place] [address] [id number] Cardiology 10/02/22 Brian Colmenares MD 1 [place] [address] Home Care Provider Cardiovascular Surgery 10/19/22 Vern Mills APRN.TECHNICAL SUPPORT CONSULTANT [address] [place] [address] Referring Cardiothoracic Surgery 10/23/22 Linoleum Tile Layer Relationship Specialty Start Date End Date Cali Cordeor MD [address] [place] [address] [id number] PCP - General Family Medicine 10/01/20 Juan A Pacheco DO [address] [place] [address] [id number] Cardiology 10/02/22 Brian Colmenares MD 1 [place] [address] Home Care Provider Cardiovascular Surgery 10/19/22 Vern Mills APRN.TECHNICAL SUPPORT CONSULTANT [address] [place] [address] Referring Cardiothoracic Surgery 10/23/22 Linoleum Tile Layer Relationship Specialty Start Date End Date Cali Cordero MD [address] [place], [place] 577721 PCP - General Family Medicine 10/01/20 Juan A Pacheco DO [address] [place] [address] [id number] Cardiology 10/02/22 Brian Colmenares MD [address] [place], [place] [phone] Home Care Provider Cardiovascular Surgery 10/19/22 Vern Mills APRN.TECHNICAL SUPPORT CONSULTANT [address] [place], [place] [phone] Referring Cardiothoracic Surgery 10/23/22 Linoleum Tile Layer Relationship Specialty Start Date End Date Cali Cordero MD [address] [facility] [address] [place], [place] [phone] PCP - General Family Medicine 07/01/23 Linoleum Tile Layer Relationship Specialty Start Date End Date Cali Cordero MD [address] [place], [place] [phone] PCP - General Family Medicine 10/01/20 Juan A Pacheco DO [address] [place], [place] [id number] Cardiology 10/02/22 Brian Colmenares MD 1 [place], [place] [phone] Home Care Provider Cardiovascular Surgery 10/19/22 Vern Mills APRN.TECHNICAL SUPPORT CONSULTANT [address] [place], [place] [phone] Referring Cardiothoracic Surgery 10/23/22 Linoleum Tile Layer Relationship Specialty Start Date End Date Cali Cordero MD [address] [place], [place] [phone] PCP - General Family Medicine 10/01/20 Linoleum Tile Layer Relationship Specialty Start Date End Date Cali Cordero MD [address] [place] [address] PCP - General Family Medicine 10/01/20 Juan A Pacheco DO [address] [place] [address] Cardiology 10/02/22 Brian Colmenares MD 1 [place] [address] Home Care Provider Cardiovascular Surgery 10/19/22 Vern Mills APRN.TECHNICAL SUPPORT CONSULTANT [address] [place], [place] [phone] Referring Cardiothoracic Surgery 10/23/22 Linoleum Tile Layer Relationship Specialty Start Date End Date Cali Cordero MD [address] [place] [address] PCP - General Family Medicine 10/01/20 Linoleum Tile Layer Relationship Specialty Start Date End Date Cali Cordero MD [address] [place] [address] PCP - General Family Medicine 10/01/20 Linoleum Tile Layer Relationship Specialty Start Date End Date Cali Cordero MD [address] [place] [address] PCP - General Family Medicine 10/01/20 Juan A Pacheco DO [facility] [place] [address] Cardiology 10/02/22 Brian Colmenares MD 1 [place], [place] [phone] Home Care Provider Cardiovascular Surgery 10/19/22 Vern Mills APRN.TECHNICAL SUPPORT CONSULTANT [address] [place] [address] Referring Cardiothoracic Surgery 10/23/22 Linoleum Tile Layer Relationship Specialty Start Date End Date Cali Cordero MD [address] [place], [place] 982361 PCP - General Family Medicine 10/01/20 Juan A Pacheco DO [address] [place], [place] [phone] Cardiology 10/02/22 Brian Colmenares MD 1 [place], [place] [phone] Home Care Provider Cardiovascular Surgery 10/19/22 Vern Mills APRN.TECHNICAL SUPPORT CONSULTANT [address] [place], [place] [phone] Referring Cardiothoracic Surgery 10/23/22 Linoleum Tile Layer Relationship Specialty Start Date End Date Cali Cordero MD [address] [place], [place] 681031 PCP - General Family Medicine 10/01/20 Juan A Pacheco DO [address] [place] [address] Cardiology 10/02/22 Brian Colmenares MD 1 [place], [place] [phone] Home Care Provider Cardiovascular Surgery 10/19/22 Vern Mills APRN.TECHNICAL SUPPORT CONSULTANT [address] [place], [place] [phone] Referring Cardiothoracic Surgery 10/23/22 Ángela Rasmussen MD, MD [address] [place] [place] 9[address]191 Radiation Oncology 08/31/23 Linoleum Tile Layer Relationship Specialty Start Date End Date Cali Cordero MD [address] [place], [place] 057431 PCP - General Family Medicine 10/01/20 Juan A Pacheco DO [address] [place], [place] [phone] Cardiology 10/02/22 Brian Colmenares MD 1 [place], [place] [phone] Home Care Provider Cardiovascular Surgery 10/19/22 Vern Mills APRN.TECHNICAL SUPPORT CONSULTANT [address] [place], [place] [phone] Referring Cardiothoracic Surgery 10/23/22 Ángela Rasmussen MD, [address] [place], [place] [phone] Radiation Oncology 08/31/23 Team Status: Active Member Role Status Dates Dr. Cali Cordero MD Primary Care Provider Active Dr. Goldy Chavez MD Attending Provider Active Team Status: Inactive Member Role Status Dates Dr. Cali Cordero MD Primary Care Provider Active Dr. Roberto Harvey DO Attending Provider, Referr ing Provider Active Linoleum Tile Layer Relationship Specialty Start Date End Date Cali Cordero MD [address] [place], [place] 430381 PCP - General Family Medicine 10/01/20 Juan A Pacheco DO [address] [place], [place] [id number] Cardiology 10/02/22 Brian Colmenares MD 1 [place], [place] [phone] Home Care Provider Cardiovascular Surgery 10/19/22 Vern Mills APRN.TECHNICAL SUPPORT CONSULTANT [address] [place], [place] [phone] Referring Cardiothoracic Surgery 10/23/22 Ángela Rasmussen MD, MD [address] [place] [address] Radiation Oncology 08/31/23 Linoleum Tile Layer Relationship Specialty Start Date End Date Cali Cordero MD [address] [place] [address] PCP - General Family Medicine 10/01/20 Juan A Pacheco DO [address] [place] [address] Cardiology 10/02/22 Brian Colmenares MD 1 [place], [place] [phone] Home Care Provider Cardiovascular Surgery 10/19/22 Vern Mills APRN.TECHNICAL SUPPORT CONSULTANT [address] [place], [place] [id number] [phone] Referring Cardiothoracic Surgery 10/23/22 Ángela Rasmussen MD [address] [facility] [place] [address] Radiation Oncology 08/31/23 Linoleum Tile Layer Relationship Specialty Start Date End Date Cali Cordero MD [address] [place], [place] 935561 PCP - General Family Medicine 10/01/20 Juan A Pacheco DO [address] [place] [address] Cardiology 10/02/22 Brian Colmenares MD 1 [place], [place] [phone] Home Care Provider Cardiovascular Surgery 10/19/22 Vern Mills APRN.TECHNICAL SUPPORT CONSULTANT [address] [place], [place] [phone] Referring Cardiothoracic Surgery 10/23/22 Ángela Rasmussen MD [address] [place] [address] Radiation Oncology 08/31/23 Linoleum Tile Layer Relationship Specialty Start Date End Date Cali Cordero MD [address] [place] [address] PCP - General Family Medicine 10/01/20 Juan A Pacheco DO [address] [place] [address] Cardiology 10/02/22 Brian Colmenares MD 1 [place], [place] [id number] [phone] Home Care Provider Cardiovascular Surgery 10/19/22 Vern Mills APRN.TECHNICAL SUPPORT CONSULTANT [address] [place], [place] [phone] Referring Cardiothoracic Surgery 10/23/22 Ángela Rasmussen MD [address] [facility] [place] [address] Radiation Oncology 08/31/23 Linoleum Tile Layer Relationship Specialty Start Date End Date Cali Cordero MD [address] [place], [place] 380531 PCP - General Family Medicine 10/01/20 Juan A Pacheco DO [facility] [address] [place], [place] [phone] Cardiology 10/02/22 Brian Colmenares MD 1 [place], [place] [phone] Home Care Provider Cardiovascular Surgery 10/19/22 Vern Mills APRN.TECHNICAL SUPPORT CONSULTANT [address] [place], [place] [phone] Referring Cardiothoracic Surgery 10/23/22 Ángela Rasmussen MD [address] [place], [place] 362883 [phone] Radiation Oncology 08/31/23 Linoleum Tile Layer Relationship Specialty Start Date End Date Cali Cordero MD [address] [place], [place] 595881 PCP - General Family Medicine 10/01/20 Juan A Pacheco DO [address] [place], [place] [phone] Cardiology 10/02/22 Brian Colmenares MD 1 [place] [address] Home Care Provider Cardiovascular Surgery 10/19/22 Vern Mills APRN.TECHNICAL SUPPORT CONSULTANT [address] [place], [place] [phone] Referring Cardiothoracic Surgery 10/23/22 Ángela Rasmussen MD [address] [place] [address] Radiation Oncology 08/31/23 Linoleum Tile Layer Relationship Specialty Start Date End Date Cali Cordero MD [address] [place], [place] 735091 PCP - General Family Medicine 10/01/20 Juan A Pacheco DO [address] [place] [address] Cardiology 10/02/22 Brian Colmenares MD [address] [place], [place] [phone] Home Care Provider Cardiovascular Surgery 10/19/22 Vern Mills APRN.TECHNICAL SUPPORT CONSULTANT [address] [place] [address] Referring Cardiothoracic Surgery 10/23/22 Ángela Rasmussen MD [address] [place] [address] Radiation Oncology 08/31/23 Linoleum Tile Layer Relationship Specialty Start Date End Date Cali Cordero MD [address] [place] [address] PCP - General Family Medicine 10/01/20 Juan A Pacheco DO [address] [place], [place] [phone] Cardiology 10/02/22 Brian Colmenares MD [address] [place] [address] Home Care Provider Cardiovascular Surgery 10/19/22 Vern Mills APRN.TECHNICAL SUPPORT CONSULTANT [address] [place] [address] Referring Cardiothoracic Surgery 10/23/22 Ángela Rasmussen MD [address] [place] [address] Radiation Oncology 08/31/23 Linoleum Tile Layer Relationship Specialty Start Date End Date Cali Cordero MD [address] [place] [address] 515761 PCP - General Family Medicine 10/01/20 Juan A Pacheco DO [address] [place] [address] Cardiology 10/02/22 Brian Colmenares MD [address] [place] [address] Home Care Provider Cardiovascular Surgery 10/19/22 Vern Mills APRN.TECHNICAL SUPPORT CONSULTANT [address] [place], [place] [id number] [phone] Referring Cardiothoracic Surgery 10/23/22 Ángela Rasmussen MD [address] [place] [address] Radiation Oncology 08/31/23 Linoleum Tile Layer Relationship Specialty Start Date End Date Cali Cordero MD [address] [place], [place] 982371 PCP - General Family Medicine 10/01/20 Juan A Pacheco DO [address] [place], [place] [id number] Cardiology 10/02/22 Brian Colmenares MD 1 [place], [place] [phone] Home Care Provider Cardiovascular Surgery 10/19/22 Vern Mills APRN.TECHNICAL SUPPORT CONSULTANT [address] [place], [place] [phone] Referring Cardiothoracic Surgery 10/23/22 Ángela Rasmussen MD [address] [place] [address] Radiation Oncology 08/31/23 Linoleum Tile Layer Relationship Specialty Start Date End Date Cali Cordero MD [address] [place] [address] PCP - General Family Medicine 10/01/20 Juan A Pacheco DO [address] [place] [address] Cardiology 10/02/22 Brian Colmenares MD [address] [place], [place] 95310027 [phone] Home Care Provider Cardiovascular Surgery 10/19/22 Vern Mills APRN.TECHNICAL SUPPORT CONSULTANT [address] [place], [place] [phone] Referring Cardiothoracic Surgery 10/23/22 Ángela Rasmussen MD [address] [facility] [place] [address] Radiation Oncology 08/31/23 Linoleum Tile Layer Relationship Specialty Start Date End Date Cali Cordero MD [address] [place], [place] 942081 PCP - General Family Medicine 10/01/20 Juan A Pacheco DO [address] [place], [place] [id number] Cardiology 10/02/22 Brian Colmenares MD 1 [place], [place] [phone] Home Care Provider Cardiovascular Surgery 10/19/22 Vern Mills APRN.TECHNICAL SUPPORT CONSULTANT [address] [place], [place] [phone] Referring Cardiothoracic Surgery 10/23/22 Ángela Rasmussen MD [address] [place] [place] [address] Radiation Oncology 08/31/23 Linoleum Tile Layer Relationship Specialty Start Date End Date Cali Cordero MD [address] [place] [address] PCP - General Family Medicine 10/01/20 Juan A Pacheco DO [address] [place], [place] [id number] Cardiology 10/02/22 Brian Colmenares MD [address] [place], [place] [phone] Home Care Provider Cardiovascular Surgery 10/19/22 Vern Mills APRN.TECHNICAL SUPPORT CONSULTANT [address] [place], [place] [phone] Referring Cardiothoracic Surgery 10/23/22 Ángela Rasmussen MD [address] [facility] [place] [phone] Radiation Oncology 08/31/23 Linoleum Tile Layer Relationship Specialty Start Date End Date Cali Cordero MD [address] [facility] [address] [place], [place] [phone] PCP - General Family Medicine 07/01/23 Linoleum Tile Layer Relationship Specialty Start Date End Date Cali Cordero MD [address] [place], [place] [id number] PCP - General Family Medicine 10/01/20 Juan A Pacheco DO [address] [place], [place] [id number] Cardiology 10/02/22 Brian Colmenares MD 1 [place], [place] [phone] Home Care Provider Cardiovascular Surgery 10/19/22 Vern Mills APRN.TECHNICAL SUPPORT CONSULTANT [address] [place], [place] [phone] Referring Cardiothoracic Surgery 10/23/22 Ángela Rasmussen MD [address] [facility] [place] [phone] Radiation Oncology 08/31/23 Linoleum Tile Layer Relationship Specialty Start Date End Date Cali Cordero MD [address] [place], [place] 186771 PCP - General Family Medicine 10/01/20 Juan A Pacheco DO [address] [place], [place] [phone] Cardiology 10/02/22 Brian Colmenares MD [address] [place], [place] 31500607 [phone] Home Care Provider Cardiovascular Surgery 10/19/22 Vern Mills APRN.TECHNICAL SUPPORT CONSULTANT [address] [place], [place] [id number] [phone] Referring Cardiothoracic Surgery 10/23/22 Ángela Rasmussen MD [address] [place] [address] Radiation Oncology 08/31/23 Linoleum Tile Layer Relationship Specialty Start Date End Date Cali Cordero MD [address] [place] [address] PCP - General Family Medicine 10/01/20 Juan A Pacheoc DO [address] [place] [address] Cardiology 10/02/22 Brian Colmenares MD [address] [place], [place] [id number] [phone] Home Care Provider Cardiovascular Surgery 10/19/22 Vern Mills APRN.TECHNICAL SUPPORT CONSULTANT [address] [place], [place] [id number] [phone] Referring Cardiothoracic Surgery 10/23/22 Ángela Rasmussen MD [address] [place] [address] Radiation Oncology 08/31/23 Linoleum Tile Layer Relationship Specialty Start Date End Date Cali Cordero MD [address] [place] [address] PCP - General Family Medicine 10/01/20 Juan A Pacheco DO [address] [place], [place] [phone] Cardiology 10/02/22 Brian Colmenares MD [address] [place], [place] [phone] Home Care Provider Cardiovascular Surgery 10/19/22 eVrn Mills APRN.TECHNICAL SUPPORT CONSULTANT [address] [place], [place] [phone] Referring Cardiothoracic Surgery 10/23/22 Ángela Rasmussen MD [address] [place] [address] Radiation Oncology 08/31/23 Linoleum Tile Layer Relationship Specialty Start Date End Date Cali Cordero MD [address] [place] [address] PCP - General Family Medicine 10/01/20 Juan A Pacheco DO [address] [place], [place] [phone] Cardiology 10/02/22 Brian Colmenares MD [address] [place], [place] [phone] Home Care Provider Cardiovascular Surgery 10/19/22 Vern Mills APRN.TECHNICAL SUPPORT CONSULTANT [address] [place], [place] [phone] Referring Cardiothoracic Surgery 10/23/22 Ángela Rasmussen MD [address] [place] [address] Radiation Oncology 08/31/23 Linoleum Tile Layer Relationship Specialty Start Date End Date Cali Cordero MD [address] [place], [place] 391341 PCP - General Family Medicine 10/01/20 Juan A Pacheco DO [address] [place] [address] Cardiology 10/02/22 Brian Colmenares MD 1 [place], [place] [phone] Home Care Provider Cardiovascular Surgery 10/19/22 Vern Mills APRN.TECHNICAL SUPPORT CONSULTANT [address] [place] [address] Referring Cardiothoracic Surgery 10/23/22 Ángela Rasmussen MD [address] [place] [address] Radiation Oncology 08/31/23 Linoleum Tile Layer Relationship Specialty Start Date End Date Cali Cordero MD [address] [place] [address] PCP - General Family Medicine 10/01/20 Juan A Pacheco DO [address] [place] [address] Cardiology 10/02/22 Brian Colmenares MD 1 [place], [place] [phone] Home Care Provider Cardiovascular Surgery 10/19/22 Vern Mills APRN.TECHNICAL SUPPORT CONSULTANT [address] [place], [place] [id number] [phone] Referring Cardiothoracic Surgery 10/23/22 Ángela Rasmussen MD [address] [place] [address] Radiation Oncology 08/31/23 Linoleum Tile Layer Relationship Specialty [place] [address] [place] [address] PCP - General Family Medicine 10/01/20 Juan A Pacheco DO [address] [place] [address] Cardiology 10/02/22 Brian Colmenares MD 1 [place], [place] [phone] Home Care Provider Cardiovascular Surgery 10/19/22 Vern Mills OIL TREATER.TECHNICAL SUPPORT CONSULTANT [address] [place], [place] [phone] Referring Cardiothoracic Surgery 10/23/22 Ángela Rasmussen MD [address] [place] [address] Radiation Oncology 08/31/23 Linoleum Tile Layer Relationship Specialty Start Date End Date Cali Cordero MD [address] [place] [address] PCP - General Family Medicine 10/01/20 Juan A Pacheco DO [facility] [place] [address] Cardiology 10/02/22 Brian Colmenares MD [address] [place], [place] [phone] Home Care Provider Cardiovascular Surgery 10/19/22 Vern Mills APRN.TECHNICAL SUPPORT CONSULTANT [address] [place] [address] Referring Cardiothoracic Surgery 10/23/22 Ángela Rasmussen MD [facility] [address] [place], [place] 824201 Radiation Oncology 08/31/23 Linoleum Tile Layer Relationship Specialty Start Date End Date Cali Cordero MD [address] [place] [address] PCP - General Family Medicine 10/01/20 [address] DO [facility] [place] [address] Cardiology 10/02/22 Linoleum Tile Layer Relationship Specialty Start Date End Date Cali Cordero MD [address] [place], [place] 172891 PCP - General Family Medicine 10/01/20 Linoleum Tile Layer Relationship Specialty Start Date End Date Cali Cordero MD [address] [place], [place] 261991 PCP - General Family Medicine 10/01/20 Juan A Pacheco DO [address] [place], [place] [phone] Cardiology 10/02/22 Brian Colmenares MD [address] [place], [place] [phone] Home Care Provider Cardiovascular Surgery 10/19/22 Vern Mills APRN.TECHNICAL SUPPORT CONSULTANT [address] [place], [place] [phone] Referring Cardiothoracic Surgery 10/23/22 Ángela Rasmussen MD [address] [facility] [place] [address] Radiation Oncology 08/31/23 Linoleum Tile Layer Relationship Specialty Start Date End Date Cali Cordero MD [address] [place], [place] 677761 PCP - General Family Medicine 10/01/20 Juan A Pacheco DO [address] [place] [address] Cardiology 10/02/22 Brian Colmenares MD [address] [place], [place] [phone] Home Care Provider Cardiovascular Surgery 10/19/22 Vern Mills APRN.TECHNICAL SUPPORT CONSULTANT [address] [place], [place] [phone] Referring Cardiothoracic Surgery 10/23/22 Ángela Rasmussen MD [address] [facility] [place] [address] Radiation Oncology 08/31/23 Linoleum Tile Layer Relationship Specialty Start Date End Date Cali Cordero MD [address] [place], [place] 118691 PCP - General Family Medicine 10/01/20 Juan A Pacheco DO [address] [place] [address] Cardiology 10/02/22 Brian Colmenares MD [address] [place], [place] [phone] Home Care Provider Cardiovascular Surgery 10/19/22 Vern Mills APRN.TECHNICAL SUPPORT CONSULTANT [address] [place], [place] [phone] Referring Cardiothoracic Surgery 10/23/22 Ángela Rasmussen MD [address] [place] [address] Radiation Oncology 08/31/23 Linoleum Tile Layer Relationship Specialty Start Date End Date Cali Cordero MD [address] [place] [address] PCP - General Family Medicine 10/01/20 Juan A Pacheco DO [address] [place] [address] Cardiology 10/02/22 Brian Colmenares MD [address] [place], [place] 11823008 [phone] Home Care Provider Cardiovascular Surgery 10/19/22 Vern Mills APRN.TECHNICAL SUPPORT CONSULTANT [address] [place], [place] [phone] Referring Cardiothoracic Surgery 10/23/22 Ángela Rasmussen MD [address] [place] [address] Radiation Oncology 08/31/23 Linoleum Tile Layer Relationship Specialty Start Date End Date Cali Cordero MD [address] [place] [address] PCP - General Family Medicine 10/01/20 Juan A Pacheco DO [address] [place], [place] [phone] Cardiology 10/02/22 Brian Colmenares MD 1 [place], [place] [phone] Home Care Provider Cardiovascular Surgery 10/19/22 Vern Mills OIL TREATER.TECHNICAL SUPPORT CONSULTANT [address] [place] [address] Referring Cardiothoracic Surgery 10/23/22 Ángela Rasmussen MD [address] [facility] [place] [address] Radiation Oncology 08/31/23 Gerri Curry APRN.TECHNICAL SUPPORT CONSULTANT [address] [place] [address] Slunk Skin Curer Family Medicine 09/10/24 Linoleum Tile Layer Relationship Specialty Start Date End Date Cali Cordero MD [address] [place] [address] PCP - General Family Medicine 10/01/20 Juan A Pacheco DO [address] [place] [address] Cardiology 10/02/22 Brian Colmenares MD [address] [place] [address] Home Care Provider Cardiovascular Surgery 10/19/22 Vern Mills OIL TREATER.TECHNICAL SUPPORT CONSULTANT [address] [place], [place] [phone] Referring Cardiothoracic Surgery 10/23/22 Ángela Rasmussen MD [address] [place] [address] Radiation Oncology 08/31/23 Gerri Curry APRN.TECHNICAL SUPPORT CONSULTANT [address] [place] [address] Slunk Skin Curer Family Medicine 09/10/24 Linoleum Tile Layer Relationship Specialty Start Date End Date Cali Cordero MD [address] [place], [place] [phone] PCP - General Family Medicine 10/01/20 Juan A Pacheco DO [address] [place] [address] Cardiology 10/02/22 Brian Colmenares MD [address] [place], [place] [phone] Home Care Provider Cardiovascular Surgery 10/19/22 Vern Mills, OIL TREATER.TECHNICAL SUPPORT CONSULTANT [address] [place], [place] [phone] Referring Cardiothoracic Surgery 10/23/22 Ángela Rasmussen MD [address] [place] [address] Radiation Oncology 08/31/23 Gerri Curry, KATT.TECHNICAL SUPPORT CONSULTANT [address] [facility] [place] [place] [address] Slunk Skin Curer Family [facility] 09/10/24 Linoleum Tile Layer Relationship Specialty Start Date End Date Cali Cordero MD [address] [place], [place] 922361 PCP - General Family Medicine 10/01/20 Juan A Pacheco DO [address] [place] [address] Cardiology 10/02/22 Brian Colmenares MD 1 [place] [address] Home Care Provider Cardiovascular Surgery 10/19/22 Vern Mills APRN.TECHNICAL SUPPORT CONSULTANT [address] [place] [address] Referring Cardiothoracic Surgery 10/23/22 Ángela Rasmussen MD [address] [place] [address] Radiation Oncology 08/31/23 Gerri Curry, OIL TREATER.TECHNICAL SUPPORT CONSULTANT [address] [facility] [place] [place] [address] [facility] Linoleum Tile Layer Relationship Specialty Start Date End Date Cali Cordero MD [address] [place] [address] PCP - General Family Medicine 10/01/20 Juan A Pacheco DO [address] [place], [place] [id number] Cardiology 10/02/22 Brian Colmenares MD 1 [place], [place] [phone] Home Care Provider Cardiovascular Surgery 10/19/22 Vern Mills OIL TREATER.TECHNICAL SUPPORT CONSULTANT [address] [place], [place] [phone] Referring Cardiothoracic Surgery 10/23/22 Ángela Rasmussen MD [address] [place] [address] Radiation Oncology 08/31/23 Gerri Curry APRN.TECHNICAL SUPPORT CONSULTANT [address] [place] [address] Slunk Skin Curer Family Medicine 09/10/24 Linoleum Tile Layer Relationship Specialty Start Date End Date Cali Cordero MD [address] [place] [address] PCP - General Family Medicine 10/01/20 Juan A Pacheco DO [address] [place] [address] Cardiology 10/02/22 Brian Colmenares MD [address] [place], [place] [phone] Home Care Provider Cardiovascular Surgery 10/19/22 Vern Mills OIL TREATER.TECHNICAL SUPPORT CONSULTANT [address] [place], [place] [phone] Referring Cardiothoracic Surgery 10/23/22 Ángela Rasmussen MD [address] [place] [address] Radiation Oncology 08/31/23 Gerri Curry APRN.TECHNICAL SUPPORT CONSULTANT [address] [place] [address] Slunk Skin Curer Family [facility] 09/10/24 Linoleum Tile Layer Relationship Specialty Start Date End Date Cali Cordero MD [address] [place] [address] PCP - General Family Medicine 10/01/20 Juan A Pacheco DO [address] [place], [place] [phone] Cardiology 10/02/22 Brian Colmenares MD [address] [place], [place] [phone] Home Care Provider Cardiovascular Surgery 10/19/22 Vern Mills APRN.TECHNICAL SUPPORT CONSULTANT [address] [place], [place] [phone] Referring Cardiothoracic Surgery 10/23/22 Ángela Rasmussen MD [address] [place] [address] Radiation Oncology 08/31/23 Gerri Curry APRN.TECHNICAL SUPPORT CONSULTANT [address] [place] [address] Slunk Skin Curer Family [facility] 09/10/24 Robson Robertson APRN.TECHNICAL SUPPORT CONSULTANT [address] [place] [address] Slunk Skin Curer Family Medicine 09/19/24 Linoleum Tile Layer Relationship Specialty Start Date End Date Cali Cordero MD [address] [place] [address] PCP - General Family Medicine 10/01/20 Juan A Pacheco DO [address] [place] [address] Cardiology 10/02/22 Brian Colmenares MD [address] [place], [place] [phone] Home Care Provider Cardiovascular Surgery 10/19/22 Vern Mills, OIL TREATER.TECHNICAL SUPPORT CONSULTANT [address] [place], [place] [id number] Referring Cardiothoracic Surgery 10/23/22 Ángela Rasmussen MD [address] [place], [place] [address] Radiation Oncology 08/31/23 Gerri Curry, OIL TREATER.TECHNICAL SUPPORT CONSULTANT [address] [place] [address] Slunk Skin Curer Family Medicine 09/10/24 Robson Robertson, OIL TREATER.TECHNICAL SUPPORT CONSULTANT [address] [place] [address] Slunk Skin Curer Family Medicine 09/19/24 Linoleum Tile Layer Relationship Specialty Start Date End Date Cali Cordero MD [address] [place] [address] PCP - General Family Medicine 10/01/20 Juan A Pacheco DO [address] [place] [address] Cardiology 10/02/22 Brian Colmenares MD [address] [place], [place] [id number] Home Care Provider Cardiovascular Surgery 10/19/22 Vern Mills OIL TREATER.TECHNICAL SUPPORT CONSULTANT [address] [place], [place] [id number] Referring Cardiothoracic Surgery 10/23/22 Ángela Rasmussen MD [address] [place] [address] Radiation Oncology 08/31/23 Gerri Curry APRN.TECHNICAL SUPPORT CONSULTANT [address] [place] [address] Slunk Skin Curer Family Medicine 09/10/24 Robson Robertson APRN.TECHNICAL SUPPORT CONSULTANT [address] [place] [address] Slunk Skin Curer Family Medicine 09/19/24 Linoleum Tile Layer Relationship Specialty Start Date End Date Cali Cordero MD [address] [place] [address] PCP - General Family Medicine 10/01/20 Juan A Pacheco DO [address] [place] [address] Cardiology 10/02/22 Brian Colmenares MD [address] [place], [place] [id number] Home Care Provider Cardiovascular Surgery 10/19/22 Vern Mills OIL TREATER.TECHNICAL SUPPORT CONSULTANT [address] [place], [place] [id number] Referring Cardiothoracic Surgery 10/23/22 Ángela Rasmussen MD [address] [place] [address] Radiation Oncology 08/31/23 Gerri Curry OIL TREATER.TECHNICAL SUPPORT CONSULTANT [address] [place] [address] Slunk Skin Curer Family Medicine 09/10/24 Robson Robertson APRN.TECHNICAL SUPPORT CONSULTANT [address] [place] [address] Slunk Skin Curer Family Medicine 09/19/24 Linoleum Tile Layer Relationship Specialty Start Date End Date Cali Cordero MD [address] [place], [place] [id number] PCP - General Family Medicine 10/01/20 Juan A Pacheco DO [address], [place] [id number] Cardiology 10/02/22 Brian Colmenares MD [address] [place], [place] [phone] Home Care Provider Cardiovascular Surgery 10/19/22 Vern Mills OIL TREATER.TECHNICAL SUPPORT CONSULTANT [address] [place], [place] [id number] Referring Cardiothoracic Surgery 10/23/22 Ángela Rasmussen MD [address] [place] [address] Radiation Oncology 08/31/23 Gerri Curry APRN.TECHNICAL SUPPORT CONSULTANT [address] [place] [address] Slunk Skin Curer Family [facility] 09/10/24 Robson Robertson APRN.TECHNICAL SUPPORT CONSULTANT [address] [facility] [place] [address] [facility] 09/19/24 Linoleum Tile Layer Relationship Specialty Start Date End Date Cali Cordero MD [address] [facility] [place], [place] [id number] PCP - General Family Medicine 10/01/20 Juan A Pacheco DO [address], [place] [id number] Cardiology 10/02/22 Brian Colmenares MD [address] [place], [place] [phone] Home Care Provider Cardiovascular Surgery 10/19/22 Vern Mills APRN.TECHNICAL SUPPORT CONSULTANT [address] [place], [place] [id number] Referring Cardiothoracic Surgery 10/23/22 Ángela Rasmussen MD [address] [place], [place] [phone] Radiation Oncology 08/31/23 Gerri Curry APRN.TECHNICAL SUPPORT CONSULTANT [address] [facility] [place] [address] Slunk Skin Curer Family [facility] 09/10/24 Robson Robertson APRN.TECHNICAL SUPPORT CONSULTANT [address] [place] [address] Slunk Skin Curer Family Medicine 09/19/24 Linoleum Tile Layer Relationship Specialty Start Date End Date Cali Cordero MD [address] [place] [address] PCP - General Family Medicine 10/01/20 Juan A Pacheco DO [address] [place] [address] Cardiology 10/02/22 Brian Colmenares MD [address] [place] [address] Home Care Provider Cardiovascular Surgery 10/19/22 Vern Mills, OIL TREATER.TECHNICAL SUPPORT CONSULTANT [address] [place] [address] Referring Cardiothoracic Surgery 10/23/22 Ángela Rasmussen MD [address] [place], [place] [address] Radiation Oncology 08/31/23 Gerri Curry, OIL TREATER.TECHNICAL SUPPORT CONSULTANT [address] [place] [address] Slunk Skin Curer Family Medicine 09/10/24 Robson Robertson, OIL TREATER.TECHNICAL SUPPORT CONSULTANT [address] [place] [address] Slunk Skin Curer Family Medicine 09/19/24 Linoleum Tile Layer Relationship Specialty Start Date End Date Cali Cordero MD [address] [place] [address] PCP - General Family Medicine 10/01/20 Juan A Pacheco DO [address] [place] [address] Cardiology 10/02/22 Brian Colmenares MD [address] [place], [place] [phone] Home Care Provider Cardiovascular Surgery 10/19/22 Vern Mills OIL TREATER.TECHNICAL SUPPORT CONSULTANT [address] [place], [place] [phone] Referring Cardiothoracic Surgery 10/23/22 Ángela Rasmussen MD [address] [place] [address] Radiation Oncology 08/31/23 Gerri Curry, OIL TREATER.TECHNICAL SUPPORT CONSULTANT [address] [place] [address] Slunk Skin Curer Family Medicine 09/10/24 Robson Robertson OIL TREATER.TECHNICAL SUPPORT CONSULTANT [address] [place] [address] Slunk Skin Curer Family Medicine 09/19/24 Linoleum Tile Layer Relationship Specialty Start Date End Date Cali Cordero MD [address] [place] [address] PCP - General Family Medicine 10/01/20 Juan A Pacheco DO [address] [place] [address] Cardiology 10/02/22 Brian Colmenares MD [address] [place], [place] [phone] Home Care Provider Cardiovascular Surgery 10/19/22 Vern Mills OIL TREATER.TECHNICAL SUPPORT CONSULTANT [address] [place] [address] Referring Cardiothoracic Surgery 10/23/22 Ángela Rasmussen MD [address] [place], [place] [phone] Radiation Oncology 08/31/23 Gerri Curry, OIL TREATER.TECHNICAL SUPPORT CONSULTANT [address] [place], [place] [address] Slunk Skin Curer Family Medicine 09/10/24 Robson Robertson OIL TREATER.TECHNICAL SUPPORT CONSULTANT [address] [place], [place] [phone] Slunk Skin Curer Family [facility] 09/19/24 Team Status: Inactive Member Role Status Dates Dr. Cali Cordero MD Primary Care Provider Active Start: February 27, 2025 End: February 27, 2025 Dr. Cali Cordero MD Referring Provider Active Start: February 27, 2025 End: February 27, 2025 LENNOX Harrell Attending Provider Active Start: February 27, 2025 End: February 27, 2025 Team Status: Inactive Member Role Status Dates Dr. Cali Cordero MD Primary Care Provider Active Start: March 01, 2025 End: March 01, 2025 LENNOX Harrell Attending Provider Active Start: March 01, 2025 End: March 01, 2025 LENNOX Harrell Referring Provider Active Start: March 01, 2025 End: March 01, 2025 Linoleum Tile Layer Relationship Specialty Start Date End Date Cali Cordero MD [address] [place], [place] [phone] PCP - General Family Medicine 10/01/20 Juan A Pacheco DO [address], [place] [phone] Cardiology 10/02/22 Vern Mills OIL TREATER.TECHNICAL SUPPORT CONSULTANT [address] [place] [address] Referring Cardiothoracic Surgery 10/23/22 Ángela Rasmussen MD [address] [place] [address] Radiation Oncology 08/31/23 Robson Robertson APRN.TECHNICAL SUPPORT CONSULTANT [address] [place] [address] Slunk Skin Curer Family Medicine 09/19/24 Linoleum Tile Layer Relationship Specialty Start Date End Date Cali Cordero MD [address] [place] [address] PCP - General Family Medicine 10/01/20 Juan A Pacheco DO [address], [place] [phone] Cardiology 10/02/22 Vern Mills OIL TREATER.TECHNICAL SUPPORT CONSULTANT [address] [place] [address] Referring Cardiothoracic Surgery 10/23/22 Ángela Rasmussen MD [address] [place] [address] Radiation Oncology 08/31/23 Robson Robertson APRN.TECHNICAL SUPPORT CONSULTANT [address] [place] [address] Slunk Skin Curer Family Medicine 09/19/24 Linoleum Tile Layer Relationship Specialty Start Date End Date Cali Cordero MD [address] [place], [place] [address] PCP - General Family Medicine 10/01/20 Juan A Pacheco DO [address] [place] [address] Cardiology 10/02/22 Vern [place], OIL TREATER.TECHNICAL SUPPORT CONSULTANT [address] [place] [address] Referring Cardiothoracic Surgery 10/23/22 Ángela Rasmussen MD [address] [place], [place] [address] [phone] Radiation Oncology 08/31/23 Robson Robertson APRN.TECHNICAL SUPPORT CONSULTANT [address] [place] [address] Slunk Skin Curer Family Medicine 09/19/24 Linoleum Tile Layer Relationship Specialty Start Date End Date Cali Cordero MD [address] [place] [address] PCP - General Family Medicine 10/01/20 Juan A Pacheco DO [address] [place] [address] Cardiology 10/02/22 Vern Mills, OIL TREATER.TECHNICAL SUPPORT CONSULTANT [address] [place], [place] [phone] Referring Cardiothoracic Surgery 10/23/22 Ángela Rasmussen MD [address] [place], [place] [phone] Radiation Oncology 08/31/23 Marcelo RobsonKATT singletary.TECHNICAL SUPPORT CONSULTANT [address] [place] [address] Slunk Skin Curer Family Medicine 09/19/24 Team Status: Active Member Role/Relationship Status Dates Dr. Jess Curry MD Family Provider Active Dr. Cali Cordero MD Primary Care Provider Active Team Status: Inactive Member Role/Relationship Status Dates Dr. Cali Cordero MD Primary Care Provider Active Start: February 27, 2025 End: February 27, 2025 Dr. Cali Cordero MD Referring Provider Active Start: February 27, 2025 End: February 27, 2025 LENNOX Harrell Attending Provider Active Start: February 27, 2025 End: February 27, 2025 Team Status: Inactive Member Role/Relationship Status Dates Dr. Cali Cordero MD Primary Care Provider Active Start: March 01, 2025 End: March 01, 2025 LENNOX Harrell Attending Provider Active Start: March 01, 2025 End: March 01, 2025 LENNOX Harrell Referring Provider Active Start: March 01, 2025 End: March 01, 2025 Team Status: Inactive Member Role/Relationship Status Dates Dr. Cali Cordero MD Primary Care Provider Active Start: April 04, 2025 End: April 04, 2025 LENNOX Harrell Attending Provider Active Start: April 04, 2025 End: April 04, 2025 LENNOX Harrell Referring Provider Active Start: April 04, 2025 End: April 04, 2025 Team Status: Inactive Member Role/Relationship Status Dates Dr. Cali Cordero MD Primary Care Provider Active Start: May 01, 2025 End: May 01, 2025 Dr. Cali Cordero MD Referring Provider Active Start: May 01, 2025 End: May 01, 2025 LENNOX Harrell Attending Provider Active Start: May 01, 2025 End: May 01, 2025 Linoleum Tile Layer Relationship Specialty Start Date End Date Cali Cordero MD [address] [place], [place] [address] PCP - General Family Medicine 10/01/20 Juan A Pacheco DO [address] [place] [address] Cardiology 10/02/22 Vern Mills APRN.TECHNICAL SUPPORT CONSULTANT [address] [place] [address] Referring Cardiothoracic Surgery 10/23/22 Ángela Rasmussen MD [address] [place], [place] [phone] Radiation Oncology 08/31/23 Robson Robertson APRN.TECHNICAL SUPPORT CONSULTANT [address] [place], [place] [id number] Slunk Skin Curer Family Medicine 09/19/24 Team Status: Active Member Role/Relationship Status Dates Dr. Cali Cordero MD Primary Care Provider Active Team Status: Inactive Member Role/Relationship Status Dates Dr. Cali Cordero MD Primary Care Provider Active Start: May 08, 2025 End: May 08, 2025 LENNOX Harrell Attending Provider Active Start: May 08, 2025 End: May 08, 2025 LENNOX Harrell Referring Provider Active Start: May 08, 2025 End: May 08, 2025 Linoleum Tile Layer Relationship Specialty Start Date End Date Cali Cordero MD [address] [place], [place] [id number] PCP - General Family Medicine 10/01/20 Juan A Pacheco DO [address] [place] [address] Cardiology 10/02/22 Vern Mills, OIL TREATER.TECHNICAL SUPPORT CONSULTANT [address] [place] [address] Referring Cardiothoracic Surgery 10/23/22 Ángela Rasmussen MD [address] [place] [address] Radiation Oncology 08/31/23 Robson Robertson OIL TREATER.TECHNICAL SUPPORT CONSULTANT [address] [place] [address] Slunk Skin Curer Family Medicine 09/19/24 Linoleum Tile Layer Relationship Specialty Start Date End Date Cali Cordero MD [address] [place], [place] [address]85- PCP - General Family Medicine 10/01/20 Juan A Pacheco DO [address] [place] [address] Cardiology 10/02/22 Vern Mills OIL TREATER.TECHNICAL SUPPORT CONSULTANT [address] [place] [address] Referring Cardiothoracic Surgery 10/23/22 Ángela Rasmussen MD [address] [facility] [place] [place] [address] Radiation Oncology 08/31/23 Robson Robertson OIL TREATER.TECHNICAL SUPPORT CONSULTANT [address] [place] [address] Slunk Skin Curer Family Medicine 09/19/24 Linoleum Tile Layer Relationship Specialty Start Date End Date Cali Cordero MD [address] [place] [address] PCP - General Family Medicine 10/01/20 Juan A Pacheco DO [address] [place] [address] Cardiology 10/02/22 Vern Mills OIL TREATER.TECHNICAL SUPPORT CONSULTANT [address] [place] [address] Referring Cardiothoracic Surgery 10/23/22 Ángela Rasmussen MD [address] [place] [place], [place] [address] Radiation Oncology 08/31/23 Robson Robertson APRN.TECHNICAL SUPPORT CONSULTANT [address] [place], [place] [address] Slunk Skin Curer Family Medicine 09/19/24 Jania Pozo MD [address] [place], [place] [id number] Urology 05/25/25 Linoleum Tile Layer Relationship Specialty Start Date End Date Cali Cordero MD [address] [place], [place] [address]211 PCP - General Family Medicine 10/01/20 Juan A Pacheco DO [facility] [place] [address] Cardiology 10/02/22 Vern Mills, OIL TREATER.TECHNICAL SUPPORT CONSULTANT [address] [place] [address] Referring Cardiothoracic Surgery 10/23/22 Ángela Rasmussen MD [address] [place] [address] Radiation Oncology 08/31/23 Robson Robertson OIL TREATER.TECHNICAL SUPPORT CONSULTANT [address] [place] [address] Slunk Skin Curer Family [facility] 09/19/24 Jania Pozo MD [address] [place] [address] Urology 05/25/25 Linoleum Tile Layer Relationship Specialty Start Date End Date Cali Cordero MD [address] [place], [place] [id number] PCP - General Family Medicine 10/01/20 Juan A Pacheco DO [address], [place] [phone] Cardiology 10/02/22 Vern Mills OIL TREATER.TECHNICAL SUPPORT CONSULTANT [address] [place] [address] Referring Cardiothoracic Surgery 10/23/22 Ángela Rasmussen MD [address] [place], [place] [phone] Radiation Oncology 08/31/23 Robson Robertson, OIL TREATER.TECHNICAL SUPPORT CONSULTANT [address] [place], [place] [address] [facility] 09/19/24 Jania Pozo MD [address] [place], [place] [id number] Urology 05/25/25 Linoleum Tile Layer Relationship Specialty Start Date End Date Cali Cordero MD [address] [place], [place] [address]361 PCP - General Family Medicine 10/01/20 Juan A Pacheco DO [address] [place] [address] Cardiology 10/02/22 Vern [place], OIL TREATER.TECHNICAL SUPPORT CONSULTANT [address] [place] [address] Referring Cardiothoracic Surgery 10/23/22 Ángela Rasmussen MD [address] [place], [place] [id number] Radiation Oncology 08/31/23 Robson Robertson APRN.TECHNICAL SUPPORT CONSULTANT [address] [place], [place] [address] Slunk Skin Curer Family Medicine 09/19/24 Jania Pozo MD [address] [place] [address] Urology 05/25/25 Scheduled Active and Recently Administ ered Medications (unrecognized section and content) Medication Order 06/08/2022 06/09/2022 06/10/2022 sodium chloride 0.9 % (flush) 3-5 mL (BD POSIFLUSH) 3-5 mL, INTRAVENOUS, EVERY 12 HOURS, First dose on Wed06/10/22 at 1100, Until Discontinued, Flush intermittent device with 3-5 mL of normal saline each shift or after each use 1100 (Due) PRN Medication Order 06/08/2022 06/09/2022 06/10/2022 atropine 0.4 mg injection 0.4 mg, INTRAVENOUS, PRN(NO DISPENSE), Starting on Wed06/10/22 at 1049, Until Rivka 06/11/22 at 0304, See admin instructions, Give for symptomatic bradycardia (less than 50 beats per minute) and notify physician fentaNYL 50 mcg/mL injection (SUBLIMAZE) X (OR/PROCEDURE) PRN, Starting on Wed06/10/22 at 0959, Until Rivka 06/11/22 at 0304, Intraprocedure 0959 (Given - Provid er: Wili Slade RN) midazolam (PF) injection (VERSED) X (OR/PROCEDURE) PRN, Starting on Wed06/10/22 at 1000, Until Rivka 06/11/22 at 0304, Intraprocedure 1000 (Given - Provid er: Wili Slade RN) NaCl 0.9% iv flush bag 20 mL, INTRAVENOUS, NEEDED, Starting on Wed06/10/22 at 1049, Until Rivka 06/11/22 at 0304, See admin instructions, If no compatible primary is already running, infuse NaCl 0.9% as primary to flush tubing after non-chemotherapy, non-immunotherapy intermittent infusions. Administer at the same rate as intermittent infusion. Select the Flush Bag file on smart pump. nitroglycerin sublingual 0.4 mg tab(s) (NITROQUICK) 0.4 mg, SUBLINGUAL, EVERY 5 MINUTES NEEDED, Starting on Wed06/10/22 at 1049, Until Wed06/11/22 at 0304, chest pain, MAY GIVE EVERY 5 MINUTES X 3 DOSES -- NOTIFY PHYSICIAN IF CHEST PAIN IS NOT RELIEVED WITH [address] tablet under tongue and allow to dissolve; do not chew or break. Goals (unrecognized section and content) Goals may be documented in a n alternate sectionGoals may be documented in an alternate sectionGoals may be documented in an alternate sectionGoals may be documented in an alternate sectionGoals may be documented in an alternate sectionGoals may be documented in an alternate sectionGoals may be documented in an alternate sectionGoals may be documented in an alternate section (unrecognized sect ion and content) No Status Records FoundNo Status Records FoundNo Status Records FoundNo Status Records FoundNo Status Records FoundNo Status Records Found INFORMATION SOURCE (unrecogn ized section and content) DATE CREATED AUTHOR 08/03/2023 [facility] DATE CREATED AUTHOR AUTHOR'S ORGANIZ ATION 02/23/2024 [facility] DATE CREATED AUTHOR AUTHOR'S ORGANIZ ATION 09/20/2024 [facility] DATE CREATED AUTHOR AUTHOR'S ORGANIZ ATION 05/27/2025 [facility] DATE CREATED AUTHOR AUTHOR'S ORGANIZ ATION 08/02/2025 [facility] DATE CREATED AUTHOR AUTHOR'S ORGANIZ ATION 08/14/2025 [facility] FOR RECORDS PERTAINING TO PATIENTS WHO ARE OR HAVE BEEN ENROLLED IN A CHEMICAL DEPENDENCY/SUBSTANCEABUSE PROGRAM, SOME INFORMATION MAY BE OMITTED. This clinical summary was aggregated from multiple sources. Caution should be exercised in using it in the provision of clinical care. This summary normalizes information from multiple sources, and as a consequence, information in this document may materially change the coding, format and clinical context of patient data. In addition, data may be omitted in some cases. CLINICAL DECISIONS SHOULD BE BASED ON THE PRIMARY CLINICAL RECORDS. [facility] [employer] [facility]. provides no warranty or guarantee of the accuracy or completeness of information in this document.
--- NOTE | 2025-09-22 09:54 | CT_ITS ---
PROCEDURE: LOW DOSE CT LUNG SCREENING 09/22/2025 REASON FOR EXAM: SMOKER TECHNIQUE: Procedure Code: [id number] Modality: CT Procedure: LOW DOSE CT LUNG SCREENING No contrast was administered. Low-dose technique was utilized. 1.25 mm axial source images with a slice interval of 1.25 mm were reconstructed in lung windows. Coronal and sagittal reconstruction images were also obtained. One or more dose reduction techniques were used (e.g., Automated exposure control, adjustment of the mA and/or kV according to patient size, use of iterative reconstruction technique). REFERENCE LINK: [employer] Lung-RADS RADIATION DOSE SUMMARY: CTDlvol: 4.02 mGy DLP: 145.97 mGycm COMPARISON: low-dose CT lung screening dated 09/21/2024. FINDINGS: PULMONARY NODULES: (Only nodules >3mm are reported) Pulmonary Nodules: No pulmonary nodules are demonstrated. Hardware:Unremarkable. Lymph Nodes:Prominent pretracheal lymph node axial image 108 measuring 1.8 x 1.9 cm. Heart and Vasculature:Unremarkable. Mild atherosclerotic calcific disease. Coronary Artery Calcifications: Extensive coronary artery calcifications. Status post CABG. Lungs and Airways: Mild emphysematous changes again noted in the lingular segment of the left upper lobe. Pleura:Unremarkable. Upper Abdomen:Unremarkable. Bones:Sternotomy wires. Mild multilevel spondylosis. CT/Low Dose CT Lung Screening IMPRESSION: Lung-RADS category 2- Continue annual screening with LDCT in 12 months. Mild stable centrilobular emphysematous change, left lung. Status post CABG. Mild multilevel spondylosis. Reading Location: [place] [address]
== END | disposition home or self-care (01) ==
LOC: CT 09:48
PROVIDERS: PCP Family Medicine; Referring Provider Nurse Practitioner Acute Care; Visit Provider Nurse Practitioner Acute Care
DX: Z12.2 Encounter for screening for malignant neoplasm of respiratory organs (principal); F17.210 Nicotine dependence, cigarettes, uncomplicated
CPT/HCPCS: 71271